=== PATIENT | female | born 1945 | race Caucasian/White ===

== ENCOUNTER 2020-02-02 09:35 | Outpatient (REF) | payer MEDICARE, OTHER, SELFPAY ==
[2020-02-02 11:00] LABS: MANUAL DIFF FLAG NO
[2020-02-02 11:08] LABS: Basophils Percent Auto 0.4 % (0-2); Eosinophils Absolute Auto 0.2 X10*3/uL (0.0-0.4); Eosinophils Percent Auto 1.8 % (0-4); Hematocrit 32.1 % (37-47); Hemoglobin 9.8 g/dl (12.0-16.0); Imm Gran Abs Auto 0.07 X10*3/uL (0.00-0.03); Imm Gran Pct Auto 0.6 % (0.0-0.4); Mean Corpuscular HGB Conc 30.5 g/dl (31.0-35.0); Mean Corpuscular Hemoglobin 27.8 pg (27.0-33.0); Mean Corpuscular Volume 91.2 fL (80-98); Monocytes Absolute Auto 0.7 X10*3/uL (0.1-1.2); Monocytes Percent Auto 6.3 % (2-11); Neutrophils Absolute Auto 7.9 X10*3/uL (2.0-8.3); Neutrophils Percent Auto 72.9 % (45-73); Platelet Count 402 X10*3/uL (160-400); Red Blood Count 3.52 X10*6/uL (4.20-5.50); Red Cell Distribution Width 17.4 % (11.0-16.0); White Blood Count 10.8 X10*3/uL (4.8-10.8)
[2020-02-02 11:32] LABS: Estimated Average Glucose 212 mg/dL
[2020-02-02 11:50] LABS: Alanine Aminotransferase 25 U/L (0-31); Albumin Level 3.7 g/dL (3.5-5.0); Alkaline Phosphatase 100 U/L (39-117); Anion Gap 14 (12-20); Aspartate Amino Transferase 39 U/L (5-31); Bilirubin Total 0.4 mg/dL (0.0-1.0); Blood Urea Nitrogen 18 mg/dL (9-16); Calcium 9.4 mg/dL (8.4-10.2); Carbon Dioxide 32 mmol/L (22-29); Chloride 97 mmol/L (96-108); Cholesterol 136 mg/dL; Estimated Glomerular Filt Rate 53; Glucose Fasting 135 mg/dL (60-99); HDL Cholesterol 41 mg/dL; LDL Cholesterol Calculated 70 mg/dl; Potassium 4.2 mmol/l (3.3-5.1); Sodium 139 mmol/L (135-145); Total Protein 7.3 g/dL (6.5-8.0); Triglycerides 128 mg/dL
[2020-02-02 12:14] LABS: Thyroid Stimulating Hormone 2.52 mIU/mL (0.32-4.0)
[2020-02-02 12:21] LABS: Creatinine Urine 33.88 mg/dL; Microalbum/Creatinine Ratio Ur 32.4 ug/mg cr
[2020-02-02 14:31] LABS: Reflex LDLD? No
[2020-02-02 14:54] LABS: Appearance Urine HAZY; Color Urine STRAW
[2020-02-02 15:03] LABS: RBC Urine 0 /HPF (0); Triple Phosphate Crystal Urine 1+ /LPF; WBC Urine 0 /HPF (0-4)
== END 2020-02-02 09:36 | disposition home or self-care (01) ==
LOC: HO.LAB 09:35
PROVIDERS: PCP Internal Medicine; Visit Provider Internal Medicine
DX: E11.9 Type 2 diabetes mellitus without complications (principal); E03.9 Hypothyroidism, unspecified; I35.0 Nonrheumatic aortic (valve) stenosis; I10 Essential (primary) hypertension; E78.00 Pure hypercholesterolemia, unspecified; K21.9 Gastro-esophageal reflux disease without esophagitis; E66.01 Morbid (severe) obesity due to excess calories; I50.21 Acute systolic (congestive) heart failure; E83.52 Hypercalcemia; Z87.448 Personal history of other diseases of urinary system
CPT/HCPCS: 36415; 80053; 80061; 81003; 81015; 82043; 83036; 84443; 85025

== ENCOUNTER → 2020-05-19 10:39 | Outpatient (BNVA) | payer MEDICARE, OTHER, SELFPAY | PROVIDERS: PCP Internal Medicine; Visit Provider Internal Medicine Cardiovascular Disease | DX: I50.30 Unspecified diastolic (congestive) heart failure (principal); R06.00 Dyspnea, unspecified; I35.0 Nonrheumatic aortic (valve) stenosis | CPT/HCPCS: 93005; 99212 ==

== ENCOUNTER → 2020-06-17 12:43 | Outpatient (BNVA) | payer MEDICARE, OTHER, SELFPAY | PROVIDERS: PCP Internal Medicine; Visit Provider Internal Medicine Cardiovascular Disease | DX: I50.33 Acute on chronic diastolic (congestive) heart failure (principal); I35.0 Nonrheumatic aortic (valve) stenosis | CPT/HCPCS: 99212 ==

== ENCOUNTER 2020-06-24 08:40 | Outpatient (REF) | payer MEDICARE, OTHER, SELFPAY ==
--- NOTE | 2020-06-24 17:24 | PFT_ITS ---
Forced vital capacity is markedly decreased. FEV1 also markedly decreased, but FEV1/FVC ratio is normal. [id number] and MVV are slightly decreased. This patient declined to have bronchodilator challenge with albuterol updraft. Forced vital capacity and residual volume are moderately decreased. Diffusion capacity is markedly decreased. CONCLUSION: These results indicate that there is no significant obstructive airway disorder. There is a moderate degree of restrictive pulmonary disorder. Clinical correlation is recommended. MD SUMAYA Bray/MICHELLE / [phone]
== END 2020-06-24 08:41 | disposition home or self-care (01) ==
LOC: HO.RESP 08:40
PROVIDERS: PCP Internal Medicine; Visit Provider Hospitalist
DX: R06.00 Dyspnea, unspecified (principal)
CPT/HCPCS: 94010; 94727; 94729; 99212

== ENCOUNTER 2020-07-12 13:51 | Outpatient (REF) | payer MEDICARE, OTHER, SELFPAY ==
[2020-07-12 14:33] LABS: Anion Gap 11 (12-20); Blood Urea Nitrogen 19 mg/dL (9-16); Calcium 9.2 mg/dL (8.4-10.2); Carbon Dioxide 36 mmol/L (22-29); Chloride 96 mmol/L (96-108); Estimated Glomerular Filt Rate 51; Glucose Random 202 mg/dL (60-115); Potassium 3.9 mmol/L (3.3-5.1); Sodium 139 mmol/L (135-145)
== END 2020-07-12 13:52 | disposition home or self-care (01) ==
LOC: HO.LAB 13:51
PROVIDERS: PCP Internal Medicine; Visit Provider Hospitalist
DX: J04.10 Acute tracheitis without obstruction (principal); J98.4 Other disorders of lung; G47.33 Obstructive sleep apnea (adult) (pediatric); I35.0 Nonrheumatic aortic (valve) stenosis; I50.30 Unspecified diastolic (congestive) heart failure; R06.00 Dyspnea, unspecified; Z87.891 Personal history of nicotine dependence; Z88.8 Allergy status to other drugs, medicaments and biological substances; Z99.89 Dependence on other enabling machines and devices
CPT/HCPCS: 36415; 80048; 99212

== ENCOUNTER → 2020-07-19 15:26 | Outpatient (BNVA) | payer MEDICARE, OTHER, SELFPAY | PROVIDERS: PCP Internal Medicine; Visit Provider Internal Medicine Cardiovascular Disease | DX: I35.0 Nonrheumatic aortic (valve) stenosis (principal); I50.33 Acute on chronic diastolic (congestive) heart failure | CPT/HCPCS: 99212 ==

== ENCOUNTER 2020-07-20 09:31 | Outpatient (REF) | payer MEDICARE, OTHER, SELFPAY ==
--- NOTE | ~2020-07-20 | CT_ITS ---
EXAMINATION: CT SOFT TISSUE NECK WITH CONTRAST CLINICAL INFORMATION: Acute tracheitis without obstruction. COMPARISON: None. TECHNIQUE: Following the intravenous administration of 100 mL of Omnipaque 350 intravenous contrast, helical imaging was performed in the axial plane with generation of coronal and sagittal reformatted images. This CT examination was performed using dose optimization techniques as appropriate, variously including the following: *Automated exposure control *Adjustment of mA and/or kV according to patient size (this includes techniques or standardized protocols for targeted exams where dose is matched to indication/reason for exam; i.e. extremities or head) *Use of iterative reconstruction technique DLP: 357 mGy-cm. FINDINGS: No cervical adenopathy is identified. The parotid glands are homogeneous in attenuation. The submandibular glands are normal. No contour abnormality or pathologic enhancement is seen within the oral cavity or pharyngeal mucosal space. The laryngeal structures are normal. Trachea is widely patent. There is no tracheal or bronchial wall thickening. The parapharyngeal fat is preserved. The carotid sheath vasculature opacify normally. No extra mucosal soft tissue mass or fluid collection is seen. No retropharyngeal fluid collection is seen. The thyroid gland is normal. The superior mediastinum is unremarkable. The lung apices are clear. The mastoid air cells and visualized portions of the paranasal sinuses are well-aerated. The temporomandibular joints are normal. No periapical disease is identified. There is grade 1 anterolisthesis C3 over C4 and C4 over C5 with C5-C6 and C6-C7 fusion. The imaged portions of the brain parenchyma are unremarkable. CT/CT soft tissue neck w con IMPRESSION: Unremarkable trachea and bifurcation. The rest of the CT soft tissue neck appears unremarkable.
== END 2020-07-20 09:32 | disposition home or self-care (01) ==
LOC: HO.CT 09:31
PROVIDERS: PCP Internal Medicine; Visit Provider Hospitalist
DX: J04.10 Acute tracheitis without obstruction (principal); J98.4 Other disorders of lung; R06.00 Dyspnea, unspecified
CPT/HCPCS: 70491; Q9967

== ENCOUNTER 2020-08-13 10:08 | Outpatient (REF) | payer MEDICARE, OTHER, SELFPAY ==
[2020-08-13 11:01] LABS: Estimated Average Glucose 189 mg/dL; Hemoglobin A1C 151.5113 umol/L; Hemoglobin A1c % 8.2 %
[2020-08-13 11:09] LABS: Glucose Fasting 179 mg/dL (60-99)
== END 2020-08-13 10:09 | disposition home or self-care (01) ==
LOC: HO.LNP 10:08
PROVIDERS: Visit Provider Internal Medicine
DX: E11.9 Type 2 diabetes mellitus without complications (principal)
CPT/HCPCS: 82947; 83036

== ENCOUNTER → 2020-08-30 10:44 | Outpatient (BNVA) | payer MEDICARE, OTHER, SELFPAY | PROVIDERS: PCP Internal Medicine; Referring Provider Internal Medicine; Visit Provider Internal Medicine Cardiovascular Disease | DX: I50.33 Acute on chronic diastolic (congestive) heart failure (principal); I35.0 Nonrheumatic aortic (valve) stenosis | CPT/HCPCS: 99212 ==

== ENCOUNTER → 2020-09-01 11:00 | Outpatient (BNVA) | payer MEDICARE, OTHER, SELFPAY | PROVIDERS: PCP Internal Medicine; Visit Provider Hospitalist | DX: G47.33 Obstructive sleep apnea (adult) (pediatric) (principal); J98.4 Other disorders of lung; I35.0 Nonrheumatic aortic (valve) stenosis; J45.40 Moderate persistent asthma, uncomplicated; Z99.89 Dependence on other enabling machines and devices | CPT/HCPCS: 99212 ==

== ENCOUNTER 2020-10-07 15:32 | Outpatient (REF) | payer MEDICARE, OTHER, SELFPAY ==
[2020-10-07 15:50] LABS: MANUAL DIFF FLAG NO
[2020-10-07 15:53] LABS: Basophils Percent Auto 0.4 % (0-2); Eosinophils Absolute Auto 0.3 X10*3/uL (0.0-0.4); Eosinophils Percent Auto 2.6 % (0-4); Hematocrit 28.2 % (37-47); Hemoglobin 8.2 g/dl (12.0-16.0); Imm Gran Abs Auto 0.07 X10*3/uL (0.00-0.03); Imm Gran Pct Auto 0.6 % (0.0-0.4); Lymphocytes Absolute Auto 1.4 X10*3/uL (1.2-4.9); Lymphocytes Percent Auto 12.6 % (20-40); Mean Corpuscular HGB Conc 29.1 g/dl (31.0-35.0); Mean Corpuscular Hemoglobin 25.9 pg (27.0-33.0); Mean Platelet Volume 9.9 fL (9.4-12.3); Monocytes Absolute Auto 0.8 X10*3/uL (0.1-1.2); Monocytes Percent Auto 6.8 % (2-11); Neutrophils Absolute Auto 8.8 X10*3/uL (2.0-8.3); Platelet Count 405 X10*3/uL (160-400); Red Blood Count 3.17 X10*6/uL (4.20-5.50); Red Cell Distribution Width 18.2 % (11.0-16.0); White Blood Count 11.4 X10*3/uL (4.8-10.8)
[2020-10-07 16:18] LABS: Iron 36 mcg/dL (30-160); Percent Iron Saturation 10 % (15-50); Total Iron Binding Capacity 367 mcg/dL (228-428); Unsaturated Iron Binding 331 ug/dL
[2020-10-07 16:59] LABS: Folate 19.6 ng/mL (> or = 4.0); Vitamin B12 945 pg/mL (200-900)
== END 2020-10-07 15:33 | disposition home or self-care (01) ==
LOC: HO.LNP 15:32
PROVIDERS: Visit Provider Internal Medicine
DX: D50.0 Iron deficiency anemia secondary to blood loss (chronic) (principal)
CPT/HCPCS: 82607; 82746; 83540; 85025

== ENCOUNTER 2020-12-09 16:46 | Outpatient (REF) | payer MEDICARE, OTHER, SELFPAY ==
[2020-12-09 17:35] LABS: Iron 49 mcg/dL (30-160)
[2020-12-09 18:24] LABS: Percent Iron Saturation 15 % (15-50); Total Iron Binding Capacity 327 mcg/dL (228-428); Unsaturated Iron Binding 278 ug/dL
== END 2020-12-09 16:47 | disposition home or self-care (01) ==
LOC: HO.LNP 16:46
PROVIDERS: Visit Provider Internal Medicine
DX: E61.1 Iron deficiency (principal)
CPT/HCPCS: 83540

== ENCOUNTER → 2020-12-14 10:55 | Outpatient (BNVA) | payer MEDICARE, OTHER, SELFPAY | PROVIDERS: PCP Internal Medicine; Visit Provider Hospitalist | DX: J45.40 Moderate persistent asthma, uncomplicated (principal); J98.4 Other disorders of lung; G47.33 Obstructive sleep apnea (adult) (pediatric); Z99.89 Dependence on other enabling machines and devices; I35.0 Nonrheumatic aortic (valve) stenosis | CPT/HCPCS: 99212 ==

== ENCOUNTER 2021-02-01 10:45 | Outpatient (REF) | payer MEDICARE, OTHER, SELFPAY ==
[2021-02-01 10:48] LABS: MANUAL DIFF FLAG NO
[2021-02-01 11:13] LABS: Basophils Absolute Auto 0.1 X10*3/uL (0.0-0.2); Basophils Percent Auto 0.5 % (0-2); Eosinophils Absolute Auto 0.2 X10*3/uL (0.0-0.4); Eosinophils Percent Auto 2.2 % (0-4); Hematocrit 38.6 % (37-47); Imm Gran Abs Auto 0.04 X10*3/uL (0.00-0.03); Imm Gran Pct Auto 0.4 % (0.0-0.4); Lymphocytes Absolute Auto 1.8 X10*3/uL (1.2-4.9); Lymphocytes Percent Auto 17.8 % (20-40); Mean Corpuscular HGB Conc 31.1 g/dl (31.0-35.0); Mean Corpuscular Hemoglobin 30.2 pg (27.0-33.0); Mean Platelet Volume 10.4 fL (9.4-12.3); Monocytes Absolute Auto 0.7 X10*3/uL (0.1-1.2); Monocytes Percent Auto 6.6 % (2-11); Neutrophils Absolute Auto 7.1 X10*3/uL (2.0-8.3); Neutrophils Percent Auto 72.5 % (45-73); Platelet Count 327 X10*3/uL (160-400); Red Blood Count 3.98 X10*6/uL (4.20-5.50); Red Cell Distribution Width 16.8 % (11.0-16.0); White Blood Count 9.8 X10*3/uL (4.8-10.8)
[2021-02-01 11:21] LABS: Estimated Average Glucose 192 mg/dL; Hemoglobin A1c % 8.3 %
[2021-02-01 11:36] LABS: Alanine Aminotransferase 27 U/L (0-31); Albumin Level 3.8 g/dL (3.5-5.0); Alkaline Phosphatase 94 U/L (39-117); Anion Gap 15 (12-20); Aspartate Amino Transferase 31 U/L (5-31); Bilirubin Total 0.4 mg/dL (0.0-1.0); Blood Urea Nitrogen 23 mg/dL (9-16); Calcium 9.5 mg/dL (8.4-10.2); Carbon Dioxide 33 mmol/L (22-29); Chloride 97 mmol/L (96-108); Cholesterol 154 mg/dL; Estimated Glomerular Filt Rate 47; Glucose Fasting 118 mg/dL (60-99); HDL Cholesterol 43 mg/dL; LDL Cholesterol Calculated 88 mg/dl; Potassium 3.7 mmol/L (3.3-5.1); Sodium 141 mmol/L (135-145); Total Protein 7.4 g/dL (6.5-8.0); Triglycerides 115 mg/dL
[2021-02-01 11:45] LABS: TSH reflex Free T4 4.28 uIU/mL (0.32-4.0)
[2021-02-01 12:25] LABS: Creatinine Urine 58.96 mg/dL; Microalbum/Creatinine Ratio Ur 27.1 ug/mg cr
== END 2021-02-01 10:46 | disposition home or self-care (01) ==
LOC: HO.LNP 10:45
PROVIDERS: Visit Provider Internal Medicine
DX: E11.9 Type 2 diabetes mellitus without complications (principal); E03.9 Hypothyroidism, unspecified; I35.9 Nonrheumatic aortic valve disorder, unspecified; I10 Essential (primary) hypertension; E78.00 Pure hypercholesterolemia, unspecified
CPT/HCPCS: 80053; 80061; 81003; 82043; 83036; 84439; 84443; 85025

== ENCOUNTER → 2021-05-12 10:21 | Outpatient (BNVA) | payer MEDICARE, OTHER, SELFPAY | PROVIDERS: PCP Internal Medicine; Visit Provider Internal Medicine | DX: Z51.81 Encounter for therapeutic drug level monitoring (principal); M48.062 Spinal stenosis, lumbar region with neurogenic claudication; M19.011 Primary osteoarthritis, right shoulder; M19.012 Primary osteoarthritis, left shoulder; M10.9 Gout, unspecified; G89.4 Chronic pain syndrome; Z98.1 Arthrodesis status | CPT/HCPCS: 99202 ==

== ENCOUNTER → 2021-05-23 12:53 | Outpatient (BNVA) | payer MEDICARE, OTHER, SELFPAY | PROVIDERS: PCP Internal Medicine; Visit Provider Hospitalist | DX: G47.33 Obstructive sleep apnea (adult) (pediatric) (principal); J98.4 Other disorders of lung; J45.40 Moderate persistent asthma, uncomplicated; I35.0 Nonrheumatic aortic (valve) stenosis; Z99.89 Dependence on other enabling machines and devices | CPT/HCPCS: 99212 ==

== ENCOUNTER → 2021-05-27 08:31 | Outpatient (BNVA) | payer MEDICARE, OTHER, SELFPAY | PROVIDERS: PCP Internal Medicine; Visit Provider Internal Medicine | DX: Z51.81 Encounter for therapeutic drug level monitoring (principal); F11.20 Opioid dependence, uncomplicated; M48.062 Spinal stenosis, lumbar region with neurogenic claudication; G89.4 Chronic pain syndrome; Z98.1 Arthrodesis status | CPT/HCPCS: 99212 ==

== ENCOUNTER → 2021-06-23 08:03 | Outpatient (BNVA) | payer MEDICARE, OTHER, SELFPAY | PROVIDERS: PCP Internal Medicine; Visit Provider Internal Medicine | DX: Z51.81 Encounter for therapeutic drug level monitoring (principal); F11.20 Opioid dependence, uncomplicated | CPT/HCPCS: 99211 ==

== ENCOUNTER 2021-06-23 09:17 | Outpatient (REF) | payer MEDICARE, OTHER, SELFPAY ==
[2021-06-24 20:37] LABS: SARS-COV-2 IgG Spike, Semi-Qnt 21.42 index (<1.00)
[2021-06-24 22:42] LABS: Immunoglobulin E 389 kU/L (<OR=114)
== END 2021-06-23 09:18 | disposition home or self-care (01) ==
LOC: HO.10HDL 09:17
PROVIDERS: Absent Provider Internal Medicine; Visit Provider Hospitalist
DX: J45.40 Moderate persistent asthma, uncomplicated (principal); Z20.822 Contact with and (suspected) exposure to COVID-19
CPT/HCPCS: 36415; 82785; 86769; 99211

== ENCOUNTER → 2021-07-18 10:54 | Outpatient (BNVA) | payer MEDICARE, OTHER, SELFPAY | PROVIDERS: PCP Internal Medicine; Visit Provider Internal Medicine | DX: Z51.81 Encounter for therapeutic drug level monitoring (principal); F11.20 Opioid dependence, uncomplicated; M48.062 Spinal stenosis, lumbar region with neurogenic claudication; G89.4 Chronic pain syndrome; Z98.1 Arthrodesis status | CPT/HCPCS: 99212 ==

== ENCOUNTER → 2021-08-11 12:46 | Outpatient (BNVA) | payer MEDICARE, OTHER, SELFPAY | PROVIDERS: PCP Internal Medicine; Visit Provider Internal Medicine | DX: Z51.81 Encounter for therapeutic drug level monitoring (principal); F11.20 Opioid dependence, uncomplicated | CPT/HCPCS: 99211 ==

== ENCOUNTER → 2021-09-12 11:36 | Outpatient (BNVA) | payer MEDICARE, OTHER, SELFPAY | PROVIDERS: PCP Internal Medicine; Visit Provider Internal Medicine | DX: Z51.81 Encounter for therapeutic drug level monitoring (principal); F11.20 Opioid dependence, uncomplicated; M47.816 Spondylosis without myelopathy or radiculopathy, lumbar region; G89.4 Chronic pain syndrome | CPT/HCPCS: 99212 ==

== ENCOUNTER → 2021-09-22 08:54 | Outpatient (BNVA) | payer MEDICARE, OTHER, SELFPAY | PROVIDERS: PCP Internal Medicine; Visit Provider Hospitalist | DX: J45.40 Moderate persistent asthma, uncomplicated (principal); J98.4 Other disorders of lung; G47.33 Obstructive sleep apnea (adult) (pediatric); I35.0 Nonrheumatic aortic (valve) stenosis; Z79.899 Other long term (current) drug therapy; Z99.89 Dependence on other enabling machines and devices | CPT/HCPCS: 99212 ==

== ENCOUNTER → 2021-10-10 10:47 | Outpatient (BNVA) | payer MEDICARE, OTHER, SELFPAY | PROVIDERS: PCP Internal Medicine; Visit Provider Internal Medicine | DX: G89.4 Chronic pain syndrome (principal); M47.816 Spondylosis without myelopathy or radiculopathy, lumbar region; M19.011 Primary osteoarthritis, right shoulder; M19.012 Primary osteoarthritis, left shoulder; Z79.891 Long term (current) use of opiate analgesic; Z98.1 Arthrodesis status | CPT/HCPCS: 99212 ==

== ENCOUNTER 2021-10-26 06:21 | Outpatient (REF) | payer MEDICARE, OTHER, SELFPAY ==
--- NOTE | ~2021-10-26 | FL_ITS ---
EXAMINATION: XR FLUOROSCOPY WITH IMAGES CLINICAL INFORMATION: M47.816 - Spondylosis without myelopathy or radiculopathy, lumbar region COMPARISON: MR lumbar spine 11/05/2021 TECHNIQUE: Fluoroscopy performed by pain management physician. Fluoroscopy time: 45 target Cumulative dose: 36.88 mGy Images: 4 FINDINGS: There are spinal needles overlying the outer right L3, L4, and L5 neural foramen and outer left L5 foramen. There is contrast seen in the respective nerve sheaths. Some early transforaminal epidural extension is suggested. No visible vascular communication. FL/FL guidance in treatment room IMPRESSION: Fluoroscopy for pain management procedures.
[2021-10-26 10:54] LABS: MANUAL DIFF FLAG NO
[2021-10-26 11:40] LABS: Basophils Percent Auto 0.3 % (0-2); Eosinophils Absolute Auto 0.3 X10*3/uL (0.0-0.4); Eosinophils Percent Auto 2.1 % (0-4); Hematocrit 37.5 % (37.0-47.0); Hemoglobin 12.4 g/dl (12.0-16.0); Imm Gran Abs Auto 0.07 X10*3/uL (0.00-0.03); Imm Gran Pct Auto 0.5 % (0.0-0.4); Lymphocytes Absolute Auto 1.6 X10*3/uL (1.2-4.9); Lymphocytes Percent Auto 12.5 % (20-40); Mean Corpuscular HGB Conc 33.1 g/dl (31.0-35.0); Mean Corpuscular Hemoglobin 33.3 pg (27.0-33.0); Mean Corpuscular Volume 100.8 fL (80.0-98.0); Mean Platelet Volume 10.5 fL (9.4-12.3); Monocytes Absolute Auto 0.8 X10*3/uL (0.1-1.2); Monocytes Percent Auto 5.8 % (2-11); Neutrophils Absolute Auto 10.2 x10*3/uL (2.0-8.3); Neutrophils Percent Auto 78.8 % (45-73); Platelet Count 289 X10*3/uL (160-400); Red Blood Count 3.72 X10*6/uL (4.20-5.50)
== END 2021-10-26 06:22 | disposition home or self-care (01) ==
LOC: HO.RADIR 06:21
PROVIDERS: Hospitalist; Visit Provider Internal Medicine
DX: M47.816 Spondylosis without myelopathy or radiculopathy, lumbar region (principal); R06.00 Dyspnea, unspecified
CPT/HCPCS: 36415; 64493; 64494; 85025

== ENCOUNTER → 2021-10-28 11:13 | Outpatient (BNVA) | payer MEDICARE, OTHER, SELFPAY | PROVIDERS: PCP Internal Medicine; Visit Provider Internal Medicine | DX: M48.062 Spinal stenosis, lumbar region with neurogenic claudication (principal); M19.011 Primary osteoarthritis, right shoulder; M19.012 Primary osteoarthritis, left shoulder; M54.16 Radiculopathy, lumbar region; Z79.891 Long term (current) use of opiate analgesic; Z98.1 Arthrodesis status | CPT/HCPCS: 99212 ==

== ENCOUNTER 2021-11-25 06:16 | Outpatient (REF) | payer MEDICARE, OTHER, SELFPAY ==
--- NOTE | ~2021-11-25 | FL_ITS ---
EXAMINATION: XR FLUOROSCOPY WITH IMAGES CLINICAL INFORMATION: M54.16 - Radiculopathy, lumbar region COMPARISON: MR lumbar spine 06/08/2021 TECHNIQUE: Fluoroscopy performed by Dr. Hector Scherer. Fluoroscopy time: 0.5 minutes. Cumulative Dose: 38.5 mGy. DAP: 0.595 mGy-cm2. Images: 5. FINDINGS: There is spinal needle at the mid lumbar interlaminar space. Epidural contrast is present. No intrathecal contrast or vascular communication demonstrated. There are degenerative changes lumbar spine with disc narrowing and vertebral spurring. FL/FL guidance in treatment room IMPRESSION: Fluoroscopy for pain management procedure.
== END 2021-11-25 06:17 | disposition home or self-care (01) ==
LOC: HO.RADIR 06:16
PROVIDERS: Visit Provider Internal Medicine
DX: M54.16 Radiculopathy, lumbar region (principal)
CPT/HCPCS: 62323; J1040; J1100

== ENCOUNTER 2022-01-20 12:18 | Outpatient (REF) | payer MEDICARE, OTHER, SELFPAY ==
[2022-01-20 12:48] LABS: MANUAL DIFF FLAG NO
[2022-01-20 13:02] LABS: Basophils Percent Auto 0.4 % (0-2); Eosinophils Absolute Auto 0.2 X10*3/uL (0.0-0.4); Eosinophils Percent Auto 2.4 % (0-4); Hematocrit 36.8 % (37.0-47.0); Hemoglobin 11.7 g/dl (12.0-16.0); Imm Gran Abs Auto 0.06 X10*3/uL (0.00-0.03); Imm Gran Pct Auto 0.6 % (0.0-0.4); Lymphocytes Absolute Auto 1.6 X10*3/uL (1.2-4.9); Lymphocytes Percent Auto 16.5 % (20-40); Mean Corpuscular HGB Conc 31.8 g/dl (31.0-35.0); Mean Corpuscular Hemoglobin 32.2 pg (27.0-33.0); Mean Corpuscular Volume 101.4 fL (80.0-98.0); Monocytes Absolute Auto 0.7 X10*3/uL (0.1-1.2); Monocytes Percent Auto 7.6 % (2-11); Neutrophils Percent Auto 72.5 % (45-73); Platelet Count 282 X10*3/uL (160-400); Red Blood Count 3.63 X10*6/uL (4.20-5.50); Red Cell Distribution Width 15.2 % (11.0-16.0); White Blood Count 9.7 X10*3/uL (4.8-10.8)
[2022-01-20 13:27] LABS: Albumin Level 3.5 g/dL (3.5-5.0); Anion Gap 17 (12-20); Blood Urea Nitrogen 19 mg/dL (9-16); Calcium 9.5 mg/dL (8.4-10.2); Carbon Dioxide 29 mmol/L (22-29); Chloride 96 mmol/L (96-108); Estimated Glomerular Filt Rate 37; Magnesium 1.9 mg/dL (1.6-2.6); Phosphorus 3.4 mg/dL (2.7-4.5); Sodium 138 mmol/L (135-145)
[2022-01-20 13:48] LABS: Vitamin D 25-OH Total 30.5 ng/mL (>30)
[2022-01-20 13:51] LABS: Appearance Urine Clear; Color Urine Yellow; Glucose Urine UA Negative (Negative); Leukocyte Esterase Urine Small (1+) (Negative); Nitrite Urine Negative (Negative); Specific Gravity - Urine 1.015 (1.005-1.025); UMIC TRIGGER UA YES; Urine Blood Negative (Negative); Urine Ketones Negative (Negative); Urine Protein Negative (Neg-Trace)
[2022-01-20 14:07] LABS: Bacteria Urine Trace (None Seen); RBC Urine 0-2 /HPF (0-2); WBC Urine 0-5 /HPF (0-5)
[2022-01-20 14:23] LABS: Creatinine Urine 101.47 mg/dL; Microalbum/Creatinine Ratio Ur 39.4 ug/mg cr; Protein/Creatinine Ratio, Ur 0.11 (<0.2); Total Protein Urine Random 11 mg/dL (<12)
[2022-01-23 17:25] LABS: Calcium (PTHI) 9.5 mg/dL (8.6-10.4); PTHI 112 pg/mL (16-77)
== END 2022-01-20 12:19 | disposition home or self-care (01) ==
LOC: HO.LAB 12:18
PROVIDERS: PCP Internal Medicine; Visit Provider Internal Medicine Nephrology
DX: I50.1 Left ventricular failure, unspecified (principal); N18.2 Chronic kidney disease, stage 2 (mild)
CPT/HCPCS: 36415; 80051; 81001; 82040; 82043; 82306; 82310; 82565; 83735; 83970; 84100; 84156; 84520; 85025; 87086

== ENCOUNTER 2022-02-07 10:58 | Outpatient (REF) | payer MEDICARE, OTHER, SELFPAY ==
[2022-02-07 11:05] LABS: MANUAL DIFF FLAG NO
[2022-02-07 11:45] LABS: Cholesterol 177 mg/dL; HDL Cholesterol 47 mg/dL; Iron 68 mcg/dL (30-160); LDL Cholesterol Calculated 95 mg/dl; Percent Iron Saturation 21 % (15-50); Total Iron Binding Capacity 328 mcg/dL (228-428); Triglycerides 177 mg/dL; Unsaturated Iron Binding 260 ug/dL
[2022-02-07 11:51] LABS: Estimated Average Glucose 209 mg/dL; Hemoglobin A1c % 8.9 %
[2022-02-07 12:06] LABS: Basophils Absolute Auto 0.1 X10*3/uL (0.0-0.2); Basophils Percent Auto 0.5 % (0-2); Eosinophils Absolute Auto 0.4 X10*3/uL (0.0-0.4); Eosinophils Percent Auto 3.2 % (0-4); Hematocrit 38.9 % (37.0-47.0); Hemoglobin 12.3 g/dl (12.0-16.0); Imm Gran Abs Auto 0.05 X10*3/uL (0.00-0.03); Imm Gran Pct Auto 0.4 % (0.0-0.4); Lymphocytes Absolute Auto 3.8 X10*3/uL (1.2-4.9); Lymphocytes Percent Auto 30.9 % (20-40); Mean Corpuscular HGB Conc 31.6 g/dl (31.0-35.0); Mean Corpuscular Hemoglobin 32.3 pg (27.0-33.0); Mean Corpuscular Volume 102.1 fL (80.0-98.0); Mean Platelet Volume 10.4 fL (9.4-12.3); Monocytes Percent Auto 7.7 % (2-11); Neutrophils Absolute Auto 7.1 x10*3/uL (2.0-8.3); Neutrophils Percent Auto 57.3 % (45-73); Platelet Count 319 X10*3/uL (160-400); Red Blood Count 3.81 X10*6/uL (4.20-5.50); Red Cell Distribution Width 14.9 % (11.0-16.0); White Blood Count 12.4 X10*3/uL (4.8-10.8)
== END 2022-02-07 10:59 | disposition home or self-care (01) ==
LOC: HO.LNP 10:58
PROVIDERS: Visit Provider Internal Medicine
DX: Z00.00 Encounter for general adult medical examination without abnormal findings (principal); E03.9 Hypothyroidism, unspecified; E11.9 Type 2 diabetes mellitus without complications; E78.00 Pure hypercholesterolemia, unspecified; I11.0 Hypertensive heart disease with heart failure; I50.21 Acute systolic (congestive) heart failure; E55.9 Vitamin D deficiency, unspecified; D50.0 Iron deficiency anemia secondary to blood loss (chronic)
CPT/HCPCS: 80061; 83036; 83540; 85025

== ENCOUNTER 2022-02-08 06:13 | Outpatient (REF) | payer MEDICARE, OTHER, SELFPAY ==
--- NOTE | ~2022-02-08 | FL_ITS ---
EXAMINATION: XR FLUOROSCOPY WITH IMAGES CLINICAL INFORMATION: Bilateral trochanteric bursitis, left and right hips. COMPARISON: None. TECHNIQUE: Fluoroscopy performed by Dr. Hector Scherer. Fluoroscopy time bilateral exam: 1.3 minutes. Cumulative Dose bilateral exam: 32.9 mGy. DAP bilateral exam: 4.32 Gy-cm2. Images: 2 views on left; 2 views on right. Total of 4 views. FINDINGS: There are spinal needles overlying the caudal aspect of the bilateral greater trochanter with contrast seen in the adjacent soft tissues. No visible vascular communication. There are 2 views also obtained of the bilateral ischial tuberosities with contrast seen along soft tissue planes, possibly bilateral hamstrings. No visible vascular communication. FL/FL guidance in treatment room IMPRESSION: Fluoroscopy for pain management procedures.
--- NOTE | ~2022-02-08 | FL_ITS ---
EXAMINATION: XR FLUOROSCOPY WITH IMAGES CLINICAL INFORMATION: Bilateral trochanteric bursitis, left and right hips. COMPARISON: None. TECHNIQUE: Fluoroscopy performed by Dr. Hector Scherer. Fluoroscopy time bilateral exam: 1.3 minutes. Cumulative Dose bilateral exam: 32.9 mGy. DAP bilateral exam: 4.32 Gy-cm2. Images: 2 views on left; 2 views on right. Total of 4 views. FINDINGS: There are spinal needles overlying the caudal aspect of the bilateral greater trochanter with contrast seen in the adjacent soft tissues. No visible vascular communication. There are 2 views also obtained of the bilateral ischial tuberosities with contrast seen along soft tissue planes, possibly bilateral hamstrings. No visible vascular communication. FL/FL guidance in treatment room IMPRESSION: Fluoroscopy for pain management procedures.
== END 2022-02-08 06:14 | disposition home or self-care (01) ==
LOC: CF 06:13
PROVIDERS: Visit Provider Internal Medicine
DX: M70.61 Trochanteric bursitis, right hip (principal); M70.70 Other bursitis of hip, unspecified hip
CPT/HCPCS: 20610; J1020; J1040; J2795; J3300

== ENCOUNTER 2022-02-22 06:05 | Outpatient (REF) | payer MEDICARE, OTHER, SELFPAY ==
--- NOTE | ~2022-02-22 | FL_ITS ---
EXAMINATION: XR FLUOROSCOPY WITH IMAGES CLINICAL INFORMATION: Osteoarthritis right shoulder. COMPARISON: None. TECHNIQUE: Fluoroscopy performed by Dr. Hector Scherer. Fluoroscopy time: 0.1 minutes. Cumulative Dose: 2.95 mGy. DAP: 0.368 Gy-cm2. Images: 3. FINDINGS: Intraoperative C-arm imaging provided. On the provided imaging, there appears to be needle and contrast in the subcoracoid area and needle and contrast within the region of the acromioclavicular joint. FL/FL guidance in treatment room IMPRESSION: Fluoroscopy performed for pain management procedure.
--- NOTE | ~2022-02-22 | FL_ITS ---
EXAMINATION: XR FLUOROSCOPY WITH IMAGES CLINICAL INFORMATION: Osteoarthritis right shoulder. COMPARISON: None. TECHNIQUE: Fluoroscopy performed by Dr. Hector Scherer. Fluoroscopy time: 0.1 minutes. Cumulative Dose: 2.95 mGy. DAP: 0.368 Gy-cm2. Images: 3. FINDINGS: Intraoperative C-arm imaging provided. On the provided imaging, there appears to be needle and contrast in the subcoracoid area and needle and contrast within the region of the acromioclavicular joint. FL/FL guidance in treatment room IMPRESSION: Fluoroscopy performed for pain management procedure.
== END 2022-02-22 06:06 | disposition home or self-care (01) ==
LOC: CF 06:05
PROVIDERS: Visit Provider Internal Medicine
DX: M19.011 Primary osteoarthritis, right shoulder (principal); M19.012 Primary osteoarthritis, left shoulder
CPT/HCPCS: 64418

== ENCOUNTER 2022-02-23 11:18 | Outpatient (REF) | payer MEDICARE, OTHER, SELFPAY ==
[2022-02-23 11:38] LABS: Appearance Urine Clear; Color Urine Yellow; Glucose Urine UA Negative (Negative); Leukocyte Esterase Urine Trace (Negative); Nitrite Urine Negative (Negative); PH 6.5 (5.0-9.0); UMIC TRIGGER UA YES; Urine Blood Negative (Negative); Urine Ketones Negative (Negative); Urine Protein Negative (Neg-Trace)
[2022-02-23 11:41] LABS: Bacteria Urine None Seen (None Seen); Hyaline Casts Urine 0-2 /LPF (0-2); RBC Urine 0-2 /HPF (0-2); WBC Urine 0-5 /HPF (0-5)
[2022-02-23 13:09] LABS: Creatinine Urine 64.48 mg/dL; Microalbum/Creatinine Ratio Ur 7.7 ug/mg cr
== END 2022-02-23 11:19 | disposition home or self-care (01) ==
LOC: HO.LNP 11:18
PROVIDERS: Visit Provider Internal Medicine
DX: E11.9 Type 2 diabetes mellitus without complications (principal); I10 Essential (primary) hypertension
CPT/HCPCS: 81001; 82043

== ENCOUNTER → 2022-03-21 09:44 | Outpatient (BNVA) | payer MEDICARE, OTHER, SELFPAY | PROVIDERS: PCP Internal Medicine; Visit Provider Nurse Practitioner Family | DX: G89.4 Chronic pain syndrome (principal); Z98.1 Arthrodesis status; M19.011 Primary osteoarthritis, right shoulder; M19.012 Primary osteoarthritis, left shoulder; M54.16 Radiculopathy, lumbar region; M47.816 Spondylosis without myelopathy or radiculopathy, lumbar region | CPT/HCPCS: 99212 ==

== ENCOUNTER 2022-03-28 07:11 | Day surgery (SDC) | payer MEDICARE, OTHER, SELFPAY ==
--- NOTE | 2022-03-27 09:58 | HO.ANESPROP2 ---
Documented by User: Linda Stephens NP 03/27/22 10:10 HPI - Anesthesia Eval Consult details Narrative: 76yo F for Colonoscopy s/p TAVR at [facility] [place] 2020 - awaiting info chronic prn opioids Multiple med allergies PMFSH Active Problems Active Problems: All Active Problems (Updated 02/22/22 @ 11:35 by Hector Scherer MD) Bilateral shoulder pain (Acute) Ischial bursitis (Acute) Greater trochanteric bursitis of both hips (Acute) Lumbar radiculopathy (Acute) Dyspnea (Acute) Lumbar spondylosis (Acute) Chronic pain syndrome (Acute) Status post cervical spinal fusion (Acute) Gouty arthritis (Acute) Arthritis of both glenohumeral joints (Acute) Neurogenic claudication due to lumbar spinal stenosis (Acute) Asthma (Acute) CLEVE on CPAP (Acute) Chronic restrictive lung disease (Acute) Tracheitis (Acute) Severe aortic stenosis (Acute) Diastolic CHF (Acute) Dyspnea (Acute) Past Medical History Medical History Arthritis of both glenohumeral joints Asthma Chronic pain syndrome Chronic restrictive lung disease Dyspnea Dyspnea Gouty arthritis Neurogenic claudication due to lumbar spinal stenosis CLEVE on CPAP Tracheitis Family History Family History Father HTN (hypertension) Stroke Diabetes Mother Atrial fibrillation HTN (hypertension) Surgical History Surgical History History of cholecystectomy History of eyelid surgery History of knee replacement Status post cervical spinal fusion Social History Social History Patient Tobacco Use Status: Former Tobacco user Tobacco use type: Cigarette Years Smoked: 20 years Second Hand Smoke Exposure: No Use of substances other than those prescribed or required for medical reasons: No Are you DNR?: No Advance Directives: No Advance Directives Information Provided: Yes Advance Directives on File: No Meds Allergies Allergy/AdvReac Type Severity Reaction Status Date / Time cephalexin [From Keflex] Allergy Severe Itching Verified 03/21/22 09:56 pravastatin [Pravachol] Allergy Severe cramps Verified 03/21/22 09:56 bacitracin AdvReac Severe eye Verified 03/21/22 09:56 swelling dexamethasone [TobraDex] AdvReac Severe redness Verified 03/21/22 09:56 swelling tobramycin [TobraDex] AdvReac Severe redness Verified 03/21/22 09:56 swelling Sulfa (Sulfonamide AdvReac Intermediate GI upset Verified 03/21/22 09:56 Antibiotics) atorvastatin [From Lipitor] AdvReac Unknown Unverified 03/27/22 07:34 Beef Containing Products AdvReac Unknown Unverified 03/27/22 07:34 erythromycin base AdvReac Unknown Unverified 03/27/22 07:34 Penicillins [PCN] AdvReac Unknown Unverified 03/27/22 07:34 sulfacetamide AdvReac Unknown Unverified 03/27/22 07:34 [From Sulfacet-R] sulfur [From Sulfacet-R] AdvReac Unknown Unverified 03/27/22 07:34 topiramate [From Topamax] AdvReac Unknown Unverified 03/27/22 07:34 Home Medications Medication Instructions Recorded Confirmed Last Taken Type Saccharomyces boulardii 250 mg 250 mg PO BID 05/19/20 12/23/21 Unknown History capsule (Florastor) albuterol sulfate 90 mcg/actuation 2 puff PO Q4H 05/19/20 12/23/21 Unknown History aerosol inhaler atorvastatin 20 mg tablet 20 mg PO DAILY 05/19/20 12/23/21 Unknown History insulin glargine 100 unit/mL (3 unit subcut 05/19/20 12/23/21 Unknown History mL) subcutaneous pen levothyroxine 75 mcg tablet 75 mcg PO DAILY 05/19/20 12/23/21 Unknown History meclizine 25 mg tablet 25 mg PO BID PRN 05/19/20 12/23/21 Unknown History omeprazole 20 mg capsule,delayed 20 mg PO DAILY 05/19/20 12/23/21 Unknown History release cholecalciferol (vitamin D3) 25 25 mcg PO DAILY 06/24/20 12/23/21 Unknown History mcg (1,000 unit) capsule (Vitamin D3) fluticasone propionate 220 2 puff inhalation BID 06/24/20 12/23/21 Unknown History mcg/actuation HFA aerosol inhaler sitagliptin phosphate 100 mg tablet 100 mg PO DAILY 06/24/20 12/23/21 Unknown History tiotropium bromide 1.25 inhalation 06/24/20 12/23/21 Unknown History mcg/actuation mist for inhalation potassium chloride 10 mEq 10 meq PO BID 08/30/20 12/23/21 Unknown History tablet,extended release nystatin 100,000 unit/gram topical 1 appl topical BID 09/01/20 12/23/21 Unknown History powder allopurinol 100 mg tablet 100 mg PO DAILY 09/12/21 12/23/21 Unknown History mepolizumab 100 mg subcutaneous 100 mg subcut Q4W 09/12/21 12/23/21 Unknown History solution duloxetine 40 mg capsule,delayed 60 mg PO DAILY 09/22/21 12/23/21 Unknown History release gabapentin 400 mg capsule 400 mg PO BEDTIME 10/10/21 12/23/21 Unknown History valsartan 40 mg tablet mg PO 10/28/21 12/23/21 03/28/22 History gabapentin 100 mg capsule 100 mg PO .AM 12/23/21 12/23/21 Unknown History duloxetine 60 mg capsule,delayed 60 mg PO DAILY 03/21/22 Unknown History release Exam Exam Date and Time: March 27, 2022 0958 Pertinent Lab Results Pertinent Lab Results: Laboratory Tests 01/20/22 02/07/22 12:47 Unknown WBC 12.4 H Hgb 12.3 Hct 38.9 Plt Count 319 Sodium 138 Potassium 4.0 Chloride 96 Carbon Dioxide 29 BUN 19 H Creatinine 1.37 Assessment and Plan Assessment Anesthesia Assessment: Chart Reviewed Documented by User: Mac Alcantara MD 03/28/22 17:12 HPI - Anesthesia Eval Consult details Narrative: 76yo F for Colonoscopy s/p TAVR at [facility] [place] 2020 - chronic prn opioids Multiple med allergies PMFSH Past Medical History Medical History Arthritis of both glenohumeral joints Asthma Chronic pain syndrome Chronic restrictive lung disease Dyspnea Dyspnea Gouty arthritis Neurogenic claudication due to lumbar spinal stenosis CLEVE on CPAP Tracheitis Family History Family History Father HTN (hypertension) Stroke Diabetes Mother Atrial fibrillation HTN (hypertension) Family history of problems with anesthesia: No Surgical History Surgical History History of cholecystectomy History of eyelid surgery History of knee replacement Status post cervical spinal fusion History of Problems with Anesthesia: No Social History Social History Patient Tobacco Use Status: Former Tobacco user Tobacco use type: Cigarette Years Smoked: 20 years Second Hand Smoke Exposure: No Use of substances other than those prescribed or required for medical reasons: No Are you DNR?: No Advance Directives: No Advance Directives Information Provided: Yes Advance Directives on File: No Meds Allergies Allergy/AdvReac Type Severity Reaction Status Date / Time cephalexin [From Keflex] Allergy Severe Itching Verified 03/21/22 09:56 pravastatin [Pravachol] Allergy Severe cramps Verified 03/21/22 09:56 bacitracin AdvReac Severe eye Verified 03/21/22 09:56 swelling dexamethasone [TobraDex] AdvReac Severe redness Verified 03/21/22 09:56 swelling tobramycin [TobraDex] AdvReac Severe redness Verified 03/21/22 09:56 swelling Sulfa (Sulfonamide AdvReac Intermediate GI upset Verified 03/21/22 09:56 Antibiotics) atorvastatin [From Lipitor] AdvReac Unknown Unverified 03/27/22 07:34 Beef Containing Products AdvReac Unknown Unverified 03/27/22 07:34 erythromycin base AdvReac Unknown Unverified 03/27/22 07:34 Penicillins [PCN] AdvReac Unknown Unverified 03/27/22 07:34 sulfacetamide AdvReac Unknown Unverified 03/27/22 07:34 [From Sulfacet-R] sulfur [From Sulfacet-R] AdvReac Unknown Unverified 03/27/22 07:34 topiramate [From Topamax] AdvReac Unknown Unverified 03/27/22 07:34 Home Medications Medication Instructions Recorded Confirmed Last Taken Type Saccharomyces boulardii 250 mg 250 mg PO BID 05/19/20 12/23/21 Unknown History capsule (Florastor) albuterol sulfate 90 mcg/actuation 2 puff PO Q4H 05/19/20 12/23/21 Unknown History aerosol inhaler atorvastatin 20 mg tablet 20 mg PO DAILY 05/19/20 12/23/21 Unknown History insulin glargine 100 unit/mL (3 unit subcut 05/19/20 12/23/21 Unknown History mL) subcutaneous pen levothyroxine 75 mcg tablet 75 mcg PO DAILY 05/19/20 12/23/21 Unknown History meclizine 25 mg tablet 25 mg PO BID PRN 05/19/20 12/23/21 Unknown History omeprazole 20 mg capsule,delayed 20 mg PO DAILY 05/19/20 12/23/21 Unknown History release cholecalciferol (vitamin D3) 25 25 mcg PO DAILY 06/24/20 12/23/21 Unknown History mcg (1,000 unit) capsule (Vitamin D3) fluticasone propionate 220 2 puff inhalation BID 06/24/20 12/23/21 Unknown History mcg/actuation HFA aerosol inhaler sitagliptin phosphate 100 mg tablet 100 mg PO DAILY 06/24/20 12/23/21 Unknown History tiotropium bromide 1.25 inhalation 06/24/20 12/23/21 Unknown History mcg/actuation mist for inhalation potassium chloride 10 mEq 10 meq PO BID 08/30/20 12/23/21 Unknown History tablet,extended release nystatin 100,000 unit/gram topical 1 appl topical BID 09/01/20 12/23/21 Unknown History powder allopurinol 100 mg tablet 100 mg PO DAILY 09/12/21 12/23/21 Unknown History mepolizumab 100 mg subcutaneous 100 mg subcut Q4W 09/12/21 12/23/21 Unknown History solution duloxetine 40 mg capsule,delayed 60 mg PO DAILY 09/22/21 12/23/21 Unknown History release gabapentin 400 mg capsule 400 mg PO BEDTIME 10/10/21 12/23/21 Unknown History valsartan 40 mg tablet mg PO 10/28/21 12/23/21 03/28/22 History gabapentin 100 mg capsule 100 mg PO .AM 12/23/21 12/23/21 Unknown History duloxetine 60 mg capsule,delayed 60 mg PO DAILY 03/21/22 Unknown History release Exam Airway Mallampati Class: IV TM Dist: >3cm Neck ROM: Full Loose/Missing/Broken Teeth: Yes Heart: S1,S2 Lungs: b/l breath sounds Assessment and Plan Assessment Anesthesia Assessment: Anesthesia Plan Discussed Final Anesthetic Review Family History of Problems with Anesthesia: No History of Problems with Anesthesia: No NPO: Yes ASA Class: IV Final Preanesthetic Review: Meds/Allgs Chart Reviewed, Consent Obtained/Reviewed and DNR Form (If Appl.) Patient Risk: High Procedure Risk: Intermediate Anesthetic Plan Anesthetic Plan: MAC: Disposition: Standard PACU
[2022-03-28 07:20] VITALS: BMI 39.7
[2022-03-28 07:41] VITALS: BP 122/67; PULSE 100; RESP 18; TEMP 36.1; O2SAT 96
[2022-03-28 08:11] LABS: Glucose, Whole Blood 266 mg/dL (60-115)
--- NOTE | 2022-03-28 08:14 | PC.NURSE ---
patient POC 266, patient did not take 1/2 dose insulin last night states sugar was [address] Alcantara notified. orders received to give patient 100-150mL IVF and will recheck POC post operatively. Dr. Alcantara at bedside.
--- NOTE | 2022-03-28 08:35 | MHC.SHP ---
Pre-Procedural Eval Section A Date of Service: 03/28/22 Section B Chief Complaint: screening Details of Present Illness: see h&P Relevant Family History (Specify if Yes): No Relevant Social History: None Present Medications: see Short Stay Collaborative assessment Medical History: No relevant PMH History of Previous Operations: No relevant previous surgery Allergies: Allergies Allergy/AdvReac Type Severity Reaction Status Date / Time cephalexin [From Keflex] Allergy Severe Itching Verified 03/21/22 09:56 pravastatin [Pravachol] Allergy Severe cramps Verified 03/21/22 09:56 bacitracin AdvReac Severe eye Verified 03/21/22 09:56 swelling dexamethasone [TobraDex] AdvReac Severe redness Verified 03/21/22 09:56 swelling tobramycin [TobraDex] AdvReac Severe redness Verified 03/21/22 09:56 swelling Sulfa (Sulfonamide AdvReac Intermediate GI upset Verified 03/21/22 09:56 Antibiotics) atorvastatin [From Lipitor] AdvReac Unknown Unverified 03/27/22 07:34 Beef Containing Products AdvReac Unknown Unverified 03/27/22 07:34 erythromycin base AdvReac Unknown Unverified 03/27/22 07:34 Penicillins [PCN] AdvReac Unknown Unverified 03/27/22 07:34 sulfacetamide AdvReac Unknown Unverified 03/27/22 07:34 [From Sulfacet-R] sulfur [From Sulfacet-R] AdvReac Unknown Unverified 03/27/22 07:34 topiramate [From Topamax] AdvReac Unknown Unverified 03/27/22 07:34 Review of Systems Sugical H&P ROS: Negative: Constitution, Cardiovascular, Respiratory, Neurological, Psychiatric, Hem-Onc, Allergic/Immunologic, Gastrointestinal, Genitourinary, Musculoskeletal, Integumentary, Endocrine and Eyes/Ears/Nose/Throat Exam Surgical H&P Exam: Normal: HEENT, Normal: Heart, Normal: Lungs, Normal: Extremities, Normal: Abdomen, Normal: Skin and Normal: Neurological Plan Diagnosis/Plan: Unchanged I have reviewed the history and physical and performed a pertinent physical examination on my patient. No changes have occurred unless specified.
--- NOTE | 2022-03-28 09:17 | PM.OP ---
Brief Operative Note Date of Service: 03/28/22 Pre-op diagnosis: screening Post-op diagnosis: same Procedure: colo Surgeon: Vj Abdi Anesthesia: MAC Was an Construction And Maintenance Inspector used for this Procedure?: No Estimated blood loss (mL): 5 Pathology: other Condition: stable Disposition: PACU
[2022-03-28 09:18] VITALS: BP 101/48; PULSE 87; RESP 16; TEMP 36.4; O2SAT 94
--- NOTE | 2022-03-28 09:30 | OP_ITS ---
SURGEON: Vj Abdi MD INDICATIONS: Colon cancer screening. PREOPERATIVE DIAGNOSIS: POSTOPERATIVE DIAGNOSIS: PROCEDURE PERFORMED: Colonoscopy to the terminal ileum with biopsy. ESTIMATED BLOOD LOSS: COMPLICATIONS: ANESTHESIA: Monitored anesthesia care. ASSISTANTS: SPECIMENS: DESCRIPTION OF PROCEDURE: A history and physical performed. The procedure was performed on 03/28/2022. The risks and benefits of the procedure were explained to the patient. Informed consent was obtained. The patient was placed in the left lateral decubitus position. A digital rectal exam was performed and was found to be normal. The Olympus pediatric video colonoscope was introduced into the rectum and advanced to the cecum without difficulty. The cecum was identified by transillumination, palpation, and identification of ileocecal valve. Examination was performed and the scope was removed. She tolerated the procedure well and was taken recovery in stable condition. FINDINGS: The terminal ileum was not examined. The visualized colonic mucosa was within normal limits. The quality of prep was good. Two polyps were identified. Both were less than 10 mm, and were removed with biopsy forceps. These were located in the cecum and in the rectum. Retroflexed examination was normal. IMPRESSION: Colon polyps. RECOMMENDATION: Follow up the biopsy results. MD LELO Martinez/MICHELLE / [phone]
[2022-03-28 09:33] VITALS: BP 107/46; PULSE 88; RESP 18; O2SAT 94
[2022-03-28 09:35] LABS: Glucose, Whole Blood 238 mg/dL (60-115)
[2022-03-28 09:48] VITALS: BP 115/58; PULSE 91; RESP 18; TEMP 36.1; O2SAT 97
== END 2022-03-28 10:08 | disposition home or self-care (01) ==
PROVIDERS: PCP Internal Medicine; Visit Provider Internal Medicine Gastroenterology
PROC: 0DJD8ZZ Inspection of Lower Intestinal Tract, Via Natural or Artificial Opening Endoscopic (ICD-10-PCS; CPT 45378; principal; 2022-03-28 08:10)
DX: Z12.11 Encounter for screening for malignant neoplasm of colon (principal); D12.0 Benign neoplasm of cecum; K62.1 Rectal polyp; E11.9 Type 2 diabetes mellitus without complications; I10 Essential (primary) hypertension; J45.909 Unspecified asthma, uncomplicated; M54.16 Radiculopathy, lumbar region; G89.4 Chronic pain syndrome; Z79.4 Long term (current) use of insulin; Z79.891 Long term (current) use of opiate analgesic; Z79.899 Other long term (current) drug therapy; Z88.0 Allergy status to penicillin; Z88.2 Allergy status to sulfonamides; Z88.8 Allergy status to other drugs, medicaments and biological substances
CPT/HCPCS: 45380; 82947; 88305; J2370

== ENCOUNTER → 2022-03-30 12:55 | Outpatient (BNVA) | payer MEDICARE, OTHER, SELFPAY | PROVIDERS: PCP Internal Medicine; Visit Provider Hospitalist | DX: J45.40 Moderate persistent asthma, uncomplicated (principal); J98.4 Other disorders of lung; G47.33 Obstructive sleep apnea (adult) (pediatric); Z99.89 Dependence on other enabling machines and devices | CPT/HCPCS: 99212 ==

== ENCOUNTER 2022-04-12 08:02 | Outpatient (REF) | payer MEDICARE, OTHER, SELFPAY ==
[2022-04-12 10:41] LABS: TSH reflex Free T4 2.49 uIU/mL (0.32-4.0)
== END 2022-04-12 08:03 | disposition home or self-care (01) ==
LOC: HO.LAB 08:02
PROVIDERS: PCP Internal Medicine; Visit Provider Internal Medicine
DX: E03.9 Hypothyroidism, unspecified (principal)
CPT/HCPCS: 36415; 84443; 99211

== ENCOUNTER → 2022-04-14 11:40 | Outpatient (BNVA) | payer MEDICARE, OTHER, SELFPAY | PROVIDERS: PCP Internal Medicine; Visit Provider Internal Medicine | DX: M25.511 Pain in right shoulder (principal); M25.512 Pain in left shoulder | CPT/HCPCS: Q3014 ==

== ENCOUNTER 2022-04-19 06:05 | Outpatient (REF) | payer MEDICARE, OTHER, SELFPAY ==
--- NOTE | ~2022-04-19 | FL_ITS ---
EXAMINATION: XR FLUOROSCOPY WITH IMAGES CLINICAL INFORMATION: M25.511 - Pain in right shoulder COMPARISON: None. TECHNIQUE: Fluoroscopy Supervised By: Dr. Hector Scherer. Fluoroscopy Time: 0.4 minutes. Cumulative Dose: 4.86 mGy. DAP: 0.668 Gycm2. Images: 1. FINDINGS: There is spinal needle overlying the lower medial humeral head. There is contrast seen in the soft tissues. No visible vascular communication. There is elevation humeral head with the setting acromium suggesting rotator cuff degeneration. FL/FL guidance in treatment room IMPRESSION: Fluoroscopy for pain management procedures.
== END 2022-04-19 06:06 | disposition home or self-care (01) ==
LOC: CF 06:05
PROVIDERS: Visit Provider Internal Medicine
DX: M25.512 Pain in left shoulder (principal)
CPT/HCPCS: 20610; J3301

== ENCOUNTER 2022-05-10 05:59 | Outpatient (REF) | payer MEDICARE, OTHER, SELFPAY ==
--- NOTE | ~2022-05-10 | FL_ITS ---
EXAMINATION: XR FLUOROSCOPY WITH IMAGES CLINICAL INFORMATION: M25.511 - Pain in right shoulder COMPARISON: Fluoroscopic spot views 04/19/2022 TECHNIQUE: Fluoroscopy Supervised By: Dr. Hector Scherer. Fluoroscopy Time: 0.3. Cumulative Dose: 2.04 mGy. DAP: 0.189 Gycm2. Images: 1. FINDINGS: There is a spinal needle overlying the inferior medial right humeral head. There is contrast present, possibly bursal. No visible vascular communication. There are degenerative changes acromioclavicular joint and mild elevation humeral head which may be associated with chronic rotator cuff degeneration. FL/FL guidance in treatment room IMPRESSION: Fluoroscopy for pain management procedure.
== END 2022-05-10 06:00 | disposition home or self-care (01) ==
LOC: CF 05:59
PROVIDERS: Visit Provider Internal Medicine
DX: M19.011 Primary osteoarthritis, right shoulder (principal); M19.012 Primary osteoarthritis, left shoulder
CPT/HCPCS: 20610; J2795; J3301

== ENCOUNTER → 2022-06-02 09:52 | Outpatient (BNVA) | payer MEDICARE, OTHER, SELFPAY | PROVIDERS: PCP Internal Medicine; Visit Provider Nurse Practitioner Family | DX: Z13.89 Encounter for screening for other disorder (principal) ==

== ENCOUNTER 2022-06-02 10:05 | Emergency (ER) | payer MEDICARE, OTHER, SELFPAY ==
--- NOTE | ~2022-06-02 | CT_ITS ---
EXAMINATION: CT HEAD WITHOUT CONTRAST CT CERVICAL SPINE WITHOUT CONTRAST CLINICAL INFORMATION: Head trauma. COMPARISON: CT neck from 07/20/2020. TECHNIQUE: Contiguous axial imaging was performed from the skull base to vertex without intravenous administration of contrast. Contiguous axial imaging was performed from the upper chest through the skull base without intravenous administration of contrast. Coronal and sagittal reformats were obtained at the acquisition workstation. This CT examination was performed using dose optimization techniques as appropriate, variously including the following: *Automated exposure control. *Adjustment of mA and/or kV according to patient size (this includes techniques or standardized protocols for targeted exams where dose is matched to indication/reason for exam; i.e. extremities or head). *Use of iterative reconstruction technique. DLP: 1629 mGy-cm FINDINGS: Head: There is no evidence of acute intracranial hemorrhage or edematous territorial infarction. Amos-white matter differentiation is preserved. Scattered and partially confluent hypoattenuation in the periventricular and deep white matter are consistent with moderate microangiopathy. Proportional prominence of the ventricles and sulcal spaces without evidence of obstructive hydrocephalus. No abnormal mass effect or midline shift. No extra-axial fluid collections. Calcific atherosclerotic disease of the intracranial internal carotid and vertebral arteries. No hyperdense vessel sign. Mild soft tissue edema/hematoma along the left aspect of the frontal bone. No associated osseous abnormalities. Mild mucosal thickening of the paranasal sinuses. Instrumented fix of a dehiscent cartilaginous nasal septum. The mastoid air cells and middle ear cavities are clear. Bilateral lens extractions. Cervical Spine: Instrumented interbody fusion of C5-C6 and C6-C7. The atlantooccipital and atlantoaxial articulations remain well aligned. Reversal the normal cervical lordosis centered on C5-C6. Degenerative stepwise anterolistheses of C2-C5. No evidence of acute fracture or subluxation. The vertebral body heights are maintained. Moderate degenerative anterolisthesis of C7 on T1. Facet and uncovertebral joint arthropathy leads to osseous encroachment on the neural foramina at C3-C4 and C5-T1. There is no prevertebral soft tissue swelling. Retropharyngeal courses of the carotid arteries. The thyroid gland and remaining cervical soft tissues are normal in appearance. The lung apices demonstrate no abnormalities. CT/CT cervical spine wo IV con IMPRESSION: 1. No evidence of acute intracranial hemorrhage or edematous territorial infarction. Moderate underlying microangiopathy and generalized cerebral volume loss. 2. No evidence of acute fracture or traumatic subluxation of the cervical spine. Instrumented interbody fusion of C5-C6 and C6-C7. Moderate multilevel degenerative spondyloarthropathy of the cervical spine. 3. Left frontal scalp edema/hematoma. No associated osseous abnormalities.
[2022-06-02 10:12] VITALS: BP 111/69; PULSE 87; O2SAT 96
--- NOTE | 2022-06-02 10:19 | ED_ITS ---
HPI - Head Injury General Chief complaint: Fall Stated complaint: Fall (head strike), L knee pain per EMS Time Seen by Provider: 06/02/22 10:18 Source: patient Mode of arrival: EMS Limitations: no limitations History of Present Illness HPI Narrative: Patient was leaning forward and fell at the outpatient clinic, no LOC. Large hematoma to her left head MD Complaint: head injury Onset (ago): minute(s) Arrival Conditions: C-spine immobilization present Mechanism of Injury: fall Place: other (clinic office) Loss of Consciousness: no Location of injury: frontal Severity: moderate Quality: sharp Other Injuries: laceration Associated symptoms: denies other symptoms Related Data Home Medications Medication Instructions Recorded Confirmed Saccharomyces boulardii 250 mg 250 mg PO BID 05/19/20 04/12/22 capsule (Florastor) albuterol sulfate 90 mcg/actuation 2 puff PO Q4H 05/19/20 04/12/22 aerosol inhaler atorvastatin 20 mg tablet 20 mg PO DAILY 05/19/20 04/12/22 insulin glargine 100 unit/mL (3 unit subcut 05/19/20 04/12/22 mL) subcutaneous pen levothyroxine 75 mcg tablet 75 mcg PO DAILY 05/19/20 04/12/22 meclizine 25 mg tablet 25 mg PO BID PRN 05/19/20 04/12/22 omeprazole 20 mg capsule,delayed 20 mg PO DAILY 05/19/20 04/12/22 release cholecalciferol (vitamin D3) 25 25 mcg PO DAILY 06/24/20 04/12/22 mcg (1,000 unit) capsule (Vitamin D3) fluticasone propionate 220 2 puff inhalation BID 06/24/20 04/12/22 mcg/actuation HFA aerosol inhaler sitagliptin phosphate 100 mg tablet 100 mg PO DAILY 06/24/20 04/12/22 tiotropium bromide 1.25 inhalation 06/24/20 04/12/22 mcg/actuation mist for inhalation potassium chloride 10 mEq 10 meq PO BID 08/30/20 04/12/22 tablet,extended release nystatin 100,000 unit/gram topical 1 appl topical BID 09/01/20 04/12/22 powder allopurinol 100 mg tablet 100 mg PO DAILY 09/12/21 04/12/22 mepolizumab 100 mg subcutaneous 100 mg subcut Q4W 09/12/21 04/12/22 solution gabapentin 400 mg capsule 400 mg PO BEDTIME 10/10/21 04/12/22 valsartan 40 mg tablet mg PO 10/28/21 04/12/22 gabapentin 100 mg capsule 100 mg PO .AM 12/23/21 04/12/22 duloxetine 60 mg capsule,delayed 60 mg PO DAILY 03/21/22 04/12/22 release dapagliflozin 10 mg tablet 10 mg PO DAILY 03/30/22 04/12/22 ([facility]) Previous Rx's Medication Instructions Recorded furosemide 80 mg tablet (Lasix) 80 mg PO BID 30 days #60 tabs 06/24/20 trazodone 50 mg tablet 50 mg PO BEDTIME PRN for insomnia 05/23/21 #30 tabs albuterol sulfate 2.5 mg/3 mL 2.5 mg (3 mL) inhalation Q4H PRN 02/13/22 (0.083 %) solution for nebulization for wheezing #180 caps chlorhexidine gluconate 0.12 % 15 ml buccal DAILY 30 days #450 mL 03/09/22 mouthwash hydrocodone 7.5 mg-acetaminophen 1 tab PO BID PRN pain 30 days #60 06/02/22 325 mg tablet tabs Allergies Allergy/AdvReac Type Severity Reaction Status Date / Time cephalexin [From Keflex] Allergy Severe Itching Verified 05/10/22 08:28 pravastatin [Pravachol] Allergy Severe cramps Verified 05/10/22 08:28 bacitracin AdvReac Severe eye Verified 05/10/22 08:28 swelling dexamethasone [TobraDex] AdvReac Severe redness Verified 05/10/22 08:28 swelling tobramycin [TobraDex] AdvReac Severe redness Verified 05/10/22 08:28 swelling Sulfa (Sulfonamide AdvReac Intermediate GI upset Verified 05/10/22 08:28 Antibiotics) atorvastatin [From Lipitor] AdvReac Unknown Verified 05/10/22 08:28 Beef Containing Products AdvReac Unknown Verified 05/10/22 08:28 erythromycin base AdvReac Unknown Verified 05/10/22 08:28 Penicillins [PCN] AdvReac Unknown Verified 05/10/22 08:28 sulfacetamide AdvReac Unknown Verified 05/10/22 08:28 [From Sulfacet-R] sulfur [From Sulfacet-R] AdvReac Unknown Verified 05/10/22 08:28 topiramate [From Topamax] AdvReac Unknown Verified 05/10/22 08:28 Review of Systems Review of Systems: Yes all other systems are reviewed and are negative Integumentary/Breasts: Skin/Breast: Reports other (head and neck trauma) Neurologic: Denies Sensory deficit (Neuro) [facility] Past Medical History Medical History Arthritis of both glenohumeral joints Asthma Chronic pain syndrome Chronic restrictive lung disease Dyspnea Dyspnea Gouty arthritis Neurogenic claudication due to lumbar spinal stenosis CLEVE on CPAP Tracheitis Surgical History History of cholecystectomy History of eyelid surgery History of knee replacement Status post cervical spinal fusion Family History Family History Father HTN (hypertension) Stroke Diabetes Mother Atrial fibrillation HTN (hypertension) Social History Social History Alcohol intake: never Patient Tobacco Use Status: Former Tobacco user Tobacco use type: Cigarette Years Smoked: 20 years Smoked in Last 30 Days: No Second Hand Smoke Exposure: No Use of substances other than those prescribed or required for medical reasons: No Advance Directives: Yes Advance Directives Information Provided: Yes Advance Directives on File: No Physical Exam Vital Signs: Vital Signs: Last Vital Signs Temp 98.2 F 06/02/22 13:14 Pulse 77 06/02/22 13:14 Resp 17 06/02/22 13:14 BP 133/62 06/02/22 13:14 Pulse Ox 97 06/02/22 13:14 O2 Del Method 06/02/22 13:14 BMI result Body Mass Index 46.0 Const: Other: Elderly obese female Orientation/consciousness: oriented to person and patient oriented x3 Limitations: no limitations HEENT: Head: Yes normal to inspection Ears: external ears normal General nose exam: Normal external nose present Mouth: Normal oral and palatal mucosa present and oropharynx normal Throat: Yes posterior oropharynx normal Eyes: General: appearance normal, both eyes and all related structures Neck: Other: supple Neck: Yes normal visual inspection Chest: Chest palpation & inspection: normal inspection of the chest Resp: Auscultation: clear to auscultation bilaterally Cardio: Jugular venous distension: no JVD Rate: regular rate Rhythm: regular rhythm Heart sounds: S1 normal heart sound present and S2 normal heart sound present GI: Inspection: Yes normal to inspection Palpation (GI): Soft to palpation, nontender and No hepatosplenomegaly present Auscultation: normal bowel sounds : General: Yes no CVA tenderness Back/Spine/Pelvis: Back: no CVA tenderness Skin: Other: contusion left frontal and abrasion, left knee with skin tear. Neuro: General: oriented to person and patient oriented x3 Cranial nerves: Yes CN's II-XII intact bilaterally Motor exam (neuro): 5/5 motor strength present throughout Sensory Exam: No Sensory deficit (Neuro) Extrem: General: Yes normal to inspection Psych: Appearance: grossly normal Course Reevaluation(s) Reevaluation #1: Radiology read Head and neck Ct as negative will dc home Time: 13:38 Medical Decision Making Differential Diagnosis Differential Diagnoses: The differential diagnosis associated with the presentation includes (subdural, epidural, cerebral contusion, cervical fracture) Admission/Observation Consideration of admission/observation: Escalation of care including admission/observation considered (Elderly patient with large head injury, admission was considered) Independent Interpretation I performed an independent interpretation of an: CT Scan (head negative for bleed, CT neck with question of fracture at C2) Radiology Impression Discussion of test interpretation with radiology: I have reviewed the radiologist's reading. Independent Historian Clinical information obtained from an independent historian. History obtained from or confirmed by: Spouse Discharge Plan Discharge Clinical Impression: Contusion of head Patient Disposition: Home, Self-Care Instructions: Facial Contusion (ED), Hematoma (ED) Prescriptions: No Action furosemide [Lasix] 80 mg tablet 80 mg PO BID 30 Days Qty: 60 5RF albuterol sulfate 2.5 mg /3 mL (0.083 %) solution for nebulization 2.5 mg inhalation Q4H PRN (Reason: for wheezing) Qty: 180 1RF chlorhexidine gluconate 0.12 % mouthwash 15 ml buccal DAILY 30 Days Qty: 450 3RF hydrocodone-acetaminophen 7.5-325 mg tablet 1 tab PO BID PRN (Reason: pain) 30 Days Qty: 60 0RF Rx Instructions: Partial Fill upon patient request. nystatin 100,000 unit/gram powder 1 appl topical BID albuterol sulfate 90 mcg/actuation HFA aerosol inhaler 2 puff PO Q4H omeprazole 20 mg capsule,delayed release(DR/EC) 20 mg PO DAILY levothyroxine 75 mcg tablet 75 mcg PO DAILY atorvastatin 20 mg tablet 20 mg PO DAILY Saccharomyces boulardii [Florastor] 250 mg capsule 250 mg PO BID Rx Instructions: swallow whole meclizine 25 mg tablet 25 mg PO BID PRN Lantus Solostar U-100 Insulin 100 unit/mL (3 mL) insulin pen subcut fluticasone propionate 220 mcg/actuation HFA aerosol inhaler 2 puff inhalation BID tiotropium bromide 1.25 mcg/actuation mist inhalation sitagliptin phosphate 100 mg tablet 100 mg PO DAILY potassium chloride 10 mEq tablet extended release 10 meq PO BID allopurinol 100 mg tablet 100 mg PO DAILY mepolizumab 100 mg recon soln 100 mg subcut Q4W gabapentin 400 mg capsule 400 mg PO BEDTIME cholecalciferol (vitamin D3) [Vitamin D3] 25 mcg (1,000 unit) capsule 25 mcg PO DAILY trazodone 50 mg tablet 50 mg PO BEDTIME PRN (Reason: for insomnia) Qty: 30 4RF gabapentin 100 mg capsule 100 mg PO .AM valsartan 40 mg tablet PO Farxiga 10 mg tablet 10 mg PO DAILY duloxetine 60 mg capsule,delayed release(DR/EC) 60 mg PO DAILY Referrals: Omid Jimenes MD [Primary Care Provider] - 1 week
[2022-06-02 10:22] VITALS: BP 121/67; PULSE 88; RESP 20; TEMP 37.4; O2SAT 95; BMI 46.0
[2022-06-02 10:32] VITALS: BP 125/49; PULSE 82; RESP 17; TEMP 37.4; O2SAT 98
--- OUTSIDE RECORDS SUMMARY | 2022-06-02 10:39 | XMS_ITS ---
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 7137 [id number] mellitus with diabetic polyneuropathy ALLERGIES Substance Reaction Event Type Date Status TobraDex swelling, itchy Drug Allergy Mar, Active Bacitracin swelling,itchy Drug Allergy Mar, Active Cipro GI upset Drug Allergy Mar, Active Bactrim GI upset Drug Allergy Mar, Active Erythromycin GI upset Drug Allergy Mar, Active ENCOUNTERS Encounter Location Date Diagnosis [facility] [address] Mar, Typ e 1 diabetes mellitus [place], [place] with diabetic [address] polyneuropathy E 10.42 ; Tinea unguium B3 5.1 ; Ingrowing nail L 60.0 ; Pain in right to e(s) M79.674 ; Pain i n left toe(s) M79.675 ; Hallux valgus (acquired ), left foot M20.12 ; Adam llux valgus (acquired ), right foot M20.11 ; Ec zema, unspecified type L30.9 ; Xerosis cutis L8 5.3 and Closed nondispla rajani fracture of midd le phalanx of lesser toe of right foot, initial en counter S92.524A [address] Jan, Typ e 1 diabetes mellitus [place] with diabetic [address] polyneuropathy E 10.42 ; Tinea unguium B3 5.1 ; Ingrowing nail L 60.0 ; Pain in right to e(s) M79.674 ; Pain i n left toe(s) M79.675 ; Hallux valgus (acquired ), left foot M20.12 ; Adam llux valgus (acquired ), right foot M20.11 ; Ec zema, unspecified type L30.9 and Xerosis cutis L8 5.[address] Nov, Typ e 1 diabetes mellitus [place] with diabetic [address] polyneuropathy E 10.42 ; Tinea unguium B3 5.1 ; Ingrowing nail L 60.0 ; Pain in right to e(s) M79.674 ; Pain i n left toe(s) M79.675 ; Hallux valgus (acquired ), left foot M20.12 ; Adam llux valgus (acquired ), right foot M20.11 ; Ec zema, unspecified type L30.9 and Xerosis cutis L8 5.[address] Sep, Typ e 1 diabetes mellitus [place] diabetic [address] polyneuropathy E 10.42 ; Tinea unguium B3 5.1 ; Ingrowing nail L 60.0 ; Pain in right to e(s) M79.674 ; Pain i n left toe(s) M79.675 ; Hallux valgus (acquired ), left foot M20.12 ; Adam llux valgus (acquired ), right foot M20.11 ; Ec zema, unspecified type L30.9 and Xerosis cutis L8 5.[address] Jun, Typ e 1 diabetes mellitus [place] with diabetic [address] polyneuropathy E 10.42 ; Tinea unguium B3 5.1 ; Ingrowing nail L 60.0 ; Pain in right to e(s) M79.674 ; Pain i n left toe(s) M79.675 ; Hallux valgus (acquired ), left foot M20.12 ; Adam llux valgus (acquired ), right foot M20.11 ; Ec zema, unspecified type L30.9 and Xerosis cutis L8 5.[address] Apr, Typ e 1 diabetes mellitus [place] diabetic [address] polyneuropathy E 10.42 ; Tinea unguium B3 5.1 ; Ingrowing nail L 60.0 ; Pain in right to e(s) M79.674 ; Pain i n left toe(s) M79.675 ; Hallux valgus (acquired ), left foot M20.12 ; Adam llux valgus (acquired ), right foot M20.11 ; Ec zema, unspecified type L30.9 and Xerosis cutis L8 5.[address] Jan, Typ e 1 diabetes mellitus [place] diabetic [address] polyneuropathy E 10.42 ; Tinea unguium B3 5.1 ; Ingrowing nail L 60.0 ; Pain in right to e(s) M79.674 ; Pain i n left toe(s) M79.675 ; Hallux valgus (acquired ), left foot M20.12 ; Adam llux valgus (acquired ), right foot M20.11 and Eczema, unspecified type L30.[address] Nov, Typ e 1 diabetes mellitus [place] diabetic [address] polyneuropathy E 10.42 ; Tinea unguium B3 5.1 ; Ingrowing nail L 60.0 ; Pain in right to e(s) M79.674 ; Pain i n left toe(s) M79.675 ; Hallux valgus (acquired ), left foot M20.12 ; Adam llux valgus (acquired ), right foot M20.11 and Eczema, unspecified type L30.[address] Sep, Typ e 1 diabetes mellitus [place] diabetic [address] polyneuropathy E 10.42 ; Tinea unguium B3 5.1 ; Ingrowing nail L 60.0 ; Pain in right to e(s) M79.674 ; Pain i n left toe(s) M79.675 ; Hallux valgus (acquired ), left foot M20.12 ; Adam llux valgus (acquired ), right foot M20.11 and Eczema, unspecified type L30.[address] Jul, Typ e 1 diabetes mellitus [place] with diabetic [address] polyneuropathy E 10.42 ; Tinea unguium B3 5.1 ; Ingrowing nail L 60.0 ; Pain in right to e(s) M79.674 ; Pain i n left toe(s) M79.675 ; Hallux valgus (acquired ), left foot M20.12 ; Adam llux valgus (acquired ), right foot M20.11 and Eczema, unspecified type L30.[address] Apr, Typ e 1 diabetes mellitus [place] diabetic [address] polyneuropathy E 10.42 ; Tinea unguium B3 5.1 ; Ingrowing nail L 60.0 ; Pain in right to e(s) M79.674 ; Pain i n left toe(s) M79.675 ; Hallux valgus (acquired ), left foot M20.12 ; Adam llux valgus (acquired ), right foot M20.11 and Eczema, unspecified type L30.[address] Jan, Typ e 1 diabetes mellitus [place] diabetic [address] polyneuropathy E 10.42 ; Tinea unguium B3 5.1 ; Ingrowing nail L 60.0 ; Pain in right to e(s) M79.674 ; Pain i n left toe(s) M79.675 ; Hallux valgus (acquired ), left foot M20.12 and Hallux valgus (acquired ), right foot M20.[address] Nov, Typ e 1 diabetes mellitus [place] diabetic [address] polyneuropathy E 10.42 ; Tinea unguium B3 5.1 ; Ingrowing nail L 60.0 ; Pain in right to e(s) M79.674 ; Pain i n left toe(s) M79.675 ; Hallux valgus (acquired ), left foot M20.12 and Hallux valgus (acquired ), right foot M20.[address] [facility] Sep, Typ e 1 diabetes mellitus [place] diabetic [address] polyneuropathy E 10.42 ; Tinea unguium B3 5.1 ; Ingrowing nail L 60.0 ; Pain in right to e(s) M79.674 ; Pain i n left toe(s) M79.675 ; Hallux valgus (acquired ), left foot M20.12 and Hallux valgus (acquired ), right foot M20.[address] [facility] Jul, [place] [address] May, Typ e 1 diabetes mellitus [place] diabetic [address] polyneuropathy E 10.42 ; Tinea unguium B3 5.1 ; Ingrowing nail L 60.0 ; Pain in right to e(s) M79.674 ; Pain i n left toe(s) M79.675 ; Hallux valgus (acquired ), left foot M20.12 and Hallux valgus (acquired ), right foot M20.[address] Mar, [place] [address] Mar, Typ e 1 diabetes mellitus [place] diabetic [address] polyneuropathy E 10.42 ; Tinea unguium B3 5.1 ; Ingrowing nail L 60.0 ; Pain in right to e(s) M79.674 ; Pain i n left toe(s) M79.675 ; Hallux valgus (acquired ), left foot M20.12 and Hallux valgus (acquired ), right foot M20.[address] Dec, Typ e 1 diabetes mellitus [place] diabetic [address] polyneuropathy E 10.42 ; Tinea unguium B3 5.1 ; Ingrowing nail L 60.0 ; Pain in right to e(s) M79.674 ; Pain i n left toe(s) M79.675 ; Hallux valgus (acquired ), left foot M20.12 and Hallux valgus (acquired ), right foot M20.[address] Sep, Typ e 1 diabetes mellitus [place] diabetic [address] polyneuropathy E 10.42 ; Tinea unguium B3 5.1 ; Ingrowing nail L 60.0 ; Pain in right to e(s) M79.674 ; Pain i n left toe(s) M79.675 ; Hallux valgus (acquired ), left foot M20.12 and Hallux valgus (acquired ), right foot M20.[address] Mar, Typ e 1 diabetes mellitus [place] diabetic [address] polyneuropathy E 10.42 ; Tinea unguium B3 5.1 ; Ingrowing nail L 60.0 ; Pain in right to e(s) M79.674 ; Pain i n left toe(s) M79.675 ; Hallux valgus (acquired ), left foot M20.12 and Hallux valgus (acquired ), right foot M20.[address] Oct, [place] [address] [address] Sep, Typ e 1 diabetes mellitus [place] diabetic [address] polyneuropathy E 10.42 ; Tinea unguium B3 5.1 ; Ingrowing nail L 60.0 ; Pain in right to e(s) M79.674 ; Pain i n left toe(s) M79.675 ; Hallux valgus (acquired ), left foot M20.12 and Hallux valgus (acquired ), right foot M20.[address] Mar, Tin ea unguium B35.1 ; [place] Ingrowing nail L60.0 ; [address] Type 1 diabetes mellitus with diabetic polyneuropathy E 10.42 ; Pain in right to e(s) M79.674 and Pain in left toe(s) M79.[address] Sep, Tin ea unguium B35.1 ; Type [place] 1 [place] [address] diabetic polyneu ropathy E10.42 ; Pain in right toe(s) M79.674 a nd Pain in left toe(s) M79. [address] Mar, Tin ea unguium B35.1 ; Type [place] 2 [place] [address] other diabetic neurological com plication E11.49 ; Pain in right toe(s) M79.674 ; Pain in left toe(s) M79. 675 ; Other hammer toe (s) (acquired), left foot M20.42 ; Other h ammer toe(s) (acquired ), right foot M20.41 and Plantar fascial fibromat osis M72.[address] Sep, Tin ea unguium B35.1 ; Type [place] 2 [place] [address] other diabetic neurological com plication E11.49 ; Pain in right toe(s) M79.674 ; Pain in left toe(s) M79. 675 ; Other hammer toe (s) (acquired), left foot M20.42 ; Other h ammer toe(s) (acquired ), right foot M20.41 and Plantar fascial fibromat osis M72.[address] Mar, Tin ea unguium B35.1 ; Type [place] 2 diabetes [place] with [address] other diabetic neurological com plication E11.49 ; Pain in right toe(s) M79.674 a nd Pain in left toe(s) M79. [address] Dec, Ing rowing Nail 703.0 ; [place] Onychomycosis 1 10.1 ; [address] Diabetic - NIDDM/Neuropathy 250.60 and Pain in Limb 729.[address] Sep, Ing rowing Nail 703.0 ; [place] Onychomycosis 1 10.1 ; [address] Diabetic - NIDDM/Neuropathy 250.60 and Pain in Limb 729.[address] May, Ing rowing Nail 703.0 ; [place] Onychomycosis 1 10.1 ; [address] Diabetic - NIDDM/Neuropathy 250.60 and Pain in Limb 729.[address] Mar, [place] [address] Dec, Ing rowing Nail 703.0 ; [place] Onychomycosis 1 10.1 ; [address] Diabetic - NIDDM/Neuropathy 250.60 and Pain in Limb 729.[address] Sep, Ing rowing Nail 703.0 ; [place] Onychomycosis 1 10.1 ; [address] Diabetic - NIDDM/Neuropathy 250.60 and Pain in Limb 729.[address] Jun, Kyle ntar Fasciitis 728.71 ; [place] Onychomycosis 1 10.1 ; [address] Diabetic - NIDDM/Neuropathy 250.60 and Pain in Limb 729.[address] Mar, Kyle ntar Fasciitis 728.71 ; [place] Onychomycosis 1 10.1 ; [address] Diabetic - NIDDM/Neuropathy 250.60 and Pain in Limb 729.[address] Feb, [place] [address] Dec, Kyle ntar Fasciitis 728.71 ; [place] ANGELA Onychomycosis 1 10.1 ; [address] Diabetic - NIDDM/Neuropathy 250.60 and Pain in Limb 729.5 [facility] [address] Oct, Debby chomycosis 110.1 ; [place]GELA Diabetic - [address] NIDDM/Neuropathy 250.60 ; Pain in Limb 729 .5 and Plantar Fasciiti s 728.71 [facility] [address] August, Yifan sitis 729.1 ; Plantar [place] Fasciitis 728.7 1 ; [place] [address] Limb 729.5 ; Bur sitis 727.3 and Diabet ic - NIDDM/Neuropathy 250.[address] Jul, [place] [address] Jul, [place] [address] Jul, [place] [address] Jul, [place] [address] Jul, Yifan sitis 729.1 ; Plantar [place] Fasciitis 728.7 1 ; [place] [address] Limb 729.5 ; Bur sitis 727.3 and Diabet ic - NIDDM/Neuropathy 250.[address] Jun, [place] [address] Jun, Charisse betic - [place] NIDDM/Neuropath y 250.60 ; [address] Plantar Fasciiti s 728.71 ; Ingrowing Nail 7 03.0 ; Myositis 729.1 ; Pain in Limb 729.5 and B ursitis 727.3 IMMUNIZATIONS Vaccine Route Administration Date Status COVID-19 Moderna Vaccine Unknown Jan 30, 2021 Adminis tered Pneumococcal Unknown Feb 17, 2013 Administered Influenza Unknown Jan 30, 2021 Administered Influenza Unknown Mar 05, 2017 Administered Influenza Unknown Mar 20, 2016 Administered Influenza Unknown Jan 13, 2015 Administered SOCIAL HISTORY Qualifiers Date Never Smoker REASON FOR REFERRAL FUNCTIONAL STATUS PLAN OF CARE Activity Details Follow Up 2 Months Reason: Future Appointment Provider Name:Alexis Martinez, 2022-06-22 12:45:00 AM, [address] [place], [address], Pending Test X ray : Foot, right 3V Pending Test X ray : Foot, left 2V Pending Test X ray : Foot, right 2V Future/Pending Procedure 04618-KBEQ SKIN LESIONS, 2 T O 4 Future/Pending Procedure 96477-BIIW SKIN LESIONS, 2 T O 4 Future/Pending Procedure 83015-THRD SKIN LESIONS, 2 T O 4 Future/Pending Procedure 56643-JXEN SKIN LESIONS, 2 T O 4 Future/Pending Procedure 28355-FHSM SKIN LESIONS, 2 T O 4 Future/Pending Procedure 09460-PXME SKIN LESIONS, 2 T O 4 Future/Pending Procedure 03177-HXOF SKIN LESIONS, 2 T O 4 Future/Pending Procedure 22884-TUJB SKIN LESIONS, 2 T O 4 Future/Pending Procedure 74699-XPUA SKIN LESIONS, 2 T O 4 Future/Pending Procedure 36929-ZCYB SKIN LESIONS, 2 T O 4 Future/Pending Procedure 62450-WZGF SKIN LESIONS, 2 T O 4 Future/Pending Procedure 97723-KOTI SKIN LESIONS, 2 T O 4 Future/Pending Procedure 25405-LECU SKIN LESIONS, 2 T O 4 Future/Pending Procedure 71206-ZHBM SKIN LESIONS, 2 T O 4 Future/Pending Procedure 02976-RTJWYRK NAIL, 6 OR MOR E Future/Pending Procedure 75696-HEXW SKIN LESIONS, 2 T O 4 Future/Pending Procedure 08866-RKCHUSP NAIL, 6 OR MOR E Future/Pending Procedure 00455-Ixyplfse Plate Future/Pending Procedure 72150-BKQE SKIN LESIONS, 2 T O 4 Future/Pending Procedure 96827-JQJZWXV NAIL, 6 OR MOR E Future/Pending Procedure 35429-Bgyxcwhy Plate Future/Pending Procedure 54589-OTGL SKIN LESIONS, 2 T O 4 Future/Pending Procedure 89183-BXXQHBN NAIL, 6 OR MOR E Future/Pending Procedure 38240-YHBH SKIN LESIONS, OVE R 4 Future/Pending Procedure 56969-ULRWRJW NAIL, 6 OR MOR E Future/Pending Procedure 66831-NEBD SKIN LESIONS, OVE R 4 Future/Pending Procedure 70666-FJILQAW NAIL, 6 OR MOR E Future/Pending Procedure 90091-LRRL SKIN LESIONS, OVE R 4 Future/Pending Procedure 52108-ZQJPFBX NAIL, 6 OR MOR E Future/Pending Procedure 32494-BXVU SKIN LESIONS, OVE R 4 Future/Pending Procedure 34444-YWQFLJQ NAIL, 6 OR MOR E Future/Pending Procedure 36854-AHFU SKIN LESIONS, OVE R 4 Future/Pending Procedure 69628-ZCLPYIZ NAIL, 6 OR MOR E Future/Pending Procedure 89551-JVRL SKIN LESIONS, OVE R 4 Future/Pending Procedure 57437-PYRCVVN NAIL, 6 OR MOR E Future/Pending Procedure 62825-CYVT SKIN LESIONS, OVE R 4 Future/Pending Procedure 14306-NEXRJYY NAIL, 6 OR MOR E Future/Pending Procedure 98686-PPHXNVB NAIL, 6 OR MOR E Future/Pending Procedure 73382-WKRG SKIN LESIONS, OVE R 4 Future/Pending Procedure 93987-WFLOKME NAIL, 6 OR MOR E Future/Pending Procedure 17090-Lfhkxxdk Plate Future/Pending Procedure 58974-ZJWA SKIN LESIONS, OVE R 4 Future/Pending Procedure 96928-JPBCSNF NAIL, 6 OR MOR E Future/Pending Procedure 32831-WVOK SKIN LESIONS, OVE R 4 Future/Pending Procedure 58253-GDCNHRA NAIL, 6 OR MOR E Future/Pending Procedure 58778-KYKA SKIN LESIONS, OVE R 4 Future/Pending Procedure 69703-QMMUSDY NAIL, 1-5 Future/Pending Procedure 41035-VPVO SKIN LESIONS, OVE R 4 Future/Pending Procedure 17692-VUKI NAIL(S) Future/Pending Procedure 54473-VJIJFTF NAIL, 1-5 Future/Pending Procedure 88426-NBGI NAIL(S) Future/Pending Procedure 66600-QYITTZF NAIL, 1-5 Future/Pending Procedure 93947-Mactbecd Plate Future/Pending Procedure 27351-CWVX SKIN LESIONS, OVE R 4 Future/Pending Procedure 24865-RYTBHQN NAIL, 1-5 Future/Pending Procedure 47819-Kfzjsfyz Plate Future/Pending Procedure 42187-YJVU SKIN LESIONS, OVE R 4 Future/Pending Procedure 06548-ALKKCYK NAIL, 1-5 Future/Pending Procedure 94163-Yhsryjqu Plate Future/Pending Procedure 22514-FHKV SKIN LESIONS, OVE R 4 VITAL SIGNS Height 5 ft 6 in in 2022-04-10 Weight 270 lbs 2022-04-10 BMI 43.57 kg/m2 2022-04-10 Heart Rate 107 /min 2019-06-12 Temperature 97.0 degrees Fahrenheit 2020-08-11 Blood pressure systolic 112 mm Hg 2021-02-23 Blood pressure diastolic 60 mm Hg 2021-02-23 MEDICATIONS Medication Instructions Dosage Frequency Start End Duration Statu s Date Date Spiriva Respimat Active Lantus 37 units Active Ditropan Not-Jaylen ing Meclizine HCl 25 MG Orally Once a 1 tablet as 24h 30 day(s) Active day needed Ergocalciferol 48230 1 capsule 30 day(s) Not-Jaylen UNIT ing Amoxicillin 250 MG USE 1 7 Activ e SUPPOSITORY RECTALLY TWICE A DAY Vicodin Not-Jaylen ing Colchicine Active Valsartan Active Allopurinol 100 MG as directed A ctive Extra-Depth Diabetic . Dx: for 1 year 08 . Not-Jaylen Shoes with 3 Pair Fuad, ing Custom heat-molded 2015 multi-density innersoles . Extra-Depth Diabetic . . 1pair 1 year Not -Jaylen Shoes with 3 Pair shoes/3sets in g Custom heat-molded inserts multi-density innersoles . predniSONE 10 MG 12 Active Invokana 300 MG Orally Once a 1 tablet 24h N ot-Jaylen day ing K-Tab 10 MEQ Orally Twice a 1 tablet with 12h 30 day (s) Active day food tylenol Active DULoxetine HCl 60 MG Orally Once a as directed 24h Active day Extra Depth Diabetic for 1 year 08 Not-Jaylen Shoes with 3 Pair Fuad, ing Custom heat-molded 2016 multi-density innersoles Extra Depth as directed Active Orthopedic Shoes (1 Pair) with Customized Heat Molded Multidensity Innersoles (3 Pair) Potassium Chloride ER Ac tive Gabapentin 100 MG Orally morning 1 capsule Active Extra-Depth Diabetic . Dx:Niddm for 1 year 13 . Not-Jaylen Shoes with 3 Pair with Mar, ing Custom heat-molded neuropathy, 2014 multi-density foot deformity innersoles . and pre-ulcerative skin lesions Fluticasone Active Propionate Vitamin C Active Omeprazole Active Dymista Active Prochlorperazine Active Furosemide Active Extra Depth as directed Not-Jaylen Orthopedic Shoes (1 Mar, ing Pair) with Customized 2016 Heat Molded Multidensity Innersoles (3 Pair) Ferrous Sulfate 325 Orally Once a 1 tablet 24h 30 da y(s) Active (65 Fe) MG day ZyrTEC Allergy Active Extra Depth Diabetic for 1 year Not-Jaylen Shoes with 3 Pair Fuad, ing Custom heat-molded 2017 multi-density innersoles Januvia Active Bepreve 1.5 % Ophthalmic 1 drop into 12h Act manolo Twice a day affected eye Cephalexin Active PriLOSEC 20 MG Orally Once a 1 capsule 24h 30 day(s) Active day HYDROcodone-Acetamino Orally every 6 1 tablet as 6h Active phen 7.5-325 MG hrs needed Diovan 160mg Orally Once a 1 tablet 24h 30 day(s) Ac tive day Vancomycin HCl 125 MG USE 1 14 Ac tive SUPPOSITORY RECTALLY TWICE A DAY Magnesium Oxide 400 Orally Once a 1 tablet as 24h 30 day(s) Active MG day needed Dulera Not-Jaylen ing Metformin & Diet as directed Not -Jaylen Manage Prod 500 MG ing Atorvastatin Calcium Act manolo Flonase Nasally Once a 1 spray in 24h 30 day(s) Not- Jaylen day each nostril ing Florastor 250 MG Orally Twice a 1 capsule 12h 30 day (s) Active day Albuterol as directed Active Declomycin Not-Jaylen ing Nucala Active EPINEPHrine Active Breo Ellipta Not-Jaylen ing [place]orena Active oxyCODONE HCl Active Farxiga 10 MG Orally morning 1 tablet Ac tive Ibuprofen 800mg Orally every 6 1 tablet as 6h Active hrs needed hydroCHLOROthiazide Orally Once a 1 tablet 24h 30 da y(s) Not-Jaylen 25 MG day ing Synthroid Active Levothyroxine Sodium Orally Once a 1 tablet on 24h Active 75 MCG day an empty stomach in the morning PROCEDURES Procedure Date Ordered Result Body Site X-RAY EXAM OF RIGHT FOOT 3V Apr 10, 2022 TRIM SKIN LESIONS, 2 TO 4 August 11, 2020 STRAPPING OF TOES Apr 10, 2022 TRIM SKIN LESIONS, 2 TO 4 October 18, 2020 X-RAY EXAM OF RIGHT FOOT 2V October 03, 2017 X-RAY EXAM OF LEFT FOOT 2V October 03, 2017 DEBRIDE NAIL, 6 OR MORE October 05, 2014 TRIM SKIN LESIONS, 2 TO 4 Jan 27, 2019 DEBRIDE NAIL, 6 OR MORE Apr 20, 2014 DEBRIDE NAIL, 6 OR MORE Jun 04, 2014 TRIM SKIN LESIONS, 2 TO 4 October 13, 2019 DEBRIDE NAIL, 6 OR MORE Jan 21, 2014 TRIM SKIN LESIONS, 2 TO 4 Dec 15, 2019 Avulsion Plate October 16, 2013 TRIM SKIN LESIONS, 2 TO 4 Feb 16, 2020 DEBRIDE NAIL, 6 OR MORE July 10, 2013 DEBRIDE NAIL, 6 OR MORE Apr 05, 2016 TRIM SKIN LESIONS, 2 TO 4 Apr 08, 2018 DEBRIDE NAIL, 6 OR MORE Apr 03, 2013 DEBRIDE NAIL, 6 OR MORE October 06, 2015 TRIM SKIN LESIONS, 2 TO 4 Apr 09, 2019 TRIM SKIN LESIONS, OVER 4 Jan 16, 2013 DEBRIDE NAIL, OR MORE Apr 07, 2015 TRIM SKIN LESIONS, 2 TO 4 October 07, 2018 DEBRIDE NAIL, 1-October 30, 2012 DEBRIDE NAIL, 6 OR MORE Jan 06, 2015 TRIM SKIN LESIONS, 2 TO 4 Jun 12, 2019 DEBRIDE NAIL, OR MORE Apr 08, 2018 DEBRIDE NAIL, 6 OR MORE October 03, 2017 DEBRIDE NAIL, OR MORE Apr 04, 2017 DEBRIDE NAIL, 6 OR MORE October 04, 2016 TRIM SKIN LESIONS, 2 TO 4 Apr 04, 2017 TRIM SKIN LESIONS, OVER 4 July 18, 2012 TRIM SKIN LESIONS, 2 TO 4 October 03, 2017 TRIM SKIN LESIONS, 2 TO 4 Nov 30, 2021 TRIM SKIN LESIONS, 2 TO 4 Feb 01, 2022 TRIM SKIN LESIONS, 2 TO 4 Apr 10, 2022 TRIM SKIN LESIONS, 2 TO 4 September 28, 2021 TRIM SKIN LESIONS, 2 TO 4 Feb 23, 2021 TRIM SKIN LESIONS, 2 TO 4 May 09, 2021 TRIM SKIN LESIONS, 2 TO 4 May 13, 2020 TRIM SKIN LESIONS, 2 TO 4 July 14, 2021 DEBRIDE NAIL, 1-5 July 18, 2012 TRIM SKIN LESIONS, 2 TO 4 Dec 22, 2020 TRIM SKIN LESIONS, OVER 4 Apr 03, 2013 TRIM NAIL(S) October 30, 2012 TRIM SKIN LESIONS, OVER 4 July 10, 2013 TRIM SKIN LESIONS, OVER 4 Jan 21, 2014 DEBRIDE NAIL, 6 OR MORE May 09, 2021 DEBRIDE NAIL, 1-5 Jan 16, 2013 DEBRIDE NAIL, OR MORE Feb 23, 2021 DEBRIDE NAIL, 6 OR MORE Dec 22, 2020 DEBRIDE NAIL, 6 OR MORE October 18, 2020 TRIM NAIL(S) Jan 16, 2013 DEBRIDE NAIL, 6 OR MORE Feb 01, 2022 DEBRIDE NAIL, 6 OR MORE Nov 30, 2021 DEBRIDE NAIL, 6 OR MORE September 28, 2021 DEBRIDE NAIL, 6 OR MORE July 14, 2021 TRIM SKIN LESIONS, OVER 4 October 16, 2013 Avulsion Plate July 18, 2012 DEBRIDE NAIL, 6 OR MORE Apr 10, 2022 STAT AFO-SFT INTERFCE MATL ADJ FIT July 31, 2012 TRIM SKIN LESIONS, OVER 4 October 04, 2016 Avulsion Plate Apr 04, 2017 Avulsion Plate October 03, 2017 DEBRIDE NAIL, 6 OR MORE Jan 27, 2019 TRIM SKIN LESIONS, OVER 4 Apr 07, 2015 DEBRIDE NAIL, 6 OR MORE Apr 09, 2019 TRIM SKIN LESIONS, OVER 4 October 06, 2015 DEBRIDE NAIL, 6 OR MORE October 07, 2018 DEBRIDE NAIL, 6 OR MORE October 16, 2013 TRIM SKIN LESIONS, OVER 4 Apr 05, 2016 DEBRIDE NAIL, 6 OR MORE Feb 16, 2020 DEBRIDE NAIL, 6 OR MORE Dec 15, 2019 TRIM SKIN LESIONS, OVER 4 Jun 04, 2014 DEBRIDE NAIL, 6 OR MORE October 13, 2019 TRIM SKIN LESIONS, OVER 4 October 05, 2014 DEBRIDE NAIL, 6 OR MORE Jun 12, 2019 TRIM SKIN LESIONS, OVER 4 Jan 06, 2015 DEBRIDE NAIL, 6 OR MORE August 11, 2020 DEBRIDE NAIL, 6 OR MORE May 13, 2020 DEBRIDE NAIL, 6 OR MORE May 06, 2020 RESULTS Name Result Date Reference Range HEMOGLOBIN A1C (GLYCOHEMOGLOBIN) 2022-04-10 TOTAL HEMOGLOBIN (HGBA1C) HEMOGLOBIN A1C (HH) HEMOGLOBIN A1C % (HH) 8.2 ESTIMATED AVG GLUCOSE HEMOGLOBIN A1C (GLYCOHEMOGLOBIN) 2020-12-09 TOTAL HEMOGLOBIN (HGBA1C) HEMOGLOBIN A1C (HH) HEMOGLOBIN A1C % (HH) 7.2 ESTIMATED AVG GLUCOSE HEMOGLOBIN A1C (GLYCOHEMOGLOBIN) 2019-02-20 TOTAL HEMOGLOBIN (HGBA1C) HEMOGLOBIN A1C (HH) HEMOGLOBIN A1C % (HH) 7.0 ESTIMATED AVG GLUCOSE Hemoglobin A1c 2016-01-10 Hemoglobin A1c 7.9 Hemoglobin A1c 2015-01-06 Hemoglobin A1c 8.1 Hemoglobin A1c Hemoglobin A1c 6.0 REASON FOR VISIT Insurance Providers [facility] Member Patient Patient Patient Patient Patient Subscriber Subscriber Subscriber Group Insurance Plan Plan Plan Plan ID Relationship Address Phone Name Date of ID Name Date of No Type Insurance Insurance Insurance Coverage to Subscriber Address Phone Name Dates [employer]ic[employer] [phone] [place] [id number] [facility] [address] Medicare National [phone] [place] [phone] [id number] [address] [employer] [address] [place] [address] Medicare National [phone] [place] [phone] [id number] [employer] [address] [employer] [address] [place] [address] MEDICAL (GENERAL) HISTORY Type Description Date Medical History anemia Medical History Arthritis Medical History asthma Medical History back, hip, knee pain Medical History hyperlipidemia Medical History cataracts Medical History type II diabetes Medical History gall bladder problems Medical History headaches/migraines Medical History hernia Medical History hypertension Medical History lung disease Medical History chicken pox Medical History measles Medical History mumps Medical History reflux Medical History sciatica Medical History sinus conditions Medical History thyroid disorder Medical History joint implants/screws Medical History transfusions Surgical History lap band Surgical History cataract surgery Surgical History blepheroplasty Surgical History cholecystectomy Surgical History oral surgery bone graft 2013 Surgical History oral implants and tissue graft 2013 Surgical History Cervical disc replacement. 05/07/2017 Surgical History Heart Catheterization 01/12/21 Surgical History aortic valve 03/16/21 Hospitalization History [facility], Cervical disc replacement, 1 da y stay. 05/07/2017 Hospitalization History [facility]Systemic G[facility] 9 day stay- 10/2018-01/10/2019 Discharged to rehab-12 days-[facility]
--- OUTSIDE RECORDS SUMMARY | 2022-06-02 10:39 | XMS_ITS | Continuity of Care Document ---
:1945 Author Organization [facility] Care Team Providers Name Role Phone [facility] Unavailable Unavailable Medications Combined list of outpatient medications from Department of Defense and Veterans Affairs facilities. Medications provided include 1) outpatient medications from the last 15 months, and 2) patient-reported medications. Medication Details Route Status Patient Prescription Prescription Last Ordering Order Source Instructions Expires Number Dispense Provider Date Date ALCOHOL USE Topica Active 05/04/2023 [id number] BOMBARDIE ISOPROPYL DIRECTED l 3 R, 2022 Medic al IMPREG TOP WHILE Group 70% PADS CHECKING BLOOD SUGAR TWICE A DAY ALCOHOL Topica Discont 04/19/2022 [id number] BOMBARDIE ISOPROPYL l inued 2 R, 2021 Medical IMPREG TOP Group 70% PADS allopurinol TAKE TWO Oral Active 05/04/2023 [id number] B OMBARDIE (U/D) 100 TABLETS 3 2022 Medica l MG ORAL TAB BY MOUTH Group EVERY DAY allopurinol Oral Discont 04/19/2022 [id number] BOMBAR (U/D) 100 inued 2 R, 2021 Medical MG ORAL TAB Group allopurinol Ordered 05/03/2023 A mbulat 100 mg oral TAKE TWO TABLETS BY MOUTH EV NIKOLSA DAY, # 180 EA, 3 total refill(s), Acute, CINTHIA [Federal Rx: #180 last filled 05/09/22] ory tablet Pharmac y aspirin 81 Ordered 05/03/2023 Am bulat mg oral TAKE ONE TABLET BY MOUTH BETY RY DAY, # 90 EA, 3 total refill(s), Acute, CINTHIA [Federal Rx: #90 last filled 05/09/22] ory delayed Pharmac release y tablet ASPIRIN EC TAKE ONE Oral Active 05/04/2023 [id number] BOMBA RDIE (U/D) 81 MG TABLET 3 R, 2022 Medic al ORAL TBEC BY MOUTH Group EVERY DAY ATORVASTATI TAKE ONE Oral Active 05/04/2023 [id number] B OMBARDIE N 20 MG CAPSULE 3 R, 2022 Medical ORAL TAB BY MOUTH Group EVERY DAY ATORVASTATI Oral Discont 04/19/2022 [id number] BOMBAR N 20 MG inued 2 R, 2021 Medical ORAL TAB Group atorvastati Ordered 05/03/2023 A mbulat n 20 mg TAKE ONE CAPSULE BY MOUTH EV NIKOLAS, # 90 EA, 3 total refill(s), Acute, CINTHIA [Federal Rx: #90 last filled 05/09/22] ory oral tablet Pharmac y DULoxetine TAKE ONE Oral Active 05/04/2023 [id number] BOMBA RDIE 60 MG ORAL CAPSULE 3 R, 2022 Medic al CPDR BY MOUTH Group EVERY DAY DULoxetine Ordered 05/03/2023 Am bulat 60 mg oral TAKE ONE CAPSULE BY MOUTH EV NIKOLAS, # 90 EA, 3 total refill(s), Acute, CINTHIA [Federal Rx: #90 last filled 05/09/22] ory delayed Pharmac release y capsule ferrous TAKE ONE Oral Active 05/04/2023 [id number] BOMBARDI E sulf (U/D) TABLET 3 R, 2022 Medica l 65MG BY MOUTH Group (325MG) EVERY ORAL TAB DAY ferrous Ordered 05/03/2023 Ambul at sulfate 325 TAKE ONE TABLET BY MOUTH , # 90 EA, 3 total refill(s), Acute, CINTHIA [Federal Rx: #90 last filled 05/09/22] ory mg (65 mg Pharmac elemental y iron) oral tablet fluticasone Ordered 05/03/2023 A mbulat CFC free INHALE 2 PUFFS BY MOUTH TWIC E A DAY FOR ASTHMA. RINSE MOUTH OUT AFTER EACH USE, # 36 g, 3 total refill(s), Acute, CINTHIA [Federal Rx: #36 last filled 05/09/22] ory 220 mcg/inh Pharmac inhalation y aerosol FLUTICASONE INHALE 2 Inhala Active 05/04/2023 [id number] B OMBARDIE PROP 220 PUFFS BY tion 3 R, 2022 Medica l MCG INH MOUTH Group AERO [12GM] TWICE A DAY FOR ASTHMA. RINSE MOUTH OUT AFTER EACH USE FLUTICASONE Inhala Discont 04/19/2022 [id number] BOMBA RDIE PROP 220 tion inued 2 R, 2021 Medical MCG INH Group AERO [12GM] FREESTYLE USE Miscel Active 05/04/2023 [id number] BOMBARD IE LITE GLUC DIRECTED laneou 3 R, 2022 Medi fortino TEST STRP TO CHECK s Group [50 EA] BLOOD Route SUGAR And TWICE A Method DAY FREESTYLE Miscel Discont 04/10/2022 [id number] BOMBARD IE LITE GLUC laneou inued 2 R, 2021 Medical TEST STRP s Group [50 EA] Route And Method FUROSEMIDE TAKE TWO Oral 04/19/2022 [id number] B OMBARDIE (U/D) 40 MG TABLETS 2 R, 2021 Medi fortino ORAL TAB BY MOUTH Group TWICE A DAY FUROSEMIDE TAKE ONE Oral Active 05/04/2023 [id number] BOMBA RDIE 80 MG ORAL TABLET 3 R, 2022 Medica l TAB BY MOUTH Group TWICE A DAY furosemide Ordered 05/03/2023 Am bulat 80 mg oral TAKE ONE TABLET BY MOUTH TWI CE A DAY, # 180 EA, 3 total refill(s), Acute, CINTHIA [Federal Rx: #180 last filled 05/09/22] ory tablet Pharmac y GABAPENTIN TAKE ONE Oral Active 05/04/[id number] BOMBA RDIE (U/D) 100 CAPSULE 3 R, 2022 Medica l MG ORAL CAP BY MOUTH Group EVERY MORNING gabapentin TAKE ONE Oral Active 05/04/[address] [id number] BOMBA RDIE (U/D) 400 CAPSULE 3 R, 2022 Medica l MG ORAL CAP BY MOUTH Group EVERY DAY gabapentin Oral Discont 04/19/2022 [id number] BOMBARD IE (U/D) 400 inued 2 R, 2021 Medical MG ORAL CAP Group gabapentin Ordered 05/03/2023 Am bulat 100 mg oral TAKE ONE CAPSULE BY MOUTH EV NIKOLAS MORNING, # 90 EA, 3 total refill(s), Acute, CINTHIA [Federal Rx: #90 last filled 05/09/22] ory capsule Pharmac y gabapentin Ordered 05/03/2023 Am bulat 400 mg oral TAKE ONE CAPSULE BY MOUTH EV NIKOLAS DAY, # 90 EA, 3 total refill(s), Acute, CINTHIA [Federal Rx: #90 last filled 05/09/22] ory capsule Pharmac y glucose Ordered 05/03/2023 Ambul at test strip USE DIRECTED TO CHECK BLO OD SUGAR TWICE A DAY, # 200 EA, 3 total refill(s), Acute, CINTHIA [Federal Rx: #200 last filled 05/09/22] ory (freestyle Pharmac lite) y insulin Ordered 05/03/2023 Ambul at glargine INJECT 100 SUB-CUTANEOUSLY T WICE A DAY, # 180 mL, 3 total refill(s), Acute, CINTHIA [Federal Rx: #180 last filled 05/10/22] ory 100 Pharmac units/mL y subcutaneou s solution Insulin INJECT Subcut Refill 05/04/2023 [id number] BOMBARDIE Glargine, 100 aneous 3 R, 2022 Medical Human SUB-CUTA Group Recombinant NEOUSLY Analog, TWICE A Prefilled DAY Pen (Lantus SoloSTAR Eq.) Solution 100 Units per mL Subcutaneou s Insulin INJECT Subcut Discont 04/19/2022 [id number] BOMBARDI E Glargine, 100 aneous inued 2 R, 2021 Medical Human UNITS Group Recombinant UNDER Analog, THE SKIN Prefilled TWICE A Pen (Lantus DAY SoloSTAR Eq.) Solution 100 Units per mL Subcutaneou s isopropyl Ordered 05/03/2023 Amb ulat alcohol 70% USE DIRECTED WHILE CHECKI NG BLOOD SUGAR TWICE A DAY, # 200 EA, 3 total refill(s), Acute, CINTHIA [Federal Rx: #200 last filled 05/09/22] ory topical pad Pharmac y K-TAB EQ 10 TAKE ONE Oral Active 05/04/2023 [id number] B OMBARDIE MEQ ORAL TABLET 3 R, 2022 Medical TBER BY MOUTH Group TWICE A DAY K-TAB EQ 10 Oral Discont 04/19/2022 [id number] BOMBAR MEQ ORAL inued 2 R, 2021 Medical TBER Group lancet one Ordered 05/03/2023 Am bulat touch ultra USE DIRECTED TO CHECK BLO OD SUGAR TWICE A DAY, # 200 EA, 3 total refill(s), Acute, CINTHIA [Federal Rx: #200 last filled 05/09/22] ory soft Pharmac y Lancets USE Miscel Active 05/04/2023 [id number] BOMBARDIE Device Not DIRECTED laneou 3 R, 2022 Med ical Specified TO CHECK s Group Miscellaneo BLOOD Route us SUGAR And TWICE A Method DAY Lancets USE Miscel Discont 09/12/2022 [id number] BOMBARDI E Device Not DIRECTED laneou inued 2 R, 2021 Med ical Specified TO CHECK s Group Miscellaneo BLOOD Route us SUGAR And TWICE A Method DAY Lancets USE 2 Miscel 07/18/2021 [id number] BOMBARDIE Device Not TIMES A laneou 2 R, 2021 Medi fortino Specified DAY s Group Miscellaneo DIRECTED Route us And Method levothyroxi TAKE ONE Oral Active 05/04/2023 [id number] B OMBARDIE ne (U/D) 75 TABLET 3 R, 2022 Medic al MCG ORAL BY MOUTH Group TAB EVERY DAY levothyroxi Oral Discont 04/19/2022 [id number] BOMBAR ne (U/D) 75 inued 2 R, 2021 Medica l MCG ORAL Group TAB levothyroxi Ordered 05/03/2023 A mbulat ne 75 mcg TAKE ONE TABLET BY MOUTH BETY RY DAY, # 90 EA, 3 total refill(s), Acute, CINTHIA [Federal Rx: #90 last filled 05/09/22] ory (0.075 mg) Pharmac oral tablet y MECLIZINE TAKE ONE Oral Active 05/04/2023 [id number] BOMBAR 25 MG ORAL TABLET 3 R, 2022 Medica l TAB BY MOUTH Group TWICE A DAY NEEDED meclizine Ordered 05/03/2023 Amb ulat 25 mg oral TAKE ONE TABLET BY MOUTH TWI CE A DAY NEEDED, # 30 EA, 3 total refill(s), Acute, CINTHIA [Federal Rx: #30 last filled 05/09/22] ory tablet Pharmac y needle pen Ordered 05/03/2023 Am bulat 31g 8mm USE DIRECTED TO INJECT IN SULIN TWICE A DAY, # 200 EA, 3 total refill(s), Acute, CINTHIA [Federal Rx: #200 last filled 05/09/22] ory Pharmac y OMEPRAZOLE TAKE ONE Oral Active 05/04/[id number] BOMBA RDIE (U/D) 20 MG CAPSULE 3 R, 2022 Medi fortino ORAL CPDR BY MOUTH Group EVERY DAY OMEPRAZOLE Oral Discont 04/19/2022 [id number] BOMBARD IE (U/D) 20 MG inued 2 R, 2021 Medica l ORAL CPDR Group omeprazole Ordered 05/03/2023 Am bulat 20 mg oral TAKE ONE CAPSULE BY MOUTH EV NIKOLAS DAY, # 90 EA, 3 total refill(s), Acute, CINTHIA [Federal Rx: #90 last filled 05/09/22] ory delayed Pharmac release y capsule PEN NEEDLE USE Miscel Active 05/04/2023 [id number] BOMBAR 31G X 5/16 DIRECTED laneou 3 R, 2022 Med ical (8 MM) TO s Group [100] INJECT Route INSULIN And TWICE A Method DAY PEN NEEDLE USE TO Miscel Discont 04/19/2022 [id number] BOM BARDIE 31G X 5/16 INJECT laneou inued 2 R, 2021 Medic al (8 MM) INSULIN s Group [100] TWICE A Route DAY And DIRECTED Method potassium Ordered 05/03/2023 Amb ulat chloride 10 TAKE ONE TABLET BY MOUTH TWI CE A DAY, # 180 EA, 3 total refill(s), Acute, CINTHIA [Federal Rx: #180 last filled 05/09/22] ory mEq oral Pharmac tablet, y extended release SITagliptin TAKE ONE Oral Active 05/04/2023 [id number] B OMBARDIE 100 MG ORAL TABLET 3 R, 2022 Medic al TAB BY MOUTH Group EVERY DAY SITagliptin Oral Discont 04/19/2022 [id number] BOMBAR 100 MG ORAL inued 2 R, 2021 Medica l TAB Group SITagliptin Ordered 05/03/2023 A mbulat 100 mg oral TAKE ONE TABLET BY MOUTH BETY RY DAY, # 90 EA, 3 total refill(s), Acute, CINTHIA [Federal Rx: #90 last filled 05/09/22] ory tablet Pharmac y TIOTROPIUM INHALE 2 Inhala Active 05/04/2023 [id number] FLYNN MBARDIE (MIST) 1.25 PUFFS BY tion 3 R, 2022 Med ical MCG INH [4 MOUTH Group GM] DAILY TIOTROPIUM Inhala Discont 04/19/2022 [id number] BOMBAR (MIST) 1.25 tion inued 2 R, 2021 Medica l MCG INH [4 Group GM] tiotropium Ordered 05/03/2023 Am bulat 1.25 INHALE 2 PUFFS BY MOUTH JORGE Y, # 12 g, 3 total refill(s), Acute, CINTHIA [Federal Rx: #12 last filled 05/09/22] ory mcg/inh Pharmac inhalation y aerosol valsartan TAKE TWO Oral 04/19/[id number] BOMBA RDIE (U/D) 40 MG TABLETS 2 R, LUCRETIA 2021 Medi fortino ORAL TAB (80 MG) Group BY MOUTH EVERY DAY valsartan TAKE ONE Oral Active 05/04/2023 [id number] BOMBAR (U/D) 80 MG TABLET 3 R, LUCRETIA 2022 Medic al ORAL TAB BY MOUTH Group EVERY DAY valsartan Ordered 05/03/2023 Amb ulat 80 mg oral TAKE ONE TABLET BY MOUTH BETY RY DAY, # 90 EA, 3 total refill(s), Acute, CINTHIA [Federal Rx: #90 last filled 05/09/22] ory tablet Pharmac y Immunizations Combined list of available immunizations from the Department of Defense and Veterans Affairs facilities. Immunization Series Date Administered Site Reaction Lot CVX Drug St atus Comments Source Given By Number Code Patient Portal Representative pneumococcal [id number] 33 Merck & complet p neumococcal polysaccharide, 23 valent Ambulat polysaccharid 2011 Arm [employer] ed 12/15/11 ory e, 23 valent Given P harmac y tetanus, [id number] sanofi complet tetan us, diphtheria, acellular pertussis Ambulat diphtheria, 2012 Arm pasteur ed 2 ory acellular Given Phar mac pertu is y hepatitis A [id number] GlaxoSmithKli com plet hepatitis A adult vaccine Ambulat adult vaccine 2011 Arm 2AA ne ed 2 ory Given Pharmac y hepatitis A 1 , [id number] SmithKline com plet hepatitis DoD vaccine, 2011 Provider 2AA (SKB) ed A adult dosage vaccine , adult dosage tetanus 1 , [id number] Sanofi complet tet anus DoD toxoid, 2011 Provider Pasteur ([facility]) ed t oxoid, reduced reduced diphtheria diphtheri toxoid, and a toxoid , acellular and pertu is acellular vaccine, pertussis adsorbed vaccine, adsorbed pneumococcal 1 , [id number] Merck (MSD) co mplet pneumococ DoD polysaccharid 2011 Provider ed fortino e vaccine, 23 polysa cch valent aride vaccine, 23 valent zoster [id number] Merck & complet zoster v accine live Ambulat vaccine live 2008 Arm [employer] ed ory Given Pharmac y zoster 1 08/07/ Unknown, [id number] Merck (MSD) complet z ross DoD vaccine, live 2008 Provider ed vac cine, live influenza 16 complet influen za virus vaccine, whole virus Ambulat virus 2002 Arm ed 02/08/03 ory vaccine, Given Pharm ac whole virus y influenza 1 Unknown, 16 () complet infl uenza DoD virus 2002 Provider ed virus vaccine, vaccine, whole virus whole virus influenza [id number] sanofi complet infl uenza virus vaccine, whole virus Ambulat virus 2001 Arm pasteur ed 02/13/02 ory vaccine, Given Pharm ac whole virus y influenza 1 Unknown, [id number] Sanofi complet i nfluenza DoD virus 2001 Provider Pasteur ([facility]) ed vir us vaccine, vaccine, whole virus whole virus tuberculin [id number] [place] complet Patient Ambulat purified 2001 Arm Labs ed Tolerance o ry protein : Pharma c derivative Negative y tuberculin 1 , [id number] [place] compl et tuberculi DoD skin test; 2001 Provider (CON) ed n skin purified test; protein purified derivative protein solution, derivativ intradermal e solution, intraderm al tetanus-dipht Left 09 complet tet anus-diphth toxoids (Td) adult/adol Ambulat h toxoids 1999 Arm ed 12/20/99 or y (Td) Given Pharmac adult/adol y tetanus and 1 Unknown, 09 () complet te tanus DoD diphtheria 1999 Provider ed and toxoids, diphtheri adsorbed, a preservative toxoids , free, for adsorbed, adult use (2 preserv at Lf of tetanus manolo fr ee, toxoid and 2 for kala lt Lf of use (2 Lf diphtheria of toxoid) tetanus toxoid and 2 Lf of diphtheri a toxoid) tuberculin Left 96 complet Patien t Ambulat purified 1996 Arm ed Tolerance o ry protein : Pharma c derivative Negative y tuberculin 1 05/01/ Unknown, 96 () complet tub erculi [facility] skin test; 1996 Provider ed n skin purified test; protein purified derivative protein solution, derivativ intradermal e solution, intraderm al hepatitis B Left 43 complet hepat itis B adult vaccine Ambulat adult vaccine 1993 Arm ed 4 ory Given Pharmac y hepatitis B 3 09/27/ Unknown, 43 () complet he patitis [facility] vaccine, 1993 Provider ed B adult dosage vaccine , adult dosage hepatitis B Left 43 complet hepat itis B adult vaccine Ambulat adult vaccine 1992 Arm ed ory Given Pharmac y hepatitis B 2 04/26/ Unknown, 43 () complet he patitis [facility] vaccine, 1992 Provider ed B adult dosage vaccine , adult dosage hepatitis B Left 43 complet hepat itis B adult vaccine Ambulat adult vaccine 1992 Arm ed ory Given Pharmac y hepatitis B 1 03/23/ Unknown, 43 () complet he patitis DoD vaccine, 1992 Provider ed B adult dosage vaccine , adult dosage poliovirus Left complet poliov irus vaccine, live, oral Ambulat vaccine, 1973 Arm ed 08/28/73 ory live, oral Given Pha rmac y trivalent 1 Unknown, 02 () complet triv alent DoD poliovirus 1973 Provider ed poliov iru vaccine, s live, oral vaccine, live, oral Vital Signs Combined list of inpatient and outpatient Vital Signs from Department of Defense and Veterans Affairs, ranging from 12 months to all on record, depending upon the facility. Vital Sign Value Date Comments Source No data available for this section Ambulatory Pharmacy Encounters Combined list of: 1) Encounters from Department of Veterans Affairs facilities going back up to the last 18 months. 2) Encounters from the Department of Defense facilities going back up to 280 months. Location Location Encounter Encounter Reason Attending ADM DC Stat us Disposition Source Details Type Number For Provider Date Date Visit History [id number] 02/16 02/16 [place] [id number] /2021 Facilit y Access Lifetime [id number] 02/16 Ambula t Pharmacy [facility] ory Pharmac y Procedures Combined list of: 1) Procedures from Department of Veterans Affairs facilities going back up to the last 18 months, not all [place] non-surgical procedures are included; 2) All procedures from the Department of Defense facilities. Procedure Procedure Type Code Date Perfomer Comments Sourc e PROFESSIONAL 08/31/2000 [facility] SERVICES FOR ALLERGEN IMMUNOTHERAPY NOT INCLUDING PROVISION OF ALLERGENIC EXTRACTS; SINGLE INJECTION PROFESSIONAL 08/24/2000 [facility] FOR ALLERGEN IMMUNOTHERAPY NOT INCLUDING PROVISION OF ALLERGENIC EXTRACTS; SINGLE INJECTION PROFESSIONAL 08/17/2000 [facility] FOR ALLERGEN IMMUNOTHERAPY NOT INCLUDING PROVISION OF ALLERGENIC EXTRACTS; SINGLE INJECTION PROFESSIONAL 08/14/2000 [facility] SERVICES FOR ALLERGEN IMMUNOTHERAPY NOT INCLUDING PROVISION OF ALLERGENIC EXTRACTS; SINGLE INJECTION PROFESSIONAL 08/13/2000 [facility] SERVICES FOR ALLERGEN IMMUNOTHERAPY NOT INCLUDING PROVISION OF ALLERGENIC EXTRACTS; SINGLE INJECTION PROFESSIONAL 08/06/2000 [facility] SERVICES FOR ALLERGEN IMMUNOTHERAPY NOT INCLUDING PROVISION OF ALLERGENIC EXTRACTS; SINGLE INJECTION PROFESSIONAL 08/03/2000 [facility] SERVICES FOR ALLERGEN IMMUNOTHERAPY NOT INCLUDING PROVISION OF ALLERGENIC EXTRACTS; SINGLE INJECTION PROFESSIONAL 06/19/2000 [facility] SERVICES FOR ALLERGEN IMMUNOTHERAPY NOT INCLUDING PROVISION OF ALLERGENIC EXTRACTS; SINGLE INJECTION PROFESSIONAL 05/24/2000 [facility] SERVICES FOR ALLERGEN IMMUNOTHERAPY NOT INCLUDING PROVISION OF ALLERGENIC EXTRACTS; SINGLE INJECTION PROFESSIONAL 05/10/2000 [facility] SERVICES FOR ALLERGEN IMMUNOTHERAPY NOT INCLUDING PROVISION OF ALLERGENIC EXTRACTS; SINGLE INJECTION PROFESSIONAL 04/12/2000 [facility] SERVICES FOR ALLERGEN IMMUNOTHERAPY NOT INCLUDING PROVISION OF ALLERGENIC EXTRACTS; SINGLE INJECTION PROFESSIONAL 03/28/2000 [facility] SERVICES FOR ALLERGEN IMMUNOTHERAPY NOT INCLUDING PROVISION OF ALLERGENIC EXTRACTS; SINGLE INJECTION PROFESSIONAL 02/22/2000 [facility] SERVICES FOR ALLERGEN IMMUNOTHERAPY NOT INCLUDING PROVISION OF ALLERGENIC EXTRACTS; SINGLE INJECTION PROFESSIONAL 01/26/2000 [facility] SERVICES FOR ALLERGEN IMMUNOTHERAPY NOT INCLUDING PROVISION OF ALLERGENIC EXTRACTS; SINGLE INJECTION PROFESSIONAL 01/12/2000 [facility] SERVICES FOR ALLERGEN IMMUNOTHERAPY NOT INCLUDING PROVISION OF ALLERGENIC EXTRACTS; SINGLE INJECTION No data available Am bulatory for this section Pha rmacy Social History Combined list of available smoking, tobacco, and other social history from [facility]. Social History Type Response Date Comment Source This section is an empty social history section. DoD Assessment and Plan Combined list of future care activities from Department of Defense and Veterans Affairs facilities (e.g., assessment and plan notes, appointments, orders, and referrals). Additional future care activities may be listed in the Plan of Care section. Result Assessment and Plan Date Source Assessment and Plan No data available for this 06/02/2022 A mbulatory Pharmacy section Functional Status Combined list of recent functional and cognitive assessments recorded at Department of Defense and [facility] Affairs ([facility] Functional Park Measurement (FIM) Scale: 1 = Total Assistance (Subject = 0% +), 2 = Maximal Assistance (Subject = 25% +), 3 = Moderate Assistance (Subject = 50% +), 4 = Mi nimal Assistance (Subject = 75% +), 5 = Supervision, 6 = Modified Park (Device), 7 = Complete Park (Timely, Safely). Assessment Source Assessment Type Assessment Assessment Assessmen t Date/Time Skill Score Details No data available for this section
--- OUTSIDE RECORDS SUMMARY | 2022-06-02 10:39 | XMS_ITS ---
:1945 Author Organization Omid Jimenes MD Address [address] [place], [place] [id number] Care Team Providers Name Role Phone Omid Jimenes Unavailable Unavailable Omid Jimenes Unavailable [phone] Allan Elam Unavailable Unavailable Chris Nunes Unavailable Unavailable ADRIAN, MARCO Unavailable Unavailable Schacstein, Case Unavailable Unavailable BAY, CARLO Unavailable Unavailable Rupert Canchola Unavailable Unavailable Kavita Diaz Unavailable Unavailable PROBLEMS Type Condition ICD9-CM LXX20-AV Onset Condition SNOMED Cod e Code Code Dates Status Problem Mild intermittent J45.20 Active 42 2796472 asthma without complication Problem Pure E78.00 Active 442748355 hypercholesterolemia Problem Acquired hypothyroidism E03.9 Active 017270799 Problem Type 2 diabetes E11.9 Active 3134 83659 mellitus without complication Problem Morbid obesity due to E66.01 Active 450542645 excess calories Problem Tubular adenoma of D12.6 Active 4 92813899 colon Problem Hypercalcemia E83.52 Active 209750 09 Problem Arthritis pain of hand M19.049 Active Problem OAB (overactive N32.81 Active 0700 54102 bladder) Problem Essential hypertension I10 Active 77431336 Problem GERD (gastroesophageal K21.9 Active 618490843 reflux disease) Problem Arthritis M19.90 Active 3464050 Problem Hand arthritis M19.049 Active 96502 9005 Problem Hemoptysis R04.2 Active 06427766 Problem Arthritis pain of M19.019 Active 20 7127236 shoulder Problem Body mass index (BMI) Z68.42 Active 954271829 45.0-49.9, adult Problem Moderate persistent J45.41 Active [id number] asthma with acute exacerbation Problem Acute systolic I50.21 Active 51493 4009 congestive heart failure Problem CLEVE (obstructive sleep G47.33 Active 65052046 apnea) Problem Iron deficiency anemia D50.0 Active 117655312 due to chronic blood loss Problem Aortic valve disorder I35.9 Active 8790837 Problem H/O aortic valve Z95.2 Active 285 [id number] replacement Problem Aortic valve stenosis, I35.0 Active 7056312 unspecified etiology Problem History of hematuria Z87.448 Active 772567066 Problem Diastolic dysfunction I51.9 Active 1072436 Problem Vitamin D deficiency E55.9 Active 65192079 Problem Liver cyst K76.89 Active 23112481 Problem Other specified N95.8 Active 2666 96066 menopausal and perimenopausal disorders ALLERGIES Substance Reaction Event Type Date Status quinolones knee pain Non Drug Allergy Mar, Active sulfa GI UPSET Non Drug Allergy Mar, Active bacitracin oint eye swelling Non Drug Allergy Mar, Active tobradex redness swelling Non Drug Allergy Mar, Active Lipitor cramps Drug Allergy Mar, Active Amoxicillin Unknown Drug Allergy Mar, Active Pravachol cramps Drug Allergy Mar, Active ENCOUNTERS Encounter Location Date Diagnosis Omid Jimenes MD [address] Apr, [address] [place], [place] [id number] Omid Jimenes MD [address] Jan, [address] [place], [place] [id number] Omid Jimenes MD [address] [place] [address] Drive Jan, Type 2 di abetes mellitus [address] [place], without compl ication E11.9 ; [place] [id number] Essential hypert ension I10 ; Mild intermitten t asthma without complica tion J45.20 ; Acquired hypothy roidism E03.9 ; Pure hypercholes terolemia E78.00 ; GERD (g astroesophageal reflux disease) K21.9 ; Acute systolic congest karan heart failure I50.21 ; Depression screen Z13.31 an d Encounter for screening for ot her viral diseases Z11.59 Omid Jimenes MD [address] Jan, Moderate persistent asthma with [address] [place], acute exacerb ation J45.41 and [place] [id number] COVID-19 U07.1 Omid Jimenes MD [address] Jan, Blood kj ts for routine general [address] [place], physical exam ination Z00.00 ; [place] [id number] Acquired hypothy roidism E03.9 ; Type 2 diabetes mellitus without complica tion E11.9 ; Essential hypert ension I10 ; Pure hypercholes terolemia E78.00 ; Acute s ystolic congestive heart failure I50.21 ; Vitamin D defi ciency E55.9 and Iron deficie ncy anemia due to chronic blood loss D50.0 Omid Jimenes MD [address] Oct, Type 2 di abetes mellitus [address] [place], without compl ication E11.9 ; [place] [id number] Cerumen impactio n H61.20 ; Mild intermittent ast hma without complication J45 .20 and Encounter for sc reening for other viral dise ases Z11.59 Omid Jimenes MD [address] Jul, Type 2 di abetes mellitus [address] [place], without compl ication E11.9 ; [place] [id number] Mild intermitten t asthma without complica tion J45.20 ; Cerumen in audit ory canal on examination H61. 20 ; Tubular adenoma of colon D12.6 and Encounter for sc reening for other viral dise ases Z11.59 Omid Jimenes MD [address] May, Type 2 di abetes mellitus [address] [place], without compl ication E11.9 [place] [id number] Omid Jimenes MD [address] Apr, Type 2 di abetes mellitus [address] [place], without compl ication E11.9 ; [place] [id number] Mild intermitten t asthma without complica tion J45.20 ; H/O aortic valve replacement Z95.[address] for screening for ot her viral diseases Z11.59 Omid Jimenes MD [address] Mar, [address] [place] [id number] Omid Jimenes MD [address] Mar, Type 2 di abetes mellitus [address] [place] [address], without compl ication E11.9 ; [place] [id number] Mild intermitten t asthma without complica tion J45.20 ; H/O aortic valve replacement Z95.2 ; Pain man agement R52 and Encounter for sc reening for other viral dise ases Z11.59 Omid Jimenes MD [address] Feb, [address] [place], [place] [id number] Omid Jimenes MD [address] Jan, Type 2 di abetes mellitus [address] [place], without compl ication E11.9 ; [place] [id number] Acquired hypothy roidism E03.9 ; Mild intermitten t asthma without complica tion J45.20 ; Encounter for im munization Z23 ; Aortic valve d isorder I35.9 ; Essential hypert ension I10 ; Pure hypercholes terolemia E78.00 ; GERD (g astroesophageal reflux disease) K21.9 ; Arthritis M19.90 ; OAB (overactive blad radha) N32.81 ; Tubular adenoma of colon D12.6 and Other specif ied menopausal and perimenopaus al disorders N95.8 Omid Jimenes MD [address] Jan, Suite [facility] [place] [id number] Omid Jimenes MD [address] Jan, Type 2 di abetes mellitus [address] [place] [address], without compl ication E11.9 ; [place] [id number] Acquired hypothy roidism E03.9 ; Aortic valve dis order I35.9 ; Essential hypert ension I10 and Pure hypercholes terolemia E78.00 Omid Jimenes MD [address] Dec, Encounter for immunization Z23 [address] [place] [id number] Omid Jimenes MD [address] Nov, Type 2 di abetes mellitus [address] [place] [address], without compl ication E11.9 ; [place] [id number] Iron deficiency E61.1 ; Aortic valve stenosis, unspecified etiology I35.0 a nd Encounter for screening fo r other viral diseases Z11.59 Omid Jimenes MD [address] Nov, [address] [place] [id number] Omid Jimenes MD [address] Oct, Suite [facility] [place] [id number] Omid Jimenes MD [address] Sep, Iron defi ciency anemia due to [address] [place], chronic blood loss D50.0 ; Type [place] [id number] 2 diabetes melli tus without complication E11 .9 and Encounter for sc reening for other viral dise ases Z11.59 Omid Jimenes MD [address] August, [address] [place] [id number] Omid Jimenes MD [address] August, Suite [facility] [place] [id number] Omid Jimenes MD [address] Jul, Type 2 di abetes mellitus [address] [place], without compl ication E11.9 ; [place] [id number] Aortic valve dis order I35.9 ; Essential hypert ension I10 and Encounter for sc reening for other viral dise ases Z11.59 Omid Jimenes MD [address] Jul, Type 2 di abetes mellitus [address] [place], without compl ication E11.9 [place] [id number] Omid Jimenes MD [address] Apr, Suite [facility] [place] [id number] Omid Jimenes MD [address] Apr, Mild inte rmittent asthma [address] [place], without compl ication J45.20 ; [place] [id number] Encounter for sc reening for other viral dise ases Z11.59 ; History of hip r eplacement, unspecified late rality Z96.649 and History of C lostridioides difficile coliti s Z86.19 Omid Jimenes MD [address] Apr, Suite [facility] [place] [id number] Omid Jimenes MD [address] Jan, [address] [place] [id number] Omid Jimenes MD [address] Jan, Acquired hypothyroidism E03.9 ; [address] [place], Type 2 diabet es mellitus [place] [id number] without complica tion E11.9 ; Mild intermitten t asthma without complica tion J45.20 ; Essential hypert ension I10 ; Pure hypercholes terolemia E78.00 ; Tubular adenoma of colon D12.6 ; Ot her specified menopausal and p erimenopausal disorders N95.8 ; Breast cancer screening Z12.31 ; History of gout Z87.39 and Aortic valve stenosis, unspec ified etiology I35.0 Omid Jimenes MD [address] Jan, [address] [place], [place] [id number] Omid Jimenes MD [address] Jan, Labyrinth itis of both ears [address] [place], H83.03 [place] [id number] Omid Jimenes MD [address] Dec, Encounter for immunization Z23 [address] [place] [id number] Omid Jimenes MD [address] Dec, Labyrinth itis of both ears [address] [place], H83.03 [place] [id number] Omid Jimenes MD [address] Nov, Labyrinth itis of both ears [address] [place], H83.03 [place] [id number] Omid Jimenes MD [address] Oct, Labyrinth itis of both ears [address] [place], H83.03 [place] [id number] Omid Jimenes MD [address] Oct, Labyrinth itis of both ears [address] [place], H83.03 ; Mild intermittent [place] [id number] asthma without c omplication J45.20 and Encou nter for screening for ot her viral diseases Z11.59 Omid Jimenes MD [address] Jun, Essential hypertension I10 [address] [place] [id number] Omid Jimenes MD [address] May, History o f gout Z87.39 [address] [place] [id number] Omid Jimenes MD [address] Apr, [address] [place] [id number] Omid Jimenes MD [address] Apr, Mild inte rmittent asthma [address] [place], without compl ication J45.20 ; [place] [id number] Type 2 diabetes mellitus without complica tion E11.9 and Nontraumatic tea r of rotator cuff, unspecifie d laterality, unspecified tear extent M75.100 Omid Jimenes MD [address] Apr, [address] [place] [id number] Omid Jimenes MD [address] Jan, Acquired hypothyroidism E03.9 [address] [place], [place] [id number] Omid Jimenes MD [address] Jan, [address] [place], [place] [id number] Omid Jimenes MD [address] Jan, Acquired hypothyroidism E03.9 ; [address] [place], Type 2 diabet es mellitus [place] [id number] without complica tion E11.9 ; Mild intermitten t asthma without complica tion J45.20 ; Essential hypert ension I10 ; Pure hypercholes terolemia E78.00 ; GERD (g astroesophageal reflux disease) K21.9 ; OAB (overactive blad radha) N32.81 ; Morbid obesity d ue to excess calories E66.01 ; Acute systolic congest karan heart failure I50.21 ; Depression screening negati ve Z13.31 ; Vitamin D defici ency E55.9 and History of gout Z87.39 Omid Jimenes MD [address] Dec, Type 2 di abetes mellitus [address] [place] [address], without compl ication E11.9 ; [place] [id number] Aortic valve dis order I35.9 ; Essential hypert ension I10 ; Moderate persist ent asthma with acute exacerbati on J45.41 ; Acute systolic c ongestive heart failure I50.21 ; Pure hypercholesterol emia E78.00 and Low magnesium le reanna R79.0 Omid Jimenes MD [address] Dec, [address] [place] [id number] Omid Jimenes MD [address] Dec, Type 2 di abetes mellitus [address] [place] [address], without compl ication E11.9 ; [place] [id number] Aortic valve dis order I35.9 ; Essential hypert ension I10 ; Moderate persist ent asthma with acute exacerbati on J45.41 ; Encounter for im munization Z23 and Acute systol ic congestive heart failure I5 0.21 Omid Jimenes MD [address] Nov, [address] [place] [id number] Omid Jimenes MD [address] Oct, [address] [place] [id number] Omid Jimenes MD [address] Sep, Hypokalem ia E87.6 ; Elevated [address] [place], BUN R79.9 ; A cute systolic [place] [id number] congestive heart failure I50.21 ; Acute drug-ind uced gout of left hand M10.24 2 and Mild intermittent ast hma without complication J45 .20 Omid Jimenes MD [address] Sep, [address] [place] [id number] Omid Jimenes MD [address] Sep, [address] [place] [id number] Omid Jimenes MD [address] Sep, [address] [place] [id number] Omid Jimenes MD [address] Sep, Hypokalem ia E87.6 [address] [place] [id number] Omid Jimenes MD [address] Sep, Liver cys t K76.89 and [address] [place], Pre-procedura l laboratory [place] [id number] examination Z01. 812 Omid Jimenes MD [address] August, Weakness R53.1 ; Type 2 [address] [place], diabetes kel itus without [place] [id number] complication E11 .9 ; Yeast infection involv ing the vagina and surrounding area B37.3 ; Acute systolic c ongestive heart failure I50.21 ; Elevated BUN R79.9 and Acute drug-induced gout of left kimble d M10.242 Omid Jimenes MD [address] August, [address] [place] [id number] Omid Jimenes MD [address] Jul, Weakness R53.1 [address] [place] [id number] Omid Jimenes MD [address] Jul, Acute sys tolic congestive heart [address] [place], failure I50.2 1 ; Liver cyst [place] [id number] K76.89 ; Type 2 diabetes mellitus without complication E11.9 ; Yeast in fection involving the va abundio and surrounding area B37.3 and Weakness R53.1 Omid Jimenes MD [address] Jul, Acute sys tolic congestive heart [address] [place], failure I50.2 1 [place] [id number] Omid Jimenes MD [address] Jun, [address] [place], [place] [id number] Omid Jimenes MD [address] Jun, Acute sys tolic congestive heart [address] [place], failure I50.2 1 and Liver cyst [place] [id number] K76.89 Omid Jimenes MD [address] Jun, [address] [place], [place] [id number] Omid Jimenes MD [address] May, [address] [place], [place] [id number] Omid Jimenes MD [address] May, Moderate persistent asthma with [address] [place], acute exacerb ation J45.41 ; [place] [id number] Type 2 diabetes mellitus without complica tion E11.9 ; Liver cyst K76.8 9 and Encounter for preprocedura l laboratory examination Z01. 812 Omid Jimenes MD [address] May, [address] [place], [place] [id number] Omid Jimenes MD [address] Apr, Moderate persistent asthma with [address] [place], acute exacerb ation J45.41 and [place] [id number] Type 2 diabetes mellitus without complica tion E11.9 Omid Jimenes MD [address] Apr, Acquired hypothyroidism E03.9 ; [address] [place], Type 2 diabet es mellitus [place] [id number] without complica tion E11.9 ; Essential hypert ension I10 ; Pure hypercholes terolemia E78.00 ; GERD (g astroesophageal reflux disease) K21.9 ; OAB (overactive blad radha) N32.81 and Mild intermitten t asthma without complica tion J45.20 Omid Jimenes MD [address] Apr, Moderate persistent asthma with [address] [place], acute exacerb ation J45.41 and [place] [id number] Type 2 diabetes mellitus without complica tion E11.9 Omid Jimenes MD [address] Apr, Acute sys tolic congestive heart [address] [place], failure I50.2 1 ; Type 2 [place] [id number] diabetes mellitu s without complication E11 .9 and Moderate persistent asthm a with acute exacerbation J45 .41 Omid Jimenes MD [address] Apr, [address] [place] [id number] Omid Jimenes MD [address] Mar, Shortness of breath R06.02 [address] [place], Hand arthriti s M19.049 [place] [id number] Omid Jimenes MD [address] Feb, Type 2 di abetes mellitus [address] [place], without compl ication E11.9 ; [place] [id number] CLEVE (obstructive sleep apnea) G47.33 ; Elevate d BUN R79.9 and Encounter for im munization Z23 Omid Jimenes MD [address] Jan, Diastolic dysfunction I51.9 [address] [place] [id number] Omid Jimenes MD [address] Jan, Hypokalem ia E87.6 [address] [place] [id number] Omid Jimenes MD [address] Jan, [address] [place] [id number] Omid Jimenes MD [address] Dec, [address] [place] [id number] Omid Jimenes MD [address] Dec, Acquired hypothyroidism E03.9 ; [address] [place], Type 2 diabet es mellitus [place] [id number] without complica tion E11.9 ; Essential hypert ension I10 ; Pure hypercholes terolemia E78.00 ; Aortic valve stenosis, unspecified etio logy I35.0 ; GERD (gastroesop hageal reflux disease) K21.9 ; Depression screening Z13.89 and Hypercalcemia E8 3.52 Omid Jimenes MD [address] Dec, [address] [place] [id number] Omid Jimenes MD [address] Dec, Acquired hypothyroidism E03.9 ; [address] [place], Type 2 diabet es mellitus [place] [id number] without complica tion E11.9 ; History of hemat uria Z87.448 ; Aortic valve dis order I35.9 ; Essential hypert ension I10 ; Pure hypercholes terolemia E78.00 ; OAB (ov eractive bladder) N32.81 ; Morbid obesity due to e xcess calories E66.01 ; Acute s ystolic congestive heart failure I50.21 and CLEVE (obstruc tive sleep apnea) G47.33 Omid Jimenes MD [address] Dec, [address] [place] [id number] Omid Jimenes MD [address] Dec, Acute sys tolic congestive heart [address] [place], failure I50.2 1 ; Type 2 [place] [id number] diabetes mellitu s without complication E11 .9 ; Hypokalemia E87. 6 ; Encounter for immunization Z23 and CLEVE (obstructive sle ep apnea) G47.33 Omid Jimenes MD [address] Dec, [address] [place] [id number] Omid Jimenes MD [address] Nov, Acute sys tolic congestive heart [address] [place], failure I50.2 1 [place] [id number] Omid Jimenes MD [address] Nov, [address] [place] [id number] Omid Jimenes MD [address] Nov, Moderate persistent asthma with [address] [place], acute exacerb ation J45.41 ; [place] [id number] Thrush B37.0 and Leg edema R60.0 Omid Jimenes MD [address] Nov, [address] [place] [id number] Omid Jimenes MD [address] Nov, [address] [place] [id number] Omid Jimenes MD [address] Oct, Encounter for immunization Z23 [address] [place] [id number] Omid Jimenes MD [address] Oct, [address] [place] [id number] Omid Jimenes MD [address] Sep, Type 2 di abetes mellitus [address] [place], without compl ication E11.9 ; [place] [id number] Tubular adenoma of colon D12.6 ; Pure hyperchol esterolemia E78.00 ; Essenti al hypertension I10 and Function al diarrhea K59.1 Omid Jimenes MD [address] Jun, Type 2 di abetes mellitus [address] [place], without compl ication E11.9 ; [place] [id number] Morbid obesity d ue to excess calories E66.01 and Clostridial gastroenteritis A04.8 Omid Jimenes MD [address] [facility] [address] Mar, Type 2 di abetes mellitus [address] [place], without compl ication E11.9 ; [place] [id number] Pre-op evaluatio n Z01.818 ; Mild intermitten t asthma without complica tion J45.20 ; Arthritis pain o f hand M19.049 ; Essential hype rtension I10 and Acquired hyp othyroidism E03.9 Omid Jimenes MD [address] [facility] [address] Mar, Pure hype rcholesterolemia [address] [place] [address], E78.00 [place] [id number] Omid Jimenes MD [address] Feb, [address] [place], [place] [id number] Omid Jimenes MD [address] [facility] [address] Feb, [address] [place] [address], [place] [id number] Omid Jimenes MD [address] [place] [address] Drive Dec, Pure hype rcholesterolemia [address] [place], E78.00 ; Type 2 diabetes [place] [id number] mellitus without complication E11.9 ; Acquired hypothyroidism E03.9 ; Morbid o besity due to excess calories E66.01 ; Menopause Z78.0 ; Breast cancer screening Z12.31 ; Depression screening Z13.89 ; Hoarseness of voice R49.0 a nd Encounter for immunization Z23 Omid Jimenes MD [address] [facility] [address] Dec, Type 2 di abetes mellitus [address] [place] [address], without compl ication E11.9 ; [place] [id number] Menopause Z78.0 ; Morbid obesity due to e xcess calories E66.01 ; Aortic valve stenosis, unspecified etio logy I35.0 ; Essential hypert ension I10 ; Mild intermitten t asthma without complica tion J45.20 ; Acquired hypothy roidism E03.9 and Elevated hem oglobin A1c R73.09 Omid Jimenes MD [address] [facility] [address] Nov, Arthritis pain of hand M19.049 [address] [place], and Arthritis pain of shoulder [place] [id number] M19.019 Omid Jimenes MD [address] Sep, Type 2 di abetes mellitus [address] [place], without compl ication E11.9 ; [place] [id number] Morbid obesity d ue to excess calories E66.01 ; Body mass index (BMI) 45.0 -49.9, adult Z68.42 ; Essenti al hypertension I10 and Hand art hritis M19.049 Omid Jimenes MD [address] Sep, [address] [place] [id number] Omid Jimenes MD [address] August, Menopause Z78.0 [address] [place], [place] [id number] Omid Jimenes MD [address] Jun, [address] [place], [place] [id number] Omid Jimenes MD [address] Jun, Menopause Z78.0 ; Aortic valve [address] [place], stenosis, uns pecified etiology [place] [id number] I35.0 ; Type 2 d iabetes mellitus without complication E11.9 ; Mild int ermittent asthma without c omplication J45.20 ; Acquire d hypothyroidism E 03.9 ; Essential hypert ension I10 ; GERD (gastroesop hageal reflux disease) K21.9 ; Arthritis M19.90 and OAB ( overactive bladder) N32.81 Omid Jimenes MD [address] Jun, Type 2 di abetes mellitus [address] [place], without compl ication E11.9 ; [place] [id number] Pure hypercholes terolemia E78.00 and Acqui red hypothyroidism E 03.9 Omid Jimenes MD [address] Jun, [address] [place] [id number] Omid Jimenes MD [address] Jun, [address] [place] [id number] Omid Jimenes MD [address] Jun, Aortic va lve disease I35.9 [address] [place] [id number] Omid Jimenes MD [address] Jun, Aortic va lve disorder I35.9 [address] [place] [id number] Omid Jimenes MD [address] Mar, Yeast inf ection B37.9 and Type [address] [place], 2 diabetes me llitus without [place] [id number] complication E11 .9 Omid Jimenes MD [address] Mar, Acute ast hma J45.909 and [address] [place], Hemoptysis R0 4.2 [place] [id number] Omid Jimenes MD [address] Mar, Type 2 di abetes mellitus [address] [place], without compl ication E11.9 ; [place] [id number] Pure hypercholes terolemia E78.00 ; Acquire d hypothyroidism E 03.9 and Mild intermittent ast hma without complication J45 .20 Omid Jimenes MD [address] Jan, Encounter for immunization Z23 [address] [place], [place] [id number] Omid Jimenes MD [address] Nov, Encounter for general adult [address] [place], medical exami nation without [place] [id number] abnormal finding s Z00.00 ; Type 2 diabetes melli tus without complication E11 .9 ; Pure hypercholesterol emia E78.0 ; Acquired hypothy roidism E03.9 and Depression s creening Z13.89 Omid Jimenes MD [address] Nov, Encounter for general adult [address] [place], medical exami nation without [place] [id number] abnormal finding s Z00.00 ; Acquired hypothy roidism E03.9 ; Type 2 diabetes mellitus without complica tion E11.9 ; Pure hypercholes terolemia E78.0 ; History of hem aturia Z87.448 ; Essential hype rtension I10 and Aortic valve stenosis, unspecified etio logy I35.0 Omid Jimenes MD [address] Sep, Type 2 di abetes mellitus [address] [place], without compl ication E11.9 ; [place] [id number] Acquired hypothy roidism E03.9 ; Mild intermitten t asthma without complica tion J45.20 ; Reflux esophagit is K21.00 ; Essential hypert ension I10 and Overactive bladd er N32.81 Omid Jimenes MD [address] Jun, Type 2 di abetes mellitus [address] [place], without compl ication E11.9 ; [place] [id number] Aortic valve dis order I35.9 and Encounter for im munization Z23 Omid Jimenes MD [address] Mar, Annual ph ysical exam V70.0 [address] [place], [place] [id number] Omid Jimenes MD [address] Mar, Type 2 di abetes mellitus [address] [place], without compl ication E11.9 ; [place] [id number] Mild intermitten t asthma without complica tion J45.20 and Perforated nasal septum J34.89 Omid Jimenes MD [address] Feb, Type 2 di abetes mellitus [address] [place], without compl ication E11.9 [place] [id number] Omid Jimenes MD [address] Feb, Type 2 di abetes mellitus [address] [place], without compl ication E11.9 ; ANGELA [id number] Acquired hypothy roidism E03.9 and Mild intermi ttent asthma with acute exace rbation J45.21 Omid Jimenes MD [address] Feb, Acquired hypothyroidism E03.9 [address] [place] [id number] Omid Jimenes MD [address] Jan, Encounter for immunization Z23 [address] [place] [id number] Omid Jimenes MD [address] Dec, Asthma at tack 493.92 [address] [place] [id number] Omid Jimenes MD [address] Dec, [address] [place] [id number] Omid Jimenes MD [address] Nov, Annual ph ysical exam V70.0 ; [address] [place], Hypothyroidis m 244.9 ; ANGELA [id number] Diabetes- non in sulin 250.02 and Tetanus-diph theria [Td] [DT] V06.5 Omid Jimenes MD [address] Nov, Labs as p art of routine exam [address] [place], V72.62 ; Sara [place] physical exam [place] [id number] V70.0 ; Diabetes - non insulin 250.02 ; Aortic valve disorders 424.1 ; Hematuri a 599.70 ; Obesity (BMI 30- 39.9) 278.00 ; Anemia 285.9 ; Hypercholesterol emia 272.0 ; Hypothyroidism 2 44.9 and Vitamin D defici ency 268.9 Omid Jimenes MD [address] Oct, [address] [place] [id number] Omid Jmienes MD [address] Oct, Suite [place] [id number] Omid Jimenes MD [address] Jul, Diabetes- non insulin 250.02 ; [address] [place], Anemia 285.9 and Obesity, Class ANGELA [id number] III, BMI 40-49.9 (morbid obesity) 278.01 Omid Jimenes MD [address] Jul, Anemia 28 5.9 Suite [place] [id number] Omid Jimenes MD [address] Jun, Suite [place] [id number] Omid Jimenes MD [address] May, Suite [place] [id number] mOid Jimenes MD [address] May, [address] [place] [id number] Omid Jimenes MD [address] Apr, Suite [place] [id number] Omid Jimenes MD [address] Apr, Hypothyro idism 244.9 Suite [place] [id number] Omid Jimenes MD [address] Jan, Anemia 28 5.9 and Diabetes- non [address] [place], insulin 250.0 2 [place] [id number] Omid Jimenes MD [address] Jan, Anemia 28 5.9 Suite [place] [id number] Omid Jimenes MD [address] Dec, Suite [place] [id number] Omid Jimenes MD [address] Nov, Suite [place] [id number] Omid Jimenes MD [address] Nov, Suite [place] [id number] Omid Jimenes MD [address] Nov, Annual ph ysical exam V70.0 ; [address] [place], Anemia 285.9 ; ANGELA [id number] Hypercholesterol emia 272.0 ; Hypothyroidism 2 44.9 and Unspecified evelyne min D deficiency 268.9 Omid Jimenes MD [address] Nov, Labs as p art of routine exam [address] [place], V72.62 ; Diab etes- non insulin ANGELA [id number] 250.02 ; Obesity (BMI 30-39.9) 278.00 ; Anemia 285.9 ; Hypercholesterol emia 272.0 and Hypothyroidism 2 44.9 Omid Jimenes MD [address] Oct, Comprehen sive diabetic foot [address] [place], examination, type 2 DM, ANGELA [id number] encounter for 25 0.00 Omid Jimenes MD [address] August, Celluliti s 682.9 [address] [place] [id number] Omid Jimenes MD [address] August, Celluliti s 682.9 [address] [place], ANGELA [id number] Omid Jimenes MD [address] August, C. diffic ile diarrhea 008.45 ; [address] [place], Allergy 995.3 and Cellulitis ANGELA [id number] 682.9 Omid Jimenes MD [address] Jul, Diabetes- non insulin 250.02 [address] [place], and Tenosynov itis of thumb [place] [id number] 727.05 Oimd Jimenes MD [address] Jun, [address] [place] [id number] Omid Jimenes MD [address] Jun, [address] [place] rodriguez [id number] Omid Jimenes MD [address] Mar, [address] [place] [id number] Omid Jimenes MD [address] Mar, Gastroent eritis 558.9 ; [address] [place], Hypercholeste rolemia 272.0 and ANGELA [id number] Diabetes- non in sulin 250.02 Omid Jimenes MD [address] Jan, Hyperchol esterolemia 272.0 ; [address] [place], Diabetes- non insulin 250.02 ANG[place]A [id number] and Acute asthma tic bronchitis 493.92 Omid Jimenes MD [address] Dec, Hyperchol esterolemia 272.[address] [place], Need for prop hylactic ANGELA [id number] vaccination and inoculation, Influenza V04.81 Omid Jimenes MD [address] Oct, [address] [place] [id number] Omid Jimenes MD [address] Oct, Diabetes- non insulin 250.02 ; [address] [place], Hypercholeste rolemia 272.0 and ANGELA [id number] Hypothyroidism 2 44.9 Omid Jimenes MD [address] Oct, Hypothyro id 244.[address] [place], Hypercholeste rolemia 272.0 AN[place]A [id number] Omid Jimenes MD [address] August, [address] [place] [id number] Omid Jimenes MD [address] August, [address] [place] [id number] mOid Jimenes MD [address] Jul, Hypothyro id 244.9 and Urinary [address] [place], tract bacteri al infections [place] [id number] 599.0 Omid Jimenes MD [address] Jul, Diabetes- non insulin 250.02 ; [address] [place], Hypercholeste rolemia 272.0 ; ANGELA [id number] Hypothyroid 244. 9 and Urinary tract bacterial infections 599.0 Omid Jimenes MD [address] Jul, [address] [place] [id number] Omid Jimenes MD [address] Jul, UTI, unsp ecified 599.0 [address] [place] [id number] Omid Jimenes MD [address] Jul, [address] [place] [id number] Omid Jimenes MD [address] Jul, Hyperchol esterolemia 272.0 ; [address] [place], Diabetes- non insulin 250.02 ; AN[place]A [id number] Hematuria 599.70 ; Anemia 285.9 and Obesity, Cla ss III, BMI 40-49.9 (morbid obesity) 278.01 Omid Jimenes MD [address] Jun, [address] [place] rodriguez [id number] Omid Jimenes MD [address] Jun, [address] [place] rodriguez [id number] Omid Jimenes MD [address] Apr, Diarrhea 787.91 [address] [place] rodriguez [id number] Omid Jimenes MD [address] Apr, [address] [place], ANGELA [id number] Omid Jimenes MD [address] Mar, Diabetes- non insulin 250.02 ; [address] [place], Asthma 493.90 ; Plantar [place]A [id number] fasciitis 728.71 and Need for prophylactic vac cination against streptoc occus pneumoniae (pneu mococcus) V03.82 Omid Jimenes MD [address] Feb, Ruptured lumbar disc 722.10 [address] [place] [id number] Omid Jimenes MD [address] Jan, Lumbar di sc disease with [address] [place], radiculopathy 722.10 and [place] [id number] Diabetes- non in sulin 250.02 Omid Jimenes MD [address] Jan, Hyperchol esterolemia 272.0 ; [address] [place], Diabetes- non insulin 250.02 ; [place] [id number] Sinusitis 473.9 and Recurrent Clostridium diff icile diarrhea 008.45 Omid Jimenes MD [address] Jan, Need for prophylactic [address] [place], vaccination a nd inoculation, [place] [id number] Influenza V04.81 Omid Jimenes MD [address] Oct, [address] [place] [id number] Omid Jimenes MD [address] Oct, Nasal sep nancy perforation 478.19 [address] [place], ; Diabetes- n on insulin 250.02 [place] [id number] ; Asthma 493.90 ; Hypercholesterol emia 272.0 and Irritable bladde r 596.89 Omid Jimenes MD [address] Oct, Annual ph ysical exam V70.0 ; [address] [place], Anemia 285.9 ; Diabetes- non ANGELA [id number] insulin 250.02 a nd Obesity, Class III, BMI 4 0-49.9 (morbid obesity) 278.01 Omid Jimenes MD [address] August, [address] [place] [id number] Omid Jimenes MD [address] August, [address] [place] [id number] Omid Jimenes MD [address] Jul, Upper res piratory infection [address] [place], 465.9 ; Asthm a 493.90 and Nasal [place] [id number] septum perforati on 478.19 Omid Jimenes MD [address] Jul, [address] [place] [id number] Omid Jimenes MD [address] Jun, Diabetes- non insulin 250.02 ; [address] [place], Asthma 493.90 and Obesity, [place] [id number] Class III, BMI 4 0-49.9 (morbid obesity) 278.01 Omid Jimenes MD [address] Mar, Asthma 49 3.90 and Diabetes [address] [place], mellitus with out mention of [place] [id number] complication, ty pe II or unspecified type , not stated as uncontrolled 250 .00 Omid Jimenes MD [address] Feb, [address] [place], [place] [id number] Omid Jimenes MD [address] Dec, Diabetes- non insulin 250.02 ; [address] [place], UTI, unspecif ied 599.0 ; Asthma [place] [id number] 493.90 and Need for prophylactic vac cination and inoculation, Inf luenza V04.81 IMMUNIZATIONS Vaccine Route Administration Date Status Shingrix IM Intramuscular Mar 04, 2018 Administered Fluarix Quadrivalent IM Intramuscular Jan 14, 2019 Administer ed Influenza High Dose IM Intramuscular Jan 02, 2020 Administere d Shingles Unknown Mar 04, 2018 Administered SARS-COV-2 Pfizer Unknown Feb 10, 2021 Administered Fluarix Quadrivalent IM Intramuscular Jan 09, 2017 Administer ed SARS-COV-2 Pfizer Unknown Dec 14, 2020 Administered Shingrix IM Intramuscular November 27, 2017 Administered PPSV23 (Pnemovax) IM Intramuscular Feb 10, 2021 Administered Fluarix Quadrivalent IM Intramuscular Jan 08, 2018 Administer ed SARS-COV-2 Moderna Unknown July 14, 2021 Administered Flu Vaccine IM Intramuscular Jan 24, 2011 Administered Covid Vaccine Unknown May 25, 2020 Administered Covid Vaccine Unknown June 28, 2020 Administered Influenza High Dose IM Intramuscular Jan 20, 2021 Administere d Fluarix Quadrivalent IM Intramuscular Feb 25, 2016 Administer ed PPSV23 (Pnemovax) IM Intramuscular June 29, 2015 Administered Fluarix Quadrivalent IM Intramuscular Feb 19, 2015 Administer ed TDaP IM Intramuscular Dec 08, 2014 Administered Flu Vaccine IM Intramuscular Jan 27, 2013 Administered PPSV23 (Pnemovax) Unknown November 04, 2008 Administered Prevnar 13 IM Intramuscular Apr 02, 2012 Administered Flu Vaccine IM Intramuscular Feb 02, 2012 Administered SOCIAL HISTORY Never Assessed REASON FOR REFERRAL FUNCTIONAL STATUS PLAN OF CARE Activity Details Follow Up 6 Months Reason:dm Future Appointment Provider Name:Omid jor, 2022-08-21 07:15:00 AM, [address], [address], [place], [id number], Future Appointment Provider Name:Omid Akhtar ier, 2022-08-25 02:00:00 PM, [address], [address], [place], [id number], Future Appointment Provider Name:Omid Akhtar ier, 2023-02-19 08:00:00 AM, [address], [address], [place], [id number], Future Appointment Provider Name:Omid Akhtar ier, 2023-02-26 02:30:00 PM, [address], [address], [place], [id number], Future Test TSH reflex Free T4 [id number] Future Test CBC (INCLUDES DIFF/PLT) 2014 420 Pending Test Urinalysis and Microscopic Pending Test Comprehensive [place]. Panel Fa st Pending Test Vitamin D 25-OH Total Pending Test Microalbumin, Random Pending Test CBC (INCLUDES DIFF/PLT) Pending Test IRON + IBC (FE) Pending Test VITAMIN B12 AND FOLATE Pending Test TSH (THYROID STIMULATING HOR ANOOP) Pending Test EMG Pending Test Nerve Conduction Study Future/Pending Procedure ECHO EXAM OF HEART VITAL SIGNS Height 64 in 2022-02-23 Height 64 in 2022-02-10 Height 64 in 2021-11-21 Height 64 in 2021-08-22 Height 64 in 2021-05-30 Height 64 in 2021-04-19 Height 64 in 2021-02-10 Height 64 in 2020-12-09 Height 64 in 2020-10-07 Height 64 in 2020-08-19 Height 64 in 2020-05-25 Height 64 in 2020-02-06 Height 64 in 2019-10-30 Height 64 in 2019-05-06 Height 64 in 2019-01-30 Height 64 in 2019-01-14 Height 64 in 2018-10-21 Height 64 in 2018-09-03 Height 64 in 2018-08-02 Height 64 in 2018-07-16 Height 64 in 2018-06-04 Height 64 in 2018-05-21 Height 64 in 2018-05-13 Height 64 in 2018-05-06 Height 64 in 2018-04-09 Height 64 in 2018-03-04 Height 64 in 2018-02-07 Height 64 in 2018-01-22 Height 64 in 2018-01-08 Height 64 in 2017-12-25 Height 64 in 2017-12-18 Height 64 in 2017-10-18 Height 64 in 2017-07-19 Height 64 in 2017-04-17 Height 64 in 2017-01-09 Height 64 in 2016-10-27 Height 64 in 2016-07-27 Height 64 in 2016-04-28 Height 64 in 2016-04-20 Height 64 in 2016-04-04 Height 64 in 2015-12-21 Height 64 in 2015-10-04 Height 64 in 2015-06-29 Height 64 in 2015-03-30 Height 64 in 2015-03-11 Height 64 in 2015-01-12 Height 64 in 2014-12-08 Height 64 in 2014-08-25 Height 64 in 2014-02-17 Height 64 in 2013-12-08 Height 64 in 2013-10-28 Height N/A in 2013-09-12 Height N/A in 2013-09-08 Height N/A in 2013-09-05 Height N/A in 2013-08-05 Height N/A in 2013-04-08 Height 64 in 2013-02-04 Height N/A in 2012-11-04 Height N/A in 2012-08-15 Height 64 in 2012-05-09 Height N/A in 2012-04-02 Height 64 in 2012-03-05 Height N/A in 2012-02-26 Height N/A in 2012-02-08 Height N/A in 2011-11-09 Height N/A in 2011-08-17 Height N/A in 2011-07-11 Height N/A in 2011-04-11 Height 64 in 2011-01-24 Weight 272 lbs 2022-02-23 Weight 264 lbs 2022-02-10 Weight 267 lbs 2021-11-21 Weight 267 lbs 2021-08-22 Weight 263 lbs 2021-05-30 Weight 265 lbs 2021-04-19 Weight 265 lbs 2021-02-10 Weight 260 lbs 2020-12-09 Weight 263 lbs 2020-10-07 Weight 267 lbs 2020-08-19 Weight 269 lbs 2020-05-25 Weight 251 lbs 2020-02-06 Weight 251 lbs 2019-05-06 Weight 239 lbs 2019-01-30 Weight 236 lbs 2019-01-14 Weight 265 lbs 2018-10-21 Weight 270 lbs 2018-09-03 Weight unable lbs 2018-08-02 Weight 299 lbs 2018-07-16 Weight 282 lbs 2018-06-04 Weight 280 lbs 2018-05-21 Weight 277 lbs 2018-05-13 Weight 285 lbs 2018-05-06 Weight 289 lbs 2018-04-09 Weight 282 lbs 2018-03-04 Weight 278 lbs 2018-02-07 Weight 275 lbs 2018-01-22 Weight 280 lbs 2018-01-08 Weight 273 lbs 2017-12-25 Weight 284 lbs 2017-12-18 Weight 273 lbs 2017-10-18 Weight 260 lbs 2017-07-19 Weight 268 lbs 2017-04-17 Weight 271 lbs 2017-01-09 Weight 264 lbs 2016-10-27 Weight 261 lbs 2016-07-27 Weight refused lbs 2016-04-28 Weight 264 lbs 2016-04-20 Weight 266 lbs 2016-04-04 Weight 269.5 lbs 2015-12-21 Weight 267 lbs 2015-10-04 Weight 269 lbs 2015-06-29 Weight 271 lbs 2015-03-30 Weight 269 lbs 2015-03-11 Weight 269 lbs 2015-01-12 Weight 269 lbs 2014-12-08 Weight 262 lbs 2014-08-25 Weight 252 lbs 2014-02-17 Weight 253 lbs 2013-12-08 Weight 252 lbs 2013-10-28 Weight 251 lbs 2013-09-12 Weight 251.5 lbs 2013-09-08 Weight 249 lbs 2013-09-05 Weight 254 lbs 2013-08-05 Weight 250 lbs 2013-04-08 Weight 258 lbs 2013-02-04 Weight 250 lbs 2012-11-04 Weight 248 lbs 2012-08-15 Weight 240 lbs 2012-05-09 Weight 252 lbs 2012-04-02 Weight 250 lbs 2012-03-05 Weight 253.5 lbs 2012-02-26 Weight 248 lbs 2012-02-08 Weight 244 lbs 2011-11-09 Weight 244.25 lbs 2011-08-17 Weight 248 lbs 2011-07-11 Weight 253 lbs 2011-04-11 Weight 247 lbs 2011-01-24 BMI 46.68 kg/m2 2022-02-23 BMI 45.31 kg/m2 2022-02-10 BMI 45.83 kg/m2 2021-11-21 BMI 45.83 kg/m2 2021-08-22 BMI 45.14 kg/m2 2021-05-30 BMI 45.48 kg/m2 2021-04-19 BMI 45.48 kg/m2 2021-02-10 BMI 44.62 kg/m2 2020-12-09 BMI 45.14 kg/m2 2020-10-07 BMI 45.83 kg/m2 2020-08-19 BMI 46.17 kg/m2 2020-05-25 BMI 43.08 kg/m2 2020-02-06 BMI 43.08 kg/m2 2019-05-06 BMI 41.02 kg/m2 2019-01-30 BMI 40.50 kg/m2 2019-01-14 BMI 45.48 kg/m2 2018-10-21 BMI 46.34 kg/m2 2018-09-03 BMI 51.32 kg/m2 2018-07-16 BMI 48.40 kg/m2 2018-06-04 BMI 48.06 kg/m2 2018-05-21 BMI 47.54 kg/m2 2018-05-13 BMI 48.91 kg/m2 2018-05-06 BMI 49.60 kg/m2 2018-04-09 BMI 48.40 kg/m2 2018-03-04 BMI 47.71 kg/m2 2018-02-07 BMI 47.20 kg/m2 2018-01-22 BMI 48.06 kg/m2 2018-01-08 BMI 46.86 kg/m2 2017-12-25 BMI 48.74 kg/m2 2017-12-18 BMI 46.86 kg/m2 2017-10-18 BMI 44.62 kg/m2 2017-07-19 BMI 46.00 kg/m2 2017-04-17 BMI 46.51 kg/m2 2017-01-09 BMI 45.31 kg/m2 2016-10-27 BMI 44.80 kg/m2 2016-07-27 BMI 45.31 kg/m2 2016-04-20 BMI 45.65 kg/m2 2016-04-04 BMI 46.25 kg/m2 2015-12-21 BMI 45.83 kg/m2 2015-10-04 BMI 46.17 kg/m2 2015-06-29 BMI 46.51 kg/m2 2015-03-30 BMI 46.17 kg/m2 2015-03-11 BMI 46.17 kg/m2 2015-01-12 BMI 46.17 kg/m2 2014-12-08 BMI 44.97 kg/m2 2014-08-25 BMI 43.25 kg/m2 2014-02-17 BMI 43.42 kg/m2 2013-12-08 BMI 43.25 kg/m2 2013-10-28 BMI 43.08 kg/m2 2013-09-12 BMI 43.17 kg/m2 2013-09-08 BMI 42.74 kg/m2 2013-09-05 BMI 43.59 kg/m2 2013-08-05 BMI 42.91 kg/m2 2013-04-08 BMI 44.28 kg/m2 2013-02-04 BMI 42.91 kg/m2 2012-11-04 BMI 42.56 kg/m2 2012-08-15 BMI 41.19 kg/m2 2012-05-09 BMI 43.25 kg/m2 2012-04-02 BMI 42.91 kg/m2 2012-03-05 BMI 43.51 kg/m2 2012-02-26 BMI 42.56 kg/m2 2012-02-08 BMI 41.88 kg/m2 2011-11-09 BMI 41.92 kg/m2 2011-08-17 BMI 42.56 kg/m2 2011-07-11 BMI 43.42 kg/m2 2011-04-11 BMI 42.39 kg/m2 2011-01-24 Temperature 98.2 degrees Fahrenheit 2021-05-30 Temperature 98.1 degrees Fahrenheit 2021-04-19 Temperature 98.3 degrees Fahrenheit 2021-02-10 Temperature 98.1 degrees Fahrenheit 2020-10-07 Temperature 97.8 degrees Fahrenheit 2016-04-20 Temperature 97.1 degrees Fahrenheit 2015-06-29 Temperature 98.3 degrees Fahrenheit 2015-01-12 Temperature 97.7 degrees Fahrenheit 2013-02-04 Temperature 98.6 degrees Fahrenheit 2012-05-09 Temperature 99.1 degrees Fahrenheit 2011-11-09 Temperature 98.3 degrees Fahrenheit 2011-08-17 Blood pressure systolic 98 mm Hg 2022-02-23 Blood pressure diastolic 52 mm Hg 2022-02-23 MEDICATIONS Medication Instructions Dosage Frequency Start End Duration Statu s Date Date ZyrTEC Allergy Orally Once a 1 tablet 24h 30 day(s) Active 10 MG day Lipitor 20 MG Orally Once a 1 tablet 24h Act karan day HYDROcodone-Norberto (Schedule II 30 Not -Jaylen taminophen Drug) TAKE 1 ing 7.5-325 MG TABLET BY MOUTH EVERY 8 HOURS NEEDED FOR PAIN DULoxetine HCl TAKE ONE CAPSULE 90 Active 40 MG BY MOUTH EVERY DAY Bepreve 1.5 % INSTILL 1 TO 2 20 Act karan DROPS IN EACH EYE DAILY NEEDED Benadryl Orally Once a 1 tablet at 24h 30 day(s) Not -Jaylen Allergy 25 MG day bedtime as ing needed Januvia 100 MG TAKE 1 TABLET Act karan DAILY BY MOUTH ONCE A DAY Spiriva INHALE 2 PUFFS Active Respimat 1.25 DAILY MCG/ACT Levothyroxine Orally Once a 1 tablet in the 24h Active Sodium 75 MCG day morning on an empty stomach Lantus SoloStar Subcutaneous as 100 units Active 100 UNIT/ML 100 units units BID Ferrous Sulfate Orally Once a 1 tablet 24h 30 day(s) Active 325 (65 Fe) MG day Furosemide 80 Orally bid TAKE ONE TABLET 12h Active MG BY MOUTH TWICE A DAY Flovent HFA 220 USE 2 PUFFS Acti ve MCG/ACT TWICE DAILY Valsartan 80 MG TAKE ONE TABLET Active BY MOUTH EVERY DAY Nystop [id number] APPLY ONE 30 Active UNIT/GM APPLICATION EXTERNALLY TWO TIMES A DAY Allopurinol 100 TAKE TWO TABLETS 30 Active MG BY MOUTH EVERY DAY Ventolin HFA Inhalation 2 puffs as 4h Oct, 30 days Activ e 108 (90 Base) every 4 hrs needed 2020 MCG/ACT Aspir-Low 81 MG Orally Once a 1 tablet 24h 30 day(s) Active day Meclizine HCl TAKE ONE TABLET 28 No t-Jaylen 25 MG BY MOUTH TWICE A ing DAY NEEDED Potassium TAKE ONE TABLET 30 Active Chloride ER 10 BY MOUTH TWICE A MEQ DAY WITH FOOD Florastor 250 TAKE ONE CAPSULE 90 A ctive MG BY MOUTH TWICE A DAY Omeprazole 20 Orally Once a 1 capsule 30 24h Active MG day minutes before morning meal Dymista 137-50 USE 1 SPRAY EACH 90 Active MCG/ACT NOSTRIL TWICE A DAY [facility] USE DIRECTED 30 Active Pentips Plus TWO TIMES A DAY 31G X 6 MM SUBCUTANEOUSLY traZODone HCl Orally Once a 1 tablet at 24h 30 day(s ) Active 50 MG day bedtime as needed Gabapentin 400 Orally Once a 1 capsule 24h A ctive MG day PROCEDURES Procedure Date Ordered Result Body Site GLYCATED HEMOGLOBIN TEST Feb 08, 2012 GLYCATED HEMOGLOBIN TEST August 05, 2013 GLYCATED HEMOGLOBIN TEST May 06, 2018 ASSAY, GLUCOSE, BLOOD QUANT August 05, 2013 VENIPUNCT, ROUTINE* Feb 10, 2014 FLU VACC PRSV FREE INC ANTIG Jan 02, 2020 ASSAY, GLUCOSE, BLOOD QUANT May 06, 2018 ASSAY, GLUCOSE, BLOOD QUANT Feb 26, 2012 ASSAY, GLUCOSE, BLOOD QUANT Apr 13, 2017 -ELECTROCARDIOGRAM, COMPLETE Jan 22, 2018 HZV VACC RECOMBINANT IM NJX November 27, 2017 ASSAY, GLUCOSE, BLOOD QUANT Apr 04, 2016 GLYCATED HEMOGLOBIN TEST Apr 13, 2017 IMMUNIZATION ADMIN Jan 27, 2013 GLYCATED HEMOGLOBIN TEST Jan 14, 2019 GLYCATED HEMOGLOBIN TEST Mar 11, 2015 GLYCATED HEMOGLOBIN TEST May 30, 2021 ASSAY, GLUCOSE, BLOOD QUANT August 22, 2021 FLU VACC PRSV FREE INC ANTIG Jan 20, 2021 VENIPUNCT, ROUTINE* Dec 09, 2020 VENIPUNCT, ROUTINE* October 28, 2012 ASSAY, GLUCOSE, BLOOD QUANT Feb 08, 2012 VENIPUNCT, ROUTINE* August 13, 2018 PHONE E/M BY SOHLA 21-30 MIN May 25, 2020 VENIPUNCT, ROUTINE* Dec 08, 2013 VENIPUNCT, ROUTINE* Jun 04, 2018 Fluarix Quadrivalent Feb 25, 2016 ASSAY, GLUCOSE, BLOOD QUANT Jan 24, 2011 PRES/ABSN URINE INCON ASSESS July 27, 2016 HZV VACC RECOMBINANT IM NJX Mar 04, 2018 Fluarix Quadrivalent Jan 09, 2017 ADMN FLU VAC NO FEE SCHED SAME DAY Jan 09, 2017 IMMUNIZATION ADMIN November 27, 2017 GLYCATED HEMOGLOBIN TEST Apr 11, 2011 GLYCATED HEMOGLOBIN TEST October 27, 2016 ASSAY, GLUCOSE, BLOOD QUANT November 09, 2011 -ELECTROCARDIOGRAM, COMPLETE Jan 09, 2017 ASSAY, GLUCOSE, BLOOD QUANT Mar 11, 2015 ASSAY, GLUCOSE, BLOOD QUANT Jan 14, 2019 Flu Vaccine Jan 24, 2011 -ELECTROCARDIOGRAM, COMPLETE Dec 08, 2014 ASSAY, GLUCOSE, BLOOD QUANT May 30, 2021 VENIPUNCT, ROUTINE* Dec 07, 2014 VENIPUNCT, ROUTINE* Feb 01, 2021 GLYCATED HEMOGLOBIN TEST November 04, 2012 GLYCATED HEMOGLOBIN TEST August 02, 2018 GLYCATED HEMOGLOBIN TEST July 19, 2017 IMMUNIZATION ADMIN Jan 24, 2011 IMMUNIZATION ADMIN Feb 02, 2012 ADMN FLU VAC NO FEE SCHED SAME DAY Jan 08, 2018 -ELECTROCARDIOGRAM, COMPLETE Dec 21, 2015 ASSAY, GLUCOSE, BLOOD QUANT Feb 17, 2014 ASSAY, GLUCOSE, BLOOD QUANT Mar 04, 2018 VENIPUNCT, ROUTINE* Feb 07, 2022 ASSAY, GLUCOSE, BLOOD QUANT May 21, 2018 VENIPUNCT, ROUTINE* July 24, 2016 VENIPUNCT, ROUTINE* October 14, 2018 IMMUNIZATION ADMIN Feb 19, 2015 GLYCATED HEMOGLOBIN TEST August 22, 2021 ASSAY, GLUCOSE, BLOOD QUANT Dec 09, 2020 HEMOGLOBIN A1C LEVEL > 9.0% July 27, 2016 PNEUMOCOCCAL VACCINE Feb 10, 2021 GLYCATED HEMOGLOBIN TEST Apr 17, 2017 GLYCATED HEMOGLOBIN TEST June 29, 2015 GLYCATED HEMOGLOBIN TEST Feb 04, 2013 GLYCATED HEMOGLOBIN TEST October 04, 2015 GLYCATED HEMOGLOBIN TEST October 18, 2017 ASSAY, GLUCOSE, BLOOD QUANT Feb 04, 2013 VENIPUNCT, ROUTINE* November 05, 2018 ASSAY, GLUCOSE, BLOOD QUANT October 18, 2017 ASSAY, GLUCOSE, BLOOD QUANT November 21, 2021 ASSAY, GLUCOSE, BLOOD QUANT August 25, 2014 VENIPUNCT, ROUTINE* Jan 02, 2017 ASSAY, GLUCOSE, BLOOD QUANT October 04, 2015 GLYCATED HEMOGLOBIN TEST Apr 28, 2016 VENIPUNCT, ROUTINE* Jan 27, 2019 VENIPUNCT, ROUTINE* July 29, 2012 Flu Vaccine Jan 27, 2013 ASSAY, GLUCOSE, BLOOD QUANT July 11, 2011 IMMUNIZATION ADMIN June 29, 2015 ASSAY, GLUCOSE, BLOOD QUANT Dec 17, 2018 ASSAY, GLUCOSE, BLOOD QUANT Feb 10, 2021 ASSAY, GLUCOSE, BLOOD QUANT Feb 23, 2022 GLYCATED HEMOGLOBIN TEST Jan 24, 2011 VENIPUNCT, ROUTINE* Feb 17, 2019 ADMN PNEUMCOC VAC NO FEE SCHED DAY Apr 02, 2012 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, 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 15 MIN July 11, 2011 PNEUMOC IMM ORDER/ADMIN July 27, 2016 ADMN FLU VAC NO FEE SCHED SAME DAY Jan 20, 2021 ADMN FLU VAC NO FEE SCHED SAME DAY Mar 04, 2018 IMMUNIZATION ADMIN Feb 25, 2016 GLYCATED HEMOGLOBIN TEST November 21, 2021 GLYCATED HEMOGLOBIN TEST August 25, 2014 GLYCATED HEMOGLOBIN TEST July 11, 2011 ASSAY, GLUCOSE, BLOOD QUANT Apr 19, 2021 -ELECTROCARDIOGRAM, COMPLETE Dec 08, 2013 ASSAY, GLUCOSE, BLOOD QUANT October 07, 2020 VENIPUNCT, ROUTINE* Feb 05, 2018 Fluarix Quadrivalent Jan 08, 2018 Flu Vaccine Feb 02, 2012 ASSAY, GLUCOSE, BLOOD QUANT Jun 04, 2018 ASSAY, GLUCOSE, BLOOD QUANT June 29, 2015 ASSAY, GLUCOSE, BLOOD QUANT Apr 17, 2017 Fluarix Quadrivalent Feb 19, 2015 GLYCATED HEMOGLOBIN TEST Dec 17, 2018 ADMN FLU VAC NO FEE SCHED SAME DAY Jan 02, 2020 TDAP VACCINE >7 IM Dec 08, 2014 IMMUNIZATION ADMIN Dec 08, 2014 ADMN FLU VAC NO FEE SCHED SAME DAY Jan 14, 2019 SCREEN MAMMO DOC REV July 27, 2016 VENIPUNCT, ROUTINE* Mar 04, 2018 COLORECTAL CA SCREEN DOC REV July 27, 2016 BMI>=30OR<22 [place] NO FOLLOWUP July 27, 2016 DOC MEDS VERIFIED W/PT OR RE July 27, 2016 ASSAY, GLUCOSE, BLOOD QUANT July 19, 2017 ASSAY, GLUCOSE, BLOOD QUANT August 02, 2018 VENIPUNCT, ROUTINE* July 30, 2018 VENIPUNCT, ROUTINE* November 06, 2011 ASSAY, GLUCOSE, BLOOD QUANT Apr 02, 2012 VENIPUNCT, ROUTINE* Dec 01, 2013 VENIPUNCT, ROUTINE* Dec 13, 2015 Fluarix Quadrivalent Jan 14, 2019 ASSAY, GLUCOSE, BLOOD QUANT Mar 30, 2015 PNEUMOCOCCAL VACCINE June 29, 2015 IMMUNIZATION ADMIN Feb 10, 2021 NEG SCR D PT NOT ELIG F/U/PLN DOC July 27, 2016 VENIPUNCT, ROUTINE* October 07, 2020 TOBACCO NON-USER July 27, 2016 VENIPUNCT, ROUTINE* August 13, 2020 ASSAY, GLUCOSE, BLOOD QUANT August 19, 2020 VENIPUNCT, ROUTINE* Mar 01, 2015 VENIPUNCT, ROUTINE* Jan 15, 2018 VENIPUNCT, ROUTINE* August 27, 2012 ASSAY, GLUCOSE, BLOOD QUANT October 27, 2016 ASSAY, GLUCOSE, BLOOD QUANT Apr 08, 2013 ASSAY, GLUCOSE, BLOOD QUANT Apr 11, 2011 VENIPUNCT, ROUTINE* Jan 27, 2013 PHONE E/M BY PHYS 11-20 MIN October 30, 2019 ASSAY, GLUCOSE, BLOOD QUANT May 13, 2018 ASSAY, GLUCOSE, BLOOD QUANT November 04, 2012 PNEUMOCOCCAL VACC 13 MIRELLA IM Apr 02, 2012 VENIPUNCT, ROUTINE* Apr 09, 2017 GLYCATED HEMOGLOBIN TEST Dec 09, 2020 VENIPUNCT, ROUTINE* August 18, 2014 RESULTS Name Result Date Reference Range TSH reflex Free T4 2022-04-12 TSH reflex Free T4 2.49 0.32-4.0 Glucose, Whole Blood 2022-03-28 Glucose, Whole Blood 238 60-115 Glucose, Whole Blood 2022-03-28 Glucose, Whole Blood 266 60-115 Pathology 2022-03-28 Glucose, finger stick 2022-02-23 Value 299 Urinalysis and Microscopic 2022-02-23 Color Urine Yellow Appearance Urine Clear PH 6.5 5.0-9.0 Glucose Urine UA Negative Negative Urine Blood Negative Negative Specific [place] - Urine 1.010 1.005-1 .025 Urine Protein Negative Neg-Trace Urine Ketones Negative Negative Nitrite Urine Negative Negative Leukocyte Esterase Urine Trace Negativ e RBC Urine 0-2 0-2 WBC Urine 0-5 0-5 Squamous Epithelial Cell Urine 3-5 0 -2 Bacteria Urine None Seen None Seen Hyaline Casts Urine 0-2 0-2 Microalbumin, Random 2022-02-23 Creatinine Urine 64.48 Microalbumin Urine 5.0 Microalbum/Creatinine Ratio Ur 7.7 Complete Blood Count Auto Diff 2022-02-07 White Blood Count 12.4 4.8-10.8 Red Blood Count 3.81 4.20-5.50 Hemoglobin 12.3 12.0-16.0 Hematocrit 38.9 37.0-47.0 Mean Corpuscular Volume 102.1 80.0-98. 0 Mean Corpuscular Hemoglobin 32.3 27.0 -33.0 Mean Corpuscular HGB Conc 31.6 31.0-3 5.0 Red Cell Distribution Width 14.9 11.0 -16.0 Platelet Count 319 160-400 Mean Platelet Volume 10.4 9.4-12.3 Neutrophils Percent Auto 57.3 45-73 Imm Gran Pct Auto 0.4 0.0-0.4 Lymphocytes Percent Auto 30.9 20-40 Monocytes Percent Auto 7.7 2-11 Eosinophils Percent Auto 3.2 0-4 Basophils Percent Auto 0.5 0-2 NRBC Pct Auto 0.0 0.0-0.2 Neutrophils Absolute Auto 7.1 2.0-8. 3 Imm Gran Abs Auto 0.05 0.00-0.03 Lymphocytes Absolute Auto 3.8 1.2-4. 9 Monocytes Absolute Auto 1.0 0.1-1.2 Eosinophils Absolute Auto 0.4 0.0-0. 4 Basophils Absolute Auto 0.1 0.0-0.2 NRBC Abs Auto 0.000 0.0-0.012 IRON PROFILE 2022-02-07 Iron 68 30-160 Total Iron Binding Capacity 328 228- 428 Percent Iron Saturation 21 15-50 Unsaturated Iron Binding 260 Lipid Panel 2022-02-07 Triglycerides 177 Cholesterol 177 LDL Cholesterol Calculated 95 HDL Cholesterol 47 Hemoglobin A1c 2022-02-07 Hemoglobin A1c % 8.9 Estimated Average Glucose 209 Hemoglobin A1c 2021-11-21 Value Hemoglobin A1c 7.8 Glucose, finger stick 2021-11-21 Value 265 Hemoglobin A1c 2021-08-22 Value Hemoglobin A1c 8.2 Glucose, finger stick 2021-08-22 Value 327 Hemoglobin A1c 2021-05-30 Value Hemoglobin A1c 7.8 Glucose, finger stick 2021-05-30 Value 266 Glucose, finger stick 2021-04-19 Value 237 BONE DENSITY DEXA 2020-08-18 Glucose, finger stick 2021-02-10 Value 279 Complete Blood Count Auto Diff 2021-02-01 White Blood Count 9.8 4.8-10.8 Red Blood Count 3.98 4.20-5.50 Hemoglobin 12.0 12.0-16.0 Hematocrit 38.6 37-47 Mean Corpuscular Volume 97.0 80-98 Mean Corpuscular Hemoglobin 30.2 27.0 -33.0 Mean Corpuscular HGB Conc 31.1 31.0-3 5.0 Red Cell Distribution Width 16.8 11.0 -16.0 Platelet Count 327 160-400 Mean Platelet Volume 10.4 9.4-12.3 Neutrophils Percent Auto 72.5 45-73 Imm Gran Pct Auto 0.4 0.0-0.4 Lymphocytes Percent Auto 17.8 20-40 Monocytes Percent Auto 6.6 2-11 Eosinophils Percent Auto 2.2 0-4 Basophils Percent Auto 0.5 0-2 NRBC Pct Auto 0.0 0.0-0.2 Neutrophils Absolute Auto 7.1 2.0-8. 3 Imm Gran Abs Auto 0.04 0.00-0.03 Lymphocytes Absolute Auto 1.8 1.2-4. 9 Monocytes Absolute Auto 0.7 0.1-1.2 Eosinophils Absolute Auto 0.2 0.0-0. 4 Basophils Absolute Auto 0.1 0.0-0.2 NRBC Abs Auto 0.000 0.0-0.012 Comprehensive [place]. Panel Fast 2021-02-01 Sodium 141 135-145 Potassium 3.7 3.3-5.1 Chloride 97 96-108 Carbon Dioxide 33 22-29 Anion Gap 15 12-20 Blood Urea Nitrogen 23 9-16 Creatinine 1.13 0.5-1.4 Estimated Glomerular Filt Rate 47 Glucose Fasting 118 60-99 Calcium 9.5 8.4-10.2 Bilirubin Total 0.4 0.0-1.0 Aspartate Amino Transferase 31 5-31 Alanine Aminotransferase 27 0-31 Total Protein 7.4 6.5-8.0 Albumin Level 3.8 3.5-5.0 Alkaline Phosphatase 94 39-117 Lipid Panel 2021-02-01 Triglycerides 115 Cholesterol 154 LDL Cholesterol Calculated 88 HDL Cholesterol 43 TSH reflex Free T4 2021-02-01 TSH reflex Free T4 4.28 0.32-4.0 Microalbumin, Random 2021-02-01 Creatinine Urine 58.96 Microalbumin Urine 16.0 Microalbum Creatinine Ratio Ur 27.1 Hemoglobin A1c 2021-02-01 Hemoglobin A1c % 8.3 Estimated Average Glucose 192 Free T4 (Free Thyroxine) 2021-02-01 Free T4 (Free Thyroxine) 1.10 0.71-1. 85 IRON PROFILE 2020-12-09 Iron 49 30-160 Total Iron Binding Capacity 327 228- 428 Percent Iron Saturation 15 15-50 Unsaturated Iron Binding 278 Hemoglobin A1c 2020-12-09 Value Hemoglobin A1c 7.3 Glucose, finger stick 2020-12-09 Value 246 Complete Blood Count Auto Diff 2020-10-07 White Blood Count 11.4 4.8-10.8 Red Blood Count 3.17 4.20-5.50 Hemoglobin 8.2 12.0-16.0 Hematocrit 28.2 37-47 Mean Corpuscular Volume 89.0 80-98 Mean Corpuscular Hemoglobin 25.9 27.0 -33.0 Mean Corpuscular HGB Conc 29.1 31.0-3 5.0 Red Cell Distribution Width 18.2 11.0 -16.0 Platelet Count 405 160-400 Mean Platelet Volume 9.9 9.4-12.3 Neutrophils Percent Auto 77.0 45-73 Imm Gran Pct Auto 0.6 0.0-0.4 Lymphocytes Percent Auto 12.6 20-40 Monocytes Percent Auto 6.8 2-11 Eosinophils Percent Auto 2.6 0-4 Basophils Percent Auto 0.4 0-2 NRBC Pct Auto 0.0 0.0-0.2 Neutrophils Absolute Auto 8.8 2.0-8. 3 Imm Gran Abs Auto 0.07 0.00-0.03 Lymphocytes Absolute Auto 1.4 1.2-4. 9 Monocytes Absolute Auto 0.8 0.1-1.2 Eosinophils Absolute Auto 0.3 0.0-0. 4 Basophils Absolute Auto 0.0 0.0-0.2 NRBC Abs Auto 0.000 0.0-0.012 IRON PROFILE 2020-10-07 Iron 36 30-160 Total Iron Binding Capacity 367 228- 428 Percent Iron Saturation 10 15-50 Unsaturated Iron Binding 331 Vitamin B12 and Folate 2020-10-07 Vitamin B12 945 200-900 Folate 19.6 > or = 4.0 Glucose, finger stick 2020-10-07 Value 283 Glucose, finger stick 2020-08-19 Value 289 MAMMOGRAM DIGITAL BILATERAL 2020-08-18 SCREEN Glucose Fasting 2020-08-13 Glucose Fasting 179 60-99 Hemoglobin A1c 2020-08-13 Hemoglobin A1c % 8.2 Estimated Average Glucose 189 Basic Metabolic Panel 2020-07-12 Sodium 139 135-145 Potassium 3.9 3.3-5.1 Chloride 96 96-108 Carbon Dioxide 36 22-29 Anion Gap 11 12-20 Blood Urea Nitrogen 19 9-16 Creatinine 1.05 0.5-1.4 Estimated Glomerular Filt Rate 51 Glucose Random 202 60-115 Calcium 9.2 8.4-10.2 PROFILE, RANDOM 2019-02-24 NA 139 135-145 K 3.7 3.3-5.1 CL 97 96-108 CO2 31 22-29 ANION GAP 15 12-20 GLUCOSE,RANDOM 282 60-115 BUN 16 9-16 CREATININE 0.90 0.5-1.4 ESTIMATED GFR > 60 PROTEIN, TOTAL 7.1 6.5-8.0 ALBUMIN 3.6 3.5-5.0 BILIRUBIN, TOTAL 0.3 0.0-1.0 CALCIUM 9.6 8.4-10.2 ALK. PHOS. 104 39-117 GOT 25 5-31 GPT 19 0-31 MAGNESIUM 2019-02-24 MAGNESIUM 1.7 1.6-2.6 PHOSPHORUS 2019-02-24 PHOSPHORUS 3.6 2.7-4.5 URIC ACID 2019-02-24 URIC ACID 7.1 2.4-5.7 CBC w DIFF 2019-02-24 WBC 8.7 4.8-10.8 ABSOLUTE NEUTROPHIL COUNT 5.9 2.2-7. 9 RBC 3.56 4.20-5.50 HEMOGLOBIN 10.2 12.0-16.0 HEMATOCRIT 32.0 37-47 MCV 89.9 80-98 MCH 28.7 27.0-33.0 MCHC 32.0 31.0-35.0 PLATELET COUNT 385 160-400 RDW 16.0 11.0-16.0 NEUTROPHILS 67.9 45-73 LYMPHOCYTES 23.5 20-40 MONOCYTES 6.4 2-11 EOSINOPHILS 1.7 0-4 BASOPHILS 0.5 0-2 HEPATITIS B SURFACE ANTIGEN 2019-02-24 HEPATITIS B SURFACE ANTIGEN NEGATIVE NEGA TIVE HEPATITIS B CORE ANTIBODY 2019-02-24 HEPATITIS B CORE ANTIBODY NONREACTIVE NONREA CTIVE HEPATITIS B SURFACE ANTIBODY 2019-02-24 HEPATITIS B SURFACE ANTIBODY NONREACTIVE NON REACTIVE HEPATITIS C ANTIBODY 2019-02-24 HEPATITIS C ANTIBODY NONREACTIVE NONREACTIVE C3 COMPLEMENT 2019-02-24 C3 COMPLEMENT 175 83-193 C4 COMPLEMENT 2019-02-24 C4 COMPLEMENT 35 15-57 IMMUNOFIXATION PANEL, SERUM 2019-02-24 (IEP) IgG [id number] IgA 527 20-320 IgM 96 50-300 IMFIXS INTERP SEE NOTE () NEUTROPHIL CYTOPLASMA AB (NCA 2019-02-24 ANCA) NEUTROPHIL CYTO AB SCREEN Negative Negati ve C-ANCA TITER Test not performed P-ANCA TITER Test not performed ATYPICAL P-ANCA TITER Test not performed MYELOPEROXIDASE AB (MPO) 2019-02-24 MYELOPEROXIDASE AB <1.0 <1.0 GLOMERULAR BASE MEMBRANE (GBM) 2019-02-24 GLOMERULAR BASE MEMBRANE <1.0 <1.0 ANTI-PR3 2019-02-24 ANTI-PR3 <1.0 <1.0 FLUOR. ANTINUCLEAR AB SCREEN 2019-02-24 (RADHA) KILEY SCREEN, IFA Positive Negative KILEY IFA TITER 1:320 Negative KILEY PATTERN SEE NOTE () VITAMIN D 25-OH TOTAL 2019-02-24 VITAMIN D 25-OH TOTAL 30.3 > 30 TSH (THYROID STIMULATING 2019-02-17 HORMONE) TSH 3.46 0.32-4.0 Foot exam URINALYSIS + MICROSCOPIC 2019-01-30 COLOR YELLOW APPEARANCE,(UA) HAZY SPECIFIC GRAVITY 1.010 1.005-1.025 LEUKOCYTES NEG NEG NITRITE POS NEG PROTEIN,QUALITATIVE NEG NEG - TRACE PH 7.5 5.0-8.0 URINE BLOOD NEG NEG KETONES NEG NEG GLUCOSE NEG NEG MICROSCOPIC WBC 1-4 0-4 MICROSCOPIC RBC 1-4 0 EPITHELIAL CELLS 1+ BACTERIA 2+ HEMOGLOBIN A1C 2019-01-27 (GLYCOHEMOGLOBIN) HEMOGLOBIN A1C % (HH) 7.0 ESTIMATED AVG GLUCOSE 154 MAGNESIUM 2019-01-27 MAGNESIUM 1.8 1.6-2.6 MICROALBUMIN, RANDOM 2019-01-30 MICALB/CRE RATIO RANDOM URINE 12.9 MICROALBUMIN, RANDOM URINE 6.0 CREATININE, RANDOM URINE 46.16 LIPOPROTEIN FRACTIONATION 2019-01-27 W/RFLX (LIPID PNL W/RFLX) CHOLESTEROL 123 TRIGLYCERIDE 151 HDL 35 LDL CALCULATED 58 Hemoglobin A1c 2019-01-14 Value Hemoglobin A1c 7.0 Glucose, finger stick 2019-01-14 Value 157 BUN 2018-10-16 BUN 44 9-16 MRI ABDOMEN WOW CONT 2018-10-11 BUN 2018-10-11 BUN 36 9-16 CREATININE 2018-10-11 CREATININE 1.43 0.5-1.4 ESTIMATED GFR 36 PROFILE, FASTING 2018-08-13 NA 141 135-145 K 4.0 3.3-5.1 CL 94 96-108 CO2 31 22-29 ANION GAP 20 12-20 FASTING BLOOD SUGAR 102 60-99 BUN 36 9-16 CREATININE 1.25 0.5-1.4 ESTIMATED GFR 42 PROTEIN, TOTAL 7.2 6.5-8.0 ALBUMIN 3.4 3.5-5.0 BILIRUBIN, TOTAL 0.5 0.0-1.0 CALCIUM 10.2 8.4-10.2 ALK. PHOS. 87 39-117 GOT 32 5-31 GPT 23 0-31 TSH (THYROID STIMULATING 2018-08-13 HORMONE) TSH 1.71 0.32-4.0 VITAMIN B12 AND FOLATE 2018-08-13 B12 1169 200-900 FOLATE 13.5 > OR = 4.0 CBC w DIFF 2018-08-13 WBC 13.2 4.8-10.8 ABSOLUTE NEUTROPHIL COUNT 10.8 2.2-7. 9 RBC 3.49 4.20-5.50 HEMOGLOBIN 9.2 12.0-16.0 HEMATOCRIT 29.2 37-47 MCV 83.7 80-98 MCH 26.5 27.0-33.0 MCHC 31.6 31.0-35.0 PLATELET COUNT 702 160-400 RDW 17.1 11.0-16.0 NEUTROPHILS 81.5 45-73 LYMPHOCYTES 11.4 20-40 MONOCYTES 6.2 2-11 EOSINOPHILS 0.5 0-4 BASOPHILS 0.4 0-2 Hemoglobin A1c 2018-08-02 Value Hemoglobin A1c 7.6 Glucose, finger stick 2018-08-02 Value 163 BUN 2018-07-30 BUN 26 9-16 CREATININE 2018-07-30 CREATININE 1.40 0.5-1.4 ESTIMATED GFR 37 BUN 2018-07-16 BUN 29 9-16 CREATININE 2018-07-16 CREATININE 1.41 0.5-1.4 ESTIMATED GFR 36 Glucose, finger stick 2018-06-04 Value 160 BUN 2018-06-04 BUN 30 9-16 CREATININE 2018-06-04 CREATININE 1.26 0.5-1.4 ESTIMATED GFR 42 Glucose, finger stick 2018-05-21 Value 201 Glucose, finger stick 2018-05-13 Value 366 Hemoglobin A1c 2018-05-06 Value Hemoglobin A1c 9.0 Glucose, finger stick 2018-05-06 Value 206 Glucose, finger stick 2018-03-04 Value 204 K (POTASSIUM) 2018-03-04 K 3.6 3.3-5.1 BUN 2018-03-04 BUN 23 9-16 CREATININE 2018-03-04 CREATININE 1.31 0.5-1.4 ESTIMATED GFR 40 K (POTASSIUM) 2018-02-05 K 3.6 3.3-5.1 CALCIUM 2018-01-28 CALCIUM 9.5 8.4-10.2 MICROALBUMIN, RANDOM 2018-01-22 MICALB/CRE RATIO RANDOM URINE Test not performed MICROALBUMIN, RANDOM URINE < 5.0 CREATININE, RANDOM URINE 57.64 PARATHYROID HORMONE INTACT 2018-01-28 CALCIUM (PTHI) 9.4 8.6-10.4 Electrocardiogram (EKG) 2018-01-22 URINALYSIS + MICROSCOPIC 2018-01-22 COLOR STRAW APPEARANCE,(UA) HAZY SPECIFIC GRAVITY <= 1.005 1.005-1.025 LEUKOCYTES 1+ NEG NITRITE POS NEG PROTEIN,QUALITATIVE NEG NEG - TRACE PH 6.0 5.0-8.0 URINE BLOOD NEG NEG KETONES NEG NEG GLUCOSE NEG NEG MICROSCOPIC WBC 5-9 0-4 MICROSCOPIC RBC 0 0 EPITHELIAL CELLS TRACE BACTERIA 3+ CBC with MANUAL DIFFERENTIAL 2018-01-15 WBC 15.3 4.8-10.8 ABSOLUTE NEUTROPHIL COUNT 9.4 2.2-7. 9 RBC 4.34 4.20-5.50 HEMOGLOBIN 11.8 12.0-16.0 HEMATOCRIT 37.1 37-47 MCV 85.4 80-98 MCH 27.0 27.0-33.0 MCHC 31.7 31.0-35.0 PLATELET COUNT 724 160-400 RDW 16.4 11.0-16.0 SEGS 60 45-73 BANDS 1 3-5 LYMPHOCYTES 36 20-40 MONOCYTES 3 2-11 PLATELET ESTIMATE INCREASED NORMAL PLATELET MORPHOLOGY NORMAL NORMAL RBC MORPHOLOGY 2+ ANISO NORMAL RBC MORPHOLOGY 1+ MICRO NORMAL RBC MORPHOLOGY 1+ HYPO NORMAL RBC MORPHOLOGY 1+ POIK NORMAL RBC MORPHOLOGY STOMATOCYTES NORMAL HEMOGLOBIN A1C 2018-01-15 (GLYCOHEMOGLOBIN) HEMOGLOBIN A1C % (HH) 11.8 ESTIMATED AVG GLUCOSE 292 LIPOPROTEIN FRACTIONATION 2018-01-15 (LIPID PANEL) CHOLESTEROL 309 TRIGLYCERIDE 298 HDL 47 LDL CALCULATED 203 PROFILE, FASTING 2018-01-15 NA 137 135-145 K 4.0 3.3-5.1 CL 93 96-108 CO2 30 22-29 ANION GAP 18 12-20 FASTING BLOOD SUGAR 174 60-99 BUN 33 9-16 CREATININE 1.33 0.5-1.4 ESTIMATED GFR 39 PROTEIN, TOTAL 7.6 6.5-8.0 ALBUMIN 4.1 3.5-5.0 BILIRUBIN, TOTAL 0.5 0.0-1.0 CALCIUM 11.2 8.4-10.2 ALK. PHOS. 70 39-117 GOT 62 5-31 GPT 43 0-31 TSH (THYROID STIMULATING 2018-01-15 HORMONE) TSH 1.83 0.32-4.0 BASIC METABOLIC PROFILE RANDOM 2018-01-10 NA 139 135-145 K 3.9 3.3-5.1 CL 88 96-108 CO2 36 22-29 ANION GAP 19 12-20 GLUCOSE,RANDOM 206 60-115 BUN 36 9-16 CREATININE 1.48 0.5-1.4 ESTIMATED GFR 35 CALCIUM 11.2 8.4-10.2 BASIC METABOLIC PROFILE RANDOM 2018-01-07 NA 133 135-145 K 3.0 3.3-5.1 CL 92 96-108 CO2 28 22-29 ANION GAP 16 12-20 GLUCOSE,RANDOM 444 60-115 BUN 24 9-16 CREATININE 1.55 0.5-1.4 ESTIMATED GFR 33 CALCIUM 10.4 8.4-10.2 BRAIN NATRIURETIC PEPTIDE (BNP) 2018-01-07 BRAIN NATRIURETIC PEPTIDE 129 < 100 CBC w DIFF 2018-01-07 WBC 8.2 4.8-10.8 ABSOLUTE NEUTROPHIL COUNT 5.6 2.2-7. 9 RBC 3.64 4.20-5.50 HEMOGLOBIN 9.8 12.0-16.0 HEMATOCRIT 30.4 37-47 MCV 83.3 80-98 MCH 26.9 27.0-33.0 MCHC 32.3 31.0-35.0 PLATELET COUNT 264 160-400 RDW 15.3 11.0-16.0 NEUTROPHILS 68.3 45-73 LYMPHOCYTES 21.1 20-40 MONOCYTES 5.3 2-11 EOSINOPHILS 4.6 0-4 BASOPHILS 0.6 0-2 CHEST 2 VIEWS 2017-12-19 Hemoglobin A1c 2017-10-18 Value Hemoglobin A1c 8.5 Glucose, finger stick 2017-10-18 Value 249 MAMMOGRAM DIGITAL UNILATERAL 2017-10-04 JOHN LT Diabetic Eye Exam 2017-09-13 Hemoglobin A1c 2017-07-19 Value Hemoglobin A1c 8.4 Glucose, finger stick 2017-07-19 Value 187 CLOSTRIDIUM DIFF TOXIN A&B (C 2017-07-20 DIFF) CLOSTRIDIUM DIFF TOXIN A&B NEGATIVE NEGAT KARAN Hemoglobin A1c 2017-04-17 Value Hemoglobin A1c 8.3 Glucose, finger stick 2017-04-17 Value 208 LIPOPROTEIN FRACTIONATION 2017-04-09 (LIPID PANEL) CHOLESTEROL 168 TRIGLYCERIDE 203 HDL 43 LDL CALCULATED 85 LIVER PROFILE 2017-04-09 PROTEIN, TOTAL 7.7 6.5-8.0 ALBUMIN 4.1 3.5-5.0 BILIRUBIN, TOTAL 0.4 0.0-1.0 BILIRUBIN, DIRECT 0.2 0.0-0.5 ALK. PHOS. 67 39-117 GOT 29 5-31 GPT 28 0-31 Bone Density BONE DENSITY DEXA 2017-03-08 Foot exam Electrocardiogram (EKG) 2017-01-09 URINALYSIS + MICROSCOPIC 2017-01-02 COLOR YELLOW APPEARANCE,(UA) HAZY SPECIFIC GRAVITY 1.010 1.005-1.025 LEUKOCYTES 1+ NEG NITRITE POS NEG PROTEIN,QUALITATIVE TRACE NEG - TRACE PH 6.0 5.0-8.0 URINE BLOOD NEG NEG KETONES NEG NEG GLUCOSE NEG NEG MICROSCOPIC WBC 5-9 0-4 MICROSCOPIC RBC 0 0 EPITHELIAL CELLS 1+ BACTERIA 4+ CBC with MANUAL DIFFERENTIAL 2017-01-02 WBC 11.3 4.8-10.8 ABSOLUTE NEUTROPHIL COUNT 6.8 2.2-7. 9 RBC 3.58 4.20-5.50 HEMOGLOBIN 10.1 12.0-16.0 HEMATOCRIT 32.1 37-47 MCV 89.7 80-98 MCH 28.3 27.0-33.0 MCHC 31.6 31.0-35.0 PLATELET COUNT 417 160-400 RDW 16.1 11.0-16.0 SEGS 63 45-73 BANDS 5 3-5 LYMPHOCYTES 19 20-40 MONOCYTES 3 2-11 EOSINOPHILS 9 0-4 BASOPHILS 1 0-1 PLATELET ESTIMATE SLIGHTLY INCREASED NORMAL PLATELET MORPHOLOGY NORMAL NORMAL RBC MORPHOLOGY 1+ HYPO NORMAL RBC MORPHOLOGY 1+ ANISO NORMAL RBC MORPHOLOGY 1+ MACRO NORMAL HEMOGLOBIN A1C 2017-01-02 (GLYCOHEMOGLOBIN) HEMOGLOBIN A1C % (HH) 8.9 ESTIMATED AVG GLUCOSE 209 LIPOPROTEIN FRACTIONATION 2017-01-02 (LIPID PANEL) CHOLESTEROL 240 TRIGLYCERIDE 258 HDL 43 LDL CALCULATED 146 PROFILE, FASTING 2017-01-02 NA 138 135-145 K 4.3 3.3-5.1 CL 100 96-108 CO2 24 22-29 ANION GAP 18 12-20 FASTING BLOOD SUGAR 204 60-99 BUN 18 9-16 CREATININE 1.16 0.5-1.4 ESTIMATED GFR 46 PROTEIN, TOTAL 7.3 6.5-8.0 ALBUMIN 3.9 3.5-5.0 BILIRUBIN, TOTAL 0.5 0.0-1.0 CALCIUM 9.6 8.4-10.2 ALK. PHOS. 61 39-117 GOT 31 5-31 GPT 31 0-31 TSH (THYROID STIMULATING 2017-01-02 HORMONE) TSH 3.07 0.32-4.0 MICROALBUMIN, RANDOM 2017-01-02 MICALB/CRE RATIO RANDOM URINE 93.6 MICROALBUMIN, RANDOM URINE 68.0 CREATININE, RANDOM URINE 72.64 Hemoglobin A1c 2016-10-27 Value Hemoglobin A1c 10.6 Glucose, finger stick 2016-10-27 Value 286 HEMOGLOBIN A1C 2016-07-24 (GLYCOHEMOGLOBIN) HEMOGLOBIN A1C % (HH) 11.7 ESTIMATED AVG GLUCOSE 289 LIPOPROTEIN FRACTIONATION 2016-07-24 (LIPID PANEL) CHOLESTEROL 272 TRIGLYCERIDE 437 HDL 35 LDL CALCULATED Test not performed FASTING BLOOD SUGAR (FBS, 2016-07-24 GLUCOSE) FASTING BLOOD SUGAR 332 60-99 LIVER PROFILE 2016-07-24 PROTEIN, TOTAL 7.5 6.5-8.0 ALBUMIN 4.0 3.5-5.0 BILIRUBIN, TOTAL 0.4 0.0-1.0 BILIRUBIN, DIRECT 0.2 0.0-0.5 ALK. PHOS. 62 39-117 GOT 48 5-31 GPT 40 0-31 TSH (THYROID STIMULATING 2016-07-24 HORMONE) TSH 4.23 0.32-4.0 Hemoglobin A1c 2016-04-28 Value Hemoglobin A1c 9.0 CHEST 2 VIEWS 2016-04-21 Glucose, finger stick 2016-04-04 Value 249 Foot exam URINALYSIS + MICROSCOPIC 2015-12-21 COLOR YELLOW APPEARANCE,(UA) HAZY SPECIFIC GRAVITY 1.010 1.005-1.025 LEUKOCYTES TRACE NEG NITRITE POS NEG PROTEIN,QUALITATIVE NEG NEG - TRACE PH 6.0 5.0-8.0 URINE BLOOD NEG NEG KETONES NEG NEG GLUCOSE NEG NEG MICROSCOPIC WBC 1-4 0-4 MICROSCOPIC RBC 0 0 EPITHELIAL CELLS 2+ BACTERIA 4+ CASTS NONE MICROALBUMIN, RANDOM 2015-12-21 MICALB/CRE RATIO RANDOM URINE 13.8 MICROALBUMIN, RANDOM URINE 6.0 CREATININE, RANDOM URINE 43.33 Electrocardiogram (EKG) 2015-12-21 CHOLESTEROL, TOTAL CHOLESTEROL, TOTAL HEMOGLOBIN A1C 2015-12-13 (GLYCOHEMOGLOBIN) HEMOGLOBIN A1C % (HH) 8.1 ESTIMATED AVG GLUCOSE 186 LIPOPROTEIN FRACTIONATION 2015-12-13 (LIPID PANEL) CHOLESTEROL 233 TRIGLYCERIDE 249 HDL 38 LDL CALCULATED 146 PROFILE, FASTING 2015-12-13 NA 136 135-145 K 4.1 3.3-5.1 CL 97 96-108 CO2 25 22-29 ANION GAP 18 12-20 FASTING BLOOD SUGAR 212 60-99 BUN 21 9-16 CREATININE 1.13 0.5-1.4 ESTIMATED GFR 47 PROTEIN, TOTAL 7.0 6.5-8.0 ALBUMIN 3.9 3.5-5.0 BILIRUBIN, TOTAL 0.4 0.0-1.0 CALCIUM 9.5 8.4-10.2 ALK. PHOS. 63 39-117 GOT 58 5-31 GPT 46 0-31 TSH (THYROID STIMULATING 2015-12-13 HORMONE) TSH 3.62 0.32-4.0 CBC w DIFF 2015-12-13 WBC 10.6 4.8-10.8 ABSOLUTE NEUTROPHIL COUNT 7.1 2.2-7. 9 RBC 3.92 4.20-5.50 HEMOGLOBIN 10.8 12.0-16.0 HEMATOCRIT 33.9 37-47 MCV 86.6 80-98 MCH 27.7 27.0-33.0 MCHC 32.0 31.0-35.0 PLATELET COUNT 421 160-400 RDW 15.9 11.0-16.0 NEUTROPHILS 67.4 45-73 LYMPHOCYTES 20.9 20-40 MONOCYTES 5.5 2-11 EOSINOPHILS 5.5 0-4 BASOPHILS 0.8 0-2 Hemoglobin A1c 2015-10-04 Value Hemoglobin A1c 7.4 Glucose, finger stick 2015-10-04 Value 120 Diabetic Eye Exam 2015-09-09 Hemoglobin A1c 2015-06-29 Value Hemoglobin A1c 7.9 Glucose, finger stick 2015-06-29 Value 167 Glucose, finger stick 2015-03-30 Value 188 Hemoglobin A1c 2015-03-11 Value Hemoglobin A1c 9.7 TSH (THYROID STIMULATING 2015-03-01 HORMONE) TSH 3.55 0.32-4.0 Electrocardiogram (EKG) 2014-12-08 Foot exam HEMOGLOBIN A1C 2014-12-07 (GLYCOHEMOGLOBIN) HEMOGLOBIN A1C % (HH) 8.1 ESTIMATED AVG GLUCOSE 186 LIPOPROTEIN FRACTIONATION 2014-12-07 (LIPID PANEL) CHOLESTEROL 252 TRIGLYCERIDE 242 HDL 40 LDL 164 PROFILE, FASTING 2014-12-07 NA 139 135-145 K 3.6 3.3-5.1 CL 100 96-108 CO2 27 22-29 ANION GAP 16 12-20 FASTING BLOOD SUGAR 224 60-99 BUN 19 9-16 CREATININE 1.03 0.5-1.4 ESTIMATED GFR 53 PROTEIN, TOTAL 7.5 6.5-8.0 ALBUMIN 3.9 3.5-5.0 BILIRUBIN, TOTAL 0.5 0.0-1.0 CALCIUM 9.8 8.4-10.2 ALK. PHOS. 57 39-117 GOT 56 5-31 GPT 54 0-31 TSH (THYROID STIMULATING 2014-12-07 HORMONE) TSH 4.89 0.32-4.0 IRON + IBC (FE) 2014-12-07 IRON 82 30-160 IBC 362 228-428 % SATURATION 23 15-50 MICROALBUMIN, RANDOM 2014-12-07 MICALB/CRE RATIO RANDOM URINE 17.4 MICROALBUMIN, RANDOM URINE 19.0 CREATININE, RANDOM URINE 108.98 CBC w DIFF 2014-12-07 WBC 8.0 4.8-10.8 ABSOLUTE NEUTROPHIL COUNT 4.4 2.2-7. 9 RBC 3.93 4.20-5.50 HEMOGLOBIN 12.1 12.0-16.0 HEMATOCRIT 36.5 37-47 MCV 93.1 80-98 MCH 30.9 27.0-33.0 MCHC 33.1 31.0-35.0 PLATELET COUNT 342 160-400 RDW 13.3 11.0-16.0 NEUTROPHILS 54.8 45-73 LYMPHOCYTES 29.6 20-40 MONOCYTES 5.4 2-11 EOSINOPHILS 9.3 0-4 BASOPHILS 1.0 0-2 URINALYSIS + MICROSCOPIC 2014-12-07 COLOR YELLOW APPEARANCE,(UA) HAZY SPECIFIC GRAVITY 1.015 1.005-1.025 LEUKOCYTES NEG NEG NITRITE NEG NEG PROTEIN,QUALITATIVE NEG NEG - TRACE PH 6.5 5.0-8.0 URINE BLOOD NEG NEG KETONES NEG NEG GLUCOSE NEG NEG MICROSCOPIC WBC 0-2 0-4 MICROSCOPIC RBC 0-2 0 EPITHELIAL CELLS 1+ BACTERIA 1+ CASTS NONE CRYSTALS TRIPLE PHOSPHATE 1+ VITAMIN D 25-OH TOTAL 2014-12-07 VITAMIN D 25-OH TOTAL 27.1 > 30 Mammogram CBC (INCLUDES DIFF/PLT) 2014-07-07 WHITE BLOOD CELL COUNT 11.3 3.8-10.8 RED BLOOD CELL COUNT 4.16 3.80-5.10 HEMOGLOBIN 12.9 11.7-15.5 HEMATOCRIT 38.7 35.0-45.0 MCV 93.1 80.0-100.0 MCH 30.9 27.0-33.0 MCHC 33.2 32.0-36.0 RDW 15.3 11.0-15.0 PLATELET COUNT 374 140-400 MPV 8.5 7.5-11.5 ABSOLUTE NEUTROPHILS 6543 [id number] ABSOLUTE LYMPHOCYTES 3322 850-3900 ABSOLUTE MONOCYTES 780 200-950 ABSOLUTE EOSINOPHILS 565 15-500 ABSOLUTE BASOPHILS 90 0-200 NEUTROPHILS 57.9 LYMPHOCYTES 29.4 MONOCYTES 6.9 EOSINOPHILS 5.0 BASOPHILS 0.8 IRON AND TOTAL IRON BINDING 2014-08-18 CAPACITY IRON, TOTAL 83 45-160 IRON BINDING CAPACITY 374 250-450 % SATURATION 22 11-50 CBC (INCLUDES DIFF/PLT) 2014-08-18 WHITE BLOOD CELL COUNT 10.4 3.8-10.8 RED BLOOD CELL COUNT 4.30 3.80-5.10 HEMOGLOBIN 13.4 11.7-15.5 HEMATOCRIT 41.0 35.0-45.0 MCV 95.5 80.0-100.0 MCH 31.1 27.0-33.0 MCHC 32.6 32.0-36.0 RDW 14.6 11.0-15.0 PLATELET COUNT 330 140-400 MPV 8.5 7.5-11.5 ABSOLUTE NEUTROPHILS 7259 1165-0631 ABSOLUTE LYMPHOCYTES 2090 850-3900 ABSOLUTE MONOCYTES 499 200-950 ABSOLUTE EOSINOPHILS 520 15-500 ABSOLUTE BASOPHILS 31 0-200 NEUTROPHILS 69.8 LYMPHOCYTES 20.1 MONOCYTES 4.8 EOSINOPHILS 5.0 BASOPHILS 0.3 COMPREHENSIVE METABOLIC PANEL 2014-07-07 GLUCOSE 108 65-99 UREA NITROGEN (BUN) 22 7-25 CREATININE 1.03 0.60-0.93 eGFR NON-AFR. VENEZUELAN 55 > OR = 60 eGFR 64 > OR = 60 BUN/CREATININE RATIO 21 6-22 SODIUM 138 135-146 POTASSIUM 4.5 3.5-5.3 CHLORIDE 98 98-110 CARBON DIOXIDE 29 19-30 CALCIUM 10.5 8.6-10.4 PROTEIN, TOTAL 7.6 6.1-8.1 ALBUMIN 4.3 3.6-5.1 GLOBULIN 3.3 1.9-3.7 ALBUMIN/GLOBULIN RATIO 1.3 1.0-2.5 BILIRUBIN, TOTAL 0.3 0.2-1.2 ALKALINE PHOSPHATASE 52 33-130 AST 40 10-35 ALT 36 6-29 COMPREHENSIVE METABOLIC PANEL 2014-04-22 GLUCOSE 110 65-99 UREA NITROGEN (BUN) 24 7-25 CREATININE 1.10 0.50-0.99 eGFR NON-AFR. VENEZUELAN 51 > OR = 60 eGFR 59 > OR = 60 BUN/CREATININE RATIO 22 6-22 SODIUM 136 135-146 POTASSIUM 4.5 3.5-5.3 CHLORIDE 95 98-110 CARBON DIOXIDE 29 19-30 CALCIUM 9.8 8.6-10.4 PROTEIN, TOTAL 7.7 6.1-8.1 ALBUMIN 4.1 3.6-5.1 GLOBULIN 3.6 1.9-3.7 ALBUMIN/GLOBULIN RATIO 1.1 1.0-2.5 BILIRUBIN, TOTAL 0.3 0.2-1.2 ALKALINE PHOSPHATASE 65 33-130 AST 23 10-35 ALT 40 6-29 CBC (INCLUDES DIFF/PLT) 2014-04-22 WHITE BLOOD CELL COUNT 11.4 3.8-10.8 RED BLOOD CELL COUNT 4.60 3.80-5.10 HEMOGLOBIN 13.2 11.7-15.5 HEMATOCRIT 41.1 35.0-45.0 MCV 89.4 80.0-100.0 MCH 28.8 27.0-33.0 MCHC 32.2 32.0-36.0 RDW 17.0 11.0-15.0 PLATELET COUNT 409 140-400 MPV 8.2 7.5-11.5 ABSOLUTE NEUTROPHILS 7820 [id number] ABSOLUTE LYMPHOCYTES 2428 850-3900 ABSOLUTE MONOCYTES 718 200-950 ABSOLUTE EOSINOPHILS 331 15-500 ABSOLUTE BASOPHILS 103 0-200 NEUTROPHILS 68.6 LYMPHOCYTES 21.3 MONOCYTES 6.3 EOSINOPHILS 2.9 BASOPHILS 0.9 SED RATE BY MODIFIED MURRAYERGENDY 2014-04-22 SED RATE BY MODIFIED MURRAYERGREN 29 < OR = 30 IRON AND TOTAL IRON BINDING 2014-02-10 CAPACITY IRON, TOTAL 59 45-160 IRON BINDING CAPACITY 403 250-450 % SATURATION 15 11-50 CBC (INCLUDES DIFF/PLT) 2014-02-10 WHITE BLOOD CELL COUNT 10.4 3.8-10.8 RED BLOOD CELL COUNT 4.23 3.80-5.10 HEMOGLOBIN 11.8 11.7-15.5 HEMATOCRIT 35.3 35.0-45.0 MCV 83.5 80.0-100.0 MCH 27.9 27.0-33.0 MCHC 33.4 32.0-36.0 RDW 21.7 11.0-15.0 PLATELET COUNT 413 140-400 MPV 8.0 7.5-11.5 ABSOLUTE NEUTROPHILS 6490 3746-9006 ABSOLUTE LYMPHOCYTES 2662 850-3900 ABSOLUTE MONOCYTES 749 200-950 ABSOLUTE EOSINOPHILS 395 15-500 ABSOLUTE BASOPHILS 104 0-200 NEUTROPHILS 62.4 LYMPHOCYTES 25.6 MONOCYTES 7.2 EOSINOPHILS 3.8 BASOPHILS 1.0 CBC MORPHOLOGY NORMAL cologuard cologuard 2014-01-30 GI BIOPSY 2014-01-30 G.I. BIOPSY IRON AND TOTAL IRON BINDING 2013-12-08 CAPACITY IRON, TOTAL 37 40-160 IRON BINDING CAPACITY 434 250-450 % SATURATION 9 15-50 VITAMIN D, 25-HYDROXY, LC/MS/MS 2013-12-08 VITAMIN D, 25 OH, TOTAL 47 30-100 VITAMIN D, 25 OH, D3 6 VITAMIN D, 25 OH, D2 41 HEMOGLOBIN A1c 2013-12-01 HEMOGLOBIN A1c 7.4 <5.7 LIPID PANEL WITH REFLEX TO 2013-12-01 DIRECT LDL CHOLESTEROL, TOTAL 233 125-200 HDL CHOLESTEROL 45 > OR = 46 TRIGLYCERIDES 197 <150 LDL-CHOLESTEROL 149 <130 CHOL/HDLC RATIO 5.2 < OR = 5.0 NON HDL CHOLESTEROL 188 COMPREHENSIVE METABOLIC PANEL 2013-12-01 GLUCOSE 178 65-99 UREA NITROGEN (BUN) 24 7-25 CREATININE 1.02 0.50-0.99 eGFR NON-AFR. VENEZUELAN 56 > OR = 60 eGFR 65 > OR = 60 BUN/CREATININE RATIO 24 6-22 SODIUM 139 135-146 POTASSIUM 4.2 3.5-5.3 CHLORIDE 99 98-110 CARBON DIOXIDE 25 19-30 CALCIUM 9.5 8.6-10.4 PROTEIN, TOTAL 7.7 6.1-8.1 ALBUMIN 3.8 3.6-5.1 GLOBULIN 3.9 1.9-3.7 ALBUMIN/GLOBULIN RATIO 1.0 1.0-2.5 BILIRUBIN, TOTAL 0.3 0.2-1.2 ALKALINE PHOSPHATASE 56 33-130 AST 27 10-35 ALT 32 6-29 CBC (INCLUDES DIFF/PLT) 2013-12-01 WHITE BLOOD CELL COUNT 9.8 3.8-10.8 RED BLOOD CELL COUNT 3.88 3.80-5.10 HEMOGLOBIN 9.8 11.7-15.5 HEMATOCRIT 32.4 35.0-45.0 MCV 83.4 80.0-100.0 MCH 25.3 27.0-33.0 MCHC 30.3 32.0-36.0 RDW 18.6 11.0-15.0 PLATELET COUNT 439 140-400 MPV 8.4 7.5-11.5 ABSOLUTE NEUTROPHILS [phone] ABSOLUTE LYMPHOCYTES 2715 850-3900 ABSOLUTE MONOCYTES 392 200-950 ABSOLUTE EOSINOPHILS 1127 15-500 ABSOLUTE BASOPHILS 20 0-200 NEUTROPHILS 56.6 LYMPHOCYTES 27.7 MONOCYTES 4.0 EOSINOPHILS 11.5 BASOPHILS 0.2 URINALYSIS, COMPLETE 2013-12-01 COLOR YELLOW YELLOW APPEARANCE CLOUDY CLEAR SPECIFIC GRAVITY 1.016 1.001-1.035 PH 6.5 5.0-8.0 GLUCOSE NEGATIVE NEGATIVE BILIRUBIN NEGATIVE NEGATIVE KETONES NEGATIVE NEGATIVE OCCULT BLOOD NEGATIVE NEGATIVE PROTEIN NEGATIVE NEGATIVE NITRITE POSITIVE NEGATIVE LEUKOCYTE ESTERASE NEGATIVE NEGATIVE WBC NONE SEEN < OR = 5 RBC 0-3 < OR = 3 SQUAMOUS EPITHELIAL CELLS NONE SEEN < OR = 5 BACTERIA FEW NONE SEEN HYALINE CAST NONE SEEN NONE SEEN TSH, 3RD GENERATION 2013-12-01 TSH 4.08 0.40-4.50 MICROALBUMIN, RANDOM URINE 2013-12-01 (W/CREATININE) CREATININE, RANDOM URINE 93 20-320 MICROALBUMIN 0.6 See Note: MICROALBUMIN/CREATININE RATIO, 6 < 30 RANDOM URINE Foot exam Mammogram Mammogram Hemoglobin A1c 2013-08-05 Value 6.8 Hemoglobin A1c 6.8 CLOSTRIDIUM DIFF TOXIN A&B (C 2013-04-08 DIFF) CLOSTRIDIUM DIFF TOXIN A&B NEGATIVE NEGAT KARAN CULTURE, STOOL 2013-04-10 CULTURE, STOOL STOOL CULTURE RESULT CULTURE, STOOL No Salmonella, Shigella, Campylobacter isolated. CULTURE, STOOL No Sorbitol-neg E. coli isolated. CULTURE, STOOL Contact lab if other pathogens are suspected. CULTURE, STOOL LIPID PANEL 2013-01-27 CHOLESTEROL, TOTAL 156 125-200 HDL CHOLESTEROL 51 > OR = 46 TRIGLYCERIDES 197 <150 LDL-CHOLESTEROL 66 <130 CHOL/HDLC RATIO 3.1 < OR = 5.0 NON HDL CHOLESTEROL 105 HEPATIC FUNCTION PANEL 2013-01-27 PROTEIN, TOTAL 7.3 6.1-8.1 ALBUMIN 4.1 3.6-5.1 GLOBULIN 3.2 1.9-3.7 ALBUMIN/GLOBULIN RATIO 1.3 1.0-2.5 BILIRUBIN, TOTAL 0.3 0.2-1.2 BILIRUBIN, DIRECT 0.1 < OR = 0.2 BILIRUBIN, INDIRECT 0.2 0.2-1.2 ALKALINE PHOSPHATASE 66 33-130 AST 23 10-35 ALT 22 6-29 Foot exam LIPID PANEL WITH REFLEX TO 2012-10-28 DIRECT LDL CHOLESTEROL, TOTAL 249 125-200 HDL CHOLESTEROL 51 > OR = 46 TRIGLYCERIDES 216 <150 LDL-CHOLESTEROL 155 <130 CHOL/HDLC RATIO 4.9 < OR = 5.0 NON HDL CHOLESTEROL 198 TSH, 3RD GENERATION 2012-10-28 TSH 3.06 0.40-4.50 TSH, 3RD GENERATION 2012-08-27 TSH 2.91 0.40-4.50 CULTURE, URINE, ROUTINE 2012-08-27 CULTURE, URINE, ROUTINE SEE NOTE URINALYSIS, COMPLETE 2012-08-09 COLOR YELLOW YELLOW APPEARANCE CLOUDY CLEAR SPECIFIC GRAVITY 1.020 1.001-1.035 PH 6.0 5.0-8.0 GLUCOSE NEGATIVE NEGATIVE BILIRUBIN NEGATIVE NEGATIVE KETONES NEGATIVE NEGATIVE OCCULT BLOOD NEGATIVE NEGATIVE PROTEIN NEGATIVE NEGATIVE NITRITE POSITIVE NEGATIVE LEUKOCYTE ESTERASE 2+ NEGATIVE WBC 6-10 < OR = 5 RBC NONE SEEN < OR = 3 SQUAMOUS EPITHELIAL CELLS 0-5 < OR = 5 BACTERIA MANY NONE SEEN HYALINE CAST NONE SEEN NONE SEEN CULTURE, URINE, ROUTINE 2012-08-09 CULTURE, URINE, ROUTINE SEE NOTE CHOLESTEROL, TOTAL CHOLESTEROL, TOTAL Hemoglobin A1c Value Hemoglobin A1c LIPID PANEL NON-HDL CHOLESTEROL ADRIAN TRIGLYCERIDES CHOLESTEROL, TOTAL HDL CHOLESTEROL LDL-CHOLESTEROL CHOL/HDLC RATIO X HEMOGLOBIN A1c 2012-07-29 HEMOGLOBIN A1c 6.6 <5.7 LIPID PANEL WITH REFLEX TO 2012-07-29 DIRECT LDL CHOLESTEROL, TOTAL 219 125-200 HDL CHOLESTEROL 47 > OR = 46 TRIGLYCERIDES 172 <150 LDL-CHOLESTEROL 138 <130 CHOL/HDLC RATIO 4.7 < OR = 5.0 NON HDL CHOLESTEROL 172 COMPREHENSIVE METABOLIC PANEL 2012-07-29 GLUCOSE 131 65-99 UREA NITROGEN (BUN) 25 7-25 CREATININE 1.01 0.50-0.99 eGFR NON-AFR. VENEZUELAN 57 > OR = 60 eGFR 66 > OR = 60 BUN/CREATININE RATIO 25 6-22 SODIUM 138 135-146 POTASSIUM 3.7 3.5-5.3 CHLORIDE 98 98-110 CARBON DIOXIDE 24 19-30 CALCIUM 10.0 8.6-10.4 PROTEIN, TOTAL 7.1 6.1-8.1 ALBUMIN 4.0 3.6-5.1 GLOBULIN 3.1 1.9-3.7 ALBUMIN/GLOBULIN RATIO 1.3 1.0-2.5 BILIRUBIN, TOTAL 0.2 0.2-1.2 ALKALINE PHOSPHATASE 60 33-130 AST 24 10-35 ALT 21 6-40 CBC (INCLUDES DIFF/PLT) 2012-07-29 WHITE BLOOD CELL COUNT 7.9 3.8-10.8 RED BLOOD CELL COUNT 3.84 3.80-5.10 HEMOGLOBIN 10.8 11.7-15.5 HEMATOCRIT 34.4 35.0-45.0 MCV 89.5 80.0-100.0 MCH 28.2 27.0-33.0 MCHC 31.5 32.0-36.0 RDW 17.4 11.0-15.0 PLATELET COUNT 325 140-400 MPV 8.9 7.5-11.5 ABSOLUTE NEUTROPHILS 4298 [id number] ABSOLUTE LYMPHOCYTES 2402 850-3900 ABSOLUTE MONOCYTES 387 200-950 ABSOLUTE EOSINOPHILS 798 15-500 ABSOLUTE BASOPHILS 16 0-200 NEUTROPHILS 54.4 LYMPHOCYTES 30.4 MONOCYTES 4.9 EOSINOPHILS 10.1 BASOPHILS 0.2 URINALYSIS, COMPLETE 2012-07-29 COLOR YELLOW YELLOW APPEARANCE CLOUDY CLEAR SPECIFIC GRAVITY 1.018 1.001-1.035 PH 6.0 5.0-8.0 GLUCOSE NEGATIVE NEGATIVE BILIRUBIN NEGATIVE NEGATIVE KETONES NEGATIVE NEGATIVE OCCULT BLOOD NEGATIVE NEGATIVE PROTEIN NEGATIVE NEGATIVE NITRITE POSITIVE NEGATIVE LEUKOCYTE ESTERASE 2+ NEGATIVE WBC 6-10 < OR = 5 RBC NONE SEEN < OR = 3 SQUAMOUS EPITHELIAL CELLS 0-5 < OR = 5 BACTERIA MANY NONE SEEN HYALINE CAST NONE SEEN NONE SEEN VITAMIN D, 25-HYDROXY, LC/MS/MS 2012-07-29 VITAMIN D, 25 OH, TOTAL 47 30-100 VITAMIN D, 25 OH, D3 5 VITAMIN D, 25 OH, D2 42 EXTRA URINE SPECIMEN 2012-07-29 EXTRA URINE SPECIMEN COMMENT CLOSTRIDIUM DIFF TOXIN A&B (C 2012-05-12 DIFF) CLOSTRIDIUM DIFF TOXIN A&B NEGATIVE NEGAT KARAN Diabetic retinal exam Hemoglobin A1c Value Hemoglobin A1c LIPID PANEL NON-HDL CHOLESTEROL ADRIAN TRIGLYCERIDES CHOLESTEROL, TOTAL HDL CHOLESTEROL LDL-CHOLESTEROL CHOL/HDLC RATIO X CHOLESTEROL, TOTAL CHOLESTEROL, TOTAL HEMOGLOBIN A1c 2011-11-06 HEMOGLOBIN A1c 6.6 <5.7 LIPID PANEL WITH REFLEX TO 2011-11-06 DIRECT LDL CHOLESTEROL, TOTAL 199 125-200 HDL CHOLESTEROL 56 > OR = 46 TRIGLYCERIDES 114 <150 LDL-CHOLESTEROL 120 <130 CHOL/HDLC RATIO 3.6 < OR = 5.0 NON-HDL CHOLESTEROL 143 COMPREHENSIVE METABOLIC PANEL 2011-11-06 GLUCOSE 143 65-99 UREA NITROGEN (BUN) 23 7-25 CREATININE 1.01 0.50-0.99 eGFR NON-AFR. VENEZUELAN 58 > OR = 60 eGFR 67 > OR = 60 BUN/CREATININE RATIO 23 6-22 SODIUM 139 135-146 POTASSIUM 3.9 3.5-5.3 CHLORIDE 97 98-110 CARBON DIOXIDE 29 21-33 CALCIUM 9.7 8.6-10.4 PROTEIN, TOTAL 7.4 6.2-8.3 ALBUMIN 3.9 3.6-5.1 GLOBULIN 3.5 2.2-3.9 ALBUMIN/GLOBULIN RATIO 1.1 1.0-2.1 BILIRUBIN, TOTAL 0.4 0.2-1.2 ALKALINE PHOSPHATASE 61 33-130 AST 26 10-35 ALT 26 6-40 IRON AND TOTAL IRON BINDING 2011-11-06 CAPACITY IRON, TOTAL 72 40-160 IRON BINDING CAPACITY 426 250-450 % SATURATION 17 15-50 CBC (INCLUDES DIFF/PLT) 2011-11-06 WHITE BLOOD CELL COUNT 9.9 3.8-10.8 RED BLOOD CELL COUNT 3.96 3.80-5.10 HEMOGLOBIN 11.6 11.7-15.5 HEMATOCRIT 36.1 35.0-45.0 MCV 91.1 80.0-100.0 MCH 29.3 27.0-33.0 MCHC 32.1 32.0-36.0 RDW 16.0 11.0-15.0 PLATELET COUNT 349 140-400 MPV 8.4 7.5-11.5 ABSOLUTE NEUTROPHILS 6197 4765-4715 ABSOLUTE LYMPHOCYTES 2742 850-3900 ABSOLUTE MONOCYTES 406 200-950 ABSOLUTE EOSINOPHILS 515 15-500 ABSOLUTE BASOPHILS 40 0-200 NEUTROPHILS 62.6 LYMPHOCYTES 27.7 MONOCYTES 4.1 EOSINOPHILS 5.2 BASOPHILS 0.4 URINALYSIS, COMPLETE 2011-11-06 COLOR YELLOW YELLOW APPEARANCE CLEAR CLEAR SPECIFIC GRAVITY 1.017 1.001-1.035 PH 6.5 5.0-8.0 GLUCOSE NEGATIVE NEGATIVE BILIRUBIN NEGATIVE NEGATIVE KETONES NEGATIVE NEGATIVE OCCULT BLOOD TRACE NEGATIVE PROTEIN NEGATIVE NEGATIVE NITRITE NEGATIVE NEGATIVE LEUKOCYTE ESTERASE 2+ NEGATIVE WBC 0-5 < OR = 5 RBC NONE SEEN < OR = 3 SQUAMOUS EPITHELIAL CELLS 0-5 < OR = 5 BACTERIA MANY NONE SEEN HYALINE CAST NONE SEEN NONE SEEN SED RATE BY MODIFIED WESTERGREN 2011-11-06 SED RATE BY MODIFIED WESTERGREN 28 < OR = 30 MICROALBUMIN, RANDOM URINE 2011-11-06 (W/CREATININE) CREATININE, RANDOM URINE 83 20-320 MICROALBUMIN 0.4 See Note: MICROALBUMIN/CREATININE RATIO, 5 < 30 RANDOM URINE Bone Density Mammogram CULTURE, URINE, ROUTINE 2011-01-24 CULTURE, URINE, ROUTINE SEE NOTE REFLEXIVE URINE CULTURE 2011-01-24 REFLEXIVE URINE CULTURE CULTURE INDICATED - RESULTS TO FOLLOW URINALYSIS, COMPLETE W/REFLEX 2011-01-24 TO CULTURE COLOR YELLOW YELLOW APPEARANCE CLEAR CLEAR SPECIFIC GRAVITY 1.013 1.001-1.035 PH 6.0 5.0-8.0 GLUCOSE NEGATIVE NEGATIVE BILIRUBIN NEGATIVE NEGATIVE KETONES NEGATIVE NEGATIVE OCCULT BLOOD TRACE NEGATIVE PROTEIN NEGATIVE NEGATIVE NITRITE NEGATIVE NEGATIVE LEUKOCYTE ESTERASE 3+ NEGATIVE WBC 10-20 < OR = 5 RBC NONE SEEN < OR = 3 SQUAMOUS EPITHELIAL CELLS 0-5 < OR = 5 BACTERIA NONE SEEN NONE SEEN HYALINE CAST NONE SEEN NONE SEEN cologuard REASON FOR VISIT COMP EXAM, FASTING LABS, 6 MO F/U DM, FASTING LIPIDS, 4 scripts, TSH REFLEX FREE T4, refills, reviewlabs, Covid #1 #2 #3 documented HD flu vac documented, No Covid symptoms, COUGH AND CONGESTION will cancel her physical for Sunday rescheduled [id number], Covid #1 #2 #3 #4 documented, Video , c/o headache, cough, SOB, runny nose congestion, FASTING LABS, 3 month asthma, Covid #1 #2 #3 #4 and flu vac documented, If there is a change in Lantus send a RX have the patient call to activateit if no change, No Covid symptoms, Accompanied by , 3 MO F/U ASTHMA, Covid #1 #2 #3 #4 and flu vac documented, No Covid symptoms, Accompanied by , refill , 6 weeks, Covid #1 #2 #3 and HDflu vac documented, No Covid symptoms, 17 refills, 2 MO F/U ASTHMA, Covid #1 #2 #3 and Hd flu vac documented, No Covid symptoms, Patient needs 17 new scripts written, scripts written signed by Dr Jimenes and given to the patient, cerumen impaction, meds , REVIEW LABS, collect urine sample for u/a, unable, Due for Pneumo admin and , Due for Bone Density had done in August will get results sent to us 08-18-20, Due for Mammo had done in August will get [id number], Needs diabetic retinal eye exam 02-04-21 Dr Riggs at [place], DIABETIC FOOT EXAM (take off shoes and socks), No Covid symptoms Covid #1 and #2 and #3 documented, Accompanied byhusband, urine, FASTING LABS, high dose flu injection, 2m anemia,Do Covid Screen No Covid symptoms Covid #1 and #2 documented, Accompanied by , scripts written for Ventolin Meclizine Florastor and nystatin powder, fax note for updraft, needs new updraft and tu manny, 2m f/u, dropping blood count labs in Patient docs, Do Covid screen No Covid symptoms Covid #1 and #2 documented, Accompanied by , script Lantus Pen tips, question, 3 MONTH VISIT, Do Covid Screen No Covid symptoms Covid #1 and 32 documented, Accompanied by , Patient to call with Magnesium dosage, NOT SURE WHAT IS NEEDED FBSAND A1C, also needs Pneumo, Owe $9.94 to Patient, 3 MO F/U ASTHMA Patient needs all meds refilled I am writing the scripts and put on Dr Jimenes's to be signed then mail to the patient, Do Covid Screen No Covid symptoms is ot safe for her to have the covid vaccine, hit left shoulder on door frame very tender 3 days ago floor was slippery just fell against the door, scalp is very itchy dueto CPAP mask x 1 month but also arms and legs itch, This appointment was r/s from 05-10-20 never got doctor's text too much activity going on POLITICS , 14 scripts written and mailed to Dr Jimenes with a stamped envelope so the scripts can be signed and he will mail to the patient, this visit was r/s from 05-10-20, audio [phone], new scripts, repeat Urine order, pre insuff quantity, 5 refills, Comp exam and review labs, Do Covid ScreenNo Covid symptoms, Depression screening; smoking and alcohol status, Communication Screening, Screening for Fall Risk, Due for Mammo - order made appt is 02-20-2020 [facility], Due for Bone Density - order made will ask to be done at [facility], Needs diabetic retinal eye exam Dr. Mcarthur patient to call and have results sent, Due for endo and colonoscopy - Dr. Abdi (referral entered) patient to call for apptFBS this Am 95, video [phone], needs written scripts Allopurinol , Spiriva, Gabapentin Flovent and Dymista, scripts written put on doctor's desk to be signed on 02-11-2020, ? urine not done, Yearly fasting labs, RF Meclizine 25mg, HD Flu, RF Meclizine, rf mECLIZINE 25MG, SOME DIZZINESS, vertigo x 2 days, Call on cell phone [phone], Do COVID Screening NO COVID SYMPTOMS, 6 mo visit, Fasting lipids, needs Diovan, RX refill , new scripts x 15, 3 mo f/u asthma, Screening for Fall Risk, CHF Update, Accompanied by , Patient needs at least 14 scripts refilled last time done no refills, CHF pre visit planning 05/06/19, TSH, All new scripts on 01-30-19, comp exam and review labs, Depression screening; smoking and alcohol status, EKG (had Echo 01/14/19 no need for EKG) Saw Dr Lopez 01/22/19, DIABETIC FOOT EXAM (take off shoes and socks), Dur for Mammogram PT AWARE IS SCHED FOR AUGUST 2019, Due for Bone Density after 03/06 PT AWARE, CHF Update, Accompanied by , Fasting comp labs,Pt request Magnesium, CHF pre visit planning 01/30/19, Ph , Screening for Fall Risk, Was pt given flu vaccine, Accompanied by , 2 mo f/u for CHF, diabetes and hypokalemia (had repeat last month), Do BS &A1C, CHF pre visit planning 12/17/18 , Repeat K, [facility] Visit 10/30/18, 7wk follow up for chf, gout andelevated bun ( was to increase Potassium to 2 pills daily), scheduled to have repeat K next month, has appt with nephrology on 11/26/18 , Accompanied by , Handwritten RX, MRI results & Nephrology Appt, repeat BUN (non-fasting), CHF pre visit planning 10/14/18, Needs to increase K and repeat labs, Needs MRI of liver w/contrast, 4 week f/u for weakness (review labs), CHF, Diabetes (was to decrease lantus at last visit) and yeast infection (started Nystatin at last visit), CHF Update, Accompanied by , CHF Pre Visit planning 09/03/18, Fasting lipids, TSH, Vit B and Folate, CBC w/ diff, 2 wk follow up for chf (started Metolozone at last visit) and GI eval for cirrhosis of liver, Screeningfor Fall Risk, Review labs from 07/30/18, Do BS & A1C for diabetes, Accompanied by , Bun/Creat, CHF Pre visiting planning 07/30/18, 6wk follow up & review ct scan/GI EVALUATION OF LIVER, Accompanied by , CHF Pre Visit Planning 07/16/18, cback 07/16/18, 2 wk follow up for asthma and diabetes , Do BS, Accompanied by , labs drawn for CT Scan, CHF pre visit plannig 06/04/18, 1 week f/u for Asthma; refilled Prednisone and increased Albuterol, Do BS, Accompanied by , Needs scripts to take to [facility], 1 week f/u for asthma; started Prednisone at last visit, Do BS, 2 mo f/u CHF and diabetes, CHF Update, Do BS & A1C today, Screening for Fall Risk, Going back to See Dr Lopez on 05/15/18, Accompanied by , CHF pre visit planning 05/06/18, 2 mo f/u, BREATHING TROUBLE walk in, Accompanied by , DISCUSS DIBETES AND CARDIAC ISSUES, Due for Shingrix #2 WANTS TO DISCUSS WITH THE DOCTOR, Do BS, Accompanied by , 2wk follow up (SOB)(was to have K redrawn), Accompanied by , Should pt continue on the potassium, K (Potassium), CHF pre visit planning, Order, Comp exam, review labs and SEE BACK for cholesterol (review lab and bring over to progress note), Depression screening; smoking and alcohol status, Screening for Fall Risk, EKG - had echo inApril EKG requested by patient, Needs diabetic retinal eye exam [facility], DIABETIC FOOT EXAM (take off shoes and socks), Get U/A and microalbumin (unable to void at lab visit), Saw Dr. Lopez 01/07/18 - was to be seen back in a week (Komal to get further notes and copy of Echo), Pt was to decrease diovan to 80mg, will need new script, going for another ECHO mid January, Accompanied by , decrease diovan , fasting annual labs, Copies have to go to [facility]cc[facility] and Dr Pierre Lopez, CHF previsit planning 01/22/18, 2 wk follow up (CHF), CHF update, Give flu shot, CHF pre visist planning 01/08/18, 1 wk follow up/CBACK CHEST XRAY, Accompanied by , Chest X-ray result, ASTH MA/ YEAST MOUTH, c/o bilateral ankle edema, Question, Pt states she's taking 90 units twice a day, SHINGLES, Valsartan, 3 mo f/u for diabetes, Do BS & A1C, Has appt w/Dr. Abdi in October for Clostridial gastroenteritis, Needs diabetic retinal eye exam - last done 08/2015 at [facility] WAS DONEIN AUGUST, Have pt call insurance co re: [employer] PT AWARE, Accompanied by , 3 MO F/U for diabetes, Do BS & A1C, Screening for Fall Risk, Have pt call insurance co re: [employer], HAD SX ON Apr AND CONTINUES TO HAVE DIARRHEA SINCE THEN, Accompanied by , CERVICAL FUSION /DR Elam (Pre-Op)and 3 mo visit for diabetes, get surgery date 05-07-17 [facility] preop labs and EKG 04-25-17, Needs all scripts refilled, 3 mo visit for cholesterol and diabetes (review labs from Sunday), Do BS & A1C, Needs diabetic retinal eye exam, fasting lipids, RF, Statement, Comp exam and review labs/see back cholesterol, Depression screening; smoking and alcohol status, Screening for Fall Risk , EKG done, Due forbone density, mammo, diabetic foot exam, and diabetic eye exam - print out orders, Give BMI printoutprintout given to patient, Had mammo in august at [facility] will have them send copy, fasting annual labs, no flu today URI, Doctor Referral Needed, 3 mo visit for diabetes and BMI Counseling, Do BS & A1C, Refer to [facility] - pt wants referral to come from here, Give BMI printout, Needs diabetic retinal eye exam PT HAD IT DONE A MTH OR SO AGO [facility], RX, New RX for Lantus, needs 90 day supply, 3 mo visit for diabetes, thyroid and cholesterol - review labs, Due for bone density and mammogram - give order HAS MAMMO SCHED FOR MAY, Depression and urinary incontinence screening;smoking and alcohol status,NEEDS SCRIPT FOR IBUPROFEN AND DITROPAN, fasting labs, RX refill, P-A Echo, Yearly Echo, STILL NOT FEELING WELL, Bad cough x 1wk, 3 month f/u, Draw BS & A1C, Discuss Shingles patient to check records at home, Needs diabetic retinal eye exam Goes to [facility] in [place] in October yearly, FLU SHOT,ANNUAL EXAM and review labs, Patient to bring urine for urinalysis and microalbumin sent, Depressionscreening; smoking and alcohol status, Do EKG done, Due for Diabetic Eye Exam - have pt get copy; due for mammogram have results sent had mammo 09-14-2015, DIABETIC FOOT EXAM (take off shoes and socks),FASTING ANNUAL LABS, 3 mo visit, Patient needs all scripts refilled and printed out, 3 mo visit for f/u on asthma and diabetes, Give pneumo, Do BS & A1C, needs refill on levothyroxine 75mcg, 3 wk visit for f/u on diabetes and asthma (started onglyza and breo at last visit), Give pneumo, Do BS, perinsurance pt must try Januvia 100mg, 3 mo visit and review labs, due for diabetic eye exam print outpt education PT STATES THAT SHE HAD IN 10/2014 [place], Due for BS & A1C, TSH, flu vaccine, CHEST CONGESTION/COUGH x 1 week, Headache, albuteral inhaler, ANNUAL EXAM and review labs from yesterday, Depression screening; smoking and alcohol status, DIABETIC FOOT EXAM, get name of eye doctor and get results of eye exam, ANNUAL LABS/ FAST 12 HOURS, refill Vitamin D, fefill-metformin, 6 MO VISIT andreview labs, Due for A1C and BS, Get Diabetic Eye Doctor and latest results [facility] Dr. Escalante 11-12-14 will have results sent, [facility] Print Out BMI education and give patient her BMI number, NON FASTING LABS, refill Vitamin D, REFILLS- MOTRIN & LORENA, REFILL- METFORMIN, needs refill om metformin/ levothyroxine, 2 MO VISIT and review labs, Give flu shot; due for pneumo, NON FASTING LABS, refill Amox and Vanc, Needs Colonoscopy, ANNAUL EXAM & CBACK ABNORMAL CBC, Do EKG, needs Prilosec 20mg, Diovan 160mg, HCTZ [facility], ANNUAL LABS/FAST 12 HOURS, DM FOOTWEAR, 3 day f/u on the cellulitis, 3 day f/u on infected toe, nausea X 5 days and vomiting had vomiting X 3 days but is gone now, check left secondtoe - has been inflammed, due for mammogram - booked for 5/14/14 at [facility], Need Rx Refill for Florastor 250 mgs twice a day and Loerna 180 twice a day (30 day supply), 6 mo visit, Colorectal cancer screening due 2018, REFILL-- MET, DIT, MOTRIN, Needs Rx for Dental Work, DIARRHEA SINCE SUN, 3 MOVISIT and review labs, head and chest congestion headache, FAST 12 HOURS, Labs before next appt & A1C, 3 MO VSIIT and review labs, needs refill PRILOSEC 20MG, HCTZ 25MG, dIOVAN 160MG, Lorena 180MGbid, lACRI-lUBE OINT tID PRN, FAST 12 HOURS/272.0, DENTAL WORK, TSH & SPECIMEN, 6MOFU and reviewlabs, needs TSH - was not done, review paperwork for diabetic shoes, review repeat UA and UC&S, antibiotic started last night, Antibiotic for UTI & paperwork for diabetic shoes, SPECIMEN/ UC&S, Needs UC&S, UC&S, FAST 12 HOURS, 30 days of thyroid medicine, NAUSEA & DIARRHEA, NEEDS WRITTEN RX, 1 MO VISIT, 1 WK VISIT, SCIATIC PN, 3 MO VISIT for f/u on hypercholesterolemia and diabetes, patient did not have lipids done, FLVA, REFILL PRILOSEC, 4 MO VISIT & review labs, FBS - 143, UA - trace of blood, Due for diabetic eye exam GOES TWICE/ YEAR AT [facility] FOR [facility]YES, sinus pressure, FAST 12 HOURS, DENTEL WORK, Rx Refill for Vitamin D, LARYNGITIST, EFILL, 3mofu, 3MOFU, 2MOFU Insurance Providers [facility] Health Member Patient Patient Patient Patient Patient Subscriber Subscriber Subscriber Group Insurance Plan Plan Plan Plan ID Relationship Address Phone Name Date of ID Name Date of No Type Insurance Insurance Insurance Coverage to Subscriber Address Phone Name Dates [place] [phone] [place] 1 [id number] [facility] M[address] [facility] [id number] TTS MEDICARE 75 ÓSCAR MEDICARE self [place] [id number] [facility] [address] MEDICARE 75 [place] MEDICARE self [place] [id number] [facility] [place]MBERLY M[place]ER [id number]
[2022-06-02 11:31] VITALS: BP 126/58; PULSE 78; RESP 17; TEMP 37.7; O2SAT 92
[2022-06-02 11:40] VITALS: BP 116/44; PULSE 80; RESP 16; TEMP 36.8
[2022-06-02 13:14] VITALS: BP 133/62; PULSE 77; RESP 17; TEMP 36.8; O2SAT 97
== END 2022-06-02 14:06 | disposition home or self-care (01) ==
PROVIDERS: Emergency Provider Emergency Medicine; PCP Internal Medicine
DX: S00.03XA Contusion of scalp, initial encounter (principal); R51.9 Headache, unspecified; M54.2 Cervicalgia; W01.10XA Fall on same level from slipping, tripping and stumbling with subsequent striking against unspecified object, initial encounter; Y93.9 Activity, unspecified; Y92.9 Unspecified place or not applicable; Y99.9 Unspecified external cause status; Z79.899 Other long term (current) drug therapy
CPT/HCPCS: 70450; 72125; 99284

== ENCOUNTER 2022-06-09 16:04 | Outpatient (REF) | payer MEDICARE, OTHER, SELFPAY ==
--- NOTE | ~2022-06-09 | XR_ITS ---
EXAMINATION: XR KNEE, LEFT CLINICAL INFORMATION: Patellar injury. COMPARISON: None TECHNIQUE: AP, lateral, and both oblique views of the left knee. FINDINGS: Prosthetic components of the left total knee arthroplasty are appropriately aligned without periprosthetic fracture. There is a increased lucency distal and lateral to the tibial component stem. This measures 3 mm laterally and 1.0 cm distal relative to the stem. No component migration. No joint effusion. XR/XR knee LT 4V IMPRESSION: Appropriate alignment of the left total knee arthroplasty. There is increased lucency peripheral to the tibial component stem.
== END 2022-06-09 16:05 | disposition home or self-care (01) ==
LOC: HO.XRAY 16:04
PROVIDERS: PCP Internal Medicine; Visit Provider Internal Medicine
DX: S89.92XD Unspecified injury of left lower leg, subsequent encounter (principal)
CPT/HCPCS: 73564

== ENCOUNTER → 2022-07-03 09:10 | Outpatient (BNVA) | payer MEDICARE, OTHER, SELFPAY | PROVIDERS: PCP Internal Medicine; Visit Provider Internal Medicine | DX: Z51.81 Encounter for therapeutic drug level monitoring (principal); M25.511 Pain in right shoulder; M25.512 Pain in left shoulder; M54.16 Radiculopathy, lumbar region; G89.4 Chronic pain syndrome | CPT/HCPCS: 99212 ==

== ENCOUNTER → 2022-08-01 13:13 | Outpatient (BNVA) | payer MEDICARE, OTHER, SELFPAY | PROVIDERS: PCP Internal Medicine; Visit Provider Hospitalist | DX: J45.50 Severe persistent asthma, uncomplicated (principal); J98.4 Other disorders of lung; I11.0 Hypertensive heart disease with heart failure; I50.30 Unspecified diastolic (congestive) heart failure; G47.33 Obstructive sleep apnea (adult) (pediatric); Z98.890 Other specified postprocedural states; Z99.89 Dependence on other enabling machines and devices; Z79.899 Other long term (current) drug therapy | CPT/HCPCS: 99212 ==

== ENCOUNTER 2022-08-02 05:57 | Outpatient (REF) | payer MEDICARE, OTHER, SELFPAY ==
--- NOTE | ~2022-08-02 | FL_ITS ---
EXAMINATION: XR FL WITH IMAGES CLINICAL INFORMATION: Pain in right shoulder. COMPARISON: None available. TECHNIQUE: Fluoroscopy Supervised By: Dr. Scherer Fluoroscopy Time: 0.2. Cumulative Dose: 3.7 mGy. DAP: 0.5 Gycm2. Images: 1. FINDINGS: Images demonstrate needle placement over the right humeral head. There is contrast in the right shoulder joint. FL/FL guidance in treatment room IMPRESSION: Fluoroscopy guidance for pain management procedure.
== END 2022-08-02 05:58 | disposition home or self-care (01) ==
LOC: CF 05:57
PROVIDERS: Visit Provider Internal Medicine
DX: G89.4 Chronic pain syndrome (principal); M19.012 Primary osteoarthritis, left shoulder; M19.011 Primary osteoarthritis, right shoulder
CPT/HCPCS: 20610; J1020; J3301

== ENCOUNTER 2022-08-21 10:41 | Outpatient (REF) | payer MEDICARE, OTHER, SELFPAY ==
[2022-08-21 11:04] LABS: Alanine Aminotransferase 25 U/L (0-31); Albumin Level 3.9 g/dL (3.5-5.0); Alkaline Phosphatase 86 U/L (39-117); Aspartate Amino Transferase 27 U/L (5-31); Bilirubin Direct 0.2 mg/dL (0.0-0.5); Bilirubin Total 0.8 mg/dL (0.0-1.0); Cholesterol 191 mg/dL; Glucose Fasting 131 mg/dL (60-99); HDL Cholesterol 49 mg/dL; LDL Cholesterol Calculated 105 mg/dl; Total Protein 6.8 g/dL (6.5-8.0); Triglycerides 185 mg/dL
[2022-08-21 11:18] LABS: Estimated Average Glucose 174 mg/dL; Hemoglobin A1c % 7.7 %
[2022-08-21 13:02] LABS: Reflex LDLD? No
== END 2022-08-21 10:42 | disposition home or self-care (01) ==
LOC: HO.LNP 10:41
PROVIDERS: Visit Provider Internal Medicine
DX: E11.9 Type 2 diabetes mellitus without complications (principal); E78.00 Pure hypercholesterolemia, unspecified
CPT/HCPCS: 80061; 80076; 82947; 83036

== ENCOUNTER → 2022-09-01 08:20 | Outpatient (BNVA) | payer MEDICARE, OTHER, SELFPAY | PROVIDERS: PCP Internal Medicine; Visit Provider Internal Medicine | DX: Z51.81 Encounter for therapeutic drug level monitoring (principal); F11.20 Opioid dependence, uncomplicated; M25.551 Pain in right hip; M25.552 Pain in left hip; M25.511 Pain in right shoulder; M25.512 Pain in left shoulder; M70.70 Other bursitis of hip, unspecified hip; M70.61 Trochanteric bursitis, right hip; M70.62 Trochanteric bursitis, left hip; M54.16 Radiculopathy, lumbar region; M47.816 Spondylosis without myelopathy or radiculopathy, lumbar region; M48.062 Spinal stenosis, lumbar region with neurogenic claudication; G89.4 Chronic pain syndrome | CPT/HCPCS: 99212 ==

== ENCOUNTER 2022-09-06 06:08 | Outpatient (REF) | payer MEDICARE, OTHER, SELFPAY ==
--- NOTE | ~2022-09-06 | FL_ITS ---
EXAMINATION: XR FLUOROSCOPY WITH IMAGES CLINICAL INFORMATION: Chronic pain. COMPARISON: None available. TECHNIQUE: Fluoroscopy Supervised By: Shakila. Fluoroscopy Time: 0.4 minutes. Cumulative Dose: 11.5 mGy. DAP: 1.88 Gycm2. Images: 2. FINDINGS: There are 2 digital images obtained needle positioned along the superior aspect of right femoral head in the hip joint with contrast opacifying the soft tissues. Mild reduction of the right hip joint space is seen. No bony abnormality. FL/FL guidance in treatment room IMPRESSION: Fluoroscopy was provided to referrer for pain management.
== END 2022-09-06 06:09 | disposition home or self-care (01) ==
LOC: CF 06:08
PROVIDERS: Visit Provider Internal Medicine
DX: G89.4 Chronic pain syndrome (principal); M25.552 Pain in left hip
CPT/HCPCS: 20610; J3301

== ENCOUNTER → 2022-09-29 08:58 | Outpatient (BNVA) | payer MEDICARE, OTHER, SELFPAY | PROVIDERS: PCP Internal Medicine; Visit Provider Internal Medicine | DX: Z51.81 Encounter for therapeutic drug level monitoring (principal); F11.20 Opioid dependence, uncomplicated; M48.062 Spinal stenosis, lumbar region with neurogenic claudication | CPT/HCPCS: 99212 ==

== ENCOUNTER 2022-10-20 13:26 | Outpatient (REF) | payer MEDICARE, OTHER, SELFPAY | END 2022-10-20 13:27 | disposition home or self-care (01) | LOC: HO.HOSX 13:26 | PROVIDERS: PCP Internal Medicine; Visit Provider Physician Assistant | DX: M54.16 Radiculopathy, lumbar region (principal) | CPT/HCPCS: 99202 ==

== ENCOUNTER 2022-11-06 11:43 | Outpatient (AMB) | payer MEDICARE, OTHER, SELFPAY ==
[2022-11-06 11:49] VITALS: BP 126/66; PULSE 75; RESP 15; O2SAT 90; BMI 45.7
--- NOTE | 2022-11-06 11:49 | A.OFFVIS_ITS ---
Intake Vital Signs 11/06/22 11:49 Height 5 ft 4 in Weight 266 lb BMI 45.7 BP 126/66 Blood Pressure Location Rt radial Position Sitting Respiration 15 Pulse 75 Pulse Source Pulse Oximeter Pulse Oximetry (%) 90 L Oxygen Delivery Method Room Air Intake Visit Reasons: Pill count Allergies cephalexin [From Keflex] Allergy (Severe, Verified 09/29/22 09:05) Itching pravastatin [Pravachol] Allergy (Severe, Verified 09/29/22 09:05) cramps bacitracin Adverse Reaction (Severe, Verified 09/29/22 09:05) eye swelling dexamethasone [TobraDex] Adverse Reaction (Severe, Verified 09/29/22 09:05) redness swelling tobramycin [TobraDex] Adverse Reaction (Severe, Verified 09/29/22 09:05) redness swelling Sulfa (Sulfonamide Antibiotics) Adverse Reaction (Intermediate, Verified 09/29/22 09:05) GI upset atorvastatin [From Lipitor] Adverse Reaction (Verified 09/29/22 09:05) Unknown Beef Containing Products Adverse Reaction (Verified 09/29/22 09:05) Unknown erythromycin base Adverse Reaction (Verified 09/29/22 09:05) Unknown Penicillins [PCN] Adverse Reaction (Verified 09/29/22 09:05) Unknown sulfacetamide [From Sulfacet-R] Adverse Reaction (Verified 09/29/22 09:05) Unknown sulfur [From Sulfacet-R] Adverse Reaction (Verified 09/29/22 09:05) Unknown topiramate [From Topamax] Adverse Reaction (Verified 09/29/22 09:05) Unknown HPI Pill count HPI Details 77-year-old female presenting today for a pill count. 48 pills were expected, and 54 pills were presented. The patient has visited Dr. Davies and is scheduled to undergo renewed imaging for later this week. Today she complains of left shoulder pain that radiates down to the back of the arm. She states that her scapula region is most bothersome. She has hand pain that is worse due to the weather. She has had two cervical fusion surgeries in the past. She states that her hip pain is back to baseline. She is using Tylenol P.R.N. She had a therapeutic hip injection, which provided moderate relief. She has difficulty standing and walking for prolonged periods of time. She is using a cane or rollator for ambulation. Past Procedures: 09/06/22: Hip Intra-articular Injection, fluoroscopy guided, Left: >50% relief. 08/02/2022: Right glenohumeral steroid injection: >50% relief. 05/10/22: Right glenohumeral corticosteroid injection: >50% relief. 04/19/22: Intra-articular left glenohumeral injection: >50% relief. 02/22/22: Diagnostic bilateral suprascapular nerve block - 0% relief bilaterally 02/08/22: Bilateral Ischial Bursa /left GTB- Good relief with better mobility 11/25/21: Interlaminar Midline L3-L4 MARIZA ? Good relief for leg pain, able to walk more and better. 10/26/21: Bilateral L3-L4-L5 Diagnostic MBBs ? 30% relief for 2 days. [facility] Medical History Arthritis of both glenohumeral joints Asthma Chronic pain syndrome Chronic restrictive lung disease Dyspnea Dyspnea Gouty arthritis Neurogenic claudication due to lumbar spinal stenosis CLEVE on CPAP Tracheitis Surgical History History of cholecystectomy History of eyelid surgery History of knee replacement Status post cervical spinal fusion Family History Father HTN (hypertension) Stroke Diabetes Mother Atrial fibrillation HTN (hypertension) Social History Alcohol intake: never Patient Tobacco Use Status: Former Tobacco user Tobacco use type: Cigarette Years Smoked: 20 years Second Hand Smoke Exposure: No Review of Systems Const All systems reviewed & are unremarkable except as noted in HPI and below Physical Exam Vital Signs: Last Vital Signs Pulse 75 11/06/22 11:49 Resp 15 11/06/22 11:49 BP 126/66 11/06/22 11:49 Pulse Ox 90 L 11/06/22 11:49 Oxygen Delivery Method Room Air 11/06/22 11:49 BMI result Body Mass Index 45.7 General: Appears afebrile. Alert and oriented. Mood and affect appropriate. Follows and participates in conversation appropriately. Respiratory effort is unlabored. Able to transition from sit to stand unassisted. Ambulates with bilaterally normal heel strike and toe off. Results Reviewed Results Reviewed: No imaging is available for review. Assessment & Plan Assessment & Plan (1) Bilateral shoulder pain: Code(s): M25.511 - Pain in right shoulder; M25.512 - Pain in left shoulder (2) Bilateral hip pain: Code(s): M25.551 - Pain in right hip; M25.552 - Pain in left hip (3) Greater trochanteric bursitis of both hips: Code(s): M70.61 - Trochanteric bursitis, right hip; M70.62 - Trochanteric bursitis, left hip (4) Lumbar radiculopathy: Code(s): M54.16 - Radiculopathy, lumbar region (5) Chronic pain syndrome: Comment: Requiring narcotic use Code(s): G89.4 - Chronic pain syndrome (6) Neurogenic claudication due to lumbar spinal stenosis: Code(s): M48.062 - Spinal stenosis, lumbar region with neurogenic claudication Plan 1. Discussed suprascapular nerve stimulator vs. RFA as possible options for shoulder pain at this point. We also discussed that steroid injection is not a feasible option at this point in time given recent multiple therapeutic inje ctions and risk of osteoporosis with cumulative steroid intake. She is interested in trialing suprascapular nerve stimulator. Will revisit this option once her lumbar spine surgery is completed. 2. A refill of Vicodin was provided for the patient. 3. Patient is awaiting repeat lumbar spine imaging before following up with Dr. Davies. 3. The patient will follow up in five weeks for pill count on the nursing schedule. Scribed for Dr. Scherer by Sae Hurst, medical affairs leader, on 11/06/2022. I, Dr. Scherer, have personally reviewed and agree with the information entered by the scribe. Medications: Refilled hydrocodone-acetaminophen 5-300 mg Partial Fill upon patient request. 1 tab PO Q8H 30 days PRN 90 tabs 0RF pain Coding Level of Care Code Est Pt Level 4 (89548) Diagnoses Bilateral shoulder pain M25.511; M25.512 Bilateral hip pain M25.551; M25.552 Greater trochanteric bursitis of both hips M70.61; M70.62 Lumbar radiculopathy M54.16 Chronic pain syndrome G89.4 Neurogenic claudication due to lumbar spinal stenosis M48.062
== END 2022-11-06 12:19 | disposition home or self-care (01) ==
PROVIDERS: PCP Internal Medicine; Visit Provider Internal Medicine
DX: M25.511 Pain in right shoulder (principal); M25.512 Pain in left shoulder; M70.62 Trochanteric bursitis, left hip; M70.61 Trochanteric bursitis, right hip; M25.551 Pain in right hip; G89.4 Chronic pain syndrome; M48.062 Spinal stenosis, lumbar region with neurogenic claudication; M54.16 Radiculopathy, lumbar region; M25.552 Pain in left hip
CPT/HCPCS: 99214

== ENCOUNTER → 2022-11-06 11:43 | Outpatient (BNVA) | payer MEDICARE, OTHER, SELFPAY | PROVIDERS: PCP Internal Medicine; Visit Provider Internal Medicine | DX: Z51.81 Encounter for therapeutic drug level monitoring (principal); M25.511 Pain in right shoulder; M25.512 Pain in left shoulder; M25.551 Pain in right hip; M25.552 Pain in left hip; M70.61 Trochanteric bursitis, right hip; M70.62 Trochanteric bursitis, left hip; M54.16 Radiculopathy, lumbar region; M48.062 Spinal stenosis, lumbar region with neurogenic claudication; G89.4 Chronic pain syndrome | CPT/HCPCS: 99212 ==

== ENCOUNTER → 2022-12-12 11:04 | Outpatient (BNVA) | payer MEDICARE, OTHER, SELFPAY | PROVIDERS: PCP Internal Medicine; Visit Provider Internal Medicine | DX: Z79.891 Long term (current) use of opiate analgesic (principal) | CPT/HCPCS: 99211 ==

== ENCOUNTER 2023-01-15 10:59 | Outpatient (AMB) | payer MEDICARE, OTHER, SELFPAY ==
--- NOTE | 2023-01-15 11:06 | A.OFFVIS_ITS ---
Intake Vital Signs 01/15/23 11:19 Height 5 ft 4 in Weight 267 lb 6 oz BMI 45.9 BP 124/59 L Blood Pressure Location Lt brachial Position Sitting Pulse 97 Pulse Source Pulse Oximeter Pulse Oximetry (%) 93 Oxygen Delivery Method Room Air Intake Visit Reasons: Pill count/random UDS Intake Note: Vy comes in today for a pill count to hydrocodone-acetaminophen, patient should have 21 tablets and presents with 36 tablets which she last took today 01/15/23 at 8:25am. Pain today 510. Patient will also have a random UDS done today, aware she needs to go to the lab on the first floor of this building today 01/15/23 before 12pm. 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 Allergies cephalexin [From Keflex] Allergy (Severe, Verified 12/12/22 11:31) Itching pravastatin [Pravachol] Allergy (Severe, Verified 12/12/22 11:31) cramps bacitracin Adverse Reaction (Severe, Verified 12/12/22 11:31) eye swelling dexamethasone [TobraDex] Adverse Reaction (Severe, Verified 12/12/22 11:31) redness swelling tobramycin [TobraDex] Adverse Reaction (Severe, Verified 12/12/22 11:31) redness swelling Sulfa (Sulfonamide Antibiotics) Adverse Reaction (Intermediate, Verified 12/12/22 11:31) GI upset atorvastatin [From Lipitor] Adverse Reaction (Verified 12/12/22 11:31) Unknown Beef Containing Products Adverse Reaction (Verified 12/12/22 11:31) Unknown erythromycin base Adverse Reaction (Verified 12/12/22 11:31) Unknown Penicillins [PCN] Adverse Reaction (Verified 12/12/22 11:31) Unknown sulfacetamide [From Sulfacet-R] Adverse Reaction (Verified 12/12/22 11:31) Unknown sulfur [From Sulfacet-R] Adverse Reaction (Verified 12/12/22 11:31) Unknown topiramate [From Topamax] Adverse Reaction (Verified 12/12/22 11:31) Unknown HPI Pill count/random UDS HPI Details 77-year-old female who presents today to the office for a pill count. 30 pills were expected and 36 pills were presented. The patient reports left shoulder pain that radiates down to her arm, hand, and fingers. She has had two cervical fusion surgeries in the past. She has back pain and leg pain. She denies any weakness in her lower extremities; however, she has gait imbalance issues. The patient visited [facility] Doming[facility] and had an MRI scan completed. She was scheduled to follow up with Dr. Davies with a repeat lumbar MRI report, but she has not visited him. The patient has a scheduled appointment with Dr. Vides on 02/16/23. She is yet to have the cervical MRI done that was ordered as well. Past Procedures: 09/06/22: Hip Intra-articular Injection, fluoroscopy guided, Left: >50% relief. 08/02/2022: Right glenohumeral steroid i njection: >50% relief. 05/10/22: Right glenohumeral corticoster oid injection: >50% relief. 04/19/22: Intra-articular left glenohume ral injection: >50% relief. 02/22/22: Diagnostic bilateral suprascap ular nerve block - 0% relief bilaterally 02/08/22: Bilateral Ischial Bursa /left GTB- Good relief with better mobility 11/25/21: Interlaminar Midline L3-L4 MARIZA ? Good relief for leg pain, able to walk more and better. 10/26/21: Bilateral L3-L4-L5 Diagnostic M BBs ? 30% relief for 2 days. [facility] Medical History Arthritis of both glenohumeral joints Asthma Chronic pain syndrome Chronic restrictive lung disease Dyspnea Dyspnea Gouty arthritis Neurogenic claudication due to lumbar spinal stenosis CLEVE on CPAP Tracheitis Surgical History History of cholecystectomy History of eyelid surgery History of knee replacement Status post cervical spinal fusion Family History Father HTN (hypertension) Stroke Diabetes Mother Atrial fibrillation HTN (hypertension) Social History Alcohol intake: never Patient Tobacco Use Status: Former Tobacco user Tobacco use type: Cigarette Years Smoked: 20 years Second Hand Smoke Exposure: No Review of Systems Const All systems reviewed & are unremarkable except as noted in HPI and below Physical Exam Vital Signs: Last Vital Signs Pulse 97 01/15/23 11:19 BP 124/59 L 01/15/23 11:19 Pulse Ox 93 01/15/23 11:19 Oxygen Delivery Method Room Air 01/15/23 11:19 BMI result Body Mass Index 45.9 General: Appears afebrile. Alert and oriented. Mood and affect appropriate. Follows and participates in conversation appropriately. Respiratory effort is unlabored. Able to transition from sit to stand unassisted. Ambulates with bilaterally normal heel strike and toe off. Results Reviewed Results Reviewed: No imaging is available for review. Assessment & Plan Assessment & Plan (1) Lumbar radiculopathy: Code(s): M54.16 - Radiculopathy, lumbar region (2) Status post cervical spinal fusion: Code(s): Z98.1 - Arthrodesis status (3) Chronic pain syndrome: Comment: Requiring narcotic use Code(s): G89.4 - Chronic pain syndrome Plan 1. A refill of Vicodin was provided for the patient today in the office. The patient will follow up in five weeks for pill count on the nursing schedule. 2. Follow-up with Dr. Davies as scheduled for lumbar spine findings and potential decompression discussion. 3. Cervical spine MRI order will be faxed again to [facility]. The patient is interested in seeing Dr. Elam to discuss those findings given history of prior ACDF with him. Scribed for Dr. Scherer by Sae Hurst, medical billing clerk, on 01/15/2023. I, Dr. Scherer, have personally reviewed and agree with the information entered by the scribe. Medications: Refilled hydrocodone-acetaminophen 5-300 mg Partial Fill upon patient request. 1 tab PO Q8H PRN 90 tabs 0RF pain 30 days Coding Level of Care Code Est Pt Level 4 (54741) Diagnoses Lumbar radiculopathy M54.16 Status post cervical spinal fusion Z98.1 Chronic pain syndrome G89.4
[2023-01-15 11:19] VITALS: BP 124/59; PULSE 97; O2SAT 93; BMI 45.9
== END 2023-01-15 11:33 | disposition home or self-care (01) ==
PROVIDERS: PCP Internal Medicine; Visit Provider Internal Medicine
DX: G89.4 Chronic pain syndrome (principal); M54.16 Radiculopathy, lumbar region; Z98.1 Arthrodesis status; Z79.891 Long term (current) use of opiate analgesic
CPT/HCPCS: 99214

== ENCOUNTER → 2023-01-15 10:59 | Outpatient (BNVA) | payer MEDICARE, OTHER, SELFPAY | PROVIDERS: PCP Internal Medicine; Visit Provider Internal Medicine | DX: Z51.81 Encounter for therapeutic drug level monitoring (principal); F11.20 Opioid dependence, uncomplicated; M54.16 Radiculopathy, lumbar region; G89.4 Chronic pain syndrome; Z98.1 Arthrodesis status | CPT/HCPCS: 99212 ==

== ENCOUNTER 2023-01-23 13:10 | Outpatient (AMB) | payer MEDICARE, OTHER, SELFPAY ==
[2023-01-23 13:22] VITALS: PULSE 92; O2SAT 95; BMI 45.8
--- NOTE | 2023-01-23 13:22 | MHC.OFFVIS ---
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 Required: No Allergies cephalexin [From Keflex] Allergy (Severe, Verified 01/23/23 13:25) Itching pravastatin [Pravachol] Allergy (Severe, Verified 01/23/23 13:25) cramps bacitracin Adverse Reaction (Severe, Verified 01/23/23 13:25) eye swelling dexamethasone [TobraDex] Adverse Reaction (Severe, Verified 01/23/23 13:25) redness swelling tobramycin [TobraDex] Adverse Reaction (Severe, Verified 01/23/23 13:25) redness swelling Sulfa (Sulfonamide Antibiotics) Adverse Reaction (Intermediate, Verified 01/23/23 13:25) GI upset atorvastatin [From Lipitor] Adverse Reaction (Verified 01/23/23 13:25) Unknown Beef Containing Products Adverse Reaction (Verified 01/23/23 13:25) Unknown erythromycin base Adverse Reaction (Verified 01/23/23 13:25) Unknown Penicillins [PCN] Adverse Reaction (Verified 01/23/23 13:25) Unknown sulfacetamide [From Sulfacet-R] Adverse Reaction (Verified 01/23/23 13:25) Unknown sulfur [From Sulfacet-R] Adverse Reaction (Verified 01/23/23 13:25) Unknown topiramate [From Topamax] Adverse Reaction (Verified 01/23/23 13:25) Unknown HPI HPI Comments History of Present Illness Details The patient is a 77 y/o woman with a history of asthma COPD overlap syndrome. She was admitted to [facility] with worsening dyspnea symptoms. She was found to be in congestive heart failure. She was aggressively diuresed. Recently underwent an echocardiogram demonstrated diastolic dysfunction and also moderate to severe aortic stenosis did increased gradient. She did follow-up with her journalists and other writers who recommended she undergo a right heart catheterization to assess pressures and consider a transcutaneous aortic valve replacement. At this point the patient is trying to continue recovering after her prolonged hospitalization in rehabilitation. She is off all nebulized therapy at this time. She does have her Flovent and Spiriva that she uses daily. She continues to Nucala in the allergy shots with good effect. Otherwise the patient is doing well in good spirits. She has not required the oxygen. She did follow-up with cardiology in time to have a cardiac catheterization to assess her aortic stenosis. The patient is also dealing with a questionable rotator cuff injury and will be following up with orthopedic surgery. She continues uses CPAP. The CPAP therapy continues to be affecting beneficial. 12/04/2019 Today the patient is here for pulmonary follow-up visit. Overall she is doing very well from a respiratory status. She continues on her respiratory regimen with good adherence. Has not required any rescue medicine or even her nebulizer. She continues on the Lasix medication with good volume status. No significant lower extremity edema. She continues with her allergy shots along with Nucala. Her CPAP therapy continues to be affecting beneficial. Although she is getting a lot of leaks from her mask making it difficult for her to sleep at nighttime. Once the COVID-19 infection settle she will call her [employer] to make a date for mask clinic. She will be seeing cardiology soon regarding her aortic stenosis. At this point the patient is trying to avoid the COVID-19 infections and likely will have to plan to schedule testing for the beginning of 2020. 06/24/2020 the patient is here for pulmonary follow-up visit. The patient continues to have significant shortness of breath. Is actually gotten worse. Moderate severity. She has a hard time doing her activities of daily living. She continues with the current respiratory therapy continues with her allergy shots. She has been complaining of increasing raspiness of her voice. She is also having increased mucus production. Denies any hemoptysis. She had a back a so tracheitis in the past with significant hemoptysis. At that point her cultures are positive for Staph aureus. She has also had increased lower extremity edema. She has also has some evidence of cellulitis primarily in the right lower extremity. At this time the patient is being evaluated for potential treatment for her aortic stenosis. It appears to to be getting worse. Also, concerning for the possibility of worsening respiratory symptoms and not able to proceed with her procedure safely. She continues uses CPAP therapy. Although with the cough and sometimes is makes it difficult. At this point will treated with doxycycline to treat her underlying history of Staph tracheitis. In addition to that we will request a CT scan of the neck to better assess the trachea and see if there is any irregularities. Could also consider bronchoscopy but at this point will try to minimize semi invasive procedures. 05/23/2021 the patient is here for a pulmonary follow-up visit. The patient is status post transcatheter aortic valve replacement. The surgery went very well and she was able to be discharged from the hospital postop day 1. no complications. The meantime she is on home now. She continues on diuresis. The patient does complaint of dyspnea on exertion. She does still have a hard time walking because of her significant hip and back pain. The patient is currently working with stopping specialist regarding her significant discomfort. In the meantime she continues with respiratory medications. She also continues on the Nucala injections once a Months. She is having hard time sleeping. She was using trazodone. Then she was started on a at the present so than the trazodone was stopped. She is also on gabapentin at this time. I did talk about that she has multiple options for sleep aids. One option is to increase her gabapentin at nighttime. She states that she will follow-up with air pollution specialist regarding that since the initiated the medication. So therefore I am okay for her to continue with the as needed trazodone as long as she keeps at 50 mg. The patient has a lot of polypharmacy at this point we need to simplify her regimen. 09/22/2021 the patient is here for a pulmonary follow-up visit. Overall she has been doing okay. She does complaint of persistent dyspnea on exertion. She did follow-up with her cardiology is [place] regarding the shortness of breath. she was told that she is doing well from a cardiac status. She does have multifactorial reasons for the shortness of breath. She has significant back discomfort that keeps her from being mobile. Therefore she is decondition. She had to stop doing pulmonary rehabilitation due to her discomfort. She is currently working with pain management for her pain management. She will be undergoing intervention soon. from an asthma standpoint she has been doing well. She continues use her respiratory therapy. She has not required her rescue medication. She continues with Nucala. She also continues uses CPAP at nighttime. The CPAP therapy continues to be affecting beneficial. She does use was 4 hours a night. The patient is wondering about the chlorhexidine mouthwash. I did state that she can continue using it for the month of September specially since she is going to be undergoing a surgical procedure for her pain management. However, after she should hold off on using because he can affect her dentition. 01/23/2023 the patient is here for a pulmonary follow-up visit. She is doing well from a respiratory status. She continues with respiratory medications. Does have dyspnea on exertion but is likely multifactorial. She does have significant back pain. She does use a cane and also has a walker. Currently she is on a wheelchair because it is difficult for her to walk in the hospital settings. She is currently being evaluated by Neurosurgery. She is not sure she is going to undergo additional surgeries for his spinal stenosis. At this point she is pretty debilitated so she is likely to consider it if it can be beneficial. In the meantime she continues with the Nucala injections. This point they appeared to be affecting beneficial when she will continue them for now. She does get allergy symptoms due to the IgE elevation but at this point she can treat the symptoms with allergy medicines. She continues use her respiratory therapy. No evidence of any laryngitis or issues with tracheal disease. She does have a CPAP and she does use it every night. The CPAP therapy continues to be affecting beneficial. She does use it for more than 4 hours a night. However, the fullface mask is causing her to get a lot of irritation and ulceration to the nasal bridge. I did provide her with an F30 mask with hopes that she could provide good enough seal for her to tolerated. Although, she does have a very tiny PT nose which makes it hard for her to get a good seal with the hybrid mask. She will try anyways at least take a break from the irritation from the nasal bridge. The patient is doing well from a respiratory status therefore the patient is able to return in 10-12 months for a follow-up visit. If he has any issues prior to that she is to call the office for an earlier assessment. [facility] Medical History Arthritis of both glenohumeral joints Asthma Chronic pain syndrome Chronic restrictive lung disease Dyspnea Dyspnea Gouty arthritis Neurogenic claudication due to lumbar spinal stenosis CLEVE on CPAP Tracheitis Surgical History History of cholecystectomy History of eyelid surgery History of knee replacement Status post cervical spinal fusion Family History Father HTN (hypertension) Stroke Diabetes Mother Atrial fibrillation HTN (hypertension) Social History Alcohol intake: never Patient Tobacco Use Status: Former Tobacco user Tobacco use type: Cigarette Years Smoked: 20 years Second Hand Smoke Exposure: No Review of Systems Const Denies daytime sleepiness, Denies difficulty sleeping and Denies night sweats ENT Denies change in voice, Denies hoarseness, Denies lip swelling, Reports epistaxis, Denies mouth pain, Reports nasal congestion, Reports nasal discharge, Reports post nasal drip and Denies tongue swelling Card Denies chest pain and Reports dyspnea on exertion Resp Denies chest congestion, Reports cough, Denies excessive phlegm production and Reports dyspnea on exertion GI Denies abdominal pain Musc Reports as per HPI, Reports abnormal gait, Reports back pain, Reports arthralgias, Reports limited range of motion and Reports stiffness Neuro Denies Neuro-related abnormal movements and Reports abnormal gait Psych Denies no additional complaints Miguel/Lymph Denies easy bleeding and Denies lymphadenopathy Aller/Immun Denies lip swelling and Denies tongue swelling Physical Exam Vital Signs: Last Vital Signs Pulse 92 01/23/23 13:22 Pulse Ox 95 01/23/23 13:22 Oxygen Delivery Method Room Air 01/23/23 13:22 BMI result Body Mass Index 45.8 Const General: alert Neck Neck: Yes normal visual inspection, Yes full ROM and Yes no lymphadenopathy Chest Chest palpation & inspection: normal inspection of the chest Resp Auscultation: no wheezes and diminished lung sounds Cardio Rate: regular rate Rhythm: regular rhythm Heart sounds: S1 normal heart sound present and S2 normal heart sound present GI Palpation (GI): Soft to palpation and nontender Auscultation: normal bowel sounds Skin General skin exam: rashes and/or lesions noted Extrem General: No calf tenderness, No clubbing, No cyanosis and Yes edema Assessment & Plan Assessment & Plan (1) CLEVE on CPAP: Code(s): G47.33 - Obstructive sleep apnea (adult) (pediatric); Z99.89 - Dependence on other enabling machines and devices (2) Chronic restrictive lung disease: Comment: Moderate severity, not much different from 2019 Code(s): J98.4 - Other disorders of lung (3) Asthma: Code(s): J45.909 - Unspecified asthma, uncomplicated Qualifiers: Asthma complication type: uncomplicated Asthma persistence: persistent Asthma severity: moderate Qualified Code(s): J45.40 - Moderate persistent asthma, uncomplicated Plan Continue Flovent continue Spiriva Respimat 2 inhalations daily Nebulized therapy as needed On biologic therapy with Nucala every 4 weeks Continue CPAP therapy, trial small F30 mask to allow the nasal bridge skin trauma to heal Use saline gel Trazodone as needed for sleep F/U 10-12 months Coding Level of Care Code Est Pt Level 4 (79637) Diagnoses CLEVE on CPAP G47.33; Z99.89 Chronic restrictive lung disease J98.4 Moderate persistent asthma without complication J45.40 Asthma complication type: uncomplicated Asthma persistence: persistent Asthma severity: moderate Time Spent (min) 17
== END 2023-01-23 13:44 | disposition home or self-care (01) ==
PROVIDERS: PCP Internal Medicine; Visit Provider Hospitalist
DX: G47.33 Obstructive sleep apnea (adult) (pediatric) (principal); Z99.89 Dependence on other enabling machines and devices; J98.4 Other disorders of lung; J45.40 Moderate persistent asthma, uncomplicated
CPT/HCPCS: 99214

== ENCOUNTER → 2023-01-23 13:10 | Outpatient (BNVA) | payer MEDICARE, OTHER, SELFPAY | PROVIDERS: Visit Provider Hospitalist | DX: J98.4 Other disorders of lung (principal); J45.40 Moderate persistent asthma, uncomplicated; G47.33 Obstructive sleep apnea (adult) (pediatric); Z99.89 Dependence on other enabling machines and devices | CPT/HCPCS: 99212 ==

== ENCOUNTER 2023-02-12 11:21 | Outpatient (AMB) | payer MEDICARE, OTHER, SELFPAY ==
[2023-02-12 11:48] VITALS: BP 120/66; PULSE 98; RESP 14; O2SAT 94; BMI 45.7
--- NOTE | 2023-02-12 11:48 | MHC.OFFVIS ---
Intake Vital Signs 02/12/23 11:48 Height 5 ft 4 in Weight 266 lb BMI 45.7 BP 120/66 Blood Pressure Location Rt radial Position Sitting Respiration 14 Pulse 98 Pulse Source Pulse Oximeter Pulse Oximetry (%) 94 Oxygen Delivery Method Room Air Intake Visit Reasons: PILL COUNT Intake Note: Pt states she last took vicodin 02/12/23 @ 8:30am Allergies cephalexin [From Keflex] Allergy (Severe, Verified 02/12/23 11:49) Itching pravastatin [Pravachol] Allergy (Severe, Verified 02/12/23 11:49) cramps bacitracin Adverse Reaction (Severe, Verified 02/12/23 11:49) eye swelling dexamethasone [TobraDex] Adverse Reaction (Severe, Verified 02/12/23 11:49) redness swelling tobramycin [TobraDex] Adverse Reaction (Severe, Verified 02/12/23 11:49) redness swelling Sulfa (Sulfonamide Antibiotics) Adverse Reaction (Intermediate, Verified 02/12/23 11:49) GI upset atorvastatin [From Lipitor] Adverse Reaction (Verified 02/12/23 11:49) Unknown Beef Containing Products Adverse Reaction (Verified 02/12/23 11:49) Unknown erythromycin base Adverse Reaction (Verified 02/12/23 11:49) Unknown Penicillins [PCN] Adverse Reaction (Verified 02/12/23 11:49) Unknown sulfacetamide [From Sulfacet-R] Adverse Reaction (Verified 02/12/23 11:49) Unknown sulfur [From Sulfacet-R] Adverse Reaction (Verified 02/12/23 11:49) Unknown topiramate [From Topamax] Adverse Reaction (Verified 02/12/23 11:49) Unknown Medication List - Last Reconciled 02/12/23 by Naz Simpson LPN albuterol sulfate 90 mcg/actuation 2 puffs PO Q4H albuterol sulfate 2.5 mg (3 mL) inhalation Q4H PRN allopurinol 100 mg PO DAILY aspirin 81 mg PO DAILY atorvastatin 20 mg PO DAILY bepotastine besilate 1.5% (Bepreve) 1 drp ophthalmic (eye) DAILY PRN chlorhexidine gluconate 0.12% 15 mL buccal DAILY 30 days cholecalciferol (vitamin D3) (Vitamin D3) 25 mcg PO DAILY dulaglutide (Trulicity) mg subcut duloxetine 60 mg PO DAILY epinephrine 0.3 mL IM ONCE PRN ferrous sulfate (FeroSul) 325 mg PO DAILY fluticasone propionate 220 mcg/actuation 2 puffs inhalation BID furosemide (Lasix) 80 mg PO BID 30 days gabapentin 100 mg PO .AM gabapentin 400 mg PO BEDTIME hydrocodone-acetaminophen 5-300 mg 1 tab PO Q8H PRN 30 days insulin glargine units subcut levothyroxine 75 mcg PO DAILY meclizine 25 mg PO BID PRN mepolizumab 100 mg subcut Q4W nystatin 1 appl topical BID omeprazole 20 mg PO DAILY potassium chloride ER 10 mEq PO BID Saccharomyces boulardii (Florastor) 250 mg PO BID sitagliptin phosphate 100 mg PO DAILY tiotropium bromide 1.25 mcg/actuation inhalation trazodone 50 mg PO BEDTIME PRN valsartan (Diovan) 80 mg PO DAILY HPI PILL COUNT HPI Details 77-year-old female who presents today to the office for a pill count. 27 pills were expected and 45 pills were presented. She denies any change in her medical history since last visit. The patient has an upcoming appointment with Dr. Elam on 02/27/23. Past Procedures: 09/06/22: Hip Intra-articular Injection, fluoroscopy guided, Left: >50% relief. : Right glenohumeral steroid injection: >50% relief. 05/10/22: Right glenohumeral corticosteroid injection: >50% relief. 04/19/22: Intra-articular left glenohumeral injection: >50% relief. 02/22/22: Diagnostic bilateral suprascapular nerve block - 0% relief bilaterally 02/08/22: Bilateral Ischial Bursa /left GTB- Good relief with better mobility 11/25/21: Interlaminar Midline L3-L4 MARIZA ? Good relief for leg pain, able to walk more and better. 10/26/21: Bilateral L3-L4-L5 Diagnostic MBBs ? 30% relief for 2 days. [facility] Medical History Arthritis of both glenohumeral joints Asthma Chronic pain syndrome Chronic restrictive lung disease Dyspnea Dyspnea Gouty arthritis Neurogenic claudication due to lumbar spinal stenosis CLEVE on CPAP Tracheitis Surgical History History of cholecystectomy History of eyelid surgery History of knee replacement Status post cervical spinal fusion Family History Father HTN (hypertension) Stroke Diabetes Mother Atrial fibrillation HTN (hypertension) Social History Alcohol intake: never Patient Tobacco Use Status: Former Tobacco user Tobacco use type: Cigarette Years Smoked: 20 years Second Hand Smoke Exposure: No Review of Systems Const All systems reviewed & are unremarkable except as noted in HPI and below Physical Exam Vital Signs: Last Vital Signs Pulse 98 02/12/23 11:48 Resp 14 02/12/23 11:48 BP 120/66 02/12/23 11:48 Pulse Ox 94 02/12/23 11:48 Oxygen Delivery Method Room Air 02/12/23 11:48 BMI result Body Mass Index 45.7 General: Appears afebrile. Alert and oriented. Mood and affect appropriate. Follows and participates in conversation appropriately. Respiratory effort is unlabored. Able to transition from sit to stand unassisted. Ambulates with bilaterally normal heel strike and toe off. Results Reviewed Results Reviewed: No imaging is available for review. Assessment & Plan Assessment & Plan (1) Chronic pain syndrome: Comment: Requiring narcotic use Code(s): G89.4 - Chronic pain syndrome Plan A refill of Vicodin was provided for the patient today in the office. Pill count and Mass PAT were consistent. The patient will follow up in four weeks for pill count on the nursing schedule. Scribed for Dr. Scherer by Sae Hurst, medical supply technician, on 02/12/2023. I, Dr. Scherer, have personally reviewed and agree with the information entered by the scribe. Coding Level of Care Code Est Pt Level 3 (45768) Diagnoses Chronic pain syndrome G89.4
== END 2023-02-12 12:39 | disposition home or self-care (01) ==
PROVIDERS: PCP Internal Medicine; Visit Provider Internal Medicine
DX: G89.4 Chronic pain syndrome (principal)
CPT/HCPCS: 99213

== ENCOUNTER → 2023-02-12 11:21 | Outpatient (BNVA) | payer MEDICARE, OTHER, SELFPAY | PROVIDERS: PCP Internal Medicine; Visit Provider Internal Medicine | DX: Z51.81 Encounter for therapeutic drug level monitoring (principal); F11.20 Opioid dependence, uncomplicated; G89.4 Chronic pain syndrome | CPT/HCPCS: 99212 ==

== ENCOUNTER 2023-02-19 10:46 | Outpatient (REF) | payer MEDICARE, OTHER, SELFPAY ==
[2023-02-19 10:51] LABS: MANUAL DIFF FLAG NO
[2023-02-19 11:13] LABS: Basophils Absolute Auto 0.1 X10*3/uL (0.0-0.2); Basophils Percent Auto 0.7 % (0-2); Eosinophils Absolute Auto 0.2 X10*3/uL (0.0-0.4); Eosinophils Percent Auto 2.2 % (0-4); Hematocrit 40.5 % (37.0-47.0); Hemoglobin 12.7 g/dl (12.0-16.0); Imm Gran Abs Auto 0.04 X10*3/uL (0.00-0.03); Imm Gran Pct Auto 0.4 % (0.0-0.4); Lymphocytes Absolute Auto 2.9 X10*3/uL (1.2-4.9); Lymphocytes Percent Auto 27.1 % (20-40); Mean Corpuscular HGB Conc 31.4 g/dl (31.0-35.0); Mean Corpuscular Hemoglobin 32.4 pg (27.0-33.0); Mean Corpuscular Volume 103.3 fL (80.0-98.0); Mean Platelet Volume 10.3 fL (9.4-12.3); Monocytes Absolute Auto 0.7 X10*3/uL (0.1-1.2); Neutrophils Absolute Auto 6.6 x10*3/uL (2.0-8.3); Neutrophils Percent Auto 62.6 % (45-73); Platelet Count 278 X10*3/uL (160-400); Red Blood Count 3.92 X10*6/uL (4.20-5.50); Red Cell Distribution Width 14.6 % (11.0-16.0); White Blood Count 10.5 X10*3/uL (4.8-10.8)
[2023-02-19 11:22] LABS: Estimated Average Glucose 128 mg/dL; Hemoglobin A1c % 6.1 % (<6.0)
[2023-02-19 11:41] LABS: Alanine Aminotransferase 23 U/L (0-31); Albumin Level 3.8 g/dL (3.5-5.0); Alkaline Phosphatase 77 U/L (39-117); Anion Gap 17 (12-20); Aspartate Amino Transferase 26 U/L (5-31); Bilirubin Total 0.5 mg/dL (0.0-1.0); Blood Urea Nitrogen 22 mg/dL (9-16); Carbon Dioxide 29 mmol/L (22-29); Chloride 100 mmol/L (96-108); Cholesterol 160 mg/dL (<200); Estimated Glomerular Filt Rate 41; Glucose Fasting 164 mg/dL (60-99); HDL Cholesterol 43 mg/dL (>40); LDL Cholesterol Calculated 83 mg/dL (<100); Potassium 4.2 mmol/L (3.3-5.1); Sodium 142 mmol/L (135-145); Total Protein 7.9 g/dL (6.5-8.0); Triglycerides 174 mg/dL (<150)
[2023-02-19 11:49] LABS: Vitamin D 25-OH Total 28.7 ng/mL (>30)
[2023-02-19 13:36] LABS: Free T4 (Free Thyroxine) 1.16 ng/dL (0.71-1.85)
== END 2023-02-19 10:47 | disposition home or self-care (01) ==
LOC: HO.LNP 10:46
PROVIDERS: Visit Provider Internal Medicine
DX: E03.9 Hypothyroidism, unspecified (principal); I11.0 Hypertensive heart disease with heart failure; I50.21 Acute systolic (congestive) heart failure; E55.9 Vitamin D deficiency, unspecified; E78.00 Pure hypercholesterolemia, unspecified; E11.9 Type 2 diabetes mellitus without complications
CPT/HCPCS: 80053; 80061; 82306; 83036; 84439; 84443; 85025

== ENCOUNTER 2023-03-12 14:04 | Outpatient (AMB) | payer MEDICARE, OTHER, SELFPAY ==
[2023-03-12 14:29] VITALS: BP 131/64; RESP 14
--- NOTE | 2023-03-12 14:29 | A.OFFVIS_ITS ---
Intake Vital Signs 03/12/23 14:29 Height 5 ft 4 in BP 131/64 Blood Pressure Location Lt radial Position Sitting Respiration 14 Pulse Source Pulse Oximeter Intake Visit Reasons: Medication Count/confirmed Allergies cephalexin [From Keflex] Allergy (Severe, Verified 03/12/23 14:33) Itching pravastatin [Pravachol] Allergy (Severe, Verified 03/12/23 14:33) cramps bacitracin Adverse Reaction (Severe, Verified 03/12/23 14:33) eye swelling dexamethasone [TobraDex] Adverse Reaction (Severe, Verified 03/12/23 14:33) redness swelling tobramycin [TobraDex] Adverse Reaction (Severe, Verified 03/12/23 14:33) redness swelling Sulfa (Sulfonamide Antibiotics) Adverse Reaction (Intermediate, Verified 03/12/23 14:33) GI upset atorvastatin [From Lipitor] Adverse Reaction (Verified 03/12/23 14:33) Unknown Beef Containing Products Adverse Reaction (Verified 03/12/23 14:33) Unknown erythromycin base Adverse Reaction (Verified 03/12/23 14:33) Unknown Penicillins [PCN] Adverse Reaction (Verified 03/12/23 14:33) Unknown sulfacetamide [From Sulfacet-R] Adverse Reaction (Verified 03/12/23 14:33) Unknown sulfur [From Sulfacet-R] Adverse Reaction (Verified 03/12/23 14:33) Unknown topiramate [From Topamax] Adverse Reaction (Verified 03/12/23 14:33) Unknown Medication List - Last Reconciled 03/12/23 by Naz Simpson LPN albuterol sulfate 90 mcg/actuation 2 puffs PO Q4H albuterol sulfate 2.5 mg (3 mL) inhalation Q4H PRN allopurinol 100 mg PO DAILY aspirin 81 mg PO DAILY atorvastatin 20 mg PO DAILY bepotastine besilate 1.5% (Bepreve) 1 drp ophthalmic (eye) DAILY PRN chlorhexidine gluconate 0.12% 15 mL buccal DAILY 30 days cholecalciferol (vitamin D3) (Vitamin D3) 25 mcg PO DAILY dulaglutide (Trulicity) mg subcut duloxetine 60 mg PO DAILY epinephrine 0.3 mL IM ONCE PRN ferrous sulfate (FeroSul) 325 mg PO DAILY fluticasone propionate 220 mcg/actuation 2 puffs inhalation BID furosemide (Lasix) 80 mg PO BID 30 days gabapentin 100 mg PO .AM gabapentin 400 mg PO BEDTIME hydrocodone-acetaminophen 5-300 mg 1 tab PO Q8H PRN 30 days insulin glargine units subcut levothyroxine 75 mcg PO DAILY meclizine 25 mg PO BID PRN mepolizumab 100 mg subcut Q4W nystatin 1 appl topical BID omeprazole 20 mg PO DAILY potassium chloride ER 10 mEq PO BID Saccharomyces boulardii (Florastor) 250 mg PO BID sitagliptin phosphate 100 mg PO DAILY tiotropium bromide 1.25 mcg/actuation inhalation trazodone 50 mg PO BEDTIME PRN valsartan (Diovan) 80 mg PO DAILY HPI Medication Count/confirmed HPI Details 77-year-old female who presents today fo r a medication count. 21 pills were expected and 53.5 pills we re presented. The patient is overall doing well. She has had no major health changes since her last visit. She reports that her left side is worse than right side. She is using heating pad. She states that her appointment with Dr. Elam was rescheduled due to busy schedule. She will visit Dr. Elam later this week. Past Procedures: 09/06/22: Hip Intra-articular Injection, fluoroscopy guided, Left: >50% relief. : Right glenohumeral steroid injection: >50% relief. 05/10/22: Right glenohumeral corticoster oid injection: >50% relief. 04/19/22: Intra-articular left glenohume ral injection: >50% relief. 02/22/22: Diagnostic bilateral suprascap ular nerve block - 0% relief bilaterally 02/08/22: Bilateral Ischial Bursa /left GTB- Good relief with better mobility 11/25/21: Interlaminar Midline L3-L4 MARIZA ? Good relief for leg pain, able to walk more and better. 10/26/21: Bilateral L3-L4-L5 Diagnostic M BBs ? 30% relief for 2 days. [facility] Medical History Arthritis of both glenohumeral joints Asthma Chronic pain syndrome Chronic restrictive lung disease Dyspnea Dyspnea Gouty arthritis Neurogenic claudication due to lumbar spinal stenosis CLEVE on CPAP Tracheitis Surgical History History of cholecystectomy History of eyelid surgery History of knee replacement Status post cervical spinal fusion Family History Father HTN (hypertension) Stroke Diabetes Mother Atrial fibrillation HTN (hypertension) Social History Alcohol intake: never Patient Tobacco Use Status: Former Tobacco user Tobacco use type: Cigarette Years Smoked: 20 years Second Hand Smoke Exposure: No Review of Systems Const All systems reviewed & are unremarkable except as noted in HPI and below Physical Exam Vital Signs: Last Vital Signs Resp 14 03/12/23 14:29 BP 131/64 03/12/23 14:29 General: Appears afebrile. Alert and oriented. Mood and affect appropriate. Follows and participates in conversation appropriately. Respiratory effort is unlabored. Able to transition from sit to stand unassisted. Ambulates with bilaterally normal heel strike and toe off. Results Reviewed Results Reviewed: No imaging is available for review. Assessment & Plan Assessment & Plan (1) Chronic pain syndrome: Comment: Requiring narcotic use Code(s): G89.4 - Chronic pain syndrome Plan 21 pills were expected and 53.5 pills were presented. A refill of Vicodin was provided for the patient today in the office. Pill count and Mass PAT were consistent. The patient will follow up in four weeks for pill count on the nursing schedule. Scribed for Dr. Scherer by Sae Hurst, emergency medicine medical director, on 03/12/2023. I, Dr. Scherer, have personally reviewed and agree with the information entered by the scribe. Medications: Refilled hydrocodone-acetaminophen 5-300 mg Partial Fill upon patient request. 1 tab PO Q8H PRN 90 tabs 0RF pain 30 days Coding Level of Care Code Est Pt Level 3 (16555) Diagnoses Chronic pain syndrome G89.4
== END 2023-03-12 14:44 | disposition home or self-care (01) ==
PROVIDERS: PCP Internal Medicine; Visit Provider Internal Medicine
DX: G89.4 Chronic pain syndrome (principal)
CPT/HCPCS: 99213

== ENCOUNTER → 2023-03-12 14:04 | Outpatient (BNVA) | payer MEDICARE, OTHER, SELFPAY | PROVIDERS: PCP Internal Medicine; Visit Provider Internal Medicine | DX: G89.4 Chronic pain syndrome (principal) | CPT/HCPCS: 99212 ==

== ENCOUNTER 2023-04-11 10:01 | Outpatient (AMB) | payer MEDICARE, OTHER, SELFPAY ==
[2023-04-11 10:11] VITALS: BP 142/76; RESP 20; O2SAT 94; BMI 45.5
--- NOTE | 2023-04-11 10:11 | A.OFFVIS_ITS ---
Intake Vital Signs 04/11/23 10:11 Height 5 ft 4 in Weight 265 lb BMI 45.5 BP 142/76 H Blood Pressure Location Lt brachial Position Sitting Respiration 20 Pulse Oximetry (%) 94 Oxygen Delivery Method Room Air Intake Visit Reasons: Medication Count/lvm Allergies cephalexin [From Keflex] Allergy (Severe, Verified 04/11/23 10:10) Itching pravastatin [Pravachol] Allergy (Severe, Verified 04/11/23 10:10) cramps bacitracin Adverse Reaction (Severe, Verified 04/11/23 10:10) eye swelling dexamethasone [TobraDex] Adverse Reaction (Severe, Verified 04/11/23 10:10) redness swelling tobramycin [TobraDex] Adverse Reaction (Severe, Verified 04/11/23 10:10) redness swelling Sulfa (Sulfonamide Antibiotics) Adverse Reaction (Intermediate, Verified 04/11/23 10:10) GI upset atorvastatin [From Lipitor] Adverse Reaction (Verified 04/11/23 10:10) Unknown Beef Containing Products Adverse Reaction (Verified 04/11/23 10:10) Unknown erythromycin base Adverse Reaction (Verified 04/11/23 10:10) Unknown Penicillins [PCN] Adverse Reaction (Verified 04/11/23 10:10) Unknown sulfacetamide [From Sulfacet-R] Adverse Reaction (Verified 04/11/23 10:10) Unknown sulfur [From Sulfacet-R] Adverse Reaction (Verified 04/11/23 10:10) Unknown topiramate [From Topamax] Adverse Reaction (Verified 04/11/23 10:10) Unknown HPI HPI Comments History of Present Illness Details Vy is a very pleasant 77-year-old female who presents to the office today, accompanied by her , for follow up chronic pain and chronic opioid therapy management. Patient is prescribed hydrocodone acetaminophen 5-300mg take 1 tablet 3 times daily. Patient arrived today with the expectation of having 54 pills, she presented 55 pills which were counted in the presence of two staff members and returned to the patient in the original prescription bottle. This demonstrates responsible attitude toward patient's opioid medications. Pain is reported today as 4/10 and last dose of pain medication was taken at 07:30 this morning. Pain is well adequately on current opioid regimen. Patient denies any recent changes or exacerbations of chronic back pain and states she is able to engage in activities of daily living with minimal interruption due to chronic pain. Patient denies side effects including somnolence, constipation, itching, dyspnea, rash, dizziness or weakness. Prior visit with Dr. Scherer: 77-year-old female who presents today fo r a medication count. 21 pills were expected and 53.5 pills we re presented. The patient is overall doing well. She has had no major health changes since her last visit. She reports that her left side is worse than right side. She is using heating pad. She states that her appointment with Dr. Elam was rescheduled due to busy schedule. She will visit Dr. Elam later this week. Past Procedures: 09/06/22: Hip Intra-articular Injection, fluoroscopy guided, Left: >50% relief. : Right glenohumeral steroid injection: >50% relief. 05/10/22: Right glenohumeral corticoster oid injection: >50% relief. 04/19/22: Intra-articular left glenohume ral injection: >50% relief. 02/22/22: Diagnostic bilateral suprascap ular nerve block - 0% relief bilaterally 02/08/22: Bilateral Ischial Bursa /left GTB- Good relief with better mobility 11/25/21: Interlaminar Midline L3-L4 MARIZA ? Good relief for leg pain, able to walk more and better. 10/26/21: Bilateral L3-L4-L5 Diagnostic M BBs ? 30% relief for 2 days. [facility]LY [facility] Medical History Arthritis of both glenohumeral joints Asthma Chronic pain syndrome Chronic restrictive lung disease Dyspnea Dyspnea Gouty arthritis Neurogenic claudication due to lumbar spinal stenosis CLEVE on CPAP Tracheitis Surgical History History of cholecystectomy History of eyelid surgery History of knee replacement Status post cervical spinal fusion Family History Father HTN (hypertension) Stroke Diabetes Mother Atrial fibrillation HTN (hypertension) Social History Alcohol intake: never Patient Tobacco Use Status: Former Tobacco user Tobacco use type: Cigarette Years Smoked: 20 years Second Hand Smoke Exposure: No Review of Systems Const All systems reviewed & are unremarkable except as noted in HPI and below Physical Exam Vital Signs: Last Vital Signs Resp 20 04/11/23 10:11 BP 142/76 H 04/11/23 10:11 Pulse Ox 94 04/11/23 10:11 Oxygen Delivery Method Room Air 04/11/23 10:11 BMI result Body Mass Index 45.5 General: awake, alert, oriented. Answers questions appropriately. Fully engaged in examination. Skin: warm, dry, intact HEENT: Normocephalic. Hearing intact. Cardiac: External chest normal in appearance. Respiratory: No cough, audible wheezing or stridor. Abdomen: without gross distension. MS: No obvious swelling or deformities. Able to transition from sit to stand unassisted. Ambulates with bilaterally normal heel strike and toe off Neurological: Oriented to person, place, time and situation. Thought process intact. Ambulates with the use of a cane. Psychiatric: Appropriate mood and affect. Good judgment and insight. Assessment & Plan Assessment & Plan (1) Chronic pain syndrome: Comment: Requiring narcotic use Code(s): G89.4 - Chronic pain syndrome Plan Massmtt was reviewed and without concerns. No obvious signs of diversion, abuse or misuse of the opioid medications. Will send in prescription for hydrocodone/acetaminophen 5-300 mg TID with an advanced date of 04/29/2023. Patient to follow-up in the office in 1 month, sooner if needed. All questions and concerns have been answered and patient agrees with the plan. Medications: Refilled hydrocodone-acetaminophen 5-300 mg Partial Fill upon patient request. 1 tab PO Q8H 30 days PRN 90 tabs 0RF pain Coding Level of Care Code Est Pt Level 4 (02549) Diagnoses Chronic pain syndrome G89.4
== END 2023-04-11 10:13 | disposition home or self-care (01) ==
PROVIDERS: PCP Internal Medicine; Visit Provider Registered Nurse Emergency
DX: G89.4 Chronic pain syndrome (principal)
CPT/HCPCS: 99214

== ENCOUNTER → 2023-04-11 10:01 | Outpatient (BNVA) | payer MEDICARE, OTHER, SELFPAY | PROVIDERS: PCP Internal Medicine; Visit Provider Registered Nurse Emergency | DX: Z51.81 Encounter for therapeutic drug level monitoring (principal); F11.20 Opioid dependence, uncomplicated; G89.4 Chronic pain syndrome | CPT/HCPCS: 99212 ==

== ENCOUNTER → 2023-05-07 13:23 | Outpatient (BNVA) | payer MEDICARE, OTHER, SELFPAY | PROVIDERS: PCP Internal Medicine; Visit Provider Internal Medicine ==

== ENCOUNTER 2023-05-09 14:23 | Outpatient (AMB) | payer MEDICARE, OTHER, SELFPAY ==
--- NOTE | 2023-05-09 14:32 | HO.SPINEOV ---
Intake Intake Visit Reasons: MRI follow up Intake Note: Mrs. Fishman is here today to discuss the results of her MRI. Client Experience Specialist Required: No Allergies cephalexin [From Keflex] Allergy (Severe, Verified 04/11/23 10:10) Itching pravastatin [Pravachol] Allergy (Severe, Verified 04/11/23 10:10) cramps bacitracin Adverse Reaction (Severe, Verified 04/11/23 10:10) eye swelling dexamethasone [TobraDex] Adverse Reaction (Severe, Verified 04/11/23 10:10) redness swelling tobramycin [TobraDex] Adverse Reaction (Severe, Verified 04/11/23 10:10) redness swelling Sulfa (Sulfonamide Antibiotics) Adverse Reaction (Intermediate, Verified 04/11/23 10:10) GI upset atorvastatin [From Lipitor] Adverse Reaction (Verified 04/11/23 10:10) Unknown Beef Containing Products Adverse Reaction (Verified 04/11/23 10:10) Unknown erythromycin base Adverse Reaction (Verified 04/11/23 10:10) Unknown Penicillins [PCN] Adverse Reaction (Verified 04/11/23 10:10) Unknown sulfacetamide [From Sulfacet-R] Adverse Reaction (Verified 04/11/23 10:10) Unknown sulfur [From Sulfacet-R] Adverse Reaction (Verified 04/11/23 10:10) Unknown topiramate [From Topamax] Adverse Reaction (Verified 04/11/23 10:10) Unknown Assessment & Plan Assessment & Plan (1) Scoliosis of lumbar region due to degenerative disease of spine in adult: Code(s): M41.56 - Other secondary scoliosis, lumbar region (2) Lumbar stenosis with neurogenic claudication: Code(s): M48.062 - Spinal stenosis, lumbar region with neurogenic claudication Plan Dear colleague, On 05/09/2023, I saw for follow-up Vy Fishamn. She suffering from incapacitating predominantly left leg pain due to a lumbar degenerative scoliosis and associated central spinal spinal stenosis and foraminal stenosis at L3-4 and L4-5. The repeated MRI confirms the significant degenerative disc disease at L3-4 and L4-5 causing the lumbar degenerative scoliosis. An x-ray confirms the MRI findings and also shows at least osteopenia. She also has a quite significant medical history. She states that her quality of life is poor due to the symptoms and therefore I am contemplating offering her surgery. The surgery would be an oblique lumbar interbody fusion L3-4 and L4-5 to correct the scoliosis and indirectly decompress her nerve structures. We went over the surgery in detail and I explained how the correction of the scoliosis would affect her nerves positively. She is aware that her bone quality may negatively affect the outcome of surgery. My main concern is her medical history. Dr. Jimenes and I thought it would be golden to have the patient discuss the risks with him. I spent 50 minutes in this consult to review imaging and discussing the possible procedure with the pros and cons Coding Level of Care Code Est Pt Level 5 (45003) Diagnoses Scoliosis of lumbar region due to degenerative disease of spine in adult M41.56 Lumbar stenosis with neurogenic claudication M48.062
== END 2023-05-09 15:43 | disposition home or self-care (01) ==
PROVIDERS: PCP Internal Medicine; Visit Provider Neurological Surgery
DX: M41.56 Other secondary scoliosis, lumbar region (principal); M48.062 Spinal stenosis, lumbar region with neurogenic claudication
CPT/HCPCS: 99215

== ENCOUNTER → 2023-05-09 14:23 | Outpatient (BNVA) | payer MEDICARE, OTHER, SELFPAY | PROVIDERS: PCP Internal Medicine; Visit Provider Neurological Surgery | DX: M48.062 Spinal stenosis, lumbar region with neurogenic claudication (principal); M41.56 Other secondary scoliosis, lumbar region | CPT/HCPCS: 99212 ==

== ENCOUNTER 2023-05-14 07:58 | Outpatient (AMB) | payer MEDICARE, OTHER, SELFPAY ==
--- NOTE | 2023-05-14 08:04 | A.OFFVIS_ITS ---
Intake Vital Signs 05/14/23 08:05 Height 5 ft 4 in Weight 265 lb BMI 45.5 BP 167/79 H Blood Pressure Location Rt radial Position Sitting Respiration 16 Pulse 96 Pulse Source Pulse Oximeter Pulse Oximetry (%) 92 Oxygen Delivery Method Room Air Intake Visit Reasons: Left shoulder injection/confirmed Allergies cephalexin [From Keflex] Allergy (Severe, Verified 05/14/23 08:08) Itching pravastatin [Pravachol] Allergy (Severe, Verified 05/14/23 08:08) cramps bacitracin Adverse Reaction (Severe, Verified 05/14/23 08:08) eye swelling dexamethasone [TobraDex] Adverse Reaction (Severe, Verified 05/14/23 08:08) redness swelling tobramycin [TobraDex] Adverse Reaction (Severe, Verified 05/14/23 08:08) redness swelling Sulfa (Sulfonamide Antibiotics) Adverse Reaction (Intermediate, Verified 05/14/23 08:08) GI upset atorvastatin [From Lipitor] Adverse Reaction (Verified 05/14/23 08:08) Unknown Beef Containing Products Adverse Reaction (Verified 05/14/23 08:08) Unknown erythromycin base Adverse Reaction (Verified 05/14/23 08:08) Unknown Penicillins [PCN] Adverse Reaction (Verified 05/14/23 08:08) Unknown sulfacetamide [From Sulfacet-R] Adverse Reaction (Verified 05/14/23 08:08) Unknown sulfur [From Sulfacet-R] Adverse Reaction (Verified 05/14/23 08:08) Unknown topiramate [From Topamax] Adverse Reaction (Verified 05/14/23 08:08) Unknown Medication List - Last Reconciled 05/14/23 by Naz Simpson LPN albuterol sulfate 90 mcg/actuation 2 puffs PO Q4H albuterol sulfate 2.5 mg (3 mL) inhalation Q4H PRN allopurinol 100 mg PO DAILY aspirin 81 mg PO DAILY atorvastatin 20 mg PO DAILY bepotastine besilate 1.5% (Bepreve) 1 drp ophthalmic (eye) DAILY PRN chlorhexidine gluconate 0.12% 15 mL buccal DAILY 30 days cholecalciferol (vitamin D3) (Vitamin D3) 25 mcg PO DAILY dulaglutide (Trulicity) mg subcut duloxetine 60 mg PO DAILY epinephrine 0.3 mL IM ONCE PRN ferrous sulfate (FeroSul) 325 mg PO DAILY fluticasone propionate 220 mcg/actuation 2 puffs inhalation BID furosemide (Lasix) 80 mg PO BID 30 days gabapentin 100 mg PO .AM gabapentin 400 mg PO BEDTIME hydrocodone-acetaminophen 5-300 mg 1 tab PO Q8H PRN 30 days insulin glargine units subcut levothyroxine 75 mcg PO DAILY meclizine 25 mg PO BID PRN mepolizumab 100 mg subcut Q4W nystatin 1 appl topical BID omeprazole 20 mg PO DAILY potassium chloride ER 10 mEq PO BID Saccharomyces boulardii (Florastor) 250 mg PO BID sitagliptin phosphate 100 mg PO DAILY tiotropium bromide 1.25 mcg/actuation inhalation trazodone 50 mg PO BEDTIME PRN valsartan (Diovan) 80 mg PO DAILY HPI Left shoulder injection/confirmed HPI Details 77-year-old female who presents today to the office for a left shoulder glenohumeral injection. Denies any recent cough, cold, infection, fever or other significant changes in medical history since last office visit. Past Procedures: 09/06/22: Hip Intra-articular Injection, fluoroscopy guided, Left: >50% relief. : Right glenohumeral steroid injection: >50% relief. 05/10/22: Right glenohumeral corticoster oid injection: >50% relief. 04/19/22: Intra-articular left glenohume ral injection: >50% relief. 02/22/22: Diagnostic bilateral suprascap ular nerve block - 0% relief bilaterally 02/08/22: Bilateral Ischial Bursa /left GTB- Good relief with better mobility 11/25/21: Interlaminar Midline L3-L4 MARIZA ? Good relief for leg pain, able to walk more and better. 10/26/21: Bilateral L3-L4-L5 Diagnostic M BBs ? 30% relief for 2 days. [facility] Medical History Arthritis of both glenohumeral joints Asthma Chronic pain syndrome Chronic restrictive lung disease Dyspnea Dyspnea Gouty arthritis Neurogenic claudication due to lumbar spinal stenosis CLEVE on CPAP Tracheitis Surgical History History of cholecystectomy History of eyelid surgery History of knee replacement Status post cervical spinal fusion Family History Father HTN (hypertension) Stroke Diabetes Mother Atrial fibrillation HTN (hypertension) Social History Alcohol intake: never Patient Tobacco Use Status: Former Tobacco user Tobacco use type: Cigarette Years Smoked: 20 years Second Hand Smoke Exposure: No Review of Systems Const All systems reviewed & are unremarkable except as noted in HPI and below Physical Exam Vital Signs: Last Vital Signs Pulse 96 05/14/23 08:05 Resp 16 05/14/23 08:05 BP 167/79 H 05/14/23 08:05 Pulse Ox 92 05/14/23 08:05 Oxygen Delivery Method Room Air 05/14/23 08:05 BMI result Body Mass Index 45.5 General: Appears afebrile. Alert and oriented. Mood and affect appropriate. Follows and participates in conversation appropriately. Respiratory effort is unlabored. Able to transition from sit to stand unassisted. Ambulates with bilaterally normal heel strike and toe off. Office Procedures Joint Injection/Drain Joint Injection/Drain Details: Left glenohumeral joint steroid injection, ultrasound guided. Primary Site: left shoulder Prep: site was prepped using aseptic technique and site was prepped using sterile technique Injected: 40 mg of, Kenalog, with 1 mL of (lidocaine 1%), with 4 mL of (Bupivacaine 0.25%) and in the joint Approach Used: posterolateral Procedure: The patient tolerated the procedure well Coding Details: An ultrasound image of the injection was taken and stored in the permanent record. - Glenohumeral with ultrasound guidance Procedure code (CPT) selection complete Results Reviewed Results Reviewed: No imaging is available for review. Assessment & Plan Assessment & Plan (1) Bilateral shoulder pain: Code(s): M25.511 - Pain in right shoulder; M25.512 - Pain in left shoulder Plan Patient is status post left glenohumeral joint steroid injection, ultrasound guided. Patient tolerated procedure well and was discharged home in stable condition with discharge instructions. All questions were answered. We will follow-up in two weeks via telephone or in clinic to assess response to therapy. A follow-up appointment was made during today's visit. Scribed for Dr. Scherer by Sae Natali, medical billing and coding specialist, on 05/14/2023. I, Dr. Scherer, have personally reviewed and agree with the information entered by the scribe. Coding Level of Care Code Procedure Only Diagnoses Bilateral shoulder pain M25.511; M25.512 CPT Codes Coding - Joint 8: 29829 - Glenohumeral with ultrasound guidance ([id number])
[2023-05-14 08:05] VITALS: BP 167/79; PULSE 96; RESP 16; O2SAT 92; BMI 45.5
== END 2023-05-14 08:49 | disposition home or self-care (01) ==
PROVIDERS: PCP Internal Medicine; Visit Provider Internal Medicine
DX: M25.512 Pain in left shoulder (principal)
CPT/HCPCS: 20611

== ENCOUNTER → 2023-05-14 07:58 | Outpatient (BNVA) | payer MEDICARE, OTHER, SELFPAY | PROVIDERS: PCP Internal Medicine; Visit Provider Internal Medicine | DX: M25.512 Pain in left shoulder (principal); M25.511 Pain in right shoulder | CPT/HCPCS: 20611; J0665; J3301 ==

== ENCOUNTER 2023-05-31 06:13 | Outpatient (REF) | payer MEDICARE, OTHER, SELFPAY ==
--- NOTE | ~2023-05-31 | FL_ITS ---
EXAMINATION: Intraoperative fluoroscopy CLINICAL INFORMATION: Right hip pain COMPARISON: Intraoperative fluoroscopic imaging of the right hip 09/06/2022 TECHNIQUE: Intraoperative fluoroscopy was provided for use by Dr. Scherer. A total of 1 image was saved to PACS. A radiologist was not present during imaging. Today's dictation is only for administrative purposes to document intraoperative fluoroscopic usage. TOTAL FLUOROSCOPIC TIME: 0.1 minutes DAP: 0.051 mGy-cm FL/FL guidance in treatment room FINDINGS~\^^ Intraoperative fluoroscopy provided for use by Dr. Scherer. Please see operative note for detailed findings.
== END 2023-05-31 06:14 | disposition home or self-care (01) ==
LOC: CF 06:13
PROVIDERS: Visit Provider Internal Medicine
DX: M25.552 Pain in left hip (principal); M25.551 Pain in right hip
CPT/HCPCS: 20610; J2795; J3301; Q9967

== ENCOUNTER 2023-05-31 10:26 | Outpatient (AMB) | payer MEDICARE, OTHER, SELFPAY ==
[2023-05-31 10:42] VITALS: BP 140/68; PULSE 97; RESP 16; O2SAT 95; BMI 44.6
--- NOTE | 2023-05-31 10:42 | A.OFFVIS_ITS ---
Intake Vital Signs 05/31/23 10:42 05/31/23 11:31 Height 5 ft 4 in 5 ft 4 in Weight 260 lb 260 lb BMI 44.6 44.6 BP 140/68 H 120/62 Blood Pressure Location Rt brachial Rt brachial Position Sitting Sitting Respiration 16 16 Pulse 97 84 Pulse Source Pulse Oximeter Pulse Oximeter Pulse Oximetry (%) 95 92 Oxygen Delivery Method Room Air Room Air Comment Pre-Op Post-Op Intake Visit Reasons: Left intraarticular hip/ pill count Intake Note: Vy also had pill count today to hydrocodone-acetaminophen, patient should have 0 tablets and presents with 1 tab which she last took today 05/31/23 at 7:30am. 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: No Accompanied by: Spouse Allergies cephalexin [From Keflex] Allergy (Severe, Verified 05/31/23 10:51) Itching pravastatin [Pravachol] Allergy (Severe, Verified 05/31/23 10:51) cramps bacitracin Adverse Reaction (Severe, Verified 05/31/23 10:51) eye swelling dexamethasone [TobraDex] Adverse Reaction (Severe, Verified 05/31/23 10:51) redness swelling tobramycin [TobraDex] Adverse Reaction (Severe, Verified 05/31/23 10:51) redness swelling Sulfa (Sulfonamide Antibiotics) Adverse Reaction (Intermediate, Verified 05/31/23 10:51) GI upset atorvastatin [From Lipitor] Adverse Reaction (Verified 05/31/23 10:51) Unknown Beef Containing Products Adverse Reaction (Verified 05/31/23 10:51) Unknown erythromycin base Adverse Reaction (Verified 05/31/23 10:51) Unknown Penicillins [PCN] Adverse Reaction (Verified 05/31/23 10:51) Unknown sulfacetamide [From Sulfacet-R] Adverse Reaction (Verified 05/31/23 10:51) Unknown sulfur [From Sulfacet-R] Adverse Reaction (Verified 05/31/23 10:51) Unknown topiramate [From Topamax] Adverse Reaction (Verified 05/31/23 10:51) Unknown HPI Left intraarticular hip/ pill count HPI Details Patient presents for scheduled procedure. Denies any recent cough, cold, infection, fever or other significant changes in medical history since last office visit. FORMERLY [facility] Medical History Arthritis of both glenohumeral joints Asthma Chronic pain syndrome Chronic restrictive lung disease Dyspnea Dyspnea Gouty arthritis Neurogenic claudication due to lumbar spinal stenosis CLEVE on CPAP Tracheitis Surgical History History of cholecystectomy History of eyelid surgery History of knee replacement Status post cervical spinal fusion Family History Father HTN (hypertension) Stroke Diabetes Mother Atrial fibrillation HTN (hypertension) Social History Alcohol intake: never Patient Tobacco Use Status: Former Tobacco user Tobacco use type: Cigarette Years Smoked: 20 years Second Hand Smoke Exposure: No Physical Exam Vital Signs: Last Vital Signs Pulse 97 05/31/23 10:42 Resp 16 05/31/23 10:42 BP 140/68 H 05/31/23 10:42 Pulse Ox 95 05/31/23 10:42 Oxygen Delivery Method Room Air 05/31/23 10:42 BMI result Body Mass Index 44.6 Office Procedures Joint Injection/Drain Joint Injection/Drain Details: Hip Intra-articular Injection, fluoroscopy guided, Left After informed written consent was obtained, the patient was placed in the lateral position. Pre-procedure oxygen saturation, heart rate, and blood pressure were recorded. The skin was prepped with Chloroprep, and draped in a sterile fashion. With the use of fluroscopy the hip joint was identified. With a 25-gauge 1.5 hypodermic needle 0.75% lidocaine was injected subcutaneously over the entry site. A 22-gauge 3.5 spinal needle was then advanced toward the junction of the joint capsule and femoral neck. Once in position, and after negative aspiration, 0.5mL of Omnipaque was injected outlining the joint capsule followed by injection of 40mg Kenalog mixed with 0.5% lidocaine (3mL total). There was no evidence of paresthesias throughout needle placement. The stylet was replaced and then the needle was withdrawn. The patient tolerated the procedure well and there was no evidence of procedural complications. EBL: <1cc Coding 42250 - Glenohumeral/Tronchanteric Bursa/Intraarticular Procedure code (CPT) selection complete Assessment & Plan Assessment & Plan (1) Bilateral hip pain: Code(s): M25.551 - Pain in right hip; M25.552 - Pain in left hip Plan Patient is status post left hip intra-articular steroid injection. Patient tolerated procedure well and was discharged home in stable condition with discharge instructions. All questions were answered. We will follow-up via telephone or in clinic to assess response to therapy. A follow-up appointment was made during today's visit. Orders: Orders FL guidance in treatment room Today M25.551 - Pain in right hip, M25.552 - Pain in left hip Coding Level of Care Code Procedure Only Diagnoses Bilateral hip pain M25.551; M25.552 CPT Codes Coding - Joint 7: 38608 - Glenohumeral/Tronchanteric Bursa/Intraarticular ([id number])
[2023-05-31 11:31] VITALS: BP 120/62; PULSE 84; RESP 16; O2SAT 92; BMI 44.6
== END 2023-05-31 11:25 | disposition home or self-care (01) ==
LOC: HO.PMCPRC 10:26
PROVIDERS: PCP Internal Medicine; Visit Provider Internal Medicine
DX: M25.551 Pain in right hip (principal); M25.552 Pain in left hip
CPT/HCPCS: 20610; 77002

== ENCOUNTER 2023-06-29 08:30 | Outpatient (AMB) | payer MEDICARE, OTHER, SELFPAY ==
--- NOTE | 2023-06-29 08:31 | A.OFFVIS_ITS ---
Intake Vital Signs 06/29/23 08:37 Height 5 ft 4 in Weight 260 lb BMI 44.6 BP 141/66 H Blood Pressure Location Lt radial Position Sitting Respiration 16 Pulse 119 H Pulse Source Pulse Oximeter Intake Visit Reasons: s/p shoulder inj/ PILL COUNT Allergies cephalexin [From Keflex] Allergy (Severe, Verified 06/29/23 08:42) Itching pravastatin [Pravachol] Allergy (Severe, Verified 06/29/23 08:42) cramps bacitracin Adverse Reaction (Severe, Verified 06/29/23 08:42) eye swelling dexamethasone [TobraDex] Adverse Reaction (Severe, Verified 06/29/23 08:42) redness swelling tobramycin [TobraDex] Adverse Reaction (Severe, Verified 06/29/23 08:42) redness swelling Sulfa (Sulfonamide Antibiotics) Adverse Reaction (Intermediate, Verified 06/29/23 08:42) GI upset atorvastatin [From Lipitor] Adverse Reaction (Verified 06/29/23 08:42) Unknown Beef Containing Products Adverse Reaction (Verified 06/29/23 08:42) Unknown erythromycin base Adverse Reaction (Verified 06/29/23 08:42) Unknown Penicillins [PCN] Adverse Reaction (Verified 06/29/23 08:42) Unknown sulfacetamide [From Sulfacet-R] Adverse Reaction (Verified 06/29/23 08:42) Unknown sulfur [From Sulfacet-R] Adverse Reaction (Verified 06/29/23 08:42) Unknown topiramate [From Topamax] Adverse Reaction (Verified 06/29/23 08:42) Unknown Medication List - Last Reconciled 06/29/23 by Naz Simpson LPN albuterol sulfate 90 mcg/actuation 2 puffs PO Q4H albuterol sulfate 2.5 mg (3 mL) inhalation Q4H PRN allopurinol 100 mg PO DAILY aspirin 81 mg PO DAILY atorvastatin 20 mg PO DAILY bepotastine besilate 1.5% (Bepreve) 1 drp ophthalmic (eye) DAILY PRN chlorhexidine gluconate 0.12% 15 mL buccal DAILY 30 days cholecalciferol (vitamin D3) (Vitamin D3) 25 mcg PO DAILY dulaglutide (Trulicity) mg subcut duloxetine 60 mg PO DAILY epinephrine 0.3 mL IM ONCE PRN ferrous sulfate (FeroSul) 325 mg PO DAILY fluticasone propionate 220 mcg/actuation 2 puffs inhalation BID furosemide (Lasix) 80 mg PO BID 30 days gabapentin 100 mg PO .AM gabapentin 400 mg PO BEDTIME hydrocodone-acetaminophen 5-300 mg 1 tab PO Q8H PRN 30 days insulin glargine units subcut levothyroxine 75 mcg PO DAILY meclizine 25 mg PO BID PRN mepolizumab 100 mg subcut Q4W nystatin 1 appl topical BID omeprazole 20 mg PO DAILY potassium chloride ER 10 mEq PO BID Saccharomyces boulardii (Florastor) 250 mg PO BID sitagliptin phosphate 100 mg PO DAILY tiotropium bromide 1.25 mcg/actuation inhalation trazodone 50 mg PO BEDTIME PRN valsartan (Diovan) 80 mg PO DAILY HPI s/p shoulder inj/ PILL COUNT HPI Details 77-year-old female who presents today to the office for a status post shoulder injection and pill count. 90 pills were expected and 90 pills were presented. She also has 8 1/2 pills leftover from the last script. The patient reports 70 % relief following the procedure. She had significant improvement from the procedure. She reports shooting pain down to her leg on the left side. She reports worsening of the arthritis in her hands. She reports intermittent pain in her shoulder when she sits in her recliner. She received her new refill yesterday. She had a cortisone injection from her time recorder recently. She reports mild hip pain that is starting to get worse. Past Procedures: 05/31/23: Hip Intra-articular Injection, fluoroscopy guided, Left: 70 % relief. 05/14/23: Left glenohumeral joint steroi d injection, ultrasound guided: 70 % relief. 09/06/22: Hip Intra-articular Injection, fluoroscopy guided, Left: >50% relief. : Right glenohumeral steroid injection: >50% relief. 05/10/22: Right glenohumeral corticoster oid injection: >50% relief. 04/19/22: Intra-articular left glenohume ral injection: >50% relief. 02/22/22: Diagnostic bilateral suprascap ular nerve block - 0% relief bilaterally 02/08/22: Bilateral Ischial Bursa /left GTB- Good relief with better mobility 11/25/21: Interlaminar Midline L3-L4 MARIZA ? Good relief for leg pain, able to walk more and better. 10/26/21: Bilateral L3-L4-L5 Diagnostic M BBs ? 30% relief for 2 days. FORMERLY [facility] Medical History Arthritis of both glenohumeral joints Asthma Chronic pain syndrome Chronic restrictive lung disease Dyspnea Dyspnea Gouty arthritis Neurogenic claudication due to lumbar spinal stenosis CLEVE on CPAP Tracheitis Surgical History History of cholecystectomy History of eyelid surgery History of knee replacement Status post cervical spinal fusion Family History Father HTN (hypertension) Stroke Diabetes Mother Atrial fibrillation HTN (hypertension) Social History Alcohol intake: never Patient Tobacco Use Status: Former Tobacco user Tobacco use type: Cigarette Years Smoked: 20 years Second Hand Smoke Exposure: No Review of Systems Const All systems reviewed & are unremarkable except as noted in HPI and below Physical Exam Vital Signs: Last Vital Signs Pulse 119 H 06/29/23 08:37 Resp 16 06/29/23 08:37 BP 141/66 H 06/29/23 08:37 BMI result Body Mass Index 44.6 General: Appears afebrile. Alert and oriented. Mood and affect appropriate. Follows and participates in conversation appropriately. Respiratory effort is unlabored. Able to transition from sit to stand unassisted. Ambulates with bilaterally normal heel strike and toe off. Results Reviewed Results Reviewed: No imaging is available for review. Assessment & Plan Assessment & Plan (1) Bilateral hip pain: Code(s): M25.551 - Pain in right hip; M25.552 - Pain in left hip (2) Bilateral shoulder pain: Code(s): M25.511 - Pain in right shoulder; M25.512 - Pain in left shoulder (3) Chronic pain syndrome: Comment: Requiring narcotic use Code(s): G89.4 - Chronic pain syndrome Plan 90 pills were expected and 90 pills were presented. A refill of Vicodin was provided for the patient starting 06/29/23. Pill count and Mass PAT were consistent. The patient will follow up in four weeks for pill count on the nursing schedule. Scribed for Dr. Scherer by Sae Hurst, medical billing associate, on 06/29/2023. I, Dr. Scherer, have personally reviewed and agree with the information entered by the scribe. Medications: Refilled hydrocodone-acetaminophen 5-300 mg Partial Fill upon patient request. 1 tab PO Q8H PRN 90 tabs 0RF pain 30 days Coding Level of Care Code Est Pt Level 3 (89824) Diagnoses Bilateral hip pain M25.551; M25.552 Bilateral shoulder pain M25.511; M25.512 Chronic pain syndrome G89.4
[2023-06-29 08:37] VITALS: BP 141/66; PULSE 119; RESP 16; BMI 44.6
== END 2023-06-29 08:46 | disposition home or self-care (01) ==
PROVIDERS: PCP Internal Medicine; Visit Provider Internal Medicine
DX: G89.4 Chronic pain syndrome (principal); M25.551 Pain in right hip; M25.552 Pain in left hip; M25.511 Pain in right shoulder; M25.512 Pain in left shoulder
CPT/HCPCS: 99213

== ENCOUNTER → 2023-06-29 08:30 | Outpatient (BNVA) | payer MEDICARE, OTHER, SELFPAY | PROVIDERS: PCP Internal Medicine; Visit Provider Internal Medicine | DX: Z51.81 Encounter for therapeutic drug level monitoring (principal); F11.20 Opioid dependence, uncomplicated; M25.551 Pain in right hip; M25.552 Pain in left hip; M25.511 Pain in right shoulder; M25.512 Pain in left shoulder; G89.4 Chronic pain syndrome | CPT/HCPCS: 99212 ==

== ENCOUNTER 2023-07-23 10:03 | Outpatient (REF) | payer MEDICARE, OTHER, SELFPAY ==
[2023-07-23 10:43] LABS: MANUAL DIFF FLAG NO
[2023-07-23 12:00] LABS: Basophils Absolute Auto 0.1 X10*3/uL (0.0-0.2); Basophils Percent Auto 0.6 % (0-2); Eosinophils Absolute Auto 0.2 X10*3/uL (0.0-0.4); Eosinophils Percent Auto 1.3 % (0-4); Hematocrit 40.9 % (37.0-47.0); Hemoglobin 12.8 g/dl (12.0-16.0); Imm Gran Abs Auto 0.06 X10*3/uL (0.00-0.03); Imm Gran Pct Auto 0.5 % (0.0-0.4); Lymphocytes Absolute Auto 2.7 X10*3/uL (1.2-4.9); Lymphocytes Percent Auto 21.8 % (20-40); Mean Corpuscular HGB Conc 31.3 g/dl (31.0-35.0); Mean Corpuscular Hemoglobin 32.1 pg (27.0-33.0); Mean Corpuscular Volume 102.5 fL (80.0-98.0); Monocytes Absolute Auto 0.9 X10*3/uL (0.1-1.2); Monocytes Percent Auto 7.6 % (2-11); Neutrophils Absolute Auto 8.4 x10*3/uL (2.0-8.3); Neutrophils Percent Auto 68.2 % (45-73); Platelet Count 393 X10*3/uL (160-400); Red Blood Count 3.99 X10*6/uL (4.20-5.50); White Blood Count 12.2 X10*3/uL (4.8-10.8)
[2023-07-23 12:21] LABS: Appearance Urine Cloudy; Color Urine Dark Yellow; Glucose Urine UA Negative (Negative); Leukocyte Esterase Urine Small (1+) (Negative); Nitrite Urine Negative (Negative); UMIC TRIGGER UA YES; Urine Blood Negative (Negative); Urine Ketones Trace mg/dL (Negative); Urine Protein Trace mg/dL (Neg-Trace)
[2023-07-23 12:42] LABS: Bacteria Urine 3+ (None Seen); RBC Urine 0-2 /HPF (0-2); Squamous Epithelial Cell Urine >20 /HPF (0-2)
[2023-07-23 12:54] LABS: Creatinine Urine 193.37 mg/dL; Microalbum/Creatinine Ratio Ur 43.4 ug/mg cr (<30); Protein/Creatinine Ratio, Ur 0.14 (<0.2); Total Protein Urine Random 28 mg/dL (<12)
[2023-07-23 13:04] LABS: Albumin Level 3.7 g/dL (3.5-5.0); Anion Gap 19 (12-20); Blood Urea Nitrogen 18 mg/dL (9-16); Calcium 9.6 mg/dL (8.4-10.2); Carbon Dioxide 26 mmol/L (22-29); Chloride 99 mmol/L (96-108); Estimated Glomerular Filt Rate 37; Phosphorus 3.7 mg/dL (2.7-4.5); Potassium 3.9 mmol/L (3.3-5.1); Sodium 140 mmol/L (135-145)
[2023-07-23 13:26] LABS: Parathyroid Hormone Intact 214.7 pg/mL (8.7-77.1)
== END 2023-07-23 10:04 | disposition home or self-care (01) ==
LOC: HO.LAB 10:03
PROVIDERS: Visit Provider Internal Medicine Nephrology
DX: E11.22 Type 2 diabetes mellitus with diabetic chronic kidney disease (principal); N18.31 Chronic kidney disease, stage 3a
CPT/HCPCS: 36415; 80051; 81001; 82040; 82043; 82306; 82310; 82565; 82570; 83735; 83970; 84100; 84156; 84520; 85025

== ENCOUNTER 2023-07-30 11:09 | Outpatient (AMB) | payer MEDICARE, OTHER, SELFPAY ==
[2023-07-30 11:24] VITALS: BP 125/58; PULSE 107; RESP 16; O2SAT 91; BMI 44.6
--- NOTE | 2023-07-30 11:24 | MHC.OFFVIS ---
Vital Signs 07/30/23 11:24 Height 5 ft 4 in Weight 260 lb BMI 44.6 BP 125/58 L Blood Pressure Location Lt radial Position Sitting Respiration 16 Pulse 107 H Pulse Source Pulse Oximeter Pulse Oximetry (%) 91 L Oxygen Delivery Method Room Air Intake Visit Reasons: PILL COUNT Intake Note: Pt states she last took vicodin 07/30/23 @ 7:30am Allergies cephalexin [From Keflex] Allergy (Severe, Verified 07/30/23 11:28) Itching pravastatin [Pravachol] Allergy (Severe, Verified 07/30/23 11:28) cramps bacitracin Adverse Reaction (Severe, Verified 07/30/23 11:28) eye swelling dexamethasone [TobraDex] Adverse Reaction (Severe, Verified 07/30/23 11:28) redness swelling tobramycin [TobraDex] Adverse Reaction (Severe, Verified 07/30/23 11:28) redness swelling Sulfa (Sulfonamide Antibiotics) Adverse Reaction (Intermediate, Verified 07/30/23 11:28) GI upset atorvastatin [From Lipitor] Adverse Reaction (Verified 07/30/23 11:28) Unknown Beef Containing Products Adverse Reaction (Verified 07/30/23 11:28) Unknown erythromycin base Adverse Reaction (Verified 07/30/23 11:28) Unknown Penicillins [PCN] Adverse Reaction (Verified 07/30/23 11:28) Unknown sulfacetamide [From Sulfacet-R] Adverse Reaction (Verified 07/30/23 11:28) Unknown sulfur [From Sulfacet-R] Adverse Reaction (Verified 07/30/23 11:28) Unknown topiramate [From Topamax] Adverse Reaction (Verified 07/30/23 11:28) Unknown Medication List - Last Reconciled 07/30/23 by Naz Simpson LPN albuterol sulfate 90 mcg/actuation 2 puffs PO Q4H albuterol sulfate 2.5 mg (3 mL) inhalation Q4H PRN allopurinol 100 mg PO DAILY aspirin 81 mg PO DAILY atorvastatin 20 mg PO DAILY bepotastine besilate 1.5% (Bepreve) 1 drp ophthalmic (eye) DAILY PRN chlorhexidine gluconate 0.12% 15 mL buccal DAILY 30 days cholecalciferol (vitamin D3) (Vitamin D3) 25 mcg PO DAILY dulaglutide (Trulicity) mg subcut duloxetine 60 mg PO DAILY epinephrine 0.3 mL IM ONCE PRN ferrous sulfate (FeroSul) 325 mg PO DAILY fluticasone propionate 220 mcg/actuation 2 puffs inhalation BID furosemide (Lasix) 80 mg PO BID 30 days gabapentin 100 mg PO .AM gabapentin 400 mg PO BEDTIME hydrocodone-acetaminophen 5-300 mg 1 tab PO Q8H PRN 30 days insulin glargine units subcut levothyroxine 75 mcg PO DAILY meclizine 25 mg PO BID PRN mepolizumab 100 mg subcut Q4W nystatin 1 appl topical BID omeprazole 20 mg PO DAILY potassium chloride ER 10 mEq PO BID Saccharomyces boulardii (Florastor) 250 mg PO BID sitagliptin phosphate 100 mg PO DAILY tiotropium bromide 1.25 mcg/actuation inhalation trazodone 50 mg PO BEDTIME PRN valsartan (Diovan) 80 mg PO DAILY HPI HPI PILL COUNT: Details: 78-year-old female who presents today to the office for a pill count. No pills were expected and 16 pills were presented. She reports worsening back pain, which is bothersome. The patient reports shoulder pain that radiates down to her bra line. She is currently on aspirin (81 mg) for a cardiac issue. She is interested in back injections for relief of back pain that radiates down her legs. She also reports nausea, diarrhea, and fatigue. She has lost about 15 lbs. recently. Past Procedures: 05/31/23: Hip Intra-articular Injection, fluoroscopy guided, Left: 70 % relief. 05/14/23: Left glenohumeral joint steroid injection, ultrasound guided: 70 % relief. 09/06/22: Hip Intra-articular Injection, fluoroscopy guided, Left: >50% relief. : Right glenohumeral steroid injection: >50% relief. 05/10/22: Right glenohumeral corticosteroid injection: >50% relief. 04/19/22: Intra-articular left glenohumeral injection: >50% relief. 02/22/22: Diagnostic bilateral suprascapular nerve block - 0% relief bilaterally 02/08/22: Bilateral Ischial Bursa /left GTB- Good relief with better mobility 11/25/21: Interlaminar Midline L3-L4 MARIZA ? Good relief for leg pain, able to walk more and better. 10/26/21: Bilateral L3-L4-L5 Diagnostic MBBs ? 30% relief for 2 days. FORMERLY [facility], [facility] Medical History Arthritis of both glenohumeral joints Asthma Chronic pain syndrome Chronic restrictive lung disease Dyspnea Dyspnea Gouty arthritis Neurogenic claudication due to lumbar spinal stenosis CLEVE on CPAP Tracheitis Surgical History History of cholecystectomy History of eyelid surgery History of knee replacement Status post cervical spinal fusion Family History Father HTN (hypertension) Stroke Diabetes Mother Atrial fibrillation HTN (hypertension) Social History Alcohol intake: never Patient Tobacco Use Status: Former Tobacco user Tobacco use type: Cigarette Years Smoked: 20 years Second Hand Smoke Exposure: No Review of Systems Const All systems reviewed & are unremarkable except as noted in HPI and below Physical Exam Vital Signs: Last Vital Signs Pulse 107 H 07/30/23 11:24 Resp 16 07/30/23 11:24 BP 125/58 L 07/30/23 11:24 Pulse Ox 91 L 07/30/23 11:24 Oxygen Delivery Method Room Air 07/30/23 11:24 BMI result Body Mass Index 44.6 General: Appears afebrile. Alert and oriented. Mood and affect appropriate. Follows and participates in conversation appropriately. Respiratory effort is unlabored. Able to transition from sit to stand unassisted. Ambulates with bilaterally normal heel strike and toe off. Results Reviewed Results Reviewed: No imaging is available for review. Assessment & Plan Assessment & Plan (1) Lumbar stenosis with neurogenic claudication: Code(s): M48.062 - Spinal stenosis, lumbar region with neurogenic claudication Category: Medical (2) Lumbar radiculopathy: Code(s): M54.16 - Radiculopathy, lumbar region Category: Medical Plan We will schedule her for an interlaminar midline L3-L4 MARIZA since it seemed to provide her with more than 50% relief for a while with respect to her radiating low back symptoms are now back. Discussed the risks and benefits of the procedure with the patient in detail. All questions were answered. The patient is on board with the plan. Justification for interventional therapy: ? Patient with average pain > 6/10 ? Patient has exhausted conservative therapy ? Patient unable to tolerate physical therapy due to pain ? Previous injection provided >50% relief x > 2 month. . Patient has a good understanding of their pain condition and has appropriate mental and social support Scribed for Dr. Scherer by Sae Hurst, medical officer psychiatry, on 07/30/2023. I, Dr. Scherer, have personally reviewed and agree with the information entered by the scribe.
== END 2023-07-30 12:13 | disposition home or self-care (01) ==
PROVIDERS: PCP Internal Medicine; Visit Provider Internal Medicine
DX: M48.062 Spinal stenosis, lumbar region with neurogenic claudication (principal); M54.16 Radiculopathy, lumbar region
CPT/HCPCS: 99213

== ENCOUNTER → 2023-07-30 11:09 | Outpatient (BNVA) | payer MEDICARE, OTHER, SELFPAY | PROVIDERS: PCP Internal Medicine; Visit Provider Internal Medicine | DX: M48.062 Spinal stenosis, lumbar region with neurogenic claudication (principal); M54.16 Radiculopathy, lumbar region | CPT/HCPCS: 99212 ==

== ENCOUNTER 2023-08-20 11:01 | Outpatient (REF) | payer MEDICARE, OTHER, SELFPAY ==
[2023-08-20 11:35] LABS: Estimated Average Glucose 148 mg/dL; Hemoglobin A1c % 6.8 % (<6.0)
[2023-08-20 11:38] LABS: Alanine Aminotransferase 20 U/L (0-31); Albumin Level 3.8 g/dL (3.5-5.0); Alkaline Phosphatase 76 U/L (39-117); Aspartate Amino Transferase 29 U/L (5-31); Bilirubin Direct 0.2 mg/dL (0.0-0.5); Bilirubin Total 0.4 mg/dL (0.0-1.0); Cholesterol 158 mg/dL (<200); Glucose Fasting 146 mg/dL (60-99); HDL Cholesterol 47 mg/dL (>40); LDL Cholesterol Calculated 81 mg/dL (<100); Total Protein 7.6 g/dL (6.5-8.0); Triglycerides 151 mg/dL (<150)
[2023-08-20 11:51] LABS: Reflex LDLD? No
== END 2023-08-20 11:02 | disposition home or self-care (01) ==
LOC: HO.LNP 11:01
PROVIDERS: Visit Provider Internal Medicine
DX: E11.9 Type 2 diabetes mellitus without complications (principal); E78.00 Pure hypercholesterolemia, unspecified
CPT/HCPCS: 80061; 80076; 82947; 83036

== ENCOUNTER 2023-08-23 06:10 | Outpatient (REF) | payer MEDICARE, OTHER, SELFPAY ==
--- NOTE | ~2023-08-23 | FL_ITS ---
EXAMINATION: XR FLUOROSCOPY WITH IMAGES CLINICAL INFORMATION: Lumbar injection, spinal stenosis, neurogenic claudication. COMPARISON: None available. TECHNIQUE: Fluoroscopy Supervised By: Dr. Scherer. Fluoroscopy Time: 0.8 minutes Cumulative Dose: 25.5 mGy-cm DAP: 0.120 Gy-cm2 Images: 3. FINDINGS: Fluoroscopic imaging provided for procedure supervised by Dr. Scherer. Needle/wire overlies the spine.Please refer to operative report for more detailed evaluation. FL/FL guidance in treatment room IMPRESSION: Fluoroscopic imaging provided for procedure. Please refer to operative report for more detailed evaluation.
== END 2023-08-23 06:11 | disposition home or self-care (01) ==
LOC: CF 06:10
PROVIDERS: Visit Provider Internal Medicine
DX: M48.062 Spinal stenosis, lumbar region with neurogenic claudication (principal); M54.16 Radiculopathy, lumbar region
CPT/HCPCS: 62323; J3301; Q9967

== ENCOUNTER 2023-08-23 08:20 | Outpatient (AMB) | payer MEDICARE, OTHER, SELFPAY ==
[2023-08-23 08:34] VITALS: BP 124/68; PULSE 89; RESP 14; O2SAT 95; BMI 44.6
--- NOTE | 2023-08-23 08:34 | A.OFFVIS_ITS ---
Vital Signs 08/23/23 08:34 08/23/23 09:47 Height 5 ft 4 in 5 ft 4 in Weight 260 lb 260 lb BMI 44.6 44.6 BP 124/68 132/88 Blood Pressure Location Lt brachial Lt brachial Position Sitting Sitting Respiration 14 14 Pulse 89 100 Pulse Source Pulse Oximeter Pulse Oximeter Pulse Oximetry (%) 95 95 Oxygen Delivery Method Room Air Room Air Comment pre-op post-op Intake Visit Reasons: interlaminar midline L3-L4 MARIZA + pill count Allergies cephalexin [From Keflex] Allergy (Severe, Verified 08/23/23 08:36) Itching pravastatin [Pravachol] Allergy (Severe, Verified 08/23/23 08:36) cramps bacitracin Adverse Reaction (Severe, Verified 08/23/23 08:36) eye swelling dexamethasone [TobraDex] Adverse Reaction (Severe, Verified 08/23/23 08:36) redness swelling tobramycin [TobraDex] Adverse Reaction (Severe, Verified 08/23/23 08:36) redness swelling Sulfa (Sulfonamide Antibiotics) Adverse Reaction (Intermediate, Verified 08/23/23 08:36) GI upset atorvastatin [From Lipitor] Adverse Reaction (Verified 08/23/23 08:36) Unknown Beef Containing Products Adverse Reaction (Verified 08/23/23 08:36) Unknown erythromycin base Adverse Reaction (Verified 08/23/23 08:36) Unknown Penicillins [PCN] Adverse Reaction (Verified 08/23/23 08:36) Unknown sulfacetamide [From Sulfacet-R] Adverse Reaction (Verified 08/23/23 08:36) Unknown sulfur [From Sulfacet-R] Adverse Reaction (Verified 08/23/23 08:36) Unknown topiramate [From Topamax] Adverse Reaction (Verified 08/23/23 08:36) Unknown HPI HPI interlaminar midline L3-L4 MARIZA + pill count: Details: Patient presents for scheduled procedure. Denies any recent cough, cold, infection, fever or other significant changes in medical history since last office visit. COUNTS INCLUDE 234 BEDS AT THE [facility] Medical History Arthritis of both glenohumeral joints Asthma Chronic pain syndrome Chronic restrictive lung disease Dyspnea Dyspnea Gouty arthritis Neurogenic claudication due to lumbar spinal stenosis CLEVE on CPAP Tracheitis Surgical History History of cholecystectomy History of eyelid surgery History of knee replacement Status post cervical spinal fusion Family History Father HTN (hypertension) Stroke Diabetes Mother Atrial fibrillation HTN (hypertension) Social History Alcohol intake: never Patient Tobacco Use Status: Former Tobacco user Tobacco use type: Cigarette Years Smoked: 20 years Second Hand Smoke Exposure: No Physical Exam Vital Signs: Last Vital Signs Pulse 89 08/23/23 08:34 Resp 14 08/23/23 08:34 BP 124/68 08/23/23 08:34 Pulse Ox 95 08/23/23 08:34 Oxygen Delivery Method Room Air 08/23/23 08:34 BMI result Body Mass Index 44.6 Office Procedures Joint Injection/Drain Joint Injection/Drain Details: Interlaminar epidural steroid injection, L3/4, Left parasaggital After obtaining written consent, pre-procedure blood pressure and heart rate were stable and recorded in the nursing record. The patient was placed in the prone position. The lumbar area was widely prepped with chloraprep and draped in sterile fashion. Fluoroscopic guidance was used to identify the desired interlaminar space and for needle placement. Subcutaneous 0.5% lidocaine was used to anesthetize the skin overlying the target. A 17-gauge Tuohy needle was advanced to the epidural space using loss of resistance to saline technique under fluoroscopic AP and contralateral oblique views. Upon 1st placement, venous blood was aspirated through the needle so the needle was removed and replaced, and an advanced once again to the epidural space using loss of resistance to saline technique under fluoroscopic AP and contralateral oblique views. This time, there was no evidence of heme or CSF and no paresthesias were elicited with needle placement. Confirmation of epidural needle placement was performed with 5 cc of omnipaque 180. Next 3 ml 0.5% lidocaine mixed with 40 mg of triamcinolone was administered epidurally with no pain elicited on injection. The needle tract tubing was then cleared with 1 ml of 0.5% lidocaine. The needle was removed, skin cleansed and a sterile bandage was applied. The patient tolerated the procedure well and no complications were encountered. Following the procedure the patient's vital signs were stable. The patient was discharged home in good condition with post-procedural instructions. Time Out: Immediately prior to the procedure, the following was verbally confirmed that there is a signed consent form and that the correct patient, planned procedure, site and side are consistent with documentation and that necessary equipment and/or blood products are available prior to the start of the case. Complications: none EBL: <5 cc Coding 51751 - Caudal/Lumbar Epidural/Interlaminar with fluoroscopy Procedure code (CPT) selection complete Assessment & Plan Assessment & Plan (1) Lumbar radiculopathy: Code(s): M54.16 - Radiculopathy, lumbar region Category: Medical Plan Patient is status post left parasagittal interlaminar L3-4 MARIZA. Patient tolerated procedure well and was discharged home in stable condition with discharge instructions. All questions were answered. We will follow-up via telephone or in clinic to assess response to therapy. A follow-up appointment was made during today's visit. Orders: Orders FL guidance in treatment room Today M48.062 - Spinal stenosis, lumbar region with neurogenic claudication Coding Level of Care Code Procedure Only Diagnoses Lumbar radiculopathy M54.16 CPT Codes Coding - Joint 11: 54194 - Caudal/Lumbar Epidural/Interlaminar with fluoroscopy ([id number])
[2023-08-23 09:47] VITALS: BP 132/88; PULSE 100; RESP 14; O2SAT 95; BMI 44.6
== END 2023-08-23 09:42 | disposition home or self-care (01) ==
LOC: HO.PMCPRC 08:20
PROVIDERS: PCP Internal Medicine; Visit Provider Internal Medicine
DX: M54.16 Radiculopathy, lumbar region (principal)
CPT/HCPCS: 62323

== ENCOUNTER 2023-09-21 09:12 | Outpatient (AMB) | payer MEDICARE, OTHER, SELFPAY ==
--- NOTE | 2023-09-21 09:13 | MHC.OFFVIS ---
Vital Signs 09/21/23 09:15 Height 5 ft 4 in Weight 260 lb BMI 44.6 BP 178/77 H Blood Pressure Location Lt radial Position Sitting Respiration 16 Pulse 101 H Pulse Source Pulse Oximeter Pulse Oximetry (%) 92 Oxygen Delivery Method Room Air Intake Visit Reasons: s/p L3-L4 MARIZA + pill count Intake Note: Pt states she last took vicodin 09/21/23 @ 6:45am Allergies cephalexin [From Keflex] Allergy (Severe, Verified 09/21/23 09:17) Itching pravastatin [Pravachol] Allergy (Severe, Verified 09/21/23 09:17) cramps bacitracin Adverse Reaction (Severe, Verified 09/21/23 09:17) eye swelling dexamethasone [TobraDex] Adverse Reaction (Severe, Verified 09/21/23 09:17) redness swelling tobramycin [TobraDex] Adverse Reaction (Severe, Verified 09/21/23 09:17) redness swelling Sulfa (Sulfonamide Antibiotics) Adverse Reaction (Intermediate, Verified 09/21/23 09:17) GI upset atorvastatin [From Lipitor] Adverse Reaction (Verified 09/21/23 09:17) Unknown Beef Containing Products Adverse Reaction (Verified 09/21/23 09:17) Unknown erythromycin base Adverse Reaction (Verified 09/21/23 09:17) Unknown Penicillins [PCN] Adverse Reaction (Verified 09/21/23 09:17) Unknown sulfacetamide [From Sulfacet-R] Adverse Reaction (Verified 09/21/23 09:17) Unknown sulfur [From Sulfacet-R] Adverse Reaction (Verified 09/21/23 09:17) Unknown topiramate [From Topamax] Adverse Reaction (Verified 09/21/23 09:17) Unknown Medication List - Last Reconciled 09/21/23 by Naz Simpson LPN albuterol sulfate 90 mcg/actuation 2 puffs PO Q4H albuterol sulfate 2.5 mg (3 mL) inhalation Q4H PRN allopurinol 100 mg PO DAILY aspirin 81 mg PO DAILY atorvastatin 20 mg PO DAILY bepotastine besilate 1.5% (Bepreve) 1 drp ophthalmic (eye) DAILY PRN chlorhexidine gluconate 0.12% 15 mL buccal DAILY 30 days cholecalciferol (vitamin D3) (Vitamin D3) 25 mcg PO DAILY duloxetine 60 mg PO DAILY epinephrine 0.3 mL IM ONCE PRN ferrous sulfate (FeroSul) 325 mg PO DAILY fluticasone propionate 220 mcg/actuation 2 puffs inhalation BID furosemide (Lasix) 80 mg PO BID 30 days gabapentin 100 mg PO .AM gabapentin 400 mg PO BEDTIME hydrocodone-acetaminophen 5-300 mg 1 tab PO Q8H PRN 30 days insulin glargine units subcut levothyroxine 75 mcg PO DAILY meclizine 25 mg PO BID PRN mepolizumab 100 mg subcut Q4W nystatin 1 appl topical BID omeprazole 20 mg PO DAILY potassium chloride ER 10 mEq PO BID Saccharomyces boulardii (Florastor) 250 mg PO BID sitagliptin phosphate 100 mg PO DAILY tiotropium bromide 1.25 mcg/actuation inhalation tirzepatide (Mounjaro) 2.5 mg subcut QWEEK trazodone 50 mg PO BEDTIME PRN valsartan (Diovan) 80 mg PO DAILY HPI HPI s/p L3-L4 MARIZA + pill count: Details: 78-year-old female who presents today to the office for a status post L3-L4 MARIZA and pill count. 36?pills were expected and 37.5?pills were presented. The patient reports 50 % relief following the procedure for three days. She reports return of pain in her lower back and pelvic area. She reports radiating pain upward through her spine to the base of the skull. She has difficulty walking or standing. Sitting down also reproduces pain. She saw couple of surgeons in the past but she is not an ideal candidate for surgery due to osteoporosis. She is not on any blood thinners. She has been taking Tylenol B.I.D and narcotic medication at bedtime. Past procedures 08/23/23: Interlaminar epidural steroid injection, L3/4, Left parasaggital: 40-50% relief for 3 days. 05/31/23: Hip Intra-articular Injection, fluoroscopy guided, Left: 70% relief. 05/14/23: Left glenohumeral joint steroid injection, ultrasound guided: 70% relief. 09/06/22: Hip Intra-articular Injection, fluoroscopy guided, Left: >50% relief. : Right glenohumeral steroid injection: >50% relief. 05/10/22: Right glenohumeral corticosteroid injection: >50% relief. 04/19/22: Intra-articular left glenohumeral injection: >50% relief. 02/22/22: Diagnostic bilateral suprascapular nerve block - 0% relief bilaterally 02/08/22: Bilateral Ischial Bursa /left GTB- Good relief with better mobility 11/25/21: Interlaminar Midline L3-L4 MARIZA ? Good relief for leg pain, able to walk more and better. 10/26/21: Bilateral L3-L4-L5 Diagnostic MBBs ? 30% relief for 2 days. [facility] Medical History Arthritis of both glenohumeral joints Asthma Chronic pain syndrome Chronic restrictive lung disease Dyspnea Dyspnea Gouty arthritis Neurogenic claudication due to lumbar spinal stenosis CLEVE on CPAP Tracheitis Surgical History History of cholecystectomy History of eyelid surgery History of knee replacement Status post cervical spinal fusion Family History Father HTN (hypertension) Stroke Diabetes Mother Atrial fibrillation HTN (hypertension) Social History Alcohol intake: never Patient Tobacco Use Status: Former Tobacco user Tobacco use type: Cigarette Years Smoked: 20 years Second Hand Smoke Exposure: No Review of Systems Const All systems reviewed & are unremarkable except as noted in HPI and below Physical Exam Vital Signs: Last Vital Signs Pulse 101 H 09/21/23 09:15 Resp 16 09/21/23 09:15 BP 178/77 H 09/21/23 09:15 Pulse Ox 92 09/21/23 09:15 Oxygen Delivery Method Room Air 09/21/23 09:15 BMI result Body Mass Index 44.6 General: Appears afebrile. Alert and oriented. Mood and affect appropriate. Follows and participates in conversation appropriately. Respiratory effort is unlabored. Able to transition from sit to stand unassisted. Ambulates with bilaterally normal heel strike and toe off. Results Reviewed Results Reviewed: No imaging is available for review. Assessment & Plan Assessment & Plan (1) Lumbar stenosis with neurogenic claudication: Code(s): M48.062 - Spinal stenosis, lumbar region with neurogenic claudication Category: Medical (2) Lumbar radiculopathy: Code(s): M54.16 - Radiculopathy, lumbar region Category: Medical (3) Chronic pain syndrome: Comment: Requiring narcotic use Code(s): G89.4 - Chronic pain syndrome Category: Medical Plan 36?pills were expected and 37.5?pills were presented. A refill of Vicodin was provided for the patient starting 10/03/23. Pill count and Mass PAT were consistent. The patient will follow up in four weeks for pill count on the nursing schedule. Discussed spinal cord stimulator as a possible treatment option for lumbar radicular pain, no longer responsive to lumbar epidural steroid injections. The patient will deliberate on this and let us know if she would like to proceed. Scribed for Dr. Scherer by Sae Hurst, medical associate, on 09/21/2023. I, Dr. Scherer, have personally reviewed and agree with the information entered by the scribe. Medications: Refilled hydrocodone-acetaminophen 5-300 mg Partial Fill upon patient request. 1 tab PO Q8H PRN 90 tabs 0RF pain 30 days Coding Level of Care Code Est Pt Level 4 (66689) Diagnoses Lumbar stenosis with neurogenic claudication M48.062 Lumbar radiculopathy M54.16 Chronic pain syndrome G89.4
[2023-09-21 09:15] VITALS: BP 178/77; PULSE 101; RESP 16; O2SAT 92; BMI 44.6
== END 2023-09-21 09:50 | disposition home or self-care (01) ==
PROVIDERS: PCP Internal Medicine; Visit Provider Internal Medicine
DX: M48.062 Spinal stenosis, lumbar region with neurogenic claudication (principal); M54.16 Radiculopathy, lumbar region; G89.4 Chronic pain syndrome
CPT/HCPCS: 99214

== ENCOUNTER → 2023-09-21 09:12 | Outpatient (BNVA) | payer MEDICARE, OTHER, SELFPAY | PROVIDERS: PCP Internal Medicine; Visit Provider Internal Medicine | DX: M48.062 Spinal stenosis, lumbar region with neurogenic claudication (principal); M54.16 Radiculopathy, lumbar region; G89.4 Chronic pain syndrome | CPT/HCPCS: 99212 ==

== ENCOUNTER 2023-10-19 09:09 | Outpatient (AMB) | payer MEDICARE, OTHER, SELFPAY ==
--- NOTE | 2023-10-19 09:19 | MHC.OFFVIS ---
Vital Signs 10/19/23 09:25 Height 5 ft 4 in Weight 260 lb BMI 44.6 BP 134/60 Blood Pressure Location Lt brachial Position Sitting Respiration 18 Pulse 103 H Pulse Source Pulse Oximeter Intake Visit Reasons: PILL COUNT Allergies cephalexin [From Keflex] Allergy (Severe, Verified 10/19/23 09:24) Itching pravastatin [Pravachol] Allergy (Severe, Verified 10/19/23 09:24) cramps bacitracin Adverse Reaction (Severe, Verified 10/19/23 09:24) eye swelling dexamethasone [TobraDex] Adverse Reaction (Severe, Verified 10/19/23 09:24) redness swelling tobramycin [TobraDex] Adverse Reaction (Severe, Verified 10/19/23 09:24) redness swelling Sulfa (Sulfonamide Antibiotics) Adverse Reaction (Intermediate, Verified 10/19/23 09:24) GI upset atorvastatin [From Lipitor] Adverse Reaction (Verified 10/19/23 09:24) Unknown Beef Containing Products Adverse Reaction (Verified 10/19/23 09:24) Unknown erythromycin base Adverse Reaction (Verified 10/19/23 09:24) Unknown Penicillins [PCN] Adverse Reaction (Verified 10/19/23 09:24) Unknown sulfacetamide [From Sulfacet-R] Adverse Reaction (Verified 10/19/23 09:24) Unknown sulfur [From Sulfacet-R] Adverse Reaction (Verified 10/19/23 09:24) Unknown topiramate [From Topamax] Adverse Reaction (Verified 10/19/23 09:24) Unknown Medication List - Last Reconciled 10/19/23 by Naz Simpson LPN albuterol sulfate 90 mcg/actuation 2 puffs PO Q4H albuterol sulfate 2.5 mg (3 mL) inhalation Q4H PRN allopurinol 100 mg PO DAILY aspirin 81 mg PO DAILY atorvastatin 20 mg PO DAILY bepotastine besilate 1.5% (Bepreve) 1 drp ophthalmic (eye) DAILY PRN chlorhexidine gluconate 0.12% 15 mL buccal DAILY 30 days cholecalciferol (vitamin D3) (Vitamin D3) 25 mcg PO DAILY duloxetine 60 mg PO DAILY epinephrine 0.3 mL IM ONCE PRN ferrous sulfate (FeroSul) 325 mg PO DAILY fluticasone propionate 220 mcg/actuation 2 puffs inhalation BID furosemide (Lasix) 80 mg PO BID 30 days gabapentin 100 mg PO .AM gabapentin 400 mg PO BEDTIME hydrocodone-acetaminophen 5-300 mg 1 tab PO Q8H PRN 30 days insulin glargine units subcut levothyroxine 75 mcg PO DAILY meclizine 25 mg PO BID PRN mepolizumab 100 mg subcut Q4W nystatin 1 appl topical BID omeprazole 20 mg PO DAILY potassium chloride ER 10 mEq PO BID Saccharomyces boulardii (Florastor) 250 mg PO BID sitagliptin phosphate 100 mg PO DAILY tiotropium bromide 1.25 mcg/actuation inhalation tirzepatide (Mounjaro) 2.5 mg subcut QWEEK trazodone 50 mg PO BEDTIME PRN valsartan (Diovan) 80 mg PO DAILY HPI HPI PILL COUNT: Details: 78-year-old female who presents today to the office for a pill count. 42?pills were expected and 50?pills were presented. She has lower pelvis pain that radiates down the left leg down to her toes. She also reports bilateral shoulder pain (L > R). She reports numbness in her two fingers. She reports pain from the left lower scapula region to the shoulder and down to the arm. She also reports neck pain. She has tried supplementation. She has also tried Tylenol, magnesium, calciferol, potassium, and iron. She has not tried cannabinoids. Past procedures 08/23/23: Interlaminar epidural steroid injection, L3/4, Left parasaggital: 40-50% relief for 3 days. 05/31/23: Hip Intra-articular Injection, fluoroscopy guided, Left: 70% relief. 05/14/23: Left glenohumeral joint steroid injection, ultrasound guided: 70% relief. 09/06/22: Hip Intra-articular Injection, fluoroscopy guided, Left: >50% relief. : Right glenohumeral steroid injection: >50% relief. 05/10/22: Right glenohumeral corticosteroid injection: >50% relief. 04/19/22: Intra-articular left glenohumeral injection: >50% relief. 02/22/22: Diagnostic bilateral suprascapular nerve block - 0% relief bilaterally 02/08/22: Bilateral Ischial Bursa /left GTB- Good relief with better mobility 11/25/21: Interlaminar Midline L3-L4 MARIZA ? Good relief for leg pain, able to walk more and better. 10/26/21: Bilateral L3-L4-L5 Diagnostic MBBs ? 30% relief for 2 days. [facility] Medical History Arthritis of both glenohumeral joints Asthma Chronic pain syndrome Chronic restrictive lung disease Dyspnea Dyspnea Gouty arthritis Neurogenic claudication due to lumbar spinal stenosis CLEVE on CPAP Tracheitis Surgical History History of cholecystectomy History of eyelid surgery History of knee replacement Status post cervical spinal fusion Family History Father HTN (hypertension) Stroke Diabetes Mother Atrial fibrillation HTN (hypertension) Social History Alcohol intake: never Patient Tobacco Use Status: Former Tobacco user Tobacco use type: Cigarette Years Smoked: 20 years Second Hand Smoke Exposure: No Review of Systems Const All systems reviewed & are unremarkable except as noted in HPI and below Physical Exam Vital Signs: Last Vital Signs Pulse 103 H 10/19/23 09:25 Resp 18 10/19/23 09:25 BP 134/60 10/19/23 09:25 BMI result Body Mass Index 44.6 General: Appears afebrile. Alert and oriented. Mood and affect appropriate. Follows and participates in conversation appropriately. Respiratory effort is unlabored. Able to transition from sit to stand unassisted. Ambulates with bilaterally normal heel strike and toe off. Results Reviewed Results Reviewed: No imaging is available for review. Assessment & Plan Assessment & Plan (1) Cervical radiculopathy: Code(s): M54.12 - Radiculopathy, cervical region Category: Medical (2) Scoliosis of lumbar region due to degenerative disease of spine in adult: Code(s): M41.56 - Other secondary scoliosis, lumbar region Category: Medical (3) Chronic pain syndrome: Comment: Requiring narcotic use Code(s): G89.4 - Chronic pain syndrome Category: Medical Plan 42?pills were expected and 50?pills were presented. A refill of Vicodin was provided for the patient starting 11/02/23. Pill count and Mass PAT were consistent. The patient will follow up in four weeks for pill count on the nursing schedule. I also provided her with some recommendations for CBD supplements and turmeric supplements to add to her current regimen to help with pain. We will schedule her for a left parasagittal interlaminar C7-T1 MARIZA. Discussed the risks and benefits of the procedure with the patient in detail. All questions were answered. The patient is on board with the plan. Justification for interventional therapy: ? Patient with average pain > 6/10 ? Patient has exhausted conservative therapy . Patient has a good understanding of their pain condition and has appropriate mental and social support Scribed for Dr. Scherer by Sae Hurst, medical education specialist, on 10/19/2023. I, Dr. Scherer, have personally reviewed and agree with the information entered by the scribe. Medications: Refilled hydrocodone-acetaminophen 5-300 mg Partial Fill upon patient request. 1 tab PO Q8H PRN 90 tabs 0RF pain 30 days Coding Level of Care Code Est Pt Level 4 (42065) Diagnoses Cervical radiculopathy M54.12 Scoliosis of lumbar region due to degenerative disease of spine in adult M41.56 Chronic pain syndrome G89.4
[2023-10-19 09:25] VITALS: BP 134/60; PULSE 103; RESP 18; BMI 44.6
== END 2023-10-19 09:47 | disposition home or self-care (01) ==
PROVIDERS: PCP Internal Medicine; Visit Provider Internal Medicine
DX: G89.4 Chronic pain syndrome (principal); M54.12 Radiculopathy, cervical region; M41.56 Other secondary scoliosis, lumbar region
CPT/HCPCS: 99214

== ENCOUNTER → 2023-10-19 09:09 | Outpatient (BNVA) | payer MEDICARE, OTHER, SELFPAY | PROVIDERS: PCP Internal Medicine; Visit Provider Internal Medicine | DX: Z51.81 Encounter for therapeutic drug level monitoring (principal); F11.20 Opioid dependence, uncomplicated; M54.12 Radiculopathy, cervical region; M41.56 Other secondary scoliosis, lumbar region; G89.4 Chronic pain syndrome | CPT/HCPCS: 99212 ==

== ENCOUNTER 2023-10-25 06:15 | Outpatient (REF) | payer MEDICARE, OTHER, SELFPAY ==
--- NOTE | ~2023-10-25 | FL_ITS ---
EXAMINATION: XR FLUOROSCOPY WITH IMAGES CLINICAL INFORMATION: Arthrodesis status C7-T1 on the left. COMPARISON: None available. TECHNIQUE: Fluoroscopy Supervised By: Dr. Scherer. Fluoroscopy Time: 0.4 min. Cumulative Dose: 12.1 mGy. DAP: 0.620 Gycm2. Images: 5. FINDINGS: Intraoperative fluoroscopy and spot films were performed during a procedure in the OR. Four tightly coned images demonstrate needle overlying the spine with some contrast media present, likely epidural. The levels can not be ascertained secondary to marked coning of the images with lack of appropriate landmarks. Please correlate with Dr. Scherer' report for complete details. FL/FL guidance in treatment room IMPRESSION: Intraoperative fluoroscopy and spot films were obtained. Please see Dr. Scherer' report for complete details.
== END 2023-10-25 06:16 | disposition home or self-care (01) ==
LOC: CF 06:15
PROVIDERS: Visit Provider Internal Medicine
DX: M54.12 Radiculopathy, cervical region (principal); Z98.1 Arthrodesis status
CPT/HCPCS: 62321; J1100; Q9967

== ENCOUNTER 2023-11-13 13:12 | Outpatient (AMB) | payer MEDICARE, OTHER, SELFPAY ==
[2023-11-13 13:19] VITALS: PULSE 84; O2SAT 93; BMI 44.4
--- NOTE | 2023-11-13 13:19 | MHC.OFFVIS ---
Vital Signs 11/13/23 13:19 Height 5 ft 4 in Weight 258 lb 9.636 oz BMI 44.4 Pulse 84 Pulse Source Pulse Oximeter Pulse Oximetry (%) 93 Oxygen Delivery Method Room Air Intake Visit Reasons: Obstructive sleep apnea New Business Clerk Required: No Allergies cephalexin [From Keflex] Allergy (Severe, Verified 11/13/23 13:20) Itching pravastatin [Pravachol] Allergy (Severe, Verified 11/13/23 13:20) cramps bacitracin Adverse Reaction (Severe, Verified 11/13/23 13:20) eye swelling dexamethasone [TobraDex] Adverse Reaction (Severe, Verified 11/13/23 13:20) redness swelling tobramycin [TobraDex] Adverse Reaction (Severe, Verified 11/13/23 13:20) redness swelling Sulfa (Sulfonamide Antibiotics) Adverse Reaction (Intermediate, Verified 11/13/23 13:20) GI upset atorvastatin [From Lipitor] Adverse Reaction (Verified 11/13/23 13:20) Unknown Beef Containing Products Adverse Reaction (Verified 11/13/23 13:20) Unknown erythromycin base Adverse Reaction (Verified 11/13/23 13:20) Unknown Penicillins [PCN] Adverse Reaction (Verified 11/13/23 13:20) Unknown sulfacetamide [From Sulfacet-R] Adverse Reaction (Verified 11/13/23 13:20) Unknown sulfur [From Sulfacet-R] Adverse Reaction (Verified 11/13/23 13:20) Unknown topiramate [From Topamax] Adverse Reaction (Verified 11/13/23 13:20) Unknown HPI Comments Details: The patient is a 78 y/o woman with a history of asthma COPD overlap syndrome. She was admitted to [facility] with worsening dyspnea symptoms. She was found to be in congestive heart failure. She was aggressively diuresed. Recently underwent an echocardiogram demonstrated diastolic dysfunction and also moderate to severe aortic stenosis did increased gradient. She did follow-up with her delinquency prevention officer who recommended she undergo a right heart catheterization to assess pressures and consider a transcutaneous aortic valve replacement. At this point the patient is trying to continue recovering after her prolonged hospitalization in rehabilitation. She is off all nebulized therapy at this time. She does have her Flovent and Spiriva that she uses daily. She continues to Nucala in the allergy shots with good effect. Otherwise the patient is doing well in good spirits. She has not required the oxygen. She did follow-up with cardiology in time to have a cardiac catheterization to assess her aortic stenosis. The patient is also dealing with a questionable rotator cuff injury and will be following up with orthopedic surgery. She continues uses CPAP. The CPAP therapy continues to be affecting beneficial. 12/04/2019 Today the patient is here for pulmonary follow-up visit. Overall she is doing very well from a respiratory status. She continues on her respiratory regimen with good adherence. Has not required any rescue medicine or even her nebulizer. She continues on the Lasix medication with good volume status. No significant lower extremity edema. She continues with her allergy shots along with Nucala. Her CPAP therapy continues to be affecting beneficial. Although she is getting a lot of leaks from her mask making it difficult for her to sleep at nighttime. Once the COVID-19 infection settle she will call her [employer] company to make a date for mask clinic. She will be seeing cardiology soon regarding her aortic stenosis. At this point the patient is trying to avoid the COVID-19 infections and likely will have to plan to schedule testing for the beginning of 2020. 06/24/2020 the patient is here for pulmonary follow-up visit. The patient continues to have significant shortness of breath. Is actually gotten worse. Moderate severity. She has a hard time doing her activities of daily living. She continues with the current respiratory therapy continues with her allergy shots. She has been complaining of increasing raspiness of her voice. She is also having increased mucus production. Denies any hemoptysis. She had a back a so tracheitis in the past with significant hemoptysis. At that point her cultures are positive for Staph aureus. She has also had increased lower extremity edema. She has also has some evidence of cellulitis primarily in the right lower extremity. At this time the patient is being evaluated for potential treatment for her aortic stenosis. It appears to to be getting worse. Also, concerning for the possibility of worsening respiratory symptoms and not able to proceed with her procedure safely. She continues uses CPAP therapy. Although with the cough and sometimes is makes it difficult. At this point will treated with doxycycline to treat her underlying history of Staph tracheitis. In addition to that we will request a CT scan of the neck to better assess the trachea and see if there is any irregularities. Could also consider bronchoscopy but at this point will try to minimize semi invasive procedures. 05/23/2021 the patient is here for a pulmonary follow-up visit. The patient is status post transcatheter aortic valve replacement. The surgery went very well and she was able to be discharged from the hospital postop day 1. no complications. The meantime she is on home now. She continues on diuresis. The patient does complaint of dyspnea on exertion. She does still have a hard time walking because of her significant hip and back pain. The patient is currently working with stopping specialist regarding her significant discomfort. In the meantime she continues with respiratory medications. She also continues on the Nucala injections once a Months. She is having hard time sleeping. She was using trazodone. Then she was started on a at the present so than the trazodone was stopped. She is also on gabapentin at this time. I did talk about that she has multiple options for sleep aids. One option is to increase her gabapentin at nighttime. She states that she will follow-up with clinical quality analyst regarding that since the initiated the medication. So therefore I am okay for her to continue with the as needed trazodone as long as she keeps at 50 mg. The patient has a lot of polypharmacy at this point we need to simplify her regimen. 09/22/2021 the patient is here for a pulmonary follow-up visit. Overall she has been doing okay. She does complaint of persistent dyspnea on exertion. She did follow-up with her cardiology is [place] regarding the shortness of breath. she was told that she is doing well from a cardiac status. She does have multifactorial reasons for the shortness of breath. She has significant back discomfort that keeps her from being mobile. Therefore she is decondition. She had to stop doing pulmonary rehabilitation due to her discomfort. She is currently working with pain management for her pain management. She will be undergoing intervention soon. from an asthma standpoint she has been doing well. She continues use her respiratory therapy. She has not required her rescue medication. She continues with Nucala. She also continues uses CPAP at nighttime. The CPAP therapy continues to be affecting beneficial. She does use was 4 hours a night. The patient is wondering about the chlorhexidine mouthwash. I did state that she can continue using it for the month of September specially since she is going to be undergoing a surgical procedure for her pain management. However, after she should hold off on using because he can affect her dentition. 01/23/2023 the patient is here for a pulmonary follow-up visit. She is doing well from a respiratory status. She continues with respiratory medications. Does have dyspnea on exertion but is likely multifactorial. She does have significant back pain. She does use a cane and also has a walker. Currently she is on a wheelchair because it is difficult for her to walk in the hospital settings. She is currently being evaluated by Neurosurgery. She is not sure she is going to undergo additional surgeries for his spinal stenosis. At this point she is pretty debilitated so she is likely to consider it if it can be beneficial. In the meantime she continues with the Nucala injections. This point they appeared to be affecting beneficial when she will continue them for now. She does get allergy symptoms due to the IgE elevation but at this point she can treat the symptoms with allergy medicines. She continues use her respiratory therapy. No evidence of any laryngitis or issues with tracheal disease. She does have a CPAP and she does use it every night. The CPAP therapy continues to be affecting beneficial. She does use it for more than 4 hours a night. However, the fullface mask is causing her to get a lot of irritation and ulceration to the nasal bridge. I did provide her with an F30 mask with hopes that she could provide good enough seal for her to tolerated. Although, she does have a very tiny PT nose which makes it hard for her to get a good seal with the hybrid mask. She will try anyways at least take a break from the irritation from the nasal bridge. The patient is doing well from a respiratory status therefore the patient is able to return in 10-12 months for a follow-up visit. If he has any issues prior to that she is to call the office for an earlier assessment. 11/13/2023 the patient is here for a pulmonary follow-up visit. With heat and humidity she has had a increasing chest tightness. She has had some increasing wheezing. Ucph-[id number] severity. She has had to use her rescue inhaler few more times a week. Although has not been bad enough for her to consider prednisone. The patient has not been taking a long-acting beta agonist. Will try to minimize her medications specially if her symptoms are transient. She does continue her fluticasone propionate inhaler. I will go ahead and resend to the pharmacy. She still continues on biologic therapy. In addition to that she continues her nasal sprays with good effect for her allergic chronic rhinitis. The patient did have a fall and she injured her right wrist. She started developing some erythema and some induration of her distal forearm. Appears to have some component of cellulitis. Therefore, will give her a prescription for doxycycline. If the areas no better worsens she needs to follow-up with her primary care doctor Or urgent care. Otherwise patient is doing well she is using her CPAP at nighttime the CPAP therapy continues to be affecting beneficial. She does use it for more than 4 hours a night. Still hard for her to walk. She does have to get assistance and she is following closely with pain management. [facility] Medical History Arthritis of both glenohumeral joints Asthma Chronic pain syndrome Chronic restrictive lung disease Dyspnea Dyspnea Gouty arthritis Neurogenic claudication due to lumbar spinal stenosis CLEVE on CPAP Tracheitis Surgical History History of cholecystectomy History of eyelid surgery History of knee replacement Status post cervical spinal fusion Family History Father HTN (hypertension) Stroke Diabetes Mother Atrial fibrillation HTN (hypertension) Social History Alcohol intake: never Patient Tobacco Use Status: Former Tobacco user Tobacco use type: Cigarette Years Smoked: 20 years Second Hand Smoke Exposure: No Review of Systems Const Denies daytime sleepiness, Denies difficulty sleeping and Denies night sweats ENT Denies change in voice, Denies hoarseness, Denies lip swelling, Reports epistaxis, Denies mouth pain, Reports nasal congestion, Reports nasal discharge, Reports post nasal drip and Denies tongue swelling Card Denies chest pain and Reports dyspnea on exertion Resp Denies chest congestion, Reports cough, Denies excessive phlegm production, Reports dyspnea on exertion and Reports wheezing GI Denies abdominal pain Musc Reports as per HPI, Reports abnormal gait, Reports back pain, Reports arthralgias, Reports limited range of motion and Reports stiffness Skin/Breast Reports erythema Neuro Denies Neuro-related abnormal movements and Reports abnormal gait Psych Denies no additional complaints Miguel/Lymph Denies easy bleeding and Denies lymphadenopathy Aller/Immun Denies lip swelling, Denies tongue swelling and Reports wheezing Physical Exam Vital Signs: Last Vital Signs Pulse 84 11/13/23 13:19 Pulse Ox 93 11/13/23 13:19 Oxygen Delivery Method Room Air 11/13/23 13:19 BMI result Body Mass Index 44.4 Const General: alert Neck Neck: Yes normal visual inspection, Yes full ROM and Yes no lymphadenopathy Chest Chest palpation & inspection: normal inspection of the chest Resp Auscultation: no wheezes and diminished lung sounds Cardio Rate: regular rate Rhythm: regular rhythm Heart sounds: S1 normal heart sound present and S2 normal heart sound present GI Palpation (GI): Soft to palpation and nontender Auscultation: normal bowel sounds Skin General skin exam: erythema Extrem General: No calf tenderness, No clubbing, No cyanosis and Yes edema Right upper extremity: Extremity exam: right hand Details: tenderness, warmth and swelling Assessment & Plan Assessment & Plan (1) CLEVE on CPAP: Code(s): G47.33 - Obstructive sleep apnea (adult) (pediatric); Z99.89 - Dependence on other enabling machines and devices Category: Medical (2) Chronic restrictive lung disease: Comment: Moderate severity, not much different from 2019 Code(s): J98.4 - Other disorders of lung Category: Medical (3) Asthma: Code(s): J45.909 - Unspecified asthma, uncomplicated Category: Medical Qualifiers: Asthma complication type: uncomplicated Asthma persistence: persistent Asthma severity: moderate Qualified Code(s): J45.40 - Moderate persistent asthma, uncomplicated (4) Cellulitis: Code(s): L03.90 - Cellulitis, unspecified Category: Medical Qualifiers: Site of cellulitis: extremity Site of cellulitis of extremity: upper extremity Laterality: right Qualified Code(s): L03.113 - Cellulitis of right upper limb Plan Continue Flovent continue Spiriva Respimat 2 inhalations daily Nebulized therapy as needed On biologic therapy with Nucala every 4 weeks Continue CPAP therapy, trial small F30 mask to allow the nasal bridge skin trauma to heal Use saline gel continue Dymista Trazodone as needed for sleep doxycycline for cellulitis F/U 10-12 months Medications: New azelastine-fluticasone 137-50 mcg/spray 1 spray intranasal BID 23 grams 11RF 30 days fluticasone propionate 220 mcg/actuation 2 puffs inhalation BID 12 grams 11RF doxycycline hyclate 100 mg PO BID 20 caps 0RF 10 days Coding Level of Care Code Est Pt Level 4 (67613) Diagnoses CLEVE on CPAP G47.33; Z99.89 Chronic restrictive lung disease J98.4 Moderate persistent asthma without complication J45.40 Asthma complication type: uncomplicated Asthma persistence: persistent Asthma severity: moderate Cellulitis of right upper extremity L03.113 Site of cellulitis: extremity Site of cellulitis of extremity: upper extremity Laterality: right Time Spent (min) 16
== END 2023-11-13 13:42 | disposition home or self-care (01) ==
PROVIDERS: PCP Internal Medicine; Visit Provider Hospitalist
DX: G47.33 Obstructive sleep apnea (adult) (pediatric) (principal); Z99.89 Dependence on other enabling machines and devices; J98.4 Other disorders of lung; J45.40 Moderate persistent asthma, uncomplicated; L03.113 Cellulitis of right upper limb
CPT/HCPCS: 99214

== ENCOUNTER → 2023-11-13 13:12 | Outpatient (BNVA) | payer MEDICARE, OTHER, SELFPAY | PROVIDERS: PCP Internal Medicine; Visit Provider Hospitalist | DX: G47.33 Obstructive sleep apnea (adult) (pediatric) (principal); J44.9 Chronic obstructive pulmonary disease, unspecified; J98.4 Other disorders of lung; J45.40 Moderate persistent asthma, uncomplicated; L03.113 Cellulitis of right upper limb; Z99.89 Dependence on other enabling machines and devices | CPT/HCPCS: 99212 ==

== ENCOUNTER 2023-11-14 09:36 | Outpatient (AMB) | payer MEDICARE, OTHER, SELFPAY ==
--- NOTE | 2023-11-14 09:37 | A.OFFVIS_ITS ---
Vital Signs 11/14/23 09:38 Height 5 ft 4 in Weight 261 lb BMI 44.8 BP 139/84 Blood Pressure Location Lt radial Position Sitting Respiration 18 Pulse 99 Pulse Source Pulse Oximeter Pulse Oximetry (%) 94 Oxygen Delivery Method Room Air Intake Visit Reasons: PILL COUNT Allergies cephalexin [From Keflex] Allergy (Severe, Verified 11/14/23 09:43) Itching pravastatin [Pravachol] Allergy (Severe, Verified 11/14/23 09:43) cramps bacitracin Adverse Reaction (Severe, Verified 11/14/23 09:43) eye swelling dexamethasone [TobraDex] Adverse Reaction (Severe, Verified 11/14/23 09:43) redness swelling tobramycin [TobraDex] Adverse Reaction (Severe, Verified 11/14/23 09:43) redness swelling Sulfa (Sulfonamide Antibiotics) Adverse Reaction (Intermediate, Verified 11/14/23 09:43) GI upset atorvastatin [From Lipitor] Adverse Reaction (Verified 11/14/23 09:43) Unknown Beef Containing Products Adverse Reaction (Verified 11/14/23 09:43) Unknown erythromycin base Adverse Reaction (Verified 11/14/23 09:43) Unknown Penicillins [PCN] Adverse Reaction (Verified 11/14/23 09:43) Unknown sulfacetamide [From Sulfacet-R] Adverse Reaction (Verified 11/14/23 09:43) Unknown sulfur [From Sulfacet-R] Adverse Reaction (Verified 11/14/23 09:43) Unknown topiramate [From Topamax] Adverse Reaction (Verified 11/14/23 09:43) Unknown Medication List - Last Reconciled 11/14/23 by Naz Simpson LPN albuterol sulfate 90 mcg/actuation 2 puffs PO Q4H albuterol sulfate 2.5 mg (3 mL) inhalation Q4H PRN allopurinol 100 mg PO DAILY aspirin 81 mg PO DAILY atorvastatin 20 mg PO DAILY azelastine-fluticasone 137-50 mcg/spray 1 spray intranasal BID 30 days bepotastine besilate 1.5% (Bepreve) 1 drp ophthalmic (eye) DAILY PRN calcitriol mcg PO chlorhexidine gluconate 0.12% 15 mL buccal DAILY 30 days cholecalciferol (vitamin D3) (Vitamin D3) 25 mcg PO DAILY doxycycline hyclate 100 mg PO BID 10 days duloxetine 60 mg PO DAILY epinephrine 0.3 mL IM ONCE PRN ferrous sulfate (FeroSul) 325 mg PO DAILY fluticasone propionate 220 mcg/actuation 2 puffs inhalation BID furosemide (Lasix) 80 mg PO BID 30 days gabapentin 100 mg PO .AM gabapentin 400 mg PO BEDTIME hydrocodone-acetaminophen 5-300 mg 1 tab PO Q8H PRN 30 days insulin glargine units subcut levothyroxine 75 mcg PO DAILY meclizine 25 mg PO BID PRN mepolizumab 100 mg subcut Q4W nystatin 1 appl topical BID omeprazole 20 mg PO DAILY potassium chloride ER 10 mEq PO BID Saccharomyces boulardii (Florastor) 250 mg PO BID sitagliptin phosphate 100 mg PO DAILY tiotropium bromide 1.25 mcg/actuation inhalation tirzepatide (Mounjaro) 2.5 mg subcut QWEEK trazodone 50 mg PO BEDTIME PRN valsartan (Diovan) 80 mg PO DAILY HPI HPI PILL COUNT: Details: 78-year-old female who presents to the office for pill count 54 pills were expected and 62 were presented Pill count and Mass Pat were consistent She had significant relief from the cervical epidural steroid injection with resolution of symptoms in her fingers and forearms. She does complain of some bilateral hip pain that radiates down into her left leg and toes. She also reports radiation of pain from the left lower scapula region to the shoulder and into the arms. Also has neck pain that is worse with turning her head. Overall she continues to have intractable neck and back pain. This has been hard to treat via injections and medications. She is interested in trialing PNS strategy to see if that might provide more longer-term relief. Past Procedure: 10/25/23: Left C7-T1 parasagittal interlaminar MARIZA: Resolution of forearm and finger pain 08/23/23: Interlaminar epidural steroid injection, L3/4, Left parasaggital: 40- 50% relief for 3 days. 05/31/23: Hip Intra-articular Injection, fluoroscopy guided, Left: 70% relief. 05/14/23: Left glenohumeral joint steroid injection, ultrasound guided: 70% relief. 09/06/22: Hip Intra-articular Injection, fluoroscopy guided, Left: >50% relief. : Right glenohumeral steroid injection: >50% relief. 05/10/22: Right glenohumeral corticosteroid injection: >50% relief. 04/19/22: Intra-articular left glenohumeral injection: >50% relief. 02/22/22: Diagnostic bilateral suprascapular nerve block - 0% relief bilaterally 02/08/22: Bilateral Ischial Bursa /left GTB- Good relief with better mobility 11/25/21: Interlaminar Midline L3-L4 MARIZA ? Good relief for leg pain, able to walk more and better. 10/26/21: Bilateral L3-L4-L5 Diagnostic MBBs ? 30% relief for 2 days. [facility] Medical History Arthritis of both glenohumeral joints Asthma Chronic pain syndrome Chronic restrictive lung disease Dyspnea Dyspnea Gouty arthritis Neurogenic claudication due to lumbar spinal stenosis CLEVE on CPAP Tracheitis Surgical History History of cholecystectomy History of eyelid surgery History of knee replacement Status post cervical spinal fusion Family History Father HTN (hypertension) Stroke Diabetes Mother Atrial fibrillation HTN (hypertension) Social History Alcohol intake: never Patient Tobacco Use Status: Former Tobacco user Tobacco use type: Cigarette Years Smoked: 20 years Second Hand Smoke Exposure: No Review of Systems Const All systems reviewed & are unremarkable except as noted in HPI and below Physical Exam Vital Signs: Last Vital Signs Pulse 99 11/14/23 09:38 Resp 18 11/14/23 09:38 BP 139/84 11/14/23 09:38 Pulse Ox 94 11/14/23 09:38 Oxygen Delivery Method Room Air 11/14/23 09:38 BMI result Body Mass Index 44.8 General: Appears afebrile. Alert and oriented. Mood and affect appropriate. Follows and participates in conversation appropriately. Respiratory effort is unlabored. Able to transition from sit to stand unassisted. Results Reviewed Results Reviewed: No imaging is available for review Assessment & Plan Assessment & Plan (1) Intractable back pain: Code(s): M54.9 - Dorsalgia, unspecified Category: Medical Plan I had a long discussion with the patient regarding potential treatment options including peripheral nerve stimulation therapy for intractable neck and back pain symptoms. She is quite frustrated with her condition and is interested in proceeding with trial of PNS, starting with her lower back. At this time her most bothersome symptom is in the right back and buttock area. We will start with temporary right L4 medial branch nerve stimulator placement. Depending on the response, and her comfort with the therapy, we can potentially target her right cervical medial branch nerves in the future as well. Patient expressed understanding and is on board with the plan. I provided her with a brochure on sprint PNS therapy once again. Scribed for Dr. Scherer by Zarina Rdz, medical officer psychiatry, on 11/14/2023. I, Dr. Scherer, have personally reviewed and agree with the information entered by the scribe. Medications: Refilled hydrocodone-acetaminophen 5-300 mg Partial Fill upon patient request. 1 tab PO Q8H PRN 90 tabs 0RF pain 30 days Coding Level of Care Code Est Pt Level 4 (28003) Diagnoses Intractable back pain M54.9
[2023-11-14 09:38] VITALS: BP 139/84; PULSE 99; RESP 18; O2SAT 94; BMI 44.8
== END 2023-11-14 10:01 | disposition home or self-care (01) ==
PROVIDERS: PCP Internal Medicine; Visit Provider Internal Medicine
DX: M54.9 Dorsalgia, unspecified (principal)
CPT/HCPCS: 99214

== ENCOUNTER → 2023-11-14 09:36 | Outpatient (BNVA) | payer MEDICARE, OTHER, SELFPAY | PROVIDERS: PCP Internal Medicine; Visit Provider Internal Medicine | DX: M54.9 Dorsalgia, unspecified (principal) | CPT/HCPCS: 99212 ==

== ENCOUNTER 2023-11-29 06:22 | Outpatient (REF) | payer MEDICARE, OTHER, SELFPAY ==
--- NOTE | ~2023-11-29 | FL_ITS ---
EXAMINATION: XR FLUOROSCOPY WITH IMAGES CLINICAL INFORMATION: Spondylosis without myelopathy or radiculopathy, lumbar region COMPARISON: 10/25/2023 TECHNIQUE: Fluoroscopy provided to: Dr. Scherer Fluoroscopy time: 0.2 minutes DAP: [id number] [id number] Images: 3 FINDINGS: 3 coned down images lower lumbar spine show needle placed interlaminar left space L5-S1, and also overlying left L4-5 interlaminar space, with stimulator leads noted likely being placed. FL/FL guidance in treatment room IMPRESSION: Fluoroscopic guidance. Please refer to the full operative report for details. Electronically signed by: Eliseo Mendez MD 01/24/2024 02:11 PM EDT
== END 2023-11-29 06:23 | disposition home or self-care (01) ==
LOC: CF 06:22
PROVIDERS: Visit Provider Internal Medicine
DX: M47.816 Spondylosis without myelopathy or radiculopathy, lumbar region (principal)
CPT/HCPCS: 64555; C1778

== ENCOUNTER 2023-11-29 10:58 | Outpatient (AMB) | payer MEDICARE, OTHER, SELFPAY ==
[2023-11-29 11:10] VITALS: BP 107/49; PULSE 111; O2SAT 95
--- NOTE | 2023-11-29 11:29 | A.OFFVIS_ITS ---
Vital Signs 11/29/23 11:10 11/29/23 11:59 BP 107/49 L 129/73 Blood Pressure Location Lt radial Lt radial Position Sitting Sitting Respiration 20 Pulse 111 H 116 H Pulse Source Pulse Oximeter Pulse Oximeter Pulse Oximetry (%) 95 93 Oxygen Delivery Method Room Air Room Air Comment Pre-op Post-op Intake Visit Reasons: Left L4 Sprint Allergies cephalexin [From Keflex] Allergy (Severe, Verified 11/14/23 09:43) Itching pravastatin [Pravachol] Allergy (Severe, Verified 11/14/23 09:43) cramps bacitracin Adverse Reaction (Severe, Verified 11/14/23 09:43) eye swelling dexamethasone [TobraDex] Adverse Reaction (Severe, Verified 11/14/23 09:43) redness swelling tobramycin [TobraDex] Adverse Reaction (Severe, Verified 11/14/23 09:43) redness swelling Sulfa (Sulfonamide Antibiotics) Adverse Reaction (Intermediate, Verified 11/14/23 09:43) GI upset atorvastatin [From Lipitor] Adverse Reaction (Verified 11/14/23 09:43) Unknown Beef Containing Products Adverse Reaction (Verified 11/14/23 09:43) Unknown erythromycin base Adverse Reaction (Verified 11/14/23 09:43) Unknown Penicillins [PCN] Adverse Reaction (Verified 11/14/23 09:43) Unknown sulfacetamide [From Sulfacet-R] Adverse Reaction (Verified 11/14/23 09:43) Unknown sulfur [From Sulfacet-R] Adverse Reaction (Verified 11/14/23 09:43) Unknown topiramate [From Topamax] Adverse Reaction (Verified 11/14/23 09:43) Unknown HPI HPI Left L4 Sprint: Details: Patient presents for scheduled procedure. Denies any recent cough, cold, infec tion, fever or other significant changes in medical history since last office visit. [facility] Medical History Arthritis of both glenohumeral joints Asthma Chronic pain syndrome Chronic restrictive lung disease Dyspnea Dyspnea Gouty arthritis Neurogenic claudication due to lumbar spinal stenosis CLEVE on CPAP Tracheitis Surgical History History of cholecystectomy History of eyelid surgery History of knee replacement Status post cervical spinal fusion Family History Father HTN (hypertension) Stroke Diabetes Mother Atrial fibrillation HTN (hypertension) Social History Alcohol intake: never Patient Tobacco Use Status: Former Tobacco user Tobacco use type: Cigarette Years Smoked: 20 years Second Hand Smoke Exposure: No Physical Exam Vital Signs: Last Vital Signs Pulse 116 H 11/29/23 11:59 Resp 20 11/29/23 11:59 BP 129/73 11/29/23 11:59 Pulse Ox 93 11/29/23 11:59 Oxygen Delivery Method Room Air 11/29/23 11:59 Office Procedures Details: Lumbar Medial Branch Nerve Stimulation Lead Placement, SPR (Sprint) System, Left L3 ? After the risks, benefits and alternatives were discussed with the patient and informed consent was obtained, patient was placed in the prone position and padded to foster comfort. The skin overlying the lumbosacral spine was prepped and draped in sterile fashion. Fluoroscopy was used to identify the spinous process and lamina in the center of the patient?s region of pain. After identifying and marking the intended target along the course of the medial branch nerve, the skin around the planned entry point and the subcutaneous tissues were injected with lidocaine 1%. An introducer needle and stimulating probe were assembled, inserted and advanced along the intended course of the medial branch nerve as it traverses the lamina medial and inferior to the zygapophyseal joint, taking care to maintain the proper depth of insertion as the introducer is advanced under fluoroscopic guidance. The introducer needle was delivered to a location in proximity to the nerve. Multiple stimulation parameters were used to deliver stimulation to the target medial branch nerve in concert with stimulating at multiple positions around the nerve. Nerve target acquisition was confirmed noting generation of paresthesias in the paravertebral regions corresponding to the level being stimulated. Various electrical parameter combinations were tested, and the lead location was adjusted (physically relocated) until the patient indicated paresthesia/muscle tension overlapping the distribution of the patient?s typical region of pain. The stimulating probe was removed from the introducer and a percutaneous lead was guided through the needle and delivered to a location in similar proximity to the nerve. Final location was verified with electrical stimulation and documented with fluoroscopy. The introducer needle was removed, and the exposed end of the percutaneous lead was attached to an external stimulator unit. Various electrical parameter combinations were again tested until the patient indicated paresthesia or muscle tension overlapping the distribution of the patient?s typical region of pain. After confirming that lead impedance was in the normal range, the external unit was detached, the needle was removed, and the lead was anchored at the skin. The lead was threaded into the connector block and electrical continuity and desired patient response was confirmed. The connector block was attached to the external stimulator unit. The site was covered with a sterile occlusive dressing. The patient was observed for stability of vital signs and comfort. Sprint PNS Device: Sprint PNS Device [id number] Percutaneous Peripheral Neuroelectrode Procedure: 88899 - Percutaneous Peripheral Neuroelectrode Procedure code (CPT) selection complete Office Meds lidocaine (PF) 50 mg/5 mL (1 %) injection syringe Performing Provider: Julissa Ayers APRN, CNP Performing Location: [facility] Administered by: Naz Simpson LPN on 11/29/23 11:29 Dose Route Admin Location Dispensed Lot Number Expiration Date [facility] Dental Secretary 5 mL subcut 5 mL Assessment & Plan Assessment & Plan (1) Intractable back pain: Code(s): M54.9 - Dorsalgia, unspecified Category: Medical (2) Lumbar spondylosis: Code(s): M47.816 - Spondylosis without myelopathy or radiculopathy, lumbar region Category: Medical Plan Patient is status post temporary left L3 medial branch nerve stimulator placement. Patient tolerated procedure well and was discharged home in stable condition with discharge instructions. All questions were answered. We will follow-up via telephone or in clinic to assess response to therapy. A follow-up appointment was made during today's visit. Orders: Orders FL guidance in treatment room Today M47.816 - Spondylosis without myelopathy or radiculopathy, lumbar region AMB Sprint PNS Today M47.816 - Spondylosis without myelopathy or radiculopathy, lumbar region Coding Level of Care Code Procedure Only Diagnoses Intractable back pain M54.9 Lumbar spondylosis M47.816 CPT Codes Sprint PNS - Sprint PNS Device: Sprint PNS Device ([id number]) Sprint PNS - SPRINT: 90250 - Percutaneous Peripheral Neuroelectrode ([id number]) Implantable Device Implantable Device Implantable Devices Qty Dental Secretary Implant Date Expiration Date Analgesic PENS system 1 [facility] [employer] 11/29/23 07/31/24
[2023-11-29 11:59] VITALS: BP 129/73; PULSE 116; RESP 20; O2SAT 93
== END 2023-11-29 11:54 | disposition home or self-care (01) ==
LOC: HO.PMCPRC 10:58
PROVIDERS: PCP Internal Medicine; Visit Provider Internal Medicine
DX: M54.9 Dorsalgia, unspecified (principal); M47.816 Spondylosis without myelopathy or radiculopathy, lumbar region
CPT/HCPCS: 64555

== ENCOUNTER 2023-12-05 08:25 | Outpatient (AMB) | payer MEDICARE, OTHER, SELFPAY ==
--- NOTE | 2023-12-05 08:34 | MHC.OFFVIS ---
Vital Signs 12/05/23 08:36 Height 5 ft 4 in Weight 261 lb BMI 44.8 BP 144/69 H Blood Pressure Location Lt radial Position Sitting Respiration 16 Pulse 101 H Pulse Source Pulse Oximeter Intake Visit Reasons: s/p Sprint + pill count Intake Note: Pt states she last took vicodin 12/05/23 @ 6am Allergies cephalexin [From Keflex] Allergy (Severe, Verified 12/05/23 08:37) Itching pravastatin [Pravachol] Allergy (Severe, Verified 12/05/23 08:37) cramps bacitracin Adverse Reaction (Severe, Verified 12/05/23 08:37) eye swelling dexamethasone [TobraDex] Adverse Reaction (Severe, Verified 12/05/23 08:37) redness swelling tobramycin [TobraDex] Adverse Reaction (Severe, Verified 12/05/23 08:37) redness swelling Sulfa (Sulfonamide Antibiotics) Adverse Reaction (Intermediate, Verified 12/05/23 08:37) GI upset atorvastatin [From Lipitor] Adverse Reaction (Verified 12/05/23 08:37) Unknown Beef Containing Products Adverse Reaction (Verified 12/05/23 08:37) Unknown erythromycin base Adverse Reaction (Verified 12/05/23 08:37) Unknown Penicillins [PCN] Adverse Reaction (Verified 12/05/23 08:37) Unknown sulfacetamide [From Sulfacet-R] Adverse Reaction (Verified 12/05/23 08:37) Unknown sulfur [From Sulfacet-R] Adverse Reaction (Verified 12/05/23 08:37) Unknown topiramate [From Topamax] Adverse Reaction (Verified 12/05/23 08:37) Unknown Medication List - Last Reconciled 12/05/23 by aNz Simpson LPN albuterol sulfate 90 mcg/actuation 2 puffs PO Q4H albuterol sulfate 2.5 mg (3 mL) inhalation Q4H PRN allopurinol 100 mg PO DAILY aspirin 81 mg PO DAILY atorvastatin 20 mg PO DAILY azelastine-fluticasone 137-50 mcg/spray 1 spray intranasal BID 30 days bepotastine besilate 1.5% (Bepreve) 1 drp ophthalmic (eye) DAILY PRN calcitriol mcg PO chlorhexidine gluconate 0.12% 15 mL buccal DAILY 30 days cholecalciferol (vitamin D3) (Vitamin D3) 25 mcg PO DAILY doxycycline hyclate 100 mg PO BID 10 days duloxetine 60 mg PO DAILY epinephrine 0.3 mL IM ONCE PRN ferrous sulfate (FeroSul) 325 mg PO DAILY fluticasone propionate 220 mcg/actuation 2 puffs inhalation BID furosemide (Lasix) 80 mg PO BID 30 days gabapentin 100 mg PO .AM gabapentin 400 mg PO BEDTIME hydrocodone-acetaminophen 5-300 mg 1 tab PO Q8H PRN 30 days insulin glargine units subcut levothyroxine 75 mcg PO DAILY meclizine 25 mg PO BID PRN mepolizumab 100 mg subcut Q4W nystatin 1 appl topical BID omeprazole 20 mg PO DAILY potassium chloride ER 10 mEq PO BID Saccharomyces boulardii (Florastor) 250 mg PO BID sitagliptin phosphate 100 mg PO DAILY tiotropium bromide 1.25 mcg/actuation inhalation tirzepatide (Mounjaro) 2.5 mg subcut QWEEK trazodone 50 mg PO BEDTIME PRN valsartan (Diovan) 80 mg PO DAILY HPI HPI s/p Sprint + pill count: Details: 78-year-old female who presents to the office for evaluation of status post sprint placement and pill count. 86 pills were expected and 90 were presented. The patient reports no significant relief following the procedure as yet. She has a rash and feels mildly itchy at the lead insertion site. She notices the batteries getting disconnected when sits down. She has mild discomfort and pain which radiates down to her buttocks as well as ankles and toes. She also feels tingling sensation in the buttock and waist area when the stimulator is on. She reports she has water eyes for which she take Zyrtec 50 mg twice daily. Past Procedure: 11/29/23: Temporary left L3 medial branch nerve stimulator placement: Therapy ongoing 10/25/23: Left C7-T1 parasagittal interlaminar MARIZA: Resolution of forearm and finger pain 08/23/23: Interlaminar epidural steroid injection, L3/4, Left parasaggital: 40-50% relief for 3 days. 05/31/23: Hip Intra-articular Injection, fluoroscopy guided, Left: 70% relief. 05/14/23: Left glenohumeral joint steroid injection, ultrasound guided: 70% relief. 09/06/22: Hip Intra-articular Injection, fluoroscopy guided, Left: >50% relief. : Right glenohumeral steroid injection: >50% relief. 05/10/22: Right glenohumeral corticosteroid injection: >50% relief. 04/19/22: Intra-articular left glenohumeral injection: >50% relief. 02/22/22: Diagnostic bilateral suprascapular nerve block - 0% relief bilaterally 02/08/22: Bilateral Ischial Bursa /left GTB- Good relief with better mobility 11/25/21: Interlaminar Midline L3-L4 MARIZA ? Good relief for leg pain, able to walk more and better. 10/26/21: Bilateral L3-L4-L5 Diagnostic MBBs ? 30% relief for 2 days. [facility] Medical History Arthritis of both glenohumeral joints Asthma Chronic pain syndrome Chronic restrictive lung disease Dyspnea Dyspnea Gouty arthritis Neurogenic claudication due to lumbar spinal stenosis CLEVE on CPAP Tracheitis Surgical History History of cholecystectomy History of eyelid surgery History of knee replacement Status post cervical spinal fusion Family History Father HTN (hypertension) Stroke Diabetes Mother Atrial fibrillation HTN (hypertension) Social History Alcohol intake: never Patient Tobacco Use Status: Former Tobacco user Tobacco use type: Cigarette Years Smoked: 20 years Second Hand Smoke Exposure: No Physical Exam Vital Signs: Last Vital Signs Pulse 101 H 12/05/23 08:36 Resp 16 12/05/23 08:36 BP 144/69 H 12/05/23 08:36 BMI result Body Mass Index 44.8 General: Appears afebrile. Alert and oriented. Mood and affect appropriate. Follows and participates in conversation appropriately. Respiratory effort is unlabored. Able to transition from sit to stand unassisted. Ambulates with bilaterally normal heel strike and toe off. There is a mild dermatitis rash under the dressing area. Assessment & Plan Assessment & Plan (1) Intractable back pain: Code(s): M54.9 - Dorsalgia, unspecified Category: Medical (2) Lumbar spondylosis: Code(s): M47.816 - Spondylosis without myelopathy or radiculopathy, lumbar region Category: Medical (3) Chronic pain syndrome: Comment: Requiring narcotic use Code(s): G89.4 - Chronic pain syndrome Category: Medical Plan Recommended to keep the device on for now. Patient may turn it off if she feels overstimulated or aching from the stimulation. She endorsed appropriate paresthesia sensations from the device. It appears she may have an ongoing allergic reaction at the dressing site Advised to use fluticasone spray and see if this helps with the rash. She will call her pharmacist to confirm the stalk for the Vicodin for next month and let us know if she would like us to prescribe the 5 mg t.i.d. or the 7.5 mg b.i.d. pill. Scribed for Dr. Scherer by [place] medical device assembler, on 12/05/2023. I, Dr. Scherer, have personally reviewed and agree with the information entered by the scribe. Coding Level of Care Code Est Pt Level 4 (47036) Diagnoses Intractable back pain M54.9 Lumbar spondylosis M47.816 Chronic pain syndrome G89.4
[2023-12-05 08:36] VITALS: BP 144/69; PULSE 101; RESP 16; BMI 44.8
== END 2023-12-05 09:10 | disposition home or self-care (01) ==
PROVIDERS: PCP Internal Medicine; Visit Provider Internal Medicine
DX: G89.4 Chronic pain syndrome (principal); M54.9 Dorsalgia, unspecified; M47.816 Spondylosis without myelopathy or radiculopathy, lumbar region; Z79.891 Long term (current) use of opiate analgesic
CPT/HCPCS: 99214

== ENCOUNTER → 2023-12-05 08:25 | Outpatient (BNVA) | payer MEDICARE, OTHER, SELFPAY | PROVIDERS: PCP Internal Medicine; Visit Provider Internal Medicine | DX: Z51.81 Encounter for therapeutic drug level monitoring (principal); M54.9 Dorsalgia, unspecified; M47.816 Spondylosis without myelopathy or radiculopathy, lumbar region | CPT/HCPCS: 99212 ==

== ENCOUNTER → 2024-01-10 13:01 | Outpatient (BNVA) | payer MEDICARE, OTHER, SELFPAY | PROVIDERS: PCP Internal Medicine; Visit Provider Registered Nurse Emergency ==

== ENCOUNTER → 2024-01-23 08:22 | Outpatient (BNVA) | payer MEDICARE, OTHER, SELFPAY | PROVIDERS: PCP Internal Medicine; Visit Provider Internal Medicine ==

== ENCOUNTER 2024-02-19 11:55 | Outpatient (REF) | payer MEDICARE, OTHER, SELFPAY ==
[2024-02-19 12:01] LABS: MANUAL DIFF FLAG NO
[2024-02-19 12:16] LABS: Appearance Urine Clear; Basophils Percent Auto 0.3 % (0-2); Color Urine Yellow; Eosinophils Absolute Auto 0.2 X10*3/uL (0.0-0.4); Eosinophils Percent Auto 1.9 % (0-4); Glucose Urine UA Negative (Negative); Hematocrit 38.5 % (37.0-47.0); Hemoglobin 12.3 g/dl (12.0-16.0); Imm Gran Abs Auto 0.05 X10*3/uL (0.00-0.03); Imm Gran Pct Auto 0.5 % (0.0-0.4); Leukocyte Esterase Urine Small (1+) (Negative); Lymphocytes Absolute Auto 2.7 X10*3/uL (1.2-4.9); Lymphocytes Percent Auto 26.7 % (20-40); Mean Corpuscular HGB Conc 31.9 g/dl (31.0-35.0); Mean Corpuscular Volume 100.3 fL (80.0-98.0); Mean Platelet Volume 10.8 fL (9.4-12.3); Monocytes Absolute Auto 0.9 X10*3/uL (0.1-1.2); Monocytes Percent Auto 8.6 % (2-11); Neutrophils Absolute Auto 6.4 x10*3/uL (2.0-8.3); Nitrite Urine Negative (Negative); Platelet Count 316 X10*3/uL (160-400); Red Blood Count 3.84 X10*6/uL (4.20-5.50); Red Cell Distribution Width 14.9 % (11.0-16.0); UMIC TRIGGER UACC YES; Urine Blood Negative (Negative); Urine Ketones Negative (Negative); Urine Protein Negative (Neg-Trace); White Blood Count 10.3 X10*3/uL (4.8-10.8)
[2024-02-19 12:29] LABS: Estimated Average Glucose 123 mg/dL; Hemoglobin A1C 130.4492 umol/L; Hemoglobin A1c % 5.9 % (<6.0); Total Hemoglobin (HGBA1C) 3194.0172 umol/L
[2024-02-19 12:31] LABS: Bacteria Urine 1+ (None Seen); RBC Urine 0-2 /HPF (0-2); UACC Culture Trigger YES
[2024-02-19 12:39] LABS: Alanine Aminotransferase 23 U/L (0-31); Albumin Level 3.8 g/dL (3.5-5.0); Alkaline Phosphatase 83 U/L (39-117); Anion Gap 16 (12-20); Aspartate Amino Transferase 36 U/L (5-31); Bilirubin Total 0.5 mg/dL (0.0-1.0); Blood Urea Nitrogen 28 mg/dL (9-16); Calcium 10.4 mg/dL (8.4-10.2); Carbon Dioxide 27 mmol/L (22-29); Chloride 102 mmol/L (96-108); Cholesterol 137 mg/dL (<200); Estimated Glomerular Filt Rate 36; Glucose Fasting 117 mg/dL (60-99); HDL Cholesterol 42 mg/dL (>40); Iron 84 mcg/dL (30-160); LDL Cholesterol Calculated 69 mg/dL (<100); Percent Iron Saturation 33 % (15-50); Potassium 4.4 mmol/L (3.3-5.1); Sodium 141 mmol/L (135-145); Total Iron Binding Capacity 256 mcg/dL (228-428); Total Protein 7.5 g/dL (6.5-8.0); Triglycerides 134 mg/dL (<150); Unsaturated Iron Binding 172 ug/dL
[2024-02-19 12:56] LABS: TSH reflex Free T4 3.76 uIU/mL (0.32-4.0); Vitamin D 25-OH Total 37.7 ng/mL (>30)
[2024-02-19 13:06] LABS: Creatinine Urine 88.42 mg/dL; Microalbum/Creatinine Ratio Ur 36.1 ug/mg cr (<30)
== END 2024-02-19 11:56 | disposition home or self-care (01) ==
LOC: HO.LNP 11:55
PROVIDERS: Visit Provider Internal Medicine
DX: E11.9 Type 2 diabetes mellitus without complications (principal); E03.9 Hypothyroidism, unspecified; I10 Essential (primary) hypertension; E55.9 Vitamin D deficiency, unspecified; D50.0 Iron deficiency anemia secondary to blood loss (chronic)
CPT/HCPCS: 80053; 80061; 81001; 82043; 82306; 82570; 83036; 83540; 84443; 85025; 87086

== ENCOUNTER 2024-02-20 09:07 | Outpatient (AMB) | payer MEDICARE, OTHER, SELFPAY ==
--- NOTE | 2024-02-20 09:13 | A.OFFVIS_ITS ---
Vital Signs 02/20/24 09:14 Height 5 ft 4 in Weight 260 lb BMI 44.6 BP 120/68 Blood Pressure Location Rt radial Position Sitting Respiration 16 Pulse 123 H Pulse Source Pulse Oximeter Pulse Oximetry (%) 90 L Oxygen Delivery Method Room Air Intake Visit Reasons: PILL COUNT Intake Note: Pt states she last took vicodin 02/20/24 @ 6:45am Allergies cephalexin [From Keflex] Allergy (Severe, Verified 02/20/24 09:23) Itching pravastatin [Pravachol] Allergy (Severe, Verified 02/20/24 09:23) cramps bacitracin Adverse Reaction (Severe, Verified 02/20/24 09:23) eye swelling dexamethasone [TobraDex] Adverse Reaction (Severe, Verified 02/20/24 09:23) redness swelling tobramycin [TobraDex] Adverse Reaction (Severe, Verified 02/20/24 09:23) redness swelling Sulfa (Sulfonamide Antibiotics) Adverse Reaction (Intermediate, Verified 02/20/24 09:23) GI upset atorvastatin [From Lipitor] Adverse Reaction (Verified 02/20/24 09:23) Unknown Beef Containing Products Adverse Reaction (Verified 02/20/24 09:23) Unknown erythromycin base Adverse Reaction (Verified 02/20/24 09:23) Unknown Penicillins [PCN] Adverse Reaction (Verified 02/20/24 09:23) Unknown sulfacetamide [From Sulfacet-R] Adverse Reaction (Verified 02/20/24 09:23) Unknown sulfur [From Sulfacet-R] Adverse Reaction (Verified 02/20/24 09:23) Unknown topiramate [From Topamax] Adverse Reaction (Verified 02/20/24 09:23) Unknown Medication List - Last Reconciled 02/20/24 by Naz Simpson LPN albuterol sulfate 90 mcg/actuation 2 puffs PO Q4H albuterol sulfate 2.5 mg (3 mL) inhalation Q4H PRN allopurinol 100 mg PO DAILY aspirin 81 mg PO DAILY atorvastatin 20 mg PO DAILY azelastine-fluticasone 137-50 mcg/spray 1 spray intranasal BID 30 days bepotastine besilate 1.5% (Bepreve) 1 drp ophthalmic (eye) DAILY PRN calcitriol mcg PO chlorhexidine gluconate 0.12% 15 mL buccal DAILY 30 days cholecalciferol (vitamin D3) (Vitamin D3) 25 mcg PO DAILY doxycycline hyclate 100 mg PO BID 10 days duloxetine 60 mg PO DAILY epinephrine 0.3 mL IM ONCE PRN ferrous sulfate (FeroSul) 325 mg PO DAILY fluticasone propionate 220 mcg/actuation 2 puffs inhalation BID furosemide (Lasix) 80 mg PO BID 30 days gabapentin 100 mg PO .AM gabapentin 400 mg PO BEDTIME hydrocodone-acetaminophen 5-300 mg 1 tab PO Q8H PRN 30 days insulin glargine units subcut levothyroxine 75 mcg PO DAILY meclizine 25 mg PO BID PRN mepolizumab 100 mg subcut Q4W nystatin 1 appl topical BID omeprazole 20 mg PO DAILY potassium chloride ER 10 mEq PO BID Saccharomyces boulardii (Florastor) 250 mg PO BID sitagliptin phosphate 100 mg PO DAILY tiotropium bromide 1.25 mcg/actuation inhalation tirzepatide (Mounjaro) 2.5 mg subcut QWEEK trazodone 50 mg PO BEDTIME PRN valsartan (Diovan) 80 mg PO DAILY HPI HPI PILL COUNT: Details: 78-year-old female who presents today to the office for pill count. 42?pills were expected and?44.5 were presented. She inquired about her dosing and refill status. She had stimulator placed in November 2023. She still continues to experience pain in her lower back that radiates down to her leg. She has difficulty walking and climbing stairs. She reports pain when leaning forward. She inquired about receiving injection or doing physical therapy will help for the pain. She also reports neck pain that radiates down to her shoulder blades. Past Procedures: 11/29/23: Lumbar Medial Branch Nerve Stimulation Lead Placement, SPR (Sprint) System, Left L3: Therapy ongoing 10/25/23: Left C7-T1 parasagittal interlaminar MARIZA: Resolution of forearm and finger pain 08/23/23: Interlaminar epidural steroid injection, L3/4, Left parasaggital: 40- 50% relief for 3 days. 05/31/23: Hip Intra-articular Injection, fluoroscopy guided, Left: 70% relief. 05/14/23: Left glenohumeral joint steroid injection, ultrasound guided: 70% relief. 09/06/22: Hip Intra-articular Injection, fluoroscopy guided, Left: >50% relief. : Right glenohumeral steroid injection: >50% relief. 05/10/22: Right glenohumeral corticosteroid injection: >50% relief. 04/19/22: Intra-articular left glenohumeral injection: >50% relief. 02/22/22: Diagnostic bilateral suprascapular nerve block - 0% relief bilaterally 02/08/22: Bilateral Ischial Bursa /left GTB- Good relief with better mobility 11/25/21: Interlaminar Midline L3-L4 MARIZA ? Good relief for leg pain, able to walk more and better. 10/26/21: Bilateral L3-L4-L5 Diagnostic MBBs ? 30% relief for 2 days. [facility] Medical History Arthritis of both glenohumeral joints Asthma Chronic pain syndrome Chronic restrictive lung disease Dyspnea Dyspnea Gouty arthritis Neurogenic claudication due to lumbar spinal stenosis CLEVE on CPAP Tracheitis Surgical History History of cholecystectomy History of eyelid surgery History of knee replacement Status post cervical spinal fusion Family History Father HTN (hypertension) Stroke Diabetes Mother Atrial fibrillation HTN (hypertension) Social History Alcohol intake: never Patient Tobacco Use Status: Former Tobacco user Tobacco use type: Cigarette Years Smoked: 20 years Second Hand Smoke Exposure: No Review of Systems Const All systems reviewed & are unremarkable except as noted in HPI and below Physical Exam Vital Signs: Last Vital Signs Pulse 123 H 02/20/24 09:14 Resp 16 02/20/24 09:14 BP 120/68 02/20/24 09:14 Pulse Ox 90 L 02/20/24 09:14 Oxygen Delivery Method Room Air 02/20/24 09:14 BMI result Body Mass Index 44.6 General: Appears afebrile. Alert and oriented. Mood and affect appropriate. Follows and participates in conversation appropriately. Respiratory effort is unlabored. Able to transition from sit to stand unassisted. Ambulates with bilaterally normal heel strike and toe off. Results Reviewed Results Reviewed: No imaging is available for review. Assessment & Plan Assessment & Plan (1) Cervical radiculopathy: Code(s): M54.12 - Radiculopathy, cervical region Category: Medical (2) Lumbar stenosis with neurogenic claudication: Code(s): M48.062 - Spinal stenosis, lumbar region with neurogenic claudication Category: Medical (3) Bilateral hip pain: Code(s): M25.551 - Pain in right hip; M25.552 - Pain in left hip Category: Medical (4) Bilateral shoulder pain: Code(s): M25.511 - Pain in right shoulder; M25.512 - Pain in left shoulder Category: Medical Plan 42?pills were expected and 44.5?pills were presented. A refill of hydrocodone- acetaminophen 5-300 mg was provided for the patient starting 03/05/24. Pill count and Mass PAT were consistent. The patient will follow up in four weeks for pill count on the nursing schedule. Discussed temporary peripheral nerve stimulator vs. glenohumeral injections as possible treatment option for her shoulder pain. We will schedule her for a left glenohumeral shoulder injection, US guided. Discussed the risks and benefits of the procedure with the patient in detail. All questions were answered. The patient is on board with the plan. Justification for interventional therapy: ? Patient with average pain > 6/10 ? Patient has exhausted conservative therapy ? Patient unable to tolerate physical therapy due to pain. ? Previous injection provided >70% relief x > 3 months. . Patient has a good understanding of their pain condition and has appropriate mental and social support Scribed for Dr. Scherer by Sae Hurst, medical specialist, on 02/20/2024. I, Dr. Scherer, have personally reviewed and agree with the information entered by the scribe. Medications: Refilled hydrocodone-acetaminophen 5-300 mg Partial Fill upon patient request. 1 tab PO Q8H PRN 90 tabs 0RF pain 30 days Coding Level of Care Code New Pt Level 4 (68464) Diagnoses Cervical radiculopathy M54.12 Lumbar stenosis with neurogenic claudication M48.062 Bilateral hip pain M25.551; M25.552 Bilateral shoulder pain M25.511; M25.512
[2024-02-20 09:14] VITALS: BP 120/68; PULSE 123; RESP 16; O2SAT 90; BMI 44.6
== END 2024-02-20 09:57 | disposition home or self-care (01) ==
PROVIDERS: PCP Internal Medicine; Visit Provider Internal Medicine
DX: M54.12 Radiculopathy, cervical region (principal); M48.062 Spinal stenosis, lumbar region with neurogenic claudication; M25.551 Pain in right hip; M25.552 Pain in left hip; M25.511 Pain in right shoulder; M25.512 Pain in left shoulder
CPT/HCPCS: 99214

== ENCOUNTER → 2024-02-20 09:07 | Outpatient (BNVA) | payer MEDICARE, OTHER, SELFPAY | PROVIDERS: PCP Internal Medicine; Visit Provider Internal Medicine | DX: M54.12 Radiculopathy, cervical region (principal); M48.062 Spinal stenosis, lumbar region with neurogenic claudication; M25.551 Pain in right hip; M25.552 Pain in left hip; M25.511 Pain in right shoulder; M25.512 Pain in left shoulder | CPT/HCPCS: 99212 ==

== ENCOUNTER 2024-02-28 12:44 | Outpatient (REF) | payer MEDICARE, OTHER, SELFPAY ==
--- NOTE | ~2024-02-28 | MM_ITS ---
EXAMINATION: BONE DENSITOMETRY CLINICAL INDICATION: Age-related osteoporosis without current pathological fracture. COMPARISON: This is the patient's baseline examination. TECHNIQUE: Using a [employer] DXA System (software version: 13.1) manufactured by [employer], dual-energy x-ray absorptiometry was performed of the lumbar spine and left hip. The images are of good technical quality. Summary results are attached. FINDINGS: AP SPINE L1-L4: BMD 1.399 g/cm2, Z-score 2.5, T-score 1.8, normal. LEFT FEMUR, NECK: BMD 0.712 g/cm2, Z-score -1.0, T-score -2.3, osteopenia. LEFT FEMUR, TOTAL: BMD 0.888 g/cm2, Z-score 0.2, T-score -1.0, normal. IDENTIFIED RISK FACTORS: Height loss. Menopause. HISTORY OF FRACTURE: None listed. MEDICATIONS: Calcium supplement and/or multivitamin. Vitamin D. MM/XR DEXA axial skeleton IMPRESSION: 1. DIAGNOSIS: Osteopenia based on the lowest T-score value of -2.3 in the femoral neck applying World Health Organization criteria. 2. 10-YEAR FRACTURE RISK PREDICTION, FRAX: Major osteoporotic fracture (clinical spine, forearm, hip or shoulder) 14.9%. Hip fracture 4.5%. 3. Treatment Recommendations: NOF guidelines recommend consideration for treatment in postmenopausal women and men age 50 and older presenting with the following: -A hip or vertebral (clinical or morphometric) fracture. -T-score less than or equal to -2.5 at the femoral neck or spine after appropriate evaluation to exclude secondary causes. -Low bone mass at the hip or spine and a 10-year fracture probability by FRAX of greater than or equal to 3% for hip fracture or greater than or equal to 20% for major osteoporotic fracture based on the [place] adapted WHO algorithm. 4. Other Recommendations: All treatment decisions require clinical judgment and consideration of individual patient factors, including patient preferences, comorbidities, previous drug use, risk factors not captured in the FRAX model (e.g. frailty, falls, vitamin D deficiency, increased bone turnover, interval significant decline in bone density) and possible under or overestimation of fracture risk by FRAX. Additional medical evaluation for secondary cause of low bone mineral density may be appropriate. FUTURE SCAN RECOMMENDATION: People with diagnosed cases of osteoporosis or at high risk for fracture should have regular bone mineral density tests. For patients eligible for Medicare, routine testing is allowed once every 2 years. The testing frequency can be increased to one year for patients who have rapidly progressing disease, those who are receiving or discontinuing medical therapy to restore bone mass, or have additional risk factors. Electronically signed by: Serjio Castañeda MD 02/29/2024 12:19 PM EDT
== END 2024-02-28 12:45 | disposition home or self-care (01) ==
LOC: HO.MAMMO 12:44
PROVIDERS: PCP Internal Medicine; Visit Provider Internal Medicine
DX: M81.0 Age-related osteoporosis without current pathological fracture (principal)
CPT/HCPCS: 77080

== ENCOUNTER 2024-03-21 08:51 | Outpatient (AMB) | payer MEDICARE, OTHER, SELFPAY ==
--- NOTE | 2024-03-21 09:01 | A.OFFVIS_ITS ---
Vital Signs 03/21/24 09:02 Height 5 ft 4 in Weight 260 lb BMI 44.6 BP 107/63 Blood Pressure Location Lt radial Position Sitting Respiration 17 Pulse 73 Pulse Source Pulse Oximeter Intake Visit Reasons: Pill Count/left glenohumeral inj Allergies cephalexin [From Keflex] Allergy (Severe, Verified 03/21/24 09:06) Itching pravastatin [Pravachol] Allergy (Severe, Verified 03/21/24 09:06) cramps bacitracin Adverse Reaction (Severe, Verified 03/21/24 09:06) eye swelling dexamethasone [TobraDex] Adverse Reaction (Severe, Verified 03/21/24 09:06) redness swelling tobramycin [TobraDex] Adverse Reaction (Severe, Verified 03/21/24 09:06) redness swelling Sulfa (Sulfonamide Antibiotics) Adverse Reaction (Intermediate, Verified 03/21/24 09:06) GI upset atorvastatin [From Lipitor] Adverse Reaction (Verified 03/21/24 09:06) Unknown Beef Containing Products Adverse Reaction (Verified 03/21/24 09:06) Unknown erythromycin base Adverse Reaction (Verified 03/21/24 09:06) Unknown Penicillins [PCN] Adverse Reaction (Verified 03/21/24 09:06) Unknown sulfacetamide [From Sulfacet-R] Adverse Reaction (Verified 03/21/24 09:06) Unknown sulfur [From Sulfacet-R] Adverse Reaction (Verified 03/21/24 09:06) Unknown topiramate [From Topamax] Adverse Reaction (Verified 03/21/24 09:06) Unknown Medication List - Last Reconciled 03/21/24 by Naz Simpson LPN albuterol sulfate 90 mcg/actuation 2 puffs PO Q4H albuterol sulfate 2.5 mg (3 mL) inhalation Q4H PRN allopurinol 100 mg PO DAILY aspirin 81 mg PO DAILY atorvastatin 20 mg PO DAILY azelastine-fluticasone 137-50 mcg/spray 1 spray intranasal BID 30 days bepotastine besilate 1.5% (Bepreve) 1 drp ophthalmic (eye) DAILY PRN calcitriol mcg PO chlorhexidine gluconate 0.12% 15 mL buccal DAILY 30 days cholecalciferol (vitamin D3) (Vitamin D3) 25 mcg PO DAILY doxycycline hyclate 100 mg PO BID 10 days duloxetine 60 mg PO DAILY epinephrine 0.3 mL IM ONCE PRN ferrous sulfate (FeroSul) 325 mg PO DAILY fluticasone propionate 220 mcg/actuation 2 puffs inhalation BID furosemide (Lasix) 80 mg PO BID 30 days gabapentin 100 mg PO .AM gabapentin 400 mg PO BEDTIME hydrocodone-acetaminophen 5-300 mg 1 tab PO Q8H PRN 30 days insulin glargine units subcut levothyroxine 75 mcg PO DAILY meclizine 25 mg PO BID PRN mepolizumab 100 mg subcut Q4W nystatin 1 appl topical BID omeprazole 20 mg PO DAILY potassium chloride ER 10 mEq PO BID Saccharomyces boulardii (Florastor) 250 mg PO BID sitagliptin phosphate 100 mg PO DAILY tiotropium bromide 1.25 mcg/actuation inhalation tirzepatide (Mounjaro) 2.5 mg subcut QWEEK trazodone 50 mg PO BEDTIME PRN valsartan (Diovan) 80 mg PO DAILY HPI HPI Pill Count/left glenohumeral inj: Details: 72-year-old female who presents to the office today for pill count and left glenohumeral injection. 48 pills were expected, and 48 pills were presented. Patient had to fill hydrocodone-acetaminophen 5-300 mg pills last month due to nonavailability of the other strength. For her next refills, requests 7.5-325 milligram pills. Denies any recent cough, cold, infection, fever or other significant changes in medical history since last office visit. Past Procedures: 11/29/23: Lumbar Medial Branch Nerve Stimulation Lead Placement, SPR (Sprint) System, Left L3: Therapy ongoing 10/25/23: Left C7-T1 parasagittal interlaminar MARIZA: Resolution of forearm and finger pain 08/23/23: Interlaminar epidural steroid injection, L3/4, Left parasaggital: 40- 50% relief for 3 days. 05/31/23: Hip Intra-articular Injection, fluoroscopy guided, Left: 70% relief. 05/14/23: Left glenohumeral joint steroid injection, ultrasound guided: 70% relief. 09/06/22: Hip Intra-articular Injection, fluoroscopy guided, Left: >50% relief. : Right glenohumeral steroid injection: >50% relief. 05/10/22: Right glenohumeral corticosteroid injection: >50% relief. 04/19/22: Intra-articular left glenohumeral injection: >50% relief. 02/22/22: Diagnostic bilateral suprascapular nerve block - 0% relief bilaterally 02/08/22: Bilateral Ischial Bursa /left GTB- Good relief with better mobility 11/25/21: Interlaminar Midline L3-L4 MARIZA ? Good relief for leg pain, able to walk more and better. 10/26/21: Bilateral L3-L4-L5 Diagnostic MBBs ? 30% relief for 2 days. [facility]LY [facility] Medical History Arthritis of both glenohumeral joints Asthma Chronic pain syndrome Chronic restrictive lung disease Dyspnea Dyspnea Gouty arthritis Neurogenic claudication due to lumbar spinal stenosis CLEVE on CPAP Tracheitis Surgical History History of cholecystectomy History of eyelid surgery History of knee replacement Status post cervical spinal fusion Family History Father HTN (hypertension) Stroke Diabetes Mother Atrial fibrillation HTN (hypertension) Social History Alcohol intake: never Patient Tobacco Use Status: Former Tobacco user Tobacco use type: Cigarette Years Smoked: 20 years Second Hand Smoke Exposure: No Review of Systems Const All systems reviewed & are unremarkable except as noted in HPI and below Physical Exam Vital Signs: Last Vital Signs Pulse 73 03/21/24 09:02 Resp 17 03/21/24 09:02 BP 107/63 03/21/24 09:02 BMI result Body Mass Index 44.6 General: Appears afebrile. Alert and oriented. Mood and affect appropriate. Follows and participates in conversation appropriately. Respiratory effort is unlabored. Able to transition from sit to stand unassisted. Ambulates with bilaterally normal heel strike and toe off. Office Procedures AMB Joint Injection/Aspiration Joint Injection/Aspiration Details: Left glenohumeral joint steroid injection, ultrasound guided. Primary Site: left shoulder Injected: 40 mg of, Kenalog, with 4 mL of, 1% lidocaine with epinephrine 1:100,000 and other (ropivacaine) Approach Used: posterolateral Procedure: The patient tolerated the procedure well Coding Details: An image of the ultrasound guided injection was taken and saved to the patient's permanent record. - Glenohumeral with ultrasound guidance Procedure code (CPT) selection complete Results Reviewed Results Reviewed: No imaging is available for review. Assessment & Plan Assessment & Plan (1) Intractable back pain: Code(s): M54.9 - Dorsalgia, unspecified Category: Medical (2) Lumbar stenosis with neurogenic claudication: Code(s): M48.062 - Spinal stenosis, lumbar region with neurogenic claudication Category: Medical (3) Scoliosis of lumbar region due to degenerative disease of spine in adult: Code(s): M41.56 - Other secondary scoliosis, lumbar region Category: Medical (4) Bilateral shoulder pain: Code(s): M25.511 - Pain in right shoulder; M25.512 - Pain in left shoulder Category: Medical Plan 40 pills were expected, and 48 pills were presented. Pill count and Mass PAT were consistent. A refill of hydrocodone-acetaminophen 5-300 mg was provided to the patient, starting 04/06/24. Pill count is consistent. The patient will follow up in 4 weeks for pill count and refill. Patient is status post left glenohumeral joint steroid injection, ultrasound guided. Patient tolerated procedure well and was discharged home in stable condition with discharge instructions. All questions were answered. Scribed for Dr. Scherer by Jax Mcdaniel medical record transcriber, on 03/21/2024. I, Dr. Scherer, have personally reviewed and agree with the information entered by the scribe. Medications: New hydrocodone-acetaminophen 7.5-325 mg Partial Fill upon patient request. 1 tab PO BID PRN 60 tabs 0RF pain Discontinued hydrocodone-acetaminophen 5-300 mg Partial Fill upon patient request. Discontinued Reason: No Longer Medically Relevant 1 tab PO Q8H 30 days PRN 90 tabs 0RF pain Coding Level of Care Code Est Pt Level 4 (99105) Diagnoses Intractable back pain M54.9 Lumbar stenosis with neurogenic claudication M48.062 Scoliosis of lumbar region due to degenerative disease of spine in adult M41.56 Bilateral shoulder pain M25.511; M25.512 CPT Codes Coding - Joint 8: - Glenohumeral with ultrasound guidance ([id number])
[2024-03-21 09:02] VITALS: BP 107/63; PULSE 73; RESP 17; BMI 44.6
== END 2024-03-21 09:34 | disposition home or self-care (01) ==
PROVIDERS: PCP Internal Medicine; Visit Provider Internal Medicine
DX: M25.512 Pain in left shoulder (principal)
CPT/HCPCS: 20611; 99214

== ENCOUNTER → 2024-03-21 08:51 | Outpatient (BNVA) | payer MEDICARE, OTHER, SELFPAY | PROVIDERS: PCP Internal Medicine; Visit Provider Internal Medicine | DX: M25.511 Pain in right shoulder (principal); M25.512 Pain in left shoulder; M41.56 Other secondary scoliosis, lumbar region; M48.062 Spinal stenosis, lumbar region with neurogenic claudication; M54.9 Dorsalgia, unspecified | CPT/HCPCS: 20611; 99212; J2795; J3301 ==

== ENCOUNTER 2024-03-31 09:51 | Outpatient (AMB) | payer MEDICARE, OTHER, SELFPAY ==
--- NOTE | 2024-03-31 10:01 | A.OFFVIS_ITS ---
Vital Signs 03/31/24 10:04 Height 5 ft 2.56 in Weight 247 lb 12.793 oz BMI 44.5 BP 128/68 Blood Pressure Location Rt brachial Position Sitting Pulse 76 Pulse Source Pulse Oximeter Intake Visit Reasons: Age-related osteoporosis Intake Note: New patient referred by PCP for Osteoporosis. 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 Accompanied by: Son Allergies cephalexin [From Keflex] Allergy (Severe, Verified 03/31/24 10:05) Itching pravastatin [Pravachol] Allergy (Severe, Verified 03/31/24 10:05) cramps bacitracin Adverse Reaction (Severe, Verified 03/31/24 10:05) eye swelling dexamethasone [TobraDex] Adverse Reaction (Severe, Verified 03/31/24 10:05) redness swelling tobramycin [TobraDex] Adverse Reaction (Severe, Verified 03/31/24 10:05) redness swelling Sulfa (Sulfonamide Antibiotics) Adverse Reaction (Intermediate, Verified 03/31/24 10:05) GI upset atorvastatin [From Lipitor] Adverse Reaction (Verified 03/31/24 10:05) Unknown Beef Containing Products Adverse Reaction (Verified 03/31/24 10:05) Unknown erythromycin base Adverse Reaction (Verified 03/31/24 10:05) Unknown Penicillins [PCN] Adverse Reaction (Verified 03/31/24 10:05) Unknown sulfacetamide [From Sulfacet-R] Adverse Reaction (Verified 03/31/24 10:05) Unknown sulfur [From Sulfacet-R] Adverse Reaction (Verified 03/31/24 10:05) Unknown topiramate [From Topamax] Adverse Reaction (Verified 03/31/24 10:05) Unknown HPI Comments Details: 78 YO Female with ] is seen in consultation at the request of PCP for Osteoporosis. First diagnosed in just recently . Never Received treatment in the past No history of pathologic fracture or ONJ. Has several servings of dietary calcium per day in the form of cheese, broccoli . Takes Calcium supplement ? mg daily in MVI Takes 1000 IU of Vitamin D daily. Takes PPI, anticoagulant, antiepileptic or glucocorticoid medication. 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 UTD on dental cleanings and sees dentist every 6 months. No planned upcoming dental work or extractions. DXA dated 02/28/2024:TECHNIQUE: Using a [employer] DXA System (software version: 13.1) manufactured by [employer], dual-energy x-ray absorptiometry was performed of the lumbar spine and left hip. The images are of good technical quality. Summary results are attached. FINDINGS: AP SPINE L1-L4: BMD 1.399 g/cm2, Z-score 2.5, T-score 1.8, normal. LEFT FEMUR, NECK: BMD 0.712 g/cm2, Z-score -1.0, T-score -2.3, osteopenia. LEFT FEMUR, TOTAL: BMD 0.888 g/cm2, Z-score 0.2, T-score -1.0, normal. IDENTIFIED RISK FACTORS: Height loss. Menopause. HISTORY OF FRACTURE: None listed. MEDICATIONS: Calcium supplement and/or multivitamin. Vitamin D. MM/XR DEXA axial skeleton IMPRESSION: 1. DIAGNOSIS: Osteopenia based on the lowest T-score value of -2.3 in the femoral neck applying World Health Organization criteria. Labs: [facility] Medical History Arthritis of both glenohumeral joints Asthma Chronic pain syndrome Chronic restrictive lung disease Dyspnea Dyspnea Gouty arthritis Neurogenic claudication due to lumbar spinal stenosis CLEVE on CPAP Tracheitis Surgical History Status post cervical spinal fusion History of eyelid surgery History of knee replacement History of cholecystectomy Family History Father HTN (hypertension) Stroke Diabetes Mother Atrial fibrillation HTN (hypertension) Social History Alcohol intake: never Patient Tobacco Use Status: Former Tobacco user Tobacco use type: Cigarette Years Smoked: 20 years Second Hand Smoke Exposure: No Physical Exam Vital Signs: Last Vital Signs Pulse 76 03/31/24 10:04 BP 128/68 03/31/24 10:04 BMI result Body Mass Index 44.5 There are no Cushingoid features. Absence of blue sclera. Absence of kyphosis. Thyroid gland is of nl size and weighs 15 gms. There are no thyroid nodules palpated. Lungs CTA. Heart S1 S2 Reg R/R Abdominal exam benign. Muscle strength 5/5 . Examination of spine reveals absence of tenderness on palpation Assessment & Plan Assessment & Plan (1) Osteoporosis: Code(s): M81.0 - Age-related osteoporosis without current pathological fracture Category: Medical Plan: This is a 78-year-old white female with a history of low bone mass in the setting of CKD stage 3. Most secondary workup has been completed. Calcium was slightly elevated on last blood draw . But recheck calcium, albumin phosphorus and PTH level. Will continue vitamin-D repletion. We will have patient follow up with Dr. Cohen in Nephrology to maximize CKD-BMD. Would not use pharmacologic therapy for low bone mass at this point but if bone density deteriorate on calcitriol could consider use of Prolia oral bisphosphonate in future Orders: Orders Calcium Today M81.0 - Age-related osteoporosis without current pathological fracture Albumin Level Today M81.0 - Age-related osteoporosis without current pathological fracture Phosphorus Today M81.0 - Age-related osteoporosis without current pathological fracture Parathyroid Hormone Intact Today M81.0 - Age-related osteoporosis without current pathological fracture Coding Level of Care Code New Pt Level 4 (07972) Diagnoses Osteoporosis M81.0
[2024-03-31 10:04] VITALS: BP 128/68; PULSE 76; BMI 44.5
== END 2024-03-31 11:21 | disposition home or self-care (01) ==
PROVIDERS: PCP Internal Medicine; Visit Provider Internal Medicine Endocrinology, Diabetes & Metabolism
DX: M81.0 Age-related osteoporosis without current pathological fracture (principal)
CPT/HCPCS: 99204

== ENCOUNTER → 2024-03-31 09:51 | Outpatient (BNVA) | payer MEDICARE, OTHER, SELFPAY | PROVIDERS: PCP Internal Medicine; Visit Provider Internal Medicine Endocrinology, Diabetes & Metabolism | DX: M81.0 Age-related osteoporosis without current pathological fracture (principal); Z78.0 Asymptomatic menopausal state | CPT/HCPCS: 99202 ==

== ENCOUNTER 2024-04-18 09:24 | Outpatient (AMB) | payer MEDICARE, OTHER, SELFPAY ==
--- NOTE | 2024-04-18 10:03 | A.OFFVIS_ITS ---
Vital Signs 04/18/24 10:04 Height 5 ft 2.56 in BP 127/62 Blood Pressure Location Lt radial Position Sitting Respiration 16 Pulse 83 Pulse Source Pulse Oximeter Pulse Oximetry (%) 94 Oxygen Delivery Method Room Air Intake Visit Reasons: Pill Count Allergies cephalexin [From Keflex] Allergy (Severe, Verified 04/18/24 10:07) Itching pravastatin [Pravachol] Allergy (Severe, Verified 04/18/24 10:07) cramps bacitracin Adverse Reaction (Severe, Verified 04/18/24 10:07) eye swelling dexamethasone [TobraDex] Adverse Reaction (Severe, Verified 04/18/24 10:07) redness swelling tobramycin [TobraDex] Adverse Reaction (Severe, Verified 04/18/24 10:07) redness swelling Sulfa (Sulfonamide Antibiotics) Adverse Reaction (Intermediate, Verified 04/18/24 10:07) GI upset atorvastatin [From Lipitor] Adverse Reaction (Verified 04/18/24 10:07) Unknown Beef Containing Products Adverse Reaction (Verified 04/18/24 10:07) Unknown erythromycin base Adverse Reaction (Verified 04/18/24 10:07) Unknown Penicillins [PCN] Adverse Reaction (Verified 04/18/24 10:07) Unknown sulfacetamide [From Sulfacet-R] Adverse Reaction (Verified 04/18/24 10:07) Unknown sulfur [From Sulfacet-R] Adverse Reaction (Verified 04/18/24 10:07) Unknown topiramate [From Topamax] Adverse Reaction (Verified 04/18/24 10:07) Unknown Medication List - Last Reconciled 04/18/24 by Naz Simpson LPN albuterol sulfate 90 mcg/actuation 2 puffs PO Q4H albuterol sulfate 2.5 mg (3 mL) inhalation Q4H PRN allopurinol 100 mg PO DAILY aspirin 81 mg PO DAILY atorvastatin 20 mg PO DAILY azelastine-fluticasone 137-50 mcg/spray 1 spray intranasal BID 30 days bepotastine besilate 1.5% (Bepreve) 1 drp ophthalmic (eye) DAILY PRN calcitriol mcg PO chlorhexidine gluconate 0.12% 15 mL buccal DAILY 30 days cholecalciferol (vitamin D3) (Vitamin D3) 25 mcg PO DAILY doxycycline hyclate 100 mg PO BID 10 days duloxetine 60 mg PO DAILY epinephrine 0.3 mL IM ONCE PRN ferrous sulfate (FeroSul) 325 mg PO DAILY fluticasone propionate 220 mcg/actuation 2 puffs inhalation BID furosemide (Lasix) 80 mg PO BID 30 days gabapentin 100 mg PO .AM gabapentin 400 mg PO BEDTIME hydrocodone-acetaminophen 7.5-325 mg 1 tab PO BID PRN insulin glargine units subcut levothyroxine 75 mcg PO DAILY meclizine 25 mg PO BID PRN mepolizumab 100 mg subcut Q4W nystatin 1 appl topical BID omeprazole 20 mg PO DAILY potassium chloride ER 10 mEq PO BID Saccharomyces boulardii (Florastor) 250 mg PO BID sitagliptin phosphate 100 mg PO DAILY tiotropium bromide 1.25 mcg/actuation inhalation tirzepatide (Mounjaro) 2.5 mg subcut QWEEK trazodone 50 mg PO BEDTIME PRN valsartan (Diovan) 80 mg PO DAILY HPI HPI Pill Count: Details: 78-year-old female who presents today to the office for a pill count. 38?pills were expected, and?41 pills were presented. She reports her left shoulder, hand, and hip are painful and suspects that it might be due to weather change. Past Procedures: 03/21/24: Left glenohumeral joint steroid injection, ultrasound guided: % relief. 11/29/23: Lumbar Medial Branch Nerve Stimulation Lead Placement, SPR (Sprint) System, Left L3: Therapy ongoing 10/25/23: Left C7-T1 parasagittal interlaminar MARIZA: Resolution of forearm and finger pain 08/23/23: Interlaminar epidural steroid injection, L3/4, Left parasaggital: 40- 50% relief for 3 days. 05/31/23: Hip Intra-articular Injection, fluoroscopy guided, Left: 70% relief. 05/14/23: Left glenohumeral joint steroid injection, ultrasound guided: 70% relief. 09/06/22: Hip Intra-articular Injection, fluoroscopy guided, Left: >50% relief. : Right glenohumeral steroid injection: >50% relief. 05/10/22: Right glenohumeral corticosteroid injection: >50% relief. 04/19/22: Intra-articular left glenohumeral injection: >50% relief. 02/22/22: Diagnostic bilateral suprascapular nerve block - 0% relief bilaterally 02/08/22: Bilateral Ischial Bursa /left GTB- Good relief with better mobility 11/25/21: Interlaminar Midline L3-L4 MARIZA ? Good relief for leg pain, able to walk more and better. 10/26/21: Bilateral L3-L4-L5 Diagnostic MBBs ? 30% relief for 2 days. FOR[facility]LY [facility] Medical History (Updated 04/18/24 @ 05:36 by Sae Hurst) COPD (chronic obstructive pulmonary disease) Morbid obesity Acute systolic congestive heart failure Osteoporosis Dyspnea Chronic pain syndrome Gouty arthritis Arthritis of both glenohumeral joints Neurogenic claudication due to lumbar spinal stenosis Asthma CLEVE on CPAP Chronic restrictive lung disease Tracheitis Dyspnea Surgical History Status post cervical spinal fusion History of eyelid surgery History of knee replacement History of cholecystectomy Family History Father HTN (hypertension) Stroke Diabetes Mother Atrial fibrillation HTN (hypertension) Social History Alcohol intake: never Patient Tobacco Use Status: Former Tobacco user Tobacco use type: Cigarette Years Smoked: 20 years Second Hand Smoke Exposure: No Review of Systems Const All systems reviewed & are unremarkable except as noted in HPI and below Physical Exam Vital Signs: Last Vital Signs Pulse 83 04/18/24 10:04 Resp 16 04/18/24 10:04 BP 127/62 04/18/24 10:04 Pulse Ox 94 04/18/24 10:04 Oxygen Delivery Method Room Air 04/18/24 10:04 General: Appears afebrile. Alert and oriented. Mood and affect appropriate. Follows and participates in conversation appropriately. Respiratory effort is unlabored. Able to transition from sit to stand unassisted. Ambulates with bilaterally normal heel strike and toe off. Results Reviewed Results Reviewed: No imaging is available for review. Assessment & Plan Assessment & Plan (1) Chronic pain syndrome: Comment: Requiring narcotic use Code(s): G89.4 - Chronic pain syndrome Category: Medical Plan 38?pills were expected, and 41?pills were presented. Pill count and Mass PAT were consistent. A refill of hydrocodone-acetaminophen 5-300 mg was provided to the patient, starting 05/07/24. Pill count is consistent. The patient will follow up in 4 weeks for pill count and refill. Scribed for Dr. Scherer by Sae Hurst, certified medical technician assistant, on 04/18/2024. I, Dr. Scherer, have personally reviewed and agree with the information entered by the scribe. Medications: Refilled hydrocodone-acetaminophen 7.5-325 mg Partial Fill upon patient request. 1 tab PO BID PRN 60 tabs 0RF pain Coding Level of Care Code Est Pt Level 3 (85389) Diagnoses Chronic pain syndrome G89.4
[2024-04-18 10:04] VITALS: BP 127/62; PULSE 83; RESP 16; O2SAT 94
== END 2024-04-18 10:33 | disposition home or self-care (01) ==
PROVIDERS: PCP Internal Medicine; Visit Provider Internal Medicine
DX: G89.4 Chronic pain syndrome (principal)
CPT/HCPCS: 99213

== ENCOUNTER → 2024-04-18 09:24 | Outpatient (BNVA) | payer MEDICARE, OTHER, SELFPAY | PROVIDERS: PCP Internal Medicine; Visit Provider Internal Medicine | DX: G89.4 Chronic pain syndrome (principal); Z51.81 Encounter for therapeutic drug level monitoring; Z79.891 Long term (current) use of opiate analgesic | CPT/HCPCS: 99212 ==

== ENCOUNTER 2024-05-14 14:30 | Outpatient (REF) | payer MEDICARE, OTHER, SELFPAY | END 2024-05-14 14:31 | disposition home or self-care (01) | LOC: HO.MAMMO 14:30 | PROVIDERS: PCP Internal Medicine; Visit Provider Internal Medicine | DX: Z12.31 Encounter for screening mammogram for malignant neoplasm of breast (principal) | CPT/HCPCS: 77063; 77067 ==

== ENCOUNTER 2024-05-21 09:26 | Outpatient (AMB) | payer MEDICARE, OTHER, SELFPAY ==
--- NOTE | 2024-05-21 09:29 | A.OFFVIS_ITS ---
Vital Signs 05/21/24 09:30 Weight 243 lb BP 141/65 H Blood Pressure Location Lt radial Position Sitting Respiration 18 Pulse 94 Pulse Source Pulse Oximeter Intake Visit Reasons: Pill Count Intake Note: Pt states she last took vicodin 05/21/24 @ 7:30am Allergies cephalexin [From Keflex] Allergy (Severe, Verified 05/21/24 09:33) Itching pravastatin [Pravachol] Allergy (Severe, Verified 05/21/24 09:33) cramps bacitracin Adverse Reaction (Severe, Verified 05/21/24 09:33) eye swelling dexamethasone [TobraDex] Adverse Reaction (Severe, Verified 05/21/24 09:33) redness swelling tobramycin [TobraDex] Adverse Reaction (Severe, Verified 05/21/24 09:33) redness swelling Sulfa (Sulfonamide Antibiotics) Adverse Reaction (Intermediate, Verified 05/21/24 09:33) GI upset atorvastatin [From Lipitor] Adverse Reaction (Verified 05/21/24 09:33) Unknown Beef Containing Products Adverse Reaction (Verified 05/21/24 09:33) Unknown erythromycin base Adverse Reaction (Verified 05/21/24 09:33) Unknown Penicillins [PCN] Adverse Reaction (Verified 05/21/24 09:33) Unknown sulfacetamide [From Sulfacet-R] Adverse Reaction (Verified 05/21/24:33) Unknown sulfur [From Sulfacet-R] Adverse Reaction (Verified 05/21/24 09:33) Unknown topiramate [From Topamax] Adverse Reaction (Verified 05/21/24 09:33) Unknown Medication List - Last Reconciled 05/21/24 by Naz Simpson LPN albuterol sulfate 90 mcg/actuation 2 puffs PO Q4H albuterol sulfate 2.5 mg (3 mL) inhalation Q4H PRN allopurinol 100 mg PO DAILY aspirin 81 mg PO DAILY atorvastatin 20 mg PO DAILY azelastine-fluticasone 137-50 mcg/spray 1 spray intranasal BID 30 days bepotastine besilate 1.5% (Bepreve) 1 drp ophthalmic (eye) DAILY PRN calcitriol mcg PO chlorhexidine gluconate 0.12% 15 mL buccal DAILY 30 days cholecalciferol (vitamin D3) (Vitamin D3) 25 mcg PO DAILY doxycycline hyclate 100 mg PO BID 10 days duloxetine 60 mg PO DAILY epinephrine 0.3 mL IM ONCE PRN ferrous sulfate (FeroSul) 325 mg PO DAILY fluticasone propionate 220 mcg/actuation 2 puffs inhalation BID furosemide (Lasix) 80 mg PO BID 30 days gabapentin 100 mg PO .AM gabapentin 400 mg PO BEDTIME hydrocodone-acetaminophen 7.5-325 mg 1 tab PO BID PRN insulin glargine units subcut levothyroxine 75 mcg PO DAILY meclizine 25 mg PO BID PRN mepolizumab 100 mg subcut Q4W nystatin 1 appl topical BID omeprazole 20 mg PO DAILY potassium chloride ER 10 mEq PO BID Saccharomyces boulardii (Florastor) 250 mg PO BID sitagliptin phosphate 100 mg PO DAILY tiotropium bromide 1.25 mcg/actuation inhalation tirzepatide (Mounjaro) 2.5 mg subcut QWEEK trazodone 50 mg PO BEDTIME PRN valsartan 40 mg PO DAILY HPI HPI Pill Count: Details: History of Present Illness The patient is a 78-year-old female presenting for a pill count and evaluation of left hip pain. The patient reports being prescribed a medication with 34 pills, but currently, 32 remain, which falls within the allowable margin of error for her prescription. The pill discrepancy appears related to occasional loss of pills, not overuse. She recalls a time when her pill container inadvertently dropped. The left hip pain began approximately two to three weeks ago. It is primarily noticeable upon awakening and during movements such as rolling out of bed. There are no prior treatments sought for this pain, and the patient expresses a desire to avoid additional medication for this new issue. Instead, a potential injection is to be considered if the pain persists by the next visit in a month. It is suspected to be related to left greater trochanteric pain syndrome, with pain experienced when pressure is applied to the lateral hip, radiating down the leg. Pain Description - Onset and Timing: Began two to three weeks ago; primarily noticed upon waking and moving. - Quality and Character: Painful upon applying pressure and while rolling out of bed. - Primary Location: Lateral left hip. - Radiation: Pain radiates downward when pressure is applied to the lateral area. - Exacerbating Factors: Movements such as rolling out of bed increase discomfort. - Relieving Factors: Not currently utilizing medications beyond the required prescription. - Interference: Affects mobility upon waking and certain movements. Physical Exam Results Pain Management - Affect: No specific psychological or mood impact noted, but pain increases discomfort during specific movements. - Analgesia: Currently taking prescribed medication; 32 pills remain from a 34- pill prescription. No additional pain medication for hip pain currently. - Adverse Effects: None from current medication reported. - Activities of Daily Living: Pain affects movement upon waking, but does not significantly impact daily living activities at present. - Aberrant Drug-Related Behaviors: None observed or reported; pill count discrepancy due to accidental loss. [facility] Medical History (Updated 04/18/24 @ 05:36 by Sae Hurst) COPD (chronic obstructive pulmonary disease) Morbid obesity Acute systolic congestive heart failure Osteoporosis Dyspnea Chronic pain syndrome Gouty arthritis Arthritis of both glenohumeral joints Neurogenic claudication due to lumbar spinal stenosis Asthma CLEVE on CPAP Chronic restrictive lung disease Tracheitis Dyspnea Surgical History Status post cervical spinal fusion History of eyelid surgery History of knee replacement History of cholecystectomy Family History Father HTN (hypertension) Stroke Diabetes Mother Atrial fibrillation HTN (hypertension) Social History Alcohol intake: never Patient Tobacco Use Status: Former Tobacco user Tobacco use type: Cigarette Years Smoked: 20 years Second Hand Smoke Exposure: No Physical Exam Vital Signs: Last Vital Signs Pulse 94 05/21/24 09:30 Resp 18 05/21/24 09:30 BP 141/65 H 05/21/24 09:30 Assessment & Plan Assessment & Plan (1) Chronic pain syndrome: Comment: Requiring narcotic use Code(s): G89.4 - Chronic pain syndrome Category: Medical Plan Plan 1. 5-325 mg., twice a day starting June 07, 2024: - Educate on and adhere to the opioid prescription protocols, including being mindful of the pill count. Patient was informed and verbally consented to the use of an ambient scribe for clinic note documentation during this visit. Discussion Notes During the visit, I reviewed the prescription adherence guidelines with the patient, emphasizing the importance of accurate pill handling and consistent tracking. We touched upon the potential injunctive relief for her left greater trochanteric pain syndrome, agreeing to assess further need for intervention during the next appointment if her symptoms persist. Alternatives for pain management were considered, with the patient preferring to minimize medication use. I also outlined the timeline for the next prescription refill and emphasized aligning pharmacy visits with grocery shopping for efficiency given the weather considerations. No imaging was discussed during this visit. A follow-up appointment was scheduled for one month to reassess and evaluate ongoing pain management outcomes. Patient Instructions - Continue with your current prescription as advised. - Monitor left hip pain, particularly noting any changes or increased discomfort. - Be cautious with pill container handling to avoid loss. - Plan pharmacy visits around grocery shopping where feasible. - Return for follow-up in one month for reassessment and potential injection for hip pain if needed. - Contact us prior to the scheduled visit if symptoms worsen or if you have any concerns about your medication. Medications: Refilled hydrocodone-acetaminophen 7.5-325 mg Partial Fill upon patient request. 1 tab PO BID PRN 60 tabs 0RF pain Coding Level of Care Code Est Pt Level 4 (25969) Diagnoses Chronic pain syndrome G89.4
[2024-05-21 09:30] VITALS: BP 141/65; PULSE 94; RESP 18
== END 2024-05-21 09:59 | disposition home or self-care (01) ==
PROVIDERS: PCP Internal Medicine; Visit Provider Internal Medicine
DX: G89.4 Chronic pain syndrome (principal); Z79.891 Long term (current) use of opiate analgesic
CPT/HCPCS: 99214

== ENCOUNTER → 2024-05-21 09:26 | Outpatient (BNVA) | payer MEDICARE, OTHER, SELFPAY | PROVIDERS: PCP Internal Medicine; Visit Provider Internal Medicine | DX: G89.4 Chronic pain syndrome (principal); M25.552 Pain in left hip; Z51.81 Encounter for therapeutic drug level monitoring; Z79.4 Long term (current) use of insulin; Z79.899 Other long term (current) drug therapy; Z79.891 Long term (current) use of opiate analgesic | CPT/HCPCS: 99212 ==

== ENCOUNTER 2024-06-18 09:39 | Outpatient (AMB) | payer MEDICARE, OTHER, SELFPAY ==
[2024-06-18 09:51] VITALS: BP 143/88; PULSE 104; O2SAT 96; BMI 43.6
--- NOTE | 2024-06-18 09:51 | MHC.OFFVIS ---
Vital Signs 06/18/24 09:51 Height 5 ft 2.56 in Weight 243 lb BMI 43.6 BP 143/88 H Blood Pressure Location Lt brachial Position Sitting Pulse 104 H Pulse Source Pulse Oximeter Pulse Oximetry (%) 96 Oxygen Delivery Method Room Air Intake Visit Reasons: PILL COUNT [employer] Required: No Allergies cephalexin [From Keflex] Allergy (Severe, Verified 06/18/24 09:52) Itching pravastatin [Pravachol] Allergy (Severe, Verified 06/18/24 09:52) cramps bacitracin Adverse Reaction (Severe, Verified 06/18/24 09:52) eye swelling dexamethasone [TobraDex] Adverse Reaction (Severe, Verified 06/18/24 09:52) redness swelling tobramycin [TobraDex] Adverse Reaction (Severe, Verified 06/18/24 09:52) redness swelling Sulfa (Sulfonamide Antibiotics) Adverse Reaction (Intermediate, Verified 06/18/24 09:52) GI upset atorvastatin [From Lipitor] Adverse Reaction (Verified 06/18/24 09:52) Unknown Beef Containing Products Adverse Reaction (Verified 06/18/24 09:52) Unknown erythromycin base Adverse Reaction (Verified 06/18/24 09:52) Unknown Penicillins [PCN] Adverse Reaction (Verified 06/18/24 09:52) Unknown sulfacetamide [From Sulfacet-R] Adverse Reaction (Verified 06/18/24 09:52) Unknown sulfur [From Sulfacet-R] Adverse Reaction (Verified 06/18/24 09:52) Unknown topiramate [From Topamax] Adverse Reaction (Verified 06/18/24 09:52) Unknown Medication List - Last Reconciled 06/18/24 by Jasmin Rodriguez, GEOSPATIAL INFORMATION SCIENTIST albuterol sulfate 90 mcg/actuation 2 puffs PO Q4H albuterol sulfate 2.5 mg (3 mL) inhalation Q4H PRN allopurinol 100 mg PO DAILY aspirin 81 mg PO DAILY atorvastatin 20 mg PO DAILY azelastine-fluticasone 137-50 mcg/spray 1 spray intranasal BID 30 days bepotastine besilate 1.5% (Bepreve) 1 drp ophthalmic (eye) DAILY PRN calcitriol mcg PO chlorhexidine gluconate 0.12% 15 mL buccal DAILY 30 days cholecalciferol (vitamin D3) (Vitamin D3) 25 mcg PO DAILY doxycycline hyclate 100 mg PO BID 10 days duloxetine 60 mg PO DAILY epinephrine 0.3 mL IM ONCE PRN ferrous sulfate (FeroSul) 325 mg PO DAILY fluticasone propionate 220 mcg/actuation 2 puffs inhalation BID furosemide (Lasix) 80 mg PO BID 30 days gabapentin 100 mg PO .AM gabapentin 400 mg PO BEDTIME hydrocodone-acetaminophen 7.5-325 mg 1 tab PO BID PRN insulin glargine units subcut levothyroxine 75 mcg PO DAILY meclizine 25 mg PO BID PRN mepolizumab 100 mg subcut Q4W nystatin 1 appl topical BID omeprazole 20 mg PO DAILY potassium chloride ER 10 mEq PO BID Saccharomyces boulardii (Florastor) 250 mg PO BID sitagliptin phosphate 100 mg PO DAILY tiotropium bromide 1.25 mcg/actuation inhalation tirzepatide (Mounjaro) 2.5 mg subcut QWEEK trazodone 50 mg PO BEDTIME PRN valsartan 40 mg PO DAILY HPI Comments Details: Vy is a very pleasant 78-year-old female who presents to the office today for follow up chronic pain and chronic opioid therapy management. Patient is prescribed hydrocodone acetaminophen 7.5-325mg take 1 tablet 2 times daily. Patient arrived today with the expectation of having 38 pills, she presented 44 pills which were counted in the presence of two staff members and returned to the patient in the original prescription bottle. This demonstrates responsible attitude toward patient's opioid medications. Last dose of pain medication was taken at 07:30 this morning. Denies side effects including somnolence, constipation, itching, dyspnea, rash, dizziness or weakness. At last visit she reported left hip pain, this pain persists though she is not interested in injections at this time. [facility] History (Updated 04/18/24 @ 05:36 by Sae Hurst) COPD (chronic obstructive pulmonary disease) Morbid obesity Acute systolic congestive heart failure Osteoporosis Dyspnea Chronic pain syndrome Gouty arthritis Arthritis of both glenohumeral joints Neurogenic claudication due to lumbar spinal stenosis Asthma CLEVE on CPAP Chronic restrictive lung disease Tracheitis Dyspnea Surgical History Status post cervical spinal fusion History of eyelid surgery History of knee replacement History of cholecystectomy Family History Father HTN (hypertension) Stroke Diabetes Mother Atrial fibrillation HTN (hypertension) Social History Alcohol intake: never Patient Tobacco Use Status: Former Tobacco user Tobacco use type: Cigarette Years Smoked: 20 years Second Hand Smoke Exposure: No Review of Systems Const All systems reviewed & are unremarkable except as noted in HPI and below Physical Exam Vital Signs: Last Vital Signs Pulse 104 H 06/18/24 09:51 BP 143/88 H 06/18/24 09:51 Pulse Ox 96 06/18/24 09:51 Oxygen Delivery Method Room Air 06/18/24 09:51 BMI result Body Mass Index 43.6 General: awake, alert, oriented. Answers questions appropriately. Fully engaged in examination. Skin: warm, dry, intact HEENT: Normocephalic. Hearing intact. Cardiac: External chest normal in appearance. Respiratory: No cough, audible wheezing or stridor. Abdomen: without gross distension. MS: No obvious swelling or deformities. Able to transition from sit to stand unassisted. No pain with I/E rotation of left hip. Tenderness over left PSIS. SLR negative. nontender over left GTB. Neurological: Oriented to person, place, time and situation. Thought process intact. Ambulates with the use of a cane. Psychiatric: Appropriate mood and affect. Good judgment and insight. Assessment & Plan Assessment & Plan (1) Chronic pain syndrome: Comment: Requiring narcotic use Code(s): G89.4 - Chronic pain syndrome Category: Medical Plan [place] was reviewed and without concerns. No obvious signs of diversion, abuse or misuse of the opioid medications. Will send in prescription for hydrocodone/acetaminophen 7.5-325 mg BID with an advanced date of 07/03/24 Patient declined discussion differential left hip pain. She will call the office if pain worsens. Patient to follow-up in the office in 1 month, sooner if needed. All questions and concerns have been answered and patient agrees with the plan. Medications: Refilled hydrocodone-acetaminophen 7.5-325 mg Partial Fill upon patient request. 1 tab PO BID PRN 60 tabs 0RF pain Coding Level of Care Code Est Pt Level 4 (14331) Complex EM visit Add On G2211 Diagnoses Chronic pain syndrome G89.4
--- OUTSIDE RECORDS SUMMARY | 2024-06-18 09:57 | XMS_ITS ---
Author Organization [facility] Address [address] [facility] [place] [address] Care Team Providers Care Donor Services Specialist Name Role Phone Omid Jimenes MD Primary Care Provider Sushila Campos Unavailable [phone] Alexis Martinez Unavailable [phone] Allergies Allergen (clinical drug ingredient) Drug/Non Drug Allergy documented on EMR Reaction Allergy Type Onset Date Status bacitracin Bacitracin swelling,itchy Drug Allergy Active sulfamethoxazole / trimethoprim Bactrim GI upset Drug Allergy Active ciprofloxacin Cipro GI upset Drug Allergy Act manolo erythromycin Erythromycin GI upset Drug Allergy A ctive dexamethasone / tobramycin TobraDex swelling, itchy Drug Allergy Active REASON FOR VISIT Painful nail(s) aggrevated by shoes and causing difficulty standing/walking. Medications Medication SIG (Take, Route, Frequency, Duration) Notes Start Date End Date Status Ditropan Not-Taking Vicodin PRN Not-Taking Metformin & Diet Manage Prod 500 MG as directed Orally Not-Takin g Dulera Not-Taking hydroCHLOROthiazide 25 MG 1 tablet Orall y Once a day for 30 day(s) Not-Taking Trulicity start in 1 week stop januvia Not-Taking Farxiga 10 MG 1 tablet Orally morning Not-Taking Declomycin Not-Takin g Extra Depth Diabetic Shoes with 3 Pair Custom heat-molded multi-density innersoles for 1 year Dx: 10/03/2017 Not-Taking Extra Depth Orthopedic Shoes (1 Pair) with Customized Heat Molded Multidensity Innersoles (3 Pair) as directed Dx: IDDM/Polyneuropath y (E10.42), Hammertoe Foot Deformity (M20.41,M20.42), Preulcerative Skin Lesion(s) (L85.1) 04/04/2017 Not-Taking Calcitriol 0.25 MCG Oral for 30 Active Vancomycin HCl 125 MG USE 1 SUPPOSITORY RECTALLY TWICE A DAY Oral for 14 PRN Active Vitamin C Active ZyrTEC Allergy Activ e Extra Depth Orthopedic Shoes (1 Pair) with Customized Heat Molded Multidensity Innersoles (3 Pair) as directed Dx: NIDDM/Polyneuropat hy (E11.42), Hammertoe Foot Deformity (M20.41,M20.42), Preulcerative Skin Lesion(s) (L85.1 Active predniSONE 10 MG Oral for 12 PRN A ctive tylenol Active Synthroid Active Spiriva Respimat Act manolo Valsartan Active PriLOSEC 20 MG 1 capsule Orally Once a day for 30 day(s) Active Potassium Chloride ER Active oxyCODONE HCl PRN Active Omeprazole Active Prochlorperazine PRN Act manolo Levothyroxine Sodium 75 MCG 1 tablet on an empty stomach in the morning Orally Once a day Active Lantus 37 units injections Act manolo Nucala Active Magnesium Oxide 400 MG 1 tablet as neede d Orally Once a day for 30 day(s) Active Meclizine HCl 25 MG 1 tablet as needed Orally Once a day for 30 day(s) PRN Active Ibuprofen 800mg 1 tablet as needed Orally every 6 hrs PRN Active Januvia Active K-Tab 10 MEQ 1 tablet with food Orally Twice a day for 30 day(s) Active Gabapentin 100 MG 1 capsule Orally morning 400 MG at night Active HYDROcodone-Acetaminophen 7.5-325 MG 1 tablet as needed Orally every 6 hrs Active Furosemide Active EPINEPHrine PRN Active Ferrous Sulfate 325 (65 Fe) MG 1 tablet Orally Once a day for 30 day(s) Active Florastor 250 MG 1 capsule Orally Twice a day for 30 day(s) Active Fluticasone Propionate Active Cephalexin PRN Active Diovan 160mg 1 tablet Orally Once a day for 30 day(s) Active Dymista Active DULoxetine HCl 60 MG as directed Orally Once a day Active Colchicine PRN Active Allopurinol 100 MG as directed Orally Active Bepreve 1.5 % 1 drop into affected eye Ophthalmic Twice a day Active Albuterol as directed PRN Active Amoxicillin 250 MG USE 1 SUPPOSITORY RECTALLY TWICE A DAY Oral for 7 PRN Active Lorena Active Atorvastatin Calcium Active Invokana 300 MG 1 tablet Orally Once a day Not-Taking Extra Depth Diabetic Shoes with 3 Pair Custom heat-molded multi-density innersoles for 1 year Dx: 10/06/2015 Not-Taking Ergocalciferol 36637 UNIT 1 capsule Oral ly for 30 day(s) Not-Taking Breo Ellipta Not-Jaylen ing Flonase 1 spray in each nostril Nasally Once a day for 30 day(s) HOLD Not-Taking Extra-Depth Diabetic Shoes with 3 Pair Custom heat-molded multi-density innersoles . for 1 year . Dx:Niddm with neuropathy, foot deformity and pre-ulcerative skin lesions for . 07/10/2013 Not-Taking Extra-Depth Diabetic Shoes with 3 Pair Custom heat-molded multi-density innersoles . 1pair shoes/3sets inserts . . for 1 year Not-Taking Extra-Depth Diabetic Shoes with 3 Pair Custom heat-molded multi-density innersoles . for 1 year . Dx: for . 10/05/2014 Not-Taking Social History Tobacco Use: Social History Observation Description Date Details (start date - stop date) Never Smoker NA - NA Tobacco Use/Smoking Question Answer Notes Are you a: nonsmoker Tobacco use other than smoking: Question Answer Notes Are you an other tobacco user? No Vital Signs Height 5 ft 3 in in 12/27/2023 Weight 257 lbs 12/27/2023 BMI 45.52 kg/m2 12/27/2023 Blood pressure systolic 130 mm Hg 12/27/19 24 Blood pressure diastolic 62 mm Hg 024 Encounters Encounter Location Date Provider Diagnosis [facility] [address] [place] [address] 12/27/2023 Alexis Martinez Type 1 diabetes mellitus with diabetic polyneuropathy [...] Treatment Notes Treatment Clinical Notes Section Notes 12/27/2023 Type 1 diabetes mellitus with diabetic polyneuropathy (ICD-10 - E10.42) 12/27/2023 Tinea unguium (ICD-10 - B35.1) 12/27/2023 Ingrowing nail (ICD-10 - L60.0) 12/27/2023 Pain in right toe(s) (ICD-10 - M79.674) 12/27/2023 Pain in left toe(s) (ICD-10 - M79.675) 12/27/2023 Hallux valgus (acquired), left foot (ICD-10 - M20.12) 12/27/2023 Hallux valgus (acquired), right foot (ICD-10 - M20.11) 12/27/2023 Eczema, unspecified type (ICD-10 - L30.9) 12/27/2023 Xerosis cutis (ICD-10 - L85.3) 12/27/2023 Other hammer toe(s) (acquired), right foot (ICD-10 - M20.41) 12/27/2023 Other hammer toe(s) (acquired), left foot (ICD-10 - M20.42) 12/27/2023 Achilles tendinitis, right leg (ICD-10 - M76.61) 12/27/2023 Achilles tendinitis, left leg (ICD-10 - M76.62) Plan Of Treatment Next Appt Details Follow Up: 2 Months, 3 Month s, Reason: Provider Name:Brittany shannon, 07/18/2024 01:30:00 PM, [address] [place] [address], [phone], Provider Name:Sushila brasher, 09/24/2024 02:30:00 PM, [address] [place], [address], Procedure Notes * Category Sub-Category Detail Notes [...] as necessary. Patient chooses, no pharmaceutical tx (85804) Keratoma Treatment Parring or Cutting o f Benign Hyperkeratotic Lesion(s) 77142 (2-4 Lesions) - The Benign hyperkeratotic lesions, as described above were pared, and/or cut utilizing a sterile #15 blade, tissue nippers, and/or dremel Progress Notes * Vy FISHMAN LDOB:1945 (78 yo F)Acc No.[id number]:12/27/2023 Progress Note Patient:?Kye Vy De Leon Provider:?Alexis Martinez DPM :1945???Age:78 Y???Sex:Female D ate:12/27/2023 Address:[address] [place] [address], [place], [id number] Pcp:Omid Jimenes MD Subjective: * Chief Complaints: * ???Painful nail(s) aggrevate d by shoes and causing difficulty standing/walking. * HPI: ???Painful Nails:?Pt States Last PCP Visit:?Date:?12/16/2023 ???Heel pain:?Nature:?aching.?Location:?Back of heel, B/L.?Duration:?several weeks.?Onset/Cause:?unknown.?Severity/Quality:?mild.?Toe pain:?Nature:?aching.?Location:?5th toe, B/L feet.?Duration:?several months.?Onset/Cause:?shoe gear.? * ROS:?General/Constitutional:?Nausea?denies.?Vomiting?denies.?Hunger Thirst?denies.?Loss appetite?denies.?Chills?denies.?Fatigue?denies.?Fever?denies.?Night Sweats?denies.?Unexplained weight loss?denies.?Unexplained weight gain?denies.?HEENTM:?Dentures?denies.?Dizziness?denies.?Glasses/contacts?admits.?Retinopathy?de nies.?Blurred/double vision?denies.?TMJ?denies.?Discharge/drainage?denies.?Implants?denies.?Sore throat?denies.?Dental implants?denies.?Hard of hearing ?denies.?Difficulty chewing/swallowing/speaking?denies.?Nose bleeds?denies.?Sore mouth?denies.?Respiratory:?On Oxygen?denies.?Pneumonia/pleurisy?denies.?Bronchitis?denies.?Emphysema?denies.?C oughing?denies.?Cough blood?denies.?Shortness of breath?denies.?Wheezing?denies.?Cardiovascular:?Pacemaker?denies.?MVP?denies.?WPW?denies.?CHF?denies.?Heart attack?denies.?Septal defect?denies.?Rapid beat?denies.?Chest pain ?denies.?Atrial Fib.?denies.?Murmur/Palpitations?denies.?Gastrointestinal:?Hemorrhoids?denies.?Stomach/Abdominal pain?denies.?Dark blood stool?denies.?Irritable bowel ?denies.?Constipation?denies.?Diarrhea?denies.?Hematology:?Swelling?denies.?Clots?denies.?Varicose Veins?denies.?Bruising?denies.?Bleeding problem?denies.?Genitourinary:?Blood urine?denies.?Frequent/Painfu/urination/bladder control?denies.?Kidney stones?denies.?Infection (UTI)?denies.?Nephropathy?denies.?sex trans dis (STD)?denies.?Prostate?denies.?Musculoskeletal:?Hammertoes?denies.?Bunions?denies.?Back Pain?denies.?Muscle Cramps/ Resting?denies.?Muscle cramps / walking?denies.?Generalized aches and pains?denies.?Weakness?denies.?Integ.:?Rudd?denies.?Scars?denies.?Corns/calluses?denies.?Ingrown nails?denies.?Painful nails?denies.?Open Sores?denies.?Rashes?denies.?Neurologic:?Difficulty sleeping?denies.?Brain disorder?denies.?Numbness?denies.?Balance trouble?denies.?Confusion?denies.?Fainting/blackouts?denies.?Tingling?denies.?Tr emors?denies.? * Medical History:? * Surgical History:?lap band c ataract surgery blepheroplasty cholecystectomy oral surgery bone graft 2014oral implants and tissue graft 2014Cervical disc replacement. 05/07/2017Heart Catheterization 01/12/21aortic valve 03/16/21 * Hospitalization/Major Diagno stic Procedure:?[facility], Cervical disc replacement, 1 day stay. 05/07/2017Comonae Casanova-Systemic Gout 9 day stay- Discharged to rehab- 12 days-Went back to [facility] 10/2018-01/10/2019Comonae Casanova- Constipation, swelling, 12/21 * Family History:?Mother: dece ased, foot problems.?Father: , diagnosed with Unspecified essential hypertension, Unspecified cerebral artery occlusion with cerebral infarction.?Paternal uncle: foot problems.? * Social History:?Tobacco Use:?Tobacco Use/Smoking?Are you a:?nonsmoker ?Tobacco use other than smoking?Are you an other tobacco user??No ???Miscellaneous:?Caffeine: yes, frequency:, 2-3 cups per day. ?Children: yes, 2. ?Exercise: yes, occasional. ?Marital status: . ?Occupation: Retired. * Medications:?TakingAtorvasta tin Calcium Albuterol Powder as directed , Notes: PRNAmoxicillin 250 MG Capsule USE 1 SUPPOSITORY RECTALLY TWICE A DAY Oral , Notes: PRNAllegra Allopurinol 100 MG Tablet as directed Orally Bepreve 1.5 % Solution 1 drop into affected eye Ophthalmic Twice a dayColchicine , Notes: PRNCephalexin , Notes: PRNDiovan 160mg Tablet 1 tablet Orally Once a dayDymista DULoxetine HCl 60 MG Capsule Delayed Release Particles as directed Orally Once a dayEPINEPHrine , Notes: PRNFerrous Sulfate 325 (65 Fe) MG Tablet Delayed Release 1 tablet Orally Once a dayFlorastor 250 MG Capsule 1 capsule Orally Twice a dayFluticasone Propionate Furosemide Gabapentin 100 MG Capsule 1 capsule Orally morning, Notes: 400 MG at nightHYDROcodone-Acetaminophen 7.5-325 MG Tablet 1 tablet as needed Orally every 6 hrsIbuprofen 800mg Tablet 1 tablet as needed Orally every 6 hrs, Notes: PRNJanuvia K-Tab 10 MEQ Tablet Extended Release 1 tablet with food Orally Twice a dayLevothyroxine Sodium 75 MCG Tablet 1 tablet on an empty stomach in the morning Orally Once a dayLantus 37 units injections Nucala Magnesium Oxide 400 MG Tablet 1 tablet as needed Orally Once a dayMeclizine HCl 25 MG Tablet Chewable 1 tablet as needed Orally Once a day, Notes: PRNoxyCODONE HCl , Notes: PRNOmeprazole Prochlorperazine , Notes: PRNPriLOSEC 20 MG Capsule Delayed Release 1 capsule Orally Once a dayPotassium Chloride ER predniSONE 10 MG Tablet Oral , Notes: PRNtylenol Synthroid Spiriva Respimat Valsartan Vancomycin HCl 125 MG Capsule USE 1 SUPPOSITORY RECTALLY TWICE A DAY Oral , Notes: PRNVitamin C ZyrTEC Allergy Extra Depth Orthopedic Shoes (1 Pair) with Customized Heat Molded Multidensity Innersoles (3 Pair) as directed Dx: NIDDM/Polyneuropathy (E11.42), Hammertoe Foot Deformity (M20.41,M20.42), Preulcerative Skin Lesion(s) (L85.1Calcitriol 0.25 MCG Capsule Oral Taking Atorvastatin Calcium Taking Albuterol Powder as directed , Notes: PRNTaking Amoxicillin 250 MG Capsule USE 1 SUPPOSITORY RECTALLY TWICE A DAY Oral , Notes: PRNTaking Lorena Taking Allopurinol 100 MG Tablet as directed Orally Taking Bepreve 1.5 % Solution 1 drop into affected eye Ophthalmic Twice a dayTaking Colchicine , Notes: PRNTaking Cephalexin , Notes: PRNTaking Diovan 160mg Tablet 1 tablet Orally Once a dayTaking Dymista Taking DULoxetine HCl 60 MG Capsule Delayed Release Particles as directed Orally Once a dayTaking EPINEPHrine , Notes: PRNTaking Ferrous Sulfate 325 (65 Fe) MG Tablet Delayed Release 1 tablet Orally Once a dayTaking Florastor 250 MG Capsule 1 capsule Orally Twice a dayTaking Fluticasone Propionate Taking Furosemide Taking Gabapentin 100 MG Capsule 1 capsule Orally morning, Notes: 400 MG at nightTaking HYDROcodone-Acetaminophen 7.5-325 MG Tablet 1 tablet as needed Orally every 6 hrsTaking Ibuprofen 800mg Tablet 1 tablet as needed Orally every 6 hrs, Notes: PRNTaking Januvia Taking K-Tab 10 MEQ Tablet Extended Release 1 tablet with food Orally Twice a dayTaking Levothyroxine Sodium 75 MCG Tablet 1 tablet on an empty stomach in the morning Orally Once a dayTaking Lantus 37 units injections Taking Nucala Taking Magnesium Oxide 400 MG Tablet 1 tablet as needed Orally Once a dayTaking Meclizine HCl 25 MG Tablet Chewable 1 tablet as needed Orally Once a day, Notes: PRNTaking oxyCODONE HCl , Notes: PRNTaking Omeprazole Taking Prochlorperazine , Notes: PRNTaking PriLOSEC 20 MG Capsule Delayed Release 1 capsule Orally Once a dayTaking Potassium Chloride ER Taking predniSONE 10 MG Tablet Oral , Notes: PRNTaking tylenol Taking Synthroid Taking Spiriva Respimat Taking Valsartan Taking Vancomycin HCl 125 MG Capsule USE 1 SUPPOSITORY RECTALLY TWICE A DAY Oral , Notes: PRNTaking Vitamin C Taking ZyrTEC Allergy Taking Extra Depth Orthopedic Shoes (1 Pair) with Customized Heat Molded Multidensity Innersoles (3 Pair) as directed Dx: NIDDM/Polyneuropathy (E11.42), Hammertoe Foot Deformity (M20.41,M20.42), Preulcerative Skin Lesion(s) (L85.1Taking Calcitriol 0.25 MCG Capsule Oral Not-Taking/PRNTrulicity , Notes: start in 1 week stop januviaFarxiga 10 MG Tablet 1 tablet Orally morningDeclomycin Extra Depth Diabetic Shoes with 3 Pair Custom heat-molded multi-density innersoles for 1 year Dx:Extra Depth Orthopedic Shoes (1 Pair) with Customized Heat Molded Multidensity Innersoles (3 Pair) as directed Dx: IDDM/Polyneuropathy (E10.42), Hammertoe Foot Deformity (M20.41,M20.42), Preulcerative Skin Lesion(s) (L85.1)hydroCHLOROthiazide 25 MG Tablet 1 tablet Orally Once a dayDitropan Vicodin , Notes: PRNMetformin & Diet Manage Prod 500 MG Miscellaneous as directed Orally Dulera Flonase Suspension 1 spray in each nostril Nasally Once a day, Notes: HOLDExtra-Depth Diabetic Shoes with 3 Pair Custom heat-molded multi- density innersoles . . for 1 year . Dx:Niddm with neuropathy, foot deformity and pre-ulcerative skin lesionsExtra-Depth Diabetic Shoes with 3 Pair Custom heat- molded multi-density innersoles . . 1pair shoes/3sets inserts . .Extra-Depth Diabetic Shoes with 3 Pair Custom heat-molded multi-density innersoles . . for 1 year . Dx:Invokana 300 MG Tablet 1 tablet Orally Once a dayExtra Depth Diabetic Shoes with 3 Pair Custom heat-molded multi-density innersoles for 1 year Dx:Ergocalciferol 20275 UNIT Capsule 1 capsule Orally Breo Ellipta Medication List reviewed and reconciled with the patientNot-Taking/PRN Trulicity , Notes: start in 1 week stop januviaNot- Taking/PRN Farxiga 10 MG Tablet 1 tablet Orally morningNot-Taking/PRN Declomycin Not- Taking/PRN Extra Depth Diabetic Shoes with 3 Pair Custom heat-molded multi-density innersoles for 1 year Dx:Not-Taking/PRN Extra Depth Orthopedic Shoes (1 Pair) with Customized Heat Molded Multidensity Innersoles (3 Pair) as directed Dx: IDDM/Polyneuropathy (E10.42), Hammertoe Foot Deformity (M20.41,M20.42), Preulcerative Skin Lesion(s) (L85.1)Not-Taking/PRN hydroCHLOROthiazide 25 MG Tablet 1 tablet Orally Once a dayNot-Taking/PRN Ditropan Not-Taking/PRN Vicodin , Notes: PRNNot-Taking/PRN Metformin & Diet Manage Prod 500 MG Miscellaneous as directed Orally Not- Taking/PRN Dulera Not-Taking/PRN Flonase Suspension 1 spray in each nostril Nasally Once a day, Notes: HOLDNot-Taking/PRN Extra-Depth Diabetic Shoes with 3 Pair Custom heat- molded multi-density innersoles . . for 1 year . Dx:Niddm with neuropathy, foot deformity and pre-ulcerative skin lesionsNot-Taking/PRN Extra-Depth Diabetic Shoes with 3 Pair Custom heat-molded multi-density innersoles . . 1pair shoes/3sets inserts . .Not-Taking/PRN Extra-Depth Diabetic Shoes with 3 Pair Custom heat-molded multi-density innersoles . . for 1 year . Dx:Not-Taking/PRN Invokana 300 MG Tablet 1 tablet Orally Once a dayNot-Taking/PRN Extra Depth Diabetic Shoes with 3 Pair Custom heat-molded multi-density innersoles for 1 year Dx:Not-Taking/PRN Ergocalciferol 29988 UNIT Capsule 1 capsule Orally Not-Taking/PRN Breo Ellipta Medication List reviewed and reconciled with the patient * Allergies:?Erythromycin: GI upsetCipro: GI upsetBacitracin: swelling,itchyTobraDex: swelling, itchyBactrim: GI upsetyes[Allergies Verified] Objective: * Vitals:?Ht: 5 ft 3 in, Wt: 2 57, BMI: 45.52, Shoe size: 10, BP: 130/62 mm Hg, BS: 82, Ht-cm: 160.02 cm, Wt-k.57 kg. * ???Past Orders: ???Lab:HEMOGLOBIN A1C (GLYCO HEMOGLOBIN) (Order Date - 09/29/2023) (Collection Date - 09/29/2023) ? Value Reference Range ?HEMOGLOBIN A1C % (HH) 6.8 * Examination: ???Neurological: ?SENSORY:?Neurological exam demonstrates, reduced vibration sensation, at Forefoot, at Midfoot, B/L, 5.07 monofilament test performed at plantar aspects of 5 varied sites per foot shows sensation, reduced , at Forefoot, B/L, Neurological exam demonstrates mild pop of tatum achilles tendons.?TINEL'S COMPRESSION:?negative tarsal tunnel, lei pedis, and medial calcaneal nerves b/l.?BABINSKI REFLEX:?absent.?Vascular: ?DP PULSES:? 05/03, B/L.?PT PULSES:? 05/03, B/L.?CAPILLARY FILL TIME:?3 secs. per digit, b/l.?SKIN TEMPERTURE GRADIENT OF THE LOWER EXTERMITIES:?warm to cool, proximal to distal.?HAIR GROWTH/TEXTURE/ELASTICITY/TURGOR:?absent.?PIGMENTATION:?normal, B/L.?EDEMA:? /4, B/L, Ankle(s), Leg(s).?TELANGECTASIA:?absent.?VARICOSITIES:?absent.?Nails: ?NAILS are:?elongated, overgrown, dystrophic, greater than 3mm thick, discolored and friable with crumbly malodorous subungual debris, with pain on palpation, 1- 5 Left foot, T9, T6.?Dermatologic: ?SKIN FINDINGS:? Skin exam reveals Keratotic lesion(s) located at, Medial plantar, IPJ, TA, T5, Plantar, T6, Skin shows sign(s) of, dryness, scaling, in a stocking fashion, no fissure(s) present, B/L.?Orthopedic: ?MUSCLE STRENGTH:?5/5 all groups in a symmetrical fashion tatum .?GAIT ABNORMALITY:?pronated, abducted, b/l .?BUNION:?Medially prominent 1st MPJ, Dorsally prominent 1st MPJ , (+) Pain on palpation, B/L, Lateral tracking 1st MPJ incompletely reducable.?DIGITAL DEFORMITIES:?Digital contracture, 2-5 tatum with t7 underlapping t6.?General Examination: ?GENERAL APPEARANCE:?alert, well hydrated, in no distress , good attention to hygiene.?ORIENTED:?person,place, and time.?FOOT EXAM:?Ophthalmology Referral: ?DIABETES EYE EXAM? Assessment: * Assessment: 1.?Type 1 diabetes mellitus with diabetic polyneuropathy - E10.42 (Primary)?2.?Tinea unguium - B35.1?3.?Ingrowing nail - L60.0?4.?Pain in right toe(s) - M79.674?5.?Pain in left toe(s) - M79.675?6.?Hallux valgus (acquired), left foot - M20.12 7.?Hallux valgus (acquired), right foot - M20.11?8.?Eczema, unspecified type - L30.9?9.?Xerosis cutis - L85.3?10.?Other hammer toe(s) (acquired), right foot - M20.41?11.?Other hammer toe(s) (acquired), left foot - M20.42?12.?Achilles tendinitis, right leg - M76.61?13.?Achilles tendinitis, left leg - M76.62? Plan: * Treatment: * Procedures:?Debride Nail 6-10:?Nail debridement?Nail debridement performed extensively to reduce/remove overall nail length and girth, subungual debris, and necrotic tissue, by manual and electrical means with use of a nail nipper and/or dremel, to more viable healthy nail plate or bed tissue 6-10. Silver nitrate used for any petechial bleeding as necessary. Patient chooses, no pharmaceutical tx (68862).?Keratoma Treatment:?Parring or Cutting of Benign Hyperkeratotic Lesion(s)?32147 (2-4 Lesions) - The Benign hyperkeratotic lesions, as described above were pared, and/or cut utilizing a sterile #15 blade, tissue nippers, and/or dremel.? * Procedure Codes:?84088 DEBRI DE NAIL, 6 OR MORE, Modifiers: XS 40788 TRIM SKIN LESIONS, 2 TO 4, Modifiers: XS * Follow Up:?2 Months, 3 Month s * Images: * Sign off status: Completed true * Provider:?Alexis Martinez DPM Date:? 024 Generated for Jeannie grady/Kevin/Cony on:?06/18/2024 09:57 AM EST History and Physical Notes * HPI (History of Present Illness) Category Sub-Category Detail Notes Category Not es Heel pain Duration: several weeks Nature: aching Severity/Quality: mild Location: Back of heel, B/L Onset/Cause: unknown Toe pain Nature: aching Location: 5th toe, B/L feet Duration: several months Onset/Cause: shoe gear Painful Nails Pt States Last PCP Visit: Date:: 12/16/2023 Examination Category Sub-Category Detail Notes Category Not [...]
--- OUTSIDE RECORDS SUMMARY | 2024-06-18 09:58 | XMS_ITS ---
Author Organization Omid Jimenes MD Address [address] [place] [phone] Care Team Providers Care Stretch Box Tender Name Role Phone Omid Jimenes Primary Care Provider REASON FOR VISIT mammogram order updated Encounters Encounter Location Date Provider Diagnosis Omid Jimenes MD [address] [place] [phone] 03/07/2024 Omid Jimenes Breast cancer screening Z12.31 Assessments Encounter Date Diagnosis (ICD Code) Assessment Notes Treatment Notes Treatment Clinical Notes Section Notes 03/07/2024 Breast cancer screening (ICD-10 - Z12.31) Plan Of Treatment Pending Test Test Name Order Date MAMMOGRAM DIGITAL BILATERAL SCREEN 03/07 Next Appt Details Provider Name:Omid Akhtar ier, 09/26/2024 07:45:00 AM, [address] [place] [address] Drive, [address], [place], [place], [phone], Provider Name:Omid Akhtar ier, 09/29/2024 02:00:00 PM, [address] [place] [address] Drive, [address], [place], [place], [phone], Provider Name:Omid Akhtar ier, 02/24/2025 07:15:00 AM, [address] [place] [address], [address], [place], [place], [phone], Provider Name:Omid Akhtar ier, 03/03/2025 02:30:00 PM, [address] [place] [address], Suite [facility], [place], [place], [phone], Progress Notes * Vy WAITE LDOB:1945 (78 yo F)Acc No.[id number]:03/07/2024 Patient:?Vy Waite L :1945???Age:78 Y???Sex:Female Address:[address] [place] [address] Subjective: * Chief Complaints: * ???Mammogram order updated * Medical History:? * Surgical History:? * Hospitalization/Major Diagno stic Procedure:? * Medications:? Objective: Assessment: * Assessment: 1.?Breast cancer screening - Z12.31? Plan: * Treatment: * Procedure Codes:? * true * Date:? Generated for Jeannie grady/Kevin/eTransmitting on:?06/18/2024 09:58 AM EST
--- OUTSIDE RECORDS SUMMARY | 2024-06-18 09:58 | XMS_ITS ---
Author Organization Omid Jimenes MD Address [address] [place], [place] [id number] Care Team Providers Care Angle Bender Name Role Phone Omid Jimenes Primary Care Provider Reason For Referral Reason osteopenia of hip p lease eval and treat Diagnosis 1 Osteopenia of hip, u nspecified laterality (M85.859) Referral Organization Omid Jimenes MD Referring Provider First Name Omid Referring Provider Last Name Jalil Referring Provider Speciality Internal M edicine Referred Provider Patrice Jay Referred Provider Specialty Endocrinolog y General Notes Charlette Mcdaniel 09:44:28 AM EST > referral faxed , Charlette Mcdaniel 03/18/2024 02:42:54 PM EST > patient is aware of appt Referral Priority Routine Referral Appointment Date 03/25/2024 REASON FOR VISIT bone density results Encounters Encounter Location Date Provider Diagnosis Omid Jimenes MD [address] [place] [address] [place] [phone] 03/06/2024 Omid Jimenes Plan Of Treatment Referrals Referral Date Details 03/07/2024 03/07/2024, osteopen ia of hip please eval and treat , Patrice Jay Next Appt Details Provider Name:mOid Akhtar ier, 09/26/2024 07:45:00 AM, [address] [place] [address], [address] [facility], [place], [place], [phone], Provider Name:Omid Akhtar ier, 09/29/2024 02:00:00 PM, [address] [place] [address], [address] [facility], [place], [place], [phone], Provider Name:Omid Akhtar ier, 02/24/2025 07:15:00 AM, [address] [place] [address], [address] [facility], [place], [place], [phone], Provider Name:Omid jor, 03/03/2025 02:30:00 PM, [address] [place] [address], [address] [facility], [place], [place], [phone], Progress Notes * Vy WAITE LDOB:1945 (78 yo F)Acc No.[id number]:03/06/2024 Patient:?Vy Waite :1945???Age:78 Y???Sex:Female Address:[address] [place] [address] Subjective: * Chief Complaints: * ???Bone density results * Medical History:? * Surgical History:? * Hospitalization/Major Diagno stic Procedure:? * Medications:? Objective: Assessment: Plan: * Treatment: * Procedure Codes:? * true * Date:? Generated for Jeannie grady/Kevin/eTransmitting on:?06/18/2024 09:58 AM EST Consultation Request Notes Referral Date Referring Provider Referred Provider Not es 03/07/2024 Omid Jimenes, Patrice shannon of hip please eval and treat
--- OUTSIDE RECORDS SUMMARY | 2024-06-18 09:58 | XMS_ITS | Clinical Summary ---
Author Organization [facility] ity Address [address] [place] [address] Care Team Providers Care Chief Vendor Quality Name Role Phone Omid Jimenes MD Primary Care Provider Unav ailable Social History Tobacco Use Types Packs/Day Years Used Date Smoking Tobacco: Former Smokeless Tobacco: Never Alcohol Use Standard Drinks/Week Comments Yes 0 (1 standard drink = 0.6 oz pur e alcohol) Comments Unknown Sex and Gender Information Value Date Recorded Sex Assigned at Not on file Legal Sex Female 4:49 PM EST Gender Identity Not on file Sexual Orientation Not on file Obstetrics History Plan of Treatment Health Maintenance Due Date Last Done Comments DTaP,Tdap,and Td Vaccines (1 - Tdap) 07/04/1963 Pneumococcal Vaccine: 50+ Ye ars (1 of 2 - PCV) 07/04/1963 Zoster Vaccines (1 of 2) 1994 RSV Immunization Patients 60 + Years Old (1 - 1-dose 75+ series) 07/04/2019 Depression Screening 03/29/2022 Falls Risk Assessment 03/29/2022 Hepatitis C Screening 03/29/2022 Osteoporosis Screening (Bone Density Screening) 03/29/2022 Social Influencers of Health Screening 03/29/2022 COVID-19 Vaccine ( - 2023-2 5 season) 2023 Influenza Vaccine (#1) 2023 HIB Vaccines Aged Out No longer eligi ble based on patient's age to complete this topic HPV Vaccines Aged Out No longer eligi ble based on patient's age to complete this topic Hepatitis A Vaccines Aged Out No long er eligible based on patient's age to complete this topic Hepatitis B Vaccines Aged Out No long er eligible based on patient's age to complete this topic IPV Vaccines Aged Out No longer eligi ble based on patient's age to complete this topic MMR Vaccines Aged Out No longer eligi ble based on patient's age to complete this topic Meningococcal ACWY Vaccine Aged Out N o longer eligible based on patient's age to complete this topic Meningococcal B Vacine Aged Out No lo nger eligible based on patient's age to complete this topic RSV Immunization Patients Un radha 20 months Aged Out No longer eligible b ased on patient's age to complete this topic Varicella Vaccines Aged Out No longer eligible based on patient's age to complete this topic Care Teams Chief Vendor Quality Relationship Specialty Start Date End Date Omid Jimenes MD [address] [place] [address] PCP - General 12/21/10
--- OUTSIDE RECORDS SUMMARY | 2024-06-18 09:58 | XMS_ITS ---
Author Organization [facility] Address [address] [place] [address] Care Team Providers Care Fish Roe Technician Name Role Phone Omid Jimenes MD Primary Care Provider Sushila Campos Unavailable [phone] Allergies Allergen (clinical drug ingredient) Drug/Non Drug Allergy documented on EMR Reaction Allergy Type Onset Date Status bacitracin Bacitracin swelling,itchy Drug Allergy Active sulfamethoxazole / trimethoprim Bactrim GI upset Drug Allergy Active ciprofloxacin Cipro GI upset Drug Allergy Act manolo erythromycin Erythromycin GI upset Drug Allergy A ctive dexamethasone / tobramycin TobraDex swelling, itchy Drug Allergy Active REASON FOR VISIT Pcp-02/29/24, At Risk Footcare Medications Medication SIG (Take, Route, Frequency, Duration) Notes Start Date End Date Status Ferrous Sulfate 325 (65 Fe) MG 1 tablet Orally Once a day for 30 day(s) Active Florastor 250 MG 1 capsule Orally Twice a day for 30 day(s) Active DULoxetine HCl 60 MG as directed Orally Once a day Active EPINEPHrine PRN Active Dymista Active Cephalexin PRN Active Diovan 160mg 1 tablet Orally Once a day for 30 day(s) Active Bepreve 1.5 % 1 drop into affected eye Ophthalmic Twice a day Active Colchicine PRN Active Allopurinol 100 MG as directed Orally Active Lorena Active Albuterol as directed PRN Active Amoxicillin 250 MG USE 1 SUPPOSITORY RECTALLY TWICE A DAY Oral for 7 PRN Active Atorvastatin Calcium Active Breo Ellipta Not-Jaylen ing Extra-Depth Diabetic Shoes with 3 Pair Custom heat-molded multi-density innersoles . 1pair shoes/3sets inserts . . for 1 year Not-Taking Extra-Depth Diabetic Shoes with 3 Pair Custom heat-molded multi-density innersoles . for 1 year . Dx: for . 10/05/2014 Not-Taking Ergocalciferol 37756 UNIT 1 capsule Oral ly for 30 day(s) Not-Taking Invokana 300 MG 1 tablet Orally Once a day Not-Taking Extra Depth Diabetic Shoes with 3 Pair Custom heat-molded multi-density innersoles for 1 year Dx: 10/06/2015 Not-Taking Extra-Depth Diabetic Shoes with 3 Pair Custom heat-molded multi-density innersoles . for 1 year . Dx:Niddm with neuropathy, foot deformity and pre-ulcerative skin lesions for . 07/10/2013 Not-Taking Dulera Not-Taking Flonase 1 spray in each nostril Nasally Once a day for 30 day(s) HOLD Not-Taking Vicodin PRN Not-Taking Metformin & Diet Manage Prod 500 MG as directed Orally Not-Takin g Extra Depth Orthopedic Shoes (1 Pair) with Customized Heat Molded Multidensity Innersoles (3 Pair) as directed Dx: IDDM/Polyneuropath y (E10.42), Hammertoe Foot Deformity (M20.41,M20.42), Preulcerative Skin Lesion(s) (L85.1) 04/04/2017 Not-Taking Extra Depth Diabetic Shoes with 3 Pair Custom heat-molded multi-density innersoles for 1 year Dx: 10/03/2017 Not-Taking Declomycin Not-Takin g Ditropan Not-Taking hydroCHLOROthiazide 25 MG 1 tablet Orall y Once a day for 30 day(s) Not-Taking Extra Depth Orthopedic Shoes (1 Pair) with Customized Heat Molded Multidensity Innersoles (3 Pair) as directed Dx: NIDDM/Polyneuropat hy (E11.42), Hammertoe Foot Deformity (M20.41,M20.42), Preulcerative Skin Lesion(s) (L85.1 Active ZyrTEC Allergy Activ e Farxiga 10 MG 1 tablet Orally morning Not-Taking Trulicity start in 1 week stop januvia Not-Taking Calcitriol 0.25 MCG Oral for 30 Active Synthroid Active Vitamin C Active Vancomycin HCl 125 MG USE 1 SUPPOSITORY RECTALLY TWICE A DAY Oral for 14 PRN Active Valsartan Active Spiriva Respimat Act manolo Prochlorperazine PRN Act manolo predniSONE 10 MG Oral for 12 PRN A ctive tylenol Active Potassium Chloride ER Active PriLOSEC 20 MG 1 capsule Orally Once a day for 30 day(s) Active Omeprazole Active Meclizine HCl 25 MG 1 tablet as needed Orally Once a day for 30 day(s) PRN Active oxyCODONE HCl PRN Active Nucala Active Magnesium Oxide 400 MG 1 tablet as neede d Orally Once a day for 30 day(s) Active Ibuprofen 800mg 1 tablet as needed Orally every 6 hrs PRN Active Levothyroxine Sodium 75 MCG 1 tablet on an empty stomach in the morning Orally Once a day Active Lantus 37 units injections Act manolo Januvia Active K-Tab 10 MEQ 1 tablet with food Orally Twice a day for 30 day(s) Active Gabapentin 100 MG 1 capsule Orally morning 400 MG at night Active HYDROcodone-Acetaminophen 7.5-325 MG 1 tablet as needed Orally every 6 hrs Active Fluticasone Propionate Active Furosemide Active Social History Tobacco Use: Social History Observation Description Date Details (start date - stop date) Never Smoker NA - NA Tobacco Use/Smoking Question Answer Notes Are you a: nonsmoker Tobacco use other than smoking: Question Answer Notes Are you an other tobacco user? No Problems Problem Type SNOMED Code ICD Code Onset Dates Problem Status W/U Status Risk Notes Problem Polyneuropathy due to type 2 diabetes mellitus (329569221) Type 2 diabetes mellitus with diabetic polyneuropathy (E11.42) Active confirmed Problem Polyneuropathy due to diabetes mellitus type I (157686489) Type 1 diabetes mellitus with diabetic polyneuropathy (E10.42) Active confirmed Vital Signs Height 5 ft 3 in in 03/06/2024 Weight 257 lbs 03/06/2024 BMI 45.52 kg/m2 03/06/2024 Procedures Procedure Date Ordered Date Performed Result Body Sit e 62037-HCRWAST NAIL, 6 OR MORE 03/06/2024 N/A 25451-VJRB SKIN LESIONS, 2 TO 4 03/06/2024 N/A Encounters Encounter Location Date Provider Diagnosis [facility] [address] [address] 03/06/2024 Sushila Heredia Type 1 diabetes mellitus with diabetic polyneuropathy E10.42 and Tinea unguium B35.1 Assessments Encounter Date Diagnosis (ICD Code) Assessment Notes Treatment Notes Treatment Clinical Notes Section Notes 03/06/2024 Type 1 diabetes mellitus with diabetic polyneuropathy (ICD-10 - E10.42) 03/06/2024 Tinea unguium (ICD-10 - B35.1) Plan Of Treatment Pending Test Test Name Order Date 97949-KZPIJMC NAIL, 6 OR MORE 03/06/2024 39317-ZTMJ SKIN LESIONS, 2 TO 4 03/06/20 24 Next Appt Details Follow Up: prn, Reason: Provider Name:Brittany shannon, 07/18/2024 01:30:00 PM, [address] [place] [address], [phone], Provider Name:Sushila Garcia sameera, 09/24/2024 02:30:00 PM, [address] [place] [address], [phone], Procedure Notes * Category Sub-Category Detail Notes Debride Nail 6-10 Nail debridement Performance o f this nail treatment by a nonprofessional would put this patients foot and overall health at risk. Therefore, debridement to affected nail(s) as described in exam was performed extensively to reduce/remove overall nail length, girth, thickness, subungual debris, and necrotic tissue, by manual and/or electrical means through the use of a nail nipper and/or dremel-type level vial inside grinder, to a more viable healthy nail plate or bed tissue 6-10. Silver nitrate used for any petechial bleeding as necessary. Definitive antifungal treatment options have been reviewed and discussed with the patient. The patient chooses, no pharmaceutical tx - 43980 Keratoma Treatment Parring or Cutting o f Benign Hyperkeratotic Lesion(s) (-56) 2-4 Lesions - The Benign hyperkeratotic lesions, as described in exam, were pared, and/or cut utilizing a sterile 15 blade, tissue nippers, and/or dremel - 11658 Progress Notes * Vy FISHMAN LDOB:1945 (78 yo F)Acc No.[id number]:03/06/2024 Progress Note Patient:?Vy Fishman Provider:?Sushila Heredia DPM :1945???Age:78 Y???Sex:Female D ate:03/06/2024 Address:[address], [place], [id number] Pcp:Omid Jimenes MD Subjective: * Chief Complaints: * ???Pcp-02/29/24At Risk Footc are * HPI: ???At Risk footcare:?Pt States Last PCP Visit:?Date?02/29/2024 * ROS:?General/Constitutional:?Nausea?denies.?Vomiting?denies.?Hunger Thirst?denies.?Loss appetite?denies.?Chills?denies.?Fatigue?denies.?Fever?denies.?Night Sweats?denies.?Unexplained weight loss?denies.?Unexplained weight gain?denies.?HEENTM:?Dentures?denies.?Dizziness?denies.?Glasses/contacts?admits.?Retinopathy?den ies.?Blurred/double vision?denies.?TMJ?denies.?Discharge/drainage?denies.?Implants?denies.?Sore throat?denies.?Dental implants?denies.?Hard of hearing ?denies.?Difficulty chewing/swallowing/speaking?denies.?Nose bleeds?denies.?Sore mouth?denies.?Respiratory:?On O xygen?denies.?Pneumonia/pleurisy?denies.?Bronchitis?denies.?Emphysema?denies.?Co ughing?denies.?Cough blood?denies.?Shortness of breath?denies.?Wheezing?denies.?Cardiovascular:?Pacemaker?denies.?MVP?denies.?WPW?denies.?CHF?denies.?Heart attack?denies.?Septal defect?denies.?Rapid beat?denies.?Chest pain ?denies.?Atrial Fib.?denies.?Murmur/Palpitations?denies.?Gastrointestinal:?Hemorrhoids?denies.?Stomach/Abdominal pain?denies.?Dark blood stool?denies.?Irritable bowel ?denies.?Constipation?denies.?Diarrhea?denies.?Hematology:?Swelling?denies.?Clots?denies.?Varicose Veins?denies.?Bruising?denies.?Bleeding problem?denies.?Genitourinary:?Blood urine?denies.?Frequent/Painfu/urination/bladder control?denies.?Kidney stones?denies.?Infection (UTI)?denies.?Nephropathy?denies.?sex trans dis (STD)?denies.?Prostate?denies.?Musculoskeletal:?Hammertoes?denies.?Bunions?denies.?Back Pain?denies.?Muscle Cramps/ Resting?denies.?Muscle cramps / walking?denies.?Generalized aches and pains?denies.?Weakness?denies.?Integ.:?Rudd?denies.?Scars?denies.?Corns/calluses?denies.?Ingrown nails?denies.?Painful nails?denies.?Open Sores?denies.?Rashes?denies.?Neurologic:?Difficulty sleeping?denies.?Brain disorder?denies.?Numbness?denies.?Balance t rouble?denies.?Confusion?denies.?Fainting/blackouts?denies.?Tingling?denies.?Cash mors?denies.? * Medical History:? * Surgical History:?lap band c ataract surgery blepheroplasty cholecystectomy oral surgery bone graft 2014oral implants and tissue graft 2014Cervical disc replacement. 05/07/2017Heart Catheterization 01/12/21aortic valve 03/16/21 * Hospitalization/Major Diagno stic Procedure:?[facility], Cervical disc replacement, 1 day stay. 05/07/2017Susan Casanova-Systemic Gout 9 day stay- Discharged to rehab- 12 days-Went back to [facility] and rehab 10/2018-01/10/2019Comonae Csaanova- Constipation, swelling, 12/21 * Family History:?Mother: dece [...] heat-molded multi-density innersoles for 1 year Dx:Ergocalciferol 67032 UNIT Capsule 1 capsule Orally Breo Ellipta Not-Taking/PRN Trulicity , Notes: start in 1 week stop januviaNot-Taking/PRN Farxiga 10 MG Tablet 1 tablet Orally morningNot-Taking/PRN Declomycin Not-Taking/PRN Extra Depth Diabetic Shoes with 3 Pair Custom heat- molded multi-density innersoles for 1 year Dx:Not-Taking/PRN Extra Depth Orthopedic Shoes (1 Pair) with Customized Heat Molded Multidensity Innersoles (3 Pair) as directed Dx: IDDM/Polyneuropathy (E10.42), Hammertoe Foot Deformity (M20.41,M20.42), Preulcerative Skin Lesion(s) (L85.1)Not-Taking/PRN hydroCHLOROthiazide 25 MG Tablet 1 tablet Orally Once a dayNot-Taking/PRN Ditropan Not-Taking/PRN Vicodin , Notes: PRNNot- Taking/PRN Metformin & Diet Manage Prod 500 MG [...] multi-density innersoles for 1 year Dx:Not-Taking/PRN Ergocalciferol 04343 UNIT Capsule 1 capsule Orally Not-Taking/PRN Breo Ellipta * Allergies:?Erythromycin: GI upsetCipro: GI upsetBacitracin: swelling,itchyTobraDex: swelling, itchyBactrim: GI upsetyes[Allergies Verified] Objective: * Vitals:?Ht: 5 ft 3 in, Wt: 2 57, BMI: 45.52, Shoe size: 10, BS: 102, Ht-cm: 160.02 cm, Wt-k.57 kg. * ???Past Orders: ???Lab:HEMOGLOBIN A1C (GLYCO HEMOGLOBIN) (Order Date - 02/29/2024) (Collection Date - 02/29/2024) ? Value Reference Range ?TOTAL HEMOGLOBIN (HGBA1C) 5.9 * Examination: ???General Examination: ?GENERAL APPEARANCE:?Reveals a pleasant, alert, well nourished, well- developed, well hydrated individual, who demonstrates proper attention to hygiene/body habitus, and is in no acute distress, Pt serves as own historian for office visit today.?ORIENTED:?person, place, and time.?Neurological: ?SENSORY:?Neurological exam demonstrates reduced sharp/dull pin prick discrimination reduced light touch sensation reduced vibration sensation reduced proprioception sensation in a stocking fashion 5.07 monofilament test performed at plantar aspects of 5 varied sites per foot shows sensation plantar aspects absent at Forefoot B/L.?Nails: ?NAILS are:?Elongated, overgrown, dystrophic, lytic, greater than 3mm thick, discolored and friable with crumbly malodorous subungual debris 1-5 Left foot, T9, T6.?Dermatologic: ?SKIN FINDINGS:?Skin exam reveals Keratotic lesion(s) located at plantar heels B/L.?Vascular: ?DP PULSES(B):?05/03, B/L.?PT PULSES(B):? /, B/L.?CAPILLARY FILL TIME:?3 secs. per digit, b/l.?TROPHIC CONDITION-TEXTURE/ELASTICITY/TURGOR/HAIR GROWTH(B):?absent.?TEMPERTURE GRADIENT(C):?warm to cool, proximal to distal.?PIGMENTATION:?normal, B/L.?EDEMA(C):? /, B/L, Ankle(s), Leg(s).?TELANGECTASIA:?absent.?VARICOSITIES:?absent.?Orthopedic: ?MUSCLE STRENGTH:?5/5 all groups in a symmetrical fashion, B/L?.?Ophthalmology Referral: ?DIABETES EYE EXAM? Assessment: * Assessment: 1.?Type 1 diabetes mellitus with diabetic polyneuropathy - E10.42?2.?Tinea unguium - B35.1? Plan: * Treatment: * Procedures:?Debride Nail 6-10:?Nail debridement?Performance of this nail treatment by a nonprofessional would put this patients foot and overall health at risk. Therefore, debridement to affected nail(s) as described in exam was performed extensively to reduce/remove overall nail length, girth, thickness, subungual debris, and necrotic tissue, by manual and/or electrical means through the use of a nail nipper and/or dremel-type level vial inside grinder, to a more viable healthy nail plate or bed tissue 6-10. Silver nitrate used for any petechial bleeding as necessary. Definitive antifungal treatment options have been reviewed and discussed with the patient. The patient chooses, no pharmaceutical tx - 47789.?Keratoma Treatment:?Parring or Cutting of Benign Hyperkeratotic Lesion(s)?(-56) 2-4 Lesions - The Benign hyperkeratotic lesions, as described in exam, were pared, and/or cut utilizing a sterile 15 blade, tissue nippers, and/or dremel - 26438.? * Procedure Codes:?61052 DEBRI DE NAIL, 6 OR MORE, Modifiers: XS 32815 TRIM SKIN LESIONS, 2 TO 4, Modifiers: XS * Follow Up:?prn * Images: * Sign off status: Completed true * Provider:?Sushila Heredia DPM Date:?05/06/2023 Generated for Jeannie grady/Kevin/eTransmitting on:?06/18/2024 09:58 AM EST History and Physical Notes * HPI (History of Present Illness) Category Sub-Category Detail Notes Category Not es At Risk footcare Pt States Last PCP Visit: Date: Examination Category Sub-Category Detail Notes Category Not es Neurological SENSORY: Neurological exa m demonstrates reduced sharp/dull pin prick discrimination reduced light touch sensation reduced vibration sensation reduced proprioception sensation in a stocking fashion 5.07 monofilament test performed at plantar aspects of 5 varied sites per foot shows sensation plantar aspects absent at Forefoot B/L Dermatologic SKIN FINDINGS: Skin exam reveal s Keratotic lesion(s) located at plantar heels B/L Orthopedic GAIT ABNORMALITY: BUNION: DIGITAL DEFORMITIES: MUSCLE STRENGTH: 5/5 all groups in a symmetrical fashion, B/L General Examination GENERAL APPEARANCE: Reveals a pleasant, alert, well nourished, well-developed, well hydrated individual, who demonstrates proper attention to hygiene/body habitus, and is in no acute distress, Pt serves as own historian for office visit today ORIENTED: person, place, and t mounika Ophthalmology Referral DIABETES EYE EXAM Procedure Perform ed:: Yes ?Date of Exam Performed: 09/29/2023 Findings of Diabetic Eye Exam:: no retin opathy Vascular DP PULSES (B): 1/4, B/L PT PULSES (B): 1/4, B/L CAPILLARY FILL TIME: 3 secs. per digit, b/l TEMPERTURE GRADIENT (C): warm to cool, p roximal to distal TROPHIC CONDITION-TEXTURE/EL ASTICITY/TURGOR/HAIR GROWTH (B): absent EDEMA (C): 1/4, B/L, Ankle(s), Leg(s) TELANGECTASIA: absent VARICOSITIES: absent PIGMENTATION: normal, B/L Nails NAILS are: Elongated, overg rown, dystrophic, lytic, greater than 3mm thick, discolored and friable with crumbly malodorous subungual debris 1-5 Left foot, T9, T6
--- OUTSIDE RECORDS SUMMARY | 2024-06-18 09:58 | XMS_ITS ---
Author Organization Omid Jimenes MD Address [address] [place] [phone] Care Team Providers Care Hospice Manager Name Role Phone Omid Jimenes Primary Care Provider Allergies Allergen (clinical drug ingredient) Drug/Non Drug Allergy documented on EMR Reaction Allergy Type Onset Date Status bacitracin bacitracin oint (uncoded) eye swelling Allergy Active Substance with sulfonamide structure and antibacterial mechanism of action (substance) sulfa (uncoded) GI UPSET Allergy Active Medicinal quinolone and acting as antibacterial agent (FN) quinolones (uncoded) knee pain Allergy Active pravastatin Pravachol cramps Drug Allergy Activ e atorvastatin Lipitor cramps Drug Allergy Acti ve dexamethasone / tobramycin tobradex (uncoded) redness swelling Allergy Active REASON FOR VISIT comp visit Medications Medication SIG (Take, Route, Frequency, Duration) Notes Start Date End Date Status Gabapentin 400 MG 1 capsule Orally Onc e a day for 90 days Active DULoxetine HCl 60 MG TAKE ONE CAPSULE BY MOUTH EVERY DAY Orally Once a day for 90 days Active CareOne Unifine Pentips Plus 31G X 6 MM USE DIRECTED TWO TIMES A DAY SUBCUTANEOUSLY sq Two times a day for 90 days Active Potassium Chloride ER 10 MEQ TAKE ONE TABLET BY MOUTH TWICE A DAY WITH FOOD Orally Twice a day for 90 days Active Dymista 137-50 MCG/ACT USE 1 SPRAY EACH NOSTRIL TWICE A DAY Nasal Twice a day for 90 days Active Calcitriol 0.25 MCG 1 capsule Orally Thr ee times a Week for 90 days Active ZyrTEC Allergy 10 MG 1 tablet Orally Onc e a day for 90 days Active traZODone HCl 50 MG 1 tablet at bedtime as needed Orally Once a day for 30 day(s) Active MiraLax 17 GM/SCOOP 1 scoop mixed with 8 ounces of fluid Orally Once a day for 90 days Active Bepreve 1.5 % INSTILL 1 TO 2 DROPS IN EACH EYE DAILY NEEDED Ophthalmic Twice a day for 20 days Active Lantus SoloStar 100 UNIT/ML as 100 units Subcutaneous 100 units units BID for 90 days Active Mounjaro 5 MG/0.5ML as directed Subcutan eous once weekly for 90 days 08/27/2023 Active Florastor 250 MG TAKE ONE CAPSULE BY MOUTH TWICE A DAY Orally twice a day for 90 days Active Calcitriol 0.25 MCG 1 capsule Orally Thr ee times a Week for 30 day(s) Activ e HYDROcodone-Acetaminophen 7.5-325 MG (Schedule II Drug) TAKE 1 TABLET BY MOUTH EVERY 8 HOURS NEEDED FOR PAIN Oral for 30 Active Ondansetron 4 MG 1 tablet on the tong ue and allow to dissolve Orally twicea day for 7 days 11/30/2023 Active Nystop 447097 UNIT/GM APPLY ONE APPLICAT ION EXTERNALLY TWO TIMES A DAY Externally Twice a day for 90 days Active Meclizine HCl 25 MG TAKE ONE TABLET BY M OUTH TWICE A DAY NEEDED Orally every 12 hrs for 28 days Active Ferrous Sulfate 325 (65 Fe) MG 1 tablet Orally Once a day for 90 days Active Allopurinol 100 MG TAKE TWO TABLETS BY MOUTH EVERY DAY Oral Once a day for 90 days Active Furosemide 80 MG TAKE ONE TABLET BY M OUTH TWICE A DAY Orally teice a day for 90 days Active Lipitor 20 MG 1 tablet Orally Once a day for 90 days Active Spiriva Respimat 1.25 MCG/ACT INHALE 2 PUFFS DAILY Inhalation Once a day for 90 days Active Ventolin HFA 108 (90 Base) MCG/ACT 2 puffs as needed Inhalation every 4 hrs for 90 days 10/30/2019 Active Flovent HFA 220 MCG/ACT USE 2 PUFFS TWIC E DAILY Inhalation Twice a day for 90 days Active Omeprazole 20 MG 1 capsule 30 minutes before morning meal Orally Once a day for 90 days Active Amoxicillin 500 MG 1 capsule Orally blank ry 8 hrs for 5 day(s) 06/20/2022 Active Benadryl Allergy 25 MG 2 tablet at bedti me as needed Orally twice aday for 90 days Active Gabapentin 100 MG 1 capsule Orally Onc e a day in the morning for 90 days Active Levothyroxine Sodium 75 MCG 1 tablet in the morning on an empty stomach Orally Once a day for 90 days Active Valsartan 80 MG TAKE ONE TABLET BY M OUTH EVERY DAY Orally Once a day for 90 days Active Aspir-Low 81 MG 1 tablet Orally Once a day for 90 days Active Social History Tobacco Use: Social History Observation Description Date Details (start date - stop date) Never Smoker NA - NA Tobacco Use/Smoking Question Answer Notes Patient is a nonsmoker Additional Findings: Tobacco Non-User Fo rmer smoker, currently using no form of tobacco Alcohol Screen Question Answer Notes Did you have a drink containing alcohol in the p ast year? No Points 0 Interpretation Negative Problems Problem Type SNOMED Code ICD Code Onset Dates Problem Status W/U Status Risk Notes Problem [id number] Chronic obstructive pulmonary disease, unspecified COPD type (J44.9) Active confirmed Vital Signs Blood pressure systolic 158 mm Hg 02/29/20 24 Blood pressure diastolic 76 mm Hg 024 Height 64 in 02/29/2024 Weight 252 lbs 02/29/2024 BMI 43.25 kg/m2 02/29/2024 weight is down 8 pounds [facility] 12-17-23 Encounters Encounter Location Date Provider Diagnosis Omid Jimenes MD [address] [place] [address] [place] [phone] 02/29/2024 Omid Jimenes Acute systolic congestive heart failure I50.21 ; Morbid obesity due to excess calories E66.01 and Chronic obstructive pulmonary disease, unspecified COPD type J44.9 Assessments Encounter Date Diagnosis (ICD Code) Assessment Notes Treatment Notes Treatment Clinical Notes Section Notes 02/29/2024 Acute systolic congestive heart failure (ICD-10 - I50.21) stable with coninuous shortness of breath/ order faxed to [facility] 02/29/2024 Morbid obesity due to excess calories (ICD-10 - E66.01) has lost some weight 02/29/2024 Chronic obstructive pulmonary disease, unspecified COPD type (ICD-10 - J44.9) stable Plan Of Treatment Treatment Notes Assessment Notes Acute systolic congestive heart failure stable with coninuous shortness of breath/ order faxed to [facility] Morbid obesity due to excess calories bradley s lost some weight Chronic obstructive pulmonar y disease, unspecified COPD type stable Pending Test Test Name Order Date MAMMOGRAM DIGITAL BILATERAL SCREEN 02/28 Next Appt Details Follow Up: 6 Months, Reason: Provider Name:Omid borden, 09/26/2024 07:45:00 AM, [address] [place] [address], [address], [phone], Provider Name:Omid borden, 09/29/2024 02:00:00 PM, [address] [place] [address], [address], [phone], Provider Name:Omid borden, 02/24/2025 07:15:00 AM, [address] [place] [address], [address], [phone], Provider Name:Omid borden, 03/03/2025 02:30:00 PM, [address] [place] [address], [address], [phone], Progress Notes * Vy WAITE LDOB:1945 (78 yo F)Acc No.[id number]:02/29/2024 Patient:?Vy Waite Provider:?Omid Jimenes MD :1945???Age:78 Y???Sex:Female D ate:02/29/2024 Address:[address] [place] [address] Subjective: * Chief Complaints: * ???Comp visit * HPI: ???Depression Screening:?PHQ-9?Little interest or pleasure in doing things?Not at all,?Feeling down, depressed, or hopeless?Not at all,?Trouble falling or staying asleep, or sleeping too much?Not at all,?Feeling tired or having little energy?Not at all,?Poor appetite or overeating?Not at all,?Feeling bad about yourself or that you are a failure, or have let yourself or your family down?Not at all,?Trouble concentrating on things, such as reading the newspaper or watching television?Not at all,?Moving or speaking so slowly that other people could have noticed; or the opposite, being so fidgety or restless that you have been moving around a lot more than usual?Not at all,?Thoughts that you would be better off or of hurting yourself in some way?Not at all,?Total Score?0.? pt is a 78 yo female here for follow up. pain from waist and into back. ???Communication Needs:?Communication Needs?Does the patient have a hearing impairment?No,?Does the patient have a vision impairment??Yes,?If yes, what is the vision impairment??Glasses,?Does the patient have a cognition impairment??No.?Fall Risk:?History?Have you had any falls with injury in the past year??No,?Have you had two or more falls in the past year??No.?SDOH Questions:?SDOH Questions?In the past year have you been worried about losing housing??No,?In the past year have you or any family members you live with been unable to get any of the following when it was really needed? Check all that apply:?None.? * ROS:?General/Constitutional:?Change in appetite?denies.?Chills?denies.?Fever?denies.?Ophthalmologic:?Blurred vision?denies.?Discharge?denies.?Pain?denies.?ENT:?Decreased hearing?denies.?Sore throat?denies.?Swollen glands?denies.?Endocrine:?Cold intolerance?denies.?Excessive thirst?denies.?Heat intolerance?denies.?Weight loss?denies.?Respiratory:?Cough?denies.?Shortness of breath at rest?denies.?Shortness of breath with exertion?denies.?Wheezing?denies.?Cardiovascular:?Chest pain at rest?denies.?Chest pain with exertion?denies.?Irregular heartbeat?denies.?Shortness of breath?denies.?Gastrointestinal:?Abdominal pain?denies.?Change in bowel habits?denies.?Diarrhea?denies.?Nausea?denies.?Rectal bleeding?denies.?Vomiting?denies .?Genitourinary:?Blood in urine?denies.?Difficulty urinating?denies.?Frequent urination?denies.?Urinary incontinence?Denies.?Musculoskeletal:?Painful joints?denies.?Weakness?denies.?Skin:?Dry skin?denies.?Itching?denies.?Denies?Mole(s),? changes in moles, new moles or any lesions of concern.?Denies?Photosensitivity.?Rash?denies.?Neurologic:?Dizziness?denies.?Fainting?denies.?Headache?denies.? * Medical History:? * Surgical History:? * Hospitalization/Major Diagno stic Procedure:? * Family History:?Father: dece ased 68 yrs.?Mother: 97 yrs, diagnosed with Alzheimer disease.?4 brother(s) , 5 sister(s) . 2 son(s) . .? Father-CVA Mother-Alzheimer\'s Atrial Fib 1 Brother, Denies mental health/substance abuse family history, No pertinent family medical history, No pertinent family medical history. * Social History:?Tobacco Use:?Tobacco Use/Smoking?Patient is a?nonsmoker,?Additional Findings: Tobacco Non-User?Former smoker, currently using no form of tobacco.?Drugs/Alcohol:?Alcohol Screen?Did you have a drink containing alcohol in the past year??No,?Points?0,?Interpretation?Negative.?Miscellaneous:?Caffeine: yes, frequency:, 2-3 cups per day. Children: yes. no Exercise. Home smoke detector use: yes. Housing: owning. Living with: family. Marital status: . Occupation: retired. Pets: none. no Travel outside of the [place]. * Medications:?TakingCalcitrio l 0.25 MCG Capsule 1 capsule Orally Three times a WeekHYDROcodone-Acetaminophen 7.5-325 MG Tablet (Schedule II Drug) TAKE 1 TABLET BY MOUTH EVERY 8 HOURS NEEDED FOR PAIN Oral Lantus SoloStar 100 UNIT/ML Solution Pen-injector as 100 units Subcutaneous 100 units units BIDMounjaro 5 MG/0.5ML Solution Pen-injector as directed Subcutaneous once weeklyFlorastor 250 MG Capsule TAKE ONE CAPSULE BY MOUTH TWICE A DAY Orally twice a dayMiraLax 17 GM/SCOOP Powder 1 scoop mixed with 8 ounces of fluid Orally Once a dayCalcitriol 0.25 MCG Capsule 1 capsule Orally Three times a WeekZyrTEC Allergy 10 MG Tablet 1 tablet Orally Once a daytraZODone HCl 50 MG Tablet 1 tablet at bedtime as needed Orally Once a dayBepreve 1.5 % Solution INSTILL 1 TO 2 DROPS IN EACH EYE DAILY NEEDED Ophthalmic Twice a dayCareOne Unifine Pentips Plus 31G X 6 MM Miscellaneous USE DIRECTED TWO TIMES A DAY SUBCUTANEOUSLY sq Two times a dayPotassium Chloride ER 10 MEQ Tablet Extended Release TAKE ONE TABLET BY MOUTH TWICE A DAY WITH FOOD Orally Twice a dayDymista 137-50 MCG/ACT Suspension USE 1 SPRAY EACH NOSTRIL TWICE A DAY Nasal Twice a dayGabapentin 400 MG Capsule 1 capsule Orally Once a dayDULoxetine HCl 60 MG Capsule Delayed Release Particles TAKE ONE CAPSULE BY MOUTH EVERY DAY Orally Once a dayValsartan 80 MG Tablet TAKE ONE TABLET BY MOUTH EVERY DAY Orally Once a dayAspir-Low 81 MG Tablet Delayed Release 1 tablet Orally Once a dayAmoxicillin 500 MG Capsule 1 capsule Orally every 8 hrsBenadryl Allergy 25 MG Tablet 2 tablet at bedtime as needed Orally twice adayGabapentin 100 MG Capsule 1 capsule Orally Once a day in the morningLevothyroxine Sodium 75 MCG Tablet 1 tablet in the morning on an empty stomach Orally Once a dayOmeprazole 20 MG Capsule Delayed Release 1 capsule 30 minutes before morning meal Orally Once a dayFurosemide 80 MG Tablet TAKE ONE TABLET BY MOUTH TWICE A DAY Orally teice a dayLipitor 20 MG Tablet 1 tablet Orally Once a daySpiriva Respimat 1.25 MCG/ACT Aerosol Solution INHALE 2 PUFFS DAILY Inhalation Once a dayFlovent HFA 220 MCG/ACT Aerosol USE 2 PUFFS TWICE DAILY Inhalation Twice a dayVentolin HFA 108 (90 Base) MCG/ACT Aerosol Solution 2 puffs as needed Inhalation every 4 hrsAllopurinol 100 MG Tablet TAKE TWO TABLETS BY MOUTH EVERY DAY Oral Once a dayOndansetron 4 MG Tablet Disintegrating 1 tablet on the tongue and allow to dissolve Orally twicea dayNystop 877182 UNIT/GM Powder APPLY ONE APPLICATION EXTERNALLY TWO TIMES A DAY Externally Twice a dayMeclizine HCl 25 MG Tablet TAKE ONE TABLET BY MOUTH TWICE A DAY NEEDED Orally every 12 hrsFerrous Sulfate 325 (65 Fe) MG Tablet 1 tablet Orally Once a dayMedication List reviewed and reconciled with the patientTaking Calcitriol 0.25 MCG Capsule 1 capsule Orally Three times a WeekTaking HYDROcodone-Acetaminophen 7.5-325 MG Tablet (Schedule II Drug) TAKE 1 TABLET BY MOUTH EVERY 8 HOURS NEEDED FOR PAIN Oral Taking Lantus SoloStar 100 UNIT/ML Solution Pen-injector as 100 units Subcutaneous 100 units units BIDTaking Mounjaro 5 MG/0.5ML Solution Pen-injector as directed Subcutaneous once weeklyTaking Florastor 250 MG Capsule TAKE ONE CAPSULE BY MOUTH TWICE A DAY Orally twice a dayTaking MiraLax 17 GM/SCOOP Powder 1 scoop mixed with 8 ounces of fluid Orally Once a dayTaking Calcitriol 0.25 MCG Capsule 1 capsule Orally Three times a WeekTaking ZyrTEC Allergy 10 MG Tablet 1 tablet Orally Once a dayTaking traZODone HCl 50 MG Tablet 1 tablet at bedtime as needed Orally Once a dayTaking Bepreve 1.5 % Solution INSTILL 1 TO 2 DROPS IN EACH EYE DAILY NEEDED Ophthalmic Twice a dayTaking [facility] Unifine Pentips Plus 31G X 6 MM Miscellaneous USE DIRECTED TWO TIMES A DAY SUBCUTANEOUSLY sq Two times a dayTaking Potassium Chloride ER 10 MEQ Tablet Extended Release TAKE ONE TABLET BY MOUTH TWICE A DAY WITH FOOD Orally Twice a dayTaking Dymista 137-50 MCG/ACT Suspension USE 1 SPRAY EACH NOSTRIL TWICE A DAY Nasal Twice a dayTaking Gabapentin 400 MG Capsule 1 capsule Orally Once a dayTaking DULoxetine HCl 60 MG Capsule Delayed Release Particles TAKE ONE CAPSULE BY MOUTH EVERY DAY Orally Once a dayTaking Valsartan 80 MG Tablet TAKE ONE TABLET BY MOUTH EVERY DAY Orally Once a dayTaking Aspir-Low 81 MG Tablet Delayed Release 1 tablet Orally Once a dayTaking Amoxicillin 500 MG Capsule 1 capsule Orally every 8 hrsTaking Benadryl Allergy 25 MG Tablet 2 tablet at bedtime as needed Orally twice adayTaking Gabapentin 100 MG Capsule 1 capsule Orally Once a day in the morningTaking Levothyroxine Sodium 75 MCG Tablet 1 tablet in the morning on an empty stomach Orally Once a dayTaking Omeprazole 20 MG Capsule Delayed Release 1 capsule 30 minutes before morning meal Orally Once a dayTaking Furosemide 80 MG Tablet TAKE ONE TABLET BY MOUTH TWICE A DAY Orally teice a dayTaking Lipitor 20 MG Tablet 1 tablet Orally Once a dayTaking Spiriva Respimat 1.25 MCG/ACT Aerosol Solution INHALE 2 PUFFS DAILY Inhalation Once a dayTaking Flovent HFA 220 MCG/ACT Aerosol USE 2 PUFFS TWICE DAILY Inhalation Twice a dayTaking Ventolin HFA 108 (90 Base) MCG/ACT Aerosol Solution 2 puffs as needed Inhalation every 4 hrsTaking Allopurinol 100 MG Tablet TAKE TWO TABLETS BY MOUTH EVERY DAY Oral Once a dayTaking Ondansetron 4 MG Tablet Disintegrating 1 tablet on the tongue and allow to dissolve Orally twicea dayTaking Nystop 294961 UNIT/GM Powder APPLY ONE APPLICATION EXTERNALLY TWO TIMES A DAY Externally Twice a dayTaking Meclizine HCl 25 MG Tablet TAKE ONE TABLET BY MOUTH TWICE A DAY NEEDED Orally every 12 hrsTaking Ferrous Sulfate 325 (65 Fe) MG Tablet 1 tablet Orally Once a dayMedication List reviewed and reconciled with the patient * Allergies:?quinolones: knee painsulfa: GI UPSETbacitracin oint: eye swellingtobradex: redness swellingLipitor: crampsPravachol: crampsyes[Allergies Verified] Objective: * Vitals:?Ht: 64, Wt:252, BMI: 43.25, BP:158/76 weight is down 8 pounds since 12-17-23. * ???Past Orders: ???Lab:Vitamin D 25-OH Total (Order Date - 02/19/2024) (Collection Date - 02/19/2024) ? Value Reference Range ?Vitamin D 25-OH Total 37.7 >30 - ng/mL ???Lab:Urine Culture (Order Date - 02/19/2024) (Collection Date - 02/19/2024) ? Value Reference Range ?Urine Culture urogenital contamination. - ???Lab:TSH reflex Free T4 (O rder Date - 02/19/2024) (Collection Date - 02/19/2024) ? Value Reference Range ?TSH reflex Free T4 3.76 0 .32-4.0 - uIU/mL ???Lab:Complete Blood Count Auto Diff (Order Date - 02/19/2024) (Collection Date - 02/19/2024) ? Value Reference Range ?White Blood Count 10.3 4. 8-10.8 - X10*3/uL ?Red Blood Count 3.84 L 4.20 -5.50 - X10*6/uL ?Hemoglobin 12.3 12.0-16.0 - g/dl ?Hematocrit 38.5 37.0-47.0 - % ?Mean Corpuscular Volume 100.3 H 80.0-98.0 - fL ?Mean Corpuscular Hemoglobin 32.0 27.0-33.0 - pg ?Mean Corpuscular HGB Conc 31.9 31.0-35.0 - g/dl ?Red Cell Distribution Width 14.9 11.0-16.0 - % ?Platelet Count 316 160-4 00 - X10*3/uL ?Mean Platelet Volume 10.8 9.4-12.3 - fL ?Neutrophils Percent Auto 62.0 45-73 - % ?Imm Gran Pct Auto 0.5 H 0. 0-0.4 - % ?Lymphocytes Percent Auto 26.7 20-40 - % ?Monocytes Percent Auto 8.6 2-11 - % ?Eosinophils Percent Auto 1.9 0-4 - % ?Basophils Percent Auto 0.3 0-2 - % ?NRBC Pct Auto 0.0 0.0-0. 2 - /100WBC ?Neutrophils Absolute Auto 6.4 2.0-8.3 - x10*3/uL ?Imm Gran Abs Auto 0.05 H 0. 00-0.03 - X10*3/uL ?Lymphocytes Absolute Auto 2.7 1.2-4.9 - X10*3/uL ?Monocytes Absolute Auto 0.9 0.1-1.2 - X10*3/uL ?Eosinophils Absolute Auto 0.2 0.0-0.4 - X10*3/uL ?Basophils Absolute Auto 0.0 0.0-0.2 - X10*3/uL ?NRBC Abs Auto 0.000 0.0-0. 012 - X10*3/uL ???Lab:Microalbumin, Random (Order Date - 02/19/2024) (Collection Date - 02/19/2024) ? Value Reference Range ?Creatinine Urine 88.42 - m g/dL ?Microalbumin Urine 32.0 - mg/L ?Microalbum Creatinine Ratio Ur 36.1 H <30 - ug/mg cr ???Lab:Comprehensive Moville. P iris Fast (Order Date - 02/19/2024) (Collection Date - 02/19/2024) ? Value Reference Range ?Sodium 141 135-145 - mmo l/L ?Bilirubin Total 0.5 0.0- 1.0 - mg/dL ?Aspartate Amino Transferase 36 H 5-31 - U/L ?Alanine Aminotransferase 23 0-31 - U/L ?Total Protein 7.5 6.5-8. 0 - g/dL ?Albumin Level 3.8 3.5-5. 0 - g/dL ?Alkaline Phosphatase 83 39-117 - U/L ?Potassium 4.4 3.3-5.1 - mmol/L ?Chloride 102 96-108 - mm ol/L ?Carbon Dioxide 27 22-29 - mmol/L ?Anion Gap 16 12-20 - ?Blood Urea Nitrogen 28 H 9-16 - mg/dL ?Creatinine 1.40 0.5-1.4 - mg/dL ?Estimated Glomerular Filt Rate 36 - ?Glucose Fasting 117 H 60-9 9 - mg/dL ?Calcium 10.4 H 8.4-10.2 - m g/dL ???Lab:Hemoglobin A1c (Order Date - 02/19/2024) (Collection Date - 02/19/2024) ? Value Reference Range ?Hemoglobin A1c % 5.9 <6. 0 - % ?Estimated Average Glucose 123 - mg/dL ???Lab:IRON PROFILE (Order D ate - 02/19/2024) (Collection Date - 02/19/2024) ? Value Reference Range ?Iron 84 30-160 - mcg/dL ?Total Iron Binding Capacity 256 228-428 - mcg/dL ?Percent Iron Saturation 33 15-50 - % ?Unsaturated Iron Binding 172 - ug/dL ???Lab:UA ClnCatch+Micro w/r flx Cult (Order Date - 02/19/2024) (Collection Date - 02/19/2024) ? Value Reference Range ?Color Urine Yellow - ?Appearance Urine Clear - ?PH 7.0 5.0-9.0 - ?Glucose Urine UA Negative Neg ative - mg/dL ?Urine Blood Negative Negative - ?Specific Cecilia - Urine 1.010 1.005-1.025 - ?Urine Protein Negative Neg-Tr marisel - mg/dL ?Urine Ketones Negative Negati ve - mg/dL ?Nitrite Urine Negative Negati ve - ?Leukocyte Esterase Urine Small (1+) A Negative - ?RBC Urine 0-2 0-2 - /HPF ?WBC Urine 6-10 A 0-5 - /HPF ?Squamous Epithelial Cell Urine 11-20 0-2 - /HPF ?Bacteria Urine 1+ None Seen - ?Hyaline Casts Urine 6-10 0-2 - /LPF ???Lab:Lipid Panel (Order Da te - 02/19/2024) (Collection Date - 02/19/2024) ? Value Reference Range ?Triglycerides 134 <150 - mg/dL ?Cholesterol 137 <200 - m g/dL ?LDL Cholesterol Calculated 69 <100 - mg/dL ?HDL Cholesterol 42 >40 - mg/dL * Examination: ???General Examination: ?GENERAL APPEARANCE:?well developed, well nourished, in no acute distress.?HEAD:?normocephalic, atraumatic.?EYES:?pupils equal, round, reactive to light and accommodation, sclera non-icteric.?EARS:?normal.?ORAL CAVITY:?mucosa moist.?THROAT:?clear.?NECK/THYROID:?neck supple, full range of motion, no cervical lymphadenopathy, no bruits.?SKIN:?warm and dry, no suspicious lesions.?HEART:?regular rate and rhythm, S1, S2 normal, no murmurs.?LUNGS:?clear to auscultation bilaterally.?BREASTS:?No mass, no lump.?ABDOMEN:?soft, nontender, nondistended, bowel sounds present, normal, no organomegaly , no masses palpable.?RECTAL EXAM:?stool guaiac negative , no masses palpable.?FEMALE GENITOURINARY:?done by hat model.?EXTREMITIES:?no clubbing, cyanosis, or edema.?NEUROLOGIC:?nonfocal, motor strength normal upper and lower extremities, sensory exam intact.? Assessment: * Assessment: 1.?Acute systolic congestive heart failure - I50.21 (Primary)?2.?Morbid obesity due to excess calories - E66.01?3.?Chronic obstructive pulmonary disease, unspecified COPD type - J44.9? Plan: * Treatment: Notes: stable with coninuous shortness of breath/ order faxed to [facility]??2.?Morbid obesity due to excess calories? Notes: has lost some weight??3.?Chronic obstructive pulmonary disease, unspecified COPD type? Notes: stable?? * Procedure Codes:? * Follow Up:?6 Months * * Sign off status: Completed true * Provider:?Omid Jimenes MD Date:?1 04/30/2023 Generated for Jeannie grady/Kevin/eTransmitting on:?06/18/2024 09:57 AM EST History and Physical Notes * HPI (History of Present Illness) Category Sub-Category Detail Notes Category Not es Depression Screening PHQ-9 Little inte rest or pleasure in doing things: Not at all pt is a 78 yo female here for follow up. pain from waist and into back. Feeling down, depressed, or hopeless: No t at all Trouble falling or staying asleep, or sl eeping too much: Not at all Feeling tired or having little energy: N ot at all Poor appetite or overeating: Not at all Feeling bad about yourself o r that you are a failure, or have let yourself or your family down: Not at all Trouble concentrating on thi ngs, such as reading the newspaper or watching television: Not at all Moving or speaking so slowly that other people could have noticed; or the opposite, being so fidgety or restless that you have been moving around a lot more than usual: Not at all Thoughts that you would be b manjula off or of hurting yourself in some way: Not at all Total Score: 0 SDOH Questions SDOH Questions In the past year have you been worried about losing housing?: No In the past year have you or any family members you live with been unable to get any of the following when it was really needed? Check all that apply:: None Fall Risk History Have you had any falls with injury i n the past year?: No Have you had two or more falls in the year?: No Communication Needs Communication Needs Does the patient have a hearing impairment: No Does the patient have a vision impairmen t?: Yes ?If yes, what is the vision impairment?: Glasses Does the patient have a cognition impair ment?: No Examination Category Sub-Category Detail Notes Category Not es General Examination GENERAL APPEARANCE: well dev eloped, well nourished, in no acute distress HEAD: normocephalic, atrau matic EYES: pupils equal, round, reactive to light and accommodation, sclera non- icteric EARS: normal THROAT: clear NECK/THYROID: neck supple, full ra nge of motion, no cervical lymphadenopathy, no bruits HEART: regular rate and rhy thm, S1, S2 normal, no murmurs LUNGS: clear to auscultatio n bilaterally ABDOMEN: soft, nontender, non distended, bowel sounds present, normal, no organomegaly , no masses palpable NEUROLOGIC: nonfocal, motor stre ngth normal upper and lower extremities, sensory exam intact SKIN: warm and dry, no dorota picious lesions EXTREMITIES: no clubbing, cyanosi s, or edema BREASTS: No mass, no lump RECTAL EXAM: stool guaiac negativ e , no masses palpable FEMALE GENITOURINARY: done by hat model ORAL CAVITY: mucosa moist
--- OUTSIDE RECORDS SUMMARY | 2024-06-18 09:58 | XMS_ITS ---
Author Organization [facility] Address [address] [facility] [place] [address] Care Team Providers Care Catering Coordinator Name Role Phone Omid Jimenes MD Primary Care Provider Sushila Campos Unavailable [phone] Allergies Allergen (clinical drug ingredient) Drug/Non Drug Allergy documented on EMR Reaction Allergy Type Onset Date Status bacitracin Bacitracin swelling,itchy Drug Allergy Active sulfamethoxazole / trimethoprim Bactrim GI upset Drug Allergy Active ciprofloxacin Cipro GI upset Drug Allergy Act manolo erythromycin Erythromycin GI upset Drug Allergy A ctive dexamethasone / tobramycin TobraDex swelling, itchy Drug Allergy Active REASON FOR VISIT At Risk Footcare Medications Medication SIG (Take, Route, Frequency, Duration) Notes Start Date End Date Status Extra Depth Diabetic Shoes with 3 Pair Custom heat-molded multi-density innersoles for 1 year Dx: 10/06/2015 Not-Taking Ergocalciferol 19509 UNIT 1 capsule Oral ly for 30 day(s) Not-Taking Breo Ellipta Not-Jaylen ing Invokana 300 MG 1 tablet Orally Once a day Not-Taking Extra-Depth Diabetic Shoes with 3 Pair Custom heat-molded multi-density innersoles . for 1 year . Dx: for . 10/05/2014 Not-Taking Extra-Depth Diabetic Shoes with 3 Pair Custom heat-molded multi-density innersoles . 1pair shoes/3sets inserts . . for 1 year Not-Taking Metformin & Diet Manage Prod 500 MG as directed Orally Not-Takin g Dulera Not-Taking Flonase 1 spray in each nostril Nasally Once a day for 30 day(s) HOLD Not-Taking Extra-Depth Diabetic Shoes with 3 Pair Custom heat-molded multi-density innersoles . for 1 year . Dx:Niddm with neuropathy, foot deformity and pre-ulcerative skin lesions for . 07/10/2013 Not-Taking Extra Depth Orthopedic Shoes (1 Pair) with Customized Heat Molded Multidensity Innersoles (3 Pair) as directed Dx: IDDM/Polyneuropath y (E10.42), Hammertoe Foot Deformity (M20.41,M20.42), Preulcerative Skin Lesion(s) (L85.1) 04/04/2017 Not-Taking hydroCHLOROthiazide 25 MG 1 tablet Orall y Once a day for 30 day(s) Not-Taking Ditropan Not-Taking Vicodin PRN Not-Taking Extra Depth Diabetic Shoes with 3 Pair Custom heat-molded multi-density innersoles for 1 year Dx: 10/03/2017 Not-Taking Farxiga 10 MG 1 tablet Orally morning Not-Taking Declomycin Not-Takin g Extra Depth Orthopedic Shoes (1 Pair) with Customized Heat Molded Multidensity Innersoles (3 Pair) as directed Dx: NIDDM/Polyneuropat hy (E11.42), Hammertoe Foot Deformity (M20.41,M20.42), Preulcerative Skin Lesion(s) (L85.1 Active Calcitriol 0.25 MCG Oral for 30 Active Trulicity start in 1 week stop januvia Not-Taking Valsartan 40 MG 1 tablet Orally Twice a day Active Vancomycin HCl 125 MG USE 1 SUPPOSITORY RECTALLY TWICE A DAY Oral for 14 PRN Active Vitamin C Active Spiriva Respimat Act manolo ZyrTEC Allergy Activ e predniSONE 10 MG Oral for 12 PRN A ctive tylenol Active Synthroid Active PriLOSEC 20 MG 1 capsule Orally Once a day for 30 day(s) Active Potassium Chloride ER Active Meclizine HCl 25 MG 1 tablet as needed Orally Once a day for 30 day(s) PRN Active oxyCODONE HCl PRN Active Magnesium Oxide 400 MG 1 tablet as neede d Orally Once a day for 30 day(s) Active Omeprazole Active Prochlorperazine PRN Act manolo K-Tab 10 MEQ 1 tablet with food Orally Twice a day for 30 day(s) Active Levothyroxine Sodium 75 MCG 1 tablet on an empty stomach in the morning Orally Once a day Active Lantus 37 units injections Act manolo Nucala Active Januvia Active Furosemide Active Fluticasone Propionate Active Gabapentin 100 MG 1 capsule Orally morning 400 MG at night Active HYDROcodone-Acetaminophen 7.5-325 MG 1 tablet as needed Orally every 6 hrs Active Ibuprofen 800mg 1 tablet as needed Orally every 6 hrs PRN Active Florastor 250 MG 1 capsule Orally Twice a day for 30 day(s) Active Dymista Active DULoxetine HCl 60 MG as directed Orally Once a day Active EPINEPHrine PRN Active Ferrous Sulfate 325 (65 Fe) MG 1 tablet Orally Once a day for 30 day(s) Active Allopurinol 100 MG as directed Orally Active Bepreve 1.5 % 1 drop into affected eye Ophthalmic Twice a day Active Colchicine PRN Active Cephalexin PRN Active Diovan 160mg 1 tablet Orally Once a day for 30 day(s) Active Amoxicillin 250 MG USE 1 SUPPOSITORY RECTALLY TWICE A DAY Oral for 7 PRN Active Lorena Active Atorvastatin Calcium Active Albuterol as directed PRN Active Social History Tobacco Use: Social History Observation Description Date Details (start date - stop date) Never Smoker NA - NA Tobacco Use/Smoking Question Answer Notes Are you a: nonsmoker Alcohol Screen Question Answer Notes Did you have a drink containing alcohol in the p ast year? No Points 0 Interpretation Negative Tobacco use other than smoking: Question Answer Notes Are you an other tobacco user? No Vital Signs Height 5 ft 3 in in 05/12/2024 Weight 257 lbs 05/12/2024 BMI 45.52 kg/m2 05/12/2024 Blood pressure systolic 130 mm Hg 05/12/19 25 Blood pressure diastolic 62 mm Hg 025 Procedures Procedure Date Ordered Date Performed Result Body Sit e 28154-XMNFZGI NAIL, 6 OR MORE 05/12/2024 N/A 80154-LKES SKIN LESIONS, 2 TO 4 05/12/2024 N/A Encounters Encounter Location Date Provider Diagnosis [facility] [address] [place] [address] 05/12/2024 Sushila Heredia Type 2 diabetes mellitus with diabetic polyneuropathy E11.42 and Tinea unguium B35.1 Assessments Encounter Date Diagnosis (ICD Code) Assessment Notes Treatment Notes Treatment Clinical Notes Section Notes 05/12/2024 Type 2 diabetes mellitus with diabetic polyneuropathy (ICD-10 - E11.42) 05/12/2024 Tinea unguium (ICD-10 - B35.1) Plan Of Treatment Pending Test Test Name Order Date 83363-HLNCFUC NAIL, 6 OR MORE 05/12/2024 68410-EACV SKIN LESIONS, 2 TO 4 05/12/19 Next Appt Details Follow Up: 3 Months, Reason: Provider Name:Brittany shannon, 07/18/2024 01:30:00 PM, [address] [place] [address], [phone], Provider Name:Sushila brasher, 09/24/2024 02:30:00 PM, [address] [place] [address], [phone], Procedure Notes * Category Sub-Category Detail Notes Debride Nail 6-10 Nail debridement Due to the cl inical pathology outlined in the exam findings, performance of this nail treatment is medically necessary as its management by an unskilled/untrained nonprofessional would put this patients foot and overall health at risk. Therefore, debridement to affected nail(s), as described in exam ( TA, T1, T2, T3, T4, T5, T6, T7, T8, T9, ), was performed exclusively by the physician of record to reduce/remove overall nail length, girth, thickness, subungual debris, and necrotic tissue, by manual and/or electrical means through the use of a nail nipper and/or dremel-type pocket grinder operator, to a more viable healthy nail plate or bed tissue 6-10 nails in total. Silver nitrate was used for any petechial bleeding as necessary. Definitive antifungal treatment options, both pharmaceutical and surgical, have been reviewed and discussed with the patient. The patient solely prefers the use of intermittent/as needed professional debridement services for their nail condition and understands the need for additional periodic treatments to maintain effectiveness in symptomatic relief - 81350 Keratoma Treatment Parring or Cutting o f Benign Hyperkeratotic Lesion(s) (-56) 2-4 Lesions - Due to the at risk nature of the patients medical condition as documented in the exam findings, performance of this keratoderma treatment is medically necessary as its management by an unskilled/untrained nonprofessional would put this patients foot and overall health at risk. Therefore, the benign hyperkeratotic lesions, ( 2) in total, locations as stated and described in the exam ( _plantar heels B/L), were pared, and/or cut utilizing a sterile 15 blade, tissue nippers, and/or power dremel instrumentation by the physician of record - 55590 Progress Notes * Vy FISHMAN LDOB:1945 (78 yo F)Acc No.[id number]:05/12/2024 Progress Note Patient:?Vy FISHMAN Provider:?Sushila Heredia DPM :1945???Age:78 Y???Sex:Female D ate:05/12/2024 Address:[address] [place] [address], [facility], [id number] Pcp:Omid Jimenes MD Subjective: * Chief Complaints: * ???At Risk Footcare * HPI: ???At Risk footcare:?Pt States Last [...] Discharged to rehab- 12 days-Went back to [facility] 10/2018-01/10/2019Comonae Casanova- Constipation, swelling, 12/21 * Family History:?Mother: dece ased, foot problems.?Father: , diagnosed with Unspecified essential hypertension, Unspecified cerebral artery occlusion with cerebral infarction.?Paternal uncle: foot problems.? * Social History:?Tobacco Use:?Tobacco Use/Smoking?Are you a:?nonsmoker ?Tobacco use other than smoking?Are you an other tobacco user??No ???Drugs/Alcohol:?Drugs?Have you used drugs other than those for medical reasons in the past 12 months??No ?Alcohol Screen?Did you have a drink containing alcohol in the past year??No ?Points?0 ?Interpretation?Negative ???Miscellaneous:?Caffeine: yes, frequency:, 2-3 cups per day. ?Children: yes, 2. ?Exercise: yes, occasional. ?Marital status: . ?Occupation: Retired. * Medications:?TakingAtorvasta tin Calcium Albuterol Powder as directed , Notes to Pharmacist: PRNAmoxicillin 250 MG Capsule USE 1 SUPPOSITORY RECTALLY TWICE A DAY Oral , Notes to Pharmacist: PRNAllegra Allopurinol 100 MG Tablet as directed Orally Bepreve 1.5 % Solution 1 drop into affected eye Ophthalmic Twice a day Colchicine , Notes to Pharmacist: PRNCephalexin , Notes to Pharmacist: PRNDiovan 160mg Tablet 1 tablet Orally Once a day Dymista DULoxetine HCl 60 MG Capsule Delayed Release Particles as directed Orally Once a day EPINEPHrine , Notes to Pharmacist: PRNFerrous Sulfate 325 (65 Fe) MG Tablet Delayed Release 1 tablet Orally Once a day Florastor 250 MG Capsule 1 capsule Orally Twice a day Fluticasone Propionate Furosemide Gabapentin 100 MG Capsule 1 capsule Orally morning , Notes to Pharmacist: 400 MG at nightHYDROcodone-Acetaminophen 7.5-325 MG Tablet 1 tablet as needed Orally every 6 hrs Ibuprofen 800mg Tablet 1 tablet as needed Orally every 6 hrs , Notes to Pharmacist: PRNJanuvia K-Tab 10 MEQ Tablet Extended Release 1 tablet with food Orally Twice a day Levothyroxine Sodium 75 MCG Tablet 1 tablet on an empty stomach in the morning Orally Once a day Lantus 37 units injections Nucala Magnesium Oxide 400 MG Tablet 1 tablet as needed Orally Once a day Meclizine HCl 25 MG Tablet Chewable 1 tablet as needed Orally Once a day , Notes to Pharmacist: PRNoxyCODONE HCl , Notes to Pharmacist: PRNOmeprazole Prochlorperazine , Notes to Pharmacist: PRNPriLOSEC 20 MG Capsule Delayed Release 1 capsule Orally Once a day Potassium Chloride ER predniSONE 10 MG Tablet Oral , Notes to Pharmacist: PRNtylenol Synthroid Spiriva Respimat Valsartan 40 MG Tablet 1 tablet Orally Twice a day Vancomycin HCl 125 MG Capsule USE 1 SUPPOSITORY RECTALLY TWICE A DAY Oral , Notes to Pharmacist: PRNVitamin C ZyrTEC Allergy Extra Depth Orthopedic Shoes (1 Pair) with Customized Heat Molded Multidensity Innersoles (3 Pair) as directed Dx: NIDDM/Polyneuropathy (E11.42), Hammertoe Foot Deformity (M20.41,M20.42), Preulcerative Skin Lesion(s) (L85.1 Calcitriol 0.25 MCG Capsule Oral Taking Atorvastatin Calcium Taking Albuterol Powder as directed , Notes to Pharmacist: PRNTaking Amoxicillin 250 MG Capsule USE 1 SUPPOSITORY RECTALLY TWICE A DAY Oral , Notes to Pharmacist: PRNTaking Lorena Taking Allopurinol 100 MG Tablet as directed Orally Taking Bepreve 1.5 % Solution 1 drop into affected eye Ophthalmic Twice a day Taking Colchicine , Notes to Pharmacist: PRNTaking Cephalexin , Notes to Pharmacist: PRNTaking Diovan 160mg Tablet 1 tablet Orally Once a day Taking Dymista Taking DULoxetine HCl 60 MG Capsule Delayed Release Particles as directed Orally Once a day Taking EPINEPHrine , Notes to Pharmacist: PRNTaking Ferrous Sulfate 325 (65 Fe) MG Tablet Delayed Release 1 tablet Orally Once a day Taking Florastor 250 MG Capsule 1 capsule Orally Twice a day Taking Fluticasone Propionate Taking Furosemide Taking Gabapentin 100 MG Capsule 1 capsule Orally morning , Notes to Pharmacist: 400 MG at nightTaking HYDROcodone-Acetaminophen 7.5-325 MG Tablet 1 tablet as needed Orally every 6 hrs Taking Ibuprofen 800mg Tablet 1 tablet as needed Orally every 6 hrs , Notes to Pharmacist: PRNTaking Januvia Taking K-Tab 10 MEQ Tablet Extended Release 1 tablet with food Orally Twice a day Taking Levothyroxine Sodium 75 MCG Tablet 1 tablet on an empty stomach in the morning Orally Once a day Taking Lantus 37 units injections Taking Nucala Taking Magnesium Oxide 400 MG Tablet 1 tablet as needed Orally Once a day Taking Meclizine HCl 25 MG Tablet Chewable 1 tablet as needed Orally Once a day , Notes to Pharmacist: PRNTaking oxyCODONE HCl , Notes to Pharmacist: PRNTaking Omeprazole Taking Prochlorperazine , Notes to Pharmacist: PRNTaking PriLOSEC 20 MG Capsule Delayed Release 1 capsule Orally Once a day Taking Potassium Chloride ER Taking predniSONE 10 MG Tablet Oral , Notes to Pharmacist: PRNTaking tylenol Taking Synthroid Taking Spiriva Respimat Taking Valsartan 40 MG Tablet 1 tablet Orally Twice a day Taking Vancomycin HCl 125 MG Capsule USE 1 SUPPOSITORY RECTALLY TWICE A DAY Oral , Notes to Pharmacist: PRNTaking Vitamin C Taking ZyrTEC Allergy Taking Extra Depth Orthopedic Shoes (1 Pair) with Customized Heat Molded Multidensity Innersoles (3 Pair) as directed Dx: NIDDM/Polyneuropathy (E11.42), Hammertoe Foot Deformity (M20.41,M20.42), Preulcerative Skin Lesion(s) (L85.1 Taking Calcitriol 0.25 MCG Capsule Oral Not-Taking/PRNTrulicity , Notes to Pharmacist: start in 1 week stop januviaFarxiga 10 MG Tablet 1 tablet Orally morning Declomycin Extra Depth Diabetic Shoes with 3 Pair Custom heat-molded multi-density innersoles for 1 year Dx: Extra Depth Orthopedic Shoes (1 Pair) with Customized Heat Molded Multidensity Innersoles (3 Pair) as directed Dx: IDDM/Polyneuropathy (E10.42), Hammertoe Foot Deformity (M20.41,M20.42), Preulcerative Skin Lesion(s) (L85.1) hydroCHLOROthiazide 25 MG Tablet 1 tablet Orally Once a day Ditropan Vicodin , Notes to Pharmacist: PRNMetformin & Diet Manage Prod 500 MG Miscellaneous as directed Orally Dulera Flonase Suspension 1 spray in each nostril Nasally Once a day , Notes to Pharmacist: HOLDExtra-Depth Diabetic Shoes with 3 Pair Custom heat-molded multi-density innersoles . . for 1 year . Dx:Niddm with neuropathy, foot deformity and pre-ulcerative skin lesions Extra-Depth Diabetic Shoes with 3 Pair Custom heat-molded multi-density innersoles . . 1pair shoes/3sets inserts . . Extra-Depth Diabetic Shoes with 3 Pair Custom heat-molded multi-density innersoles . . for 1 year . Dx: Invokana 300 MG Tablet 1 tablet Orally Once a day Extra Depth Diabetic Shoes with 3 Pair Custom heat-molded multi-density innersoles for 1 year Dx: Ergocalciferol 18950 UNIT Capsule 1 capsule Orally Breo Ellipta Medication List reviewed and reconciled with the patientNot-Taking/PRN Trulicity , Notes to Pharmacist: start in 1 week stop januviaNot-Taking/PRN Farxiga 10 MG Tablet 1 tablet Orally morning Not-Taking/PRN Declomycin Not-Taking/PRN Extra Depth Diabetic Shoes with 3 Pair Custom heat-molded multi-density innersoles for 1 year Dx: Not-Taking/PRN Extra Depth Orthopedic Shoes (1 Pair) with Customized Heat Molded Multidensity Innersoles (3 Pair) as directed Dx: IDDM/Polyneuropathy (E10.42), Hammertoe Foot Deformity (M20.41,M20.42), Preulcerative Skin Lesion(s) (L85.1) Not-Taking/PRN hydroCHLOROthiazide 25 MG Tablet 1 tablet Orally Once a day Not-Taking/PRN Ditropan Not-Taking/PRN Vicodin , Notes to Pharmacist: PRNNot-Taking/PRN Metformin & Diet Manage Prod 500 MG Miscellaneous as directed Orally Not-Taking/PRN Dulera Not-Taking/PRN Flonase Suspension 1 spray in each nostril Nasally Once a day , Notes to Pharmacist: HOLDNot-Taking/PRN Extra-Depth Diabetic Shoes with 3 Pair Custom heat-molded multi-density innersoles . . for 1 year . Dx:Niddm with neuropathy, foot deformity and pre-ulcerative skin lesions Not-Taking/PRN Extra-Depth Diabetic Shoes with 3 Pair Custom heat-molded multi-density innersoles . . 1pair shoes/3sets inserts . . Not-Taking/PRN Extra- Depth Diabetic Shoes with 3 Pair Custom heat-molded multi-density innersoles . . for 1 year . Dx: Not-Taking/PRN Invokana 300 MG Tablet 1 tablet Orally Once a day Not- Taking/PRN Extra Depth Diabetic Shoes with 3 Pair Custom heat-molded multi-density innersoles for 1 year Dx: Not-Taking/PRN Ergocalciferol 03704 UNIT Capsule 1 capsule Orally Not-Taking/PRN Breo Ellipta Medication List reviewed and reconciled with the patient * Allergies:?Erythromycin: GI upsetCipro: GI upsetBacitracin: swelling,itchyTobraDex: swelling, itchyBactrim: GI upsetyes[Allergies Verified] Objective: * Vitals:?Ht: 5 ft 3 in, Wt:25 7, BMI: 45.52, Shoe size:10, BP:130/62mm Hg, BS:83, Ht-cm: 160.02 cm, Wt-k.57 kg. * ???Past Orders: ???Lab:HEMOGLOBIN A1C (GLYCO HEMOGLOBIN) (Order Date - 05/09/2024) (Collection Date & Time - 05/09/2024 08:36 AM) ? Value Reference Range ?HEMOGLOBIN A1C % (HH) 5.9 * Examination: ???General Examination: ?GENERAL APPEARANCE:?Reveals [...] and friable with crumbly malodorous subungual debris TA, T1, T2, T3, T4, T5, T6, T7, T8, T9, .?Dermatologic: ?SKIN FINDINGS:?Skin exam reveals Keratotic lesion(s) located at plantar heels B/L.?Vascular: ?DP PULSES (B):?1/4, B/L.?PT PULSES (B):? 1/4, B/L.?CAPILLARY FILL TIME:?3 secs. per digit, b/l.?TROPHIC CONDITION-TEXTURE/ELASTICITY/TURGOR/HAIR GROWTH (B):?absent.?TEMPERTURE GRADIENT (C):?warm to cool, proximal to distal.?PIGMENTATION:?normal, B/L.?EDEMA (C):? 1/4, B/L, Ankle(s), Leg(s).?TELANGECTASIA:?absent.?VARICOSITIES:?absent.?Orthopedic: ?MUSCLE STRENGTH:?5/5 all groups in a symmetrical fashion, B/L?.?Ophthalmology Referral: ?DIABETES EYE EXAM? Assessment: * Assessment: 1.?Type 2 diabetes mellitus with diabetic polyneuropathy - E11.42 (Primary)???2.?Tinea unguium - B35.1??? Plan: * Treatment: * Procedures:?Debride Nail 6-10:?Nail debridement?Due to the clinical pathology outlined in the exam findings, performance of this nail treatment is medically necessary as its management by an unskilled/untrained nonprofessional would put this patients foot and overall health at risk. Therefore, debridement to affected nail(s), as described in exam ( TA, T1, T2, T3, T4, T5, T6, T7, T8, T9, ? ), was performed exclusively by the physician of record to reduce/remove overall nail length, girth, thickness, subungual debris, and necrotic tissue, by manual and/or electrical means through the use of a nail nipper and/or dremel-type pocket grinder operator, to a more viable healthy nail plate or bed tissue 6- 10 nails in total. Silver nitrate was used for any petechial bleeding as necessary. Definitive antifungal treatment options, both pharmaceutical and surgical, have been reviewed and discussed with the patient. The patient solely prefers the use of intermittent/as needed professional debridement services for their nail condition and understands the need for additional periodic treatments to maintain effectiveness in symptomatic relief - 49349.?Keratoma Treatment:?Parring or Cutting of Benign Hyperkeratotic Lesion(s)?(-56) 2-4 Lesions - Due to the at risk nature of the patients medical condition as documented in the exam findings, performance of this keratoderma treatment is medically necessary as its management by an unskilled/untrained nonprofessional would put this patients foot and overall health at risk. Therefore, the benign hyperkeratotic lesions, ( 2) in total, locations as stated and described in the exam ( _plantar heels B/L), were pared, and/or cut utilizing a sterile 15 blade, tissue nippers, and/or power dremel instrumentation by the physician of record - 42610.? * Procedure Codes:?05660 DEBRI DE NAIL, 6 OR MORE, Modifiers: XS 10478 TRIM SKIN LESIONS, 2 TO 4, Modifiers: XS * Follow Up:?3 Months * Images: * Sign off status: Completed true * Provider:?Sushila Heredia DPM Date:?0 05/12/2024 Generated for Jeannie grady/Kevin/eTransmitting on:?06/18/2024 09:58 AM [...] and friable with crumbly malodorous subungual debris TA, T1, T2, T3, T4, T5, T6, T7, T8, T9,
--- OUTSIDE RECORDS SUMMARY | 2024-06-18 09:58 | XMS_ITS ---
Author Organization [facility] Address Unknown Allergies, Adverse Reactions, Alerts Substance Reaction Status Noted Date Resolved Date Tobramycin active 11/08/2018 Sulfa Antibiotics active 11/08/2018 Bubba active 11/08/2018 Pravastatin active 11/08/2018 Melon active 11/08/2018 Lipitor active 11/08/2018 Lactose Intolerant active 11/08/2018 Chanda active 11/08/2018 Problems Problem Status Start Date End Date OTHER SPECIFIC ARTHROPATHIES , NOT ELSEWHERE CLASSIFIED, UNSPECIFIED SITE (M12.80 - ICD-10-CM) ACTIVE 11/08/2018 GASTRO-ESOPHAGEAL REFLUX DIS EASE WITHOUT ESOPHAGITIS (K21.9 - ICD-10-CM) ACTIVE 11/08/2018 ANEMIA, UNSPECIFIED (D64.9 - ICD-10-CM) ACTIVE 0 11/08/2018 OTHER ASTHMA (J45.998 - ICD-10-CM) ACTIVE 2018 TYPE 2 DIABETES MELLITUS WIT HOUT COMPLICATIONS (E11.9 - ICD-10-CM) ACTIVE 11/08/2018 MAJOR DEPRESSIVE DISORDER, R ECURRENT, UNSPECIFIED (F33.9 - ICD-10-CM) ACTIVE 11/08/2018 CHRONIC DIASTOLIC (CONGESTIV E) HEART FAILURE (I50.32 - ICD-10-CM) ACTIVE 11/08/2018 Encounters Encounter Performer Performer Role Encounter Diagnoses Location Date Discharge - Discharged / Transferred to another [facility] 11/08/2018 03:00 pm EDT - 12/10/2018 12:00 am EDT Discharge - Discharged / Transferred to another [facility] 12/12/2018 04:15 pm EDT - 12/26/2018 03:35 am EDT Discharge - Discharged to home or self care - Private home/apt. with home health services [place] [facility] [place] 12/27/2018 02:08 pm EDT - 01/10/2019 10:34 am EDT Immunizations Vaccine Date Pneumovax Dose 1 04/02/2012 12:00 am EST Pneumovax Dose 2 06/29/2015 12:00 am EST Pneumovax Dose 2 11/04/2008 09:00 am EDT Social History
--- OUTSIDE RECORDS SUMMARY | 2024-06-18 09:59 | XMS_ITS | Clinical Summary ---
Author Organization Formerly [facility] Facility Address [address] [address] Care Team Providers Care Career Development Consultant Name Role Phone Omid Jimenes MD Primary Care Provider [phone] Allergies Active Allergy Reactions Criticality Noted Date Comments Atorvastatin Other (see comments) 10/30/2018 Cramps Bacitracin Other (see comments),Swelling 06/15/2017 Cephalexin 06/07/2020 Thinks it may have made rash worse Charentais Melon (British Melon) Rash Low 11/01/2018 Erythromycin Other (see comments) 03/04/2021 Chanda 01/26/2022 Chanda (Zingiber Officinalis) 11/01/2018 Metformin Diarrhea 12/09/2018 Other Other (see comments) 10/31/2018 Lactose intolerance Pravastatin Other (see comments) 10/30/2018 cramps Quinolones 10/30/2018 Salvia Officinalis Rash Low 11/01/2018 Sulfa Antibiotics 11/08/2018 Sulfamethoxazole-Trime thoprim Other (see comments) 09/28/2021 Tobramycin Swelling,Other (see comments) 06/15/2017 Other reaction(s): Swelling Tobramycin-Dexamethaso ne Other (see comments) 09/28/2021 Medications valsartan (DIOVAN) 80 MG tablet Take 80 mg by mouth daily 9 Active Tiotropium [place] Monohydrate (Spiriva Respimat) 1.25 MCG/ACT aerosol solution Inhale 1 Inhaler daily Active SITagliptin (JANUVIA) 100 MG tablet Take 1 tablet by mouth 1 (one) time each day Active prochlorperazine (COMPAZINE) 5 MG tablet Take 5 mg by mouth every 6 (six) hours if needed 9 Active potassium chloride (KLOR-CON M10) 10 MEQ CR tablet Take 20 mEq by mouth twice a day Active omeprazole (PriLOSEC) [address] capsule Take 20 mg by mouth daily Active mometasone-formo terol (Dulera) 100-5 MCG/ACT inhaler Active levothyroxine (SYNTHROID, LEVOTHROID) 75 MCG tablet Take 1 tablet by mouth 1 (one) time each day Active insulin glargine (LANTUS) 100 UNIT/ML injection Inject 60 Units under the skin twice a day 70-110 units depends 9 Active HYDROcodone-acet aminophen (NORCO) 7.5-325 MG per tablet Take 1 tablet by mouth 3 (three) times a day 1 Active gabapentin (NEURONTIN) 400 MG capsule Take 1 capsule by mouth 1 (one) time each day Active furosemide (LASIX) 40 MG tablet Take 40 mg by mouth 2 (two) times a day 9 Active fluticasone HFA (Flovent HFA) 220 MCG/ACT inhaler Active cholecalciferol (VITAMIN D-3) 25 MCG (1000 UT) tablet Take 1 tablet by mouth Active allopurinol (ZYLOPRIM) 100 MG tablet Take 200 mg by mouth daily 9 Active amoxicillin (AMOXIL) 500 MG capsule Take 4 capsules by mouth 1 (one) time Active atorvastatin (LIPITOR) 20 MG tablet Take 20 mg by mouth daily Active albuterol HFA (PROVENTIL HFA;VENTOLIN HFA) 108 (90 Base) MCG/ACT inhaler Comments: Patient Notes: TAKE 2 PUFFS EVERY 6 HR PRN Duration: 90 Active albuterol (2.5 MG/3ML) 0.083% nebulizer solution Active ferrous sulfate 325 (65 Fe) MG tablet Take 325 mg by mouth Active Florastor 250 MG capsule Take 250 mg by mouth 2 (two) times a day 1 Active Dapagliflozin Propanediol (Farxiga) 10 MG tablet Take 10 mg by mouth 1 (one) time each day 90 tablet 2 2 Active Dulaglutide (Trulicity) 3 MG/0.5ML solution pen-injector Inject under the skin Active calcitriol (ROCALTROL) 0.25 MCG capsule TAKE ONE CAPSULE BY MOUTH EVERY OTHER DAY 15 capsule 2 5 Active Active Problems Problem Noted Date Diagnosed Date Acquired hammer toe of left foot 10/26/2022 Stage 3a chronic kidney disease 10/26/2022 H/O: gout 10/16/2022 Overview (10/26/2022): Last Assessment & Plan: No recent acute gout; compliant with allopurinol 200 mg daily and most recent serum uric acid nearly at goal (6.3). Updated labs ordered today. Polyneuropathy due to type 1 diabetes mellitus 0 01/26/2022 Acquired hallux valgus 01/26/2022 Stage 3b chronic kidney disease 01/26/2022 Type 2 diabetes mellitus wit h diabetic chronic kidney disease 01/26/2022 Renal osteodystrophy 01/26/2022 Obese 09/12/2021 Overview (10/26/2022): Last Assessment & Plan: 01/2022 Continued ongoing weight loss efforts. Chronic kidney disease, stage 2 (mild) 1 Abnormal renal function 03/04/2021 Constipation 03/04/2021 Overview (03/04/2021): Last Assessment & Plan: The patient was admitted this summer with obstipation from chronic narcotics. She has been on a very aggressive bowel regimen since then. In reviewing the discharge summary from that admission they were able to get her observation to resolve. She continues on a high bowel regimen and is now having 6 loose stools a day. Within the last 48 hours they have been backing off the Colace, senna, MiraLAX. She is also on colchicine twice a day which could be contributing. Her last antibiotic exposure was back in October so C. difficile is less likely. For right now replace electrolytes and hydrate. If she is having copious diarrhea consider checking for C. difficile. I suspect if we back of the bowel regimen she will improve. Gastro-esophageal reflux disease with esophagiti s 03/04/2021 Hypothyroidism 03/04/2021 Overview (03/04/2021): Last Assessment & Plan: Patient given IV levothyroxine at approximately half of home dose. Obstructive sleep apnea syndrome 03/04/2021 Overview (03/04/2021): Last Assessment & Plan: Unclear if patient uses CPAP. We will confirm this and call the respiratory team for support. Chronic diastolic heart failure 08/29/2020 Overview (10/26/2022): Last Assessment & Plan: 01/2022 Will continue to work with primary team. Recommend to remain on current lasix dose. Eczema 04/26/2020 Overview (03/04/2021): Last Assessment & Plan: After full discussion risk and benefits about continuing current medication at unchanged doses, she will start 10 mg of prednisone twice daily with a reduction of 5 mg each day till off. Follow-up phone call in 5 days. Cellulitis of lower limb 04/21/2020 Overview (03/04/2021): Last Assessment & Plan: Most likely etiology is cellulitis. She will be started on cephalexin 500 with a grams 4 times daily. Follow-up will be in 5 days. Elevation, warmth, and good oral hydration. Disorder of rotator cuff 02/19/2019 Overview (03/04/2021): Last Assessment & Plan: She has a consultation pending with Dr. Cotter for evaluation of chronic recurrent impingement, acromioclavicular hypertrophy, and substantial rotator cuff tear. In the meantime she will try to live around the pain by avoiding over the head motions. Acute flares may be treated with intra-articular steroids and she may continue to use hydrocodone as needed. MRI of shoulder reviewed with her. Hypertension 02/19/2019 Rotator cuff impingement syndrome 02/19/2019 Overview (03/04/2021): Last Assessment & Plan: Combination of glenohumeral and acromioclavicular osteoarthritis and significant rotator cuff tears. I reviewed the consultation from Dr. Cotter. When patient is ready and able she would consider consultation in [place] right now she feels that the pain is under control and she is able to live around the restriction in range of motion due to strategies taught to her by physical therapy. Osteoarthritis of left hip joint 02/19/2019 Overview (03/04/2021): Last Assessment & Plan: Painfully diminished internal rotation of the left hip is compatible with primary disease of the hip capsule. Osteoarthritis versus osteonecrosis. We will get an x-ray of her left hip and call her with results. Gastroesophageal reflux disease 01/01/2019 Drug-induced hypomagnesemia 12/27/2018 Chest pain 12/26/2018 Overview (03/04/2021): Last Assessment & Plan: Patient with brief substernal chest pressure earlier this evening peer no history of known coronary artery disease but does have known aortic stenosis. Enzymes reassuring EKG unchanged. May have had some mild hypovolemia from diarrhea and overdiuresis. If persist will get cardiology consult. Hyperkalemia 12/11/2018 Overview (03/04/2021): Last Assessment & Plan: Likely multifactorial secondary to history of Lasix use and GI loss. -We will give potassium 40 mEq p.o. twice a day -Repeat labs in a.m. Ileus 12/09/2018 Overview (03/04/2021): Last Assessment & Plan: Patient presented with acute abdominal pain with CT finding of colonic ileus with bowel distention. Patient also had an attempt of decompression with colonoscopy which was unsuccessful. Patient received aggressive bowel regiment with MiraLAX and Fleet enema with significant improvement. Discussed with GI, recommended aggressive MiraLAX regimen at home. Additional Metamucil twice a day. -Hold oxycodone and oxybutynin as a contributing factor for her constipation. -Restarted MiraLAX twice a day along with Metamucil twice daily. May titrate MiraLAX up to 5 times a day per GI. -Advancing diet as tolerated -Continue serial abdominal examination. If tolerating p.o. overnight and no worsening abdominal pain, consider discharge December 12. Increased blood pressure 11/26/2018 Chronic obstructive pulmonary disease 11/11/2018 Spasm of urinary bladder 11/09/2018 Severe aortic valve stenosis 11/09/2018 Overview (01/26/2022): Last Assessment & Plan: Reviewed echocardiogram as well as cardiology notes. Her case will be discussed next month in conference and then she will have her surgery. She is hemodynamically stable. Osteoarthritis 11/09/2018 Hypercholesterolemia 11/09/2018 Diabetes mellitus 11/09/2018 Recurrent major depressive disorder 11/08/2018 Other asthma 11/08/2018 Chronic pain 11/04/2018 Overview (03/04/2021): Last Assessment & Plan: To the patient's PRN Tylenol and oxycodone. 1 of her most recent admissions was due to severe constipation from initiation of MS Contin. Bowel regimen is to be adjusted. Tracheitis 11/03/2018 Overview (03/04/2021): Last Assessment & Plan: Patient was last hospitalized in April for shortness of breath. Outpatient management with hvac service technician Dr. Berrios. No current symptoms. Breathing comfortably. For her pulmonary regimen it appears that she takes an albuterol inhaler, albuterol nebulizer, Pulmicort, ipratropium bromide nebulizer, Spiriva, Dulera, and Dymista spray. Some of these medications were not on the hospital formulary. Home medical regimen discussed with my supervising physician and continued as appropriate. Last Assessment & Plan: Stop doxycycline, she has been on it since May. Gout 11/02/2018 Overview (03/04/2021): Last Assessment & Plan: Patient's gout is under control. Last uric acid level was therapeutic. She will remain on 200 mg of allopurinol daily. We will check another uric acid level 3 days prior to our next visit. She will try to maintain a low purine diet and put into effect some significant weight reduction. Hospital Outpatient Visit on 05/26/2019 Component Date Value Ref Range Status ? ? SODIUM 05/26/2019 138 133 - 146 mmol/L Final ? ? POTASSIUM 05/26/2019 4.0 3.3 - 5.1 mmol/L Final ? ? CHLORIDE 05/26/2019 95* 96 - 108 mmol/L Final ? ? CO2 05/26/2019 29 21 - 35 mmol/L Final ? ? BUN 05/26/2019 18 6 - 19 mg/dL Final ? ? CREATININE 05/26/2019 1.10 0.5 - 1.5 mg/dL Final ? ? GLUCOSE 05/26/2019 225* 70 - 99 mg/dL Final ? ? ALBUMIN 05/26/2019 3.6* 3.9 - 4.8 g/dL Final ? ? TOTAL PROTEIN 05/26/2019 7.8 6.5 - 8.0 g/dL Final ? ? CALCIUM 05/26/2019 9.7 8.4 - 10.3 mg/dL Final ? ? ALKALINE PHOSPHATASE 05/26/2019 110 39 - 117 U/L Final ? ? TOTAL BILIRUBIN 05/26/2019 0.3 0.0 - 1.2 mg/dL Final ? ? AST 05/26/2019 45* 0 - 37 U/L Final ? ? ALT 05/26/2019 21 0 - 40 U/L Final ? ? GLOBULIN 05/26/2019 4.2 1 - 4.8 g/dL Final ? ? EGFR 05/26/2019 49* >59 mL/min/1.73m2 Final If patient is black, multiply result by 1.159. Estimated glomerular filtration rate calculated using the CKD-EPI equation. ? ? ANION GAP 05/26/2019 18 10 - 20 mmol/L Final ? ? URIC ACID 05/26/2019 6.3 2.4 - 7.0 mg/dL Final Last Assessment & Plan: Stable on current dose of allopurinol without any evidence of toxicity. I do not think that the current rash is related to the allopurinol. Urinary tract infection caused by Enterococcus 0 11/01/2018 Overview (03/04/2021): Last Assessment & Plan: Resolved Anemia 10/31/2018 Overview (03/04/2021): Last Assessment & Plan: Better after transfusion. Should ultimately undergo GI work-up with endoscopy and colonoscopy Asthenia 10/30/2018 Overview (03/04/2021): Last Assessment & Plan: Patient has been residing at [facility] for extended care for some time now. She is actually due to be released sometime late next week. Continue PT and OT while here. Do not want her to take any steps backwards that would make that less likely to happen. Certainly with her being volume depleted and electro light depleted she is going to be weaker and I hope that it will improve quickly. Congestive heart failure 10/30/2018 Overview (03/04/2021): Last Assessment & Plan: Patient is followed by by an outside military personnel specialist. She is been maintained on Lasix 40 mg twice daily and metolazone 4 days a week. At peak her weight was 305 pounds. She is now down to 232 per she and her thinks her baseline weight before she came it was around 250. There is certainly a mild bump in her BUN and creatinine from baseline. Hold diuretics. Replace electrolytes. It is likely at this time that she can get away with one diuretic with further titration as an outpatient. Leukocytosis 10/30/2018 Overview (03/04/2021): Last Assessment & Plan: Fluctuating Insulin treated type 2 diabetes mellitus 019 Overview (03/04/2021): Last Assessment & Plan: Continue her Lantus, sliding scale with meals and Januvia. Hypomagnesemia 10/30/2018 Overview (03/04/2021): Last Assessment & Plan: The patient is again suffering from low magnesium and potassium. This happened at 1 of her prior admissions. The patient and her are quite certain this was not a lifelong issue. She is following with Dr. Cohen who feels she does not have any significant underlying kidney problems. This is very much likely secondary to both GI losses and aggressive diuresis. Replete IV and ultimately p.o. it when she is improving. Paroxysmal atrial fibrillation 10/30/2018 Overview (03/04/2021): Last Assessment & Plan: No atrial fibrillation during this hospitalization Iliotibial band friction syndrome 10/22/2018 Overview (03/04/2021): Last Assessment & Plan: We talked about contrast baths, local injection therapy, and gentle stretches of the right iliotibial band which is posttraumatic in nature. Dependence on supplemental oxygen 09/19/2018 Hoarseness 06/03/2018 Shortness of breath 06/03/2018 Spinal enthesopathy of lumbar region 09/11/2017 Overview (03/04/2021): Last Assessment & Plan: No signs or symptoms of neurogenic claudication or lumbar radiculopathy in this patient with severe multilevel spinal stenosis. She will remain on gabapentin 400 mg nightly as well as the Vicodin which incompletely helps the pain but she cannot tolerate other medication and I do not wish to move up to oxycodone. Last Assessment & Plan: She is having worsening pain in the iliolumbar ligaments on the left side. There is no evidence of radiculopathy. There is no trauma. She does have a history of spinal stenosis. I told her that we will refill her pain medication. We did talk about the pitfalls of narcotic habituation and addiction. She will then use 1 tablet a day. It seems to help her sleep. She will receive an injection today of cortisone to help with the pain. If there is no significant long-term relief and she will contact the painter maintenance for consideration of a corticosteroid epidural injection. Cervical radiculitis 03/12/2017 Overview (03/04/2021): Last Assessment & Plan: Patient is doing better. She had a surgery done in April when well. She no longer has any radicular symptoms. Last Assessment & Plan: Patient is doing better. She had a surgery done in April when well. She no longer has any radicular symptoms. Lumbar radiculopathy 03/12/2017 Overview (03/04/2021): Last Assessment & Plan: Right lower extremity radiculopathy has improved. She will continue to see Dr. Canchola. The injection really helped. She will continue on hydrocodone as needed as well as duloxetine at 40 mg a day. This has helped her pain and mood. Greater than 50% of this 20-minute visit was spent [id number] conversation with the patient and her present coordinating my care with out of her primary care physician as well as her orthopedic surgeon and painter maintenance. Last Assessment & Plan: This continues to be active in her left lower extremity along with chronic pain from bilateral upper and lower extremity diabetic sensory neuropathy which is partially controlled with the use of acetaminophen gabapentin and hydrocodone. We talked about her medications today. She should use no more than 3000 mg of acetaminophen daily including that for her hydrocodone. She also should avoid all anti- inflammatories because of the renal toxic effect and relative contraindication in active congestive heart failure. Talked about elevating her legs when she seated and staying on a low-sodium diet. I refilled her gabapentin and hydrocodone today. Greater than 50% of this 29-minute visit was spent in [id number] conversation with the patient and her present going over her upcoming consult with cardiology and pulmonary as well as the risks and benefits of her current medications and the best way to manage her pain. Of her questions were answered. History of bilateral total knee replacement 02/28 Overview (03/04/2021): Last Assessment & Plan: These are stable without signs of mechanical loosening. Last Assessment & Plan: Doing well with this with stability in no signs of loosening. Osteoarthritis of joint of bilateral hands 03/12 Overview (03/04/2021): Last Assessment & Plan: Severe OA especially in lumbar back and hands. Seems to be responding to MS Contin 30 mg twice daily along with as needed oxycodone. Will continue at this dosing for now. Her acute joint flare seems to be responding to the steroids she received consistent with probable gout. Last Assessment & Plan: Active but stable with primary osteoarthritis in the basilar thumb joints left greater than right. Medications are be left unchanged and enlarged ict quality assurance engineer on tools and utensils and be used as well as the judicious use of warmth and when absolutely necessary I will consider an intra-articular cortisone injection into the basilar thumb joint on the left side. Neuropathy 03/12/2017 Overview (03/04/2021): Last Assessment & Plan: Gabapentin nightly Osteoarthrosis of the carpometacarpal joint of t he thumb 03/12/2017 Overview (10/26/2022): Last Assessment & Plan: L > R; can tx with intra-articular steroid injection in future if necessary. Encounters Date Type Department Care Team Description 05/01/2024 Refill [facility] [address] [place] [address] Lewis Cohen MD from Last 3 Months Immunizations Name Administration Dates Next Due Influenza (IM) Preservative Free 02/10/2021,110 09/2016,03/20/2016,01/13/2015 Moderna SARS-COV-2 12/14/2020 Pneumococcal, Unspecified 06/29/2015,02/17/2013, 04/02/2012,11/04/2008 Family History Medical History Relation Comments Diabetes Father Hypertension Father Stroke Father Dementia Mother Heart disease Mother Relation Status Comments Father Mother Social History Tobacco Use Types Packs/Day Years Used Date Smoking Tobacco: Former Cigarettes Q uit: 11/26/1985 Alcohol Use Standard Drinks/Week Comments Yes 0 (1 standard drink = 0.6 oz pure alcohol) Alcoholic Drinks/day: Occasional social drink Comments Unknown Sex and Gender Information Value Date Recorded Sex Assigned at Not on file Legal Sex Female 4:54 PM EST Gender Identity Not on file Sexual Orientation Not on file Last Filed Vital Signs Vital Sign Reading Time Taken Comments Blood Pressure 144/62 07/30/2023 1:02 PM EDT Pulse 88 07/30/2023 1:02 PM EDT Temperature - - Respiratory Rate - - Oxygen Saturation 97% 07/30/2023 1:02 PM EDT Inhaled Oxygen Concentration - - Weight 119 kg (263 lb 3.2 oz) 07/30/2023 1:02 PM EDT Height 165.1 cm (5' 5 ) 03/03/2019 12:00 PM EST Body Mass Index 43.8 03/03/2019 12:00 PM EST Plan of Treatment Upcoming Encounters Date Type Department Care Team (Late st Contact Info) Description 09/04/2024 2:15 PM EDT Office Visit [facility] [address] [place] [address] Lewis Cohen MD [address] [facility] [address] [place] [id number] Health Maintenance Due Date Last Done Comments Pneumococcal Vaccine: 65+ Years (2 of 2 - PCV) 06/28/2016 06/29/2015, 02/17/2013, 04/02/2012, Additional history exists Diabetes: Hemoglobin A1C 05/28/2020 02/02/2020 Diabetes: Ophthalmology Exam 05/28/2020 Diabetes: Pedal Pulse Checked 05/28/2020 Diabetes: Sensory Foot Exam 05/28/2020 Diabetes: Visual Foot Exam 05/28/2020 Influenza Vaccine (#1) 2023 , 03/05/2017, 03/20/2016, Additional history exists Hepatitis B Vaccine Aged Out 09/27/1993, 04/26/1993, 03/23/1993 No longer eligible based on patient's age to complete this topic Procedures Procedure Name Priority Date/Time Associated Diagnosis Comments BLOOD PANEL (HC) Routine 02/02/2020 12:0 0 AM EDT from Last 3 Months or Most Recently Relevant to Health Maintenance Results * (ABNORMAL) Blood Panel (02/02/2020 12:00 AM EDT) Cholesterol 136 <200 mg/dl [facility] Hematocrit 32.1(L) 38 - 50 % [facility] Potassium 4.2 3.5 - 5.1 mmol/L [facility] BUN 18 9 - 20 mg/dl [facility] eGFR Non- 53(L) >60 ml/min [facility] HDL 41 >40 mg/dl [facility] Hgb 9.8(L) 13.0 - 16.5 g/dl [facility] Platelets 402 140 - 440 k/uL [facility] Creatinine 1.01 0.70 - 1.30 mg/dl [facility] Triglycerides 128 <150 mg/dl [facility] LDL,Direct 70 <130 mg/dl [facility] Hemoglobin A1C 9.0(H) <5 % [facility] Sodium 139 137 - 145 mmol/L [facility] Carbon Dioxide (CO2) 32(H) 22 - 30 mmol/L [facility] Calcium 9.4 8.4 - 10.2 mg/dl [facility] 02/02/2020 us [facility] [id number] LICITED RESULTS Final Result [facility] from Last 3 Months or Most Recently Relevant to Health Maintenance Insurance MEDICARE COUNTS INCLUDE 234 BEDS AT THE [facility] MEDICARE UNIC[employer] Care Teams Career Development Consultant Relationship Specialty Start Date End Date Omid Jimenes MD [id number] [place], [place] PCP - General 05/10/20
--- OUTSIDE RECORDS SUMMARY | 2024-06-18 09:59 | XMS_ITS | Clinical Summary ---
Author Organization Formerly [facility] [place] [address] Care Team Providers Care Cork Slabs Sawyer Name Role Phone Unavailable Primary Care Provider Unavailabl e Allergies Active Allergy Reactions Criticality Noted Date Comments Bacitracin Other (See Comments) 06/15/2017 Fish Derived Other (See Comments) Medium 09/01/2014 Allergies:Sulfa, Emycin-nausea, vomiting, diarrhea Quinolones-leg muscles felt out of place Tobramycin and Bacitracin ungs-periorbital erythema and edema Dristan-periorbital edema Foods:Beef, don, trout, mushrooms, carmen, keke, pepper, spicy foods, soups, gravies, milk-Nausea, vomiting, diarrhea Latex:No Tobramycin 06/15/2017 Other reaction(s): Swelling Medications Medication Sig Dispensed Refills Start Date End Date Status Mometasone-Formoter ol (DULERA MDI) 100-5 mcg/actuation HFA Aerosol Inhaler Activ e albuterol 90 mcg/actuation HFA Aerosol Inhaler Inhale 2 puffs into the lungs Every 6 hours as needed. Active albuterol (PROVENTIL) 2.5 mg /3 mL (0.083 %) Solution for Nebulization Inhale 2.5 mg into the lungs Every 6 hours as needed. Active atorvastatin (LIPITOR) 20 mg Tablet Take 20 mg by mouth Daily. Active azelastine-fluticas one (DYMISTA) 137-50 mcg/spray [place], Non-Aerosol 1 puff in each nostril Active Bepotastine Besilate (BEPREVE) 1.5 % Drops 1 drop into affected eye Active Biotin 1 mg Tablet Take 1,000 mcg by mouth Twice daily. Active budesonide (PULMICORT) 0.25 mg/2 mL Suspension for Nebulization Inhale 0.25 mg into the lungs Daily. Active cholecalciferol, Vitamin D3, 1,000 unit Tablet Take 1 tablet by mouth Daily. Active fluticasone (FLOVENT) 220 mcg/actuation HFA Aerosol Inhaler Inhale 1 puff into the lungs Twice daily. Active EH-Bfj-Mrmxf Acid-Lutein (ESSENTIAL WOMAN 50+) 0.4-250 mg-mcg Tablet Take 1 tablet by mouth Daily. Active furosemide (LASIX) 40 mg Tablet Take 40 mg by mouth Twice daily. Active gabapentin (NEURONTIN) 100 mg Capsule Take 100 mg by mouth Three times a day. 05/13/2018 Active hydroCHLOROthiazide (HYDRODIURIL) 25 mg Tablet Take 1 tablet by mouth Daily. Active HYDROcodone-acetami nophen (NORCO) 5-325 mg Tablet 1 1/2 tabs po tid prn Earliest Fill Date: 05/30/18 05/30/2018 Active insulin glargine (LANTUS U-100 INSULIN) Solution Inject 60 Units subcutaneously Twice daily. Active levothyroxine (SYNTHROID) 75 mcg Tablet Take 1 tablet by mouth Daily. Active mepolizumab (NUCALA) Recon Soln injection Inject 100 mg subcutaneously. Active oxybutynin (DITROPAN XL) 5 mg Tablet Extended Rel 24 hr 1 tab(s) tid Active potassium chloride SA (K-DUR;KLOR-CON) 10 mEq Tab Sust.Rel. Particle/Crystal Take 10 mEq by mouth Daily. Active predniSONE (DELTASONE) 20 mg Tablet Take 20 mg by mouth. Acti ve Saccharomyces boulardii (FLORASTOR) 250 mg Capsule 1 capsule bid Active sitaGLIPtin (JANUVIA) 100 mg Tablet Take 1 tablet by mouth Daily. Active tiotropium bromide (SPIRIVA RESPIMAT) 1.25 mcg/actuation Mist Inhale 1 Inhaler into the lungs Daily. Active valsartan (DIOVAN) 80 mg Tablet 1 Active ipratropium (ATROVENT) 0.03 % [place], Non-Aerosol USE 2 SPRAYS BY NASAL ROUTE EVERY 12 HOURS 30 mL 08/09/2018 Active Additional Information Patient not taking.Reported on 02/04/2019 DULoxetine (CYMBALTA) 30 mg Capsule, Delayed Release(E.C.) Take 30 mg by mouth daily. Active allopurinol (ZYLOPRIM) 100 mg Tablet Take 100 mg by mouth 2 times daily. Active prochlorperazine (COMPAZINE) 5 mg Tablet Take 5 mg by mouth every 6 hours as needed for Nausea. Active Active Problems Problem Noted Date Diagnosed Date Shortness of breath 06/03/2018 Tracheomalacia 06/03/2018 Hoarseness 06/03/2018 Spinal enthesopathy of lumbar region 09/11/2017 Overview (06/03/2018): Last Assessment & Plan: She is having [...] long-term relief and she will contact the [facility] [employer] for consideration of a corticosteroid epidural injection. Cervical radiculitis 03/12/2017 Overview (06/03/2018): Last Assessment & Plan: Patient is doing better. She had a surgery done in April when well. She no longer has any radicular symptoms. History of total bilateral knee replacement 02/28 Overview (06/03/2018): Last Assessment & Plan: Doing well with this with stability in no signs of loosening. Lumbar radiculopathy 03/12/2017 Overview (06/03/2018): Last Assessment & Plan: This continues to [...] of this 29-minute visit was spent in [id number] conversation with the patient and her present going over her upcoming consult with cardiology and pulmonary as well as the risks and benefits of her current medications and the best way to manage her pain. Of her questions were answered. Neuropathy 03/12/2017 Primary osteoarthritis of both hands 03/12/2017 Overview (06/03/2018): Last Assessment & Plan: Active but stable with primary osteoarthritis in the basilar thumb joints left greater than right. 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 Social History Tobacco Use Types Packs/Day Years Used Date Smoking Tobacco: Former Cigarettes 0.5 22 1 964 - 1986 Smokeless Tobacco: Never Sex and Gender Information Value Date Recorded Sex Assigned at Not on file Gender Identity Not on file Sexual Orientation Not on file Last Filed Vital Signs Vital Sign Reading Time Taken Comments Blood Pressure 148/84 06/03/2018 11:13 AM EST Pulse 99 06/03/2018 11:13 AM EST Temperature 36.5 ??C (97.7 ??F) 06/03/2018 1 1:13 AM EST Respiratory Rate 20 06/03/2018 11:1 3 AM EST Oxygen Saturation 92% 06/03/2018 11: 13 AM EST Inhaled Oxygen Concentration - - Weight 108.4 kg (238 lb 14.4 oz) 02/04/2019 1:01 PM EDT Height 165.1 cm (5' 5 ) 02/04/2019 1:01 PM EDT Body Mass Index 39.76 02/04/2019 1:01 PM EDT Plan of Treatment Health Maintenance Due Date Last Done Comments Hepatitis C Screening 1963 Tetanus/Diphtheria/Pertussis Vaccines (1 - Tdap) 07/03 Pneumoccocal Vaccine: 50+ (1 of 1 - PCV) 1994 Zoster vaccine (1 of 2) 1994 Advance Directive 07/04/1999 Bone Density Scan 2009 RSV Vaccine (1 - 1-dose 75+ series) 07/04/2019 Covid-19 Vaccine (1 - 2023-25 season) 2023 Influenza (Flu) vaccine (1 o f 1 - Influenza standard series) 12/30/2023
== END 2024-06-18 09:59 | disposition home or self-care (01) ==
PROVIDERS: PCP Internal Medicine; Visit Provider Registered Nurse Emergency
DX: G89.4 Chronic pain syndrome (principal); Z79.891 Long term (current) use of opiate analgesic
CPT/HCPCS: 99214; G2211

== ENCOUNTER → 2024-06-18 09:39 | Outpatient (BNVA) | payer MEDICARE, OTHER, SELFPAY | PROVIDERS: PCP Internal Medicine; Visit Provider Registered Nurse Emergency | DX: G89.4 Chronic pain syndrome (principal); Z51.81 Encounter for therapeutic drug level monitoring; Z79.891 Long term (current) use of opiate analgesic | CPT/HCPCS: 99212 ==

== ENCOUNTER 2024-07-16 09:30 | Outpatient (AMB) | payer MEDICARE, OTHER, SELFPAY ==
[2024-07-16 09:43] VITALS: BP 107/58; PULSE 98; RESP 18; O2SAT 92; BMI 43.8
--- NOTE | 2024-07-16 09:43 | A.OFFVIS_ITS ---
Vital Signs 07/16/24 09:43 Height 5 ft 2.56 in Weight 244 lb BMI 43.8 BP 107/58 L Blood Pressure Location Lt radial Position Sitting Respiration 18 Pulse 98 Pulse Source Pulse Oximeter Pulse Oximetry (%) 92 Oxygen Delivery Method Room Air Intake Visit Reasons: PILL COUNT Intake Note: Pt states she last took vicodin 07/16/24 @ 7:15am Visual Journalist Required: No Allergies cephalexin [From Keflex] Allergy (Severe, Verified 07/16/24 09:44) Itching pravastatin [Pravachol] Allergy (Severe, Verified 07/16/24 09:44) cramps bacitracin Adverse Reaction (Severe, Verified 07/16/24 09:44) eye swelling dexamethasone [TobraDex] Adverse Reaction (Severe, Verified 07/16/24 09:44) redness swelling tobramycin [TobraDex] Adverse Reaction (Severe, Verified 07/16/24 09:44) redness swelling Sulfa (Sulfonamide Antibiotics) Adverse Reaction (Intermediate, Verified 07/16/24 09:44) GI upset atorvastatin [From Lipitor] Adverse Reaction (Verified 07/16/24 09:44) Unknown Beef Containing Products Adverse Reaction (Verified 07/16/24 09:44) Unknown erythromycin base Adverse Reaction (Verified 07/16/24 09:44) Unknown Penicillins [PCN] Adverse Reaction (Verified 07/16/24 09:44) Unknown sulfacetamide [From Sulfacet-R] Adverse Reaction (Verified 07/16/24 09:44) Unknown sulfur [From Sulfacet-R] Adverse Reaction (Verified 07/16/24 09:44) Unknown topiramate [From Topamax] Adverse Reaction (Verified 07/16/24 09:44) Unknown Medication List - Last Reconciled 07/16/24 by Naz Simpson LPN albuterol sulfate 90 mcg/actuation 2 puffs PO Q4H albuterol sulfate 2.5 mg (3 mL) inhalation Q4H PRN allopurinol 100 mg PO DAILY aspirin 81 mg PO DAILY atorvastatin 20 mg PO DAILY azelastine-fluticasone 137-50 mcg/spray 1 spray intranasal BID 30 days bepotastine besilate 1.5% (Bepreve) 1 drp ophthalmic (eye) DAILY PRN calcitriol mcg PO chlorhexidine gluconate 0.12% 15 mL buccal DAILY 30 days cholecalciferol (vitamin D3) (Vitamin D3) 25 mcg PO DAILY doxycycline hyclate 100 mg PO BID 10 days duloxetine 60 mg PO DAILY epinephrine 0.3 mL IM ONCE PRN ferrous sulfate (FeroSul) 325 mg PO DAILY fluticasone propionate 220 mcg/actuation 2 puffs inhalation BID furosemide (Lasix) 80 mg PO BID 30 days gabapentin 100 mg PO .AM gabapentin 400 mg PO BEDTIME hydrocodone-acetaminophen 7.5-325 mg 1 tab PO BID PRN insulin glargine units subcut levothyroxine 75 mcg PO DAILY meclizine 25 mg PO BID PRN mepolizumab 100 mg subcut Q4W nystatin 1 appl topical BID omeprazole 20 mg PO DAILY potassium chloride ER 10 mEq PO BID Saccharomyces boulardii (Florastor) 250 mg PO BID sitagliptin phosphate 100 mg PO DAILY tiotropium bromide 1.25 mcg/actuation inhalation tirzepatide (Mounjaro) 2.5 mg subcut QWEEK trazodone 50 mg PO BEDTIME PRN valsartan 40 mg PO DAILY HPI HPI PILL COUNT: Details: History of Present Illness The patient is an 79-year-old female presenting with pain management for chronic back pain radiating to the left hip. Her pain intensifies when walking, standing, and does not yesenia significantly with sitting or reclining. She reports that this issue persists following physical activity such as walking down hallways and does not seem to correlate with specific factors besides these activities. The patient has received previous advice recommending surgical options, yet she expresses concerns about the potential complications and is apprehensive about pursuing surgery. Recent attempts to improve her mobility through exercise have shown some positive effects. She seeks to maintain a level of comfort and function without surgical intervention at this time. Pain Description - Onset and Timing: Pain worsens with activity such as walking or standing; persistent during most activities. - Quality and Character: Radiating from back into left hip, described by patient as hurting. - Primary Location: Back. - Areas of Radiation: Radiates into left hip downwards. - Exacerbating Factors: Walking, standing, and after walking from car or hallways. - Relieving Factors: None explicitly mentioned beyond non-surgical management. - Impact on Activities: Interferes particularly when walking or standing for prolonged periods. Physical Exam - Appears afebrile. - Alert and oriented. - Mood and affect appropriate. - Follows and participates in conversation appropriately. - Respiratory effort is unlabored. - Able to transition from sit to stand unassisted. - Ambulates with bilaterally normal heel strike and toe off with the help of her cane. Pain Management - Affect: Patient is concerned about the potential for worsening conditions and additional complications with surgical intervention. - Analgesia: Discussed medication refill with specific reference to refill inconsistencies; effectiveness of therapy not explicitly stated. - Adverse Effects: Not explicitly stated. - Activities of Daily Living: Pain affects the patient's ability to stand and walk comfortably. - Aberrant Drug-Related Behaviors: Inconsistent counts of prescribed medication noted, but no explicit indication of misuse. [facility] Medical History (Updated 04/18/24 @ 05:36 by Sae Hurst) COPD (chronic obstructive pulmonary disease) Morbid obesity Acute systolic congestive heart failure Osteoporosis Dyspnea Chronic pain syndrome Gouty arthritis Arthritis of both glenohumeral joints Neurogenic claudication due to lumbar spinal stenosis Asthma CLEVE on CPAP Chronic restrictive lung disease Tracheitis Dyspnea Surgical History Status post cervical spinal fusion History of eyelid surgery History of knee replacement History of cholecystectomy Family History Father HTN (hypertension) Stroke Diabetes Mother Atrial fibrillation HTN (hypertension) Social History Alcohol intake: never Patient Tobacco Use Status: Former Tobacco user Tobacco use type: Cigarette Years Smoked: 20 years Second Hand Smoke Exposure: No Physical Exam Vital Signs: Last Vital Signs Pulse 98 07/16/24 09:43 Resp 18 07/16/24 09:43 BP 107/58 L 07/16/24 09:43 Pulse Ox 92 07/16/24 09:43 Oxygen Delivery Method Room Air 07/16/24 09:43 BMI result Body Mass Index 43.8 Assessment & Plan Assessment & Plan (1) Intractable back pain: Code(s): M54.9 - Dorsalgia, unspecified Category: Medical (2) Greater trochanteric bursitis of both hips: Code(s): M70.61 - Trochanteric bursitis, right hip; M70.62 - Trochanteric bursitis, left hip Category: Medical (3) Bilateral shoulder pain: Code(s): M25.511 - Pain in right shoulder; M25.512 - Pain in left shoulder Category: Medical Plan Plan For the patient's persistent chronic pain impacting her back and left hip, non-surgical management continues to be the focus. Pill count was consistent. She has observed some improvements with activity modifications despite ongoing discomfort. Surgical options were also discussed in prior visits, yet she opts for a non-invasive path as preferred and advised by previous consultations. Moving forward, the plan includes careful monitoring of her pain to ascertain any developments and to potentially refine rehabilitation or pain management strategies. Patient was informed and verbally consented to the use of an ambient scribe for clinic note documentation during this visit. Discussion Notes I discussed with the patient her current chronic pain issues, focusing on non- surgical management. We reviewed previous recommendations for surgery, but she is not interested in pursuing surgical options due to potential risks and complications. She observed some improvement through recent exercise but is seeking to maintain function rather than proceeding with invasive interventions. We also addressed medication management, ensuring she understands the importance of maintaining correct prescription use. The patient agreed to a follow-up plan where her progress with non-invasive measures will be monitored, and future interventions considered if necessary. Consent regarding the current management path was obtained. Patient Instructions - Continue with the prescribed medication regimen. - Monitor and report any changes in pain levels or activity limitation. - Engage in recommended exercises or activities cautiously to avoid exacerbating pain. - Attend the follow-up appointment next month for further evaluation. - Maintain accurate counts of medications and report any discrepancies. Medications: Refilled hydrocodone-acetaminophen 7.5-325 mg Partial Fill upon patient request. 1 tab PO BID PRN 60 tabs 0RF pain Coding Level of Care Code Est Pt Level 4 (73819) Diagnoses Intractable back pain M54.9 Greater trochanteric bursitis of both hips M70.61; M70.62 Bilateral shoulder pain M25.511; M25.512
== END 2024-07-16 09:58 | disposition home or self-care (01) ==
LOC: HO.PMC 09:31
PROVIDERS: PCP Internal Medicine; Visit Provider Internal Medicine
DX: M54.9 Dorsalgia, unspecified (principal); M70.61 Trochanteric bursitis, right hip; M70.62 Trochanteric bursitis, left hip; M25.511 Pain in right shoulder; M25.512 Pain in left shoulder
CPT/HCPCS: 99214

== ENCOUNTER → 2024-07-16 09:30 | Outpatient (BNVA) | payer MEDICARE, OTHER, SELFPAY | PROVIDERS: PCP Internal Medicine; Visit Provider Internal Medicine | DX: Z51.81 Encounter for therapeutic drug level monitoring (principal); M54.9 Dorsalgia, unspecified; M70.61 Trochanteric bursitis, right hip; M70.62 Trochanteric bursitis, left hip; M25.511 Pain in right shoulder; M25.512 Pain in left shoulder; Z79.891 Long term (current) use of opiate analgesic | CPT/HCPCS: 99212 ==

== ENCOUNTER 2024-08-08 14:17 | Outpatient (AMB) | payer MEDICARE, OTHER, SELFPAY ==
[2024-08-08 14:27] VITALS: BP 120/70; PULSE 98; O2SAT 96; BMI 44.0
--- NOTE | 2024-08-08 14:27 | A.OFFVIS_ITS ---
Vital Signs 08/08/24 14:27 Height 5 ft 2.56 in Weight 244 lb 11.41 oz BMI 44.0 BP 120/70 Blood Pressure Location Rt brachial Position Sitting Pulse 98 Pulse Source Pulse Oximeter Pulse Oximetry (%) 96 Oxygen Delivery Method Room Air Intake Visit Reasons: Obstructive sleep apnea Allergies cephalexin [From Keflex] Allergy (Severe, Verified 08/08/24 14:33) Itching pravastatin [Pravachol] Allergy (Severe, Verified 08/08/24 14:33) cramps bacitracin Adverse Reaction (Severe, Verified 08/08/24 14:33) eye swelling dexamethasone [TobraDex] Adverse Reaction (Severe, Verified 08/08/24 14:33) redness swelling tobramycin [TobraDex] Adverse Reaction (Severe, Verified 08/08/24 14:33) redness swelling Sulfa (Sulfonamide Antibiotics) Adverse Reaction (Intermediate, Verified 08/08/24 14:33) GI upset atorvastatin [From Lipitor] Adverse Reaction (Verified 08/08/24 14:33) Unknown Beef Containing Products Adverse Reaction (Verified 08/08/24 14:33) Unknown erythromycin base Adverse Reaction (Verified 08/08/24 14:33) Unknown Penicillins [PCN] Adverse Reaction (Verified 08/08/24 14:33) Unknown sulfacetamide [From Sulfacet-R] Adverse Reaction (Verified 08/08/24 14:33) Unknown sulfur [From Sulfacet-R] Adverse Reaction (Verified 08/08/24 14:33) Unknown topiramate [From Topamax] Adverse Reaction (Verified 08/08/24 14:33) Unknown HPI Comments Details: The patient is a 79 y/o woman with a history of asthma COPD overlap syndrome. She was admitted to [facility] with worsening dyspnea symptoms. She was found to be in congestive heart failure. She was aggressively diuresed. Recently underwent an echocardiogram demonstrated diastolic dysfunction and also moderate to severe aortic stenosis did increased gradient. She did follow-up with her recorder helper gravity prospecting who recommended she undergo a right heart catheterization to assess pressures and consider a transcutaneous aortic valve replacement. At this point the patient is trying to continue recovering after her prolonged hospitalization in rehabilitation. She is off all nebulized therapy at this time. She does have her Flovent and Spiriva that she uses daily. She continues to Nucala in the allergy shots with good effect. Otherwise the patient is doing well in good spirits. She has not required the oxygen. She did follow-up with cardiology in time to have a cardiac catheterization to assess her aortic stenosis. The patient is also dealing with a questionable rotator cuff injury and will be following up with orthopedic surgery. She continues uses CPAP. The CPAP therapy continues to be affecting beneficial. 12/04/2019 Today the patient is here for pulmonary follow-up visit. Overall she is doing very well from a respiratory status. She continues on her respiratory regimen with good adherence. Has not required any rescue medicine or even her nebulizer. She continues on the Lasix medication with good volume status. No significant lower extremity edema. She continues with her allergy shots along with Nucala. Her CPAP therapy continues to be affecting beneficial. Although she is getting a lot of leaks from her mask making it difficult for her to sleep at nighttime. Once the COVID-19 infection settle she will call her [employer] to make a date for mask clinic. She will be seeing cardiology soon regarding her aortic stenosis. At this point the patient is trying to avoid the COVID-19 infections and likely will have to plan to schedule testing for the beginning of 2020. 06/24/2020 the patient is here for pulmonary follow-up visit. The patient continues to have significant shortness of breath. Is actually gotten worse. Moderate severity. She has a hard time doing her activities of daily living. She continues with the current respiratory therapy continues with her allergy shots. She has been complaining of increasing raspiness of her voice. She is also having increased mucus production. Denies any hemoptysis. She had a back a so tracheitis in the past with significant hemoptysis. At that point her cultures are positive for Staph aureus. She has also had increased lower extremity edema. She has also has some evidence of cellulitis primarily in the right lower extremity. At this time the patient is being evaluated for potential treatment for her aortic stenosis. It appears to to be getting worse. Also, concerning for the possibility of worsening respiratory symptoms and not able to proceed with her procedure safely. She continues uses CPAP therapy. Although with the cough and sometimes is makes it difficult. At this point will treated with doxycycline to treat her underlying history of Staph tracheitis. In addition to that we will request a CT scan of the neck to better assess the t rachea and see if there is any irregularities. Could also consider bronchoscopy but at this point will try to minimize semi invasive procedures. 05/23/2021 the patient is here for a pulmonary follow-up visit. The patient is status post transcatheter aortic valve replacement. The surgery went very well and she was able to be discharged from the hospital postop day 1. no complications. The meantime she is on home now. She continues on diuresis. The patient does complaint of dyspnea on exertion. She does still have a hard time walking because of her significant hip and back pain. The patient is currently working with stopping specialist regarding her significant discomfort. In the meantime she continues with respiratory medications. She also continues on the Nucala injections once a Months. She is having hard time sleeping. She was using trazodone. Then she was started on a at the present so than the trazodone was stopped. She is also on gabapentin at this time. I did talk about that she has multiple options for sleep aids. One option is to increase her gabapentin at nighttime. She states that she will follow-up with industrial technologist regarding that since the initiated the medication. So therefore I am okay for her to continue with the as needed trazodone as long as she keeps at 50 mg. The patient has a lot of polypharmacy at this point we need to simplify her regimen. 09/22/2021 the patient is here for a pulmonary follow-up visit. Overall she has been doing okay. She does complaint of persistent dyspnea on exertion. She did follow-up with her cardiology is [place] regarding the shortness of breath. she was told that she is doing well from a cardiac status. She does have multifactorial reasons for the shortness of breath. She has significant back discomfort that keeps her from being mobile. Therefore she is decondition. She had to stop doing pulmonary rehabilitation due to her discomfort. She is currently working with pain management for her pain management. She will be undergoing intervention soon. from an asthma standpoint she has been doing well. She continues use her respiratory therapy. She has not required her res cue medication. She continues with Nucala. She also continues uses CPAP at nighttime. The CPAP therapy continues to be affecting beneficial. She does use was 4 hours a night. The patient is wondering about the chlorhexidine mouthwash. I did state that she can continue using it for the month of September specially since she is going to be undergoing a surgical procedure for her pain management. However, after she should hold off on using because he can affect her dentition. 01/23/2023 the patient is here for a pulmonary follow-up visit. She is doing well from a respiratory status. She continues with respiratory medications. Does have dyspnea on exertion but is likely multifactorial. She does have significant back pain. She does use a cane and also has a walker. Currently she is on a wheelchair because it is difficult for her to walk in the hospital settings. She is currently being evaluated by Neurosurgery. She is not sure she is going to undergo additional surgeries for his spinal stenosis. At this point she is pretty debilitated so she is likely to consider it if it can be beneficial. In the meantime she continues with the Nucala injections. This point they appeared to be affecting beneficial when she will continue them for now. She does get allergy symptoms due to the IgE elevation but at this point she can treat the symptoms with allergy medicines. She continues use her respiratory therapy. No evidence of any laryngitis or issues with tracheal disease. She does have a CPAP and she does use it every night. The CPAP therapy continues to be affecting beneficial. She does use it for more than 4 hours a night. However, the fullface mask is causing her to get a lot of irritation and ulceration to the nasal bridge. I did provide her with an F30 mask with hopes that she could provide good enough seal for her to tolerated. Although, she does have a very tiny PT nose which makes it hard for her to get a good seal with the hybrid mask. She will try anyways at least take a break from the irritation from the nasal bridge. The patient is doing well from a respiratory status therefore the patient is able to return in 10-12 months for a follow-up visit. If he has any issues prior to that she is to call the office for an earlier assessment. 11/13/2023 the patient is here for a pulmonary follow-up visit. With heat and humidity she has had a increasing chest tightness. She has had some increasing wheezing. [id number] severity. She has had to use her rescue inhaler few more times a week. Although has not been bad enough for her to consider prednisone. The patient has not been taking a long-acting beta agonist. Will try to minimize her medications specially if her symptoms are transient. She does continue her fluticasone propionate inhaler. I will go ahead and resend to the pharmacy. She still continues on biologic therapy. In addition to that she continues her nasal sprays with good effect for her allergic chronic rhinitis. The patient did have a fall and she injured her right wrist. She started developing some erythema and some induration of her distal forearm. Appears to have some component of cellulitis. Therefore, will give her a prescription for doxycycline. If the areas no better worsens she needs to follow-up with her primary care doctor Or urgent care. Otherwise patient is doing well she is using her CPAP at nighttime the CPAP therapy continues to be affecting beneficial. She does use it for more than 4 hours a night. Still hard for her to walk. She does have to get assistance and she is following closely with pain management. 08/08/2024 the patient is here for a pulmonary follow-up visit. The patient overall has been doing well. She has been on the same respiratory th erapy including fluticasone propionate Spiriva and also using her rescue inhaler on a regular basis. She finds that this is helpful for her. She continues on the Nucala. Seems like she tolerates the medicine well with significant limitations or palpitation. The patient has also been using her CPAP. CPAP therapy has been affecting beneficial. She does use for more than 4 hours. She has been getting it monitor by as a mask. Will go ahead and request a she bringing into the next visit so we can just make sure that the pressures are adequate. No imaging studies at this time. No antibiotics at this time. The patient is doing well will follow-up in the fall 2024. If she has any issues prior to that she will call for an earlier assessment. [facility] Medical History (Updated 04/18/24 @ 05:36 by Sae Hurst) COPD (chronic obstructive pulmonary disease) Morbid obesity Acute systolic congestive heart failure Osteoporosis Dyspnea Chronic pain syndrome Gouty arthritis Arthritis of both glenohumeral joints Neurogenic claudication due to lumbar spinal stenosis Asthma CLEVE on CPAP Chronic restrictive lung disease Tracheitis Dyspnea Surgical History Status post cervical spinal fusion History of eyelid surgery History of knee replacement History of cholecystectomy Family History Father HTN (hypertension) Stroke Diabetes Mother Atrial fibrillation HTN (hypertension) Social History Alcohol intake: never Patient Tobacco Use Status: Former Tobacco user Tobacco use type: Cigarette Years Smoked: 20 years Second Hand Smoke Exposure: No Review of Systems Const Denies daytime sleepiness, Denies difficulty sleeping and Denies night sweats ENT Denies change in voice, Denies hoarseness, Denies lip swelling, Reports epistaxis, Denies mouth pain, Reports nasal congestion, Reports nasal discharge, Reports post nasal drip and Denies tongue swelling Card Denies chest pain and Reports dyspnea on exertion Resp Denies chest congestion, Reports cough, Denies excessive phlegm production, Reports dyspnea on exertion and Reports wheezing GI Denies abdominal pain Musc Reports as per HPI, Reports abnormal gait, Reports back pain, Reports arthralgias, Reports limited range of motion and Reports stiffness Skin/Breast Reports erythema Neuro Denies Neuro-related abnormal movements and Reports abnormal gait Psych Denies no additional complaints Miguel/Lymph Denies easy bleeding and Denies lymphadenopathy Aller/Immun Denies lip swelling, Denies tongue swelling and Reports wheezing Physical Exam Vital Signs: Last Vital Signs Pulse 98 08/08/24 14:27 BP 120/70 08/08/24 14:27 Pulse Ox 96 08/08/24 14:27 Oxygen Delivery Method Room Air 08/08/24 14:27 BMI result Body Mass Index 44.0 Const General: alert Neck Neck: Yes normal visual inspection, Yes full ROM and Yes no lymphadenopathy Chest Chest palpation & inspection: normal inspection of the chest Resp Auscultation: no wheezes and diminished lung sounds Cardio Rate: regular rate Rhythm: regular rhythm Heart sounds: S1 normal heart sound present and S2 normal heart sound present GI Palpation (GI): Soft to palpation and nontender Auscultation: normal bowel sounds Skin General skin exam: erythema Extrem General: No calf tenderness, No clubbing, No cyanosis and Yes edema Right upper extremity: Extremity exam: right hand Details: tenderness, warmth and swelling Assessment & Plan Assessment & Plan (1) CLEVE on CPAP: Code(s): G47.33 - Obstructive sleep apnea (adult) (pediatric); Z99.89 - Dependence on other enabling machines and devices Category: Medical (2) Chronic restrictive lung disease: Comment: Moderate severity, not much different from 2019 Code(s): J98.4 - Other disorders of lung Category: Medical (3) Asthma: Code(s): J45.909 - Unspecified asthma, uncomplicated Category: Medical Qualifiers: Asthma complication type: uncomplicated Asthma persistence: persistent Asthma severity: moderate Qualified Code(s): J45.40 - Moderate persistent asthma, uncomplicated Plan Continue Flovent continue Spiriva Respimat 2 inhalations daily Nebulized therapy as needed On biologic therapy with Nucala every 4 weeks Continue CPAP therapy, trial small F30 mask, will bring CPAP Use saline gel continue Dymista Trazodone as needed for sleep F/U 6-8 months, should bring her APAP Coding Level of Care Code Est Pt Level 4 (07795) Complex EM visit Add On G2211 Diagnoses CLEVE on CPAP G47.33; Z99.89 Chronic restrictive lung disease J98.4 Moderate persistent asthma without complication J45.40 Asthma complication type: uncomplicated Asthma persistence: persistent Asthma severity: moderate Time Spent (min) 16
--- OUTSIDE RECORDS SUMMARY | 2024-08-08 14:39 | XMS_ITS | Patient Health Record ---
Author Organization [facility] Address [address] [facility] [place] [address] Care Team Providers Care Dredge Runner Name Role Phone Omid Jimenes MD Primary Care Provider Sushila Campos Unavailable [phone] Alexis Martinez Unavailable [phone] Brittany Montiel Unavailable [phone] Allergies Allergen (clinical drug ingredient) Drug/Non Drug Allergy documented on EMR Reaction Allergy Type Onset Date Status bacitracin Bacitracin swelling,itchy Drug Allergy Active sulfamethoxazole / trimethoprim Bactrim GI upset Drug Allergy Active ciprofloxacin Cipro GI upset Drug Allergy Act manolo erythromycin Erythromycin GI upset Drug Allergy A ctive dexamethasone / tobramycin TobraDex swelling, itchy Drug Allergy Active Results Component Value Reference Range Notes HEMOGLOBIN A1C (GLYCOHEMOGLO BIN) Reviewed date:12/27/2023 01:41:56 PM Interpretation: Performing Lab: Notes/Report: HEMOGLOBIN A1C % (HH) 6.8 HEMOGLOBIN A1C (GLYCOHEMOGLO BIN) Reviewed date:05/22/2024 02:12:52 PM Interpretation: Performing Lab: Notes/Report: HEMOGLOBIN A1C % (HH) 5.9 HEMOGLOBIN A1C (GLYCOHEMOGLO BIN) Reviewed date:05/27/2024 08:37:35 AM Interpretation: Performing Lab: Notes/Report: HEMOGLOBIN A1C % (HH) 5.9 HEMOGLOBIN A1C (GLYCOHEMOGLO BIN) Reviewed date:07/18/2024 01:45:06 PM Interpretation: Performing Lab: Notes/Report: HEMOGLOBIN A1C % (HH) 6.0 HEMOGLOBIN A1C (GLYCOHEMOGLO BIN) Reviewed date:03/06/2024 03:03:22 PM Interpretation: Performing Lab: Notes/Report: TOTAL HEMOGLOBIN (HGBA1C) 5.9 Reason For Referral No Information Medications Medication SIG (Take, Route, Frequency, Duration) Notes Start Date End Date Status Furosemide Active Omeprazole Active Fluticasone Propionate Active HYDROcodone-Acetaminophen 7.5-325 MG 1 tablet as needed Orally every 6 hrs Active Meclizine HCl 25 MG 1 tablet as needed Orally Once a day for 30 day(s) PRN Active Gabapentin 100 MG 1 capsule Orally morning 400 MG at night Active oxyCODONE HCl PRN Active EPINEPHrine PRN Active Nucala Active DULoxetine HCl 60 MG as directed Orally Once a day Active Magnesium Oxide 400 MG 1 tablet as neede d Orally Once a day for 30 day(s) Active Florastor 250 MG 1 capsule Orally Twice a day for 30 day(s) Active Levothyroxine Sodium 75 MCG 1 tablet on an empty stomach in the morning Orally Once a day Active Ferrous Sulfate 325 (65 Fe) MG 1 tablet Orally Once a day for 30 day(s) Active Lantus 37 units injections Act manolo Januvia Active K-Tab 10 MEQ 1 tablet with food Orally Twice a day for 30 day(s) Active Dymista Active Diovan 160mg 1 tablet Orally Once a day for 30 day(s) Active Ibuprofen 800mg 1 tablet as needed Orally every 6 hrs PRN Active Breo Ellipta Not-Jaylen ing Cephalexin PRN Active Vancomycin HCl 125 MG USE 1 SUPPOSITORY RECTALLY TWICE A DAY Oral for 14 PRN Active Vitamin C Active Spiriva Respimat Act manolo Valsartan 40 MG 1 tablet Orally Twice a day Active tylenol Active Synthroid Active Potassium Chloride ER Active predniSONE 10 MG Oral for 12 PRN A ctive Prochlorperazine PRN Act manolo PriLOSEC 20 MG 1 capsule Orally Once a day for 30 day(s) Active Ditropan Not-Taking Extra Depth Orthopedic Shoes (1 Pair) with Customized Heat Molded Multidensity Innersoles (3 Pair) as directed Dx: IDDM/Polyneuropath y (E10.42), Hammertoe Foot Deformity (M20.41,M20.42), Preulcerative Skin Lesion(s) (L85.1) 04/04/2017 Not-Taking hydroCHLOROthiazide 25 MG 1 tablet Orall y Once a day for 30 day(s) Not-Taking Declomycin Not-Takin g Extra Depth Diabetic Shoes with 3 Pair Custom heat-molded multi-density innersoles for 1 year Dx: 10/03/2017 Not-Taking Trulicity start in 1 week stop januvia Not-Taking Farxiga 10 MG 1 tablet Orally morning Not-Taking Extra Depth Orthopedic Shoes (1 Pair) with Customized Heat Molded Multidensity Innersoles (3 Pair) as directed Dx: NIDDM/Polyneuropat hy (E11.42), Hammertoe Foot Deformity (M20.41,M20.42), Preulcerative Skin Lesion(s) (L85.1 Active Calcitriol 0.25 MCG Oral for 30 Active ZyrTEC Allergy Activ e Allopurinol 100 MG as directed Orally Active Lorena Active Colchicine PRN Active Bepreve 1.5 % 1 drop into affected eye Ophthalmic Twice a day Active Atorvastatin Calcium Active Extra Depth Diabetic Shoes with 3 Pair Custom heat-molded multi-density innersoles for 1 year Dx: 10/06/2015 Not-Taking Ergocalciferol 28486 UNIT 1 capsule Oral ly for 30 day(s) Not-Taking Amoxicillin 250 MG USE 1 SUPPOSITORY RECTALLY TWICE A DAY Oral for 7 PRN Active Extra-Depth Diabetic Shoes with 3 Pair Custom heat-molded multi-density innersoles . for 1 year . Dx: for . 10/05/2014 Not-Taking Albuterol as directed PRN Active Invokana 300 MG 1 tablet Orally Once a day Not-Taking Extra-Depth Diabetic Shoes with 3 Pair Custom heat-molded multi-density innersoles . for 1 year . Dx:Niddm with neuropathy, foot deformity and pre-ulcerative skin lesions for . 07/10/2013 Not-Taking Extra-Depth Diabetic Shoes with 3 Pair Custom heat-molded multi-density innersoles . 1pair shoes/3sets inserts . . for 1 year Not-Taking Extra Depth Orthopedic Shoes (1 Pair) with Customized Heat Molded Multidensity Innersoles (3 Pair) as directed Dx: NIDDM/Polyneuropat hy (E11.42), Hammertoe Foot Deformity (M20.41,M20.42), Preulcerative Skin Lesion(s) (L85.1 07/18/2024 Active Dulera Not-Taking Flonase 1 spray in each nostril Nasally Once a day for 30 day(s) HOLD Not-Taking Vicodin PRN Not-Taking Metformin & Diet Manage Prod 500 MG as directed Orally Not-Takin g Immunizations Vaccine Route Administration Date Status Comme nts COVID-19 Moderna Vaccine Unknown 01/30/2022 Administere d 05/27/20,06/28/20 12/14/20,05/02/20 Influenza Unknown 01/13/2015 Administered Influenza Unknown 03/20/2016 Administered Influenza Unknown 03/05/2017 Administered Influenza Unknown 01/30/2022 Administered Influenza Unknown 12/29/2022 Administered Pneumococcal Unknown 02/17/2013 Administered Social History Tobacco Use: Social History Observation Description Date Details (start date - stop date) Never Smoker NA - NA Tobacco use other than smoking: Question Answer Notes Are you an other tobacco user? No Tobacco Control (Standard) Question Answer Notes Tobacco use: Nonsmoker Additional Findings: Tobacco non-user Current no nsmoker AUDIT-C (Standard) Question Answer Notes Did you have a drink containing alcohol in the p ast year? No Points 0 Interpretation Negative Problems Problem Type SNOMED Code ICD Code Onset Dates Problem Status W/U Status Risk Notes Problem Acquired hallux valgus (22929626) Hallux valgus (acquired), left foot (M20.12) Active confirmed Problem Polyneuropathy due to diabetes mellitus type I (966709830) Type 1 diabetes mellitus with diabetic polyneuropathy (E10.42) Active confirmed Problem Polyneuropathy due to type 2 diabetes mellitus (214765068) Type 2 diabetes mellitus with diabetic polyneuropathy (E11.42) Active confirmed Problem Acquired hallux valgus (20329231) Hallux valgus (acquired), right foot (M20.11) Active confirmed Problem Acquired hammer toe of right foot (8189870596370945 ) Other hammer toe(s) (acquired), right foot (M20.41) Active confirmed Problem Acquired hammer toe of left foot (6756162285328908 ) Other hammer toe(s) (acquired), left foot (M20.42) Active confirmed Problem Polyneuropathy due to diabetes mellitus type I (687191462) Type 1 diabetes mellitus with diabetic polyneuropathy (E10.42) Active confirmed Vital Signs Blood pressure diastolic 62 mm Hg 07/18/2024 Height 5 ft 3 in in 07/18/2024 Blood pressure systolic 130 mm Hg 07/18/2024 Weight 257 lbs 07/18/2024 BMI 45.52 kg/m2 07/18/2024 Procedures Procedure Date Ordered Date Performed Result Body Sit e 47279-IRSSITI NAIL, 6 OR MORE 03/06/2024 N/A 91602-LDNK SKIN LESIONS, 2 TO 4 03/06/2024 N/A 78450-VFMSVJQ NAIL, 6 OR MORE 05/12/2024 N/A 15205-QEAO SKIN LESIONS, 2 TO 4 05/12/2024 N/A Encounters Encounter Location Date Provider Diagnosis [address] [address] 10/08/2023 Alexis Martinez Type 1 diabetes mellitus with [...] M76.61 and Achilles tendinitis, left leg M76.[address] [address] 12/27/2023 Alexis Martinez Type 1 diabetes mellitus [...] M76.61 and Achilles tendinitis, left leg M76.[address] [address] 03/06/2024 Sushila Heredia Type 1 diabetes mellitus with diabetic polyneuropathy E10.42 and Tinea unguium B35.[address] [address] 05/12/2024 Sushila Heredia Type 2 diabetes mellitus with diabetic polyneuropathy E11.42 and Tinea unguium B35.[address] [address] 07/18/2024 Brittany Montiel Type 2 diabetes mellitus with diabetic polyneuropathy E11.42 ; Other hammer toe(s) (acquired), right foot M20.41 ; Tinea unguium B35.1 ; Other hammer toe(s) (acquired), left foot M20.42 and Pre-ulcerative calluses L84 [address] [address] 12/10/2023 Alexis Martinez Assessments Encounter Date Diagnosis (ICD Code) Assessment Notes Treatment Notes Treatment Clinical Notes Section Notes 10/08/2023 Type 1 diabetes mellitus with diabetic polyneuropathy (ICD-10 - E10.42) 12/27/2023 Type 1 diabetes mellitus with diabetic polyneuropathy (ICD-10 - E10.42) 03/06/2024 Type 1 diabetes mellitus with diabetic polyneuropathy (ICD-10 - E10.42) 03/06/2024 Tinea unguium (ICD-10 - B35.1) 05/12/2024 Type 2 diabetes mellitus with diabetic polyneuropathy (ICD-10 - E11.42) 05/12/2024 Tinea unguium (ICD-10 - B35.1) 07/18/2024 Other hammer toe(s) (acquired), right foot (ICD-10 - M20.41) Patient Educated with: DIABETIC FOOT CARE INSTRUCTIONS. pdf (DIABETIC FOOT CARE INSTRUCTIONS. pdf) 07/18/2024 Type 2 diabetes mellitus with diabetic polyneuropathy (ICD-10 - E11.42) 07/18/2024 Tinea unguium (ICD-10 - B35.1) 12/27/2023 Tinea unguium (ICD-10 - B35.1) 10/08/2023 Tinea unguium (ICD-10 - B35.1) 10/08/2023 Ingrowing nail (ICD-10 - L60.0) 12/27/2023 Ingrowing nail (ICD-10 - L60.0) 07/18/2024 Other hammer toe(s) (acquired), left foot (ICD-10 - M20.42) 12/27/2023 Pain in right toe(s) (ICD-10 - M79.674) 10/08/2023 Pain in right toe(s) (ICD-10 - M79.674) 07/18/2024 Pre-ulcerative calluses (ICD-10 - L84) 10/08/2023 Pain in left toe(s) (ICD-10 - M79.675) 12/27/2023 Pain in left toe(s) (ICD-10 - M79.675) 12/27/2023 Hallux valgus (acquired), left foot (ICD-10 - M20.12) 10/08/2023 Hallux valgus (acquired), left foot (ICD-10 - M20.12) 10/08/2023 Hallux valgus (acquired), right foot (ICD-10 - M20.11) 12/27/2023 Hallux valgus (acquired), right foot (ICD-10 - M20.11) 12/27/2023 Eczema, unspecified type (ICD-10 - L30.9) 10/08/2023 Eczema, unspecified type (ICD-10 - L30.9) 10/08/2023 Xerosis cutis (ICD-10 - L85.3) 12/27/2023 Xerosis cutis (ICD-10 - L85.3) 12/27/2023 Other hammer toe(s) (acquired), right foot (ICD-10 - M20.41) 10/08/2023 Other hammer toe(s) (acquired), right foot (ICD-10 - M20.41) 10/08/2023 Other hammer toe(s) (acquired), left foot (ICD-10 - M20.42) 12/27/2023 Other hammer toe(s) (acquired), left foot (ICD-10 - M20.42) 12/27/2023 Achilles tendinitis, right leg (ICD-10 - M76.61) 10/08/2023 Achilles tendinitis, right leg (ICD-10 - M76.61) 10/08/2023 Achilles tendinitis, left leg (ICD-10 - M76.62) 12/27/2023 Achilles tendinitis, left leg (ICD-10 - M76.62) Plan Of Treatment Pending Test Test Name Order Date X ray : Foot, left 2V 10/03/2017 X ray : Foot, right 2V 10/03/2017 X ray : Foot, right 3V 04/10/2022 97025-JLADJOZ NAIL, 6 OR MORE 03/06/2024 88490-MAWMYED NAIL, 6 OR MORE 05/12/2024 86812-NBUZMNM NAIL, 6 OR MORE 10/04/2016 53543-HHTKFXA NAIL, 6 OR MORE 04/04/2017 46273-ISPQXCM NAIL, 6 OR MORE 10/03/2017 09846-NCXYMNL NAIL, 6 OR MORE 04/08/2018 54329-OJAKBZB NAIL, 6 OR MORE 04/03/2013 50249-PRICZWG NAIL, 6 OR MORE 07/10/2013 67671-KGULDKI NAIL, 6 OR MORE 10/16/2013 06742-HADBCWD NAIL, 6 OR MORE 01/21/2014 98444-RQFNSJD NAIL, 6 OR MORE 06/04/2014 50978-XSMMTXG NAIL, 6 OR MORE 10/05/2014 75227-NBESMMJ NAIL, 6 OR MORE 01/06/2015 80491-AUOONLL NAIL, 6 OR MORE 04/07/2015 46159-ASYLEHL NAIL, 6 OR MORE 10/06/2015 66138-BNPMRGD NAIL, 6 OR MORE 04/05/2016 26452-DFTFIMT NAIL, 1-5 10/30/2012 57231-GMZEBCU NAIL, 1-5 01/16/2013 64289-AFRYMOK NAIL, 1-5 09/05/2012 49301-FSTPNHE NAIL, 1-5 07/18/2012 92516-KATPDZK NAIL, 1-5 07/31/2012 95861-Zyvdakzn Plate 07/31/2012 31138-Sepqcxld Plate 09/05/2012 42489-Fsfgreyf Plate 07/18/2012 19593-Pxydbygv Plate 10/03/2017 33225-Clvloejk Plate 10/16/2013 22389-Vvijvlgq Plate 04/04/2017 16311-YQJC SKIN LESIONS, OVER 4 07/19/19 13 95943-HYML SKIN LESIONS, OVER 4 09/06/19 13 87005-ZFPE SKIN LESIONS, OVER 4 08/01/19 13 63943-ZGSE SKIN LESIONS, OVER 4 07/11/19 14 66990-UGUO SKIN LESIONS, OVER 4 01/17/20 13 26805-TSSI SKIN LESIONS, OVER 4 04/03/20 13 91713-MEKT SKIN LESIONS, OVER 4 04/05/20 16 12752-HZFO SKIN LESIONS, OVER 4 10/05/19 17 69961-ASBY SKIN LESIONS, OVER 4 10/06/19 16 62138-PSCX SKIN LESIONS, OVER 4 04/07/20 15 81493-PVCN SKIN LESIONS, OVER 4 01/07/20 15 08416-TCQB SKIN LESIONS, OVER 4 10/06/19 15 67714-ANHT SKIN LESIONS, OVER 4 06/04/19 15 85091-OCBM SKIN LESIONS, OVER 4 01/22/20 14 49873-JVTA SKIN LESIONS, OVER 4 10/17/19 14 38473-LTJC SKIN LESIONS, 2 TO 4 04/04/20 17 12611-HTYH SKIN LESIONS, 2 TO 4 10/04/19 18 90264-MKPB SKIN LESIONS, 2 TO 4 10/08/19 19 03422-MELU SKIN LESIONS, 2 TO 4 01/28/20 19 26437-HQNI SKIN LESIONS, 2 TO 4 04/09/20 19 93889-RYQB SKIN LESIONS, 2 TO 4 06/12/19 20 59094-LQQY SKIN LESIONS, 2 TO 4 10/13/19 20 58709-WWSX SKIN LESIONS, 2 TO 4 12/15/19 20 12148-JTDQ SKIN LESIONS, 2 TO 4 02/16/20 20 78384-UIRE SKIN LESIONS, 2 TO 4 05/13/19 21 70856-OEME SKIN LESIONS, 2 TO 4 08/12/19 21 26557-YUYH SKIN LESIONS, 2 TO 4 10/19/19 21 33613-XHGH SKIN LESIONS, 2 TO 4 12/23/19 21 26562-MCCL SKIN LESIONS, 2 TO 4 02/24/20 21 99458-WTDV SKIN LESIONS, 2 TO 4 05/09/19 22 37708-RJMQ SKIN LESIONS, 2 TO 4 07/15/19 22 96792-JIZM SKIN LESIONS, 2 TO 4 05/12/19 25 47018-GEDV SKIN LESIONS, 2 TO 4 03/06/20 24 22929-SYMK SKIN LESIONS, 2 TO 4 04/08/20 18 66860-ABKY NAIL(S) 01/16/2013 77828-WISX NAIL(S) 10/30/2012 Next Appt Details Provider Name:Sushila Garcia sameera, 09/24/2024 02:30:00 PM, [address] [place], [address], Insurance Providers Payer Name Payer Address Payer Phone Subscriber Number Group Number Insured Name Patient Relationship to Insured Coverage Start Date Coverage End Date Medicare National [employer]t [employer] [address] [place] [address] [phone] [id number] Vy Fishman Self - patient is the insured [employer] ([facility] [address] [place] [address] [id number] Vy Fishman Self - patient is the insured for Life [address] [place] [address] [phone] [id number] LouloukassyVy Self - patient is the insured Medical (General) History Medical History History ICD Code anemia Arthritis asthma back, hip, knee pain hyperlipidemia cataracts type II diabetes gall bladder problems headaches/migraines hernia hypertension lung disease chicken pox measles mumps reflux sciatica sinus conditions thyroid disorder joint implants/screws transfusions Surgical History Surgery Date(Month/Year) lap band cataract surgery blepheroplasty cholecystectomy oral surgery bone graft 2014 oral implants and tissue graft 2014 Cervical disc replacement. 05/07/2017 Heart Catheterization 01/12/21 aortic valve 03/16/21 Hospitalization History Reason Date(Month/Year) Susan Casanova- Constipation, swelling , 12/21 Susan Casanova-Systemic Go ut 9 day stay- Discharged to rehab-12 days-[facility]ent [facility] to [facility] 10/2018-01/10/2019 [facility], Cervical disc replacement, [address] [facility]. 05/07/2017
--- OUTSIDE RECORDS SUMMARY | 2024-08-08 14:39 | XMS_ITS ---
Author Organization Omid Jimenes MD Address [address] [place] [id number] Care Team Providers Care Exhibits Coordinator Name Role Phone Omid Jimenes Primary Care Provider [phone] Allergies Allergen (clinical drug ingredient) Drug/Non Drug Allergy documented on EMR Reaction Allergy Type Onset Date Status atorvastatin Lipitor cramps Drug Allergy Acti ve dexamethasone / tobramycin tobradex (uncoded) redness swelling Allergy Active bacitracin bacitracin oint (uncoded) eye swelling Allergy Active Substance with sulfonamide structure and antibacterial mechanism of action (substance) sulfa (uncoded) GI UPSET Allergy Active Medicinal quinolone and acting as antibacterial agent (FN) quinolones (uncoded) knee pain Allergy Active pravastatin Pravachol cramps Drug Allergy Activ e REASON FOR VISIT comp visit Medications Medication [...] day for 7 days 11/30/2023 Active Nystop 439004 UNIT/GM APPLY ONE APPLICAT ION EXTERNALLY TWO [...] Problem Status W/U Status Risk Notes Problem [id number] Chronic obstructive pulmonary disease, unspecified COPD type (J44.9) Active confirmed Vital Signs Blood pressure systolic 158 mm Hg 02/29/20 24 Blood pressure diastolic 76 mm Hg 024 Height 64 in 02/29/2024 Weight 252 lbs 02/29/2024 BMI 43.25 kg/m2 02/29/2024 weight is down 8 pounds [facility] e 12-17-23 Encounters Encounter Location Date Provider Diagnosis Omid Jimenes MD [address] [place] [address] [place] [id number] 02/29/2024 Omid Jimenes Acute systolic congestive heart failure I50.21 ; Morbid obesity due to excess calories E66.01 and Chronic obstructive pulmonary disease, unspecified COPD type J44.9 Assessments Encounter Date Diagnosis (ICD Code) Assessment Notes Treatment Notes Treatment Clinical Notes Section Notes 02/29/2024 Acute systolic congestive heart failure (ICD-10 - I50.21) stable with coninuous shortness of breath/ order faxed to [facility] 02/29/2024 Morbid obesity due to excess calories (ICD-10 - E66.01) has lost some weight 02/29/2024 Chronic obstructive pulmonary disease, unspecified COPD type (ICD-10 - J44.9) stable Plan Of Treatment Treatment Notes Assessment Notes Acute systolic congestive heart failure stable with coninuous shortness of breath/ order faxed to [facility] Morbid obesity due to excess calories bradley s lost some weight Chronic obstructive pulmonar y disease, unspecified COPD type stable Pending Test Test Name Order Date MAMMOGRAM DIGITAL BILATERAL SCREEN 02/28 Next Appt Details Follow Up: 6 Months, Reason: Provider Name:Omid borden, 09/26/2024 07:45:00 AM, [address] [place] [address], [address], [phone], Provider Name:Omid borden, 09/29/2024 02:00:00 PM, [address] [place] [address], [address], [phone], Provider Name:Omid borden, 02/24/2025 07:15:00 AM, [address] [place] [address], [address], [phone], Provider Name:Omid borden, 03/03/2025 02:30:00 PM, [address] [place] [address], [address], [phone], Progress Notes * Vy WAITE LDOB:1945 (78 yo F)Acc No.[id number]:02/29/2024 Patient:?Vy Waite Provider:?Omid Jimenes MD :1945???Age:78 Y???Sex:Female D ate:02/29/2024 Address:[address] [place] [address] Subjective: * Chief Complaints: * ???Comp visit [...] Pets: none. no Travel outside of the [place]. * Medications:?TakingCalcitrio l 0.25 MCG Capsule [...] and allow to dissolve Orally twicea dayNystop 729113 UNIT/GM Powder APPLY ONE APPLICATION EXTERNALLY TWO [...] EYE DAILY NEEDED [facility]hthal[facility] Un[facility] Pentips Plus 31G X 6 [...] allow to dissolve Orally twicea dayTaking Nystop 101202 UNIT/GM Powder APPLY ONE APPLICATION EXTERNALLY TWO [...] 36.1 H <30 - ug/mg cr ???Lab:Comprehensive [place]. [facility] Fast (Order Date - 02/19/2024) [...] mg/dL ?Urine Blood Negative Negative - ?Specific [place] - Urine 1.010 1.005-1.025 - ?Urine Protein [...] negative , no masses palpable.?FEMALE GENITOURINARY:?done by warehouse shipping clerk.?EXTREMITIES:?no clubbing, cyanosis, or edema.?NEUROLOGIC:?nonfocal, motor strength normal upper and lower extremities, sensory exam intact.? Assessment: * Assessment: 1.?Acute systolic congestive heart failure - I50.21 (Primary)?2.?Morbid obesity due to excess calories - E66.01?3.?Chronic obstructive pulmonary disease, unspecified COPD type - J44.9? Plan: * Treatment: Notes: stable with coninuous shortness of breath/ order faxed to [facility]??2.?Morbid obesity due to excess calories? Notes: has lost some weight??3.?Chronic obstructive pulmonary disease, unspecified COPD type? Notes: stable?? * Procedure Codes:? * Follow Up:?6 Months * * Sign off status: Completed true * Provider:?Omid Jimenes MD Date:?1 04/30/2023 Generated for Jeannie grady/Kevin/eTransmitting on:?08/08/2024 02:39 PM EDT History and Physical Notes * HPI (History [...] no masses palpable FEMALE GENITOURINARY: done by warehouse shipping clerk ORAL CAVITY: mucosa moist
--- OUTSIDE RECORDS SUMMARY | 2024-08-08 14:39 | XMS_ITS ---
Author Organization [facility] Address [address] [facility] [place] [address] Care Team Providers Care Brusher Name Role Phone Omid Jimenes MD Primary Care Provider Sushila Campos Unavailable [phone] Allergies Allergen (clinical drug ingredient) Drug/Non Drug [...] for 1 year Dx: 10/06/2015 Not-Taking Ergocalciferol 38894 UNIT 1 capsule Oral ly for 30 [...] Ordered Date Performed Result Body Sit e 77067-KKCQOCM NAIL, 6 OR MORE 05/12/2024 N/A 45314-QWIY SKIN LESIONS, 2 TO 4 05/12/2024 N/A Encounters Encounter Location Date Provider Diagnosis [facility] [address] [place] [address] 05/12/2024 Sushila Heredia Type 2 diabetes mellitus with diabetic polyneuropathy E11.42 and Tinea unguium B35.1 Assessments Encounter Date Diagnosis (ICD Code) Assessment Notes Treatment Notes Treatment Clinical Notes Section Notes 05/12/2024 Type 2 diabetes mellitus with diabetic polyneuropathy (ICD-10 - E11.42) 05/12/2024 Tinea unguium (ICD-10 - B35.1) Plan Of Treatment Pending Test Test Name Order Date 77517-SHILUTX NAIL, 6 OR MORE 05/12/2024 20956-HXAF SKIN LESIONS, 2 TO 4 05/12/19 Next Appt Details Follow Up: 3 Months, Reason: Provider Name:Sushila brasher, 09/24/2024 02:30:00 PM, [address] [place] [address], [phone], Procedure Notes * Category Sub-Category Detail Notes [...] use of a nail nipper and/or dremel-type wood grinder operator, to a more viable healthy [...] to maintain effectiveness in symptomatic relief - Keratoma Treatment Parring or Cutting o f [...] instrumentation by the physician of record - 54563 Progress Notes * Vy FISHMAN LDOB:1945 (78 yo F)Acc No.[id number]:05/12/2024 Progress Note Patient:?Vy FISHMAN Provider:?Sushila Heredia DPM :1945???Age:78 Y???Sex:Female D ate:05/12/2024 Address:[address] [place] [address], [facility], [phone] Pcp:Omid Jimenes MD Subjective: * Chief Complaints: [...] Procedure:?[facility], Cervical disc replacement, 1 day stay. 05/07/2017Coolejcarlos Casanova-Systemic Gout 9 day stay- Discharged to rehab- 12 days-Went back to [facility] and rehab 10/2018-01/10/2019Comonae Casanova- Constipation, swelling, 12/21 [...] multi-density innersoles for 1 year Dx: Ergocalciferol 46842 UNIT Capsule 1 capsule Orally Breo Ellipta [...] innersoles for 1 year Dx: Not-Taking/PRN Ergocalciferol 59172 UNIT Capsule 1 capsule Orally Not-Taking/PRN Breo [...] a symmetrical fashion, B/L?.?Ophthalmology Referral: ?DIABETES EYE EXAM?Procedure Performed:?Yes ?Date of Exam Performed?09/29/2023 ?Findings of Diabetic Eye Exam:?no retinopathy??? Assessment: * Assessment: 1.?Type 2 diabetes mellitus [...] use of a nail nipper and/or dremel-type wood grinder operator, to a more viable healthy [...] to maintain effectiveness in symptomatic relief - 88255.?Keratoma Treatment:?Parring or Cutting of Benign Hyperkeratotic Lesion(s)?(-56) [...] instrumentation by the physician of record - 63158.? * Procedure Codes:?74122 DEBRI DE NAIL, 6 OR MORE, Modifiers: XS 65394 TRIM SKIN LESIONS, 2 TO 4, Modifiers: XS * Follow Up:?3 Months * Images: * Sign off status: Completed true * Provider:?Sushila Heredia DPM Date:?0 05/12/2024 Generated for Jeannie grady/Kevin/eTransmitting on:?08/08/2024 02:39 PM [...]
--- OUTSIDE RECORDS SUMMARY | 2024-08-08 14:39 | XMS_ITS ---
Author Organization [facility] Address [address] [facility] [place] [address] Care Team Providers Care Communication Specialist Name Role Phone Omid Jimenes MD Primary Care Provider Sushila Campos Unavailable [phone] Allergies Allergen (clinical drug ingredient) Drug/Non Drug [...] . Dx: for . 10/05/2014 Not-Taking Ergocalciferol 85904 UNIT 1 capsule Oral ly for 30 [...] Polyneuropathy due to type 2 diabetes mellitus (872521243) Type 2 diabetes mellitus with diabetic polyneuropathy (E11.42) Active confirmed Problem Polyneuropathy due to diabetes mellitus type I (810040724) Type 1 diabetes mellitus with diabetic polyneuropathy (E10.42) Active confirmed Vital Signs Height 5 ft 3 in in 03/06/2024 Weight 257 lbs 03/06/2024 BMI 45.52 kg/m2 03/06/2024 Procedures Procedure Date Ordered Date Performed Result Body Sit e 35807-BDBZACY NAIL, 6 OR MORE 03/06/2024 N/A 64356-DWFQ SKIN LESIONS, 2 TO 4 03/06/2024 N/A Encounters Encounter Location Date Provider Diagnosis [facility] [address] [address] 03/06/2024 Sushila Heredia Type 1 diabetes mellitus with diabetic polyneuropathy E10.42 and Tinea unguium B35.1 Assessments Encounter Date Diagnosis (ICD Code) Assessment Notes Treatment Notes Treatment Clinical Notes Section Notes 03/06/2024 Type 1 diabetes mellitus with diabetic polyneuropathy (ICD-10 - E10.42) 03/06/2024 Tinea unguium (ICD-10 - B35.1) Plan Of Treatment Pending Test Test Name Order Date 87301-HNIHSKU NAIL, 6 OR MORE 03/06/2024 58032-YDHJ SKIN LESIONS, 2 TO 4 03/06/20 24 Next Appt Details Follow Up: prn, Reason: Provider Name:Sushila Garcia sameera, 09/24/2024 02:30:00 PM, [address] [place], [address], Procedure Notes * Category Sub-Category Detail Notes [...] use of a nail nipper and/or dremel-type blanchard grinder operator, to a more viable healthy nail plate or bed tissue 6-10. Silver nitrate used for any petechial bleeding as necessary. Definitive antifungal treatment options have been reviewed and discussed with the patient. The patient chooses, no pharmaceutical tx - 43860 Keratoma Treatment Parring or Cutting o f Benign Hyperkeratotic Lesion(s) (-56) 2-4 Lesions - The Benign hyperkeratotic lesions, as described in exam, were pared, and/or cut utilizing a sterile 15 blade, tissue nippers, and/or dremel - 67459 Progress Notes * Vy FISHMAN LDOB:1945 (78 yo F)Acc No.[id number]:03/06/2024 Progress Note Patient:?Vy Fishman Provider:?Sushila Heredia DPM :1945???Age:78 Y???Sex:Female D ate:03/06/2024 Address:[address], [place], [id number] Pcp:Omid Jimenes MD Subjective: * Chief Complaints: [...] Procedure:?[facility], Cervical disc replacement, 1 day stay. 05/07/2017[facility]-Systemic Gout 9 day stay- Discharged to rehab- 12 days-Went back to [facility] 10/2018-01/10/2019[facility]- Constipation, swelling, 12/21 * Family History:?Mother: dece [...] heat-molded multi-density innersoles for 1 year Dx:Ergocalciferol 05706 UNIT Capsule 1 capsule Orally Breo Ellipta [...] multi-density innersoles for 1 year Dx:Not-Taking/PRN Ergocalciferol 98698 UNIT Capsule 1 capsule Orally Not-Taking/PRN Breo [...] lesion(s) located at plantar heels B/L.?Vascular: ?DP PULSES(B):?1/4, B/L.?PT PULSES(B):? 1/4, B/L.?CAPILLARY FILL TIME:?3 secs. per digit, b/l.?TROPHIC CONDITION-TEXTURE/ELASTICITY/TURGOR/HAIR GROWTH(B):?absent.?TEMPERTURE GRADIENT(C):?warm to cool, proximal to distal.?PIGMENTATION:?normal, B/L.?EDEMA(C):? /, B/L, Ankle(s), Leg(s).?TELANGECTASIA:?absent.?VARICOSITIES:?absent.?Orthopedic: ?MUSCLE STRENGTH:?5/5 all groups in a symmetrical fashion, B/L?.?Ophthalmology Referral: ?DIABETES EYE EXAM?Procedure Performed:?Yes ?Date of Exam Performed?09/29/2023 ?Findings of Diabetic Eye Exam:?no retinopathy??? Assessment: * Assessment: 1.?Type 1 diabetes mellitus [...] use of a nail nipper and/or dremel-type blanchard grinder operator, to a more viable healthy nail plate or bed tissue 6-10. Silver nitrate used for any petechial bleeding as necessary. Definitive antifungal treatment options have been reviewed and discussed with the patient. The patient chooses, no pharmaceutical tx - 08973.?Keratoma Treatment:?Parring or Cutting of Benign Hyperkeratotic Lesion(s)?(-56) 2-4 Lesions - The Benign hyperkeratotic lesions, as described in exam, were pared, and/or cut utilizing a sterile 15 blade, tissue nippers, and/or dremel - 71286.? * Procedure Codes:?88680 DEBRI DE NAIL, 6 OR MORE, Modifiers: XS 88812 TRIM SKIN LESIONS, 2 TO 4, Modifiers: XS * Follow Up:?prn * Images: * Sign off status: Completed true * Provider:?Sushila Heredia DPM Date:?1 05/06/2023 Generated for Jeannie grady/Kevin/eTransmitting on:?08/08/2024 02:39 PM [...]
--- OUTSIDE RECORDS SUMMARY | 2024-08-08 14:39 | XMS_ITS ---
Author Organization Omid Jimenes MD Address [address] [place], [place] [phone] Care Team Providers Care Senior Asic Engineer Name Role Phone Omid Jimenes Primary Care [...] Location Date Provider Diagnosis Omid Jimenes MD [address] [place] [address] [address] [place] [phone] 03/06/2024 Omid Jimenes Plan Of Treatment Referrals Referral Date Details 03/07/2024 03/07/2024, osteopen ia of hip please eval and treat , Patrice Jay Next Appt Details Provider Name:Omid Akhtar ier, 09/26/2024 07:45:00 AM, [address] [place] [address], Suite [facility], [place], [place], [phone], Provider Name:Omid Akhtar ier, 09/29/2024 02:00:00 PM, [address] [place] [address], Suite [facility], [place], [place], [phone], Provider Name:Omid Akhtar ier, 02/24/2025 07:15:00 AM, [address] [place] [address], Suite [facility], [place], [place], [phone], Provider Name:Omid jor, 03/03/2025 02:30:00 PM, [address] [place] [address], Suite [facility], [place], [place], [phone], Progress Notes * Vy WAITE LDOB:1945 (78 yo F)Acc No.[id number]:03/06/2024 Patient:?Vy Waite :1945???Age:78 Y???Sex:Female Address:[address] [place] [address] Subjective: * Chief Complaints: * ???Bone density results * Medical History:? * Surgical History:? * Hospitalization/Major Diagno stic Procedure:? * Medications:? Objective: Assessment: Plan: * Treatment: * Procedure Codes:? * true * Date:? Generated for Jeannie grady/Kevin/eTransmitting on:?08/08/2024 02:39 PM EDT Consultation Request Notes Referral Date Referring Provider Referred Provider Not es 03/07/2024 Omid Jimenes, Patrice shannon of hip please eval and treat
--- OUTSIDE RECORDS SUMMARY | 2024-08-08 14:39 | XMS_ITS | Patient Health Record ---
Author Organization Omid Jimenes MD Address [address] [place] [phone] Care Team Providers Care Piece Dye Worker Name Role Phone Omid Jimenes Primary Care [...] pravastatin Pravachol cramps Drug Allergy Activ e Results Component Value Reference Range Notes Hemoglobin A1c Reviewed date:11/26/2023 01:59:51 PM Interpretation: Performing Lab: Notes/Report: Hemoglobin A1c 6.9 Liver Panel Reviewed date:08/20/2023 12:45:36 PM Interpretation: Performing Lab:[facility], [address] [place] [phone] Notes/Report: Bilirubin Total 0.4 0.0-1.0 mg/dL Bilirubin Direct 0.2 0.0-0.5 mg/dL Aspartate Amino Transferase 29 5-31 U/L Alanine Aminotransferase 20 0-31 U/L Total Protein 7.6 6.5-8.0 g/dL Albumin Level 3.8 3.5-5.0 g/dL Alkaline Phosphatase 76 39-117 U/L Glucose Fasting Reviewed date:08/20/2023 12:38:19 PM Interpretation: Performing Lab:[facility], [address] [place] [phone] Notes/Report: Glucose Fasting 146 60-99 mg/dL A fasting glucose of 126 mg/dl or greater on more than one occasion is considered diagnostic of diabetes. Lipid Panel with Reflex Reviewed date:08/20/2023 12:53:15 PM Interpretation: Performing Lab:[facility], [address] [place] [phone] Notes/Report: Triglycerides 151 <150 mg/dL Desirable Triglyceride: less than 150 mg/dL Borderline High Triglyceride 150-199 mg/dL High Triglyceride: 200-499 mg/dL Very High Triglyceride: greater than or equal to 5OO mg/dL Cholesterol 158 <200 mg/dL Desirable Cholesterol: less than 200 mg/dL Borderline High Cholesterol: 200-239 mg/dL High Cholesterol: greater than 239 mg/dL LDL Cholesterol Calculated 81 <100 mg/dL Desirable LDL: less than 100 mg/dL Near Optimal/Above Optimal LDL: 110-129 mg/dL Borderline High LDL: 130-159 mg/dL High LDL: 160-189 mg/dL Very High LDL: greater than or equal to 190 mg/dL HDL Cholesterol 47 >40 mg/dL Desirable HDL: greater than 40 mg/dL Note: This HDL assay may give artificially low results in patients with liver disease. Hemoglobin A1c Reviewed date:08/20/2023 12:37:43 PM Interpretation: Performing Lab:[facility], [address] [place] [phone] Notes/Report: Hemoglobin A1c % 6.8 <6.0 % Hemoglobin A1C Reference Range Adults: 4.8 - 6.0 % Non diabetic: < 6.0 % Goal: < 7.0 % Additional Action Suggested: > 8.0 % Note: Hemoglobin A1c results are invalid for patients with abnormal amounts of HbF. Blood transfusions may impact the HbA1c concentration in the patient sample. Estimated Average Glucose 148 eAG = Estimated average glucose which is %A1C expressed as average glucose, using the formula of the B1X-Tfteylg Average Glucose study (ADAG), Diabetes Care, Vol.31,#8, Nov. 2007 Glucose, finger stick Reviewed date:11/26/2023 01:53:20 PM Interpretation: Performing Lab: Notes/Report: Value 183 Glucose, finger stick Reviewed date:12/18/2023 11:23:09 AM Interpretation: Performing Lab: Notes/Report: Value 190 Complete Blood Count Auto Di ff Reviewed date:02/19/2024 08:34:52 PM Interpretation: Performing Lab:[facility], [address] [place] [phone] Notes/Report: White Blood Count 10.3 4.8-10.8 X10*3/uL Red Blood Count 3.84 4.20-5.50 X10*6/uL Hemoglobin 12.3 12.0-16.0 g/dl Hematocrit 38.5 37.0-47.0 % Mean Corpuscular Volume 100.3 80.0-98.0 fL Mean Corpuscular Hemoglobin 32.0 27.0-33.0 pg Mean Corpuscular HGB Conc 31.9 31.0-35.0 g/dl Red Cell Distribution Width 14.9 11.0-16.0 % Platelet Count 316 160-400 X10*3/uL Mean Platelet Volume 10.8 9.4-12.3 fL Neutrophils Percent Auto 62.0 45-73 % Imm Gran Pct Auto 0.5 0.0-0.4 % Lymphocytes Percent Auto 26.7 20-40 % Monocytes Percent Auto 8.6 2-11 % Eosinophils Percent Auto 1.9 0-4 % Basophils Percent Auto 0.3 0-2 % NRBC Pct Auto 0.0 0.0-0.2 /100WBC Neutrophils Absolute Auto 6.4 2.0-8.3 x10*3/uL Imm Gran Abs Auto 0.05 0.00-0.03 X10*3/uL Lymphocytes Absolute Auto 2.7 1.2-4.9 X10*3/uL Monocytes Absolute Auto 0.9 0.1-1.2 X10*3/uL Eosinophils Absolute Auto 0.2 0.0-0.4 X10*3/uL Basophils Absolute Auto 0.0 0.0-0.2 X10*3/uL NRBC Abs Auto 0.000 0.0-0.012 X10*3/uL Comprehensive [place]. Panel Fa st Reviewed date:02/19/2024 08:44:28 PM Interpretation: Performing Lab:[address] [phone] Notes/Report: Sodium 141 135-145 mmol/L Potassium 4.4 3.3-5.1 mmol/L Chloride 102 96-108 mmol/L Carbon Dioxide 27 22-29 mmol/L Anion Gap 16 12-20 Blood Urea Nitrogen 28 9-16 mg/dL Creatinine 1.40 0.5-1.4 mg/dL Estimated Glomerular Filt Rate 36 NOTE: For -Lao individuals, multiply the result by 1.210. Chronic Kidney Disease: Estimated GFR < 60 mL/min/1.73m2 Severe Kidney Disease: Estimated GFR < 15 mL/min/1.73m2 Glucose Fasting 117 60-99 mg/dL A fasting glucose from 100-125 mg/dl is considered impaired (pre-diabetes). Calcium 10.4 8.4-10.2 mg/dL Bilirubin Total 0.5 0.0-1.0 mg/dL Aspartate Amino Transferase 36 5-31 U/L Alanine Aminotransferase 23 0-31 U/L Total Protein 7.5 6.5-8.0 g/dL Albumin Level 3.8 3.5-5.0 g/dL Alkaline Phosphatase 83 39-117 U/L IRON PROFILE Reviewed date:02/19/2024 08:33:19 PM Interpretation: Performing Lab:[facility], [address] [place] [phone] Notes/Report: Iron 84 30-160 mcg/dL Total Iron Binding Capacity 256 228-428 mcg/dL Percent Iron Saturation 33 15-50 % Unsaturated Iron Binding 172 Lipid Panel Reviewed date:02/19/2024 08:24:06 PM Interpretation: Performing Lab:[facility], [address] [place] [phone] Notes/Report: Triglycerides 134 <150 mg/dL Desirable Triglyceride: less than 150 mg/dL Borderline High Triglyceride 150-199 mg/dL High Triglyceride: 200-499 mg/dL Very High Triglyceride: greater than or equal to 5OO mg/dL Cholesterol 137 <200 mg/dL Desirable Cholesterol: less than 200 mg/dL Borderline High Cholesterol: 200-239 mg/dL High Cholesterol: greater than 239 mg/dL LDL Cholesterol Calculated 69 <100 mg/dL Desirable LDL: less than 100 mg/dL Near Optimal/Above Optimal LDL: 110-129 mg/dL Borderline High LDL: 130-159 mg/dL High LDL: 160-189 mg/dL Very High LDL: greater than or equal to 190 mg/dL HDL Cholesterol 42 >40 mg/dL Desirable HDL: greater than 40 mg/dL Note: This HDL assay may give artificially low results in patients with liver disease. Vitamin D 25-OH Total Reviewed date:02/19/2024 08:32:16 PM Interpretation: Performing Lab:[facility], [address] [place] [phone] Notes/Report: Vitamin D 25-OH Total 37.7 >30 ng/mL Health Based Reference Values* < 20 ng/mL Deficient 20-30 ng/mL Insufficient > 30 ng/mL Sufficient *Carol Ann PEARCE. N Engl J Med. 2007;357:266-280 Care must be taken in interpreting Vitamin D results from different laboratories and methodologies. Published data demonstrated that results from patients undergoing hemodialysis may show a negative bias when tested with various automated 25-OH vitamin D assays when compared to LC-MS/MS. When testing samples from patients whose predominant form of Vitamin D is Vitamin D2, such as patients receiving Vitamin D2 supplementation, results that are subtherapeutic should be confirmed with another method such as LC-MS/MS. TSH reflex Free T4 Reviewed date:02/19/2024 08:33:11 PM Interpretation: Performing Lab:[facility], [address] [place] [phone] Notes/Report: TSH reflex Free T4 3.76 0.32-4.0 uIU/mL Microalbumin, Random Reviewed date:02/19/2024 08:24:16 PM Interpretation: Performing Lab:[facility], [address] [place] [phone] Notes/Report: Creatinine Urine 88.42 Microalbumin Urine 32.0 Microalbum/Creatinine Ratio Ur 36.1 <30 ug/mg cr Albumin/Creatinine Ratio Reference Ranges: Normal: < 30 ug/mg creatinine Microalbuminuria: 30 - 300 ug/mg creatinine Clinical Albuminuria: > 300 ug/mg creatinine Hemoglobin A1c Reviewed date:02/19/2024 08:36:41 PM Interpretation: Performing Lab:[facility], [address] [place] [phone] Notes/Report: Hemoglobin A1c % 5.9 <6.0 % Hemoglobin A1C Reference Range Adults: 4.8 - 6.0 % Non diabetic: < 6.0 % Goal: < 7.0 % Additional Action Suggested: > 8.0 % Note: Hemoglobin A1c results are invalid for patients with abnormal amounts of HbF. Blood transfusions may impact the HbA1c concentration in the patient sample. Estimated Average Glucose 123 eAG = Estimated average glucose which is %A1C expressed as average glucose, using the formula of the I9Z-Lhejbdp Average Glucose study (ADAG), Diabetes Care, Vol.31,#8, Nov. 2007 UA ClnCatch+Micro w/rflx Cul t Reviewed date:02/19/2024 08:35:51 PM Interpretation: Performing Lab:[facility], [address] [place] [phone] Notes/Report: Urine, Clean Catch Color Urine Yellow Appearance Urine Clear PH 7.0 5.0-9.0 Glucose Urine UA Negative Negative mg/dL Urine Blood Negative Negative Specific [place] - Urine 1.010 1.005-1.025 Urine Protein Negative Neg-Trace mg/dL Urine Ketones Negative Negative mg/dL Nitrite Urine Negative Negative Leukocyte Esterase Urine Small (1+) Negative RBC Urine 0-2 0-2 /HPF WBC Urine 6-10 0-5 /HPF Squamous Epithelial Cell Urine 11-20 0-2 /HPF Bacteria Urine 1+ None Seen Hyaline Casts Urine 6-10 0-2 /LPF Nini Melendez Reviewed date:08/20/2023 12:43:59 PM Interpretation: Performing Lab:[facility], [address] [place] [phone] Notes/Report: Nini Melendez See Note Specimen held untested for 24 hours; Call to request Chemistry testing. Nini Melendez Reviewed date:02/19/2024 05:44:22 PM Interpretation: Performing Lab:[facility], [address] [place] [phone] Notes/Report: Hold Gold See Note Specimen held untested for 24 hours; Call to request Chemistry testing. Urine Culture Reviewed date:02/20/2024 05:04:39 PM Interpretation: Performing Lab:[facility], [address] [place] [phone] Notes/Report: Urine Culture Report Result Urine Culture 50,000 to 100,000 cfu/ml Urine Culture Mixed bacterial [place] a characteristic of Urine Culture urogenital contamination. XR DEXA axial skeleton Reviewed date:02/29/2024 05:11:35 PM Interpretation: Performing Lab: Notes/Report: [facility] [address] [place] [address] Mammography Report Signed Patient: Vy Fishman MR#: [id number] 121 : 1945 Acct:[id number] Age/Sex: 78 / F ADM Date: 02/28/24 Loc: HO.MAMMO Attending Dr: Omid Jimenes MD Ordering Physician: Omid Jimenes MD Results: Date of Service: 02/28/24 Follow Up: Procedure(s): XR DEXA axial skeleton Accession Number(s): [id number] cc: Omid Jimenes MD EXAMINATION: BONE DENSITOMETRY CLINICAL INDICATION: Age-related osteoporosis without current pathological fracture. COMPARISON: This is the patient's baseline examination. TECHNIQUE: Using a [employer] DXA System (software version: 13.1) manufactured by [employer], dual-energy x-ray absorptiometry was performed of the lumbar spine and left hip. The images are of good technical quality. Summary results are attached. FINDINGS: AP SPINE L1-L4: BMD 1.399 g/cm2, Z-score 2.5, T-score 1.8, normal. LEFT FEMUR, NECK: BMD 0.712 g/cm2, Z-score -1.0, T-score -2.3, osteopenia. LEFT FEMUR, TOTAL: BMD 0.888 g/cm2, Z-score 0.2, T-score -1.0, normal. IDENTIFIED RISK FACTORS: Height loss. Menopause. HISTORY OF FRACTURE: None listed. MEDICATIONS: Calcium supplement and/or multivitamin. Vitamin D. MM/XR DEXA axial skeleton IMPRESSION: 1. DIAGNOSIS: Osteopenia based on the lowest T-score value of -2.3 in the femoral neck applying World Health Organization criteria. 2. 10-YEAR FRACTURE RISK PREDICTION, FRAX: Major osteoporotic fracture (clinical spine, forearm, hip or shoulder) 14.9%. Hip fracture 4.5%. 3. Treatment Recommendations: NOF guidelines recommend consideration for treatment in postmenopausal women and men age 50 and older presenting with the following: -A hip or vertebral (clinical or morphometric) fracture. -T-score less than or equal to -2.5 at the femoral neck or spine after appropriate evaluation to exclude secondary causes. -Low bone mass at the hip or spine and a 10-year fracture probability by FRAX of greater than or equal to 3% for hip fracture or greater than or equal to 20% for major osteoporotic fracture based on the [place] adapted WHO algorithm. 4. Other Recommendations: All treatment decisions require clinical judgment and consideration of individual patient factors, including patient preferences, comorbidities, previous drug use, risk factors not captured in the FRAX model (e.g. frailty, falls, vitamin D deficiency, increased bone turnover, interval significant decline in bone density) and possible under or overestimation of fracture risk by FRAX. Additional medical evaluation for secondary cause of low bone mineral density may be appropriate. FUTURE SCAN RECOMMENDATION: People with diagnosed cases of osteoporosis or at high risk for fracture should have regular bone mineral density tests. For patients eligible for Medicare, routine testing is allowed once every 2 years. The testing frequency can be increased to one year for patients who have rapidly progressing disease, those who are receiving or discontinuing medical therapy to restore bone mass, or have additional risk factors. Electronically signed by: Serjio Castañeda MD 02/29/2024 12:19 PM EDT Dictated By: Serjio Castañeda MD Signed By: <Electronically signed by Serjio Castañeda MD in OV> 02/29/24 1219 DD/ 1300 TD/TT: 02/28/24 1320 [employer] Distributor Tender: NATALIE [place] [facility] [address] [place] [address] Mammography Report Signed Patient: Vy Fishman MR#: [id number] 121 : 1945 Acct:[id number] Age/Sex: 78 / F ADM Date: 02/28/24 Loc: HO.MAMMO Attending Dr: Omid Jimenes MD Ordering Physician: Omid Jimenes MD Results: Date of Service: 02/28/24 Follow Up: Procedure(s): XR DEX A axial skeleton Accession Number(s): [id number] cc: Omid Jimenes MD EXAMINATION: BONE DENSITOMETRY CLINICAL INDICATION: Age-related osteoporosis without current pathological fracture. COMPARISON: This is the patient' s baseline examination. TECHNIQUE: Using a [employer] DXA System (software version: 13.1) manufactured by [employer], dual-energy x-ray absorptiometry was performed of the lumbar spine and left hip. The images are of good technical quality. Summary results are attached. FINDINGS: AP SPINE L1-L4: BMD 1.399 g/cm2, Z-score 2.5, T-score 1.8, normal. LEFT FEMUR, NECK: BMD 0.712 g/cm2, Z-score -1.0, T-score -2.3, osteopenia. LEFT FEMUR, TOTAL: BMD 0.888 g/cm2, Z-score 0.2, T-score -1.0, normal. IDENTIFIED RISK FACTORS: Height loss. Menopause. HISTORY OF FRACTURE: None listed. MEDICATIONS: Calcium supplement and/or multivitamin. Vitamin D. MM/XR DEXA axial skeleton IMPRESSION: 1. DIAGNOSIS: Osteopenia based on the lowest T-score value of -2.3 in the femoral neck applying World Health Organization criteria. 2. 10-YEAR FRACTURE RISK PREDICTION, FRAX: Major osteoporotic fracture (clinical spine, forearm, hip or shoulder) 14.9%. Hip fracture 4.5%. 3. Treatment Recommendations: NOF guidelines recommend consideration for treatment in postmenopausal women and men age 50 and older presenting with the following: -A hip or vertebral (clinical or morphometric) fracture. -T-score less than o r equal to -2.5 at the femoral neck or spine after appropriate evaluati on to exclude secondary causes. -Low bone mass at th e hip or spine and a 10-year fracture probability by FRAX of greater than or equal to 3% for hip fracture or greater than or equal to 20% for major osteoporotic fracture based on the [place] adapted WHO algorithm. 4. Other Recommendations: All treatment decisions require clinical judgment and consideration of individual patient factors, including patient preferences, comorbidities, previous drug use, risk factors not captured in the FRAX model (e.g. frailty, falls, vitamin D deficiency, increased bone turnover, interval significant decline in bone density) and possible under o r overestimation of fracture risk by FRAX. Additional medical evaluation for secondary cause of low bone mineral density may be appropriate. FUTURE SCAN RECOMMENDATION: People with diagnose d cases of osteoporosis or at high risk for fracture should have regular bone mineral density tests. For patients eligible for Medicar e, routine testing is allowed once every 2 years. The testing frequenc y can be increased to one year for patients who have rapidly progressing disease, those who are receiving or discontinuing medica l therapy to restore bone mass, or have additional risk factors. Electronically gayle d by: Serjio Castañeda MD 02/29/2024 12:19 PM EDT Dictated By: Serjio Castañeda MD Signed By: <Electronically signed by Serjio Castañeda MD in OV> 02/29/24 1219 DD/ 1300 TD/TT: 02/28/24 1320 [employer] Distributor Tender: NATALIE EDWARDS tomosynthesis screening B I Reviewed date:05/25/2024 05:17:35 PM Interpretation: Performing Lab: Notes/Report: [facility] [address] [place] [address] [place] [address] Mammography Report Signed Patient: Vy Fishman MR#: [id number] 121 : 1945 Acct:[id number] Age/Sex: 78 / F ADM Date: 05/14/24 Loc: HO.MAMMO Attending Dr: Omid Jimenes MD Ordering Physician: Omid Jimenes MD Results: 2Be nigdimitry Findings Date of Service: 05/14/24 Follow Up: 1 Year From Orig inal Mammogram Procedure(s): MM tomosynthesis screening BI Accession Number(s): [id number] cc: Omid Jimenes MD EXAMINATION: MM SCREENING DIGITAL BREAST TOMOSYNTHESIS, BILATERAL CLINICAL INFORMATION: Screening. Asymptomatic. COMPARISON: Mammography: Comparison is made with available priors TECHNIQUE: Digital breast mammography with tomosynthesis is performed in both the craniocaudal and mediolateral oblique views along with computer-aided detection (CAD). FINDINGS: There are scattered areas of fibroglandular density (ACR BI-RADS breast composition Category b). Left marker clip. There are no significant masses, abnormal calcifications, or other abnormalities. MM/MM tomosynthesis screening BI IMPRESSION: No mammographic evidence of malignancy. ASSESSMENT: BI-RADS BI-RADS 2 - Benign Findings RECOMMENDATION: Routine annual mammography screening. 1 year F/U This examination should not preclude the clinical evaluation of a suspicious palpable abnormality. This patient's information was entered into a reminder system with a target due date for their next mammogram. Electronically signed by: Dahlia Green DO 05/25/2024 10:39 AM [facility] Dictated By: Dahlia Green DO Signed By: <Electronically signed by Dahlia Green DO in OV> 05/25/24 1039 DD/ 1445 TD/TT: 05/14/24 1520 Oil Distributor Tender: [facility] [address] [place] [address] [place] [address] Mammography Report Signed Patient: Vy Fishman MR#: [id number] 121 : 1945 Acct:[id number] Age/Sex: 78 / F ADM Date: 05/14/24 Loc: AGATHA Attending Dr: Omid Jimenes MD Ordering Physician: Omid Jimenes MD Results: 2Be nigdimitry Findings Date of Service: 05/14/24 Follow Up: 1 Year From Orig inal Mammogram Procedure(s): MM tomosynthesis screening BI Accession Number(s): [id number] cc: Omid Jimenes MD EXAMINATION: MM SCREENING DIGITAL BREAST TOMOSYNTHESIS, BILATERAL CLINICAL INFORMATION: Screening. Asymptomatic. COMPARISON: Mammography: Comparison is made with available priors TECHNIQUE: Digital breast mammography with tomosynthesis is performed in both the craniocaudal and mediolateral oblique views along with computer-aided detection (CAD). FINDINGS: There are scattered areas of fibroglandular density (ACR BI-RADS breast composition Category b). Left marker clip. There are no significant masses, abnormal calcifications, or other abnormalities. MM/MM tomosynthesis screening BI IMPRESSION: No mammographic evidence of malignancy. ASSESSMENT: BI-RADS BI-RADS 2 - Benign Findings RECOMMENDATION: Routine annual mammography screening. 1 year F/U This examination should not preclude the clinical evaluation of a suspicious palpable abnormality. This patient's information was entered into a reminder system with a target due date for their next mammogram. Electronically gayle d by: Dahlia Green DO 05/25/2024 10:39 AM EST RP Dictated By: Dahlia Green DO Signed By: <Electronically signed by Dahlia Green DO in OV> 05/25/24 1039 DD/ 1445 TD/TT: 05/14/24 1520 Oil Distributor Tender: Reason For Referral Reason osteopenia of hip [...] Referral Priority Routine Referral Appointment Date 03/25/2024 Medications Medication SIG (Take, Route, Frequency, Duration) Notes Start Date End Date Status Calcitriol 0.25 MCG 1 capsule Orally Thr ee times a Week for 90 days Active ZyrTEC Allergy 10 MG 1 tablet Orally Onc e a day for 90 days Active traZODone HCl 50 MG 1 tablet at bedtime as needed Orally Once a day for 30 day(s) Active Flovent HFA 220 MCG/ACT USE 2 PUFFS TWIC E DAILY Inhalation Twice a day for 90 days Active Ondansetron 4 MG 1 tablet on the tong ue and allow to dissolve Orally twicea day for 7 days 11/30/2023 Active Nystop [id number] UNIT/GM APPLY ONE APPLICAT ION EXTERNALLY TWO TIMES A DAY Externally Twice a day for 90 days Active Meclizine HCl 25 MG TAKE ONE TABLET BY M OUTH TWICE A DAY NEEDED Orally every 12 hrs for 28 days Active Ferrous Sulfate 325 (65 Fe) MG 1 tablet Orally Once a day for 90 days Active Gabapentin 400 MG 1 capsule Orally Onc [...] 4 hrs for 90 days 10/30/2019 Active Allopurinol 100 MG TAKE TWO TABLETS BY MOUTH EVERY DAY Oral Once a day for 90 days Active Bepreve 1.5 % INSTILL 1 TO 2 DROPS IN EACH EYE DAILY NEEDED Ophthalmic Twice a day for 20 days Active CareOne Unifine Pentips Plus 31G [...] Once a day for 90 days Active Mounjaro 5 MG/0.5ML INJECT CONTENTS OF O NE PEN UNDER THE SKIN ONCE A WEEK for 28 Active Furosemide 80 MG TAKE ONE TABLET BY M OUTH TWICE A DAY Orally teice a day for 90 days Active Spiriva [...] Once a day for 90 days Active Lantus SoloStar 100 UNIT/ML as 100 units Subcutaneous 100 units units BID for 90 days Active Florastor 250 MG TAKE ONE CAPSULE BY MOUTH TWICE A DAY Orally twice a day for 90 days Active Atorvastatin Calcium 20 MG TAKE ONE TABL ET BY MOUTH EVERY DAY for 90 Active MiraLax 17 GM/SCOOP 1 scoop mixed with 8 ounces of fluid Orally Once a day for 90 days Active Aspir-Low 81 MG 1 tablet Orally Once a day for 90 days Active Calcitriol 0.25 MCG 1 capsule Orally Thr ee times a Week for 30 day(s) Activ e HYDROcodone-Acetaminophen 7.5-325 MG (Schedule II Drug) TAKE 1 TABLET BY MOUTH EVERY 8 HOURS NEEDED FOR PAIN Oral for 30 Active Immunizations Vaccine Route Administration Date Status Comme nts Flu Vaccine IM Intramuscular 01/24/2011 Administered Flu Vaccine IM Intramuscular 02/02/2012 Administered Prevnar 13 IM Intramuscular 04/02/2012 Administered PPSV23 (Pnemovax) Unknown 11/04/2008 Administered Flu Vaccine IM Intramuscular 01/27/2013 Administered TDaP IM Intramuscular 12/08/2014 Administered Fluarix Quadrivalent IM Intramuscular 02/19/2015 Administe red PPSV23 (Pnemovax) IM Intramuscular 06/29/2015 Administered Fluarix Quadrivalent IM Intramuscular 02/25/2016 Administe red Fluarix Quadrivalent IM Intramuscular 01/09/2017 Administe red Shingrix IM Intramuscular 11/27/2017 Administered Fluarix Quadrivalent IM Intramuscular 01/08/2018 Administe red Shingrix IM Intramuscular 03/04/2018 Administered Fluarix Quadrivalent IM Intramuscular 01/14/2019 Administe red Influenza High Dose IM Intramuscular 01/02/2020 Administer ed Shingles Unknown 03/04/2018 Administered Covid Vaccine Unknown 05/25/2020 Administered Moderna Covid Vaccine Unknown 06/28/2020 Administered Influenza High Dose IM Intramuscular 01/20/2021 Administer ed SARS-COV-2 Pfizer Unknown 02/10/2021 Administered SARS-COV-2 Pfizer Unknown 12/14/2020 Administered PPSV23 (Pnemovax) IM Intramuscular 02/10/2021 Administered SARS-COV-2 Moderna Unknown 07/14/2021 Administered zzz Unknown 04/02/2012 Pending Social History Tobacco Use: Social History Observation [...] Problem Status W/U Status Risk Notes Problem 72238229 Hemoptysis (R04.2) Active confirmed Problem 38163774 Vitamin D defici ency (E55.9) Active confirmed Problem 67633328 Hypercalcemia (E83.52) Active confirme d Problem [id number] Other specified menopausal and perimenopausal disorders (N95.8) Active confirmed Problem 702512687 Body mass index (BMI) 45.0-49.9, adult (Z68.42) Active confirmed Problem 2186884 Arthritis (M19.90) Active confirmed Problem 1276268 Diastolic dysfun ction (I51.9) Active confirmed Problem 931682768 Tubular adenoma of colon (D12.6) Active confirmed Problem 30370235 Essential hypert ension (I10) Active confirmed Problem 518017356 Acquired hypothyroidism (E03.9) Active confirmed Problem 088332356 Mild intermitten t asthma without complication (J45.20) Active confirmed Problem 22677505 Type 2 diabetes mellitus without complication (E11.9) Active confirmed Problem 2853155 Aortic valve dis order (I35.9) Active confirmed Problem 963462756 Morbid obesity d ue to excess calories (E66.01) Active confirmed Problem 81122928 Chronic obstruct manolo pulmonary disease, unspecified COPD type (J44.9) Active confirmed Problem 433738907 History of hemat uria (Z87.448) Active confirmed Problem 744849392 Acute systolic congestive heart failure (I50.21) Active confirmed Problem 436649077759744 Moderate persist ent asthma with acute exacerbation (J45.41) Active confirmed Problem 119119770 Iron deficiency anemia due to chronic blood loss (D50.0) Active confirmed Problem 236600952 GERD (gastroesop hageal reflux disease) (K21.9) Active confirmed Problem 11442335 Aortic valve terrence nosis, unspecified etiology (I35.0) Active confirmed Problem 87535317 Liver cyst (K76.89) Active confirmed Problem 044406502 Pure hypercholesterolemia (E78.00) Active confirmed Problem 276541262 OAB (overactive bladder) (N32.81) Active confirmed Problem 36439815 CLEVE (obstructive sleep apnea) (G47.33) Active confirmed Problem 385750245 Hand arthritis (M19.049) Active confirmed Problem 131605120 Arthritis pain o f hand (M19.049) Active confirmed Problem 215968461 Arthritis pain o f shoulder (M19.019) Active confirmed Problem History of heart valve repair with prosthesis ([id number]) H/O aortic valve replacement (Z95.2) Active confirmed Problem 410289805 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) Active confirmed Problem 718019407 Acute constipati on (K59.00) Active confirmed Vital Signs Blood pressure diastolic 76 mm Hg 02/29/2024 vamsi ght is down 8 pounds since 12-17-23 Height 64 in 02/29/2024 weight is down 8 pounds since 12-17-23 Blood pressure systolic 158 mm Hg 02/29/2024 weig ht is down 8 pounds since 12-17-23 Weight 252 lbs 02/29/2024 weight is down 8 pounds since 12-17-23 BMI 43.25 kg/m2 02/29/2024 weight is down 8 pounds since 12-17-23 Encounters Encounter Location Date Provider Diagnosis Omid Jimenes MD [address] [place] [address] [id number] 08/20/2023 Omid Jimenes Type 2 diabetes kel itus without complication E11.9 and Pure hypercholesterolemia E78.00 Omid Jimenes MD [address] [place] [address] [id number] 08/27/2023 Omid Jimenes Type 2 diabetes kel itus without complication E11.9 ; Mild intermittent asthma without complication J45.20 and Low back pain, unspecified back pain laterality, unspecified chronicity, unspecified whether sciatica present M54.50 Omid Jimenes MD [address] [place] [address] [id number] 11/26/2023 Omid Jimenes Type 2 diabetes kel itus without complication E11.9 and Postmenopausal osteoporosis M81.0 Omid Jimenes MD [address] [place] [address] [id number] 11/30/2023 Omid Jimenes Acute cellulitis L03 .90 Omid Jimenes MD [address] [place] [address] [id number] 12/17/2023 Omid Jimenes Acute constipation K 59.00 ; Acute cellulitis L03.90 and Type 2 diabetes mellitus without complication E11.9 Omid Jimenes MD [address] [place] [address] [id number] 02/19/2024 Omid Jimenes Type 2 diabetes kel itus without complication E11.9 ; Acquired hypothyroidism E03.9 ; Essential hypertension I10 ; Vitamin D deficiency E55.9 and Iron deficiency anemia due to chronic blood loss D50.0 Omid Jimenes MD [address] [place] [address] [id number] 02/29/2024 Omid Jimenes Acute systolic conge stive heart failure I50.21 ; Morbid obesity due to excess calories E66.01 and Chronic obstructive pulmonary disease, unspecified COPD type J44.9 Omid Jimenes MD [address] [place] [address] [id number] 09/20/2023 Omid Jimenes MD [address] [place] [address] [id number] 10/30/2023 Omid Jimenes Type 2 diabetes kel itus without complication E11.9 Omid Jimenes MD [address] [place] [address] [id number] 12/10/2023 Omid Jimenes MD [address] [place] [address] [id number] 01/01/2024 Omid Jimenes MD [address] [place] [address] [id number] 02/07/2024 Omid Jimenes Type 2 diabetes kel itus without complication E11.9 ; Arthritis M19.90 ; Essential hypertension I10 ; Laceration of left knee, subsequent encounter S81.012D ; Acquired hypothyroidism E03.9 ; GERD (gastroesophageal reflux disease) K21.9 ; Acute systolic congestive heart failure I50.21 ; Pure hypercholesterolemia E78.00 ; Mild intermittent asthma without complication J45.20 and Acute cellulitis L03.90 Omid Jimenes MD [address] [place], [place] [id number] 03/06/2024 Omid Jimenes MD [address] [place], [place] [id number] 03/07/2024 Omid Jimenes Breast cancer screen ing Z12.31 Assessments Encounter Date Diagnosis (ICD Code) Assessment Notes Treatment Notes Treatment Clinical Notes Section Notes 08/20/2023 Type 2 diabetes mellitus without complication (ICD-10 - E11.9) 08/20/2023 Pure hypercholesterolemia (ICD-10 - E78.00) 08/27/2023 Type 2 diabetes mellitus without complication (ICD-10 - E11.9) patient verbalized understanding of change in medications and directions for use 08/27/2023 Mild intermittent asthma without complication (ICD-10 - J45.20) to speak to dr barrett 11/26/2023 Type 2 diabetes mellitus without complication (ICD-10 - E11.9) will continue current regiment 11/26/2023 Postmenopausal osteoporosis (ICD-10 - M81.0) pending diagnostic testing, THE BONE DENSITY ORDER HAS BEEN FAXED TO [facility] [place] [facility] FOR SCHEDULING 11/30/2023 Acute cellulitis (ICD-10 - L03.90) patient verbalized understanding of medication and directions for use 12/17/2023 Acute constipation (ICD-10 - K59.00) doing better, will continue to monitor 12/17/2023 Acute cellulitis (ICD-10 - L03.90) has resolved 02/19/2024 Type 2 diabetes mellitus without complication (ICD-10 - E11.9) 02/19/2024 Acquired hypothyroid ism (ICD-10 - E03.9) 02/29/2024 Acute systolic congestive heart failure (ICD-10 - I50.21) stable with coninuous shortness of breath/ order faxed to [facility] [place] [facility] dept 02/29/2024 Morbid obesity due t o excess calories (ICD-10 - E66.01) has lost some weight 10/30/2023 Type 2 diabetes mellitus without complication (ICD-10 - E11.9) 02/07/2024 Type 2 diabetes mellitus without complication (ICD-10 - E11.9) 08/27/2023 Low back pain, unspecified back pain laterality, unspecified chronicity, unspecified whether sciatica present (ICD-10 - M54.50) is followed by Pain Managment 12/17/2023 Type 2 diabetes mellitus without complication (ICD-10 - E11.9) stable, will continue current regiment 02/19/2024 Essential hypertensi on (ICD-10 - I10) 02/29/2024 Chronic obstructive pulmonary disease, unspecified COPD type (ICD-10 - J44.9) stable 02/07/2024 Arthritis (ICD-10 - M19.90) 03/07/2024 Breast cancer screen ing (ICD-10 - Z12.31) 02/19/2024 Vitamin D deficiency (ICD-10 - E55.9) 02/07/2024 Essential hypertensi on (ICD-10 - I10) 02/19/2024 Iron deficiency anem ia due to chronic blood loss (ICD-10 - D50.0) 02/07/2024 Laceration of left knee, subsequent encounter (ICD-10 - S81.012D) 02/07/2024 Acquired hypothyroid ism (ICD-10 - E03.9) 02/07/2024 GERD (gastroesophage al reflux disease) (ICD-10 - K21.9) 02/07/2024 Acute systolic congestive heart failure (ICD-10 - I50.21) 02/07/2024 Pure hypercholesterolemia (ICD-10 - E78.00) 02/07/2024 Mild intermittent asthma without complication (ICD-10 - J45.20) 02/07/2024 Acute cellulitis (ICD-10 - L03.90) Plan Of Treatment Pending Test Test Name Order Date ECHO EXAM OF HEART 06/29/2015 CBC (INCLUDES DIFF/PLT) 10/07/2020 TSH (THYROID STIMULATING HORMONE) 2018 IRON + IBC (FE) 10/07/2020 VITAMIN B12 AND FOLATE 10/07/2020 XR KNEE LT 4 VIEWS 06/09/2022 BONE DENSITY DEXA 11/26/2023 MAMMOGRAM DIGITAL BILATERAL SCREEN 03/07 MAMMOGRAM DIGITAL BILATERAL SCREEN 02/28 EMG 12/07/2016 Nerve Conduction Study 12/07/2016 Next Appt Details Provider Name:Omid borden, 09/26/2024 07:45:00 AM, [address], [address], [place], [id number], Provider Name:Omid Akhtar ier, 09/29/2024 02:00:00 PM, [address], [address], [place], [phone], Provider Name:Omid Akhtar ier, 02/24/2025 07:15:00 AM, [address], [address], [place], [phone], Provider Name:Omid Akhtar ier, 03/03/2025 02:30:00 PM, [address], [address], [place], [phone], Insurance Providers Payer Name Payer Address Payer Phone Subscriber Number Group Number Insured Name Patient Relationship to Insured Coverage Start Date Coverage End Date [employer] [address] [place] [address] [id number] Vy Fishman Self - patient is the insured [facility] [address] [place] [phone] [id number] Vy Fishman Self - patient is the insured Medical (General) History Medical History History ICD Code Endoscopy and colonoscopy do ne 05/2007; both done 01/30/2014 repeat in 5 : 03/28/22 colonocopy awaiting path hematuria work up in 20's Needs yearly echo - DX Aortic Stenosis ( done 06/2015) ct abdomen 12/21 at [facility] normal
--- OUTSIDE RECORDS SUMMARY | 2024-08-08 14:39 | XMS_ITS | Clinical Summary ---
Author Organization [facility] ity Address [address] [place] [address] Care Team Providers Care Can Filler Name Role Phone Omid Jimenes MD Primary Care Provider [phone] Social History Tobacco Use Types Packs/Day Years [...] Vaccines (1 of 2) 1994 RSV Immunization Adult Patie nts (1 - 1-dose 75+ series) 07/04/2019 Depression Screening 03/29/2022 Falls Risk Assessment 03/29/2022 Osteoporosis Screening (Bone Density Screening) 03/29/2022 Social Influencers of Health Screening 03/29/2022 COVID-19 Vaccine ( - 2023-2 5 season) 2023 Influenza Vaccine (Season Ended) 2024 HIB Vaccines Aged Out No longer eligi [...] age to complete this topic Meningococcal B Vaccine Aged Out No l onger eligible based on patient's age to complete this topic RSV Immunization Patients Un radha 20 months Aged Out No longer eligible b ased on patient's age to complete this topic Varicella Vaccines Aged Out No longer eligible based on patient's age to complete this topic Care Teams Can Filler Relationship Specialty Start Date End Date Omid Jimenes MD PCP - General 12/21/10
--- OUTSIDE RECORDS SUMMARY | 2024-08-08 14:39 | XMS_ITS ---
Author Organization Omid Jimenes MD Address [address] [place] [phone] Care Team Providers Care Truck Car And Bus Cleaner Name Role Phone Omid Jimenes Primary Care Provider REASON FOR VISIT mammogram order updated Encounters Encounter Location Date Provider Diagnosis Omid Jimenes MD [address] [place] [id number] 03/07/2024 Omid Jimenes Breast cancer screening Z12.31 Assessments Encounter Date Diagnosis (ICD Code) Assessment Notes Treatment Notes Treatment Clinical Notes Section Notes 03/07/2024 Breast cancer screening (ICD-10 - Z12.31) Plan Of Treatment Pending Test Test Name Order Date MAMMOGRAM DIGITAL BILATERAL SCREEN 03/07 Next Appt Details Provider Name:Omid Akhtar ier, 09/26/2024 07:45:00 AM, [address], [address], [place], [place], [phone], Provider Name:Omid Akhtar ier, 09/29/2024 02:00:00 PM, [address] [place] [address] Drive, [address], [place], [place], [phone], Provider Name:Omid Akhtar ier, 02/24/2025 07:15:00 AM, [address] [place] [address], [address], [place], [place], [phone], Provider Name:Omid Akhtar ier, 03/03/2025 02:30:00 PM, [address] [place] [address], [address], [place], [place], [phone], Progress Notes * Vy WAITE LDOB:1945 (78 yo F)Acc No.[id number]:03/07/2024 Patient:?Vy Waite L :1945???Age:78 Y???Sex:Female Address:[address] [place] [address] Subjective: * Chief Complaints: * ???Mammogram order updated * Medical History:? * Surgical History:? * Hospitalization/Major Diagno stic Procedure:? * Medications:? Objective: Assessment: * Assessment: 1.?Breast cancer screening - Z12.31? Plan: * Treatment: * Procedure Codes:? * true * Date:? Generated for Jeannie grady/Kevin/eTransmitting on:?08/08/2024 02:39 PM EDT
--- OUTSIDE RECORDS SUMMARY | 2024-08-08 14:40 | XMS_ITS | Clinical Summary ---
Author Organization [facility] [place] [address] Care Team Providers Care Direct Care Worker Name Role Phone Unavailable Primary Care Provider [...] Daily. Active azelastine-fluticas one (DYMISTA) 137-50 mcg/spray [place], Non-Aerosol 1 puff in each nostril Active [...] puff into the lungs Twice daily. Active EP-Uio-Ejnaf Acid-Lutein (ESSENTIAL WOMAN 50+) 0.4-250 mg-mcg Tablet [...] Tablet 1 Active ipratropium (ATROVENT) 0.03 % [place], Non-Aerosol USE 2 SPRAYS BY NASAL ROUTE [...] relief and she will contact the paint spraying machine operator helper for consideration of a corticosteroid epidural injection. [...] of this 29-minute visit was spent in [id number]-in-gkha conversation with the patient and her present [...] Medications are be left unchanged and enlarged furniture inspector on tools and utensils and be used [...]
--- OUTSIDE RECORDS SUMMARY | 2024-08-08 14:40 | XMS_ITS ---
Author Organization [facility] Address [address] [facility] [place] [address] Care Team Providers Care Underwater Hunter Trapper Name Role Phone Omid Jimenes MD Primary Care Provider Sushila Campos Unavailable [phone] Brittany Montiel Unavailable [phone] Allergies Allergen (clinical drug ingredient) Drug/Non Drug Allergy documented on EMR Reaction Allergy Type Onset Date Status bacitracin Bacitracin swelling,itchy Drug Allergy Active sulfamethoxazole / trimethoprim Bactrim GI upset Drug Allergy Active ciprofloxacin Cipro GI upset Drug Allergy Act manolo erythromycin Erythromycin GI upset Drug Allergy A ctive dexamethasone / tobramycin TobraDex swelling, itchy Drug Allergy Active REASON FOR VISIT At Risk Footcare, Toe Irritation Medications Medication SIG (Take, Route, Frequency, Duration) Notes Start Date End Date Status Allopurinol 100 MG as directed Orally Active Lorena Active Colchicine PRN Active Bepreve 1.5 % 1 drop into affected eye Ophthalmic Twice a day Active Cephalexin PRN Active Atorvastatin Calcium Active Amoxicillin 250 MG USE 1 SUPPOSITORY RECTALLY TWICE A DAY Oral for 7 PRN Active Albuterol as directed PRN Active Extra Depth Orthopedic Shoes (1 Pair) with Customized Heat Molded Multidensity Innersoles (3 Pair) as directed Dx: NIDDM/Polyneuropat hy (E11.42), Hammertoe Foot Deformity (M20.41,M20.42), Preulcerative Skin Lesion(s) (L85.1 07/18/2024 Active Breo Ellipta Not-Jaylen ing Extra Depth Diabetic Shoes with 3 Pair Custom heat-molded multi-density innersoles for 1 year Dx: 10/06/2015 Not-Taking Ergocalciferol 33988 UNIT 1 capsule Oral ly for 30 day(s) Not-Taking Extra-Depth Diabetic Shoes with 3 Pair Custom heat-molded multi-density innersoles . for 1 year . Dx: for . 10/05/2014 Not-Taking Invokana 300 MG 1 tablet Orally [...] 500 MG as directed Orally Not-Takin g Ditropan Not-Taking Extra Depth Orthopedic Shoes (1 [...] for 30 Active ZyrTEC Allergy Activ e Vancomycin HCl 125 MG USE 1 SUPPOSITORY RECTALLY TWICE A DAY Oral for 14 PRN Active Vitamin C Active Spiriva Respimat Act manolo Valsartan 40 MG 1 tablet Orally Twice a day Active Synthroid Active tylenol Active Potassium Chloride ER Active predniSONE 10 [...] Once a day for 30 day(s) Active Levothyroxine Sodium 75 MCG 1 tablet on an empty stomach in the morning Orally Once a day Active Lantus 37 units injections Act manolo Januvia Active K-Tab 10 MEQ 1 tablet with food Orally Twice a day for 30 day(s) Active Ibuprofen 800mg 1 tablet as needed Orally every 6 hrs PRN Active Furosemide Active Fluticasone Propionate Active HYDROcodone-Acetaminophen 7.5-325 MG 1 tablet as needed Orally every 6 hrs Active Gabapentin 100 MG 1 capsule Orally morning 400 MG at night Active Florastor 250 MG 1 capsule Orally Twice a day for 30 day(s) Active EPINEPHrine PRN Active DULoxetine HCl 60 MG as directed Orally Once a day Active Ferrous Sulfate 325 (65 Fe) MG 1 tablet Orally Once a day for 30 day(s) Active Dymista Active Diovan 160mg 1 tablet Orally Once a day for 30 day(s) Active Social History Tobacco Use: Social History [...] ast year? No Points 0 Interpretation Negative Vital Signs Height 5 ft 3 in in 07/18/2024 Weight 257 lbs 07/18/2024 BMI 45.52 kg/m2 07/18/2024 Blood pressure systolic 130 mm Hg 07/19/19 25 Blood pressure diastolic 62 mm Hg 025 Encounters Encounter Location Date Provider Diagnosis [facility] [address] [address] 07/18/2024 Brittany Montiel Type 2 diabetes mellitus with diabetic polyneuropathy E11.42 ; Other hammer toe(s) (acquired), right foot M20.41 ; Tinea unguium B35.1 ; Other hammer toe(s) (acquired), left foot M20.42 and Pre-ulcerative calluses L84 Assessments Encounter Date Diagnosis (ICD Code) Assessment Notes Treatment Notes Treatment Clinical Notes Section Notes 07/18/2024 Type 2 diabetes mellitus with diabetic polyneuropathy (ICD-10 - E11.42) 07/18/2024 Other hammer toe(s) (acquired), right foot (ICD-10 - M20.41) Patient Educated with: DIABETIC FOOT CARE INSTRUCTIONS. pdf (DIABETIC FOOT CARE INSTRUCTIONS. pdf) 07/18/2024 Tinea unguium (ICD-10 - B35.1) 07/18/2024 Other hammer toe(s) (acquired), left foot (ICD-10 - M20.42) 07/18/2024 Pre-ulcerative calluses (ICD-10 - L84) Plan Of Treatment Medication Medication Name Sig Start Date Stop Date Notes Extra Depth Orthopedic Shoes (1 Pair) with Customized Heat Molded Multidensity Innersoles (3 Pair) as directed Dx: NIDDM/Polyneuropathy (E11.42), Hammertoe Foot Deformity (M20.41,M20.42), Preulcerative Skin Lesion(s) (L85.1 07/18/2024 Treatment Notes Assessment Notes Other hammer toe(s) (acquired), right fo ot Patient Educated with: DIABETIC FOOT CARE INSTRUCTIONS.pdf (DIABETIC FOOT CARE INSTRUCTIONS.pdf) Next Appt Details Follow Up: 3 Months, Reason: Provider Name:Sushila brasher, 09/24/2024 02:30:00 PM, [address] [place] [address], [phone], Procedure Notes * Category Sub-Category Detail Notes [...] to maintain effectiveness in symptomatic relief - 70844 Keratoma Treatment Parring or Cutting o f [...] stated and described in the exam ( SUB MTH (s), 1, B/L), were pared, and/or cut utilizing a sterile 15 blade, tissue nippers, and/or power dremel instrumentation by the physician of record - 12411 Progress Notes * Vy FISHMAN LDOB:1945 (79 yo F)Acc No.[id number]:07/18/2024 Progress Note Patient:?Vy FISHMAN Haley Provider:?Brtitany Montiel DPM :1945???Age:79 Y???Sex:Female D ate:07/18/2024 [facility], [id number] Pcp:Omid Jimenes MD Subjective: * Chief Complaints: * ???At Risk FootcareToe Irrit ation * HPI: ???At Risk footcare:?Pt States Last PCP Visit:?Date?06/02/2024 ???Toe pain:?Location:?B/L feet.?Duration:?several years.?Course:?worse.?Aggravated by:?shoes, any pressure.?Treatments:?change in shoes.? * ROS:?General/Constitutional:?Nausea?denies.?Vomiting?denies.?Hunger Thirst?denies.?Loss appetite?denies.?Chills?denies.?Fatigue?denies.?Fever?denies.?Night Sweats?denies.?Unexplained weight loss?denies.?Unexplained [...] Cervical disc replacement, 1 day stay. 05/07/2017[facility]-Systemic Gout 9 day stay- Discharged to rehab- 12 days-Went back to [facility] rehab 10/2018-01/10/2019[facility]- Constipation, swelling, 12/21 * Family History:?Mother: dece ased, foot problems.?Father: , diagnosed with Unspecified essential hypertension, Unspecified cerebral artery occlusion with cerebral infarction.?Paternal uncle: foot problems.? * Social History:?Tobacco Use:?Tobacco use other than smoking?Are you an other tobacco user??No ?Tobacco Control (Standard)?Tobacco use:?Nonsmoker ?Additional Findings: Tobacco non-user?Current nonsmoker ???Drugs/Alcohol:?Drugs?Have you used drugs other than those for medical reasons in the past 12 months??No ???Miscellaneous:?Caffeine: yes, frequency:, 2-3 cups per day. ?Children: yes, 2. ?Exercise: yes, occasional. ?Marital status: . ?Occupation: Retired. ???Drug/Alcohol:?AUDIT-C (Standard)?Did you have a drink containing alcohol in the past year??No ?Points?0 ?Interpretation?Negative * Medications:?TakingAtorvasta tin Calcium Albuterol Powder as [...] multi-density innersoles for 1 year Dx: Ergocalciferol 51719 UNIT Capsule 1 capsule Orally Breo Ellipta [...] innersoles for 1 year Dx: Not-Taking/PRN Ergocalciferol 47931 UNIT Capsule 1 capsule Orally Not-Taking/PRN Breo Ellipta Medication List reviewed and reconciled with the patient * Allergies:?Erythromycin: GI upsetCipro: GI upsetBacitracin: swelling,itchyTobraDex: swelling, itchyBactrim: GI upsetyes[Allergies Verified] Objective: * Vitals:?Ht: 5 ft 3 in, Wt: 2 57, BMI: 45.52, Shoe size: 10, BP: 130/62 mm Hg, BS: 84, Ht-cm: 160.02 cm, Wt-k.57 kg. * ???Past Orders: ???Lab:HEMOGLOBIN A1C (GLYCO HEMOGLOBIN) (Order Date - 06/02/2024) (Collection Date & Time - 07/18/2024 01:44 PM) ? Value Reference Range ?HEMOGLOBIN A1C % (HH) 6.0 * Examination: ???Ophthalmology Referral: ?DIABETES EYE EXAM?Procedure Performed:?Yes ?Date of Exam Performed?10/29/2023 ?Diabetic Retinopathy Screening:?Yes ?Findings of Diabetic Eye Exam:?no retinopathy?General Examination: ?GENERAL APPEARANCE:?Reveals a pleasant, alert, well nourished, well- developed, well hydrated individual, who demonstrates proper attention to hygiene/body habitus, and is in no acute distress, Pt serves as own historian for office visit today.?ORIENTED:?person, place, and time.?FOOT EXAM:?Lower Extremity Neurological Exam performed:?Yes Date ?Visual exam of foot performed:?Yes ?Date?07/18/2024 ?Footwear Evaluation?Footwear Evaluation performed:?Yes?Neurological: ?SENSORY:?, (DM/Neuro) Neurological exam demonstrates reduced sharp/dull pin prick discrimination reduced light touch sensation reduced vibration sensation reduced proprioception sensation in a stocking fashion 5.07 monofilament test performed at plantar aspects of 5 varied sites per foot shows sensation plantar aspects absent at Forefoot B/L.?Nails: ?NAILS are:?Elongated, overgrown, dystrophic, lytic, greater than 3mm thick, discolored and friable with crumbly malodorous subungual debris with dull to no pain on palpation due to neuropathy, TA, T1, T2, T3, T4, T5, T6, T7, T8, T9.?Dermatologic: ?SKIN FINDINGS:?Skin exam reveals Keratotic lesion(s) located at , SUB MTH (s), 1, B/L.?Vascular: ?DP PULSES (B):?1/4, B/L.?PT PULSES (B):? 1/4, B/L.?CAPILLARY FILL TIME:?3 secs. per digit, b/l.?TROPHIC CONDITION-TEXTURE/ELASTICITY/TURGOR/HAIR GROWTH (B):?decreased, fragile, thin, shiny skin, with sparse to absent hair growth.?TEMPERTURE GRADIENT (C):?warm to cool, proximal to distal.?PIGMENTATION:?, pale, B/L.?EDEMA (C):? 2/4, B/L, Ankle(s), Leg(s).?TELANGECTASIA:?absent.?VARICOSITIES:?absent.?Orthopedic: ?MUSCLE STRENGTH:?5/5 all groups in a symmetrical fashion, B/L?.?DIGITAL DEFORMITIES:?Digital contracture, PIPJ, 2-5 B/L, incompl-reducible to push-up test, no over, nor underlapping,?there is?evidence of shoe producing skin irritation.?FOOTWEAR:?worn, non-supportive, shoe gear properties exacerbate patient's foot/toe deformity.? Assessment: * Assessment: 1.?Other hammer toe(s) (acqu ired), right foot - M20.41 (Primary)???Specify :Chronic problem, Worse (4),Rx Management (4)???2.?Type 2 diabetes mellitus with diabetic polyneuropathy - E11.42???3.?Tinea unguium - B35.1???4.?Other hammer toe(s) (acquired), left foot - M20.42???Specify :Chronic problem, Worse (4),Rx Management (4)???5.?Pre-ulcerative calluses - L84??? Plan: * Treatment: * Procedures:?Debride Nail 6-10:?Nail [...] to maintain effectiveness in symptomatic relief - 05143.?Keratoma Treatment:?Parring or Cutting of Benign Hyperkeratotic Lesion(s)?(-56) [...] as stated and described in the exam (?SUB MTH (s),?1,?B/L), were pared, and/or cut utilizing a sterile 15 blade, tissue nippers, and/or power dremel instrumentation by the physician of record - 03222.? * Procedure Codes:?84909 DEBRI DE NAIL, 6 OR MORE, Modifiers: XS 42003 TRIM SKIN LESIONS, 2 TO 4, Modifiers: XS * Preventive Medicine:? ??Counseling:?Discussion:?-14: Office or other outpatient visit for the evaluation and management of an established patient, which required a medically appropriate history and/or examination and MODERATE level of DECISION MAKING for: 1 OR MORE CHRONIC PROBLEM(S) THATS WORSENING, 2 STABLE CHRONIC PROBLEMS, A NEWLY DIAGNOSED PROBLEM WITH UNCERTAIN PROGNOSIS, AN ACUTE COMPLICATED INJURY WITH MULTIPLE TREATMENT OPTIONS, OR AN ACUTE PROBLEM WITH ACCOMPANYING SYSTEMIC SYMPTOMS, THAT POSE(S) A MODERATE RISK OF MORBIDITY. THIS CONDITION MAY ALSO INCLUDE RX DRUG MANAGEMENT, OR A DECISON FOR MINOR SURGERY. The visit on the day of the encounter encompassed interpreting the data and educating the patient as to the nature of their condition, treatment options available according to their individual PMH, meds, allergies, and overall health/living conditions, as well as any potential risks or complications that may occur from a failure to adhere to, and participate in, the recommended course of therapy. The discussion included a complete verbal, and/or written explanation of the examination results, any x-rays taken, the proposed diagnosis, and outline of the treatment plan. A schedule for future care needs was also explained. The patient verbalized an understanding of the instructions at this time and agreed to be an active participant in their treatment. If the patient should think of any questions or concerns after the visit, I have encouraged the patient to call the office.?Digital Surgery:?Digital surgery was discussed with the patient, We elected to try conservative treatment at the present time, due to the patients medical history and increased asssociated post-operative risks.?Digital Treatment:?HT- I explained to the patient the possible etiologies of Hammertoes, including genetics/foot type/shoegear/activity level/exercise routine and the risks/benefits of all the different treatment options for their pain including: No treatment at all, Rest, Ice, New/supportive/wider/deeper Shoegear, Digital Padding/Strapping/Taping/Bracing/Gel protective sleeves, Foot/Ankle AFO Bracing, Stretching exercises, Deep Tissue Massage, Arch support/shoe inserts with splay metatarsal padding, and Custom orthoses. I insisted that any digital devices be removed daily and not worn overnight for safety. The patient is to carefully examine the toes daily for any skin irritation while using any splinting or padding device. The advantages and disadvantages of each option were discussed and the patients questions re: shoegear, padding, custom vs prefabricated inserts, activity level, and consistency in home treatment regimens for optimal success were answered to their verbally confirmed satisfaction.?Shoe Gear Counseling:?SHOE Rx - The patient was counseled in great detail on their muscoloskeletal foot and toe deformities which coincided with the dermatological presentations visualized on exam. We discussed how their deformities put the integrity of their feet at risk for potential pedal complications which makes the accomidative diabetic shoes and cutomizable inserts medically necessary. We discussed the different shoe and insert treatment types and options, as well as the important advantages for adhering to regularly wearing these accomidative devices daily. The patient was made aware of the fact that a failure to abide by these recommedations may be deleterious to their foot health as they are able to prevent many pedal complications such as skin irritation, skin ulceration, infection, and even loss of toe/foot/leg/or life. Time was also spent with the patient dispensing and discussing proper diabetic footcare techniques including daily skin moisturization, daily foot inspection for any interruption in skin integrity including open lesions, or sign of infection such as redness/malodor/drainage/swelling. Also discussed and recommended were procedures regarding daily shoe inspection for the presence of internal foreign bodies as well as any visualized irregular shoe or insert wear. Patient questions re: shoes, inserts, and self foot inspections were answered to their satisfaction as the patient verbally confirmed a full understanding of the above information. A Rx for Extra Depth Orthopedic Shoes with 3 pair of custom heat-molded inserts was dispensed.? ??Screening/Special Tests:?Fall Risk?Screening:?No falls in the past year ?FALLS: Screening for Future Fall Risk?Have you had any falls with injury in the past year??No * Follow Up:?3 Months * Images: * Sign off status: Completed true * Provider:?Brittany Montiel DPM Date:? Generated for Jeannie grady/Kevin/Cony on:?08/08/2024 02:39 PM EDT History and Physical Notes * HPI (History of Present Illness) Category Sub-Category Detail Notes Category Not es Toe pain Location: B/L feet Duration: several years Course: worse Aggravated by: shoes, any pressure Treatments: change in shoes At Risk footcare Pt States Last PCP Visit: Date: Examination Category Sub-Category Detail Notes Category Not es Neurological SENSORY: , (DM/Neuro) Rylee rological exam demonstrates reduced sharp/dull pin prick discrimination reduced light touch sensation reduced vibration sensation reduced proprioception sensation in a stocking fashion 5.07 monofilament test performed at plantar aspects of 5 varied sites per foot shows sensation plantar aspects absent at Forefoot B/L Dermatologic SKIN FINDINGS: Skin exam reveal s Keratotic lesion(s) located at , SUB MTH (s), 1, B/L Orthopedic FOOTWEAR EVALUATION: worn, non-s upportive, shoe gear properties exacerbate patient's foot/toe deformity DIGITAL DEFORMITIES: Digital contracture , PIPJ, 2-5 B/L, incompl-reducible to push-up test, no over, nor underlapping, there is evidence of shoe producing skin irritation MUSCLE STRENGTH: 5/5 all groups in a symmetrical fashion, B/L General Examination GENERAL APPEARANCE: Reveals a pleasant, alert, well nourished, well-developed, well hydrated individual, who demonstrates proper attention to hygiene/body habitus, and is in no acute distress, Pt serves as own historian for office visit today FOOT EXAM: Lower Extremity Neurological Exa m performed:: Yes Date Visual exam of foot performed:: Yes Date: 07/18/2024 ORIENTED: person, place, and t mounika Footwear Evaluation Footwear Evaluation performe d:: Yes Ophthalmology Referral DIABETES EYE EXAM Procedure Perform ed:: Yes ?Date of Exam Performed: 10/29/2023 Diabetic Retinopathy Screening:: Yes Findings of Diabetic Eye Exam:: no retin opathy Vascular DP PULSES (B): 1/4, B/L PT PULSES (B): 1/4, B/L CAPILLARY FILL TIME: 3 secs. per digit, b/l TEMPERTURE GRADIENT (C): warm to cool, p roximal to distal TROPHIC CONDITION-TEXTURE/ELASTICITY/TURGOR/HAIR GROWTH (B): decreased, fragile, thin, shiny skin, wi th sparse to absent hair growth EDEMA (C): 2/4, B/L, Ankle(s), Leg(s) TELANGECTASIA: absent VARICOSITIES: absent PIGMENTATION: , pale, B/L Nails NAILS are: Elongated, overg rown, dystrophic, lytic, greater than 3mm thick, discolored and friable with crumbly malodorous subungual debris with dull to no pain on palpation due to neuropathy, TA, T1, T2, T3, T4, T5, T6, T7, T8, T9
--- OUTSIDE RECORDS SUMMARY | 2024-08-08 14:40 | XMS_ITS | Clinical Summary ---
Author Organization [facility] Facility Address [address] [address] Care Team Providers Care Neuroscientist Name Role Phone Omid Jimenes MD Primary Care Provider Allergies Active Allergy Reactions Criticality Noted Date Comments Atorvastatin Other (see comments) 10/30/2018 Cramps Bacitracin Other (see comments),Swelling 06/15/2017 Cephalexin 06/07/2020 Thinks it may have made rash worse Charentais Melon (Prydeinig Melon) Rash Low 11/01/2018 Erythromycin Other (see [...] tablet Take 80 mg by mouth daily 01/12/20 19 Active Tiotropium [place] Monohydrate (Spiriva Respimat) 1.25 MCG/ACT aerosol solution Inhale 1 Inhaler daily Active SITagliptin (JANUVIA) 100 MG tablet Take 1 tablet by mouth 1 (one) time each day Active prochlorperazin e (COMPAZINE) 5 MG tablet Take 5 mg by mouth every 6 (six) hours if needed 12/28/19 19 Active potassium chloride (KLOR-CON M10) 10 MEQ CR tablet Take 20 mEq by mouth twice a day Active omeprazole (PriLOSEC) [address] capsule Take 20 mg by mouth daily Active mometasone-form oterol (Dulera) 100-5 MCG/ACT inhaler Active levothyroxine (SYNTHROID, LEVOTHROID) 75 MCG tablet Take 1 tablet by mouth 1 (one) time each day Active insulin glargine (LANTUS) 100 UNIT/ML injection Inject 60 Units under the skin twice a day 70-110 units depends 11/09/19 19 Active HYDROcodone-marisel taminophen (NORCO) 7.5-325 MG per tablet Take 1 tablet by mouth 3 (three) times a day 05/04/19 21 Active gabapentin (NEURONTIN) 400 MG capsule Take 1 capsule by mouth 1 (one) time each day Active furosemide (LASIX) 40 MG tablet Take 40 mg by mouth 2 (two) times a day 12/28/19 19 Active fluticasone HFA (Flovent HFA) 220 MCG/ACT inhaler Active cholecalciferol (VITAMIN D-3) 25 MCG (1000 UT) tablet Take 1 tablet by mouth Active allopurinol (ZYLOPRIM) 100 MG tablet Take 200 mg by mouth daily 04/08/20 19 Active amoxicillin (AMOXIL) 500 MG capsule Take [...] by mouth 2 (two) times a day 02/17/20 21 Active Dapagliflozin Propanediol (Farxiga) 10 MG tablet Take 10 mg by mouth 1 (one) time each day 90 tablet 2 01/27/20 22 Active Dulaglutide (Trulicity) 3 MG/0.5ML solution pen-injector Inject under the skin Active calcitriol (ROCALTROL) 0.25 MCG capsule TAKE ONE CAPSULE BY MOUTH EVERY OTHER DAY 15 capsule 2 07/26/19 25 Active calcitriol (ROCALTROL) 0.25 MCG capsule TAKE ONE CAPSULE BY MOUTH EVERY OTHER DAY 15 capsule 2 05/01/19 25 025 Discontinued Active Problems Problem Noted Date Diagnosed Date [...] efforts. Chronic kidney disease, stage 2 (mild) Abnormal renal function 03/04/2021 Constipation 03/04/2021 Overview [...] and able she would consider consultation in [place] right now she feels that the pain [...] for shortness of breath. Outpatient management with table worker packager Dr. Berrios. No current symptoms. Breathing comfortably. [...] & Plan: Patient has been residing at [place] for [facility] care for some time now. She is [...] Patient is followed by by an outside residential builder. She is been maintained on Lasix 40 [...] relief and she will contact the painter drum for consideration of a corticosteroid epidural injection. [...] 50% of this 20-minute visit was spent [id number] conversation with the patient and her present coordinating my care with out of her primary care physician as well as her orthopedic surgeon and painter drum. Last Assessment & Plan: This continues to [...] of this 29-minute visit was spent in [id number] conversation with the patient and her present [...] Medications are be left unchanged and enlarged theatre instructor on tools and utensils and be used [...] Encounters Date Type Department Care Team Description 07/25/2024 Refill [facility] [address] [place] [address] Lewis Cohen MD from Last 3 Months Immunizations Immunization Administration Dates Next Due Influenza (IM) Preservative Free 02/10/2021,09/2016,03/20/2016,01/13/2015 Moderna SARS-COV-2 12/14/2020 Pneumococcal, Unspecified 06/29/2015,02/17/2013, 04/02/2012,11/04/2008 [...] Visit [facility] [address] [place] [address] Lewis Cohen MD [address] [facility] [address] [place] [address] Health Maintenance Due Date Last Done Comments Pneumococcal Vaccine: 50+ Years (2 of 2 - PCV) 06/28/2016 06/29/2015, 02/17/2013, 04/02/2012, Additional history exists Diabetes: Hemoglobin A1C 05/28/2020 02/02/2020 Diabetes: Pedal Pulse Checked 05/28/2020 Diabetes: Sensory Foot Exam 05/28/2020 Diabetes: Visual Foot Exam 05/28/2020 Diabetes: Ophthalmology Exam 10/23/2024 10/24/2023 Influenza Vaccine (Season Ended) 2024 02/10/2021, 03/05/2017, 03/20/2016, Additional history exists Hepatitis B [...] mg/dl PVNMA 02/02/2020 us Rtama Conversion LAB [id number] LICITED RESULTS Final Result PVNMA from Last 3 Months or Most Recently Relevant to Health Maintenance Insurance Medicare [facility] Medicare [employer] Care Teams Neuroscientist Relationship Specialty Start Date End Date Omid Jimenes MD [address] [place] [address] [id number] [place], [place] PCP - General 05/10/20
== END 2024-08-08 14:56 | disposition home or self-care (01) ==
LOC: HO.HPS 14:18
PROVIDERS: PCP Internal Medicine; Visit Provider Hospitalist
DX: G47.33 Obstructive sleep apnea (adult) (pediatric) (principal); Z99.89 Dependence on other enabling machines and devices; J98.4 Other disorders of lung; J45.40 Moderate persistent asthma, uncomplicated
CPT/HCPCS: 99214; G2211

== ENCOUNTER → 2024-08-08 14:17 | Outpatient (BNVA) | payer MEDICARE, OTHER, SELFPAY | PROVIDERS: PCP Internal Medicine; Visit Provider Hospitalist | DX: J44.89 Other specified chronic obstructive pulmonary disease (principal); J98.4 Other disorders of lung; J45.40 Moderate persistent asthma, uncomplicated; G47.33 Obstructive sleep apnea (adult) (pediatric); Z99.89 Dependence on other enabling machines and devices | CPT/HCPCS: 99212 ==

== ENCOUNTER 2024-08-13 09:31 | Outpatient (AMB) | payer MEDICARE, OTHER, SELFPAY ==
--- NOTE | 2024-08-13 09:47 | MHC.OFFVIS ---
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 Allergies cephalexin [From Keflex] Allergy (Severe, Verified 08/13/24 09:52) Itching pravastatin [Pravachol] Allergy (Severe, Verified 08/13/24 09:52) cramps bacitracin Adverse Reaction (Severe, Verified 08/13/24 09:52) eye swelling dexamethasone [TobraDex] Adverse Reaction (Severe, Verified 08/13/24 09:52) redness swelling tobramycin [TobraDex] Adverse Reaction (Severe, Verified 08/13/24 09:52) redness swelling Sulfa (Sulfonamide Antibiotics) Adverse Reaction (Intermediate, Verified 08/13/24 09:52) GI upset atorvastatin [From Lipitor] Adverse Reaction (Verified 08/13/24 09:52) Unknown Beef Containing Products Adverse Reaction (Verified 08/13/24 09:52) Unknown erythromycin base Adverse Reaction (Verified 08/13/24 09:52) Unknown Penicillins [PCN] Adverse Reaction (Verified 08/13/24 09:52) Unknown sulfacetamide [From Sulfacet-R] Adverse Reaction (Verified 08/13/24 09:52) Unknown sulfur [From Sulfacet-R] Adverse Reaction (Verified 08/13/24 09:52) Unknown topiramate [From Topamax] Adverse Reaction (Verified 08/13/24 09:52) Unknown Medication List - Last Reconciled 08/13/24 by Naz Simpson LPN albuterol sulfate 90 mcg/actuation 2 puffs PO Q4H albuterol sulfate 2.5 mg (3 mL) inhalation Q4H PRN allopurinol 100 mg PO DAILY aspirin 81 mg PO DAILY atorvastatin 20 mg PO DAILY azelastine-fluticasone 137-50 mcg/spray 1 spray intranasal BID 30 days bepotastine besilate 1.5% (Bepreve) 1 drp ophthalmic (eye) DAILY PRN calcitriol mcg PO chlorhexidine gluconate 0.12% 15 mL buccal DAILY 30 days cholecalciferol (vitamin D3) (Vitamin D3) 25 mcg PO DAILY doxycycline hyclate 100 mg PO BID 10 days duloxetine 60 mg PO DAILY epinephrine 0.3 mL IM ONCE PRN ferrous sulfate (FeroSul) 325 mg PO DAILY fluticasone propionate 220 mcg/actuation 2 puffs inhalation BID furosemide (Lasix) 80 mg PO BID 30 days gabapentin 100 mg PO .AM gabapentin 400 mg PO BEDTIME hydrocodone-acetaminophen 7.5-325 mg 1 tab PO BID PRN insulin glargine units subcut levothyroxine 75 mcg PO DAILY meclizine 25 mg PO BID PRN mepolizumab 100 mg subcut Q4W nystatin 1 appl topical BID omeprazole 20 mg PO DAILY potassium chloride ER 10 mEq PO BID Saccharomyces boulardii (Florastor) 250 mg PO BID sitagliptin phosphate 100 mg PO DAILY tiotropium bromide 1.25 mcg/actuation inhalation tirzepatide (Mounjaro) 2.5 mg subcut QWEEK trazodone 50 mg PO BEDTIME PRN valsartan 40 mg PO DAILY HPI HPI Pill count form: Details: History of Present Illness The patient is an 79-year-old female presenting for a pill count and follow-up related to chronic pain management. The patient reports stable chronic pain affecting her back, buttocks, and shoulders, with no significant change in intensity since the last visit. The pain has been a consistent burden, affecting her daily comfort and functionality. She discussed receiving the MMR vaccine upon the recommendation of her family doctor, alongside skepticism about newer vaccines due to commercial influences. The patient's medication for pain has been managed properly, with the last refill done on August 04 and current preparation for another refill on September 02, ensuring continued management of her chronic pain. Pain Description - Onset: Chronic, long-standing - Quality and Character: Persistent pain - Primary Location: Back, buttocks, and shoulders - Exacerbating Factors: Activity, prolonged periods - Relieving Factors: Medication - Interference: Daily activities and comfort Physical Exam - Appears afebrile. - Alert and oriented. - Mood and affect appropriate. - Follows and participates in conversation appropriately. - Respiratory effort is unlabored. - Able to transition from sit to stand using a cane. Pain Management - Affect: Pain affecting comfort and daily activities - Analgesia: Hydrocodone (Vicodin) refilled on a monthly basis, maintaining current pain levels - Adverse Effects: None reported from medication - Activities of Daily Living: Pain impacts daily comfort and functionality, patient strives to manage effectively - Aberrant Drug-Related Behaviors: None observed, patient adheres to prescribed medication regimen [facility], [facility] Medical History (Updated 04/18/24 @ 05:36 by Sae Hurst) COPD (chronic obstructive pulmonary disease) Morbid obesity Acute systolic congestive heart failure Osteoporosis Dyspnea Chronic pain syndrome Gouty arthritis Arthritis of both glenohumeral joints Neurogenic claudication due to lumbar spinal stenosis Asthma CLEVE on CPAP Chronic restrictive lung disease Tracheitis Dyspnea Surgical History Status post cervical spinal fusion History of eyelid surgery History of knee replacement History of cholecystectomy Family History Father HTN (hypertension) Stroke Diabetes Mother Atrial fibrillation HTN (hypertension) Social History Alcohol intake: never Patient Tobacco Use Status: Former Tobacco user Tobacco use type: Cigarette Years Smoked: 20 years Second Hand Smoke Exposure: No Physical Exam Vital Signs: Last Vital Signs Pulse 93 08/13/24 09:48 Resp 16 08/13/24 09:48 BP 128/88 08/13/24 09:48 Pulse Ox 92 08/13/24 09:48 Oxygen Delivery Method Room Air 08/13/24 09:48 BMI result Body Mass Index 44.8 Assessment & Plan Assessment & Plan (1) Intractable back pain: Code(s): M54.9 - Dorsalgia, unspecified Category: Medical (2) Lumbar stenosis with neurogenic claudication: Code(s): M48.062 - Spinal stenosis, lumbar region with neurogenic claudication Category: Medical (3) Cervical radiculopathy: Code(s): M54.12 - Radiculopathy, cervical region Category: Medical (4) Greater trochanteric bursitis of both hips: Code(s): M70.61 - Trochanteric bursitis, right hip; M70.62 - Trochanteric bursitis, left hip Category: Medical (5) Lumbar spondylosis: Code(s): M47.816 - Spondylosis without myelopathy or radiculopathy, lumbar region Category: Medical (6) Chronic pain syndrome: Comment: Requiring narcotic use Code(s): G89.4 - Chronic pain syndrome Category: Medical Plan Plan The patient's chronic pain management will be continued with her current Hydrocodone Vicodin) prescription, ensuring effective control of her pain levels. Her medication refill aligns with her usage schedule, with the next refill due on September 02. She will be monitored for response and potential adjustment of her treatment to optimize pain relief. No further interventions are required for the recent MMR vaccination, and her views are taken into account for future reference. Patient was informed and verbally consented to the use of an ambient scribe for clinic note documentation during this visit. Discussion Notes During the visit, I discussed with the patient the continuation of her chronic pain management regimen, keeping her medications constant and monitoring her response to ensure adequate pain control. We acknowledged her concerns and skepticism about newer vaccines due to commercial pressures, yet appreciated her compliance with established vaccine schedules. The patient is aware of the upcoming medication refill date and is prepared to continue with her regimen. We reviewed the potential for ergonomic adjustments and lifestyle considerations to mitigate exacerbations of her chronic pain and improve functionality. Patient Instructions - Continue taking prescribed Hydrocodone (Vicodin) as instructed. - Monitor pain levels and report any significant changes. - Be prepared for next medication refill on September 02. - Consider lifestyle adjustments to reduce pain exacerbation. - Seek medical attention if experiencing new or worsening pain symptoms. - Acknowledge recent MMR vaccination status, no follow-up needed. Medications: Refilled hydrocodone-acetaminophen 7.5-325 mg Partial Fill upon patient request. 1 tab PO BID PRN 60 tabs 0RF pain Coding Level of Care Code Est Pt Level 3 (64987) Diagnoses Intractable back pain M54.9 Lumbar stenosis with neurogenic claudication M48.062 Cervical radiculopathy M54.12 Greater trochanteric bursitis of both hips M70.61; M70.62 Lumbar spondylosis M47.816 Chronic pain syndrome G89.4
[2024-08-13 09:48] VITALS: BP 128/88; PULSE 93; RESP 16; O2SAT 92; BMI 44.8
--- OUTSIDE RECORDS SUMMARY | 2024-08-13 10:33 | XMS_ITS | Patient Health Record ---
Author Organization [facility] Address [address] [place] [address] Care Team Providers Care Senior Sql Server Database Developer Name Role Phone Omid Jimenes MD Primary Care Provider Sushila Campos Unavailable [phone] Alexis Martinez Unavailable [phone] Brittany Montiel Unavailable [phone] Allergies Allergen (clinical drug ingredient) Drug/Non Drug [...] (HH) 6.8 HEMOGLOBIN A1C (GLYCOHEMOGLO BIN) Reviewed date:03/06/2024 03:03:22 PM Interpretation: Performing Lab: Notes/Report: TOTAL HEMOGLOBIN (HGBA1C) 5.9 HEMOGLOBIN A1C (GLYCOHEMOGLO BIN) Reviewed date:05/22/2024 02:12:52 PM Interpretation: Performing Lab: Notes/Report: HEMOGLOBIN A1C % (HH) 5.9 HEMOGLOBIN A1C (GLYCOHEMOGLO BIN) Reviewed date:05/27/2024 08:37:35 AM Interpretation: Performing Lab: Notes/Report: HEMOGLOBIN A1C % (HH) 5.9 HEMOGLOBIN A1C (GLYCOHEMOGLO BIN) Reviewed date:07/18/2024 01:45:06 PM Interpretation: Performing Lab: Notes/Report: HEMOGLOBIN A1C % () 6.0 Reason For Referral No Information Medications Medication [...] for 1 year Dx: 10/06/2015 Not-Taking Ergocalciferol 50538 UNIT 1 capsule Oral ly for 30 [...] Status Risk Notes Problem Acquired hallux valgus (89415508) Hallux valgus (acquired), left foot (M20.12) Active confirmed Problem Polyneuropathy due to diabetes mellitus type I (798713196) Type 1 diabetes mellitus with diabetic polyneuropathy (E10.42) Active confirmed Problem Polyneuropathy due to type 2 diabetes mellitus (596599374) Type 2 diabetes mellitus with diabetic polyneuropathy (E11.42) Active confirmed Problem Acquired hallux valgus (23506131) Hallux valgus (acquired), right foot (M20.11) Active confirmed Problem Acquired hammer toe of right foot (5529670673057960 ) Other hammer toe(s) (acquired), right foot (M20.41) Active confirmed Problem Acquired hammer toe of left foot (6462736678484199 ) Other hammer toe(s) (acquired), left foot (M20.42) Active confirmed Problem Polyneuropathy due to diabetes mellitus type I (461886822) Type 1 diabetes mellitus with diabetic polyneuropathy (E10.42) Active confirmed Vital Signs Blood pressure diastolic 62 mm Hg 07/18/2024 Height 5 ft 3 in in 07/18/2024 Blood pressure systolic 130 mm Hg 07/18/2024 Weight 257 lbs 07/18/2024 BMI 45.52 kg/m2 07/18/2024 Procedures Procedure Date Ordered Date Performed Result Body Sit e 52426-YORNSSW NAIL, 6 OR MORE 03/06/2024 N/A 81999-ZTZM SKIN LESIONS, 2 TO 4 03/06/2024 N/A 79369-BBKPCKZ NAIL, 6 OR MORE 05/12/2024 N/A 62106-YJZF SKIN LESIONS, 2 TO 4 05/12/2024 N/A Encounters Encounter Location Date Provider Diagnosis [address] [address] 10/08/2023 Alexis Martinez Type 1 diabetes mellitus [...] M76.61 and Achilles tendinitis, left leg M76.[address] [address] 12/27/2023 Alexis Martinez Type 1 diabetes mellitus [...] M76.61 and Achilles tendinitis, left leg M76.[address] [address] 03/06/2024 Sushila Heredia Type 1 diabetes mellitus with diabetic polyneuropathy E10.42 and Tinea unguium B35.[address] [address] 05/12/2024 Sushila Heredia Type 2 diabetes mellitus with diabetic polyneuropathy E11.42 and Tinea unguium B35.[address] [address] 07/18/2024 Brittany Montiel Type 2 diabetes mellitus with diabetic polyneuropathy E11.42 ; Other hammer toe(s) (acquired), right foot M20.41 ; Tinea unguium B35.1 ; Other hammer toe(s) (acquired), left foot M20.42 and Pre-ulcerative calluses L84 [address] [address] 12/10/2023 Alexis Martinez Assessments Encounter Date Diagnosis [...] X ray : Foot, right 3V 04/10/2022 79085-GNCZYOF NAIL, 6 OR MORE 03/06/2024 24945-ZZVTKJO NAIL, 6 OR MORE 05/12/2024 82149-ZOYSKME NAIL, 6 OR MORE 10/04/2016 06130-JBMQFYY NAIL, 6 OR MORE 04/04/2017 12520-DJLDRVR NAIL, 6 OR MORE 10/03/2017 66206-DEPJVBV NAIL, 6 OR MORE 04/08/2018 61493-VGOORTJ NAIL, 6 OR MORE 04/03/2013 47117-AOBZSFT NAIL, 6 OR MORE 07/10/2013 48644-BRXCWRZ NAIL, 6 OR MORE 10/16/2013 44116-RZWIUQS NAIL, 6 OR MORE 01/21/2014 40566-UULYTOH NAIL, 6 OR MORE 06/04/2014 04851-XQCXJMP NAIL, 6 OR MORE 10/05/2014 11590-QMTZYYQ NAIL, 6 OR MORE 01/06/2015 01836-OEIFYZJ NAIL, 6 OR MORE 04/07/2015 35604-SCVNBGH NAIL, 6 OR MORE 10/06/2015 59491-TKKYDFZ NAIL, 6 OR MORE 04/05/2016 38484-DZIJUPE NAIL, 1-5 10/30/2012 17706-KMKHQTW NAIL, 1-5 01/16/2013 27003-BKADUSJ NAIL, 1-5 09/05/2012 88558-LHZYHUR NAIL, 1-5 07/18/2012 03580-DMAGJYM NAIL, 1-5 07/31/2012 42954-Dkwuwkrw Plate 07/31/2012 83804-Jzvvuhaw Plate 09/05/2012 79315-Bnowfnxr Plate 07/18/2012 83625-Wvngsaqo Plate 10/03/2017 99185-Mfquhbso Plate 10/16/2013 52270-Enrkgpwu Plate 04/04/2017 20265-LHRM SKIN LESIONS, OVER 4 07/19/19 13 92887-KHAZ SKIN LESIONS, OVER 4 09/06/19 13 92196-PMHN SKIN LESIONS, OVER 4 08/01/19 13 95105-PIQR SKIN LESIONS, OVER 4 07/11/19 14 72390-AVKL SKIN LESIONS, OVER 4 01/17/20 13 93123-JACQ SKIN LESIONS, OVER 4 04/03/20 13 74743-DKBM SKIN LESIONS, OVER 4 04/05/20 16 51068-LYUM SKIN LESIONS, OVER 4 10/05/19 17 40658-ZHHN SKIN LESIONS, OVER 4 10/06/19 16 99707-PMRI SKIN LESIONS, OVER 4 04/07/20 15 26729-VEDZ SKIN LESIONS, OVER 4 01/07/20 15 55743-PQLB SKIN LESIONS, OVER 4 10/06/19 15 06615-MGDY SKIN LESIONS, OVER 4 06/04/19 15 74629-JNNN SKIN LESIONS, OVER 4 01/22/20 14 48841-AWBO SKIN LESIONS, OVER 4 10/17/19 14 71128-OXFO SKIN LESIONS, 2 TO 4 04/04/20 17 99161-ZKNW SKIN LESIONS, 2 TO 4 10/04/19 18 38300-KGDY SKIN LESIONS, 2 TO 4 10/08/19 19 36668-XFZV SKIN LESIONS, 2 TO 4 01/28/20 19 47630-TSQH SKIN LESIONS, 2 TO 4 04/09/20 19 02206-ENHR SKIN LESIONS, 2 TO 4 06/12/19 20 21215-MGJH SKIN LESIONS, 2 TO 4 10/13/19 20 40820-YIAW SKIN LESIONS, 2 TO 4 12/15/19 20 11320-DFOE SKIN LESIONS, 2 TO 4 02/16/20 20 45756-BTRH SKIN LESIONS, 2 TO 4 05/13/19 21 57584-DARZ SKIN LESIONS, 2 TO 4 08/12/19 21 04943-CCDK SKIN LESIONS, 2 TO 4 10/19/19 21 53290-UUSO SKIN LESIONS, 2 TO 4 12/23/19 21 76681-BWLT SKIN LESIONS, 2 TO 4 02/24/20 21 70142-ZPZS SKIN LESIONS, 2 TO 4 05/09/19 22 62782-XIGV SKIN LESIONS, 2 TO 4 07/15/19 22 42179-MGVM SKIN LESIONS, 2 TO 4 05/12/19 25 06423-ZSFH SKIN LESIONS, 2 TO 4 03/06/20 24 21537-OLFN SKIN LESIONS, 2 TO 4 04/08/20 18 74445-PYZW NAIL(S) 01/16/2013 38307-NGDV NAIL(S) 10/30/2012 Next Appt Details Provider Name:Sushila Garcia sameera, 09/24/2024 02:30:00 PM, [address] [place], [address], Insurance Providers Payer Name Payer Address Payer Phone Subscriber Number Group Number Insured Name Patient Relationship to Insured Coverage Start Date Coverage End Date Medicare National [employer] [address] [place] [address] [phone] [id number] Vy Fishman Self - patient is the insured [employer] [facility] [address] [place] [address] [id number] Vy Fishman Self - patient is the insured for Life [address] [place] [address] [id number] LouloukassyVy Self - patient is the insured [...]
--- OUTSIDE RECORDS SUMMARY | 2024-08-13 10:33 | XMS_ITS | Patient Health Record ---
Author Organization Omid Jimenes MD Address [address] [place] [phone] Care Team Providers Care Machine Clerical Verifier Name Role Phone Omid Jimenes Primary Care Provider [phone] Allergies Allergen (clinical drug ingredient) Drug/Non Drug [...] Panel Reviewed date:08/20/2023 12:45:36 PM Interpretation: Performing Lab:[facility], [address] [place] [phone] Notes/Report: Bilirubin Total 0.4 0.0-1.0 mg/dL Bilirubin Direct 0.2 0.0-0.5 mg/dL Aspartate Amino Transferase 29 5-31 U/L Alanine Aminotransferase 20 0-31 U/L Total Protein 7.6 6.5-8.0 g/dL Albumin Level 3.8 3.5-5.0 g/dL Alkaline Phosphatase 76 39-117 U/L Glucose Fasting Reviewed date:08/20/2023 12:38:19 PM Interpretation: Performing Lab:[facility], [address] [place] [phone] Notes/Report: Glucose Fasting 146 60-99 mg/dL A fasting glucose of 126 mg/dl or greater on more than one occasion is considered diagnostic of diabetes. Lipid Panel with Reflex Reviewed date:08/20/2023 12:53:15 PM Interpretation: Performing Lab:[facility], [address] [place] [phone] Notes/Report: Triglycerides 151 <150 mg/dL Desirable Triglyceride: [...] A1c Reviewed date:08/20/2023 12:37:43 PM Interpretation: Performing Lab:[facility], [address] [place] [phone] Notes/Report: Hemoglobin A1c % 6.8 <6.0 % [...] average glucose, using the formula of the L0S-Ogfwhht Average Glucose study (ADAG), Diabetes Care, Vol.31,#8, Nov. 2007 Glucose, finger stick Reviewed date:11/26/2023 01:53:20 PM Interpretation: Performing Lab: Notes/Report: Value 183 Glucose, finger stick Reviewed date:12/18/2023 11:23:09 AM Interpretation: Performing Lab: Notes/Report: Value 190 Complete Blood Count Auto Di ff Reviewed date:02/19/2024 08:34:52 PM Interpretation: Performing Lab:[facility], [address] [place] [phone] Notes/Report: White Blood Count 10.3 4.8-10.8 X10*3/uL [...] NRBC Abs Auto 0.000 0.0-0.012 X10*3/uL Comprehensive [place]. Panel Fa st Reviewed date:02/19/2024 08:44:28 PM Interpretation: Performing Lab:[address] [phone] Notes/Report: Sodium 141 135-145 mmol/L Potassium 4.4 3.3-5.1 mmol/L Chloride 102 96-108 mmol/L Carbon Dioxide 27 22-29 mmol/L Anion Gap 16 12-20 Blood Urea Nitrogen 28 9-16 mg/dL Creatinine 1.40 0.5-1.4 mg/dL Estimated Glomerular Filt Rate 36 NOTE: For -Panamanian individuals, multiply the result by 1.210. Chronic [...] PROFILE Reviewed date:02/19/2024 08:33:19 PM Interpretation: Performing Lab:[facility], [address] [place] [phone] Notes/Report: Iron 84 30-160 mcg/dL Total Iron Binding Capacity 256 228-428 mcg/dL Percent Iron Saturation 33 15-50 % Unsaturated Iron Binding 172 Lipid Panel Reviewed date:02/19/2024 08:24:06 PM Interpretation: Performing Lab:[facility], [address] [place] [phone] Notes/Report: Triglycerides 134 <150 mg/dL Desirable Triglyceride: [...] Total Reviewed date:02/19/2024 08:32:16 PM Interpretation: Performing Lab:[facility], [address] [place] [phone] Notes/Report: Vitamin D 25-OH Total 37.7 >30 [...] T4 Reviewed date:02/19/2024 08:33:11 PM Interpretation: Performing Lab:[facility], [address] [place] [phone] Notes/Report: TSH reflex Free T4 3.76 0.32-4.0 uIU/mL Microalbumin, Random Reviewed date:02/19/2024 08:24:16 PM Interpretation: Performing Lab:[facility], [address] [place] [phone] Notes/Report: Creatinine Urine 88.42 Microalbumin Urine 32.0 Microalbum/Creatinine Ratio Ur 36.1 <30 ug/mg cr Albumin/Creatinine Ratio Reference Ranges: Normal: < 30 ug/mg creatinine Microalbuminuria: 30 - 300 ug/mg creatinine Clinical Albuminuria: > 300 ug/mg creatinine Hemoglobin A1c Reviewed date:02/19/2024 08:36:41 PM Interpretation: Performing Lab:[facility], [address] [place] [phone] Notes/Report: Hemoglobin A1c % 5.9 <6.0 % [...] average glucose, using the formula of the W0Z-Iflrdxx Average Glucose study (ADAG), Diabetes Care, Vol.31,#8, Nov. 2007 UA ClnCatch+Micro w/rflx Cul t Reviewed date:02/19/2024 08:35:51 PM Interpretation: Performing Lab:[facility], [address] [place] [phone] Notes/Report: Urine, Clean Catch Color Urine Yellow Appearance Urine Clear PH 7.0 5.0-9.0 Glucose Urine UA Negative Negative mg/dL Urine Blood Negative Negative Specific [place] - Urine 1.010 1.005-1.025 Urine Protein Negative Neg-Trace mg/dL Urine Ketones Negative Negative mg/dL Nitrite Urine Negative Negative Leukocyte Esterase Urine Small (1+) Negative RBC Urine 0-2 0-2 /HPF WBC Urine 6-10 0-5 /HPF Squamous Epithelial Cell Urine 11-20 0-2 /HPF Bacteria Urine 1+ None Seen Hyaline Casts Urine 6-10 0-2 /LPF Nini Melendez Reviewed date:08/20/2023 12:43:59 PM Interpretation: Performing Lab:[facility], [address] [place] [phone] Notes/Report: Nini Melendez See Note Specimen held untested for 24 hours; Call to request Chemistry testing. Nini Melendez Reviewed date:02/19/2024 05:44:22 PM Interpretation: Performing Lab:[facility], [address] [place] [phone] Notes/Report: Hold Gold See Note Specimen held untested for 24 hours; Call to request Chemistry testing. Urine Culture Reviewed date:02/20/2024 05:04:39 PM Interpretation: Performing Lab:[facility], [address] [place] [phone] Notes/Report: Urine Culture Report Result Urine Culture 50,000 to 100,000 cfu/ml Urine Culture Mixed bacterial newton a characteristic of Urine Culture urogenital contamination. XR DEXA axial skeleton Reviewed date:02/29/2024 05:11:35 PM Interpretation: Performing Lab: Notes/Report: [facility] [address] [place] [address] Mammography Report Signed Patient: Vy Fishman MR#: [id number] 121 : 1945 Acct:[id number] Age/Sex: 78 / F ADM Date: 02/28/24 Loc: HO.MAMMO Attending Dr: Omid Jimenes MD Ordering Physician: Omid Jimenes MD Results: Date of Service: 02/28/24 Follow Up: Procedure(s): XR DEXA axial skeleton Accession Number(s): [id number] cc: Omid Jimenes MD EXAMINATION: BONE DENSITOMETRY CLINICAL INDICATION: Age-related osteoporosis without current pathological fracture. COMPARISON: This is the patient's baseline examination. TECHNIQUE: Using a [employer] DXA System (software version: 13.1) manufactured by [employer], dual-energy x-ray absorptiometry was performed of the [...] 02/29/24 1219 DD/ 1300 TD/TT: 02/28/24 1320 Hot Dip Plating Supervisor: NATALIE [place] [facility]'s [address] [place] [address] Mammography Report Signed Patient: Vy Fishman MR#: [id number] 121 : 1945 Acct:[id number] Age/Sex: 78 / F ADM Date: 02/28/24 Loc: HO.MAMMO Attending Dr: Omid Jimenes MD Ordering Physician: Omid Jimenes MD Results: Date of Service: 02/28/24 Follow Up: Procedure(s): XR DEX A axial skeleton Accession Number(s): [id number] cc: Omid Jimenes MD EXAMINATION: BONE DENSITOMETRY CLINICAL INDICATION: Age-related osteoporosis without current pathological fracture. COMPARISON: This is the patient' s baseline examination. TECHNIQUE: Using a [employer] DXA System (software version: 13.1) manufactured by [employer], dual-energy x-ray absorptiometry was performed of the [...] 02/29/24 1219 DD/ 1300 TD/TT: 02/28/24 1320 Hot Dip Plating Supervisor: NATALIE EDWARDS tomosynthesis screening B I Reviewed date:05/25/2024 05:17:35 PM Interpretation: Performing Lab: Notes/Report: [facility] [address] [place] [address] [place] [address] Mammography Report Signed Patient: Vy Fishman MR#: [id number] 121 : 1945 Acct:[id number] Age/Sex: 78 / F ADM Date: 05/14/24 Loc: HO.MAMMO Attending Dr: Omid Jimenes MD Ordering Physician: Omid Jimenes MD Results: 2Be nigdimitry Findings Date of Service: 05/14/24 Follow Up: 1 Year From Orig inal Mammogram Procedure(s): MM tomosynthesis screening BI Accession Number(s): [id number] cc: Omid Jimenes MD EXAMINATION: MM SCREENING [...] Dahlia Green DO 05/25/2024 10:39 AM [facility] [place] [place] Dictated By: Dahlia Green DO Signed By: <Electronically signed by Dahlia Green DO in OV> 05/25/24 1039 DD/ 1445 TD/TT: 05/14/24 1520 Hot Dip Plating Supervisor: [facility] [address] [place] [address] [place] [address] Mammography Report Signed Patient: Vy Fishman MR#: [id number] 121 : 1945 Acct:[id number] Age/Sex: 78 / F ADM Date: 05/14/24 Loc: AGATHA Attending Dr: Omid Jimenes MD Ordering Physician: Omid Jimenes MD Results: 2Be nigdimitry Findings Date of Service: 05/14/24 Follow Up: 1 Year From Orig inal Mammogram Procedure(s): MM tomosynthesis screening BI Accession Number(s): [id number] cc: Omid Jimenes MD EXAMINATION: MM SCREENING [...] 05/25/24 1039 DD/ 1445 TD/TT: 05/14/24 1520 Hot Dip Plating Supervisor: Reason For Referral Reason osteopenia of hip [...] day for 7 days 11/30/2023 Active Nystop 729770 UNIT/GM APPLY ONE APPLICAT ION EXTERNALLY TWO [...] Problem Status W/U Status Risk Notes Problem 11057888 Hemoptysis (R04.2) Active confirmed Problem 10181124 Vitamin D defici ency (E55.9) Active confirmed Problem 21186155 Hypercalcemia (E83.52) Active confirme d Problem 625094000 Other specified menopausal and perimenopausal disorders (N95.8) Active confirmed Problem 016046634 Body mass index (BMI) 45.0-49.9, adult (Z68.42) Active confirmed Problem 7751576 Arthritis (M19.90) Active confirmed Problem 7802879 Diastolic dysfun ction (I51.9) Active confirmed Problem 209543309 Tubular adenoma of colon (D12.6) Active confirmed Problem 89921031 Essential hypert ension (I10) Active confirmed Problem 813222534 Acquired hypothyroidism (E03.9) Active confirmed Problem 471757966 Mild intermitten t asthma without complication (J45.20) Active confirmed Problem 27241222 Type 2 diabetes mellitus without complication (E11.9) Active confirmed Problem 8040644 Aortic valve dis order (I35.9) Active confirmed Problem 643941757 Morbid obesity d ue to excess calories (E66.01) Active confirmed Problem 75864257 Chronic obstruct manolo pulmonary disease, unspecified COPD type (J44.9) Active confirmed Problem 221224912 History of hemat uria (Z87.448) Active confirmed Problem 482987188 Acute systolic congestive heart failure (I50.21) Active confirmed Problem 845662596743165 Moderate persist ent asthma with acute exacerbation (J45.41) Active confirmed Problem 029716460 Iron deficiency anemia due to chronic blood loss (D50.0) Active confirmed Problem 169599795 GERD (gastroesop hageal reflux disease) (K21.9) Active confirmed Problem 47301251 Aortic valve terrence nosis, unspecified etiology (I35.0) Active confirmed Problem 50420264 Liver cyst (K76.89) Active confirmed Problem 794445355 Pure hypercholesterolemia (E78.00) Active confirmed Problem 258157473 OAB (overactive bladder) (N32.81) Active confirmed Problem 62023731 CLEVE (obstructive sleep apnea) (G47.33) Active confirmed Problem 785354856 Hand arthritis (M19.049) Active confirmed Problem 465039134 Arthritis pain o f hand (M19.049) Active confirmed Problem 867457621 Arthritis pain o f shoulder (M19.019) Active confirmed Problem History of heart valve repair with prosthesis (377269979878923) H/O aortic valve replacement (Z95.2) Active confirmed Problem 579830833 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) Active confirmed Problem 625758978 Acute constipati on (K59.00) Active confirmed Vital [...] Diagnosis Omid Jimenes MD [address] [place] [id number] 08/20/2023 Omid Jimenes Type 2 diabetes kel itus without complication E11.9 and Pure hypercholesterolemia E78.00 Omid Jimenes MD [address] [place] [id number] 08/27/2023 Omid Jimenes Type 2 diabetes kel itus without complication E11.9 ; Mild intermittent asthma without complication J45.20 and Low back pain, unspecified back pain laterality, unspecified chronicity, unspecified whether sciatica present M54.50 Omid Jimenes MD [address] [place] [address] [id number] 11/26/2023 Omid Jimenes Type 2 diabetes kel itus without complication E11.9 and Postmenopausal osteoporosis M81.0 Omid Jimenes MD [address] [place] [id number] 11/30/2023 Omid Jimenes Acute cellulitis L03 .90 Omid Jimenes MD [address] [place] [address] [id number] 12/17/2023 Omid Jimenes Acute constipation K 59.00 ; Acute cellulitis L03.90 and Type 2 diabetes mellitus without complication E11.9 Omid Jimenes MD [address] [place] [id number] 02/19/2024 Omid Jimenes Type 2 diabetes kel itus without complication E11.9 ; Acquired hypothyroidism E03.9 ; Essential hypertension I10 ; Vitamin D deficiency E55.9 and Iron deficiency anemia due to chronic blood loss D50.0 Omid Jimenes MD [address] [place] [id number] 02/29/2024 Omid Jimenes Acute systolic conge stive heart failure I50.21 ; Morbid obesity due to excess calories E66.01 and Chronic obstructive pulmonary disease, unspecified COPD type J44.9 Omid Jimenes MD [address] [place] [id number] 09/20/2023 Omid Jimenes MD [address] [place] [address] [id number] 10/30/2023 Omid Jimenes Type 2 diabetes kel itus without complication E11.9 Omid Jimenes MD [address] [place] [address] [id number] 12/10/2023 Omid Jimenes MD [address] [place] [address] [id number] 01/01/2024 Omid Jimenes MD [address] [place] [address] [id number] 02/07/2024 Omid Jimenes Type 2 diabetes kel [...] Jimenes MD [address] [place], [place] [id number] 03/06/2024 Omid Jimenes MD [address] [place], [place] [id number] 03/07/2024 Omid Jimenes Breast cancer screen ing [...] BONE DENSITY ORDER HAS BEEN FAXED TO [facility] CENTRALIZED FOR SCHEDULING 11/30/2023 Acute cellulitis (ICD-10 [...] coninuous shortness of breath/ order faxed to [facility] CS dept 02/29/2024 Morbid obesity due t [...] [address], [address], [place], [phone], Provider Name:Omid Akhtar ier, 09/29/2024 02:00:00 PM, [address], [address], [place], [phone], Provider Name:Omid Akhtar ier, 02/24/2025 07:15:00 AM, [address], [place], [phone], Provider Name:Omid Akhtar ier, 03/03/2025 02:30:00 PM, [address], [address], [place], [phone], Insurance Providers Payer Name Payer Address Payer Phone Subscriber Number Group Number Insured Name Patient Relationship to Insured Coverage Start Date Coverage End Date [employer] [address] [place] [address] [id number] Vy Fishman Self - patient is the insured [facility] [address] [place] [address] [id number] Vy Fishman Self - patient is the insured Medical (General) History Medical History History ICD Code Endoscopy and colonoscopy do ne 05/2007; both done 01/30/2014 repeat in 5 : 03/28/22 colonocopy awaiting path hematuria work up in 20's Needs yearly echo - DX Aortic Stenosis ( done 06/2015) ct abdomen 12/21 at [facility] normal
--- OUTSIDE RECORDS SUMMARY | 2024-08-13 10:34 | XMS_ITS | Clinical Summary ---
Author Organization [facility] Facility Address [address] [address] Care Team Providers Care Yard Goods Salesperson Name Role Phone Omid Jimenes MD Primary Care Provider Allergies Active Allergy Reactions Criticality Noted Date Comments Atorvastatin Other (see comments) 10/30/2018 Cramps Bacitracin Other (see comments),Swelling 06/15/2017 Cephalexin 06/07/2020 Thinks it may have made rash worse Charentais Melon (Hungarian Melon) Rash Low 11/01/2018 Erythromycin Other (see [...] by mouth daily 01/12/20 19 Active Tiotropium [place] Monohydrate (Spiriva Respimat) 1.25 MCG/ACT aerosol solution [...] and able she would consider consultation in [place] right now she feels that the pain [...] for shortness of breath. Outpatient management with grinder and honer operator automatic Dr. Berrios. No current symptoms. Breathing comfortably. [...] & Plan: Patient has been residing at [facility] care for some time now. She is [...] Patient is followed by by an outside university registrar. She is been maintained on Lasix 40 [...] long-term relief and she will contact the paintings conservator for consideration of a corticosteroid epidural injection. [...] 50% of this 20-minute visit was spent [id number] conversation with the patient and her present coordinating my care with out of her primary care physician as well as her orthopedic surgeon and paintings conservator. Last Assessment & Plan: This continues to [...] of this 29-minute visit was spent in [id number] conversation with the patient and her present [...] Medications are be left unchanged and enlarged shipyard painter apprentice on tools and utensils and be used [...] 07/25/2024 Refill [facility] [address] [place] [address] Lewis Cohen MD from Last 3 Months [...] Visit [facility] [address] [place] [address] Lewis Cohen MD [address] [facility] [address] [place] [address] Health Maintenance Due Date Last [...] on patient's age to complete this topic Pneumococcal Vaccine: Peds (0 to 5 Years) and At-Risk Patients (6 to 49 Years) Discontinued 06/29/2015, 02/17/2013, 04/02/2012, Additional history exists Procedures Procedure Name Priority Date/Time Associated Diagnosis [...] mg/dl PVNMA 02/02/2020 us Rtama Conversion LAB [id number] LICITED RESULTS Final Result PVNMA from Last 3 Months or Most Recently Relevant to Health Maintenance Insurance Medicare [facility] Medicare [facility] Care Teams Yard Goods Salesperson Relationship Specialty Start Date End Date Omid Jimenes MD [address] [place] [address] [address] [place], [place] PCP - General 05/10/20
--- OUTSIDE RECORDS SUMMARY | 2024-08-13 10:34 | XMS_ITS | Clinical Summary ---
Author Organization [facility] ity Address [address] [place] [address] Care Team Providers Care Dance Hall Hostess Name Role Phone Omid Jimenes MD Primary Care Provider Social History Tobacco Use Types Packs/Day Years [...] age to complete this topic Care Teams Dance Hall Hostess Relationship Specialty Start Date End Date Omid Jimenes MD PCP - General 12/21/10
--- OUTSIDE RECORDS SUMMARY | 2024-08-13 10:34 | XMS_ITS ---
Author Organization Omid Jimenes MD Address [address] [place] [phone] Care Team Providers Care Master Chef Name Role Phone Omid Jimenes Primary Care [...] day for 7 days 11/30/2023 Active Nystop 419134 UNIT/GM APPLY ONE APPLICAT ION EXTERNALLY TWO [...] Problem Status W/U Status Risk Notes Problem 09482530 Chronic obstructive pulmonary disease, unspecified COPD type (J44.9) Active confirmed Vital Signs Blood pressure systolic 158 mm Hg 02/29/20 24 Blood pressure diastolic 76 mm Hg 024 Height 64 in 02/29/2024 Weight 252 lbs 02/29/2024 BMI 43.25 kg/m2 02/29/2024 weight is down 8 pounds [facility] e 12-17-23 Encounters Encounter Location Date Provider Diagnosis Omid Jimenes MD [address] [place] [address] [place] [id number] 02/29/2024 Omid Jimenes Acute systolic congestive heart failure I50.21 ; Morbid obesity due to excess calories E66.01 and Chronic obstructive pulmonary disease, unspecified COPD type J44.9 Assessments Encounter Date Diagnosis (ICD Code) Assessment Notes Treatment Notes Treatment Clinical Notes Section Notes 02/29/2024 Acute systolic congestive heart failure (ICD-10 - I50.21) stable with coninuous shortness of breath/ order faxed to [facility] [place] 02/29/2024 Morbid obesity due to excess calories (ICD-10 - E66.01) has lost some weight 02/29/2024 Chronic obstructive pulmonary disease, unspecified COPD type (ICD-10 - J44.9) stable Plan Of Treatment Treatment Notes Assessment Notes Acute systolic congestive heart failure stable with coninuous shortness of breath/ order faxed to [facility] [place] Morbid obesity due to excess calories bradley s lost some weight Chronic obstructive pulmonar y disease, unspecified COPD type stable Pending Test Test Name Order Date MAMMOGRAM DIGITAL BILATERAL SCREEN 02/28 Next Appt Details Follow Up: 6 Months, Reason: Provider Name:Omid borden, 09/26/2024 07:45:00 AM, [address] [place] [address], [address], [phone], Provider Name:Omid borden, 09/29/2024 02:00:00 PM, [address] [place] [address], [address], [phone], Provider Name:Omid borden, 02/24/2025 07:15:00 AM, [address] [place] [address], [address], [phone], Provider Name:Omid borden, 03/03/2025 02:30:00 PM, [address] [place] [address], [address], [phone], Progress Notes * Vy WAITE LDOB:1945 (78 yo F)Acc No.[id number]:02/29/2024 Patient:?Vy Waite Provider:?Omid Jimenes MD :1945???Age:78 Y???Sex:Female D ate:02/29/2024 Address:[address] [place] [address] Subjective: * Chief Complaints: * ???Comp visit [...] Pets: none. no Travel outside of the [place]. * Medications:?TakingCalcitrio l 0.25 MCG Capsule [...] and allow to dissolve Orally twicea dayNystop 714970 UNIT/GM Powder APPLY ONE APPLICATION EXTERNALLY TWO [...] EYE DAILY NEEDED Ophthalmic Twice a dayTaking CareCox North Unifine Pentips Plus 31G X 6 MM [...] allow to dissolve Orally twicea dayTaking Nystop 964158 UNIT/GM Powder APPLY ONE APPLICATION EXTERNALLY TWO [...] 36.1 H <30 - ug/mg cr ???Lab:Comprehensive [place]. P iris Fast (Order Date - 02/19/2024) [...] mg/dL ?Urine Blood Negative Negative - ?Specific [place] - Urine 1.010 1.005-1.025 - ?Urine Protein [...] negative , no masses palpable.?FEMALE GENITOURINARY:?done by ob gyn.?EXTREMITIES:?no clubbing, cyanosis, or edema.?NEUROLOGIC:?nonfocal, motor strength normal upper and lower extremities, sensory exam intact.? Assessment: * Assessment: 1.?Acute systolic congestive heart failure - I50.21 (Primary)?2.?Morbid obesity due to excess calories - E66.01?3.?Chronic obstructive pulmonary disease, unspecified COPD type - J44.9? Plan: * Treatment: Notes: stable with coninuous shortness of breath/ order faxed [place] [facility] [place]??2.?Morbid obesity due to excess calories? Notes: has lost some weight??3.?Chronic obstructive pulmonary disease, unspecified COPD type? Notes: stable?? * Procedure Codes:? * Follow Up:?6 Months * * Sign off status: Completed true * Provider:?Omid Jimenes MD Date:?1 04/30/2023 Generated for Jeannie grady/Kevin/eTransmitting on:?08/13/2024 10:33 AM EDT History and Physical Notes * HPI [...] no masses palpable FEMALE GENITOURINARY: done by ob gyn ORAL CAVITY: mucosa moist
--- OUTSIDE RECORDS SUMMARY | 2024-08-13 10:34 | XMS_ITS ---
Author Organization Omid Jimenes MD Address [address] [place] [address] [phone] Support Name Relationship Address Phone Jalil Omid Caregiver [address] [facility] [address] [place] [address] [phone] Allan Elam Caregiver [address] [facility] [address] [place] [address] [phone] Chris Nunes Caregiver [address] [facility] [address] [place] [address] [phone] MARCO CAMPBELL Caregiver [address] [facility] [address] [place] [address] [phone] John Case Caregiver [address] [place] [address] [phone] CARLO HERRERA Caregiver [address] [facility] [address] [place] [address] [phone] Rupert Canchola Caregiver [address] [facility] [address] [place] [address] [phone] Kavita Diaz Caregiver [address] [facility] [address] [place] [address] [phone] Unavailable Emergency Contact Unknown Vy Waite Guarantor Unknown [phone] Care Team Providers Care Exhibition Organiser Name Role Phone Omid Jimenes Primary Care Provider REASON FOR VISIT mammogram order updated Encounters Encounter Location Date Provider Diagnosis Omid Jimenes MD [address] [place] [address] [phone] 03/07/2024 Omid Jimenes Breast cancer screening Z12.31 Assessments Encounter Date Diagnosis (ICD Code) Assessment Notes Treatment Notes Treatment Clinical Notes Section Notes 03/07/2024 Breast cancer screening (ICD-10 - Z12.31) Plan Of Treatment Pending Test Test Name Order Date MAMMOGRAM DIGITAL BILATERAL SCREEN 03/07 Next Appt Details Provider Name:Omid Akhtar ier, 09/26/2024 07:45:00 AM, [address], [address], [place], [place], [phone], Provider Name:Omid Akhtar ier, 09/29/2024 02:00:00 PM, [address] [place] [address] Drive, [address], [place], [place], [phone], Provider Name:Omid Akhtar ier, 02/24/2025 07:15:00 AM, [address] [place] [address], [address], [place], [place], [phone], Provider Name:Omid Akhtar ier, 03/03/2025 02:30:00 PM, [address] [place] [address], [address], [place], [place], [phone], Progress Notes * Vy WAITE LDOB:1945 (78 yo F)Acc No.[id number]:03/07/2024 Patient:?Vy Waite L :1945???Age:78 Y???Sex:Female Address:[address] [place] [address] Subjective: * Chief Complaints: * ???Mammogram order updated * Medical History:? * Surgical History:? * Hospitalization/Major Diagno stic Procedure:? * Medications:? Objective: Assessment: * Assessment: 1.?Breast cancer screening - Z12.31? Plan: * Treatment: * Procedure Codes:? * true * Date:? Generated for Jeannie grady/Kevin/eTransmitting on:?08/13/2024 10:33 AM EDT
--- OUTSIDE RECORDS SUMMARY | 2024-08-13 10:34 | XMS_ITS ---
Author Organization [facility] Address [address] [facility] [place] [address] Care Team Providers Care Options Advisor Name Role Phone Omid Jimenes MD Primary Care Provider Sushila Campos Unavailable [phone] Allergies Allergen (clinical drug ingredient) Drug/Non Drug [...] for 1 year Dx: 10/06/2015 Not-Taking Ergocalciferol 16977 UNIT 1 capsule Oral ly for 30 [...] Ordered Date Performed Result Body Sit e 00563-SFQRHGN NAIL, 6 OR MORE 05/12/2024 N/A 04580-SUDT SKIN LESIONS, 2 TO 4 05/12/2024 N/A Encounters Encounter Location Date Provider Diagnosis [facility] [place] [address] [place] [address] 05/12/2024 Sushila Heredia Type 2 diabetes mellitus with diabetic polyneuropathy E11.42 and Tinea unguium B35.1 Assessments Encounter Date Diagnosis (ICD Code) Assessment Notes Treatment Notes Treatment Clinical Notes Section Notes 05/12/2024 Type 2 diabetes mellitus with diabetic polyneuropathy (ICD-10 - E11.42) 05/12/2024 Tinea unguium (ICD-10 - B35.1) Plan Of Treatment Pending Test Test Name Order Date 39343-DXJARRN NAIL, 6 OR MORE 05/12/2024 08347-HSQR SKIN LESIONS, 2 TO 4 05/12/19 Next Appt Details Follow Up: 3 Months, Reason: Provider Name:Sushila brasher, 09/24/2024 02:30:00 PM, [address] [place] [address], [phone], Procedure Notes * Category Sub-Category Detail Notes [...] use of a nail nipper and/or dremel-type chisel grinder, to a more viable healthy nail [...] instrumentation by the physician of record - 64283 Progress Notes * Vy FISHMAN LDOB:1945 (78 yo F)Acc No.[id number]:05/12/2024 Progress Note Patient:?Vy FISHMAN Provider:?Sushila Heredia DPM :1945???Age:78 Y???Sex:Female D ate:05/12/2024 Address:[address] [place] [address], [facility], [id number] Pcp:Omid Jimenes MD Subjective: * Chief Complaints: [...] Discharged to rehab- 12 days-Went back to [facility] 10/2018-01/10/2019Comonae Casanova- Constipation, swelling, [...] multi-density innersoles for 1 year Dx: Ergocalciferol 26054 UNIT Capsule 1 capsule Orally Breo Ellipta [...] innersoles for 1 year Dx: Not-Taking/PRN Ergocalciferol 37139 UNIT Capsule 1 capsule Orally Not-Taking/PRN Breo [...] use of a nail nipper and/or dremel-type chisel grinder, to a more viable healthy nail [...] to maintain effectiveness in symptomatic relief - 82404.?Keratoma Treatment:?Parring or Cutting of Benign Hyperkeratotic Lesion(s)?(-56) [...] instrumentation by the physician of record - 80249.? * Procedure Codes:?78581 DEBRI DE NAIL, 6 OR MORE, Modifiers: XS 77773 TRIM SKIN LESIONS, 2 TO 4, Modifiers: XS * Follow Up:?3 Months * Images: * Sign off status: Completed true * Provider:?Sushila Heredia DPM Date:?0 05/12/2024 Generated for Jeannie grady/Kevin/eTransmitting on:?08/13/2024 10:34 AM EDT History and Physical Notes * [...]
--- OUTSIDE RECORDS SUMMARY | 2024-08-13 10:34 | XMS_ITS | Clinical Summary ---
Author Organization [facility] [place] [address] Care Team Providers Care Multi Punch Operator Name Role Phone Unavailable Primary Care Provider [...] Daily. Active azelastine-fluticas one (DYMISTA) 137-50 mcg/spray [place], Non-Aerosol 1 puff in each nostril Active [...] puff into the lungs Twice daily. Active DO-Awv-Pluoe Acid-Lutein (ESSENTIAL WOMAN 50+) 0.4-250 mg-mcg Tablet [...] Tablet 1 Active ipratropium (ATROVENT) 0.03 % [place], Non-Aerosol USE 2 SPRAYS BY NASAL ROUTE [...] relief and she will contact the paint formulator for consideration of a corticosteroid epidural injection. [...] of this 29-minute visit was spent in frxc-pa-dcff conversation with the patient and her present [...] Medications are be left unchanged and enlarged county historian on tools and utensils and be used [...]
--- OUTSIDE RECORDS SUMMARY | 2024-08-13 10:34 | XMS_ITS ---
Author Organization Omid Jimenes MD Address [address] [place], [place] [phone] Care Team Providers Care Drum Stenciler Name Role Phone Omid Jimenes Primary Care [...] Location Date Provider Diagnosis Omid Jimenes MD [address] [place] [address] [place] [phone] 03/06/2024 Omid Jimenes Plan Of Treatment Referrals Referral Date Details 03/07/2024 03/07/2024, osteopen ia of hip please eval and treat , Patrice Jay Next Appt Details Provider Name:Omid Akhtar ier, 09/26/2024 07:45:00 AM, [address] [place] [address], Suite [facility], [place], [place], [phone], Provider Name:Omid Akhtar ier, 09/29/2024 02:00:00 PM, [address] [place] [address], Suite [facility], [place], [place], [phone], Provider Name:Omid Akhtar ier, 02/24/2025 07:15:00 AM, [address] [place] [address], Suite [facility], [place], [place], [phone], Provider Name:Omid jor, 03/03/2025 02:30:00 PM, [address] [place] [address], Suite [facility], [place], [place], [phone], Progress Notes * Vy WAITE LDOB:1945 (78 yo F)Acc No.[id number]:03/06/2024 Patient:?Vy Waite :1945???Age:78 Y???Sex:Female Address:[address] [place] [address] Subjective: * Chief Complaints: * ???Bone density results * Medical History:? * Surgical History:? * Hospitalization/Major Diagno stic Procedure:? * Medications:? Objective: Assessment: Plan: * Treatment: * Procedure Codes:? * true * Date:? Generated for Jeannie grady/Kevin/eTransmitting on:?08/13/2024 10:34 AM EDT Consultation Request Notes Referral Date Referring Provider Referred Provider Not es 03/07/2024 Omid Jimenes, Patrice shannon of hip please eval and treat
--- OUTSIDE RECORDS SUMMARY | 2024-08-13 10:34 | XMS_ITS ---
Author Organization [facility] Address [address] [facility] [place] [address] Care Team Providers Care Cribber Name Role Phone Omid Jimenes MD Primary Care Provider Sushila Campos Unavailable [phone] Allergies Allergen (clinical drug ingredient) Drug/Non Drug [...] . Dx: for . 10/05/2014 Not-Taking Ergocalciferol 84194 UNIT 1 capsule Oral ly for 30 [...] Polyneuropathy due to type 2 diabetes mellitus ([id number]) Type 2 diabetes mellitus with diabetic polyneuropathy (E11.42) Active confirmed Problem Polyneuropathy due to diabetes mellitus type I ([id number]) Type 1 diabetes mellitus with diabetic polyneuropathy (E10.42) Active confirmed Vital Signs Height 5 ft 3 in in 03/06/2024 Weight 257 lbs 03/06/2024 BMI 45.52 kg/m2 03/06/2024 Procedures Procedure Date Ordered Date Performed Result Body Sit e 25732-HAEKLKW NAIL, 6 OR MORE 03/06/2024 N/A 03644-YTUL SKIN LESIONS, 2 TO 4 03/06/2024 N/A Encounters Encounter Location Date Provider Diagnosis [facility] [address] [address] 03/06/2024 Sushila Heredia Type 1 diabetes mellitus with diabetic polyneuropathy E10.42 and Tinea unguium B35.1 Assessments Encounter Date Diagnosis (ICD Code) Assessment Notes Treatment Notes Treatment Clinical Notes Section Notes 03/06/2024 Type 1 diabetes mellitus with diabetic polyneuropathy (ICD-10 - E10.42) 03/06/2024 Tinea unguium (ICD-10 - B35.1) Plan Of Treatment Pending Test Test Name Order Date 84301-WBTKDQW NAIL, 6 OR MORE 03/06/2024 24097-FYIF SKIN LESIONS, 2 TO 4 03/06/20 24 Next Appt Details Follow Up: prn, Reason: Provider Name:Sushila Garcia sameera, 09/24/2024 02:30:00 PM, [address] [place], [phone], Procedure Notes * Category Sub-Category Detail Notes [...] use of a nail nipper and/or dremel-type cnc grinder, to a more viable healthy nail plate or bed tissue 6-10. Silver nitrate used for any petechial bleeding as necessary. Definitive antifungal treatment options have been reviewed and discussed with the patient. The patient chooses, no pharmaceutical tx - 38332 Keratoma Treatment Parring or Cutting o f Benign Hyperkeratotic Lesion(s) (-56) 2-4 Lesions - The Benign hyperkeratotic lesions, as described in exam, were pared, and/or cut utilizing a sterile 15 blade, tissue nippers, and/or dremel - 66912 Progress Notes * Vy FISHMAN LDOB:1945 (78 yo F)Acc No.[id number]:03/06/2024 Progress Note Patient:?Vy Fishman Provider:?Sushila Heredia DPM :1945???Age:78 Y???Sex:Female D ate:03/06/2024 Address:[address], [place], [id number] Pcp:Omid Jimenes MD Subjective: * Chief Complaints: [...] Cervical disc replacement, 1 day stay. 05/07/2017[facility] [place]-Systemic Gout 9 day stay- Discharged to rehab- 12 days-Went back to [facility] 10/2018-01/10/2019[facility] [place]- Constipation, swelling, 12/21 * Family History:?Mother: dece [...] heat-molded multi-density innersoles for 1 year Dx:Ergocalciferol 78670 UNIT Capsule 1 capsule Orally Breo Ellipta [...] multi-density innersoles for 1 year Dx:Not-Taking/PRN Ergocalciferol 66128 UNIT Capsule 1 capsule Orally Not-Taking/PRN Breo [...] use of a nail nipper and/or dremel-type cnc grinder, to a more viable healthy nail plate or bed tissue 6-10. Silver nitrate used for any petechial bleeding as necessary. Definitive antifungal treatment options have been reviewed and discussed with the patient. The patient chooses, no pharmaceutical tx - 43998.?Keratoma Treatment:?Parring or Cutting of Benign Hyperkeratotic Lesion(s)?(-56) 2-4 Lesions - The Benign hyperkeratotic lesions, as described in exam, were pared, and/or cut utilizing a sterile 15 blade, tissue nippers, and/or dremel - 12860.? * Procedure Codes:?61799 DEBRI DE NAIL, 6 OR MORE, Modifiers: XS 95784 TRIM SKIN LESIONS, 2 TO 4, Modifiers: XS * Follow Up:?prn * Images: * Sign off status: Completed true * Provider:?Sushila Heredia DPM Date:?1 05/06/2023 Generated for Jeannie grady/Kevin/eTransmitting on:?08/13/2024 10:33 AM [...]
--- OUTSIDE RECORDS SUMMARY | 2024-08-13 10:34 | XMS_ITS ---
Author Organization [facility] Address [address] [facility] [place] [address] Care Team Providers Care Employee Benefits Director Name Role Phone Omid Jimenes MD Primary Care Provider Sushila Campos Unavailable [phone] Brittany Montiel Unavailable [phone] Allergies Allergen (clinical drug ingredient) Drug/Non Drug [...] for 1 year Dx: 10/06/2015 Not-Taking Ergocalciferol 15333 UNIT 1 capsule Oral ly for 30 [...] 025 Encounters Encounter Location Date Provider Diagnosis [facility] [address] [address] 07/18/2024 Brittany Montiel Type 2 diabetes mellitus [...] Provider Name:Sushila brasher, 09/24/2024 02:30:00 PM, [address] [place] [address], [phone], Procedure Notes * Category Sub-Category Detail Notes [...] use of a nail nipper and/or dremel-type crankshaft grinder, to a more viable healthy nail [...] to maintain effectiveness in symptomatic relief - 44938 Keratoma Treatment Parring or Cutting o f [...] instrumentation by the physician of record - 05465 Progress Notes * Vy FISHMAN LDOB:1945 (79 yo F)Acc No.[id number]:07/18/2024 Progress Note Patient:?Vy FISHMAN Haley Provider:?Brittany Montiel DPM :1945???Age:79 Y???Sex:Female D ate:07/18/2024 [facility], [id number] Pcp:Omid Jimenes MD Subjective: * Chief Complaints: [...] Cervical disc replacement, 1 day stay. 05/07/2017[facility] [place]-Systemic Gout 9 day stay- Discharged to rehab- 12 days-[facility] 10/2018-01/10/2019[facility] [place]- Constipation, swelling, [...] multi-density innersoles for 1 year Dx: Ergocalciferol 55023 UNIT Capsule 1 capsule Orally Breo Ellipta [...] innersoles for 1 year Dx: Not-Taking/PRN Ergocalciferol 24615 UNIT Capsule 1 capsule Orally Not-Taking/PRN Breo [...] use of a nail nipper and/or dremel-type crankshaft grinder, to a more viable healthy nail [...] to maintain effectiveness in symptomatic relief - 61198.?Keratoma Treatment:?Parring or Cutting of Benign Hyperkeratotic Lesion(s)?(-56) [...] instrumentation by the physician of record - 36160.? * Procedure Codes:?64088 DEBRI DE NAIL, 6 OR MORE, Modifiers: XS 16675 TRIM SKIN LESIONS, 2 TO 4, Modifiers: [...] Provider:?Brittany Montiel DPM Date:? Generated for Jeannie grady/Kevin/Willisitting on:?08/13/2024 10:34 AM EDT History and Physical [...]
== END 2024-08-13 10:20 | disposition home or self-care (01) ==
LOC: HO.PMC 09:31
PROVIDERS: PCP Internal Medicine; Visit Provider Internal Medicine
DX: M70.61 Trochanteric bursitis, right hip (principal); M70.62 Trochanteric bursitis, left hip; M47.816 Spondylosis without myelopathy or radiculopathy, lumbar region; G89.4 Chronic pain syndrome
CPT/HCPCS: 99213

== ENCOUNTER → 2024-08-13 09:31 | Outpatient (BNVA) | payer MEDICARE, OTHER, SELFPAY | PROVIDERS: PCP Internal Medicine; Visit Provider Internal Medicine | DX: Z51.81 Encounter for therapeutic drug level monitoring (principal); M54.9 Dorsalgia, unspecified; M48.062 Spinal stenosis, lumbar region with neurogenic claudication; M54.12 Radiculopathy, cervical region; M70.61 Trochanteric bursitis, right hip; M70.62 Trochanteric bursitis, left hip; M47.816 Spondylosis without myelopathy or radiculopathy, lumbar region; G89.4 Chronic pain syndrome; Z79.891 Long term (current) use of opiate analgesic | CPT/HCPCS: 99212 ==

== ENCOUNTER 2024-09-02 12:16 | Outpatient (REF) | payer MEDICARE, OTHER, SELFPAY ==
[2024-09-02 12:39] LABS: MANUAL DIFF FLAG NO
--- OUTSIDE RECORDS SUMMARY | 2024-09-02 13:41 | XMS_ITS | Patient Health Record ---
Author Organization Omid Jimenes MD Address [address] [place] [phone] Care Team Providers Care Supervisor Lens Generating Name Role Phone Omid Jimenes Primary Care Provider [phone] Allergies Allergen (clinical drug ingredient) Drug/Non Drug [...] Interpretation: Performing Lab: Notes/Report: Hemoglobin A1c 6.9 Glucose, finger stick Reviewed date:11/26/2023 01:53:20 PM Interpretation: Performing Lab: Notes/Report: Value 183 Glucose, finger stick Reviewed date:12/18/2023 11:23:09 AM Interpretation: Performing Lab: Notes/Report: Value 190 Complete Blood Count Auto Di ff Reviewed date:02/19/2024 08:34:52 PM Interpretation: Performing Lab:[facility], [address] [place] [phone] Notes/Report: White Blood Count 10.3 4.8-10.8 X10*3/uL [...] NRBC Abs Auto 0.000 0.0-0.012 X10*3/uL Comprehensive [place]. Panel [facility] Reviewed date:02/19/2024 08:44:28 PM Interpretation: Performing Lab:[facility], [address] [place] [phone] Notes/Report: Sodium 141 135-145 mmol/L Potassium 4.4 3.3-5.1 mmol/L Chloride 102 96-108 mmol/L Carbon Dioxide 27 22-29 mmol/L Anion Gap 16 12-20 Blood Urea Nitrogen 28 9-16 mg/dL Creatinine 1.40 0.5-1.4 mg/dL Estimated Glomerular Filt Rate 36 NOTE: For -Latvian individuals, multiply the result by 1.210. Chronic [...] PROFILE Reviewed date:02/19/2024 08:33:19 PM Interpretation: Performing Lab:[facility], [address] [place] [phone] Notes/Report: Iron 84 30-160 mcg/dL Total Iron Binding Capacity 256 228-428 mcg/dL Percent Iron Saturation 33 15-50 % Unsaturated Iron Binding 172 Lipid Panel Reviewed date:02/19/2024 08:24:06 PM Interpretation: Performing Lab:[facility], [address] [place] [phone] Notes/Report: Triglycerides 134 <150 mg/dL Desirable Triglyceride: [...] Total Reviewed date:02/19/2024 08:32:16 PM Interpretation: Performing Lab:[facility], [address] [place] [phone] Notes/Report: Vitamin D 25-OH Total 37.7 >30 [...] T4 Reviewed date:02/19/2024 08:33:11 PM Interpretation: Performing Lab:[facility], [address] [place] [phone] Notes/Report: TSH reflex Free T4 3.76 0.32-4.0 uIU/mL Microalbumin, Random Reviewed date:02/19/2024 08:24:16 PM Interpretation: Performing Lab:[facility], [address] [place] [phone] Notes/Report: Creatinine Urine 88.42 Microalbumin Urine 32.0 Microalbum/Creatinine Ratio Ur 36.1 <30 ug/mg cr Albumin/Creatinine Ratio Reference Ranges: Normal: < 30 ug/mg creatinine Microalbuminuria: 30 - 300 ug/mg creatinine Clinical Albuminuria: > 300 ug/mg creatinine Hemoglobin A1c Reviewed date:02/19/2024 08:36:41 PM Interpretation: Performing Lab:[facility], [address] [place] [phone] Notes/Report: Hemoglobin A1c % 5.9 <6.0 % [...] average glucose, using the formula of the J1X-Savjbhw Average Glucose study (ADAG), Diabetes Care, Vol.31,#8, Nov. 2007 UA ClnCatch+Micro w/rflx Cul t Reviewed date:02/19/2024 08:35:51 PM Interpretation: Performing Lab:[facility], [address] [place] [phone] Notes/Report: Urine, Clean Catch Color Urine Yellow Appearance Urine Clear PH 7.0 5.0-9.0 Glucose Urine UA Negative Negative mg/dL Urine Blood Negative Negative Specific [place] - Urine 1.010 1.005-1.025 Urine Protein Negative Neg-Trace mg/dL Urine Ketones Negative Negative mg/dL Nitrite Urine Negative Negative Leukocyte Esterase Urine Small (1+) Negative RBC Urine 0-2 0-2 /HPF WBC Urine 6-10 0-5 /HPF Squamous Epithelial Cell Urine 11-20 0-2 /HPF Bacteria Urine 1+ None Seen Hyaline Casts Urine 6-10 0-2 /LPF Hold Gold Reviewed date:02/19/2024 05:44:22 PM Interpretation: Performing Lab:[address] [phone] Notes/Report: Hold Gold See Note Specimen held untested for 24 hours; Call to request Chemistry testing. Urine Culture Reviewed date:02/20/2024 05:04:39 PM Interpretation: Performing Lab:[facility], [address] [place] [address] [place] [phone] Notes/Report: Urine Culture Report Result Urine Culture 50,000 to 100,000 cfu/ml Urine Culture Mixed bacterial [place] a characteristic of Urine Culture urogenital contamination. XR DEXA axial skeleton Reviewed date:02/29/2024 05:11:35 PM Interpretation: Performing Lab: Notes/Report: [address] [place] [address] Mammography Report Signed Patient: Vy Fishman MR#: [id number] 121 : 1945 Acct:[id number] Age/Sex: 78 / F ADM Date: 02/28/24 Loc: HO.MAMMO Attending Dr: Omid Jimenes MD Ordering Physician: Omid Jimenes MD Results: Date of Service: 02/28/24 Follow Up: Procedure(s): XR DEXA axial skeleton Accession Number(s): [id number] cc: Omid Jimenes MD EXAMINATION: BONE DENSITOMETRY CLINICAL INDICATION: Age-related osteoporosis without current pathological fracture. COMPARISON: This is the patient's baseline examination. TECHNIQUE: Using a [employer] DXA System (software version: 13.1) manufactured by [employer], dual-energy x-ray absorptiometry was performed of the [...] 02/29/24 1219 DD/ 1300 TD/TT: 02/28/24 1320 State [employer] Deputy Director: [facility] [address] [place], [place] [address] Mammography Report Signed Patient: Vy Fishman MR#: [id number] 121 : 1945 Acct:[id number] Age/Sex: 78 / F ADM Date: 02/28/24 Loc: HO.MAMMO Attending Dr: Omid Jimenes MD Ordering Physician: Omid Jimenes MD Results: Date of Service: 02/28/24 Follow Up: Procedure(s): XR DEX A axial skeleton Accession Number(s): [id number] cc: Omid Jimenes MD EXAMINATION: BONE DENSITOMETRY CLINICAL INDICATION: Age-related osteoporosis without current pathological fracture. COMPARISON: This is the patient' s baseline examination. TECHNIQUE: Using a 60mo DXA System (software version: 13.1) manufactured by [employer], dual-energy x-ray absorptiometry was performed of the [...] Serjio Castañeda MD 02/29/2024 12:19 PM EDT RP Dictated By: Serjio Castañeda MD Signed By: <Electronically signed by Serjio Castañeda MD in OV> 02/29/24 1219 DD/ 1300 TD/TT: 02/28/24 1320 [employer] Deputy Director: MM tomosynthesis screening B I Reviewed date:05/25/2024 05:17:35 PM Interpretation: Performing Lab: Notes/Report: [place] [facility] [address] [place] [address] Mammography Report Signed Patient: Vy Fishman MR#: [id number] 121 : 1945 Acct:[id number] Age/Sex: 78 / F ADM Date: 05/14/24 Loc: HO.MAMMO Attending Dr: Omid Jimenes MD Ordering Physician: Omid Jimenes MD Results: 2Be nign Findings Date of Service: 05/14/24 Follow Up: 1 Year From [facility] Mammogram Procedure(s): MM tomosynthesis screening BI Accession Number(s): [id number] cc: Omid Jimenes MD EXAMINATION: MM SCREENING [...] Dahlia Green DO 05/25/2024 10:39 AM EST Dictated By: Dahlia Green DO Signed By: <Electronically signed by Dahlia Green DO in OV> 05/25/24 1039 DD/ 1445 TD/TT: 05/14/24 1520 [employer] Deputy Director: [place] [facility] [address] [place] [address] Mammography Report Signed Patient: Vy Fishamn MR#: [id number] 121 : 1945 Acct:[id number] Age/Sex: 78 / F ADM Date: 05/14/24 Loc: HO.MAMMO Attending Dr: Omid Jimenes MD Ordering Physician: Omid Jimenes MD Results: 2Be nign Findings Date of Service: 05/14/24 Follow Up: 1 Year From [facility] Mammogram Procedure(s): MM tomosynthesis screening BI Accession Number(s): [id number] cc: Omid Jimenes MD EXAMINATION: MM SCREENING [...] 05/25/24 1039 DD/ 1445 TD/TT: 05/14/24 1520 [employer] Deputy Director: Reason For Referral Reason osteopenia of hip [...] day for 7 days 11/30/2023 Active Nystop 210402 UNIT/GM APPLY ONE APPLICAT ION EXTERNALLY TWO [...] Problem Status W/U Status Risk Notes Problem 03542827 Hemoptysis (R04.2) Active confirmed Problem 84018184 Vitamin D defici ency (E55.9) Active confirmed Problem 27023864 Hypercalcemia (E83.52) Active confirme d Problem 850919723 Other specified menopausal and perimenopausal disorders (N95.8) Active confirmed Problem 171309091 Body mass index (BMI) 45.0-49.9, adult (Z68.42) Active confirmed Problem 5957502 Arthritis (M19.90) Active confirmed Problem 7691287 Diastolic dysfun ction (I51.9) Active confirmed Problem 586875413 Tubular adenoma of colon (D12.6) Active confirmed Problem 00976174 Essential hypert ension (I10) Active confirmed Problem 167380889 Acquired hypothyroidism (E03.9) Active confirmed Problem 126927091 Mild intermitten t asthma without complication (J45.20) Active confirmed Problem 80370372 Type 2 diabetes mellitus without complication (E11.9) Active confirmed Problem 7073061 Aortic valve dis order (I35.9) Active confirmed Problem 050640196 Morbid obesity d ue to excess calories (E66.01) Active confirmed Problem 02745692 Chronic obstruct manolo pulmonary disease, unspecified COPD type (J44.9) Active confirmed Problem 228736398 History of hemat uria (Z87.448) Active confirmed Problem 075423909 Acute systolic congestive heart failure (I50.21) Active confirmed Problem 715971707160133 Moderate persist ent asthma with acute exacerbation (J45.41) Active confirmed Problem 208283784 Iron deficiency anemia due to chronic blood loss (D50.0) Active confirmed Problem 302007414 GERD (gastroesop hageal reflux disease) (K21.9) Active confirmed Problem 21601026 Aortic valve terrence nosis, unspecified etiology (I35.0) Active confirmed Problem 33473968 Liver cyst (K76.89) Active confirmed Problem 347265223 Pure hypercholesterolemia (E78.00) Active confirmed Problem 395801726 OAB (overactive bladder) (N32.81) Active confirmed Problem 85871625 CLEVE (obstructive sleep apnea) (G47.33) Active confirmed Problem 229115483 Hand arthritis (M19.049) Active confirmed Problem 101968791 Arthritis pain o f hand (M19.049) Active confirmed Problem 644488446 Arthritis pain o f shoulder (M19.019) Active confirmed Problem H/O aortic valve replacement (Z95.2) Active confirmed Problem 767925628 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) Active confirmed Problem 682809908 Acute constipati on (K59.00) Active confirmed Vital Signs Blood pressure diastolic 76 mm Hg 02/29/2024 vamsi ght is down 8 pounds since 12-17-23 Height 64 in 02/29/2024 weight is down 8 pounds since 12-17-23 Blood pressure systolic 158 mm Hg 02/29/2024 vamsig ht is down 8 pounds since 12-17-23 Weight 252 lbs 02/29/2024 weight is down 8 pounds since 12-17-23 BMI 43.25 kg/m2 02/29/2024 weight is down 8 pounds since 12-17-23 Encounters Encounter Location Date Provider Diagnosis Omid Jimenes MD [address] [place] [id number] 11/26/2023 Omid Jimenes Type 2 diabetes kel itus without complication E11.9 and Postmenopausal osteoporosis M81.0 Omid Jimenes MD [address] [place] [id number] 11/30/2023 Omid Jimenes Acute cellulitis L03 .90 Omid Jimenes MD [address] [place] [address] [id number] 12/17/2023 Omid Jimenes Acute constipation K 59.00 ; Acute cellulitis L03.90 and Type 2 diabetes mellitus without complication E11.9 Omid Jimenes MD [address] [place] [address] [id number] 02/19/2024 Omid Jimenes Type 2 diabetes kel itus without complication E11.9 ; Acquired hypothyroidism E03.9 ; Essential hypertension I10 ; Vitamin D deficiency E55.9 and Iron deficiency anemia due to chronic blood loss D50.0 Omid Jimenes MD [address] [place] [id number] 02/29/2024 Omid Jimenes Acute systolic conge stive heart failure I50.21 ; Morbid obesity due to excess calories E66.01 and Chronic obstructive pulmonary disease, unspecified COPD type J44.9 Omid Jimenes MD [address] [place] [address] [id number] 09/20/2023 Omid Jimenes MD [address] [place] [id number] 10/30/2023 Omid Jimenes Type 2 diabetes kel itus without complication E11.9 Omid Jimenes MD [address] [place] [address] [id number] 12/10/2023 Omid Jimenes MD [address] [place] [address] [id number] 01/01/2024 Omid Jimenes MD [address] [place] [address] [id number] 02/07/2024 Omid Jimenes Type 2 diabetes kel [...] Omid Jimenes MD [address] [place] [address] [id number] 03/06/2024 Omid Jimenes MD [address] [place] [address] [id number] 03/07/2024 Omid Jimenes Breast cancer screen ing Z12.31 Assessments Encounter Date Diagnosis (ICD Code) Assessment Notes Treatment Notes Treatment Clinical Notes Section Notes 11/26/2023 Type 2 diabetes mellitus without complication (ICD-10 - E11.9) will continue current regiment 11/26/2023 Postmenopausal osteoporosis (ICD-10 - M81.0) pending diagnostic testing, THE BONE DENSITY ORDER HAS BEEN FAXED TO [facility]TRALIZED FOR SCHEDULING 11/30/2023 Acute cellulitis (ICD-10 [...] coninuous shortness of breath/ order faxed to [facility] CS dept 02/29/2024 Morbid obesity due t o excess calories (ICD-10 - E66.01) has lost some weight 10/30/2023 Type 2 diabetes mellitus without complication (ICD-10 - E11.9) 02/07/2024 Type 2 diabetes mellitus without complication (ICD-10 - E11.9) 12/17/2023 Type 2 diabetes mellitus without complication [...] Study 12/07/2016 Next Appt Details Provider Name:Omid Akhtar ier, 09/26/2024 07:45:00 AM, [address], [address], [place], [phone], Provider Name:Omid Akhtar ier, 09/29/2024 02:00:00 PM, [address] [facility], [address], [place], [phone], Provider Name:Omid Akhtar ier, 02/24/2025 07:15:00 AM, [address], [address], [place], [phone], Provider Name:Omid Akhtar ier, 03/03/2025 02:30:00 PM, [address] [facility], [address], [place], [phone], Insurance Providers Payer Name Payer Address Payer Phone Subscriber Number Group Number Insured Name Patient Relationship to Insured Coverage Start Date Coverage End Date MEDICARE NHIC [employer] [address] [place] [address] [id number] Vy Fishman Self - patient is the insured [facility] [address] [place] [phone] [id number] Vy Fishman Self - patient is the insured Medical (General) History Medical History History ICD Code Endoscopy and colonoscopy do ne 05/2007; both done 01/30/2014 repeat in 5 : 03/28/22 colonocopy awaiting path hematuria work up in 20's Needs yearly echo - DX Aortic Stenosis ( done 06/2015) ct abdomen 12/21 at [facility] normal
--- OUTSIDE RECORDS SUMMARY | 2024-09-02 13:42 | XMS_ITS | Clinical Summary ---
Author Organization [facility] ity Address [address] [place] [address] Care Team Providers Care Health Promotion Coordinator Name Role Phone Omid Jimenes MD Primary Care Provider [phone] Social History Tobacco Use Types Packs/Day Years [...] Pneumococcal Vaccine: 50+ Ye ars (1 of 1 - PCV) 1994 Zoster Vaccines (1 of 2) 1994 RSV Immunization Adult Patie nts (1 - 1-dose 75+ series) 07/04/2019 COVID-19 Vaccine ( - 2023-2 5 season) [...] age to complete this topic Care Teams Health Promotion Coordinator Relationship Specialty Start Date End Date Omid Jimenes MD PCP - General 12/21/10
--- OUTSIDE RECORDS SUMMARY | 2024-09-02 13:42 | XMS_ITS ---
Author Organization [facility] Address [address] [facility] [place] [address] Care Team Providers Care Instrument Inspector Name Role Phone Omid Jimenes MD Primary Care Provider Sushila Campos Unavailable [phone] Allergies Allergen (clinical drug ingredient) Drug/Non Drug [...] . Dx: for . 10/05/2014 Not-Taking Ergocalciferol 19654 UNIT 1 capsule Oral ly for 30 [...] Problem Status W/U Status Risk Notes Problem Type 2 diabetes mellitus with diabetic polyneuropathy (E11.42) Active confirmed Problem Polyneuropathy due to diabetes mellitus type I (226843049) Type 1 diabetes mellitus with diabetic polyneuropathy (E10.42) Active confirmed Vital Signs Height 5 ft 3 in in 03/06/2024 Weight 257 lbs 03/06/2024 BMI 45.52 kg/m2 03/06/2024 Procedures Procedure Date Ordered Date Performed Result Body Sit e 36808-ZFWPOXQ NAIL, 6 OR MORE 03/06/2024 N/A 56099-NGQJ SKIN LESIONS, 2 TO 4 03/06/2024 N/A Encounters Encounter Location Date Provider Diagnosis [facility] [address] [address] 03/06/2024 Sushila Heredia Type 1 diabetes mellitus with diabetic polyneuropathy E10.42 and Tinea unguium B35.1 Assessments Encounter Date Diagnosis (ICD Code) Assessment Notes Treatment Notes Treatment Clinical Notes Section Notes 03/06/2024 Type 1 diabetes mellitus with diabetic polyneuropathy (ICD-10 - E10.42) 03/06/2024 Tinea unguium (ICD-10 - B35.1) Plan Of Treatment Pending Test Test Name Order Date 52130-UUXUSNS NAIL, 6 OR MORE 03/06/2024 75256-JPCX SKIN LESIONS, 2 TO 4 03/06/20 24 Next Appt Details Follow Up: prn, Reason: Provider Name:Sushila brasher, 09/24/2024 02:30:00 PM, [address] [place] [address], [phone], Procedure Notes * Category Sub-Category Detail Notes [...] use of a nail nipper and/or dremel-type crystal grinder, to a more viable healthy nail plate or bed tissue 6-10. Silver nitrate used for any petechial bleeding as necessary. Definitive antifungal treatment options have been reviewed and discussed with the patient. The patient chooses, no pharmaceutical tx - 82263 Keratoma Treatment Parring or Cutting o f Benign Hyperkeratotic Lesion(s) (-56) 2-4 Lesions - The Benign hyperkeratotic lesions, as described in exam, were pared, and/or cut utilizing a sterile 15 blade, tissue nippers, and/or dremel - 82640 Progress Notes * Vy FISHMAN LDOB:1945 (78 yo F)Acc No.[id number]:03/06/2024 Progress Note Patient:?Vy Fishman Provider:?Sushila Heredia DPM :1945???Age:78 Y???Sex:Female D ate:03/06/2024 Address:[address], [place], [id number] Pcp:Omid Jimenes MD Subjective: * Chief Complaints: [...] Cervical disc replacement, 1 day stay. 05/07/2017[facility] [place]-Systemic Gout 9 day stay- Discharged to rehab- 12 days-Went back to [facility] 10/2018-01/10/2019[facility] [place]- Constipation, swelling, 12/21 * Family History:?Mother: dece [...] heat-molded multi-density innersoles for 1 year Dx:Ergocalciferol 58290 UNIT Capsule 1 capsule Orally Breo Ellipta [...] multi-density innersoles for 1 year Dx:Not-Taking/PRN Ergocalciferol 37778 UNIT Capsule 1 capsule Orally Not-Taking/PRN Breo [...] GRADIENT(C):?warm to cool, proximal to distal.?PIGMENTATION:?normal, B/L.?EDEMA(C):? 1/4, B/L, Ankle(s), Leg(s).?TELANGECTASIA:?absent.?VARICOSITIES:?absent.?Orthopedic: ?MUSCLE STRENGTH:?5/5 all [...] use of a nail nipper and/or dremel-type crystal grinder, to a more viable healthy nail plate or bed tissue 6-10. Silver nitrate used for any petechial bleeding as necessary. Definitive antifungal treatment options have been reviewed and discussed with the patient. The patient chooses, no pharmaceutical tx - 97088.?Keratoma Treatment:?Parring or Cutting of Benign Hyperkeratotic Lesion(s)?(-56) 2-4 Lesions - The Benign hyperkeratotic lesions, as described in exam, were pared, and/or cut utilizing a sterile 15 blade, tissue nippers, and/or dremel - 69028.? * Procedure Codes:?86848 DEBRI DE NAIL, 6 OR MORE, Modifiers: XS 05525 TRIM SKIN LESIONS, 2 TO 4, Modifiers: XS * Follow Up:?prn * Images: * Sign off status: Completed true * Provider:?Sushila Heredia DPM Date:?1 05/06/2023 Generated for Jeannie grady/Favenug/eTransmitting on:?09/02/2024 01:41 PM EDT History and Physical Notes * [...]
--- OUTSIDE RECORDS SUMMARY | 2024-09-02 13:42 | XMS_ITS | Patient Health Record ---
Author Organization [facility] Address [address] [place] [address] Care Team Providers Care Body Shop Worker Name Role Phone Omid Jimenes MD Primary Care Provider Sushila Campos Unavailable [phone] Alexis Martinez Unavailable [phone] Brittany Montiel Unavailable [phone] Allergies Allergen (clinical drug ingredient) Drug/Non Drug [...] (HH) 6.8 HEMOGLOBIN A1C (GLYCOHEMOGLO BIN) Reviewed date:07/18/2024 01:45:06 PM Interpretation: Performing Lab: Notes/Report: HEMOGLOBIN A1C % (HH) 6.0 HEMOGLOBIN A1C (GLYCOHEMOGLO BIN) Reviewed date:05/27/2024 08:37:35 AM Interpretation: Performing Lab: Notes/Report: HEMOGLOBIN A1C % (HH) 5.9 HEMOGLOBIN A1C (GLYCOHEMOGLO BIN) Reviewed date:05/22/2024 02:12:52 PM Interpretation: Performing Lab: Notes/Report: HEMOGLOBIN A1C % (HH) 5.9 HEMOGLOBIN A1C (GLYCOHEMOGLO BIN) Reviewed date:03/06/2024 03:03:22 [...] for 1 year Dx: 10/06/2015 Not-Taking Ergocalciferol 46036 UNIT 1 capsule Oral ly for 30 [...] Problem Status W/U Status Risk Notes Problem Hallux valgus (acquired), left foot (M20.12) Active confirmed Problem Polyneuropathy due to diabetes mellitus type I (773683369) Type 1 diabetes mellitus with diabetic polyneuropathy (E10.42) Active confirmed Problem Polyneuropathy due to type 2 diabetes mellitus (476824840) Type 2 diabetes mellitus with diabetic polyneuropathy (E11.42) Active confirmed Problem Acquired hallux valgus (68501107) Hallux valgus (acquired), right foot (M20.11) Active confirmed Problem Acquired hammer toe of right foot (1493258904789910 ) Other hammer toe(s) (acquired), right foot (M20.41) Active confirmed Problem Acquired hammer toe of left foot (6035111105786370 ) Other hammer toe(s) (acquired), left foot (M20.42) Active confirmed Problem Polyneuropathy due to diabetes mellitus type I (469379318) Type 1 diabetes mellitus with diabetic polyneuropathy (E10.42) Active confirmed Vital Signs Blood pressure diastolic 62 mm Hg 07/18/2024 Height 5 ft 3 in in 07/18/2024 Blood pressure systolic 130 mm Hg 07/18/2024 Weight 257 lbs 07/18/2024 BMI 45.52 kg/m2 07/18/2024 Procedures Procedure Date Ordered Date Performed Result Body Sit e 57347-OLUAFWO NAIL, 6 OR MORE 03/06/2024 N/A 82808-RKRY SKIN LESIONS, 2 TO 4 03/06/2024 N/A 73612-AIHWJFV NAIL, 6 OR MORE 05/12/2024 N/A 28002-PUTA SKIN LESIONS, 2 TO 4 05/12/2024 N/A Encounters Encounter Location Date Provider Diagnosis [address] [address] 10/08/2023 Alexis Martinez Type 1 diabetes mellitus [...] M76.61 and Achilles tendinitis, left leg M76.[address] [address] 12/27/2023 AlexisGriggs Type 1 diabetes mellitus with diabetic polyneuropathy [...] M76.61 and Achilles tendinitis, left leg M76.[address] [address] 03/06/2024 Sushila Heredia Type 1 diabetes mellitus with diabetic polyneuropathy E10.42 and Tinea unguium B35.[address] [address] 05/12/2024 Sushila Heredia Type 2 diabetes mellitus with diabetic polyneuropathy E11.42 and Tinea unguium B35.[address] [address] 07/18/2024 Brittany Montiel Type 2 diabetes mellitus with diabetic polyneuropathy E11.42 ; Other hammer toe(s) (acquired), right foot M20.41 ; Tinea unguium B35.1 ; Other hammer toe(s) (acquired), left foot M20.42 and Pre-ulcerative calluses L[address] [address] 12/10/2023 Alexis Martinez Assessments Encounter Date Diagnosis [...] X ray : Foot, right 3V 04/10/2022 83015-VAIJINN NAIL, 6 OR MORE 03/06/2024 97806-DEJUELD NAIL, 6 OR MORE 05/12/2024 25406-STNLSRP NAIL, 6 OR MORE 10/04/2016 31662-BVZOIPZ NAIL, 6 OR MORE 04/04/2017 77688-HPYPSGG NAIL, 6 OR MORE 10/03/2017 54608-QCCFZCV NAIL, 6 OR MORE 04/08/2018 62291-AMBASNJ NAIL, 6 OR MORE 04/03/2013 83604-VGJCSCN NAIL, 6 OR MORE 07/10/2013 47263-GZSGMZW NAIL, 6 OR MORE 10/16/2013 87059-HZMCPLJ NAIL, 6 OR MORE 01/21/2014 22486-UPTDPXV NAIL, 6 OR MORE 06/04/2014 72246-GWXXDRN NAIL, 6 OR MORE 10/05/2014 48713-FGATKJM NAIL, 6 OR MORE 01/06/2015 34895-ZGIBLRW NAIL, 6 OR MORE 04/07/2015 42993-MFVBHYF NAIL, 6 OR MORE 10/06/2015 78323-VKWFJOH NAIL, 6 OR MORE 04/05/2016 84201-UHILCKU NAIL, 1-5 10/30/2012 41043-MZJYKZY NAIL, 1-5 01/16/2013 85581-DVORUWH NAIL, 1-5 09/05/2012 59607-CJPWOHY NAIL, 1-5 07/18/2012 11432-KMXTWYL NAIL, 1-5 07/31/2012 29889-Imwsmdds Plate 07/31/2012 89574-Xbzwxffb Plate 09/05/2012 22501-Mkwseelo Plate 07/18/2012 66137-Arukqvns Plate 10/03/2017 19439-Fppumjif Plate 10/16/2013 96278-Mkisvldu Plate 04/04/2017 94602-NYTW SKIN LESIONS, OVER 4 07/19/19 13 08569-CLJX SKIN LESIONS, OVER 4 09/06/19 13 61701-TEGM SKIN LESIONS, OVER 4 08/01/19 13 11788-FZFD SKIN LESIONS, OVER 4 07/11/19 14 90354-BEGX SKIN LESIONS, OVER 4 01/17/20 13 31330-XLIS SKIN LESIONS, OVER 4 04/03/20 13 69074-LQVL SKIN LESIONS, OVER 4 04/05/20 16 61778-TGWR SKIN LESIONS, OVER 4 10/05/19 17 78732-IUOC SKIN LESIONS, OVER 4 10/06/19 16 74473-PAJW SKIN LESIONS, OVER 4 04/07/20 15 57412-CJNA SKIN LESIONS, OVER 4 01/07/20 15 75818-KHHQ SKIN LESIONS, OVER 4 10/06/19 15 63724-UMMU SKIN LESIONS, OVER 4 06/04/19 15 45379-XYVT SKIN LESIONS, OVER 4 01/22/20 14 54200-VSOE SKIN LESIONS, OVER 4 10/17/19 14 29213-RJOR SKIN LESIONS, 2 TO 4 04/04/20 17 60263-HDOU SKIN LESIONS, 2 TO 4 10/04/19 18 51471-CBZG SKIN LESIONS, 2 TO 4 10/08/19 19 27460-OXXY SKIN LESIONS, 2 TO 4 01/28/20 19 77005-AAUQ SKIN LESIONS, 2 TO 4 04/09/20 19 81400-QYCW SKIN LESIONS, 2 TO 4 06/12/19 20 82123-BFNN SKIN LESIONS, 2 TO 4 10/13/19 20 68091-QLJU SKIN LESIONS, 2 TO 4 12/15/19 20 05049-MULE SKIN LESIONS, 2 TO 4 02/16/20 20 38968-OQKB SKIN LESIONS, 2 TO 4 05/13/19 21 19421-PGFJ SKIN LESIONS, 2 TO 4 08/12/19 21 96977-DEZU SKIN LESIONS, 2 TO 4 10/19/19 21 03047-ZUYR SKIN LESIONS, 2 TO 4 12/23/19 21 31895-VXBD SKIN LESIONS, 2 TO 4 02/24/20 21 11210-RMYS SKIN LESIONS, 2 TO 4 05/09/19 22 95778-WUPK SKIN LESIONS, 2 TO 4 07/15/19 22 81018-TYTD SKIN LESIONS, 2 TO 4 05/12/19 25 97483-QAIT SKIN LESIONS, 2 TO 4 03/06/20 24 50921-UDVL SKIN LESIONS, 2 TO 4 04/08/20 18 14650-LNAU NAIL(S) 01/16/2013 27579-VQMK NAIL(S) 10/30/2012 Next Appt Details Provider Name:Sushila Garcia sameera, 09/24/2024 02:30:00 PM, [address] [facility], [place], [address], Insurance Providers Payer Name Payer Address Payer Phone Subscriber Number Group Number Insured Name Patient Relationship to Insured Coverage Start Date Coverage End Date Medicare National Govt Sv[employer] [address] [place] [address] [id number] Vy Fishman Self - patient is the insured [employer] ([employer]) [address] [place] [address] [id number] Vy Fishman Self - patient is the insured for Life [address] [place] [address] [id number] Vy Fishman Self - patient is the [...]
--- OUTSIDE RECORDS SUMMARY | 2024-09-02 13:42 | XMS_ITS ---
Author Organization Omid Jimenes MD Address [address] [place] [phone] Care Team Providers Care Hot Mill Observer Name Role Phone Omid Jimenes Primary Care Provider REASON FOR VISIT mammogram order updated Encounters Encounter Location Date Provider Diagnosis Omid Jimenes MD [address] [place] [phone] 03/07/2024 Omid Jimenes Breast cancer screening Z12.31 Assessments Encounter Date Diagnosis (ICD Code) Assessment Notes Treatment Notes Treatment Clinical Notes Section Notes 03/07/2024 Breast cancer screening (ICD-10 - Z12.31) Plan Of Treatment Pending Test Test Name Order Date MAMMOGRAM DIGITAL BILATERAL SCREEN 03/07 Next Appt Details Provider Name:Omid Akhtar ier, 09/26/2024 07:45:00 AM, [address], [address], [place], [place], [phone], Provider Name:Omid Akhtar ier, 09/29/2024 02:00:00 PM, [address] [place] [address] Drive, [address], [place], [place], [phone], Provider Name:Omid Akhtar ier, 02/24/2025 07:15:00 AM, [address] [place] [address], [address], [place], [place], [phone], Provider Name:Omid Akhtar ier, 03/03/2025 02:30:00 PM, [address] [place] [address], [address], [place], [place], [phone], Progress Notes * Vy WAITE LDOB:1945 (78 yo F)Acc No.[id number]:03/07/2024 Patient:?Vy Waite L :1945???Age:78 Y???Sex:Female Address:[address] [place] [address] Subjective: * Chief Complaints: * ???Mammogram order updated * Medical History:? * Surgical History:? * Hospitalization/Major Diagno stic Procedure:? * Medications:? Objective: Assessment: * Assessment: 1.?Breast cancer screening - Z12.31? Plan: * Treatment: * Procedure Codes:? * true * Date:? Generated for Jeannie grady/Kevin/eTransmitting on:?09/02/2024 01:42 PM EDT
--- OUTSIDE RECORDS SUMMARY | 2024-09-02 13:42 | XMS_ITS ---
Author Organization [facility] Address [address] [facility] [place] [address] Care Team Providers Care Citrus Picker Name Role Phone Omid Jimenes MD Primary Care Provider Sushila Campos Unavailable [phone] Allergies Allergen (clinical drug ingredient) Drug/Non Drug [...] for 1 year Dx: 10/06/2015 Not-Taking Ergocalciferol 48267 UNIT 1 capsule Oral ly for 30 [...] Ordered Date Performed Result Body Sit e 20424-IEIXBGX NAIL, 6 OR MORE 05/12/2024 N/A 91340-BZJE SKIN LESIONS, 2 TO 4 05/12/2024 N/A Encounters Encounter Location Date Provider Diagnosis [facility] [place] [address] [place] [address] 05/12/2024 Sushila Heredia Type 2 diabetes mellitus with diabetic polyneuropathy E11.42 and Tinea unguium B35.1 Assessments Encounter Date Diagnosis (ICD Code) Assessment Notes Treatment Notes Treatment Clinical Notes Section Notes 05/12/2024 Type 2 diabetes mellitus with diabetic polyneuropathy (ICD-10 - E11.42) 05/12/2024 Tinea unguium (ICD-10 - B35.1) Plan Of Treatment Pending Test Test Name Order Date 83966-MHQZHKM NAIL, 6 OR MORE 05/12/2024 66968-NJIY SKIN LESIONS, 2 TO 4 05/12/19 Next Appt Details Follow Up: 3 Months, Reason: Provider Name:Sushila brasher, 09/24/2024 02:30:00 PM, [address] [place] [address], [phone], Procedure Notes * Category Sub-Category Detail Notes [...] use of a nail nipper and/or dremel-type grinder hand, to a more viable healthy nail plate [...] instrumentation by the physician of record - 39835 Progress Notes * Vy FISHMAN LDOB:1945 (78 yo F)Acc No.[id number]:05/12/2024 Progress Note Patient:?Vy FISHMAN Provider:?Sushila Heredia DPM :1945???Age:78 Y???Sex:Female D ate:05/12/2024 Address:[address] [place] [address], [facility], [phone] Pcp:Omid Jimenes MD Subjective: * Chief Complaints: [...] rehab- 12 days-Went back to [facility] and rehab 10/2018-01/10/2019Comonae Casanova- Constipation, swelling, 12/21 [...] multi-density innersoles for 1 year Dx: Ergocalciferol 46617 UNIT Capsule 1 capsule Orally Breo Ellipta [...] innersoles for 1 year Dx: Not-Taking/PRN Ergocalciferol 72576 UNIT Capsule 1 capsule Orally Not-Taking/PRN Breo [...] use of a nail nipper and/or dremel-type grinder hand, to a more viable healthy nail plate [...] to maintain effectiveness in symptomatic relief - 84115.?Keratoma Treatment:?Parring or Cutting of Benign Hyperkeratotic Lesion(s)?(-56) [...] instrumentation by the physician of record - 80324.? * Procedure Codes:?88452 DEBRI DE NAIL, 6 OR MORE, Modifiers: XS 94085 TRIM SKIN LESIONS, 2 TO 4, Modifiers: XS * Follow Up:?3 Months * Images: * Sign off status: Completed true * Provider:?Sushila Heredia DPM Date:?0 05/12/2024 Generated for Jeannie grady/Kevin/eTransmitting on:?09/02/2024 01:42 PM EDT History and Physical Notes * [...]
--- OUTSIDE RECORDS SUMMARY | 2024-09-02 13:42 | XMS_ITS ---
Author Organization Omid Jimenes MD Address [address] [place] [phone] Care Team Providers Care Jet Ski Mechanic Name Role Phone Omid Jimenes Primary Care [...] day for 7 days 11/30/2023 Active Nystop 058250 UNIT/GM APPLY ONE APPLICAT ION EXTERNALLY TWO [...] Problem Status W/U Status Risk Notes Problem 67089666 Chronic obstructive pulmonary disease, unspecified COPD type (J44.9) Active confirmed Vital Signs Blood pressure systolic 158 mm Hg 02/29/20 24 Blood pressure diastolic 76 mm Hg 024 Height 64 in 02/29/2024 Weight 252 lbs 02/29/2024 BMI 43.25 kg/m2 02/29/2024 weight is down 8 pounds [facility] e 12-17-23 Encounters Encounter Location Date Provider Diagnosis Omid Jimenes MD [address] [place] [address] [place] [phone] 02/29/2024 Omid Jimenes Acute systolic congestive heart failure I50.21 ; Morbid obesity due to excess calories E66.01 and Chronic obstructive pulmonary disease, unspecified COPD type J44.9 Assessments Encounter Date Diagnosis (ICD Code) Assessment Notes Treatment Notes Treatment Clinical Notes Section Notes 02/29/2024 Acute systolic congestive heart failure (ICD-10 - I50.21) stable with coninuous shortness of breath/ order faxed to [facility] dept 02/29/2024 Morbid obesity due to excess calories (ICD-10 - E66.01) has lost some weight 02/29/2024 Chronic obstructive pulmonary disease, unspecified COPD type (ICD-10 - J44.9) stable Plan Of Treatment Treatment Notes Assessment Notes Acute systolic congestive heart failure stable with coninuous shortness of breath/ order faxed to [facility] de[facility] Morbid obesity due to excess calories bradley s lost some weight Chronic obstructive pulmonar y disease, unspecified COPD type stable Pending Test Test Name Order Date MAMMOGRAM DIGITAL BILATERAL SCREEN 02/28 Next Appt Details Follow Up: 6 Months, Reason: Provider Name:Omid borden, 09/26/2024 07:45:00 AM, [address] [place] [address], [address], [phone], Provider Name:Omid borden, 09/29/2024 02:00:00 PM, [address] [place] [address], [address], [phone], Provider Name:Omid borden, 02/24/2025 07:15:00 AM, [address] [place] [address], [address], [phone], Provider Name:Omid borden, 03/03/2025 02:30:00 PM, [address] [place] [address], [address], [phone], Progress Notes * Vy WAITE LDOB:1945 (78 yo F)Acc No.[id number]:02/29/2024 Patient:?Vy Waite Provider:?Omid Jimenes MD :1945???Age:78 Y???Sex:Female D ate:02/29/2024 Address:[address] [place] [address] Subjective: * Chief Complaints: * ???Comp visit [...] Pets: none. no Travel outside of the [place]. * Medications:?TakingCalcitrio l 0.25 MCG Capsule [...] and allow to dissolve Orally twicea dayNystop 232558 UNIT/GM Powder APPLY ONE APPLICATION EXTERNALLY TWO [...] EYE DAILY NEEDED Ophthalmic Twice a [facility]Taking [facility] Unifine Pentips Plus 31G X 6 MM [...] allow to dissolve Orally twicea dayTaking Nystop 039921 UNIT/GM Powder APPLY ONE APPLICATION EXTERNALLY TWO [...] 36.1 H <30 - ug/mg cr ???Lab:Comprehensive [place]. P iris Fast (Order Date - 02/19/2024) [...] mg/dL ?Urine Blood Negative Negative - ?Specific [place] - Urine 1.010 1.005-1.025 - ?Urine Protein [...] negative , no masses palpable.?FEMALE GENITOURINARY:?done by obstetrician gynecologist.?EXTREMITIES:?no clubbing, cyanosis, or edema.?NEUROLOGIC:?nonfocal, motor strength normal upper and lower extremities, sensory exam intact.? Assessment: * Assessment: 1.?Acute systolic congestive heart failure - I50.21 (Primary)?2.?Morbid obesity due to excess calories - E66.01?3.?Chronic obstructive pulmonary disease, unspecified COPD type - J44.9? Plan: * Treatment: Notes: stable with coninuous shortness of breath/ order faxed to [facility] de[facility]??2.?Morbid obesity due to excess calories? Notes: has lost some weight??3.?Chronic obstructive pulmonary disease, unspecified COPD type? Notes: stable?? * Procedure Codes:? * Follow Up:?6 Months * * Sign off status: Completed true * Provider:?Omid Jimenes MD Date:?1 04/30/2023 Generated for Jeannie grady/Kevin/eTransmitting on:?09/02/2024 01:41 PM EDT History and Physical [...] no masses palpable FEMALE GENITOURINARY: done by obstetrician gynecologist ORAL CAVITY: mucosa moist
--- OUTSIDE RECORDS SUMMARY | 2024-09-02 13:42 | XMS_ITS | Encounter Summary ---
Author Organization [facility] Address [address] [address] Phone Care Team Providers Care Cloth Washer Operator Name Role Phone Omid Jimenes MD Primary Care Provider Encounter Details Date Type Department Care Team (Late Contact Info) Description 09/01/2024 Orders Only [facility] [address] [place] [phone] Lewis Cohen MD [address] [phone] Stage 3a chronic kidney disease (HCC) (Primary Dx); Renal osteodystrophy Social History Tobacco Use Types Packs/Day Years [...] on file Sexual Orientation Not on file documented as of this encounter Plan of Treatment Upcoming Encounters Date Type Department Care Team (Late st Contact Info) Description 09/04/2024 2:15 PM EDT Office Visit [facility] [address] [place] [address] Lewis Cohen MD [address] [phone] Scheduled Orders Name Type Priority Associated Diagnoses Orde r Schedule Comprehensive Metabolic Panel Lab Routine Stage 3a chronic kidney disease (HCC) Renal osteodystrophy Expected: 09/01/2024, Expires: 10/02/2025 Protein, Total, Random Urine w/Creatinine (Protein/Creat Ratio) Lab Routine Stage 3a chronic kidney disease (HCC) Renal osteodystrophy Expected: 09/01/2024, Expires: 10/02/2025 documented as of this encounter Visit Diagnoses Diagnosis Stage 3a chronic kidney disease (HCC)- Primary Renal osteodystrophy documented in this encounter Care Teams Cloth Washer Operator Relationship Specialty Start Date End Date Omid Jimenes MD [address] [place] [address] [address] [place], [place] PCP - General 05/10/20 documented as of this encounter
--- OUTSIDE RECORDS SUMMARY | 2024-09-02 13:43 | XMS_ITS ---
Author Organization Omid Jimenes MD Address [address] [place], [place] [phone] Care Team Providers Care Sorter Packer Name Role Phone Omid Jimenes Primary Care [...] Date Provider Diagnosis Omid Jimenes MD [address] [place] [address] [place] [phone] 03/06/2024 Omid Jimenes Plan Of Treatment Referrals Referral Date Details 03/07/2024 03/07/2024, osteopen ia of hip please eval and treat , Patrice Jay Next Appt Details Provider Name:Omid Akhtar ier, 09/26/2024 07:45:00 AM, [address] [place] [address], [address] [facility], [place], [place], [phone], Provider Name:Omid Akhtar ier, 09/29/2024 02:00:00 PM, [address] [place] [address], [address] [facility], [place], [place], [phone], Provider Name:Omid Akhtar ier, 02/24/2025 07:15:00 AM, [address] [place] [address], [address] [facility], [place], [place], [phone], Provider Name:Omid jor, 03/03/2025 02:30:00 PM, [address] [place] [address], [address] [facility], [place], [place], [phone], Progress Notes * Vy WAITE LDOB:1945 (78 yo F)Acc No.[id number]:03/06/2024 Patient:?Vy Waite :1945???Age:78 Y???Sex:Female Address:[address] [place] [address] Subjective: * Chief Complaints: * ???Bone density results * Medical History:? * Surgical History:? * Hospitalization/Major Diagno stic Procedure:? * Medications:? Objective: Assessment: Plan: * Treatment: * Procedure Codes:? * true * Date:? Generated for Jeannie grady/Kevin/eTransmitting on:?09/02/2024 01:42 PM EDT Consultation Request Notes Referral Date Referring Provider Referred Provider Not es 03/07/2024 Omid Jimenes, Patrice shannon of hip please eval and treat
--- OUTSIDE RECORDS SUMMARY | 2024-09-02 13:43 | XMS_ITS ---
Author Organization [facility] Address [address] [facility] [place] [address] Care Team Providers Care Blast Furnace Helper Name Role Phone Omid Jimenes MD Primary Care Provider Sushila Campos Unavailable [phone] Brittany Montiel Unavailable [phone] Allergies Allergen (clinical drug ingredient) Drug/Non Drug [...] for 1 year Dx: 10/06/2015 Not-Taking Ergocalciferol 85118 UNIT 1 capsule Oral ly for 30 [...] 025 Encounters Encounter Location Date Provider Diagnosis [facility] [address] [address] 07/18/2024 Brittany Montiel Type 2 diabetes mellitus [...] Reason: Provider Name:Sushila brasher, 09/24/2024 02:30:00 PM, [address] [place] [address], [phone], Procedure Notes * Category Sub-Category Detail Notes [...] use of a nail nipper and/or dremel-type shear grinder operator, to a more viable healthy [...] to maintain effectiveness in symptomatic relief - 40088 Keratoma Treatment Parring or Cutting o f [...] instrumentation by the physician of record - 01707 Progress Notes * Vy FISHMAN LDOB:1945 (79 yo F)Acc No.[id number]:07/18/2024 Progress Note Patient:?Vy FISHMAN Haley Provider:?Brittany Monteil DPM :1945???Age:79 Y???Sex:Female D ate:07/18/2024 [facility] Pcp:Omid Jimenes MD Subjective: * Chief Complaints: [...] Cervical disc replacement, 1 day stay. 05/07/2017[facility]-Systemic Gout 9 day stay- Discharged to rehab- 12 days-Went back to [facility] and rehab 10/2018-01/10/2019[facility] Jocelyne- Constipation, swelling, 12/21 [...] multi-density innersoles for 1 year Dx: Ergocalciferol 31628 UNIT Capsule 1 capsule Orally Breo Ellipta [...] innersoles for 1 year Dx: Not-Taking/PRN Ergocalciferol 96347 UNIT Capsule 1 capsule Orally Not-Taking/PRN Breo [...] use of a nail nipper and/or dremel-type shear grinder operator, to a more viable healthy [...] to maintain effectiveness in symptomatic relief - 20193.?Keratoma Treatment:?Parring or Cutting of Benign Hyperkeratotic Lesion(s)?(-56) [...] instrumentation by the physician of record - 65526.? * Procedure Codes:?01464 DEBRI DE NAIL, 6 OR MORE, Modifiers: XS 83330 TRIM SKIN LESIONS, 2 TO 4, Modifiers: [...] Montiel DPM Date:? Generated for Jeannie grady/Kevin/Cony on:?09/02/2024 01:42 PM EDT History and Physical [...]
--- OUTSIDE RECORDS SUMMARY | 2024-09-02 13:43 | XMS_ITS | Clinical Summary ---
Author Organization [facility] Facility Address [address] [address] Care Team Providers Care Hammer Shop Supervisor Name Role Phone Omid Jimenes MD Primary Care Provider Allergies Active Allergy Reactions Criticality Noted Date Comments Atorvastatin Other (see comments) 10/30/2018 Cramps Bacitracin Other (see comments),Swelling 06/15/2017 Cephalexin 06/07/2020 Thinks it may have made rash worse Charentais Melon (Nicaraguan Melon) Rash Low 11/01/2018 Erythromycin Other (see [...] mg by mouth daily 9 Active Tiotropium [place] Monohydrate (Spiriva Respimat) 1.25 MCG/ACT aerosol solution [...] and able she would consider consultation in [place] right now she feels that the pain [...] for shortness of breath. Outpatient management with psychiatric social worker supervisor Dr. Berrios. No current symptoms. Breathing comfortably. [...] & Plan: Patient has been residing at [place] for extended care for some time now. [...] Patient is followed by by an outside compounding technician. She is been maintained on Lasix 40 [...] long-term relief and she will contact the spray painter helper for consideration of a corticosteroid epidural [...] 50% of this 20-minute visit was spent [id number] conversation with the patient and her present coordinating my care with out of her primary care physician as well as her orthopedic surgeon and spray painter helper. Last Assessment & Plan: This continues to [...] of this 29-minute visit was spent in [id number] conversation with the patient and her present [...] Medications are be left unchanged and enlarged wood processing worker on tools and utensils and be used [...] Encounters Date Type Department Care Team Description 09/01/2024 Orders Only [facility] [address] [phone] Lewis Cohen MD Stage 3a chronic kidney disease (HCC) (Primary Dx); Renal osteodystrophy 08/20/2024 Orders Only [facility] [address] [phone] Estefania Moreno MA Type 2 diabetes mellitus with diabetic chronic kidney disease (HCC) (Primary Dx); Stage 3 chronic kidney disease, not otherwise specified (HCC) 08/20/2024 Office Communication [facility] [address] [phone] Marlene Holley 07/25/2024 Refill [facility] [address] [place] [phone] Lewis Cohen MD from Last 3 Months Immunizations Immunization Administration Dates Next Due Influenza (IM) Preservative Free 02/10/2021,11/0 09/2016,03/20/2016,01/13/2015 Moderna SARS-COV-2 12/14/2020 Pneumococcal, Unspecified 06/29/2015,02/17/2013, [...] Visit [facility] the [address] [place] [address] Lewis Cohen MD [address] [facility] [address] [place] [address] Health Maintenance Due Date Last [...] mg/dl PVNMA 02/02/2020 us [facility] [id number] LICITED RESULTS Final Result PVNMA from Last 3 Months or Most Recently Relevant to Health Maintenance Insurance Medicare [facility] Medicare [facility] Care Teams Hammer Shop Supervisor Relationship Specialty Start Date End Date Omid Jimenes MD [address] [place] [address] [id number] [place] PCP - General 05/10/20
[2024-09-02 14:11] LABS: Basophils Percent Auto 0.4 % (0-2); Eosinophils Absolute Auto 0.1 X10*3/uL (0.0-0.4); Eosinophils Percent Auto 1.3 % (0-4); Hematocrit 37.7 % (37.0-47.0); Imm Gran Abs Auto 0.05 X10*3/uL (0.00-0.03); Imm Gran Pct Auto 0.5 % (0.0-0.4); Lymphocytes Absolute Auto 1.4 X10*3/uL (1.2-4.9); Lymphocytes Percent Auto 14.1 % (20-40); Mean Corpuscular HGB Conc 31.8 g/dl (31.0-35.0); Mean Corpuscular Hemoglobin 31.9 pg (27.0-33.0); Mean Corpuscular Volume 100.3 fL (80.0-98.0); Mean Platelet Volume 10.2 fL (9.4-12.3); Monocytes Absolute Auto 0.7 X10*3/uL (0.1-1.2); Monocytes Percent Auto 6.5 % (2-11); Neutrophils Absolute Auto 7.7 x10*3/uL (2.0-8.3); Neutrophils Percent Auto 77.2 % (45-73); Platelet Count 286 X10*3/uL (160-400); Red Blood Count 3.76 X10*6/uL (4.20-5.50); Red Cell Distribution Width 14.9 % (11.0-16.0)
[2024-09-02 14:56] LABS: Anion Gap 14 (12-20); Blood Urea Nitrogen 23 mg/dL (9-16); Calcium 9.6 mg/dL (8.4-10.2); Carbon Dioxide 32 mmol/L (22-29); Chloride 101 mmol/L (96-108); Estimated Glomerular Filt Rate 39; Sodium 143 mmol/L (135-145)
== END 2024-09-02 12:17 | disposition home or self-care (01) ==
LOC: HO.LAB 12:16
PROVIDERS: PCP Internal Medicine; Visit Provider Internal Medicine Nephrology
DX: E11.22 Type 2 diabetes mellitus with diabetic chronic kidney disease (principal); N18.30 Chronic kidney disease, stage 3 unspecified
CPT/HCPCS: 36415; 80051; 82310; 82565; 84520; 85025

== ENCOUNTER 2024-09-10 09:53 | Outpatient (AMB) | payer MEDICARE, OTHER, SELFPAY ==
--- NOTE | 2024-09-10 09:58 | A.OFFVIS_ITS ---
Vital Signs 09/10/24 10:00 Height 5 ft 2.65 in Weight 250 lb BMI 44.8 BP 140/65 H Blood Pressure Location Lt brachial Position Sitting Respiration 18 Pulse 98 Pulse Source Pulse Oximeter Intake Visit Reasons: Pill count/ random UDS Allergies cephalexin [From Keflex] Allergy (Severe, Verified 09/10/24 10:07) Itching pravastatin [Pravachol] Allergy (Severe, Verified 09/10/24 10:07) cramps bacitracin Adverse Reaction (Severe, Verified 09/10/24 10:07) eye swelling dexamethasone [TobraDex] Adverse Reaction (Severe, Verified 09/10/24 10:07) redness swelling tobramycin [TobraDex] Adverse Reaction (Severe, Verified 09/10/24 10:07) redness swelling Sulfa (Sulfonamide Antibiotics) Adverse Reaction (Intermediate, Verified 09/10/24 10:07) GI upset atorvastatin [From Lipitor] Adverse Reaction (Verified 09/10/24 10:07) Unknown Beef Containing Products Adverse Reaction (Verified 09/10/24 10:07) Unknown erythromycin base Adverse Reaction (Verified 09/10/24 10:07) Unknown Penicillins [PCN] Adverse Reaction (Verified 09/10/24 10:07) Unknown sulfacetamide [From Sulfacet-R] Adverse Reaction (Verified 09/10/24 10:07) Unknown sulfur [From Sulfacet-R] Adverse Reaction (Verified 09/10/24 10:07) Unknown topiramate [From Topamax] Adverse Reaction (Verified 09/10/24 10:07) Unknown Medication List - Last Reconciled 09/10/24 by Naz Simpson LPN albuterol sulfate 90 mcg/actuation 2 puffs PO Q4H albuterol sulfate 2.5 mg (3 mL) inhalation Q4H PRN allopurinol 100 mg PO DAILY aspirin 81 mg PO DAILY atorvastatin 20 mg PO DAILY azelastine-fluticasone 137-50 mcg/spray 1 spray intranasal BID 30 days bepotastine besilate 1.5% (Bepreve) 1 drp ophthalmic (eye) DAILY PRN calcitriol mcg PO chlorhexidine gluconate 0.12% 15 mL buccal DAILY 30 days cholecalciferol (vitamin D3) (Vitamin D3) 25 mcg PO DAILY doxycycline hyclate 100 mg PO BID 10 days duloxetine 60 mg PO DAILY epinephrine 0.3 mL IM ONCE PRN ferrous sulfate (FeroSul) 325 mg PO DAILY fluticasone propionate 220 mcg/actuation 2 puffs inhalation BID furosemide (Lasix) 80 mg PO BID 30 days gabapentin 100 mg PO .AM gabapentin 400 mg PO BEDTIME hydrocodone-acetaminophen 7.5-325 mg 1 tab PO BID PRN insulin glargine units subcut levothyroxine 75 mcg PO DAILY meclizine 25 mg PO BID PRN mepolizumab 100 mg subcut Q4W nystatin 1 appl topical BID omeprazole 20 mg PO DAILY potassium chloride ER 10 mEq PO BID Saccharomyces boulardii (Florastor) 250 mg PO BID sitagliptin phosphate 100 mg PO DAILY tiotropium bromide 1.25 mcg/actuation inhalation tirzepatide (Mounjaro) 2.5 mg subcut QWEEK trazodone 50 mg PO BEDTIME PRN valsartan 40 mg PO DAILY HPI HPI Pill count/ random UDS: Details: History of Present Illness The patient is an 79-year-old female presenting with chronic pain management and left shoulder pain treatment. She reports over a week of ongoing left-side pain from the waist down. Her current regimen of pain medication provides limited relief, and sitting exacerbates the pain. Morning stretching offers some general relief, but its efficacy for these specific episodes is unclear. The patient regularly visits [facility] for physical therapy, which she finds beneficial. Additionally, she experiences chronic shoulder pain, characterized by cracks when moving her arm. Her last shoulder injection occurred seven months ago in February, which she found helpful and subsequently agreed to another today despite concerns over discomfort from the injection procedure. Pain Description - Onset: Chronic left side pain for over a week; shoulder pain for several months. - Quality: Persistent pain from the waist down, with shoulder cracking sounds. - Location: Left side from waist down and left shoulder. - Exacerbating Factors: Sitting increases left-side pain; reluctance over injection due to anticipated pain. - Relieving Factors: Morning stretches provide some relief; shoulder injections are helpful. Physical Exam - Musculoskeletal- Left shoulder assessed for further intervention with injection. Pain Management - Affect: Limited pain medication efficacy impacts mood; apprehension about lima ulder injection. - Analgesia: Currently on pain medication with limited relief; last shoulder injection in February. - Adverse Effects: None reported. - Activities of Daily Living: Pain when sitting; stretches provide limited relief. - Aberrant Drug Related Behaviors: Pill count consistent with prescription, no misuse reported. [facility] Medical History (Updated 04/18/24 @ 05:36 by Sae Hurst) COPD (chronic obstructive pulmonary disease) Morbid obesity Acute systolic congestive heart failure Osteoporosis Dyspnea Chronic pain syndrome Gouty arthritis Arthritis of both glenohumeral joints Neurogenic claudication due to lumbar spinal stenosis Asthma CLEVE on CPAP Chronic restrictive lung disease Tracheitis Dyspnea Surgical History Status post cervical spinal fusion History of eyelid surgery History of knee replacement History of cholecystectomy Family History Father HTN (hypertension) Stroke Diabetes Mother Atrial fibrillation HTN (hypertension) Social History Alcohol intake: never Patient Tobacco Use Status: Former Tobacco user Tobacco use type: Cigarette Years Smoked: 20 years Second Hand Smoke Exposure: No Physical Exam Vital Signs: Last Vital Signs Pulse 98 09/10/24 10:00 Resp 18 09/10/24 10:00 BP 140/65 H 09/10/24 10:00 BMI result Body Mass Index 44.8 Office Procedures AMB Joint Injection/Aspiration Joint Injection/Aspiration Primary Site: left shoulder Prep: site was prepped using sterile technique Injected: 40 mg of, Kenalog, with 3 mL of (ropivacaine 0.5%) and in the joint Approach Used: posterolateral Procedure: The patient tolerated the procedure well Coding Details: US image saved - Glenohumeral with ultrasound guidance Procedure code (CPT) selection complete Assessment & Plan Assessment & Plan (1) Intractable back pain: Code(s): M54.9 - Dorsalgia, unspecified Category: Medical (2) Bilateral shoulder pain: Code(s): M25.511 - Pain in right shoulder; M25.512 - Pain in left shoulder Category: Medical (3) Chronic pain syndrome: Comment: Requiring narcotic use Code(s): G89.4 - Chronic pain syndrome Category: Medical Plan Plan - Administered left shoulder injection using ultrasound for immediate pain management. - Prescription refill for the patient's pain medication to ensure consistent management. - Issue referral for physical therapy at [facility] for specific exercises as discussed, providing the necessary order. Patient was informed and verbally consented to the use of an ambient scribe for clinic note documentation during this visit. Discussion Notes We thoroughly discussed the patient's chronic pain management involving a shoulder injection today and the continuation of her current pain medication. We reviewed the limited time elapsed since her last shoulder injection, and the patient agreed to undergo another injection for the relief it previously provi ded. I explained the procedure using ultrasound guidance, and the patient provided consent despite apprehension about discomfort. I also emphasized the ongoing benefits of physical therapy, providing an order for her local physical therapy group at [facility]. The patient is to receive a medication refill to maintain pain management and will follow up with therapy sessions. Patient Instructions - Take prescribed pain medication as directed. - Attend scheduled physical therapy sessions at [facility]. - Follow up promptly with any new pain concerns or if issues persist. - Engage in regular stretching routines as suggested by physical therapy. - Report any adverse reactions to medication immediately. Medications: Refilled hydrocodone-acetaminophen 7.5-325 mg Partial Fill upon patient request. 1 tab PO BID PRN 60 tabs 0RF pain Coding Level of Care Code Est Pt Level 4 (28428) Diagnoses Intractable back pain M54.9 Bilateral shoulder pain M25.511; M25.512 Chronic pain syndrome G89.4 CPT Codes Coding - Joint 8: 23587 - Glenohumeral with ultrasound guidance ([id number])
[2024-09-10 10:00] VITALS: BP 140/65; PULSE 98; RESP 18; BMI 44.8
--- OUTSIDE RECORDS SUMMARY | 2024-09-10 10:41 | XMS_ITS | Patient Health Record ---
Author Organization Omid Jimenes MD Address [address] [place] [id number] Care Team Providers Care Cat Wagon Operator Name Role Phone Omid Jimenes Primary Care [...] ff Reviewed date:02/19/2024 08:34:52 PM Interpretation: Performing Lab:[facility], [address] [place] [phone] Notes/Report: White Blood Count 10.3 4.8-10.8 X10*3/uL [...] NRBC Abs Auto 0.000 0.0-0.012 X10*3/uL Comprehensive [place]. Panel [facility] Reviewed date:02/19/2024 08:44:28 PM Interpretation: Performing Lab:[facility], [address] [place] [phone] Notes/Report: Sodium 141 135-145 mmol/L Potassium 4.4 3.3-5.1 mmol/L Chloride 102 96-108 mmol/L Carbon Dioxide 27 22-29 mmol/L Anion Gap 16 12-20 Blood Urea Nitrogen 28 9-16 mg/dL Creatinine 1.40 0.5-1.4 mg/dL Estimated Glomerular Filt Rate 36 NOTE: For -Guaman[place] individuals, multiply the result by 1.210. Chronic [...] PROFILE Reviewed date:02/19/2024 08:33:19 PM Interpretation: Performing Lab:[facility], [address] [place] [phone] Notes/Report: Iron 84 30-160 mcg/dL Total Iron Binding Capacity 256 228-428 mcg/dL Percent Iron Saturation 33 15-50 % Unsaturated Iron Binding 172 Lipid Panel Reviewed date:02/19/2024 08:24:06 PM Interpretation: Performing Lab:[facility], [address] [place] [phone] Notes/Report: Triglycerides 134 <150 mg/dL Desirable Triglyceride: [...] Total Reviewed date:02/19/2024 08:32:16 PM Interpretation: Performing Lab:[facility], [address] [place] [phone] Notes/Report: Vitamin D 25-OH Total 37.7 >30 [...] T4 Reviewed date:02/19/2024 08:33:11 PM Interpretation: Performing Lab:[facility], [address] [place] [phone] Notes/Report: TSH reflex Free T4 3.76 0.32-4.0 uIU/mL Microalbumin, Random Reviewed date:02/19/2024 08:24:16 PM Interpretation: Performing Lab:[facility], [address] [place] [phone] Notes/Report: Creatinine Urine 88.42 Microalbumin Urine 32.0 Microalbum/Creatinine Ratio Ur 36.1 <30 ug/mg cr Albumin/Creatinine Ratio Reference Ranges: Normal: < 30 ug/mg creatinine Microalbuminuria: 30 - 300 ug/mg creatinine Clinical Albuminuria: > 300 ug/mg creatinine Hemoglobin A1c Reviewed date:02/19/2024 08:36:41 PM Interpretation: Performing Lab:[facility], [address] [place] [phone] Notes/Report: Hemoglobin A1c % 5.9 <6.0 % [...] average glucose, using the formula of the S0W-Kahpvme Average Glucose study (ADAG), Diabetes Care, Vol.31,#8, Nov. 2007 UA ClnCatch+Micro w/rflx Cul t Reviewed date:02/19/2024 08:35:51 PM Interpretation: Performing Lab:[facility], [address] [place] [phone] Notes/Report: Urine, Clean Catch Color Urine Yellow Appearance Urine Clear PH 7.0 5.0-9.0 Glucose Urine UA Negative Negative mg/dL Urine Blood Negative Negative Specific Crane - Urine 1.010 1.005-1.025 Urine Protein Negative Neg-Trace mg/dL Urine Ketones Negative Negative mg/dL Nitrite Urine Negative Negative Leukocyte Esterase Urine Small (1+) Negative RBC Urine 0-2 0-2 /HPF WBC Urine 6-10 0-5 /HPF Squamous Epithelial Cell Urine 11-20 0-2 /HPF Bacteria Urine 1+ None Seen Hyaline Casts Urine 6-10 0-2 /LPF Hold Gold Reviewed date:02/19/2024 05:44:22 PM Interpretation: Performing Lab:[address] [phone] Notes/Report: Hold Gold See Note Specimen held untested for 24 hours; Call to request Chemistry testing. Urine Culture Reviewed date:02/20/2024 05:04:39 PM Interpretation: Performing Lab:[facility], [address] [place] [address] [place] [address] Notes/Report: Urine Culture Report Result Urine Culture 50,000 to 100,000 cfu/ml Urine Culture Mixed bacterial newton a characteristic of Urine Culture urogenital contamination. XR DEXA axial skeleton Reviewed date:02/29/2024 05:11:35 PM Interpretation: Performing Lab: Notes/Report: [address] [place] [address] Mammography Report Signed Patient: Vy Fishman MR#: [id number] 121 : 1945 Acct:[id number] Age/Sex: 78 / F ADM Date: 02/28/24 Loc: HO.MAMMO Attending Dr: Omid Jimenes MD Ordering Physician: Omid Jimenes MD Results: Date of Service: 02/28/24 Follow Up: Procedure(s): XR DEXA axial skeleton Accession Number(s): [id number] cc: Omid Jimenes MD EXAMINATION: BONE DENSITOMETRY CLINICAL INDICATION: Age-related osteoporosis without current pathological fracture. COMPARISON: This is the patient's baseline examination. TECHNIQUE: Using a [employer] DXA System (software version: 13.1) manufactured by [employer], dual-energy x-ray absorptiometry was performed of the [...] 02/29/24 1219 DD/ 1300 TD/TT: 02/28/24 1320 Fabric Machine Operator: [facility] [address] [place], [place] [address] Mammography Report Signed Patient: Vy Fishman MR#: [id number] 121 : 1945 Acct:[id number] Age/Sex: 78 / F ADM Date: 02/28/24 Loc: HO.MAMMO Attending Dr: Omid Jimenes MD Ordering Physician: Omid Jimense MD Results: Date of Service: 02/28/24 Follow Up: Procedure(s): XR DEX A axial skeleton Accession Number(s): [id number] cc: Omid Jimenes MD EXAMINATION: BONE DENSITOMETRY CLINICAL INDICATION: Age-related osteoporosis without current pathological fracture. COMPARISON: This is the patient' s baseline examination. TECHNIQUE: Using a [employer] DXA System (software version: 13.1) manufactured by [employer], dual-energy x-ray absorptiometry was performed of the [...] 02/29/24 1219 DD/ 1300 TD/TT: 02/28/24 1320 Fabric Machine Operator: MM tomosynthesis screening B I Reviewed date:05/25/2024 05:17:35 PM Interpretation: Performing Lab: Notes/Report: [place] [facility] [address] [place] [address] Mammography Report Signed Patient: Vy Fishman MR#: [id number] 121 : 1945 Acct:[id number] Age/Sex: 78 / F ADM Date: 05/14/24 Loc: HO.MAMMO Attending Dr: Omid Jimenes MD Ordering Physician: Omid Jimenes MD Results: 2Be nign Findings Date of Service: 05/14/24 Follow Up: 1 Year From [facility] Mammogram Procedure(s): MM tomosynthesis screening BI Accession Number(s): [id number] cc: Omid Jimenes MD EXAMINATION: MM SCREENING [...] 05/25/24 1039 DD/ 1445 TD/TT: 05/14/24 1520 Fabric Machine Operator: [facility] [address] [place] [address] Mammography Report Signed Patient: Vy Fishman MR#: [id number] 121 : 1945 Acct:[id number] Age/Sex: 78 / F ADM Date: 05/14/24 Loc: HO.MAMMO Attending Dr: Omid Jimenes MD Ordering Physician: Omid Jimenes MD Results: 2Be nign Findings Date of Service: 05/14/24 Follow Up: 1 Year From [facility] Mammogram Procedure(s): MM tomosynthesis screening BI Accession Number(s): [id number] cc: Omid Jimenes MD EXAMINATION: MM SCREENING [...] 05/25/24 1039 DD/ 1445 TD/TT: 05/14/24 1520 Fabric Machine Operator: Reason For Referral Reason osteopenia of hip [...] day for 7 days 11/30/2023 Active Nystop 287449 UNIT/GM APPLY ONE APPLICAT ION EXTERNALLY TWO [...] Problem Status W/U Status Risk Notes Problem 47030160 Hemoptysis (R04.2) Active confirmed Problem 40429308 Vitamin D defici ency (E55.9) Active confirmed Problem 50727530 Hypercalcemia (E83.52) Active confirme d Problem 513482827 Other specified menopausal and perimenopausal disorders (N95.8) Active confirmed Problem 658803246 Body mass index (BMI) 45.0-49.9, adult (Z68.42) Active confirmed Problem 8183719 Arthritis (M19.90) Active confirmed Problem 5934271 Diastolic dysfun ction (I51.9) Active confirmed Problem 795560437 Tubular adenoma of colon (D12.6) Active confirmed Problem 03034339 Essential hypert ension (I10) Active confirmed Problem 116944729 Acquired hypothyroidism (E03.9) Active confirmed Problem 029348007 Mild intermitten t asthma without complication (J45.20) Active confirmed Problem 28350300 Type 2 diabetes mellitus without complication (E11.9) Active confirmed Problem 3291673 Aortic valve dis order (I35.9) Active confirmed Problem 878920513 Morbid obesity d ue to excess calories (E66.01) Active confirmed Problem 06874559 Chronic obstruct manolo pulmonary disease, unspecified COPD type (J44.9) Active confirmed Problem 997928933 History of hemat uria (Z87.448) Active confirmed Problem 952701988 Acute systolic congestive heart failure (I50.21) Active confirmed Problem 617900759605068 Moderate persist ent asthma with acute exacerbation (J45.41) Active confirmed Problem 373442069 Iron deficiency anemia due to chronic blood loss (D50.0) Active confirmed Problem 496338695 GERD (gastroesop hageal reflux disease) (K21.9) Active confirmed Problem 95270531 Aortic valve terrence nosis, unspecified etiology (I35.0) Active confirmed Problem 82429896 Liver cyst (K76.89) Active confirmed Problem 090384591 Pure hypercholesterolemia (E78.00) Active confirmed Problem 407378146 OAB (overactive bladder) (N32.81) Active confirmed Problem 45397581 CLEVE (obstructive sleep apnea) (G47.33) Active confirmed Problem 890373548 Hand arthritis (M19.049) Active confirmed Problem 743016605 Arthritis pain o f hand (M19.049) Active confirmed Problem 415121139 Arthritis pain o f shoulder (M19.019) Active confirmed Problem H/O aortic valve replacement (Z95.2) Active confirmed Problem 360340050 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) Active confirmed Problem 516409666 Acute constipati on (K59.00) Active confirmed Vital [...] Omid Jimenes MD [address] [place] [id number] 11/26/2023 Omid Jimenes Type 2 diabetes kel itus without complication E11.9 and Postmenopausal osteoporosis M81.0 Omid Jimenes MD [address] [place] [address] [id number] 11/30/2023 Omid Jimenes Acute cellulitis L03 .90 Omid Jimenes MD [address] [place] [address] [id number] 12/17/2023 Omid Jimenes Acute constipation K 59.00 ; Acute cellulitis L03.90 and Type 2 diabetes mellitus without complication E11.9 Omid Jimenes MD [address] [place] [address] [id number] 02/19/2024 Omid Jimenes Type 2 diabetes kel itus without complication E11.9 ; Acquired hypothyroidism E03.9 ; Essential hypertension I10 ; Vitamin D deficiency E55.9 and Iron deficiency anemia due to chronic blood loss D50.0 Omid Jimenes MD [address] [place] [address] [id number] 02/29/2024 Omid Jimenes Acute systolic conge stive heart failure I50.21 ; Morbid obesity due to excess calories E66.01 and Chronic obstructive pulmonary disease, unspecified COPD type J44.9 Omid Jimenes MD [address] [place] [address] [id number] 09/20/2023 Omid Jimenes MD [address] [place] [address] [id number] 10/30/2023 Omid Jimenes Type 2 diabetes kel itus without complication E11.9 Omid Jimenes MD [address] [place] [address] [id number] 12/10/2023 Omid Jimenes MD [address] [place] [address] [id number] 01/01/2024 Omid Jimenes MD [address] [place] [address] [id number] 02/07/2024 Omid Jimenes Type 2 diabetes kel [...] Omid Jimenes MD [address] [place] [address] [id number] 03/06/2024 Omid Jimenes MD [address] [place] [address] [id number] 03/07/2024 Omid Jimenes Breast cancer screen ing Z12.31 Assessments Encounter Date Diagnosis (ICD Code) Assessment Notes Treatment Notes Treatment Clinical Notes Section Notes 11/26/2023 Type 2 diabetes mellitus without complication (ICD-10 - E11.9) will continue current regiment 11/26/2023 Postmenopausal osteoporosis (ICD-10 - M81.0) pending diagnostic testing, THE BONE DENSITY ORDER HAS BEEN FAXED TO [facility] FOR SCHEDULING 11/30/2023 Acute cellulitis (ICD-10 [...] coninuous shortness of breath/ order faxed to [facility] dept 02/29/2024 Morbid obesity due t [...] Name:Omid Akhtar ier, 09/26/2024 07:45:00 AM, [address], [address], [place], [phone], Provider Name:Omid Akhtar ier, 09/29/2024 02:00:00 PM, [address], [address], [place], [phone], Provider Name:Omid Akhtar ier, 02/24/2025 07:15:00 AM, [address], [address], [place], [phone], Provider Name:Omid Akhtar ier, 03/03/2025 02:30:00 PM, [address] [address], [address], [place], [phone], Insurance Providers Payer Name Payer Address Payer Phone Subscriber Number Group Number Insured Name Patient Relationship to Insured Coverage Start Date Coverage End Date MEDICARE NHIC [address] [place] [address] [id number] Vy Fishman Self - patient is the insured [facility] [address] [place] [phone] [id number] Vy Fishman Self - patient is the insured Medical (General) History Medical History History ICD Code Endoscopy and colonoscopy do ne 05/2007; both done 01/30/2014 repeat in 5 : 03/28/22 colonocopy awaiting path hematuria work up in 20's Needs yearly echo - DX Aortic Stenosis ( done 06/2015) ct abdomen 12/21 at [facility] normal
--- OUTSIDE RECORDS SUMMARY | 2024-09-10 10:42 | XMS_ITS ---
Author Organization Omid Jimenes MD Address [address] [place] [phone] Care Team Providers Care Terrazzo Worker Apprentice Name Role Phone Omid Jimenes Primary Care Provider REASON FOR VISIT mammogram order updated Encounters Encounter Location Date Provider Diagnosis Omid Jimenes MD [address] [place] [id number] 03/07/2024 Omid Jimenes Breast cancer screening Z12.31 Assessments Encounter Date Diagnosis (ICD Code) Assessment Notes Treatment Notes Treatment Clinical Notes Section Notes 03/07/2024 Breast cancer screening (ICD-10 - Z12.31) Plan Of Treatment Pending Test Test Name Order Date MAMMOGRAM DIGITAL BILATERAL SCREEN 03/07 Next Appt Details Provider Name:Omid Akhtar ier, 09/26/2024 07:45:00 AM, [address], [address], [place], [place], [id number], Provider Name:Omid Akhtar ier, 09/29/2024 02:00:00 PM, [address] [place] [address] Drive, [address], [place], [place], [phone], Provider Name:Omid Akhtar ier, 02/24/2025 07:15:00 AM, [address] [place] [address], [address], [place], [place], [phone], Provider Name:Omid Akhtar ier, 03/03/2025 02:30:00 PM, [address] [place] [address], [address], [place], [place], [phone], Progress Notes * Vy WAITE LDOB:1945 (78 yo F)Acc No.[id number]:03/07/2024 Patient:?Vy Waite L :1945???Age:78 Y???Sex:Female Address:[address] [place] [address] Subjective: * Chief Complaints: * ???Mammogram order updated * Medical History:? * Surgical History:? * Hospitalization/Major Diagno stic Procedure:? * Medications:? Objective: Assessment: * Assessment: 1.?Breast cancer screening - Z12.31? Plan: * Treatment: * Procedure Codes:? * true * Date:? Generated for Jeannie grady/Kevin/eTransmitting on:?09/10/2024 10:42 AM EDT
--- OUTSIDE RECORDS SUMMARY | 2024-09-10 10:42 | XMS_ITS | Patient Health Record ---
Author Organization [facility] Address [address] [place] [address] Care Team Providers Care Systems Software Manager Name Role Phone Omid Jimenes MD Primary Care Provider Sushila Campos Unavailable [phone] Alexis Martinez Unavailable [phone] Brittany Montiel Unavailable [phone] Allergies Allergen (clinical drug ingredient) Drug/Non Drug [...] for 1 year Dx: 10/06/2015 Not-Taking Ergocalciferol 67250 UNIT 1 capsule Oral ly for 30 [...] Status Risk Notes Problem Acquired hallux valgus (79762730) Hallux valgus (acquired), left foot (M20.12) Active confirmed Problem Polyneuropathy due to diabetes mellitus type I (120847377) Type 1 diabetes mellitus with diabetic polyneuropathy (E10.42) Active confirmed Problem Polyneuropathy due to type 2 diabetes mellitus (700426414) Type 2 diabetes mellitus with diabetic polyneuropathy (E11.42) Active confirmed Problem Acquired hallux valgus (21923916) Hallux valgus (acquired), right foot (M20.11) Active confirmed Problem Acquired hammer toe of right foot (8067325965531859 ) Other hammer toe(s) (acquired), right foot (M20.41) Active confirmed Problem Acquired hammer toe of left foot (7592727078914041 ) Other hammer toe(s) (acquired), left foot (M20.42) Active confirmed Problem Polyneuropathy due to diabetes mellitus type I (967260023) Type 1 diabetes mellitus with diabetic polyneuropathy (E10.42) Active confirmed Vital Signs Blood pressure diastolic 62 mm Hg 07/18/2024 Height 5 ft 3 in in 07/18/2024 Blood pressure systolic 130 mm Hg 07/18/2024 Weight 257 lbs 07/18/2024 BMI 45.52 kg/m2 07/18/2024 Procedures Procedure Date Ordered Date Performed Result Body Sit e 27826-GTOPNFO NAIL, 6 OR MORE 03/06/2024 N/A 08808-AEQE SKIN LESIONS, 2 TO 4 03/06/2024 N/A 43931-PQARHVR NAIL, 6 OR MORE 05/12/2024 N/A 02593-BJSM SKIN LESIONS, 2 TO 4 05/12/2024 N/A Encounters Encounter Location Date Provider Diagnosis [address] [address] 10/08/2023 Alexis Martinez Type 1 diabetes mellitus [...] M76.61 and Achilles tendinitis, left leg M76.[address] [address] 12/27/2023 Alexis Martinez Type 1 diabetes mellitus [...] M76.61 and Achilles tendinitis, left leg M76.[address] [address] 03/06/2024 Sushila Heredia Type 1 diabetes mellitus with diabetic polyneuropathy E10.42 and Tinea unguium B35.[address] [address] 05/12/2024 Sushila Heredia Type 2 diabetes mellitus with diabetic polyneuropathy E11.42 and Tinea unguium B35.[address] [address] 07/18/2024 Brittany Montiel Type 2 diabetes mellitus with diabetic polyneuropathy E11.42 ; Other hammer toe(s) (acquired), right foot M20.41 ; Tinea unguium B35.1 ; Other hammer toe(s) (acquired), left foot M20.42 and Pre-ulcerative calluses L84 [address] [address] 12/10/2023 Alexis Martinez Assessments Encounter Date Diagnosis [...] X ray : Foot, right 3V 04/10/2022 26886-PKJLGNX NAIL, 6 OR MORE 03/06/2024 76699-IHVKELX NAIL, 6 OR MORE 05/12/2024 94660-TIUZPKH NAIL, 6 OR MORE 10/04/2016 78374-XHGERZH NAIL, 6 OR MORE 04/04/2017 21846-PJUYPQL NAIL, 6 OR MORE 10/03/2017 62096-BUVOHPB NAIL, 6 OR MORE 04/08/2018 57650-MEIWPPK NAIL, 6 OR MORE 04/03/2013 33171-ZHOGFYX NAIL, 6 OR MORE 07/10/2013 28540-ZUQZNUA NAIL, 6 OR MORE 10/16/2013 69765-XPDJWPF NAIL, 6 OR MORE 01/21/2014 51330-QFSIQNU NAIL, 6 OR MORE 06/04/2014 68221-BXQJOPN NAIL, 6 OR MORE 10/05/2014 49824-AQPWKSV NAIL, 6 OR MORE 01/06/2015 14487-YLITNZH NAIL, 6 OR MORE 04/07/2015 03888-CIKRXOY NAIL, 6 OR MORE 10/06/2015 57248-JANAMMB NAIL, 6 OR MORE 04/05/2016 21898-NXWFCVY NAIL, 1-5 10/30/2012 21240-DSOJBHK NAIL, 1-5 01/16/2013 13767-INMRFKE NAIL, 1-5 09/05/2012 72862-KUJCQZX NAIL, 1-5 07/18/2012 58632-KQDNRQG NAIL, 1-5 07/31/2012 67606-Srnqocgn Plate 07/31/2012 30902-Tknoxaxa Plate 09/05/2012 50408-Umtimulr Plate 07/18/2012 16755-Wfghvena Plate 10/03/2017 53813-Tgwbnwqu Plate 10/16/2013 85146-Ybpiczuv Plate 04/04/2017 68531-MBFN SKIN LESIONS, OVER 4 07/19/19 13 04652-RNDK SKIN LESIONS, OVER 4 09/06/19 13 97340-JTBQ SKIN LESIONS, OVER 4 08/01/19 13 41956-RMHX SKIN LESIONS, OVER 4 07/11/19 14 53915-LFCA SKIN LESIONS, OVER 4 01/17/20 13 84051-XJWL SKIN LESIONS, OVER 4 04/03/20 13 45512-PIJV SKIN LESIONS, OVER 4 04/05/20 16 90517-KBUU SKIN LESIONS, OVER 4 10/05/19 17 29573-OZEW SKIN LESIONS, OVER 4 10/06/19 16 63178-YBSD SKIN LESIONS, OVER 4 04/07/20 15 42807-KPBE SKIN LESIONS, OVER 4 01/07/20 15 69236-FPOU SKIN LESIONS, OVER 4 10/06/19 15 24016-SBUM SKIN LESIONS, OVER 4 06/04/19 15 23270-BQIB SKIN LESIONS, OVER 4 01/22/20 14 06320-IONI SKIN LESIONS, OVER 4 10/17/19 14 44289-LRHH SKIN LESIONS, 2 TO 4 04/04/20 17 69556-DBHA SKIN LESIONS, 2 TO 4 10/04/19 18 17755-EJSS SKIN LESIONS, 2 TO 4 10/08/19 19 25666-UIXX SKIN LESIONS, 2 TO 4 01/28/20 19 56753-CUFO SKIN LESIONS, 2 TO 4 04/09/20 19 45159-JZWZ SKIN LESIONS, 2 TO 4 06/12/19 20 72933-ZIJG SKIN LESIONS, 2 TO 4 10/13/19 20 05949-ZRKQ SKIN LESIONS, 2 TO 4 12/15/19 20 47368-CWDA SKIN LESIONS, 2 TO 4 02/16/20 20 25019-LGOC SKIN LESIONS, 2 TO 4 05/13/19 21 27255-EKRH SKIN LESIONS, 2 TO 4 08/12/19 21 28810-TTZJ SKIN LESIONS, 2 TO 4 10/19/19 21 04238-PAPA SKIN LESIONS, 2 TO 4 12/23/19 21 51132-GTOF SKIN LESIONS, 2 TO 4 02/24/20 21 86065-ZFVH SKIN LESIONS, 2 TO 4 05/09/19 22 85893-YAED SKIN LESIONS, 2 TO 4 07/15/19 22 59992-PGWN SKIN LESIONS, 2 TO 4 05/12/19 25 74377-EXTG SKIN LESIONS, 2 TO 4 03/06/20 24 36302-UOOJ SKIN LESIONS, 2 TO 4 04/08/20 18 48546-LVEK NAIL(S) 01/16/2013 91228-ENYQ NAIL(S) 10/30/2012 Next Appt Details Provider Name:Sushila Garcia sameera, 09/24/2024 02:30:00 PM, [address] [place], [address], Insurance Providers Payer Name Payer Address Payer Phone Subscriber Number Group Number Insured Name Patient Relationship to Insured Coverage Start Date Coverage End Date Medicare National [employer] [address] [facility] [phone] [id number] Vy Fishman Self - patient is the insured [employer] ([facility] [address] [place] [address] [id number] Vy Fishman Self - patient is the insured for Life [address] [place] [address] [id number] LouloukassyVy Self - patient is the insured [...]
--- OUTSIDE RECORDS SUMMARY | 2024-09-10 10:42 | XMS_ITS ---
Author Organization [facility] Address [address] [facility] [place] [address] Care Team Providers Care Travel Registered Nurse Nicu Name Role Phone Omid Jimenes MD Primary Care Provider Sushila Campos Unavailable [phone] Allergies Allergen (clinical drug ingredient) Drug/Non Drug [...] for 1 year Dx: 10/06/2015 Not-Taking Ergocalciferol 95727 UNIT 1 capsule Oral ly for 30 [...] Ordered Date Performed Result Body Sit e 57511-ZXTENDK NAIL, 6 OR MORE 05/12/2024 N/A 14162-EIQG SKIN LESIONS, 2 TO 4 05/12/2024 N/A Encounters Encounter Location Date Provider Diagnosis [facility] [place] [address] [place] [address] 05/12/2024 Sushila Heredia Type 2 diabetes mellitus with diabetic polyneuropathy E11.42 and Tinea unguium B35.1 Assessments Encounter Date Diagnosis (ICD Code) Assessment Notes Treatment Notes Treatment Clinical Notes Section Notes 05/12/2024 Type 2 diabetes mellitus with diabetic polyneuropathy (ICD-10 - E11.42) 05/12/2024 Tinea unguium (ICD-10 - B35.1) Plan Of Treatment Pending Test Test Name Order Date 64646-WDHDNKB NAIL, 6 OR MORE 05/12/2024 56887-UPDU SKIN LESIONS, 2 TO 4 05/12/19 Next Appt Details Follow Up: 3 Months, Reason: Provider Name:Sushila brasher, 09/24/2024 02:30:00 PM, [address] [place] [address], [phone], Procedure Notes * Category Sub-Category Detail Notes [...] use of a nail nipper and/or dremel-type steel grinder, to a more viable healthy nail [...] instrumentation by the physician of record - 27154 Progress Notes * Vy FISHMAN LDOB:1945 (78 yo F)Acc No.[id number]:05/12/2024 Progress Note Patient:?Vy FISHMAN Provider:?Sushila Heredia DPM :1945???Age:78 Y???Sex:Female D ate:05/12/2024 Address:[address] [place] [address], [facility], [phone] Pcp:Omid Jimeens MD Subjective: * Chief Complaints: * ???At [...] rehab- 12 days-Went back to [facility] 10/2018-01/10/2019Comonae Casanova- Constipation, [...] multi-density innersoles for 1 year Dx: Ergocalciferol 32470 UNIT Capsule 1 capsule Orally Breo Ellipta [...] innersoles for 1 year Dx: Not-Taking/PRN Ergocalciferol 20170 UNIT Capsule 1 capsule Orally Not-Taking/PRN Breo [...] use of a nail nipper and/or dremel-type steel grinder, to a more viable healthy nail [...] to maintain effectiveness in symptomatic relief - 53266.?Keratoma Treatment:?Parring or Cutting of Benign Hyperkeratotic Lesion(s)?(-56) [...] instrumentation by the physician of record - 10095.? * Procedure Codes:?47921 DEBRI DE NAIL, 6 OR MORE, Modifiers: XS 47031 TRIM SKIN LESIONS, 2 TO 4, Modifiers: XS * Follow Up:?3 Months * Images: * Sign off status: Completed true * Provider:?Sushila Heredia DPM Date:?0 05/12/2024 Generated for Jeannie grady/Kevin/eTransmitting on:?09/10/2024 10:42 AM EDT History and Physical Notes * [...]
--- OUTSIDE RECORDS SUMMARY | 2024-09-10 10:42 | XMS_ITS ---
Author Organization [facility] Address [address] [facility] [place] [address] Care Team Providers Care Revenue Stamper Name Role Phone Omid Jimenes MD Primary Care Provider Sushlia Campos Unavailable [phone] Allergies Allergen (clinical drug ingredient) Drug/Non Drug [...] . Dx: for . 10/05/2014 Not-Taking Ergocalciferol 72124 UNIT 1 capsule Oral ly for 30 [...] Polyneuropathy due to diabetes mellitus type I (846062400) Type 1 diabetes mellitus with diabetic polyneuropathy (E10.42) Active confirmed Vital Signs Height 5 ft 3 in in 03/06/2024 Weight 257 lbs 03/06/2024 BMI 45.52 kg/m2 03/06/2024 Procedures Procedure Date Ordered Date Performed Result Body Sit e 70235-OKLCNRU NAIL, 6 OR MORE 03/06/2024 N/A 73005-PMTC SKIN LESIONS, 2 TO 4 03/06/2024 N/A Encounters Encounter Location Date Provider Diagnosis [facility] [address] [address] 03/06/2024 Sushila Heredia Type 1 diabetes mellitus with diabetic polyneuropathy E10.42 and Tinea unguium B35.1 Assessments Encounter Date Diagnosis (ICD Code) Assessment Notes Treatment Notes Treatment Clinical Notes Section Notes 03/06/2024 Type 1 diabetes mellitus with diabetic polyneuropathy (ICD-10 - E10.42) 03/06/2024 Tinea unguium (ICD-10 - B35.1) Plan Of Treatment Pending Test Test Name Order Date 52814-FTVRAIO NAIL, 6 OR MORE 03/06/2024 64269-HTUB SKIN LESIONS, 2 TO 4 03/06/20 24 Next Appt Details Follow Up: prn, Reason: Provider Name:Sushila brasher, 09/24/2024 02:30:00 PM, [address] [place] [address], [phone], Procedure Notes * Category Sub-Category Detail Notes [...] of a nail nipper and/or dremel-type grinder operator, to a more viable healthy nail plate or bed tissue 6-10. Silver nitrate used for any petechial bleeding as necessary. Definitive antifungal treatment options have been reviewed and discussed with the patient. The patient chooses, no pharmaceutical tx - 17233 Keratoma Treatment Parring or Cutting o f Benign Hyperkeratotic Lesion(s) (-56) 2-4 Lesions - The Benign hyperkeratotic lesions, as described in exam, were pared, and/or cut utilizing a sterile 15 blade, tissue nippers, and/or dremel - 96301 Progress Notes * Vy FISHMAN LDOB:1945 (78 yo F)Acc No.[id number]:03/06/2024 Progress Note Patient:?Vy Fishman Provider:?Sushila Heredia DPM :1945???Age:78 Y???Sex:Female D ate:03/06/2024 Address:[address], [place], [id number] Pcp:Omid Jimenes MD Subjective: * Chief Complaints: [...] Cervical disc replacement, 1 day stay. 05/07/2017[facility]-Systemic Gout 9 day stay- Discharged to rehab- 12 days-Went back to [facility] 10/2018-01/10/2019[facility] [place]- Constipation, swelling, 12/21 * Family History:?Mother: dece [...] heat-molded multi-density innersoles for 1 year Dx:Ergocalciferol 92263 UNIT Capsule 1 capsule Orally Breo Ellipta [...] multi-density innersoles for 1 year Dx:Not-Taking/PRN Ergocalciferol 52731 UNIT Capsule 1 capsule Orally Not-Taking/PRN Breo [...] of a nail nipper and/or dremel-type grinder operator, to a more viable healthy nail plate or bed tissue 6-10. Silver nitrate used for any petechial bleeding as necessary. Definitive antifungal treatment options have been reviewed and discussed with the patient. The patient chooses, no pharmaceutical tx - 96589.?Keratoma Treatment:?Parring or Cutting of Benign Hyperkeratotic Lesion(s)?(-56) 2-4 Lesions - The Benign hyperkeratotic lesions, as described in exam, were pared, and/or cut utilizing a sterile 15 blade, tissue nippers, and/or dremel - 29189.? * Procedure Codes:?54211 DEBRI DE NAIL, 6 OR MORE, Modifiers: XS 15322 TRIM SKIN LESIONS, 2 TO 4, Modifiers: XS * Follow Up:?prn * Images: * Sign off status: Completed true * Provider:Teresa Heredia DPM Date:?05/06/2023 Generated for Jeannie grady/Favenug/eTransmitting on:?09/10/2024 10:42 AM EDT History and Physical [...]
--- OUTSIDE RECORDS SUMMARY | 2024-09-10 10:42 | XMS_ITS ---
Author Organization Omid Jimenes MD Address [address] [place] [phone] Care Team Providers Care Centrifugal Supervisor Name Role Phone Omid Jimenes Primary Care Provider [phone] Allergies Allergen (clinical drug ingredient) Drug/Non Drug [...] day for 7 days 11/30/2023 Active Nystop 512850 UNIT/GM APPLY ONE APPLICAT ION EXTERNALLY TWO [...] Problem Status W/U Status Risk Notes Problem [id number] Chronic obstructive pulmonary disease, unspecified COPD type (J44.9) Active confirmed Vital Signs Blood pressure systolic 158 mm Hg 02/29/20 24 Blood pressure diastolic 76 mm Hg 024 Height 64 in 02/29/2024 Weight 252 lbs 02/29/2024 BMI 43.25 kg/m2 02/29/2024 weight is down 8 pounds [facility] e 12-17-23 Encounters Encounter Location Date Provider Diagnosis Omid Jimenes MD [address] [place] [address] [place] [phone] 02/29/2024 Omid Jimenes Acute systolic congestive heart failure I50.21 ; Morbid obesity due to excess calories E66.01 and Chronic obstructive pulmonary disease, unspecified COPD type J44.9 Assessments Encounter Date Diagnosis (ICD Code) Assessment Notes Treatment Notes Treatment Clinical Notes Section Notes 02/29/2024 Acute systolic congestive heart failure (ICD-10 - I50.21) stable with coninuous shortness of breath/ order faxed to [facility] 02/29/2024 Morbid obesity due to excess calories (ICD-10 - E66.01) has lost some weight 02/29/2024 Chronic obstructive pulmonary disease, unspecified COPD type (ICD-10 - J44.9) stable Plan Of Treatment Treatment Notes Assessment Notes Acute systolic congestive heart failure stable with coninuous shortness of breath/ order faxed to [facility] de[facility] Morbid obesity due to excess calories bradley s lost some weight Chronic obstructive pulmonar y disease, unspecified COPD type stable Pending Test Test Name Order Date MAMMOGRAM DIGITAL BILATERAL SCREEN 02/28 Next Appt Details Follow Up: 6 Months, Reason: Provider Name:Omid borden, 09/26/2024 07:45:00 AM, [address] [place] [address], [address], [phone], Provider Name:Omid borden, 09/29/2024 02:00:00 PM, [address] [place] [address], [address], [phone], Provider Name:Omid borden, 02/24/2025 07:15:00 AM, [address] [place] [address], [address], [phone], Provider Name:Omid borden, 03/03/2025 02:30:00 PM, [address] [place] [address], [address], [phone], Progress Notes * Vy WAITE LDOB:1945 (78 yo F)Acc No.[id number]:02/29/2024 Patient:?Vy Waite Provider:?Omid Jimenes MD :1945???Age:78 Y???Sex:Female D ate:02/29/2024 Address:[address] [place] [address] Subjective: * Chief Complaints: * ???Comp visit [...] Pets: none. no Travel outside of the [place]. * Medications:?TakingCalcitrio l 0.25 MCG Capsule [...] and allow to dissolve Orally twicea dayNystop 619010 UNIT/GM Powder APPLY ONE APPLICATION EXTERNALLY TWO [...] EYE DAILY NEEDED Ophthalmic Tw[facility] a [facility]Taking [facility] Unifine Pentips Plus 31G [...] allow to dissolve Orally twicea dayTaking Nystop 204110 UNIT/GM Powder APPLY ONE APPLICATION EXTERNALLY TWO [...] 36.1 H <30 - ug/mg cr ???Lab:[facility]prehensive [place]. P iris Fast (Order Date - 02/19/2024) [...] mg/dL ?Urine Blood Negative Negative - ?Specific [place] - Urine 1.010 1.005-1.025 - ?Urine Protein [...] negative , no masses palpable.?FEMALE GENITOURINARY:?done by regulatory intern.?EXTREMITIES:?no clubbing, cyanosis, or edema.?NEUROLOGIC:?nonfocal, motor strength normal upper and lower extremities, sensory exam intact.? Assessment: * Assessment: 1.?Acute systolic congestive heart failure - I50.21 (Primary)?2.?Morbid obesity due to excess calories - E66.01?3.?Chronic obstructive pulmonary disease, unspecified COPD type - J44.9? Plan: * Treatment: Notes: stable with coninuous shortness of breath/ order faxed to [facility] de[facility]??2.?Morbid obesity due to excess calories? Notes: has lost some weight??3.?Chronic obstructive pulmonary disease, unspecified COPD type? Notes: stable?? * Procedure Codes:? * Follow Up:?6 Months * * Sign off status: Completed true * Provider:?Omid Jimenes MD Date:?1 04/30/2023 Generated for Jeannie grady/Kevin/eTransmitting on:?09/10/2024 10:41 AM EDT History and Physical Notes * [...] no masses palpable FEMALE GENITOURINARY: done by regulatory intern ORAL CAVITY: mucosa moist
--- OUTSIDE RECORDS SUMMARY | 2024-09-10 10:43 | XMS_ITS ---
Author Organization Omid Jimenes MD Address [address] [place], [place] [id number] Care Team Providers Care Cable Installer Repairer Helper Name Role Phone Omid Jimenes Primary Care Provider [phone] Reason For Referral Reason osteopenia of hip [...] Location Date Provider Diagnosis Omid Jimenes MD [address] [place] [address] [place] [phone] 03/06/2024 Omid Jimenes Plan Of Treatment Referrals Referral Date Details 03/07/2024 03/07/2024, osteopen ia of hip please eval and treat , Patrice Jay Next Appt Details Provider Name:Omid Akhtar ier, 09/26/2024 07:45:00 AM, [address] [place] [address], Suite [facility], [place], [place], [phone], Provider Name:Omid Akhtar ier, 09/29/2024 02:00:00 PM, [address] [place] [address], Suite [facility], [place], [place], [phone], Provider Name:Omid Akhtar ier, 02/24/2025 07:15:00 AM, [address] [place] [address], [address] [facility], [place], [place], [phone], Provider Name:Omid jor, 03/03/2025 02:30:00 PM, [address] [place] [address], [address] [facility], [place], [place], [phone], Progress Notes * Vy WAITE LDOB:1945 (78 yo F)Acc No.[id number]:03/06/2024 Patient:?Vy Waite :1945???Age:78 Y???Sex:Female Address:[address] [place] [address] Subjective: * Chief Complaints: * ???Bone density results * Medical History:? * Surgical History:? * Hospitalization/Major Diagno stic Procedure:? * Medications:? Objective: Assessment: Plan: * Treatment: * Procedure Codes:? * true * Date:? Generated for Jeannie grady/Kevin/eTransmitting on:?09/10/2024 10:42 AM EDT Consultation Request Notes Referral Date Referring Provider Referred Provider Not es 03/07/2024 Omid Jimenes, Patrice shannon of hip please eval and treat
--- OUTSIDE RECORDS SUMMARY | 2024-09-10 10:43 | XMS_ITS ---
Author Organization [facility] Address [address] [facility] [place] [address] Care Team Providers Care Civil Engineering Manager Name Role Phone Omid Jimenes MD Primary Care Provider Sushila Campos Unavailable [phone] Brittany Montiel Unavailable [phone] Allergies Allergen (clinical drug ingredient) Drug/Non Drug [...] for 1 year Dx: 10/06/2015 Not-Taking Ergocalciferol 13263 UNIT 1 capsule Oral ly for 30 [...] 025 Encounters Encounter Location Date Provider Diagnosis [facility] [address] [address] 07/18/2024 Brittany Montiel Type 2 diabetes mellitus [...] Provider Name:Sushila brasher, 09/24/2024 02:30:00 PM, [address] [place] [address], [phone], Procedure Notes * Category Sub-Category Detail Notes [...] of a nail nipper and/or dremel-type grinder set up operator centerless, to a more viable healthy nail plate [...] to maintain effectiveness in symptomatic relief - 91236 Keratoma Treatment Parring or Cutting o f [...] instrumentation by the physician of record - 43013 Progress Notes * Vy FISHMAN LDOB:1945 (79 yo F)Acc No.[id number]:07/18/2024 Progress Note Patient:?Vy FISHMAN Haley Provider:?Brittany Montiel DPM :1945???Age:79 Y???Sex:Female D ate:07/18/2024 [facility], [phone] Pcp:Omid Jimenes MD Subjective: * Chief Complaints: [...] Cervical disc replacement, 1 day stay. 05/07/2017[facility] [place]-Systemic Gout 9 day stay- Discharged to rehab- 12 days-Went back to [facility] rehab 10/2018-01/10/2019[facility] [place]- Constipation, swelling, [...] multi-density innersoles for 1 year Dx: Ergocalciferol 39491 UNIT Capsule 1 capsule Orally Breo Ellipta [...] innersoles for 1 year Dx: Not-Taking/PRN Ergocalciferol 90334 UNIT Capsule 1 capsule Orally Not-Taking/PRN Breo [...] of a nail nipper and/or dremel-type grinder set up operator centerless, to a more viable healthy nail plate [...] to maintain effectiveness in symptomatic relief - 00282.?Keratoma Treatment:?Parring or Cutting of Benign Hyperkeratotic Lesion(s)?(-56) [...] instrumentation by the physician of record - 06694.? * Procedure Codes:?64867 DEBRI DE NAIL, 6 OR MORE, Modifiers: XS 90581 TRIM SKIN LESIONS, 2 TO 4, Modifiers: [...] Montiel DPM Date:? Generated for Jeannie grady/Kevin/Cony on:?09/10/2024 10:42 AM EDT History and Physical [...]
--- OUTSIDE RECORDS SUMMARY | 2024-09-10 10:43 | XMS_ITS | Clinical Summary ---
Author Organization [facility] Facility Address [address] [address] Care Team Providers Care Band Manager Name Role Phone Omid Jimenes MD Primary Care Provider [phone] Allergies Active Allergy Reactions Criticality Noted Date Comments Atorvastatin Other (see comments) 10/30/2018 Cramps Bacitracin Other (see comments),Swelling 06/15/2017 Cephalexin 06/07/2020 Thinks it may have made rash worse Charentais Melon (Northern Irish Melon) Rash Low 11/01/2018 Erythromycin Other (see [...] Other (see comments) 09/28/2021 Medications valsartan (DIOVAN) 40 MG tablet Take 40 mg by mouth in the morning. 9 Active Tiotropium [place] Monohydrate (Spiriva Respimat) 1.25 MCG/ACT aerosol solution [...] 2 (two) times a day 1 Active Dulaglutide (Trulicity) 3 MG/0.5ML solution pen-injector Inject under the skin Active calcitriol (ROCALTROL) 0.25 MCG capsule TAKE ONE CAPSULE BY MOUTH EVERY OTHER DAY 15 capsule 2 5 Active Dapagliflozin Propanediol (Farxiga) 10 MG tablet Take 10 mg by mouth 1 (one) time each day 90 tablet 2 2 09/05/19 25 Discontinu ed(Alterna te therapy) Active Problems Problem Noted Date Diagnosed Date [...] and able she would consider consultation in [place] right now she feels that the pain [...] for shortness of breath. Outpatient management with mill supervisor Dr. Berrios. No current symptoms. Breathing [...] & Plan: Patient has been residing at [place] [facility] some time now. She is actually [...] Patient is followed by by an outside paper machine operator. She is been maintained on Lasix 40 [...] long-term relief and she will contact the industrial spray painter for consideration of a corticosteroid epidural injection. [...] 50% of this 20-minute visit was spent [id number] conversation with the patient and her present coordinating my care with out of her primary care physician as well as her orthopedic surgeon and industrial spray painter. Last Assessment & Plan: This continues to [...] of this 29-minute visit was spent in [id number] conversation with the patient and her present [...] Medications are be left unchanged and enlarged manufacturers service representative on tools and utensils and be used [...] Encounters Date Type Department Care Team Description 09/04/2024 2:15 PM EDT Office Visit [facility] [address] [place] [address] Lewis Cohen MD Stage 3b chronic kidney disease (HCC) (Primary Dx); Type 2 diabetes mellitus with diabetic chronic kidney disease (HCC) 09/02/2024 Orders Only [facility] [address] [phone] Lewis Cohen MD 09/01/2024 Orders Only [facility] [address] [phone] Lewis Cohen MD Stage 3a chronic kidney disease (HCC) (Primary Dx); Renal osteodystrophy 08/20/2024 Orders Only [facility] [address] [phone] Estefania Moreno MA Type 2 diabetes mellitus with diabetic chronic kidney disease (HCC) (Primary Dx); Stage 3 chronic kidney disease, not otherwise specified (HCC) 08/20/2024 Office Communication [facility] [address] [phone] Marlene Holley 07/25/2024 Refill [facility] [address] [place] [address] Lewis Cohen MD from Last 3 Months [...] Sign Reading Time Taken Comments Blood Pressure 130/78 09/04/2024 2:17 PM EDT Pulse 105 09/04/2024 2:17 PM EDT Temperature - - Respiratory Rate - - Oxygen Saturation 97% 07/30/2023 1:02 PM EDT Inhaled Oxygen Concentration - - Weight 111 kg (245 lb) 09/04/2024 2:17 PM EDT Height 165.1 cm (5' 5 ) 03/03/2019 12:00 PM EST Body Mass Index 40.77 03/03/2019 12:00 PM EST Plan of Treatment Upcoming Encounters Date Type Department Care Team (Late st Contact Info) Description 09/18/2024 Orders Only [facility] [address] [place] [phone] Lewis Cohen MD [address] [phone] Stage 3b chronic kidney disease (HCC); Type 2 diabetes mellitus with diabetic chronic kidney disease (HCC) 03/23/2025 3:30 PM EST Office Visit [facility] [address] [place] [phone] Lewis Cohen MD [address] [phone] Health Maintenance Due Date Last Done [...] Procedure Name Priority Date/Time Associated Diagnosis Comments CALCIUM Routine 09/02/2024 12:37 PM EDT CREATININE, BLOOD Routine 09/02/2024 12: 37 PM EDT BUN Routine 09/02/2024 12:37 PM EDT ELECTROLYTE PANEL Routine 09/02/2024 12: 37 PM EDT CBC AND DIFFERENTIAL Routine 09/02/2024 12:37 PM EDT Type 2 diabetes mellitus with diabetic chronic kidney disease (HCC) Stage 3 chronic kidney disease, not otherwise specified (HCC) BLOOD PANEL (HC) Routine 02/02/2020 12:0 0 AM EDT from Last 3 Months or Most Recently Relevant to Health Maintenance Results * Creatinine (09/02/2024 12:37 PM EDT) Creatinine Serum 1.31 0.5 - 1.4 mg/dL See order comments eGFR (Calc) 39 See orde r comments Comment: Chronic Kidney Disease: ??Estimated GFR < 60 mL/min/1.73m2 Severe Kidney Disease: ??Estimated GFR < 15 mL/min/1.73m2 09/02/2024 12:3 7 PM EDT 09/02/2024 12:37 PM EDT us Lewis Cohen MD LAB BLOOD ORDERABLES Final Re sult [place] See order comments [place] [address] * (ABNORMAL) CBC and differential (09/02/2024 12:37 PM EDT) WBC 10.0 4.8 - 10.8 X10*3/uL See order comments RBC 3.76(L) 4.20 - 5.50 X10*6/uL See order comments Hgb 12.0 12.0 - 16.0 g/dl See order comments Hematocrit 37.7 37.0 - 47.0 % See order comments MCV 100.3(H) 80.0 - 98.0 fL See order comments MCH 31.9 27.0 - 33.0 pg See order comments MCHC 31.8 31.0 - 35.0 g/dl See order comments RDW 14.9 11.0 - 16.0 % See order comments Platelets 286 160 - 400 X10*3/uL See order comments MPV 10.2 9.4 - 12.3 fL See order comments Neutrophils % Auto 77.2(H) 45 - 73 % See order comments Immature Granulocytes 0.5(H) 0.0 - 0.4 % See order comments Lymphocytes Relative 14.1(L) 20 - 40 % See order comments Monocytes 6.5 2 - 11 % See order comments Eosinophils Relative 1.3 0 - 4 % See order comments Basophils Relative 0.4 0 - 2 % See order comments nRBC Count 0.0 0.0 - 0.2 /100WBC See order comments Neutrophils Absolute 7.7 2.0 - 8.3 x10*3/uL See order comments Immature Grans (Absolute) 0.05(H) 0.00 - 0.03 X10*3/uL See order comments Lymphocytes Absolute 1.4 1.2 - 4.9 X10*3/uL See order comments Monocytes Absolute 0.7 0.1 - 1.2 X10*3/uL See order comments Eosinophils Absolute 0.1 0.0 - 0.4 X10*3/uL See order comments Basophils Absolute 0.0 0.0 - 0.2 X10*3/uL See order comments NRBC Absolute 0.000 0.0 - 0.012 X10*3/uL See order comments Blood (Blood, Venous) 09/02/2024 12:37 PM EDT 09/02/2024 12:37 PM EDT Lewis Cohen MD LAB BLOOD ORDERABLES Final Re sult Performing Organization Address [facility] de Phone Number [place] See order comments [place] [address] * (ABNORMAL) BUN (09/02/2024 12:37 PM EDT) BUN 23(H) 9 - 16 mg/dL See order comments 09/02/2024 12:3 7 PM EDT 09/02/2024 12:37 PM EDT Lewis Cohen MD LAB BLOOD ORDERABLES Final Re sult Performing Organization Address [facility] de Phone Number [place] See order comments [place] [address] * Calcium (09/02/2024 12:37 PM EDT) Calcium 9.6 8.4 - 10.2 mg/dL See order comments 09/02/2024 12:3 7 PM EDT 09/02/2024 12:37 PM EDT Lewis Cohen MD LAB BLOOD ORDERABLES Final Re sult Performing Organization Address [facility] de Phone Number [place] See order comments [place] [address] * (ABNORMAL) Electrolyte panel (09/02/2024 12:37 PM EDT) Sodium 143 135 - 145 mmol/L See order comments Potassium 4.0 3.3 - 5.1 mmol/L See order comments Chloride 101 96 - 108 mmol/L See order comments Bicarbonate (CO2) 32(H) 22 - 29 mmol/L See order comments Anion Gap 14 12 - 20 See order comments 09/02/2024 12:3 7 PM EDT 09/02/2024 12:37 PM EDT us Lewis Cohen MD LAB BLOOD ORDERABLES Final Re sult [place] See order comments [place] [address] * (ABNORMAL) Blood Panel (02/02/2020 12:00 AM [...] mg/dl PVNMA 02/02/2020 us [facility] [id number] LICITED RESULTS Final Result PVNMA from Last 3 Months or Most Recently Relevant to Health Maintenance Insurance Medicare [facility] Medicare [facility] Care Teams Band Manager Relationship Specialty Start Date End Date Omid Jimenes MD [address] [place] PCP - General 05/10/20
== END 2024-09-10 10:39 | disposition home or self-care (01) ==
LOC: HO.PMC 09:54
PROVIDERS: PCP Internal Medicine; Visit Provider Internal Medicine
DX: G89.4 Chronic pain syndrome (principal); M54.9 Dorsalgia, unspecified; Z79.891 Long term (current) use of opiate analgesic; M25.512 Pain in left shoulder
CPT/HCPCS: 20611; 99214

== ENCOUNTER → 2024-09-10 09:53 | Outpatient (BNVA) | payer MEDICARE, OTHER, SELFPAY | PROVIDERS: PCP Internal Medicine; Visit Provider Internal Medicine | DX: M25.512 Pain in left shoulder (principal); M25.511 Pain in right shoulder; M54.9 Dorsalgia, unspecified; G89.4 Chronic pain syndrome | CPT/HCPCS: 20611; 99212 ==

== ENCOUNTER 2024-09-26 10:51 | Outpatient (REF) | payer MEDICARE, OTHER, SELFPAY ==
--- OUTSIDE RECORDS SUMMARY | 2024-09-26 11:58 | XMS_ITS | Encounter Summary ---
Author Organization [facility] Address [address] [phone] Phone Care Team Providers Care Finish Off Operator Name Role Phone Omid Jimenes MD Primary Care Provider Encounter Details Date Type Department Care Team (Late Contact Info) Description 09/18/2024 Orders Only [facility] [address] [place] [phone] Lewis Cohen MD [address] [phone] Stage 3b chronic kidney disease (HCC); Type 2 diabetes mellitus with diabetic chronic kidney disease (HCC) Social History Tobacco Use Types Packs/Day Years [...] Care Team (Late st Contact Info) Description 03/23/2025 3:30 PM EST Office Visit [facility] [address] [place] [phone] Lewis Cohen MD [address] [phone] documented as of this encounter Visit Diagnoses Diagnosis Stage 3b chronic kidney disease (HCC) Type 2 diabetes mellitus with diabetic chronic kidney disease (HCC) documented in this encounter Care Teams Finish Off Operator Relationship Specialty Start Date End Date Omid Jimenes MD [address] [place] [address] [address] [place], [place] PCP - General 05/10/20 documented as of this encounter
[2024-09-26 12:12] LABS: Estimated Average Glucose 123 mg/dL; Hemoglobin A1c % 5.9 % (<6.0)
[2024-09-26 12:44] LABS: Alanine Aminotransferase 24 U/L (0-31); Albumin Level 3.7 g/dL (3.5-5.0); Alkaline Phosphatase 81 U/L (39-117); Aspartate Amino Transferase 36 U/L (5-31); Bilirubin Direct 0.2 mg/dL (0.0-0.5); Bilirubin Total 0.4 mg/dL (0.0-1.0); Cholesterol 161 mg/dL (<200); Glucose Fasting 158 mg/dL (60-99); HDL Cholesterol 46 mg/dL (>40); LDL Cholesterol Calculated 82 mg/dL (<100); Total Protein 7.1 g/dL (6.5-8.0); Triglycerides 169 mg/dL (<150)
[2024-09-26 13:43] LABS: Reflex LDLD? No
== END 2024-09-26 10:52 | disposition home or self-care (01) ==
LOC: HO.LNP 10:51
PROVIDERS: Visit Provider Internal Medicine
DX: E11.9 Type 2 diabetes mellitus without complications (principal); E78.00 Pure hypercholesterolemia, unspecified
CPT/HCPCS: 80061; 80076; 82947; 83036

== ENCOUNTER 2024-10-08 09:38 | Outpatient (AMB) | payer MEDICARE, OTHER, SELFPAY ==
[2024-10-08 09:44] VITALS: BP 164/76; PULSE 90; RESP 16; O2SAT 93; BMI 44.8
--- NOTE | 2024-10-08 09:44 | A.OFFVIS_ITS ---
Vital Signs 10/08/24 09:44 Height 5 ft 2.65 in Weight 250 lb BMI 44.8 BP 164/76 H Blood Pressure Location Lt brachial Position Sitting Respiration 16 Pulse 90 Pulse Source Pulse Oximeter Pulse Oximetry (%) 93 Oxygen Delivery Method Room Air Intake Visit Reasons: Pill count Intake Note: Pt states she last took vicodin 10/08/24 @ 7:45am. Pt is aware she will go for a random UDS at the completion of todays visit Ticket Worker Required: No Allergies cephalexin (From Keflex) Allergy (Severe, Verified 10/08/24 09:45) Itching pravastatin (Pravachol) Allergy (Severe, Verified 10/08/24 09:45) cramps bacitracin Adverse Reaction (Severe, Verified 10/08/24 09:45) eye swelling dexamethasone (TobraDex) Adverse Reaction (Severe, Verified 10/08/24 09:45) redness swelling tobramycin (TobraDex) Adverse Reaction (Severe, Verified 10/08/24 09:45) redness swelling Sulfa (Sulfonamide Antibiotics) Adverse Reaction (Intermediate, Verified 10/08/24 09:45) GI upset atorvastatin (From Lipitor) Adverse Reaction (Verified 10/08/24 09:45) Unknown Beef Containing Products Adverse Reaction (Verified 10/08/24 09:45) Unknown erythromycin base Adverse Reaction (Verified 10/08/24 09:45) Unknown Penicillins (PCN) Adverse Reaction (Verified 10/08/24 09:45) Unknown sulfacetamide (From Sulfacet-R) Adverse Reaction (Verified 10/08/24 09:45) Unknown sulfur (From Sulfacet-R) Adverse Reaction (Verified 10/08/24 09:45) Unknown topiramate (From Topamax) Adverse Reaction (Verified 10/08/24 09:45) Unknown Medication List - Last Reconciled 10/08/24 by Naz Simpson LPN albuterol sulfate 90 mcg/actuation 2 puffs PO Q4H albuterol sulfate 2.5 mg (3 mL) inhalation Q4H PRN allopurinol 100 mg PO DAILY aspirin 81 mg PO DAILY atorvastatin 20 mg PO DAILY azelastine-fluticasone 137-50 mcg/spray 1 spray intranasal BID 30 days bepotastine besilate 1.5% (Bepreve) 1 drp ophthalmic (eye) DAILY PRN calcitriol mcg PO chlorhexidine gluconate 0.12% 15 mL buccal DAILY 30 days cholecalciferol (vitamin D3) (Vitamin D3) 25 mcg PO DAILY doxycycline hyclate 100 mg PO BID 10 days duloxetine 60 mg PO DAILY epinephrine 0.3 mL IM ONCE PRN ferrous sulfate (FeroSul) 325 mg PO DAILY fluticasone propionate 220 mcg/actuation 2 puffs inhalation BID furosemide (Lasix) 80 mg PO BID 30 days gabapentin 100 mg PO .AM gabapentin 400 mg PO BEDTIME hydrocodone-acetaminophen 7.5-325 mg 1 tab PO BID PRN insulin glargine units subcut levothyroxine 75 mcg PO DAILY meclizine 25 mg PO BID PRN mepolizumab 100 mg subcut Q4W nystatin 1 appl topical BID omeprazole 20 mg PO DAILY potassium chloride ER 10 mEq PO BID Saccharomyces boulardii (Florastor) 250 mg PO BID sitagliptin phosphate 100 mg PO DAILY tiotropium bromide 1.25 mcg/actuation inhalation tirzepatide (Mounjaro) 2.5 mg subcut QWEEK trazodone 50 mg PO BEDTIME PRN valsartan 40 mg PO DAILY HPI HPI Pill count: Details: History of Present Illness The patient is an 79-year-old female presenting with left shoulder pain. She previously received an injection that provided relief for approximately 3-4 months. Recently, the shoulder pain has recurred with mild twinges. The patient is under care for a pulmonary condition, having been prescribed tramadol for associated sleep issues. Additionally, she uses trazodone to manage insomnia, reporting some sleep disruption due to medication-induced shakiness. She possesses 17 glycogen pills and a newly filled 60-pill bottle, indicating adequate supply for some time. Plans for further management and medication review have been discussed to ensure appropriate care continuity. Pain Description - Onset: Initially relieved by injection, recurrence noted recently. - Quality: Twinges in the left shoulder. - Location: Primarily affects the left shoulder. - Aggravating Factors: Gradual return of pain post-injection. - Alleviating Factors: Previous injection was effective; currently using oral medications. - Interference with Function: Patient sometimes falls asleep before taking pills at night. Physical Exam - Appears afebrile. - Alert and oriented. - Mood and affect appropriate. - Follows and participates in conversation appropriately. - Respiratory effort is unlabored. - Able to transition from sit to stand unassisted. - Ambulates with bilaterally normal heel strike and toe off. - Able to stand and walk on toes and heels. Results Pain Management - Affect: Patient does not report new mood changes but indicates sleep is influenced by medication effects. - Analgesia: Using tramadol and glycogen pills; adequate during previous use, 17 old pills remaining; new supply contains 60 pills. - Adverse Effects: Reports of shakiness due to medications. - Activities of Daily Living: No significant impact reported aside from disrupted sleep pattern management. - Aberrant Drug Related Behaviors: None reported or identified; patient is oriented to dosage instructions and management. [facility] Medical History (Updated 04/18/24 @ 05:36 by Sae Hurst) COPD (chronic obstructive pulmonary disease) Morbid obesity Acute systolic congestive heart failure Osteoporosis Dyspnea Chronic pain syndrome Gouty arthritis Arthritis of both glenohumeral joints Neurogenic claudication due to lumbar spinal stenosis Asthma CLEVE on CPAP Chronic restrictive lung disease Tracheitis Dyspnea Surgical History Status post cervical spinal fusion History of eyelid surgery History of knee replacement History of cholecystectomy Family History Father HTN (hypertension) Stroke Diabetes Mother Atrial fibrillation HTN (hypertension) Social History Alcohol intake: never Patient Tobacco Use Status: Former Tobacco user Tobacco use type: Cigarette Years Smoked: 20 years Second Hand Smoke Exposure: No Physical Exam Vital Signs: Last Vital Signs Pulse 90 10/08/24 09:44 Resp 16 10/08/24 09:44 BP 164/76 H 10/08/24 09:44 Pulse Ox 93 10/08/24 09:44 Oxygen Delivery Method Room Air 10/08/24 09:44 BMI result Body Mass Index 44.8 Assessment & Plan Assessment & Plan (1) Chronic pain syndrome: Comment: Requiring narcotic use Code(s): G89.4 - Chronic pain syndrome Category: Medical Plan Plan - Monitor left shoulder pain status; revisit treatment options if pain exacerbates. - Continue with current pulmonology management for respiratory condition and sleep issues; no changes to tramadol or trazodone prescribed regimen. - Re-evaluate vicodin pill usage and refill needs as supply diminishes to approximately 20 pills remaining, encouraging contact at that point. - Schedule follow-up appointment in six weeks to assess pain management and medication efficacy. Patient was informed and verbally consented to the use of an ambient scribe for clinic note documentation during this visit. Discussion Notes I discussed with the patient the current management of her left shoulder pain, including previous successful injection treatment and considerations for future management based on symptom changes. We reviewed her medication regimen, confirming that her prescription volume remains sufficient with 17 pills from a previous supply and a recent refill of 60. I explained the pain management plan, recommending she contacts us as her tablet supply decreases to approximately 20 pills to coordinate a timely refill and reassessment. The patient has a scheduled follow-up in six weeks, which may be extended if her current condition remains stable and medication use is less than anticipated. Patient Instructions - Monitor left shoulder pain and report any significant increase in symptoms. - Continue current use of tramadol and trazodone as prescribed by Dr. Berrios for sleep. - Call the clinic when remaining supply of glycogen pills reaches 20 tablets to discuss a refill. - Attend follow-up appointment in six weeks as scheduled, unless earlier assessment is needed. Coding Level of Care Code Est Pt Level 3 (57622) Diagnoses Chronic pain syndrome G89.4
--- OUTSIDE RECORDS SUMMARY | 2024-10-08 10:34 | XMS_ITS | Patient Health Record ---
Author Organization Omid Jimenes MD Address [address] [place] [phone] Care Team Providers Care Mechanic Foreman Name Role Phone Omid Jimenes Primary Care [...] Notes/Report: Hemoglobin A1c 6.9 Liver Panel Reviewed date:09/26/2024 04:14:17 PM Interpretation: Performing Lab:[facility], [address] [place] [phone] Notes/Report: Bilirubin Total 0.4 0.0-1.0 mg/dL Bilirubin Direct 0.2 0.0-0.5 mg/dL Aspartate Amino Transferase 36 5-31 U/L Alanine Aminotransferase 24 0-31 U/L Total Protein 7.1 6.5-8.0 g/dL Albumin Level 3.7 3.5-5.0 g/dL Alkaline Phosphatase 81 39-117 U/L Glucose Fasting Reviewed date:09/26/2024 04:14:33 PM Interpretation: Performing Lab:[facility], [address] [place] [phone] Notes/Report: Glucose Fasting 158 60-99 mg/dL A fasting glucose of 126 mg/dl or greater on more than one occasion is considered diagnostic of diabetes. Lipid Panel with Reflex Reviewed date:09/26/2024 04:15:11 PM Interpretation: Performing Lab:[facility], [address] [place] [phone] Notes/Report: Triglycerides 169 <150 mg/dL Desirable Triglyceride: [...] A1c Reviewed date:09/26/2024 12:54:48 PM Interpretation: Performing Lab:[facility], [address] [place] [phone] Notes/Report: Hemoglobin A1c % 5.9 <6.0 % [...] average glucose, using the formula of the J1L-Crjangx Average Glucose study (ADAG), Diabetes Care, Vol.31,#8, Nov. 2007 Glucose, finger stick Reviewed date:11/26/2023 01:53:20 PM Interpretation: Performing Lab: Notes/Report: Value 183 Glucose, finger stick Reviewed date:12/18/2023 11:23:09 AM Interpretation: Performing Lab: Notes/Report: Value 190 Complete Blood Count Auto Di ff Reviewed date:02/19/2024 08:34:52 PM Interpretation: Performing Lab:[facility], [address] [place] [phone] Notes/Report: White Blood Count 10.3 4.8-10.8 X10*3/uL [...] NRBC Abs Auto 0.000 0.0-0.012 X10*3/uL Comprehensive Viola. Panel Fa st Reviewed date:02/19/2024 08:44:28 PM Interpretation: Performing Lab:[address] [phone] Notes/Report: Sodium 141 135-145 mmol/L Potassium 4.4 3.3-5.1 mmol/L Chloride 102 96-108 mmol/L Carbon Dioxide 27 22-29 mmol/L Anion Gap 16 12-20 Blood Urea Nitrogen 28 9-16 mg/dL Creatinine 1.40 0.5-1.4 mg/dL Estimated Glomerular Filt Rate 36 NOTE: For -[place] Islander individuals, multiply the result by 1.210. Chronic [...] PROFILE Reviewed date:02/19/2024 08:33:19 PM Interpretation: Performing Lab:[facility], [address] [place] [phone] Notes/Report: Iron 84 30-160 mcg/dL Total Iron Binding Capacity 256 228-428 mcg/dL Percent Iron Saturation 33 15-50 % Unsaturated Iron Binding 172 Lipid Panel Reviewed date:02/19/2024 08:24:06 PM Interpretation: Performing Lab:[facility], [address] [place] [phone] Notes/Report: Triglycerides 134 <150 mg/dL Desirable Triglyceride: [...] Total Reviewed date:02/19/2024 08:32:16 PM Interpretation: Performing Lab:[facility], [address] [place] [phone] Notes/Report: Vitamin D 25-OH Total 37.7 >30 [...] T4 Reviewed date:02/19/2024 08:33:11 PM Interpretation: Performing Lab:[facility], [address] [place] [phone] Notes/Report: TSH reflex Free T4 3.76 0.32-4.0 uIU/mL Microalbumin, Random Reviewed date:02/19/2024 08:24:16 PM Interpretation: Performing Lab:[facility], [address] [place] [phone] Notes/Report: Creatinine Urine 88.42 Microalbumin Urine 32.0 Microalbum/Creatinine Ratio Ur 36.1 <30 ug/mg cr Albumin/Creatinine Ratio Reference Ranges: Normal: < 30 ug/mg creatinine Microalbuminuria: 30 - 300 ug/mg creatinine Clinical Albuminuria: > 300 ug/mg creatinine Hemoglobin A1c Reviewed date:02/19/2024 08:36:41 PM Interpretation: Performing Lab:[facility], [address] [place] [phone] Notes/Report: Hemoglobin A1c % 5.9 <6.0 % [...] average glucose, using the formula of the O0B-Zoaeaqi Average Glucose study (ADAG), Diabetes Care, Vol.31,#8, Nov. 2007 UA ClnCatch+Micro w/rflx Cul t Reviewed date:02/19/2024 08:35:51 PM Interpretation: Performing Lab:[facility], [address] [place] [phone] Notes/Report: Urine, Clean Catch Color Urine Yellow Appearance Urine Clear PH 7.0 5.0-9.0 Glucose Urine UA Negative Negative mg/dL Urine Blood Negative Negative Specific Lillian - Urine 1.010 1.005-1.025 Urine Protein Negative Neg-Trace mg/dL Urine Ketones Negative Negative mg/dL Nitrite Urine Negative Negative Leukocyte Esterase Urine Small (1+) Negative RBC Urine 0-2 0-2 /HPF WBC Urine 6-10 0-5 /HPF Squamous Epithelial Cell Urine 11-20 0-2 /HPF Bacteria Urine 1+ None Seen Hyaline Casts Urine 6-10 0-2 /LPF Hold Gold Reviewed date:02/19/2024 05:44:22 PM Interpretation: Performing Lab:[address] [phone] Notes/Report: Nini Gold See Note Specimen held untested for 24 hours; Call to request Chemistry testing. Urine Culture Reviewed date:02/20/2024 05:04:39 PM Interpretation: Performing Lab:[facility], [address] [place] [phone] Notes/Report: Urine Culture Report Result Urine Culture 50,000 to 100,000 cfu/ml Urine Culture Mixed bacterial newton a characteristic of Urine Culture urogenital contamination. XR DEXA axial skeleton Reviewed date:02/29/2024 05:11:35 PM Interpretation: Performing Lab: Notes/Report: [address] [place] [address] Mammography Report Signed Patient: Vy Fishman MR#: [id number] 121 : 1945 Acct:[id number] Age/Sex: 78 / F ADM Date: 02/28/24 Loc: HO.MAMMO Attending Dr: Omid Jimenes MD Ordering Physician: Omid Jimenes MD Results: Date of Service: 02/28/24 Follow Up: Procedure(s): XR DEXA axial skeleton Accession Number(s): [id number] cc: Omid Jimenes MD EXAMINATION: BONE DENSITOMETRY CLINICAL INDICATION: Age-related osteoporosis without current pathological fracture. COMPARISON: This is the patient's baseline examination. TECHNIQUE: Using a [employer] DXA System (software version: 13.1) manufactured by [employer], dual-energy x-ray absorptiometry was performed of the [...] 02/29/24 1219 DD/ 1300 TD/TT: 02/28/24 1320 Riverboat Captain: [facility] [address] [place] [address] Dr. [place], [place] [address] Mammography Report Signed Patient: Vy Fishman MR#: [id number] 121 : 1945 Acct:[id number] Age/Sex: 78 / F ADM Date: 02/28/24 Loc: HO.MAMMO Attending Dr: Omid Jimenes MD Ordering Physician: Omid Jimenes MD Results: Date of Service: 02/28/24 Follow Up: Procedure(s): XR DEX A axial skeleton Accession Number(s): [id number] cc: Omid Jimenes MD EXAMINATION: BONE DENSITOMETRY CLINICAL INDICATION: Age-related osteoporosis without current pathological fracture. COMPARISON: This is the patient' s baseline examination. TECHNIQUE: Using a [employer] Advance DXA System (software version: 13.1) manufactured by [employer], dual-energy x-ray absorptiometry was performed of the [...] 02/29/24 1219 DD/ 1300 TD/TT: 02/28/24 1320 Riverboat Captain: MM tomosynthesis screening B I Reviewed date:05/25/2024 05:17:35 PM Interpretation: Performing Lab: Notes/Report: [facility] [address] [place] [address] Mammography Report Signed Patient: Vy Fishman MR#: [id number] 121 : 1945 Acct:[id number] Age/Sex: 78 / F ADM Date: 05/14/24 Loc: JEREMIAHO Attending Dr: Omid Jimenes MD Ordering Physician: Omid Jimenes MD Results: 2Be nign Findings Date of Service: 05/14/24 Follow Up: 1 Year From Orig inal Mammogram Procedure(s): MM tomosynthesis screening BI Accession Number(s): [id number] cc: Omid Jimenes MD EXAMINATION: MM SCREENING [...] by: Dahlia Green DO 05/25/2024 10:39 AM [facility] Dictated By: Dahlia Green DO Signed By: <Electronically signed by Dahlia Green DO in OV> 05/25/24 1039 DD/ 1445 TD/TT: 05/14/24 1520 Riverboat Captain: [facility] [address] [place] [address] Mammography Report Signed Patient: Vy Fishman MR#: [id number] 121 : 1945 Acct:[id number] Age/Sex: 78 / F ADM Date: 05/14/24 Loc: HOChrisMAMMO Attending Dr: Omid Jimenes MD Ordering Physician: Omid Jimenes MD Results: 2Be nign Findings Date of Service: 05/14/24 Follow Up: 1 Year From Orig inal Mammogram Procedure(s): MM tomosynthesis screening BI Accession Number(s): [id number] cc: Omid Jimenes MD EXAMINATION: MM SCREENING [...] 05/25/24 1039 DD/ 1445 TD/TT: 05/14/24 1520 Riverboat Captain: Nini Melendez Reviewed date:09/26/2024 12:30:19 PM Interpretation: Performing Lab:[facility], [address] [place] [phone] Notes/Report: Nini Melendez See Note Specimen held untested for 24 hours; Call to request Chemistry testing. Reason For Referral Reason osteopenia of hip [...] Duration) Notes Start Date End Date Status Lantus SoloStar 100 UNIT/ML 70 units Subcutaneous 70 units twice a day for 90 days Active Ventolin HFA 108 (90 Base) MCG/ACT 2 puffs as needed Inhalation every 4 hrs for 90 days 10/30/2019 Active Florastor 250 MG TAKE ONE CAPSULE BY MOUTH TWICE A DAY Orally twice a day for 90 days Active Allopurinol 100 MG TAKE TWO TABLETS BY MOUTH EVERY DAY Oral Once a day for 90 days Active Calcitriol 0.25 MCG 1 capsule Orally Thr ee times a Week for 30 day(s) Active Spiriva Respimat 1.25 MCG/ACT INHALE 2 PUFFS DAILY Inhalation Once a day for 90 days Active HYDROcodone-Acetaminophe n 7.5-325 MG (Schedule II Drug) TAKE 1 TABLET BY MOUTH EVERY 8 HOURS NEEDED FOR PAIN Oral for 30 Active Flovent HFA 220 MCG/ACT USE 2 [...] Allergy 25 MG 2 tablet at bedti ga as needed Orally twice aday for 90 days Active MiraLax 17 GM/SCOOP 1 scoop mixed with 8 ounces of fluid Orally Once a day for 90 days Active Calcitriol 0.25 MCG 1 capsule Orally Thr ee times a Week for 90 days Active Gabapentin 400 MG [...] times a day for 90 days Active Mounjaro 5 MG/0.5ML INJECT CONTENTS OF O NE PEN UNDER THE SKIN ONCE A WEEK for 28 Active Potassium Chloride ER 10 MEQ TAKE ONE TABLET BY MOUTH TWICE A DAY WITH FOOD Orally Twice a day for 90 days Active traZODone HCl 50 MG 1 tablet at bedtime as needed Orally Once a day for 30 day(s) Active Ferrous Sulfate 325 (65 Fe) MG 1 tablet Orally Once a day for 90 days Not-Taking Bepreve 1.5 % INSTILL 1 TO 2 DROPS IN EACH EYE DAILY NEEDED Ophthalmic Twice a day for 20 days Active Atorvastatin Calcium 20 MG TAKE ONE TABLET BY MOUTH EVERY DAY for 90 Active Nystop 995471 UNIT/GM APPLY ONE APPLICAT ION EXTERNALLY TWO TIMES A DAY Externally Twice a day for 90 days Active ZyrTEC Allergy 10 MG 1 tablet Orally Onc e a day for 90 days Active Meclizine HCl 25 MG TAKE ONE TABLET BY M OUTH TWICE A DAY NEEDED Orally every 12 hrs for 28 days Active Ondansetron 4 MG 1 tablet on the tong ue and allow to dissolve Orally twicea day for 7 days 11/30/2023 Active Aspir-Low 81 MG 1 tablet Orally Once a day for 90 days Active Immunizations Vaccine Route Administration Date Status [...] Problem Status W/U Status Risk Notes Problem 29099410 Hemoptysis (R04.2) Active confirmed Problem 24629675 Vitamin D defici ency (E55.9) Active confirmed Problem 16961713 Hypercalcemia (E83.52) Active confirme d Problem 936122509 Other specified menopausal and perimenopausal disorders (N95.8) Active confirmed Problem 279648511 Body mass index (BMI) 45.0-49.9, adult (Z68.42) Active confirmed Problem 4818881 Arthritis (M19.90) Active confirmed Problem 8472322 Diastolic dysfun ction (I51.9) Active confirmed Problem 618902979 Tubular adenoma of colon (D12.6) Active confirmed Problem 75171017 Essential hypert ension (I10) Active confirmed Problem 638787800 Acquired hypothyroidism (E03.9) Active confirmed Problem 642691843 Mild intermitten t asthma without complication (J45.20) Active confirmed Problem 49963251 Type 2 diabetes mellitus without complication (E11.9) Active confirmed Problem 2658841 Aortic valve dis order (I35.9) Active confirmed Problem 693267383 Morbid obesity d ue to excess calories (E66.01) Active confirmed Problem 47077174 Chronic obstruct manolo pulmonary disease, unspecified COPD type (J44.9) Active confirmed Problem 264273427 History of hemat uria (Z87.448) Active confirmed Problem 084601800 Acute systolic congestive heart failure (I50.21) Active confirmed Problem 709879617814383 Moderate persist ent asthma with acute exacerbation (J45.41) Active confirmed Problem 299592186 Iron deficiency anemia due to chronic blood loss (D50.0) Active confirmed Problem 003441429 GERD (gastroesop hageal reflux disease) (K21.9) Active confirmed Problem 19054855 Aortic valve terrence nosis, unspecified etiology (I35.0) Active confirmed Problem 34446579 Liver cyst (K76.89) Active confirmed Problem 151587885 Pure hypercholesterolemia (E78.00) Active confirmed Problem 905122300 OAB (overactive bladder) (N32.81) Active confirmed Problem 51845576 CLEVE (obstructive sleep apnea) (G47.33) Active confirmed Problem 925253846 Hand arthritis (M19.049) Active confirmed Problem 170889583 Arthritis pain o f hand (M19.049) Active confirmed Problem 081622086 Arthritis pain o f shoulder (M19.019) Active confirmed Problem History of heart valve repair with prosthesis ([id number]) H/O aortic valve replacement (Z95.2) Active confirmed Problem 269079277 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) Active confirmed Problem 845051165 Acute constipati on (K59.00) Active confirmed Vital Signs Blood pressure diastolic 60 mm Hg 09/29/2024 vamsi ght is down 6 pounds since 02-29-24 Height 64 in 09/29/2024 weight is down 6 pounds since 02-29-24 Blood pressure systolic 154 mm Hg 09/29/2024 weig ht is down 6 pounds since 02-29-24 Weight 246 lbs 09/29/2024 weight is down 6 pounds since 02-29-24 BMI 42.22 kg/m2 09/29/2024 weight is down 6 pounds since 02-29-24 Encounters Encounter Location Date Provider Diagnosis Omid Jimenes MD [address] [place] [id number] 09/26/2024 Omid Jimenes Type 2 diabetes kel itus without complication E11.9 and Pure hypercholesterolemia E78.00 Omid Jimenes MD [address] [place] [id number] 11/26/2023 Omid Jimenes Type 2 diabetes kel itus without complication E11.9 and Postmenopausal osteoporosis M81.0 Omid Jimenes MD [address] [place] [id number] 11/30/2023 Omid Jimenes Acute cellulitis L03 .90 Omid Jimenes MD [address] [place] [address] [id number] 12/17/2023 Omid Bombardier Acute constipation K 59.00 ; Acute cellulitis L03.90 and Type 2 diabetes mellitus without complication E11.9 Omid Jimenes MD [address] [place] [address] [id number] 02/19/2024 Omid Jimenes Type 2 diabetes kel itus without complication E11.9 ; Acquired hypothyroidism E03.9 ; Essential hypertension I10 ; Vitamin D deficiency E55.9 and Iron deficiency anemia due to chronic blood loss D50.0 Omid Jimenes MD [address] [place] [id number] 02/29/2024 Omid Jimenes Acute systolic conge stive heart failure I50.21 ; Morbid obesity due to excess calories E66.01 and Chronic obstructive pulmonary disease, unspecified COPD type J44.9 Omid Jimenes MD [address] [place] [address] [id number] 09/29/2024 Omid Jimenes Type 2 diabetes kel itus without complication E11.9 ; Mild intermittent asthma without complication J45.20 and Pure hypercholesterolemia E78.00 Omid Jimenes MD [address] [place] [address] [id number] 10/30/2023 Omid Jimenes Type 2 diabetes kel itus without complication E11.9 Omid Jimenes MD [address] [place] [address] [id number] 12/10/2023 Omid Jimenes MD [address] [place] [address] [id number] 01/01/2024 Omid Jimenes MD [address] [place] [address] [id number] 02/07/2024 Omid Jimenes Type 2 diabetes kel [...] Omid Jimenes MD [address] [place] [address] [id number] 03/06/2024 Omid Jimenes MD [address] [place] [address] [id number] 03/07/2024 Omid Youngdesirae Breast cancer screen ing Z12.31 Assessments Encounter Date Diagnosis (ICD Code) Assessment Notes Treatment Notes Treatment Clinical Notes Section Notes 09/26/2024 Type 2 diabetes mellitus without complication (ICD-10 - E11.9) 11/26/2023 Type 2 diabetes mellitus without complication (ICD-10 - E11.9) will continue current regiment 11/26/2023 Postmenopausal osteoporosis (ICD-10 - M81.0) pending diagnostic testing, THE BONE DENSITY ORDER HAS BEEN FAXED TO [facility] CENTRALIZED FOR SCHEDULING 11/30/2023 Acute cellulitis (ICD-10 [...] coninuous shortness of breath/ order faxed to [facility] CS dept 02/29/2024 Morbid obesity due t o excess calories (ICD-10 - E66.01) has lost some weight 09/29/2024 Type 2 diabetes mellitus without complication (ICD-10 - E11.9) maintain the same dose of mounjaro since she is still getting nausea 10/30/2023 Type 2 diabetes mellitus without complication (ICD-10 - E11.9) 02/07/2024 Type 2 diabetes mellitus without complication (ICD-10 - E11.9) 09/26/2024 Pure hypercholesterolemia (ICD-10 - E78.00) 12/17/2023 Type 2 diabetes mellitus without complication (ICD-10 - E11.9) stable, will continue current regiment 02/19/2024 Essential hypertensi on (ICD-10 - I10) 02/29/2024 Chronic obstructive pulmonary disease, unspecified COPD type (ICD-10 - J44.9) stable 09/29/2024 Mild intermittent asthma without complication (ICD-10 - J45.20) continue with present meds/ 02/07/2024 Arthritis (ICD-10 - M19.90) 03/07/2024 Breast cancer screen ing (ICD-10 - Z12.31) 02/19/2024 Vitamin D deficiency (ICD-10 - E55.9) 09/29/2024 Pure hypercholesterolemia (ICD-10 - E78.00) stable, will continue with current regiment 02/07/2024 Essential hypertensi on (ICD-10 - I10) [...] Next Appt Details Provider Name:Omid Akhtar ier, 12/30/2024 02:00:00 PM, [address] [place] [address], [address], [place], [place], [phone], Provider Name:Omid Akhtar ier, 02/24/2025 07:15:00 AM, [address] [place] [address], [address], [place], [place], [phone], Provider Name:Omid Akhtar ier, 03/03/2025 02:30:00 PM, [address], [address], [place], [id number], Insurance Providers Payer Name Payer Address Payer Phone Subscriber Number Group Number Insured Name Patient Relationship to Insured Coverage Start Date Coverage End Date [employer] [address] [place] [address] [id number] Vy Fishman Self - patient is the insured [facility] [address] [place] [phone] [id number] Vy Fishman Self - patient is the insured Medical (General) History Medical History History ICD Code Endoscopy and colonoscopy do ne 05/2007; both done 01/30/2014 repeat in 5 : 03/28/22 colonocopy awaiting path hematuria work up in 's Needs yearly echo - DX Aortic Stenosis ( done 06/2015) ct abdomen 12/21 at [facility] normal
== END 2024-10-08 10:05 | disposition home or self-care (01) ==
LOC: HO.PMC 09:39
PROVIDERS: PCP Internal Medicine; Visit Provider Internal Medicine
DX: G89.4 Chronic pain syndrome (principal); Z79.891 Long term (current) use of opiate analgesic
CPT/HCPCS: 99213

== ENCOUNTER → 2024-10-08 09:38 | Outpatient (BNVA) | payer MEDICARE, OTHER, SELFPAY | PROVIDERS: PCP Internal Medicine; Visit Provider Internal Medicine | DX: Z51.81 Encounter for therapeutic drug level monitoring (principal); G89.4 Chronic pain syndrome | CPT/HCPCS: 99212 ==

== ENCOUNTER 2024-11-19 10:42 | Outpatient (AMB) | payer MEDICARE, OTHER, SELFPAY ==
--- OUTSIDE RECORDS SUMMARY | 2024-03-07 03:29 | XMS_ITS ---
Author Organization Omid Jimenes MD Address [address] [place] [phone] Care Team Providers Care Marble Carver Name Role Phone Omid Jimenes Primary Care Provider REASON FOR VISIT mammogram order updated Encounters Encounter Location Date Provider Diagnosis Omid Jimenes MD [address] [place] [phone] 03/07/2024 Omid Jimenes Breast cancer screening Z12.31 Assessments Encounter Date Diagnosis (ICD Code) Assessment Notes Treatment Notes Treatment Clinical Notes Section Notes 03/07/2024 Breast cancer screening (ICD-10 - Z12.31) Plan Of Treatment Pending Test Test Name Order Date MAMMOGRAM DIGITAL BILATERAL SCREEN 03/07 Next Appt Details Provider Name:Omid Akhtar ier, 01/02/2025 02:00:00 PM, [address] [place] [address], Suite [facility], [place], [place], [phone], Provider Name:Omid Akhtar ier, 02/24/2025 07:15:00 AM, [address] [place] [address], Suite [facility], [place], [place], [phone], Provider Name:Omid Akhtar ier, 03/03/2025 02:30:00 PM, [address] [place] [address], Suite [facility], [place], [place], [phone], Progress Notes * Vy WAITE LDOB:1945 (78 yo F)Acc No.[id number]:03/07/2024 Patient: Fannie Vy dye :1945 A ge:78 Y S ex:Female Address:[address] [place] [address] Subjective: * Chief Complaints: * M ammogram order updated * Medical History: * Surgical History: * Hospitalization/Major Diagno stic Procedure: * Medications: Objective: Assessment: * Assessment: 1. B reast cancer screening - Z12.31 Plan: * Treatment: * Procedure Codes: * true * Date: Generated for Jeannie grady/Kevin/eTransmitting on: 0 11/19/2024 11:44 AM EDT
[2024-11-19 10:53] VITALS: BP 149/67; PULSE 103; O2SAT 95; BMI 43.3
--- NOTE | 2024-11-19 10:53 | A.OFFVIS_ITS ---
Vital Signs 11/19/24 10:53 Height 5 ft 2.65 in Weight 242 lb BMI 43.3 BP 149/67 H Blood Pressure Location Lt brachial Position Sitting Pulse 103 H Pulse Source Pulse Oximeter Pulse Oximetry (%) 95 Oxygen Delivery Method Room Air Intake Visit Reasons: Pill count Allergies cephalexin (From Keflex) Allergy (Severe, Verified 11/19/24 10:56) Itching pravastatin (Pravachol) Allergy (Severe, Verified 11/19/24 10:56) cramps bacitracin Adverse Reaction (Severe, Verified 11/19/24 10:56) eye swelling dexamethasone (TobraDex) Adverse Reaction (Severe, Verified 11/19/24 10:56) redness swelling tobramycin (TobraDex) Adverse Reaction (Severe, Verified 11/19/24 10:56) redness swelling Sulfa (Sulfonamide Antibiotics) Adverse Reaction (Intermediate, Verified 11/19/24 10:56) GI upset atorvastatin (From Lipitor) Adverse Reaction (Verified 11/19/24 10:56) Unknown Beef Containing Products Adverse Reaction (Verified 11/19/24 10:56) Unknown erythromycin base Adverse Reaction (Verified 11/19/24 10:56) Unknown Penicillins (PCN) Adverse Reaction (Verified 11/19/24 10:56) Unknown sulfacetamide (From Sulfacet-R) Adverse Reaction (Verified 11/19/24 10:56) Unknown sulfur (From Sulfacet-R) Adverse Reaction (Verified 11/19/24 10:56) Unknown topiramate (From Topamax) Adverse Reaction (Verified 11/19/24 10:56) Unknown HPI HPI Pill count: Details: History of Present Illness The patient is an 79-year-old female presenting with left shoulder and hip pain. The left shoulder pain has been persistent and is exacerbated by frequent use of her arms. The patient received a cortisone injection approximately three months ago, which provided some relief, but she believes it is too soon for another injection in the shoulder. The left hip pain is also significant, and the patient recalls a previous hip injection that offered partial relief. The pain in both the shoulder and hip has been ongoing, and the patient is considering a split dose of cortisone for both areas. Pain Description - Onset: Persistent pain in the left shoulder and hip - Quality: Exacerbated by frequent use of arms - Relief: Previous cortisone injections provided partial relief - Plan: Considering split dose of cortisone for both shoulder and hip Physical Exam Results Pain Management - Affect: Pain impacts daily activities and mood - Analgesia: Cortisone injections have been used with partial relief - Activities of Daily Living: Pain in shoulder and hip affects mobility and arm use [facility] Medical History (Updated 04/18/24 @ 05:36 by Sae Hurst) COPD (chronic obstructive pulmonary disease) Morbid obesity Acute systolic congestive heart failure Osteoporosis Dyspnea Chronic pain syndrome Gouty arthritis Arthritis of both glenohumeral joints Neurogenic claudication due to lumbar spinal stenosis Asthma CLEVE on CPAP Chronic restrictive lung disease Tracheitis Dyspnea Surgical History Status post cervical spinal fusion History of eyelid surgery History of knee replacement History of cholecystectomy Family History Father HTN (hypertension) Stroke Diabetes Mother Atrial fibrillation HTN (hypertension) Social History Alcohol intake: never Patient Tobacco Use Status: Former Tobacco user Tobacco use type: Cigarette Years Smoked: 20 years Second Hand Smoke Exposure: No Physical Exam Vital Signs: Last Vital Signs Pulse 103 H 11/19/24 10:53 BP 149/67 H 11/19/24 10:53 Pulse Ox 95 11/19/24 10:53 Oxygen Delivery Method Room Air 11/19/24 10:53 BMI result Body Mass Index 43.3 Assessment & Plan Assessment & Plan (1) Arthritis of both glenohumeral joints: Code(s): M19.011 - Primary osteoarthritis, right shoulder; M19.012 - Primary osteoarthritis, left shoulder Category: Medical (2) Greater trochanteric bursitis of both hips: Code(s): M70.61 - Trochanteric bursitis, right hip; M70.62 - Trochanteric bursitis, left hip Category: Medical Plan Plan - Plan to administer a split dose of cortisone injection for the left shoulder and hip under fluoroscopy. - Schedule both injections at the same time to reduce visits with pill count at the same time. - Refill medication for the next month, ensuring the patient remains on schedule. Patient was informed and verbally consented to the use of an ambient scribe for clinic note documentation during this visit. Discussion Notes I discussed with the patient the option of administering a split dose of cortisone injection for both the left shoulder and hip, which will be done under fluoroscopy to ensure precision. We agreed to schedule both injections simultaneously to minimize the number of visits required. The patient was informed about the medication refill schedule to maintain consistency in her pain management regimen. Patient Instructions - Follow up with the clinic for scheduling the cortisone injections for the left shoulder and hip. - Ensure medication is refilled on time to avoid lapses in pain management. Medications: Refilled hydrocodone-acetaminophen 7.5-325 mg Partial Fill upon patient request. 1 tab PO BID PRN 60 tabs 0RF pain Coding Level of Care Code Est Pt Level 4 (30357) Diagnoses Arthritis of both glenohumeral joints M19.011; M19.012 Greater trochanteric bursitis of both hips M70.61; M70.62
--- OUTSIDE RECORDS SUMMARY | 2024-11-19 11:44 | XMS_ITS | Clinical Summary ---
Author Organization [facility] Address [facility] [place] [address] Care Team Providers Care Senior Insight Manager International Name Role Phone Unavailable Primary Care Provider [...] Latex:No Tobramycin 06/15/2017 Other reaction(s): Swelling Medications Mometasone-Formo terol (DULERA MDI) 100-5 mcg/actuation HFA Aerosol Inhaler Active albuterol 90 mcg/actuation HFA Aerosol Inhaler Inhale 2 puffs into the lungs Every 6 hours as needed. Active albuterol (PROVENTIL) 2.5 mg /3 mL (0.083 %) Solution for Nebulization Inhale 2.5 mg into the lungs Every 6 hours as needed. Active atorvastatin (LIPITOR) 20 mg Tablet Take 20 mg by mouth Daily. Active azelastine-fluti casone (DYMISTA) 137-50 mcg/spray Franklin, Non-Aerosol 1 puff in each nostril Active [...] puff into the lungs Twice daily. Active TR-Zzj-Rguhh Acid-Lutein (ESSENTIAL WOMAN 50+) 0.4-250 mg-mcg Tablet Take 1 tablet by mouth Daily. Active furosemide (LASIX) 40 mg Tablet Take 40 mg by mouth Twice daily. Active gabapentin (NEURONTIN) 100 mg Capsule Take 100 mg by mouth Three times a day. 05/13/19 19 Active hydroCHLOROthiaz horace (HYDRODIURIL) 25 mg Tablet Take 1 tablet by mouth Daily. Active HYDROcodone-acet aminophen (NORCO) 5-325 mg Tablet 1 1/2 tabs po tid prn Earliest Fill Date: 05/30/18 05/30/19 19 Active insulin glargine (LANTUS U-100 INSULIN) Solution [...] mg Tablet Take 20 mg by mouth. Active Saccharomyces boulardii (FLORASTOR) 250 mg Capsule 1 capsule bid Activ e sitaGLIPtin (JANUVIA) 100 mg Tablet Take 1 tablet by mouth Daily. Active tiotropium bromide (SPIRIVA RESPIMAT) 1.25 mcg/actuation Mist Inhale 1 Inhaler into the lungs Daily. Active valsartan (DIOVAN) 80 mg Tablet 1 Active ipratropium (ATROVENT) 0.03 % Franklin, Non-Aerosol USE 2 SPRAYS BY NASAL ROUTE EVERY 12 HOURS 30 mL 08/10/19 19 Active Additional Information Patient not taking.Reported on [...] long-term relief and she will contact the bottom painter for consideration of a corticosteroid epidural [...] of this 29-minute visit was spent in weey-ke-oyxq conversation with the patient and her present [...] Medications are be left unchanged and enlarged film writer on tools and utensils and be used as well as the judicious use of warmth and when absolutely necessary I will consider an intra-articular cortisone injection into the basilar thumb joint on the left side. Social History Tobacco Use Types Packs/Day Years Used Date Smoking Tobacco: Former Cigarettes 0.5 22 1 964 - 1986 Smokeless Tobacco: Never Comments Unknown Sex and Gender Information Value Date Recorded Sex Assigned at Not on file Legal Sex Female 6:46 AM EST Gender Identity Not on file Sexual Orientation Not on file Last Filed Vital Signs Vital Sign Reading Time Taken Comments Blood Pressure 148/84 06/03/2018 11:13 AM EST Pulse 99 06/03/2018 11:13 AM EST Temperature 36.5 C (97.7 F) 06/03/2018 11:13 AM EST Respiratory Rate 20 06/03/2018 11:1 [...] - 1-dose 75+ series) 07/04/2019 Covid-19 Vaccine (2023- season) 2023 Influenza (Flu) vaccine (1 o f 1 - Influenza standard series) 12/29/2024 [place] [id number] [facility] [place]A STEVE [id number]
--- OUTSIDE RECORDS SUMMARY | 2024-11-19 11:44 | XMS_ITS | Encounter Summary ---
Author Organization [facility] Address [address] [place] [address] Phone Care Team Providers Care Field Automobile Adjuster Name Role Phone Omid Jimenes MD Primary Care Provider Ramsey Ortez MD Unavailable [email or web address] Omid Jimenes MD Unavailable [phone] Emmanuel Lyman MD Unavailable [phone] Lizandro Guallpa MD Unavailable Cameron Vital MD, MSc Unavailable [phone] Encounter Details Date Type Department Care Team (Late st Contact Info) Description 12/09/2018 Procedure Pass [facility] Endoscopy Admitting Dept Virtual Department [address] [place] [address] Social History Tobacco Use Types Packs/Day Years Used Date Smoking Tobacco: Former Smokeless Tobacco: Never Alcohol Use Standard Drinks/Week Comments Not Currently 0 (1 standard drink = 0.6 oz pur e alcohol) Comments Unknown Sex and Gender Information Value Date Recorded Sex Assigned at Female 10/30/2018 9:51 PM EDT Legal Sex Female 5:37 PM EST Gender Identity Female 10/30/2018 9:51 PM EDT Sexual Orientation Straight 10/30/2018 9: 51 PM EDT 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 Not on file Not on file documented as of this encounter Plan of Treatment Upcoming Encounters Date Type Department Care Team (Late st Contact Info) Description 09/25/2024 Procedure Pass [facility] Card[facility] US [address] [place] [address] 12/02/2024 11:10 AM EDT Office Visit [facility] Rheumatology [address] [place] [address] Geraldine Jay MD, MPH [address], [address] [place] [address] [email or web address] 02/18/2025 1:00 PM EDT Appointment [facility] Cardiac US [address] [place] [address] Emmanuel Lyman MD [id number] [place] [address] [email or web address] 02/18/2025 2:30 PM EDT Office Visit [facility] [address], [address] [place] [address] Leni Gramajo, ELIS [address] [place] [address] [email or web address] documented as of this encounter Visit Diagnoses Not on filedocumented in this encounter Additional Health Concerns Infection Onset Date Last Indicated Resolved Time CoV-Risk 12/07/2023 12/07/2023 12/18/2023 1:22 AM EDT documented as of this encounter Care Teams Field Automobile Adjuster Relationship Specialty Start Date End Date Omid Jimenes MD [address] [place] [address] [place] [address] PCP - General 10/28/13 Ramsey Ortez MD [email or web address] Historical LMR Provider 02/15/17 03/02/21 Omid Jimenes MD [address] [place] [address] [place] [address] Historical LMR Provider 02/15/17 Emmanuel Lyman MD [address] [place] [address] [id number] [address] [email or web address] 11/22/20 Lizandro Guallpa MD [address] [place] [address] [id number] [place] [address] [email or web address] Rheumatology 03/03/21 Cameron Vital MD, MSc [address] [place], [place] [id number] [place] [address] [email or web address] 03/03/21 documented as of this encounter Additional Source Comments The information contained in this document represents components of the legal health record. It is not the complete legal health record.[facility]
--- OUTSIDE RECORDS SUMMARY | 2024-11-19 11:44 | XMS_ITS | Patient Health Record ---
Author Organization [facility] Address [address] [place] [address] Care Team Providers Care Lean Manufacturing Specialist Name Role Phone Omid Jimenes MD Primary Care Provider Sushila Campos Unavailable [phone] Alexis Martinez Unavailable [phone] Brittany Montiel Unavailable [phone] Allergies Allergen (clinical drug ingredient) Drug/Non Drug [...] Range Notes HEMOGLOBIN A1C (GLYCOHEMOGLO BIN) Reviewed date:03/06/2024 03:03:22 [...] Lab: Notes/Report: HEMOGLOBIN A1C % (HH) 6.0 Reason For Referral No Information Medications Medication SIG (Take, Route, Frequency, Duration) Notes Start Date End Date Status Valsartan 40 MG 1 tablet Orally Twice a day Active EPINEPHrine PRN Active DULoxetine HCl 60 MG as directed Orally Once a day Active Spiriva Respimat Act manolo Dymista Active Vitamin C Active Vancomycin HCl 125 MG USE 1 SUPPOSITORY RECTALLY TWICE A DAY Oral; Duration: 14 PRN Active ZyrTEC Allergy Activ e Allopurinol 100 MG as directed Orally Active Lorena Active Amoxicillin 250 MG USE 1 SUPPOSITORY RECTALLY TWICE A DAY Oral; Duration: 7 PRN Active Diovan 160mg 1 tablet Orally Once a day; Duration: 30 day(s) Active Cephalexin PRN Active Colchicine PRN Active Bepreve 1.5 % 1 drop into affected eye Ophthalmic Twice a day Active Albuterol as directed PRN Active Invokana 300 MG 1 tablet Orally Once a day Not-Taking Atorvastatin Calcium Active Extra-Depth Diabetic Shoes with 3 Pair Custom heat-molded multi-density innersoles . for 1 year . Dx:; Duration: . 10/05/2014 Not-Taking Extra-Depth Diabetic Shoes with 3 Pair Custom heat-molded multi-density innersoles . 1pair shoes/3sets inserts . .; Duration: 1 year Not-Taking Extra-Depth Diabetic Shoes with 3 Pair Custom heat-molded multi-density innersoles . for 1 year . Dx:Niddm with neuropathy, foot deformity and pre-ulcerative skin lesions; Duration: . 07/10/2013 Not-Taking Breo Ellipta Not-Jaylen ing Ergocalciferol 40763 UNIT 1 capsule Oral ly; Duration: 30 day(s) Not-Taking Extra Depth Diabetic Shoes with 3 Pair Custom heat-molded multi-density innersoles for 1 year Dx: 10/06/2015 Not-Taking Prochlorperazine PRN Act manolo Potassium Chloride ER Active PriLOSEC 20 MG 1 capsule Orally Once a day; Duration: 30 day(s) Active Synthroid Active Flonase 1 spray in each nostril Nasally Once a day; Duration: 30 day(s) HOLD Not-Taking Dulera Not-Taking Extra Depth Orthopedic Shoes (1 Pair) with Customized Heat Molded Multidensity Innersoles (3 Pair) as directed Dx: NIDDM/Polyneuropat hy (E11.42), Hammertoe Foot Deformity (M20.41,M20.42), Preulcerative Skin Lesion(s) (L85.1 Active tylenol Active predniSONE 10 MG Oral; Duration: 12 PRN Active hydroCHLOROthiazide 25 MG 1 tablet Orall y Once a day; Duration: 30 day(s) Not-Taking Omeprazole Active Extra Depth Orthopedic Shoes (1 Pair) with Customized Heat Molded Multidensity Innersoles (3 Pair) as directed Dx: IDDM/Polyneuropath y (E10.42), Hammertoe Foot Deformity (M20.41,M20.42), Preulcerative Skin Lesion(s) (L85.1) 04/04/2017 Not-Taking Metformin & Diet Manage Prod 500 MG as directed Orally Not-Takin g Vicodin PRN Not-Taking Ditropan Not-Taking Lantus 37 units injections Act manolo Magnesium Oxide 400 MG 1 tablet as neede d Orally Once a day; Duration: 30 day(s) Active Nucala Active Extra Depth Diabetic Shoes with 3 Pair Custom heat-molded multi-density innersoles for 1 year Dx: 10/03/2017 Not-Taking oxyCODONE HCl PRN Active Meclizine HCl 25 MG 1 tablet as needed Orally Once a day; Duration: 30 day(s) PRN Active Levothyroxine Sodium 75 MCG 1 tablet on an empty stomach in the morning Orally Once a day Active Calcitriol 0.25 MCG Oral; Duration: 30 Active K-Tab 10 MEQ 1 tablet with food Orally Twice a day; Duration: 30 day(s) Active Farxiga 10 MG 1 tablet Orally morning Not-Taking Trulicity start in 1 week stop januvia Not-Taking Declomycin Not-Takin g Furosemide Active Fluticasone Propionate Active Florastor 250 MG 1 capsule Orally Twice a day; Duration: 30 day(s) Active Ferrous Sulfate 325 (65 Fe) MG 1 tablet Orally Once a day; Duration: 30 day(s) Active Januvia Active Extra Depth Orthopedic Shoes (1 Pair) with Customized Heat Molded Multidensity Innersoles (3 Pair) as directed Dx: NIDDM/Polyneuropat hy (E11.42), Hammertoe Foot Deformity (M20.41,M20.42), Preulcerative Skin Lesion(s) (L85.1 Active Ibuprofen 800mg 1 tablet as needed Orally every 6 hrs PRN Active HYDROcodone-Acetaminophen 7.5-325 MG 1 tablet as needed Orally every 6 hrs Active Gabapentin 100 MG 1 capsule Orally morning 400 MG at night Active Immunizations Vaccine Route Administration Date Status Comme nts Influenza Unknown 01/13/2015 Administered Influenza Unknown 03/20/2016 Administered Influenza Unknown 03/05/2017 Administered Influenza Unknown 01/30/2022 Administered Influenza Unknown 12/29/2022 Administered Pneumococcal Unknown 02/17/2013 Administered COVID-19 Moderna Vaccine Unknown 01/30/2022 Administere d 05/27/20,06/28/20 12/14/20,05/02/20 Social History Tobacco Use: Social History Observation [...] diabetic polyneuropathy (E11.42) Active confirmed Problem Acquired hammer toe of right foot (713315769694 9105) Other hammer toe(s) (acquired), right foot (M20.41) Active confirmed Problem Acquired hammer toe of left foot (176474115986 9103) Other hammer toe(s) (acquired), left foot (M20.42) Active confirmed Vital Signs Blood pressure diastolic 65 mm Hg 09/24/2024 Height 5 ft 3 in in 09/24/2024 Blood pressure systolic 130 mm Hg 09/24/2024 Weight 257 lbs 09/24/2024 BMI 45.52 kg/m2 09/24/2024 Procedures Procedure Date Ordered Date Performed Result Body Sit e 05016-SZKRCBG NAIL, 6 OR MORE 03/06/2024 N/A 76494-YERD SKIN LESIONS, 2 TO 4 03/06/2024 N/A 11245-VGBHVUO NAIL, 6 OR MORE 05/12/2024 N/A 81570-JOJT SKIN LESIONS, 2 TO 4 05/12/2024 N/A Encounters Encounter Location Date Provider Diagnosis [address] [address] 12/27/2023 Alexis Martinez Type 1 diabetes mellitus [...] M76.61 and Achilles tendinitis, left leg M76.[address] [address] 03/06/2024 Sushila Heredia Type 1 diabetes mellitus with diabetic polyneuropathy E10.42 and Tinea unguium B35.[address] [address] 05/12/2024 Sushila Heredia Type 2 diabetes mellitus with diabetic polyneuropathy E11.42 and Tinea unguium B35.[address] [address] 07/18/2024 Brittany Montiel Type 2 diabetes mellitus with diabetic polyneuropathy E11.42 ; Other hammer toe(s) (acquired), right foot M20.41 ; Tinea unguium B35.1 ; Other hammer toe(s) (acquired), left foot M20.42 and Pre-ulcerative calluses L84 [address] [address] 09/24/2024 Sushila Heredia Type 2 diabetes mellitus with diabetic polyneuropathy E11.42 and Tinea unguium B35.[address] [place] [address] 12/10/2023 Alexis Martinez Assessments Encounter Date Diagnosis [...] mellitus with diabetic polyneuropathy (ICD-10 - E11.42) 09/24/2024 Type 2 diabetes mellitus with diabetic polyneuropathy (ICD-10 - E11.42) 09/24/2024 Tinea unguium (ICD-10 - B35.1) 07/18/2024 Tinea unguium (ICD-10 - B35.1) 12/27/2023 Tinea unguium (ICD-10 - B35.1) 12/27/2023 Ingrowing nail (ICD-10 - L60.0) 07/18/2024 Other hammer toe(s) (acquired), left foot (ICD-10 - M20.42) 12/27/2023 Pain in right toe(s) (ICD-10 - M79.674) 07/18/2024 Pre-ulcerative calluses (ICD-10 - L84) 12/27/2023 Pain in left toe(s) (ICD-10 - [...] Achilles tendinitis, left leg (ICD-10 - M76.62) 09/24/2024 Other Patient Educated with: DIABETIC FOOT CARE INSTRUCTIONS. pdf (DIABETIC FOOT CARE INSTRUCTIONS. pdf) Plan Of Treatment Pending Test Test Name Order Date X ray : Foot, left 2V 10/03/2017 X ray : Foot, right 2V 10/03/2017 X ray : Foot, right 3V 04/10/2022 64342-VYYRDJW NAIL, 6 OR MORE 03/06/2024 34710-EZUPGIV NAIL, 6 OR MORE 05/12/2024 75893-OHTVZBZ NAIL, 6 OR MORE 10/04/2016 15279-DDURAAI NAIL, 6 OR MORE 04/04/2017 36735-UIUHTQF NAIL, 6 OR MORE 10/03/2017 47827-JXDDVEX NAIL, 6 OR MORE 04/08/2018 40794-ZQMXSPG NAIL, 6 OR MORE 04/03/2013 01604-CROVUZG NAIL, 6 OR MORE 07/10/2013 44893-ENYGFUL NAIL, 6 OR MORE 10/16/2013 24150-JOEHXRM NAIL, 6 OR MORE 01/21/2014 37276-XYXOAQC NAIL, 6 OR MORE 06/04/2014 47806-XXOTVHY NAIL, 6 OR MORE 10/05/2014 93138-EOKITTR NAIL, 6 OR MORE 01/06/2015 59999-SPZBOQX NAIL, 6 OR MORE 04/07/2015 71925-MPWXUJZ NAIL, 6 OR MORE 10/06/2015 79195-POQBYBX NAIL, 6 OR MORE 04/05/2016 53358-KHQRELE NAIL, 1-5 10/30/2012 88888-GIFRGOE NAIL, 1-5 01/16/2013 83281-BVBOGJW NAIL, 1-5 09/05/2012 15510-EJXFNIK NAIL, 1-5 07/18/2012 12138-RZDPVTD NAIL, 1-5 07/31/2012 56749-Ufzxmbgg Plate 07/31/2012 58297-Zddhxays Plate 09/05/2012 86449-Ycvsexpl Plate 07/18/2012 33974-Rxjaklai Plate 10/03/2017 44616-Alyqkrao Plate 10/16/2013 60817-Dhgmorfm Plate 04/04/2017 27092-SJYR SKIN LESIONS, OVER 4 07/19/19 13 67968-FSCU SKIN LESIONS, OVER 4 09/06/19 13 63100-KMFM SKIN LESIONS, OVER 4 08/01/19 13 95818-KTOI SKIN LESIONS, OVER 4 07/11/19 14 37688-NWEF SKIN LESIONS, OVER 4 01/17/20 13 22111-MQUH SKIN LESIONS, OVER 4 04/03/20 13 78538-TWKH SKIN LESIONS, OVER 4 04/05/20 16 27704-MBNF SKIN LESIONS, OVER 4 10/05/19 17 39157-FYJX SKIN LESIONS, OVER 4 10/06/19 16 10860-ODNU SKIN LESIONS, OVER 4 04/07/20 15 09215-RMXU SKIN LESIONS, OVER 4 01/07/20 15 13868-ARPP SKIN LESIONS, OVER 4 10/06/19 15 19390-RCJL SKIN LESIONS, OVER 4 06/04/19 15 40080-JENV SKIN LESIONS, OVER 4 01/22/20 14 06741-JULV SKIN LESIONS, OVER 4 10/17/19 14 82926-YCJK SKIN LESIONS, 2 TO 4 04/04/20 17 86454-YKZS SKIN LESIONS, 2 TO 4 10/04/19 18 47767-OSOB SKIN LESIONS, 2 TO 4 10/08/19 19 88323-OEYZ SKIN LESIONS, 2 TO 4 01/28/20 19 17311-SHCQ SKIN LESIONS, 2 TO 4 04/09/20 19 03862-XDQM SKIN LESIONS, 2 TO 4 06/12/19 20 64431-TYCF SKIN LESIONS, 2 TO 4 10/13/19 20 62015-NLSF SKIN LESIONS, 2 TO 4 12/15/19 20 79357-SUOS SKIN LESIONS, 2 TO 4 02/16/20 20 73256-ZDVV SKIN LESIONS, 2 TO 4 05/13/19 61442-DSPD SKIN LESIONS, 2 TO 4 08/12/19 21 16398-DEPY SKIN LESIONS, 2 TO 4 10/19/19 21 94064-UNZG SKIN LESIONS, 2 TO 4 12/23/19 13463-EGHR SKIN LESIONS, 2 TO 4 02/24/20 21 97426-BMAJ SKIN LESIONS, 2 TO 4 05/09/19 22 21866-SPWE SKIN LESIONS, 2 TO 4 07/15/19 22 84545-FSZS SKIN LESIONS, 2 TO 4 05/12/19 25 75080-ODME SKIN LESIONS, 2 TO 4 03/06/20 24 68009-MTNI SKIN LESIONS, 2 TO 4 04/08/20 18 13070-ZPSO NAIL(S) 01/16/2013 05382-OYRZ NAIL(S) 10/30/2012 Next Appt Details Provider Name:Sushila brasher, 12/03/2024 03:30:00 PM, [address] [place] [address], [phone], Provider Name:Sushila brasher, 02/05/2025 02:30:00 PM, [address] [place] [address], [phone], Insurance Providers Payer Name Payer Address Payer Phone Subscriber Number Group Number Insured Name Patient Relationship to Insured Coverage Start Date Coverage End Date Medicare National Govt Sv[employer] [address] [place] [address] [id number] Kye Vy Self - patient is the insured [employer] ([employer]) [address] [place] [address] [id number] LouloukassyRiayn Self - patient is the insured for Life [address] [place] [address] [id number] KyeRiayn Self - patient is the insured Medical [...] aortic valve 03/16/21 Hospitalization History Reason Date(Month/Year) [facility]- Constipation, swelling , 12/21 [facility]-Systemic [facility] 9 day stay- Discharged to rehab-12 days-Went back to [facility] 10/2018-01/10/2019 [facility], Cervical disc replacement, [address] [facility]. 05/07/2017
--- OUTSIDE RECORDS SUMMARY | 2024-11-19 11:44 | XMS_ITS | Clinical Summary ---
Author Organization [facility] ity Address [address] [place] [address] Care Team Providers Care Brinell Tester Name Role Phone Omid Jimenes MD Primary [...] Vaccine ( - 2023-2 5 season) 2023 Depression Screening 04/30/2024 Influenza Vaccine (#1) 2024 HIB Vaccines Aged Out No longer [...] age to complete this topic Care Teams Brinell Tester Relationship Specialty Start Date End Date Omid Jimenes MD PCP - General 12/21/10
--- OUTSIDE RECORDS SUMMARY | 2024-11-19 11:44 | XMS_ITS | Clinical Summary ---
Author Organization [facility] Facility Address [address] [address] Care Team Providers Care Transport Rn Name Role Phone Omid Jimenes MD Primary Care Provider Allergies Active Allergy Reactions Criticality Noted Date Comments Atorvastatin Other (see comments) 10/30/2018 Cramps Bacitracin Other (see comments),Swelling 06/15/2017 Cephalexin 06/07/2020 Thinks it may have made rash worse Charentais Melon (Citizen [place] Melon) Rash Low 11/01/2018 Erythromycin Other (see [...] mouth in the morning. 9 Active Tiotropium Madelia Monohydrate (Spiriva Respimat) 1.25 MCG/ACT aerosol solution [...] and able she would consider consultation in [place] right now she feels that the pain [...] for shortness of breath. Outpatient management with art studio teacher Dr. Berrios. No current symptoms. Breathing comfortably. [...] 05/26/2019 Component Date Value Ref Range Status SODIUM 05/26/2019 138 133 - 146 mmol/L Final POTASSIUM 05/26/2019 4.0 3.3 - 5.1 mmol/L Final CHLORIDE 05/26/2019 95* 96 - 108 mmol/L Final CO2 05/26/2019 29 21 - 35 mmol/L Final BUN 05/26/2019 18 6 - 19 mg/dL Final CREATININE 05/26/2019 1.10 0.5 - 1.5 mg/dL Final GLUCOSE 05/26/2019 225* 70 - 99 mg/dL Final ALBUMIN 05/26/2019 3.6* 3.9 - 4.8 g/dL Final TOTAL PROTEIN 05/26/2019 7.8 6.5 - 8.0 g/dL Final CALCIUM 05/26/2019 9.7 8.4 - 10.3 mg/dL Final ALKALINE PHOSPHATASE 05/26/2019 110 39 - 117 U/L Final TOTAL BILIRUBIN 05/26/2019 0.3 0.0 - 1.2 mg/dL Final AST 05/26/2019 45* 0 - 37 U/L Final ALT 05/26/2019 21 0 - 40 U/L Final GLOBULIN 05/26/2019 4.2 1 - 4.8 g/dL Final EGFR 05/26/2019 49* >59 mL/min/1.73m2 Final If patient is black, multiply result by 1.159. Estimated glomerular filtration rate calculated using the CKD-EPI equation. ANION GAP 05/26/2019 18 10 - 20 mmol/L Final URIC ACID 05/26/2019 6.3 2.4 - 7.0 [...] & Plan: Patient has been residing at [place] [facility] for some time now. [...] Patient is followed by by an outside product marketing manager. She is been maintained on Lasix 40 [...] long-term relief and she will contact the size painter for consideration of a corticosteroid epidural [...] 50% of this 20-minute visit was spent [id number] conversation with the patient and her present coordinating my care with out of her primary care physician as well as her orthopedic surgeon and size painter. Last Assessment & Plan: This continues [...] of this 29-minute visit was spent in [id number] conversation with the patient and her present [...] Medications are be left unchanged and enlarged department administrator on tools and utensils and be used [...] Encounters Date Type Department Care Team Description 10/17/2024 Refill [facility] [address] [place] [address] Lewis Cohen MD 09/18/2024 Orders Only [facility] [address] [place] [address] Lewis Cohen MD Stage 3b chronic kidney disease (HCC); Type 2 diabetes mellitus with diabetic chronic kidney disease (HCC) 09/04/2024 2:15 PM EDT Office Visit [facility] [address] [place] [address] Lewis Cohen MD Stage 3b chronic kidney disease (HCC) (Primary Dx); Type 2 diabetes mellitus with diabetic chronic kidney disease (HCC) 09/02/2024 Orders Only [facility] [address] [phone] Lewis Cohen MD 09/01/2024 Orders Only [facility] [address] [phone] Lewis Cohen MD Stage 3a chronic kidney disease (HCC) (Primary Dx); Renal osteodystrophy 08/20/2024 Orders Only [facility] [address] [phone] Estefania Moreno [place] Type 2 diabetes mellitus with diabetic chronic kidney disease (HCC) (Primary Dx); Stage 3 chronic kidney disease, not otherwise specified (HCC) 08/20/2024 Office Communication [facility] [address] [phone] Marlene Holley from Last 3 Months Immunizations Immunization Administration [...] Visit [facility] [address]BB [address] [place] [phone] Lewis Cohen MD [address] [facility] [address] [place] [address] Health Maintenance Due Date Last Done Comments Pneumococcal Vaccine: 50+ Years (2 of 2 - PCV) 06/28/2016 06/29/2015, 02/17/2013, 04/02/2012, Additional history exists Diabetes: Hemoglobin A1C 05/28/2020 02/02/2020 Diabetes: Pedal Pulse Checked 05/28/2020 Diabetes: Sensory Foot Exam 05/28/2020 Diabetes: Visual Foot Exam 05/28/2020 Diabetes: Ophthalmology Exam 10/23/2024 10/24/2023 Influenza Vaccine (#1) 2024 , 03/05/2017, 03/20/2016, Additional history exists Hepatitis [...] orde r comments Comment: Chronic Kidney Disease: Estimated GFR < 60 mL/min/1.73m2 Severe Kidney Disease: Estimated GFR < 15 mL/min/1.73m2 09/02/2024 12:3 7 PM EDT 09/02/2024 12:37 PM EDT us Lewis Cohen MD LAB BLOOD ORDERABLES Final Re sult [place] See order comments [place] [address] * (ABNORMAL) CBC and differential (09/02/2024 12:37 [...] - 0.012 X10*3/uL See order comments Blood specimen (specimen) Venous blood / Unknown 09/02/2024 12:37 PM EDT 09/02/2024 12:37 PM EDT us Lewis Cohen MD LAB BLOOD ORDERABLES Final Re sult Performing Organization Address [facility] de Phone Number [facility] See order comments [place] [address] * (ABNORMAL) BUN (09/02/2024 12:37 PM EDT) BUN 23(H) 9 - 16 mg/dL See order comments 09/02/2024 12:3 7 PM EDT 09/02/2024 12:37 PM EDT us Lewis Cohen MD LAB BLOOD ORDERABLES Final Re sult Performing Organization Address [facility] de Phone Number [place] See order comments [place] [address] * Calcium (09/02/2024 12:37 PM EDT) Calcium 9.6 8.4 - 10.2 mg/dL See order comments 09/02/2024 12:3 7 PM EDT 09/02/2024 12:37 PM EDT us Lewis Cohen MD LAB BLOOD ORDERABLES Final Re sult Performing Organization Address [facility] Phone Number [facility] See order comments [place] [address] * (ABNORMAL) Electrolyte panel (09/02/2024 12:37 PM [...] ORDERABLES Final Re sult Performing Organization Address [facility] de Phone Number [place] See order comments [place] [address] * (ABNORMAL) Blood Panel (02/02/2020 12:00 AM [...] mg/dl PVNMA 02/02/2020 us [facility] Conversion LAB [id number] LICITED RESULTS Final Result PVNMA from Last 3 Months or Most Recently Relevant to Health Maintenance Insurance Medicare [facility] Medicare [facility] Care Teams Transport Rn Relationship Specialty Start Date End Date Omid Jimenes MD [address] [place], [place] PCP - General 05/10/20
--- OUTSIDE RECORDS SUMMARY | 2024-11-19 11:44 | XMS_ITS | Patient Health Record ---
Author Organization Cameron Monge MD Address [address] [place] [address] Support Name Relationship Address Phone Kye Vy Guarantor Unknown Allergies Allergen (clinical drug ingredient) Drug/Non Drug Allergy documented on EMR Reaction Allergy Type Onset Date Status bacitracin Bacitracin (uncoded) Unknown Allergy Active erythromycin Erythromycin (uncoded) Unknown Allergy Active Substance with sulfonamide structure and antibacterial mechanism of action (substance) Sulfa (uncoded) Unknown Allergy Active tobramycin Tobramycin (uncoded) Unknown Allergy Active Reason For Referral No Information Medications Medication SIG (Take, Route, Fr equency, Duration) Notes Start Date End Date Status PriLOSEC Active flovent HFA Active albuterol Active Ditropan XL Active Valsartan Active Metformin Active Levothyroxine Sodium Active Problems Problem Type SNOMED Code ICD Code Onset Dates Problem Status W/U Status Risk Notes Problem Spinal stenosis of lumbar region (22266202) Spinal stenosis of lumbar region (724.02) Active confirmed Problem Lumbosacral spondylosis without myelopathy (45313702) Lumbosacral spondylosis without myelopathy (721.3) Active confirmed Plan Of Treatment No Information Insurance Providers Payer Name Payer Address Payer Phone Subscriber Number Group Number Insured Name Patient Relationship to Insured Coverage Start Date Coverage End Date [facility] [address] [place], [place] [id number] Vy Fishman Self - patient is the insured [facility] [id number] Vy Fishman Self - patient is the insured Medical (General) History Medical History History ICD Code DM hypothyrodism asthma right retinal vein occlusion HTN HPL Fe def anemia Surgical History Surgery Date(Month/Year) bilateral TKR 2009 bilateral cataract surgery 2011
== END 2024-11-19 11:41 | disposition home or self-care (01) ==
LOC: HO.PMC 10:43
PROVIDERS: PCP Internal Medicine; Visit Provider Internal Medicine
DX: M19.011 Primary osteoarthritis, right shoulder (principal); M19.012 Primary osteoarthritis, left shoulder; M70.61 Trochanteric bursitis, right hip; M70.62 Trochanteric bursitis, left hip
CPT/HCPCS: 99214

== ENCOUNTER → 2024-11-19 10:42 | Outpatient (BNVA) | payer MEDICARE, OTHER, SELFPAY | PROVIDERS: PCP Internal Medicine; Visit Provider Internal Medicine | DX: Z51.81 Encounter for therapeutic drug level monitoring (principal); M19.011 Primary osteoarthritis, right shoulder; M19.012 Primary osteoarthritis, left shoulder; M70.61 Trochanteric bursitis, right hip; M70.62 Trochanteric bursitis, left hip; Z79.891 Long term (current) use of opiate analgesic | CPT/HCPCS: 99212 ==

== ENCOUNTER 2024-11-27 06:26 | Outpatient (REF) | payer MEDICARE, OTHER, SELFPAY ==
--- OUTSIDE RECORDS SUMMARY | 2024-09-29 10:00 | XMS_ITS ---
Author Organization Omid Jimenes MD Address [address] [place] [phone] Care Team Providers Care Telesales Professional Name Role Phone Omid Jimenes Primary Care [...] Drug Allergy Activ e REASON FOR VISIT 6 month Medications Medication [...] a day for 90 days Active Nystop 593229 UNIT/GM APPLY ONE APPLICAT ION EXTERNALLY TWO [...] kg/m2 09/29/2024 weight is down 6 pounds [facility] 02-29-24 Encounters Encounter Location Date Provider Diagnosis Omid Jimenes MD [address] [place], [place] [phone] 09/29/2024 Omid Jimenes Type 2 diabetes kel [...] Follow Up: 3 Months, Reason: Provider Name:Omid Akhtar ier, 01/02/2025 02:00:00 PM, [address] [place] [address], [address], [phone], Provider Name:Omid Akhtar ier, 02/24/2025 07:15:00 AM, [address] [place] [address], [address], [phone], Provider Name:Omid Akhtar ier, 03/03/2025 02:30:00 PM, [address] [place] [address], [address], [phone], Progress Notes * Vy WAITE LDOB:1945 (79 yo F)Acc No.[id number]:09/29/2024 Progress Notes Patient: Vy VILLAFANA Provider: Naomie Jimenes MD :1945 A ge:79 Y S ex:Female Date:09/29/2024 Address:[address] [place] [address] Subjective: * Chief Complaints: * 6 month [...] allow to dissolve Orally twicea day Nystop 183226 UNIT/GM Powder APPLY ONE APPLICATION EXTERNALLY TWO [...] to dissolve Orally twicea day Taking Nystop 279982 UNIT/GM Powder APPLY ONE APPLICATION EXTERNALLY TWO [...] MD Date: 0 09/29/2024 Generated for Jeannie grady/Kevin/Willisitting on: 0 11/27/2024 06:29 AM EDT History and Physical Notes * [...]
--- NOTE | ~2024-11-27 | FL_ITS ---
EXAMINATION: XR FLUOROSCOPY WITH IMAGES CLINICAL INFORMATION: Left shoulder pain, therapeutic injection. COMPARISON: None available. TECHNIQUE: Fluoroscopy provided to: Dr. Scherer Fluoroscopy time: 0.0 minutes DAP: 0.10000 mGycm2 Images: 1 FINDINGS: Solitary spot image of the left shoulder during pain management injection. Please refer to the full procedural report for details. FL/FL guidance in treatment room IMPRESSION: Fluoroscopic guidance. Electronically signed by: Eliseo Mendez MD 11/27/2024 01:43 PM EDT
--- NOTE | ~2024-11-27 | FL_ITS ---
EXAMINATION: FL GUIDANCE ONLY HISTORY: M25.552 - Pain in left hip COMPARISON: None available. TECHNIQUE: Fluoroscopy time: 0.1 minute. Cumulative Dose: 4.45 mGy. DAP: 0.0435 mGym2 Images: 1. FINDINGS: A single fluoroscopic spot film of the left hip demonstrates a needle in place and contrast material in the joint space. FL/FL guidance in treatment room IMPRESSION: Fluoroscopy during procedure. Please see procedure report for additional information. Electronically signed by: Patrice Rhodes MD 11/27/2024 01:45 PM EDT
--- OUTSIDE RECORDS SUMMARY | 2024-11-27 06:29 | XMS_ITS | Patient Health Record ---
Author Organization Cameron Monge MD Address [address] [place] [address] Support Name Relationship Address Phone Kye Vy [...] Notes Problem Spinal stenosis of lumbar region (45024870) Spinal stenosis of lumbar region (724.02) Active confirmed Problem Lumbosacral spondylosis without myelopathy (39325228) Lumbosacral spondylosis without myelopathy (721.3) Active confirmed Plan Of Treatment No Information Insurance Providers Payer Name Payer Address Payer Phone Subscriber Number Group Number Insured Name Patient Relationship to Insured Coverage Start Date Coverage End Date [facility] [address] [place], [place] [id number] Vy Fishman Self - patient is the insured [facility] [id number] Vy Fishman Self - patient is the insured Medical (General) History Medical History History ICD Code DM hypothyrodism asthma right retinal vein occlusion HTN HPL Fe def anemia Surgical History Surgery Date(Month/Year) bilateral TKR 2009 bilateral cataract surgery 2011
--- OUTSIDE RECORDS SUMMARY | 2024-11-27 06:29 | XMS_ITS | Encounter Summary ---
Author Organization [facility] Address [address] [place] [address] Phone Care Team Providers Care Corporate Coordinator Name Role Phone Omid Jimenes MD Primary Care Provider Ramsey Ortez MD Unavailable [email or web address] Omid Jimenes MD Unavailable [phone] Emmanuel Lyman MD Unavailable [phone] Lizandro Guallpa MD Unavailable Cameron Vital MD, MSc Unavailable [phone] Encounter Details Date Type Department Care Team (Late st Contact Info) Description 12/09/2018 Procedure Pass [facility] Endoscopy Admitting Dept Virtual Department [address] [place] [address] Social History Tobacco Use Types [...] st Contact Info) Description 09/25/[address] [facility] Cardiac US [address] [place] [address] 12/02/2024 11:10 AM EDT Office Visit [facility] Rheumatology [address] [place] [address] Geraldine Jay MD, MPH [address] [facility] [facility], [address] [place] [address] [email or web address] 02/18/2025 1:[address] [facility] Cardiac US [address] [place] [address] Emmanuel Lyman MD [address] [facility] [address] [id number] [place] [address] [email or web address] 02/18/2025 2:30 PM EDT Office Visit [facility] Interventional Cardiac Associates [address] [facility] 5th Floor, [address] [place] [address] Leni Gramajo, ELIS [address] [facility] [address] [place] [address] [email or web address] documented as of this encounter Visit Diagnoses Not on filedocumented in this encounter Additional Health Concerns Infection Onset Date Last Indicated Resolved Time CoV-Risk 12/07/2023 12/07/2023 12/18/2023 1:22 AM EDT documented as of this encounter Care Teams Corporate Coordinator Relationship Specialty Start Date End Date Omid Jimenes MD [address] [place] [address] [place] [address] PCP - General 10/28/13 Ramsey Ortez MD [email or web address] Historical LMR Provider 02/15/17 03/02/21 Omid Jimenes MD [address] [place] [address] [place] [address] Historical LMR Provider 02/15/17 Emmanuel Lyman MD [address] [place] [address] [id number] [address] [email or web address] Material Distributor Cardiology 11/22/20 Lizandro Guallpa MD [address] [place] [address] [id number] [place] [address] [email or web address] 03/03/21 Cameron Vital MD, MSc [address] [place], [place] [id number] [place] [address] [email or web address] Material Distributor Cardiology 03/03/21 documented as of this encounter Additional Source Comments The information contained in this document represents components of the legal health record. It is not the complete legal health record.[facility]
--- OUTSIDE RECORDS SUMMARY | 2024-11-27 06:29 | XMS_ITS | Patient Health Record ---
Author Organization [facility] Address [address] [place] [address] Care Team Providers Care Team Leader Surgery Name Role Phone Omid Jimenes MD Primary Care Provider Sushila Campos Unavailable [phone] Alexis Martinez Unavailable [phone] Brittany Montiel Unavailable [phone] Allergies Allergen (clinical drug ingredient) Drug/Non Drug [...] 07/10/2013 Not-Taking Breo Ellipta Not-Jaylen ing Ergocalciferol 95874 UNIT 1 capsule Oral ly; Duration: 30 [...] Problem Acquired hammer toe of right foot (501637272627 9105) Other hammer toe(s) (acquired), right foot (M20.41) Active confirmed Problem Acquired hammer toe of left foot (585765712379 9103) Other hammer toe(s) (acquired), left foot (M20.42) Active confirmed Vital Signs Blood pressure diastolic 65 mm Hg 09/24/2024 Height 5 ft 3 in in 09/24/2024 Blood pressure systolic 130 mm Hg 09/24/2024 Weight 257 lbs 09/24/2024 BMI 45.52 kg/m2 09/24/2024 Procedures Procedure Date Ordered Date Performed Result Body Sit e 89381-SBFJTJQ NAIL, 6 OR MORE 03/06/2024 N/A 91818-EYSO SKIN LESIONS, 2 TO 4 03/06/2024 N/A 27103-GDWQWRX NAIL, 6 OR MORE 05/12/2024 N/A 83855-XCUF SKIN LESIONS, 2 TO 4 05/12/2024 N/A Encounters Encounter Location Date Provider Diagnosis [address] [address] 12/27/2023 Alexis Martinez Type 1 diabetes mellitus [...] M76.61 and Achilles tendinitis, left leg M76.[address] [address] 03/06/2024 Sushila Heredia Type 1 diabetes mellitus with diabetic polyneuropathy E10.42 and Tinea unguium B35.[address] [address] 05/12/2024 Sushila Heredia Type 2 diabetes mellitus with diabetic polyneuropathy E11.42 and Tinea unguium B35.[address] [address] 07/18/2024 Brittany Montiel Type 2 diabetes mellitus with diabetic polyneuropathy E11.42 ; Other hammer toe(s) (acquired), right foot M20.41 ; Tinea unguium B35.1 ; Other hammer toe(s) (acquired), left foot M20.42 and Pre-ulcerative calluses L[address] [address] 09/24/2024 Sushila Heredia Type 2 diabetes mellitus with diabetic polyneuropathy E11.42 and Tinea unguium B35.[address] [place] [address] 12/10/2023 Alexis Martinez Assessments Encounter Date Diagnosis [...] X ray : Foot, right 3V 04/10/2022 76885-DMRHOKI NAIL, 6 OR MORE 03/06/2024 70932-XSSSROJ NAIL, 6 OR MORE 05/12/2024 62261-UCIVEFU NAIL, 6 OR MORE 10/04/2016 66599-OZWNDBR NAIL, 6 OR MORE 04/04/2017 95636-ZYDHSDI NAIL, 6 OR MORE 10/03/2017 47102-COLOSZM NAIL, 6 OR MORE 04/08/2018 13884-PYDBEMP NAIL, 6 OR MORE 04/03/2013 77976-DGESLZE NAIL, 6 OR MORE 07/10/2013 28137-LNJPUFI NAIL, 6 OR MORE 10/16/2013 39338-FLXNKID NAIL, 6 OR MORE 01/21/2014 22492-MVNBXUC NAIL, 6 OR MORE 06/04/2014 91653-SBUKDFJ NAIL, 6 OR MORE 10/05/2014 67352-UIVORGK NAIL, 6 OR MORE 01/06/2015 41740-TTQVUVS NAIL, 6 OR MORE 04/07/2015 37133-FPKJRNV NAIL, 6 OR MORE 10/06/2015 11630-FRGFPEP NAIL, 6 OR MORE 04/05/2016 68005-BUWZRIF NAIL, 1-5 10/30/2012 41027-MYBSFIA NAIL, 1-5 01/16/2013 12519-QKHHDIP NAIL, 1-5 09/05/2012 27580-LWOSKMR NAIL, 1-5 07/18/2012 47233-BOQTLKK NAIL, 1-5 07/31/2012 30822-Cccalzvu Plate 07/31/2012 96970-Wdxnjszx Plate 09/05/2012 84628-Fxxrpdad Plate 07/18/2012 20739-Ceubtdhx Plate 10/03/2017 14039-Ktdskbpw Plate 10/16/2013 02168-Ohdasvcw Plate 04/04/2017 78563-KKXF SKIN LESIONS, OVER 4 07/19/19 13 78357-FYQU SKIN LESIONS, OVER 4 09/06/19 13 80691-VJHZ SKIN LESIONS, OVER 4 08/01/19 13 11561-HVTP SKIN LESIONS, OVER 4 07/11/19 14 91872-IAGB SKIN LESIONS, OVER 4 01/17/20 13 60093-XUHM SKIN LESIONS, OVER 4 04/03/20 13 45392-VSYE SKIN LESIONS, OVER 4 04/05/20 16 61638-CDWB SKIN LESIONS, OVER 4 10/05/19 17 15549-KUEB SKIN LESIONS, OVER 4 10/06/19 16 52855-GCRW SKIN LESIONS, OVER 4 04/07/20 15 25502-VXTG SKIN LESIONS, OVER 4 01/07/20 15 37777-JOAA SKIN LESIONS, OVER 4 10/06/19 15 81895-XLMX SKIN LESIONS, OVER 4 06/04/19 15 40117-MAJF SKIN LESIONS, OVER 4 01/22/20 14 57724-DKFU SKIN LESIONS, OVER 4 10/17/19 14 86280-KCIP SKIN LESIONS, 2 TO 4 04/04/20 17 77568-OMVV SKIN LESIONS, 2 TO 4 10/04/19 18 81780-SQYJ SKIN LESIONS, 2 TO 4 10/08/19 19 70718-CCHH SKIN LESIONS, 2 TO 4 01/28/20 19 16401-GHFB SKIN LESIONS, 2 TO 4 04/09/20 19 22369-VDGL SKIN LESIONS, 2 TO 4 06/12/19 20 53720-KVWS SKIN LESIONS, 2 TO 4 10/13/19 20 45988-ASHS SKIN LESIONS, 2 TO 4 12/15/19 20 43338-YBOI SKIN LESIONS, 2 TO 4 02/16/20 20 82510-DOLV SKIN LESIONS, 2 TO 4 05/13/19 96671-UUYV SKIN LESIONS, 2 TO 4 08/12/19 21 33499-TOFU SKIN LESIONS, 2 TO 4 10/19/19 21 28327-ZVAJ SKIN LESIONS, 2 TO 4 12/23/19 89472-QHQQ SKIN LESIONS, 2 TO 4 02/24/20 21 25349-AMET SKIN LESIONS, 2 TO 4 05/09/19 22 63877-YLZO SKIN LESIONS, 2 TO 4 07/15/19 22 07499-OANK SKIN LESIONS, 2 TO 4 05/12/19 25 60329-EQCW SKIN LESIONS, 2 TO 4 03/06/20 24 65238-SRLE SKIN LESIONS, 2 TO 4 04/08/20 18 34540-PACU NAIL(S) 01/16/2013 05097-GCWG NAIL(S) 10/30/2012 Next Appt Details Provider Name:Sushila brasher, 12/03/2024 03:30:00 PM, [address] [place] [address], [phone], Provider Name:Sushila brasher, 02/05/2025 02:30:00 PM, [address] [place] [address], [phone], Insurance Providers Payer Name Payer Address Payer Phone Subscriber Number Group Number Insured Name Patient Relationship to Insured Coverage Start Date Coverage End Date Medicare National [employer]t [employer] [address] [facility] [place] [address] [id number] Kye Vy Self - patient is the insured [employer] [address] [place] [address] [id number] LouloukassyRiayn Self - patient is the insured for Life [address] [place] [address] [phone] [id number] KyeRiayn Self - patient is the insured [...]
--- OUTSIDE RECORDS SUMMARY | 2024-11-27 06:29 | XMS_ITS | Clinical Summary ---
Author Organization [facility] it[facility] Address [address] [place] [address] Care Team Providers Care Import Export Manager Name Role Phone Omid Jimenes MD [...] age to complete this topic Care Teams Import Export Manager Relationship Specialty Start Date End Date Omid Jimenes MD PCP - General 12/21/10
--- OUTSIDE RECORDS SUMMARY | 2024-11-27 06:29 | XMS_ITS | Clinical Summary ---
Author Organization [facility] Facility Address [address] [address] Care Team Providers Care Knowledge Management Consultant Name Role Phone Omid Jimenes MD Primary Care Provider Allergies Active Allergy Reactions Criticality Noted Date Comments Atorvastatin Other (see comments) 10/30/2018 Cramps Bacitracin Other (see comments),Swelling 06/15/2017 Cephalexin 06/07/2020 Thinks it may have made rash worse Charentais Melon (Luxembourger Melon) Rash Low 11/01/2018 Erythromycin Other (see [...] mouth in the morning. 9 Active Tiotropium [place] Monohydrate (Spiriva Respimat) 1.25 MCG/ACT aerosol solution [...] and able she would consider consultation in [place] right now she feels that the pain [...] for shortness of breath. Outpatient management with principal accounts clerk Dr. Berrios. No current symptoms. Breathing comfortably. [...] & Plan: Patient has been residing at [facility] for some time now. She is [...] Patient is followed by by an outside equine dentist. She is been maintained on Lasix 40 [...] relief and she will contact the paint factory worker for consideration of a corticosteroid epidural injection. [...] 50% of this 20-minute visit was spent [id number] conversation with the patient and her present coordinating my care with out of her primary care physician as well as her orthopedic surgeon and paint factory worker. Last Assessment & Plan: This continues to [...] of this 29-minute visit was spent in [id number] conversation with the patient and her present [...] Medications are be left unchanged and enlarged patient coordinator on tools and utensils and be used [...] 10/17/2024 Refill [facility] [address] [place] [address] Lewis Cohen MD 09/18/2024 Orders Only [facility] [address] [place] [address] Lewis Cohen MD Stage 3b chronic kidney disease (HCC); Type 2 diabetes mellitus with diabetic chronic kidney disease (HCC) 09/04/2024 2:15 PM EDT Office Visit [facility] [address] [place] [address] Lewis Cohen MD Stage 3b chronic kidney disease (HCC) (Primary Dx); Type 2 diabetes mellitus with diabetic chronic kidney disease (HCC) 09/02/2024 Orders Only [facility] [address] [address] Lewis Cohen MD 09/01/2024 Orders Only [facility] [address] [address] Lewis Cohen MD Stage 3a chronic kidney disease (HCC) (Primary Dx); Renal osteodystrophy from Last 3 Months Immunizations Immunization Administration [...] Visit [facility] the [address] [place] [address] Lewis Cohen MD [address] [facility] [address] [place] [address] Health Maintenance Due Date Last [...] order comments [place] [address] * (ABNORMAL) CBC and differential (09/02/2024 12:37 [...] order comments [place] [address] * (ABNORMAL) BUN (09/02/2024 12:37 PM EDT) BUN 23(H) 9 - 16 mg/dL See order comments 09/02/2024 12:3 7 PM EDT 09/02/2024 12:37 PM EDT us Lewis Cohen MD LAB BLOOD ORDERABLES Final Re sult Performing Organization Address [facility] Co de Phone Number HOLJAY See order comments [place] [address] * Calcium (09/02/2024 12:37 PM EDT) Calcium 9.6 8.4 - 10.2 mg/dL See order comments 09/02/2024 12:3 7 PM EDT 09/02/2024 12:37 PM EDT Lewis Cohen MD LAB BLOOD ORDERABLES Final Re sult Performing Organization Address [facility] Co de Phone Number HOLJAY See order comments [place] [address] * (ABNORMAL) Electrolyte panel (09/02/2024 12:37 PM [...] ORDERABLES Final Re sult Performing Organization Address [facility] Co de Phone Number [place] See order comments [place] [address] * (ABNORMAL) Blood Panel (02/02/2020 12:00 AM [...] mg/dl PVNMA 02/02/2020 us [facility]version [facility] [id number] LICITED RESULTS Final Result PVNMA from Last 3 Months or Most Recently Relevant to Health Maintenance Insurance Medicare [facility] Medicare [facility] Care Teams Knowledge Management Consultant Relationship Specialty Start Date End Date Omid Jimenes MD [address] [place] [address] [address] [place], [place] PCP - General 05/10/20
--- OUTSIDE RECORDS SUMMARY | 2024-11-27 06:29 | XMS_ITS | Clinical Summary ---
Author Organization [facility] Address [facility] [place] [address] Care Team Providers Care Registered Public Health Nurse Name Role Phone Unavailable Primary Care Provider [...] Daily. Active azelastine-fluti casone (DYMISTA) 137-50 mcg/spray Doss, Non-Aerosol 1 puff in each nostril Active [...] puff into the lungs Twice daily. Active XG-Mfo-Ehwuc Acid-Lutein (ESSENTIAL WOMAN 50+) 0.4-250 mg-mcg Tablet [...] Tablet 1 Active ipratropium (ATROVENT) 0.03 % Doss, Non-Aerosol USE 2 SPRAYS BY NASAL ROUTE [...] relief and she will contact the painter shipyard for consideration of a corticosteroid epidural injection. [...] of this 29-minute visit was spent in [id number] conversation with the patient and her present [...] Medications are be left unchanged and enlarged environmental scientist on tools and utensils and be used [...] Influenza standard series) 12/29/2024 [place] [id number] [facility] [id number]
== END 2024-11-27 06:27 | disposition home or self-care (01) ==
LOC: CF 06:26
PROVIDERS: Visit Provider Internal Medicine
DX: M25.511 Pain in right shoulder (principal); M25.512 Pain in left shoulder; M25.551 Pain in right hip; M25.552 Pain in left hip; M19.011 Primary osteoarthritis, right shoulder; M19.012 Primary osteoarthritis, left shoulder
CPT/HCPCS: 20610; J2003; J2795; J3301; Q9967

== ENCOUNTER 2024-11-27 11:44 | Outpatient (AMB) | payer MEDICARE, OTHER, SELFPAY ==
[2024-11-27 11:45] VITALS: BP 112/66; PULSE 97; RESP 16; O2SAT 90; BMI 43.3
--- NOTE | 2024-11-27 11:45 | MHC.OFFVIS ---
Vital Signs 11/27/24 11:45 11/27/24 12:44 Height 5 ft 2.65 in Weight 242 lb BMI 43.3 BP 112/66 140/80 H Blood Pressure Location Lt brachial Lt brachial Position Sitting Sitting Respiration 16 16 Pulse 97 84 Pulse Source Pulse Oximeter Pulse Oximeter Pulse Oximetry (%) 90 L 94 Oxygen Delivery Method Room Air Room Air Intake Visit Reasons: Left hip/left shoulder inj w/ fluoro Allergies cephalexin (From Keflex) Allergy (Severe, Verified 11/19/24 10:56) Itching pravastatin (Pravachol) Allergy (Severe, Verified 11/19/24 10:56) cramps bacitracin Adverse Reaction (Severe, Verified 11/19/24 10:56) eye swelling dexamethasone (TobraDex) Adverse Reaction (Severe, Verified 11/19/24 10:56) redness swelling tobramycin (TobraDex) Adverse Reaction (Severe, Verified 11/19/24 10:56) redness swelling Sulfa (Sulfonamide Antibiotics) Adverse Reaction (Intermediate, Verified 11/19/24 10:56) GI upset atorvastatin (From Lipitor) Adverse Reaction (Verified 11/19/24 10:56) Unknown Beef Containing Products Adverse Reaction (Verified 11/19/24 10:56) Unknown erythromycin base Adverse Reaction (Verified 11/19/24 10:56) Unknown Penicillins (PCN) Adverse Reaction (Verified 11/19/24 10:56) Unknown sulfacetamide (From Sulfacet-R) Adverse Reaction (Verified 11/19/24 10:56) Unknown sulfur (From Sulfacet-R) Adverse Reaction (Verified 11/19/24 10:56) Unknown topiramate (From Topamax) Adverse Reaction (Verified 11/19/24 10:56) Unknown HPI HPI Left hip/left shoulder inj w/ fluoro: Details: Patient presents for scheduled procedure. Denies any recent cough, cold, infection, fever or other significant changes in medical history since last office visit. [facility] Medical History (Updated 11/27/24 @ 12:07 by Julissa Ayers, MOTOR COACH OPERATOR, ELEMENTARY SCHOOL SOCIAL WORKER) COPD (chronic obstructive pulmonary disease) Morbid obesity Acute systolic congestive heart failure Osteoporosis Dyspnea Chronic pain syndrome Gouty arthritis Arthritis of both glenohumeral joints Neurogenic claudication due to lumbar spinal stenosis Asthma CLEVE on CPAP Chronic restrictive lung disease Tracheitis Dyspnea Surgical History Status post cervical spinal fusion History of eyelid surgery History of knee replacement History of cholecystectomy Family History Father HTN (hypertension) Stroke Diabetes Mother Atrial fibrillation HTN (hypertension) Social History Alcohol intake: never Patient Tobacco Use Status: Former Tobacco user Tobacco use type: Cigarette Years Smoked: 20 years Second Hand Smoke Exposure: No Physical Exam Vital Signs: Last Vital Signs Pulse 84 11/27/24 12:44 Resp 16 11/27/24 12:44 BP 140/80 H 11/27/24 12:44 Pulse Ox 94 11/27/24 12:44 Oxygen Delivery Method Room Air 11/27/24 12:44 BMI result Body Mass Index 43.3 Office Procedures AMB Joint Injection/Aspiration Joint Injection/Aspiration Primary Site: left shoulder Secondary Site: other (Left hip) Prep: site was prepped using sterile technique Injected: 20 mg of, Kenalog and in the joint (in each of the 2 joints) Approach Used: other (Lateral approach for hip arthrogram; anterior approach for shoulder arthrogram) Procedure: The patient tolerated the procedure well Coding 02063 - Large joint (hip & shoulder) Procedure code (CPT) selection complete Assessment & Plan Assessment & Plan (1) Bilateral hip pain: Code(s): M25.551 - Pain in right hip; M25.552 - Pain in left hip Category: Medical (2) Arthritis of both glenohumeral joints: Code(s): M19.011 - Primary osteoarthritis, right shoulder; M19.012 - Primary osteoarthritis, left shoulder Category: Medical Plan Patient is status post left glenohumeral and left hip intra-articular steroid injections with 20 mg triamcinolone in each joint. Patient tolerated procedure well and was discharged home in stable condition with discharge instructions. All questions were answered. We will follow-up via telephone or in clinic to assess response to therapy. A follow-up appointment was made during today's visit. Orders: Orders AMB Joint Injection/Aspiration Today Hector Scherer MD M19.011 - Primary osteoarthritis, right shoulder, M19.012 - Primary osteoarthritis, left shoulder, M25.551 - Pain in right hip, M25.552 - Pain in left hip FL guidance in treatment room Today Julissa Ayers APRN, ELEMENTARY SCHOOL SOCIAL WORKER M25.551 - Pain in right hip, M25.552 - Pain in left hip FL guidance in treatment room Today Julissa Ayers APRN, ELEMENTARY SCHOOL SOCIAL WORKER M25.552 - Pain in left hip Coding Level of Care Code Procedure Only Diagnoses Bilateral hip pain M25.551; M25.552 Arthritis of both glenohumeral joints M19.011; M19.012 CPT Codes Coding - 47367 Large joint: 82796 - Large joint ([id number])
[2024-11-27 12:44] VITALS: BP 140/80; PULSE 84; RESP 16; O2SAT 94
== END 2024-11-27 12:43 | disposition home or self-care (01) ==
LOC: HO.PMCPRC 11:44
PROVIDERS: PCP Internal Medicine; Visit Provider Internal Medicine
DX: M25.552 Pain in left hip (principal); M19.012 Primary osteoarthritis, left shoulder; M19.011 Primary osteoarthritis, right shoulder; M25.551 Pain in right hip
CPT/HCPCS: 20610; 77002

== ENCOUNTER → 2024-12-17 11:39 | Outpatient (BNVA) | payer MEDICARE, OTHER, SELFPAY | PROVIDERS: PCP Internal Medicine | DX: Z79.891 Long term (current) use of opiate analgesic (principal) ==

== ENCOUNTER 2025-01-21 09:58 | Outpatient (AMB) | payer MEDICARE, OTHER, SELFPAY ==
--- OUTSIDE RECORDS SUMMARY | 2024-09-26 03:45 | XMS_ITS ---
Author Organization Omid Jimenes MD Address [address] [place] [phone] Care Team Providers Care Wallpaper Inspector Name Role Phone Omid Jimenes Primary Care Provider Results Component Value Reference Range Notes Liver Panel Reviewed date:09/26/2024 04:14:17 PM Interpretation: Performing Lab:[facility] [place], [address] [place] [phone] Notes/Report: Bilirubin Total 0.4 0.0-1.0 mg/dL Bilirubin Direct 0.2 0.0-0.5 mg/dL Aspartate Amino Transferase 36 5-31 U/L Alanine Aminotransferase 24 0-31 U/L Total Protein 7.1 6.5-8.0 g/dL Albumin Level 3.7 3.5-5.0 g/dL Alkaline Phosphatase 81 39-117 U/L Glucose Fasting Reviewed date:09/26/2024 04:14:33 PM Interpretation: Performing Lab:[address] [address] Notes/Report: Glucose Fasting 158 60-99 mg/dL A fasting glucose of 126 mg/dl or greater on more than one occasion is considered diagnostic of diabetes. Lipid Panel with Reflex Reviewed date:09/26/2024 04:15:11 PM Interpretation: Performing Lab:[address] [phone] Notes/Report: Triglycerides 169 <150 mg/dL Desirable Triglyceride: [...] A1c Reviewed date:09/26/2024 12:54:48 PM Interpretation: Performing Lab:[address] [phone] Notes/Report: Hemoglobin A1c % 5.9 <6.0 % [...] average glucose, using the formula of the R5A-Acevhnk Average Glucose study (ADAG), Diabetes Care, Vol.31,#8, Nov. 2007 REASON FOR VISIT fasting lipids Encounters Encounter Location Date Provider Diagnosis Omid Jimenes MD [address] [place] [address] [place] [phone] 09/26/2024 Omid Jimenes Type 2 diabetes kel itus without complication E11.9 and Pure hypercholesterolemia E78.00 Assessments Encounter Date Diagnosis (ICD Code) Assessment Notes Treatment Notes Treatment Clinical Notes Section Notes 09/26/2024 Type 2 diabetes kel itus without complication (ICD-10 - E11.9) 09/26/2024 Pure hypercholesterolemia (ICD-10 - E78.00) Plan Of Treatment Next Appt Details Provider Name:Omid borden, 01/27/2025 11:15:00 AM, [address] [place] [address], [address], [phone], Provider Name:Omid borden, 02/24/2025 07:15:00 AM, [address] [place] [address], [address], [phone], Provider Name:Omid borden, 03/03/2025 02:30:00 PM, [address] [place] [address], [address], [phone], Progress Notes * Vy WAITE LDOB:1945 (79 yo F)Acc No.[id number]:09/26/2024 Progress Note Patient: Vy VILLAFANA Provider: Naomie Jimenes MD :1945 A ge:79 Y S ex:Female Date:09/26/2024 Address:[address] [place], [place] [phone] Subjective: * Chief Complaints: * 1 . [...] 0 09/26/2024 Generated for Jeannie grady/Kevin/Willisitting on: 0 01/21/2025 12:10 PM EDT
--- OUTSIDE RECORDS SUMMARY | 2024-09-29 10:00 | XMS_ITS ---
Author Organization Omid Jimenes MD Address [address] [place] [phone] Care Team Providers Care Exchange Trouble Shooter Name Role Phone Omid Jimenes Primary Care [...] a day for 90 days Active Nystop 776243 UNIT/GM APPLY ONE APPLICAT ION EXTERNALLY TWO [...] kg/m2 09/29/2024 weight is down 6 [facility] 02-29-24 Encounters Encounter Location Date Provider Diagnosis Omid Jimenes MD [address] [place], [place] [phone] 09/29/2024 Omid Jimenes Type 2 diabetes kel [...] 3 Months, Reason: Provider Name:Omid Akhtar ier, 01/27/2025 11:15:00 AM, [address] [place] [address], [address], [phone], Provider Name:Omid jor, 02/24/2025 07:15:00 AM, [address] [place] [address], [address], [phone], Provider Name:Omid Akhtar ier, 03/03/2025 02:30:00 PM, [address] [place] [address], [address], [phone], Progress Notes * Vy WAITE LDOB:1945 (79 yo F)Acc No.[id number]:09/29/2024 Progress Notes Patient: Vy VILLAFANA Provider: Naomie Jimenes MD :1945 A ge:79 Y S ex:Female Date:09/29/2024 Address:[address] [place] [address] Subjective: * Chief Complaints: * 6 month [...] allow to dissolve Orally twicea day Nystop 056585 UNIT/GM Powder APPLY ONE APPLICATION EXTERNALLY TWO [...] to dissolve Orally twicea day Taking Nystop 206526 UNIT/GM Powder APPLY ONE APPLICATION EXTERNALLY TWO [...] Sign off status: Completed true * Provider: Naoime Jimenes MD Date: 0 09/29/2024 Generated for Jeannie grady/Kevin/Willisitting on: 0 01/21/2025 12:07 PM EDT History and Physical Notes * [...]
--- OUTSIDE RECORDS SUMMARY | 2024-11-25 06:36 | XMS_ITS ---
Author Organization Omid Jimenes MD Address [address] [place] [phone] Care Team Providers Care Traveling Secretary Name Role Phone Omid Jimenes Primary Care Provider REASON FOR VISIT refill Medications Medication SIG (Take, Route, Fr equency, Duration) Notes Start Date End Date Status Mounjaro 5 MG/0.5ML INJECT CONTENTS OF O NE PEN UNDER THE SKIN ONCE A WEEK for 28 Acti ve Encounters Encounter Location Date Provider Diagnosis Omid Jimenes MD [address] [place] [phone] 11/25/2024 Omid Jimenes Plan Of Treatment Medication Medication Name Sig Start Date Stop Date Notes Mounjaro 5 MG/0.5ML INJECT CONTENTS OF O NE PEN UNDER THE SKIN ONCE A WEEK for 28 Next Appt Details Provider Name:Omid Akhtar ier, 01/27/2025 11:15:00 AM, [address] [place] [address], Suite [facility], [place], [place], [phone], Provider Name:Omid Akhtar ier, 02/24/2025 07:15:00 AM, [address] [place] [address], [place] [address], [place], [place], [phone], Provider Name:Omid Akhtar ier, 03/03/2025 02:30:00 PM, [address] [place] [address], [place] [address], [place], [place], [phone], Progress Notes * Vy WAITE LDOB:1945 (79 yo F)Acc No.[id number]:11/25/2024 Patient: Fannie MANUELVy Valdes :1945 A ge:79 Y S ex:Female Address:[address] [place] [address], [place] [address] * Refills Refill Mounjaro Solution Auto-injector, 5 MG/0.5ML, 2 Milliliter, INJECT CONTENTS OF ONE PEN UNDER THE SKIN ONCE A WEEK, 28, Refills=3 * true * Date: Generated for Jeannie grady/Kevin/Willisitting on: 0 01/21/2025 12:10 PM EDT
--- OUTSIDE RECORDS SUMMARY | 2024-12-15 11:31 | XMS_ITS ---
Author Organization Omid Jimenes MD Address [address] [place] [phone] Care Team Providers Care Sales And Marketing Agent Name Role Phone Omid Jimenes Primary Care Provider [phone] REASON FOR VISIT ALL MEDS NEED TO BE REFILLED Encounters Encounter Location Date Provider Diagnosis Omid Jimenes MD [address] [place], [place] [phone] 12/15/2024 Omid Jimeens Plan Of Treatment Next Appt Details Provider Name:Omid Akhtar ier, 01/27/2025 11:15:00 AM, [address] [facility], [address], [place], [place], [phone], Provider Name:Omid Akhtar michi, 02/24/2025 07:15:00 AM, [address] [facility], [address], [place], [place], [phone], Provider Name:Omid Akhtar michi, 03/03/2025 02:30:00 PM, [address] [place] [address], [address], [place], [phone], Progress Notes * Vy WAITE LDOB:1945 (79 yo F)Acc No.[id number]:12/15/2024 Patient: Fannie MANUELVy Valdes :1945 A ge:79 Y S ex:Female Address:[address] [place] [address] * true * Date: Generated for Jeannie grady/Kevin/eTmagdalenasmitting on: 0 01/21/2025 12:07 PM EDT
--- OUTSIDE RECORDS SUMMARY | 2024-12-25 07:01 | XMS_ITS ---
Author Organization Omid Jimenes MD Address [address] [place] [phone] Care Team Providers Care Thread Grinder Tool Name Role Phone Omid Jimenes Primary Care Provider REASON FOR VISIT needs all scripts Medications [...] day for 7 days 11/30/2023 Active Nystop 901186 UNIT/GM APPLY ONE APPLICAT ION EXTERNALLY TWO [...] Location Date Provider Diagnosis Omid Jimenes MD [address] [place] [address] [address] [place], [place] [phone] 12/25/2024 Omid Jimenes Type 2 diabetes mellitus [...] twicea day for 7 days 11/30/2023 Nystop 958817 UNIT/GM APPLY ONE APPLICAT ION EXTERNALLY TWO TIMES A DAY Externally Twice a day for 90 days Meclizine HCl 25 MG TAKE ONE TABLET BY M OUTH TWICE A DAY NEEDED Orally every 12 hrs for 28 days Atorvastatin Calcium 20 MG TAKE ONE TABL ET BY MOUTH EVERY DAY for 90 Next Appt Details Provider Name:Omid borden, 01/27/2025 11:15:00 AM, [address] [place] [address], [address], [phone], Provider Name:Omid borden, 02/24/2025 07:15:00 AM, [address] [place] [address], [address], [phone], Provider Name:Omid borden, 03/03/2025 02:30:00 PM, [address] [place] [address], [address], [phone], Progress Notes * Vy WAITE LDOB:1945 (79 yo F)Acc No.[id number]:12/25/2024 Patient: Vy VILLAFANA Haley :1945 A ge:79 Y S ex:Female Address:[address] [place] [address] * Refills Refill Mounjaro Solution Auto-injector, 5 [...] day, 7 days, Refills=3 Refill Nystop Powder, 492862 UNIT/GM, Externally, 1, APPLY ONE APPLICATION EXTERNALLY [...] * Date: Generated for Jeannie grady/Kevin/Cony on: 0 01/21/2025 12:06 PM EDT
--- NOTE | 2025-01-21 09:59 | A.OFFVIS_ITS ---
Vital Signs 01/21/25 10:00 Height 5 ft 6.25 in Weight 245 lb BMI 39.2 BP 130/66 Blood Pressure Location Lt brachial Position Sitting Respiration 18 Pulse 97 Pulse Source Pulse Oximeter Pulse Oximetry (%) 92 Oxygen Delivery Method Room Air Intake Visit Reasons: PILL COUNT Intake Note: Pt states she last took vicodin 01/21/25 @ 7:30am Crime Laboratory Analyst Required: No Accompanied by: Child Allergies cephalexin (From Keflex) Allergy (Severe, Verified 01/21/25 10:03) Itching pravastatin (Pravachol) Allergy (Severe, Verified 01/21/25 10:03) cramps bacitracin Adverse Reaction (Severe, Verified 01/21/25 10:03) eye swelling dexamethasone (TobraDex) Adverse Reaction (Severe, Verified 01/21/25 10:03) redness swelling tobramycin (TobraDex) Adverse Reaction (Severe, Verified 01/21/25 10:03) redness swelling Sulfa (Sulfonamide Antibiotics) Adverse Reaction (Intermediate, Verified 01/21/25 10:03) GI upset atorvastatin (From Lipitor) Adverse Reaction (Verified 01/21/25 10:03) Unknown Beef Containing Products Adverse Reaction (Verified 01/21/25 10:03) Unknown erythromycin base Adverse Reaction (Verified 01/21/25 10:03) Unknown Penicillins (PCN) Adverse Reaction (Verified 01/21/25 10:03) Unknown sulfacetamide (From Sulfacet-R) Adverse Reaction (Verified 01/21/25 10:03) Unknown sulfur (From Sulfacet-R) Adverse Reaction (Verified 01/21/25 10:03) Unknown topiramate (From Topamax) Adverse Reaction (Verified 01/21/25 10:03) Unknown Medication List - Last Reconciled 01/21/25 by Naz Simpson LPN albuterol sulfate 90 mcg/actuation 2 puffs PO Q4H albuterol sulfate 2.5 mg (3 mL) inhalation Q4H PRN allopurinol 100 mg PO DAILY aspirin 81 mg PO DAILY atorvastatin 20 mg PO DAILY azelastine-fluticasone 137-50 mcg/spray 1 spray intranasal BID 30 days bepotastine besilate 1.5% (Bepreve) 1 drp ophthalmic (eye) DAILY PRN calcitriol mcg PO chlorhexidine gluconate 0.12% 15 mL buccal DAILY 30 days cholecalciferol (vitamin D3) (Vitamin D3) 25 mcg PO DAILY doxycycline hyclate 100 mg PO BID 10 days duloxetine 60 mg PO DAILY epinephrine 0.3 mL IM ONCE PRN ferrous sulfate (FeroSul) 325 mg PO DAILY fluticasone propionate 220 mcg/actuation 2 puffs inhalation BID furosemide (Lasix) 80 mg PO BID 30 days gabapentin 100 mg PO .AM gabapentin 400 mg PO BEDTIME hydrocodone-acetaminophen 7.5-325 mg 1 tab PO BID PRN insulin glargine units subcut levothyroxine 75 mcg PO DAILY meclizine 25 mg PO BID PRN mepolizumab 100 mg subcut Q4W nystatin 1 appl topical BID omeprazole 20 mg PO DAILY potassium chloride ER 10 mEq PO BID Saccharomyces boulardii (Florastor) 250 mg PO BID sitagliptin phosphate 100 mg PO DAILY tiotropium bromide 1.25 mcg/actuation inhalation tirzepatide (Mounjaro) 2.5 mg subcut QWEEK trazodone 50 mg PO BEDTIME PRN valsartan 40 mg PO DAILY HPI HPI PILL COUNT: Details: History of Present Illness The patient is an 79-year-old female presenting with chronic pain management concerns. The patient reports chronic pain in the left shoulder, which is exacerbated by any movement and persists regardless of activity. Previous injections provided minimal relief, lasting only a week or two. The patient prefers injections over other treatments despite limited efficacy. The patient also experiences chronic neck pain, having undergone surgery to address two discs. The surgery was performed to prevent potential quadriplegia in the event of an accident. Despite the surgery, the patient continues to experience significant pain. The patient has osteoporosis, which complicates treatment options. She is hesitant to take medications like Fosamax due to concerns about side effects experienced by acquaintances. 52 pills were expected and 50 were presented. Pain Description - Pain is primarily located in the left shoulder and neck. - Pain is exacerbated by movement and persists regardless of activity. - Previous injections provided minimal relief, lasting only a week or two. - The patient prefers injections over other treatments despite limited efficacy. Physical Exam Limited shoulder range of motion on the left side Results Pain Management - Affect: Pain impacts daily activities and sleep, requiring trazodone for sleep aid. - Analgesia: Current medication includes Vicodin, with a proposed increase to 10 mg for better pain control. - Adverse Effects: Concerns about osteoporosis and potential side effects of medications like Fosamax. - Activities of Daily Living: Pain interferes with daily activities, necessitating medication adjustments. - Aberrant Drug Related Behaviors: No evidence of misuse, but patient has taken extra doses due to severe pain. [facility] Medical History (Updated 11/27/24 @ 12:07 by Julissa Ayers APRN, SENIOR ORACLE SOA DEVELOPER) COPD (chronic obstructive pulmonary disease) Morbid obesity Acute systolic congestive heart failure Osteoporosis Dyspnea Chronic pain syndrome Gouty arthritis Arthritis of both glenohumeral joints Neurogenic claudication due to lumbar spinal stenosis Asthma CLEVE on CPAP Chronic restrictive lung disease Tracheitis Dyspnea Surgical History Status post cervical spinal fusion History of eyelid surgery History of knee replacement History of cholecystectomy Family History Father HTN (hypertension) Stroke Diabetes Mother Atrial fibrillation HTN (hypertension) Social History Alcohol intake: never Patient Tobacco Use Status: Former Tobacco user Tobacco use type: Cigarette Years Smoked: 20 years Second Hand Smoke Exposure: No Physical Exam Vital Signs: Last Vital Signs Pulse 97 01/21/25 10:00 Resp 18 01/21/25 10:00 BP 130/66 01/21/25 10:00 Pulse Ox 92 01/21/25 10:00 Oxygen Delivery Method Room Air 01/21/25 10:00 BMI result Body Mass Index 39.2 Assessment & Plan Assessment & Plan (1) Osteoporosis: Code(s): M81.0 - Age-related osteoporosis without current pathological fracture Category: Medical (2) Arthritis of both glenohumeral joints: Code(s): M19.011 - Primary osteoarthritis, right shoulder; M19.012 - Primary os teoarthritis, left shoulder Category: Medical (3) Intractable back pain: Code(s): M54.9 - Dorsalgia, unspecified Category: Medical (4) Chronic pain syndrome: Comment: Requiring narcotic use Code(s): G89.4 - Chronic pain syndrome Category: Medical Plan Plan Patient was informed and verbally consented to the use of an ambient scribe for clinic note documentation during this visit. 1. Chronic Pain In The Left Shoulder - Plan full dose triamcinolone injection under ultrasound guidance to the left glenohumeral joint. 2. Chronic Neck Pain Post-Surgery - Continue current pain management strategies, considering surgical history. Increase Vicodin to 3 pills/day for remainder of current script and then prescribe 10mg BID. 3. Osteoporosis - Avoidance of Fosamax due to concerns about side effects. - Consideration of bone health in planning pain management strategies. Discussion Notes During the visit, we discussed the management of chronic pain, particularly in the left shoulder and neck. The patient expressed a preference for injections despite limited relief from previous treatments. We agreed to administer a full dose injection in three weeks and increase the Vicodin dosage to 10 mg. We also addressed concerns about osteoporosis and the potential side effects of medications like Fosamax. The patient was advised to consider bone health in future pain management strategies. Patient Instructions - Continue taking Vicodin as prescribed, with an increase to 10 mg in the next refill. - Return for a full dose injection in three weeks. - Monitor for any side effects from medications and report them promptly. - Consider bone health in daily activities and avoid high-risk activities that may lead to fractures. Medications: New hydrocodone-acetaminophen 10-325 mg Partial Fill upon patient request. Chris refill per MD. 1 tab PO BID PRN 60 tabs 0RF pain Discontinued hydrocodone-acetaminophen 7.5-325 mg Partial Fill upon patient request. Discontinued Reason: Duplicate 1 tab PO BID PRN 60 tabs 0RF pain Coding Level of Care Code Est Pt Level 4 (64399) Diagnoses Osteoporosis M81.0 Arthritis of both glenohumeral joints M19.011; M19.012 Intractable back pain M54.9 Chronic pain syndrome G89.4
[2025-01-21 10:00] VITALS: BP 130/66; PULSE 97; RESP 18; O2SAT 92; BMI 39.2
--- OUTSIDE RECORDS SUMMARY | 2025-01-21 12:07 | XMS_ITS | Encounter Summary ---
Author Organization [facility] Address [address] [place] [address] Phone Care Team Providers Care Advertising Display Rotator Name Role Phone Omid Jimenes MD Primary Care Provider Omid Jimenes MD Unavailable [phone] Emmanuel Lyman MD Unavailable [phone] Lizandro Guallpa MD Unavailable Cameron Vital MD, MSc Unavailable [phone] Encounter Details Date Type Department Care Team (Late st Contact Info) Description 03/16/2021 Procedure Pass [facility] PERIOPERATIVE DEPT [address] [place] [address] Social History Tobacco Use Types Packs/Day Years Used Date Smoking Tobacco: Former Cigarettes 1 964 - 1985 Smokeless Tobacco: Never Alcohol Use Standard Drinks/Week [...] on file documented as of this encounter Functional Status * Calculated C-SSRS Risk Score (Lifetime/Recent) Answer Date of Assessment Author No Risk Indicated 03/16/2021 5:00 PM Son Banuelos RN * Worth Suicide Severity Rating Scale (Screener/Recent Self-Report) Question Answer Date of Assessment Author 1. Wish to be (Past 1 Month) No 03/16/2021 5:00 PM Son Coelho Ma, RN 2. Non-Specific Active Suici brock Thoughts (Past 1 Month) No 03/16/2021 5:00 PM Eleonora Coelho RN 6. Suicidal Behavior (Lifetime) No 5:00 PM Son Coelho RN documented as of this encounter Plan of Treatment Upcoming Encounters Date Type Department Care Team (Latest Contact Info) Description 09/25/2024 Procedure Pass [facility] Cardiac US [address] [place] [address] 02/18/2025 1:00 PM EDT Appointment [facility] Card[facility] [address] [place] [address] Emmanuel Lyman MD [address] [facility] [id number] [place] [address] [email or web address] 02/18/2025 2:30 PM EDT Ancillary Procedure [facility] [address]th [address], [address] [place] [address] Leni Gramajo, ELIS [address] [facility] [address] [place] [address] [email or web address] 03/10/2025 10:40 AM EST Office Visit [facility] Rheumatology [address] [place] [address] Geraldine Jay MD, MPH [address] [facility], [address] [place] [address] [email or web address] documented as of this encounter Visit Diagnoses Not on filedocumented in this encounter Additional Health Concerns Infection Onset Date Last Indicated Resolved Time CoV-Risk 12/07/2023 12/07/2023 12/18/2023 1:22 AM EDT documented as of this encounter Care Teams Advertising Display Rotator Relationship Specialty Start Date End Date Omid Jimenes MD [address] [place] [address] Dr COBB [address] [place] [id number] PCP - General 10/28/13 Omid Jimenes MD [address] [place] [address] [place] [address] Historical LMR Provider 02/15/17 Emmanuel Lyman MD [address] [place] [address] [id number] [place] [address] [email or web address] Fire Extinguisher Technician Cardiology 11/22/20 Lizandro Guallpa MD [address] [place] [address] [id number] [place] [address] [email or web address] 03/03/21 Cameron Vital MD, MSc [address] [place] [address] [id number] [place] [address] [email or web address] Fire Extinguisher Technician Cardiology 03/03/21 documented as of this encounter Additional Source Comments The information contained in this document represents components of the legal health record. It is not the complete legal health record.[facility]
--- OUTSIDE RECORDS SUMMARY | 2025-01-21 12:07 | XMS_ITS | Encounter Summary ---
Author Organization [facility] Address [address] [place] [address] Phone Care Team Providers Care Jail Guard Name Role Phone Omid Jimenes MD Primary Care Provider Ramsey Ortez MD Unavailable [email or web address] Omid Jimenes MD Unavailable [phone] Emmanuel Lyman MD Unavailable [phone] Lizandro Guallpa MD Unavailable Cameron Vital MD, MSc Unavailable [phone] Encounter Details Date Type Department Care Team (Late st Contact Info) Description 06/11/2019 Ancillary Orders [facility], X-Ray - [address] [place] [address] Rpuert Canchola MD [address] [facility] [address] [place] [address] Right hip pain Social History Tobacco Use Types Packs/Day Years Used Date Smoking Tobacco: Former Cigarettes Smokeless Tobacco: Never Alcohol Use Standard Drinks/Week [...] (Latest Contact Info) Description 09/25/2024 Procedure Pass [facility] [address] [place] [address] 02/18/2025 1:00 PM EDT Appointment [facility] [address] [place] [address] Emmanuel Lyman MD [facility] [id number] [place] [address] [email or web address] 02/18/2025 2:30 PM EDT Ancillary Procedure [facility] [address] [facility], 5th Floor, [address] [place] [address] Leni Gramajo, ELIS [address] [facility] [address] [place] [address] [email or web address] 03/10/2025 10:40 AM EST Office Visit [facility] Rheumatology [address] [place] [address] Geraldine Jay MD, MPH [address] [facility], [address] [place] [address] [email or web address] documented as of this encounter Results * XR HIP 2 VW RIGHT PLUS PELVIS (06/11/2019 8:57 AM EST) Anatomical Region Laterality Modality Hip, Pelvis Radiographic Karena ging 06/11/2019 9:05 AM EST Impressions 06/11/2019 9:07 AM EST Stable negligible osteoarthritis. No new bony pathology. POS [id number] Narrative 06/11/2019 9:07 AM EST AP pelvis and coned right hip, 4 views Compare to pelvis 02/19/2019 Very minimal marginal spurring along the superior right acetabulum is unchanged from January. No significant arthritic changes in the left hip, SI joints or symphysis pubis. Fairly extensive degenerative disc disease in the lower lumbosacral spine No signs of bony trauma, tumor, infection or AVN. No significant soft tissue calcifications. Procedure Note Rui Holloway MD - 06/11/2019 AP pelvis and coned right hip, 4 views Compare to pelvis 02/19/2019 Very minimal marginal spurring along the superior right acetabulum isunchanged from January. No significant arthritic changes in the left hip,SI joints or symphysis pubis. Fairly extensive degenerative disc disease in the lower lumbosacralspine No signs of bony trauma, tumor, infection or AVN. No significant soft tissue calcifications. IMPRESSION: Stable negligible osteoarthritis. No new bony pathology. POS [id number] Rupert Canchola MD IMG XR PELVIS Final Result documented in this encounter Visit Diagnoses Diagnosis Right hip pain Pain in joint, pelvic region and thigh Right hip pain Pain in joint, pelvic region and thigh documented in this encounter Additional Health Concerns Infection Onset Date Last Indicated Resolved Time CoV-Risk 12/07/2023 12/07/2023 12/18/2023 1:22 AM EDT documented as of this encounter Care Teams Jail Guard Relationship Specialty Start Date End Date Omid Jimenes MD [address] [place] [address] [place] [address] PCP - General 10/28/13 Ramsey Ortez MD [email or web address] Historical LMR Provider 02/15/17 03/02/21 Omid Jimenes MD [address] [place] [address] [place] [address] Historical LMR Provider 02/15/17 Emmanuel Lyman MD [address] [place] [address] [id number] [place] [address] [email or web address] [email or web address] Media Relations Manager Cardiology 11/22/20 Lizandro Guallpa MD [address] [place] [address] [id number] [place] [address] [email or web address] Rheumatology 03/03/21 Cameron Vital MD, MSc [address] [place] [address] [id number] [place] [address] [email or web address] Media Relations Manager Cardiology 03/03/21 documented as of this encounter Additional Source Comments The information contained in this document represents components of the legal health record. It is not the complete legal health record.[facility]
--- OUTSIDE RECORDS SUMMARY | 2025-01-21 12:07 | XMS_ITS | Patient Health Record ---
Author Organization [facility] Address [address] [facility] [place] [address] Care Team Providers Care Animal Doctor Name Role Phone Omid Jimenes MD Primary Care Provider Sushila Campos Unavailable [phone] Brittany Montiel Unavailable [phone] Allergies Allergen (clinical drug ingredient) Drug/Non Drug [...] Start Date End Date Status Ditropan Not-Taking hydroCHLOROthiazide 25 MG 1 tablet Orall y Once a day; Duration: 30 day(s) Not-Taking Metformin & Diet Manage Prod 500 MG as directed Orally Not-Takin g Vicodin PRN Not-Taking Ibuprofen 800mg 1 tablet as needed Orally every 6 hrs PRN Active Dulera Not-Taking HYDROcodone-Acetaminophen 7.5-325 MG 1 tablet as needed Orally every 6 hrs Active K-Tab 10 MEQ 1 tablet with food Orally Twice a day; Duration: 30 day(s) Active Extra-Depth Diabetic Shoes with 3 Pair Custom heat-molded multi-density innersoles . for 1 year . Dx:Niddm with neuropathy, foot deformity and pre-ulcerative skin lesions; Duration: . 07/10/2013 Not-Taking Januvia Active Flonase 1 spray in each nostril Nasally Once a day; Duration: 30 day(s) HOLD Not-Taking Extra-Depth Diabetic Shoes with 3 Pair Custom heat-molded multi-density innersoles . for 1 year . Dx:; Duration: . 10/05/2014 Not-Taking Extra-Depth Diabetic Shoes with 3 Pair Custom heat-molded multi-density innersoles . 1pair shoes/3sets inserts . .; Duration: 1 year Not-Taking Extra Depth Diabetic Shoes with 3 Pair Custom heat-molded multi-density innersoles for 1 year Dx: 10/06/2015 Not-Taking Invokana 300 MG 1 tablet Orally Once a day Not-Taking Ferrous Sulfate 325 (65 Fe) MG 1 tablet Orally Once a day; Duration: 30 day(s) Active EPINEPHrine PRN Active Fluticasone Propionate Active Florastor 250 MG 1 capsule Orally Twice a day; Duration: 30 day(s) Active Gabapentin 100 MG 1 capsule Orally morning 400 MG at night Active Furosemide Active Breo Ellipta Not-Jaylen ing Ergocalciferol 00050 UNIT 1 capsule Oral ly; Duration: 30 day(s) Not-Taking PriLOSEC 20 MG 1 capsule Orally Once a day; Duration: 30 day(s) Active Prochlorperazine PRN Act manolo Potassium Chloride ER Active Levothyroxine Sodium 75 MCG 1 tablet on an empty stomach in the morning Orally Once a day Active Nucala Active Lantus 37 units injections Act manolo Meclizine HCl 25 MG 1 tablet as needed Orally Once a day; Duration: 30 day(s) PRN Active Magnesium Oxide 400 MG 1 tablet as neede d Orally Once a day; Duration: 30 day(s) Active Omeprazole Active oxyCODONE HCl PRN Active predniSONE 10 MG Oral; Duration: 12 PRN Active Atorvastatin Calcium Active Synthroid Active tylenol Active Valsartan 40 MG 1 tablet Orally Twice a day Active Spiriva Respimat Act manolo Vitamin C Active Vancomycin HCl 125 MG USE 1 SUPPOSITORY RECTALLY TWICE A DAY Oral; Duration: 14 PRN Active Extra Depth Orthopedic Shoes (1 Pair) with Customized Heat Molded Multidensity Innersoles (3 Pair) as directed Dx: NIDDM/Polyneuropat hy (E11.42), Hammertoe Foot Deformity (M20.41,M20.42), Preulcerative Skin Lesion(s) (L85.1 Active ZyrTEC Allergy Activ e Calcitriol 0.25 MCG Oral; Duration: 30 Active Cephalexin PRN Active Colchicine PRN Active Dymista Active Trulicity start in 1 week stop januvia Not-Taking Diovan 160mg 1 tablet Orally Once a day; Duration: 30 day(s) Active Extra Depth Orthopedic Shoes (1 Pair) with Customized Heat Molded Multidensity Innersoles (3 Pair) as directed Dx: NIDDM/Polyneuropat hy (E11.42), Hammertoe Foot Deformity (M20.41,M20.42), Preulcerative Skin Lesion(s) (L85.1 Active Declomycin Not-Takin g DULoxetine HCl 60 MG as directed Orally Once a day Active Farxiga 10 MG 1 tablet Orally morning Not-Taking Extra Depth Orthopedic Shoes (1 Pair) with Customized Heat Molded Multidensity Innersoles (3 Pair) as directed Dx: IDDM/Polyneuropath y (E10.42), Hammertoe Foot Deformity (M20.41,M20.42), Preulcerative Skin Lesion(s) (L85.1) 04/04/2017 Not-Taking Extra Depth Diabetic Shoes with 3 Pair Custom heat-molded multi-density innersoles for 1 year Dx: 10/03/2017 Not-Taking Albuterol as directed PRN Active Lorena Active Amoxicillin 250 MG USE 1 SUPPOSITORY RECTALLY TWICE A DAY Oral; Duration: 7 PRN Active Bepreve 1.5 % 1 drop into affected eye Ophthalmic Twice a day Active Allopurinol 100 MG as directed Orally Active Immunizations Vaccine Route Administration Date Status Comme nts Influenza Unknown 01/13/2015 Administered Influenza Unknown 03/20/2016 Administered Influenza Unknown 03/05/2017 Administered Influenza Unknown 01/30/2022 Administered Influenza Unknown 12/29/2022 Administered Influenza Unknown 01/29/2024 Administered Pneumococcal Unknown 02/17/2013 Administered COVID-19 Moderna [...] Polyneuropathy due to type 2 diabetes mellitus (062665869) Type 2 diabetes mellitus with diabetic polyneuropathy (E11.42) Active confirmed Problem Acquired hammer toe of right foot (0628328581655124 ) Other hammer toe(s) (acquired), right foot (M20.41) Active confirmed Problem Acquired hammer toe of left foot (7408764076135109 ) Other hammer toe(s) (acquired), left foot (M20.42) Active confirmed Vital Signs Blood pressure diastolic 65 mm Hg 12/03/2024 Height 5 ft 3 in in 12/03/2024 Blood pressure systolic 128 mm Hg 12/03/2024 Weight 257 lbs 12/03/2024 BMI 45.52 kg/m2 12/03/2024 Procedures Procedure Date Ordered Date Performed Result Body Sit e 58275-HOYXBWH NAIL, 6 OR MORE 03/06/2024 N/A 71515-PXZV SKIN LESIONS, 2 TO 4 03/06/2024 N/A 85281-KVCIRRT NAIL, 6 OR MORE 05/12/2024 N/A 01914-TGSE SKIN LESIONS, 2 TO 4 05/12/2024 N/A Encounters Encounter Location Date Provider Diagnosis [address] [address] 03/06/2024 Sushila Heredia Type 1 diabetes mellitus with diabetic polyneuropathy E10.42 and Tinea unguium B35.[address] [address] 05/12/2024 Sushila Heredia Type 2 diabetes mellitus with diabetic polyneuropathy E11.42 and Tinea unguium B35.[address] [address] 07/18/2024 Brittany Dinesh Type 2 diabetes mellitus with diabetic polyneuropathy E11.42 ; Other hammer toe(s) (acquired), right foot M20.41 ; Tinea unguium B35.1 ; Other hammer toe(s) (acquired), left foot M20.42 and Pre-ulcerative calluses L84 [address] [address] 09/24/2024 Sushila Heredia Type 2 diabetes mellitus with diabetic polyneuropathy E11.42 and Tinea unguium B35.[address] [address] 12/03/2024 Sushila Heredia Type 2 diabetes mellitus with diabetic polyneuropathy E11.42 and Tinea unguium B35.[address] [address] 12/03/2024 Sushila Heredia Assessments Encounter Date Diagnosis (ICD Code) Assessment [...] INSTRUCTIONS. pdf (DIABETIC FOOT CARE INSTRUCTIONS. pdf) 09/24/2024 Type 2 diabetes mellitus with diabetic polyneuropathy (ICD-10 - E11.42) 09/24/2024 Tinea unguium (ICD-10 - B35.1) 12/03/2024 Type 2 diabetes mellitus with diabetic polyneuropathy (ICD-10 - E11.42) 12/03/2024 Tinea unguium (ICD-10 - B35.1) 07/18/2024 Type 2 diabetes mellitus with diabetic polyneuropathy (ICD-10 - E11.42) 07/18/2024 Tinea unguium (ICD-10 - B35.1) 07/18/2024 Other hammer toe(s) (acquired), left foot (ICD-10 - M20.42) 07/18/2024 Pre-ulcerative calluses (ICD-10 - L84) 09/24/2024 Other Patient Educated with: DIABETIC FOOT CARE INSTRUCTIONS. pdf (DIABETIC FOOT CARE INSTRUCTIONS. pdf) 12/03/2024 Other Patient Educated with: DIABETIC FOOT CARE INSTRUCTIONS. pdf (DIABETIC FOOT CARE INSTRUCTIONS. pdf) Plan Of Treatment Pending Test Test Name Order Date X ray : Foot, left 2V 10/03/2017 X ray : Foot, right 2V 10/03/2017 X ray : Foot, right 3V 04/10/2022 85866-EMFFWAQ NAIL, 6 OR MORE 03/06/2024 02797-PBAFYHA NAIL, 6 OR MORE 05/12/2024 58270-GHJDQIP NAIL, 6 OR MORE 10/04/2016 90184-RTGDZXR NAIL, 6 OR MORE 04/04/2017 55982-USZNWWO NAIL, 6 OR MORE 10/03/2017 93120-KURGLSB NAIL, 6 OR MORE 04/08/2018 89317-VNOCSSS NAIL, 6 OR MORE 04/03/2013 94422-QGQXACE NAIL, 6 OR MORE 07/10/2013 83793-ESIAOGR NAIL, 6 OR MORE 10/16/2013 59734-GMGFSPU NAIL, 6 OR MORE 01/21/2014 04947-ZCIFLWR NAIL, 6 OR MORE 06/04/2014 05208-PYDTZDE NAIL, 6 OR MORE 10/05/2014 64364-RAVNUBZ NAIL, 6 OR MORE 01/06/2015 80062-HOJVNSD NAIL, 6 OR MORE 04/07/2015 31992-XQTCMKC NAIL, 6 OR MORE 10/06/2015 31507-OWDHAFO NAIL, 6 OR MORE 04/05/2016 12939-QTKRRUO NAIL, 1-5 10/30/2012 78809-BGPOKWD NAIL, 1-5 01/16/2013 47899-SHZHDUA NAIL, 1-5 09/05/2012 65276-UOLSFQB NAIL, 1-5 07/18/2012 68923-EMEOGDZ NAIL, 1-5 07/31/2012 80493-Wqttysuc Plate 07/31/2012 23131-Pgarbqza Plate 09/05/2012 81789-Dlbaltuf Plate 07/18/2012 78967-Rsprhrsz Plate 10/03/2017 47036-Rbagceen Plate 10/16/2013 47974-Jnzuwmii Plate 04/04/2017 78281-UNOY SKIN LESIONS, OVER 4 07/19/19 13 81771-WXVV SKIN LESIONS, OVER 4 09/06/19 13 90515-EFJF SKIN LESIONS, OVER 4 08/01/19 13 71134-RBTD SKIN LESIONS, OVER 4 07/11/19 14 97768-ODSU SKIN LESIONS, OVER 4 01/17/20 13 62596-ZODN SKIN LESIONS, OVER 4 04/03/20 13 68411-YHDU SKIN LESIONS, OVER 4 04/05/20 16 30398-LLAV SKIN LESIONS, OVER 4 10/05/19 17 55816-QHUY SKIN LESIONS, OVER 4 10/06/19 16 84036-YVVM SKIN LESIONS, OVER 4 04/07/20 15 03108-KRXV SKIN LESIONS, OVER 4 01/07/20 15 75748-BLPI SKIN LESIONS, OVER 4 10/06/19 15 61053-PSSX SKIN LESIONS, OVER 4 06/04/19 15 18784-OIQW SKIN LESIONS, OVER 4 01/22/20 14 05057-PTZO SKIN LESIONS, OVER 4 10/17/19 14 57978-HBOV SKIN LESIONS, 2 TO 4 04/04/20 17 81908-AEAR SKIN LESIONS, 2 TO 4 10/04/19 18 74765-HNAY SKIN LESIONS, 2 TO 4 10/08/19 19 68052-GNFG SKIN LESIONS, 2 TO 4 01/28/20 19 61711-ZYUY SKIN LESIONS, 2 TO 4 04/09/20 19 30665-IAXQ SKIN LESIONS, 2 TO 4 06/12/19 47089-BYGX SKIN LESIONS, 2 TO 4 10/13/19 22707-QWKQ SKIN LESIONS, 2 TO 4 12/15/19 30387-XOAA SKIN LESIONS, 2 TO 4 02/16/20 44917-ZFOG SKIN LESIONS, 2 TO 4 05/13/19 47006-GZLP SKIN LESIONS, 2 TO 4 08/12/19 40466-UAHD SKIN LESIONS, 2 TO 4 10/19/19 88307-KYNC SKIN LESIONS, 2 TO 4 12/23/19 80132-BURW SKIN LESIONS, 2 TO 4 02/24/20 49263-WGLD SKIN LESIONS, 2 TO 4 05/09/19 90610-JIEE SKIN LESIONS, 2 TO 4 07/15/19 61746-RBJN SKIN LESIONS, 2 TO 4 05/12/19 12602-UYNJ SKIN LESIONS, 2 TO 4 03/06/20 53604-HTHK SKIN LESIONS, 2 TO 4 04/08/20 18 87817-SEBG NAIL(S) 01/16/2013 72534-JCOC NAIL(S) 10/30/2012 Next Appt Details Provider Name:Sushila brasher, 02/05/2025 02:30:00 PM, [address] [place] [address], [phone], Provider Name:Sushila brasher, 04/09/2025 02:30:00 PM, [address] [place] [address], [id number], Insurance Providers Payer Name Payer Address Payer Phone Subscriber Number Group Number Insured Name Patient Relationship to Insured Coverage Start Date Coverage End Date Medicare National Govt Sv[employer] Inc [address] [facility] [place] [address] [id number] Vy Fishman Self - patient is the insured [employer] ([employer]) [address] [place] [address] [id number] Vy Fishman Self - patient is the insured for Life [address] [place] [phone] [id number] Mary EllenVy herbert Self - patient is the insured Medical (General) History Medical History History ICD Code anemia Arthritis asthma back, hip, knee pain hyperlipidemia cataracts type II diabetes gall bladder problems headaches/migraines hernia hypertension lung disease chicken pox measles mumps reflux sciatica sinus conditions thyroid disorder joint implants/screws transfusions Surgical History Surgery Date(Month/Year) lap band cataract surgery blepheroplasty cholecystectomy oral surgery bone graft 2013 oral implants and tissue graft 2013 Cervical disc replacement. 05/07/2017 Heart Catheterization 01/12/21 aortic valve 03/16/21 Hospitalization History Reason Date(Month/Year) [facility]- Constipation, swelling , 12/21 [facility]-Systemic [facility] 9 day stay- Discharged to rehab-12 days-[facility] 10/2018-01/10/2019 [facility], Cervical disc replacement, [address] [facility]. 05/07/2017
--- OUTSIDE RECORDS SUMMARY | 2025-01-21 12:07 | XMS_ITS | Encounter Summary ---
Author Organization [facility] Address [address] [facility] [address] [place] [address] Phone Care Team Providers Care Supervisor Quilting Name Role Phone Omid Jimenes MD Primary Care Provider Omid Jimenes MD Unavailable [phone] Emmanuel Lyman MD Unavailable [phone] Lizandro Guallpa MD Unavailable Cameron Vital MD, MSc Unavailable [phone] Encounter Details Date Type Department Care Team (Late st Contact Info) Description 10/26/2022 Procedure Pass [facility], [address] [place] [address] Social History Tobacco Use Types Packs/Day Years Used Date Smoking Tobacco: Former Cigarettes 1 964 - 1985 Smokeless Tobacco: Never Alcohol Use Standard Drinks/Week Comments Not Currently 0 (1 standard drink = 0.6 oz pur e alcohol) Education Answer Date Recorded Are you interested in more education? Not on rivas e 08/26/2022 Are you concerned about learning? Not on file 08/26/2022 No 08/26/2022 No 08/26/2022 Digital Access Answer Date Recorded No 09/24/2022 No 09/24/2022 Reliable internet access at home? Not on file 09/24/2022 Device with a working camera? Not on file Comments Unknown Sex and Gender Information Value [...] (Latest Contact Info) Description 09/25/2024 Procedure Pass [facility] [address] [address] 02/18/2025 1:00 PM EDT Appointment [facility] US [address] [place] [address] Emmanuel Lyman MD [address] [facility] [id number] [place] [address] [email or web address] 02/18/2025 2:30 PM EDT Ancillary Procedure [facility] [address] [facility], 5th Floor, [address] [place] [address] Leni Gramajo, ELIS [address] [facility] [address] [place] [address] [email or web address] 03/10/2025 10:40 AM EST Office Visit [facility] Rheumatology [address] [place] [address] Geraldine Jay MD, MPH [address] [facility], [address] [place] [address] documented as of this encounter Visit Diagnoses Not on filedocumented in this encounter Additional Health Concerns Infection Onset Date Last Indicated Resolved Time CoV-Risk 12/07/2023 12/07/2023 12/18/2023 1:22 AM EDT Assessment Noted Time PHQ-9 Depression Total Score: 3 05/24/19 2:24 PM EST documented as of this encounter Care Teams Supervisor Quilting Relationship Specialty Start Date End Date Omid Jimenes MD [address] [place] [address] Dr COBB [address] [place] [address] PCP - General 10/28/13 Omid Jimenes MD [address] [place] [address] Dr COBB [address] [place] [address] Historical LMR Provider 02/15/17 Emmanuel Lyman MD [address] [place] [address] [id number] [place] [address] [email or web address] Boiler Water Tester Cardiology 11/22/20 Lizandro Guallpa MD [address] [facility] [id number] [place] [address] [email or web address] 03/03/21 Cameron Vital MD, MSc [address] [place] [address] [id number] [place] [address] [email or web address] Boiler Water Tester Cardiology 03/03/21 documented as of this encounter Additional Source Comments The information contained in this document represents components of the legal health record. It is not the complete legal health record.[facility]
--- OUTSIDE RECORDS SUMMARY | 2025-01-21 12:07 | XMS_ITS | Encounter Summary ---
Author Organization [facility] Address [address] [facility] [address] [place] [address] Phone Care Team Providers Care Internal Security Manager Name Role Phone Omid Jimenes MD Primary Care Provider Omid Jimenes MD Unavailable [phone] Emmanuel Lyman MD Unavailable [phone] Lizandro Guallpa MD Unavailable Cameron Vital MD, MSc Unavailable [phone] Encounter Details Date Type Department Care Team (Late st Contact Info) Description 09/08/2021 Procedure Pass [facility] Card[facility] US [address] [place] [address] Social History Tobacco Use Types Packs/Day Years Used Date Smoking Tobacco: Former Cigarettes 964 1985 Smokeless Tobacco: Never Alcohol Use Standard [...] (Latest Contact Info) Description 09/25/2024 Procedure Pass [facility] Cardiac US [address] [place] [address] 02/18/2025 1:00 PM EDT Appointment [facility] Cardiac US [address] [place] [address] Emmanuel Lyman MD [address] [facility] [address] [id number] [place] [address] [email or web address] 02/18/2025 2:30 PM EDT Ancillary Procedure [facility] [address] [facility], 5th [address], [address] [place] [address] Leni Gramajo, LEIS [address] [facility] [address] [place] [address] [email or web address] 03/10/2025 10:40 AM EST Office Visit [facility] Rheumatology [address] [place] [address] Geraldine Jay MD, MPH [address] [facility], [address] [place] [address] [email or web address] documented as of this encounter Visit Diagnoses Not on filedocumented in this encounter Additional Health Concerns Infection Onset Date Last Indicated Resolved Time CoV-Risk 12/07/2023 12/07/2023 12/18/2023 1:22 AM EDT Assessment Noted Time PHQ-9 Depression Total Score: 3 05/24/19 22 2:24 PM EST documented as of this encounter Care Teams Internal Security Manager Relationship Specialty Start Date End Date Omid Jimenes MD [address] [place] [address] [place] [address] PCP - General 10/28/13 Omid Jimenes MD [address] [place] [address] [place] [address] Historical LMR Provider 02/15/17 Emmanuel Lyman MD [address] [place] [address] [id number] [place] [address] [email or web address] [employer] Special Education Teacher Cardiology 11/22/20 Lizandro Guallpa MD [address] [place] [address] [id number] [place] [address] [email or web address] Rheumatology 03/03/21 Cameron Vital MD, MSc [address] [place], [place] [id number] [place] [address] [email or web address] [employer] Special Education Teacher Cardiology 03/03/21 documented as of this encounter Additional Source Comments The information contained in this document represents components of the legal health record. It is not the complete legal health record.[facility]
--- OUTSIDE RECORDS SUMMARY | 2025-01-21 12:07 | XMS_ITS | Encounter Summary ---
Author Organization [facility] Address [address] [facility] [address] [place] [address] Phone Care Team Providers Care Enterprise Cloud Architect Name Role Phone Omid Jimenes MD Primary Care Provider Ramsey Ortez MD Unavailable [email or web address] Omid Jimenes MD Unavailable [phone] Emmanuel Lyman MD Unavailable [phone] iLzandro Guallpa MD Unavailable Cameron Vital MD, MSc Unavailable [phone] Encounter Details Date Type Department Care Team (Late st Contact Info) Description 12/09/2018 Procedure Pass [facility] Endoscopy Admitting Dept Virtual Department 30 [place] [address] Social History Tobacco Use Types [...] (Latest Contact Info) Description 09/25/2024 Procedure Pass [facility] Cardiac US 55 [place] [address] 02/18/2025 1:00 PM EDT Appointment [facility] Cardiac US 55 [place] [address] Emmanuel Lyman MD 55 [facility] [address] [id number] [place] [address] [email or web address] 02/18/2025 2:30 PM EDT Ancillary Procedure [facility] [address] [facility], 5th Floor, [address] [place] [address] Leni Gramajo, DRILLING SUPERVISOR 55 [facility] 8 [place] [address] [email or web address] 03/10/2025 10:40 AM EST Office Visit [facility] Rheumatology [address] [place] [address] [place] [address] Geraldine Jay MD, MPH [address] [facility], [address] [place] [address] [email or web address] documented as of this encounter Visit Diagnoses Not on filedocumented in this encounter Additional Health Concerns Infection Onset Date Last Indicated Resolved Time CoV-Risk 12/07/2023 12/07/2023 12/18/2023 1:22 AM EDT documented as of this encounter Care Teams Enterprise Cloud Architect Relationship Specialty Start Date End Date Omid Jimenes MD [address] [place] [address] [place] [address] PCP - General 10/28/13 Ramsey Ortez MD [email or web address]. [employer] Historical LMR Provider 02/15/17 03/02/21 Omid Jimenes MD [address] [place] [address] [place] [address] Historical LMR Provider 02/15/17 Emmanuel Lyman MD [address] [place] [address] [id number] [address] [email or web address] Top Screw Cardiology 11/22/20 Lizandro Guallpa MD [address] [place] [address] [id number] [place] [address] [email or web address] joseph [place].[facility] Rheumatology 03/03/21 Cameron Vital MD, MSc [address] [place], [place] [id number] [place] [address] [email or web address]@[email or web address] Top Screw Cardiology 03/03/21 documented as of this encounter Additional Source Comments The information contained in this document represents components of the legal health record. It is not the complete legal health record.[facility]
--- OUTSIDE RECORDS SUMMARY | 2025-01-21 12:08 | XMS_ITS | Encounter Summary ---
Author Organization [facility] Address [address] [facility] [address] [place] [address] Phone Care Team Providers Care Wood Die Maker Name Role Phone Omid Jimenes MD Primary Care Provider Omid Jimenes MD Unavailable [phone] Emmanuel Lyman MD Unavailable [phone] Lizandro Guallpa MD Unavailable Cameron Vital MD, MSc Unavailable [phone] Encounter Details Date Type Department Care Team (Late st Contact Info) Description 03/17/2021 Procedure Pass [facility] Cardiac US [address] [place] [address] Social History Tobacco Use Types Packs/Day Years Used Date Smoking Tobacco: Former Cigarettes 961985 Smokeless Tobacco: Never Alcohol Use Standard Drinks/Week [...] (Latest Contact Info) Description 09/25/2024 Procedure Pass [facility] Cardiac US 55 [place] [address] 02/18/2025 1:00 PM EDT Appointment [facility] Cardiac US 55 [place] [address] Emmanuel Lyman MD 55 [facility] [address] [id number] [place] [address] [email or web address] 02/18/2025 2:30 PM EDT Ancillary Procedure [facility] [address] [facility], 5th Floor, [address] [place] [address] Leni Gramajo, ELIS [address] [facility] 8 [place] [address] CHANDLER@[email or web address] 03/10/2025 10:40 AM EST Office Visit [facility] Rheumatology [address] [place] [address] Geraldine Jay MD, MPH [address] [facility], [address] [place] [address] [email or web address] documented as of this encounter Visit Diagnoses Not on filedocumented in this encounter Additional Health Concerns Infection Onset Date Last Indicated Resolved Time CoV-Risk 12/07/2023 12/07/2023 12/18/2023 1:22 AM EDT documented as of this encounter Care Teams Wood Die Maker Relationship Specialty Start Date End Date Omid Jimenes MD [address] [place] [address] [place] [address] PCP - General 10/28/13 Omid Jimenes MD [address] [place] [address] [place] [address] Historical LMR Provider 02/15/17 Emmanuel Lyman MD [address] [place] [address] [id number] [place] [address] [email or web address] Dough Cutting Machine Operator Cardiology 11/22/20 Lizandro Guallpa MD [address] [place] [address] [id number] [address] [email or web address] Rheumatology 03/03/21 Cameron Vital MD, MSc [address] [place] [address] [id number] [place] [address] [email or web address].[place].[facility] Dough Cutting Machine Operator Cardiology 03/03/21 documented as of this encounter Additional Source Comments The information contained in this document represents components of the legal health record. It is not the complete legal health record.[facility]
--- OUTSIDE RECORDS SUMMARY | 2025-01-21 12:08 | XMS_ITS | Encounter Summary ---
Author Organization [facility] Address [address] [facility] [address]85 [place] [address] Phone Care Team Providers Care Physician Relations Specialist Name Role Phone Omid Jimenes MD Primary Care Provider Omid Jimenes MD Unavailable [phone] Emmanuel Lyman MD Unavailable [phone] Lizandro Guallpa MD Unavailable Cameron Vital MD, MSc Unavailable [phone] Reason for Referral * MRI/CAT Scan - Closed Specialty Diagnoses / Procedures Referred By Flores barrett Referred To Contact Radiology Diagnoses Radiculopathy, lumbar region Procedures MRI Lumbar Spine Dimitri Dominguez PA Phone: tel: fax: Referral ID Status Reason Start Date Expiration Date Visits Re quested Visits Authorized [id number] Closed 10/26/2022 1 1 Encounter Details Date Type Department Care Team (Late st Contact Info) Description 10/26/2022 Transcribe Orders Virtual Department 30 [place] [address] Dimitri Dominguez PA [address] [place] [address] Radiculopathy, lumbar region (Primary Dx) Social History Tobacco Use Types Packs/Day Years Used Date Smoking Tobacco: Former Cigarettes 1 1985 Smokeless Tobacco: Never Alcohol Use Standard [...] (Latest Contact Info) Description 09/25/2024 Procedure Pass [facility] Cardiac US 55 [place] [address] 02/18/2025 1:00 PM EDT Appointment [facility] Cardiac US 55 [place] [address] Emmanuel Lyman MD [address] [facility] [address] [id number] [place] [address] [email or web address] 02/18/2025 2:30 PM EDT Ancillary Procedure [facility] [address] [facility], 5th Floor, [address] [place] [address] Leni Gramajo, SENIOR INTERACTIVE PRODUCER [address] [place] [address] CHANDLER@[email or web address] 03/10/2025 10:40 AM EST Office Visit [facility] Rheumatology [address] [place] [address] Geraldine Jay MD, MPH [address] [facility], [address] [place] [address] [email or web address] documented as of this encounter Results * MRI LUMBAR SPINE (NEURO) WITHOUT CONTRAST (11/10/2022 5:42 PM EDT) Anatomical Region Laterality Modality L-spine Magnetic Resonan ce 11/14/2022 8:04 AM EDT Impressions 11/14/2022 10:03 PM EDT Lumbar spine degenerative changes as described, not significant changed since 06/08/2021, most notable for foraminal stenosis which is severe on the right at L3-L4, moderate to severe on the right and severe on the left at L4-L5, and moderate on the left at L5-S1. Moderate spinal canal stenosis at L4-L5. Narrative 11/14/2022 10:03 PM EDT MRI LUMBAR SPINE (NEURO) WITHOUT CONTRAST TECHNIQUE: MRI LUMBAR SPINE (NEURO) WITHOUT CONTRAST Multi-sequence, multi-planar MRI of the lumbar spine was performed without intravenous contrast. COMPARISON: As per report. FINDINGS: Alignment and Vertebrae: Multilevel mild superior endplate height loss, without advanced compression fracture. Levoconvex curvature centered at L3. Marrow: Normal. No bone marrow replacing lesion. Discs and Endplates: Multilevel severe disc space narrowing. Marked endplate marrow edema flanking the L2-L3 intervertebral disc space. Other Findings: None. Findings by level: T12-L1: Diffuse disc bulge. Mild spinal canal stenosis. No significant foraminal stenosis. L1-L2: Diffuse disc bulge. Right facet arthropathy. Ligamentum flavum hypertrophy. Mild bilateral foraminal stenosis. Mild spinal canal stenosis. L2-L3: Diffuse disc bulge. Bilateral facet arthropathy. Ligamentum flavum hypertrophy. Mild bilateral foraminal stenosis. No significant central spinal canal stenosis. L3-L4: Diffuse disc bulge. Bilateral facet arthropathy. Severe right and mild left foraminal stenosis. Mild to moderate spinal canal stenosis. L4-L5: Posterior disc osteophyte complex. Severe bilateral facet arthropathy. Moderate to severe right and severe left foraminal stenosis. Moderate spinal canal stenosis. L5-S1: Diffuse disc bulge. Bilateral facet arthropathy. Ligamentum flavum hypertrophy. Moderate left and mild to moderate right foraminal stenosis. No significant central spinal canal stenosis. Findings are not significantly changed since 06/08/2021. Procedure Note Naeem Concepcion MD - 11/14/2022 MRI LUMBAR SPINE (NEURO) WITHOUT CONTRAST TECHNIQUE: MRI LUMBAR SPINE (NEURO) WITHOUT CONTRAST Multi-sequence, multi-planar MRI of the lumbar spine was performed withoutintravenous contrast. COMPARISON: As per report. FINDINGS: Alignment and Vertebrae: Multilevel mild superior endplate height loss,without advanced compression fracture. Levoconvex curvature centered atL3. Marrow: Normal. No bone marrow replacing lesion. Discs and Endplates: Multilevel severe disc space narrowing. Markedendplate marrow edema flanking the L2-L3 intervertebral disc space. Other Findings: None. Findings by level: T12-L1: Diffuse disc bulge. Mild spinal canal stenosis. No significantforaminal stenosis. L1-L2: Diffuse disc bulge. Right facet arthropathy. Ligamentum flavumhypertrophy. Mild bilateral foraminal stenosis. Mild spinal canalstenosis. L2-L3: Diffuse disc bulge. Bilateral facet arthropathy. Ligamentum flavumhypertrophy. Mild bilateral foraminal stenosis. No significant centralspinal canal stenosis. L3-L4: Diffuse disc bulge. Bilateral facet arthropathy. Severe right andmild left foraminal stenosis. Mild to moderate spinal canal stenosis. L4-L5: Posterior disc osteophyte complex. Severe bilateral facetarthropathy. Moderate to severe right and severe left foraminal stenosis.Moderate spinal canal stenosis. L5-S1: Diffuse disc bulge. Bilateral facet arthropathy. Ligamentum flavumhypertrophy. Moderate left and mild to moderate right foraminal stenosis.No significant central spinal canal stenosis. Findings are not significantly changed since 06/08/2021. IMPRESSION: Lumbar spine degenerative changes as described, not significant changedsince 06/08/2021, most notable for foraminal stenosis which is severe on theright at L3- L4, moderate to severe on the right and severe on the left atL4-L5, and moderate on the left at L5-S1. Moderate spinal canal stenosisat L4-L5. us Dimitri ARVIZU IMG MR XSPECIALTY Final Res ult * XR LUMBOSACRAL SPINE 4 OR MORE VIEWS (11/07/2022 10:56 AM EDT) Anatomical Region Laterality Modality L-spine Computed Radiogr aphy 11/11/2022 10:5 4 AM EDT Impressions 11/11/2022 10:57 AM EDT Severe lumbar spine degenerative change. Unchanged alignment in flexion and extension. Narrative 11/11/2022 10:57 AM EDT XR LUMBOSACRAL SPINE 4 OR MORE VIEWS COMPARISON: MRI LUMBAR SPINE (NEURO) WITHOUT CONTRAST ; MRI LUMBAR SPINE (NEURO) WITHOUT CONTRAST FINDINGS: ALIGNMENT: Levoconvex lumbar scoliosis centered at L3. 5-6 mm retrolisthesis at L2-3, unchanged in flexion and extension. 4 mm L1-L2 retrolisthesis, unchanged in flexion and extension. VERTEBRAE: Bones demineralized. Unchanged L2 superior endplate compression fracture with 10-25% height loss. DISCS: Disc height loss and plate sclerosis and marginal osteophytes at all levels. FACETS: Facet arthropathy L2-S1. PARASPINAL SOFT TISSUES: Moderate aortic vascular calcification. Constipation. Sacral iliac joint degenerative changes. Right upper quadrant cholecystectomy clips. Procedure Note Neri Carmona MD - 11/11/2022 XR LUMBOSACRAL SPINE 4 OR MORE VIEWS COMPARISON: MRI LUMBAR SPINE (NEURO) WITHOUT CONTRAST ; MRILUMBAR SPINE (NEURO) WITHOUT CONTRAST FINDINGS: ALIGNMENT: Levoconvex lumbar scoliosis centered at L3. 5-6 mmretrolisthesis at L2-3, unchanged in flexion and extension. 4 mm L1-W7tjcirrldyldexs, unchanged in flexion and extension. VERTEBRAE: Bones demineralized. Unchanged L2 superior endplate compressionfracture with 10-25% height loss. DISCS: Disc height loss and plate sclerosis and marginal osteophytes atall levels. FACETS: Facet arthropathy L2-S1. PARASPINAL SOFT TISSUES: Moderate aortic vascular calcification.Constipation. Sacral iliac joint degenerative changes. Right upperquadrant cholecystectomy clips. IMPRESSION: Severe lumbar spine degenerative change. Unchanged alignment in flexion and extension. Dimitri ARVIZU IMG XR SPINE Final Resul t documented in this encounter Visit Diagnoses Diagnosis Radiculopathy, lumbar region- Primary Thoracic or lumbosacral neuritis or radiculitis, unspecified Radiculopathy, lumbar region Thoracic or lumbosacral neuritis or radiculitis, unspecified Radiculopathy, lumbar region Thoracic or lumbosacral neuritis or radiculitis, unspecified documented in this encounter Additional Health Concerns Infection Onset Date Last Indicated Resolved Time CoV-Risk 12/07/2023 12/07/2023 12/18/2023 1:22 AM EDT Assessment Noted Time PHQ-9 Depression Total Score: 3 05/24/19 22 2:24 PM EST documented as of this encounter Care Teams Physician Relations Specialist Relationship Specialty Start Date End Date Omid Jimenes MD [address] [place] [address] [place] [address] PCP - General 10/28/13 Omid Jimenes MD [address] [place] [address] [place] [address] Historical LMR Provider 02/15/17 Emmanuel Lyman MD [address] [place] [address] [id number] [place] [address] [email or web address] Green Chain Worker Cardiology 11/22/20 Lizandro Guallpa MD [address] [place] [address] [id number] [place] [address] [email or web address] 03/03/21 Cameron Vital MD, MSc [address] [place] [address] [id number] [place] [address] [email or web address] Green Chain Worker Cardiology 03/03/21 documented as of this encounter Additional Source Comments The information contained in this document represents components of the legal health record. It is not the complete legal health record.[facility]
--- OUTSIDE RECORDS SUMMARY | 2025-01-21 12:08 | XMS_ITS | Clinical Summary ---
Author Organization [facility] Address [address] [place] [address] Care Team Providers Care Automobile Wrecker Name Role Phone Omid Jimenes MD Primary Care Provider [phone] Social History Tobacco Use Types Packs/Day Years [...] - 1-dose 75+ series) 07/04/2019 Depression Screening 04/30/2024 COVID-19 Vaccine ( - 2023-2 5 season) 2024 Influenza Vaccine (#1) 2024 HIB Vaccines Aged [...] age to complete this topic Care Teams Automobile Wrecker Relationship Specialty Start Date End Date Omid Jimenes MD PCP - General 12/21/10
--- OUTSIDE RECORDS SUMMARY | 2025-01-21 12:08 | XMS_ITS | Encounter Summary ---
Author Organization [facility] Address [address] [facility] [address] [place] [address] Phone Care Team Providers Care Automobile Radiator Mechanic Name Role Phone Omid Jimenes MD Primary Care Provider Ramsey Ortez MD Unavailable [email or web address] Omid Jimenes MD Unavailable [phone] Emmanuel Lyman MD Unavailable [phone] Lizandro Guallpa MD Unavailable Cameron Vital MD, MSc Unavailable [phone] Encounter Details Date Type Department Care Team (Late st Contact Info) Description 04/21/2020 Telephone [employer] [facility] Rheumatology [address] [place] [id number] Ramsey Ortez MD [email or web address] Social History Tobacco Use Types Packs/Day Years [...] (Latest Contact Info) Description 09/25/2024 Procedure Pass [facility] Card[facility] 55 [place] [address] 02/18/2025 1:00 PM EDT Appointment [facility] Cardiac US 55 [place] [address] Emmanuel Lyman MD 55 [facility] [id number] [place] [address] [email or web address] 02/18/2025 2:30 PM EDT Ancillary Procedure [facility] [address] [facility], 5th Floor, [address] [place] [address] Leni Gramajo, NURSES' REGISTRY DIRECTOR 55 [facility] 8 [place] [address] [email or web address] 03/10/2025 10:40 AM EST Office Visit [facility] Rheumatology 22 [place] [address] Geraldine Jay MD, MPH [address] [facility], [address] [place] [address] [email or web address] documented as of this encounter Visit Diagnoses Not on filedocumented in this encounter Additional Health Concerns Infection Onset Date Last Indicated Resolved Time CoV-Risk 12/07/2023 12/07/2023 12/18/2023 1:22 AM EDT documented as of this encounter Care Teams Automobile Radiator Mechanic Relationship Specialty Start Date End Date Omid Jimenes MD [address] [place] [address] [place] [address] PCP - General 10/28/13 Ramsey Ortez MD [email or web address] Historical LMR Provider 02/15/17 03/02/21 Omid Jimenes MD [address] [place] [address] [place] [address] Historical LMR Provider 02/15/17 Emmanuel Lyman MD [address] [place] [address] [id number] [place] [address] [email or web address] Silo Filler Cardiology 11/22/20 Lizandro Guallpa MD [address] [facility] [id number] [place] [address] [email or web address] Rheumatology 03/03/21 Cameron Vital MD, MSc [address] [place] [address] [id number] [place] [address] [email or web address].[place].[facility] Silo Filler Cardiology 03/03/21 documented as of this encounter Additional Source Comments The information contained in this document represents components of the legal health record. It is not the complete legal health record.[facility]
--- OUTSIDE RECORDS SUMMARY | 2025-01-21 12:08 | XMS_ITS | Encounter Summary ---
Author Organization [facility] Address [address] [facility] [address] [place] [address] Phone Care Team Providers Care Director Product Management Name Role Phone Omid Jimenes MD Primary Care Provider Omid Jimenes MD Unavailable [phone] Emmanuel Lyman MD Unavailable [phone] Lizandro Guallpa MD Unavailable Cameron Vital MD, MSc Unavailable [phone] Encounter Details Date Type Department Care Team (Late st Contact Info) Description 03/16/2021 Procedure Pass [facility] Cardiac US [address] [place] [address] Social History Tobacco Use Types Packs/Day Years [...] Author No Risk Indicated 03/16/2021 5:00 PM EST Son Van RN * [place] Suicide Severity Rating Scale (Screener/Recent Self-Report) Question [...] (Latest Contact Info) Description 09/25/2024 Procedure Pass [facility] Cardiac 55 [place] [address] 02/18/2025 1:00 PM EDT Appointment [facility] Cardiac US 55 [place] [address] Emmanuel Lyman MD 55 [facility] [id number] [place] [address] [email or web address] 02/18/2025 2:30 PM EDT Ancillary Procedure [facility] [address] [facility], 5th Floor, [address] [place] [address] Leni Gramajo CNP 55 [facility] 8 [place] [address] CHANDLER@[email or web address] 03/10/2025 10:40 AM EST Office Visit [facility] Rheumatology [address] [place] [address] Geraldine Jay MD, MPH [address] [facility], [address] [place] [address] [email or web address] documented as of this encounter Visit Diagnoses Not on filedocumented in this encounter Additional Health Concerns Infection Onset Date Last Indicated Resolved Time CoV-Risk 12/07/2023 12/07/2023 12/18/2023 1:22 AM EDT documented as of this encounter Care Teams Director Product Management Relationship Specialty Start Date End Date Omid Jimenes MD [address] [place] [address] Dr COBB [address] [place] [address] PCP - General 10/28/13 Omid Jimenes MD [address] [place] [address] Dr COBB [address] [place] [address] [place] [address] Historical LMR Provider 02/15/17 Emmanuel Lyman MD [address] [place] [address] [id number] [place] [address] [email or web address] Auto Leasing Manager Cardiology 11/22/20 Lizandro Guallpa MD [address] [place] [address] [id number] [place] [address] [email or web address] Rheumatology 03/03/21 Cameron Vital MD, MSc [address] [place], [place] [id number] [place] [address] [email or web address].[place].[facility] Auto Leasing Manager Cardiology 03/03/21 documented as of this encounter Additional Source Comments The information contained in this document represents components of the legal health record. It is not the complete legal health record.[facility]
--- OUTSIDE RECORDS SUMMARY | 2025-01-21 12:08 | XMS_ITS | Encounter Summary ---
Author Organization [facility] Address [address] [place] [address] Phone Care Team Providers Care Recovery Unit Operator Name Role Phone Omid Jimenes MD Primary Care Provider Omid Jimenes MD Unavailable [phone] Emmanuel Lyman MD Unavailable [phone] Lizandro Guallpa MD Unavailable Cameron Vital MD, MSc Unavailable [phone] Encounter Details Date Type Department Care Team (Late st Contact Info) Description 03/16/2021 Procedure Pass [facility]PT [address] [facility] [place] [address] Social History Tobacco Use Types Packs/Day [...] 03/16/2021 5:00 PM Son Banuelos RN * [place] Suicide Severity Rating Scale (Screener/Recent Self-Report) Question [...] (Latest Contact Info) Description 09/25/2024 Procedure Pass [facility] Cardiac US [address] [place] [address] 02/18/2025 1:00 PM EDT Appointment [facility] Card[facility] US [address] [place] [address] Emmanuel Lyman MD [address] [facility] [id number] [place] [address] [email or web address] 02/18/2025 2:30 PM EDT Ancillary Procedure [facility] [address] [facility], 5th Floor, [address] [place] [address] Leni Gramajo, ELIS [address] [facility] 8 [place] [address] [email or web address] 03/10/2025 10:40 AM EST Office Visit [facility] Rheumatology [address] [place] [address] Geraldine Jay MD, MPH [address], [address] [place] [address] [email or web address] documented as of this encounter Visit Diagnoses Not on filedocumented in this encounter Additional Health Concerns Infection Onset Date Last Indicated Resolved Time CoV-Risk 12/07/2023 12/07/2023 12/18/2023 1:22 AM EDT documented as of this encounter Care Teams Recovery Unit Operator Relationship Specialty Start Date End Date Omid Jimenes MD [address] [place] [address] Dr COBB [address] [place] [address] PCP - General 10/28/13 Omid Jimenes MD [address] [place] [address] [place] [address] Historical LMR Provider 02/15/17 Emmanuel Lyman MD [address] [place] [address] [id number] [place] [address] [email or web address] Operations Developer Cardiology 11/22/20 Lizandro Guallpa MD [address] [place] [address] [id number] [place] [address] [email or web address] Rheumatology 03/03/21 Cameron Vital MD, MSc [address] [place] [address] [id number] [place] [address] [email or web address] Operations Developer Cardiology 03/03/21 documented as of this encounter Additional Source Comments The information contained in this document represents components of the legal health record. It is not the complete legal health record.[facility]
--- OUTSIDE RECORDS SUMMARY | 2025-01-21 12:08 | XMS_ITS | Encounter Summary ---
Author Organization [facility] Address [address] [place] [address] Phone Care Team Providers Care Stopper Setter Name Role Phone Omid Jimenes MD Primary Care Provider Ramsey Ortez MD Unavailable [email or web address] Omid Jimenes MD Unavailable Emmanuel Lyman MD Unavailable [phone] Lizandro Guallpa MD Unavailable Cameron Vital MD, MSc Unavailable [phone] Encounter Details Date Type Department Care Team (Late st Contact Info) Description 02/17/2017 Ancillary Orders [facility], Bone Density - [address] [address] Omid Jimenes MD [address] [place] [address] Dr Bon[place] [id number] At risk for osteoporosis Social History Tobacco Use Types Packs/Day Years Used Date Smoking Tobacco: Never Assessed Comments Unknown Sex and Gender Information Value Date Recorded Sex Assigned at Female 10/30/2018 9:51 PM EDT Legal Sex Female 5:37 PM EST Gender Identity Female 10/30/2018 9:51 PM EDT Sexual Orientation Straight 10/30/2018 9: 51 PM EDT documented as of this encounter Plan of Treatment Upcoming Encounters Date Type Department Care Team (Latest Contact Info) Description 09/25/2024 Procedure Pass [facility] Cardiac US 55 [place] [address] 02/18/2025 1:00 PM EDT Appointment [facility] Card[facility] US 55 [place] [address] Emmanuel Lyman MD [address] [facility] [address] [id number] [place] [address] [email or web address] 02/18/2025 2:30 PM EDT Ancillary Procedure [facility] [address] [facility], 5th [address], [address] [place] [address] Leni Gramajo, DIRECTOR RETAIL BRAND DEVELOPMENT [address] [facility] [place] 8 [place] [address] [email or web address] 03/10/2025 10:40 AM EST Office Visit [facility] Rheumatology [address] [place] [address] [place] [address] Geraldine Jay MD, MPH [address] [facility], [address] [place] [address] [email or web address] documented as of this encounter Results * BD DXA AXIAL (SPINE) WITH HIP (03/08/2017 1:14 PM EST) Anatomical Region Laterality Modality Bone Density Bone Density 03/08/2017 2:02 PM EST Impressions 03/08/2017 2:04 PM EST Normal bone mineral density at all three sites assessed. POS - [id number] Narrative 03/08/2017 2:04 PM EST COMPARISON: None FINDINGS: This is a 71-year-old postmenopausal white female who reports 1-2 inches of perceived height loss. Evaluation of the lumbar spine and hips was performed and felt to be technically adequate. L4 excluded due to sclerotic change. Total bone mineral density in the L1-L3 vertebral bodies was calculated at 1.289 gm/cm2 with a T-score of 2.5 falling within the WHO classification of normal. Z-score of 4.7. Total bone mineral density in the right hip was calculated at 1.114 gm/cm2 with a T-score of 1.4 falling within the WHO classification of normal. Z-score of 3.1. Total bone mineral density in the left hip was calculated at 1.062 gm/cm2 with a T-score of 1.0 falling within the WHO classification of normal. Z-score of 2.6. Procedure Note John Ashley MD - 03/08/2017 COMPARISON: None FINDINGS: This is a 71-year-old postmenopausal white female who reports1-2 inches of perceived height loss. Evaluation of the lumbar spine and hips was performed and felt to betechnically adequate. L4 excluded due to sclerotic change. Total bone mineral density in theL1-L3 vertebral bodies was calculated at 1.289 gm/cm2 with a T-score of2.5 falling within the WHO classification of normal. Z-score of 4.7. Total bone mineral density in the right hip was calculated at 1.114 gm/qe3duea a T-score of 1.4 falling within the WHO classification of normal.Z-score of 3.1. Total bone mineral density in the left hip was calculated at 1.062 gm/fx6vmez a T-score of 1.0 falling within the WHO classification of normal.Z-score of 2.6. IMPRESSION: Normal bone mineral density at all three sites assessed. POS - [id number] Omid Jimenes MD IM BD BONE DENSITY DEX A Final Result documented in this encounter Visit Diagnoses Diagnosis At risk for osteoporosis Other specified conditions influencing health status At risk for osteoporosis Other specified conditions influencing health status documented in this encounter Additional Health Concerns Infection Onset Date Last Indicated Resolved Time CoV-Risk 12/07/2023 12/07/2023 12/18/2023 1:22 AM EDT documented as of this encounter Care Teams Stopper Setter Relationship Specialty Start Date End Date Omid Jimenes MD [address] [place] [address] [place] [address] PCP - General 10/28/13 Ramsey Ortez MD [email or web address] Historical LMR Provider 02/15/17 03/02/21 Omid Jimenes MD [address] [place] [address] [place] [address] Historical LMR Provider 02/15/17 Emmanuel Lyman MD [address] [place] [address] [id number] [place] [address] [email or web address] [employer] Cardiology 11/22/20 Lizandro Guallpa MD [address] [place] [address] [id number] [place] [address] [email or web address] Rheumatology 03/03/21 Cameron Vital MD, MSc [address] [place] [address] [id number] [place] [address] [email or web address] Cardiology 03/03/21 documented as of this encounter Additional Source Comments The information contained in this document represents components of the legal health record. It is not the complete legal health record.[facility]
--- OUTSIDE RECORDS SUMMARY | 2025-01-21 12:08 | XMS_ITS | Encounter Summary ---
Author Organization [facility] Address [address] [place] [address] Phone Care Team Providers Care Appeals Rn Name Role Phone Omid Jimenes MD Primary Care Provider Ramsey Ortez MD Unavailable [email or web address] Omid Jimenes MD Unavailable [phone] Emmanuel Lyman MD Unavailable [phone] Lizandro Guallpa MD Unavailable Cameron Vital MD, MSc Unavailable [phone] Encounter Details Date Type Department Care Team (Late st Contact Info) Description 02/19/2019 Ancillary Orders [facility] Rheumatology [address] [place] [address] Ramsey Ortez MD [email or web address] Disorder of rotator cuff, right Social History Tobacco Use Types Packs/Day Years [...] Contact Info) Description 09/25/2024 Procedure Pass [facility] Cardiac US 55 [place] [address] 02/18/2025 1:00 PM EDT Appointment [facility] Cardiac US [address] [place] [address] Emmanuel Lyman MD [address] [facility] [id number] [place] [address] [email or web address] 02/18/2025 2:30 PM EDT Ancillary Procedure [facility] [address] [facility], 5th [address], [address] [place] [address] Leni Gramajo, OPERATIONS LEADER [address] [facility] 8 [place] [address] [email or web address] 03/10/2025 10:40 AM EST Office Visit [facility] Rheumatology 22 [place] [address] Geraldine Jay MD, MPH [address] [facility] [place] [address] [email or web address] documented as of this encounter Results * XR SHOULDER 2 VIEWS (BILATERAL) (02/19/2019 2:36 PM EDT) Anatomical Region Laterality Modality Shoulder Left Radiographic Karena ging 02/19/2019 4:45 PM EDT Impressions 02/19/2019 4:51 PM EDT 1. Elevation of the right humeral head consistent with full-thickness rotator cuff tendon tear. This can be correlated clinically. 2. Moderate degenerative changes at the acromioclavicular joint on the right and more mild degenerative changes at the glenohumeral joint. Evidence of calcific tendinitis. 3. Moderate degenerative changes at the acromioclavicular joint on the left and more mild degenerative changes at the glenohumeral joint. Evidence of calcific tendinitis. POS - [id number] Narrative 02/19/2019 4:51 PM EDT HISTORY: Bilateral shoulder pain. VIEWS: Three views of right shoulder, three views of left shoulder. COMPARISON: None. FINDINGS: Right: Elevation of the humeral head. Moderate hypertrophic changes at the acromioclavicular joint including spurring inferiorly. Evidence of joint space narrowing and mild spurring at the glenohumeral joint. No fractures, subluxations or dislocations. Comma shaped area of calcification or ossification in the soft tissues adjacent to the lateral aspect of the humeral head. Left: Moderate hypertrophic changes at the acromioclavicular joint similar to the right. Evidence of joint space narrowing and mild spurring at the glenohumeral joint. Calcific densities within the soft tissues superior to the humeral head. Procedure Note Raoul Packer MD - 02/19/2019 HISTORY: Bilateral shoulder pain. VIEWS: Three views of right shoulder, three views of left shoulder. COMPARISON: None. FINDINGS: Right: Elevation of the humeral head. Moderate hypertrophic changes atthe acromioclavicular joint including spurring inferiorly. Evidence ofjoint space narrowing and mild spurring at the glenohumeral joint. Nofractures, subluxations or dislocations. Comma shaped area ofcalcification or ossification in the soft tissues adjacent to the lateralaspect of the humeral head. Left: Moderate hypertrophic changes at the acromioclavicular joint similarto the right. Evidence of joint space narrowing and mild spurring at theglenohumeral joint. Calcific densities within the soft tissues superiorto the humeral head. IMPRESSION: 1. Elevation of the right humeral head consistent with full-thicknessrotator cuff tendon tear. This can be correlated clinically. 2. Moderate degenerative changes at the acromioclavicular joint on theright and more mild degenerative changes at the glenohumeral joint.Evidence of calcific tendinitis. 3. Moderate degenerative changes at the acromioclavicular joint on theleft and more mild degenerative changes at the glenohumeral joint.Evidence of calcific tendinitis. POS - [id number] us Ramsey Ortez MD IMG XR UPPER EXTREMITY Fin al Result documented in this encounter Visit Diagnoses Diagnosis Disorder of rotator cuff, right Disorder of rotator cuff, right documented in this encounter Additional Health Concerns Infection Onset Date Last Indicated Resolved Time CoV-Risk 12/07/2023 12/07/2023 12/18/2023 1:22 AM EDT documented as of this encounter Care Teams Appeals Rn Relationship Specialty Start Date End Date Omid Jimenes MD [address] [place] [address] Dr COBB [address] [place] [address] PCP - General 10/28/13 Ramsey Ortez MD [email or web address] Historical LMR Provider 02/15/17 03/02/21 Omid Jimenes MD [address] [place] [address] [place] [address] Historical LMR Provider 02/15/17 Emmanuel Lyman MD [address] [place] [address] [id number] [place] [address] [email or web address] [address] Manager Cardiology 11/22/20 Lizandro Guallpa MD [address] [place] [address] [id number] [place] [address] [email or web address] Rheumatology 03/03/21 Cameron Vital MD, MSc [address] [place] [address] [email or web address] [address] Manager Cardiology 03/03/21 documented as of this encounter Additional Source Comments The information contained in this document represents components of the legal health record. It is not the complete legal health record.[facility]
--- OUTSIDE RECORDS SUMMARY | 2025-01-21 12:09 | XMS_ITS | Patient Health Record ---
Author Organization Omid Jimenes MD Address [address] [place] [address] [phone] Care Team Providers Care Gang Knife Fish Chopper Name Role Phone Omid Jimenes Primary Care [...] atorvastatin Lipitor cramps Drug Allergy Acti ve Results Component Value Reference Range Notes Liver Panel Reviewed date:09/26/2024 04:14:17 PM Interpretation: Performing Lab:[facility], [address] [place] [phone] Notes/Report: Bilirubin Total 0.4 0.0-1.0 mg/dL Bilirubin Direct 0.2 0.0-0.5 mg/dL Aspartate Amino Transferase 36 5-31 U/L Alanine Aminotransferase 24 0-31 U/L Total Protein 7.1 6.5-8.0 g/dL Albumin Level 3.7 3.5-5.0 g/dL Alkaline Phosphatase 81 39-117 U/L Glucose Fasting Reviewed date:09/26/2024 04:14:33 PM Interpretation: Performing Lab:[facility], [address] [place] [phone] Notes/Report: Glucose Fasting 158 60-99 mg/dL A fasting glucose of 126 mg/dl or greater on more than one occasion is considered diagnostic of diabetes. Lipid Panel with Reflex Reviewed date:09/26/2024 04:15:11 PM Interpretation: Performing Lab:[facility], [address] [place] [phone] Notes/Report: Triglycerides 169 <150 mg/dL Desirable Triglyceride: [...] A1c Reviewed date:09/26/2024 12:54:48 PM Interpretation: Performing Lab:[facility], [address] [place] [phone] Notes/Report: Hemoglobin A1c % 5.9 <6.0 % [...] average glucose, using the formula of the L8Z-Rcnfowi Average Glucose study (ADAG), Diabetes Care, Vol.31,#8, 2007 Complete Blood Count Auto Di ff Reviewed date:02/19/2024 08:34:52 PM Interpretation: Performing Lab:[facility], [address] [place] [phone] Notes/Report: White Blood Count 10.3 4.8-10.8 X10*3/uL [...] NRBC Abs Auto 0.000 0.0-0.012 X10*3/uL Comprehensive [place]. Panel Fa Reviewed date:02/19/2024 08:44:28 PM Interpretation: Performing Lab:[facility], [address] [place] [phone] Notes/Report: Sodium 141 135-145 mmol/L Potassium 4.4 3.3-5.1 mmol/L Chloride 102 96-108 mmol/L Carbon Dioxide 27 22-29 mmol/L Anion Gap 16 12-20 Blood Urea Nitrogen 28 9-16 mg/dL Creatinine 1.40 0.5-1.4 mg/dL Estimated Glomerular Filt Rate 36 NOTE: For -Surinamese individuals, multiply the result by 1.210. Chronic [...] PROFILE Reviewed date:02/19/2024 08:33:19 PM Interpretation: Performing Lab:[facility], [address] [place] [phone] Notes/Report: Iron 84 30-160 mcg/dL Total Iron Binding Capacity 256 228-428 mcg/dL Percent Iron Saturation 33 15-50 % Unsaturated Iron Binding 172 Lipid Panel Reviewed date:02/19/2024 08:24:06 PM Interpretation: Performing Lab:[facility], [address] [place] [phone] Notes/Report: Triglycerides 134 <150 mg/dL Desirable Triglyceride: [...] Total Reviewed date:02/19/2024 08:32:16 PM Interpretation: Performing Lab:[address] [phone] Notes/Report: Vitamin D 25-OH Total 37.7 >30 [...] T4 Reviewed date:02/19/2024 08:33:11 PM Interpretation: Performing Lab:[address] [phone] Notes/Report: TSH reflex Free T4 3.76 0.32-4.0 uIU/mL Microalbumin, Random Reviewed date:02/19/2024 08:24:16 PM Interpretation: Performing Lab:[address] [address] Notes/Report: Creatinine Urine 88.42 Microalbumin Urine 32.0 Microalbum/Creatinine Ratio Ur 36.1 <30 ug/mg cr Albumin/Creatinine Ratio Reference Ranges: Normal: < 30 ug/mg creatinine Microalbuminuria: 30 - 300 ug/mg creatinine Clinical Albuminuria: > 300 ug/mg creatinine Hemoglobin A1c Reviewed date:02/19/2024 08:36:41 PM Interpretation: Performing Lab:[facility], [address] [place] [phone] Notes/Report: Hemoglobin A1c % 5.9 <6.0 % [...] average glucose, using the formula of the J9I-Vwhxqce Average Glucose study (ADAG), Diabetes Care, Vol.31,#8, Nov. 2007 UA ClnCatch+Micro w/rflx Cul t Reviewed date:02/19/2024 08:35:51 PM Interpretation: Performing Lab:[facility], [address] [place] [phone] Notes/Report: Urine, Clean Catch Color Urine Yellow Appearance Urine Clear PH 7.0 5.0-9.0 Glucose Urine UA Negative Negative mg/dL Urine Blood Negative Negative Specific [place] - Urine 1.010 1.005-1.025 Urine Protein Negative Neg-Trace mg/dL Urine Ketones Negative Negative mg/dL Nitrite Urine Negative Negative Leukocyte Esterase Urine Small (1+) Negative RBC Urine 0-2 0-2 /HPF WBC Urine 6-10 0-5 /HPF Squamous Epithelial Cell Urine 11-20 0-2 /HPF Bacteria Urine 1+ None Seen Hyaline Casts Urine 6-10 0-2 /LPF Hold Gold Reviewed date:02/19/2024 05:44:22 PM Interpretation: Performing Lab:[facility], [address] [place] [phone] Notes/Report: Hold Gold See Note Specimen held untested for 24 hours; Call to request Chemistry testing. Urine Culture Reviewed date:02/20/2024 05:04:39 PM Interpretation: Performing Lab:[facility], [address] [facility], [place] [address] Notes/Report: Urine Culture Report Result Urine Culture 50,000 to 100,000 cfu/ml Urine Culture Mixed bacterial newton a characteristic of Urine Culture urogenital contamination. XR DEXA axial skeleton Reviewed date:02/29/2024 05:11:35 PM Interpretation: Performing Lab: Notes/Report: [address] [place] [address] Mammography Report Signed Patient: Vy Fishman MR#: [id number] 121 : 1945 Acct:[id number] Age/Sex: 78 / F ADM Date: 02/28/24 Loc: HOChrisMAMMO Attending Dr: Omid Jimenes MD Ordering Physician: Omid Jimenes MD Results: Date of Service: 02/28/24 Follow Up: Procedure(s): XR DEXA axial skeleton Accession Number(s): [id number] cc: Omid Jimenes MD EXAMINATION: BONE DENSITOMETRY CLINICAL INDICATION: Age-related osteoporosis without current pathological fracture. COMPARISON: This is the patient's baseline examination. TECHNIQUE: Using a [employer] DXA System (software version: 13.1) manufactured by [employer], dual-energy x-ray absorptiometry was performed of the [...] 02/29/24 1219 DD/ 1300 TD/TT: 02/28/24 1320 Lawn And Garden Technician: NATALIE [facility] [address] [place] [address] Mammography Report Signed Patient: Vy Fishman MR#: [id number] 121 : 1945 Acct:[id number] Age/Sex: 78 / F ADM Date: 02/28/24 Loc: HO.MAMMO Attending Dr: Omid Jimenes MD Ordering Physician: Omid Jimenes MD Results: Date of Service: 02/28/24 Follow Up: Procedure(s): XR DEX A axial skeleton Accession Number(s): [id number] cc: Omid Jimenes MD EXAMINATION: BONE DENSITOMETRY CLINICAL INDICATION: Age-related osteoporosis without current pathological fracture. COMPARISON: This is the patient' s baseline examination. TECHNIQUE: Using a [employer] DXA System (software version: 13.1) manufactured by [employer], dual-energy x-ray absorptiometry was performed of the [...] 02/29/24 1219 DD/ 1300 TD/TT: 02/28/24 1320 Lawn And Garden Technician: MM tomosynthesis screening B I Reviewed date:05/25/2024 05:17:35 PM Interpretation: Performing Lab: Notes/Report: [facility] [address] [place] [address] Mammography Report Signed Patient: Vy Fishman MR#: [id number] [birth year] : 1945 Acct:[id number] Age/Sex: 78 / F ADM Date: 05/14/24 Loc: HO.MAMMO Attending Dr: Omid Jimenes MD Ordering Physician: Omid Jimenes MD Results: 2Be nign Findings Date of Service: 05/14/24 Follow Up: 1 Year From [facility] Mammogram Procedure(s): MM tomosynthesis screening BI Accession Number(s): [id number] cc: Omid Jimenes MD EXAMINATION: MM SCREENING [...] 05/25/24 1039 DD/ 1445 TD/TT: 05/14/24 1520 Lawn And Garden Technician: [place] [facility] [address] [place] [address] Mammography Report Signed Patient: Vy Fishman MR#: [id number] 121 : 1945 Acct:[id number] Age/Sex: 78 / F ADM Date: 05/14/24 Loc: HO.MAMMO Attending Dr: Omid Jimenes MD Ordering Physician: Omid Jimenes MD Results: 2Be nign Findings Date of Service: 05/14/24 Follow Up: 1 Year From [facility] Mammogram Procedure(s): MM tomosynthesis screening BI Accession Number(s): [id number] cc: Omid Jimenes MD EXAMINATION: MM SCREENING [...] DO Signed By: <Electronically signed by Dahlia Geren DO in OV> 05/25/24 1039 DD/ 1445 TD/TT: 05/14/24 1520 Lawn And Garden Technician: Nini Melendez Reviewed date:09/26/2024 12:30:19 PM Interpretation: Performing Lab:[facility], [address] [place] [phone] Notes/Report: Nini Melendez See Note Specimen held untested for 24 hours; Call to request Chemistry testing. Reason For Referral Reason osteopenia of hip p lease eval and treat Diagnosis 1 Osteopenia of hip, u nspecified laterality (M85.859) Referral Organization Omid Jimenes MD Referring Provider First Name Omid Referring Provider Last Name Jlail Referring Provider Speciality Internal M edicine Referred Provider Patrice Jay Referred Provider Specialty Endocrinolog y General Notes Charlette Mcdaniel 09:44:28 AM EST > referral faxed , Charlette Mcdaniel 03/18/2024 02:42:54 PM EST > patient is aware of appt Referral Priority Routine Referral Appointment Date 03/25/2024 Medications Medication SIG (Take, Route, Frequency, Duration) Notes Start Date End Date Status HYDROcodone-Acetaminophen 7.5-325 MG (Schedule II Drug) TAKE 1 TABLET BY MOUTH EVERY 8 HOURS NEEDED FOR PAIN Oral for 30 Active Potassium Chloride ER 10 MEQ TAKE [...] e a day for 90 days Active Ventolin [...] day for 7 days 11/30/2023 Active Nystop 054758 UNIT/GM APPLY ONE APPLICAT ION EXTERNALLY TWO TIMES A DAY Externally Twice a day for 90 days Active ZyrTEC Allergy 10 MG 1 tablet Orally Onc e a day for 90 days Active Meclizine HCl 25 MG TAKE ONE TABLET BY M OUTH TWICE A DAY NEEDED Orally every 12 hrs for 28 days Active traZODone HCl 50 MG 1 tablet at bedtime as needed Orally Once a day for 30 day(s) Active Atorvastatin Calcium 20 MG TAKE ONE TABL ET BY MOUTH EVERY DAY for 90 Active Bepreve 1.5 % INSTILL 1 TO 2 DROPS IN EACH EYE DAILY NEEDED Ophthalmic Twice a day for 20 days Active Ferrous Sulfate 325 (65 Fe) MG 1 tablet Orally Once a day for 90 days Active [employer] Unifine Pentips Plus 31G X 6 MM USE DIRECTED TWO TIMES A DAY SUBCUTANEOUSLY sq Two times a day for 90 days Active Calcitriol 0.25 MCG 1 capsule Orally Thr ee times a Week for 90 days Active Furosemide 80 MG TAKE ONE TABLET BY M OUTH TWICE A DAY Orally teice a day for 90 days Active Mounjaro 5 MG/0.5ML INJECT CONTENTS OF O NE PEN UNDER THE SKIN ONCE A WEEK for 28 Active Spiriva Respimat 1.25 MCG/ACT INHALE 2 PUFFS DAILY Inhalation Once a day for 90 days Active Calcitriol 0.25 MCG 1 capsule Orally Thr ee times a Week for 90 days Active Flovent HFA 220 MCG/ACT USE 2 PUFFS TWIC E DAILY Inhalation Twice a day for 90 days Active Lantus SoloStar 100 UNIT/ML 70 units Subcutaneous 70 units twice a day for 90 days Active Florastor 250 MG TAKE ONE CAPSULE BY MOUTH TWICE A DAY Orally twice a day for 90 days Active Valsartan [...] Problem Status W/U Status Risk Notes Problem 94732871 Hemoptysis (R04.2) Active confirmed Problem 48254446 Vitamin D defici ency (E55.9) Active confirmed Problem 36227090 Hypercalcemia (E83.52) Active confirme d Problem 466118249 Other specified menopausal and perimenopausal disorders (N95.8) Active confirmed Problem 810128953 Body mass index (BMI) 45.0-49.9, adult (Z68.42) Active confirmed Problem 0319653 Arthritis (M19.90) Active confirmed Problem 2773276 Diastolic dysfun ction (I51.9) Active confirmed Problem 445799665 Tubular adenoma of colon (D12.6) Active confirmed Problem 84180074 Essential hypert ension (I10) Active confirmed Problem 244447008 Acquired hypothyroidism (E03.9) Active confirmed Problem 836249951 Mild intermitten t asthma without complication (J45.20) Active confirmed Problem 36955356 Type 2 diabetes mellitus without complication (E11.9) Active confirmed Problem 1037798 Aortic valve dis order (I35.9) Active confirmed Problem 909842979 Morbid obesity d ue to excess calories (E66.01) Active confirmed Problem 15470475 Chronic obstruct manolo pulmonary disease, unspecified COPD type (J44.9) Active confirmed Problem 265962071 History of hemat uria (Z87.448) Active confirmed Problem 855656842 Acute systolic congestive heart failure (I50.21) Active confirmed Problem 542214416205258 Moderate persist ent asthma with acute exacerbation (J45.41) Active confirmed Problem 058608669 Iron deficiency anemia due to chronic blood loss (D50.0) Active confirmed Problem 502809274 GERD (gastroesop hageal reflux disease) (K21.9) Active confirmed Problem 87941156 Aortic valve terrence nosis, unspecified etiology (I35.0) Active confirmed Problem 33979848 Liver cyst (K76.89) Active confirmed Problem 732530714 Pure hypercholesterolemia (E78.00) Active confirmed Problem 785320485 OAB (overactive bladder) (N32.81) Active confirmed Problem 32345373 CLEVE (obstructive sleep apnea) (G47.33) Active confirmed Problem 405229932 Hand arthritis (M19.049) Active confirmed Problem 234780737 Arthritis pain o f hand (M19.049) Active confirmed Problem 601553462 Arthritis pain o f shoulder (M19.019) Active confirmed Problem History of heart valve repair with prosthesis ([id number]) H/O aortic valve replacement (Z95.2) Active confirmed Problem 341287424 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) Active confirmed Problem 205500273 Acute constipati on (K59.00) Active confirmed Vital [...] Omid Jimenes MD [address] [place] [id number] 09/26/2024 Omid Jimenes Type 2 diabetes kel itus without complication E11.9 and Pure hypercholesterolemia E78.00 Omid Jimenes MD [address] [place] [address] Drive [address] [place] [id number] 02/19/2024 Omid Jimenes Type 2 diabetes kel itus without complication E11.9 ; Acquired hypothyroidism E03.9 ; Essential hypertension I10 ; Vitamin D deficiency E55.9 and Iron deficiency anemia due to chronic blood loss D50.0 Omid Jimenes MD [address] [place] [address] [id number] 02/29/2024 Omid Jimenes Acute systolic conge stive heart failure I50.21 ; Morbid obesity due to excess calories E66.01 and Chronic obstructive pulmonary disease, unspecified COPD type J44.9 Omid Jimenes MD [address] [place] [address] [id number] 09/29/2024 Omid Jimenes Type 2 diabetes kel itus without complication E11.9 ; Mild intermittent asthma without complication J45.20 and Pure hypercholesterolemia E78.00 Omid Jimenes MD [address] [place] [address] [address] [place] [address] [id number] 02/07/2024 Omid Jimenes Type 2 diabetes kel [...] Omid Jimenes MD [address] [place] [address] [id number] 03/06/2024 Omid Jimenes MD [address] [place] [address] [id number] 03/07/2024 Omid Jimenes Breast cancer screen ing Z12.31 Omid Jimenes MD [address] [place] [address] [id number] 11/25/2024 Omid Jimenes MD [address] [place] [address] [id number] 12/15/2024 Omid Jimenes MD [address] [place] [address] [id number] 12/25/2024 Omid Jimenes Type 2 diabetes kel itus [...] kel itus without complication (ICD-10 - E11.9) 02/19/2024 Type 2 diabetes kel itus without complication (ICD-10 - E11.9) 02/19/2024 Acquired hypothyroid ism (ICD-10 - E03.9) 02/29/2024 Acute systolic congestive heart failure (ICD-10 - I50.21) stable with coninuous shortness of breath/ order faxed to [facility] CS dept 02/29/2024 Morbid obesity due t o excess calories (ICD-10 - E66.01) has lost some weight 09/29/2024 Type 2 diabetes kel itus without complication (ICD-10 - E11.9) maintain the same dose of mounjaro since she is still getting nausea 02/07/2024 Type 2 diabetes kel itus without complication (ICD-10 - E11.9) 12/25/2024 Type 2 diabetes kel itus without complication (ICD-10 - E11.9) 09/26/2024 Pure hypercholesterolemia (ICD-10 - E78.00) 02/19/2024 Essential hypertensi on (ICD-10 - I10) 02/29/2024 Chronic obstructive pulmonary disease, unspecified COPD type (ICD-10 - J44.9) stable 09/29/2024 Mild intermittent as thma without complication (ICD-10 - J45.20) continue with present meds/ 02/07/2024 Arthritis (ICD-10 - M19.90) 03/07/2024 Breast cancer screen ing (ICD-10 - Z12.31) 12/25/2024 Arthritis (ICD-10 - M19.90) 02/19/2024 Vitamin D deficiency (ICD-10 - E55.9) 09/29/2024 Pure hypercholesterolemia (ICD-10 - E78.00) stable, will continue with current regiment 02/07/2024 Essential hypertensi on (ICD-10 - I10) 12/25/2024 Essential hypertensi on (ICD-10 - I10) 02/19/2024 Iron deficiency anem ia due to chronic blood loss (ICD-10 - D50.0) 02/07/2024 Laceration of left k nee, subsequent encounter (ICD-10 - S81.012D) 12/25/2024 Laceration of left k nee, subsequent encounter (ICD-10 - S81.012D) 02/07/2024 Acquired hypothyroid ism (ICD-10 - E03.9) 12/25/2024 Acquired hypothyroid ism (ICD-10 - E03.9) 02/07/2024 GERD (gastroesophage al reflux disease) (ICD-10 - K21.9) 12/25/2024 GERD (gastroesophage al reflux disease) (ICD-10 - K21.9) 02/07/2024 Acute systolic congestive heart failure (ICD-10 - I50.21) 12/25/2024 Acute systolic congestive heart failure (ICD-10 - I50.21) 02/07/2024 Pure hypercholesterolemia (ICD-10 - E78.00) 12/25/2024 Mild intermittent as thma without complication (ICD-10 - J45.20) 02/07/2024 Mild intermittent as thma without complication (ICD-10 - J45.20) 12/25/2024 Acute cellulitis (IC D-10 - L03.90) 02/07/2024 Acute cellulitis (IC D-10 - L03.90) Plan Of Treatment Pending Test Test Name Order Date ECHO EXAM OF HEART 06/29/2015 CBC (INCLUDES DIFF/PLT) 10/07/2020 TSH (THYROID STIMULATING HORMONE) 2018 IRON + IBC (FE) 10/07/2020 VITAMIN B12 AND FOLATE 10/07/2020 XR KNEE LT 4 VIEWS 06/09/2022 BONE DENSITY DEXA 11/26/2023 MAMMOGRAM DIGITAL BILATERAL SCREEN 02/28 MAMMOGRAM DIGITAL BILATERAL SCREEN 03/07 EMG 12/07/2016 Nerve Conduction Study 12/07/2016 Next Appt Details Provider Name:Omid Akhtar ier, 01/27/2025 11:15:00 AM, [address] [place] [address], [address], [id number], Provider Name:Omid Akhtar ier, 02/24/2025 07:15:00 AM, [address] [place] [address], [address], [phone], Provider Name:Omid Akhtar ier, 03/03/2025 02:30:00 PM, [address] [place] [address], [address], [id number], Insurance Providers Payer Name Payer Address Payer Phone Subscriber Number Group Number Insured Name Patient Relationship to Insured Coverage Start Date Coverage End Date MEDICARE NHIC TAHIR [address] [place] [address] [id number] yV Fishman Self - patient is the insured [facility] [address] [place] [address] [id number] Vy Fishman Self - patient is the insured Medical (General) History Medical History History ICD Code Endoscopy and colonoscopy do ne 05/2007; both done 01/30/2014 repeat in 5 : 03/28/22 colonocopy awaiting path hematuria work up in 20's Needs yearly echo - DX Aortic Stenosis ( done 06/2015) ct abdomen 12/21 at [facility] normal
--- OUTSIDE RECORDS SUMMARY | 2025-01-21 12:09 | XMS_ITS | Encounter Summary ---
Author Organization [facility] Address [address] [place] [address] Phone Care Team Providers Care Information And Referral Director Name Role Phone Omid Jimenes MD Primary Care Provider Ramsey Ortez MD Unavailable [email or web address] Omid Jimenes MD Unavailable [phone] Emmanuel Lyman MD Unavailable [phone] Lizandro Guallpa MD Unavailable Cameron Vital MD, MSc Unavailable [phone] Encounter Details Date Type Department Care Team (Late st Contact Info) Description 11/18/2020 Procedure Pass [facility] IMG 3DCTMR MG [address] [place], [place] [id number] Social History Tobacco Use Types Packs/Day Years [...] (Latest Contact Info) Description 09/25/2024 Procedure Pass [facility] US [address] [place] [address] 02/18/2025 1:00 PM EDT Appointment [facility] [address] [place] [address] Emmanuel Lyman MD [address] [facility] [address] [id number] [place] [address] [email or web address] 02/18/2025 2:30 PM EDT Ancillary Procedure [facility] [address] [facility] 5th [address], [address] [place] [address] Leni Gramajo, COMMUNICATIONS ASSISTANT [address] [facility] [address] [place] [address] [email or web address] 03/10/2025 10:40 AM EST Office Visit [facility] Rheumatology [address] [place] [address] [place] [address] Geraldine Jay MD, MPH [address] [facility], [address] [place] [address] [email or web address] documented as of this encounter Visit Diagnoses Not on filedocumented in this encounter Additional Health Concerns Infection Onset Date Last Indicated Resolved Time CoV-Risk 12/07/2023 12/07/2023 12/18/2023 1:22 AM EDT documented as of this encounter Care Teams Information And Referral Director Relationship Specialty Start Date End Date Omid Jimenes MD [address] [place] [address] [place] [address] PCP - General 10/28/13 Ramsey Ortez MD [email or web address] Historical LMR Provider 02/15/17 03/02/21 Omid Jimenes MD [address] [place] [address] [place] [address] Historical LMR Provider 02/15/17 Emmanuel Lyman MD [address] [place] [address] [id number] [address] [email or web address] Nurse Practitioner Cardiology 11/22/20 Lizandro Guallpa MD [address] [place] [address] [id number] [address] [email or web address] 03/03/21 Cameron Vital MD, MSc [address] [place] [id number] [place] [address] [email or web address] Nurse Practitioner Cardiology 03/03/21 documented as of this encounter Additional Source Comments The information contained in this document represents components of the legal health record. It is not the complete legal health record.[facility]
--- OUTSIDE RECORDS SUMMARY | 2025-01-21 12:09 | XMS_ITS | Clinical Summary ---
Author Organization [facility] Address [facility] [address] Care Team Providers Care Secondary Market Manager Name Role Phone Unavailable Primary Care Provider [...] Daily. Active azelastine-fluti casone (DYMISTA) 137-50 mcg/spray [place], Non-Aerosol 1 puff in each nostril Active [...] puff into the lungs Twice daily. 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 [...] of this 29-minute visit was spent in [id number] conversation with the patient and her present [...] Medications are be left unchanged and enlarged motel manager on tools and utensils and be used [...] - 1-dose 75+ series) 07/04/2019 Covid-19 Vaccine ( season) 2024 Influenza (Flu) vaccine (1 o f 1 - Influenza standard series) 12/29/2024 [place] [id number] [facility] [place] [id number]
--- OUTSIDE RECORDS SUMMARY | 2025-01-21 12:09 | XMS_ITS | Encounter Summary ---
Author Organization [facility] Address [address] [facility] [address] [place] [address] Phone Care Team Providers Care Room Attendant Name Role Phone Omid Jimenes MD Primary Care Provider Ramsey Ortez MD Unavailable [email or web address] [email or web address] Omdi Jimenes MD Unavailable [phone] Emmanuel Lyman MD Unavailable [phone] Lizandro Guallpa MD Unavailable Cameron Vital MD, MSc Unavailable [phone] Reason for Referral * Physical Therapy (Routine) - Closed Specialty Diagnoses / Procedures Referred By Flores barrett Referred To Contact Physical Therapy Diagnoses Encounter for rehabilitation System, Provider Not In, [facility] [address] [address] Phone: tel: Referral ID Status Reason Start Date Expiration Date Visits Re quested Visits Authorized [id number] Closed 01/24/2018 01/24/2019 99 [phone] Encounter Details Date Type Department Care Team (Latest Contact Info) Description 01/24/2018 Transcribe Orders [facility] [address] [place] [address] Omid Jimenes MD [address] [place] [address] [place] [address] Encounter for rehabilitation (Primary Dx) Social History Tobacco Use Types [...] (Latest Contact Info) Description 09/25/2024 Procedure Pass [facility] Cardiac US [address] [place] [address] 02/18/2025 1:00 PM EDT Appointment [facility] Cardiac US [address] [place] [address] Emmanuel Lyman MD 55 [facility] [id number] [place] [address] [email or web address] 02/18/2025 2:30 PM EDT Ancillary Procedure [facility] [address] [facility], 5th Floor, [address] [place] [address] Leni Gramajo, ELIS 55 [facility] 8 [place] [address] CHANDLER@[email or web address] 03/10/2025 10:40 AM EST Office Visit [facility] Rheumatology [address] [place] [address] Geraldine Jay MD, MPH [address] [facility], [address] [place] [address] [email or web address] Scheduled Referrals Name Type Priority Associated Diagnoses Orde r Schedule Ambulatory referral to [facility] Physical Therapy Outpatient Referral Routine Encounter for rehabilitation Ordered: 01/24/2018 documented as of this encounter Visit Diagnoses Diagnosis Encounter for rehabilitation- Primary documented in this encounter Additional Health Concerns Infection Onset Date Last Indicated Resolved Time CoV-Risk 12/07/2023 12/07/2023 12/18/2023 1:22 AM EDT documented as of this encounter Care Teams Room Attendant Relationship Specialty Start Date End Date Omid Jimenes MD [address] [place] [address] Dr COBB [address] [place] [address] PCP - General 10/28/13 Ramsey Ortez MD [email or web address] Historical LMR Provider 02/15/17 03/02/21 Omid Jimenes MD [address] [place] [address] Dr COBB [address] [place] [address] Historical LMR Provider 02/15/17 Emmanuel Lyman MD [address] [place] [address] [id number] [place] [address] [email or web address] Environmental Services Project Manager Cardiology 11/22/20 Lizandro Guallpa MD [address] [place] [address] [id number] [place] [address] [email or web address] Rheumatology 03/03/21 Cameron Vital MD, MSc [address] [place] [address] [id number] [place] [address] [email or web address] Environmental Services Project Manager Cardiology 03/03/21 documented as of this encounter Additional Source Comments The information contained in this document represents components of the legal health record. It is not the complete legal health record.[facility]
--- OUTSIDE RECORDS SUMMARY | 2025-01-21 12:09 | XMS_ITS | Encounter Summary ---
Author Organization [facility] Address [address] [facility] [address] [place] [address] Phone Care Team Providers Care Clinical Interviewer Name Role Phone Omid Jimenes MD Primary Care Provider Ramsey Ortez MD Unavailable [email or web address] [email or web address] Omid Jimenes MD Unavailable [phone] Emmanuel Lyman MD Unavailable [phone] Lizandro Guallpa MD Unavailable Cameron Vital MD, MSc Unavailable [phone] Encounter Details Date Type Department Care Team (Late st Contact Info) Description 10/22/2017 Procedure Pass [address] [place] [address] Social History Tobacco Use Types Packs/Day Years Used Date Smoking Tobacco: Never Assessed Comments Unknown Sex and Gender Information Value Date Recorded Sex Assigned at Female 10/30/2018 9:51 PM EDT Legal Sex Female 5:37 PM EST Gender Identity Female 10/30/2018 9:51 PM EDT Sexual Orientation Straight 10/30/2018 9: 51 PM EDT documented as of this encounter Last Filed Vital Signs Vital Sign Reading Time Taken Comments Blood Pressure - - Pulse - - Temperature - - Respiratory Rate - - Oxygen Saturation - - Inhaled Oxygen Concentration - - Weight 122.5 kg (270 lb) 10/23/2017 9:17 AM EDT Height 162.6 cm (5' 4 ) 10/23/2017 9:17 AM EDT Body Mass Index 46.35 10/23/2017 9:17 AM EDT documented in this encounter Plan of Treatment Upcoming Encounters Date Type Department Care Team (Latest Contact Info) Description 09/25/2024 Procedure Pass [facility] [address] [place] [address] 02/18/2025 1:00 PM EDT Appointment [facility] Cardiac US [address] [place] [address] Emmanuel Lyman MD 55 [facility] [id number] [place] [address] [email or web address] 02/18/2025 2:30 PM EDT Ancillary Procedure [facility] [address] [facility], 5th Floor, [address] [place] [address] Leni Gramajo, ELIS 55 [facility] 8 [place] [address] [email or web address] 03/10/2025 10:40 AM EST Office Visit [facility] Rheumatology 22 [place] [address] Geraldine Jay MD, MPH 22 [facility], [address] [place] [address] [email or web address] documented as of this encounter Visit Diagnoses Not on filedocumented in this encounter Additional Health Concerns Infection Onset Date Last Indicated Resolved Time CoV-Risk 12/07/2023 12/07/2023 12/18/2023 1:22 AM EDT documented as of this encounter Care Teams Clinical Interviewer Relationship Specialty Start Date End Date Omid Jimenes MD [address] [place] [address] [place] [address] PCP - General 10/28/13 Ramsey Ortez MD [email or web address] Historical LMR Provider 02/15/17 03/02/21 Omid Jimenes MD [address] [place] [address] [place] [address] Historical LMR Provider 02/15/17 Emmanuel Lyman MD [address] [place] [address] [id number] [place] [address] [email or web address] Building Official Cardiology 11/22/20 Lizandro Guallpa MD [address] [place] [address] [id number] [place] [address] [email or web address] Translation Solutionsgateway rehabilitation hospital.[facility] Rheumatology 03/03/21 Cameron Vital MD, MSc [address] [place] [address] [id number] [place] [address] [email or web address].[facility] Building Official Cardiology 03/03/21 documented as of this encounter Additional Source Comments The information contained in this document represents components of the legal health record. It is not the complete legal health record.[facility]
--- OUTSIDE RECORDS SUMMARY | 2025-01-21 12:09 | XMS_ITS | Encounter Summary ---
Author Organization [facility] Address [address] [facility] [address] [place] [address] Phone Care Team Providers Care Acid Purifier Name Role Phone Omid Jimenes MD Primary Care Provider Omid Jimenes MD Unavailable [phone] Emmanuel Lyman MD Unavailable [phone] Lizandro Guallpa MD Unavailable Cameron Vital MD, MSc Unavailable [phone] Encounter Details Date Type Department Care Team (Late st Contact Info) Description 03/21/[address] [facility] Cardiac US [address] [place] [address] Social History Tobacco Use Types Packs/Day Years [...] (Latest Contact Info) Description 09/25/[address] [facility] Cardiac US [address] [place] [address] 02/18/2025 1:[address] [facility] Cardiac US [address] [place] [address] Emmanuel Lyman MD 55 [facility] [address] [id number] [place] [address] [email or web address] 02/18/2025 2:30 PM EDT Ancillary Procedure [facility] 32 [facility], 5th Floor, [address] [place] [address] Leni Gramajo, ELIS 55 [facility] [place] 8 [place] [address] [email or web address] 03/10/2025 10:40 AM EST Office Visit [facility] Rheumatology [address] [place] [address] Geraldine Jay MD, MPH [address] [facility], [address] [place] [address] [email or web address] documented as of this encounter Visit Diagnoses Not on filedocumented in this encounter Additional Health Concerns Infection Onset Date Last Indicated Resolved Time CoV-Risk 12/07/2023 12/07/2023 12/18/2023 1:22 AM EDT documented as of this encounter Care Teams Acid Purifier Relationship Specialty Start Date End Date Omid Jimenes MD [address] [place] [address] [place] [address] PCP - General 10/28/13 Omid Jimenes MD [address] [place] [address] [place] [address] Historical LMR Provider 02/15/17 Emmanuel Lyman MD [address] [place] [address] [id number] [place] [address] [email or web address] Photography Instructor Cardiology 11/22/20 Lizandro Guallpa MD [address] [place] [address] [id number] [address] [email or web address] county [email or web address] Rheumatology 03/03/21 Cameron Vital MD, MSc [address] [place] [address] [id number] [place] [address] [email or web address] Photography Instructor Cardiology 03/03/21 documented as of this encounter Additional Source Comments The information contained in this document represents components of the legal health record. It is not the complete legal health record.[facility]
--- OUTSIDE RECORDS SUMMARY | 2025-01-21 12:09 | XMS_ITS | Encounter Summary ---
Author Organization [facility] Address [address] [facility] [address] [place] [address] Phone Care Team Providers Care Geospatial Technologist Name Role Phone Omid Jimenes MD Primary Care Provider Ramsey Ortez MD Unavailable [email or web address] [email or web address] Omid Jimenes MD Unavailable [phone] Emmanuel Lyman MD Unavailable [phone] Lizandro Guallpa MD Unavailable Cameron Vital MD, MSc Unavailable [phone] Encounter Details Date Type Department Care Team (Late st Contact Info) Description 08/29/2020 Procedure Pass [facility] Cardiac US [address] [place] [address] Social History Tobacco Use Types Packs/Day Years [...] Description 09/25/2024 Procedure Pass [facility] Cardiac US [address] [place] [address] 02/18/2025 1:00 PM EDT Appointment [facility] Cardiac US [address] [place] [address] Emmanuel Lyman MD [address] [facility] [address] [id number] [place] [address] [email or web address] 02/18/2025 2:30 PM EDT Ancillary Procedure [facility] [address] [facility], 5th Floor, [address] [place] [address] Leni Gramajo, SHOP FOREMAN [address] [facility] [address] [place] [address] [email or web address] 03/10/2025 10:40 AM EST Office Visit [facility] Rheumatology [address] [place] [address] [place] [address] Geraldine Jay MD, MPH [address] [facility], [address] [place] [address] [email or web address] documented as of this encounter Visit Diagnoses Not on filedocumented in this encounter Additional Health Concerns Infection Onset Date Last Indicated Resolved Time CoV-Risk 12/07/2023 12/07/2023 12/18/2023 1:22 AM EDT documented as of this encounter Care Teams Geospatial Technologist Relationship Specialty Start Date End Date Omid Jimenes MD [address] [place] [address] [place] [address] PCP - General 10/28/13 Ramsey Ortez MD [email or web address]. [facility] Historical LMR Provider 02/15/17 03/02/21 Omid Jimenes MD [address] [facility] [address] [place] [address] Historical LMR Provider 02/15/17 Emmanuel Lyman MD [address] [place] [address] [id number] [place] [address] [email or web address] Solid Waste Manager Cardiology 11/22/20 Lizandro Guallpa MD [address] [place] [address] [id number] [place] [address] [email or web address] Rheumatology 03/03/21 Cameron Vital MD, MSc [address] [place] [address] [id number] [place] [address] [email or web address]@[email or web address] Solid Waste Manager Cardiology 03/03/21 documented as of this encounter Additional Source Comments The information contained in this document represents components of the legal health record. It is not the complete legal health record.[facility]
--- OUTSIDE RECORDS SUMMARY | 2025-01-21 12:09 | XMS_ITS | Encounter Summary ---
Author Organization [facility] Address [address] [facility] [address] [place] [address] Phone Care Team Providers Care Engineering Programmer Name Role Phone Omid Jimenes MD Primary Care Provider Ramsey Ortez MD Unavailable [facility] centerweqasim [email or web address] Omid Jimenes MD Unavailable [phone] Emmanuel Lyman MD Unavailable [phone] Lizandro Guallpa MD Unavailable Cameron Vital MD, MSc Unavailable [phone] Encounter Details Date Type Department Care Team (Late st Contact Info) Description 08/29/2020 Procedure Pass [facility] [place], [place] [address] [facility] [facility], 2nd Floor, [address] [place] [address] Social History Tobacco Use Types Packs/Day Years [...] Contact Info) Description 09/25/2024 Procedure Pass [facility] Cardiac US [address] [place] [address] 02/18/2025 1:00 PM EDT Appointment [facility] Card[place] US [address] [place] [address] Emmanuel Lyman MD 55 [facility] [id number] [place] [address] [email or web address] 02/18/2025 2:30 PM EDT Ancillary Procedure [facility] 32 [facility], 5th Floor, [address] [place] [address] Leni Gramajo, VBA PROGRAMMER 55 [facility] 8 [place] [address] CHANDLER@[email or web address] 03/10/2025 10:40 AM EST Office Visit [facility] Rheumatology [address] [place] [address] Geraldine Jay MD, MPH [address] [facility], [address] [place] [address] [email or web address] documented as of this encounter Visit Diagnoses Not on filedocumented in this encounter Additional Health Concerns Infection Onset Date Last Indicated Resolved Time CoV-Risk 12/07/2023 12/07/2023 12/18/2023 1:22 AM EDT documented as of this encounter Care Teams Engineering Programmer Relationship Specialty Start Date End Date Omid Jimenes MD [address] [place] [address] Dr CO[address] [place] [address] PCP - General 10/28/13 Ramsey Ortez MD [email or web address] Historical LMR Provider 02/15/17 03/02/21 Omid Jimenes MD [address] [place] [address] Dr [address] [place] [address] Historical LMR Provider 02/15/17 Emmanuel Lyman MD [address] [place] [address] [id number] [address] [email or web address] Retail Support Specialist Cardiology 11/22/20 Lizandro Guallpa MD [address] [place] [address] [id number] [place] [address] [email or web address] Technologyknox county hospital.[facility] Rheumatology 03/03/21 Cameron Vital MD, MSc [address] [place], [place] [id number] [place] [address] [email or web address].[place].[facility] Pharmacy Retail Support Specialist Cardiology 03/03/21 documented as of this encounter Additional Source Comments The information contained in this document represents components of the legal health record. It is not the complete legal health record.[facility]
--- OUTSIDE RECORDS SUMMARY | 2025-01-21 12:09 | XMS_ITS | Encounter Summary ---
Author Organization [facility] Address [address] [facility] [address] [place] [address] Phone Care Team Providers Care Manufacturing Quality Engineer Name Role Phone Omid Jimenes MD Primary Care Provider Ramsey Ortez MD Unavailable [email or web address] Omid Jimenes MD Unavailable [phone] Emmanuel Lyman MD Unavailable [phone] Lizandro Guallpa MD Unavailable Cameron Vital MD, MSc Unavailable [phone] Reason for Referral * MRI/CAT Scan - Closed Specialty Diagnoses / Procedures Referred By Flores t Referred To Contact Radiology Diagnoses Severe aortic stenosis Procedures CT 3D TAVR Reconstruction Cameron Vital MD, MSc Phone: tel: fax: mailto:[email or web address] [email or web address] Referral ID Status Reason Start Date Expiration Date Visits Re quested Visits Authorized [id number] Closed 11/18/2020 11/18/2021 1 1 Encounter Details Date Type Department Care Team (Latest Contact Info) Description 11/18/2020 Ancillary Orders [facility] [place] Cardiovascular Medicine [address] [facility], 5th Floor, [address] [place] [address] Cameron Vital MD, MSc [address] [place] [address] [email or web address] Severe aortic stenosis Social History Tobacco Use Types Packs/Day Years [...] (Latest Contact Info) Description 09/25/2024 Procedure Pass [facility] [place] Cardiac US 55 [place] [address] 02/18/2025 1:00 PM EDT Appointment [facility] [place] Cardiac US 55 [place] [address] Emmanuel Lyman MD 55 [facility] [address] [id number] [place] [address] [email or web address] 02/18/2025 2:30 PM EDT Ancillary Procedure [facility] [place] [facility] [address] [facility], 5th Floor, [address] [place] [address] Leni Gramajo, SHEET MILL SUPERVISOR [address] [address] [email or web address] 03/10/2025 10:40 AM EST Office Visit [facility] Rheumatology [address] [place] [address] Geraldine Jay MD, MPH [address] [facility], [address] [place] [address] [email or web address] documented as of this encounter Results * CT 3D TAVR Reconstruction (11/19/2020 1:01 PM EDT) Anatomical Region Laterality Modality Heart, Thoracic Vasculature Comp uted Tomography 11/19/2020 2:52 PM EDT Impressions 11/19/2020 8:08 PM EDT Aortic annulus diameter is 22.3 x 19.8 mm, circumference 67.1 mm, and area 3.49 cm2. The aortic valve calcium score is 1598. Minimal luminal diameter is 7.6 mm in the right iliac system and 7.2 mm in the left iliac system. Minimal aortic diameter is 13.0 mm. Minimal luminal diameter of subclavian/axillary artery is 5.9 mm on the right and 6.0 mm on the left. Additional qualitative findings for this examination are reported separately. ATTESTATION: I, Dr. Jose R Russ as teaching physician, have reviewed the images for this case and if necessary edited the report originally created by Taina Fang. Narrative 11/19/2020 8:08 PM EDT 3D MULTIPLANAR REFORMATION WAS PERFORMED AND INTERPRETED. This report contains measurements pertinent for transcatheter percutaneous valve placement planning only. Please see accompanying report under separate accession number for qualitative anatomic findings. FINDINGS: Aortic annulus measured in maximal systolic size: Diameter: 22.3 mm x 19.8 mm Circumference: 67.1 mm Area: 3.49 cm2 Aortic valve calcium score calculated by the Agatston method: 1598 Coronary ostia height: Right: 11.6 mm (to annular plane), 14.4 mm (to hinge point) Left: 12.1 mm (to annular plane), 13.6 mm (to hinge point) Leaflet Lengths: Right: 13.7 mm Left: 15.2 mm Thoracic Aorta: Sinus of Valsalva height: 14.7 mm Sinus of Valsalva: 32.3 mm x 30.6 mm x 29.3 mm (measured from the left/right/noncoronary cusp to the opposite commissure) Sinotubular junction diameter: 29.3 x 27.4 mm Ascending aorta: 34.6 mm x 32.2 mm (at the level of the pulmonary artery bifurcation) Descending Aorta: 23.6 mm x 20.9 mm (at the level of the pulmonary artery bifurcation) Maximum descending aorta diameter: 28.3 mm x 24.8 mm Minimal arterial luminal diameters: Aorta: 15.5 mm x 13.0 mm Right common iliac artery: 11.7 mm x 8.7 mm Right external iliac artery: 8.0 mm x 7.6 mm Right common femoral artery: 9.0 mm x 7.8 mm Left common iliac artery: 10.2 mm x 9.1 mm Left external iliac artery: 8.3 mm x 7.2 mm Left common femoral artery: 8.7 mm x 8.0 mm Right subclavian artery: 6.7 mm x 5.9 mm Right axillary artery: 7.5 mm x 6.0 mm Left subclavian artery: 8.0 mm x 6.1 mm Left axillary artery: 7.5 mm x 6.0 mm Procedure Note Jose R Russ MD - 11/19/2020 3D MULTIPLANAR REFORMATION WAS PERFORMED AND INTERPRETED. This report contains measurements pertinent for transcatheter percutaneousvalve placement planning only. Please see accompanying report underseparate accession number for qualitative anatomic findings. FINDINGS: Aortic annulus measured in maximal systolic size: Diameter: 22.3 mm x 19.8 mm Circumference: 67.1 mm Area: 3.49 cm2 Aortic valve calcium score calculated by the Agatston method: 1598 Coronary ostia height: Right: 11.6 mm (to annular plane), 14.4 mm (to hinge point) Left: 12.1 mm (to annular plane), 13.6 mm (to hinge point) Leaflet Lengths: Right: 13.7 mm Left: 15.2 mm Thoracic Aorta: Sinus of Valsalva height: 14.7 mm Sinus of Valsalva: 32.3 mm x 30.6 mm x 29.3 mm (measured from theleft/right/noncoronary cusp to the opposite commissure) Sinotubular junction diameter: 29.3 x 27.4 mm Ascending aorta: 34.6 mm x 32.2 mm (at the level of the pulmonary arterybifurcation) Descending Aorta: 23.6 mm x 20.9 mm (at the level of the pulmonary arterybifurcation) Maximum descending aorta diameter: 28.3 mm x 24.8 mm Minimal arterial luminal diameters: Aorta: 15.5 mm x 13.0 mm Right common iliac artery: 11.7 mm x 8.7 mm Right external iliac artery: 8.0 mm x 7.6 mm Right common femoral artery: 9.0 mm x 7.8 mm Left common iliac artery: 10.2 mm x 9.1 mm Left external iliac artery: 8.3 mm x 7.2 mm Left common femoral artery: 8.7 mm x 8.0 mm Right subclavian artery: 6.7 mm x 5.9 mm Right axillary artery: 7.5 mm x 6.0 mm Left subclavian artery: 8.0 mm x 6.1 mm Left axillary artery: 7.5 mm x 6.0 mm IMPRESSION: Aortic annulus diameter is 22.3 x 19.8 mm, circumference 67.1 mm, and area3.49 cm2. The aortic valve calcium score is 1598. Minimal luminal diameter is 7.6 mm in the right iliac system and 7.2 mm inthe left iliac system. Minimal aortic diameter is 13.0 mm. Minimal luminal diameter of subclavian/axillary artery is 5.9 mm on theright and 6.0 mm on the left. Additional qualitative findings for this examination are reportedseparately. ATTESTATION: I, Dr. Jose R Russ as teaching physician, have reviewed theimages for this case and if necessary edited the report originally createdby Taina Fang. us Cameron Vital MD, MSc IMG CT Final Result documented in this encounter Visit Diagnoses Diagnosis Severe aortic stenosis Aortic valve disorders Severe aortic stenosis Aortic valve disorders documented in this encounter Additional Health Concerns Infection Onset Date Last Indicated Resolved Time CoV-Risk 12/07/2023 12/07/2023 12/18/2023 1:2 2 AM EDT documented as of this encounter Care Teams Manufacturing Quality Engineer Relationship Specialty Start Date End Date Omid Jimenes MD [address] [place] [address] [place] [address] PCP - General 10/28/13 Ramsey Ortez MD [email or web address] Historical LMR Provider 02/15/17 03/02/21 Omid Jimenes MD [address] [place] [address] [place] [address] Historical LMR Provider 02/15/17 Emmanuel Lyman MD [address] [place] [address] [id number] [place] [address] [email or web address] Security Vehicle Patrol Officer Cardiology 11/22/20 Lizandro Guallpa MD [address] [place] [address] [id number] [place] [address] [email or web address] Rheumatology 03/03/21 Cameron Vital MD, MSc [address] [place] [address] [id number] [place] [address] [email or web address] Security Vehicle Patrol Officer Cardiology 03/03/21 documented as of this encounter Additional Source Comments The information contained in this document represents components of the legal health record. It is not the complete legal health record.[facility]
--- OUTSIDE RECORDS SUMMARY | 2025-01-21 12:09 | XMS_ITS | Encounter Summary ---
Author Organization [facility] Address [address] [facility] [address] [place] [address] Phone Care Team Providers Care Clay Products Machine Operator Name Role Phone Omid Jimenes MD Primary Care Provider Omid Jimenes MD Unavailable [phone] Emmanuel Lyman MD Unavailable [phone] Lizandro Guallpa MD Unavailable Cameron Vital MD, MSc Unavailable [phone] Encounter Details Date Type Department Care Team (Late st Contact Info) Description 01/17/2023 Procedure Pass [facility], [address] [place] [address] Social History Tobacco Use Types Packs/Day Years [...] [facility] Cardiac [address] [address] 02/18/2025 1:00 PM EDT Appointment [facility] Cardiac US [address] [place] [address] Emmanuel Lyman MD [address] [facility] [id number] [place] [address] [email or web address] 02/18/2025 2:30 PM EDT Ancillary Procedure [facility] [address] [facility], 5th Floor, [address] [place] [address] Leni Gramajo, ELIS 55 [facility] [address] [place] [address] [email or web address] 03/10/2025 10:40 AM EST Office Visit [facility] Rheumatology [address] [place] [address] Geraldine Jay MD, MPH [address] [facility], [address] [place] [address] documented as of this encounter Visit Diagnoses Not on filedocumented in this encounter Additional Health Concerns Infection Onset Date Last Indicated Resolved Time CoV-Risk 12/07/2023 12/07/2023 12/18/2023 1:22 AM EDT Assessment Noted Time PHQ-9 Depression Total Score: 3 05/24/19 2:24 PM EST documented as of this encounter Care Teams Clay Products Machine Operator Relationship Specialty Start Date End Date Omid Jimenes MD [address] [place] [address] Dr COBB [address] [place] [address] PCP - General 10/28/13 Omid Jimenes MD [address] [place] [address] Dr COBB [address] [place] [id number] Historical LMR Provider 02/15/17 Emmanuel Lyman MD [address] [place] [address] [id number] [place] [address] [email or web address] Claims Adjustor Cardiology 11/22/20 Lizandro Guallpa MD [address] [facility] [id number] [place] [address] [email or web address] Rheumatology 03/03/21 Cameron Vital MD, MSc [address] [place] [address] [id number] [place] [address] [email or web address] Claims Adjustor Cardiology 03/03/21 documented as of this encounter Additional Source Comments The information contained in this document represents components of the legal health record. It is not the complete legal health record.[facility]
--- OUTSIDE RECORDS SUMMARY | 2025-01-21 12:09 | XMS_ITS | Encounter Summary ---
Author Organization [facility] Address [address] [facility] [address] [place] [address] Phone Care Team Providers Care Qualitative Field Project Manager Name Role Phone Omid Jimenes MD Primary Care Provider Omid Jimenes MD Unavailable [phone] Emmanuel Lyman MD Unavailable [phone] Lizandro Guallpa MD Unavailable Cameron Vital MD, MSc Unavailable [phone] Encounter Details Date Type Department Care Team (Late st Contact Info) Description 11/29/2022 Procedure Pass [facility] Cardiac US [address] [place] [address] Social History Tobacco Use Types Packs/Day Years [...] (Latest Contact Info) Description 09/25/2024 Procedure Pass [facility] Cardiac [address] [address] 02/18/2025 1:00 PM EDT Appointment [facility] Cardiac US [address] [place] [address] Emmanuel Lyman MD 55 [facility] [id number] [place] [address] [email or web address] 02/18/2025 2:30 PM EDT Ancillary Procedure [facility] [address] [facility], 5th Floor, [address] [place] [address] Leni Gramajo, COMMERCIAL LINES SALES EXECUTIVE [address] [facility] [place] [address] [place] [address] [email or web address] 03/10/2025 10:40 AM EST Office Visit [facility] Rheumatology [address] [place] [address] Geraldine Jay MD, MPH [address] [facility], [address] [place] [address] [email or web address] documented as of this encounter Visit Diagnoses Not on filedocumented in this encounter Additional Health Concerns Infection Onset Date Last Indicated Resolved Time CoV-Risk 12/07/2023 12/07/2023 12/18/2023 1:22 AM EDT Assessment Noted Time PHQ-9 Depression Total Score: 3 05/24/19 22 2:24 PM EST documented as of this encounter Care Teams Qualitative Field Project Manager Relationship Specialty Start Date End Date Omid Jimenes MD [address] [place] [address] Dr COBB [address] [place] [address] PCP - General 10/28/13 Omid Jimenes MD [address] [place] [address] [place] [address] Historical LMR Provider 02/15/17 Emmanuel Lyman MD [address] [place] [address] [id number] [place] [address] [email or web address] Pilot Plant Operator Cardiology 11/22/20 Lizandro Guallpa MD [address] [place] [address] [id number] [place] [address] [email or web address] 03/03/21 Cameron Vital MD, MSc [address] [place] [address] [id number] [place] [address] [email or web address] Pilot Plant Operator Cardiology 03/03/21 documented as of this encounter Additional Source Comments The information contained in this document represents components of the legal health record. It is not the complete legal health record.[facility]
--- OUTSIDE RECORDS SUMMARY | 2025-01-21 12:10 | XMS_ITS | Encounter Summary ---
Author Organization [facility] Address [address] [facility] [address] [place] [address] Phone Care Team Providers Care Grinder Set Up Operator Name Role Phone Omid Jimenes MD Primary Care Provider Omid Jimenes MD Unavailable [phone] Emmanuel Lyman MD Unavailable [phone] Lizandro Guallpa MD Unavailable Cameron Vital MD, MSc Unavailable [phone] Reason for Referral * MRI/CAT Scan - Closed Specialty Diagnoses / Procedures Referred By Contac t Referred To Contact Radiology Diagnoses Spinal stenosis, lumbar region with neurogenic claudication Procedures MRI Lumbar Spine Hector Scherer MD Phone: tel: Referral ID Status Reason Start Date Expiration Date Visits Re quested Visits Authorized [id number] Closed 05/27/2021 05/27/2022 1 1 Encounter Details Date Type Department Care Team (Latest Contact Info) Description 05/27/2021 Transcribe Orders Virtual Department [address] [place] [address] Hector Scherer MD [address] [place] [address] Spinal stenosis, lumbar region with neurogenic claudication (Primary Dx) Social History Tobacco Use Types Packs/Day Years Used Date Smoking Tobacco: Former Cigarettes 1985 Smokeless Tobacco: Never Alcohol Use Standard [...] Info) Description 09/25/2024 Procedure Pass [facility] [place] US 55 [place] [address] 02/18/2025 1:00 PM EDT Appointment [facility] [place] US 55 [place] [address] Emmanuel Lyman MD 55 [facility] [id number] [place] [address] [email or web address] 02/18/2025 2:30 PM EDT Ancillary Procedure [facility] 32 [facility], 5th Floor, [address] [place] [address] Leni Gramajo, ELIS [address] [facility] 8 [place] [address] [email or web address] 03/10/2025 10:40 AM EST Office Visit [facility] Rheumatology [address] [place] [address] Geraldine Jay MD, MPH 22 [facility], [address] [place] [address] [email or web address] documented as of this encounter Results * MRI LUMBAR SPINE (NEURO) WITHOUT CONTRAST (06/08/2021 11:25 AM EST) Anatomical Region Laterality Modality L-spine Magnetic Resonan ce 06/08/2021 12:1 8 PM EST Impressions 06/08/2021 12:55 PM EST Advanced multilevel degenerative changes, overall mildly progressed from 2018. Severe neuroforaminal stenosis on the left at L4-L5 and on the left at L5-S1. No severe spinal canal stenosis. Narrative 06/08/2021 12:55 PM EST MRI LUMBAR SPINE (NEURO) WITHOUT CONTRAST TECHNIQUE: Multi-sequence, multi-planar MRI of the lumbar spine was performed without intravenous contrast. COMPARISON: Lumbar spine MRI on October 24, 2017. Abdomen/pelvis CT on December 09, 2018 FINDINGS: LUMBAR SPINE: Alignment and Vertebrae: Levocurvature of the lumbar spine. No compression fracture. Marrow: Advanced multilevel degenerative endplate changes Discs and Endplates: Desiccation changes of all included discs. Severe loss of disc height at L3-L4 and L4-L5. Mild loss of disc height at L2-L3. Schmorl nodes at multiple levels. Conus: Normal. Soft Tissues: No prevertebral edema. Other Findings: Partially seen hepatic cyst was better appreciated on the previous CT study from 2019. Findings by level: T12-L1: Combination of prominent posterior marginal osteophytes and bulging disc with superimposed right central disc protrusion contributes to mild spinal canal stenosis and mild left foraminal stenosis. No right foraminal stenosis. Findings have mildly progressed from 2018. L1-L2: Combination of posterior marginal osteophytes, bulging disc and facet arthropathy contributes to mild spinal canal stenosis. No foraminal stenosis. Findings have progressed from 2018. L2-L3: Combination of bulging disc and facet arthropathy contributes to mild left foraminal stenosis. No spinal canal or right foraminal stenosis. Findings are similar to 2018. L3-L4: Combination of bulging disc and facet arthropathy contributes to moderate right foraminal stenosis and moderate spinal canal stenosis. No left foraminal stenosis. Findings have mildly progressed from 2018. L4-L5: Combination of bulging disc and facet arthropathy contributes to moderate right and severe left foraminal stenosis and moderate spinal canal stenosis. Findings have mildly progressed from 2018. L5-S1: Combination of bulging disc and bilateral facet arthropathy contributes to severe left and moderate right foraminal stenosis. No spinal canal stenosis. Findings have progressed from 2018. Procedure Note Ofelia Real MD - 06/08/2021 MRI LUMBAR SPINE (NEURO) WITHOUT CONTRAST TECHNIQUE: Multi-sequence, multi-planar MRI of the lumbar spine wasperformed without intravenous contrast. COMPARISON: Lumbar spine MRI on October 24, 2017. Abdomen/pelvis CT on 2018 FINDINGS: LUMBAR SPINE: Alignment and Vertebrae: Levocurvature of the lumbar spine. No compressionfracture. Marrow: Advanced multilevel degenerative endplate changes Discs and Endplates: Desiccation changes of all included discs. Severeloss of disc height at L3-L4 and L4-L5. Mild loss of disc height at L2-L3.Schmorl nodes at multiple levels. Conus: Normal. Soft Tissues: No prevertebral edema. Other Findings: Partially seen hepatic cyst was better appreciated on theprevious CT study from 2019. Findings by level: T12-L1: Combination of prominent posterior marginal osteophytes andbulging disc with superimposed right central disc protrusion contributesto mild spinal canal stenosis and mild left foraminal stenosis. No rightforaminal stenosis. Findings have mildly progressed from 2018. L1-L2: Combination of posterior marginal osteophytes, bulging disc andfacet arthropathy contributes to mild spinal canal stenosis. No foraminalstenosis. Findings have progressed from 2018. L2-L3: Combination of bulging disc and facet arthropathy contributes tomild left foraminal stenosis. No spinal canal or right foraminal stenosis.Findings are similar to 2018. L3-L4: Combination of bulging disc and facet arthropathy contributes tomoderate right foraminal stenosis and moderate spinal canal stenosis. Noleft foraminal stenosis. Findings have mildly progressed from 2018. L4-L5: Combination of bulging disc and facet arthropathy contributes tomoderate right and severe left foraminal stenosis and moderate spinalcanal stenosis. Findings have mildly progressed from 2018. L5-S1: Combination of bulging disc and bilateral facet arthropathycontributes to severe left and moderate right foraminal stenosis. Nospinal canal stenosis. Findings have progressed from 2018. IMPRESSION: Advanced multilevel degenerative changes, overall mildly progressed [id number]. Severe neuroforaminal stenosis on the left at L4-L5 and on the leftat L5-S1. No severe spinal canal stenosis. Hector Dangelo Scherer MD IMG MR XSPECIALTY Final Result documented in this encounter Visit Diagnoses Diagnosis Spinal stenosis, lumbar region with neurogenic claudication- Primary Spinal stenosis, lumbar region with neurogenic claudication documented in this encounter Additional Health Concerns Infection Onset Date Last Indicated Resolved Time CoV-Risk 12/07/2023 12/07/2023 12/18/2023 1:22 AM EDT Assessment Noted Time PHQ-9 Depression Total Score: 3 05/24/19 22 2:24 PM EST documented as of this encounter Care Teams Grinder Set Up Operator Relationship Specialty Start Date End Date Omid Jimenes MD [address] [place] [address] [place] [address] PCP - General 10/28/13 Omid Jimenes MD [address] [place] [address] [place] [address] Historical LMR Provider 02/15/17 Emmanuel Lyman MD [address] [place] [address] [id number] [place] [address] [email or web address] Hand Coke Drawer Cardiology 11/22/20 Lizandro Guallpa MD [address] [place] [address] [id number] [place] [address] [email or web address] Rheumatology 03/03/21 Cameron Vital MD, MSc [address] [place] [address] [email or web address] Hand Coke Drawer Cardiology 03/03/21 documented as of this encounter Additional Source Comments The information contained in this document represents components of the legal health record. It is not the complete legal health record.[facility]
--- OUTSIDE RECORDS SUMMARY | 2025-01-21 12:10 | XMS_ITS | Encounter Summary ---
Author Organization [facility] Address [address] [facility] [address] [place] [address] Phone Care Team Providers Care Animal Geneticist Name Role Phone Omid Jimenes MD Primary Care Provider Omid Jimenes MD Unavailable [phone] Emmanuel Lyman MD Unavailable [phone] Lizandro Guallpa MD Unavailable Cameron Vital MD, MSc Unavailable [phone] Encounter Details Date Type Department Care Team (Late st Contact Info) Description 12/07/2023 Procedure Pass [facility], Ct Scan - [address] [id number] Social History Tobacco Use Types Packs/Day Years [...] with a working camera? Not on file Intimate Partner Violence Answer Date R ecorded Are you denied basic needs s uch as food, clothing, or medical care? No 12/06/2023 In the past 12 months have y ou been in a relationship with a person who hurts, threatens, or tries to control you? No 12/06/2023 Are you denied basic needs s uch as food, clothing, or medical care? No 12/06/2023 In the past 12 months have y ou been in a relationship with a person who hurts, threatens, or tries to control you? No 12/06/2023 Comments Unknown Sex and Gender Information Value [...] (Latest Contact Info) Description 09/25/2024 Procedure Pass [facility] [address] [place] [address] 02/18/2025 1:00 PM EDT Appointment [facility] [place] [address] [place] [address] Emmanuel Lyman MD [address] [facility] [id number] [place] [address] 02/18/2025 2:30 PM EDT Ancillary Procedure [facility] [address] [facility], 5th Floor, [address] [place] [address] Leni Gramajo, QUALITY CONTROL LAB TECH [address] [facility] [address] [place] [address] [email or web address] 03/10/2025 10:40 AM EST Office Visit [facility] Rheumatology [address] [place] [address] Geraldine Jay MD, MPH [address] [facility], [address] [place] [address] documented as of this encounter Visit Diagnoses Not on filedocumented in this encounter Additional Health Concerns Infection Onset Date Last Indicated Resolved Time CoV-Risk 12/07/2023 12/07/2023 12/18/2023 1:22 AM EDT Assessment Noted Time PHQ-9 Depression Total Score: 3 05/24/19 2:24 PM EST documented as of this encounter Care Teams Animal Geneticist Relationship Specialty Start Date End Date Omid Jimenes MD [address] [place] [address] Dr COBB [address] [place] [address] PCP - General 10/28/13 Omid Jimenes MD [address] [place] [address] Dr COBB [address] [place] [id number] Historical LMR Provider 02/15/17 Emmanuel Lyman MD [address] [place] [address] [id number] [place] [address] Microphone Operator Cardiology 11/22/20 Lizandro Guallpa MD [address] [place] [address] [id number] [place] [address] [email or web address] 03/03/21 Cameron Vital MD, MSc [address] [place] [address] [id number] [place] [address] [email or web address] Microphone Operator Cardiology 03/03/21 documented as of this encounter Additional Source Comments The information contained in this document represents components of the legal health record. It is not the complete legal health record.[facility]
--- OUTSIDE RECORDS SUMMARY | 2025-01-21 12:10 | XMS_ITS | Encounter Summary ---
Author Organization [facility] Address [address] [facility] [address] [place] [address] Phone Care Team Providers Care Senior Software Qa Engineer Name Role Phone Omid Jimenes MD Primary Care Provider Ramsey Ortez MD Unavailable [email or web address] Omid Jimenes MD Unavailable [phone] Emmanuel Lyman MD Unavailable [phone] Lizandro Guallpa MD Unavailable Cameron Vital MD, MSc Unavailable [phone] Encounter Details Date Type Department Care Team (Late st Contact Info) Description 01/12/2021 Procedure Pass [facility] Patient Relations Specialist [address] [facility], Floor 9, [address] [place] [address] Social History Tobacco Use Types Packs/Day [...] [facility] US [address] [place] [address] 02/18/2025 1:00 PM EDT Appointment [facility] US [address] [place] [address] Emmanuel L[facility] MD [address] [facility] [id number] [place] [address] [email or web address] 02/18/2025 2:30 PM EDT Ancillary Procedure [facility] [address] [facility], 5th Floor, [address] [place] [address] Leni Gramajo, BARIATRIC PROGRAM COORDINATOR 55 [facility] 8 [place] [address] [email or web address] 03/10/2025 10:40 AM EST Office Visit [facility] Rheumatology 22 [place] [address] Geraldine Jay MD, MPH [address] [facility], [address] [place] [address] [email or web address] documented as of this encounter Visit Diagnoses Not on filedocumented in this encounter Additional Health Concerns Infection Onset Date Last Indicated Resolved Time CoV-Risk 12/07/2023 12/07/2023 12/18/2023 1:22 AM EDT documented as of this encounter Care Teams Senior Software Qa Engineer Relationship Specialty Start Date End Date Omid Jimenes MD [address] [place] [address] Dr COBB [address] [place] [address] PCP - General 10/28/13 Ramsey Ortez MD [email or web address] Historical LMR Provider 02/15/17 03/02/21 Omid Jimenes MD [address] [place] [address] Dr COBB [address] [place] [address] Historical LMR Provider 02/15/17 Emmanuel Lyman MD [address] [place] [address] [id number] [address] [email or web address] Pit Hand Cardiology 11/22/20 Lizandro Guallpa MD [address] [place] [address] [id number] [place] [address] [email or web address] Rheumatology 03/03/21 Cameron Vital MD, MSc [address] [place], [place] [id number] [place] [address] [email or web address] Pit Hand Cardiology 03/03/21 documented as of this encounter Additional Source Comments The information contained in this document represents components of the legal health record. It is not the complete legal health record.[facility]
--- OUTSIDE RECORDS SUMMARY | 2025-01-21 12:10 | XMS_ITS | Encounter Summary ---
Author Organization [facility] Address [address] [facility] [address] [place] [address] Phone Care Team Providers Care Automotive Brake Technician Name Role Phone Omid Jimenes MD Primary Care Provider Omid Jimenes MD Unavailable [phone] Emmanuel Lyman MD Unavailable [phone] Lizandro Guallpa MD Unavailable Cameron Vital MD, MSc Unavailable [phone] Encounter Details Date Type Department Care Team (Late st Contact Info) Description 12/07/2023 Procedure Pass [facility], Ct Scan - [address] [id number] Social History Tobacco Use Types Packs/Day Years [...] (Latest Contact Info) Description 09/25/2024 Procedure Pass [facility] [place] [address] [place] [address] 02/18/2025 1:00 PM EDT Appointment [facility] [place] [address] [place] [address] Emmanuel Lyman MD [address] [facility] [id number] [place] [address] [email or web address] 02/18/2025 2:30 PM EDT Ancillary Procedure [facility] [address] [facility], 5th Floor, [address] [place] [address] Leni Gramajo, MECHANIC WELDER [address] [facility] [address] [place] [address] [email or web address] 03/10/2025 10:40 AM EST Office Visit [facility] Rheumatology [address] [place] [address] Geraldine Jay MD, MPH [address] [facility], [address] [place] [address] [email or web address] documented as of this encounter Visit Diagnoses Not on filedocumented in this encounter Additional Health Concerns Infection Onset Date Last Indicated Resolved Time CoV-Risk 12/07/2023 12/07/2023 12/18/2023 1:22 AM EDT Assessment Noted Time PHQ-9 Depression Total Score: 3 05/24/19 2:24 PM EST documented as of this encounter Care Teams Automotive Brake Technician Relationship Specialty Start Date End Date Omid Jimenes MD [address] [place] [address] Dr COBB [address] [place] [address] PCP - General 10/28/13 Omid Jimenes MD [address] [place] [address] Dr COBB [address] [place] [address] Historical LMR Provider 02/15/17 Emmanuel Lyman MD [address] [place] [address] [id number] [place] [address] [email or web address] Field Representative Cardiology 11/22/20 Lizandro Guallpa MD [address] [place] [address] [id number] [place] [address] [email or web address] Rheumatology 03/03/21 Cameron Vital MD, MSc [address] [place] [address] [id number] [place] [address] [email or web address] Field Representative Cardiology 03/03/21 documented as of this encounter Additional Source Comments The information contained in this document represents components of the legal health record. It is not the complete legal health record.[facility]
--- OUTSIDE RECORDS SUMMARY | 2025-01-21 12:10 | XMS_ITS | Clinical Summary ---
Author Organization [facility] Address [address] [place] [address] Phone Care Team Providers Care Makeup Editor Name Role Phone Omid Jimenes MD Primary Care Provider Omid Jimenes MD Unavailable [phone] Emmanuel Lyman MD Unavailable [phone] Lizandro Guallpa MD Unavailable Cameron Vital MD, MSc Unavailable [phone] Allergies Active Allergy Reactions Criticality Noted Date Comments Bacitracin Swelling 06/15/2017 Beef Containing Products GI Upset 11/01/2018 Doxycycline Hyclate Nausea and/or Vomiting 12/03/2023 Fish Derived GI Upset Medium 09/01/2014 Allergies:Sulfa, Emycin-nausea, vomiting, diarrhea Quinolones-leg muscles felt out of place Tobramycin and Bacitracin ungs-periorbital erythema and edema Dristan-periorbital edema Foods:Beef, don, trout, mushrooms, bubba, keke, pepper, spicy foods, soups, gravies, Nausea, vomiting, diarrhea Latex:No Keke (Zingiber Officinalis) 11/01/2018 Cephalexin 06/07/2020 Thinks it may have made rash worse Atorvastatin Other (See Comments) 10/30/2018 Cramps With high dose Melon Rash Low 11/01/2018 Metformin Diarrhea 12/09/2018 Other GI Upset 10/31/2018 Lactose intolerance Pravastatin Other (See Comments) 10/30/2018 cramps Quinolones 10/30/2018 Bubba Rash Low 11/01/2018 Sulfa (Sulfonamide Antibiotics) GI Upset 10/30/2018 Tobramycin Swelling 06/15/2017 Medications levothyroxine (SYNTHROID, LEVOTHROID) 75 MCG tablet Take 1 tablet by mouth daily. q Active bepotastine besilate (BEPREVE) 1.5 % Drop 2 (two) times a day. Active azelastine-flut icasone (DYMISTA) 137-50 mcg/spray [place] 1 spray 2 (two) times a day. Active atorvastatin (LIPITOR) 20 MG tablet Take 20 mg by mouth daily. Active potassium chloride SA (K-DUR,KLOR-CON ) 10 MEQ ER tablet Take 20 mEq by mouth 2 (two) times a day. Acti ve fluticasone (FLOVENT HFA) 220 mcg/actuation inhaler Inhale 1 puff into the lungs 2 (two) times a day. Active tiotropium bromide 1.25 mcg/actuation Mist Inhale 1 Inhaler into the lungs daily. Active albuterol 2.5 mg /3 mL (0.083 %) nebulizer solution Take 2.5 mg by nebulization every 6 (six) hours as needed. Active albuterol 90 mcg/actuation inhaler Inhale 2 puffs into the lungs every 6 (six) hours as needed for wheezing. Acti ve insulin glargine (LANTUS) 100 unit/mL injection vial Inject 60 Units under the skin 2 (two) times a day. 11/09/19 Active Additional Information Patient taking differently: 90 UnitsSubcutaneous 2 times daily,60-70 units BID, Reported on 03/19/2024 acetaminophen (TYLENOL) 325 mg tablet Take 2 tablets (650 mg total) by mouth every 6 (six) hours as needed for mild pain or fever. 0 11/09/19 19 Active omeprazole (PRILOSEC) 20 MG capsule Take 20 mg by mouth daily. Active prochlorperazin e (COMPAZINE) 5 MG tablet Take 1 tablet (5 mg total) by mouth every 6 (six) hours as needed for nausea. 12/28/19 19 Active polyethylene glycol (MIRALAX) 17 gram/dose powder Take 17 g by mouth daily as needed. 01/12/20 19 Active EPINEPHrine 0.3 mg/0.3 mL auto-injector Inject 0.3 mg into the muscle as needed for anaphylaxis. 01/12/20 Active vancomycin (VANCOCIN) 125 MG capsule Take 125 mg by mouth. For 3 days prior to dental procedure Active Saccharomyces boulardii (FLORASTOR) 250 mg capsule Take 250 mg by mouth 2 (two) times a day. Acti ve traZODone (DESYREL) 50 MG tablet Take 50 mg by mouth nightly at bedtime. Takes prn Active mepolizumab (NUCALA) 100 mg subcutaneous injection Inject 100 mg under the skin every 28 days. For allergies Activ e cetirizine (ZYRTEC) 10 MG tablet Take 10 mg by mouth 2 (two) times a day. Acti ve cholecalciferol (VITAMIN D3) 25 MCG (1,000 unit) tablet Take 1,000 Units by mouth daily. Active ferrous sulfate 325 mg (65 mg [place] iron) tablet Take 325 mg by mouth daily with breakfast. Active aspirin 81 mg chewable tablet Take 81 mg by mouth as needed. Active amoxicillin (AMOXIL) 500 MG capsule Take 4 capsules (2,000 mg total) by mouth as directed. Take one hour prior to dental work. 12 capsule 3 03/17/20 21 Active HYDROcodone-marisel taminophen (NORCO) 7.5-325 mg per tablet Take 1 tablet by mouth every 8 (eight) hours as needed. Partial fill ok 90 tablet 05/20/19 22 Active furosemide (LASIX) 80 MG tablet Take 1 tablet (80 mg total) by mouth 2 (two) times a day. 180 tablet 3 09/09/19 22 Active DULoxetine (CYMBALTA) 60 MG capsule Take 1 capsule (60 mg total) by mouth daily. 90 capsule 1 09/20/19 22 Active gabapentin (NEURONTIN) 400 MG capsuleIndicati ons:Other chronic pain Take 1 capsule (400 mg total) by mouth nightly at bedtime. 90 capsule 3 12/21/19 22 Active allopurinol (ZYLOPRIM) 100 MG tabletIndicatio ns:Idiopathic chronic gout of multiple sites without tophus Take 2 tablets (200 mg total) by mouth daily. 180 tablet 3 12/21/19 22 Active gabapentin (NEURONTIN) 100 MG capsule Take one cap po in AM 30 capsule 1 02/22/20 22 Active colchicine (COLCRYS) 0.6 mg tabletIndicatio ns:04/20/20 patient took 3 tabs 2 hours apart each tab Take at the first sign of gout attack as follows: 2 tabs together then 1 more 1 hour later then 1 tab twice daily until gout sxs resolve Indications: 04/20/20 patient took 3 tabs 2 hours apart each tab 30 tablet 10/17/19 23 Active tirzepatide (MOUNJARO) 5 mg/0.5 mL PnIj Inject 5 mg under the skin. Active valsartan (DIOVAN) 40 MG tablet Take 1 tablet (40 mg total) by mouth daily. 90 tablet 3 03/19/20 24 Active Active Problems Problem Noted Date Diagnosed Date Positive KILEY (antinuclear antibody) 12/03/2023 Overview (12/03/2023): 1:640 ho; obtained by [facility] hospitalist 2019 for w/u of multiple joint pain / elevated inflammatory markers Assessment & Plan (12/03/2023 3:42 PM EDT): Current clinical picture not concerning for underlying connective tissue disease; no clear indication for full ENAs Personal history of gout 10/16/2022 Assessment & Plan (12/03/2023 9:18 AM EDT): No recent acute gout; compliant with allopurinol 200 mg daily. Most recent serum uric acid available for my review today is from 09/2022 and is at goal (4.5). I have requested updated labs for my review prior to allopurinol refill; will adjust allopurinol dose if needed to maintain serum uric acid <6.0 mg/dL. Assessment & Plan (10/16/2022 11:30 AM EDT): No recent acute gout; compliant with allopurinol 200 mg daily and most recent serum uric acid nearly at goal (6.3). Updated labs ordered today. Obese 09/12/2021 Assessment & Plan (02/16/2022 1:11 PM EDT): 01/2022 Continued ongoing weight loss efforts. Assessment & Plan (09/12/2021 9:12 AM EDT): 08/2021 Offered referral to weight center again. Pt wishes to f/u w/ PCP. Left bundle branch block 04/18/2021 Assessment & Plan (04/18/2021 3:48 PM EST): LBBB on ECG. For completeness, we will send an MCOT for 1 month. Aortic stenosis, severe 03/17/2021 Assessment & Plan (04/18/2021 3:47 PM EST): Severe symptomatic with exertional dyspnea. -Underwent a TAVR- was enrolled in the Acurate trial and randomized to a size small Acurate neo2 THV. -04/14/2021 TTE: Interpretation Summary LV with normal cavity size, mild symmetric LVH, and normal systolic function, LVEF 71%. RV with normal cavity size and systolic function. Dilated LA. Well-seated TAVR. Peak and mean gradients, 30 and 15 mmHg, respectively. No PVL appreciated. Echo Findings General Findings The image quality was fair (3). s/p TAVR 02/28/17: small Acurate Gt 2 valve. Left Ventricle Left ventricular cavity size is normal and the left ventricular wall thickness is increased. There is mild symmetric left ventricular hypertrophy. Left ventricular systolic function is normal. There are no segmental left ventricular wall motion abnormalities noted. The estimated ejection fraction is 71% (Normal 50- 75%). The left ventricular ejection fraction was measured by the single dimension method. Right Ventricle The right ventricular size is normal. The right ventricular systolic function is normal. Left Atrium The left atrium is dilated. The LA volume is 82 mL. The LA volume index is 39.05 mL/m2 (normal indexed value is 16-34 mL/m2). Right Atrium The right atrium is normal in size. The right atrial superior- inferior dimension measures 57 mm (indexed value 27 mm/m2) (normal index range 19-30 mm/m2). The right atrial medial-lateral dimension measures 41 mm (indexed value 20 mm/m2) (normal index range 13-25 mm/m2). The IVC is normal in size (2.1cm or less). The IVC demonstrates normal collapse with inspiration which is consistent with normal RA pressure. Aortic Valve There is a stent mounted bioprosthetic valve. (per report, 23mm Acurate Neo2 valve). The peak gradient is 30 mmHg. The mean gradient is 15 mmHg. The prosthetic valve is in a well seated position. Leaflets are not well visualized. There is no evidence of a paravalvular leak by Doppler. The LVOT velocity is 1.1 m/s. The peak velocity was obtained from the apical 3 chamber view. There is no evidence of aortic regurgitation by color and spectral Doppler. Mitral Valve There is posterior mitral annular calcification. There is no evidence of mitral valve prolapse. There is trace mitral regurgitation detected by spectral and color Doppler. Tricuspid Valve There is evidence of trace tricuspid regurgitation by color and spectral Doppler. The RV systolic pressure was estimated from the peak TV regurgitant velocity (assuming an RA pressure of 10 mmHg). The estimated RV systolic pressure is 37 mmHg. Pulmonic Valve There is evidence of trace pulmonary regurgitation by color and spectral Doppler. Pericardium There is no evidence of pericardial effusion. There is evidence of epicardial fat. Comparison Findings Compared to a prior TTE from 03/17/2021 Trace PVL no longer appreciated. Transaortic gradients similar, as are the remainder of the findings. - ASA 81 mg daily indefinitely - Plavix 75 mg daily-can stop now - SBE prophylaxis lifelong, pt has a PCN allergy listed but she has been taking Amoxicillin prior to her dental visits for years. - Would benefit from outpatient cardiac rehab once cleared by local nurse head GERD (gastroesophageal reflux disease) Assessment & Plan (09/12/2021 9:14 AM EDT): 08/2021 Will f/u w/ PCP re: awareness after eating symptoms. Assessment & Plan (03/16/2021 6:19 PM EST): Continue Omeprazole Severe aortic stenosis 08/29/2020 Assessment & Plan (02/16/2022 1:26 PM EDT): Severe symptomatic with exertional dyspnea. -Underwent a TAVR- was enrolled in the Acurate trial and randomized to a size small Acurate neo2 THV. -04/14/2021 TTE: Interpretation Summary LV with normal cavity size, mild symmetric LVH, and normal systolic function, LVEF 71%. RV with normal cavity size and systolic function. Dilated LA. Well-seated TAVR. Peak and mean gradients, 30 and 15 mmHg, respectively. No PVL appreciated. Echo Findings General Findings The image quality was fair (3). s/p TAVR 02/28/17: small Acurate Gt 2 valve. Left Ventricle Left ventricular cavity size is normal and the left ventricular wall thickness is increased. There is mild symmetric left ventricular hypertrophy. Left ventricular systolic function is normal. There are no segmental left ventricular wall motion abnormalities noted. The estimated ejection fraction is 71% (Normal 50- 75%). The left ventricular ejection fraction was measured by the single dimension method. Right Ventricle The right ventricular size is normal. The right ventricular systolic function is normal. Left Atrium The left atrium is dilated. The LA volume is 82 mL. The LA volume index is 39.05 mL/m2 (normal indexed value is 16-34 mL/m2). Right Atrium The right atrium is normal in size. The right atrial superior- inferior dimension measures 57 mm (indexed value 27 mm/m2) (normal index range 19-30 mm/m2). The right atrial medial-lateral dimension measures 41 mm (indexed value 20 mm/m2) (normal index range 13-25 mm/m2). The IVC is normal in size (2.1cm or less). The IVC demonstrates normal collapse with inspiration which is consistent with normal RA pressure. Aortic Valve There is a stent mounted bioprosthetic valve. (per report, 23mm Acurate Neo2 valve). The peak gradient is 30 mmHg. The mean gradient is 15 mmHg. The prosthetic valve is in a well seated position. Leaflets are not well visualized. There is no evidence of a paravalvular leak by Doppler. The LVOT velocity is 1.1 m/s. The peak velocity was obtained from the apical 3 chamber view. There is no evidence of aortic regurgitation by color and spectral Doppler. Mitral Valve There is posterior mitral annular calcification. There is no evidence of mitral valve prolapse. There is trace mitral regurgitation detected by spectral and color Doppler. Tricuspid Valve There is evidence of trace tricuspid regurgitation by color and spectral Doppler. The RV systolic pressure was estimated from the peak TV regurgitant velocity (assuming an RA pressure of 10 mmHg). The estimated RV systolic pressure is 37 mmHg. Pulmonic Valve There is evidence of trace pulmonary regurgitation by color and spectral Doppler. Pericardium There is no evidence of pericardial effusion. There is evidence of epicardial fat. Comparison Findings Compared to a prior TTE from 03/17/2021 Trace PVL no longer appreciated. Transaortic gradients similar, as are the remainder of the findings. -08/2021 TTE: Interpretation Summary Normal biventricular systolic function, EF ~66% Dilated left atrium TAVR valve with peak gradient 20 mmHg, mean gradient 12 mmHg, trivial paravalvular leak Echo Findings General Findings The study was technically difficult (4). S/p TAVR 03/16/2021 (23 mm Accurate Gt 2) Left Ventricle Left ventricular cavity size is normal and the left ventricular wall thickness is increased. There is left ventricular hypertrophy with an upper septal predominance. Left ventricular systolic function is normal. There are no segmental left ventricular wall motion abnormalities noted. The estimated ejection fraction is 66% (Normal 50-75%). The left ventricular ejection fraction was measured by the single dimension method. Right Ventricle The right ventricular size is normal. The right ventricular systolic function is normal. Left Atrium The left atrium is dilated. The LA volume is 89 mL. The LA volume index is 41.4 mL/m2 (normal indexed value is 16-34 mL/m2). Right Atrium The right atrium is normal in size. Aortic Valve There is a stent mounted bioprosthetic valve. The peak gradient is 20 mmHg. The mean gradient is 12 mmHg. The prosthetic leaflets are not well visualized. The prosthetic valve is in a well seated position. There is a trivial paravalvular leak located anteriorly. The LVOT velocity is 1.2 m/s. The peak velocity was obtained from the apical 3 chamber view. There is evidence of trace aortic regurgitation by color and spectral Doppler. Mitral Valve There is posterior mitral annular calcification. There is no evidence of mitral valve prolapse. There is trace mitral regurgitation detected by spectral and color Doppler. There is thickening of chordae tendinae. Tricuspid Valve There is evidence of trace tricuspid regurgitation by color and spectral Doppler. There is an insufficient tricuspid regurgitation Doppler profile to calculate a right ventricular systolic pressure. Pulmonic Valve There is evidence of trace pulmonary regurgitation by color and spectral Doppler. Pericardium There is no evidence of pericardial effusion. There is evidence of epicardial fat. Comparison Findings Compared to a prior report from 04/14/2021, a trivial paravalvular leak is appreciated. The gradients across the TAVR valve are slightly lower but may be due to variation between studies. The other findings are similar. -01/2022 TTE: pending. 01/2022 - ASA 81 mg daily indefinitely - SBE prophylaxis lifelong, pt has a PCN allergy listed but she has been taking Amoxicillin prior to her dental visits for years. - Would benefit from outpatient cardiac rehab once cleared by local nurse head - F/u per ACURATE protocol - Longitudinal f/u with Dr. Vital Assessment & Plan (09/12/2021 9:14 AM EDT): Severe symptomatic with exertional dyspnea. -Underwent a TAVR- was enrolled in the Acurate trial and randomized to a size small Acurate neo2 THV. -04/14/2021 TTE: Interpretation Summary LV with normal cavity size, mild symmetric LVH, and normal systolic function, LVEF 71%. RV with normal cavity size and systolic function. Dilated LA. Well-seated TAVR. Peak and mean gradients, 30 and 15 mmHg, respectively. No PVL appreciated. Echo Findings General Findings The image quality was fair (3). s/p TAVR 02/28/17: small Acurate Gt 2 valve. Left Ventricle Left ventricular cavity size is normal and the left ventricular wall thickness is increased. There is mild symmetric left ventricular hypertrophy. Left ventricular systolic function is normal. There are no segmental left ventricular wall motion abnormalities noted. The estimated ejection fraction is 71% (Normal 50- 75%). The left ventricular ejection fraction was measured by the single dimension method. Right Ventricle The right ventricular size is normal. The right ventricular systolic function is normal. Left Atrium The left atrium is dilated. The LA volume is 82 mL. The LA volume index is 39.05 mL/m2 (normal indexed value is 16-34 mL/m2). Right Atrium The right atrium is normal in size. The right atrial superior- inferior dimension measures 57 mm (indexed value 27 mm/m2) (normal index range 19-30 mm/m2). The right atrial medial-lateral dimension measures 41 mm (indexed value 20 mm/m2) (normal index range 13-25 mm/m2). The IVC is normal in size (2.1cm or less). The IVC demonstrates normal collapse with inspiration which is consistent with normal RA pressure. Aortic Valve There is a stent mounted bioprosthetic valve. (per report, 23mm Acurate Neo2 valve). The peak gradient is 30 mmHg. The mean gradient is 15 mmHg. The prosthetic valve is in a well seated position. Leaflets are not well visualized. There is no evidence of a paravalvular leak by Doppler. The LVOT velocity is 1.1 m/s. The peak velocity was obtained from the apical 3 chamber view. There is no evidence of aortic regurgitation by color and spectral Doppler. Mitral Valve There is posterior mitral annular calcification. There is no evidence of mitral valve prolapse. There is trace mitral regurgitation detected by spectral and color Doppler. Tricuspid Valve There is evidence of trace tricuspid regurgitation by color and spectral Doppler. The RV systolic pressure was estimated from the peak TV regurgitant velocity (assuming an RA pressure of 10 mmHg). The estimated RV systolic pressure is 37 mmHg. Pulmonic Valve There is evidence of trace pulmonary regurgitation by color and spectral Doppler. Pericardium There is no evidence of pericardial effusion. There is evidence of epicardial fat. Comparison Findings Compared to a prior TTE from 03/17/2021 Trace PVL no longer appreciated. Transaortic gradients similar, as are the remainder of the findings. -08/2021 TTE: Interpretation Summary Normal biventricular systolic function, EF ~66% Dilated left atrium TAVR valve with peak gradient 20 mmHg, mean gradient 12 mmHg, trivial paravalvular leak Echo Findings General Findings The study was technically difficult (4). S/p TAVR 03/16/2021 (23 mm Accurate Gt 2) Left Ventricle Left ventricular cavity size is normal and the left ventricular wall thickness is increased. There is left ventricular hypertrophy with an upper septal predominance. Left ventricular systolic function is normal. There are no segmental left ventricular wall motion abnormalities noted. The estimated ejection fraction is 66% (Normal 50-75%). The left ventricular ejection fraction was measured by the single dimension method. Right Ventricle The right ventricular size is normal. The right ventricular systolic function is normal. Left Atrium The left atrium is dilated. The LA volume is 89 mL. The LA volume index is 41.4 mL/m2 (normal indexed value is 16-34 mL/m2). Right Atrium The right atrium is normal in size. Aortic Valve There is a stent mounted bioprosthetic valve. The peak gradient is 20 mmHg. The mean gradient is 12 mmHg. The prosthetic leaflets are not well visualized. The prosthetic valve is in a well seated position. There is a trivial paravalvular leak located anteriorly. The LVOT velocity is 1.2 m/s. The peak velocity was obtained from the apical 3 chamber view. There is evidence of trace aortic regurgitation by color and spectral Doppler. Mitral Valve There is posterior mitral annular calcification. There is no evidence of mitral valve prolapse. There is trace mitral regurgitation detected by spectral and color Doppler. There is thickening of chordae tendinae. Tricuspid Valve There is evidence of trace tricuspid regurgitation by color and spectral Doppler. There is an insufficient tricuspid regurgitation Doppler profile to calculate a right ventricular systolic pressure. Pulmonic Valve There is evidence of trace pulmonary regurgitation by color and spectral Doppler. Pericardium There is no evidence of pericardial effusion. There is evidence of epicardial fat. Comparison Findings Compared to a prior report from 04/14/2021, a trivial paravalvular leak is appreciated. The gradients across the TAVR valve are slightly lower but may be due to variation between studies. The other findings are similar. 08/2021 - ASA 81 mg daily indefinitely - SBE prophylaxis lifelong, pt has a PCN allergy listed but she has been taking Amoxicillin prior to her dental visits for years. - Would benefit from outpatient cardiac rehab once cleared by local nurse head - Will f/u in 6 months w/ a TTE Assessment & Plan (03/16/2021 6:37 PM EST): Severe symptomatic with exertional dyspnea. Today underwent a TAVR- was enrolled in the Acurate trial and randomized to a size small Acurate neo2 V. - Monitor access sites closely. - ASA 81 mg daily indefinitely - Plavix 75 mg daily x 6 months - TTE in AM: however, for the Acurate trial the TTE should be on the day of discharge, so if it looks like the patient will stay another night, please defer TTE until Sunday. - EKG on day of discharge - CK tonight and in AM - SBE prophylaxis lifelong, pt has a PCN allergy listed but she has been taking Amoxicillin prior to her dental visits for years. - Return in one month for an echocardiogram and appointment with Dr. Lyman (his office will schedule). - Would benefit from outpatient cardiac rehab once cleared by local nurse head Assessment & Plan (03/15/2021 5:17 PM EST): 75 yo female with HTN, DM2, morbid obesity, asthma, CLEVE on CPAP, and who has been followed with surveillance TTEs by her primary nurse head, Dr. Matute. Over the past 18 months, she notes progressively worsening SOB and episode of HF requiring diuresis without improvement of symptoms. She was evaluated by [facility] [place] consideration of TAVR and presents today for TAVR. TAVR w/u: - TTE 03/03/2021: EF 62% with symmetric LVH, no WMA. RV normal size/systolic function. LA dilated. Severe with peak/mean gradients 74/48 mmHg. LVOT velocity 1 m/s. 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 Mild MR, trace TR - PFTs 11/18/2020 - carotid duplex US 11/18/2020 - TAVR CTA 11/18/2020 - RHC/Coronary angiography 01/12/2021: RA 4, RV 40/4, PA 40/13/26, PCWP 15, CO/CI 5.0/2.4 (Tita, assumed). No evidence of angiography obstructive CAD. -plan for repeat CBC on arrival (elevated on pre procedure labs 12.37). UA borderline but remains asymptomatic. Assessment & Plan (01/17/2021 4:34 PM EDT): Reviewed echocardiogram as well as cardiology notes. Her case will be discussed next month in conference and then she will have her surgery. She is hemodynamically stable. Assessment & Plan (01/12/2021 11:42 AM EDT): Followed by local nurse head for several years for progressive aortic stenosis with serial TTEs. Over the past 1-2 years, she has noted increased LE edema and dyspnea which has become progressively worse. TTE 11/18/2020 showed EF 68% with no WMA, Normal RV systolic function. 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 Trace-mild TR, RVSP 51 mmHg. She was consulted [place] [facility] [facility] [place]AV[place]. She presents today for RHC/coronary angiography with possible intervention. TAVR w/u completed: TTE 11/18 TAVR CTA 11/18 PFTs 11/18 Carotid Duplex US 11/[address] Mercedes-> recommends TAVR Dental clearance in chart -once prerequisite workup is complete, will present patient's clinical case and above data at the multidisciplinary valve heart team meeting, where a plan will be formulated among surgical, interventional, imaging, and advanced care practitioner team members. Chronic diastolic heart failure 08/29/2020 Assessment & Plan (02/16/2022 1:27 PM EDT): 01/2022 Will continue to work with primary team. Recommend to remain on current lasix dose. COPD with asthma 08/29/2020 Assessment & Plan (03/16/2021 6:19 PM EST): Continue Albuterol prn, Spiriva, Flovent, Dymista Eczema 04/26/2020 Assessment & Plan (04/26/2020 12:19 PM EST): After full discussion risk and benefits about continuing current medication at unchanged doses, she will start 10 mg of prednisone twice daily with a reduction of 5 mg each day till off. Follow-up phone call in 5 days. Cellulitis of lower extremity 04/21/2020 Assessment & Plan (04/21/2020 1:51 PM EST): Most likely etiology is cellulitis. She will be started on cephalexin 500 with a grams 4 times daily. Follow-up will be in 5 days. Elevation, warmth, and good oral hydration. Hypertension 02/19/2019 Assessment & Plan (02/16/2022 1:10 PM EDT): 01/2022 Well controlled today. Disorder of rotator cuff, right 02/19/2019 Overview (10/16/2022): Plain films 2018 1. Elevation of the right humeral head [...] the glenohumeral joint. Evidence of calcific tendinitis. Assessment & Plan (10/16/2022 11:28 AM EDT): Primary mgmt has been through [facility]; patient states plan is to address shoulder arthritis after upcoming spine evaluation. Assessment & Plan (06/07/2020 1:24 PM EST): Painful impingement of both right and left shoulder secondary to chronic rotator cuff tears, as well as glenohumeral and acromioclavicular osteoarthropathy is treated with periodic intra-articular steroids by her orthopedic shoulder expert but as I explained to her today we should avoid administration of glucocorticoids while she is in a tenuous state of compensated congestive heart failure. Assessment & Plan (03/11/2019 9:07 AM EST): She has a consultation pending with Dr. Cotter for evaluation of chronic recurrent impingement, acromioclavicular hypertrophy, and substantial rotator cuff tear. In the meantime she will try to live around the pain by avoiding over the head motions. Acute flares may be treated with intra-articular steroids and she may continue to use hydrocodone as needed. MRI of shoulder reviewed with her. Assessment & Plan (02/19/2019 3:31 PM EDT): X-ray will be done today. Hydrocodone will be continued. Gabapentin will continue. Cymbalta will be increased from 30 mg daily to 40 mg daily. Arthritis of both glenohumeral joints 02/19/2019 Assessment & Plan (03/11/2021 5:55 PM EST): She is not a surgical candidate at this time . Once recovered from her upcoming surgery, GH or Subacromial injections may be performed if needed Assessment & Plan (07/01/2019 12:13 PM EST): Combination of glenohumeral and acromioclavicular osteoarthritis and significant rotator cuff tears. I reviewed the consultation from Dr. Cotter. When patient is ready and able she would consider consultation in [place] right now she feels that the pain is under control and she is able to live around the restriction in range of motion due to strategies taught to her by physical therapy. Assessment & Plan (04/08/2019 5:34 PM EST): Chronic rotator cuff tears and glenohumeral osteoarthritis complicate the case and give bilateral shoulder pain and weakness. I do feel some of the weakness may be secondary to some chronic cervical radiculitis as well. I did refer her to Dr. Cotter. We will see what he decides on further diagnostics and potential surgical intervention. Assessment & Plan (02/19/2019 3:31 PM EDT): Screen will be done today and I will call her with the results. Chest pain 12/26/2018 Assessment & Plan (12/26/2018 8:23 AM EDT): Patient with brief substernal chest pressure earlier this evening peer no history of known coronary artery disease but does have known aortic stenosis. Enzymes reassuring EKG unchanged. May have had some mild hypovolemia from diarrhea and overdiuresis. If persist will get cardiology consult. Hyperkalemia 12/11/2018 Assessment & Plan (12/11/2018 7:24 PM EDT): Likely multifactorial secondary to history of Lasix use and GI loss. -We will give potassium 40 mEq p.o. twice a day -Repeat labs in a.m. Ileus 12/09/2018 Assessment & Plan (12/11/2018 7:20 PM EDT): Patient presented with acute abdominal pain with [...] worsening abdominal pain, consider discharge December 12. Chronic pain 11/04/2018 Overview (12/03/2023): Follows with [facility]; known l-spine stenosis s/p bl TKA Assessment & Plan (12/03/2023 3:47 PM EDT): Polyarticular OA and predominantly l-spine pain w/o objective e/o underlying or co-morbid inflammatory arthritis. OK to continue current doses of gabapentin and duloxetine pending confirmation of adequate renal function and normal LFTs. D/w patient that I do not see people who do not have active inflammatory arthritis on a frequent basis, even if non-inflammatory arthritis is severe, as there is no rheumatology-specific intervention available. However, I am happy to re-evaluate sooner than planned one year f/u if there is a clinically significant change in peripheral joint sxs. Assessment & Plan (10/16/2022 11:31 AM EDT): Polyarticular OA / known spinal stenosis; following with [facility]. No significant symptomatic AEs with current regimen of duloxetine plus gabapentin (hydrocodone rx'd by pain mgmt). No clear indication for ongoing rheumatology-specific mgmt in absence of underlying or co-morbid inflammatory arthritis. Assessment & Plan (03/11/2021 5:57 PM EST): 75 yo female with multiple medical problems including severe aortic stenosis, A fib, HTN, CHF, COPD, DM followed by rheumatology for OA< spinal stenosis,gout and chronic pain She has been on Hydrocodone for pain control and presents today to discuss pain management I agreed to refill her medication over the next 2 months while she is recovering from her upcoming Aortic valve surgery. Long discussion (30 min + on risks /benefits of chronic opioids) with patient I informed her that based on the current guidelines and substantial risks of adverse effects given her multiple medical issues I will not manage her chronic opioids going forward . I will refer her to a Pain Management Clinic for closer monitoring when she comes back for follow up. She agreed with this plan . Assessment & Plan (12/26/2018 8:25 AM EDT): To the patient's PRN Tylenol and oxycodone. 1 of her most recent admissions was due to severe constipation from initiation of MS Contin. Bowel regimen is to be adjusted. Assessment & Plan (12/11/2018 7:22 PM EDT): She has been taking scheduled oxycodone every 6 hours during her acute gout flare which has contributed significantly to her constipation. Narcotics held. -Tylenol available as needed -Resume gabapentin at nighttime. Assessment & Plan (11/06/2018 4:50 PM EDT): Multifactorial, highly related to her osteoarthritis and probably her disability from deconditioning. Now on chronic narcotics without much improvement in pain or weakness. Needs to move onto residential facility for PT OT. Tracheitis 11/03/2018 Assessment & Plan (11/05/2018 2:55 PM EDT): Stop doxycycline, she has been on it since May. Idiopathic gout of multiple sites 11/02/2018 Assessment & Plan (12/21/2021 9:20 PM EDT): No gout like flares Continue allopurinol, monitoring labs today Assessment & Plan (03/11/2021 5:53 PM EST): Hx of gout probably due to CKD and use of diuretic. On allopurinol without any recent gout flares. Last uric acid Was 6.7 in 10/2020 Will continue current therapy with monitoring of uric acid q 6 months. Pt reminded not to miss doses to prevent flares Assessment & Plan (01/17/2021 4:34 PM EDT): Therapeutic uric acid level and no history of gout or nephrolithiasis. Low purine diet, efforts at weight reduction and maintaining allopurinol. May use colchicine as directed as needed for acute flares. Discussed strategies for maintaining low purine diet. Admission on 01/12/2021, Discharged on 01/12/2021 Component Date Value Ref Range Status WBC 01/12/2021 9.29 4.5 - 11.0 K/uL Final RBC 01/12/2021 3.64* 4.00 - 5.20 M/uL Final HGB 01/12/2021 10.8* 12.0 - 16.0 g/dL Final HCT 01/12/2021 34.2* 36.0 - 46.0 % Final PLT 01/12/2021 317 150 - 400 K/uL Final MCV 01/12/2021 94.0 80.0 - 100.0 fL Final MCH 01/12/2021 29.7 26.0 - 34.0 pg Final MCHC 01/12/2021 31.6 31.0 - 37.0 g/dL Final RDW 01/12/2021 17.5* 11.5 - 14.5 % Final MPV 01/12/2021 9.9 8.4 - 12.0 fl Final NRBC 01/12/2021 0.00 0 - 0.20 /100 WBCs Final ABSOLUTE NRBC 01/12/2021 0.00 0 - 0.01 K/uL Final DIFF METHOD 01/12/2021 Auto Final NEUTS 01/12/2021 74.5* 40 - 70 % Final LYMPHS 01/12/2021 16.6* 22 - 44 % Final MONOS 01/12/2021 6.5 4 - 11 % Final EOS 01/12/2021 1.7 0 - 8 % Final BASOS 01/12/2021 0.4 0 - 3 % Final % IMMATURE GRANS 01/12/2021 0.3 0.0 - 0.9 % Final ABSOLUTE NEUTS 01/12/2021 6.92 1.8 - 7.7 K/uL Final ABSOLUTE LYMPHS 01/12/2021 1.54 1.0 - 4.8 K/uL Final ABSOLUTE MONOS 01/12/2021 0.60 0.2 - 1.2 K/uL Final ABSOLUTE EOS 01/12/2021 0.16 0.0 - 0.9 K/uL Final ABSOLUTE BASOS 01/12/2021 0.04 0.0 - 0.3 K/uL Final ABS IMMATURE GRANS 01/12/2021 0.03 0.00 - 0.10 K/uL Final WHOLE BLOOD GLUCOSE 01/12/2021 182* 70 - 110 mg/dL Final ACTIVATED CLOT TIME 01/12/2021 175* 90 - 130 sec Final Hospital Outpatient Visit on 01/10/2021 Component Date Value Ref Range Status SODIUM 01/10/2021 139 133 - 146 mmol/L Final CHLORIDE 01/10/2021 96 96 - 108 mmol/L Final POTASSIUM 01/10/2021 3.9 3.3 - 5.1 mmol/L Final CO2 01/10/2021 32 21 - 35 mmol/L Final BUN 01/10/2021 21* 6 - 19 mg/dL Final CREATININE 01/10/2021 1.00 0.5 - 1.5 mg/dL Final GLUCOSE 01/10/2021 265* 70 - 99 mg/dL Final CALCIUM 01/10/2021 9.8 8.4 - 10.3 mg/dL Final EGFR 01/10/2021 55* >59 mL/min/1.73m2 Final Estimated glomerular filtration rate calculated using the CKD-EPI equation. ANION GAP 01/10/2021 15 10 - 20 mmol/L Final Appointment on 01/10/2021 Component Date Value Ref Range Status COVID-19 Comment 01/10/202115175423 Final COVID Testing Status 01/10/2021 [place] [facility] [place] [facility] Final Specimen Source/Description 01/10/2021 NASAL Final SARS-CoV 2 (COVID-19) PCR 01/10/2021 Not Detected Not Detected Final Comment: Negative results do not preclude SARS-CoV-2 infection and should not be used as the sole basis for patient management decisions. Negative results must be combined with clinical observations, patient history, and epidemiological information. Optimum specimen types and timing for peak viral levels during infection by SARS-CoV-2 have not been determined. Collection of multiple specimens from the same patient may be necessary to detect the virus. This test has been authorized by the FDA under an Emergency Use Authorization (EUA) for use by authorized laboratories. Hospital Outpatient Visit on 11/18/2020 Component Date Value Ref Range Status Creatinine 11/18/2020 1.20 0.60 - 1.50 mg/dl Final EGFR 11/18/2020 44* >59 mL/min/1.73m2 Final Estimated glomerular filtration rate calculated using the CKD-EPI equation. Hospital Outpatient Visit on 11/18/2020 Component Date Value Ref Range Status Body Surface Area 11/18/2020 2.1 m2 Final Right Atrium Index Superior-Inferi* 11/18/2020 26 mm Final Right Atrium Dimension Medial-Late* 11/18/2020 18 mm Final Left Ventricle Internal Diameter E* 11/18/2020 45 37 - 52 mm Final Left Ventricle Internal Diameter E* 11/18/2020 29 22 - 35 mm Final Raw LV EF% 11/18/2020 58 % Final Left Ventricular Apical Contributi* 11/18/2020 10 Final Ejection Fraction 11/18/2020 68 50 - 75 % Final Left Atrial Volume 11/18/2020 81 mL Final Left Atrial Volume Index 11/18/2020 38.57 mL/m2 Final Aortic Valve Peak Gradient 11/18/2020 101 mmHg Final Aortic Valve Mean Gradient 11/18/2020 63 mmHg Final Aortic Valve Area 11/18/2020 0.9 cm2 Final Aortic Valve Area Index 11/18/2020 0.43 cm2/m2 Final Left Ventricular Outflow Tract Charisse* 11/18/2020 2.0 cm Final Left Ventricular Outflow Tract Driss* 11/18/2020 1.2 m/s Final Left Atrium Dimension Anterior-Pos* 11/18/2020 46 15 - 40 mm Final Right Atrium Dimension Superior-In* 11/18/2020 55 mm Final Right Atrium Dimension Medial-Late* 11/18/2020 38 mm Final Tricuspid Valve Peak Velocity 11/18/2020 3.2 m/s Final Right Ventricle Peak Systolic Pres* 11/18/2020 51 mmHg Final Right Ventricle TAPSE 11/18/2020 20 mm Final Right Ventricle Wall Thickness Max 11/18/2020 6 1 - 5 mm Final Right Atrium Pressure Estimated 11/18/2020 10 mmHg Final Right Ventricle to Right Atrium Pr* 11/18/2020 41 mmHg Final Right Ventricle Pulse Doppler S Wa* 11/18/2020 13.0 cm/s Final Height 11/18/2020 155 cm Final Weight 11/18/2020 116 kg Final Ascending Aorta Diameter 11/18/2020 35 mm Final Left Ventricular Posterior Wall Th* 11/18/2020 14 mm Final Interventricular Septum Thickness 11/18/2020 15 mm Final Left Atrium Dimension Superior-Inf* 11/18/2020 72 29 - 53 mm Final Left Atrium Dimension Medial-Later* 11/18/2020 42 29 - 49 mm Final Inferior Vena Cava Diameter 11/18/2020 16 0 - 21 mm Final Right Ventricle Linear Dimension 11/18/2020 32 mm Final Ascending Aorta Diameter 11/18/2020 17 mm Final Right Atrium Index Superior-Inferi* 11/18/2020 26 mm Final Right Atrium Dimension Medial-Late* 11/18/2020 18 mm Final Ascending Aorta Index 11/18/2020 17 mm Final Aortic Valve Time Velocity Integral 11/18/2020 112.7 cm Final LVOT VTI REST 11/18/2020 31.7 cm Final Mitral Valve Mean Gradient 11/18/2020 6 mmHg Final Mitral Valve Peak Gradient 11/18/2020 14 mmHg Final Mitral Valve Gradient HR 11/18/2020 96 bpm Final Assessment & Plan (07/01/2019 12:12 PM EST): Patient's gout is under control. Last uric [...] 05/26/2019 6.3 2.4 - 7.0 mg/dL Final Assessment & Plan (03/11/2019 9:06 AM EST): While she has come in for an acute flare of gout involving the right wrist, our instructions which she follow through on to take the colchicine on an hourly basis worked quite nicely and there is about a 90% reduction in pain swelling and stiffness. I reviewed her last laboratory work about 1 week ago indicating a substantial drop in the uric acid from 10.7-7.1. And will be as follows: Try to maintain as best as possible a low purine diet, try to put in effect some modest weight reduction, increase allopurinol to 200 mg daily, continue to follow as needed the protocol for acute flares of gout with intervention with colchicine as before, for now start colchicine prophylactically at 0.6 mg twice weekly. Hospital Outpatient Visit on 01/08/2019 Component Date Value Ref Range Status MAGNESIUM 01/08/2019 1.5* 1.6 - 2.6 mg/dL Final Hospital Outpatient Visit on 01/06/2019 Component Date Value Ref Range Status PHOSPHORUS 01/06/2019 4.5 2.7 - 4.5 mg/dL Final WBC 01/06/2019 5.06 3.40 - 11.20 K/uL Final RBC 01/06/2019 3.75* 3.80 - 4.80 M/uL Final HGB 01/06/2019 10.4* 12.0 - 15.0 g/dL Final HCT 01/06/2019 32.9* 36.0 - 46.0 % Final PLT 01/06/2019 344 130 - 400 K/uL Final MCV 01/06/2019 87.7 79.0 - 98.0 fL Final MCH 01/06/2019 27.7 27.0 - 34.8 pg Final MCHC 01/06/2019 31.6 31.5 - 36.0 g/dL Final RDW 01/06/2019 18.4* 10.8 - 14.6 % Final MPV 01/06/2019 10.4 9.4 - 12.4 fl Final NRBC 01/06/2019 0.00 0.00 /100 WBCs Final ABSOLUTE NRBC 01/06/2019 0.00 0.00 K/uL Final DIFF METHOD 01/06/2019 Auto Final NEUTS 01/06/2019 53.9 45.30 - 77.70 % Final LYMPHS 01/06/2019 28.7 12.30 - 39.70 % Final MONOS 01/06/2019 13.2* 4.10 - 12.80 % Final EOS 01/06/2019 3.2 0 - 7.2 % Final BASOS 01/06/2019 0.6 0 - 2.80 % Final Granulocytes, immature (%) 01/06/2019 0.4 0.0 - 0.9 % Final ABSOLUTE NEUTS 01/06/2019 2.73 1.40 - 7.70 K/uL Final ABSOLUTE LYMPHS 01/06/2019 1.45 0.60 - 3.20 K/uL Final ABSOLUTE MONOS 01/06/2019 0.67* 0.11 - 0.59 K/uL Final ABSOLUTE EOS 01/06/2019 0.16 0.01 - 0.50 K/uL Final ABSOLUTE BASOS 01/06/2019 0.03 0.00 - 0.08 K/uL Final Granulocytes, immature 01/06/2019 0.02 0.00 - 0.05 K/uL Final SODIUM 01/06/2019 144 133 - 146 mmol/L Final CHLORIDE 01/06/2019 101 96 - 108 mmol/L Final POTASSIUM 01/06/2019 3.7 3.3 - 5.1 mmol/L Final CO2 01/06/2019 31 21 - 35 mmol/L Final BUN 01/06/2019 12 6 - 19 mg/dL Final CREATININE 01/06/2019 0.70 0.5 - 1.5 mg/dL Final GLUCOSE 01/06/2019 113* 70 - 99 mg/dL Final CALCIUM 01/06/2019 9.9 8.4 - 10.3 mg/dL Final EGFR 01/06/2019 85 >59 mL/min/1.73m2 Final If patient is black, multiply result by 1.159. Estimated glomerular filtration rate calculated using the CKD-EPI equation. ANION GAP 01/06/2019 16 10 - 20 mmol/L Final Hospital Outpatient Visit on 01/01/2019 Component Date Value Ref Range Status WBC 01/01/2019 4.92 3.40 - 11.20 K/uL Final RBC 01/01/2019 3.67* 3.80 - 4.80 M/uL Final HGB 01/01/2019 10.4* 12.0 - 15.0 g/dL Final HCT 01/01/2019 32.6* 36.0 - 46.0 % Final PLT 01/01/2019 361 130 - 400 K/uL Final MCV 01/01/2019 88.8 79.0 - 98.0 fL Final MCH 01/01/2019 28.3 27.0 - 34.8 pg Final MCHC 01/01/2019 31.9 31.5 - 36.0 g/dL Final RDW 01/01/2019 18.6* 10.8 - 14.6 % Final MPV 01/01/2019 10.2 9.4 - 12.4 fl Final NRBC 01/01/2019 0.00 0.00 /100 WBCs Final ABSOLUTE NRBC 01/01/2019 0.00 0.00 K/uL Final PHOSPHORUS 01/01/2019 4.6* 2.7 - 4.5 mg/dL Final MAGNESIUM 01/01/2019 1.4* 1.6 - 2.6 mg/dL Final SODIUM 01/01/2019 143 133 - 146 mmol/L Final POTASSIUM 01/01/2019 4.0 3.3 - 5.1 mmol/L Final CHLORIDE 01/01/2019 99 96 - 108 mmol/L Final CO2 01/01/2019 33 21 - 35 mmol/L Final BUN 01/01/2019 13 6 - 19 mg/dL Final CREATININE 01/01/2019 0.60 0.5 - 1.5 mg/dL Final GLUCOSE 01/01/2019 116* 70 - 99 mg/dL Final ALBUMIN 01/01/2019 3.4* 3.9 - 4.8 g/dL Final TOTAL PROTEIN 01/01/2019 6.4* 6.5 - 8.0 g/dL Final CALCIUM 01/01/2019 9.8 8.4 - 10.3 mg/dL Final ALKALINE PHOSPHATASE 01/01/2019 96 39 - 117 U/L Final TOTAL BILIRUBIN 01/01/2019 0.3 0.0 - 1.2 mg/dL Final AST 01/01/2019 27 0 - 37 U/L Final ALT 01/01/2019 19 0 - 40 U/L Final GLOBULIN 01/01/2019 3.0 1 - 4.8 g/dL Final EGFR 01/01/2019 90 >59 mL/min/1.73m2 Final If patient is black, multiply result by 1.159. Estimated glomerular filtration rate calculated using the CKD-EPI equation. ANION GAP 01/01/2019 15 10 - 20 mmol/L Final Admission on 12/26/2018, Discharged on 12/27/2018 Component Date Value Ref Range Status WBC 12/26/2018 6.99 3.40 - 11.20 K/uL Final RBC 12/26/2018 3.61* 3.80 - 4.80 M/uL Final HGB 12/26/2018 9.8* 12.0 - 15.0 g/dL Final HCT 12/26/2018 30.6* 36.0 - 46.0 % Final PLT 12/26/2018 429* 130 - 400 K/uL Final MCV 12/26/2018 84.8 79.0 - 98.0 fL Final MCH 12/26/2018 27.1 27.0 - 34.8 pg Final MCHC 12/26/2018 32.0 31.5 - 36.0 g/dL Final RDW 12/26/2018 17.8* 10.8 - 14.6 % Final MPV 12/26/2018 9.7 9.4 - 12.4 fl Final NRBC 12/26/2018 0.00 0.00 /100 WBCs Final ABSOLUTE NRBC 12/26/2018 0.00 0.00 K/uL Final DIFF METHOD 12/26/2018 Auto Final NEUTS 12/26/2018 64.9 45.30 - 77.70 % Final LYMPHS 12/26/2018 22.2 12.30 - 39.70 % Final MONOS 12/26/2018 9.2 4.10 - 12.80 % Final EOS 12/26/2018 2.7 0 - 7.2 % Final BASOS 12/26/2018 0.7 0 - 2.80 % Final Granulocytes, immature (%) 12/26/2018 0.3 0.0 - 0.9 % Final ABSOLUTE NEUTS 12/26/2018 4.54 1.40 - 7.70 K/uL Final ABSOLUTE LYMPHS 12/26/2018 1.55 0.60 - 3.20 K/uL Final ABSOLUTE MONOS 12/26/2018 0.64* 0.11 - 0.59 K/uL Final ABSOLUTE EOS 12/26/2018 0.19 0.01 - 0.50 K/uL Final ABSOLUTE BASOS 12/26/2018 0.05 0.00 - 0.08 K/uL Final Granulocytes, immature 12/26/2018 0.02 0.00 - 0.05 K/uL Final SODIUM 12/26/2018 136 133 - 146 mmol/L Final CHLORIDE 12/26/2018 92* 96 - 108 mmol/L Final POTASSIUM 12/26/2018 2.9* 3.3 - 5.1 mmol/L Final CO2 12/26/2018 30 21 - 35 mmol/L Final BUN 12/26/2018 20* 6 - 19 mg/dL Final CREATININE 12/26/2018 1.00 0.5 - 1.5 mg/dL Final GLUCOSE 12/26/2018 199* 70 - 99 mg/dL Final CALCIUM 12/26/2018 9.5 8.4 - 10.3 mg/dL Final EGFR 12/26/2018 55* >59 mL/min/1.73m2 Final If patient is black, multiply result by 1.159. Estimated glomerular filtration rate calculated using the CKD-EPI equation. ANION GAP 12/26/2018 17 10 - 20 mmol/L Final MAGNESIUM 12/26/2018 1.0* 1.6 - 2.6 mg/dL Final Comment: Critical Value. Results called to and read back by: Dilcia Leslie ED [id number] PT 12/26/2018 12.8 10.2 - 12.9 sec Final INR 12/26/2018 1.1 0.9 - 1.1 Final Therapeutic range for oral Vitamin K antagonists: 2.0-3.5 Troponin T-hs Gen5 12/26/2018 44* 0 - 9 ng/L Final Troponin T-hs Gen5 12/26/2018 43* 0 - 9 ng/L Final NT-PROBNP 12/26/2018 299 0 - 450 pg/mL Final Ventricular Rate EKG/MIN 12/26/2018 90 BPM Final Atrial Rate 12/26/2018 90 BPM Final UT Interval 12/26/2018 136 ms Final QRS Duration 12/26/2018 92 ms Final QT Interval 12/26/2018 416 ms Final QTC Interval 12/26/2018 508 ms Final P [place] 12/26/2018 34 degrees Final R Wave [place] 12/26/2018 -35 degrees Final T Wave [place] 12/26/2018 70 degrees Final MAGNESIUM 12/26/2018 1.6 1.6 - 2.6 mg/dL Final SODIUM 12/26/2018 137 133 - 146 mmol/L Final CHLORIDE 12/26/2018 95* 96 - 108 mmol/L Final POTASSIUM 12/26/2018 3.6 3.3 - 5.1 mmol/L Final CO2 12/26/2018 31 21 - 35 mmol/L Final BUN 12/26/2018 20* 6 - 19 mg/dL Final CREATININE 12/26/2018 0.90 0.5 - 1.5 mg/dL Final GLUCOSE 12/26/2018 213* 70 - 99 mg/dL Final CALCIUM 12/26/2018 9.7 8.4 - 10.3 mg/dL Final EGFR 12/26/2018 63 >59 mL/min/1.73m2 Final If patient is black, multiply result by 1.159. Estimated glomerular filtration rate calculated using the CKD-EPI equation. ANION GAP 12/26/2018 15 10 - 20 mmol/L Final WHOLE BLOOD GLUCOSE 12/26/2018 150* 70 - 99 mg/dL Final C.DIFFICILE PCR 12/26/2018 Negative Negative Final C.DIFFICILE STRAIN 12/26/2018 PRESUMPTIVE NEGATIVE PRESUMPTIVE NEGATIVE Final Detection of 027/NAP1/BI strains of C.difficile is presumptive and is solely for epidemiological purposes and is not intended to guide or monitor treatment of infections. WHOLE BLOOD GLUCOSE 12/26/2018 195* 70 - 99 mg/dL Final WHOLE BLOOD GLUCOSE 12/26/2018 156* 70 - 99 mg/dL Final WHOLE BLOOD GLUCOSE 12/26/2018 191* 70 - 99 mg/dL Final SODIUM 12/27/2018 140 133 - 146 mmol/L Final CHLORIDE 12/27/2018 99 96 - 108 mmol/L Final POTASSIUM 12/27/2018 3.5 3.3 - 5.1 mmol/L Final CO2 12/27/2018 30 21 - 35 mmol/L Final BUN 12/27/2018 16 6 - 19 mg/dL Final CREATININE 12/27/2018 0.90 0.5 - 1.5 mg/dL Final GLUCOSE 12/27/2018 157* 70 - 99 mg/dL Final CALCIUM 12/27/2018 9.3 8.4 - 10.3 mg/dL Final EGFR 12/27/2018 63 >59 mL/min/1.73m2 Final If patient is black, multiply result by 1.159. Estimated glomerular filtration rate calculated using the CKD-EPI equation. ANION GAP 12/27/2018 15 10 - 20 mmol/L Final MAGNESIUM 12/27/2018 1.7 1.6 - 2.6 mg/dL Final PHOSPHORUS 12/27/2018 3.3 2.7 - 4.5 mg/dL Final WHOLE BLOOD GLUCOSE 12/27/2018 145* 70 - 99 mg/dL Final Hospital Outpatient Visit on 12/23/2018 Component Date Value Ref Range Status SODIUM 12/23/2018 140 133 - 146 mmol/L Final CHLORIDE 12/23/2018 96 96 - 108 mmol/L Final POTASSIUM 12/23/2018 3.3 3.3 - 5.1 mmol/L Final CO2 12/23/2018 30 21 - 35 mmol/L Final BUN 12/23/2018 22* 6 - 19 mg/dL Final CREATININE 12/23/2018 0.90 0.5 - 1.5 mg/dL Final GLUCOSE 12/23/2018 168* 70 - 99 mg/dL Final CALCIUM 12/23/2018 9.7 8.4 - 10.3 mg/dL Final EGFR 12/23/2018 63 >59 mL/min/1.73m2 Final If patient is black, multiply result by 1.159. Estimated glomerular filtration rate calculated using the CKD-EPI equation. ANION GAP 12/23/2018 17 10 - 20 mmol/L Final WBC 12/23/2018 7.52 3.40 - 11.20 K/uL Final RBC 12/23/2018 3.55* 3.80 - 4.80 M/uL Final HGB 12/23/2018 9.7* 12.0 - 15.0 g/dL Final HCT 12/23/2018 31.0* 36.0 - 46.0 % Final PLT 12/23/2018 444* 130 - 400 K/uL Final MCV 12/23/2018 87.3 79.0 - 98.0 fL Final MCH 12/23/2018 27.3 27.0 - 34.8 pg Final MCHC 12/23/2018 31.3* 31.5 - 36.0 g/dL Final RDW 12/23/2018 18.0* 10.8 - 14.6 % Final MPV 12/23/2018 10.3 9.4 - 12.4 fl Final NRBC 12/23/2018 0.00 0.00 /100 WBCs Final ABSOLUTE NRBC 12/23/2018 0.00 0.00 K/uL Final Hospital Outpatient Visit on 12/13/2018 Component Date Value Ref Range Status WBC 12/13/2018 9.11 3.40 - 11.20 K/uL Final RBC 12/13/2018 3.54* 3.80 - 4.80 M/uL Final HGB 12/13/2018 9.8* 12.0 - 15.0 g/dL Final HCT 12/13/2018 30.7* 36.0 - 46.0 % Final PLT 12/13/2018 487* 130 - 400 K/uL Final MCV 12/13/2018 86.7 79.0 - 98.0 fL Final MCH 12/13/2018 27.7 27.0 - 34.8 pg Final MCHC 12/13/2018 31.9 31.5 - 36.0 g/dL Final RDW 12/13/2018 18.7* 10.8 - 14.6 % Final MPV 12/13/2018 9.7 9.4 - 12.4 fl Final NRBC 12/13/2018 0.00 0.00 /100 WBCs Final ABSOLUTE NRBC 12/13/2018 0.00 0.00 K/uL Final SODIUM 12/13/2018 137 133 - 146 mmol/L Final POTASSIUM 12/13/2018 3.9 3.3 - 5.1 mmol/L Final CHLORIDE 12/13/2018 96 96 - 108 mmol/L Final CO2 12/13/2018 28 21 - 35 mmol/L Final BUN 12/13/2018 8 6 - 19 mg/dL Final CREATININE 12/13/2018 0.60 0.5 - 1.5 mg/dL Final GLUCOSE 12/13/2018 66* 70 - 99 mg/dL Final ALBUMIN 12/13/2018 3.2* 3.9 - 4.8 g/dL Final TOTAL PROTEIN 12/13/2018 6.1* 6.5 - 8.0 g/dL Final CALCIUM 12/13/2018 9.5 8.4 - 10.3 mg/dL Final ALKALINE PHOSPHATASE 12/13/2018 83 39 - 117 U/L Final TOTAL BILIRUBIN 12/13/2018 0.5 0.0 - 1.2 mg/dL Final AST 12/13/2018 21 0 - 37 U/L Final ALT 12/13/2018 13 0 - 40 U/L Final GLOBULIN 12/13/2018 2.9 1 - 4.8 g/dL Final EGFR 12/13/2018 90 >59 mL/min/1.73m2 Final If patient is black, multiply result by 1.159. Estimated glomerular filtration rate calculated using the CKD-EPI equation. ANION GAP 12/13/2018 17 10 - 20 mmol/L Final Admission on 12/09/2018, Discharged on 12/12/2018 Component Date Value Ref Range Status Ventricular Rate EKG/MIN 12/09/2018 99 BPM Final Atrial Rate 12/09/2018 99 BPM Final UT Interval 12/09/2018 146 ms Final QRS Duration 12/09/2018 96 ms Final QT Interval 12/09/2018 350 ms Final QTC Interval 12/09/2018 449 ms Final P [place] 12/09/2018 8 degrees Final R Wave [place] 12/09/2018 -30 degrees Final T Wave [place] 12/09/2018 71 degrees Final WBC 12/09/2018 8.46 3.40 - 11.20 K/uL Final RBC 12/09/2018 3.55* 3.80 - 4.80 M/uL Final HGB 12/09/2018 9.7* 12.0 - 15.0 g/dL Final HCT 12/09/2018 30.5* 36.0 - 46.0 % Final PLT 12/09/2018 439* 130 - 400 K/uL Final MCV 12/09/2018 85.9 79.0 - 98.0 fL Final MCH 12/09/2018 27.3 27.0 - 34.8 pg Final MCHC 12/09/2018 31.8 31.5 - 36.0 g/dL Final RDW 12/09/2018 19.3* 10.8 - 14.6 % Final MPV 12/09/2018 9.4 9.4 - 12.4 fl Final NRBC 12/09/2018 0.00 0.00 /100 WBCs Final ABSOLUTE NRBC 12/09/2018 0.00 0.00 K/uL Final DIFF METHOD 12/09/2018 Auto Final NEUTS 12/09/2018 83.2* 45.30 - 77.70 % Final LYMPHS 12/09/2018 8.5* 12.30 - 39.70 % Final MONOS 12/09/2018 7.6 4.10 - 12.80 % Final EOS 12/09/2018 0.1 0 - 7.2 % Final BASOS 12/09/2018 0.2 0 - 2.80 % Final Granulocytes, immature (%) 12/09/2018 0.4 0.0 - 0.9 % Final ABSOLUTE NEUTS 12/09/2018 7.04 1.40 - 7.70 K/uL Final ABSOLUTE LYMPHS 12/09/2018 0.72 0.60 - 3.20 K/uL Final ABSOLUTE MONOS 12/09/2018 0.64* 0.11 - 0.59 K/uL Final ABSOLUTE EOS 12/09/2018 0.01 0.01 - 0.50 K/uL Final ABSOLUTE BASOS 12/09/2018 0.02 0.00 - 0.08 K/uL Final Granulocytes, immature 12/09/2018 0.03 0.00 - 0.05 K/uL Final SODIUM 12/09/2018 139 133 - 146 mmol/L Final CHLORIDE 12/09/2018 95* 96 - 108 mmol/L Final POTASSIUM 12/09/2018 2.8* 3.3 - 5.1 mmol/L Final CO2 12/09/2018 32 21 - 35 mmol/L Final BUN 12/09/2018 23* 6 - 19 mg/dL Final CREATININE 12/09/2018 0.70 0.5 - 1.5 mg/dL Final GLUCOSE 12/09/2018 167* 70 - 99 mg/dL Final CALCIUM 12/09/2018 9.9 8.4 - 10.3 mg/dL Final EGFR 12/09/2018 85 >59 mL/min/1.73m2 Final If patient is black, multiply result by 1.159. Estimated glomerular filtration rate calculated using the CKD-EPI equation. ANION GAP 12/09/2018 15 10 - 20 mmol/L Final MAGNESIUM 12/09/2018 2.3 1.6 - 2.6 mg/dL Final ALKALINE PHOSPHATASE 12/09/2018 97 39 - 117 U/L Final TOTAL BILIRUBIN 12/09/2018 0.4 0.0 - 1.2 mg/dL Final DIRECT BILIRUBIN 12/09/2018 <0.2 0 - 0.3 mg/dL Final Bilirubin (Indirect) 12/09/2018 NOT CALCULATED 0 - 1.5 mg/dL Final AST 12/09/2018 22 0 - 37 U/L Final ALT 12/09/2018 15 0 - 40 U/L Final TOTAL PROTEIN 12/09/2018 6.9 6.5 - 8.0 g/dL Final ALBUMIN 12/09/2018 3.3* 3.9 - 4.8 g/dL Final GLOBULIN 12/09/2018 3.6 1 - 4.8 g/dL Final A/G Ratio 12/09/2018 0.92* 1.00 - 4.80 RATIO Final LIPASE 12/09/2018 10* 16 - 63 U/L Final PT 12/09/2018 12.7 10.2 - 12.9 sec Final INR 12/09/2018 1.1 0.9 - 1.1 Final Therapeutic range for oral Vitamin K antagonists: 2.0-3.5 LACTATE 12/09/2018 1.41 0.50 - 2.20 mmol/L Final LACTATE 12/09/2018 1.55 0.50 - 2.20 mmol/L Final Special Requests 12/09/2018 None Final BLOOD CULTURE 12/09/2018 NO GROWTH 6 DAYS Final Special Requests 12/09/2018 None Final BLOOD CULTURE 12/09/2018 NO GROWTH 6 DAYS Final COLOR 12/09/2018 Yellow Yellow Final CLARITY 12/09/2018 Clear Final GLUCOSE 12/09/2018 Negative Negative Final BILI 12/09/2018 Negative Negative Final KETONES 12/09/2018 Negative Negative Final SPECIFIC GRAVITY 12/09/2018 <1.005 1.005 - 1.030 Final BLOOD 12/09/2018 Negative Negative Final PH 12/09/2018 6.0 5.0 - 8.0 Final Protein-UA 12/09/2018 Negative Negative Final NITRITE 12/09/2018 Negative Negative Final Leukocyte esterase, ur 12/09/2018 Trace* Negative Final WBC 12/09/2018 0-4* NONE SEEN /hpf Final RBC 12/09/2018 NONE SEEN NONE SEEN /hpf Final URINE EPITHELIAL 12/09/2018 5-10* NONE SEEN Final MUCUS 12/09/2018 NONE SEEN NONE SEEN /hpf Final BACTERIA 12/09/2018 NONE SEEN NONE SEEN Final WHOLE BLOOD GLUCOSE 12/09/2018 139* 70 - 99 mg/dL Final WHOLE BLOOD GLUCOSE 12/09/2018 141* 70 - 99 mg/dL Final WHOLE BLOOD GLUCOSE 12/10/2018 113* 70 - 99 mg/dL Final SODIUM 12/10/2018 137 133 - 146 mmol/L Final CHLORIDE 12/10/2018 94* 96 - 108 mmol/L Final POTASSIUM 12/10/2018 2.9* 3.3 - 5.1 mmol/L Final CO2 12/10/2018 32 21 - 35 mmol/L Final BUN 12/10/2018 15 6 - 19 mg/dL Final CREATININE 12/10/2018 0.60 0.5 - 1.5 mg/dL Final GLUCOSE 12/10/2018 141* 70 - 99 mg/dL Final CALCIUM 12/10/2018 9.4 8.4 - 10.3 mg/dL Final EGFR 12/10/2018 90 >59 mL/min/1.73m2 Final If patient is black, multiply result by 1.159. Estimated glomerular filtration rate calculated using the CKD-EPI equation. ANION GAP 12/10/2018 14 10 - 20 mmol/L Final WHOLE BLOOD GLUCOSE 12/10/2018 133* 70 - 99 mg/dL Final WHOLE BLOOD GLUCOSE 12/10/2018 128* 70 - 99 mg/dL Final WHOLE BLOOD GLUCOSE 12/10/2018 153* 70 - 99 mg/dL Final SODIUM 12/11/2018 137 133 - 146 mmol/L Final CHLORIDE 12/11/2018 94* 96 - 108 mmol/L Final POTASSIUM 12/11/2018 3.0* 3.3 - 5.1 mmol/L Final CO2 12/11/2018 32 21 - 35 mmol/L Final BUN 12/11/2018 8 6 - 19 mg/dL Final CREATININE 12/11/2018 0.60 0.5 - 1.5 mg/dL Final GLUCOSE 12/11/2018 80 70 - 99 mg/dL Final CALCIUM 12/11/2018 9.3 8.4 - 10.3 mg/dL Final EGFR 12/11/2018 90 >59 mL/min/1.73m2 Final If patient is black, multiply result by 1.159. Estimated glomerular filtration rate calculated using the CKD-EPI equation. ANION GAP 12/11/2018 14 10 - 20 mmol/L Final WHOLE BLOOD GLUCOSE 12/11/2018 89 70 - 99 mg/dL Final WHOLE BLOOD GLUCOSE 12/11/2018 147* 70 - 99 mg/dL Final WHOLE BLOOD GLUCOSE 12/11/2018 220* 70 - 99 mg/dL Final WHOLE BLOOD GLUCOSE 12/11/2018 184* 70 - 99 mg/dL Final SODIUM 12/12/2018 137 133 - 146 mmol/L Final CHLORIDE 12/12/2018 95* 96 - 108 mmol/L Final POTASSIUM 12/12/2018 3.4 3.3 - 5.1 mmol/L Final CO2 12/12/2018 30 21 - 35 mmol/L Final BUN 12/12/2018 7 6 - 19 mg/dL Final CREATININE 12/12/2018 0.60 0.5 - 1.5 mg/dL Final GLUCOSE 12/12/2018 103* 70 - 99 mg/dL Final CALCIUM 12/12/2018 9.7 8.4 - 10.3 mg/dL Final EGFR 12/12/2018 90 >59 mL/min/1.73m2 Final If patient is black, multiply result by 1.159. Estimated glomerular filtration rate calculated using the CKD-EPI equation. ANION GAP 12/12/2018 15 10 - 20 mmol/L Final WBC 12/12/2018 8.91 3.40 - 11.20 K/uL Final RBC 12/12/2018 3.78* 3.80 - 4.80 M/uL Final HGB 12/12/2018 10.3* 12.0 - 15.0 g/dL Final HCT 12/12/2018 33.0* 36.0 - 46.0 % Final PLT 12/12/2018 476* 130 - 400 K/uL Final MCV 12/12/2018 87.3 79.0 - 98.0 fL Final MCH 12/12/2018 27.2 27.0 - 34.8 pg Final MCHC 12/12/2018 31.2* 31.5 - 36.0 g/dL Final RDW 12/12/2018 19.0* 10.8 - 14.6 % Final MPV 12/12/2018 9.5 9.4 - 12.4 fl Final NRBC 12/12/2018 0.00 0.00 /100 WBCs Final ABSOLUTE NRBC 12/12/2018 0.00 0.00 K/uL Final DIFF METHOD 12/12/2018 Auto Final NEUTS 12/12/2018 70.5 45.30 - 77.70 % Final LYMPHS 12/12/2018 17.3 12.30 - 39.70 % Final MONOS 12/12/2018 10.5 4.10 - 12.80 % Final EOS 12/12/2018 0.9 0 - 7.2 % Final BASOS 12/12/2018 0.4 0 - 2.80 % Final Granulocytes, immature (%) 12/12/2018 0.4 0.0 - 0.9 % Final ABSOLUTE NEUTS 12/12/2018 6.27 1.40 - 7.70 K/uL Final ABSOLUTE LYMPHS 12/12/2018 1.54 0.60 - 3.20 K/uL Final ABSOLUTE MONOS 12/12/2018 0.94* 0.11 - 0.59 K/uL Final ABSOLUTE EOS 12/12/2018 0.08 0.01 - 0.50 K/uL Final ABSOLUTE BASOS 12/12/2018 0.04 0.00 - 0.08 K/uL Final Granulocytes, immature 12/12/2018 0.04 0.00 - 0.05 K/uL Final WHOLE BLOOD GLUCOSE 12/12/2018 112* 70 - 99 mg/dL Final WHOLE BLOOD GLUCOSE 12/12/2018 200* 70 - 99 mg/dL Final Assessment & Plan (11/19/2018 1:39 PM EDT): 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 She has tolerated introduction to allopurinol without problem thus far. I reviewed recent lab work done today indicating stabilization of her creatinine though her GFR is diminished. Her CBC is stable. I have added a uric acid to this. Plan will be to decrease colchicine to 0.6 mg daily from twice daily and then in 10 days to 0 point milligrams Sunday and Sunday only. She will continue on allopurinol 100 mg a day for now. I am going to try to achieve a target uric acid level of 6.0 or less. She will have a consult with Dr. Cohen a well-respected suture gauger as well as a nurse head to continue to treat her compensated for now congestive heart failure. She understands the relationship between obesity, furosemide, low-dose aspirin, and hyperuricemia and she also understands the between hyperuricemia, polyarticular gout, and worsening kidney disease. All questions were answered and greater than 50% of this 30-minute visit was spent [id number] conversation with the patient with her present. Hospital Outpatient Visit on 11/18/2018 Component Date Value Ref Range Status SODIUM 11/18/2018 137 133 - 146 mmol/L Final CHLORIDE 11/18/2018 89* 96 - 108 mmol/L Final POTASSIUM 11/18/2018 3.3 3.3 - 5.1 mmol/L Final CO2 11/18/2018 33 21 - 35 mmol/L Final BUN 11/18/2018 26* 6 - 19 mg/dL Final CREATININE 11/18/2018 1.20 0.5 - 1.5 mg/dL Final GLUCOSE 11/18/2018 74 70 - 99 mg/dL Final CALCIUM 11/18/2018 9.6 8.4 - 10.3 mg/dL Final EGFR 11/18/2018 44* >59 mL/min/1.73m2 Final If patient is black, multiply result by 1.159. Estimated glomerular filtration rate calculated using the CKD-EPI equation. ANION GAP 11/18/2018 18 10 - 20 mmol/L Final WBC 11/18/2018 7.68 3.40 - 11.20 K/uL Final RBC 11/18/2018 3.86 3.80 - 4.80 M/uL Final HGB 11/18/2018 10.0* 12.0 - 15.0 g/dL Final HCT 11/18/2018 33.6* 36.0 - 46.0 % Final PLT 11/18/2018 564* 130 - 400 K/uL Final MCV 11/18/2018 87.0 79.0 - 98.0 fL Final MCH 11/18/2018 25.9* 27.0 - 34.8 pg Final MCHC 11/18/2018 29.8* 31.5 - 36.0 g/dL Final RDW 11/18/2018 19.2* 10.8 - 14.6 % Final MPV 11/18/2018 10.1 9.4 - 12.4 fl Final NRBC 11/18/2018 0.00 0.00 /100 WBCs Final ABSOLUTE NRBC 11/18/2018 0.00 0.00 K/uL Final DIFF METHOD 11/18/2018 Auto Final NEUTS 11/18/2018 48.4 45.30 - 77.70 % Final LYMPHS 11/18/2018 36.1 12.30 - 39.70 % Final MONOS 11/18/2018 10.9 4.10 - 12.80 % Final EOS 11/18/2018 3.8 0 - 7.2 % Final BASOS 11/18/2018 0.4 0 - 2.80 % Final Granulocytes, immature (%) 11/18/2018 0.4 0.0 - 0.9 % Final ABSOLUTE NEUTS 11/18/2018 3.72 1.40 - 7.70 K/uL Final ABSOLUTE LYMPHS 11/18/2018 2.77 0.60 - 3.20 K/uL Final ABSOLUTE MONOS 11/18/2018 0.84* 0.11 - 0.59 K/uL Final ABSOLUTE EOS 11/18/2018 0.29 0.01 - 0.50 K/uL Final ABSOLUTE BASOS 11/18/2018 0.03 0.00 - 0.08 K/uL Final Granulocytes, immature 11/18/2018 0.03 0.00 - 0.05 K/uL Final No results displayed because visit has over 200 results. Assessment & Plan (11/07/2018 3:42 PM EDT): Fever is probably from an inflammatory process that is not infectious. Rheumatology, Dr. Ortez, recommended trial of Solu-Medrol x2 doses. Patient defervesced and started feeling better. Fever presumably secondary to this being an acute gout attack along with elevated CRP, and ESR. Colchicine and allopurinol started today. Reviewed with patient and at bedside. If remains afebrile tomorrow will be transferred to skilled rehab. Dr. Ortez will see her in 1 week and follow-up as outpatient and repeat inflammatory markers UTI (urinary tract infection) due to Enterococcu s 11/01/2018 Assessment & Plan (11/07/2018 3:40 PM EDT): Resolved Anemia 10/31/2018 Assessment & Plan (11/04/2018 5:13 PM EDT): Better after transfusion. Should ultimately undergo GI work-up with endoscopy and colonoscopy Weakness generalized 10/30/2018 Assessment & Plan (12/26/2018 8:31 AM EDT): Patient has been residing at [facility] for extended care for some time now. [...] I hope that it will improve quickly. Assessment & Plan (11/06/2018 4:50 PM EDT): Multifactorial including her medical illnesses, chronic pain, depression, and neediness. Appreciate Dr. Zuniga's input and initiation of Cymbalta. Elevated WBC count 10/30/2018 Assessment & Plan (11/06/2018 4:50 PM EDT): Fluctuating CHF (congestive heart failure) 10/30/2018 Assessment & Plan (03/16/2021 6:16 PM EST): HFpEF, with MCGARRY. She is on Lasix 80 mg twice daily at home. - Continue home Lasix dosing for now. - Daily weights, 2 gr Na+ diet - Nutrition consult Assessment & Plan (06/07/2020 1:23 PM EST): Compensated congestive heart failure but I had like to avoid any corticosteroids in this patient with fluid retention would be a big stressor on her heart. She understands that she really does need to move ahead with plans for elective aortic valve replacement. She would like to do this at [facility]. Assessment & Plan (12/26/2018 8:24 AM EDT): Patient is followed by by an outside nurse head. She is been maintained on Lasix 40 [...] diuretic with further titration as an outpatient. Assessment & Plan (12/11/2018 7:23 PM EDT): Known history of congestive heart failure. Echocardiogram reviewed from 10/2018 which showed normal LV size and function with EF 62%. Severe valvular aortic stenosis present. Mild MR. Mildly elevated pulmonary pressures. -Initially received IV fluids, Lasix was held. Consider restarting tomorrow. Assessment & Plan (11/05/2018 2:52 PM EDT): Stable control of diastolic heart failure Hypomagnesemia 10/30/2018 Assessment & Plan (12/26/2018 8:28 AM EDT): The patient is again suffering from low [...] ultimately p.o. it when she is improving. Assessment & Plan (10/31/2018 12:00 PM EDT): Resolved with supplementation Diabetes mellitus type 2, insulin dependent 06/2018 Assessment & Plan (03/16/2021 6:37 PM EST): Pt takes Lantus, 80-100 units in the morning and 90-110 units before dinner. Hgba1c 7.9 - Pt can determine Lantus doses while in hospital depending on BS and meals/snacks. - Nutrition consult for DM, HFpEF, obesity Assessment & Plan (12/26/2018 8:28 AM EDT): Continue her Lantus, sliding scale with meals and Januvia. Assessment & Plan (12/11/2018 7:21 PM EDT): Januvia held at admission. Patient takes long-acting insulin in addition to 50 units twice daily. Glucose slowly increasing after restarting her diet. Initially started Lantus 10 units twice a day, this is increased to 25 units twice daily. -Continue titration of her Lantus upwards. Assessment & Plan (11/05/2018 2:53 PM EDT): Patient does not follow diabetic diet at home. Glycemic control in hospital is very labile. We have continued to cut back on basal insulin, adjusting pre-meal as well. 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 Osteoarthritis of lumbar spine 09/11/2017 Assessment & Plan (12/21/2021 9:23 PM EDT): Continue cymbalta Continue Gabapentin, add 100 mg q AM. Pt cautioned about sedation Continue pain management f/u Assessment & Plan (10/22/2018 12:38 PM EDT): No signs or symptoms of neurogenic claudication or lumbar radiculopathy in this patient with severe multilevel spinal stenosis. She will remain on gabapentin 400 mg nightly as well as the Vicodin which incompletely helps the pain but she cannot tolerate other medication and I do not wish to move up to oxycodone. Assessment & Plan (09/11/2017 3:19 PM EDT): She is having worsening pain in the [...] relief and she will contact the painter airbrush for consideration of a corticosteroid epidural injection. 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 Assessment & Plan (10/04/2020 3:12 PM EDT): Severe interphalangeal osteoarthritis of both hands is symptomatic but stable. She will continue to use heat, enlarged rejected items clerk on tools and utensils and judicious use of warmth. Assessment & Plan (11/07/2018 3:39 PM EDT): Severe OA especially in lumbar back and hands. Seems to be responding to MS Contin 30 mg twice daily along with as needed oxycodone. Will continue at this dosing for now. Her acute joint flare seems to be responding to the steroids she received consistent with probable gout. Assessment & Plan (10/22/2018 12:39 PM EDT): Severe involvement of the interphalangeal and basilar thumb joints. Enlarged rejected items clerk on tools and utensils and basilar thumb joint splints and when necessary intra- articular cortisone injections. Assessment & Plan (07/22/2018 12:30 PM EDT): Severe and painful osteoarthritis involving the basilar thumb joints and interphalangeal joints of both hands. We discussed the judicious use of warmth as well as enlarged rejected items clerk with a pen so she can improve her penmanship. I am increasing her Vicodin to 7.5 mg every 6 hours from 5 mg every 6 hours and her nighttime dose of gabapentin from 300 mg to 400 mg. She will get back to me by phone call within 1 week to let me know how this helps her. Assessment & Plan (06/15/2017 3:42 PM EST): Active but stable with primary osteoarthritis in the basilar thumb joints left greater than right. Medications are be left unchanged and enlarged rejected items clerk on tools and utensils and be used as well as the judicious use of warmth and when absolutely necessary I will consider an intra-articular cortisone injection into the basilar thumb joint on the left side. Assessment & Plan (03/12/2017 9:33 AM EST): Symptomatic painful left first carpometacarpal osteoarthritis does not need any injection today. She will continue to use large rejected items clerk on tools and utensils and local warmth and call me if she needs an injection into the basilar thumb joint. Greater than 50% of this 28 minute visit was spent in [id number] conversation with the patient going over her upcoming cervical neurosurgical procedure, risks and benefits of her medication, reviewing her bone densitometry done last week showing a T score in the lumbar spine +2.5 and a right hip T score of +1.4 on the left hip T score +1.0 placing or sequelae within the normal category at low risk for fracture. Neuropathy 03/12/2017 Assessment & Plan (10/04/2020 3:12 PM EDT): Painful burning of both feet secondary to lumbar radiculopathy is fairly well controlled using 400 mg of gabapentin at bedtime which she tolerates well. No fluid retention or morning grogginess and this medication should remain unchanged as well. Assessment & Plan (12/09/2018 5:21 PM EDT): Gabapentin nightly Assessment & Plan (07/22/2018 12:30 PM EDT): Continue nighttime gabapentin at increased dose 400 mg. Lumbar radiculopathy 03/12/2017 Assessment & Plan (01/17/2021 4:35 PM EDT): Secondary to lateral recess stenosis in the lumbar spine, what is more constant is daily pain mostly in the left lower back and sacrum. When she is cleared from cardiothoracic surgery and cardiology sometimes after her surgery I think she should go back to Dr. Canchola for consideration of either a facet joint block or an epidural injection. She may continue Cymbalta at 40 mg daily given in hospital for control of her mood disorder and for some analgesia. Assessment & Plan (06/07/2020 1:21 PM EST): Painful lower extremity radiculopathy as well as bilateral lower and upper extremity diabetic sensory neuropathy will continue to be treated with low-dose nightly gabapentin which has been very helpful to her. Assessment & Plan (07/01/2019 12:14 PM EST): Right lower extremity radiculopathy has improved. She will continue to see Dr. Canchola. The injection really helped. She will continue on hydrocodone as needed as well as duloxetine at 40 mg a day. This has helped her pain and mood. Greater than 50% of this 20-minute visit was spent [id number] conversation with the patient and her present coordinating my care with out of her primary care physician as well as her orthopedic surgeon and painter airbrush. Assessment & Plan (04/08/2019 5:09 PM EST): We talked about patient's severe lumbar spinal stenosis and radiculopathy. We talked about an upcoming visit with Dr. Canchola for consideration of an epidural corticosteroid injection. As I explained to the and her today she needs to consult with her primary care physician such that she can have a insulin sliding scale to refer to in the 72 hours after her epidural injection. So because of her history of congestive heart failure as before Dr. Canchola should administer 50% of the normal corticosteroid dose. Assessment & Plan (03/11/2019 9:07 AM EST): Reviewed MRI lumbar spine indicating significant lateral recess stenosis as the cause of her radicular pain both in the right and left lower extremities. The right hip x-ray was normal. I am referring her to Dr. Canchola for consideration of a fluoroscopically guided lumbar epidural injection. Assessment & Plan (11/19/2018 1:40 PM EDT): This has improved substantially. It is important that she be taken off her long- term MS Contin as I do not think she needs that type of 24/7 narcotic coverage. I think would be more appropriate to give her 5 to 7.5 mg of hydrocodone which she may take daily on an as-needed basis. Assessment & Plan (07/22/2018 12:31 PM EDT): Severe lumbar spinal stenosis with intermittent radicular pain has been a chronic issue. A lot of the pain both from her spinal stenosis as well as in her peripheral joints has been masked by her prednisone usage for treatment of her asthma. Now that she is off prednisone these areas are becoming more painful. We will see how she does on the increased dose of hydrocodone he should limit all Tylenol to less than 1500 mg daily and avoid nonsteroidal agents. Greater than 50% of this 29-minute visit was spent in [id number] conversation with the patient and her and all their questions were answered. We will try to coordinate my care with out of her nurse head and primary care physician. Assessment & Plan (05/13/2018 11:44 AM EST): This continues to be active in her [...] of this 29-minute visit was spent in [id number] conversation with the patient and her present going over her upcoming consult with cardiology and pulmonary as well as the risks and benefits of her current medications and the best way to manage her pain. Of her questions were answered. Assessment & Plan (02/20/2018 2:13 PM EDT): Reviewed in detail with her the MRI of the lumbar spine indicating degenerative endplate changes at L4-5 and L3-4 as well as significant neuroforaminal narrowing at L4-5 and L5-S1. It was essentially unchanged from 2014. As I explained to the patient today would be refilling her hydrocodone tablets she should avoid any systemic steroids until she is more stable from a cardiovascular point of view. He has a combination of cardiac left ventricular dysfunction, aortic stenosis, well as asthma needs to have a relationship not only with her primary care physician but with a nurse head as well. When she is more stable then she may consider having another epidural injection would also consider a consultation with a neurosurgeon to see if she is a surgical candidate for decompressive laminectomy. All of her questions were answered. Greater than 50% of this 28-minute visit was spent in fbwy-ij-[id number] conversation with the patient going over her therapeutic options and coordinating my care with out of her primary care physician. 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 She did not respond well to local injection therapy. She will continue to use ibuprofen 800 mg 3 times daily as well as a proton pump inhibitor as a gastroprotective agent and hydrocodone at nighttime. She is waiting to see Dr. Canchola for possible consult for epidural corticosteroid injection. She will call me thereafter. I've is a possibility of referral back to neurosurgeon if this is unsuccessful. Medications were left unchanged. Greater than 50% of this 28 minute visit was spent in dcri-jz-[id number] conversation going over the natural history and treatment of lumbar radiculopathy as well as the risks and benefits of her current medication. Assessment & Plan (06/15/2017 3:43 PM EST): Chronic, stable, without exacerbation. Core strengthening and weight reduction are essential for the treatment of this. This was discussed in detail. Greater than 50% of this 28 minute visit was spent in nvee-yw-bhjr conversation with the patient with her present going over her recent operation, the natural history of cervical nerve root compression and the treatment of her hand osteoarthritis and low back pain. Assessment & Plan (03/12/2017 9:32 AM EST): Treatment will be periodic visits to the painter airbrush 1 severe for either fluoroscopically guided lumbar facet injections or epidural injections. In the meantime I discussed strategies for weight reduction and core strengthening and continue his current pain medication regimen. Her blood pressure was normal and recent physical exam with lab work at her primary care physician's office was within normal limits. Medications will remain unchanged. History of total bilateral knee replacement 02/28 Assessment & Plan (10/22/2018 12:38 PM EDT): These are stable without signs of mechanical loosening. Assessment & Plan (06/15/2017 3:43 PM EST): Doing well with this with stability in no signs of loosening. Cervical radiculitis 03/12/2017 Assessment & Plan (09/11/2017 3:18 PM EDT): Patient is doing better. She had a surgery done in April when well. She no longer has any radicular symptoms. Assessment & Plan (06/15/2017 3:43 PM EST): She is 6 weeks status post cervical laminectomy and doing well. She is not allowed to take her ibuprofen for another month as per the neurosurgeon so I will refill her 5 mg hydrocodone tablets today and limited basis. Risks and benefits discussed. Gabapentin will be left at 100 mg at bedtime as she has been unable to tolerate higher doses because of dizziness. Assessment & Plan (03/12/2017 9:31 AM EST): Patient will have elective neurosurgical decompression of her cervical disc which is quite a bit with her left upper extremity cervical radiculopathy. In the meantime she will continue on 100 mg of gabapentin at bedtime because attempts to raise his Synvisc was quite a bit of daytime grogginess. After discussing all risks and benefits she will stay on 800 mg of ibuprofen 3 times daily using 20 mg of omeprazole and suggest stroke protective agent. She will increase her hydrocodone from 5 mg to 7.5 mg taken twice daily as needed. Hypothyroid Assessment & Plan (12/09/2018 5:23 PM EDT): Patient given IV levothyroxine at approximately half of home dose. Constipation Assessment & Plan (12/26/2018 8:26 AM EDT): The patient was admitted this summer with [...] of the bowel regimen she will improve. GERD with esophagitis CLEVE (obstructive sleep apnea) Assessment & Plan (12/09/2018 5:21 PM EDT): Unclear if patient uses CPAP. We will confirm this and call the respiratory team for support. Resolved Problems Problem Noted Date Diagnosed Date Resolved Date Hypokalemia 10/30/2018 11/05/2018 Assessment & Plan (11/05/2018 2:53 PM EDT): Resolved Family History Medical History Relation Comments Stroke Brother Stroke Father Atrial fibrillation Mother Atrial fibrillation Sister Relation Status Comments Brother Alive Father (Age 68) Mother (Age 97) Sister Social History Tobacco Use Types Packs/Day Years Used Date Smoking Tobacco: Former Cigarettes 1 964 - 1986 Smokeless Tobacco: Never Tobacco Cessation:Counseling Given: Not Answered Alcohol Use Standard Drinks/Week Comments Not Currently [...] file Not on file Not on file Last Filed Vital Signs Vital Sign Reading Time Taken Comments Blood Pressure 100/52 03/19/2024 1:48 PM EST Pulse 92 03/19/2024 1:48 PM EST Temperature 35.8 C (96.4 F) 12/07/2023 10:44 AM EDT Respiratory Rate 18 12/07/2023 10:44 AM EDT Oxygen Saturation 94% 12/07/2023 10:44 AM EDT Inhaled Oxygen Concentration 21% 03/17/2021 4 :55 AM EST Weight 118.4 kg (261 lb) 03/19/2024 12:20 PM EST Height 160 cm (5' 3 ) 03/19/2024 12:20 PM EST Body Mass Index 46.23 03/19/2024 12:20 PM EST Plan of Treatment Upcoming Encounters Date Type Department Care Team (Latest Contact Info) Description 09/25/2024 [place] [facility] [place] [address] [address] 02/18/2025 1:00 PM EDT Appointment [facility] [place] [address] [address] Emmanuel Lyman MD 55 [facility] [id number] [place] [address] [email or web address] 02/18/2025 2:30 PM EDT Ancillary Procedure [facility] [facility] [address] [facility], 5th Floor, [address] [place] [address] Leni Gramajo, TOBACCO CONDITIONER [address] [address] [email or web address] 03/10/2025 10:40 AM EST Office Visit [facility] Rheumatology [address] [place] [address] Geraldine Jay MD, MPH 22 [facility], [address] [place] [address] [email or web address] Health Maintenance Due Date Last Done Comments TSH LEVEL 1945 HEMOGLOBIN A1C 09/01/2021 03/04/2021 DEPRESSION SCREENING 05/24/2022 05/24/2021 BLOOD PRESSURE 09/16/2024 03/19/2024 DIABETIC EYE EXAM 10/23/2024 10/24/2023 INFLUENZA VACCINE (#1) 2024 , 01/29/2022, 01/20/2021, Additional history exists POTASSIUM LEVEL 12/06/2024 12/07/2023, 09/28, 12/20/2021, Additional history exists COVID-19 VACCINE ( season) 2024 02/20/2023, 01/29/2022, 07/21/2021, Additional history exists SMOKING Hx and SMOKELESS TOBACCO SCREENING 03/19/2025 03/19/2024 CREATININE LEVEL 04/02/2025 04/02/2024, 12/2023, 10/16/2022, Additional history exists Adult Td,Tdap Booster 04/05/2033 04/05/2023 OSTEOPOROSIS SCREENING INITIAL (ONE-TIME) Completed 03/08/2017 ZOSTER VACCINES Completed 03/04/2018, 11/27/2017 RSV VACCINE Completed 02/04/2023 PNEUMOCOCCAL VACCINES (50+ years) Completed 04/05/2023, 02/10/2021, 06/29/2015 HEPATITIS A VACCINES Aged Out No long er eligible based on patient's age to complete this topic HIB VACCINES Aged Out No longer eligi ble based on patient's age to complete this topic MENINGOCOCCAL VACCINES (ACWY) Aged Out No longer eligible based on patient's age to complete this topic MENINGOCOCCAL VACCINES (B) Aged Out N o longer eligible based on patient's age to complete this topic Medical Devices Implanted Type Area Wood Patternmaker Apprentice Device Identifier Shelf Expiration Date Model / Serial / Lot Accurate Neo2 Aortic Valve Implanted:Qty: 1 on 03/16/2021 by Edil Mercedes MD at [facility] N/A: Heart 03/24/2021 [id number] 06-C / [id number] / Procedures Procedure Name Priority Date/Time Associated Diagnosis Comments CREATININE/EGFR Routine 04/02/2024 3:52 PM EST Type 2 diabetes mellitus without complication, unspecified whether halfway insulin use Age-related osteoporosis without current pathological fracture BASIC METABOLIC PANEL STAT 12/07/2023 1:17 AM EDT HEMOGLOBIN A1C Routine 03/04/2021 2:34 PM EDT Diabetes mellitus type 2, insulin dependent BD DXA AXIAL (SPINE) WITH HIP Routine 03/08/2017 1:14 PM EST At risk for osteoporosis from Last 3 Months or Most Recently Relevant to Health Maintenance Results * (ABNORMAL) Creatinine/eGFR (04/02/2024 3:52 PM EST) CREATININE 1.10 0.5 - 1.5 mg/dL [facility] EGFR 51(L) >59 mL/min/1.7 3m2 [facility] Comment:Estimated glomerular filtration rate calculated using the CKD-EPI refit equation. Blood 04/02/2024 3:52 PM EST 04/02/2024 4:03 PM EST us Patrice Jay MD LAB BLOOD ORDERABLES Fin al Result [address] [address] * (ABNORMAL) Basic metabolic panel (12/07/2023 1:17 AM EDT) SODIUM 142 133 - 146 mmol/L [facility] CHLORIDE 100 96 - 108 mmol/L [facility] POTASSIUM 4.3 3.3 - 5.1 mmol/L [facility] CO2 29 21 - 35 mmol/L [facility] BUN 24(H) 6 - 19 mg/dL [facility] CREATININE 1.20 0.5 - 1.5 mg/dL [facility] GLUCOSE 112(H) 70 - 99 mg/dL [facility] CALCIUM 9.5 8.4 - 10.3 mg/dL [facility] EGFR 46(L) >59 mL/min/1.7 3m2 [facility] Comment:Estimated glomerular filtration rate calculated using the CKD-EPI refit equation. ANION GAP 17 10 - 20 mmol/L [facility] Blood 12/07/2023 1:17 AM EDT 12/07/2023 1:19 AM EDT us Vy Johnson MD LAB BLOOD ORDERABLES Final R esult [facility] [address] [place] [address] * (ABNORMAL) Hemoglobin A1c (03/04/2021 2:34 PM EDT) HEMOGLOBIN A1C 7.9(H) 4.3 - 5.6 % [facility] Comment:HbA1c levels 5.7-6.4 % represent pre-diabetes, indicating impaired glucose control and an increased risk of developing diabetes compared with lower HbA1c levels. The diagnostic HbA1c level for diabetes is 6.5% or greater. CALC MEAN BLD GLUC 180 mg/dL [facility] Comment: There is no established normal range for the Calculated Mean Blood Glucose (CMBG), however a HbA1c of 5.6% (upper limit of normal) represents a CMBG of 114 mg/dL. The diagnostic hemoglobin A1c level for diabetes is greater than or equal to 6.5% which represents a CMBG greater than or equal to 140 mg/dL. 03/04/2021 2:34 PM EDT 03/04/2021 4:27 PM EDT us Gracia Banks [facility] [facility] LAB BLOOD ORDERABLES Tameka delgado Result [facility] [address] [place] [address] * BD DXA AXIAL (SPINE) WITH HIP (03/08/2017 1:14 PM EST) Anatomical Region Laterality Modality Bone Density Bone Density 03/08/2017 2:02 PM EST Impressions 03/08/2017 2:04 PM EST Normal bone mineral density at all three sites assessed. POS - [id number] Narrative 03/08/2017 2:04 PM EST COMPARISON: None [...] the right hip was calculated at 1.114 gm/bo9fgob a T-score of 1.4 falling within the WHO classification of normal.Z-score of 3.1. Total bone mineral density in the left hip was calculated at 1.062 gm/ry9icvw a T-score of 1.0 falling within the WHO classification of normal.Z-score of 2.6. IMPRESSION: Normal bone mineral density at all three sites assessed. POS - [id number] Omid Jimenes MD IM BD BONE DENSITY DEX A Final Result from Last 3 Months or Most Recently Relevant to Health Maintenance Insurance MEDICARE PART A & B [facility] MEDICARE SUPPLEMENT MEDICARE PART A & B [facility] MEDICARE SUPPLEMENT MEDICARE PART A & B [facility] MEDICARE SUPPLEMENT MEDICARE PART A & B [facility] MEDICARE SUPPLEMENT MEDICARE PART A & B [employer] MEDICARE SUPPLEMENT MEDICARE PART A & B [employer] EXTENSION MEDICARE SUPPLEMENT MEDICARE PART A & B [facility] MEDICARE SUPPLEMENT MEDICARE PART A & B [employer] MEDICARE SUPPLEMENT MEDICARE PART A & B [employer] EXTENSION MEDICARE SUPPLEMENT Advance Directives For more information, please contact: [phone] (9AM - 5PM [facility], Sunday-Sunday) Documents on File Type Date Recorded Patient Parts Back Counter Man Expl anation Healthcare Proxy 03/18/2021 4:58 PM MOLST 12/13/2018 11:23 AM dated 10/28 Durable Power of Orthopaedic General 11/11/2018 4:23 PM * Full Code (Latest Code Status on File) Date Activated Date Inactivated Comments 03/16/2021 1:25 PM Question Answer Comments Code Status Confirmed With: Patient * Full Code (Confirmed) Date Activated Date Inactivated Comments 12/26/2018 8:17 AM 12/27/2018 12:17 PM Question Answer Comments Code Status Confirmed With: Patient * Full Code (Confirmed) Date Activated Date Inactivated Comments 12/09/2018 4:50 PM 12/12/2018 5:42 PM Question Answer Comments Code Status Confirmed With: PatientFamily Code Discussion Comments: MOLST in chart * Full Code (Presumed) Date Activated Date Inactivated Comments 10/30/2018 10:29 PM 11/08/2018 4:39 PM Healthcare Agents on File Name Relationship Healthcare Agent Relationshi p Communication Vince Alarcon Son Alternate Health care Agent (Proxy form on file) [email or web address] Nanda Fishman Spouse .Primary Health Care Agent (Proxy form on file) [phone] (Mobile) Care Teams Makeup Editor Relationship Specialty Start Date End Date Omid Jimenes MD [address] [place] [address] [place] [address] PCP - General 10/28/13 Omid Jimenes MD [address] [place] [address] [place] [address] Historical LMR Provider 02/15/17 Emmanuel Lyman MD [address] [place] [address] [id number] [place] [address] [email or web address] Simulation Technician Cardiology 11/22/20 Lizandro Guallpa MD [address] [place] [address] [id number] [place] [address] [email or web address] 03/03/21 Cameron Vital MD, MSc [address] [place], [place] [id number] [place] [address] [email or web address] Simulation Technician Cardiology 03/03/21 Additional Source Comments The information contained in this document represents components of the legal health record. It is not the complete legal health record.[facility]
--- OUTSIDE RECORDS SUMMARY | 2025-01-21 12:10 | XMS_ITS | Encounter Summary ---
Author Organization [facility] Address [address] [place] [address] Phone Care Team Providers Care Professional Services Specialist Name Role Phone Omid Jimenes MD Primary Care Provider Omid Jimenes MD Unavailable [phone] Emmanuel Lyman MD Unavailable [phone] Lizandro Guallpa MD Unavailable Cameron Vital MD, MSc Unavailable [phone] Encounter Details Date Type Department Care Team (Late st Contact Info) Description 11/27/2023 Procedure Pass [facility] Cardiac US [address] [place] [address] Social History Tobacco Use Types Packs/Day Years [...] (Latest Contact Info) Description 09/25/2024 Procedure Pass [facility] Cardiac [address] [address] 02/18/2025 1:00 PM EDT Appointment [facility] Cardiac US [address] [place] [address] Emmanuel Lyman MD 55 [facility] [id number] [place] [address] [email or web address] 02/18/2025 2:30 PM EDT Ancillary Procedure [facility] [address] [facility], 5th Floor, [address] [place] [address] Leni Gramajo, PRODUCTION INSPECTOR 55 [facility] [address] [place] [address] [email or web address] 03/10/2025 10:40 AM EST Office Visit [facility] Rheumatology [address] [place] [address] Geraldine Jay MD, MPH 22 [facility], [address] [place] [address] [email or web address] documented as of this encounter Visit Diagnoses Not on filedocumented in this encounter Additional Health Concerns Infection Onset Date Last Indicated Resolved Time CoV-Risk 12/07/2023 12/07/2023 12/18/2023 1:22 AM EDT Assessment Noted Time PHQ-9 Depression Total Score: 3 05/24/19 22 2:24 PM EST documented as of this encounter Care Teams Professional Services Specialist Relationship Specialty Start Date End Date Omid Jimenes MD [address] [place] [address] Dr COBB [address] [place] [address] PCP - General 10/28/13 Omid Jimenes MD [address] [place] [address] [place] [address] Historical LMR Provider 02/15/17 Emmanuel Lyman MD [address] [place] [address] [id number] [place] [address] [email or web address] Mobile Electronics Installer Cardiology 11/22/20 Lizandro Guallpa MD [address] [place] [address] [id number] [place] [address] [email or web address] 03/03/21 Cameron Vital MD, MSc [address] [place] [address] [id number] [place] [address] [email or web address] Mobile Electronics Installer Cardiology 03/03/21 documented as of this encounter Additional Source Comments The information contained in this document represents components of the legal health record. It is not the complete legal health record.[facility]
--- OUTSIDE RECORDS SUMMARY | 2025-01-21 12:10 | XMS_ITS | Encounter Summary ---
Author Organization [facility] Address [address] [place] [address] Phone Care Team Providers Care Scrubber System Attendant Name Role Phone Omid Jimenes MD Primary Care Provider Omid Jimenes MD Unavailable [phone] Emmanuel Lyman MD Unavailable [phone] Lizandro Guallpa MD Unavailable Cameron Vital MD, MSc Unavailable [phone] Encounter Details Date Type Department Care Team (Latest Contact Info) Description 01/05/2023 Transcribe Orders Virtual Department [address] [place], [place] [id number] Hector Scherer MD [address] [place], [place] [id number] Arthrodesis status (Primary Dx) Social History Tobacco Use Types [...] Procedure Pass [facility] [place] [address] [place] [address] 02/18/2025 1:00 PM EDT Appointment [facility] [place] [address] [place] [address] Emmanuel Lyman MD 55 [facility] [id number] [place] [address] [email or web address] 02/18/2025 2:30 PM EDT Ancillary Procedure [facility] [place] [facility] [address] [facility], 5th Floor, [address] [place] [address] Leni Gramajo, ELIS [address] [facility] [address] [place] [address] [email or web address] 03/10/2025 10:40 AM EST Office Visit [facility] Rheumatology [address] [place], [place] [id number] Geraldine Jay MD, MPH [address] [facility], [address] [place] [address] [email or web address] documented as of this encounter Results * XR CERVICAL SPINE 2-3 VIEWS (01/12/2023 10:15 AM EDT) Anatomical Region Laterality Modality C-spine Computed Radiogr aphy 01/13/2023 11:3 3 PM EDT Impressions 01/13/2023 11:34 PM EDT Interval postsurgical changes from C5-6 and C6-7 ACDF. Severe facet and uncovertebral predominate degenerative change. Bones demineralized. Narrative 01/13/2023 11:34 PM EDT XR CERVICAL SPINE 2-3 VIEWS COMPARISON: MRI SPINE CERVICAL WO FINDINGS: ALIGNMENT: 2 mm C3-4 anterolisthesis. 4 mm C4-5 anterolisthesis. Open-mouth view demonstrates normal alignment of the C1-C2 lateral masses. VERTEBRAE: Post surgical changes from C5-6 and C6-7 ACDF with interbody fusion devices. Vertebral body heights preserved. DISCS: Disc height loss with endplate sclerosis and marginal osteophytes at C4- 5. C7-T1 disc space obscured. FACETS: Facet and uncovertebral arthropathy at all levels. PARASPINAL SOFT TISSUES: Within normal limits. Procedure Note Neri Carmona MD - 01/13/2023 XR CERVICAL SPINE 2-3 VIEWS COMPARISON: MRI SPINE CERVICAL WO FINDINGS: ALIGNMENT: 2 mm C3-4 anterolisthesis. 4 mm C4-5 anterolisthesis.Open-mouth view demonstrates normal alignment of the C1-C2 lateralmasses. VERTEBRAE: Post surgical changes from C5-6 and C6-7 ACDF with interbodyfusion devices. Vertebral body heights preserved. DISCS: Disc height loss with endplate sclerosis and marginal osteophytesat C4-5. C7-T1 disc space obscured. FACETS: Facet and uncovertebral arthropathy at all levels. PARASPINAL SOFT TISSUES: Within normal limits. IMPRESSION: Interval postsurgical changes from C5-6 and C6-7 ACDF. Severe facet and uncovertebral predominate degenerative change. Bones demineralized. Hector Scherer MD IMG XR SPINE Final Re sult documented in this encounter Visit Diagnoses Diagnosis Arthrodesis status- Primary Arthrodesis status documented in this encounter Additional Health Concerns Infection Onset Date Last Indicated Resolved Time CoV-Risk 12/07/2023 12/07/2023 12/18/2023 1:22 AM EDT Assessment Noted Time PHQ-9 Depression Total Score: 3 05/24/19 2:24 PM EST documented as of this encounter Care Teams Scrubber System Attendant Relationship Specialty Start Date End Date Omid Jimenes MD [address] [place] [address] Dr COBB [address] [place] [address] PCP - General 10/28/13 Omid Jimenes MD [address] [place] [address] Dr COBB [address] [place] [address] Historical LMR Provider 02/15/17 Emmanuel Lyman MD [address] [place] [address] [id number] [address] [email or web address] Drafter Civil Cardiology 11/22/20 Lizandro Guallpa MD [address] [place] [address] [id number] [place] [address] [email or web address] 03/03/21 Cameron Vital MD, MSc [address] [place] [address] [id number] [place] [address] [email or web address] Drafter Civil Cardiology 03/03/21 documented as of this encounter Additional Source Comments The information contained in this document represents components of the legal health record. It is not the complete legal health record.[facility]
--- OUTSIDE RECORDS SUMMARY | 2025-01-21 12:10 | XMS_ITS | Encounter Summary ---
Author Organization [facility] Address [address] [place] [address] Phone Care Team Providers Care Pile Trimmer Name Role Phone Omid Jimenes MD Primary Care Provider Omid Jimenes MD Unavailable [phone] Emmanuel Lyman MD Unavailable [phone] Lizandro Guallpa MD Unavailable Cameron Vital MD, MSc Unavailable [phone] Encounter Details Date Type Department Care Team (Late st Contact Info) Description 04/06/2023 Procedure Pass [facility] Holter Lab [address], 5th Floor, [address] [place] [address] Social History Tobacco Use Types Packs/Day Years [...] (Latest Contact Info) Description 09/25/2024 Procedure Pass [facility] Cardiac [address] [address] 02/18/2025 1:00 PM EDT Appointment [facility] Cardiac US [address] [place] [address] Emmanuel Lyman MD [address] [facility] [id number] [place] [address] [email or web address] 02/18/2025 2:30 PM EDT Ancillary Procedure [facility] [address], 5th Floor, [address] [place] [address] Leni Gramajo, ELIS [address] [facility] [address] [place] [address] [email or web address] 03/10/2025 10:40 AM EST Office Visit [facility] Rheumatology [address] [place] [address] Geraldine Jay MD, MPH [address] [facility], [address] [place] [address] documented as of this encounter Visit Diagnoses Not on filedocumented in this encounter Additional Health Concerns Infection Onset Date Last Indicated Resolved Time CoV-Risk 12/07/2023 12/07/2023 12/18/2023 1:22 AM EDT Assessment Noted Time PHQ-9 Depression Total Score: 3 05/24/19 2:24 PM EST documented as of this encounter Care Teams Pile Trimmer Relationship Specialty Start Date End Date Omid Jimenes MD [address] [place] [address] Dr [address] [place] [address] PCP - General 10/28/13 Omid Jimenes MD [address] [place] [address] Dr CO[address] [place] [address] Historical LMR Provider 02/15/17 Emmanuel Lyman MD [address] [place] [address] [id number] [place] [address] [email or web address] Precipitate Washer Cardiology 11/22/20 Lizandro Guallpa MD [address] [facility] [id number] [place] [address] [email or web address] Rheumatology 03/03/21 Cameron Vital MD, MSc [address] [place] [address] [id number] [place] [address] [email or web address] Precip[facility] Cardiology 03/03/21 documented as of this encounter Additional Source Comments The information contained in this document represents components of the legal health record. It is not the complete legal health record.[facility]
--- OUTSIDE RECORDS SUMMARY | 2025-01-21 12:10 | XMS_ITS | Encounter Summary ---
Author Organization [facility] Address [address] [place] [address] Phone Care Team Providers Care Tile Layer Supervisor Name Role Phone Omid Jimenes MD Primary Care Provider Omid Jimenes MD Unavailable [phone] Emmanuel Lyman MD Unavailable [phone] Lizandro Guallpa MD Unavailable Cameron Vital MD, MSc Unavailable [phone] Encounter Details Date Type Department Care Team (Late st Contact Info) Description 05/27/2021 Procedure Pass [facility], [address] [place] [address] Social History Tobacco Use Types Packs/Day Years [...] (Latest Contact Info) Description 09/25/2024 Procedure Pass [facility] Cardiac US [address] [place] [address] 02/18/2025 1:00 PM EDT Appointment [facility] Cardiac US [address] [place] [address] Emmanuel Lyman MD [address] [facility] [address] [id number] [place] [address] [email or web address] 02/18/2025 2:30 PM EDT Ancillary Procedure [facility] [address] [facility], 5th Floor, [address] [place] [address] Leni Gramajo, AUTOMOTIVE ALIGNMENT SPECIALIST [address] [facility] [address] 8 [place] [address] [email or web address] 03/10/2025 10:40 AM EST Office Visit [facility] Rheumatology [address] [place] [address] Geraldine Jay MD, MPH [address] [place] [address], [address] [place] [address] [email or web address] documented as of this encounter Visit Diagnoses Not on filedocumented in this encounter Additional Health Concerns Infection Onset Date Last Indicated Resolved Time CoV-Risk 12/07/2023 12/07/2023 12/18/2023 1:22 AM EDT Assessment Noted Time PHQ-9 Depression Total Score: 3 05/24/19 2:24 PM EST documented as of this encounter Care Teams Tile Layer Supervisor Relationship Specialty Start Date End Date Omid Jimenes MD [address] [place] [address] [place] [address] PCP - General 10/28/13 Omid Jimenes MD [address] [place] [address] [place] [address] Historical LMR Provider 02/15/17 Emmanuel Lyman MD [address] [place] [address] [id number] [place] [address] [email or web address] Portuguese Tutor Cardiology 11/22/20 Lizandro Guallpa MD [address] [place] [address] [id number] [place] [address] [email or web address] Rheumatology 03/03/21 Cameron Vital MD, MSc [address] [place] [address] [id number] [place] [address] [email or web address] Portuguese Tutor Cardiology 03/03/21 documented as of this encounter Additional Source Comments The information contained in this document represents components of the legal health record. It is not the complete legal health record.[facility]
--- OUTSIDE RECORDS SUMMARY | 2025-01-21 12:10 | XMS_ITS | Encounter Summary ---
Author Organization [facility] Address [address] [facility] [address] [place] [address] Phone Care Team Providers Care Page Technician Name Role Phone Omid Jimenes MD Primary Care Provider Ramsey Ortez MD Unavailable [email or web address] Omid Jimenes MD Unavailable [phone] Emmanuel Lyman MD Unavailable [phone] Lizandro Guallpa MD Unavailable Cameron Vital MD, MSc Unavailable [phone] Encounter Details Date Type Department Care Team (Late st Contact Info) Description 02/14/2021 Procedure Pass [facility] Cardiac US [address] [place] [address] Social History Tobacco Use Types Packs/Day Years [...] Contact Info) Description 09/25/2024 Procedure Pass [facility] Cardiac US [address] [place] [address] 02/18/2025 1:00 PM EDT Appointment [facility] Cardiac US [address] [place] [address] Emmanuel Lyman MD [address] [facility] [address] [id number] [place] [address] [email or web address] 02/18/2025 2:30 PM EDT Ancillary Procedure [facility] [address] [facility], 5th Floor, [address] [place] [address] Leni Gramajo, APPLICATIONS MANAGER [address] [facility] [address] [place] [address] [email or web address] 03/10/2025 10:40 AM EST Office Visit [facility] Rheumatology [address] [place] [address] [place] [address] Geraldine Jay MD, MPH [address] [facility], [address] [place] [address] [email or web address] documented as of this encounter Visit Diagnoses Not on filedocumented in this encounter Additional Health Concerns Infection Onset Date Last Indicated Resolved Time CoV-Risk 12/07/2023 12/07/2023 12/18/2023 1:22 AM EDT documented as of this encounter Care Teams Page Technician Relationship Specialty Start Date End Date Omid Jimenes MD [address] [place] [address] [place] [address] PCP - General 10/28/13 Ramsey Ortez MD [email or web address]. [facility] Historical LMR Provider 02/15/17 03/02/21 Omid Jimenes MD [address] [facility] [address] [place] [address] Historical LMR Provider 02/15/17 Emmanuel Lyman MD [address] [place] [address] [id number] [place] [address] [email or web address] Veneer Puller Cardiology 11/22/20 Lizandro Guallpa MD [address] [place] [address] [id number] [place] [address] [email or web address] Rheumatology 03/03/21 Cameron Vital MD, MSc [address] [place] [address] [id number] [place] [address] [email or web address].[email or web address] Veneer Puller Cardiology 03/03/21 documented as of this encounter Additional Source Comments The information contained in this document represents components of the legal health record. It is not the complete legal health record.[facility]
--- OUTSIDE RECORDS SUMMARY | 2025-01-21 12:11 | XMS_ITS | Encounter Summary ---
Author Organization [facility] Address [address] [facility] [address] [place] [address] Phone Care Team Providers Care World Designer Name Role Phone Omid Jimenes MD Primary Care Provider Omid Jimenes MD Unavailable [phone] Emmanuel Lyman MD Unavailable [phone] Lizandro Guallpa MD Unavailable Cameron Vital MD, MSc Unavailable [phone] Encounter Details Date Type Department Care Team (Late st Contact Info) Description 04/26/2021 Procedure Pass [facility] Cardiac US [address] [place] [address] Social History Tobacco Use Types Packs/Day Years [...] (Latest Contact Info) Description 09/25/2024 Procedure Pass [facility] Cardiac US [address] [place] [address] 02/18/2025 1:00 PM EDT Appointment [facility] Cardiac US 55 [place] [address] Emmanuel Lyman MD [address] [facility] [address] [id number] [place] [address] [email or web address] 02/18/2025 2:30 PM EDT Ancillary Procedure [facility] [address] [facility], 5th Floor, [address] [place] [address] Leni Gramajo, ELIS [address] [facility] [place] 8 [place] [address] [email or web address] 03/10/2025 10:40 AM EST Office Visit [facility] Rheumatology [address] [place] [address] Geraldine Jay MD, MPH [address] [facility], [address] [place] [address] [email or web address] documented as of this encounter Visit Diagnoses Not on filedocumented in this encounter Additional Health Concerns Infection Onset Date Last Indicated Resolved Time CoV-Risk 12/07/2023 12/07/2023 12/18/2023 1:22 AM EDT Assessment Noted Time PHQ-9 Depression Total Score: 3 05/24/19 22 2:24 PM EST documented as of this encounter Care Teams World Designer Relationship Specialty Start Date End Date Omid Jimenes MD [address] [place] [address] [place] [address] PCP - General 10/28/13 Omid Jimenes MD [address] [place] [address] [place] [address] Historical LMR Provider 02/15/17 Emmanuel Lyman MD [address] [place] [address] [id number] [place] [address] [email or web address] Journeyman Pressman Cardiology 11/22/20 Lizandro Guallpa MD [address] [place] [address] [id number] [place] [address] [email or web address] Rheumatology 03/03/21 Cameron Vital MD, MSc [address] [place], [place] [id number] [place] [address] [email or web address].[email or web address] Journeyman Pressman Cardiology 03/03/21 documented as of this encounter Additional Source Comments The information contained in this document represents components of the legal health record. It is not the complete legal health record.[facility]
--- OUTSIDE RECORDS SUMMARY | 2025-01-21 12:11 | XMS_ITS | Patient Health Record ---
Author Organization Cameron Monge MD Address [address] [place] [address] Support Name Relationship Address Phone Kye Vy Guarantor Unknown [phone] Allergies Allergen (clinical drug ingredient) Drug/Non Drug [...] Notes Problem Spinal stenosis of lumbar region (60871763) Spinal stenosis of lumbar region (724.02) Active confirmed Problem Lumbosacral spondylosis without myelopathy (23742748) Lumbosacral spondylosis without myelopathy (721.3) Active confirmed Plan Of Treatment No Information Insurance Providers Payer Name Payer Address Payer Phone Subscriber Number Group Number Insured Name Patient Relationship to Insured Coverage Start Date Coverage End Date [facility] [address] [place], [place] [address] [id number] Vy Fishman Self - patient is the insured [facility] [id number] Vy Fishman Self - patient is the insured Medical (General) History Medical History History ICD Code DM hypothyrodism asthma right retinal vein occlusion HTN HPL Fe def anemia Surgical History Surgery Date(Month/Year) bilateral TKR 2009 bilateral cataract surgery 2011
--- OUTSIDE RECORDS SUMMARY | 2025-01-21 12:11 | XMS_ITS | Clinical Summary ---
Author Organization [facility] Address [address] [address] Care Team Providers Care Offset Printing Pressmen Name Role Phone Omid Jimenes MD Primary Care Provider Allergies Active Allergy Reactions Criticality Noted Date Comments Atorvastatin Other (see comments) 10/30/2018 Cramps Bacitracin Other (see comments),Swelling 06/15/2017 Cephalexin 06/07/2020 Thinks it may have made rash worse Charentais Melon (Irish Melon) Rash Low 11/01/2018 Erythromycin Other (see [...] mouth in the morning. 9 Active Tiotropium [place] Monohydrate (Spiriva Respimat) 1.25 MCG/ACT aerosol solution [...] and able she would consider consultation in [place] right now she feels that the pain [...] for shortness of breath. Outpatient management with assembler piano Dr. Berrios. No current symptoms. Breathing comfortably. [...] & Plan: Patient has been residing at [place] [facility] care for some time now. [...] Patient is followed by by an outside learning strategist. She is been maintained on Lasix 40 [...] long-term relief and she will contact the commercial painter for consideration of a corticosteroid epidural [...] 50% of this 20-minute visit was spent stwc-no-skqa conversation with the patient and her present coordinating my care with out of her primary care physician as well as her orthopedic surgeon and commercial painter. Last Assessment & Plan: This continues [...] of this 29-minute visit was spent in ihsc-di-qqml conversation with the patient and her present [...] Medications are be left unchanged and enlarged polymerization supervisor on tools and utensils and be used [...] intra-articular steroid injection in future if necessary. Immunizations Immunization Administration Dates Next Due Influenza [...] Care Team (Late st Contact Info) Description 03/30/2025 3:45 PM EST Office Visit [facility] [address] [place] [address] Lewis Cohen MD [address] [facility] [address] [place] [address] Health Maintenance Due Date Last Done Comments Pneumococcal Vaccine: 50+ Years (2 of 2 - PCV) 06/28/2016 06/29/2015, 02/17/2013, 04/02/2012, Additional history exists Diabetes: Hemoglobin A1C 05/28/2020 02/02/2020 Diabetes: Pedal Pulse Checked 05/28/2020 Diabetes: Sensory Foot Exam 05/28/2020 Diabetes: Visual Foot Exam 05/28/2020 Influenza Vaccine (#1) 2024 , 03/05/2017, 03/20/2016, Additional history exists Diabetes: Ophthalmology Exam 11/05/2025 11/05/2024, 10/24/2023 Hepatitis B Vaccine Aged Out 09/27/1993, 04/26/1993, [...] mg/dl PVNMA 02/02/2020 us [facility] Conversion LAB [id number] LICITED RESULTS Final Result PVNMA from Last 3 Months or Most Recently Relevant to Health Maintenance Insurance Medicare [facility], [facility]–1983 Medicare [facility], [facility]–1983 Care Teams Offset Printing Pressmen Relationship Specialty Start Date End Date Omid Jimenes MD [address] [place] [address] [id number] [place], [place] PCP - General 05/10/20
== END 2025-01-21 10:19 | disposition home or self-care (01) ==
LOC: HO.PMC 09:58
PROVIDERS: PCP Internal Medicine; Visit Provider Internal Medicine
DX: M81.0 Age-related osteoporosis without current pathological fracture (principal); M19.011 Primary osteoarthritis, right shoulder; M19.012 Primary osteoarthritis, left shoulder; M54.9 Dorsalgia, unspecified; G89.4 Chronic pain syndrome
CPT/HCPCS: 99214

== ENCOUNTER → 2025-01-21 09:58 | Outpatient (BNVA) | payer MEDICARE, OTHER, SELFPAY | PROVIDERS: PCP Internal Medicine; Visit Provider Internal Medicine | DX: M81.0 Age-related osteoporosis without current pathological fracture (principal); M19.011 Primary osteoarthritis, right shoulder; M19.012 Primary osteoarthritis, left shoulder; M54.9 Dorsalgia, unspecified; G89.4 Chronic pain syndrome; E66.01 Morbid (severe) obesity due to excess calories; Z68.39 Body mass index [BMI] 39.0-39.9, adult; Z87.891 Personal history of nicotine dependence | CPT/HCPCS: 99212 ==

== ENCOUNTER 2025-02-16 10:39 | Outpatient (AMB) | payer MEDICARE, OTHER, SELFPAY ==
--- NOTE | 2025-02-16 10:50 | MHC.OFFVIS ---
Vital Signs 02/16/25 10:52 Height 5 ft 6.25 in Weight 245 lb BMI 39.2 BP 132/88 Blood Pressure Location Lt radial Position Sitting Respiration 18 Pulse 104 H Pulse Source Pulse Oximeter Pulse Oximetry (%) 89 L Oxygen Delivery Method Room Air Intake Visit Reasons: Left Shoulder Inj/Pill Count Intake Note: Pt states she last took vicodin 02/16/25 @ 8am Basket Hand Braider Required: No Embedded Software Architect: Embedded Software Architect Present Accompanied by: Marco Real Allergies cephalexin (From Keflex) Allergy (Severe, Verified 02/16/25 10:54) Itching pravastatin (Pravachol) Allergy (Severe, Verified 02/16/25 10:54) cramps bacitracin Adverse Reaction (Severe, Verified 02/16/25 10:54) eye swelling dexamethasone (TobraDex) Adverse Reaction (Severe, Verified 02/16/25 10:54) redness swelling tobramycin (TobraDex) Adverse Reaction (Severe, Verified 02/16/25 10:54) redness swelling Sulfa (Sulfonamide Antibiotics) Adverse Reaction (Intermediate, Verified 02/16/25 10:54) GI upset atorvastatin (From Lipitor) Adverse Reaction (Verified 02/16/25 10:54) Unknown Beef Containing Products Adverse Reaction (Verified 02/16/25 10:54) Unknown erythromycin base Adverse Reaction (Verified 02/16/25 10:54) Unknown Penicillins (PCN) Adverse Reaction (Verified 02/16/25 10:54) Unknown sulfacetamide (From Sulfacet-R) Adverse Reaction (Verified 02/16/25 10:54) Unknown sulfur (From Sulfacet-R) Adverse Reaction (Verified 02/16/25 10:54) Unknown topiramate (From Topamax) Adverse Reaction (Verified 02/16/25 10:54) Unknown Medication List - Last Reconciled 02/16/25 by Naz Simpson LPN albuterol sulfate 90 mcg/actuation 2 puffs PO Q4H albuterol sulfate 2.5 mg (3 mL) inhalation Q4H PRN allopurinol 100 mg PO DAILY aspirin 81 mg PO DAILY atorvastatin 20 mg PO DAILY azelastine-fluticasone 137-50 mcg/spray 1 spray intranasal BID 30 days bepotastine besilate 1.5% (Bepreve) 1 drp ophthalmic (eye) DAILY PRN calcitriol mcg PO chlorhexidine gluconate 0.12% 15 mL buccal DAILY 30 days cholecalciferol (vitamin D3) (Vitamin D3) 25 mcg PO DAILY doxycycline hyclate 100 mg PO BID 10 days duloxetine 60 mg PO DAILY epinephrine 0.3 mL IM ONCE PRN ferrous sulfate (FeroSul) 325 mg PO DAILY fluticasone propionate 220 mcg/actuation 2 puffs inhalation BID furosemide (Lasix) 80 mg PO BID 30 days gabapentin 100 mg PO .AM gabapentin 400 mg PO BEDTIME hydrocodone-acetaminophen 10-325 mg 1 tab PO BID PRN insulin glargine units subcut levothyroxine 75 mcg PO DAILY meclizine 25 mg PO BID PRN mepolizumab 100 mg subcut Q4W nystatin 1 appl topical BID omeprazole 20 mg PO DAILY potassium chloride ER 10 mEq PO BID Saccharomyces boulardii (Florastor) 250 mg PO BID sitagliptin phosphate 100 mg PO DAILY tiotropium bromide 1.25 mcg/actuation inhalation tirzepatide (Mounjaro) 2.5 mg subcut QWEEK trazodone 50 mg PO BEDTIME PRN valsartan 40 mg PO DAILY HPI HPI Left Shoulder Inj/Pill Count: Details: History of Present Illness The patient is an 79-year-old female presenting with glenohumeral joint pain. The pain has been persistent, necessitating a glenohumeral joint injection for relief. [facility] Medical History (Updated 11/27/24 @ 12:07 by Julissa Ayers APRN, ENCEPHALOGRAPHER) COPD (chronic obstructive pulmonary disease) Morbid obesity Acute systolic congestive heart failure Osteoporosis Dyspnea Chronic pain syndrome Gouty arthritis Arthritis of both glenohumeral joints Neurogenic claudication due to lumbar spinal stenosis Asthma CLEVE on CPAP Chronic restrictive lung disease Tracheitis Dyspnea Surgical History Status post cervical spinal fusion History of eyelid surgery History of knee replacement History of cholecystectomy Family History Father HTN (hypertension) Stroke Diabetes Mother Atrial fibrillation HTN (hypertension) Social History Alcohol intake: never Patient Tobacco Use Status: Former Tobacco user Tobacco use type: Cigarette Years Smoked: 20 years Second Hand Smoke Exposure: No Physical Exam Vital Signs: Last Vital Signs Pulse 104 H 02/16/25 10:52 Resp 18 02/16/25 10:52 BP 132/88 02/16/25 10:52 Pulse Ox 89 L 02/16/25 10:52 Oxygen Delivery Method Room Air 02/16/25 10:52 BMI result Body Mass Index 39.2 Office Procedures AMB Joint Injection/Aspiration Joint Injection/Aspiration Primary Site: left shoulder Prep: site was prepped using sterile technique Injected: 40 mg of, Kenalog, with 3 mL of (ropivacaine 0.25%) and in the joint Approach Used: posterolateral (US guided) Procedure: The patient tolerated the procedure well Coding Details: mage - Glenohumeral with ultrasound guidance Procedure code (CPT) selection complete Assessment & Plan Assessment & Plan (1) Arthritis of both glenohumeral joints: Code(s): M19.011 - Primary osteoarthritis, right shoulder; M19.012 - Primary osteoarthritis, left shoulder Category: Medical Plan Plan Patient was informed and verbally consented to the use of an ambient scribe for clinic note documentation during this visit. 1. Glenohumeral Joint Pain - S/p a glenohumeral joint injection for pain relief. 2. Chronic pain - Pill count consistent; vicodine refilled Discussion Notes I discussed the procedure of the glenohumeral joint injection with the patient, including the use of ultrasound guidance and the medications involved. The patient was informed about the expected outcomes and potential risks, and consent was obtained prior to the procedure. Medications: Changed From hydrocodone-acetaminophen 10-325 mg Partial Fill upon patient request. Chris refill per MD. 1 tab PO BID PRN 60 tabs 0RF pain To hydrocodone-acetaminophen 10-325 mg Partial Fill upon patient request. 1 tab PO BID PRN 60 tabs 0RF pain Coding Level of Care Code Est Pt Level 3 (84173) Diagnoses Arthritis of both glenohumeral joints M19.011; M19.012 CPT Codes Coding - Joint 8: - Glenohumeral with ultrasound guidance ([id number])
[2025-02-16 10:52] VITALS: BP 132/88; PULSE 104; RESP 18; O2SAT 89; BMI 39.2
== END 2025-02-16 11:36 | disposition home or self-care (01) ==
LOC: HO.PMC 10:40
PROVIDERS: PCP Internal Medicine; Visit Provider Internal Medicine
DX: M19.011 Primary osteoarthritis, right shoulder (principal); M19.012 Primary osteoarthritis, left shoulder
CPT/HCPCS: 20611; 99213

== ENCOUNTER → 2025-02-16 10:39 | Outpatient (BNVA) | payer MEDICARE, OTHER, SELFPAY | PROVIDERS: PCP Internal Medicine; Visit Provider Internal Medicine | DX: M19.012 Primary osteoarthritis, left shoulder (principal); M19.011 Primary osteoarthritis, right shoulder; G89.29 Other chronic pain; Z79.891 Long term (current) use of opiate analgesic | CPT/HCPCS: 20611; 99212; J2795; J3301 ==

== ENCOUNTER 2025-03-03 16:03 | Outpatient (REF) | payer MEDICARE, OTHER, SELFPAY ==
--- OUTSIDE RECORDS SUMMARY | 2023-12-10 08:30 | XMS_ITS ---
Author Organization [facility] Address [address] [place] [address] Care Team Providers Care Product Sales Representative Name Role Phone Omid Jimenes MD Primary Care Provider Sushila Campos Unavailable [phone] Alexis Huitron Unavailable [phone] REASON FOR VISIT Painful nail(s) aggrevated by shoes and causing difficulty standing/walking., PCP - 02/2023 Encounters Encounter Location Date Provider Diagnosis [facility] [address] [place] [address] 12/10/2023 Alexis Huitron Type 1 diabetes mellitus with diabetic polyneuropathy E10.42 ; Tinea unguium B35.1 ; Ingrowing nail L60.0 ; Pain in right toe(s) M79.674 ; Pain in left toe(s) M79.675 ; Hallux valgus (acquired), left foot M20.12 ; Hallux valgus (acquired), right foot M20.11 ; Eczema, unspecified type L30.9 ; Xerosis cutis L85.3 ; Other hammer toe(s) (acquired), right foot M20.41 ; Other hammer toe(s) (acquired), left foot M20.42 ; Achilles tendinitis, right leg M76.61 and Achilles tendinitis, left leg M76.62 Assessments Encounter Date Diagnosis (ICD Code) Assessment Notes Treatment Notes Treatment Clinical Notes Section Notes 12/10/2023 Type 1 diabetes mellitus with diabetic polyneuropathy (ICD-10 - E10.42) 12/10/2023 Tinea unguium (ICD-10 - B35.1) 12/10/2023 Ingrowing nail (ICD-10 - L60.0) 12/10/2023 Pain in right toe(s) (ICD-10 - M79.674) 12/10/2023 Pain in left toe(s) (ICD-10 - M79.675) 12/10/2023 Hallux valgus (acquired), left foot (ICD-10 - M20.12) 12/10/2023 Hallux valgus (acquired), right foot (ICD-10 - M20.11) 12/10/2023 Eczema, unspecified type (ICD-10 - L30.9) 12/10/2023 Xerosis cutis (ICD-10 - L85.3) 12/10/2023 Other hammer toe(s) (acquired), right foot (ICD-10 - M20.41) 12/10/2023 Other hammer toe(s) (acquired), left foot (ICD-10 - M20.42) 12/10/2023 Achilles tendinitis, right leg (ICD-10 - M76.61) 12/10/2023 Achilles tendinitis, left leg (ICD-10 - M76.62) Plan Of Treatment Next Appt Details Follow Up: 2 Months, 3 Month s, Reason: Provider Name:Sushila brasher, 03/05/2025 10:15:00 AM, [address] [place] [address], [phone], Provider Name:Sushila brasher, 05/07/2025 03:15:00 PM, [address] [place] [address], [phone], Procedure Notes * Category Sub-Category Detail Notes Debride Nail 6-10 Nail debridement Nail debridem ent performed extensively to reduce/remove overall nail length and girth, subungual debris, and necrotic tissue, by manual and electrical means with use of a nail nipper and/or dremel, to more viable healthy nail plate or bed tissue 6-10. Silver nitrate used for any petechial bleeding as necessary. Patient chooses, no pharmaceutical tx ([id number]) Keratoma Treatment Parring or Cutting o f Benign Hyperkeratotic Lesion(s) 39726 (2-4 Lesions) - The Benign hyperkeratotic lesions, as described above were pared, and/or cut utilizing a sterile #15 blade, tissue nippers, and/or dremel Progress Notes * Vy FISHMAN LDOB:1945 (79 yo F)Acc No.[id number]:12/10/2023 Progress Note Patient: Vy VILLAFANA Provider: Madison Martinez DPM :1945 A ge:78 Y S ex:Female Date:12/10/2023 [facility], [id number] Pcp:Omid Jimenes MD Subjective: * Chief Complaints: * 1 . Painful nail(s) aggrevated by shoes and causing difficulty standing/walking.. 2. PCP - 02/2023. * HPI: P ainful Nails: Pt States Last PCP Visit: D ate: 0 08/27/2023 H eel pain: Nature: a vanna. Location: B ack of heel, B/L. Duration: s everal weeks. Onset/Cause: u nknown. Severity/Quality: m ild. T oe pain: Nature: a vanna. Location: 5 th toe, B/L feet. Duration: s everal months. Onset/Cause: s hoe gear. * ROS: G eneral/Constitutional: Nausea d enies. V omiting d enies. H wale Thirst d enies. L oss appetite d enies. C hills d enies. F atigue d enies.?Fever d enies. N ight Sweats d enies. U nexplained weight loss d enies. U nexplained weight gain d enies. H EENTM: Dentures d enies. D izziness d enies. G lasses/contacts a dmits. R etinopathy d enies. B lurred/double vision d enies. T MJ?denies. D ischarge/drainage d enies. I mplants d enies. S ore throat d enies. D ental implants d enies. H madeline of hearing d enies. D ifficulty chewing/swallowing/speaking d enies. N ose bleeds d enies. S ore mouth d enies. ? R espiratory: On Oxygen d enies. P neumonia/pleurisy d enies.?Bronchitis d enies. E mphysema d enies. C oughing d enies. C ough blood?denies. S hortness of breath d enies. W heezing d enies. C ardiovascular: Pacemaker d enies. M TACK WELDER d enies. W PW d enies. C HF d enies. H eart attack d enies. S eptal defect d enies. R apid beat d enies. C hest pain d enies. A trial Fib. d enies. M urmur/Palpitations d enies. G astrointestinal: Hemorrhoids d enies. S tomach/Abdominal pain d enies. D ark blood stool d enies. I rritable bowel d enies. C onstipation d enies. D iarrhea d enies. H ematology: Swelling d enies. C lots d enies. V aricose Veins d enies. B ruising d enies. B leeding problem d enies. G enitourinary: Blood urine d enies. F requent/Painfu/urination/bladder control d enies. K idney stones d enies. I nfection (UTI) d enies. N ephropathy d enies. s ex trans dis (STD) d enies. P rostate d enies. M usculoskeletal: Hammertoes d enies. B unions d enies. B ack Pain d enies. M uscle Cramps/ Resting d enies. M uscle cramps / walking d enies.?Generalized aches and pains d enies. W eakness d enies. I nteg.: Rudd d enies. S cars d enies. C orns/calluses?denies. I ngrown nails d enies. P ainful nails d enies. O pen Sores d enies. R ashes d enies. N eurologic: Difficulty sleeping d enies. B rain disorder d enies. N umbness d enies. B alance trouble d enies. C onfusion d enies. F ainting/blackouts d enies. T ingling d enies. T remors d enies. * Medical History: Objective: * Vitals: * Examination: N eurological: SENSORY: N eurological exam demonstrates, reduced vibration sensation, at Forefoot, at Midfoot, B/L, 5.07 monofilament test performed at plantar aspects of 5 varied sites per foot shows sensation, reduced , at Forefoot, B/L, Neurological exam demonstrates mild pop of tatum achilles tendons. TINEL'S COMPRESSION: n egative tarsal tunnel, lei pedis, and medial calcaneal nerves b/l. BABINSKI REFLEX: a bsent. V ascular: DP PULSES (B): 1/4, B/L. PT PULSES (B): 1/4, B/L. CAPILLARY FILL TIME: 3 secs. per digit, b/l. TROPHIC CONDITION-TEXTURE/ELASTICITY/TURGOR/HAIR GROWTH (B):?absent. TEMPERTURE GRADIENT (C): w arm to cool, proximal to distal.? PIGMENTATION: n ormal, B/L. EDEMA (C): 1/4, B/L, Ankle(s), Leg(s). TELANGECTASIA: a bsent. VARICOSITIES: a bsent. N ails: NAILS are: e longated, overgrown, dystrophic, greater than 3mm thick, discolored and friable with crumbly malodorous subungual debris, with pain on palpation, 1-5 Left foot, T9, T6. D ermatologic: SKIN FINDINGS: Skin exam reveals Keratotic lesion(s) located at, Medial plantar, IPJ, TA, T5, Plantar, T6, Skin shows sign(s) of, dryness, scaling, in a stocking fashion, no fissure(s) present, B/L. O rthopedic: MUSCLE STRENGTH: 5 /5 all groups in a symmetrical fashion tatum. GAIT ABNORMALITY: p ronated, abducted, b/l. BUNION: M edially prominent 1st MPJ, Dorsally prominent 1st MPJ , (+) Pain on palpation, B/L, Lateral tracking 1st MPJ incompletely reducable. DIGITAL DEFORMITIES: D igital contracture, 2-5 tatum with t7 underlapping t6. G eneral Examination: GENERAL APPEARANCE: a lert, well hydrated, in no distress , good attention to hygiene. ORIENTED: p erson,place, and time. FOOT EXAM: L ower Extremity Neurological Exam performed:?Yes V isual exam of foot performed: Y es D ate 0 05/31/2023 S ensory testing performed: s ensations diminished P edal pulse taking performed: 1 + O phthalmology Referral: DIABETES EYE EXAM D iabetic Retinopathy Screening: Y es F indings of Diabetic Eye Exam: n o retinopathy Assessment: * Assessment: 1. T ype 1 diabetes mellitus with diabetic polyneuropathy - E10.42 (Primary) 2 . T inea unguium - B35.1 3 . I ngrowing nail - L60.0 4 .?Pain in right toe(s) - M79.674 5 . P ain in left toe(s) - M79.675 6. H allux valgus (acquired), left foot - M20.12 7 . H allux valgus (acquired), right foot - M20.11 8 . E czema, unspecified type - L30.9 ?9. X erosis cutis - L85.3 1 0. O ther hammer toe(s) (acquired), right foot - M20.41 1 1. O ther hammer toe(s) (acquired), left foot - M20.42 ?12. A chilles tendinitis, right leg - M76.61 1 3. A chilles tendinitis, left leg - M76.62 Plan: * Treatment: * Procedures: D ebride Nail 6-10: Nail debridement N ail debridement performed extensively to reduce/remove overall nail length and girth, subungual debris, and necrotic tissue, by manual and electrical means with use of a nail nipper and/or dremel, to more viable healthy nail plate or bed tissue 6-10. Silver nitrate used for any petechial bleeding as necessary. Patient chooses, no pharmaceutical tx (44499). K eratoma Treatment: Parring or Cutting of Benign Hyperkeratotic Lesion(s) 1 1056 (2-4 Lesions) - The Benign hyperkeratotic lesions, as described above were pared, and/or cut utilizing a sterile #15 blade, tissue nippers, and/or dremel. * Procedure Codes: 1 1721 DEBRIDE NAIL, 6 OR MORE, Modifiers: XS , 03065 TRIM SKIN LESIONS, 2 TO 4, Modifiers: XS * Follow Up: 2 Months, 3 Months * Images: * The named appointment provid er may or may not be the originator of this progress note, and it is not deemed complete until electronically signed by the appointment provider. Sign off status: Pending * Provider: Madison Martinez DPM Date: 0 12/10/2023 Generated for Jeannie grady/Kevin/Cony on: 05/03/2024 06:28 PM EST History and Physical Notes * HPI (History of Present Illness) Category Sub-Category Detail Notes Category Not es Heel pain Duration: several weeks Nature: aching Severity/Quality: mild Location: Back of heel, B/L Onset/Cause: unknown Toe pain Nature: aching Location: 5th toe, B/L feet Duration: several months Onset/Cause: shoe gear Painful Nails Pt States Last PCP Visit: Date:: 08/27/2023 Examination Category Sub-Category Detail Notes Category Not es Neurological SENSORY: Neurological exa m demonstrates, reduced vibration sensation, at Forefoot, at Midfoot, B/L, 5.07 monofilament test performed at plantar aspects of 5 varied sites per foot shows sensation, reduced , at Forefoot, B/L, Neurological exam demonstrates mild pop of tatum achilles tendons BABINSKI REFLEX: absent TINEL'S COMPRESSION: negative tarsal rosanna clay, lei pedis, and medial calcaneal nerves b/l Dermatologic SKIN FINDINGS: Skin exam reveal s Keratotic lesion(s) located at, Medial plantar, IPJ, TA, T5, Plantar, T6, Skin shows sign(s) of, dryness, scaling, in a stocking fashion, no fissure(s) present, B/L Orthopedic GAIT ABNORMALITY: pronated, abducted, b/l BUNION: Medially prominent 1 st MPJ, Dorsally prominent 1st MPJ , (+) Pain on palpation, B/L, Lateral tracking 1st MPJ incompletely reducable DIGITAL DEFORMITIES: Digital contracture , 2-5 tatum with t7 underlapping t6 MUSCLE STRENGTH: 5/5 all groups in a symmetrical fashion tatum General Examination GENERAL APPEARANCE: alert, w ell hydrated, in no distress , good attention to hygiene FOOT EXAM: Lower Extremity Neurological Exa m performed:: Yes Visual exam of foot performed:: Yes Date: 05/31/2023 Sensory testing performed:: sensations d iminished Pedal pulse taking performed:: 1+ ORIENTED: person,place, and ti me Ophthalmology Referral DIABETES EYE EXAM Diabetic Retinopa thy Screening:: Yes Findings of Diabetic Eye Exam:: no retin opathy Vascular DP PULSES (B): 1/4, B/L PT PULSES (B): 1/4, B/L CAPILLARY FILL TIME: 3 secs. per digit, b/l TEMPERTURE GRADIENT (C): warm to cool, p roximal to distal TROPHIC CONDITION-TEXTURE/EL ASTICITY/TURGOR/HAIR GROWTH (B): absent EDEMA (C): 1/4, B/L, Ankle(s), Leg(s) TELANGECTASIA: absent VARICOSITIES: absent PIGMENTATION: normal, B/L Nails NAILS are: elongated, overg rown, dystrophic, greater than 3mm thick, discolored and friable with crumbly malodorous subungual debris, with pain on palpation, 1-5 Left foot, T9, T6
--- OUTSIDE RECORDS SUMMARY | 2024-09-26 02:45 | XMS_ITS ---
Author Organization Omid Jimenes MD Address [address] [place] [phone] Care Team Providers Care Molded Goods Spot Picker Name Role Phone Omid Jimenes Primary Care Provider Results Component Value Reference Range Notes Liver Panel Reviewed date:09/26/2024 04:14:17 PM Interpretation: Performing Lab:[facility], [address] [place] [phone] Notes/Report: Bilirubin Total 0.4 0.0-1.0 mg/dL Bilirubin Direct 0.2 0.0-0.5 mg/dL Aspartate Amino Transferase 36 5-31 U/L Alanine Aminotransferase 24 0-31 U/L Total Protein 7.1 6.5-8.0 g/dL Albumin Level 3.7 3.5-5.0 g/dL Alkaline Phosphatase 81 39-117 U/L Glucose Fasting Reviewed date:09/26/2024 04:14:33 PM Interpretation: Performing Lab:[address] [phone] Notes/Report: Glucose Fasting 158 60-99 mg/dL A fasting glucose of 126 mg/dl or greater on more than one occasion is considered diagnostic of diabetes. Lipid Panel with Reflex Reviewed date:09/26/2024 04:15:11 PM Interpretation: Performing Lab:[address] [phone] Notes/Report: Triglycerides 169 <150 mg/dL Desirable Triglyceride: less than 150 mg/dL Borderline High Triglyceride 150-199 mg/dL High Triglyceride: 200-499 mg/dL Very High Triglyceride: greater than or equal to 5OO mg/dL Cholesterol 161 <200 mg/dL Desirable Cholesterol: less than 200 mg/dL Borderline High Cholesterol: 200-239 mg/dL High Cholesterol: greater than 239 mg/dL LDL Cholesterol Calculated 82 <100 mg/dL Desirable LDL: less than 100 mg/dL Near Optimal/Above Optimal LDL: 110-129 mg/dL Borderline High LDL: 130-159 mg/dL High LDL: 160-189 mg/dL Very High LDL: greater than or equal to 190 mg/dL HDL Cholesterol 46 >40 mg/dL Desirable HDL: greater than 40 mg/dL Note: This HDL assay may give artificially low results in patients with liver disease. Hemoglobin A1c Reviewed date:09/26/2024 12:54:48 PM Interpretation: Performing Lab:[address] [phone] Notes/Report: Hemoglobin A1c % 5.9 <6.0 % [...] average glucose, using the formula of the [id number]-Ebhgpgt Average Glucose study (ADAG), Diabetes Care, Vol.31,#8, Nov. 2007 REASON FOR VISIT fasting lipids Encounters Encounter Location Date Provider Diagnosis Omid Jimenes MD [address] [place] [phone] 09/26/2024 Omid Jimenes Type 2 diabetes kel itus without complication E11.9 and Pure hypercholesterolemia E78.00 Assessments Encounter Date Diagnosis (ICD Code) Assessment Notes Treatment Notes Treatment Clinical Notes Section Notes 09/26/2024 Type 2 diabetes kel itus without complication (ICD-10 - E11.9) 09/26/2024 Pure hypercholesterolemia (ICD-10 - E78.00) Plan Of Treatment Next Appt Details Provider Name:Omid borden, 06/05/2025 02:00:00 PM, [address] [place] [address], [phone], Provider Name:Omid borden, 08/27/2025 07:30:00 AM, [address] [place] [address], [phone], Provider Name:Omid borden, 09/03/2025 02:00:00 PM, [address] [place] [address], [phone], Provider Name:Omid borden, 03/01/2026 07:30:00 AM, [address] [place] [address], [phone], Provider Name:Omid borden, 03/08/2026 02:30:00 PM, [address] [place] [address], [phone], Progress Notes * Vy [place]ITE LDOB:1945 (79 yo F)Acc No.[id number]:09/26/2024 Progress Note Patient: Vy VILLAFANA Provider: Naomie Jimenes MD :1945 A ge:79 Y S ex:Female Date:09/26/2024 Address:[address] [place] [address] Subjective: * Chief Complaints: * 1 . Fasting lipids. * Medical History: Objective: * Vitals: Assessment: * Assessment: 1. T ype 2 diabetes mellitus without complication - E11.9 (Primary) 2 . P ure hypercholesterolemia - E78.00 Plan: * Treatment: 2. P ure hypercholesterolemia L AB: Liver Panel (Collection Date & Time - 09/26/2024 11:27 AM) L AB: Glucose Fasting (Collection Date & Time - 09/26/2024 11:27 AM) L AB: Lipid Panel with Reflex (Collection Date & Time - 09/26/2024 11:27 AM) L AB: Hemoglobin A1c (Collection Date & Time - 09/26/2024 11:27 AM) * Procedure Codes: 3 6415 VENIPUNCT, ROUTINE* * * The named appointment provid er may or may not be the originator of this progress note, and it is not deemed complete until electronically signed by the appointment provider. Sign off status: Pending * Provider: Naomie Jimenes MD Date: 0 09/26/2024 Generated for Jeannie grady/Kevin/Willisitting on: 1 05/03/2024 06:27 PM EST
--- OUTSIDE RECORDS SUMMARY | 2024-09-29 09:00 | XMS_ITS ---
Author Organization Omid Jimenes MD Address [address] [place] [phone] Care Team Providers Care Lunch Wagon Operator Name Role Phone Omid Jimenes Primary Care Provider Allergies Allergen (clinical drug ingredient) Drug/Non Drug Allergy documented on EMR Reaction Allergy Type Onset Date Status dexamethasone / tobramycin tobradex (uncoded) redness swelling Allergy Active bacitracin bacitracin oint (uncoded) eye swelling Allergy Active Substance with sulfonamide structure and antibacterial mechanism of action (substance) sulfa (uncoded) GI UPSET Allergy Active Medicinal quinolone and acting as antibacterial agent (FN) quinolones (uncoded) knee pain Allergy Active pravastatin Pravachol cramps Drug Allergy Activ e atorvastatin Lipitor cramps Drug Allergy Acti ve REASON FOR VISIT 6 month Medications Medication SIG (Take, Route, Frequency, Duration) Notes Start Date End Date Status Gabapentin 400 MG 1 capsule Orally Onc e a day for 90 days Active Valsartan 40 MG TAKE ONE TABLET BY M OUTH EVERY DAY Orally Once a day for 90 days Active Dymista 137-50 MCG/ACT USE 1 SPRAY EACH NOSTRIL TWICE A DAY Nasal Twice a day for 90 days Active DULoxetine [...] Twice a day for 90 days Active traZODone HCl 50 MG 1 tablet at bedtime as needed Orally Once a day for 30 day(s) Active Bepreve 1.5 % INSTILL 1 TO 2 DROPS IN EACH EYE DAILY NEEDED Ophthalmic Twice a day for 20 days Active ZyrTEC Allergy 10 MG 1 tablet Orally Onc e a day for 90 days Active Lantus SoloStar 100 UNIT/ML 70 units Subcutaneous 70 units twice a day for 90 days Active Florastor 250 MG TAKE ONE CAPSULE BY MOUTH TWICE A DAY Orally twice a day for 90 days Active HYDROcodone-Acetaminophe n 7.5-325 MG (Schedule II Drug) TAKE 1 TABLET BY MOUTH EVERY 8 HOURS NEEDED FOR PAIN Oral for 30 Active MiraLax 17 GM/SCOOP 1 scoop mixed with 8 ounces of fluid Orally Once a day for 90 days Active Calcitriol 0.25 MCG 1 capsule Orally Thr ee times a Week for 90 days Active Calcitriol 0.25 MCG 1 capsule Orally Thr ee times a Week for 30 day(s) Active Mounjaro 5 MG/0.5ML INJECT CONTENTS OF O NE PEN UNDER THE SKIN ONCE A WEEK for 28 Active Ferrous Sulfate 325 (65 Fe) MG 1 tablet Orally Once a day for 90 days Not-Taking Atorvastatin Calcium 20 MG TAKE ONE TABLET BY MOUTH EVERY DAY for 90 Active Meclizine HCl 25 MG TAKE ONE TABLET BY M OUTH TWICE A DAY NEEDED Orally every 12 hrs for 28 days Active Ventolin HFA 108 (90 Base) MCG/ACT 2 puffs as needed Inhalation every 4 hrs for 90 days 10/30/2019 Active Allopurinol 100 MG TAKE TWO TABLETS BY MOUTH EVERY DAY Oral Once a day for 90 days Active Flovent HFA 220 MCG/ACT USE 2 PUFFS TWIC E DAILY Inhalation Twice a day for 90 days Active Nystop 216007 UNIT/GM APPLY ONE APPLICAT ION EXTERNALLY TWO TIMES A DAY Externally Twice a day for 90 days Active Ondansetron 4 MG 1 tablet on the tong ue and allow to dissolve Orally twicea day for 7 days 11/30/2023 Active Spiriva Respimat 1.25 MCG/ACT INHALE 2 PUFFS DAILY Inhalation Once a day for 90 days Active Omeprazole 20 MG 1 capsule 30 minutes before morning meal Orally Once a day for 90 days Active Furosemide 80 MG TAKE ONE TABLET BY M OUTH TWICE A DAY Orally teice a day for 90 days Active Gabapentin 100 MG [...] Orally twice aday for 90 days Active Vital Signs Blood pressure systolic 154 mm Hg 09/30/19 25 Blood pressure diastolic 60 mm Hg 025 Height 64 in 09/29/2024 Weight 246 lbs 09/29/2024 BMI 42.22 kg/m2 09/29/2024 weight is down 6 pounds [facility] 02-29-24 Encounters Encounter Location Date Provider Diagnosis Omid Jimenes MD [address] [place], [place] [phone] 09/29/2024 Omid Jimenes Type 2 diabetes kel itus without complication E11.9 ; Mild intermittent asthma without complication J45.20 and Pure hypercholesterolemia E78.00 Assessments Encounter Date Diagnosis (ICD Code) Assessment Notes Treatment Notes Treatment Clinical Notes Section Notes 09/29/2024 Type 2 diabetes kel itus without complication (ICD-10 - E11.9) maintain the same dose of mounjaro since she is still getting nausea 09/29/2024 Mild intermittent as thma without complication (ICD-10 - J45.20) continue with present meds/ 09/29/2024 Pure hypercholesterolemia (ICD-10 - E78.00) stable, will continue with current regiment Plan Of Treatment Treatment Notes Assessment Notes Type 2 diabetes mellitus without complic ation maintain the same dose of mounjaro since she is still getting nausea Mild intermittent asthma without complic ation continue with present meds/ Pure hypercholesterolemia stable, will c ontinue with current regiment Next Appt Details Follow Up: 3 Months, Reason: Provider Name:Omid borden, 06/05/2025 02:00:00 PM, [address] [place] [address], [address], [phone], Provider Name:Omid borden, 08/27/2025 07:30:00 AM, [address] [place] [address], [address], [phone], Provider Name:Omid borden, 09/03/2025 02:00:00 PM, [address] [place] [address], [address], [phone], Provider Name:Omid borden, 03/01/2026 07:30:00 AM, [address] [place] [address], [address], [phone], Provider Name:Omid borden, 03/08/2026 02:30:00 PM, [address] [place] [address], [address], [phone], Progress Notes * Vy WAITE LDOB:1945 (79 yo F)Acc No.[id number]:09/29/2024 Progress Notes Patient: Vy VILLAFANA Provider: Naomie Jimenes MD :1945 A ge:79 Y S ex:Female Date:09/29/2024 Address:[address] [place] [address] Subjective: * Chief Complaints: * 6 month * HPI: S ymptom(s): patient is a 79 yo female here for 6 month follow up visit/ here for follow up. * ROS: G eneral/Constitutional: Denies C hills. D enies F atigue. D enies F ever. D enies H eadache. E NT: Patient denies d ecreased sense of smell, any loss of taste, sore throat. D enies S ore throat. R espiratory: Denies S hortness of breath at rest. D enies S hortness of breath with exertion. G astrointestinal: Denies D iarrhea. D enies N ausea. M usculoskeletal: Patient denies m uscle aches. P eripheral Vascular: Patient denies r ed and blue toes, red and blue toes. ? * Medical History: * Surgical History: * Hospitalization/Major Diagno stic Procedure: * Medications: T akingCalcitriol 0.25 MCG Capsule 1 capsule Orally Three times a Week HYDROcodone-Acetaminophen 7.5-325 MG Tablet (Schedule II Drug) TAKE 1 TABLET BY MOUTH EVERY 8 HOURS NEEDED FOR PAIN Oral Lantus SoloStar 100 UNIT/ML Solution Pen-injector 70 units Subcutaneous 70 units twice a day Florastor 250 MG Capsule TAKE ONE CAPSULE BY MOUTH TWICE A DAY Orally twice a day MiraLax 17 GM/SCOOP Powder 1 scoop mixed with 8 ounces of fluid Orally Once a day Calcitriol 0.25 MCG Capsule 1 capsule Orally Three times a Week ZyrTEC Allergy 10 MG Tablet 1 tablet Orally Once a day traZODone HCl 50 MG Tablet 1 tablet at bedtime as needed Orally Once a day Bepreve 1.5 % Solution INSTILL 1 TO 2 DROPS IN EACH EYE DAILY NEEDED Ophthalmic Twice a day [employer] Un[employer]ine Pentips Plus 31G X 6 MM Miscellaneous USE DIRECTED TWO TIMES A DAY SUBCUTANEOUSLY sq Two times a day Potassium Chloride ER 10 MEQ Tablet Extended Release TAKE ONE TABLET BY MOUTH TWICE A DAY WITH FOOD Orally Twice a day Dymista 137-50 MCG/ACT Suspension USE 1 SPRAY EACH NOSTRIL TWICE A DAY Nasal Twice a day DULoxetine HCl 60 MG Capsule Delayed Release Particles TAKE ONE CAPSULE BY MOUTH EVERY DAY Orally Once a day Gabapentin 400 MG Capsule 1 capsule Orally Once a day Valsartan 40 MG Tablet TAKE ONE TABLET BY MOUTH EVERY DAY Orally Once a day Aspir-Low 81 MG Tablet Delayed Release 1 tablet Orally Once a day Amoxicillin 500 MG Capsule 1 capsule Orally every 8 hrs Benadryl Allergy 25 MG Tablet 2 tablet at bedtime as needed Orally twice aday Gabapentin 100 MG Capsule 1 capsule Orally Once a day in the morning Levothyroxine Sodium 75 MCG Tablet 1 tablet in the morning on an empty stomach Orally Once a day Omeprazole 20 MG Capsule Delayed Release 1 capsule 30 minutes before morning meal Orally Once a day Furosemide 80 MG Tablet TAKE ONE TABLET BY MOUTH TWICE A DAY Orally teice a day Spiriva Respimat 1.25 MCG/ACT Aerosol Solution INHALE 2 PUFFS DAILY Inhalation Once a day Flovent HFA 220 MCG/ACT Aerosol USE 2 PUFFS TWICE DAILY Inhalation Twice a day Ventolin HFA 108 (90 Base) MCG/ACT Aerosol Solution 2 puffs as needed Inhalation every 4 hrs Allopurinol 100 MG Tablet TAKE TWO TABLETS BY MOUTH EVERY DAY Oral Once a day Ondansetron 4 MG Tablet Disintegrating 1 tablet on the tongue and allow to dissolve Orally twicea day Nystop 032383 UNIT/GM Powder APPLY ONE APPLICATION EXTERNALLY TWO TIMES A DAY Externally Twice a day Meclizine HCl 25 MG Tablet TAKE ONE TABLET BY MOUTH TWICE A DAY NEEDED Orally every 12 hrs Atorvastatin Calcium 20 MG Tablet TAKE ONE TABLET BY MOUTH EVERY DAY Mounjaro 5 MG/0.5ML Solution Auto-injector INJECT CONTENTS OF ONE PEN UNDER THE SKIN ONCE A WEEK Taking Calcitriol 0.25 MCG Capsule 1 capsule Orally Three times a Week Taking HYDROcodone-Acetaminophen 7.5-325 MG Tablet (Schedule II Drug) TAKE 1 TABLET BY MOUTH EVERY 8 HOURS NEEDED FOR PAIN Oral Taking Lantus SoloStar 100 UNIT/ML Solution Pen-injector 70 units Subcutaneous 70 units twice a day Taking Florastor 250 MG Capsule TAKE ONE CAPSULE BY MOUTH TWICE A DAY Orally twice a day Taking MiraLax 17 GM/SCOOP Powder 1 scoop mixed with 8 ounces of fluid Orally Once a day Taking Calcitriol 0.25 MCG Capsule 1 capsule Orally Three times a Week Taking ZyrTEC Allergy 10 MG Tablet 1 tablet Orally Once a day Taking traZODone HCl 50 MG Tablet 1 tablet at bedtime as needed Orally Once a day Taking Bepreve 1.5 % Solution INSTILL 1 TO 2 DROPS IN EACH EYE DAILY NEEDED Ophthalmic Twice a day Taking [employer] Unifine Pentips Plus 31G X 6 MM Miscellaneous USE DIRECTED TWO TIMES A DAY SUBCUTANEOUSLY sq Two times a day Taking Potassium Chloride ER 10 MEQ Tablet Extended Release TAKE ONE TABLET BY MOUTH TWICE A DAY WITH FOOD Orally Twice a day Taking Dymista 137-50 MCG/ACT Suspension USE 1 SPRAY EACH NOSTRIL TWICE A DAY Nasal Twice a day Taking DULoxetine HCl 60 MG Capsule Delayed Release Particles TAKE ONE CAPSULE BY MOUTH EVERY DAY Orally Once a day Taking Gabapentin 400 MG Capsule 1 capsule Orally Once a day Taking Valsartan 40 MG Tablet TAKE ONE TABLET BY MOUTH EVERY DAY Orally Once a day Taking Aspir-Low 81 MG Tablet Delayed Release 1 tablet Orally Once a day Taking Amoxicillin 500 MG Capsule 1 capsule Orally every 8 hrs Taking Benadryl Allergy 25 MG Tablet 2 tablet at bedtime as needed Orally twice aday Taking Gabapentin 100 MG Capsule 1 capsule Orally Once a day in the morning Taking Levothyroxine Sodium 75 MCG Tablet 1 tablet in the morning on an empty stomach Orally Once a day Taking Omeprazole 20 MG Capsule Delayed Release 1 capsule 30 minutes before morning meal Orally Once a day Taking Furosemide 80 MG Tablet TAKE ONE TABLET BY MOUTH TWICE A DAY Orally teice a day Taking Spiriva Respimat 1.25 MCG/ACT Aerosol Solution INHALE 2 PUFFS DAILY Inhalation Once a day Taking Flovent HFA 220 MCG/ACT Aerosol USE 2 PUFFS TWICE DAILY Inhalation Twice a day Taking Ventolin HFA 108 (90 Base) MCG/ACT Aerosol Solution 2 puffs as needed Inhalation every 4 hrs Taking Allopurinol 100 MG Tablet TAKE TWO TABLETS BY MOUTH EVERY DAY Oral Once a day Taking Ondansetron 4 MG Tablet Disintegrating 1 tablet on the tongue and allow to dissolve Orally twicea day Taking Nystop 232891 UNIT/GM Powder APPLY ONE APPLICATION EXTERNALLY TWO TIMES A DAY Externally Twice a day Taking Meclizine HCl 25 MG Tablet TAKE ONE TABLET BY MOUTH TWICE A DAY NEEDED Orally every 12 hrs Taking Atorvastatin Calcium 20 MG Tablet TAKE ONE TABLET BY MOUTH EVERY DAY Taking Mounjaro 5 MG/0.5ML Solution Auto-injector INJECT CONTENTS OF ONE PEN UNDER THE SKIN ONCE A WEEK Not-Taking/PRNFerrous Sulfate 325 (65 Fe) MG Tablet 1 tablet Orally Once a day Medication List reviewed and reconciled with the patientNot-Taking/PRN Ferrous Sulfate 325 (65 Fe) MG Tablet 1 tablet Orally Once a day Medication List reviewed and reconciled with the patient * Allergies: q uinolones: knee painsulfa: GI UPSETbacitracin oint: eye swellingtobradex: redness swellingLipitor: crampsPravachol: crampsyes[Allergies Verified] Objective: * Vitals: H t: 64, Wt: 246, BMI:42.22, BP:154/60, Repeat BP:115/60, Wt-k.58. weight is down 6 pounds since 02-29-24. * P ast Orders: L ab:Liver Panel (Order Date - 09/26/2024) (Collection Date & Time - 09/26/2024 11:27 AM) Value Reference Range Bilirubin Total 0.4 0.0-1.0 - mg/dL Bilirubin Direct 0.2 0.0-0.5 - mg/dL Aspartate Amino Transferase 36 H 5-31 - U/L Alanine Aminotransferase 24 0-31 - U/L Total Protein 7.1 6.5-8.0 - g/dL Albumin Level 3.7 3.5-5.0 - g/dL Alkaline Phosphatase 81 39-117 - U/L L ab:Glucose Fasting (Order Date - 09/26/2024) (Collection Date & Time - 09/26/2024 11:27 AM) Value Reference Range Glucose Fasting 158 H 60-99 - mg/dL L ab:Lipid Panel with Reflex (Order Date - 09/26/2024) (Collection Date & Time - 09/26/2024 11:27 AM) Value Reference Range Triglycerides 169 H <150 - mg/dL Cholesterol 161 <200 - mg/dL LDL Cholesterol Calculated 82 <100 - mg/dL HDL Cholesterol 46 >40 - mg/dL L ab:Hemoglobin A1c (Order Date - 09/26/2024) (Collection Date & Time - 09/26/2024 11:27 AM) Value Reference Range Hemoglobin A1c % 5.9 <6.0 - % Estimated Average Glucose 123 - mg/dL * Examination: G eneral Examination: GENERAL APPEARANCE: w ell developed, well nourished. HEAD: n ormocephalic, normocephalic. SKIN: g ood turgor. HEART: n o murmurs, rubs, gallops, regular rate and rhythm.? LUNGS: n o wheezes, rales, rhonchi, good air movement, clear to auscultation bilaterally. Assessment: * Assessment: 1. T ype 2 diabetes mellitus without complication - E11.9 (Primary) 2 . M ild intermittent asthma without complication - J45.20 3 . P ure hypercholesterolemia - E78.00 Plan: * Treatment: 2. M ild intermittent asthma without complication Notes: continue with present meds/ 3. P ure hypercholesterolemia Notes: stable, will continue with current regiment * Procedure Codes: G 2211 Complex e/m visit add on * Follow Up: 3 Months * * Sign off status: Completed true * Provider: Naomie Jimenes MD Date: 0 09/29/2024 Generated for Jeannie grady/Kevin/Cony on: 05/03/2024 06:24 PM EST History and Physical Notes * HPI (History of Present Illness) Category Sub-Category Detail Notes Category Not es Symptom(s) patient is a 79 yo female here for 6 month follow up visit/ here for follow up. Examination Category Sub-Category Detail Notes Category Not es General Examination GENERAL APPEARANCE: well developed , well nourished HEAD: normocephalic, normo cephalic HEART: no murmurs, rubs, ga llops, regular rate and rhythm LUNGS: no wheezes, rales, r honchi, good air movement, clear to auscultation bilaterally SKIN: good turgor
--- OUTSIDE RECORDS SUMMARY | 2024-11-25 05:36 | XMS_ITS ---
Author Organization Omid Jimenes MD Address [address] [place] [phone] Care Team Providers Care Financial Administrative Assistant Name Role Phone Omid Jimenes Primary Care Provider [phone] REASON FOR VISIT refill Medications Medication SIG (Take, Route, Fr equency, Duration) Notes Start Date End Date Status Mounjaro 5 MG/0.5ML INJECT CONTENTS OF O NE PEN UNDER THE SKIN ONCE A WEEK for 28 Acti ve Encounters Encounter Location Date Provider Diagnosis Omid Jimenes MD [address] [place] [phone] 11/25/2024 Omid Jimenes Plan Of Treatment Medication Medication Name Sig Start Date Stop Date Notes Mounjaro 5 MG/0.5ML INJECT CONTENTS OF O NE PEN UNDER THE SKIN ONCE A WEEK for 28 Next Appt Details Provider Name:Omid Patricia Akhtar ier, 06/05/2025 02:00:00 PM, [address] [place] [address], [place] [address], [place], [place], [phone], Provider Name:Omid Patricia Giovana ier, 08/27/2025 07:30:00 AM, [address] [place] [address], [place] [address], [place], [place], [phone], Provider Name:Omiddimitry Akhtar ier, 09/03/2025 02:00:00 PM, [address] [place] [address], [place] [address], [place], [place], [phone], Provider Name:Omid Patricia Akhtar ier, 03/01/2026 07:30:00 AM, [address] [place] [address], [place] [address], [place], [place], [phone], Provider Name:Omid Akhtar ier, 03/08/2026 02:30:00 PM, [address] [place] [address], [place] [address], [place], [place], [phone], Progress Notes * Vy WAITE LDOB:1945 (79 yo F)Acc No.[id number]:11/25/2024 Patient: Vy VILLAFANA :1945 A ge:79 Y S ex:Female Address:[address] [place] [address] * Refills Refill Mounjaro Solution Auto-injector, 5 MG/0.5ML, 2 Milliliter, INJECT CONTENTS OF ONE PEN UNDER THE SKIN ONCE A WEEK, 28, Refills=3 * true * Date: Generated for Nedrai ng/Soledadg/eTransmitting on: 05/03/2024 06:25 PM EST
--- OUTSIDE RECORDS SUMMARY | 2024-12-15 10:31 | XMS_ITS ---
Author Organization Omid Jimenes MD Address [address] [place] [phone] Care Team Providers Care Sound Designer Name Role Phone Omid Jimenes Primary Care Provider [phone] REASON FOR VISIT ALL MEDS NEED TO BE REFILLED Encounters Encounter Location Date Provider Diagnosis Omid Jimenes MD [address] [place], [place] [phone] 12/15/2024 Omid Jimenes Plan Of Treatment Next Appt Details Provider Name:Omid Akhtar ier, 06/05/2025 02:00:00 PM, [address], [address], [place], [phone], Provider Name:Omid Akhtar michi, 08/27/2025 07:30:00 AM, [address], [address], [place], [phone], Provider Name:Omid Laurentmadeline jor, 09/03/2025 02:00:00 PM, [address] [place] [address], [address], [place], [phone], Provider Name:Omid Patricia Giovana jor, 03/01/2026 07:30:00 AM, [address] [place] [address], [address], [place], [phone], Provider Name:Omid Akhtar michi, 03/08/2026 02:30:00 PM, [address] [place] [address], [address], [place], [phone], Progress Notes * Vy WAITE LDOB:1945 (79 yo F)Acc No.[id number]:12/15/2024 Patient: Fannie Vy ALONZO :1945 A ge:79 Y S ex:Female Address:[address] [place] [address] * true * Date: Generated for Jeannie grady/Kevin/eTransmitting on: 05/03/2024 06:24 PM EST
--- OUTSIDE RECORDS SUMMARY | 2024-12-25 06:01 | XMS_ITS ---
Author Organization Omid Jimenes MD Address [address] [place] [phone] Care Team Providers Care Plant Accountant Name Role Phone Omid Jimenes Primary Care Provider [phone] REASON FOR VISIT needs all scripts Medications Medication SIG (Take, Route, Frequency, Duration) Notes Start Date End Date Status Furosemide 80 MG TAKE ONE TABLET BY M OUTH TWICE A DAY Orally teice a day for 90 days Active Spiriva Respimat 1.25 MCG/ACT INHALE 2 PUFFS DAILY Inhalation Once a day for 90 days Active Flovent HFA 220 MCG/ACT USE 2 PUFFS TWIC E DAILY Inhalation Twice a day for 90 days Active Ventolin HFA 108 (90 Base) MCG/ACT 2 puffs as needed Inhalation every 4 hrs for 90 days 10/30/2019 Active Omeprazole 20 MG 1 capsule 30 [...] Once a day for 90 days Active Potassium [...] Once a day for 90 days Active MiraLax 17 GM/SCOOP 1 scoop mixed with 8 ounces of fluid Orally Once a day for 90 days Active ZyrTEC [...] SKIN ONCE A WEEK for 28 Active Calcitriol 0.25 MCG 1 capsule Orally Thr ee times a Week for 90 days Active Lantus SoloStar 100 UNIT/ML 70 units Subcutaneous 70 units twice a day for 90 days Active Florastor 250 MG TAKE ONE CAPSULE BY MOUTH TWICE A DAY Orally twice a day for 90 days Active Ferrous Sulfate 325 (65 Fe) MG 1 tablet Orally Once a day for 90 days Active Allopurinol 100 MG TAKE TWO TABLETS BY MOUTH EVERY DAY Oral Once a day for 90 days Active Ondansetron 4 MG 1 tablet on the tong ue and allow to dissolve Orally twicea day for 7 days 11/30/2023 Active Nystop 703849 UNIT/GM APPLY ONE APPLICAT ION EXTERNALLY TWO TIMES A DAY Externally Twice a day for 90 days Active Meclizine HCl 25 MG TAKE ONE TABLET BY M OUTH TWICE A DAY NEEDED Orally every 12 hrs for 28 days Active Atorvastatin Calcium 20 MG TAKE ONE TABL ET BY MOUTH EVERY DAY for 90 Active Encounters Encounter Location Date Provider Diagnosis Omid Jimenes MD [address] [place] [address] [address] [place], [place] [id number] 12/25/2024 Omid Jimenes Type 2 diabetes mellitus without complication E11.9 ; Arthritis M19.90 ; Essential hypertension I10 ; Laceration of left knee, subsequent encounter S81.012D ; Acquired hypothyroidism E03.9 ; GERD (gastroesophageal reflux disease) K21.9 ; Acute systolic congestive heart failure I50.21 ; Mild intermittent asthma without complication J45.20 and Acute cellulitis L03.90 Assessments Encounter Date Diagnosis (ICD Code) Assessment Notes Treatment Notes Treatment Clinical Notes Section Notes 12/25/2024 Type 2 diabetes mellitus without complication (ICD-10 - E11.9) 12/25/2024 Arthritis (ICD-10 - M19.90) 12/25/2024 Essential hypertension (ICD-10 - I10) 12/25/2024 Laceration of left knee, subsequent encounter (ICD-10 - S81.012D) 12/25/2024 Acquired hypothyroidism (ICD-10 - E03.9) 12/25/2024 GERD (gastroesophageal reflux disease) (ICD-10 - K21.9) 12/25/2024 Acute systolic congestive heart failure (ICD-10 - I50.21) 12/25/2024 Mild intermittent asthma without complication (ICD-10 - J45.20) 12/25/2024 Acute cellulitis (ICD-10 - L03.90) Plan Of Treatment Medication Medication Name Sig Start Date Stop Date Notes Furosemide 80 MG TAKE ONE TABLET BY M OUTH TWICE A DAY Orally teice a day for 90 days Spiriva Respimat 1.25 MCG/ACT INHALE 2 P UFFS DAILY Inhalation Once a day for 90 days Flovent HFA 220 MCG/ACT USE 2 PUFFS TWIC E DAILY Inhalation Twice a day for 90 days Ventolin HFA 108 (90 Base) MCG/ACT 2 puffs as needed Inhalation every 4 hrs for 90 days 10/30/2019 Omeprazole 20 MG 1 capsule 30 minutes before morning meal Orally Once a day for 90 days Aspir-Low 81 MG 1 tablet Orally Once a day for 90 days Amoxicillin 500 MG 1 capsule Orally blank ry 8 hrs for 5 day(s) 06/20/2022 Benadryl Allergy 25 MG 2 tablet at bedti me as needed Orally twice aday for 90 days Gabapentin 100 MG 1 capsule Orally Onc e a day in the morning for 90 days Levothyroxine Sodium 75 MCG 1 tablet in the morning on an empty stomach Orally Once a day for 90 days Potassium Chloride ER 10 MEQ TAKE ONE TA BLET BY MOUTH TWICE A DAY WITH FOOD Orally Twice a day for 90 days Dymista 137-50 MCG/ACT USE 1 SPRAY EACH NOSTRIL TWICE A DAY Nasal Twice a day for 90 days DULoxetine HCl 60 MG TAKE ONE CAPSULE BY MOUTH EVERY DAY Orally Once a day for 90 days Gabapentin 400 MG 1 capsule Orally Onc e a day for 90 days Valsartan 40 MG TAKE ONE TABLET BY M OUTH EVERY DAY Orally Once a day for 90 days MiraLax 17 GM/SCOOP 1 scoop mixed with 8 ounces of fluid Orally Once a day for 90 days ZyrTEC Allergy 10 MG 1 tablet Orally Onc e a day for 90 days traZODone HCl 50 MG 1 tablet at bedtime as needed Orally Once a day for 30 day(s) Bepreve 1.5 % INSTILL 1 TO 2 DROPS IN EACH EYE DAILY NEEDED Ophthalmic Twice a day for 20 days [facility] Unifine Pentips Plus 31G X 6 MM USE DIRECTED TWO TIMES A DAY SUBCUTANEOUSLY sq Two times a day for 90 days Mounjaro 5 MG/0.5ML INJECT CONTENTS OF O NE PEN UNDER THE SKIN ONCE A WEEK for 28 Calcitriol 0.25 MCG 1 capsule Orally Thr ee times a Week for 90 days Lantus SoloStar 100 UNIT/ML 70 units Sub cutaneous 70 units twice a day for 90 days Florastor 250 MG TAKE ONE CAPSULE BY MOUTH TWICE A DAY Orally twice a day for 90 days Ferrous Sulfate 325 (65 Fe) MG 1 tablet Orally Once a day for 90 days Allopurinol 100 MG TAKE TWO TABLETS BY MOUTH EVERY DAY Oral Once a day for 90 days Ondansetron 4 MG 1 tablet on the tong ue and allow to dissolve Orally twicea day for 7 days 11/30/2023 Nystop 905890 UNIT/GM APPLY ONE APPLICAT ION EXTERNALLY TWO TIMES A DAY Externally Twice a day for 90 days Meclizine HCl 25 MG TAKE ONE TABLET BY M OUTH TWICE A DAY NEEDED Orally every 12 hrs for 28 days Atorvastatin Calcium 20 MG TAKE ONE TABL ET BY MOUTH EVERY DAY for 90 Next Appt Details Provider Name:Omid jor, 06/05/2025 02:00:00 PM, [address] [place] [address], [id number], Provider Name:Omid jor, 08/27/2025 07:30:00 AM, [address] [place] [address], [phone], Provider Name:Omid jor, 09/03/2025 02:00:00 PM, [address] [place] [address], [phone], Provider Name:Omid jor, 03/01/2026 07:30:00 AM, [address] [place] [address], [phone], Provider Name:Omid jor, 03/08/2026 02:30:00 PM, [address] [place] [address], [phone], Progress Notes * Vy WAITE LDOB:1945 (79 yo F)Acc No.[id number]:12/25/2024 Patient: Vy VILLAFANA :1945 A ge:79 Y S ex:Female Address:[address] [place] [id number] * Refills Refill Mounjaro Solution Auto-injector, 5 MG/0.5ML, 2 Milliliter, INJECT CONTENTS OF ONE PEN UNDER THE SKIN ONCE A WEEK, 28, Refills=3 Refill Calcitriol Capsule, 0.25 MCG, Orally, 36, 1 capsule, Three times a Week, 90 days, Refills=3 Refill Lantus SoloStar Solution Pen-injector, 100 UNIT/ML, Subcutaneous, 70 units, 70 units twice a day, 90 days, Refills=4 Refill Florastor Capsule, 250 MG, Orally, 180, TAKE ONE CAPSULE BY MOUTH TWICE A DAY, twice a day, 90 days, Refills=4 Refill MiraLax Powder, 17 GM/SCOOP, Orally, 25, 1 scoop mixed with 8 ounces of fluid, Once a day, 90 days, Refills=4 Refill ZyrTEC Allergy Tablet, 10 MG, Orally, 90 Tablet, 1 tablet, Once a day, 90 days, Refills=4 Refill traZODone HCl Tablet, 50 MG, Orally, 30, 1 tablet at bedtime as needed, Once a day, 30 day(s), Refills=0 Refill Bepreve Solution, 1.5 %, Ophthalmic, 1, INSTILL 1 TO 2 DROPS IN EACH EYE DAILY NEEDED, Twice a day, 20 days, Refills=3 Refill [facility]One Unifine Pentips Plus Miscellaneous, 31G X 6 MM, sq, 200, USE DIRECTED TWO TIMES A DAY SUBCUTANEOUSLY, Two times a day, 90 days, Refills=4 Refill Potassium Chloride ER Tablet Extended Release, 10 MEQ, Orally, 180, TAKE ONE TABLET BY MOUTH TWICE A DAY WITH FOOD, Twice a day, 90 days, Refills=4 Refill Dymista Suspension, 137-50 MCG/ACT, Nasal, 3, USE 1 SPRAY EACH NOSTRIL TWICE A DAY, Twice a day, 90 days, Refills=4 Refill DULoxetine HCl Capsule Delayed Release Particles, 60 MG, Orally, 90, TAKE ONE CAPSULE BY MOUTH EVERY DAY, Once a day, 90 days, Refills=4 Refill Gabapentin Capsule, 400 MG, Orally, 90 Capsule, 1 capsule, Once a day, 90 days, Refills=4 Refill Valsartan Tablet, 40 MG, Orally, 90, TAKE ONE TABLET BY MOUTH EVERY DAY, Once a day, 90 days, Refills=4 Refill Aspir-Low Tablet Delayed Release, 81 MG, Orally, 90 Tablet, 1 tablet, Once a day, 90 days, Refills=4 Refill Amoxicillin Capsule, 500 MG, Orally, 15, 1 capsule, every 8 hrs, 5 day(s), Refills=5 Refill Benadryl Allergy Tablet, 25 MG, Orally, 180, 2 tablet at bedtime as needed, twice aday, 90 days, Refills=4 Refill Gabapentin Capsule, 100 MG, Orally, 90, 1 capsule, Once a day in the morning, 90 days, Refills=4 Refill Levothyroxine Sodium Tablet, 75 MCG, Orally, 90 Tablet, 1 tablet in the morning on an empty stomach, Once a day, 90 days, Refills=4 Refill Omeprazole Capsule Delayed Release, 20 MG, Orally, 90, 1 capsule 30 minutes before morning meal, Once a day, 90 days, Refills=4 Refill Furosemide Tablet, 80 MG, Orally, 180, TAKE ONE TABLET BY MOUTH TWICE A DAY, teice a day, 90 days, Refills=4 Refill Spiriva Respimat Aerosol Solution, 1.25 MCG/ACT, Inhalation, 3, INHALE 2 PUFFS DAILY, Once a day, 90 days, Refills=4 Refill Flovent HFA Aerosol, 220 MCG/ACT, Inhalation, 3, USE 2 PUFFS TWICE DAILY, Twice a day, 90 days, Refills=4 Refill Ventolin HFA Aerosol Solution, 108 (90 Base) MCG/ACT, Inhalation, 3, 2 puffs as needed, every 4 hrs, 90 days, Refills=4 Refill Allopurinol Tablet, 100 MG, Oral, 180, TAKE TWO TABLETS BY MOUTH EVERY DAY, Once a day, 90 days, Refills=3 Refill Ondansetron Tablet Disintegrating, 4 MG, Orally, 20, 1 tablet on the tongue and allow to dissolve, twicea day, 7 days, Refills=3 Refill Nystop Powder, 271667 UNIT/GM, Externally, 1, APPLY ONE APPLICATION EXTERNALLY TWO TIMES A DAY, Twice a day, 90 days, Refills=3 Refill Meclizine HCl Tablet, 25 MG, Orally, 56 Tablet, TAKE ONE TABLET BY MOUTH TWICE A DAY NEEDED, every 12 hrs, 28 days, Refills=2 Refill Atorvastatin Calcium Tablet, 20 MG, 90 Tablet, TAKE ONE TABLET BY MOUTH EVERY DAY, 90, Refills=4 Refill Ferrous Sulfate Tablet, 325 (65 Fe) MG, Orally, 90 Tablet, 1 tablet, Once a day, 90 days, Refills=4 * true * Date: Generated for Jeannie grady/Kevin/Cony on: 05/03/2024 06:23 PM EST
--- OUTSIDE RECORDS SUMMARY | 2025-01-27 06:15 | XMS_ITS ---
Author Organization Omid Jimenes MD Address [address] [place] [phone] Care Team Providers Care Internet Marketing Assistant Name Role Phone Omid Jimenes Primary [...] ve Results Component Value Reference Range Notes Hemoglobin A1c Reviewed date:01/27/2025 11:25:38 AM Interpretation: Performing Lab: Notes/Report: Hemoglobin A1c 6.2 Glucose, finger stick Reviewed date:01/27/2025 11:21:16 AM Interpretation: Performing Lab: Notes/Report: Value 172 REASON FOR VISIT 3 month, Accompanied by son Medications Medication SIG (Take, Route, Frequency, Duration) Notes Start Date End Date Status Valsartan 40 MG TAKE ONE TABLET BY M OUTH EVERY DAY Orally Once a day for 90 days Active Gabapentin 400 MG 1 capsule Orally Onc e a day for 90 days Active Benadryl Allergy 25 MG 2 tablet at bedti me as needed Orally twice aday for 90 days Active Amoxicillin 500 MG 1 capsule Orally blank ry 8 hrs for 5 day(s) 06/20/2022 Active Aspir-Low 81 MG 1 tablet Orally Once a day for 90 days Active DULoxetine HCl 60 MG TAKE ONE CAPSULE BY MOUTH EVERY DAY Orally Once a day for 90 days Active Dymista 137-50 MCG/ACT USE 1 SPRAY EACH NOSTRIL TWICE A DAY Nasal Twice a day for 90 days Active Potassium Chloride ER 10 MEQ TAKE ONE TABLET BY MOUTH TWICE A DAY WITH FOOD Orally Twice a day for 90 days Active CareOne Unifine Pentips Plus 31G X 6 MM USE DIRECTED TWO TIMES A DAY SUBCUTANEOUSLY sq Two times a day for 90 days Active Bepreve 1.5 % INSTILL 1 TO 2 DROPS IN EACH EYE DAILY NEEDED Ophthalmic Twice a day for 20 days Active traZODone HCl 50 MG 1 tablet at bedtime as needed Orally Once a day for 30 day(s) Active ZyrTEC Allergy 10 MG 1 tablet Orally Onc e a day for 90 days Active MiraLax 17 GM/SCOOP 1 scoop mixed with 8 ounces of fluid Orally Once a day for 90 days Active Florastor 250 MG TAKE ONE CAPSULE BY MOUTH TWICE A DAY Orally twice a day for 90 days Active Lantus SoloStar 100 UNIT/ML 70 units Subcutaneous 70 units twice a day Active Calcitriol 0.25 MCG 1 capsule Orally Thr ee times a Week for 90 days Active Calcitriol 0.25 MCG 1 capsule Orally Thr ee times a Week for 90 days Active HYDROcodone-Acetaminophen 7.5-325 MG (Schedule II Drug) TAKE 1 TABLET BY MOUTH EVERY 8 HOURS NEEDED FOR PAIN Oral for 30 Active Mounjaro 7.5 MG/0.5ML INJECT CONTENTS OF ONE PEN UNDER THE SKIN ONCE A WEEK Subcutaneous weekly for 28 days Active Ventolin HFA 108 (90 Base) MCG/ACT 2 puffs as needed Inhalation every 4 hrs 10/30/2019 Active Atorvastatin Calcium 20 MG TAKE ONE TABL ET BY MOUTH EVERY DAY for 90 Active Meclizine HCl 25 MG TAKE ONE TABLET BY M OUTH TWICE A DAY NEEDED Orally every 12 hrs for 28 days Active Spiriva Respimat 1.25 MCG/ACT INHALE 2 PUFFS DAILY Inhalation Once a day Active Ferrous Sulfate 325 (65 Fe) MG 1 tablet Orally Once a day for 90 days Active Flovent HFA 220 MCG/ACT USE 2 PUFFS TWIC E DAILY Inhalation Twice a day Active Allopurinol 100 MG TAKE TWO TABLETS BY MOUTH EVERY DAY Oral Once a day for 90 days Active Nystop 213270 UNIT/GM APPLY ONE APPLICAT ION EXTERNALLY TWO TIMES A DAY Externally Twice a day for 90 days Active Ondansetron 4 MG 1 tablet on the tong ue and allow to dissolve Orally twicea day for 7 days 11/30/2023 Active Furosemide 80 MG TAKE ONE TABLET BY M OUTH TWICE A DAY Orally teice a day for 90 days Active Omeprazole 20 MG 1 capsule 30 minutes before morning meal Orally Once a day for 90 days Active Gabapentin 100 MG 1 capsule Orally Onc e a day in the morning for 90 days Active Levothyroxine Sodium 75 MCG 1 tablet in the morning on an empty stomach Orally Once a day for 90 days Active Problems Problem Type SNOMED Code ICD Code Onset Dates Problem Status W/U Status Risk Notes Problem Irregular heart beat (402394649) Irregular heart beat (I49.9) Active confirmed Vital Signs Blood pressure systolic 152 mm Hg 01/28/20 25 Blood pressure diastolic 70 mm Hg 025 Height 64 in 01/27/2025 Weight 249 lbs 01/27/2025 BMI 42.74 kg/m2 01/27/2025 weight is up 3 pounds since 09-29-24 Encounters Encounter Location Date Provider Diagnosis Omid Jimenes MD [address] [place] [address] [address] [place], [place] [phone] 01/27/2025 Omid Jimenes Type 2 diabetes mellitus without complication E11.9 ; Mild intermittent asthma without complication J45.20 and Irregular heart beat I49.9 Assessments Encounter Date Diagnosis (ICD Code) Assessment Notes Treatment Notes Treatment Clinical Notes Section Notes 01/27/2025 Type 2 diabetes mellitus without complication (ICD-10 - E11.9) stable, will continue current regiment 01/27/2025 Mild intermittent asthma without complication (ICD-10 - J45.20) stable, will continue current regiment 01/27/2025 Irregular heart beat (ICD-10 - I49.9) ecg shows sinus rythm and frequent pac's 01/27/2025 Other Total time spent on the date of the encounter is 50 minutes including both face to face time spent and time spent reviewing documentation, pertinent lab data, studies and counseling the patient. Plan Of Treatment Medication Medication Name Sig Start Date Stop Date Notes Lantus SoloStar 100 UNIT/ML 70 units Sub cutaneous 70 units twice a day Mounjaro 7.5 MG/0.5ML INJECT CONTENTS OF ONE PEN UNDER THE SKIN ONCE A WEEK Subcutaneous weekly for 28 days Ventolin HFA 108 (90 Base) MCG/ACT 2 puffs as needed Inhalation every 4 hrs 10/30/2019 Spiriva Respimat 1.25 MCG/ACT INHALE 2 PUFFS DAILY Inhalation Once a day Flovent HFA 220 MCG/ACT USE 2 PUFFS TWIC E DAILY Inhalation Twice a day Treatment Notes Assessment Notes Type 2 diabetes mellitus wit hout complication stable, will continue current regiment Mild intermittent asthma wit hout complication stable, will continue current regiment Irregular heart beat ecg shows sinus ryt hm and frequent pac's Other Total time spent on the date of the encounter is 50 minutes including both face to face time spent and time spent reviewing documentation, pertinent lab data, studies and counseling the patient. Pending Test Test Name Order Date Electrocardiogram (EKG) 01/27/2025 Next Appt Details Follow Up: 3 Months, Reason: Provider Name:Omid borden, 06/05/2025 02:00:00 PM, [address] [place] [address], [place] [address], [place], [place], [phone], Provider Name:Omid borden, 08/27/2025 07:30:00 AM, [address] [place] [address], [address], [place], [phone], Provider Name:Omid Akhtar ier, 09/03/2025 02:00:00 PM, [address] [facility], [address], [place], [phone], Provider Name:Omid Akhtar ier, 03/01/2026 07:30:00 AM, [address] [facility], Suite [facility], [place], [place], [phone], Provider Name:Omid Akhtar ier, 03/08/2026 02:30:00 PM, [address] [facility], [address], [place], [phone], Progress Notes * RAVINDRA Vy LDOB:1945 (79 yo F)Acc No.[id number]:01/27/2025 Progress Notes Patient: Fannie MCGHEEREGGIERiabradford De Leon Provider: Naomie Jimenes MD :1945 A ge:79 Y S ex:Female Date:01/27/2025 Address:[address] [place] [address] Subjective: * Chief Complaints: * 3 monthAccompanied by son * HPI: S ymptom(s): patientis a 79 yo female here for 3 month follow up visit/ having pains in entire left side. shoulders and left side. pain management is increasing her pain meds. * ROS: G eneral/Constitutional: Denies C hills. D enies F atigue. D enies F ever. D enies H eadache. E NT: Denies S ore throat. R espiratory: Denies C ough. D enies S hortness of breath at rest. D enies S hortness of breath with exertion. G astrointestinal: Denies D iarrhea. D enies N ausea. * Medical History: * Surgical History: * Hospitalization/Major Diagno stic Procedure: * Medications: T akingHYDROcodone-Acetaminophen 7.5-325 MG Tablet (Schedule II Drug) TAKE 1 TABLET BY MOUTH EVERY 8 HOURS NEEDED FOR PAIN Oral Calcitriol 0.25 MCG Capsule 1 capsule Orally Three times a Week Mounjaro 5 MG/0.5ML Solution Auto-injector INJECT CONTENTS OF ONE PEN UNDER THE SKIN ONCE A WEEK Calcitriol 0.25 MCG Capsule 1 capsule Orally Three times a Week Lantus SoloStar 100 UNIT/ML Solution Pen-injector 70 units Subcutaneous 70 units twice a day Florastor 250 MG Capsule TAKE ONE CAPSULE BY MOUTH TWICE A DAY Orally twice a day MiraLax 17 GM/SCOOP Powder 1 scoop mixed with 8 ounces of fluid Orally Once a day ZyrTEC Allergy 10 MG Tablet 1 tablet [...] allow to dissolve Orally twicea day Nystop 126445 UNIT/GM Powder APPLY ONE APPLICATION EXTERNALLY TWO TIMES A DAY Externally Twice a day Meclizine HCl 25 MG Tablet TAKE ONE TABLET BY MOUTH TWICE A DAY NEEDED Orally every 12 hrs Atorvastatin Calcium 20 MG Tablet TAKE ONE TABLET BY MOUTH EVERY DAY Ferrous Sulfate 325 (65 Fe) MG Tablet 1 tablet Orally Once a day Medication List reviewed and reconciled with the patientTaking HYDROcodone-Acetaminophen 7.5-325 MG Tablet (Schedule II Drug) TAKE 1 TABLET BY MOUTH EVERY 8 HOURS NEEDED FOR PAIN Oral Taking Calcitriol 0.25 MCG Capsule 1 capsule Orally Three times a Week Taking Mounjaro 5 MG/0.5ML Solution Auto-injector INJECT CONTENTS OF ONE PEN UNDER THE SKIN ONCE A WEEK Taking Calcitriol 0.25 MCG Capsule 1 capsule Orally Three times a Week Taking Lantus SoloStar 100 UNIT/ML Solution Pen-injector 70 units Subcutaneous 70 units twice a day Taking Florastor 250 MG Capsule TAKE ONE CAPSULE BY MOUTH TWICE A DAY Orally twice a day Taking MiraLax 17 GM/SCOOP Powder 1 scoop mixed with 8 ounces of fluid Orally Once a day Taking ZyrTEC Allergy 10 MG Tablet 1 [...] to dissolve Orally twicea day Taking Nystop 989945 UNIT/GM Powder APPLY ONE APPLICATION EXTERNALLY TWO TIMES A DAY Externally Twice a day Taking Meclizine HCl 25 MG Tablet TAKE ONE TABLET BY MOUTH TWICE A DAY NEEDED Orally every 12 hrs Taking Atorvastatin Calcium 20 MG Tablet TAKE ONE TABLET BY MOUTH EVERY DAY Taking Ferrous Sulfate 325 (65 Fe) MG Tablet 1 tablet Orally Once a day Medication List reviewed and reconciled with the patient * Allergies: q uinolones: knee painsulfa: GI UPSETbacitracin oint: eye swellingtobradex: redness swellingLipitor: crampsPravachol: crampsyes[Allergies Verified] Objective: * Vitals: H t: 64, Wt: 249, BMI:42.74, BP:152/70, Repeat BP:120/76, Wt-k.95. weight is up 3 pounds since 09-29-24. * Examination: G eneral Examination: GENERAL APPEARANCE: a lert, well hydrated, in no distress.? HEAD: n ormocephalic. SKIN: g ood turgor. HEART: r egular rate and rhythm, no murmurs, rubs, gallops with frequent extrasytoles. LUNGS: n o wheezes, rales, rhonchi, good air movement, clear to auscultation bilaterally. Assessment: * Assessment: 1. T ype 2 diabetes mellitus without complication - E11.9 (Primary) 2 . M ild intermittent asthma without complication - J45.20 3 . I rregular heart beat - I49.9 Plan: * Treatment: Value Reference Range H emoglobin A1c 6.2 ?LAB: Glucose, finger stick (Collection Date & Time - 01/27/2025)* Value Reference Range V aluaddison 172 Notes: stable, will continue current regiment??2.?Mild intermittent asthma without complication? Continue Spiriva Respimat Aerosol Solution, 1.25 MCG/ACT, INHALE 2 PUFFS DAILY, Inhalation, Once a day;?Continue Flovent HFA Aerosol, 220 MCG/ACT, USE 2 PUFFS TWICE DAILY, Inhalation, Twice a day;?Continue Ventolin HFA Aerosol Solution, 108 (90 Base) MCG/ACT, 2 puffs as needed, Inhalation, every 4 hrs.?? Notes: stable, will continue current regiment??3.?Irregular heart beat?Imaging: Electrocardiogram (EKG)* Notes: ecg shows sinus rythm and frequent pac's??4.?Others? Notes: Total time spent on the date of the encounter is 50 minutes including both face to face timespent and time spent reviewing documentation, pertinent lab data, studies and counseling the patient.?? * Procedure Codes: 8 2947 ASSAY, GLUCOSE, BLOOD QUANT, Modifiers: QW 82421 GLYCATED HEMOGLOBIN TEST, Modifiers: QW 94157 -ELECTROCARDIOGRAM, [id number] Complex e/m visit add on * Follow Up: 3 Months * * Sign off status: Completed true * Provider: Naomie Jimenes MD Date: 0 01/27/2025 Generated for Jeannie grady/Kevin/eTmagdalenasmitting on: 1 05/03/2024 06:25 PM EST History and Physical Notes * HPI (History of Present Illness) Category Sub-Category Detail Notes Category Not es Symptom(s) patientis a 79 yo female here for 3 month follow up visit/ having pains in entire left side. shoulders and left side. pain management is increasing her pain meds. Examination Category Sub-Category Detail Notes Category Not es General Examination GENERAL APPEARANCE: alert, w ell hydrated, in no distress HEAD: normocephalic HEART: regular rate and rhy thm, no murmurs, rubs, gallops with frequent extrasytoles LUNGS: no wheezes, rales, r honchi, good air movement, clear to auscultation bilaterally SKIN: good turgor
--- OUTSIDE RECORDS SUMMARY | 2025-02-03 08:12 | XMS_ITS ---
Author Organization Omid Jimenes MD Address [address] [place] [phone] Support Name Relationship Address Phone Omid Jimenes Caregiver [address] [facility] [address] [place] [phone] Allan Elam Caregiver [address] [facility] [address] [place] [phone] Chris Nunes Caregiver [address] [facility] [address] [place] [phone] MARCO CAMPBELL Caregiver [address] [facility] [address] manolo [address] [place] [phone] Santos Lopezry Caregiver [address] [place] [phone] CARLO HERRERA Caregiver [address] [facility] [address] [place] [phone] Rupert Canchola Caregiver [address] [facility] [address] [place] [phone] Kavita Diaz Caregiver [address] [facility] [address] [place] [phone] Unavailable Emergency Contact Unknown [phone] Vy Waite Guarantor Unknown [phone] Care Team Providers Care Chemical Machine Tender Name Role Phone Omid Jimenes Primary Care Provider REASON FOR VISIT all meds must be sent electronically Medications Medication SIG (Take, Route, Frequency, Duration) Notes Start Date End Date Status Allopurinol 100 MG TAKE TWO TABLETS BY MOUTH EVERY DAY Oral Once a day for 90 days Active Ondansetron 4 MG 1 tablet on the tong ue and allow to dissolve Orally twicea day for 7 days 11/30/2023 Active Nystop 718859 UNIT/GM APPLY ONE APPLICAT ION EXTERNALLY TWO TIMES A DAY Externally Twice a day for 90 days Active Meclizine HCl 25 MG TAKE ONE TABLET BY M OUTH TWICE A DAY NEEDED Orally every 12 hrs for 28 days Active Atorvastatin Calcium 20 MG TAKE ONE TABL ET BY MOUTH EVERY DAY for 90 Active Omeprazole 20 MG 1 capsule 30 minutes before morning meal Orally Once a day for 90 days Active Furosemide 80 MG TAKE ONE TABLET BY M OUTH TWICE A DAY Orally teice a day for 90 days Active Benadryl [...] Twice a day for 90 days Active Aspir-Low [...] Twice a day for 90 days Active MiraLax 17 GM/SCOOP 1 scoop mixed with 8 ounces of fluid Orally Once a day for 90 days Active ZyrTEC Allergy 10 MG 1 tablet Orally Onc e a day for 90 days Active Lantus SoloStar 100 UNIT/ML 70 units Subcutaneous 70 units twice a day for 90 days Active Flovent HFA 220 MCG/ACT USE 2 PUFFS TWIC E DAILY Inhalation Twice a day for 90 days Active Calcitriol 0.25 MCG 1 capsule Orally Thr ee times a Week for 90 days Active Florastor 250 MG TAKE ONE CAPSULE BY MOUTH TWICE A DAY Orally twice a day for 90 days Active Ventolin HFA 108 (90 Base) MCG/ACT 2 puffs as needed Inhalation every 4 hrs for 90 days 10/30/2019 Active Ferrous Sulfate 325 (65 Fe) MG 1 tablet Orally Once a day for 90 days Active Encounters Encounter Location Date Provider Diagnosis Omid Jimenes MD [address] [place] [address] [address] [place], [place] [phone] 02/03/2025 Omid Jimenes Type 2 diabetes mellitus without complication E11.9 ; Mild intermittent asthma without complication J45.20 ; Arthritis M19.90 ; Essential hypertension I10 ; Acquired hypothyroidism E03.9 ; GERD (gastroesophageal reflux disease) K21.9 ; Acute systolic congestive heart failure I50.21 and Acute cellulitis L03.90 Assessments Encounter Date Diagnosis (ICD Code) Assessment Notes Treatment Notes Treatment Clinical Notes Section Notes 02/03/2025 Type 2 diabetes mellitus without complication (ICD-10 - E11.9) 02/03/2025 Mild intermittent asthma without complication (ICD-10 - J45.20) 02/03/2025 Arthritis (ICD-10 - M19.90) 02/03/2025 Essential hypertension (ICD-10 - I10) 02/03/2025 Acquired hypothyroidism (ICD-10 - E03.9) 02/03/2025 GERD (gastroesophageal reflux disease) (ICD-10 - K21.9) 02/03/2025 Acute systolic congestive heart failure (ICD-10 - I50.21) 02/03/2025 Acute cellulitis (ICD-10 - L03.90) Plan Of Treatment Medication Medication Name Sig Start Date Stop Date Notes Allopurinol 100 MG TAKE TWO TABLETS BY MOUTH EVERY DAY Oral Once a day for 90 days Ondansetron 4 MG 1 tablet on the tong ue and allow to dissolve Orally twicea day for 7 days 11/30/2023 Nystop 100425 UNIT/GM APPLY ONE APPLICAT ION EXTERNALLY TWO TIMES A DAY Externally Twice a day for 90 days Meclizine HCl 25 MG TAKE ONE TABLET BY M OUTH TWICE A DAY NEEDED Orally every 12 hrs for 28 days Atorvastatin Calcium 20 MG TAKE ONE TABL ET BY MOUTH EVERY DAY for 90 Omeprazole 20 MG 1 capsule 30 minutes before morning meal Orally Once a day for 90 days Furosemide 80 MG TAKE ONE TABLET BY M OUTH TWICE A DAY Orally teice a day for 90 days Benadryl Allergy 25 MG 2 tablet at bedti me as needed Orally twice aday for 90 days Gabapentin 100 MG 1 capsule Orally Onc e a day in the morning for 90 days Levothyroxine Sodium 75 MCG 1 tablet in the morning on an empty stomach Orally Once a day for 90 days DULoxetine HCl 60 MG TAKE ONE CAPSULE BY MOUTH EVERY DAY Orally Once a day for 90 days Dymista 137-50 MCG/ACT USE 1 SPRAY EACH NOSTRIL TWICE A DAY Nasal Twice a day for 90 days Aspir-Low 81 MG 1 tablet Orally Once a day for 90 days Gabapentin 400 MG 1 capsule Orally Onc e a day for 90 days Valsartan 40 MG TAKE ONE TABLET BY M OUTH EVERY DAY Orally Once a day for 90 days Bepreve 1.5 % INSTILL 1 TO 2 DROPS IN EACH EYE DAILY NEEDED Ophthalmic Twice a day for 20 days CareOne Unifine Pentips Plus 31G X 6 MM USE DIRECTED TWO TIMES A DAY SUBCUTANEOUSLY sq Two times a day for 90 days Potassium Chloride ER 10 MEQ TAKE ONE TA BLET BY MOUTH TWICE A DAY WITH FOOD Orally Twice a day for 90 days MiraLax 17 GM/SCOOP 1 scoop mixed with 8 ounces of fluid Orally Once a day for 90 days ZyrTEC Allergy 10 MG 1 tablet Orally Onc e a day for 90 days Lantus SoloStar 100 UNIT/ML 70 units Sub cutaneous 70 units twice a day for 90 days Flovent HFA 220 MCG/ACT USE 2 PUFFS TWIC E DAILY Inhalation Twice a day for 90 days Calcitriol 0.25 MCG 1 capsule Orally Thr ee times a Week for 90 days Florastor 250 MG TAKE ONE CAPSULE BY MOUTH TWICE A DAY Orally twice a day for 90 days Ventolin HFA 108 (90 Base) MCG/ACT 2 puffs as needed Inhalation every 4 hrs for 90 days 10/30/2019 Ferrous Sulfate 325 (65 Fe) MG 1 tablet Orally Once a day for 90 days Next Appt Details Provider Name:Omid borden, 06/05/2025 02:00:00 PM, [address] [place] [address], [address], [place], [phone], Provider Name:Omid borden, 08/27/2025 07:30:00 AM, [address] [place] [address], [address], [place], [place], [phone], Provider Name:Omid borden, 09/03/2025 02:00:00 PM, [address] [place] [address], Suite [facility], [place], [place], [phone], Provider Name:Omid Akhtar ier, 03/01/2026 07:30:00 AM, [address] [place] [address], [place] [address], [place], [place], [phone], Provider Name:Omid Akhtar ier, 03/08/2026 02:30:00 PM, [address] [place] [address], [place] [address], [place], [place], [phone], Progress Notes * Vy WAITE LDOB:1945 (79 yo F)Acc No.[id number]:02/03/2025 Patient: Vy VILLAFANA :1945 A ge:79 Y S ex:Female Address:[address] [place] [id number] * Refills Refill Lantus SoloStar Solution Pen-injector, 100 UNIT/ML, Subcutaneous, 20, 70 units, 70 units twice a day, 90 days, Refills=3 Refill Flovent HFA Aerosol, 220 MCG/ACT, Inhalation, 3, USE 2 PUFFS TWICE DAILY, Twice a day, 90 days, Refills=3 Refill Ventolin HFA Aerosol Solution, 108 (90 Base) MCG/ACT, Inhalation, 3, 2 puffs as needed, every 4 hrs, 90 days, Refills=3 Refill Calcitriol Capsule, 0.25 MCG, Orally, 36, 1 capsule, Three times a Week, 90 days, Refills=4 Refill Florastor Capsule, 250 MG, Orally, 180, TAKE ONE CAPSULE BY MOUTH TWICE A DAY, twice a day, 90 days, Refills=4 Refill MiraLax Powder, 17 GM/SCOOP, Orally, 25, 1 scoop mixed with 8 ounces of fluid, Once a day, 90 days, Refills=4 Refill ZyrTEC Allergy Tablet, 10 MG, Orally, 90 Tablet, 1 tablet, Once a day, 90 days, Refills=4 Refill Bepreve Solution, 1.5 %, Ophthalmic, 1, [...] Once a day, 90 days, Refills=4 Refill Benadryl Allergy Tablet, 25 MG, Orally, [...] teice a day, 90 days, Refills=4 Refill Allopurinol Tablet, 100 MG, Oral, 180, TAKE TWO TABLETS BY MOUTH EVERY DAY, Once a day, 90 days, Refills=3 Refill Ondansetron Tablet Disintegrating, 4 MG, Orally, 20, 1 tablet on the tongue and allow to dissolve, twicea day, 7 days, Refills=3 Refill Nystop Powder, 245112 UNIT/GM, Externally, 1, APPLY ONE APPLICATION EXTERNALLY [...] Date: Generated for Jeannie grady/Kevin/Cony on: 05/03/2024 06:25 PM EST
--- OUTSIDE RECORDS SUMMARY | 2025-02-19 08:58 | XMS_ITS ---
Author Organization Omid Jimenes MD Address [address] [place] [phone] Care Team Providers Care Sales Contractor Name Role Phone Omid Jimenes Primary Care Provider [phone] REASON FOR VISIT needs to increase mounjaro to 7.5mg Medications Medication SIG (Take, Route, Fr equency, Duration) Notes Start Date End Date Status Mounjaro 7.5 MG/0.5ML INJECT CONTENTS OF ONE PEN UNDER THE SKIN ONCE A WEEK Subcutaneous weekly for 28 days Active Encounters Encounter Location Date Provider Diagnosis Omid Jimenes MD [address] [place] [address] [phone] 02/19/2025 Omid Jimenes Type 2 diabetes mellitus without complication E11.9 Assessments Encounter Date Diagnosis (ICD Code) Assessment Notes Treatment Notes Treatment Clinical Notes Section Notes 02/19/2025 Type 2 diabetes mellitus without complication (ICD-10 - E11.9) Plan Of Treatment Medication Medication Name Sig Start Date Stop Date Notes Mounjaro 7.5 MG/0.5ML INJECT CONTENTS OF ONE PEN UNDER THE SKIN ONCE A WEEK Subcutaneous weekly for 28 days Next Appt Details Provider Name:Omid Akhtar ier, 06/05/2025 02:00:00 PM, [address] [place] [address], [phone], Provider Name:Omid borden, 08/27/2025 07:30:00 AM, [address] [place] [address], [phone], Provider Name:Omid jor, 09/03/2025 02:00:00 PM, [address] [place] [address], [phone], Provider Name:Omid jor, 03/01/2026 07:30:00 AM, [address] [place] [address], [phone], Provider Name:Omid jor, 03/08/2026 02:30:00 PM, [address] [place] [address], [phone], Progress Notes * Vy WAITE LDOB:1945 (79 yo F)Acc No.[id number]:02/19/2025 Patient: Fannie Vy ALONZO :1945 A ge:79 Y S ex:Female Address:[address] [place] [phone] * Refills Refill Mounjaro Solution Auto-injector, 7.5 MG/0.5ML, Subcutaneous, 1, INJECT CONTENTS OF ONE PEN UNDER THE SKIN ONCE A WEEK, weekly, 28 days, Refills=3 * true * Date: Generated for Jeannie grady/Kevin/Cony on: 05/03/2024 06:25 PM EST
--- OUTSIDE RECORDS SUMMARY | 2025-02-24 02:15 | XMS_ITS ---
Author Organization Omid Jimenes MD Address [address] [place] [address] [phone] Care Team Providers Care Dermatology Nurse Name Role Phone Omid Jimenes Primary Care Provider REASON FOR VISIT yearly fasting labs Encounters Encounter Location Date Provider Diagnosis Omid Jimenes MD [address] [place] [address] [phone] 02/24/2025 Omid Jimenes Acquired hypothyroid ism E03.9 ; Essential hypertension I10 ; Pure hypercholesterolemia E78.00 and Acute systolic congestive heart failure I50.21 Assessments Encounter Date Diagnosis (ICD Code) Assessment Notes Treatment Notes Treatment Clinical Notes Section Notes 02/24/2025 Acquired hypothyroid ism (ICD-10 - E03.9) 02/24/2025 Essential hypertensi on (ICD-10 - I10) 02/24/2025 Pure hypercholesterolemia (ICD-10 - E78.00) 02/24/2025 Acute systolic congestive heart failure (ICD-10 - I50.21) Plan Of Treatment Pending Test Test Name Order Date Complete Blood Count Auto Diff Comprehensive Jasper. Panel Fast Lipid Panel 02/24/2025 TSH reflex Free T4 02/24/2025 UA ClnCatch+Micro w/rflx Cult 02/24/2025 Next Appt Details Provider Name:Omid borden, 06/05/2025 02:00:00 PM, [address] [place] [address], [address], [phone], Provider Name:Omid jor, 08/27/2025 07:30:00 AM, [address] [place] [address], [address], [phone], Provider Name:Omid jor, 09/03/2025 02:00:00 PM, [address] [place] [address], [phone], Provider Name:Omid jor, 03/01/2026 07:30:00 AM, [address] [place] [address], [phone], Provider Name:Omid jor, 03/08/2026 02:30:00 PM, [address] [place] [address], [address], [phone], Progress Notes * Vy WAITE LDOB:1945 (79 yo F)Acc No.[id number]:02/24/2025 Progress Note Patient: Vy VILLAFANA Provider: Naomie Jimenes MD :1945 A ge:79 Y S ex:Female Date:02/24/2025 Address:[address] [place] [address] Subjective: * Chief Complaints: * 1 . Yearly fasting labs. * Medical History: Objective: * Vitals: Assessment: * Assessment: 1. A cquired hypothyroidism - E03.9 (Primary) 2 . E ssential hypertension - I10 3 . P ure hypercholesterolemia - E78.00 4 . A cute systolic congestive heart failure - I50.21 Plan: * Treatment: 2. E ssential hypertension L AB: Complete Blood Count Auto Diff L AB: Comprehensive Jasper. Panel Fast L AB: Lipid Panel L AB: TSH reflex Free T4 L AB: UA ClnCatch+Micro w/rflx Cult 3. P ure hypercholesterolemia L AB: Complete Blood Count Auto Diff L AB: Comprehensive Jasper. Panel Fast L AB: Lipid Panel L AB: TSH reflex Free T4 L AB: UA ClnCatch+Micro w/rflx Cult 4. A cute systolic congestive heart failure L AB: Complete Blood Count Auto Diff L AB: Comprehensive Jasper. Panel Fast L AB: Lipid Panel L AB: TSH reflex Free T4 L AB: UA ClnCatch+Micro w/rflx Cult * * The named appointment provid er may or may not be the originator of this progress note, and it is not deemed complete until electronically signed by the appointment provider. Sign off status: Pending * Provider: Naomie Jimenes MD Date: Generated for Jeannie grady/Kevin/Willisitting on: 05/03/2024 06:24 PM EST
--- OUTSIDE RECORDS SUMMARY | 2025-03-03 09:30 | XMS_ITS ---
Author Organization Omid Jimenes MD Address [address] [place] [phone] Care Team Providers Care Mold Preparer Name Role Phone Omid Jimenes Primary Care [...] ve Results Component Value Reference Range Notes Blood Urea Nitrogen (Not yet reviewed by provider) Interpretation: Performing Lab:[address] [id number] Notes/Report: Blood Urea Nitrogen 31 9-16 mg/dL Creatinine Reviewed date:03/03/2025 05:19:36 PM Interpretation: Performing Lab:[facility], [address] [place] [id number] Notes/Report: Creatinine 1.26 0.5-1.4 mg/dL Estimated Glomerular Filt Rate 41 Chronic Kidney Disease: Estimated GFR < 60 mL/min/1.73m2 Severe Kidney Disease: Estimated GFR < 15 mL/min/1.73m2 REASON FOR VISIT Labs in patient docs, Needs repeat BUN Creatinine, needs Free Style lite lancets test strips and alcohol wipes needs DX needs to be on the script and Albuterol for updraft, Accompanied by son Medications Medication SIG (Take, Route, Frequency, Duration) Notes Start Date End Date Status Allopurinol 100 MG TAKE TWO TABLETS BY MOUTH EVERY DAY Oral Once a day for 90 days Active Ondansetron 4 MG 1 tablet on the tong ue and allow to dissolve Orally twicea day for 7 days 11/30/2023 Active Meclizine HCl 25 MG TAKE ONE TABLET BY M OUTH TWICE A DAY NEEDED Orally every 12 hrs for 28 days Active Atorvastatin Calcium 20 MG TAKE ONE TABL ET BY MOUTH EVERY DAY for 90 Active Albuterol Sulfate (2.5 MG/3ML) 0.083% 3 mL as needed Inhalation every 6 hrs for 90 days 03/03/2025 Active Aspir-Low 81 MG 1 tablet Orally Once a day for 90 days Active Gabapentin 100 MG 1 capsule Orally Onc e a day in the morning for 90 days Active Levothyroxine Sodium 75 MCG 1 tablet in the morning on an empty stomach Orally Once a day for 90 days Active Mounjaro 7.5 MG/0.5ML INJECT CONTENTS OF ONE PEN UNDER THE SKIN ONCE A WEEK Subcutaneous weekly for 28 days Active Omeprazole 20 MG 1 capsule [...] twice a day for 90 days Active [facility]One Unifine Pentips Plus 31G X 6 MM USE DIRECTED TWO TIMES A DAY SUBCUTANEOUSLY sq Two times a day for 90 days Active Potassium Chloride ER 10 MEQ TAKE ONE TABLET BY MOUTH TWICE A DAY WITH FOOD Orally Twice a day for 90 days Active Benadryl Allergy 25 MG 2 tablet at bedti me as needed Orally twice aday for 90 days Active Calcitriol 0.25 MCG 1 capsule Orally Thr ee times a Week for 90 days Active Amoxicillin 500 MG 1 capsule Orally blank ry 8 hrs for 5 day(s) 06/20/2022 Active Spiriva Respimat 1.25 MCG/ACT INHALE 2 [...] 4 hrs for 90 days 10/30/2019 Active ZyrTEC Allergy 10 MG 1 tablet Orally Onc e a day for 90 days Active Bepreve 1.5 % INSTILL 1 TO 2 DROPS IN EACH EYE DAILY NEEDED Ophthalmic Twice a day for 20 days Active traZODone HCl 50 MG 1 tablet at bedtime as needed Orally Once a day for 30 day(s) Active Calcitriol 0.25 MCG 1 capsule Orally Thr ee times a Week for 90 days Active MiraLax 17 GM/SCOOP 1 scoop mixed with 8 ounces of fluid Orally Once a day for 90 days Active HYDROcodone-Acetaminophen 7.5-325 MG (Schedule II Drug) TAKE 1 TABLET BY MOUTH EVERY 8 HOURS NEEDED FOR PAIN Oral for 30 Active Ferrous Sulfate 325 (65 Fe) MG 1 tablet Orally Once a day for 90 days Active Nyamyc 390135 UNIT/GM APPLY TO AFFECTED AREA TWO TIMES A DAY for 30 Active Torsemide 20 MG 3 tabs twice a day O rally twice a day Active Social History Tobacco Use: Social History [...] No Points 0 Interpretation Negative Vital Signs Blood pressure systolic 152 mm Hg 03/03/20 25 Blood pressure diastolic 60 mm Hg 025 Height 64 in 03/03/2025 Weight 242 lbs 03/03/2025 BMI 41.53 kg/m2 03/03/2025 weightb is down 7 pounds sin ce 01-27-25 Encounters Encounter Location Date Provider Diagnosis Omid Jimenes MD [address] [place] [address] [place] [phone] 03/03/2025 Omid Jimenes Mild intermittent as thma without complication J45.20 ; Type 2 diabetes mellitus without complication E11.9 ; Arthritis M19.90 ; Essential hypertension I10 ; Acquired hypothyroidism E03.9 ; Laceration of left knee, subsequent encounter S81.012D ; GERD (gastroesophageal reflux disease) K21.9 ; Acute systolic congestive heart failure I50.21 ; Acute cellulitis L03.90 ; Elevated BUN R79.9 ; Aortic valve disorder I35.9 ; Pure hypercholesterolemia E78.00 and Chest pressure R07.89 Assessments Encounter Date Diagnosis (ICD Code) Assessment Notes Treatment Notes Treatment Clinical Notes Section Notes 03/03/2025 Mild intermittent asthma without complication (ICD-10 - J45.20) 03/03/2025 Type 2 diabetes mellitus without complication (ICD-10 - E11.9) well controlled 03/03/2025 Arthritis (ICD-10 - M19.90) 03/03/2025 Essential hypertensi on (ICD-10 - I10) 03/03/2025 Acquired hypothyroid ism (ICD-10 - E03.9) 03/03/2025 Laceration of left knee, subsequent encounter (ICD-10 - S81.012D) has recovered 03/03/2025 GERD (gastroesophage al reflux disease) (ICD-10 - K21.9) 03/03/2025 Acute systolic congestive heart failure (ICD-10 - I50.21) 03/03/2025 Acute cellulitis (ICD-10 - L03.90) has resolved 03/03/2025 Elevated BUN (ICD-10 - R79.9) is going to repeat 03/03/2025 Aortic valve disorde r (ICD-10 - I35.9) had a tavr 03/03/2025 Pure hypercholesterolemia (ICD-10 - E78.00) doing well 03/03/2025 Chest pressure (ICD- 10 - R07.89) if pressure comes back to call her manufacturing plant controller 03/03/2025 Other Total time spent on the date of the encounter is 45 minutes including both face to face time spent and time spent reviewing documentation, and counseling the patient. Plan Of Treatment Medication Medication Name Sig Start Date Stop Date Notes Allopurinol 100 MG TAKE TWO TABLETS BY MOUTH EVERY DAY Oral Once a day for 90 days Ondansetron 4 MG 1 tablet on the tong ue and allow to dissolve Orally twicea day for 7 days 11/30/2023 Meclizine HCl 25 MG TAKE ONE TABLET BY M OUTH TWICE A DAY NEEDED Orally every 12 hrs for 28 days Atorvastatin Calcium 20 MG TAKE ONE TABL ET BY MOUTH EVERY DAY for 90 Albuterol Sulfate (2.5 MG/3ML) 0.083% 3 mL as needed Inhalation every 6 hrs for 90 days 03/03/2025 Aspir-Low 81 MG 1 tablet Orally Once a day for 90 days Gabapentin 100 MG 1 capsule Orally Onc e a day in the morning for 90 days Levothyroxine Sodium 75 MCG 1 tablet in the morning on an empty stomach Orally Once a day for 90 days Omeprazole 20 MG 1 capsule 30 minutes [...] Orally Once a day for 90 days Florastor 250 MG TAKE ONE CAPSULE BY MOUTH TWICE A DAY Orally twice a day for 90 days [facility] Unifine Pentips Plus 31G X 6 MM USE DIRECTED TWO TIMES A DAY SUBCUTANEOUSLY sq Two times a day for 90 days Potassium Chloride ER 10 MEQ TAKE ONE TA BLET BY MOUTH TWICE A DAY WITH FOOD Orally Twice a day for 90 days Calcitriol 0.25 MCG 1 capsule Orally Thr ee times a Week for 90 days Amoxicillin 500 MG 1 capsule Orally blank ry 8 hrs for 5 day(s) 06/20/2022 Spiriva Respimat 1.25 MCG/ACT INHALE 2 P UFFS DAILY Inhalation Once a day for 90 days Lantus SoloStar 100 UNIT/ML 70 units Sub cutaneous 70 units twice a day for 90 days Flovent HFA 220 MCG/ACT USE 2 PUFFS TWIC E DAILY Inhalation Twice a day for 90 days Ventolin HFA 108 (90 Base) MCG/ACT 2 puffs as needed Inhalation every 4 hrs for 90 days 10/30/2019 Calcitriol 0.25 MCG 1 capsule Orally Thr ee times a Week for 90 days Ferrous Sulfate 325 (65 Fe) MG 1 tablet Orally Once a day for 90 days Nyamyc 535075 UNIT/GM APPLY TO AFFECTED AREA TWO TIMES A DAY for 30 Treatment Notes Assessment Notes Type 2 diabetes mellitus without complic ation well controlled Laceration of left knee, subsequent enco unter has recovered Acute cellulitis has resolved Elevated BUN is going to repeat Aortic valve disorder had a tavr Pure hypercholesterolemia doing well Chest pressure if pressure comes ba ck to call her manufacturing plant controller Other Total time spent on the date of the encounter is 45 minutes including both face to face time spent and time spent reviewing documentation, and counseling the patient. Pending Test Test Name Order Date Blood Urea Nitrogen 03/03/2025 Next Appt Details Follow Up: 3 Months, Reason: Provider Name:Omid borden, 06/05/2025 02:00:00 PM, [address] [place] [address], Suite [facility], [place], [place], [phone], Provider Name:Omid borden, 08/27/2025 07:30:00 AM, [address] [place] [address], Suite [facility], [place], [place], [phone], Provider Name:Omid borden, 09/03/2025 02:00:00 PM, [address] [place] [address], [place] [address], [place], [place], [phone], Provider Name:Omid Akhtar ier, 03/01/2026 07:30:00 AM, [address], [address], [place], [phone], Provider Name:Omid Akhtar ier, 03/08/2026 02:30:00 PM, [address], [address], [place], [phone], Progress Notes * RAVINDRARiayn LDOB:1945 (79 yo F)Acc No.[id number]:03/03/2025 Patient: Vy VILLAFANA Provider: Naomie Jimenes MD :1945 A ge:79 Y S ex:Female Date:03/03/2025 Address:[address] [place] [address] Subjective: * Chief Complaints: * 1 . Labs in patient docs. 2. Needs repeat BUN Creatinine. 3. needs Free Style lite lancets test strips and alcohol wipes needs DX needs to be on the script and Albuterol for updraft. 4. Accompanied by son. * HPI: D epression Screening: PHQ-9 L ittle interest or pleasure in doing things N ot at all, F eeling down, depressed, or hopeless N ot at all, T rouble falling or staying asleep, or sleeping too much N ot at all, F eeling tired or having little energy N ot at all, P oor appetite or overeating N ot at all, F eeling bad about yourself or that you are a failure, or have let yourself or your family down N ot at all, T rouble concentrating on things, such as reading the newspaper or watching television N ot at all, M oving or speaking so slowly that other people could have noticed; or the opposite, being so fidgety or restless that you have been moving around a lot more than usual N ot at all, T houghts that you would be better off or of hurting yourself in some way N ot at all, T otal Score 0 . C ommunication Needs: Communication Needs D oes the patient have a hearing impairment N o, D oes the patient have a vision impairment? Y es, I f yes, what is the vision impairment? G lasses, D oes the patient have a cognition impairment? N o. F all Risk: History H ave you had any falls with injury in the past year? N o, H ave you had two or more falls in the past year? N o. S MERRY Questions: SDOH Questions I n the past year have you been worried about losing housing? N o, I n the past year have you or any family members you live with been unable to get any of the following when it was really needed? Check all that apply: N one. * ROS: G eneral/Constitutional: Change in appetite d enies. C hills d enies. F ever d enies. O phthalmologic: Blurred vision d enies. D ischarge d enies. P ain d enies. E NT: Decreased hearing d enies. S ore throat d enies.?Swollen glands d enies. E ndocrine: Cold intolerance d enies. E xcessive thirst d enies. H eat intolerance d enies. W eight loss d enies. R espiratory: Cough d enies. S hortness of breath at rest d enies. S hortness of breath with exertion d enies. W heezing d enies. C ardiovascular: Patient complaining of m ild pressure for hours in chest last night. used to use nitro for that rested and it went. C hest pain at rest d enies. C hest pain with exertion d enies. I rregular heartbeat d enies. S hortness of breath?denies. G astrointestinal: Abdominal pain d enies. C hange in bowel habits d enies. D iarrhea d enies. N ausea d enies. R ectal bleeding d enies. V omiting d enies . G enitourinary: Blood in urine d enies. D ifficulty urinating d enies. F requent urination d enies. U rinary incontinence D enies. M usculoskeletal: Painful joints d enies. W eakness d enies. ? S kin: Dry skin d enies. I tching d enies. D enies?Mole(s), changes in moles, new moles or any lesions of concern. D enies P hotosensitivity. R michelle d enies. N eurologic: Dizziness d enies. F ainting d enies. H eadache?denies. * Medical History: E ndoscopy and colonoscopy done 05/2007; both done 01/30/2014 repeat in 5 : 03/28/22 colonocopy awaiting path, Hematuria work up in , Needs yearly echo - DX Aortic Stenosis (done 06/2015), Ct abdomen 12/21 at [facility] normal. * Family History: F ather: 68 yrs. M other: 97 yrs, diagnosed with Alzheimer disease. 4 brother(s) , 5 sister(s) . 2 son(s) . . Father-CVA Mother-Alzheimer\'s Atrial Fib 1 Brother, Denies mental health/substance abuse family history, No pertinent family medical history, No pertinent family medical history. * Social History: T obacco Use: T obacco Use/Smoking P atient is a n onsmoker, A dditional Findings: Tobacco Non-User F ormer smoker, currently using no form of tobacco. D rugs/Alcohol: A lcohol Screen D id you have a drink containing alcohol in the past year? N o, P oints 0 , I nterpretation N egative. M iscellaneous: C affeine: yes, frequency:, 2-3 cups per day. Children: yes. Exercise: no. Home smoke detector use: yes. Housing: owning. Living with: family. Marital status: . Occupation: retired. Pets: none. * Medications: T aking Torsemide 20 MG Tablet 3 tabs twice a day Orally twice a day , Taking HYDROcodone-Acetaminophen 7.5-325 MG Tablet (Schedule II Drug) TAKE 1 TABLET BY MOUTH EVERY 8 HOURS NEEDED FOR PAIN Oral , Taking Calcitriol 0.25 MCG Capsule 1 capsule Orally Three times a Week , Taking traZODone HCl 50 MG Tablet 1 tablet at bedtime as needed Orally Once a day , Taking Amoxicillin 500 MG Capsule 1 capsule Orally every 8 hrs , Taking Spiriva Respimat 1.25 MCG/ACT Aerosol Solution INHALE 2 PUFFS DAILY Inhalation Once a day , Taking Lantus SoloStar 100 UNIT/ML Solution Pen-injector 70 units Subcutaneous 70 units twice a day , Taking Flovent HFA 220 MCG/ACT Aerosol USE 2 PUFFS TWICE DAILY Inhalation Twice a day , Taking Ventolin HFA 108 (90 Base) MCG/ACT Aerosol Solution 2 puffs as needed Inhalation every 4 hrs , Taking Calcitriol 0.25 MCG Capsule 1 capsule Orally Three times a Week , Taking Florastor 250 MG Capsule TAKE ONE CAPSULE BY MOUTH TWICE A DAY Orally twice a day , Taking MiraLax 17 GM/SCOOP Powder 1 scoop mixed with 8 ounces of fluid Orally Once a day , Taking ZyrTEC Allergy 10 MG Tablet 1 tablet Orally Once a day , Taking Bepreve 1.5 % Solution INSTILL 1 TO 2 DROPS IN EACH EYE DAILY NEEDED Ophthalmic Twice a day , Taking CareOne Unifine Pentips Plus 31G X 6 MM Miscellaneous USE DIRECTED TWO TIMES A DAY SUBCUTANEOUSLY sq Two times a day , Taking Potassium Chloride ER 10 MEQ Tablet Extended Release TAKE ONE TABLET BY MOUTH TWICE A DAY WITH FOOD Orally Twice a day , Taking Dymista 137-50 MCG/ACT Suspension USE 1 SPRAY EACH NOSTRIL TWICE A DAY Nasal Twice a day , Taking DULoxetine HCl 60 MG Capsule Delayed Release Particles TAKE ONE CAPSULE BY MOUTH EVERY DAY Orally Once a day , Taking Gabapentin 400 MG Capsule 1 capsule Orally Once a day , Taking Valsartan 40 MG Tablet TAKE ONE TABLET BY MOUTH EVERY DAY Orally Once a day , Taking Aspir-Low 81 MG Tablet Delayed Release 1 tablet Orally Once a day , Taking Benadryl Allergy 25 MG Tablet 2 tablet at bedtime as needed Orally twice aday , Taking Gabapentin 100 MG Capsule 1 capsule Orally Once a day in the morning , Taking Levothyroxine Sodium 75 MCG Tablet 1 tablet in the morning on an empty stomach Orally Once a day , Taking Omeprazole 20 MG Capsule Delayed Release 1 capsule 30 minutes before morning meal Orally Once a day , Taking Furosemide 80 MG Tablet TAKE ONE TABLET BY MOUTH TWICE A DAY Orally teice a day , Taking Allopurinol 100 MG Tablet TAKE TWO TABLETS BY MOUTH EVERY DAY Oral Once a day , Taking Ondansetron 4 MG Tablet Disintegrating 1 tablet on the tongue and allow to dissolve Orally twicea day , Taking Meclizine HCl 25 MG Tablet TAKE ONE TABLET BY MOUTH TWICE A DAY NEEDED Orally every 12 hrs , Taking Atorvastatin Calcium 20 MG Tablet TAKE ONE TABLET BY MOUTH EVERY DAY , Taking Ferrous Sulfate 325 (65 Fe) MG Tablet 1 tablet Orally Once a day , Taking Nyamyc 979275 UNIT/GM Powder APPLY TO AFFECTED AREA TWO TIMES A DAY , Taking Mounjaro 7.5 MG/0.5ML Solution Auto- injector INJECT CONTENTS OF ONE PEN UNDER THE SKIN ONCE A WEEK Subcutaneous weekly * Allergies: q uinolones: knee pain, sulfa: GI UPSET, bacitracin oint: eye swelling, tobradex: redness swelling, Lipitor: cramps, Pravachol: cramps. Objective: * Vitals: H t: 64, Wt: 242, BMI:41.53, BP:152/60, Repeat BP:120/60, Wt-k.77. weightb is down 7 pounds since 01-27-25. * Examination: G eneral Examination: GENERAL APPEARANCE: w ell developed, well nourished, in no acute distress. HEAD: n ormocephalic, atraumatic. EYES: p upils equal, round, reactive to light and accommodation, sclera non-icteric. EARS: n ormal. ORAL CAVITY: m ucosa moist. THROAT: c lear. NECK/THYROID: n benjie supple, full range of motion, no cervical lymphadenopathy, no bruits. SKIN: w arm and dry, no suspicious lesions. HEART: r egular rate and rhythm, S1, S2 normal, no murmurs.? LUNGS: c lear to auscultation bilaterally. BREASTS: N o mass, no lump. ABDOMEN: s oft, nontender, nondistended, bowel sounds present, normal, no organomegaly , no masses palpable. RECTAL EXAM: d eclined. FEMALE GENITOURINARY: d one by head kiln operator. EXTREMITIES: n o clubbing, cyanosis, or edema. NEUROLOGIC: n onfocal, motor strength normal upper and lower extremities, sensory exam intact. Assessment: * Assessment: 1. M ild intermittent asthma without complication - J45.20 (Primary) 2 . T ype 2 diabetes mellitus without complication - E11.9 3 . A rthritis - M19.90? 4. E ssential hypertension - I10 5 . A cquired hypothyroidism - E03.9 6 . L aceration of left knee, subsequent encounter - S81.012D 7 . G ERD (gastroesophageal reflux disease) - K21.9 8 . A cute systolic congestive heart failure - I50.21 9 . A cute cellulitis - L03.90 10. E levated BUN - R79.9 1 1. A ortic valve disorder - I35.9 1 2. P ure hypercholesterolemia - E78.00 1 3. C hest pressure - R07.89? Plan: * Treatment: 2. T ype 2 diabetes mellitus without complication Refill Lantus SoloStar Solution Pen-injector, 100 UNIT/ML, 70 units, Subcutaneous, 70 units twice a day, 90 days, 20, Refills 3; R efill Meclizine HCl Tablet, 25 MG, TAKE ONE TABLET BY MOUTH TWICE A DAY NEEDED, Orally, every 12 hrs, 28 days, 56 Tablet, Refills 2. Notes: well controlled 3. A rthritis Refill Gabapentin Capsule, 400 MG, 1 capsule, Orally, Once a day, 90 days, 90 Capsule, Refills 4;?Refill Gabapentin Capsule, 100 MG, 1 capsule, Orally, Once a day in the morning, 90 days, 90, Refills 4. 4. E ssential hypertension Refill Valsartan Tablet, 40 MG, TAKE ONE TABLET BY MOUTH EVERY DAY, Orally, Once a day, 90 days, 90, Refills 4. 5. A cquired hypothyroidism Refill Levothyroxine Sodium Tablet, 75 MCG, 1 tablet in the morning on an empty stomach, Orally, Once a day, 90 days, 90 Tablet, Refills 4. 6. L aceration of left knee, subsequent encounter Refill Amoxicillin Capsule, 500 MG, 1 capsule, Orally, every 8 hrs, 5 day(s), 15, Refills 5; S tart Albuterol Sulfate Nebulization Solution, (2.5 MG/3ML) 0.083%, 3 mL as needed, Inhalation, every 6 hrs, 90 days, 1080 ML, Refills 3. Notes: has recovered 7. G ERD (gastroesophageal reflux disease) Refill Omeprazole Capsule Delayed Release, 20 MG, 1 capsule 30 minutes before morning meal, Orally, Once a day, 90 days, 90, Refills 4. 8. A cute cellulitis Refill Ondansetron Tablet Disintegrating, 4 MG, 1 tablet on the tongue and allow to dissolve, Orally, twicea day, 7 days, 20, Refills 3. Notes: has resolved 9. E levated BUN L AB: Blood Urea Nitrogen (Collection Date & Time - 03/03/2025 02:30 PM) L AB: Creatinine (Collection Date & Time - 03/03/2025 02:30 PM) Notes: is going to repeat 10. A ortic valve disorder Notes: had a tavr 11. P ure hypercholesterolemia Notes: doing well 12. C hest pressure Notes: if pressure comes back to call her manufacturing plant controller 13. O thers Refill Calcitriol Capsule, 0.25 MCG, 1 capsule, Orally, Three times a Week, 90 days, 36, Refills 3;?Refill Calcitriol Capsule, 0.25 MCG, 1 capsule, Orally, Three times a Week, 90 days, 36, Refills 4; R efill Florastor Capsule, 250 MG, TAKE ONE CAPSULE BY MOUTH TWICE A DAY, Orally, twice a day, 90 days, 180, Refills 4; R efill [facility] Unifine Pentips Plus Miscellaneous, 31G X 6 MM, USE DIRECTED TWO TIMES A DAY SUBCUTANEOUSLY, sq, Two times a day, 90 days, 200, Refills 4; R efill Potassium Chloride ER Tablet Extended Release, 10 MEQ, TAKE ONE TABLET BY MOUTH TWICE A DAY WITH FOOD, Orally, Twice a day, 90 days, 180, Refills 4; R efill Dymista Suspension, 137-50 MCG/ACT, USE 1 SPRAY EACH NOSTRIL TWICE A DAY, Nasal, Twice a day, 90 days, 3, Refills 4; R efill DULoxetine HCl Capsule Delayed Release Particles, 60 MG, TAKE ONE CAPSULE BY MOUTH EVERY DAY, Orally, Once a day, 90 days, 90, Refills 4; R efill Aspir-Low Tablet Delayed Release, 81 MG, 1 tablet, Orally, Once a day, 90 days, 90 Tablet, Refills 4; R efill Allopurinol Tablet, 100 MG, TAKE TWO TABLETS BY MOUTH EVERY DAY, Oral, Once a day, 90 days, 180, Refills 3; R efill Atorvastatin Calcium Tablet, 20 MG, TAKE ONE TABLET BY MOUTH EVERY DAY, 90, 90 Tablet, Refills 4; R efill Ferrous Sulfate Tablet, 325 (65 Fe) MG, 1 tablet, Orally, Once a day, 90 days, 90 Tablet, Refills 4; R efill Nyamyc Powder, [id number] UNIT/GM, APPLY TO AFFECTED AREA TWO TIMES A DAY, 30, 60 Gram, Refills 3. Notes: Total time spent on the date of the encounter is 45 minutes including both face to face time spent and time spent reviewing documentation, and counseling the patient. * Procedure Codes: 3 6415 VENIPUNCT, ROUTINE*, G2211 Complex e/m visit add on * Follow Up: 3 Months * * The named appointment provid er may or may not be the originator of this progress note, and it is not deemed complete until electronically signed by the appointment provider. Sign off status: Pending * Provider: Naomie Jiemnes MD Date: 05/03/2024 Generated for Jeannie grady/Kevin/Willisitting on: 05/03/2024 06:24 PM EST History and Physical Notes * HPI (History of Present Illness) Category Sub-Category Detail Notes Category Not es Depression Screening PHQ-9 Little inte rest or pleasure in doing things: Not at all Feeling down, depressed, or hopeless: No t [...] had two or more falls in the st year?: No Communication Needs Communication Needs Does the patient have a hearing impairment: No Does the patient have a vision impairmen t?: Yes If yes, what is the vision impairment?: Glasses Does the patient have a cognition impair ment?: No Examination Category Sub-Category Detail Notes Category Not es General Examination GENERAL APPEARANCE: well dev eloped, well nourished, in no acute distress HEAD: normocephalic, atrau matic EYES: pupils equal, round, reactive to light and accommodation, sclera non-icteric EARS: normal THROAT: clear NECK/THYROID: neck supple, [...] BREASTS: No mass, no lump RECTAL EXAM: declined FEMALE GENITOURINARY: done by head kiln operator ORAL CAVITY: mucosa moist
[2025-03-03 16:36] LABS: Blood Urea Nitrogen 31 mg/dL (9-16); Estimated Glomerular Filt Rate 41
--- OUTSIDE RECORDS SUMMARY | 2025-03-03 18:26 | XMS_ITS | Encounter Summary ---
Author Organization [facility] Address [address] [place] [address] Phone Care Team Providers Care Fountain Server Name Role Phone Omid Jimenes MD Primary Care Provider Omid Jimenes MD Unavailable [phone] Emmanuel Lyman MD Unavailable [phone] Lizandro Guallpa MD Unavailable Cameron Vital MD, MSc Unavailable [phone] Encounter Details Date Type Department Care Team (Late st Contact Info) Description 09/25/2024 Procedure Pass [facility] Cardiac US [address] [place] [address] Social History Tobacco Use Types Packs/Day Years [...] Care Team (Late st Contact Info) Description 03/10/2025 10:40 AM EST Office Visit [facility] Rheumatology [address] [place] [address] Geraldine Jay MD, MPH [address], [address] [place] [address] [email or web address] documented as of this encounter Visit Diagnoses Not on filedocumented in this encounter Additional Health Concerns Assessment Noted Time PHQ-9 Depression Total Score: 3 05/24/19 22 2:24 PM EST documented as of this encounter Care Teams Fountain Server Relationship Specialty Start Date End Date Omid Jimenes MD [address] [place] [address] [place] [address] PCP - General 10/28/13 Omid Jimenes MD [address] [place] [address] [place] [address] Historical LMR Provider 02/15/17 Emmanuel Lyman MD [address] [place] [address] [id number] [place] [address] [email or web address] Verse Writer Cardiology 11/22/20 Lizandro Guallpa MD [address] [place] [address] [id number] [place] [address] [email or web address] Rheumatology 03/03/21 Cameron Vital MD, MSc [address] [place] [address] [id number] [place] [address] [email or web address] Verse Writer Cardiology 03/03/21 documented as of this encounter Additional Source Comments The information contained in this document represents components of the legal health record. It is not the complete legal health record.[facility]
--- OUTSIDE RECORDS SUMMARY | 2025-03-03 18:26 | XMS_ITS | Encounter Summary ---
Author Organization [facility] Address [address] [place] [address] Phone Care Team Providers Care Prop Drawer Name Role Phone Omid Jimenes MD Primary Care Provider Ramsey Ortez MD Unavailable [email or web address] [email or web address] Omid Jimenes MD Unavailable [phone] Emmanuel Lyman MD Unavailable [phone] Lizandro Guallpa MD Unavailable Cameron Vital MD, MSc Unavailable [phone] Encounter Details Date Type Department Care Team (Late st Contact Info) Description 06/11/2019 Ancillary Orders [facility], X-Ray - [address] [place] [address] Rupert Canchola MD [address] [place] [address] [address] Right hip pain Social History Tobacco Use [...] Description 03/10/2025 10:40 AM EST Office Visit [facility] Rheumatology [address] [place] [address] Geraldine Jay MD, MPH [address] [facility], [address] [place] [address] [email or web address] documented as of this encounter Results * XR HIP 2 VW RIGHT PLUS PELVIS (06/11/2019 8:57 AM EST) Anatomical Region Laterality Modality Hip, Pelvis Radiographic Karena ging 06/11/2019 9:05 AM EST Impressions 06/11/2019 9:07 AM EST Stable negligible osteoarthritis. No new bony pathology. POS [id number] Narrative 06/11/2019 9:07 AM EST AP pelvis [...] negligible osteoarthritis. No new bony pathology. POS [id number] us Rupert Canchola MD IMG XR PELVIS Final Result documented in this encounter Visit Diagnoses Diagnosis Right hip pain Pain in joint, pelvic region and thigh Right hip pain Pain in joint, pelvic region and thigh documented in this encounter Additional Health Concerns Infection Onset Date Last Indicated Resolved Time CoV-Risk 12/07/2023 12/07/2023 12/18/2023 1:22 AM EDT documented as of this encounter Care Teams Prop Drawer Relationship Specialty Start Date End Date Omid Jimenes MD [address] [place] [address] Dr COBB [address] [place] [address] PCP - General 10/28/13 Ramsey Ortez MD [email or web address] Historical LMR Provider 02/15/17 03/02/21 Omid Jimenes MD [address] [place] [address] Dr COBB [address] [place] [address] [place] [address] Historical LMR Provider 02/15/17 Emmanuel Lyman MD [address] [place] [address] [id number] [place] [address] [email or web address] Ocean Fishing Guide Cardiology 11/22/20 Lizandro Guallpa MD [address] [place] [address] [id number] [place] [address] [email or web address] Rheumatology 03/03/21 Cameron Vital MD, MSc [address] [place] [address] [email or web address] Ocean Fishing Guide Cardiology 03/03/21 documented as of this encounter Additional Source Comments The information contained in this document represents components of the legal health record. It is not the complete legal health record.[facility]
--- OUTSIDE RECORDS SUMMARY | 2025-03-03 18:26 | XMS_ITS | Encounter Summary ---
Author Organization [facility] Address [address] [place] [address] Phone Care Team Providers Care Drone Software Development Engineer Name Role Phone Omid Jimenes MD Primary Care Provider Omid Jimenes MD Unavailable [phone] Emmanuel Lyman MD Unavailable [phone] Lizandro Guallpa MD Unavailable Cameron Vital MD, MSc Unavailable [phone] Encounter Details Date Type Department Care Team (Late st Contact Info) Description 02/27/2025 Orders Only [facility] Cardiology [address] [place] [address] Leni Gramajo, ADVERTISING SALES ASSOCIATE [address] [place] [phone] [email or web address] Social History Tobacco Use Types Packs/Day Years [...] Description 03/10/2025 10:40 AM EST Office Visit [facility] Rheumatology [address] [place] [address] Geraldine Jay MD, MPH [address], [address] [place] [address] documented as of this encounter Visit Diagnoses Not on filedocumented in this encounter Additional Health Concerns Assessment Noted Time PHQ-9 Depression Total Score: 3 05/24/19 22 2:24 PM EST documented as of this encounter Care Teams Drone Software Development Engineer Relationship Specialty Start Date End Date Omid Jimenes MD [address] [place] [address] [place] [address] PCP - General 10/28/13 Omid Jimenes MD [address] [place] [address] [place] [address] Historical LMR Provider 02/15/17 Emmanuel Lyman MD [address] [place] [address] [id number] [place] [address] [email or web address] Advertising Sales Associate Cardiology 11/22/20 Lizandro Guallpa MD [address] [place] [address] [id number] [place] [address] [email or web address] Rheumatology 03/03/21 Cameron Vital MD, MSc [address] [place] [address] [id number] [place] [address] [email or web address] Advertising Sales Associate Cardiology 03/03/21 documented as of this encounter Additional Source Comments The information contained in this document represents components of the legal health record. It is not the complete legal health record.[facility]
--- OUTSIDE RECORDS SUMMARY | 2025-03-03 18:26 | XMS_ITS | Encounter Summary ---
Author Organization [facility] Address [address] [place] [address] Phone Care Team Providers Care Senior C Web Developer Name Role Phone Omid Jimenes MD Primary Care Provider Ramsey Ortez MD Unavailable [email or web address] [email or web address] Omid Jimenes MD Unavailable [phone] Emmanuel Lyman MD Unavailable [phone] Lizandro Guallpa MD Unavailable Cameron Vital MD, MSc Unavailable [phone] Encounter Details Date Type Department Care Team (Late st Contact Info) Description 12/23/2018 Transcribe Orders [facility] Specimen Processing [address] [place], [place] [id number] Marc Emmanuel MD [address] [facility], [address] [place], [place] [id number] [email or web address] Social History Tobacco Use Types Packs/Day Years [...] Description 03/10/2025 10:40 AM EST Office Visit [facility] Rheumatology [address] [place] [address] Geraldine Jay MD, MPH [address] [place] [address] [email or web address] documented as of this encounter Visit Diagnoses Not on filedocumented in this encounter Additional Health Concerns Infection Onset Date Last Indicated Resolved Time CoV-Risk 12/07/2023 12/07/2023 12/18/2023 1:22 AM EDT documented as of this encounter Care Teams Senior C Web Developer Relationship Specialty Start Date End Date Omid Jimenes MD [address] [place] [address] [place] [address] PCP - General 10/28/13 Ramsey Ortez MD [email or web address] Historical LMR Provider 02/15/17 03/02/21 Omid Jimenes MD [address] [place] [address] [place] [address] Historical LMR Provider 02/15/17 Emmanuel Lyman MD [address] [id number] [place] [address] [email or web address] Examination Grader Cardiology 11/22/20 Lizandro Guallpa MD [address] [place] [address] [id number] [place] [address] [email or web address] 03/03/21 Cameron Vital MD, MSc [address] [place] [address] [id number] [place] [address] [email or web address].[facility] Examination Grader Cardiology 03/03/21 documented as of this encounter Additional Source Comments The information contained in this document represents components of the legal health record. It is not the complete legal health record.[facility]
--- OUTSIDE RECORDS SUMMARY | 2025-03-03 18:26 | XMS_ITS | Encounter Summary ---
Author Organization [facility] Address [address] [place] [address] Phone Care Team Providers Care Slip Cover Cutter Name Role Phone Omid Jimenes MD Primary Care Provider Ramsey Ortez MD Unavailable [email or web address] [email or web address] Omid Jimenes MD Unavailable [phone] Emmanuel Lyman MD Unavailable [phone] Lizandro Guallpa MD Unavailable Cameron Vital MD, MSc Unavailable [phone] Encounter Details Date Type Department Care Team (Late st Contact Info) Description 12/09/2018 Procedure Pass [facility] Endoscopy Admitting Dept Virtual Department [address] [place] [address] [phone] Social History Tobacco Use Types Packs/Day Years [...] Description 03/10/2025 10:40 AM EST Office Visit [facility] Rheumatology [address] [place] [address] Geraldine Jay MD, MPH [address] [place] [address], [address] [place] [address] [email or web address] documented as of this encounter Visit Diagnoses Not on filedocumented in this encounter Additional Health Concerns Infection Onset Date Last Indicated Resolved Time CoV-Risk 12/07/2023 12/07/2023 12/18/2023 1:22 AM EDT documented as of this encounter Care Teams Slip Cover Cutter Relationship Specialty Start Date End Date Omid Jimenes MD [address] [place] [address] [place] [address] PCP - General 10/28/13 Ramsey Ortez MD [email or web address] Historical LMR Provider 02/15/17 03/02/21 Omid Jimenes MD [address] [place] [address] [place] [address] Historical LMR Provider 02/15/17 Emmanuel Lyman MD [address] [place] [address] [id number] [place] [address] [email or web address] Burlap Bag Sewer Cardiology 11/22/20 Lizandro Guallpa MD [address] [place] [address] [id number] [place] [address] [email or web address] Rheumatology 03/03/21 Cameron Vital MD, MSc [address] [place] [address] [id number] [place] [address] [email or web address] Burlap Bag Sewer Cardiology 03/03/21 documented as of this encounter Additional Source Comments The information contained in this document represents components of the legal health record. It is not the complete legal health record.[facility]
--- OUTSIDE RECORDS SUMMARY | 2025-03-03 18:26 | XMS_ITS | Patient Health Record ---
Author Organization [facility] Address [address] [place] [address] Care Team Providers Care Carriage Setter Name Role Phone Omid Jimenes MD Primary Care Provider Sushila Campos Unavailable [phone] Brittany Montiel Unavailable [phone] Allergies Allergen (clinical drug ingredient) Drug/Non Drug [...] Range Notes HEMOGLOBIN A1C (GLYCOHEMOGLO BIN) Reviewed date:05/27/2024 08:37:35 AM Interpretation: Performing Lab: Notes/Report: HEMOGLOBIN A1C % (HH) 5.9 HEMOGLOBIN A1C (GLYCOHEMOGLO BIN) Reviewed date:07/18/2024 01:45:06 PM Interpretation: Performing Lab: Notes/Report: HEMOGLOBIN A1C % (HH) 6.0 HEMOGLOBIN A1C (GLYCOHEMOGLO BIN) Reviewed date:02/05/2025 02:38:39 PM Interpretation: Performing Lab: Notes/Report: HEMOGLOBIN A1C % (HH) 6.5 Reason For Referral No Information Medications Medication SIG (Take, Route, Frequency, Duration) Notes Start Date End Date Status Declomycin Not-Takin g Extra Depth Diabetic Shoes with 3 Pair Custom heat-molded multi-density innersoles for 1 year Dx: 10/03/2017 Not-Taking Trulicity start in 1 week stop januvia Not-Taking Farxiga 10 MG 1 tablet Orally morning Not-Taking Calcitriol 0.25 MCG Oral; Duration: 30 Active Extra Depth Orthopedic Shoes (1 Pair) with Customized Heat Molded Multidensity Innersoles (3 Pair) as directed Dx: NIDDM/Polyneuropat hy (E11.42), Hammertoe Foot Deformity (M20.41,M20.42), Preulcerative Skin Lesion(s) (L85.1 Active ZyrTEC Allergy Activ e Extra Depth Orthopedic Shoes (1 Pair) with Customized Heat Molded Multidensity Innersoles (3 Pair) as directed Dx: NIDDM/Polyneuropat hy (E11.42), Hammertoe Foot Deformity (M20.41,M20.42), Preulcerative Skin Lesion(s) (L85.1 Active Vancomycin HCl 125 MG USE 1 SUPPOSITORY RECTALLY TWICE A DAY Oral; Duration: 14 PRN Active Vitamin C Active Lorena Active Amoxicillin 250 MG USE 1 SUPPOSITORY RECTALLY TWICE A DAY Oral; Duration: 7 PRN Active Bepreve 1.5 % 1 drop into affected eye Ophthalmic Twice a day Active Allopurinol 100 MG as directed Orally Active Extra-Depth Diabetic Shoes with 3 Pair Custom heat-molded multi-density innersoles . for 1 year . Dx:; Duration: . 10/05/2014 Not-Taking Albuterol as directed PRN Active Extra-Depth Diabetic Shoes with 3 Pair Custom heat-molded multi-density innersoles . for 1 year . Dx:Niddm with neuropathy, foot deformity and pre-ulcerative skin lesions; Duration: . 07/10/2013 Not-Taking Atorvastatin Calcium Active Extra-Depth Diabetic Shoes with 3 Pair Custom heat-molded multi-density innersoles . 1pair shoes/3sets inserts . .; Duration: 1 year Not-Taking Dulera Not-Taking Flonase 1 spray in each nostril Nasally Once a day; Duration: 30 day(s) HOLD Not-Taking Vicodin PRN Not-Taking Metformin & Diet Manage Prod 500 MG as directed Orally Not-Takin g hydroCHLOROthiazide 25 MG 1 tablet Orall y Once a day; Duration: 30 day(s) Not-Taking Ditropan Not-Taking Extra Depth Orthopedic Shoes (1 Pair) with Customized Heat Molded Multidensity Innersoles (3 Pair) as directed Dx: IDDM/Polyneuropath y (E10.42), Hammertoe Foot Deformity (M20.41,M20.42), Preulcerative Skin Lesion(s) (L85.1) 04/04/2017 Not-Taking Fluticasone Propionate Active Florastor 250 MG 1 capsule Orally Twice a day; Duration: 30 day(s) Active Furosemide Active DULoxetine HCl 60 MG as directed Orally Once a day Active Dymista Active Ferrous Sulfate 325 (65 Fe) MG 1 tablet Orally Once a day; Duration: 30 day(s) Active EPINEPHrine PRN Active Colchicine PRN Active Diovan 160mg 1 tablet Orally Once a day; Duration: 30 day(s) Active Cephalexin PRN Active Ergocalciferol 34463 UNIT 1 capsule Oral ly; Duration: 30 day(s) Not-Taking Breo Ellipta Not-Jaylen ing Invokana 300 MG 1 tablet Orally Once a day Not-Taking Extra Depth Diabetic Shoes with 3 Pair Custom heat-molded multi-density innersoles for 1 year Dx: 10/06/2015 Not-Taking Meclizine HCl 25 MG 1 tablet as needed Orally Once a day; Duration: 30 day(s) PRN Active Magnesium Oxide 400 MG 1 tablet as neede d Orally Once a day; Duration: 30 day(s) Active Valsartan 40 MG 1 tablet Orally Twice a day Active Levothyroxine Sodium 75 MCG 1 tablet on an empty stomach in the morning Orally Once a day Active Synthroid 75 MCG 1 tablet in the morning on an empty stomach Orally Once a day Active K-Tab 10 MEQ 1 tablet with food Orally Twice a day; Duration: 30 day(s) Active Spiriva Respimat Act manolo Nucala Active predniSONE 10 MG Oral; Duration: 12 PRN Active Lantus 37 units injections Act manolo tylenol PRN Active HYDROcodone-Acetaminophen 7.5-325 MG 1 tablet as needed Orally every 6 hrs Active PriLOSEC 20 MG 1 capsule Orally Once a day; Duration: 30 day(s) Active Gabapentin 100 MG 1 capsule Orally morning 400 MG at night Active Potassium Chloride ER Active Januvia Active Omeprazole Active Ibuprofen 800mg 1 tablet as needed Orally every 6 hrs PRN Active Prochlorperazine PRN Act manolo oxyCODONE HCl PRN Active Immunizations Vaccine Route Administration Date Status Comme nts Influenza Unknown 01/13/2015 Administered Influenza Unknown 03/20/2016 Administered Influenza Unknown 03/05/2017 Administered Influenza Unknown 01/30/2022 Administered Influenza Unknown 12/29/2022 Administered Influenza Unknown 01/29/2024 Administered Influenza Unknown 01/23/2025 Administered Pneumococcal Unknown 02/17/2013 Administered COVID-19 Moderna [...] Polyneuropathy due to type 2 diabetes mellitus (303829572) Type 2 diabetes mellitus with diabetic polyneuropathy (E11.42) Active confirmed Problem Acquired hammer toe of right foot (9524710362508034 ) Other hammer toe(s) (acquired), right foot (M20.41) Active confirmed Problem Acquired hammer toe of left foot (5013976717850414 ) Other hammer toe(s) (acquired), left foot (M20.42) Active confirmed Vital Signs Blood pressure diastolic 65 mm Hg 02/05/2025 Height 5 ft 3 in in 02/05/2025 Blood pressure systolic 122 mm Hg 02/05/2025 Weight 245 lbs 02/05/2025 BMI 43.4 kg/m2 02/05/2025 Procedures Procedure Date Ordered Date Performed Result Body Sit e 24162-TRXFGVT NAIL, 6 OR MORE 03/06/2024 N/A 98329-JZEZ SKIN LESIONS, 2 TO 4 03/06/2024 N/A 25173-ZJKSLSE NAIL, 6 OR MORE 05/12/2024 N/A 93439-JAGL SKIN LESIONS, 2 TO 4 05/12/2024 N/A Encounters Encounter Location Date Provider Diagnosis [address] [address] 03/06/2024 Sushila Heredia Type 1 diabetes mellitus with diabetic polyneuropathy E10.42 and Tinea unguium B35.[address] [address] 05/12/2024 Sushila Heredia Type 2 diabetes mellitus with diabetic polyneuropathy E11.42 and Tinea unguium B35.[address] [address] 07/18/2024 Brittany Montiel Type 2 diabetes mellitus with diabetic polyneuropathy E11.42 ; Other hammer toe(s) (acquired), right foot M20.41 ; Tinea unguium B35.1 ; Other hammer toe(s) (acquired), left foot M20.42 and Pre-ulcerative calluses L84 [address] [address] 09/24/2024 Sushila Heredia Type 2 diabetes mellitus with diabetic polyneuropathy E11.42 and Tinea unguium B35.[address] [address] 12/03/2024 Sushila Heredia Type 2 diabetes mellitus with diabetic polyneuropathy E11.42 and Tinea unguium B35.[address] [address] 02/05/2025 Sushila Heredia Type 2 diabetes mellitus with diabetic polyneuropathy E11.42 and Tinea unguium B35.[address] [address] 12/03/2024 Sushila Heredia Assessments Encounter Date Diagnosis [...] E11.42) 12/03/2024 Tinea unguium (ICD-10 - B35.1) 02/05/2025 Type 2 diabetes mellitus with diabetic polyneuropathy (ICD-10 - E11.42) 02/05/2025 Tinea unguium (ICD-10 - B35.1) 07/18/2024 Type [...] INSTRUCTIONS. pdf (DIABETIC FOOT CARE INSTRUCTIONS. pdf) 02/05/2025 Other Patient Educated with: DIABETIC FOOT CARE INSTRUCTIONS. pdf (DIABETIC FOOT CARE INSTRUCTIONS. pdf) Plan Of Treatment Pending Test Test Name Order Date X ray : Foot, left 2V 10/03/2017 X ray : Foot, right 2V 10/03/2017 X ray : Foot, right 3V 04/10/2022 62576-PBHELSZ NAIL, 6 OR MORE 03/06/2024 67236-LXBSDAI NAIL, 6 OR MORE 05/12/2024 60394-NIQPZRI NAIL, 6 OR MORE 10/04/2016 80556-BVBHGFW NAIL, 6 OR MORE 04/04/2017 91080-LPYPWOG NAIL, 6 OR MORE 10/03/2017 38788-WUNREQF NAIL, 6 OR MORE 04/08/2018 62176-FXXJKQD NAIL, 6 OR MORE 04/03/2013 59437-WXLBERC NAIL, 6 OR MORE 07/10/2013 25363-YPYADEF NAIL, 6 OR MORE 10/16/2013 18349-JDQRLHR NAIL, 6 OR MORE 01/21/2014 03755-OFXMHSA NAIL, 6 OR MORE 06/04/2014 62199-XOLLVTN NAIL, 6 OR MORE 10/05/2014 32755-VROTKSQ NAIL, 6 OR MORE 01/06/2015 07467-VKPCUYS NAIL, 6 OR MORE 04/07/2015 36030-CJYUNXZ NAIL, 6 OR MORE 10/06/2015 10030-RECGCSW NAIL, 6 OR MORE 04/05/2016 68668-UGUILYU NAIL, 1-5 10/30/2012 89999-BKMSUZE NAIL, 1-5 01/16/2013 37391-BGSQDHH NAIL, 1-5 09/05/2012 20587-PMOMMOY NAIL, 1-5 07/18/2012 12535-TSUTHJM NAIL, 1-5 07/31/2012 71463-Yohzffzv Plate 07/31/2012 27907-Akhwkkda Plate 09/05/2012 78924-Sznbqcrm Plate 07/18/2012 06690-Ivnvjvcd Plate 10/03/2017 85017-Tpqlzfey Plate 10/16/2013 65173-Jvmcxcka Plate 04/04/2017 14908-PPLZ SKIN LESIONS, OVER 4 07/19/19 13 53452-HUHQ SKIN LESIONS, OVER 4 09/06/19 13 27328-IPMX SKIN LESIONS, OVER 4 08/01/19 13 40506-YKPR SKIN LESIONS, OVER 4 07/11/19 14 61255-PVVN SKIN LESIONS, OVER 4 01/17/20 13 95113-SCXT SKIN LESIONS, OVER 4 04/03/20 13 50654-GZSK SKIN LESIONS, OVER 4 04/05/20 16 69840-HMXS SKIN LESIONS, OVER 4 10/05/19 17 61533-DTUF SKIN LESIONS, OVER 4 10/06/19 16 35406-EVHH SKIN LESIONS, OVER 4 04/07/20 15 36008-VGON SKIN LESIONS, OVER 4 01/07/20 15 22792-YNFE SKIN LESIONS, OVER 4 10/06/19 15 22929-CBMH SKIN LESIONS, OVER 4 06/04/19 15 41533-TIMW SKIN LESIONS, OVER 4 01/22/20 14 40933-OEYI SKIN LESIONS, OVER 4 10/17/19 14 51587-IRUL SKIN LESIONS, 2 TO 4 04/04/20 17 54508-SMUE SKIN LESIONS, 2 TO 4 10/04/19 18 67769-GDUO SKIN LESIONS, 2 TO 4 10/08/19 19 48977-WOSQ SKIN LESIONS, 2 TO 4 01/28/20 19 73112-KDFE SKIN LESIONS, 2 TO 4 04/09/20 19 09407-XWEA SKIN LESIONS, 2 TO 4 06/12/19 20 21113-EGUI SKIN LESIONS, 2 TO 4 10/13/19 20 73879-USYI SKIN LESIONS, 2 TO 4 12/15/19 20 55364-OBST SKIN LESIONS, 2 TO 4 02/16/20 20 06241-SAKS SKIN LESIONS, 2 TO 4 05/13/19 21 25391-WJWR SKIN LESIONS, 2 TO 4 08/12/19 88952-FNUU SKIN LESIONS, 2 TO 4 10/19/19 29942-BHSW SKIN LESIONS, 2 TO 4 12/23/19 21 88644-QMOU SKIN LESIONS, 2 TO 4 02/24/20 21 21765-YBJN SKIN LESIONS, 2 TO 4 05/09/19 22 99246-JSJF SKIN LESIONS, 2 TO 4 07/15/19 22 29957-TUVN SKIN LESIONS, 2 TO 4 05/12/19 25 14772-ECFL SKIN LESIONS, 2 TO 4 03/06/20 24 05648-HVZT SKIN LESIONS, 2 TO 4 04/08/20 18 63539-DLDL NAIL(S) 01/16/2013 84546-PRFT NAIL(S) 10/30/2012 Next Appt Details Provider Name:Sushila brasher, 03/05/2025 10:15:00 AM, [address] [place] [address], [phone], Provider Name:Sushila brasher, 05/07/2025 03:15:00 PM, [address] [place] [address], [phone], Insurance Providers Payer Name Payer Address Payer Phone Subscriber Number Group Number Insured Name Patient Relationship to Insured Coverage Start Date Coverage End Date Medicare National Govt Svcs Inc [address] [place] [address] [id number] Vy Fishman Self - patient is the insured [employer] [facility] [address] [place] [address] [id number] Vy Fishman Self - patient is the insured [employer] [address] [place] [phone] [id number] Vy Fishman Self - patient is the [...] stay- Discharged to rehab-12 days-Went back to [facility] 10/2018-01/10/2019 [facility], Cervical disc replacement, [address] [facility]. 05/07/2017
--- OUTSIDE RECORDS SUMMARY | 2025-03-03 18:26 | XMS_ITS | Encounter Summary ---
Author Organization [facility] Address [address] [place] [address] Phone Care Team Providers Care Hot Mix Operator Name Role Phone Omid Jimenes MD Primary Care Provider Omid Jimenes MD Unavailable [phone] Emmanuel Lyman MD Unavailable [phone] Lizandro Guallpa MD Unavailable Cameron Vital MD, MSc Unavailable [phone] Encounter Details Date Type Department Care Team (Late st Contact Info) Description 03/16/2021 Procedure Pass [facility] [place] DEPT [address] [place] [id number] Social History Tobacco Use Types Packs/Day Years [...] 03/16/2021 5:00 PM Son Banuelos RN * [facility] Suicide Severity Rating Scale (Screener/Recent Self-Report) Question [...] Description 03/10/2025 10:40 AM EST Office Visit [facility] Rheumatology [address] [place] [address] Geraldine Jay MD, MPH [address], [address] [place] [address] [email or web address] documented as of this encounter Visit Diagnoses Not on filedocumented in this encounter Additional Health Concerns Infection Onset Date Last Indicated Resolved Time CoV-Risk 12/07/2023 12/07/2023 12/18/2023 1:22 AM EDT documented as of this encounter Care Teams Hot Mix Operator Relationship Specialty Start Date End Date Omid Jimenes MD [address] [place] [address] [place] [address] PCP - General 10/28/13 Omid Jimenes MD [address] [place] [address] [place] [address] Historical LMR Provider 02/15/17 Emmanuel Lyman MD [address] [place] [address] [id number] [place] [address] [email or web address] Audio Visual Aids Director Cardiology 11/22/20 Lizandro Guallpa MD [address] [place] [address] [id number] [place] [address] [email or web address] 03/03/21 Cameron Vital MD, MSc [address] [place], [place] [id number] [place] [address] [email or web address] Audio Visual Aids Director Cardiology 03/03/21 documented as of this encounter Additional Source Comments The information contained in this document represents components of the legal health record. It is not the complete legal health record.[facility]
--- OUTSIDE RECORDS SUMMARY | 2025-03-03 18:27 | XMS_ITS | Encounter Summary ---
Author Organization [facility] Address [address] [place] [address] Phone Care Team Providers Care Edger Runner Name Role Phone Omid Jimenes MD Primary Care Provider Omid Jimenes MD Unavailable Emmanuel Lyman MD Unavailable [phone] Lizandro Guallpa MD Unavailable Cameron Vital MD, MSc Unavailable [phone] Encounter Details Date Type Department Care Team (Latest Contact Info) Description 01/05/2023 Transcribe Orders Virtual Department [address] [place] [address] Hector Scherer MD [address] [place], [place] [id number] Arthrodesis status (Primary Dx) Social History Tobacco Use Types Packs/Day Years Used Date Smoking Tobacco: Former Cigarettes 1 964 - 9623 Smokeless Tobacco: Never Alcohol Use Standard Drinks/Week [...] Description 03/10/2025 10:40 AM EST Office Visit [facility] Rheumatology [address] [place] [address] Geraldine Jay MD, MPH [address] [place] [address] [email or web address] documented as of this encounter Results * [...] uncovertebral predominate degenerative change. Bones demineralized. Hector Dangelo Scherer MD IMG XR SPINE Final Re sult documented in this encounter Visit Diagnoses Diagnosis Arthrodesis status- Primary Arthrodesis status documented in this encounter Additional Health Concerns Infection Onset Date Last Indicated Resolved Time CoV-Risk 12/07/2023 12/07/2023 12/18/2023 1:22 AM EDT Assessment Noted Time PHQ-9 Depression Total Score: 3 05/24/19 2:24 PM EST documented as of this encounter Care Teams Edger Runner Relationship Specialty Start Date End Date Omid Jimenes MD [address] [place] [address] [place] [address] PCP - General 10/28/13 Omid Jimenes MD [address] [place] [address] [place] [address] Historical LMR Provider 02/15/17 Emmanuel Lyman MD [address] [place] [address] [id number] [place] [address] [email or web address] Forest Technician Cardiology 11/22/20 Lizandro Guallpa MD [address] [place] [address] [id number] [place] [address] [email or web address] Rheumatology 03/03/21 Cameron Vital MD, MSc [address] [place] [address] [id number] [place] [address] [email or web address] Forest Technician Cardiology 03/03/21 documented as of this encounter Additional Source Comments The information contained in this document represents components of the legal health record. It is not the complete legal health record.[facility]
--- OUTSIDE RECORDS SUMMARY | 2025-03-03 18:27 | XMS_ITS | Encounter Summary ---
Author Organization [facility] Address [address] [place] [address] Phone Care Team Providers Care Roof Bolter Name Role Phone Omid Jimenes MD Primary Care Provider Ramsey Ortez MD Unavailable [email or web address] [email or web address] Omid Jimenes MD Unavailable [phone] Emmanuel Lyman MD Unavailable [phone] Lizandro Guallpa MD Unavailable Cameron Vital MD, MSc Unavailable [phone] Encounter Details Date Type Department Care Team (Late st Contact Info) Description 08/29/2020 Procedure Pass [facility] [place], [place] [address] [facility], [address] [place] [address] Social History Tobacco Use Types Packs/Day Years [...] Description 03/10/2025 10:40 AM EST Office Visit [facility] Rheumatology [address] [place] [address] Geraldine Jay MD, MPH [address] [facility] [facility], [address] [place] [address] [email or web address] documented as of this encounter Visit Diagnoses Not on filedocumented in this encounter Additional Health Concerns Infection Onset Date Last Indicated Resolved Time CoV-Risk 12/07/2023 12/07/2023 12/18/2023 1:22 AM EDT documented as of this encounter Care Teams Roof Bolter Relationship Specialty Start Date End Date Omid Jimenes MD [address] [place] [address] [place] [address] PCP - General 10/28/13 Ramsey Ortez MD [email or web address] Historical LMR Provider 02/15/17 03/02/21 Omid Jimenes MD [address] [place] [address] [place] [address] Historical LMR Provider 02/15/17 Emmanuel Lyman MD [address] [place] [address] [id number] [place] [address] [email or web address] [email or web address] Scratch Polisher Cardiology 11/22/20 Lizandro Guallpa MD [address] [place] [address] [id number] [place] [address] [email or web address] 03/03/21 Cameron Vital MD, MSc [address] [place] [address] [id number] [place] [address] [email or web address] Scratch Polisher Cardiology 03/03/21 documented as of this encounter Additional Source Comments The information contained in this document represents components of the legal health record. It is not the complete legal health record.[facility]
--- OUTSIDE RECORDS SUMMARY | 2025-03-03 18:27 | XMS_ITS | Encounter Summary ---
Author Organization [facility] Address [address] [place] [address] Phone Care Team Providers Care Drafting Teacher Name Role Phone Omid Jimenes MD Primary Care Provider Ramsey Ortez MD Unavailable [email or web address] Omid Jimenes MD Unavailable [phone] Emmanuel Lyman MD Unavailable [phone] Lizandro Guallpa MD Unavailable Cameron Vital MD, MSc Unavailable [phone] Encounter Details Date Type Department Care Team (Late st Contact Info) Description 02/19/2019 Ancillary Orders [facility] Rheumatology [address] [place] [address] Ramsey Ortez MD [email or web address] Disorder of rotator cuff, right Social History [...] Description 03/10/2025 10:40 AM EST Office Visit [facility] Rheumatology [address] [place] [address] Geraldine Jay MD, MPH [address] [facility] [address] [place] [address] [email or web address] documented as of this encounter Results * [...] documented as of this encounter Care Teams Drafting Teacher Relationship Specialty Start Date End Date Omid Jimenes MD [address] [place] [address] [place] [address] PCP - General 10/28/13 Ramsey Ortez MD [email or web address] Historical LMR Provider 02/15/17 03/02/21 Omid Jimenes MD [address] [place] [address] [place] [address] Historical LMR Provider 02/15/17 Emmanuel Lyman MD [address] [place] [address] [id number] [place] [address] [email or web address] Secondary Education Professor Cardiology 11/22/20 Lizandro Guallpa MD [address] [place] [address] [id number] [place] [address] [email or web address] Rheumatology 03/03/21 Cameron Vital MD, MSc [address] [place] [address] [id number] [place] [address] [email or web address] Secondary Education Professor Cardiology 03/03/21 documented as of this encounter Additional Source Comments The information contained in this document represents components of the legal health record. It is not the complete legal health record.[facility]
--- OUTSIDE RECORDS SUMMARY | 2025-03-03 18:27 | XMS_ITS | Encounter Summary ---
Author Organization [facility] Address [address] [facility] [address] [place] [address] Phone Care Team Providers Care Mathematics Instructor Name Role Phone Omid Jimenes MD Primary Care Provider Ramsey Ortez MD Unavailable [email or web address] Omid Jimenes MD Unavailable [phone] Emmanuel Lyman MD Unavailable [phone] Lizandro Guallpa MD Unavailable Cameron Vital MD, MSc Unavailable [phone] Reason for Referral * MRI/CAT Scan - Closed Specialty Diagnoses / Procedures Referred By Contlaci t Referred To Contact Radiology Diagnoses Severe aortic stenosis Procedures CT 3D TAVR Reconstruction Cameron Vital MD, MSc Phone: tel:[phone] fax: mailto:[email or web address] Referral ID Status Reason Start Date Expiration Date Visits Re quested Visits Authorized [id number] Closed 11/18/2020 11/18/2021 1 1 Encounter Details Date Type Department Care Team (Latest Contact Info) Description 11/18/2020 Ancillary Orders [facility] Cardiovascular Medicine [address] [facility] [facility], 5th Floor, [address] [place] [address] Cameron Vital MD, MSc [address] [place] [address] [email or web address] Severe aortic stenosis Social History Tobacco Use [...] Description 03/10/2025 10:40 AM EST Office Visit [facility] [place] [address] Geraldine Jay MD, MPH [address] [facility], [address] [place] [address] [email or web address] documented as of this encounter Results * [...] edited the report originally createdby Taina Fang. Cameron Vital MD, MSc IMG CT Final Result documented in this encounter Visit Diagnoses Diagnosis Severe aortic stenosis Aortic valve disorders Severe aortic stenosis Aortic valve disorders documented in this encounter Additional Health Concerns Infection Onset Date Last Indicated Resolved Time CoV-Risk 12/07/2023 12/07/2023 12/18/2023 1:22 AM EDT documented as of this encounter Care Teams Mathematics Instructor Relationship Specialty Start Date End Date Omid Jimenes MD [address] [place] [address] [place] [address] PCP - General 10/28/13 Ramsey Ortez MD [email or web address] Historical LMR Provider 02/15/17 03/02/21 Omid Jimenes MD [address] [place] [address] [place] [address] Historical LMR Provider 02/15/17 Emmanuel Lyman MD [address] [place] [address] [id number] [place] [address] [email or web address] Hand Singer Cardiology 11/22/20 Lizandro Guallpa MD [address] [place] [address] [id number] [place] [address] [email or web address] 03/03/21 Cameron Vital MD, MSc [address] [place] [address] [id number] [place] [address] [email or web address] Hand Singer Cardiology 03/03/21 documented as of this encounter Additional Source Comments The information contained in this document represents components of the legal health record. It is not the complete legal health record.[facility]
--- OUTSIDE RECORDS SUMMARY | 2025-03-03 18:27 | XMS_ITS | Encounter Summary ---
Author Organization [facility] Address [address] [facility] [address] [place] [address] Phone Care Team Providers Care Chronic Specialist Name Role Phone Omid Jimenes MD Primary Care Provider Ramsey Ortez MD Unavailable [email or web address] Omid Jimenes MD Unavailable [phone] Emmanuel Lyman MD Unavailable [phone] Lizandro Guallpa MD Unavailable Cameron Vital MD, MSc Unavailable [phone] Encounter Details Date Type Department Care Team (Late st Contact Info) Description 10/22/2017 Procedure Pass [address] [place] [address] Social History Tobacco Use Types Packs/Day Years [...] Description 03/10/2025 10:40 AM EST Office Visit [facility] Rheumatology [address] [place] [address] Geraldine Jay MD, MPH [address] [place] [address] [address] [place] [address] [email or web address] documented as of this encounter Visit Diagnoses Not on filedocumented in this encounter Additional Health Concerns Infection Onset Date Last Indicated Resolved Time CoV-Risk 12/07/2023 12/07/2023 12/18/2023 1:22 AM EDT documented as of this encounter Care Teams Chronic Specialist Relationship Specialty Start Date End Date Omid Jimenes MD [address] [place] [address] [place] [address] PCP - General 10/28/13 Ramsey Ortez MD [email or web address] Historical LMR Provider 02/15/17 03/02/21 Omid Jimenes MD [address] [place] [address] [place] [address] Historical LMR Provider 02/15/17 Emmanuel Lyman MD [address] [facility] [id number] [place] [address] [email or web address] [employer] Cardiology 11/22/20 Lizandro Guallpa MD [address] [place] [address] [id number] [place] [address] [email or web address] Rheumatology 03/03/21 Cameron Vital MD, MSc [address] [place] [address] [id number] [place] [address] [email or web address] [employer] Sprayer Cardiology 03/03/21 documented as of this encounter Additional Source Comments The information contained in this document represents components of the legal health record. It is not the complete legal health record.[facility]
--- OUTSIDE RECORDS SUMMARY | 2025-03-03 18:27 | XMS_ITS | Encounter Summary ---
Author Organization [facility] Address [address] [facility] [address] [place] [address] Phone Care Team Providers Care Cutter Woodwind Reeds Name Role Phone Omid Jimenes MD Primary Care Provider Omid Jimenes MD Unavailable Emmanuel Lyman MD Unavailable [phone] Lizandro Guallpa MD Unavailable Cameron Vital MD, MSc Unavailable [phone] Encounter Details Date Type Department Care Team (Late st Contact Info) Description 03/21/2021 Procedure Pass [facility] Cardiac US [address] [place] [address] Social History Tobacco Use Types Packs/Day Years Used Date Smoking Tobacco: Former Cigarettes 1 964 1985 Smokeless Tobacco: Never Alcohol Use [...] Description 03/10/2025 10:40 AM EST Office Visit [facility] Rheumatology [address] [place] [address] Geraldine Jay MD, MPH [address] [facility], [address] [place] [address] [email or web address] documented as of this encounter Visit Diagnoses Not on filedocumented in this encounter Additional Health Concerns Infection Onset Date Last Indicated Resolved Time CoV-Risk 12/07/2023 12/07/2023 12/18/2023 1:22 AM EDT documented as of this encounter Care Teams Cutter Woodwind Reeds Relationship Specialty Start Date End Date Omid Jimenes MD [address] [place] [address] Dr COBB [address] [place] [address] PCP - General 10/28/13 Omid Jimenes MD [address] [place] [address] [place] [address] Historical LMR Provider 02/15/17 Emmanuel Lyman MD [address] [facility] [id number] [place] [address] [email or web address] [employer] Cardiology 11/22/20 Lizandro Guallpa MD [address] [facility] [id number] [place] [address] [email or web address] Rheumatology 03/03/21 Cameron Vital MD, MSc [address] [place] [address] [email or web address] [employer] Cardiology 03/03/21 documented as of this encounter Additional Source Comments The information contained in this document represents components of the legal health record. It is not the complete legal health record.[facility]
--- OUTSIDE RECORDS SUMMARY | 2025-03-03 18:27 | XMS_ITS | Patient Health Record ---
Author Organization Omid Jimenes MD Address [address] [place] [id number] Care Team Providers Care Nuclear Process Engineer Name Role Phone Omid Jimenes Primary Care Provider [phone] Allergies Allergen (clinical drug ingredient) Drug/Non Drug [...] Interpretation: Performing Lab: Notes/Report: Hemoglobin A1c 6.2 Liver Panel Reviewed date:09/26/2024 04:14:17 PM Interpretation: Performing Lab:[facility], [address] [place] [id number] Notes/Report: Bilirubin Total 0.4 0.0-1.0 mg/dL Bilirubin Direct 0.2 0.0-0.5 mg/dL Aspartate Amino Transferase 36 5-31 U/L Alanine Aminotransferase 24 0-31 U/L Total Protein 7.1 6.5-8.0 g/dL Albumin Level 3.7 3.5-5.0 g/dL Alkaline Phosphatase 81 39-117 U/L Glucose Fasting Reviewed date:09/26/2024 04:14:33 PM Interpretation: Performing Lab:[facility], [address] [place] [id number] Notes/Report: Glucose Fasting 158 60-99 mg/dL A fasting glucose of 126 mg/dl or greater on more than one occasion is considered diagnostic of diabetes. Lipid Panel with Reflex Reviewed date:09/26/2024 04:15:11 PM Interpretation: Performing Lab:[facility], [address] [place] [phone] Notes/Report: Triglycerides 169 <150 mg/dL Desirable Triglyceride: [...] A1c Reviewed date:09/26/2024 12:54:48 PM Interpretation: Performing Lab:[facility], [address] [place] [address] Notes/Report: Hemoglobin A1c % 5.9 <6.0 % [...] average glucose, using the formula of the N4V-Kykefgd Average Glucose study (ADAG), Diabetes Care, Vol.31,#8, 2007 Blood Urea Nitrogen (Not yet reviewed by provider) Interpretation: Performing Lab:[address] [phone] Notes/Report: Blood Urea Nitrogen 31 9-16 mg/dL Creatinine Reviewed date:03/03/2025 05:19:36 PM Interpretation: Performing Lab:[facility], [address] [place] [phone] Notes/Report: Creatinine 1.26 0.5-1.4 mg/dL Estimated Glomerular Filt Rate 41 Chronic Kidney Disease: Estimated GFR < 60 mL/min/1.73m2 Severe Kidney Disease: Estimated GFR < 15 mL/min/1.73m2 Glucose, finger stick Reviewed date:01/27/2025 11:21:16 AM Interpretation: Performing Lab: Notes/Report: Value 172 MM tomosynthesis screening B I Reviewed date:05/25/2024 05:17:35 PM Interpretation: Performing Lab: Notes/Report: [facility] [address] [place] [address] Mammography Report Signed Patient: Vy Fishman MR#: [id number] 121 : 1945 Acct:[id number] Age/Sex: 78 / F ADM Date: 05/14/24 Loc: AGATHA Attending Dr: Omid Jimenes MD Ordering Physician: Omid Jimenes MD Results: 2Be nign Findings Date of Service: 05/14/24 Follow Up: 1 Year From Orig inal Mammogram Procedure(s): MM tomosynthesis screening BI Accession Number(s): [id number] cc: Omid Jimenes MD EXAMINATION: MM SCREENING [...] 05/25/24 1039 DD/ 1445 TD/TT: 05/14/24 1520 Car Detailer: [facility] [address] [place] [address] Mammography Report Signed Patient: Vy Fishman MR#: [id number] [birth year] : 1945 Acct:[id number] Age/Sex: 78 / F ADM Date: 05/14/24 Loc: HO.MAMMO Attending Dr: Omid Jimenes MD Ordering Physician: Omid Jimenes MD Results: 2Be isi Findings Date of Service: 05/14/24 Follow Up: 1 Year From Orig inal Mammogram Procedure(s): MM tomosynthesis screening BI Accession Number(s): [id number] cc: Bombardier,Omid P MD EXAMINATION: MM SCREENING DIGITAL BREAST TOMOSYNTHESIS, BILATERAL CLINICAL INFORMATION: Screening. Asymptomatic. COMPARISON: Mammography: Compari son is made with available priors TECHNIQUE: Digital [...] mammography screening. 1 year F/U This examination lima uld not preclude the clinical evaluation of a suspicious palpable abnormality. This patient's information was entered into a reminder system with a target due date for their next mammogram. Electronically gayle d by: Dahlia Green DO 05/25/2024 10:39 AM EST RP Dictated By: Dahlia Green DO Signed By: <Electronically signed by Dahlia Green DO in OV> 05/25/24 1039 DD/ 1445 TD/TT: 05/14/24 1520 Car Detailer: Nini Melendez Reviewed date:09/26/2024 12:30:19 PM Interpretation: Performing Lab:[facility], [address] [place] [phone] Notes/Report: Nini Melendez See Note Specimen held [...] Duration) Notes Start Date End Date Status Florastor 250 MG TAKE ONE CAPSULE BY MOUTH TWICE A DAY Orally twice a day for 90 days Active HYDROcodone-Acetaminophen 7.5-325 MG (Schedule II Drug) TAKE 1 TABLET BY MOUTH EVERY 8 HOURS NEEDED FOR PAIN Oral for 30 Active [employer] Unifine Pentips Plus 31G X [...] a day for 30 day(s) Active Dymista 137-50 MCG/ACT USE 1 SPRAY EACH NOSTRIL TWICE A DAY Nasal Twice a day for 90 days Active DULoxetine HCl 60 MG TAKE ONE CAPSULE BY MOUTH EVERY DAY Orally Once a day for 90 days Active Atorvastatin Calcium 20 MG TAKE ONE TABL ET BY MOUTH EVERY DAY for 90 Active Ferrous Sulfate 325 (65 Fe) MG 1 tablet Orally Once a day for 90 days Active Spiriva Respimat 1.25 MCG/ACT INHALE 2 PUFFS DAILY Inhalation Once a day for 90 days Active Nyamyc 777520 UNIT/GM APPLY TO AFFECTED AREA TWO TIMES A DAY for 30 Active Lantus SoloStar 100 UNIT/ML 70 units Subcutaneous 70 units twice a day for 90 days Active Flovent HFA 220 MCG/ACT USE 2 PUFFS TWIC E DAILY Inhalation Twice a day for 90 days Active Ventolin HFA 108 (90 Base) MCG/ACT 2 puffs as needed Inhalation every 4 hrs for 90 days 10/30/2019 Active Benadryl Allergy 25 MG 2 tablet at bedti me as needed Orally twice aday for 90 days Active Calcitriol 0.25 MCG 1 capsule Orally Thr ee times a Week for 90 days Active Torsemide 20 MG 3 tabs twice a day O rally twice a day Active ZyrTEC Allergy 10 MG 1 tablet Orally Onc e a day for 90 days Active Allopurinol 100 MG TAKE TWO TABLETS BY MOUTH EVERY DAY Oral Once a day for 90 days Active Bepreve 1.5 % INSTILL 1 TO 2 DROPS IN EACH EYE DAILY NEEDED Ophthalmic Twice a day for 20 days Active Ondansetron 4 MG 1 tablet on the tong ue and allow to dissolve Orally twicea day for 7 days 11/30/2023 Active Meclizine HCl 25 MG TAKE ONE TABLET BY M OUTH TWICE A DAY NEEDED Orally every 12 hrs for 28 days Active Calcitriol 0.25 MCG 1 capsule Orally Thr ee times a Week for 90 days Active Amoxicillin 500 MG 1 capsule Orally blank ry 8 hrs for 5 day(s) 06/20/2022 Active Gabapentin 400 MG 1 capsule Orally [...] Once a day for 90 days Active Albuterol Sulfate (2.5 MG/3ML) 0.083% 3 mL as needed Inhalation every 6 hrs for 90 days 03/03/2025 Active MiraLax 17 GM/SCOOP 1 scoop mixed with 8 ounces of fluid Orally Once a day for 90 days Active Furosemide 80 MG TAKE ONE TABLET BY M OUTH TWICE A DAY Orally teice a day for 90 days Active Immunizations [...] Problem Status W/U Status Risk Notes Problem 31469619 Hemoptysis (R04.2) Active confirmed Problem 61633772 Vitamin D defici ency (E55.9) Active confirmed Problem 99604756 Hypercalcemia (E83.52) Active confirme d Problem 770702758 Other specified menopausal and perimenopausal disorders (N95.8) Active confirmed Problem 273750871 Body mass index (BMI) 45.0-49.9, adult (Z68.42) Active confirmed Problem 5617944 Arthritis (M19.90) Active confirmed Problem 1869821 Diastolic dysfun ction (I51.9) Active confirmed Problem 405169147 Tubular adenoma of colon (D12.6) Active confirmed Problem 60862872 Essential hypert ension (I10) Active confirmed Problem 395489481 Acquired hypothyroidism (E03.9) Active confirmed Problem 315339932 Mild intermitten t asthma without complication (J45.20) Active confirmed Problem 99563478 Type 2 diabetes mellitus without complication (E11.9) Active confirmed Problem 7519018 Aortic valve dis order (I35.9) Active confirmed Problem 342996008 Morbid obesity d ue to excess calories (E66.01) Active confirmed Problem Irregular heart beat (831198320) Irregular heart beat (I49.9) Active confirmed Problem 23685006 Chronic obstruct manolo pulmonary disease, unspecified COPD type (J44.9) Active confirmed Problem 776753539 History of hemat uria (Z87.448) Active confirmed Problem 799709323 Acute systolic congestive heart failure (I50.21) Active confirmed Problem 521681214851528 Moderate persist ent asthma with acute exacerbation (J45.41) Active confirmed Problem 629907745 Iron deficiency anemia due to chronic blood loss (D50.0) Active confirmed Problem 790264831 GERD (gastroesop hageal reflux disease) (K21.9) Active confirmed Problem 83925963 Aortic valve terrence nosis, unspecified etiology (I35.0) Active confirmed Problem 44787572 Liver cyst (K76.89) Active confirmed Problem 760710414 Pure hypercholesterolemia (E78.00) Active confirmed Problem 818147368 OAB (overactive bladder) (N32.81) Active confirmed Problem 51385097 CLEVE (obstructive sleep apnea) (G47.33) Active confirmed Problem 301192882 Hand arthritis (M19.049) Active confirmed Problem 116894036 Arthritis pain o f hand (M19.049) Active confirmed Problem 132365384 Arthritis pain o f shoulder (M19.019) Active confirmed Problem History of heart valve repair with prosthesis (756347952371020) H/O aortic valve replacement (Z95.2) Active confirmed Problem 463730361 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) Active confirmed Problem 168174416 Acute constipati on (K59.00) Active confirmed Vital Signs Blood pressure diastolic 60 mm Hg 03/03/2025 vamsi ghtb is down 7 pounds since 01-27-25 Height 64 in 03/03/2025 weightb is down 7 pounds since 01-27-25 Blood pressure systolic 152 mm Hg 03/03/2025 weig htb is down 7 pounds since 01-27-25 Weight 242 lbs 03/03/2025 weightb is down 7 pounds since 01-27-25 BMI 41.53 kg/m2 03/03/2025 weightb is down 7 pounds since 01-27-25 Encounters Encounter Location Date Provider Diagnosis Omid Jimenes MD [address] [place] [address] [address] [place] [address] [id number] 09/26/2024 Omid Jimenes Type 2 diabetes kel itus without complication E11.9 and Pure hypercholesterolemia E78.00 Omid Jimenes MD [address] [place] [address] [id number] 03/03/2025 Omid Jimenes Mild intermittent as thma [...] Pure hypercholesterolemia E78.00 and Chest pressure R07.89 Omid Jimenes MD [address] [place] [address] [id number] 09/29/2024 Omid Jimenes Type 2 diabetes kel itus without complication E11.9 ; Mild intermittent asthma without complication J45.20 and Pure hypercholesterolemia E78.00 Omid Jimenes MD [address] [place] [address] [id number] 01/27/2025 Omid Jimenes Type 2 diabetes kel itus without complication E11.9 ; Mild intermittent asthma without complication J45.20 and Irregular heart beat I49.9 Omid Jimenes MD [address] [place] [address] [id number] 03/06/2024 Omid Jimenes MD [address] [place] [address] [id number] 03/07/2024 Omid Jimenes Breast cancer screen ing Z12.31 Omid Jimenes MD [address] [place] [address] [id number] 11/25/2024 Omid Jimenes MD [address] [place] [address] [id number] 12/15/2024 Omid Jimenes MD [address] [place] [address] [id number] 12/25/2024 Omid Jimenes Type 2 diabetes kel itus without complication E11.9 ; Arthritis M19.90 ; Essential hypertension I10 ; Laceration of left knee, subsequent encounter S81.012D ; Acquired hypothyroidism E03.9 ; GERD (gastroesophageal reflux disease) K21.9 ; Acute systolic congestive heart failure I50.21 ; Mild intermittent asthma without complication J45.20 and Acute cellulitis L03.90 Omid Jimenes MD [address] [place] [address] [id number] 02/03/2025 Omid Jimenes Type 2 diabetes kel itus without complication E11.9 ; Mild intermittent asthma without complication J45.20 ; Arthritis M19.90 ; Essential hypertension I10 ; Acquired hypothyroidism E03.9 ; GERD (gastroesophageal reflux disease) K21.9 ; Acute systolic congestive heart failure I50.21 and Acute cellulitis L03.90 Omid Jimenes MD [address] [place] [address] [id number] 02/19/2025 Omid Jimenes Type 2 diabetes kel itus without complication E11.9 Assessments Encounter Date Diagnosis (ICD Code) Assessment Notes Treatment Notes Treatment Clinical Notes Section Notes 09/26/2024 Type 2 diabetes mellitus without complication (ICD-10 - E11.9) 03/03/2025 Mild intermittent asthma without complication (ICD-10 - J45.20) 03/03/2025 Type 2 diabetes mellitus without complication (ICD-10 - E11.9) well controlled 09/29/2024 Type 2 diabetes mellitus without complication (ICD-10 - E11.9) maintain the same dose of mounjaro since she is still getting nausea 01/27/2025 Type 2 diabetes mellitus without complication (ICD-10 - E11.9) stable, will continue current regiment 01/27/2025 Mild intermittent asthma without complication (ICD-10 - J45.20) stable, will continue current regiment 12/25/2024 Type 2 diabetes mellitus without complication (ICD-10 - E11.9) 02/03/2025 Type 2 diabetes mellitus without complication (ICD-10 - E11.9) 02/19/2025 Type 2 diabetes mellitus without complication (ICD-10 - E11.9) 09/26/2024 Pure hypercholesterolemia (ICD-10 - E78.00) 03/03/2025 Arthritis (ICD-10 - M19.90) 09/29/2024 Mild intermittent asthma without complication (ICD-10 - J45.20) continue with present meds/ 01/27/2025 Irregular heart beat (ICD-10 - I49.9) ecg shows sinus rythm and frequent pac's 03/07/2024 Breast cancer screen ing (ICD-10 - Z12.31) 12/25/2024 Arthritis (ICD-10 - M19.90) 02/03/2025 Mild intermittent asthma without complication (ICD-10 - J45.20) 03/03/2025 Essential hypertensi on (ICD-10 - I10) 09/29/2024 Pure hypercholesterolemia (ICD-10 - E78.00) stable, will continue with current regiment 12/25/2024 Essential hypertensi on (ICD-10 - I10) 02/03/2025 Arthritis (ICD-10 - M19.90) 03/03/2025 Acquired hypothyroid ism (ICD-10 - E03.9) 12/25/2024 Laceration of left knee, subsequent encounter (ICD-10 - S81.012D) 02/03/2025 Essential hypertensi on (ICD-10 - I10) 03/03/2025 Laceration of left knee, subsequent encounter (ICD-10 - S81.012D) has recovered 12/25/2024 Acquired hypothyroid ism (ICD-10 - E03.9) 02/03/2025 Acquired hypothyroid ism (ICD-10 - E03.9) 03/03/2025 GERD (gastroesophage al reflux disease) (ICD-10 - K21.9) 12/25/2024 GERD (gastroesophage al reflux disease) (ICD-10 - K21.9) 02/03/2025 GERD (gastroesophage al reflux disease) (ICD-10 - K21.9) 03/03/2025 Acute systolic congestive heart failure (ICD-10 - I50.21) 12/25/2024 Acute systolic congestive heart failure (ICD-10 - I50.21) 02/03/2025 Acute systolic congestive heart failure (ICD-10 - I50.21) 03/03/2025 Acute cellulitis (ICD-10 - L03.90) has resolved 12/25/2024 Mild intermittent asthma without complication (ICD-10 - J45.20) 02/03/2025 Acute cellulitis (ICD-10 - L03.90) 03/03/2025 Elevated BUN (ICD-10 - R79.9) is going to repeat 12/25/2024 Acute cellulitis (ICD-10 - L03.90) 03/03/2025 Aortic valve disorde r (ICD-10 - I35.9) had a tavr 03/03/2025 Pure hypercholesterolemia (ICD-10 - E78.00) doing well 03/03/2025 Chest pressure (ICD- 10 - R07.89) if pressure comes back 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 01/27/2025 Other Total time spent on the date of the encounter is 50 minutes including both face to face time spent and time spent reviewing documentation, pertinent lab data, studies and counseling the patient. Plan Of Treatment Pending Test Test Name Order Date Electrocardiogram (EKG) 01/27/2025 ECHO EXAM OF HEART 06/29/2015 CBC (INCLUDES DIFF/PLT) 10/07/2020 TSH (THYROID STIMULATING HORMONE) 2018 IRON + IBC (FE) 10/07/2020 VITAMIN B12 AND FOLATE 10/07/2020 XR KNEE LT 4 VIEWS 06/09/2022 BONE DENSITY DEXA 11/26/2023 MAMMOGRAM DIGITAL BILATERAL SCREEN 02/28 MAMMOGRAM DIGITAL BILATERAL SCREEN 03/07 EMG 12/07/2016 Nerve Conduction Study 12/07/2016 Blood Urea Nitrogen 03/03/2025 Next Appt Details Provider Name:Omid borden, 06/05/2025 02:00:00 PM, [address] [place] [address], [address], [phone], Provider Name:Omid borden, 08/27/2025 07:30:00 AM, [address] [place] [address], [address], [id number], Provider Name:Omid borden, 09/03/2025 02:00:00 PM, [address] [place] [address], [address], [phone], Provider Name:Omid borden, 03/01/2026 07:30:00 AM, [address] [place] [address], [address], [id number], Provider Name:Oimd borden, 03/08/2026 02:30:00 PM, [address], [address], [place], [place], [id number], Insurance Providers Payer Name Payer Address Payer Phone Subscriber Number Group Number Insured Name Patient Relationship to Insured Coverage Start Date Coverage End Date MEDICARE NHIC TAHIR [address] [place] [address] [id number] Vy Fishman Self - patient is the insured [facility] [address] [place] [phone] [id number] Vy Fishman Self - patient is the insured Medical (General) History Medical History History ICD Code Endoscopy and colonoscopy do ne 05/2007; both done 01/30/2014 repeat in 5 : 03/28/22 colonocopy awaiting path hematuria work up in 20's Needs yearly echo - DX Aortic Stenosis ( done 06/2015) ct abdomen 12/21 at [facility] normal
--- OUTSIDE RECORDS SUMMARY | 2025-03-03 18:27 | XMS_ITS | Encounter Summary ---
Author Organization [facility] Address [address] [place] [address] [address] [place] [address] Phone Care Team Providers Care Cad Librarian Name Role Phone Omid Jimenes MD Primary Care Provider Ramsey Ortez MD Unavailable [email or web address] Omid Jimenes MD Unavailable [phone] Emmanuel Lyman MD Unavailable [phone] Lizandro Guallpa MD Unavailable Cameron Vital MD, MSc Unavailable [phone] Reason for Referral * Physical Therapy (Routine) - Closed Specialty Diagnoses / Procedures Referred By Contlaci t Referred To Contact Physical Therapy Diagnoses Encounter for rehabilitation System, Provider Not In, [facility] [id number] [place] [address] Phone: tel: Referral ID Status Reason Start Date Expiration Date Visits Re quested Visits Authorized [id number] Closed 01/24/2018 01/24/2019 99 [phone] Encounter Details Date Type Department Care Team (Latest Contact Info) Description 01/24/2018 Transcribe Orders [facility] [address] [place] [address] Omid Jimenes MD [address] [place] [address] [place] [address] Encounter for rehabilitation (Primary Dx) Social History [...] Description 03/10/2025 10:40 AM EST Office Visit [facility] Rheumatology [address] [place] [address] Geraldine Jay MD, MPH [address] [place] [address], [address] [address] [email or web address] Scheduled Referrals Name Type Priority Associated Diagnoses Orde r Schedule Ambulatory referral to [facility] Physical Therapy Outpatient Referral Routine Encounter for rehabilitation Ordered: 01/24/2018 documented as of this encounter Visit Diagnoses Diagnosis Encounter for rehabilitation- Primary documented in this encounter Additional Health Concerns Infection Onset Date Last Indicated Resolved Time CoV-Risk 12/07/2023 12/07/2023 12/18/2023 1:22 AM EDT documented as of this encounter Care Teams Cad Librarian Relationship Specialty Start Date End Date Omid Jimenes MD [address] [place] [address] [place] [address] PCP - General 7/1/14 Ramsey Ortez MD [email or web address] Historical LMR Provider 02/15/17 03/02/21 Omid Jimenes MD [address] [place] [address] [place] [address] Historical LMR Provider 02/15/17 Emmanuel Lyman MD [address] [place] [address] [id number] [place] [address] [email or web address] Highway Patrol Officer Cardiology 11/22/20 Lizandro Guallpa MD [address] [place] [address] [id number] [place] [address] [email or web address] 03/03/21 Cameron Vital MD, MSc [address] [place], [place] [id number] [place] [address] [email or web address] Highway Patrol Officer Cardiology 03/03/21 documented as of this encounter Additional Source Comments The information contained in this document represents components of the legal health record. It is not the complete legal health record.[facility]
--- OUTSIDE RECORDS SUMMARY | 2025-03-03 18:27 | XMS_ITS | Encounter Summary ---
Author Organization [facility] Address [address] [facility] [address] [place] [address] Phone Care Team Providers Care Supercalender Operator Helper Name Role Phone Omid Jimenes MD Primary Care Provider Omid Jimenes MD Unavailable Emmanuel Lyman MD Unavailable [phone] Lizandro Guallpa MD Unavailable Cameron Vital MD, MSc Unavailable [phone] Encounter Details Date Type Department Care Team (Late st Contact Info) Description 11/29/2022 Procedure [place] [facility] [place] [address] [place] [address] Social History Tobacco Use Types Packs/Day Years [...] 03/10/2025 10:40 AM EST Office Visit [facility] Rheumatology [address] [place] [address] Geraldine Jay MD, MPH [address] [facility], [address] [place] [address] [email or web address] documented as of this encounter Visit Diagnoses Not on filedocumented in this encounter Additional Health Concerns Infection Onset Date Last Indicated Resolved Time CoV-Risk 12/07/2023 12/07/2023 12/18/2023 1:22 AM EDT Assessment Noted Time PHQ-9 Depression Total Score: 3 05/24/19 22 2:24 PM EST documented as of this encounter Care Teams Supercalender Operator Helper Relationship Specialty Start Date End Date Omid Jimenes MD [address] [place] [address] [place] [address] PCP - General 10/28/13 Omid Jimenes MD [address] [place] [address] [place] [address] Historical LMR Provider 02/15/17 Emmanuel Lyman MD [address] [facility] [id number] [place] [address] [email or web address] Medical Reception Specialist Cardiology 11/22/20 Lizandro Guallpa MD [address] [place] [address] [id number] [place] [address] [email or web address] 03/03/21 Cameron Vital MD, MSc [address] [place] [address] [id number] [place] [address] [email or web address] Medical Reception Specialist Cardiology 03/03/21 documented as of this encounter Additional Source Comments The information contained in this document represents components of the legal health record. It is not the complete legal health record.[facility]
--- OUTSIDE RECORDS SUMMARY | 2025-03-03 18:27 | XMS_ITS | Encounter Summary ---
Author Organization [facility] Address [address] [facility] [address] [place] [address] Phone Care Team Providers Care Grip Name Role Phone Omid Jimenes MD Primary Care Provider Ramsey Ortez MD Unavailable [facility] [email or web address] Omid Jimenes MD Unavailable [phone] Emmanuel Lmyan MD Unavailable [phone] Lizandro Guallpa MD Unavailable Cameron Vital MD, MSc Unavailable [phone] Encounter Details Date Type Department Care Team (Late st Contact Info) Description 11/18/2020 Procedure Pass MGP IMG 3DCTMR MG [address] [place] [address] Social History Tobacco Use Types Packs/Day Years [...] Description 03/10/2025 10:40 AM EST Office Visit [facility] Rheumatology [address] [place] [address] Geraldine Jay MD, MPH [address] [place] [address], [facility] [address] [place] [address] [email or web address] documented as of this encounter Visit Diagnoses Not on filedocumented in this encounter Additional Health Concerns Infection Onset Date Last Indicated Resolved Time CoV-Risk 12/07/2023 12/07/2023 12/18/2023 1:22 AM EDT documented as of this encounter Care Teams Grip Relationship Specialty Start Date End Date Omid Jimenes MD [address] [place] [address] [place] [address] PCP - General 10/28/13 Ramsey Ortez MD [email or web address] Historical LMR Provider 02/15/17 03/02/21 Omid Jimenes MD [address] [place] [address] [place] [address] Historical LMR Provider 02/15/17 Emmanuel Lyman MD [address] [place] [address] [id number] [place] [address] [email or web address] Media Marketing Director Cardiology 11/22/20 Lizandro Guallpa MD [address] [place] [address] [id number] [place] [address] [email or web address] [facility]rapeutics[facility] Rheumatology 03/03/21 Cameron Vital MD, MSc [address] [place] [address] [id number] [place] [address] [email or web address] Media Marketing Director Cardiology 03/03/21 documented as of this encounter Additional Source Comments The information contained in this document represents components of the legal health record. It is not the complete legal health record.[facility]
--- OUTSIDE RECORDS SUMMARY | 2025-03-03 18:27 | XMS_ITS | Encounter Summary ---
Author Organization [facility] Address [address] [facility] [address] [place] [address] Phone Care Team Providers Care Used Car Renovator Name Role Phone Omid Jimenes MD Primary Care Provider Omid Jimenes MD Unavailable [phone] Emmanuel Lyman MD Unavailable [phone] Lizandro Guallpa MD Unavailable Cameron Vital MD, MSc Unavailable [phone] Encounter Details Date Type Department Care Team (Late st Contact Info) Description 03/16/2021 Procedure Pass [facility]PT [address] [place] [id number] Social History Tobacco Use Types Packs/Day Years [...] Author No Risk Indicated 03/16/2021 5:00 PM Sno Banuelos RN * [place] Suicide Severity Rating Scale (Screener/Recent Self-Report) Question [...] [facility] Rhe[facility] [address] [place] [address] Geraldine Jay MD, MPH [address] [facility], [address] [place] [address] [email or web address] documented as of this encounter Visit Diagnoses Not on filedocumented in this encounter Additional Health Concerns Infection Onset Date Last Indicated Resolved Time CoV-Risk 12/07/2023 12/07/2023 12/18/2023 1:22 AM EDT documented as of this encounter Care Teams Used Car Renovator Relationship Specialty Start Date End Date Omid Jimenes MD [address] [place] [address] [place] [address] PCP - General 10/28/13 Omid Jimenes MD [address] [place] [address] [place] [address] Historical LMR Provider 02/15/17 Emmanuel Lyman MD [address] [place] [address] [id number] [place] [address] [email or web address] Diplomatic Officer Cardiology 11/22/20 Lizandro Guallpa MD [address] [place] [address] [id number] [place] [address] [email or web address] Rheumatology 03/03/21 Cameron Vital MD, MSc [address] [place], [place] [address]B-5980 [place] [address] [email or web address] Diplomatic Officer Cardiology 03/03/21 documented as of this encounter Additional Source Comments The information contained in this document represents components of the legal health record. It is not the complete legal health record.[facility]
--- OUTSIDE RECORDS SUMMARY | 2025-03-03 18:27 | XMS_ITS | Clinical Summary ---
Author Organization [facility] Address [facility] [place] [address] Care Team Providers Care Horse Shoer Name Role Phone Unavailable Primary Care Provider [...] Daily. Active azelastine-fluti casone (DYMISTA) 137-50 mcg/spray [place], Non-Aerosol 1 puff in each nostril Active [...] puff into the lungs Twice daily. Active EV-Hwe-Mzhdj Acid-Lutein (ESSENTIAL WOMAN 50+) 0.4-250 mg-mcg Tablet [...] Tablet 1 Active ipratropium (ATROVENT) 0.03 % [place], Non-Aerosol USE 2 SPRAYS BY NASAL ROUTE [...] of this 29-minute visit was spent in bbqs-tu-[id number] conversation with the patient and her present [...] Medications are be left unchanged and enlarged dirt bike mechanic on tools and utensils and be used [...] - 1-dose 75+ series) 07/04/2019 Covid-19 Vaccine (2024- season) 2024 Influenza (Flu) vaccine (1 o f 1 - Influenza standard series) 12/29/2024 [place] [id number] [facility] ANGELA STEVE [address]
--- OUTSIDE RECORDS SUMMARY | 2025-03-03 18:27 | XMS_ITS | Encounter Summary ---
Author Organization [facility] Address [address] [facility] [address] [place] [address] Phone Care Team Providers Care Economic Geographer Name Role Phone Omid Jimenes MD Primary Care Provider Ramsey Ortez MD Unavailable [email or web address] [email or web address] Omid Jimenes MD Unavailable [phone] Emmanuel Lyman MD Unavailable [phone] Lizandro Guallpa MD Unavailable Cameron Vital MD, MSc Unavailable [phone] Encounter Details Date Type Department Care Team (Late st Contact Info) Description 08/29/2020 Procedure Pass [facility] Cardiac US [address] [place] [address] Social History Tobacco Use Types Packs/Day Years [...] Description 03/10/2025 10:40 AM EST Office Visit [facility] Rheumatology [address] [place] [address] Geraldine Jay MD, MPH [address] [place] [address], [facility] [address] [place] [address] [email or web address] documented as of this encounter Visit Diagnoses Not on filedocumented in this encounter Additional Health Concerns Infection Onset Date Last Indicated Resolved Time CoV-Risk 12/07/2023 12/07/2023 12/18/2023 1:2 2 AM EDT documented as of this encounter Care Teams Economic Geographer Relationship Specialty Start Date End Date Omid Jimenes MD [address] [place] [address] Dr COBB [address] [place] [address] PCP - General 10/28/13 Ramsey Ortez MD [email or web address] Historical LMR Provider 02/15/17 03/02/21 Omid Jimenes MD [address] [place] [address] Dr COBB [address] [place] [address] Historical LMR Provider 02/15/17 Emmanuel Lyman MD [address] [place] [address] [id number] [place] [address] [email or web address] Advertising Editor Cardiology 11/22/20 Lizandro Guallpa MD [address] [place] [address] [id number] [place] [address] [email or web address] Rheumatology 03/03/21 Cameron Vital MD, MSc [address] [place] [address] [id number] [place] [address] [email or web address] Advertising Editor Cardiology 03/03/21 documented as of this encounter Additional Source Comments The information contained in this document represents components of the legal health record. It is not the complete legal health record.[facility]
--- OUTSIDE RECORDS SUMMARY | 2025-03-03 18:27 | XMS_ITS | Encounter Summary ---
Author Organization [facility] Address [address] [facility] [address] [place] [address] Phone Care Team Providers Care It Project Lead Name Role Phone Omid Jimenes MD Primary Care Provider Ramsey Ortez MD Unavailable [email or web address] [email or web address] Omid Jimenes MD Unavailable [phone] Emmanuel Lyman MD Unavailable [phone] Lizandro Guallpa MD Unavailable Cameron Vital MD, MSc Unavailable [phone] Encounter Details Date Type Department Care Team (Late st Contact Info) Description 02/17/2017 Ancillary Orders [facility], Bone Density - [address] [address] Omid Jimenes MD [address] [place] [address] [place] [address] At risk for osteoporosis Social History Tobacco [...] Description 03/10/2025 10:40 AM EST Office Visit [facility] Rheumatology [address] [place] [address] Geraldine Jay MD, MPH [address] [place] [address], [address] [address] [email or web address] documented as of this encounter Results * BD DXA AXIAL (SPINE) WITH HIP (03/08/2017 1:14 PM EST) Anatomical Region Laterality Modality Bone Density Bone Density 03/08/2017 2:02 PM EST Impressions 03/08/2017 2:04 PM EST Normal bone mineral density at all three sites assessed. POS - [id number] Narrative 03/08/2017 2:04 PM EST COMPARISON: None [...] the right hip was calculated at 1.114 gm/kr7shry a T-score of 1.4 falling within the WHO classification of normal.Z-score of 3.1. Total bone mineral density in the left hip was calculated at 1.062 gm/nj1cpbt a T-score of 1.0 falling within the WHO classification of normal.Z-score of 2.6. IMPRESSION: Normal bone mineral density at all three sites assessed. POS - [id number] Omid Jimenes MD IMG BD BONE DENSITY DEX A Final Result documented in this encounter Visit Diagnoses Diagnosis At risk for osteoporosis Other specified conditions influencing health status At risk for osteoporosis Other specified conditions influencing health status documented in this encounter Additional Health Concerns Infection Onset Date Last Indicated Resolved Time CoV-Risk 12/07/2023 12/07/2023 12/18/2023 1:22 AM EDT documented as of this encounter Care Teams It Project Lead Relationship Specialty Start Date End Date Omid Jimenes MD [address] [place] [address] [place] [address] PCP - General 10/28/13 Ramsey Ortez MD [email or web address] Historical LMR Provider 02/15/17 03/02/21 Omid Jimenes MD [address] [place] [address] [place] [address] Historical LMR Provider 02/15/17 Emmanuel Lyman MD [address] [place] [address] [id number] [place] [address] [email or web address] District Representative Cardiology 11/22/20 Lizandro Guallpa MD [address] [place] [address] [id number] [place] [address] [email or web address] Rheumatology 03/03/21 Cameron Vital MD, MSc [address] [place], [place] [address]B-[address] [place] [address] [email or web address].[facility] District Representative Cardiology 03/03/21 documented as of this encounter Additional Source Comments The information contained in this document represents components of the legal health record. It is not the complete legal health record.[facility]
--- OUTSIDE RECORDS SUMMARY | 2025-03-03 18:27 | XMS_ITS | Encounter Summary ---
Author Organization [facility] Address [address] [facility] [address] [place] [address] Phone Care Team Providers Care Drill Press Set Up Operator Radial Name Role Phone Omid Jimenes MD Primary Care Provider Omid Jimenes MD Unavailable [phone] Emmanuel Lyman MD Unavailable [phone] Lizandro Guallpa MD Unavailable Cameron Vital MD, MSc Unavailable [phone] Encounter Details Date Type Department Care Team (Late st Contact Info) Description 10/26/2022 Procedure Pass [address] [place] [address] Social History Tobacco Use Types Packs/Day Years [...] Description 03/10/2025 10:40 AM EST Office Visit [facility] Rheumatology [address] [place] [address] Geraldine Jay MD, MPH [address] [facility], [address] [place] [address] [email or web address] documented as of this encounter Visit Diagnoses Not on filedocumented in this encounter Additional Health Concerns Infection Onset Date Last Indicated Resolved Time CoV-Risk 12/07/2023 12/07/2023 12/18/2023 1:22 AM EDT Assessment Noted Time PHQ-9 Depression Total Score: 3 05/24/19 22 2:24 PM EST documented as of this encounter Care Teams Drill Press Set Up Operator Radial Relationship Specialty Start Date End Date Omid Jimenes MD [address] [place] [address] [place] [address] PCP - General 10/28/13 Omid Jimenes MD [address] [place] [address] [place] [address] Historical LMR Provider 02/15/17 Emmanuel Lyman MD [address] [place] [address] [id number] [place] [address] [email or web address] Dramatic Critic Cardiology 11/22/20 Lizandro Guallpa MD [address] [place] [address] [id number] [place] [address] [email or web address] medical [email or web address] Rheumatology 03/03/21 Cameron Vital MD, MSc [address] [place] [address] [id number] [place] [address] [email or web address].[facility] Dramatic Critic Cardiology 03/03/21 documented as of this encounter Additional Source Comments The information contained in this document represents components of the legal health record. It is not the complete legal health record.[facility]
--- OUTSIDE RECORDS SUMMARY | 2025-03-03 18:27 | XMS_ITS | Encounter Summary ---
Author Organization [facility] Address [address] [facility] [address] [place] [address] Phone Care Team Providers Care Nursing Unit Coordinator Name Role Phone Omid Jimenes MD Primary Care Provider Omid Jimenes MD Unavailable Emmanuel Lyman MD Unavailable [phone] Lizandro Guallpa MD Unavailable Cameron Vital MD, MSc Unavailable [phone] Encounter Details Date Type Department Care Team (Late st Contact Info) Description 01/17/2023 Procedure Pass [address] [place] [address] Social History Tobacco Use Types Packs/Day Years [...] Description 03/10/2025 10:40 AM EST Office Visit [facility] Rheumatology [address] [place] [address] Geraldine Jay MD, MPH [address] [facility], [address] [place] [address] [email or web address] documented as of this encounter Visit Diagnoses Not on filedocumented in this encounter Additional Health Concerns Infection Onset Date Last Indicated Resolved Time CoV-Risk 12/07/2023 12/07/2023 12/18/2023 1:22 AM EDT Assessment Noted Time PHQ-9 Depression Total Score: 3 05/24/19 22 2:24 PM EST documented as of this encounter Care Teams Nursing Unit Coordinator Relationship Specialty Start Date End Date Omid Jimenes MD [address] [place] [address] [place] [address] PCP - General 10/28/13 Omid Jimenes MD [address] [place] [address] [place] [address] Historical LMR Provider 02/15/17 Emmanuel Lyman MD [address] [place] [address] [id number] [place] [address] [email or web address] Managed Services Consultant Cardiology 11/22/20 Lizandro Guallpa MD [address] [place] [address] [id number] [place] [address] [email or web address] treatment centerFRAMEDcedar county memorial hospital Rheumatology 03/03/21 Cameron Vital MD, MSc [address] [place] [address] [id number] [place] [address] [email or web address] Managed Services Consultant Cardiology 03/03/21 documented as of this encounter Additional Source Comments The information contained in this document represents components of the legal health record. It is not the complete legal health record.[facility]
--- OUTSIDE RECORDS SUMMARY | 2025-03-03 18:27 | XMS_ITS | Encounter Summary ---
Author Organization [facility] Address [address] [facility] [address] [place] [address] Phone Care Team Providers Care Traffic Rate Analyst Name Role Phone Omid Jimenes MD Primary Care Provider Omid Jimenes MD Unavailable Emmanuel Lyman MD Unavailable [phone] Lizandro Guallpa MD Unavailable Cameron Vital MD, MSc Unavailable [phone] Encounter Details Date Type Department Care Team (Late st Contact Info) Description 03/17/2021 Procedure Pass [facility] Cardiac US [address] [place] [address] Social History Tobacco Use Types Packs/Day Years [...] 03/10/2025 10:40 AM EST Office Visit [facility] Rheumatology [address] [place] [address] Geraldine Jay MD, MPH [address] [facility], [address] [place] [address] [email or web address] documented as of this encounter Visit Diagnoses Not on filedocumented in this encounter Additional Health Concerns Infection Onset Date Last Indicated Resolved Time CoV-Risk 12/07/2023 12/07/2023 12/18/2023 1:22 AM EDT documented as of this encounter Care Teams Traffic Rate Analyst Relationship Specialty Start Date End Date Omid Jimenes MD [address] [place] [address] Dr COBB [address] [place] [address] PCP - General 10/28/13 Omid Jimenes MD [address] [place] [address] [place] [address] Historical LMR Provider 02/15/17 Emmanuel Lyman MD [address] [facility] [id number] [place] [address] Assistant Director Of Security Cardiology 11/22/20 Lizandro Guallpa MD [address] [facility] [id number] [place] [address] [email or web address] Rheumatology 03/03/21 Cameron Vital MD, MSc [address] [address] [email or web address] [email or web address].[facility] Assistant Director Of Security Cardiology 03/03/21 documented as of this encounter Additional Source Comments The information contained in this document represents components of the legal health record. It is not the complete legal health record.[facility]
--- OUTSIDE RECORDS SUMMARY | 2025-03-03 18:27 | XMS_ITS | Encounter Summary ---
Author Organization [facility] Address [address] [facility] [address] [place] [address] Phone Care Team Providers Care Magnetic Locater Name Role Phone Omid Jimenes MD Primary Care Provider Ramsey Ortez MD Unavailable [email or web address] Omid Jimenes MD Unavailable [phone] Emmanuel Lyman MD Unavailable [phone] Lizandro Guallpa MD Unavailable Cameron Vital MD, MSc Unavailable [phone] Encounter Details Date Type Department Care Team (Late st Contact Info) Description 04/21/2020 Telephone [employer] [facility] Rheumatology [address] [place] [address] Ramsey Ortez MD [email or web address] Social History Tobacco Use Types Packs/Day Years [...] Description 03/10/2025 10:40 AM EST Office Visit [facility] Rheumatology [address] [place] [address] Geraldine Jay MD, MPH [address] [facility], [address] [place] [address] [email or web address] documented as of this encounter Visit Diagnoses Not on filedocumented in this encounter Additional Health Concerns Infection Onset Date Last Indicated Resolved Time CoV-Risk 12/07/2023 12/07/2023 12/18/2023 1:22 AM EDT documented as of this encounter Care Teams Magnetic Locater Relationship Specialty Start Date End Date Omid Jimenes MD [address] [place] [address] [place] [address] PCP - General 10/28/13 Ramsey Ortez MD [email or web address] Historical LMR Provider 02/15/17 03/02/21 Omid Jimenes MD [address] [place] [address] [place] [address] Historical LMR Provider 02/15/17 Emmanuel Lyman MD [address] [place] [address] [id number] [place] [address] [email or web address] Translational Specialist Cardiology 11/22/20 Lizandro Guallpa MD [address] [place] [address] [id number] [place] [address] [email or web address] Rheumatology 03/03/21 Cameron Vital MD, MSc [address] [place] [address] [id number] [place] [address] [email or web address] Translational Specialist Cardiology 03/03/21 documented as of this encounter Additional Source Comments The information contained in this document represents components of the legal health record. It is not the complete legal health record.[facility]
--- OUTSIDE RECORDS SUMMARY | 2025-03-03 18:27 | XMS_ITS | Encounter Summary ---
Author Organization [facility] Address [address] [facility] [address] [place] [address] Phone Care Team Providers Care Veneer Layer Name Role Phone Omid Jimenes MD Primary Care Provider Omid Jimenes MD Unavailable Emmanuel Lyman MD Unavailable [phone] Lizandro Guallpa MD Unavailable Cameron Vital MD, MSc Unavailable [phone] Encounter Details Date Type Department Care Team (Late st Contact Info) Description 09/08/2021 Procedure Pass [facility] Cardiac US [address] [place] [address] Social History Tobacco Use Types Packs/Day Years [...] Description 03/10/2025 10:40 AM EST Office Visit [facility] Rheumatology [address] [place] [address] Geraldine Jay MD, MPH [address] [facility], [address] [place] [address] [email or web address] documented as of this encounter Visit Diagnoses Not on filedocumented in this encounter Additional Health Concerns Infection Onset Date Last Indicated Resolved Time CoV-Risk 12/07/2023 12/07/2023 12/18/2023 1:22 AM EDT Assessment Noted Time PHQ-9 Depression Total Score: 3 05/24/19 22 2:24 PM EST documented as of this encounter Care Teams Veneer Layer Relationship Specialty Start Date End Date Omid Jimenes MD [address] [place] [address] Dr COBB [address] [place] [address] PCP - General 10/28/13 Omid Jimenes MD [address] [place] [address] Dr COBB [address] [place] [address] Historical LMR Provider 02/15/17 Emmanuel Lyman MD [address] [employer] GR[address] [id number] [place] [address] [email or web address] Hand Rigger Cardiology 11/22/20 Lizandro Guallpa MD [address] [place] [address] GRB [id number] [place] [address] [email or web address] Rheumatology 03/03/21 Cameron Vital MD, MSc [address] [place] [address] [id number] [place] [address] [email or web address] Hand Rigger Cardiology 03/03/21 documented as of this encounter Additional Source Comments The information contained in this document represents components of the legal health record. It is not the complete legal health record.[facility]
--- OUTSIDE RECORDS SUMMARY | 2025-03-03 18:27 | XMS_ITS | Encounter Summary ---
Author Organization [facility] Address [address] [place] [address] [address] [place] [address] Phone Care Team Providers Care Knife Sharpener Name Role Phone Omid Jimenes MD Primary Care Provider Omid Jimenes MD Unavailable [phone] Emmanuel Lyman MD Unavailable [phone] Lizandro Guallpa MD Unavailable Cameron Vital MD, MSc Unavailable [phone] Reason for Referral * MRI/CAT Scan - Closed Specialty Diagnoses / Procedures Referred By Folres barrett Referred To Contact Radiology Diagnoses Radiculopathy, lumbar region Procedures MRI Lumbar Spine Dimitri Dominguez PA Phone: tel: fax: Referral ID Status Reason Start Date Expiration Date Visits Re quested Visits Authorized [id number] Closed 10/26/2022 1 1 Encounter Details Date Type Department Care Team (Late Contact Info) Description 10/26/2022 Transcribe Orders Virtual Department [address] [place] [address] Dimitri Dominguez PA [address] [facility] [address] [place] [address] Radiculopathy, lumbar region (Primary Dx) Social History [...] Encounters Date Type Department Care Team (Late Contact Info) Description 03/10/2025 10:40 AM EST Office Visit [facility] [place] [address] Geraldine Jay MD, MPH [address] [facility], [address] [place] [address] documented as of this encounter Results * [...] unchanged in flexion and extension. 4 mm L1-W0qadtbxhorjslco, unchanged in flexion and extension. VERTEBRAE: Bones demineralized. Unchanged L2 superior endplate compressionfracture with 10-25% height loss. DISCS: Disc height loss and plate sclerosis and marginal osteophytes atall levels. FACETS: Facet arthropathy L2-S1. PARASPINAL SOFT TISSUES: Moderate aortic vascular calcification.Constipation. Sacral iliac joint degenerative changes. Right upperquadrant cholecystectomy clips. IMPRESSION: Severe lumbar spine degenerative change. Unchanged alignment in flexion and extension. us Dimitri ARVIZU IMG XR SPINE Final Resul [...] documented as of this encounter Care Teams Knife Sharpener Relationship Specialty Start Date End Date Omid Jimenes MD [address] [place] [address] Dr COBB [address] [place] [address] PCP - General 10/28/13 Omid Jimenes MD [address] [place] [address] Dr COBB [address] [place] [address] Historical LMR Provider 02/15/17 Emmanuel Lyman MD [address] [place] [address] [id number] [place] [address] [email or web address] Programming Engineer Cardiology 11/22/20 Lizandro Guallpa MD [address] [place] [address] [id number] [place] [address] [email or web address] 03/03/21 Cameron Vital MD, MSc [address] [place] [address] [id number] [place] [address] [email or web address] Programming Engineer Cardiology 03/03/21 documented as of this encounter Additional Source Comments The information contained in this document represents components of the legal health record. It is not the complete legal health record.[facility]
--- OUTSIDE RECORDS SUMMARY | 2025-03-03 18:27 | XMS_ITS | Encounter Summary ---
Author Organization [facility] Address [address] [facility] [address] [place] [address] Phone Care Team Providers Care Leaf Sorter Name Role Phone Omid Jimenes MD Primary Care Provider Omid Jimenes MD Unavailable [phone] Emmanuel Lyman MD Unavailable [phone] Lizandro Guallpa MD Unavailable Cameron Vital MD, MSc Unavailable [phone] Encounter Details Date Type Department Care Team (Late st Contact Info) Description 03/16/2021 Procedure Pass [facility] Cardiac US [address] [place] [address] Social History Tobacco Use Types Packs/Day Years [...] 03/16/2021 5:00 PM Son Banuelos RN * [place] Suicide Severity Rating Scale (Screener/Recent Self-Report) Question [...] Description 03/10/2025 10:40 AM EST Office Visit [facility] Rheumatology [address] [place] [address] Geraldine Jay MD, MPH [address] [facility], [address] [place] [address] [email or web address] documented as of this encounter Visit Diagnoses Not on filedocumented in this encounter Additional Health Concerns Infection Onset Date Last Indicated Resolved Time CoV-Risk 12/07/2023 12/07/2023 12/18/2023 1:22 AM EDT documented as of this encounter Care Teams Leaf Sorter Relationship Specialty Start Date End Date Omid Jimenes MD [address] [place] [address] [place] [address] PCP - General 10/28/13 Omid Jimenes MD [address] [place] [address] [place] [address] Historical LMR Provider 02/15/17 Emmanuel Lyman MD [address] [place] [address] [id number] [place] [address] [email or web address] Transport Operations Inspector Cardiology 11/22/20 Lizandro Guallpa MD [address] [place] [address] [id number] [place] [address] [email or web address] [facility] Rheumatology 03/03/21 Cameron Vital MD, MSc [address] [place] [address] [id number] [place] [address] [email or web address] Transport Operations Inspector Cardiology 03/03/21 documented as of this encounter Additional Source Comments The information contained in this document represents components of the legal health record. It is not the complete legal health record.[facility]
--- OUTSIDE RECORDS SUMMARY | 2025-03-03 18:28 | XMS_ITS | Encounter Summary ---
Author Organization [facility] Address [address] [place] [address] [address] [place] [address] Phone Care Team Providers Care Client Services Coordinator Name Role Phone Omid Jimenes MD Primary Care Provider Omid Jimenes MD Unavailable [phone] Emmanuel Lyman MD Unavailable [phone] Lizandro Guallpa MD Unavailable Cameron Vital MD, MSc Unavailable [phone] Reason for Referral * MRI/CAT Scan - Closed Specialty Diagnoses / Procedures Referred By Contac t Referred To Contact Radiology Diagnoses Spinal stenosis, lumbar region with neurogenic claudication Procedures MRI Lumbar Spine Hector Scherer MD Phone: tel: Referral ID Status Reason Start Date Expiration Date Visits Re quested Visits Authorized [id number] Closed 05/27/2021 05/27/2022 1 1 Encounter Details Date Type Department Care Team (Latest Contact Info) Description 05/27/2021 Transcribe Orders Virtual Department 30 [place] [address] Hector Scherer MD 5 [place] [address] Spinal stenosis, lumbar region with neurogenic claudication (Primary Dx) Social History Tobacco Use Types Packs/Day Years Used Date Smoking Tobacco: Former Cigarettes 1 [id number] Smokeless Tobacco: Never Alcohol Use Standard [...] Description 03/10/2025 10:40 AM EST Office Visit [facility] Rheumatology 22 [place] [address] Geraldine Jay MD, MPH [address] [facility], [facility] [address] [place] [address] [email or web address] documented as of this encounter Results * [...] Advanced multilevel degenerative changes, overall mildly progressed [id number]. Severe neuroforaminal stenosis on the left at L4-L5 and on the leftat L5-S1. No severe spinal canal stenosis. Hector Scherer MD IMG MR XSPECIALTY Final Result [...] documented as of this encounter Care Teams Client Services Coordinator Relationship Specialty Start Date End Date Omid Jimenes MD [address] [place] [address] [place] [address] PCP - General 10/28/13 Omid Jimenes MD [address] [place] [address] [place] [address] Historical LMR Provider 02/15/17 Emmanuel Lyman MD [address] [facility] [facility] [id number] [place] [address] [email or web address] Mincing Machine Operator Cardiology 11/22/20 Lizandro Guallpa MD [address] [facility] [id number] [place] [address] [email or web address] .[email or web address] Rheumatology 03/03/21 Cameron Vital MD, MSc [address] [facility] [id number] [place] [address] [email or web address] Mincing Machine Operator Cardiology 03/03/21 documented as of this encounter Additional Source Comments The information contained in this document represents components of the legal health record. It is not the complete legal health record.[facility]
--- OUTSIDE RECORDS SUMMARY | 2025-03-03 18:28 | XMS_ITS | Encounter Summary ---
Author Organization [facility] Address [address] [facility] [address] [place] [address] Phone Care Team Providers Care Manager Terminal Name Role Phone Omid Jimenes MD Primary Care Provider Omid Jimenes MD Unavailable [phone] Emmanuel Lyman MD Unavailable [phone] Lizandro Guallpa MD Unavailable Cameron Vital MD, MSc Unavailable [phone] Encounter Details Date Type Department Care Team (Late st Contact Info) Description 04/26/2021 Procedure Pass [facility] Cardiac US [address] [place] [address] Social History Tobacco Use Types Packs/Day Years [...] 03/10/2025 10:40 AM EST Office Visit [facility] Rheumatology [address] [place] [address] Geraldine Jay MD, MPH [address] [facility], [address] [place] [address] [email or web address] documented as of this encounter Visit Diagnoses Not on filedocumented in this encounter Additional Health Concerns Infection Onset Date Last Indicated Resolved Time CoV-Risk 12/07/2023 12/07/2023 12/18/2023 1:22 AM EDT Assessment Noted Time PHQ-9 Depression Total Score: 3 05/24/19 22 2:24 PM EST documented as of this encounter Care Teams Manager Terminal Relationship Specialty Start Date End Date Omid Jimenes MD [address] [place] [address] Dr COBB [address] [place] [address] PCP - General 10/28/13 Omid Jimenes MD [address] [place] [address] Dr COBB [address] [place] [address] Historical LMR Provider 02/15/17 Emmanuel Lyman MD [address] [employer] [address] [id number] [place] [address] [email or web address] Continuous Process Machine Operator Cardiology 11/22/20 Lizandro Guallpa MD [address] [place] [address] GRB [id number] [place] [address] [email or web address] Rheumatology 03/03/21 Cameron Vital MD, MSc [address] [place] [address] [id number] [place] [address] [email or web address] Continuous Process Machine Operator Cardiology 03/03/21 documented as of this encounter Additional Source Comments The information contained in this document represents components of the legal health record. It is not the complete legal health record.[facility]
--- OUTSIDE RECORDS SUMMARY | 2025-03-03 18:28 | XMS_ITS | Encounter Summary ---
Author Organization [facility] Address [address] [facility] [address] [place] [address] Phone Care Team Providers Care Open Claims Representative Name Role Phone Omid Jimenes MD Primary Care Provider Omid Jimenes MD Unavailable [phone] Emmanuel Lyman MD Unavailable [phone] Lizandro Guallpa MD Unavailable Cameron Vital MD, MSc Unavailable [phone] Encounter Details Date Type Department Care Team (Late st Contact Info) Description 05/27/2021 Procedure Pass [address] [place] [address] Social History Tobacco Use Types Packs/Day Years [...] Description 03/10/2025 10:40 AM EST Office Visit [facility] Rheumatology [address] [place] [address] Geraldine Jay MD, MPH 22 [facility], [address] [place] [address] [email or web address] documented as of this encounter Visit Diagnoses Not on filedocumented in this encounter Additional Health Concerns Infection Onset Date Last Indicated Resolved Time CoV-Risk 12/07/2023 12/07/2023 12/18/2023 1:22 AM EDT Assessment Noted Time PHQ-9 Depression Total Score: 3 05/24/19 22 2:24 PM EST documented as of this encounter Care Teams Open Claims Representative Relationship Specialty Start Date End Date Omid Jimenes MD [address] [place] [address] Dr COBB [address] [place] [address] PCP - General 10/28/13 Omid Jimenes MD [address] [place] [address] Dr COBB [address] [place] [address] Historical LMR Provider 02/15/17 Emmanuel Lyman MD [address] [place] [address] [id number] [place] [address] [email or web address] Videotape Editor Cardiology 11/22/20 Lizandro Guallpa MD [address] [place] [address] GRB [id number] [place] [address] [email or web address] pers[facility] center Rheumatology 03/03/21 Cameron Vital MD, MSc [address] [place] [address] [id number] [place] [address] [email or web address] Videotape Editor Cardiology 03/03/21 documented as of this encounter Additional Source Comments The information contained in this document represents components of the legal health record. It is not the complete legal health record.[facility]
--- OUTSIDE RECORDS SUMMARY | 2025-03-03 18:28 | XMS_ITS | Patient Health Record ---
Author Organization Cameron Monge MD Address [address] [place] [address] Support Name Relationship Address Phone Kye Vy [...] Notes Problem Spinal stenosis of lumbar region (45554761) Spinal stenosis of lumbar region (724.02) Active confirmed Problem Lumbosacral spondylosis without myelopathy (67067740) Lumbosacral spondylosis without myelopathy (721.3) Active confirmed Plan Of Treatment No Information Insurance Providers Payer Name Payer Address Payer Phone Subscriber Number Group Number Insured Name Patient Relationship to Insured Coverage Start Date [facility]age End Date [facility] [address] [place], [place] [address] [id number] Vy Fishman Self - patient is the insured [facility] [id number] Vy Fishman Self - patient is the insured Medical (General) History Medical History History ICD Code DM hypothyrodism asthma right retinal vein occlusion HTN HPL Fe def anemia Surgical History Surgery Date(Month/Year) bilateral TKR 2009 bilateral cataract surgery 2011
--- OUTSIDE RECORDS SUMMARY | 2025-03-03 18:28 | XMS_ITS | Encounter Summary ---
Author Organization [facility] Address [address] [facility] [address] [place] [address] Phone Care Team Providers Care Carton Filler Name Role Phone Omid Jimenes MD Primary Care Provider Omid Jimenes MD Unavailable [phone] Emmanuel Lyman MD Unavailable [phone] Lizandro Guallpa MD Unavailable Cameron Vital MD, MSc Unavailable [phone] Encounter Details Date Type Department Care Team (Late st Contact Info) Description 12/07/2023 Procedure Pass [facility], Ct Scan - [address] [address] Social History Tobacco Use Types Packs/Day Years [...] Visit [facility] Rheumatology [address] [place] [address] Geraldine Jay MD, MPH 22 [facility], [address] [place] [address] [email or web address] documented as of this encounter Visit Diagnoses Not on filedocumented in this encounter Additional Health Concerns Infection Onset Date Last Indicated Resolved Time CoV-Risk 12/07/2023 12/07/2023 12/18/2023 1:22 AM EDT Assessment Noted Time PHQ-9 Depression Total Score: 3 05/24/19 22 2:24 PM EST documented as of this encounter Care Teams Carton Filler Relationship Specialty Start Date End Date Omid Jimenes MD [address] [place] [address] [place] [address] PCP - General 10/28/13 Omid Jimenes MD [address] [place] [address] [place] [address] Historical LMR Provider 02/15/17 Emmanuel Lyman MD [address] [place] [address] [id number] [place] [address] [email or web address] Front Desk Lead Cardiology 11/22/20 Lizandro Guallpa MD [address] [place] [address] [id number] [place] [address] [email or web address] Rheumatology 03/03/21 Cameron Vital MD, MSc [address] [place] [address] [id number] [place] [address] [email or web address] [facility].[facility] Front Desk Lead Cardiology 03/03/21 documented as of this encounter Additional Source Comments The information contained in this document represents components of the legal health record. It is not the complete legal health record.[facility]
--- OUTSIDE RECORDS SUMMARY | 2025-03-03 18:28 | XMS_ITS | Encounter Summary ---
Author Organization [facility] Address [address] [facility] [address] [place] [address] Phone Care Team Providers Care Dehairer Name Role Phone Omid Jimenes MD Primary Care Provider Ramsey Ortez MD Unavailable [email or web address] Omid Jimenes MD Unavailable [phone] Emmanuel Lyman MD Unavailable [phone] Lizandro Guallpa MD Unavailable Cameron Vital MD, MSc Unavailable [phone] Encounter Details Date Type Department Care Team (Late st Contact Info) Description 02/14/2021 Procedure Pass [facility] Cardiac US [address] [place] [address] Social History Tobacco Use Types Packs/Day Years [...] 03/10/2025 10:40 AM EST Office Visit [facility] Rheumatology [address] [place] [address] Geraldine Jay MD, MPH [address] [place] [address], [facility] [address] [place] [address] [email or web address] documented as of this encounter Visit Diagnoses Not on filedocumented in this encounter Additional Health Concerns Infection Onset Date Last Indicated Resolved Time CoV-Risk 12/07/2023 12/07/2023 12/18/2023 1:22 AM EDT documented as of this encounter Care Teams Dehairer Relationship Specialty Start Date End Date Omid Jimenes MD [address] [place] [address] [place] [address] PCP - General 10/28/13 Ramsey Ortez MD [email or web address] Historical LMR Provider 02/15/17 03/02/21 Omid Jimenes MD [address] [place] [address] [place] [address] Historical LMR Provider 02/15/17 Emmanuel Lyman MD [address] [place] [address] [id number] [place] [address] [email or web address] Silver Buffer Cardiology 11/22/20 Lizandro Guallpa MD [address] [place] [address] [id number] [place] [address] [email or web address] Rheumatology 03/03/21 Cameron Vital MD, MSc [address] [place] [address] [id number] [place] [address] [email or web address] Silver Buffer Cardiology 03/03/21 documented as of this encounter Additional Source Comments The information contained in this document represents components of the legal health record. It is not the complete legal health record.[facility]
--- OUTSIDE RECORDS SUMMARY | 2025-03-03 18:28 | XMS_ITS | Encounter Summary ---
Author Organization [facility] Address [address] [place] [address] Phone Care Team Providers Care Research Biostatistician Name Role Phone Omid Jimenes MD Primary Care Provider Omid Jimenes MD Unavailable [phone] Emmanuel Lyman MD Unavailable [phone] Lizandro Guallpa MD Unavailable Cameron Vital MD, MSc Unavailable [phone] Encounter Details Date Type Department Care Team (Late st Contact Info) Description 11/27/2023 Procedure Pass [facility] [place] [address] [place] [address] Social History Tobacco Use Types Packs/Day Years [...] AM EST Office Visit [facility] Rheumatology [address] [place] [address] Geraldine Jay MD, MPH [address], [address] [place] [address] [email or web address] documented as of this encounter Visit Diagnoses Not on filedocumented in this encounter Additional Health Concerns Infection Onset Date Last Indicated Resolved Time CoV-Risk 12/07/2023 12/07/2023 12/18/2023 1:22 AM EDT Assessment Noted Time PHQ-9 Depression Total Score: 3 05/24/19 22 2:24 PM EST documented as of this encounter Care Teams Research Biostatistician Relationship Specialty Start Date End Date Omid Jimenes MD [address] [place] [address] [place] [address] PCP - General 10/28/13 Omid Jimenes MD [address] [place] [address] [place] [address] Historical LMR Provider 02/15/17 Emmanuel Lyman MD [address] [facility] [id number] [place] [address] [email or web address] Composition Floor Setter Cardiology 11/22/20 Lizandro Guallpa MD [address] [place] [address] [id number] [place] [address] [email or web address] 03/03/21 Cameron Vital MD, MSc [address] [place] [address] [id number] [place] [address] [email or web address] Composition Floor Setter Cardiology 03/03/21 documented as of this encounter Additional Source Comments The information contained in this document represents components of the legal health record. It is not the complete legal health record.[facility]
--- OUTSIDE RECORDS SUMMARY | 2025-03-03 18:28 | XMS_ITS | Clinical Summary ---
Author Organization [facility] Address [address] [place] [address] [address] [place] [address] Phone Care Team Providers Care Ballast Cleaning Operator Name Role Phone Omid Jimenes MD Primary Care Provider Omid Jimenes MD Unavailable Emmanuel Lyman MD Unavailable [phone] Lizandro Guallpa MD Unavailable Cameron Vital MD, MSc Unavailable Allergies Active Allergy Reactions Criticality Noted Date [...] Drop 2 (two) times a day. Active azelastine-flu ticasone (DYMISTA) 137-50 mcg/spray [place] 1 spray 2 (two) times a day. Active atorvastatin (LIPITOR) 20 MG tablet Take 20 mg by mouth daily. Active potassium chloride SA (K-DUR,KLOR-CO N) 10 MEQ ER tablet Take 20 mEq by mouth 2 (two) times a day. Active fluticasone (FLOVENT HFA) 220 mcg/actuation inhaler Inhale [...] 6 (six) hours as needed for wheezing. Active insulin glargine (LANTUS) 100 unit/mL injection vial Inject 60 Units under the skin 2 (two) times a day. 019 Active Additional Information Patient taking differently: 90 UnitsSubcutaneous 2 times daily,60-70 units BID, Reported on 03/19/2024 acetaminophen (TYLENOL) 325 mg tablet Take 2 tablets (650 mg total) by mouth every 6 (six) hours as needed for mild pain or fever. 0 Active omeprazole (PRILOSEC) 20 MG capsule Take 20 mg by mouth daily. Active prochlorperazi ne (COMPAZINE) 5 MG tablet Take 1 tablet (5 mg total) by mouth every 6 (six) hours as needed for nausea. Active polyethylene glycol (MIRALAX) 17 gram/dose powder Take 17 g by mouth daily as needed. Active EPINEPHrine 0.3 mg/0.3 mL auto-injector Inject 0.3 mg into the muscle as needed for anaphylaxis. Active vancomycin (VANCOCIN) 125 MG capsule Take 125 mg by mouth. For 3 days prior to dental procedure Active Saccharomyces boulardii (FLORASTOR) 250 mg capsule Take 250 mg by mouth 2 (two) times a day. Active traZODone (DESYREL) 50 MG tablet Take 50 mg by mouth nightly at bedtime. Takes prn Active mepolizumab (NUCALA) 100 mg subcutaneous injection Inject 100 mg under the skin every 28 days. For allergies Activ e cetirizine (ZYRTEC) 10 MG tablet Take 10 mg by mouth 2 (two) times a day. Active cholecalcifero l (VITAMIN D3) 25 MCG (1,000 unit) tablet Take 1,000 Units by mouth daily. Active ferrous sulfate 325 mg (65 mg lytton iron) tablet Take 325 mg by mouth daily with breakfast. Active aspirin 81 mg chewable tablet Take 81 mg by mouth as needed. Active amoxicillin (AMOXIL) 500 MG capsule Take 4 capsules (2,000 mg total) by mouth as directed. Take one hour prior to dental work. 12 capsule 3 Active HYDROcodone-ac etaminophen (NORCO) 7.5-325 mg per tablet Take 1 tablet by mouth every 8 (eight) hours as needed. Partial fill ok 90 tablet Active DULoxetine (CYMBALTA) 60 MG capsule Take 1 capsule (60 mg total) by mouth daily. 90 capsule 1 Active gabapentin (NEURONTIN) 400 MG capsuleIndicat ions:Other chronic pain Take 1 capsule (400 mg total) by mouth nightly at bedtime. 90 capsule 3 022 Active allopurinol (ZYLOPRIM) 100 MG tabletIndicati ons:Idiopathic chronic gout of multiple sites without tophus Take 2 tablets (200 mg total) by mouth daily. 180 tablet 3 022 Active gabapentin (NEURONTIN) 100 MG capsule Take one cap po in AM 30 capsule 1 022 Active colchicine (COLCRYS) 0.6 mg tabletIndicati ons:04/20/20 patient took 3 tabs 2 hours apart each tab Take at the first sign of gout attack as follows: 2 tabs together then 1 more 1 hour later then 1 tab twice daily until gout sxs resolve Indications: 04/20/20 patient took 3 tabs 2 hours apart each tab 30 tablet 023 Active tirzepatide (MOUNJARO) 5 mg/0.5 mL PnIj Inject 5 mg under the skin. Active valsartan (DIOVAN) 40 MG tablet Take 1 tablet (40 mg total) by mouth daily. 90 tablet 3 024 Active torsemide (DEMADEX) 20 MG tablet Take 3 tablets (60 mg total) by mouth 2 (two) times a day (once in the morning and once in the afternoon). 540 tablet 3 025 Active furosemide (LASIX) 80 MG tablet Take 1 tablet (80 mg total) by mouth 2 (two) times a day. 180 tablet 3 022 2024 Discontinued torsemide 60 mg Tab Take 60 mg by mouth 2 (two) times a day. 180 tablet 3 025 2024 Discontinued Active Problems Problem Noted Date Diagnosed Date Positive KILEY (antinuclear antibody) 12/03/2023 Overview (12/03/2023): 1:640 ho; obtained by [facility] hospitalist 2019 for w/u of multiple joint [...] outpatient cardiac rehab once cleared by local director of global talent GERD (gastroesophageal reflux disease) Assessment & Plan [...] outpatient cardiac rehab once cleared by local director of global talent - F/u per ACURATE protocol - Longitudinal [...] outpatient cardiac rehab once cleared by local director of global talent - Will f/u in 6 months w/ a TTE Assessment & Plan (03/16/2021 6:37 PM EST): Severe symptomatic with exertional dyspnea. Today underwent a TAVR- was enrolled in the Acurate trial and randomized to a size small Acurate neo2 THV. - Monitor access sites closely. - ASA [...] outpatient cardiac rehab once cleared by local director of global talent Assessment & Plan (03/15/2021 5:17 PM EST): 75 yo female with HTN, DM2, morbid obesity, asthma, CLEVE on CPAP, and who has been followed with surveillance TTEs by her primary director of global talent, Dr. Matute. Over the past 18 months, she notes progressively worsening SOB and episode of HF requiring diuresis without improvement of symptoms. She was evaluated by [facility] Structural Cardiology for consideration of TAVR and [...] (01/12/2021 11:42 AM EDT): Followed by local director of global talent for several years for progressive aortic stenosis [...] RVSP 51 mmHg. She was consulted with [facility] Structural Heart Team for consideration of TAVR. [...] AM EDT): Primary mgmt has been through [facility]; patient states plan is to [...] and able she would consider consultation in [place] right now she feels that the pain [...] Chronic pain 11/04/2018 Overview (12/03/2023): Follows with [facility]; known l-spine stenosis s/p bl [...] OA / known spinal stenosis; following with [facility]. No significant symptomatic AEs with current [...] pain or weakness. Needs to move onto care home facility for PT OT. Tracheitis 11/03/2018 Assessment [...] Date Value Ref Range Status COVID-19 Comment 01/10/[id number] Final COVID Testing Status 01/10/2021 Sent to [facility] Final Specimen Source/Description 01/10/2021 NASAL [...] 0.43 cm2/m2 Final Left Ventricular Outflow Tract Chraisse* 11/18/2020 2.0 cm Final Left Ventricular Outflow [...] QTC Interval 12/26/2018 508 ms Final P Stratton 12/26/2018 34 degrees Final R Wave Stratton 12/26/2018 -35 degrees Final T Wave Stratton 12/26/2018 70 degrees Final MAGNESIUM 12/26/2018 1.6 [...] QTC Interval 12/09/2018 449 ms Final P Stratton 12/09/2018 8 degrees Final R Wave Stratton 12/09/2018 -30 degrees Final T Wave Strat[place] 12/09/2018 71 degrees Final WBC 12/09/2018 8.46 [...] a consult with Dr. Cohen a well-respected licensed practical nurse clinic nurse as well as a director of global talent to continue to treat her compensated for now congestive heart failure. She understands the relationship between obesity, furosemide, low-dose aspirin, and hyperuricemia and she also understands the between hyperuricemia, polyarticular gout, and worsening kidney disease. All questions were answered and greater than 50% of this 30-minute visit was spent [id number] conversation with the patient with her present. [...] AM EDT): Patient has been residing at [facility] for [facility] care for some time now. She [...] She would like to do this at [facility]. Assessment & Plan (12/26/2018 8:24 AM EDT): Patient is followed by by an outside director of global talent. She is been maintained on Lasix 40 [...] relief and she will contact the paint booth operator for consideration of a corticosteroid epidural injection. 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 Assessment & Plan (10/04/2020 3:12 PM EDT): Severe interphalangeal osteoarthritis of both hands is symptomatic but stable. She will continue to use heat, enlarged physiotherapy aide on tools and utensils and judicious use [...] the interphalangeal and basilar thumb joints. Enlarged physiotherapy aide on tools and utensils and basilar thumb joint splints and when necessary intra- articular cortisone injections. Assessment & Plan (07/22/2018 12:30 PM EDT): Severe and painful osteoarthritis involving the basilar thumb joints and interphalangeal joints of both hands. We discussed the judicious use of warmth as well as enlarged physiotherapy aide with a pen so she can improve [...] Medications are be left unchanged and enlarged physiotherapy aide on tools and utensils and be used as well as the judicious use of warmth and when absolutely necessary I will consider an intra-articular cortisone injection into the basilar thumb joint on the left side. Assessment & Plan (03/12/2017 9:33 AM EST): Symptomatic painful left first carpometacarpal osteoarthritis does not need any injection today. She will continue to use large physiotherapy aide on tools and utensils and local warmth and call me if she needs an injection into the basilar thumb joint. Greater than 50% of this 28 minute visit was spent in mhwp-[id number] conversation with the patient going over her [...] 50% of this 20-minute visit was spent pfpl-vm-[id number] conversation with the patient and her present coordinating my care with out of her primary care physician as well as her orthopedic surgeon and paint booth operator. Assessment & Plan (04/08/2019 5:09 PM EST): [...] not think she needs that type of / narcotic coverage. I think would be more [...] of this 29-minute visit was spent in xgqx-mb-achc conversation with the patient and her and all their questions were answered. We will try to coordinate my care with out of her director of global talent and primary care physician. Assessment & Plan [...] of this 29-minute visit was spent in [id number]-[id number] conversation with the patient and her present [...] her primary care physician but with a director of global talent as well. When she is more stable then she may consider having another epidural injection would also consider a consultation with a neurosurgeon to see if she is a surgical candidate for decompressive laminectomy. All of her questions were answered. Greater than 50% of this 28-minute visit was spent in bnrz-wl-wwwq conversation with the patient going over her [...] this 28 minute visit was spent in jfdm-jm-fgav conversation going over the natural history and treatment of lumbar radiculopathy as well as the risks and benefits of her current medication. Assessment & Plan (06/15/2017 3:43 PM EST): Chronic, stable, without exacerbation. Core strengthening and weight reduction are essential for the treatment of this. This was discussed in detail. Greater than 50% of this 28 minute visit was spent in mnst-xc-elul conversation with the patient with her present going over her recent operation, the natural history of cervical nerve root compression and the treatment of her hand osteoarthritis and low back pain. Assessment & Plan (03/12/2017 9:32 AM EST): Treatment will be periodic visits to the paint booth operator 1 severe for either fluoroscopically guided lumbar [...] & Plan (11/05/2018 2:53 PM EDT): Resolved Encounters Date Type Department Care Team Description 02/27/2025 Orders Only [facility] Cardiology [address] [place] [address] Leni Gramajo CNP 02/20/2025 11:53 AM EDT - 02/20/2025 11:59 PM EDT Hospital Encounter [facility] Phleb [address] [place] [address] Discharge Disposition: Home or Self Care 02/20/2025 Transcribe Orders [facility] [address] [place] [address] Omid Jimenes MD Acquired hypothyroidism (Primary Dx); Essential hypertension; Pure hypercholesterolemia; Acute on chronic systolic congestive heart failure 02/18/2025 2:30 PM EDT Office Visit [facility] [address] [facility], 5th Floor, [address] [place] [address] Leni Gramajo CNP Presence of prosthetic heart valve (Primary Dx); Chronic diastolic heart failure; Aortic stenosis, severe; Mitral valve insufficiency, unspecified etiology; Chronic obstructive pulmonary disease, unspecified COPD type; Type 2 diabetes mellitus without complication, without long-term current use of insulin 02/18/2025 12:48 PM EDT - 02/18/2025 11:59 PM EDT Hospital Encounter [facility] Cardiac [address] [place] [address] Emmanuel Lyman MD Discharge Disposition: Home or Self Care 09/25/2024 Procedure Pass [facility] Cardiac US [address] [place] [address] from Last 3 Months Family History Medical History Relation Comments Stroke Brother Stroke Father Atrial fibrillation Mother Atrial fibrillation Sister Relation Status Comments Brother Alive Father (Age 68) Mother (Age 97) Sister Social History Tobacco Use Types Packs/Day Years Used Date Smoking Tobacco: Former Cigarettes 1 964 1985 Smokeless Tobacco: Never Tobacco Cessation:Counseling Given: Not [...] 21% 03/17/2021 4 :55 AM EST Weight 111.1 kg (245 lb) 02/18/2025 3:11 PM EDT Height 160 cm (5' 3 ) 02/18/2025 12:48 PM EDT Body Mass Index 43.4 02/18/2025 12:48 PM EDT Plan of Treatment Upcoming Encounters Date Type Department Care Team (Late st Contact Info) Description 03/10/2025 10:40 AM EST Office Visit [facility] Rheumatology [address] [place] [address] Geraldine Jay MD, MPH [address] [facility], [address] [place] [address] [email or web address] Health Maintenance Due Date Last Done Comments HEMOGLOBIN A1C 09/01/2021 03/04/2021 DEPRESSION SCREENING 05/24/2022 05/24/2021 BLOOD PRESSURE 09/16/2024 03/19/2024 INFLUENZA VACCINE (#1) 2024 3, 01/29/2022, 01/20/2021, Additional history exists COVID-19 VACCINE ( season) 2024 02/20/2023, 01/29/2022, 07/21/2021, Additional history exists SMOKING Hx and SMOKELESS TOBACCO SCREENING 03/19/2025 03/19/2024 DIABETIC EYE EXAM 11/05/2025 11/05/2024, 10/24/2023 CREATININE LEVEL 02/20/2026 02/20/2025, , 04/02/2024, Additional history exists POTASSIUM LEVEL 02/20/2026 02/20/2025, 01/29, 12/07/2023, Additional history exists TSH LEVEL 02/20/2026 02/20/2025 Adult Td,Tdap Booster 04/05/2033 04/05/2023, 015 OSTEOPOROSIS SCREENING INITIAL (ONE-TIME) Completed 03/08/2017 ZOSTER VACCINES Completed 03/04/2018, 11/27/2017 RSV VACCINE Completed 02/04/2023 PNEUMOCOCCAL VACCINES (50+ years) Completed 04/05/2023, 02/10/2021, 06/29/2015, Additional history exists HEPATITIS A VACCINES Aged Out No long [...] this topic Medical Devices Implanted Type Area Tank Carpenter Device Identifier Shelf Expiration Date Model / Serial / Lot Accurate Neo2 Aortic Valve Implanted:Qty: 1 on 03/16/2021 by Edil Mercedes MD at [facility] N/A: Heart 03/24/2021 [id number] 06-C / [id number] / Procedures Procedure Name Priority Date/Time Associated Diagnosis Comments CBC AND DIFFERENTIAL Routine 02/20/2025 12:13 PM EDT Acquired hypothyroidism Essential hypertension Pure hypercholesterolemia Acute on chronic systolic congestive heart failure COMPREHENSIVE METABOLIC PANEL (CMP) Routine 02/20/2025 12:13 PM EDT Acquired hypothyroidism Essential hypertension Pure hypercholesterolemia Acute on chronic systolic congestive heart failure LIPID PANEL Routine 02/20/2025 12:13 PM EDT Acquired hypothyroidism Essential hypertension Pure hypercholesterolemia Acute on chronic systolic congestive heart failure TSH WITH REFLEX Routine 02/20/2025 12:13 PM EDT Acquired hypothyroidism Essential hypertension Pure hypercholesterolemia Acute on chronic systolic congestive heart failure NT-PROBNP Routine 02/18/2025 4:00 PM EDT BASIC METABOLIC PANEL (BMP) Routine 02/18/2025 4:00 PM EDT TTE COMPREHENSIVE Routine 02/18/2025 2:0 1 PM EDT Presence of prosthetic heart valve HEMOGLOBIN A1C Routine 03/04/2021 2:34 PM EDT Diabetes mellitus type 2, insulin dependent BD DXA AXIAL (SPINE) WITH HIP Routine 03/08/2017 1:14 PM EST At risk for osteoporosis from Last 3 Months or Most Recently Relevant to Health Maintenance Results * (ABNORMAL) Comprehensive metabolic panel (02/20/2025 12:13 PM EDT) SODIUM 141 133 - 146 mmol/L [facility] POTASSIUM 4.3 3.3 - 5.1 mmol/L [facility] CHLORIDE 100 96 - 108 mmol/L [facility] CO2 29 21 - 35 mmol/L [facility] BUN 34(H) 6 - 19 mg/dL [facility] CREATININE 1.40 0.5 - 1.5 mg/dL [facility] GLUCOSE 112(H) 70 - 99 mg/dL [facility] ALBUMIN 3.7(L) 3.9 - 4.8 g/dL [facility] TOTAL PROTEIN 7.4 6.5 - 8.0 g/dL [facility] CALCIUM 9.6 8.4 - 10.3 mg/dL [facility] ALKALINE PHOSPHATASE 81 39 - 117 U/L [facility] TOTAL BILIRUBIN 0.5 0.0 - 1.2 mg/dL [facility] AST 47(H) 0 - 37 U/L [facility] ALT 33 0 - 40 U/L [facility] GLOBULIN 3.7 1 - 4.8 g/dL [facility] EGFR 38(L) >59 mL/min/1.7 3m2 [facility] Comment:Estimated glomerular filtration rate calculated using the CKD-EPI refit equation. ANION GAP 16 10 - 20 mmol/L [facility] Blood 02/20/2025 12:1 3 PM EDT 02/20/2025 12:18 PM EDT Omid Jimenes MD LAB BLOOD BKR ORDERABLE S Final Result Performing Organization Address City/[facility]/ZIP Co de Phone Number [address] [address] * TSH with reflex (02/20/2025 12:13 PM EDT) TSH 2.27 0.27 - 4.20 uIU/mL [facility] Blood 02/20/2025 12:1 3 PM EDT 02/20/2025 12:18 PM EDT Omid Jimenes MD LAB BLOOD BKR ORDERABLE S Final Result Performing Organization Address City/[facility]/ZIP Co de Phone Number [address] [address] * (ABNORMAL) CBC and differential (02/20/2025 12:13 PM EDT) WBC 14.62(H) 4.00 - 11.00 K/uL [facility] RBC 4.11 4.00 - 5.20 M/uL [facility] HGB 12.9 12.0 - 16.0 g/dL [facility] HCT 41.3 36.0 - 46.0 % [facility] PLT 312 150 - 450 K/uL [facility] MCV 100.5(H) 80.0 - 100.0 fL [facility] MCH 31.4(H) 27.0 - 31.0 pg [facility] MCHC 31.2(L) 32.0 - 36.0 g/dL [facility] RDW 15.0(H) 11.5 - 14.5 % [facility] MPV 10.4 8.4 - 12.0 fL [facility] NRBC 0.00 0.00 /100 WBCs [facility] ABSOLUTE NRBC 0.00 0.00 K/uL [facility] DIFF METHOD Auto [facility] NEUTS 75.2 48.0 - 76.0 % [facility] LYMPHS 14.8(L) 18.0 - 41.0 % [facility] MONOS 8.7 4.0 - 11.0 % [facility] EOS 0.5 0.0 - 5.0 % [facility] BASOS 0.3 0.0 - 1.5 % [facility] Granulocytes, immature (%) 0.5 0.0 - 0.9 % [facility] ABSOLUTE NEUTS 10.98(H) 1.92 - 7.60 K/uL [facility] ABSOLUTE LYMPHS 2.17 0.72 - 4.10 K/uL [facility] ABSOLUTE MONOS 1.27(H) 0.16 - 1.10 K/uL [facility] ABSOLUTE EOS 0.08 0.00 - 0.50 K/uL [facility] ABSOLUTE BASOS 0.04 0.00 - 0.15 K/uL [facility] Granulocytes, immature 0.08 0.00 - 0.09 K/uL [facility] Blood 02/20/2025 12:1 3 PM EDT 02/20/2025 12:18 PM EDT us Omid Jimenes MD LAB BLOOD BKR ORDERABLE S Final Result [facility] [address] [place] [address] * (ABNORMAL) Lipid panel (02/20/2025 12:13 PM EDT) HDL 51 mg/dL [facility] Comment: Interpretation <40 mg/dL: Low HDL cholesterol (major risk factor for CHD) Greater than or equal to 60 mg/dL: High HDL cholesterol ( negative risk factor for CHD) HDL - cholesterol is affected by a number of factors, e.g. smoking, excerise, hormones, sex and age. CHOLESTEROL 147 0 - 240 mg/dL [facility] TRIGLYCERIDES 112 30 - 160 mg/dL [facility] LDL 74 50 - 129 mg/dL [facility] Comment: LDL levels in terms of risk for coronary heart disease: <100 mg/dL: Optimal 100-129 mg/dL: Near or above optimal 130-159 mg/dL: Borderline high 160-189 mg/dL: High >190 mg/dL: Very High CARDIAC RISK RATIO 2.9(L) 3.3 - 4.4 C [facility] Blood 02/20/2025 12:1 3 PM EDT 02/20/2025 12:18 PM EDT us Omid Jimenes MD LAB BLOOD BKR ORDERABLE S Final Result [address] [address] * (ABNORMAL) NT-proBNP (02/18/2025 4:00 PM EDT) NT-PROBNP 4,061(H) 0 - 1,800 pg/mL [facility] Comment: Reference Range: Age <50 years: 0-450 pg/ml Age 50-75 years: 0-900 pg/ml Age >75 years: 0-1800 pg/ml Among patients with dyspnea, NT-proBNP is highly sensitive for the detection of acute congestive heart failure. In addition, a NT-proBNP <300 pg/ml effectively rules out acute congestive heart failure, with 99% negative predictive value. Knowledge of each individual patient's NT-proBNP range may be more useful than using similar cut-points for every patient. Marked elevations in NT-proBNP levels may be observed in states other than left ventricular congestive heart failure, including: acute coronary syndromes, right heart strain/failure (including pulmonary embolism and cor pulmonae), critical illness, renal failure, atrial fibrillation, as well as advanced age. Falsely low NT-proBNP in congestive heart failure patients may be observed with increasing body-mass index. 02/18/2025 4:00 PM EDT 02/18/2025 8:17 PM EDT Leni Gramajo [facility] LAB BLOOD BKR ORDERABLES Final Result Performing Organization Address City/[facility] Co de Phone Number [address] [address] * (ABNORMAL) Basic metabolic panel (02/18/2025 4:00 PM EDT) SODIUM 141 135 - 145 mmol/L [facility] POTASSIUM 3.9 3.4 - 5.0 mmol/L [facility] CHLORIDE 100 98 - 108 mmol/L [facility] CO2 27 23 - 32 mmol/L [facility] BUN 37(H) 8 - 25 mg/dL [facility] CREATININE 1.32(H) 0.50 - 1.00 mg/dL [facility] GLUCOSE 125(H) 70 - 110 mg/dL [facility] CALCIUM 10.1 8.5 - 10.5 mg/dL [facility] EGFR 41(L) >59 mL/min/1. 73m2 [facility] Comment:Estimated glomerular filtration rate calculated using the CKD-EPI refit equation. ANION GAP 14 3 - 17 mmol/L [facility] 02/18/2025 4:00 PM EDT 02/18/2025 8:15 PM EDT Leni Gramajo [facility] LAB BLOOD BKR ORDERABLES Final Result Performing Organization Address [facility] Co de Phone Number [address] [address] * TTE COMPREHENSIVE (02/18/2025 2:01 PM EDT) Body Surface Area 2.16 m2 Left Ventricle Internal Diameter End Diastole 49 37 - 52 mm Interventricular Septum Thickness 12 6 - 11 mm Aortic Sinus Diameter 26 <40 mm Left Ventricle Internal Diameter End Systole 38 <35 mm Left Ventricular Posterior Wall Thickness 12 6 - 11 mm Ascending Aorta Diameter 35 <36 mm Raw LV EF% 40 % Left Atrial Volume Index 32 16 - 34 mL/m2 Ejection Fraction 51 50 - 75 % Mitral Valve Peak Gradient 10 mmHg Mitral Valve Mean Gradient 4 mmHg Aortic Valve Peak Gradient 20 mmHg Aortic Valve Mean Gradient 10 mmHg Relative Wall Thickness 0.49 0.22 - 0.42 Left Ventricle indexed to BSA 104.8 g/m2 Left Ventricular Outflow Tract Velocity 1.0 m/s Right Ventricle Basal Diameter 40 25 - 41 mm Right Ventricle Wall Thickness Max 10 1 - 5 mm Left Atrial Volume 70 mL Right Atrium Dimension Superior-Inferior 55 mm Right Atrium Index Superior-Inferior 25 19 - 30 mm/m2 Right Atrium Dimension Medial-Lateral 35 mm Right Atrium Dimension Medial-Lateral 16 13 - 25 mm/m2 Aortic Valve Prosthetic Peak Gradient 20 mmHg Aortic Valve Prosthetic Mean Gradient 10 mmHg Aortic Valve Sinus Index by BSA 12 mm/m2 Ascending Aorta Index 16 mm/m2 Mitral Valve Prosthetic Peak Gradient 10 mmHg Mitral Valve Prosthetic Mean Gradient 4 mmHg Mitral Valve Gradient HR 77 bpm Tricuspid Valve Peak Velocity 3.3 m/s Right Ventricle to Right Atrium Pressure Gradient 44 mmHg Right Ventricle Peak Systolic Pressure (Assuming RAP 10) 54 mmHg MGB CV ECHO TV RVSP (ASSUMING RAP OF 5) 49 mmHg RVSP (Exclusive of RAP) 44 mmHg Pulmonary Artery Main - Dimension 31 mm Pulmonary Artery Right - Dimension 21 mm Pulmonary Artery Left - Dimension 24 mm Ascending Aorta Index 16 mm Aortic Sinus Index 12 mm Ascending Aorta Diameter 16 mm Aortic Valve Sinus Index 1 12 19 - 27 mm AO ASC DIAM BSA INDEX 16.20 Right Atrium Dimension Medial-Lateral 16 mm/m2 Right Atrium Index Superior-Inferior 25 mm/m2 Anatomical Region Laterality Modality Heart Ultrasound Narrative 02/20/2025 8:27 AM EDT Normal LV size. LV systolic function is low normal. There is LVH. The estimated LVEF is 51%. The RV is at the upper limits of normal in size. Normal RV systolic function. There is RVH. There is a well seated transcatheter AVR with a mean gradient of 10 mmHg. There is no central or paravalvular regurgitation noted. There is at least moderate to severe secondary MR. Mitral valve leaflets are diffusely thickened and there is extensive posterior MAC. The mean inflow gradient is 4 mmHg at a heart rate of 77 bpm. TR was not well visualized but appears to be mild to moderate. The RV systolic pressure was calculated at 54 mmHg. The pulmonary arteries are dilated. Left Ventricle The left ventricle is normal in size. There is symmetric hypertrophy. Left ventricular systolic function is at the lower limits of normal. The LV ejection fraction is 51% (calculated via biplane measurement). There are no wall motion abnormalities. Right Ventricle The right ventricle appears at the upper limits of normal size. There is increased wall thickness. The RV basal dimension is 40 mm. The RV wall thickness is 10 mm. There is normal right ventricular systolic function. Left Atrium The left atrium is normal in size. The left atrial volume is 70 mL. The left atrial volume index by BSA is 32 mL/m2. Right Atrium The right atrium is normal in size. The IVC is normal in size with normal inspiratory collapse. Mitral Valve There is no evidence of mitral valve prolapse. There is moderate diffuse thickening of both mitral leaflets. There is extensive posterior mitral annular calcification. There is chordal thickening present. The mitral valve peak and mean gradients are 10 mmHg and 4 mmHg respectively at 77 bpm. There is at least moderate to severe mitral regurgitation. The mechanism of mitral regurgitation is due to restricted mobility of the mitral leaflet. Tricuspid Valve The tricuspid valve is suboptimally visualized. There is mild to moderate tricuspid regurgitation. The RV systolic pressure was calculated at 54 mmHg (using TR peak velocity of 3.3 m/s and assuming an RA pressure of 10 mmHg). 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 The aortic valve peak and mean prosthetic gradients are 20 mmHg and 10 mmHg respectively. The left ventricular outflow tract velocity is 1.0 m/s. The maximal transaortic gradients were obtained in the apical 3 view. There is no aortic regurgitation. There is no paravalvular regurgitation. Pulmonic Valve There is trace pulmonic regurgitation. The main, right and left pulmonary arteries are dilated. Pericardium There is a pericardial fat pad. There is no pericardial effusion. General Findings The image quality was adequate. Comparison Findings Compared to prior TTE report on 03/19/2024, the estimated LVEF is 51 versus 60% prior. There is ongoing LVH. RVH is noted. The transcatheter AVR findings and hemodynamics are stable. Mitral regurgitation has increased to at least moderate to severe from mild prior. TR was not well-visualized on the current study but appears to be mild to moderate versus trace prior. The estimated RVSP is 54 mmHg (no adequate TR Doppler signal on the prior study). us Emmanuel Lyman MD CV ECHO ORDERABLES Final Result * (ABNORMAL) Hemoglobin A1c (03/04/2021 2:34 PM EDT) HEMOGLOBIN A1C 7.9(H) 4.3 - 5.6 % [facility] Comment:HbA1c levels 5.7-6.4 % represent pre-diabetes, indicating impaired glucose control and an increased risk of developing diabetes compared with lower HbA1c levels. The diagnostic HbA1c level for diabetes is 6.5% or greater. CALC MEAN BLD GLUC 180 mg/dL [facility] Comment: There is no established normal [...] 03/04/2021 4:27 PM EDT us Gracia Banks SCHOOL PSYCHOLOGIST LAB BLOOD BKR ORDERABLES Final Result [facility] [address] [place] [address] * BD DXA AXIAL (SPINE) WITH HIP (03/08/2017 1:14 PM EST) Anatomical Region Laterality Modality Bone Density Bone Density 03/08/2017 2:02 PM EST Impressions 03/08/2017 2:04 PM EST Normal bone mineral density at all three sites assessed. POS - [id number] Narrative 03/08/2017 2:04 PM EST COMPARISON: None [...] the right hip was calculated at 1.114 gm/bl4xvek a T-score of 1.4 falling within the WHO classification of normal.Z-score of 3.1. Total bone mineral density in the left hip was calculated at 1.062 gm/yf4ifol a T-score of 1.0 falling within the WHO classification of normal.Z-score of 2.6. IMPRESSION: Normal bone mineral density at all three sites assessed. POS - [id number] Omid Jimenes MD IM BD BONE DENSITY DEX A Final Result from Last 3 Months or Most Recently Relevant to Health Maintenance Insurance MEDICARE PART A & B [employer] MEDICARE SUPPLEMENT MEDICARE PART A & B [employer] [facility] EXTENSION MEDICARE SUPPLEMENT MEDICARE PART A & B [facility] EXTENSION MEDICARE SUPPLEMENT MEDICARE PART A & B [facility] EXTENSION MEDICARE SUPPLEMENT MEDICARE PART A & B [facility] EXTENSION MEDICARE SUPPLEMENT MEDICARE PART A & B [facility] EXTENSION MEDICARE SUPPLEMENT MEDICARE PART A & B [facility] EXTENSION MEDICARE SUPPLEMENT MEDICARE PART A & B [facility] EXTENSION MEDICARE SUPPLEMENT MEDICARE PART A & B [facility] EXTENSION MEDICARE SUPPLEMENT Advance Directives For more information, please contact: [phone] (9AM - 5PM [facility], Sunday-Sunday) Documents on File Type Date Recorded Patient Document Specialist Expl anation Healthcare Proxy 03/18/2021 4:58 PM MOLST 12/13/2018 11:23 AM dated 10/28 Durable Power of Application Tester 11/11/2018 4:23 PM * Full Code (Latest [...] Agents on File Name Relationship Healthcare Agent Nimco Alarcon Son Alternate Health care Agent (Proxy form on file) [email or web address] Nanda Fishman Spouse .Primary Health Care Agent (Proxy form on file) [phone] (Mobile) Care Teams Ballast Cleaning Operator Relationship Specialty Start Date End Date Omid Jimenes MD [address] [place] [address] Dr COBB [address] [place] [id number] PCP - General 10/28/13 Omid Jimnees MD [address] [place] [address] Dr COBB [address] [place] [address] Historical LMR Provider 02/15/17 Emmanuel Lyman MD [address] [place] [address] [id number] [place] [address] [email or web address] Dumbwaiter Operator Cardiology 11/22/20 Lizandro Guallpa MD [address] [place] [address] [id number] [place] [address] [email or web address] 03/03/21 Cameron Vital MD, MSc [address] [place] [address] [id number] [place] [address] [email or web address] Dumbwaiter Operator Cardiology 03/03/21 Additional Source Comments The information contained in this document represents components of the legal health record. It is not the complete legal health record.[facility]
--- OUTSIDE RECORDS SUMMARY | 2025-03-03 18:28 | XMS_ITS | Encounter Summary ---
Author Organization [facility] Address [address] [place] [address] Phone Care Team Providers Care Healthcare Business Analyst Name Role Phone Omid Jimenes MD Primary Care Provider Ramsey Ortez MD Unavailable [email or web address] Omid Jimenes MD Unavailable [phone] Emmanuel Lyman MD Unavailable [phone] Lizandro Guallpa MD Unavailable Cameron Vital MD, MSc Unavailable [phone] Encounter Details Date Type Department Care Team (Late st Contact Info) Description 01/12/2021 Procedure Pass [facility] Cardiac Glass Lathe Operator [address], [address] [place] [address] Social History Tobacco Use Types [...] 03/10/2025 10:40 AM EST Office Visit [facility] Rheumatology [address] [place] [address] Geraldine Jay MD, MPH [address], [address] [place] [address] [email or web address] documented as of this encounter Visit Diagnoses Not on filedocumented in this encounter Additional Health Concerns Infection Onset Date Last Indicated Resolved Time CoV-Risk 12/07/2023 12/07/2023 12/18/2023 1:22 AM EDT documented as of this encounter Care Teams Healthcare Business Analyst Relationship Specialty Start Date End Date Omid Jimenes MD [address] [place] [address] [place] [address] PCP - General 10/28/13 Ramsey Ortez MD [email or web address] Historical LMR Provider 02/15/17 03/02/21 Omid Jimenes MD [address] [place] [address] [place] [address] Historical LMR Provider 02/15/17 Emmanuel Lyman MD [address] [place] [address] [id number] [place] [address] [email or web address] [facility] Cardiology 11/22/20 Lizandro Guallpa MD [address] [place] [address] [id number] [place] [address] [email or web address] 03/03/21 Cameron Vital MD, MSc [address] [place] [address] [id number] [place] [address] [email or web address] Cardiology 03/03/21 documented as of this encounter Additional Source Comments The information contained in this document represents components of the legal health record. It is not the complete legal health record.[facility]
--- OUTSIDE RECORDS SUMMARY | 2025-03-03 18:28 | XMS_ITS | Encounter Summary ---
Author Organization [facility] Address [address] [place] [address] Phone Care Team Providers Care Hand Former Name Role Phone Omdi Jimenes MD Primary Care Provider Omid Jimenes MD Unavailable Emmanuel Lyman MD Unavailable [phone] Lizandro Guallpa MD Unavailable Cameron Vital MD, MSc Unavailable [phone] Encounter Details Date Type Department Care Team (Late st Contact Info) Description 04/06/2023 Procedure Pass [facility] Holter Lab [address], [address] [place] [address] Social History Tobacco Use Types [...] Description 03/10/2025 10:40 AM EST Office Visit [facility] Rheumatology [address] [place] [address] Geraldine Jay MD, MPH [address] [facility] [address] [place] [address] [email or web address] documented as of this encounter Visit Diagnoses Not on filedocumented in this encounter Additional Health Concerns Infection Onset Date Last Indicated Resolved Time CoV-Risk 12/07/2023 12/07/2023 12/18/2023 1:22 AM EDT Assessment Noted Time PHQ-9 Depression Total Score: 3 05/24/19 22 2:24 PM EST documented as of this encounter Care Teams Hand Former Relationship Specialty Start Date End Date Omid Jimenes MD [address] [place] [address] [place] [address] PCP - General 10/28/13 Omid Jimenes MD [address] [place] [address] [place] [address] Historical LMR Provider 02/15/17 Emmanuel Lyman MD [address] [place] [address] [id number] [place] [address] [email or web address] Assistant Kitchen Manager Cardiology 11/22/20 Lizandro Guallpa MD [address] [place] [address] [id number] [place] [address] [email or web address] 03/03/21 Cameron Vital MD, MSc [address] [place] [address] [id number] [place] [address] [email or web address] Assistant Kitchen Manager Cardiology 03/03/21 documented as of this encounter Additional Source Comments The information contained in this document represents components of the legal health record. It is not the complete legal health record.[facility]
--- OUTSIDE RECORDS SUMMARY | 2025-03-03 18:28 | XMS_ITS | Data Portability ---
Author Organization [facility], Main Office Address [address] , [address] [place] [address] Care Team Providers Care Director Heart Name Role Phone [facility] ER Assessment No assessment recorded. Plan of Treatment Reminders Order Date Submit Date Provider Last Modified By Organization Details Last Modified Time Details Appointments None record ed. Lab None record ed. Referral None record ed. Procedures None record ed. Surgeries None record ed. Imaging None record ed. Medication Orders None record ed. Patient TargetsNo targets recorded. Patient InstructionsNo instructions recorded. Reason for Referral None Reported. Problems Name Problem SNOMED Code Status Onset Date Resolution Date Notes Provider Name and Address Organization Details Recorded Time Gout 04232851 Active 2018 VIDHYA ARMSTRONG [address], [address], [place], [address], [facility] 9 15:47:02 Asthma 954746402 Active 2018 VIDHYA ARMSTRONG [address], [address], [place], [address], [facility] 9 15:48:14 Tracheomalacia 76395446 Active 2018 VIDHYA ARMSTRONG [address], [address], [place], [address], [facility] 9 15:48:25 Diastolic heart failure 507727734 Active 2018 VIDHYA ARMSTRONG [address], [address], [place], [address], [facility] 9 15:48:44 Aortic valve stenosis 04023983 Active 2018 VIDHYA ARMSTRONG [address], [address], [place], [address], [facility] 9 15:48:58 Osteoarthritis 705894065 Active 2018 VIDHYA ARMSTRONG [address], [address], [place], [address], [facility] 9 15:49:10 Diabetes mellitus 54312735 Active 2018 [address] [facility], [address], [place], [address], [facility] 9 15:49:44 Hypercholester olemia 83554989 Active 2018 VIDHYA ARMSTRONG [address] [place] [address], [address], [place], [address], [facility] 9 16:25:49 Spasm of urinary bladder 282381054 Active 2018 VIDHYA ARMSTRONG [address] [place] [address], [address], [place], [address], [facility] 9 16:27:42 Hypothyroidism 71872096 Active 2018 [address] [facility], [address], [place], [address], [facility] 9 16:33:07 Chronic obstructive pulmonary disease 10464171 Active 2018 Marc Emmanuel MD [address] [facility], [address], [place], [address], [facility] 9 13:35:26 Blood pressure above reference range 59336988 Active [address] [facility], [address], [place], [address], [facility] 9 08:21:56 Drug-induced constipation 77797250 Active 2018 VIDHYA Barba [address], [address], [place], [address], [facility] 9 10:14:26 Intestinal obstruction 42082615 Active 2018 Marc Emmanuel MD [address] [facility], [address], [place], [address], [facility] 9 14:02:29 Drug-induced hypomagnesemia 306638382 Active [address], [address], [place], [address], [facility] 9 11:25:08 Hypomagnesemia 892051989 Active 2018 [place]anche [place], [address], [place], [address], [facility] 9 11:29:28 Hypokalemia 50458663 Active [address], [facility], [place], [address], [facility] 9 11:29:30 Hypertensive disorder 18297181 Active 2018 Jumana Ba MD [address] [place] [address], [facility], [place], [address], [facility] 9 07:32:34 Gastroesophage al reflux disease 256023520 Active 2018 Jumana Ba MD [address] [place] [address], [facility], [place], [address], [facility] 9 07:37:32 Problem Notes None recorded. Medical Equipment None Reported. Allergies Allergen ID Allergen Name Allergen Category Reaction Reaction Severity Criticality Documentation Date Start Date Code Code System Note Provider Name and Address Organization Details Recorded Time 45977 Fish (substanc e) food,medi cation Not available Not available Not available 11/09/2018 77345 1005 SNOMED ARIADNE NAIDAVIDHYA FRY [address] [facility], [address], [place], [address], [facility] 9 15:41:06 94157 bacitraci n medicatio n Not available Not available Not available 11/09/2018 1291 RxNorm ARIADNEVIDHYA PAEZ [address] [facility], [address], [place], [address], [facility] 9 15:41:54 00953 beef allergeni c extract food,medi cation Not available Not available Not available 11/09/2018 01797 9 RxNorm ARIADNE OLIVIA, [employer] [address], [place], [address], [facility] 9 15:42:03 55857 keke extract food,medi cation Not available Not available Not available 11/09/2018 98436 1 RxNorm ARIADNE OLIVIA, [employer] [address] , [address], [place], [address], [facility] 9 15:42:12 97318 Lipitor medicatio n Not available Not available Not available 11/09/2018 46744 5 RxNorm ARIADNE OLIVIA, [employer] [address] , [address], [place], [address], [facility] 9 15:42:24 84486 Pravachol medicatio n Not available Not available Not available 11/09/2018 07914 3 RxNorm ARIADNE OLIVIA, [employer] [address] , [address], [place], [address], [facility] 9 15:42:42 27600 Substance with quinolone structure and antibacte rial mechanism of action (substanc e) medicatio n Not available Not available Not available 11/09/2018 64814 2000 SNOMED ARIADNE OLIVIA, [facility] [address] [facility], [address], [place], [address], [facility] 9 15:42:53 96897 Substance with sulfonami de structure and antibacte rial mechanism of action (substanc e) medicatio n Not available Not available Not available 11/09/2018 95452 8003 SNOMED ARIADNE OLIVIA, [facility] [address] , [address], [place], [address], [facility] 9 15:43:00 35950 tobramyci n medicatio n Not available Not available Not available 11/09/2018 69008 RxNorm ARIADNE OLIVIA, [employer] [address] , [address], [place], [address], [facility] 9 15:43:14 17017 melon extract food Not available Not available Not available 11/09/2018 67841 10 RxNorm ARIADNE OLIVIA, [employer] [address], [address], [place], [address], [facility] 9 15:43:21 00191 carmen extract food Not available Not available Not available 11/09/2018 47935 04 RxNorm ARIADNE OLIVIA, [employer] [address], [address], [place], [address], [facility] 9 15:43:33 Medications Not known to be on any medication Vitals Date Recorded Systolic And Diastolic Provider Name and Address Organization Details Last Updated DateTime 12/25/2018 121/78 mm[Hg] Blanche [place] [address] [facility], [address], [place], [address], [facility] 12/25/2018 08:42:28 Date Recorded Systolic And Diastolic Provider Name and Address Organization Details Last Updated DateTime 12/27/2018 133/73 mm[Hg] Blanche Wallisette [address] [facility], [address], [place], [address], [facility] 12/27/2018 11:08:02 Date Recorded Systolic And Diastolic Provider Name and Address Organization Details Last Updated DateTime 01/01/2019 133/73 mm[Hg] Jumana Ba MD [address] [facility], [address], [place], [address], [facility] 01/01/2019 07:18:18 Date Recorded Heart rate Respiratory rate Systolic And Diastolic Provider Name and Address Organization Details Last Updated DateTime 01/07/2019 96 /min 18 /min 122/64 mm[Hg] LISA BarbaP [address] [facility], [address], [place], [address], [facility] 01/07/2019 09:26:16 Social History Question Answer Notes LastModified by Organizat ion Details LastModified Time Tobacco Smoking Status Never Smoker Not Available [employer] 02/24/2020 03:13:22 Do You Have An Advance Directive? Yes FULL CODE-undecide d About Dialysis And Nutrition-may Use Hydration [id number] Information not available 02/24/2020 How Much Tobacco Do You Chew? None [id number] Information not available 02/24/2020 Do You Have A Medical Power Of Loom Operator? Yes [id number] Information not available 02/24/2020 What Was The Date Of Your Most Recent Tobacco Screening? 11/18/2018 [id number] Information not available 02/24/2020 How Much Tobacco Do You Smoke? No [id number] Information not available 02/24/2020 How Many Years Have You Smoked Tobacco? 0 [id number] Information not available 02/24/2020 Sex: Unknown Functional Status Question Answer Note LastModified by Organizat ion Details LastModified Time What is your level of alcohol consumption? None [id number] Information not available 02/24/2020 Do you or have you ever used smokeless tobacco? Never used smokeless tobacco [id number] Information not available 02/24/2020 Do you or have you ever used e-cigarettes or vape? Never used electronic cigarettes [id number] Information not available 02/24/2020 Mental Status None recorded. Family History Nothing Reported Notes:N/C Medical History No medical history recorded. Gynecological HistoryNo gynecological history recorded. Obstetrics History GPAL:G 0 P 0 0 0 0 Past Encounters Encounter ID Performer Location Encounter Start Date Encounter Closed Date Diagnosis/Indication Diagnosis SNOMED-CT Code Diagnosis ICD10 Code Diagnosis IMO Codes Diagnosis Note [id number] VIDHYA ARMSTRONG [address] [place] [address] 11/09/2018 15:39:48 11/18/2018 13:58:58 Gout 93035963 M10.49 tylenol prnallopur inol 100 mg qd to start 11/09/18col chicine 0.6 mg bidMS contin 30 mg bidoxycodo ne 5 mg q 4 hrs prn she wants oxycodone and tylenol scheduled qid-will do til sunday and then it will have to be readdresse d Asthma 766025815 J45.99 8 albuterol neb q 6 hrs prnalbuter ol inhaler q 6 hrs prnpulmico rt 0.25 mg neb qdflovent inhaler bidflonase qdipratrop ium bromide neb qidspiriva inhaler qdoxygen as neededmoni tor respirator y status Diastolic heart failure 798296819 I50.32 ASA 81 mg qddiovan 80 mg qdlasix 40 mg bidpotassi um chloride 10 meq bidmonitor weight and fluid balance Osteoarthritis 678839665 M15.0 tylenol prncymbalt a 30 mg qd to start 11/09/18neu rontin 400 mg q hsmonitor pain Diabetes mellitus 867190 09 E11.9 lantus 60 units bidSSIgluc ose check qidjanuvia 100 mg qdmetformi n 1000 mg in am and 500 mg q pmmonitor for s/s of hypo/hyper glycemia Tracheomalacia 26729802 Q32.0 ABT was discontinu ed by edison zhou up with md as needed Aortic valve stenosis 60 712185 I35.0 in historymon itor Hypercholesterolemia 136 79144 E78.2 atorvastat in 20 mg qdmonitor labs Spasm of u rinary bladder 945483994 N32.89 ditropan 5 mg tid-change d from long acting-she takes short acting and has had it this way for yearsmonit or Hypothyroidism 16949164 E03.8 levothyrox ine 75 mcg qdmonitor TSH as needed [id number] Marc Emmanuel MD [facility] [address] [place] [address] 11/11/2018 13:19:30 11/18/2018 14:02:01 Gout 21339135 M10.09 se HPInow onallopuri nol 100 mg qdcolchici ne 0.6 mg bidto f/u with rheumatolo gy of note prior doxycyclin e d/c'ed Asthenia 84268040 R53.1 PT OT eval and treatmonit or fall risk Diabetes mellitus 683419 09 E11.9 see HPInow onlantus 60 units bidthis appears to be significan t drop from prior doseinsuli n SSmetformi n 1000 mg qam, 500 mg qpmjanuvia 100 mg qdmonitor blood glucose Spasm of u rinary bladder 064562547 N32.89 ditropan 5 mg tidmonitor for sx relief Diastolic heart failure 569845056 I50.32 lasix 40 mg bidmonitor respirator y and renal statusmoni tor fluid statusadju st meds prn Hypercholesterolemia 136 93555 E78.2 lipitor 20 mg qdcontinue Hypothyroidism 03975990 E03.8 synthroid 75 mcg qdmonitor tsh prn Aortic valve stenosis 60 455568 I35.0 moderate noted on echoadded to PMH Chronic ob structive pulmonary disease 13749580 J41.1 currently stable at baselinemo nitor on current medication spulmonary consult prn if sx worsen Tracheomalacia 14067884 Q32.0 was being maintained [place] [id number] JODIE KUNZ NP [facility] [address] [place] [address] 11/12/2018 08:51:42 11/22/2018 08:57:04 Gout 19488871 M10.09 se HPInow onallopuri nol 100 mg qdcolchici ne 0.6 mg bidto f/u with rheumatolo gy 11/21 of note prior doxycyclin e d/c'ed Asthenia 61740670 R53.1 PT OT eval and treatmonit or fall risk Diabetes mellitus 494065 09 E11.9 see HPIcontinu e to reduce lantus - 60 units bid to 50 units BIDcontinu e insulin SSmetformi n 1000 mg qam, 500 mg qpmjanuvia 100 mg qdmonitor blood glucose qid Spasm of u rinary bladder 446674400 N32.89 ditropan 5 mg tidmonitor for sx relief Diastolic heart failure 448153665 I50.32 lasix 40 mg bidmonitor respirator y and renal statusmoni tor fluid statusadju st meds prn Hypercholesterolemia 136 51868 E78.2 lipitor 20 mg qdcontinue Hypothyroidism 23223896 E03.8 synthroid 75 mcg qdmonitor tsh prn Aortic valve stenosis 60 746833 I35.0 moderate noted on echoadded to PMH Chronic ob structive pulmonary disease 82392251 J41.1 currently stable at baselinemo nitor on current medication spulmonary consult prn if sx worsen Tracheomalacia 48263070 Q32.0 was being maintained on Ab priornow d/cmonitor sx Osteoarthritis 992905247 M15.9 Medication discussed with pt. and nsg.Pt. does not wish to reduce the pain medication at this time. She does not feel that she is overmedica nery at this time.Nsg. will hold scheduled oxycodone for oversedati on if needed.Mikal sandy continue to monitor.Jair shipley follow up with rheum on 11/19. [id number] Blanche SOUZA [address] [place] [address] 11/18/2018 08:13:44 11/20/2018 10:52:46 Gout 91640911 M10.49 sx managed with current regimentyl enol prnallopur inol 100 mg qd to start 11/09/18col chicine 0.6 mg bidMS contin 30 mg bidoxycodo ne 5 mg q 4 hrs prn Asthma 549046123 J45.99 8 continue regimenalb uterol neb q 6 hrs prnalbuter ol inhaler q 6 hrs prnpulmico rt 0.25 mg neb qdflovent inhaler bid ipratropiu m bromide neb qidspiriva inhaler qdoxygen as neededmoni tor respirator y status Diastolic heart failure 426961691 I50.32 appears euvolemic, continue regimenASA 81 mg qddiovan 80 mg qdlasix 40 mg bidpotassi um chloride 10 meq bidmonitor weight and fluid balance Osteoarthritis 913447932 M15.0 pt continues to report intermitte nt pain in BL shoulder.t ylenol prncymbalt a 30 mg qd to start 11/09/18neu rontin 400 mg q hsmonitor pain Diabetes mellitus 849927 09 E11.9 lantus 60 units bidSSIgluc ose check qidjanuvia 100 mg qd as noted above, will d/c metformin as pt reports she has not been on it since last fall (2018).mon itor FBS as lantus was reduced from 60 units bid to 50 units bid om 11/12 in setting of metformin in regimen.mo nitor for s/s of hypo/hyper glycemia Spasm of u rinary bladder 047070684 N32.89 ditropan 5 mg tid-change d from long acting-she takes short acting and has had it this way for years monitor Hypothyroidism 43012601 E03.8 levothyrox ine 75 mcg qdmonitor TSH as needed Nausea 474630353 R11.0 pt has reported low grade nausea since admitting to rehab. ? s/e of metformin as pt reports it was d/c'd by PCP 2/2 GI upset. will d/c and monitor [place] [id number] Neda Broussard, [employer] [facility] [address] [place] [address] 11/26/2018 07:52:24 11/28/2018 10:54:29 Gout 36644033 M10.09 allopurino l 200 mg qdcolchici ne 0.6 mg qd till 12/04 then q --Ff/u with rheumatolo gymonitor Asthenia 11117523 R53.1 continue PT OTmonitor fall risk Diabetes mellitus 953576 09 E11.9 lantus 60 units bidinsulin SSaccuchec ks mostly in the 100sjanuvi a 100 mg qdmonitor blood glucose Spasm of u rinary bladder 898823232 N32.89 ditropan 5 mg tidmonitor for sx relief Diastolic heart failure 591849519 I50.32 lasix 40 mg bidmetolaz one 5 mg --Fdiova n 80 mg qdKCL: 10 MEQ bid monitor respirator y and renal statusmoni tor fluid statuscomp ensated Hypercholesterolemia 136 05488 E78.2 lipitor 20 mg qdLFTs to be drawn 11/27 Hypothyroidism 15785830 E03.8 synthroid 75 mcg qdmonitor tsh prn Aortic valve stenosis 60 129126 I35.0 moderate noted on echoadded to PMH Chronic ob structive pulmonary disease 90249939 J41.1 spiriva 18 mcg qdmepolizu mab 100 mg sq q month at DR hart sonhorace 0.25 mg nebs qdhad f/u with pulmonolog ist who noted pt did not doxycyclin e or perforomis t anymorethe y did recommend nystatin swish and spit for thrush Tracheomalacia 11866808 Q32.0 was being maintained on Ab priornow d/cmonitor sx Blood pres sure above reference range 93500610 R03.0 Patient has an elevated BP during today's visit. Patient does not have a current hypertensi on diagnosis. Will continue to monitor (may be affected by underlying conditions ) and educate patient if appropriat e. [id number] VIDHYA [address]ba [address] [place] [address] 12/02/2018 10:03:39 12/04/2018 13:09:33 Gout 25961270 M10.09 allopurino l 200 mg qdcolchici ne 0.6 mg qd till 12/04 then q -W-Ff/u with rheumatolo gymonitor Diabetes mellitus 704938 09 E11.9 lantus 60 units bidinsulin SSaccuchec ks mostly in the 100sjanuvi a 100 mg qdmonitor blood glucose Spasm of u rinary bladder 961676156 N32.89 ditropan 5 mg tidmonitor for sx relief Diastolic heart failure 083379007 I50.32 lasix 40 mg bidmetolaz one 5 mg --Fdiova n 80 mg qdKCL: 20 MEQ bid - recheck today monitor respirator y and renal statusmoni tor fluid statuscomp ensated Hypercholesterolemia 136 87040 E78.2 lipitor 20 mg qdLFTs normal on 11/27 Hypothyroidism 42028541 E03.8 synthroid 75 mcg qdmonitor tsh prn Chronic ob structive pulmonary disease 91519144 J41.1 spiriva 18 mcg qdmepolizu mab 100 mg sq q month at DR hart sonide 0.25 mg nebs qdhad f/u with pulmonolog ist who noted pt did not doxycyclin e or perforomis t anymore Tracheomalacia 21766928 Q32.0 was being maintained on Ab priornow d/cmonitor sx Drug-induc ed constipation 10161198 K59.03 continue senna 8.6 mg bidadd lactulose 30 ml bidmonitor for effect [id number] VIDHYA Barba [address] [place] [address] 12/09/2018 08:56:22 12/11/2018 09:31:15 Drug-induced constipation 04031587 K59.03 see above Abdominal pain 10857587 R10.0 I ordered pt sent to [facility] ED for possible acute abdomen, possible obstructio n for eval and treatment [id number] Blanche SOUZA [address] [place] [address] 12/13/2018 07:58:27 12/23/2018 14:35:02 Drug-induced constipation 42514688 K59.03 see above. monitor Gout 85286238 M10.09 allopurino l 200 mg qdcolchici ne 0.6 mg qd till 8 then q -W-Ff/u with rheumatolo gymonitor Diabetes mellitus 191228 09 E11.9 lantus 60 units bidinsulin SSjanuvia 100 mg qdmonitor blood glucose Spasm of u rinary bladder 054106030 N32.89 ditropam d/c'd in acute care. monitor for sx. consider to reinstate if bowel patterns regulate and med management is indicated. Diastolic heart failure 302998085 I50.32 appears euvolemicl asix 40 mg bidmetolaz one 5 mg -W-Fdiova n 80 mg qdKCL: 20 MEQ bidmonitor fluid status, labs Hypercholesterolemia 136 78216 E78.2 lipitor 20 mg qdLFTs normal on 11/27 Hypothyroidism 54013618 E03.8 synthroid 75 mcg qdmonitor tsh prn Chronic ob structive pulmonary disease 48026488 J41.1 spiriva 18 mcg qdmepolizu mab 100 mg sq q month at DR tanner rodriguez 0.25 mg nebs qdhad f/u with pulmonolog ist no doxycyclin e or perforomis t anymore per pt request Tracheomalacia 32814595 Q32.0 was being maintained on Ab priornow d/cmonitor sx Intestinal obstruction 01183390 K56.609 see HPIpt comfortabl e, denies abdominal pain, but having loose stool with incontinen ce.oxybuty jhonny and oxycodone was on hold in acute care, oxybutynin was then d/c'd.curr ent regimen establishe d in acute care are miralax, senna 2 tabs bid, colace bidmonitor bowel patterns. [id number] MD LIBBY Mcdonald [address] [place] [address] 12/16/2018 13:56:25 12/23/2018 15:07:09 Intestinal obstruction 01576586 K56.690 see HPIcolonic ileusrespo nded to miralax q hour and enema q 2 hoursfollo wed by Deven on colace, senna, miralax to monitor fluid intakemoni tor for sx on bowel protocol Diabetes mellitus 880454 09 E11.9 lantus 60 units bidinsulin SSjanuvia 100 mg qdmonitor blood glucose Blood pres sure above reference range 93892031 R03.0 diovan 80 mg qdlasix 40 mg bidmetolaz one 5 mg t/t/s/smon itor bp and renal function Gout 75407737 M10.09 allopurino l 200 mg qdcolchici ne 0.6 mg bidto f/u with rheumatolo gy Asthenia 72112557 R53.1 PT OT eval and treatmonit or fall risk Spasm of u rinary bladder 864973572 N32.89 ditropan 5 mg tidmonitor for sx relief Diastolic heart failure 313141611 I50.32 lasix 40 mg bidmetolaz one 5 mg t/t/s/s adjust meds prnmonitor respirator y and fluid status Hypercholesterolemia 136 72708 E78.2 lipitor 20 mg qdcontinue Hypothyroidism 50807359 E03.8 synthroid 75 mcg qdmonitor tsh prn Aortic valve stenosis 60 787565 I35.0 moderate noted on prior echo [id number] Blanche [address] [place] [address] 12/25/2018 08:41:29 12/27/2018 15:33:41 Intestinal obstruction 10182516 K56.690 resolved colonic ileusrespo nded to miralax q hour and enema q 2 hoursfollo wed by Deven on colace, senna, miralax.pt reports frequency of stool is causing interrupti on of sleep and preventing her from participat ing in therapy. will d/c miralax bid, will d/c senna and colace and ad 1 tab sennaS bidmonitor for sx on bowel protocol Diabetes mellitus 545328 09 E11.9 lantus 60 units bidinsulin SSjanuvia 100 mg qdmonitor blood glucose Blood pres sure above reference range 98982895 R03.0 BP at goal, continue regimendio van 80 mg qdlasix 40 mg bidmetolaz one 5 mg t/t/s/smon itor bp and renal function Diastolic heart failure 317778751 I50.32 lasix 40 mg bidmetolaz one 5 mg t/t/s/s adjust meds prnmonitor respirator y and fluid status Asthenia 48781323 R53.1 continue PT OTmonitor fall risk Hypothyroidism 72329981 E03.8 synthroid 75 mcg qdmonitor tsh prn Nausea 159828618 R11.0 pt has reported low grade nausea since admitting to rehab.? pt taking medication s prior to breakfast. will order all morning meds, except prilosec and synthroid be taken at 9 a.m. after breakfast. Osteoarthritis 683808241 M15.0 pt continues to report intermitte nt pain in BL shoulder.t ylenol prncymbalt a 30 mg qd to start 11/09/18neu rontin 400 mg q hsconsider increase in neurontin when re-assment of above stated med changes. [id number] Blanche Diana [facility] [address] [facility] [place] [address] 12/27/2018 11:03:25 01/02/2019 11:25:33 Intestinal obstruction 19567103 K56.690 See HPIpreviou s acute care eval for colonic ileusrespo nded to miralax q hour and enema q 2 hoursfollo wed by Scott protocol adjusted just prior to being sent out to ED, and further modified in acure carenew regimen miralax daily, consider taper to three times per week if bowels moving regularly. monitor Diabetes mellitus 786259 09 E11.9 lantus 60 units bidinsulin SSjanuvia 100 mg qdmonitor blood glucose Blood pres sure above reference range 14176062 R03.0 BP elevated this visit, ? transition from acute carediovan 80 mg qdlasix 40 mg bidASAmoni tor bp and renal function Diastolic heart failure 886276450 I50.32 pt euvolemic, LS clearlasix 40 mg bidmetolaz one was d/c' d in acute care adjust meds prnmonitor respirator y and fluid status Gout 66754982 M10.09 ? colchicine contributi ng to gout. was d/c'd in acute care and allopurino l reduced to 100 mg dailyto f/u with rheumatolo gy Asthenia 93051104 R53.1 PT OT eval and treatmonit or fall risk Spasm of u rinary bladder 697816203 N32.89 ditropan 5 mg tidmonitor for sx relief Hypercholesterolemia 136 26408 E78.2 lipitor 20 mg qdcontinue Hypothyroidism 30854728 E03.8 synthroid 75 mcg qdmonitor tsh prn Aortic valve stenosis 60 418122 I35.0 moderate noted on prior echo Chest pain 54837335 R07. 9 see HPIruled out for ACS. no recurrance in acute care. pt to f/u with cards as planned. Hypokalemia 90035662 E87 .6 see HPIcontinu e PO supplement ation 20 Meq daily.lisa tor labs Hypomagnesemia 936962618 E83.42 see HPI continue magnesium oxide PO 400 mg bid monitor serum mag levels with weekly labs Depressive disorder 3548 9007 F32.89 duloxetine 30 mg PO daily.lisa tor mood and behaviors Chronic ob structive pulmonary disease 45349005 J41.1 spiriva 18 mcg qdmepolizu mab 100 mg sq q month at DR tanner rodriguez 0.25 mg nebs qdhad f/u with pulmonolog ist no doxycyclin e or perforomis t anymore per pt request Nausea [id number] R11.0 pt has reported low grade nausea since admitting to [email or web address] an d/c'd in acute care and started with compazine prn. 14234 Jumana Ba MD [address] [place] [address] 01/01/2019 07:17:27 01/03/2019 11:04:35 Hypercholesterolemia 37065607 E78.2 atorvastat in 20 mg dailywill monitor Chronic ob structive pulmonary disease 86631030 J41.1 Flovent HFA 220 mcg 1 puff bidSpiriva 1.25 mcg inhale contents of 1 capsule dailyalbut elisa HFA 2 puffs q6h prnbudeson horace vis nebulizer bidatroven t via nebulizer qidalbuter ol via nebulizer q6h prnwill monitor Osteoarthritis 158537119 M15.0 gabapentin 400 mg at hsoxycodon e 5 mg q4h prn painduloxe grant 30 mg dailyAPAP 650 mg q6h prnPT/OTwi ll monitor Hypothyroidism 61199718 E03.8 levothyrox ine 75 mcg dailywill monitor Diastolic heart failure 601596435 I50.32 furosemide 40 mg bidvalsart ran 80 mg dailywill monitor Diabetes mellitus 892960 09 E11.9 Januvia 100 mg dailyhumal og per sliding scaleLantu s 60U bidASA 81 mg dailywill monitor Gout 12434281 M10.09 allopurino l 100 mg dailywill monitor Hypertensive disorder 38 289386 I10 valsartan 80 mg dailyfuros emide 40 mg bidpotassi um chloride 20mEq bidwill monitor Gastroesop hageal reflux disease 898080094 K21.9 omeprazole 20 mg dailywill monitor [address] VIDHYA Barba [facility] [address] [place] [address] 01/07/2019 09:19:32 01/13/2019 15:06:06 Hypercholesterolemia 20797190 E78.2 atorvastat in 20 mg qhsLFTs normal on 01/01 Chronic ob structive pulmonary disease 00436036 J41.1 Flovent HFA 220 mcg 1 puff bidSpiriva 1.25 mcg inhale contents of 1 capsule dailyalbut elisa HFA 2 puffs q 6 hr prnbudeson horace vis nebulizer bidatroven t via nebulizer qidalbuter ol via nebulizer q 6 hr prnmonitor resp status Osteoarthritis 220923309 M15.0 gabapentin 400 mg at hsoxycodon e 5 mg q 4 hr prn painduloxe grant 30 mg qdAPAP 650 mg q 6 hr prn Hypothyroidism 33450790 E03.8 levothyrox ine 75 mcg dailymonit or tsh prn Diastolic heart failure 210341285 I50.32 furosemide 40 mg bidvalsart an 80 mg dailymonit or fluid status, edema Diabetes mellitus 828594 09 E11.9 Januvia 100 mg dailyhumal og per sliding scaleLantu s 60 U bidASA 81 mg dailyaccuc hecks 100s in am 100-200 in pm Gout 90867228 M10.09 allopurino l 100 mg qdmonitor for sxf/u with rheumatolo gist Hypertensive disorder 38 202522 I10 valsartan 80 mg qdfurosemi de 40 mg bidpotassi um chloride 20 mEq bidmonitor bp and labs Gastroesop hageal reflux disease 869299908 K21.9 omeprazole 20 mg qdmonitor for sx relief Drug-induc ed constipation 56547819 K59.03 miralax bidmonitor bowels [place] [address] VIDHYA Barba [address] [place] [address] 01/10/2019 09:26:53 01/13/2019 16:22:21 Drug-induced constipation 12906245 K59.03 miralax bidok to dc home today with meds and services Chronic ob structive pulmonary disease 46395873 J41.1 Flovent HFA 220 mcg 1 puff bidSpiriva 1.25 mcg inhale contents of 1 capsule dailyalbut elisa HFA 2 puffs q 6 hr prnbudeson horace vis nebulizer bidatroven t via nebulizer qidalbuter ol via nebulizer q 6 hr prnf/u with pcp on 01/14 Gout 58613830 M10.09 allopurino l 100 mg qdf/u with rheumatolo gist Hypothyroidism 69480467 E03.8 levothyrox ine 75 mcg daily Diastolic heart failure 588424235 I50.32 furosemide 40 mg bidvalsart an 80 mg dailyf/u with cardiologi st Diabetes mellitus 366255 09 E11.9 Januvia 100 mg dailyhumal og per sliding scaleLantu s 60 U bid Hypertensive disorder 38 912546 I10 valsartan 80 mg qdfurosemi de 40 mg bidpotassi um chloride 20 mEq bid Gastroesop hageal reflux disease 165630572 K21.9 omeprazole 20 mg qd Hypercholesterolemia 136 33077 E78.2 atorvastat in 20 mg qhs Osteoarthritis 599344307 M15.0 gabapentin 400 mg at [facility] oxycodone 5 mg q 4 hr prn painwrote rx for pt to fill for norco 7.5/325 mg 1 tid prn #21duloxet ine 30 mg qdAPAP 650 mg q 6 hr prn Health Concerns Section Related Observation LastModified by Organization Detai ls LastModified Time None Recorded Concern Status LastModified by Organization Details LastModified Time None Recorded Advance Directives Directive Y: FULL CODE-undecided about dialysis and nutrition-may use hydration Payers Insurance Date Sequence Insurance Name Policy Number Policy Myers Covered Member ID Myers Member ID Guarantor Name 01/13/2019 2 [facility] IN[facility] (INDEMNITY) [id number] Vy Fismhan [id number] Vy Fishman 01/01/2019 1 MEDICARE B-MD: [facility] [employer] Vy Fishman [id number] Vy Fishman Notes Date Note Type Note Provider Name and Address Organization Details Recorded Time 12/25/2018 text/html Pt is a 73 y.o female seen today for acute rounding visit. She is a recent admit from hospital presenting from SNF with severe constipation and rectal impaction having failed bowel protocol and manual disimpaction. CT positive for colonic ileus with bowel distention. GI consulted attempted sigmoidoscopy and decompression failed. Treated conservatively with miralax q hour and enema q 2 hours till good effect. Patient with recent prior hospitalization presenting after fall secondary to weakness. Eval by rheumatology at that time with uric acid > 10 treated with solu-medrol then transitioned to allopurinol 100 mg qd and colchicine restarted at 0.6 mg bid with f/u in place. Patient with a fib at baseline not maintained on AC PMH significant fora fibcopd/asthmatracheom alacia on maintainance Abdiastolic chfAS moderateOA severedm [address], [address], [place], [address], [facility] 12/25/2018 09:11:37 12/27/2018 text/html Pt is 73 y.o female sen today for initial visit. She was sent out to ED from current facility yesterday for chest discomfort. SHe was also suffering from loose stool for several days s/p obstipation. In ED, found to have neg troponins x2, EKG neg for acute changes. She was found to be hypomagnesemia and hypokalemia. Diuretics and gout meds were modified in acute care. Electrolytes replaced via IV then transitioned to PO. She was previously admitted on 12/12 from hospital presenting from SNF with severe constipation and rectal impaction having failed bowel protocol and manual disimpaction. CT positive for colonic ileus with bowel distention. GI consulted attempted sigmoidoscopy and decompression failed. Treated conservatively with miralax q hour and enema q 2 hours till good effect. Patient with recent prior hospitalization in mid October 2018 presenting after fall secondary to weakness. Eval by rheumatology at that time with uric acid > 10 treated with solu-medrol then transitioned to allopurinol 100 mg qd and colchicine restarted at 0.6 mg bid with f/u in place. 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, [address], [place], [address], [facility] 12/27/2018 11:47:51 01/01/2019 text/html ROS as noted in the HPI This 73 yo female was readmitted to [facility] 12/27/18 for continued care and rehab after [facility] admission 12/26/18-12/27/18 for chest pressure, negative troponins x3, and a reassuring EKG. She is also s/p several recent hospitalizations including one with profound electrolyte abnormalities and gout. Another recent hospitalization was due to obstipation from chronic pain medication. Abdominal CT at that time was positive for colonic ileus with bowel distention. GI consulted attempted sigmoidoscopy and decompression failed. She was treated conservatively with miralax q hour and enema q 2 hours till good effect. Medical history is remarkable for afib, COPD,tracheomalacia on maintainance antibiotics, diastolic CHF, moderate , OA, DM. MOLST: full code Jumana Ba MD [address] [facility], [address], [place], [address], [facility] 01/01/2019 07:56:11 01/07/2019 text/html 73 yo female seen for acute rounding visit. pt is hoping to go home late this week. is walking with walker. is moving her bowels most days, generally they are loose. pt went out on 12/26 for chest pain, found to have hypomagnesemia and hypokalemia. was sent over with mag ox bid and on 01/01 level was still low so we increased dose to TID. no c/o chest pain today. no concerns per nursing. pt was admit from hospital presenting from SNF with severe constipation and rectal impaction having failed bowel protocol and manual disimpaction. CT positive for colonic ileus with bowel distention. GI consulted attempted sigmoidoscopy and decompression failed. Treated conservatively with miralax q hour and enema q 2 hours till good effect. Patient with recent prior hospitalization presenting after fall secondary to weakness. Eval by rheumatology at that time with uric acid > 10 treated with solu-medrol then transitioned to allopurinol 100 mg qd and colchicine restarted at 0.6 mg bid with f/u in place. Patient with a fib at baseline not maintained on AC. Neda Broussard, VIDHYA [address] [facility], [address], [place], [address], [facility] [facility] 01/07/2019 09:50:25 01/10/2019 text/html 73 yo female seen for discharge summary. pt is walking with walker and sometimes 2 canes. is moving her bowels most days. pt went out on 12/26 for chest pain, found to have hypomagnesemia and hypokalemia. was sent over with mag ox bid and on 01/01 level was still low so we increased dose to TID. today pt says she will be taking her own magnesium that she has at home. also her commercial real estate assistant wants her to stop the oxycodone and restart hydrocodone 7.5/325 mg prn for pain. pt takes it 2-3 times a day. has an appt with her PCP on 01/14 as well as an 2 d echo same day. pt is doing so much better and is looking forward to going home. is very supportive. no concerns per nursing. pt was admit from hospital presenting from SNF with severe constipation and rectal impaction having failed bowel protocol and manual disimpaction. CT positive for colonic ileus with bowel distention. GI consulted attempted sigmoidoscopy and decompression failed. Treated conservatively with miralax q hour and enema q 2 hours till good effect. Patient with recent prior hospitalization presenting after fall secondary to weakness. Eval by rheumatology at that time with uric acid > 10 treated with solu-medrol then transitioned to allopurinol 100 mg qd and colchicine restarted at 0.6 mg bid with f/u in place. Patient with a fib at baseline not maintained on AC. VIDHYA Barba [address] [facility], [address], [place], [address], [facility] 01/10/2019 10:09:16 OBGyn Episode No OBEpisode recorded.
--- OUTSIDE RECORDS SUMMARY | 2025-03-03 18:28 | XMS_ITS | Encounter Summary ---
Author Organization [facility] Address [address] [place] [address] Phone Care Team Providers Care A Operator Name Role Phone Omid Jimenes MD Primary Care Provider Omid Jimenes MD Unavailable Emmanuel Lyman MD Unavailable [phone] Lizandro Guallpa MD Unavailable Cameron Vital MD, MSc Unavailable [phone] Encounter Details Date Type Department Care Team (Late st Contact Info) Description 12/07/2023 Procedure Pass [facility], Ct Scan - [address] [address] Social History Tobacco Use Types Packs/Day Years [...] Visit [facility] Rhe[facility] [address] [place] [address] Geraldine Jay MD, MPH [address] [facility], [address] [place] [address] [email or web address] documented as of this encounter Visit Diagnoses Not on filedocumented in this encounter Additional Health Concerns Infection Onset Date Last Indicated Resolved Time CoV-Risk 12/07/2023 12/07/2023 12/18/2023 1:22 AM EDT Assessment Noted Time PHQ-9 Depression Total Score: 3 05/24/19 22 2:24 PM EST documented as of this encounter Care Teams A Operator Relationship Specialty Start Date End Date Omid Jimenes MD [address] [place] [address] [place] [address] PCP - General 10/28/13 Omid Jimenes MD [address] [place] [address] [place] [address] Historical LMR Provider 02/15/17 Emmanuel Lyman MD [address] [place] [address] [id number] [place] [address] [email or web address] [employer] [facility] [facility] 11/22/20 Lizandro Guallpa MD [address] [place] [address] [id number] [place] [address] [email or web address] 03/03/21 Cameron Vital MD, MSc [address] [place] [address] [id number] [place] [address] [email or web address] [facility] [facility] 03/03/21 documented as of this encounter Additional Source Comments The information contained in this document represents components of the legal health record. It is not the complete legal health record.[facility]
== END 2025-03-03 16:04 | disposition home or self-care (01) ==
LOC: HO.LNP 16:03
PROVIDERS: Visit Provider Internal Medicine
DX: R79.9 Abnormal finding of blood chemistry, unspecified (principal)
CPT/HCPCS: 82565; 84520

== ENCOUNTER 2025-03-16 11:34 | Outpatient (AMB) | payer MEDICARE, OTHER, SELFPAY ==
[2025-03-16 11:53] VITALS: BP 131/97; PULSE 88; RESP 18; O2SAT 91; BMI 39.7
--- NOTE | 2025-03-16 11:53 | MHC.OFFVIS ---
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 Required: No Accompanied by: Child Allergies cephalexin (From Keflex) Allergy (Severe, Verified 03/16/25 13:05) Itching pravastatin (Pravachol) Allergy (Severe, Verified 03/16/25 13:05) cramps bacitracin Adverse Reaction (Severe, Verified 03/16/25 13:05) eye swelling dexamethasone (TobraDex) Adverse Reaction (Severe, Verified 03/16/25 13:05) redness swelling tobramycin (TobraDex) Adverse Reaction (Severe, Verified 03/16/25 13:05) redness swelling Sulfa (Sulfonamide Antibiotics) Adverse Reaction (Intermediate, Verified 03/16/25 13:05) GI upset atorvastatin (From Lipitor) Adverse Reaction (Verified 03/16/25 13:05) Unknown Beef Containing Products Adverse Reaction (Verified 03/16/25 13:05) Unknown erythromycin base Adverse Reaction (Verified 03/16/25 13:05) Unknown Penicillins (PCN) Adverse Reaction (Verified 03/16/25 13:05) Unknown sulfacetamide (From Sulfacet-R) Adverse Reaction (Verified 03/16/25 13:05) Unknown sulfur (From Sulfacet-R) Adverse Reaction (Verified 03/16/25 13:05) Unknown topiramate (From Topamax) Adverse Reaction (Verified 03/16/25 13:05) Unknown Medication List - Last Reconciled 03/16/25 by Naz Simpson LPN albuterol sulfate 90 mcg/actuation 2 puffs PO Q4H albuterol sulfate 2.5 mg (3 mL) inhalation Q4H PRN allopurinol 100 mg PO DAILY aspirin 81 mg PO DAILY atorvastatin 20 mg PO DAILY azelastine-fluticasone 137-50 mcg/spray 1 spray intranasal BID 30 days bepotastine besilate 1.5% (Bepreve) 1 drp ophthalmic (eye) DAILY PRN calcitriol mcg PO chlorhexidine gluconate 0.12% 15 mL buccal DAILY 30 days cholecalciferol (vitamin D3) (Vitamin D3) 25 mcg PO DAILY doxycycline hyclate 100 mg PO BID 10 days duloxetine 60 mg PO DAILY epinephrine 0.3 mL IM ONCE PRN ferrous sulfate (FeroSul) 325 mg PO DAILY fluticasone propionate 220 mcg/actuation 2 puffs inhalation BID gabapentin 100 mg PO .AM gabapentin 400 mg PO BEDTIME hydrocodone-acetaminophen 10-325 mg 1 tab PO BID PRN insulin glargine units subcut levothyroxine 75 mcg PO DAILY meclizine 25 mg PO BID PRN mepolizumab 100 mg subcut Q4W nystatin 1 appl topical BID omeprazole 20 mg PO DAILY potassium chloride ER 10 mEq PO BID Saccharomyces boulardii (Florastor) 250 mg PO BID sitagliptin phosphate 100 mg PO DAILY spironolactone 12.5 mg PO DAILY tiotropium bromide 1.25 mcg/actuation inhalation tirzepatide (Mounjaro) 7.5 mg subcut QWEEK torsemide 40 mg PO DAILY torsemide 60 mg PO DAILY trazodone 50 mg PO BEDTIME PRN valsartan 40 mg PO DAILY HPI HPI Pill Count: Details: History of Present Illness The patient is an 79-year-old female presenting with shoulder pain. The shoulder pain is described as being better from the knee to the front, but there are twinges in two different places on the back side. The pain is exacerbated by reaching in certain directions, although it is noted to be much improved overall. Pain Description - Onset and Timing: The pain is ongoing but has improved. - Quality and Character: Twinges in two different places on the back side of the shoulder. - Primary Location: Shoulder, with betterment from the knee to the front. - Exacerbating Factors: Reaching in certain directions. [facility] Medical History (Updated 11/27/24 @ 12:07 by Julissa Ayers APRN, DESKTOP TECHNICIAN) COPD (chronic obstructive pulmonary disease) Morbid obesity Acute systolic congestive heart failure Osteoporosis Dyspnea Chronic pain syndrome Gouty arthritis Arthritis of both glenohumeral joints Neurogenic claudication due to lumbar spinal stenosis Asthma CLEVE on CPAP Chronic restrictive lung disease Tracheitis Dyspnea Surgical History Status post cervical spinal fusion History of eyelid surgery History of knee replacement History of cholecystectomy Family History Father HTN (hypertension) Stroke Diabetes Mother Atrial fibrillation HTN (hypertension) Social History Alcohol intake: never Patient Tobacco Use Status: Former Tobacco user Tobacco use type: Cigarette Years Smoked: 20 years Second Hand Smoke Exposure: No Physical Exam Vital Signs: Last Vital Signs Pulse 88 03/16/25 11:53 Resp 18 03/16/25 11:53 BP 131/97 H 03/16/25 11:53 Pulse Ox 91 L 03/16/25 11:53 Oxygen Delivery Method Room Air 03/16/25 11:53 BMI result Body Mass Index 39.7 Assessment & Plan Assessment & Plan (1) Chronic pain syndrome: Comment: Requiring narcotic use Code(s): G89.4 - Chronic pain syndrome Category: Medical Plan Plan Patient was informed and verbally consented to the use of an ambient scribe for clinic note documentation during this visit. 1. Chronic Pain - Pill count was consistent. Vicodin refilled for next month. 2. Shoulder Pain - Plan to continue monitoring the shoulder pain and consider further interventions if necessary. Medications: Refilled hydrocodone-acetaminophen 10-325 mg Partial Fill upon patient request. 1 tab PO BID PRN 60 tabs 0RF pain Coding Level of Care Code Est Pt Level 3 (57615) Diagnoses Chronic pain syndrome G89.4
--- OUTSIDE RECORDS SUMMARY | 2025-03-16 23:53 | XMS_ITS | Data Portability ---
Author Organization [facility], Main Office Address [address] , [address] [place] [address] Care Team Providers Care Manual Plate Filler Name Role Phone [facility] ER Assessment No assessment recorded. Plan [...] and Address Organization Details Recorded Time Gout [id number] Active 2018 VIDHYA ARMSTRONG [address], [address], [place], [address], [facility] 9 15:47:02 Asthma 885387874 Active 2018 VIDHYA ARMSTRONG [address], [address], [place], [address], [facility] [employer] [facility] 9 15:48:14 Tracheomalacia 41745927 Active 2018 VIDHYA ARMSTRONG [address], [address], [place], [address], [facility] [employer] [facility] 9 15:48:25 Diastolic heart failure 398802426 Active 2018 VIDHYA ARMSTRONG [address], [address], [place], [address], [facility] [employer] 9 15:48:44 Aortic valve stenosis 63477777 Active 2018 VIDHYA ARMSTRONG [address], [address], [place], [address], [facility] 9 15:48:58 Osteoarthritis 908412946 Active 2018 VIDHYA ARMSTRONG [address], [address], [place], [address], [facility] [employer] [facility] 9 15:49:10 Diabetes mellitus 97027460 Active 2018 VIDHYA ARMSTRONG [address] [facility], [address], [place], [address], [facility] 9 15:49:44 Hypercholester olemia 27153055 Active 2018 VIDHYA ARMSTRONG [address] [place] [address], [address], [place], [address], [facility] 9 16:25:49 Spasm of urinary bladder 161740345 Active 2018 VIDHYA ARMSTRONG [address] [place] [address], [address], [place], [address], [facility] 9 16:27:42 Hypothyroidism 17055843 Active 2018 VIDHYA ARMSTRONG [address] [facility], [address], [place], [address], [facility] 9 16:33:07 Chronic obstructive pulmonary disease 99968910 Active 2018 Marc Emmanuel MD [address] [facility], [address], [place], [address], [facility] 9 13:35:26 Blood pressure above reference range 57496241 Active 2018 VIDHYA Barba [address] [facility], [address], [place], [address], [facility] 9 08:21:56 Drug-induced constipation 25287345 Active 2018 VIDHYA Barba [address], [address], [place], [address], [facility] 9 10:14:26 Intestinal obstruction 19022304 Active 2018 Marc Emmanuel MD [address] [facility], [address], [place], [address], [facility] 9 14:02:29 Drug-induced hypomagnesemia 703570273 Active [address], [address], [place], [address], [facility] 9 11:25:08 Hypomagnesemia 405446104 Active [address], [address], [place], [address], [facility] 9 11:29:28 Hypokalemia 23211001 Active [address], [facility] [address], [place], [address], [facility] 9 11:29:30 Hypertensive disorder 70348522 Active 2018 Jumana Ba MD [address] [place] [address], [facility] [address], [place], [address], [facility] 9 07:32:34 Gastroesophage al reflux disease 967979622 Active 2018 Jumana Ba MD [address] [place] [address], [facility] [address], [place], [address], [facility] 9 07:37:32 Problem Notes None recorded. Medical Equipment None Reported. Allergies Allergen ID Allergen Name Allergen Category Reaction Reaction Severity Criticality Documentation Date Start Date Code Code System Note Provider Name and Address Organization Details Recorded Time 04629 Fish (substanc e) food,medi cation Not available Not available Not available 11/09/2018 51160 1005 SNOMED ARIADNE NAIDAVIDHYA FRY [address] [facility], [address], [place], [address], [facility] 9 15:41:06 13151 bacitraci n medicatio n Not available Not available Not available 11/09/2018 1291 RxNorm ARIADNEVIDHYA PAEZ [address] [facility], [address], [place], [address], [facility] 9 15:41:54 39546 beef allergeni c extract food,medi cation Not available Not available Not available 11/09/2018 38903 9 RxNorm ARIADNE OLIVIA, LIVE SOURCE OPERATOR [address] , [address], [place], [address], [facility] 9 15:42:03 88652 keke extract food,medi cation Not available Not available Not available 11/09/2018 24163 1 RxNorm ARIADNE OLIVIA, LIVE SOURCE OPERATOR [address] , [address], [place], [address], [facility] 9 15:42:12 68482 Lipitor medicatio n Not available Not available Not available 11/09/2018 56522 5 RxNorm ARIADNE OLIVIA, LIVE SOURCE OPERATOR [address] , [address], [place], [address], [facility] 9 15:42:24 07335 Pravachol medicatio n Not available Not available Not available 11/09/2018 96237 3 RxNorm ARIADNE OLIVIA, LIVE SOURCE OPERATOR [address] , [address], [place], [address], [facility] 9 15:42:42 97034 Substance with quinolone structure and antibacte rial mechanism of action (substanc e) medicatio n Not available Not available Not available 11/09/2018 41889 2000 SNOMED ARIADNE OLIVIA, [facility] [address] [facility], [address], [place], [address], [facility] 9 15:42:53 42999 Substance with sulfonami de structure and antibacte rial mechanism of action (substanc e) medicatio n Not available Not available Not available 11/09/2018 84386 8003 SNOMED ARIADNE OLIVIA, [facility] [address] , [address], [place], [address], [facility] 9 15:43:00 30874 tobramyci n medicatio n Not available Not available Not available 11/09/2018 41946 RxNorm ARIADNE OLIVIA, LIVE SOURCE OPERATOR [address] , [address], [place], [address], [facility] [employer] [facility] 9 15:43:14 00459 melon extract food Not available Not available Not available 11/09/2018 28813 10 RxNorm ARIADNE OLIVIA, LIVE SOURCE OPERATOR [address], [address], [place], [address], [facility] [employer] [facility] 9 15:43:21 30175 carmen extract food Not available Not available Not available 11/09/2018 61582 04 RxNorm ARIADNE OLIVIA, LIVE SOURCE OPERATOR [address], [address], [place], [address], [facility] [employer] [facility] 9 15:43:33 Medications Not known to be on any medication Vitals Date Recorded Systolic And Diastolic Provider Name and Address Organization Details Last Updated DateTime 12/25/2018 121/78 mm[Hg] Blanche [place] [address] [facility], [address], [place], [address], [facility] [employer] [facility] 12/25/2018 08:42:28 Date Recorded Systolic And Diastolic Provider Name and Address Organization Details Last Updated DateTime 12/27/2018 133/73 mm[Hg] Blanche Wallisette [address] [facility], [address], [place], [address], [facility] [employer] [facility] 12/27/2018 11:08:02 Date Recorded Systolic And Diastolic Provider Name and Address Organization Details Last Updated DateTime 01/01/2019 133/73 mm[Hg] Jumana Ba MD [address] [facility], [address], [place], [address], [facility] [employer] [facility] 01/01/2019 07:18:18 Date Recorded Heart rate Respiratory rate Systolic And Diastolic Provider Name and Address Organization Details Last Updated DateTime 01/07/2019 96 /min 18 /min 122/64 mm[Hg] LISA BarbaP [address] [facility], [address], [place], [address], [facility] [employer] [facility] 01/07/2019 09:26:16 Social History Question Answer Notes LastModified by Organizat ion Details LastModified Time Tobacco Smoking Status Never Smoker Not Available [employer] 02/24/2020 03:13:22 Do You Have An Advance Directive? Yes FULL CODE-undecide d About Dialysis And Nutrition-may Use Hydration [id number] Information not available 02/24/2020 How Much Tobacco Do You Chew? None [id number] Information not available 02/24/2020 Do You Have A Medical Power Of Weight Reducing Technician? Yes [id number] Information not available 02/24/2020 What Was The Date Of Your Most Recent Tobacco Screening? 11/18/2018 [id number] Information not available 02/24/2020 How Much Tobacco Do You Smoke? No [id number] Information not available 02/24/2020 How Many Years Have You Smoked Tobacco? 0 [id number] Information not available 02/24/2020 Sex: Unknown Functional Status Question Answer Note LastModified by Organizat ion Details LastModified Time What is your level of alcohol consumption? None [id number] Information not available 02/24/2020 Do you or have you ever used smokeless tobacco? Never used smokeless tobacco [id number] Information not available 02/24/2020 Do you or have you ever used e-cigarettes or vape? Never used electronic cigarettes [id number] Information not available 02/24/2020 Mental Status None recorded. Family History Nothing Reported Notes:N/C Medical History No medical history recorded. Gynecological HistoryNo gynecological history recorded. Obstetrics History GPAL:G 0 P 0 0 0 0 Past Encounters Encounter ID Performer Location Encounter Start Date Encounter Closed Date Diagnosis/Indication Diagnosis SNOMED-CT Code Diagnosis ICD10 Code Diagnosis IMO Codes Diagnosis Note [id number] VIDHYA ARMSTRONG [address] [place] [address] 11/09/2018 15:39:48 11/18/2018 13:58:58 Gout 11846583 M10.49 tylenol prnallopur inol 100 mg qd to start 11/09/18col chicine 0.6 mg bidMS contin 30 mg bidoxycodo ne 5 mg q 4 hrs prn she wants oxycodone and tylenol scheduled qid-will do til sunday and then it will have to be readdresse d Asthma 336839660 J45.99 8 albuterol neb q 6 hrs prnalbuter ol inhaler q 6 hrs prnpulmico rt 0.25 mg neb qdflovent inhaler bidflonase qdipratrop ium bromide neb qidspiriva inhaler qdoxygen as neededmoni tor respirator y status Diastolic heart failure 973924209 I50.32 ASA 81 mg qddiovan 80 mg qdlasix 40 mg bidpotassi um chloride 10 meq bidmonitor weight and fluid balance Osteoarthritis 879960774 M15.0 tylenol prncymbalt a 30 mg qd to start 11/09/18neu rontin 400 mg q hsmonitor pain Diabetes mellitus 477332 09 E11.9 lantus 60 units bidSSIgluc ose check qidjanuvia 100 mg qdmetformi n 1000 mg in am and 500 mg q pmmonitor for s/s of hypo/hyper glycemia Tracheomalacia 98069186 Q32.0 ABT was discontinu ed by edison zhou up with md as needed Aortic valve stenosis 60 987956 I35.0 in historymon itor Hypercholesterolemia 136 04982 E78.2 atorvastat in 20 mg qdmonitor labs Spasm of u rinary bladder 218612978 N32.89 ditropan 5 mg tid-change d from long acting-she takes short acting and has had it this way for yearsmonit or Hypothyroidism 01565914 E03.8 levothyrox ine 75 mcg qdmonitor TSH as needed [id number] Marc Emmanuel MD [facility] [address] [place] [address] 11/11/2018 13:19:30 11/18/2018 14:02:01 Gout 87213859 M10.09 se HPInow onallopuri nol 100 mg qdcolchici ne 0.6 mg bidto f/u with rheumatolo gy of note prior doxycyclin e d/c'ed Asthenia 47819342 R53.1 PT OT eval and treatmonit or fall risk Diabetes mellitus 368680 09 E11.9 see HPInow onlantus 60 units bidthis appears to be significan t drop from prior doseinsuli n SSmetformi n 1000 mg qam, 500 mg qpmjanuvia 100 mg qdmonitor blood glucose Spasm of u rinary bladder 212748801 N32.89 ditropan 5 mg tidmonitor for sx relief Diastolic heart failure 794345779 I50.32 lasix 40 mg bidmonitor respirator y and renal statusmoni tor fluid statusadju st meds prn Hypercholesterolemia 136 69733 E78.2 lipitor 20 mg qdcontinue Hypothyroidism 86675308 E03.8 synthroid 75 mcg qdmonitor tsh prn Aortic valve stenosis 60 519784 I35.0 moderate noted on echoadded to PMH Chronic ob structive pulmonary disease 41412454 J41.1 currently stable at baselinemo nitor on current medication spulmonary consult prn if sx worsen Tracheomalacia 21411459 Q32.0 was being maintained [place] [id number] JODIE KUNZ NP [facility] [address] [place] [address] 11/12/2018 08:51:42 11/22/2018 08:57:04 Gout 56881685 M10.09 se HPInow onallopuri nol 100 mg qdcolchici ne 0.6 mg bidto f/u with rheumatolo gy 11/21 of note prior doxycyclin e d/c'ed Asthenia 79537132 R53.1 PT OT eval and treatmonit or fall risk Diabetes mellitus 380335 09 E11.9 see HPIcontinu e to reduce lantus - 60 units bid to 50 units BIDcontinu e insulin SSmetformi n 1000 mg qam, 500 mg qpmjanuvia 100 mg qdmonitor blood glucose qid Spasm of u rinary bladder 152247405 N32.89 ditropan 5 mg tidmonitor for sx relief Diastolic heart failure 129771694 I50.32 lasix 40 mg bidmonitor respirator y and renal statusmoni tor fluid statusadju st meds prn Hypercholesterolemia 136 16379 E78.2 lipitor 20 mg qdcontinue Hypothyroidism 39676895 E03.8 synthroid 75 mcg qdmonitor tsh prn Aortic valve stenosis 60 691022 I35.0 moderate noted on echoadded to PMH Chronic ob structive pulmonary disease 92296893 J41.1 currently stable at baselinemo nitor on current medication spulmonary consult prn if sx worsen Tracheomalacia 18881913 Q32.0 was being maintained on Ab priornow d/cmonitor sx Osteoarthritis 896531307 M15.9 Medication discussed with pt. and nsg.Pt. does not wish to reduce the pain medication at this time. She does not feel that she is overmedica nery at this time.Nsg. will hold scheduled oxycodone for oversedati on if needed.Mikal sandy continue to monitor.Jair shipley follow up with rheum on 11/19. [id number] Blanche S[address] [facility] [address] 11/18/2018 08:13:44 11/20/2018 10:52:46 Gout 49695753 M10.49 sx managed with current regimentyl enol prnallopur inol 100 mg qd to start 11/09/18col chicine 0.6 mg bidMS contin 30 mg bidoxycodo ne 5 mg q 4 hrs prn Asthma 444534537 J45.99 8 continue regimenalb uterol neb q 6 hrs prnalbuter ol inhaler q 6 hrs prnpulmico rt 0.25 mg neb qdflovent inhaler bid ipratropiu m bromide neb qidspiriva inhaler qdoxygen as neededmoni tor respirator y status Diastolic heart failure 646263687 I50.32 appears euvolemic, continue regimenASA 81 mg qddiovan 80 mg qdlasix 40 mg bidpotassi um chloride 10 meq bidmonitor weight and fluid balance Osteoarthritis 493636814 M15.0 pt continues to report intermitte nt pain in BL shoulder.t ylenol prncymbalt a 30 mg qd to start 11/09/18neu rontin 400 mg q hsmonitor pain Diabetes mellitus 188037 09 E11.9 lantus 60 units bidSSIgluc ose [...] hypo/hyper glycemia Spasm of u rinary bladder 730092286 N32.89 ditropan 5 mg tid-change d from long acting-she takes short acting and has had it this way for years monitor Hypothyroidism 90662230 E03.8 levothyrox ine 75 mcg qdmonitor TSH as needed Nausea 434621957 R11.0 pt has reported low grade nausea since admitting to rehab. ? s/e of metformin as pt reports it was d/c'd by PCP 2/2 GI upset. will d/c and monitor [place] [id number] Neda Broussard, LIVE SOURCE OPERATOR [facility] [address] [place] [address] 11/26/2018 07:52:24 11/28/2018 10:54:29 Gout 31684144 M10.09 allopurino l 200 mg qdcolchici ne 0.6 mg qd till 12/04 then q --Ff/u with rheumatolo gymonitor Asthenia 93842110 R53.1 continue PT OTmonitor fall risk Diabetes mellitus 441285 09 E11.9 lantus 60 units bidinsulin SSaccuchec ks mostly in the 100sjanuvi a 100 mg qdmonitor blood glucose Spasm of u rinary bladder 195516847 N32.89 ditropan 5 mg tidmonitor for sx relief Diastolic heart failure 759855729 I50.32 lasix 40 mg bidmetolaz one 5 mg --Fdiova n 80 mg qdKCL: 10 MEQ bid monitor respirator y and renal statusmoni tor fluid statuscomp ensated Hypercholesterolemia 136 97225 E78.2 lipitor 20 mg qdLFTs to be drawn 11/27 Hypothyroidism 67318483 E03.8 synthroid 75 mcg qdmonitor tsh prn Aortic valve stenosis 60 107088 I35.0 moderate noted on echoadded to PMH Chronic ob structive pulmonary disease 05384418 J41.1 spiriva 18 mcg qdmepolizu mab 100 mg sq q month at DR hart sonhorace 0.25 mg nebs qdhad f/u with pulmonolog ist who noted pt did not doxycyclin e or perforomis t anymorethe y did recommend nystatin swish and spit for thrush Tracheomalacia 02683844 Q32.0 was being maintained on Ab priornow d/cmonitor sx Blood pres sure above reference range 35096889 R03.0 Patient has an elevated BP during today's visit. Patient does not have a current hypertensi on diagnosis. Will continue to monitor (may be affected by underlying conditions ) and educate patient if appropriat e. [id number] VIDHYA [address]ba [address] [place] [address] 12/02/2018 10:03:39 12/04/2018 13:09:33 Gout 77562191 M10.09 allopurino l 200 mg qdcolchici ne 0.6 mg qd till 12/04 then q -W-Ff/u with rheumatolo gymonitor Diabetes mellitus 622679 09 E11.9 lantus 60 units bidinsulin SSaccuchec ks mostly in the 100sjanuvi a 100 mg qdmonitor blood glucose Spasm of u rinary bladder 345799241 N32.89 ditropan 5 mg tidmonitor for sx relief Diastolic heart failure 794572103 I50.32 lasix 40 mg bidmetolaz one 5 mg --Fdiova n 80 mg qdKCL: 20 MEQ bid - recheck today monitor respirator y and renal statusmoni tor fluid statuscomp ensated Hypercholesterolemia 136 19347 E78.2 lipitor 20 mg qdLFTs normal on 11/27 Hypothyroidism 63443929 E03.8 synthroid 75 mcg qdmonitor tsh prn Chronic ob structive pulmonary disease 95500332 J41.1 spiriva 18 mcg qdmepolizu mab 100 mg sq q month at DR hart sonide 0.25 mg nebs qdhad f/u with pulmonolog ist who noted pt did not doxycyclin e or perforomis t anymore Tracheomalacia 82760387 Q32.0 was being maintained on Ab priornow d/cmonitor sx Drug-induc ed constipation 00524057 K59.03 continue senna 8.6 mg bidadd lactulose 30 ml bidmonitor for effect [id number] VIDHYA [address]ba [address] [place] [address] 12/09/2018 08:56:22 12/11/2018 09:31:15 Drug-induced constipation 34851368 K59.03 see above Abdominal pain 90580120 R10.0 I ordered pt sent to [facility] for possible acute abdomen, possible obstructio n for eval and treatment [id number] Blanche [address] [place] [address] 12/13/2018 07:58:27 12/23/2018 14:35:02 Drug-induced constipation 64908629 K59.03 see above. monitor Gout 38999908 M10.09 allopurino l 200 mg qdcolchici ne 0.6 mg qd till 8 then q -W-Ff/u with rheumatolo gymonitor Diabetes mellitus 758861 09 E11.9 lantus 60 units bidinsulin SSjanuvia 100 mg qdmonitor blood glucose Spasm of u rinary bladder 802691733 N32.89 ditropam d/c'd in acute care. monitor for sx. consider to reinstate if bowel patterns regulate and med management is indicated. Diastolic heart failure 612617949 I50.32 appears euvolemicl asix 40 mg bidmetolaz one 5 mg -W-Fdiova n 80 mg qdKCL: 20 MEQ bidmonitor fluid status, labs Hypercholesterolemia 136 92895 E78.2 lipitor 20 mg qdLFTs normal on 11/27 Hypothyroidism 81543784 E03.8 synthroid 75 mcg qdmonitor tsh prn Chronic ob structive pulmonary disease 36499419 J41.1 spiriva 18 mcg qdmepolizu mab 100 mg sq q month at DR tanner rodriguez 0.25 mg nebs qdhad f/u with pulmonolog ist no doxycyclin e or perforomis t anymore per pt request Tracheomalacia 97868702 Q32.0 was being maintained on Ab priornow d/cmonitor sx Intestinal obstruction 12338090 K56.609 see HPIpt comfortabl e, denies abdominal pain, but having loose stool with incontinen ce.oxybuty jhonny and oxycodone was on hold in acute care, oxybutynin was then d/c'd.curr ent regimen establishe d in acute care are miralax, senna 2 tabs bid, colace bidmonitor bowel patterns. [id number] MD LIBBY Mcdonald [address] [place] [address] 12/16/2018 13:56:25 12/23/2018 15:07:09 Intestinal obstruction 75518207 K56.690 see HPIcolonic ileusrespo nded to miralax q hour and enema q 2 hoursfollo wed by Deven on colace, senna, miralax to monitor fluid intakemoni tor for sx on bowel protocol Diabetes mellitus 866197 09 E11.9 lantus 60 units bidinsulin SSjanuvia 100 mg qdmonitor blood glucose Blood pres sure above reference range 94994687 R03.0 diovan 80 mg qdlasix 40 mg bidmetolaz one 5 mg t/t/s/smon itor bp and renal function Gout 57831004 M10.09 allopurino l 200 mg qdcolchici ne 0.6 mg bidto f/u with rheumatolo gy Asthenia 98834223 R53.1 PT OT eval and treatmonit or fall risk Spasm of u rinary bladder 401447110 N32.89 ditropan 5 mg tidmonitor for sx relief Diastolic heart failure 460755639 I50.32 lasix 40 mg bidmetolaz one 5 mg t/t/s/s adjust meds prnmonitor respirator y and fluid status Hypercholesterolemia 136 83894 E78.2 lipitor 20 mg qdcontinue Hypothyroidism 01394379 E03.8 synthroid 75 mcg qdmonitor tsh prn Aortic valve stenosis 60 381818 I35.0 moderate noted on prior echo [id number] Blanche SOUZA [address] [place] [address] 12/25/2018 08:41:29 12/27/2018 15:33:41 Intestinal obstruction 95606621 K56.690 resolved colonic ileusrespo nded to miralax q hour and enema q 2 hoursfollo wed by Deven on colace, senna, miralax.pt reports frequency of stool is causing interrupti on of sleep and preventing her from participat ing in therapy. will d/c miralax bid, will d/c senna and colace and ad 1 tab sennaS bidmonitor for sx on bowel protocol Diabetes mellitus 658212 09 E11.9 lantus 60 units bidinsulin SSjanuvia 100 mg qdmonitor blood glucose Blood pres sure above reference range 86935093 R03.0 BP at goal, continue regimendio van 80 mg qdlasix 40 mg bidmetolaz one 5 mg t/t/s/smon itor bp and renal function Diastolic heart failure 101132759 I50.32 lasix 40 mg bidmetolaz one 5 mg t/t/s/s adjust meds prnmonitor respirator y and fluid status Asthenia 74198645 R53.1 continue PT OTmonitor fall risk Hypothyroidism 84881868 E03.8 synthroid 75 mcg qdmonitor tsh prn Nausea 102692710 R11.0 pt has reported low grade nausea since admitting to rehab.? pt taking medication s prior to breakfast. will order all morning meds, except prilosec and synthroid be taken at 9 a.m. after breakfast. Osteoarthritis 700934076 M15.0 pt continues to report intermitte nt pain in BL shoulder.t ylenol prncymbalt a 30 mg qd to start 11/09/18neu rontin 400 mg q hsconsider increase in neurontin when re-assment of above stated med changes. [id number] Blanche Diana [facility] [address] [facility] [place] [address] 12/27/2018 11:03:25 01/02/2019 11:25:33 Intestinal obstruction 33759838 K56.690 See HPIpreviou s acute care eval for colonic ileusrespo nded to miralax q hour and enema q 2 hoursfollo wed by Scott protocol adjusted just prior to being sent out to ED, and further modified in acure carenew regimen miralax daily, consider taper to three times per week if bowels moving regularly. monitor Diabetes mellitus 160431 09 E11.9 lantus 60 units bidinsulin SSjanuvia 100 mg qdmonitor blood glucose Blood pres sure above reference range 99678550 R03.0 BP elevated this visit, ? transition from acute carediovan 80 mg qdlasix 40 mg bidASAmoni tor bp and renal function Diastolic heart failure 368518153 I50.32 pt euvolemic, LS clearlasix 40 mg bidmetolaz one was d/c' d in acute care adjust meds prnmonitor respirator y and fluid status Gout 72712372 M10.09 ? colchicine contributi ng to gout. was d/c'd in acute care and allopurino l reduced to 100 mg dailyto f/u with rheumatolo gy Asthenia 07202661 R53.1 PT OT eval and treatmonit or fall risk Spasm of u rinary bladder 750342304 N32.89 ditropan 5 mg tidmonitor for sx relief Hypercholesterolemia 136 44570 E78.2 lipitor 20 mg qdcontinue Hypothyroidism 91722396 E03.8 synthroid 75 mcg qdmonitor tsh prn Aortic valve stenosis 60 181164 I35.0 moderate noted on prior echo Chest pain 69570125 R07. 9 see HPIruled out for ACS. no recurrance in acute care. pt to f/u with cards as planned. Hypokalemia 96758500 E87 .6 see HPIcontinu e PO supplement ation 20 Meq daily.lisa tor labs Hypomagnesemia 273124235 E83.42 see HPI continue magnesium oxide PO 400 mg bid monitor serum mag levels with weekly labs Depressive disorder 3548 9007 F32.89 duloxetine 30 mg PO daily.lisa tor mood and behaviors Chronic ob structive pulmonary disease 75024181 J41.1 spiriva 18 mcg qdmepolizu mab 100 mg sq q month at DR tanner rodriguez 0.25 mg nebs qdhad f/u with pulmonolog ist no doxycyclin e or perforomis t anymore per pt request Nausea [id number] R11.0 pt has reported low grade nausea since admitting to rehab.zofr an d/c'd in acute care and started with compazine prn. [id number] Jumana Ba MD [address] [place] [address] 01/01/2019 07:17:27 01/03/2019 11:04:35 Hypercholesterolemia 37054693 E78.2 atorvastat in 20 mg dailywill monitor Chronic ob structive pulmonary disease 78036308 J41.1 Flovent HFA 220 mcg 1 puff bidSpiriva 1.25 mcg inhale contents of 1 capsule dailyalbut elisa HFA 2 puffs q6h prnbudeson horace vis nebulizer bidatroven t via nebulizer qidalbuter ol via nebulizer q6h prnwill monitor Osteoarthritis 413449351 M15.0 gabapentin 400 mg at hsoxycodon e 5 mg q4h prn painduloxe grant 30 mg dailyAPAP 650 mg q6h prnPT/OTwi ll monitor Hypothyroidism 24375766 E03.8 levothyrox ine 75 mcg dailywill monitor Diastolic heart failure 965910733 I50.32 furosemide 40 mg bidvalsart ran 80 mg dailywill monitor Diabetes mellitus 908703 09 E11.9 Januvia 100 mg dailyhumal og per sliding scaleLantu s 60U bidASA 81 mg dailywill monitor Gout 87324034 M10.09 allopurino l 100 mg dailywill monitor Hypertensive disorder 38 154558 I10 valsartan 80 mg dailyfuros emide 40 mg bidpotassi um chloride 20mEq bidwill monitor Gastroesop hageal reflux disease 318276563 K21.9 omeprazole 20 mg dailywill monitor 69667 VIDHYA Barba [address] [place] [address] 01/07/2019 09:19:32 01/13/2019 15:06:06 Hypercholesterolemia 65677205 E78.2 atorvastat in 20 mg qhsLFTs normal on 01/01 Chronic ob structive pulmonary disease 89192065 J41.1 Flovent HFA 220 mcg 1 puff bidSpiriva 1.25 mcg inhale contents of 1 capsule dailyalbut elisa HFA 2 puffs q 6 hr prnbudeson horace vis nebulizer bidatroven t via nebulizer qidalbuter ol via nebulizer q 6 hr prnmonitor resp status Osteoarthritis 154183118 M15.0 gabapentin 400 mg at hsoxycodon e 5 mg q 4 hr prn painduloxe grant 30 mg qdAPAP 650 mg q 6 hr prn Hypothyroidism 71335232 E03.8 levothyrox ine 75 mcg dailymonit or tsh prn Diastolic heart failure 390560056 I50.32 furosemide 40 mg bidvalsart an 80 mg dailymonit or fluid status, edema Diabetes mellitus 965705 09 E11.9 Januvia 100 mg dailyhumal og per sliding scaleLantu s 60 U bidASA 81 mg dailyaccuc hecks 100s in am 100-200 in pm Gout 07193861 M10.09 allopurino l 100 mg qdmonitor for sxf/u with rheumatolo gist Hypertensive disorder 38 793438 I10 valsartan 80 mg qdfurosemi de 40 mg bidpotassi um chloride 20 mEq bidmonitor bp and labs Gastroesop hageal reflux disease 552260914 K21.9 omeprazole 20 mg qdmonitor for sx relief Drug-induc ed constipation 65731630 K59.03 miralax bidmonitor bowels [place] [address] VIDHYA Barba [address] [place] [address] 01/10/2019 09:26:53 01/13/2019 16:22:21 Drug-induced constipation 12002797 K59.03 miralax bidok to dc home today with meds and services Chronic ob structive pulmonary disease 82799765 J41.1 Flovent HFA 220 mcg 1 puff bidSpiriva 1.25 mcg inhale contents of 1 capsule dailyalbut elisa HFA 2 puffs q 6 hr prnbudeson horace vis nebulizer bidatroven t via nebulizer qidalbuter ol via nebulizer q 6 hr prnf/u with pcp on 01/14 Gout 20028246 M10.09 allopurino l 100 mg qdf/u with rheumatolo gist Hypothyroidism 91860353 E03.8 levothyrox ine 75 mcg daily Diastolic heart failure 017363620 I50.32 furosemide 40 mg bidvalsart an 80 mg dailyf/u with cardiologi st Diabetes mellitus 492865 09 E11.9 Januvia 100 mg dailyhumal og per sliding scaleLantu s 60 U bid Hypertensive disorder 38 111707 I10 valsartan 80 mg qdfurosemi de 40 mg bidpotassi um chloride 20 mEq bid Gastroesop hageal reflux disease 253258189 K21.9 omeprazole 20 mg qd Hypercholesterolemia 136 62696 E78.2 atorvastat in 20 mg qhs Osteoarthritis 134041597 M15.0 gabapentin 400 mg at [facility] oxycodone 5 mg q 4 hr prn [...] Myers Member ID Guarantor Name 01/13/2019 2 [facility] INDEMNITY PLAN (INDEMNITY) [id number] Vy Fishman [id number] Vy Fishman 01/01/2019 1 MEDICARE [place]: [facility] [employer] Vy Fishman [id number] Vy Fishman Notes Date Note Type [...] alacia on maintainance Abdiastolic chfAS moderateOA severedm [address], [address], [place], [address], [facility] 12/25/2018 09:11:37 12/27/2018 text/html Pt is [...] continued care and therapy Blanche Ortiz [address], [address], [place], [address], [facility] 12/27/2018 11:47:51 01/01/2019 text/html ROS as noted in the HPI This 73 yo female was readmitted to [facility] 12/27/18 for continued care and rehab after [...] MOLST: full code Jumana Ba MD [address], [address], [place], [address], [facility] 01/01/2019 07:56:11 01/07/2019 text/html 73 yo [...] maintained on AC. Neda Broussard, VIDHYA [address], [address], [place], [address], [facility] [employer] 01/07/2019 09:50:25 01/10/2019 text/html 73 yo female [...] that she has at home. also her infrastructure engineer wants her to stop the oxycodone and [...] not maintained on AC. VIDHYA Barba [address], [address], [place], [address], [facility] - [facility] 01/10/2019 10:09:16 OBGyn Episode No OBEpisode recorded.
== END 2025-03-16 12:24 | disposition home or self-care (01) ==
LOC: HO.PMC 11:34
PROVIDERS: PCP Internal Medicine; Visit Provider Internal Medicine
DX: G89.4 Chronic pain syndrome (principal); Z79.891 Long term (current) use of opiate analgesic
CPT/HCPCS: 99213

== ENCOUNTER → 2025-03-16 11:34 | Outpatient (BNVA) | payer MEDICARE, OTHER, SELFPAY | PROVIDERS: PCP Internal Medicine; Visit Provider Internal Medicine | DX: G47.33 Obstructive sleep apnea (adult) (pediatric) (principal); J98.4 Other disorders of lung; J45.40 Moderate persistent asthma, uncomplicated; M25.512 Pain in left shoulder; M25.511 Pain in right shoulder; G89.4 Chronic pain syndrome; Z99.89 Dependence on other enabling machines and devices; Z51.81 Encounter for therapeutic drug level monitoring; Z79.891 Long term (current) use of opiate analgesic | CPT/HCPCS: 99212; 99213 ==

== ENCOUNTER 2025-03-16 12:58 | Outpatient (AMB) | payer MEDICARE, OTHER, SELFPAY ==
--- NOTE | 2025-03-16 13:00 | A.OFFVIS_ITS ---
Vital Signs 03/16/25 13:01 Height 5 ft 6.25 in Weight 240 lb 4.862 oz BMI 38.5 BP 110/62 Blood Pressure Location Lt brachial Position Sitting Pulse 94 Pulse Oximetry (%) 94 Oxygen Delivery Method Room Air Intake Visit Reasons: Obstructive sleep apnea Coin Box Inspector Required: No Accompanied by: Son Allergies cephalexin (From Keflex) Allergy (Severe, Verified 03/16/25 13:05) Itching pravastatin (Pravachol) Allergy (Severe, Verified 03/16/25 13:05) cramps bacitracin Adverse Reaction (Severe, Verified 03/16/25 13:05) eye swelling dexamethasone (TobraDex) Adverse Reaction (Severe, Verified 03/16/25 13:05) redness swelling tobramycin (TobraDex) Adverse Reaction (Severe, Verified 03/16/25 13:05) redness swelling Sulfa (Sulfonamide Antibiotics) Adverse Reaction (Intermediate, Verified 03/16/25 13:05) GI upset atorvastatin (From Lipitor) Adverse Reaction (Verified 03/16/25 13:05) Unknown Beef Containing Products Adverse Reaction (Verified 03/16/25 13:05) Unknown erythromycin base Adverse Reaction (Verified 03/16/25 13:05) Unknown Penicillins (PCN) Adverse Reaction (Verified 03/16/25 13:05) Unknown sulfacetamide (From Sulfacet-R) Adverse Reaction (Verified 03/16/25 13:05) Unknown sulfur (From Sulfacet-R) Adverse Reaction (Verified 03/16/25 13:05) Unknown topiramate (From Topamax) Adverse Reaction (Verified 03/16/25 13:05) Unknown HPI Comments Details: The patient is a 79 y/o woman with a history of asthma COPD overlap syndrome. She was admitted to [facility] with worsening dyspnea symptoms. She was found to be in congestive heart failure. She was aggressively diuresed. Recently underwent an echocardiogram demonstrated diastolic dysfunction and also moderate to severe aortic stenosis did increased gradient. She did follow-up with her property loss insurance claim adjuster who recommended she undergo a right heart catheterization to assess pressures and consider a transcutaneous aortic valve replacement. At this point the patient is trying to continue recovering after her prolonged hospitalization in rehabilitation. She is off all nebulized therapy at this time. She does have her Flovent and Spiriva that she uses daily. She continues to Nucala in the allergy shots with good effect. Otherwise the patient is doing well in good spirits. She has not required the oxygen. She did follow-up with cardiology in time to have a cardiac catheterization to assess her aortic stenosis. The patient is also dealing with a questionable rotator cuff injury and will be following up with orthopedic surgery. She continues uses CPAP. The CPAP therapy continues to be affecting beneficial. 12/04/2019 Today the patient is here for pulmonary follow-up visit. Overall she is doing very well from a respiratory status. She continues on her respiratory regimen with good adherence. Has not required any rescue medicine or even her nebulizer. She continues on the Lasix medication with good volume status. No significant lower extremity edema. She continues with her allergy shots along with Nucala. Her CPAP therapy continues to be affecting beneficial. Although she is getting a lot of leaks from her mask making it difficult for her to sleep at nighttime. Once the COVID-19 infection settle she will call her [employer] company to make a date for mask clinic. She will be seeing cardiology soon regarding her aortic stenosis. At this point the patient is trying to avoid the COVID-19 infections and likely will have to plan to schedule testing for the beginning of 2020. 06/24/2020 the patient is here for pulmonary follow-up visit. The patient continues to have significant shortness of breath. Is actually gotten worse. Moderate severity. She has a hard time doing her activities of daily living. She continues with the current respiratory therapy continues with her allergy shots. She has been complaining of increasing raspiness of her voice. She is also having increased mucus production. Denies any hemoptysis. She had a back a so tracheitis in the past with significant hemoptysis. At that point her cultures are positive for Staph aureus. She has also had increased lower extremity edema. She has also has some evidence of cellulitis primarily in the right lower extremity. At this time the patient is being evaluated for potential treatment for her aortic stenosis. It appears to to be getting worse. Also, concerning for the possibility of worsening respiratory symptoms and not able to proceed with her procedure safely. She continues uses CPAP therapy. Although with the cough and sometimes is makes it difficult. At this point will treated with doxycycline to treat her underlying history of Staph tracheitis. In addition to that we will request a CT scan of the neck to better assess the trachea and see if there is any irregularities. Could also consider bronchoscopy but at this point will try to minimize semi invasive procedures. 05/23/2021 the patient is here for a pulmonary follow-up visit. The patient is status post transcatheter aortic valve replacement. The surgery went very well and she was able to be discharged from the hospital postop day 1. no complications. The meantime she is on home now. She continues on diuresis. The patient does complaint of dyspnea on exertion. She does still have a hard time walking because of her significant hip and back pain. The patient is currently working with stopping specialist regarding her significant discomfort. In the meantime she continues with respiratory medications. She also continues on the Nucala injections once a Months. She is having hard time sleeping. She was using trazodone. Then she was started on a at the present so than the trazodone was stopped. She is also on gabapentin at this time. I did talk about that she has multiple options for sleep aids. One option is to increase her gabapentin at nighttime. She states that she will follow-up with [facility] matologist regarding that since the initiated the medication. So therefore I am okay for her to continue with the as needed trazodone as long as she keeps at 50 mg. The patient has a lot of polypharmacy at this point we need to simplify her regimen. 09/22/2021 the patient is here for a pulmonary follow-up visit. Overall she has been doing okay. She does complaint of persistent dyspnea on exertion. She did follow-up with her cardiology is [place] regarding the shortness of breath. she was told that she is doing well from a cardiac status. She does have multifactorial reasons for the shortness of breath. She has significant back discomfort that keeps her from being mobile. Therefore she is decondition. She had to stop doing pulmonary rehabilitation due to her discomfort. She is currently working with pain management for her pain management. She will be undergoing intervention soon. from an asthma standpoint she has been doing well. She continues use her respiratory therapy. She has not required her rescue medication. She continues with Nucala. She also continues uses CPAP at nighttime. The CPAP therapy continues to be affecting beneficial. She does use was 4 hours a night. The patient is wondering about the chlorhexidine mouthwash. I did state that she can continue using it for the month of September specially since she is going to be undergoing a surgical procedure for her pain management. However, after she should hold off on using because he can affect her dentition. 01/23/2023 the patient is here for a pulmonary follow-up visit. She is doin g well from a respiratory status. She continues with respiratory medications. Does have dyspnea on exertion but is likely multifactorial. She does have significant back pain. She does use a cane and also has a walker. Currently she is on a wheelchair because it is difficult for her to walk in the hospital settings. She is currently being evaluated by Neurosurgery. She is not sure she is going to undergo additional surgeries for his spinal stenosis. At this point she is pretty debilitated so she is likely to consider it if it can be beneficial. In the meantime she continues with the Nucala injections. This point they appeared to be affecting beneficial when she will continue them for now. She does get allergy symptoms due to the IgE elevation but at this point she can treat the symptoms with allergy medicines. She continues use her respiratory therapy. No evidence of any laryngitis or issues with tracheal disease. She does have a CPAP and she does use it every night. The CPAP therapy continues to be affecting beneficial. She does use it for more than 4 hours a night. However, the fullface mask is causing her to get a lot of irritation and ulceration to the nasal bridge. I did provide her with an F30 mask with hopes that she could provide good enough seal for her to tolerated. Although, she does have a very tiny PT nose which makes it hard for her to get a good seal with the hybrid mask. She will try anyways at least take a break from the irritation from the nasal bridge. The patient is doing well from a respiratory status therefore the patient is able to return in 10-12 months for a follow-up visit. If he has any issues prior to that she is to call the office for an earlier assessment. 11/13/2023 the patient is here for a pulmonary follow-up visit. With heat and humidity she has had a increasing chest tightness. She has had some increasing wheezing. [id number]-[id number]-[id number] severity. She has had to use her rescue inhaler few more times a week. Although has not been bad enough for her to consider prednisone. The patient has not been taking a long-acting beta agonist. Will try to minimize her medications specially if her symptoms are transient. She does continue her fluticasone propionate inhaler. I will go ahead and resend to the pharmacy. She still continues on biologic therapy. In addition to that she continues her nasal sprays with good effect for her allergic chronic rhinitis. The patient did have a fall and she injured her right wrist. She started developing some erythema and some induration of her distal forearm. Appears to have some component of cellulitis. Therefore, will give her a prescription for doxycycline. If the areas no better worsens she needs to follow-up with her primary care doctor Or urgent care. Otherwise patient is doing well she is using her CPAP at nighttime the CPAP therapy continues to be affecting beneficial. She does use it for more than 4 hours a night. Still hard for her to walk. She does have to get assistance and she is following closely with pain management. 08/08/2024 the patient is here for a pulmonary follow-up visit. The patient overall has been doing well. She has been on the same respiratory therapy including fluticasone propionate Spiriva and also using her rescue inhaler on a regular basis. She finds that this is helpful for her. She continues on the Nucala. Seems like she tolerates the medicine well with significant limitations or palpitation. The patient has also been using her CPAP. CPAP therapy has been affecting beneficial. She does use for more than 4 hours. She has been getting it monitor by as a mask. Will go ahead and request a she bringing into the next visit so we can just make sure that the pressures are adequate. No imaging studies at this time. No antibiotics at this time. The patient is doing well will follow-up in the fall 2024. If she has any issues prior to that she will call for an earlier assessment. 03/16/2025 the patient is here for pulmonary follow-up visit. The patient overall has been doing fair although for the last couple weeks she has been having worsening cough chest congestion shortness of breath and wheezing. Faxj-st-umbaezxm severity. She does did rely a lot on her wheelchair. Does not do a lot of walking. She did have additional diuretics. Her lower extremity edema has improved. Overall she is doing okay. The patient will continue with the current respiratory therapy. Will go ahead and start her on doxycycline. If she does worsen with chest tightness and wheezing she can always call and I can send a prescription for prednisone but will try to minimize status specially with the diabetes. She is using her CPAP in the CPAP therapy has been affecting beneficial. She is getting some irritation on the nasal bridge she does have a full mask right now. She will try to just cover that up with a Band-Aid to minimize injury. [facility] Medical History (Updated 11/27/24 @ 12:07 by Julissa Ayers APRN, [employer]) COPD (chronic obstructive pulmonary disease) Morbid obesity Acute systolic congestive heart failure Osteoporosis Dyspnea Chronic pain syndrome Gouty arthritis Arthritis of both glenohumeral joints Neurogenic claudication due to lumbar spinal stenosis Asthma CLEVE on CPAP Chronic restrictive lung disease Tracheitis Dyspnea Surgical History Status post cervical spinal fusion History of eyelid surgery History of knee replacement History of cholecystectomy Family History Father HTN (hypertension) Stroke Diabetes Mother Atrial fibrillation HTN (hypertension) Social History Alcohol intake: never Patient Tobacco Use Status: Former Tobacco user Tobacco use type: Cigarette Years Smoked: 20 years Second Hand Smoke Exposure: No Review of Systems Const Denies daytime sleepiness, Denies difficulty sleeping and Denies night sweats ENT Denies change in voice, Denies hoarseness, Denies lip swelling, Reports epistaxis, Denies mouth pain, Reports nasal congestion, Reports nasal discharge, Reports post nasal drip and Denies tongue swelling Card Denies chest pain and Reports dyspnea on exertion Resp Denies chest congestion, Reports cough, Denies excessive phlegm production, Reports dyspnea on exertion and Reports wheezing GI Denies abdominal pain Musc Reports as per HPI, Reports abnormal gait, Reports back pain, Reports arthralgias, Reports limited range of motion and Reports stiffness Skin/Breast Reports erythema Neuro Denies Neuro-related abnormal movements and Reports abnormal gait Psych Denies no additional complaints Miguel/Lymph Denies easy bleeding and Denies lymphadenopathy Aller/Immun Denies lip swelling, Denies tongue swelling and Reports wheezing Physical Exam Vital Signs: Last Vital Signs Pulse 94 03/16/25 13:01 BP 110/62 03/16/25 13:01 Pulse Ox 94 03/16/25 13:01 Oxygen Delivery Method Room Air 03/16/25 13:01 BMI result Body Mass Index 38.5 Const General: alert Neck Neck: Yes normal visual inspection, Yes full ROM and Yes no lymphadenopathy Chest Chest palpation & inspection: normal inspection of the chest Resp Auscultation: rhonchi, wheezes and diminished lung sounds Cardio Rate: regular rate Rhythm: regular rhythm Heart sounds: S1 normal heart sound present and S2 normal heart sound present GI Palpation (GI): Soft to palpation and nontender Auscultation: normal bowel sounds Skin General skin exam: erythema Extrem General: No calf tenderness, No clubbing, No cyanosis and Yes edema Right upper extremity: Extremity exam: right hand Details: tenderness, warmth and swelling Assessment & Plan Assessment & Plan (1) CLEVE on CPAP: Code(s): G47.33 - Obstructive sleep apnea (adult) (pediatric); Z99.89 - Dependence on other enabling machines and devices Category: Medical (2) Chronic restrictive lung disease: Comment: Moderate severity, not much different from 2019 Code(s): J98.4 - Other disorders of lung Category: Medical (3) Asthma: Code(s): J45.909 - Unspecified asthma, uncomplicated Category: Medical Qualifiers: Asthma complication type: uncomplicated Asthma persistence: persistent Asthma severity: moderate Qualified Code(s): J45.40 - Moderate persistent asthma, uncomplicated Plan hold Flovent startSymbicort continue Spiriva Respimat 2 inhalations daily start Doxycycline Nebulized therapy as needed On biologic therapy with Nucala every 4 weeks Continue CPAP therapy, trial small F30 mask, will bring CPAP Use saline gel continue Dymista Trazodone as needed for sleep F/U 6-8 months, should bring her APAP Medications: New budesonide-formoterol 160-4.5 mcg/actuation (Symbicort) 2 puffs inhalation BID 10.2 grams 11RF 30 days J44.9 - Chronic obstructive pulmonary disease, unspecified doxycycline monohydrate 100 mg PO BID 28 tabs 0RF 14 days Coding Level of Care Code Est Pt Level 4 (95555) Complex EM visit Add On G2211 Diagnoses CLEVE on CPAP G47.33; Z99.89 Chronic restrictive lung disease J98.4 Moderate persistent asthma without complication J45.40 Asthma complication type: uncomplicated Asthma persistence: persistent Asthma severity: moderate Time Spent (min) 17
[2025-03-16 13:01] VITALS: BP 110/62; PULSE 94; O2SAT 94; BMI 38.5
--- OUTSIDE RECORDS SUMMARY | 2025-03-17 01:36 | XMS_ITS | Clinical Summary ---
Author Organization [facility] Facility Address [address] [address] Care Team Providers Care Customer Service Assistant Name Role Phone Omid Jimenes MD Primary Care Provider [phone] Allergies Active Allergy Reactions Criticality Noted Date Comments Atorvastatin Other (see comments) 10/30/2018 Cramps Bacitracin Other (see comments),Swelling 06/15/2017 Cephalexin 06/07/2020 Thinks it may have made rash worse Charentais Melon (Jordanian Melon) Rash Low 11/01/2018 Erythromycin Other (see [...] mouth in the morning. 9 Active Tiotropium [place] Monohydrate (Spiriva Respimat) 1.25 MCG/ACT aerosol solution [...] Active Problems Problem Noted Date Diagnosed Date Hammer toe 10/26/2022 Stage 3a chronic kidney disease 10/26/2022 [...] and able she would consider consultation in [place] right now she feels that the pain [...] for shortness of breath. Outpatient management with antique furniture reproducer Dr. Berrios. No current symptoms. Breathing comfortably. [...] & Plan: Patient has been residing at [facility] for extended care for some time now. [...] Patient is followed by by an outside clearing distribution clerk. She is been maintained on Lasix 40 [...] relief and she will contact the paintings restorer for consideration of a corticosteroid epidural injection. [...] 50% of this 20-minute visit was spent [id number] conversation with the patient and her present coordinating my care with out of her primary care physician as well as her orthopedic surgeon and paintings restorer. Last Assessment & Plan: This continues to [...] of this 29-minute visit was spent in mpuk-[id number]-[id number] conversation with the patient and her present [...] Medications are be left unchanged and enlarged milled rice broker on tools and utensils and be used [...] Dates Next Due Influenza (IM) Preservative Free 02/10/2021,1109/2016,03/20/2016,01/13/2015 Moderna SARS-COV-2 12/14/2020 Pneumococcal, Unspecified 06/29/2015,02/17/2013, 04/02/2012,11/04/2008 Family History Medical History Relation Comments Diabetes Father Hypertension Father Stroke Father Dementia Mother Heart disease Mother Relation Status Comments Father Mother Social History Tobacco Use Types Packs/Day Years Used Date Smoking Tobacco: Former Cigarettes 0 Q uit: 11/26/1985 Alcohol Use Standard Drinks/Week [...] Visit [facility] [address] [place] [address] Lewis Cohen MD [address] [place] [address] Health Maintenance Due Date Last [...] mg/dl PVNMA 02/02/2020 us [facility] Conversion LAB [id number] LICITED RESULTS Final Result PVNMA from Last 3 Months or Most Recently Relevant to Health Maintenance Insurance Medicare [facility] Medicare [facility] Care Teams Customer Service Assistant Relationship Specialty Start Date End Date Omid Jimenes MD [address] [place] [address] [id number] [place], [place] PCP - General 05/10/20
--- OUTSIDE RECORDS SUMMARY | 2025-03-17 01:36 | XMS_ITS | Clinical Summary ---
Author Organization [facility] ity Address [address] [place] [address] Care Team Providers Care Plumber Helper Name Role Phone Omid Jimenes MD [...] Depression Screening 04/30/2024 COVID-19 Vaccine ( - 2024-2 6 season) 2024 Influenza Vaccine (#1) 2024 HIB [...] age to complete this topic Care Teams Plumber Helper Relationship Specialty Start Date End Date Omid Jimenes MD PCP - General 12/21/10
--- OUTSIDE RECORDS SUMMARY | 2025-03-17 01:37 | XMS_ITS | Clinical Summary ---
Author Organization [facility] Address [facility] [place] [address] Care Team Providers Care Senior Naval Parachutist Name Role Phone Unavailable Primary Care Provider [...] Daily. Active azelastine-fluti casone (DYMISTA) 137-50 mcg/spray Fishtail, Non-Aerosol 1 puff in each nostril Active [...] puff into the lungs Twice daily. Active FB-Pji-Btcck Acid-Lutein (ESSENTIAL WOMAN 50+) 0.4-250 mg-mcg Tablet [...] Tablet 1 Active ipratropium (ATROVENT) 0.03 % Fishtail, Non-Aerosol USE 2 SPRAYS BY NASAL ROUTE [...] long-term relief and she will contact the neckties painter for consideration of a corticosteroid epidural [...] of this 29-minute visit was spent in gawm-ws-dcjj conversation with the patient and her present [...] Medications are be left unchanged and enlarged it desktop support specialist on tools and utensils and be used [...] Influenza standard series) 12/29/2024 [place] [id number] [facility] [place] [id number]
== END 2025-03-16 13:33 | disposition home or self-care (01) ==
PROVIDERS: PCP Internal Medicine; Visit Provider Hospitalist
DX: G47.33 Obstructive sleep apnea (adult) (pediatric) (principal); Z99.89 Dependence on other enabling machines and devices; J98.4 Other disorders of lung; J45.40 Moderate persistent asthma, uncomplicated
CPT/HCPCS: 99214; G2211

== ENCOUNTER 2025-04-13 11:07 | Outpatient (AMB) | payer MEDICARE, OTHER, SELFPAY ==
[2025-04-13 11:31] VITALS: BP 118/61; PULSE 63; RESP 16; O2SAT 91; BMI 38.1
--- NOTE | 2025-04-13 11:31 | MHC.OFFVIS ---
Vital Signs 04/13/25 11:31 Height 5 ft 6.25 in Weight 238 lb BMI 38.1 BP 118/61 Blood Pressure Location Lt radial Position Sitting Respiration 16 Pulse 63 Pulse Source Pulse Oximeter Pulse Oximetry (%) 91 L Oxygen Delivery Method Room Air Intake Visit Reasons: pill count Intake Note: Pt states she last took vicodin 04/13/25 @ 5:30am Machining Technician Required: No Accompanied by: Child Allergies cephalexin (From Keflex) Allergy (Severe, Verified 04/13/25 11:34) Itching pravastatin (Pravachol) Allergy (Severe, Verified 04/13/25 11:34) cramps bacitracin Adverse Reaction (Severe, Verified 04/13/25 11:34) eye swelling dexamethasone (TobraDex) Adverse Reaction (Severe, Verified 04/13/25 11:34) redness swelling tobramycin (TobraDex) Adverse Reaction (Severe, Verified 04/13/25 11:34) redness swelling Sulfa (Sulfonamide Antibiotics) Adverse Reaction (Intermediate, Verified 04/13/25 11:34) GI upset atorvastatin (From Lipitor) Adverse Reaction (Verified 04/13/25 11:34) Unknown Beef Containing Products Adverse Reaction (Verified 04/13/25 11:34) Unknown erythromycin base Adverse Reaction (Verified 04/13/25 11:34) Unknown Penicillins (PCN) Adverse Reaction (Verified 04/13/25 11:34) Unknown sulfacetamide (From Sulfacet-R) Adverse Reaction (Verified 04/13/25 11:34) Unknown sulfur (From Sulfacet-R) Adverse Reaction (Verified 04/13/25 11:34) Unknown topiramate (From Topamax) Adverse Reaction (Verified 04/13/25 11:34) Unknown Medication List - Last Reconciled 04/13/25 by Naz Simpson LPN albuterol sulfate 90 mcg/actuation 2 puffs PO Q4H albuterol sulfate 2.5 mg (3 mL) inhalation Q4H PRN allopurinol 100 mg PO DAILY aspirin 81 mg PO DAILY atorvastatin 20 mg PO DAILY azelastine-fluticasone 137-50 mcg/spray 1 spray intranasal BID 30 days bepotastine besilate 1.5% (Bepreve) 1 drp ophthalmic (eye) DAILY PRN budesonide-formoterol 160-4.5 mcg/actuation (Symbicort) 2 puffs inhalation BID 30 days calcitriol mcg PO chlorhexidine gluconate 0.12% 15 mL buccal DAILY 30 days cholecalciferol (vitamin D3) (Vitamin D3) 25 mcg PO DAILY doxycycline monohydrate 100 mg PO BID 14 days duloxetine 60 mg PO DAILY epinephrine 0.3 mL IM ONCE PRN fluticasone propionate 220 mcg/actuation 2 puffs inhalation BID gabapentin 100 mg PO .AM gabapentin 400 mg PO BEDTIME hydrocodone-acetaminophen 10-325 mg 1 tab PO BID PRN insulin glargine units subcut levothyroxine 75 mcg PO DAILY meclizine 25 mg PO BID PRN mepolizumab 100 mg subcut Q4W nystatin 1 appl topical BID omeprazole 20 mg PO DAILY potassium chloride ER 10 mEq PO BID Saccharomyces boulardii (Florastor) 250 mg PO BID spironolactone 12.5 mg PO DAILY tiotropium bromide 1.25 mcg/actuation inhalation tirzepatide (Mounjaro) 7.5 mg subcut QWEEK torsemide 40 mg PO DAILY torsemide 60 mg PO DAILY trazodone 50 mg PO BEDTIME PRN valsartan 40 mg PO DAILY HPI Comments Details: History of Present Illness The patient is an 79 year old female presenting for a pill count. She reports recent weight loss, which has led to an improvement in her pain levels. She has been experiencing constipation, for which she uses MiraLax and Senokot. She reports cutting back on her unspecified pain medication due to this issue, which explains why her pill count is higher than expected. She also recalls experiencing significant nausea in the past when she was taking doxycycline. The patient's medical history includes type 2 diabetes, for which she takes Mounjaro. Her fasting morning blood glucose levels are consistently less than 100 mg/dL, ranging from 72 to below 100. She has a history of hypokalemia, which was managed by decreasing her torsemide dose by 20 mg and starting spironolactone 12.5 mg. She eats bananas to help with her potassium levels. Pain Description - Alleviating Factors: The patient reports that recent weight loss has helped decrease her pain. - Current Status: Pain has not been as severe recently. Results - Pill Count: The patient possessed 51 pills, where the expected count was 46. - Labs: Patient-reported morning blood glucose levels are between 72 and 100 mg/dL. Physical Exam - General: A medication pill count was performed and was deemed consistent. Pain Management - Analgesia: The patient notes that her pain has improved recently following weight loss. - Adverse Effects: The patient experienced constipation, which prompted her to reduce her pain medication intake. - Aberrant Drug-Related Behaviors: The patient's pill count was 51, which was 5 more than the expected 46. - She attributed this to taking less medication due to constipation; this was deemed acceptable. [facility] Medical History (Updated 11/27/24 @ 12:07 by Julissa Ayers APRN, CHANGE MANAGEMENT MANAGER) COPD (chronic obstructive pulmonary disease) Morbid obesity Acute systolic congestive heart failure Osteoporosis Dyspnea Chronic pain syndrome Gouty arthritis Arthritis of both glenohumeral joints Neurogenic claudication due to lumbar spinal stenosis Asthma CLEVE on CPAP Chronic restrictive lung disease Tracheitis Dyspnea Surgical History Status post cervical spinal fusion History of eyelid surgery History of knee replacement History of cholecystectomy Family History Father HTN (hypertension) Stroke Diabetes Mother Atrial fibrillation HTN (hypertension) Social History Alcohol intake: never Patient Tobacco Use Status: Former Tobacco user Tobacco use type: Cigarette Years Smoked: 20 years Second Hand Smoke Exposure: No Physical Exam Exam Exam: Vital Signs: Last Vital Signs Pulse 63 04/13/25 11:31 Resp 16 04/13/25 11:31 BP 118/61 04/13/25 11:31 Pulse Ox 91 L 04/13/25 11:31 Oxygen Delivery Method Room Air 04/13/25 11:31 BMI result Body Mass Index 38.1 Assessment & Plan Assessment & Plan (1) Chronic pain syndrome: Comment: Requiring narcotic use Code(s): G89.4 - Chronic pain syndrome Category: Medical Plan Patient was informed and verbally consented to the use of an ambient scribe for clinic note documentation during this visit. 1. Chronic Pain Management - The patient's pill count was found to be consistent with her report of taking less medication, with 51 pills remaining against an expected 46. - The current pain management plan will be continued with no changes. - A prescription refill will be submitted around May 08. 2. Constipation - The patient will continue to use MiraLax and Senokot as needed. - The patient was advised to incorporate figs into her diet, which may also help with potassium intake. Discussion Notes I confirmed the patient was present for her pill count. The pill count was 51, when it was expected to be 46; I informed the patient this was acceptable as we are primarily concerned with undercounts. We discussed her issues with constipation, and I recommended she try adding figs to her diet as a natural remedy. I noted that figs also contain potassium, which would be beneficial given her history. I will submit a refill for her prescription to be available around May 08. No changes were made to her current plan of care. Patient Instructions - We will send a refill for your pain medication to your pharmacy. It should be ready around May 08. - To help with constipation, it is recommended that you add figs to your diet. - These also contain potassium which is good for you. - Continue taking your other medications as prescribed by your other doctors. - Continue to check your blood sugars as you have been. Medications: Refilled hydrocodone-acetaminophen 10-325 mg Partial Fill upon patient request. 1 tab PO BID PRN 60 tabs 0RF pain Coding Level of Care Code Est Pt Level 3 (39247) Diagnoses Chronic pain syndrome G89.4
== END 2025-04-13 12:01 | disposition home or self-care (01) ==
LOC: HO.PMC 11:08
PROVIDERS: PCP Internal Medicine; Visit Provider Internal Medicine
DX: G89.4 Chronic pain syndrome (principal)
CPT/HCPCS: 99213

== ENCOUNTER → 2025-04-13 11:07 | Outpatient (BNVA) | payer MEDICARE, OTHER, SELFPAY | PROVIDERS: PCP Internal Medicine; Visit Provider Internal Medicine | DX: R63.4 Abnormal weight loss (principal); G89.4 Chronic pain syndrome; K59.00 Constipation, unspecified; R11.0 Nausea; Z51.81 Encounter for therapeutic drug level monitoring; Z79.899 Other long term (current) drug therapy | CPT/HCPCS: 99212 ==